=== PATIENT | female | born 1960 | race Caucasian/White ===

== ENCOUNTER 2020-02-13 12:57 | Outpatient (REF) | payer MEDICAID, SELFPAY ==
--- NOTE | 2020-02-13 | CT_ITS ---
EXAMINATION: CT CHEST WITHOUT CONTRAST CLINICAL INFORMATION: Right upper lobe lung cancer COMPARISON: Previous chest x-ray October 2019 and chest CTA August 1999 and TECHNIQUE: Multidetector volumetric CT imaging of the chest was done. Axial MIP volume rendering provided. Sagittal and coronal reformatted images were obtained. This CT examination was performed using dose optimization techniques as appropriate, variously including the following: *Automated exposure control *Adjustment of mA and/or kV according to patient size (this includes techniques or standardized protocols for targeted exams where dose is matched to indication/reason for exam; i.e. extremities or head) *Use of iterative reconstruction technique DLP: 236 mGy-cm FINDINGS: LUNGS: There are postsurgical changes to the right hemithorax following right upper lobe lobectomy with shift of the mediastinal structures to the right and elevation of the right hemidiaphragm. There is a surgical staple line seen in the right superior hilar region. There is abnormal soft tissue seen in the right middle lobe adjacent to the surgical staple line. This extends to the anterior pleural surface. Centrally, this is a oval-shaped and masslike measuring 3 x 4 cm for example axial image 204 series 7. Peripherally this appears more triangular or wedge-shaped. There is evidence of emphysema and multiple small cysts. There are numerous groundglass attenuation and heterogeneous partially solid partially cystic lesions in the lungs. Right: There is a 4 mm groundglass attenuation lesion in the right lower lobe axial image 201 series 7. There is a 1 x 1.2 cm groundglass attenuation lesion in the right lower lobe axial image 272 series 7. There is a peripheral or subpleural 5 mm groundglass attenuation lesion in the right lower lobe axial image 274 series 4. There is a heterogeneous partially groundglass partially solid lesion in the right lower lobe adjacent to the anterior diaphragmatic pleural surface. Groundglass attenuation component measures 1.1 x 2.1 cm in the more solid central component measures 0.4 x 0.9 cm axial image 406 series 4. There is a heterogeneous partially cystic partially groundglass attenuation lesion in the right lower lobe axial image 416 series 7. Left: There are multiple scattered groundglass attenuation lesions in the left upper lobe. The largest measures 8 mm axial image 150 series 7 and 9 mm adjacent to the aortic arch axial image 195 series 7.. There is a heterogeneous partially solid partially cystic peripheral or subpleural lesion in the left upper lobe measuring 1.7 cm axial image 268 series 7. There is a heterogeneous partially groundglass attenuation partially cystic lesion in the left lower lobe measuring 0.9 x 1.3 cm axial image 352 series 7. This has a denser semisolid component measuring 4 mm inferior laterally. There is a 6 mm groundglass attenuation lesion in the left lower lobe axial image 362 series 7. There is a small calcified 2 mm left lower lobe nodule axial image 462 series 7. MEDIASTINUM: There are multiple mediastinal lymph nodes. Larger lymph nodes are upper normal in size. Largest lymph node is a precarinal lymph node measuring 8 mm axial image 22 series 3 and subcarinal lymph node measuring 1.3 by centimeters axial image 26 series 3. Evaluation for hilar adenopathy is limited due to lack of contrast. The heart does not appear enlarged. There is minimal coronary artery calcification. The thoracic aorta is upper normal in size. There is no pericardial effusion. PLEURA: There is a trace right pleural effusion. AXILLA: There may be postsurgical changes to the right breast and axilla. UPPER ABDOMEN: Unremarkable. OSSEOUS STRUCTURES: There are postsurgical changes to the lower cervical spine. There are degenerative changes of the thoracic spine. There are several small sclerotic lesions in the thoracic spine and in the manubrium that are stable from August 2009 chest CTA probably represent benign bone islands. CT/CT chest wo con IMPRESSION: Postsurgical changes following right upper lobe lobectomy. Abnormal soft tissue adjacent to the surgical staple line in the right middle lobe extending from the pulmonary hilum to the anterior pleural surface. Differential would include recurrent disease and postsurgical change. Emphysema and cystic disease. Innumerable bilateral groundglass attenuation and heterogeneous pulmonary nodules suspicious for neoplasm. Upper normal-size mediastinal lymph nodes. Trace right pleural effusion.
== END 2020-02-13 12:58 | disposition home or self-care (01) ==
LOC: HO.CT 12:57
PROVIDERS: PCP Pediatrics; Visit Provider Surgery
DX: C34.11 Malignant neoplasm of upper lobe, right bronchus or lung (principal)
CPT/HCPCS: 71250

== ENCOUNTER 2020-02-16 09:32 | Day surgery (SDC) | payer MEDICAID, SELFPAY ==
[2020-02-12 13:26] VITALS: BMI 32.8
--- NOTE | 2020-02-15 10:13 | HO.ANESPROP2 ---
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 Seen by pulm 11/2019, stable Suboxone daily Rev'd with Dr Radha SANTIAGO Past Medical History Medical History Cancer COPD (chronic obstructive pulmonary disease) Depression GERD (gastroesophageal reflux disease) Hepatitis HTN (hypertension) Hx of multiple pulmonary nodules Surgical History Surgical History H/O colonoscopy History of back surgery History of lobectomy of lung Hx of breast lump removal Hx of hemorrhoidectomy Social History Social History Smoking Status: Current every day smoker Packs Per Day: 1 Cigarettes Per Day: 20.0 Years Smoked: 46 Smoked in Last 30 Days: Yes Use of substances other than those prescribed or required for medical reasons: No Advance Directives Information Provided: No Advance Directives on File: No (unknown) Meds Allergies Allergy/AdvReac Type Severity Reaction Status Date / Time lisinopril [LISINOPRIL] Allergy Severe SWELLING- Verified 02/12/20 13:33 ANGIOEDEMA codeine [CODEINE] Allergy Intermediate VOMITING/HIVES, Verified 02/16/20 10:08 vomiting, hives Home Medications Medication Instructions Recorded Confirmed Type aspirin [Aspirin Low Dose] 81 mg PO DAILY 02/12/20 02/16/20 History buprenorphine-naloxone [Suboxone] 1 film BUCCAL Q24H 02/12/20 02/12/20 History cholecalciferol (vitamin D3) 50 mcg PO DAILY 02/12/20 02/12/20 History [Vitamin D3] diltiazem HCl [Diltia XT] 180 mg PO DAILY 02/12/20 02/12/20 History metoprolol ta-hydrochlorothiaz 1 tab PO DAILY 02/12/20 02/12/20 History milnacipran [Savella] 50 mg PO BID 02/12/20 02/12/20 History omeprazole [Prilosec] 20 mg PO DAILY 02/12/20 02/12/20 History paroxetine HCl 60 mg PO DAILY 02/12/20 02/12/20 History simvastatin 20 mg PO BEDTIME 02/12/20 02/12/20 History umeclidinium [Incruse Ellipta] 1 inh INHALATION DAILY 02/12/20 02/12/20 History Exam Exam Date and Time: February 15, 2020 1013 Height,Weight and Vital Signs: Height 5 ft 8.5 in Weight 99.337 kg Assessment and Plan Assessment Anesthesia Assessment: Chart Reviewed Documented by User: Felicita Hendrickson 02/16/20 10:36 PMFSH Past Medical History Medical History Cancer COPD (chronic obstructive pulmonary disease) Depression GERD (gastroesophageal reflux disease) Hepatitis HTN (hypertension) Hx of multiple pulmonary nodules Surgical History Surgical History H/O colonoscopy History of back surgery History of lobectomy of lung Hx of breast lump removal Hx of hemorrhoidectomy Social History Social History Smoking Status: Current every day smoker Packs Per Day: 1 Cigarettes Per Day: 20.0 Years Smoked: 46 Smoked in Last 30 Days: Yes Use of substances other than those prescribed or required for medical reasons: No Advance Directives Information Provided: No Advance Directives on File: No (unknown) Meds Allergies Allergy/AdvReac Type Severity Reaction Status Date / Time lisinopril [LISINOPRIL] Allergy Severe SWELLING- Verified 02/12/20 13:33 ANGIOEDEMA codeine [CODEINE] Allergy Intermediate VOMITING/HIVES, Verified 02/16/20 10:08 vomiting, hives Home Medications Medication Instructions Recorded Confirmed Type aspirin [Aspirin Low Dose] 81 mg PO DAILY 02/12/20 02/16/20 History buprenorphine-naloxone [Suboxone] 1 film BUCCAL Q24H 02/12/20 02/12/20 History cholecalciferol (vitamin D3) 50 mcg PO DAILY 02/12/20 02/12/20 History [Vitamin D3] diltiazem HCl [Diltia XT] 180 mg PO DAILY 02/12/20 02/12/20 History metoprolol ta-hydrochlorothiaz 1 tab PO DAILY 02/12/20 02/12/20 History milnacipran [Savella] 50 mg PO BID 02/12/20 02/12/20 History omeprazole [Prilosec] 20 mg PO DAILY 02/12/20 02/12/20 History paroxetine HCl 60 mg PO DAILY 02/12/20 02/12/20 History simvastatin 20 mg PO BEDTIME 02/12/20 02/12/20 History umeclidinium [Incruse Ellipta] 1 inh INHALATION DAILY 02/12/20 02/12/20 History Exam Airway Mallampati Class: II TM Dist: >3cm Neck ROM: Full Heart: rrr Lungs: cta Assessment and Plan Assessment Anesthesia Assessment: Anesthesia Plan Discussed and Chart Reviewed Final Anesthetic Review NPO: Yes ASA Class: III Final Preanesthetic Review: No Changes in Pt Med Stat, Meds/Allgs Chart Reviewed, Consent Obtained/Reviewed and Anes Risks/Benef Reviewed Patient Risk: Intermediate Procedure Risk: Low Assessment/Block/Sedation in SS: Assess/Block/Sedation-SS Anesthetic Plan Anesthetic Plan: GA
[2020-02-16] VITALS (12 sets, daily range): BP systolic 116–156; BP diastolic 65–88; PULSE 53–70; RESP 10–18; TEMP 35.9–36.1; O2SAT 91–100; BMI 32.8
[2020-02-16] MEDS: Lactated Ringers 1,000 ML 100 ML IVCONT (10:10)
--- NOTE | 2020-02-16 10:16 | MHC.SHP ---
Pre-Procedural Eval Section B Chief Complaint: Internal and External prolapsed hemorrhoids Details of Present Illness: has frequent pain and discomfort with hemorrhoids Relevant Family History (Specify if Yes): No Relevant Social History: Tobacco Use Present Medications: see Short Stay Collaborative assessment Medical History: Significant History (HTN, COPD, hx of breast CA) History of Previous Operations: Relevant previous surgery/procedure and date(s) (hemorrhoidectomy) Allergies: Allergies Allergy/AdvReac Type Severity Reaction Status Date / Time lisinopril [LISINOPRIL] Allergy Severe SWELLING- Verified 02/12/20 13:33 ANGIOEDEMA codeine [CODEINE] Allergy Intermediate VOMITING/HIVES, Verified 02/16/20 10:08 vomiting, hives Review of Systems Sugical H&P ROS: Negative: Constitution, Cardiovascular, Respiratory, Neurological, Psychiatric, Hem-Onc, Allergic/Immunologic, Gastrointestinal, Genitourinary, Musculoskeletal, Integumentary, Endocrine and Eyes/Ears/Nose/Throat Exam Surgical H&P Exam: Normal: HEENT, Normal: Heart, Normal: Lungs, Normal: Extremities, Normal: Abdomen, Normal: Skin and Normal: Neurological Plan Diagnosis/Plan: Unchanged Patient has been examined and remains a candidate for the planned procedure
--- NOTE | 2020-02-16 11:02 | PM.OP ---
Brief Operative Note Date of procedure: 02/16/20 Pre-op diagnosis: iint and external hemorrhoids with pain Post-op diagnosis: same Procedure: EUA hemorrhoidectomy x 2 Surgeon: Oleg Bassett MD Anesthesia: GLMA Estimated blood loss (mL): 10 Pathology: other (hemorrhoids) Condition: stable Disposition: PACU
--- NOTE | 2020-02-16 13:15 | OP_ITS ---
SURGEON: Oleg Bassett MD INDICATIONS: The patient is a 59-year-old female with internal and external hemorrhoids that is being causing her pain and discomfort. She had previously undergone hemorrhoidectomy for multiple hemorrhoids, but she had residual hemorrhoidal columns that have remained problematic, so she wanted to proceed with hemorrhoidectomy. She understood technique of the procedure as well as the risks, benefits, and alternatives. PREOPERATIVE DIAGNOSIS: POSTOPERATIVE DIAGNOSIS: PROCEDURE PERFORMED: Exam under anesthesia, hemorrhoidectomy x2 columns. ESTIMATED BLOOD LOSS: COMPLICATIONS: ANESTHESIA: ASSISTANTS: SPECIMENS: PREOPERATIVE DIAGNOSES: Internal and external hemorrhoids, and pain and bleeding. POSTOPERATIVE DIAGNOSES: Internal and external hemorrhoids, and pain and bleeding. DESCRIPTION OF PROCEDURE: She was brought to the operating room, placed in prone sunny-knife position under anesthesia via endotracheal tube. The perianal area was prepped and draped in usual sterile fashion. The buttocks have been retracted with wide tape laterally. The examination of the anal orifice revealed bulky hemorrhoidal columns on the right, with the right side more than the left. I inserted the Nancy-Omalley retractor. I examined the anal canal circumferentially. Again, the hemorrhoidal columns were noted above. The left one was mostly external hemorrhoid, but the right one was mix of both internal and external hemorrhoids and was much more bulky. I positioned a Estrada grasper at the hemorrhoidal column on the left. I made a [id number] stitch at the pedicle. This was done using chromic 3-0 stitch. I made an incision around this hemorrhoidal column to the perianal skin using blade #15. I excised this hemorrhoidal column above the plane of sphincters using Metzenbaum scissors. I closed the incision with running chromic 3-0 stitch. There was note of good hemostasis. I applied 2 Estrada graspers at the bulky hemorrhoidal column on the right side. I made a [id number] stitch at the pedicle past the dentate line. I made an incision around this hemorrhoidal column to the perianal skin with blade #15 and I excised this hemorrhoidal column above the plane of sphincters using Metzenbaum scissors all the way to the pedicle. I closed the incision with running chromic 3-0 stitch. Additional hemostatic sutures, [id number] were placed as well. Once hemostasis was ensured, proceeded to infiltrate the perianal area with Marcaine 0.5% for postop analgesia. I inserted a Gel-Foam packing in the anal canal for further hemostasis. The procedure was completed. The patient tolerated procedure well. There were no complications noted. Initial and final counts of sponge and instruments were correct. Estimated blood loss was about 10 mL. The patient was extubated without difficulty and transferred to recovery room with stable vital signs. MD JAIME Delaney/GIBSON / [id number]
--- NOTE | 2020-02-16 13:53 | HO.POSTANES ---
Post Anesthesia Evaluation Post Anesthesia Evaluation Vital Signs: Vital Signs Temp Pulse Resp BP Pulse Ox 02/16/20 13:15 96.6 F L 70 16 118/65 96 02/16/20 12:45 60 12 124/69 91 L 02/16/20 12:30 58 10 L 128/74 91 L 02/16/20 12:15 58 16 148/88 H 97 02/16/20 12:00 53 16 136/82 97 02/16/20 11:45 53 16 128/77 99 02/16/20 11:30 55 16 134/80 99 02/16/20 11:15 55 16 122/75 100 02/16/20 11:10 56 16 116/73 97 02/16/20 11:05 57 16 120/75 97 02/16/20 11:00 96.9 F 54 16 134/76 97 02/16/20 10:07 97.0 F 60 18 156/87 H 97 Anesthesia: General LMA Mental Status: Awake Pain Control: Satisfactory Nausea/Vomiting: None Hydration: Adequate Anesthesia-Related Issues: No Anes. Related Issues
== END 2020-02-16 14:20 | disposition home or self-care (01) ==
PROVIDERS: PCP Pediatrics; Visit Provider Surgery
PROC: (CPT 46260; principal; 2020-02-16 09:20)
DX: K64.8 Other hemorrhoids (principal); K64.4 Residual hemorrhoidal skin tags; I10 Essential (primary) hypertension; J44.9 Chronic obstructive pulmonary disease, unspecified; F11.20 Opioid dependence, uncomplicated; F17.210 Nicotine dependence, cigarettes, uncomplicated; Z85.3 Personal history of malignant neoplasm of breast; Z90.2 Acquired absence of lung [part of]; Z88.8 Allergy status to other drugs, medicaments and biological substances; Z79.82 Long term (current) use of aspirin; Z79.899 Other long term (current) drug therapy
CPT/HCPCS: 46260; 88304; J1100; J2250; J2405; J3010

== ENCOUNTER → 2020-02-23 10:48 | Outpatient (BNVA) | payer MEDICAID, SELFPAY | PROVIDERS: PCP Pediatrics; Visit Provider Surgery | DX: C34.11 Malignant neoplasm of upper lobe, right bronchus or lung (principal); R91.8 Other nonspecific abnormal finding of lung field | CPT/HCPCS: 99214 ==

== ENCOUNTER → 2020-02-29 13:03 | Outpatient (BNVA) | payer MEDICAID, SELFPAY | PROVIDERS: PCP Pediatrics; Referring Provider Pediatrics; Visit Provider Internal Medicine Pulmonary Disease | DX: Z09 Encounter for follow-up examination after completed treatment for conditions other than malignant neoplasm (principal); Z87.19 Personal history of other diseases of the digestive system; C34.11 Malignant neoplasm of upper lobe, right bronchus or lung; J44.9 Chronic obstructive pulmonary disease, unspecified; R91.8 Other nonspecific abnormal finding of lung field; Z85.3 Personal history of malignant neoplasm of breast; Z79.899 Other long term (current) drug therapy; Z90.2 Acquired absence of lung [part of] | CPT/HCPCS: 99212 ==

== ENCOUNTER 2020-06-26 13:08 | Outpatient (REF) | payer MEDICAID, SELFPAY ==
--- NOTE | ~2020-06-26 | CT_ITS ---
EXAMINATION: CT CHEST WITHOUT CONTRAST CLINICAL INFORMATION: Malignant neoplasm of upper lobe or right bronchus. COMPARISON: None TECHNIQUE: Multidetector volumetric CT imaging of the chest was done. Axial MIP volume rendering provided. Sagittal and coronal reformatted images were obtained. This CT examination was performed using dose optimization techniques as appropriate, variously including the following: *Automated exposure control *Adjustment of mA and/or kV according to patient size (this includes techniques or standardized protocols for targeted exams where dose is matched to indication/reason for exam; i.e. extremities or head) *Use of iterative reconstruction technique DLP: 241 mGy-cm FINDINGS: METER READER: Loss of lung volume with elevated right hemidiaphragm. LUNGS: There is mild emphysematous changes of lungs with multiple cysts. There are postsurgical changes along the right upper lobe following lobectomy. Abnormal soft tissue thickening along the right middle lobe adjacent to surgical staple line is again visualized. Previously it measured 3 x 4 cm centrally it has decreased in size and now measures 4.0 x 1.6 cm on axial image 204/7. The mass appears visually smaller as well. There are radiating strands extending from the soft mass to the pleura likely representing chronic scarring or postsurgical changes. There is 4 mm groundglass nodule right upper lobe axial image to 09, series 7 is stable. There is a 1.4 cm groundglass attenuation in right lower lobe, axial image 272, series 7. There is a 2.2 cm groundglass attenuation in the right lower lobe adjacent diaphragm on axial image 423/7, stable. There is subpleural thickening in the right lower lobe likely scarring. There are multiple left lung groundglass lesions. There are 1.1 cm lesion left lower lobe image 358/7, few scattered groundglass densities measuring 1 cm in left lower lobe, axial image 287/7, in subpleural location in the lingula measuring 1.1 cm image 281/7. A slightly larger 1.7 cm pleural groundglass density left upper lobe image 268/7. Also visualized is a small calcified 2 mm left lower lobe, axial image 475/7 granuloma, stable. MEDIASTINUM: The thyroid lobes are symmetrical and normal. The central trachea and bronchi are widely patent. Heart size and the great vessels are normal caliber. There are small shotty lymph nodes in the mediastinum. The subcarinal lymph node is smaller as well measuring 1 cm. Previously it measured 1.3 cm. PLEURA: There is no pleural effusion. No pleural mass or thickening. AXILLA: Punctate nodules are seen in the axilla. There is an 8 mm nodule right breast with associated 5 mm calcification and mild skin retraction on axial image 20/3. It is unchanged to previous study. UPPER ABDOMEN: Visualized liver, spleen, pancreas and bilateral adrenal glands are unremarkable. OSSEOUS STRUCTURES: No lytic or sclerotic process seen. There is mild ventral spondylosis dorsal spine. CT/CT chest wo con IMPRESSION: 1. Postoperative changes following right upper lobectomy. Soft tissue mass seen along the suture line is visually as well as by measurement has decreased in size. 2. Multiple bilateral lower lobe groundglass nodules with cystic and solid components are stable. A small left lower lobe granuloma is stable as well. 3. Small shotty lymph nodes in the mediastinum are stable. The subcarinal lymph node has improved in size. 4. Emphysema and cystic changes in both lungs are stable. There is no pleural effusion at this time.
== END 2020-06-26 13:09 | disposition home or self-care (01) ==
LOC: HO.CT 13:08
PROVIDERS: Visit Provider Surgery
DX: C34.11 Malignant neoplasm of upper lobe, right bronchus or lung (principal)
CPT/HCPCS: 71250

== ENCOUNTER → 2020-07-05 10:49 | Outpatient (BNVA) | payer MEDICAID, SELFPAY | PROVIDERS: PCP Pediatrics; Visit Provider Surgery | DX: J44.9 Chronic obstructive pulmonary disease, unspecified (principal); C34.11 Malignant neoplasm of upper lobe, right bronchus or lung; R91.8 Other nonspecific abnormal finding of lung field | CPT/HCPCS: 99212 ==

== ENCOUNTER 2020-07-31 12:53 | Outpatient (REF) | payer MEDICAID, SELFPAY ==
[2020-07-31 13:35] LABS: MANUAL DIFF FLAG NO
[2020-07-31 13:39] LABS: Basophils Absolute Auto 0.1 X10*3/uL (0.0-0.2); Basophils Percent Auto 0.9 % (0-2); Eosinophils Absolute Auto 0.2 X10*3/uL (0.0-0.4); Hematocrit 39.2 % (37-47); Hemoglobin 12.8 g/dl (12.0-16.0); Imm Gran Abs Auto 0.04 X10*3/uL (0.00-0.03); Imm Gran Pct Auto 0.5 % (0.0-0.4); Lymphocytes Absolute Auto 2.1 X10*3/uL (1.2-4.9); Lymphocytes Percent Auto 24.1 % (20-40); Mean Corpuscular HGB Conc 32.7 g/dl (31.0-35.0); Mean Corpuscular Hemoglobin 29.4 pg (27.0-33.0); Mean Corpuscular Volume 89.9 fL (80-98); Mean Platelet Volume 10.7 fL (9.4-12.3); Monocytes Absolute Auto 0.9 X10*3/uL (0.1-1.2); Neutrophils Absolute Auto 5.5 X10*3/uL (2.0-8.3); Neutrophils Percent Auto 62.5 % (45-73); Platelet Count 234 X10*3/uL (160-400); Red Blood Count 4.36 X10*6/uL (4.20-5.50); Red Cell Distribution Width 13.8 % (11.0-16.0); White Blood Count 8.9 X10*3/uL (4.8-10.8)
[2020-07-31 14:04] LABS: Alanine Aminotransferase 13 U/L (0-31); Albumin Level 4.1 g/dL (3.5-5.0); Alkaline Phosphatase 76 U/L (39-117); Anion Gap 15 (12-20); Aspartate Amino Transferase 15 U/L (5-31); Bilirubin Direct 0.2 mg/dL (0.0-0.5); Bilirubin Total 0.5 mg/dL (0.0-1.0); Blood Urea Nitrogen 15 mg/dL (9-16); Calcium 9.1 mg/dL (8.4-10.2); Carbon Dioxide 30 mmol/L (22-29); Chloride 99 mmol/L (96-108); Cholesterol 169 mg/dL; Estimated Glomerular Filt Rate > 60; Glucose Random 117 mg/dL (60-115); HDL Cholesterol 35 mg/dL; LDL Cholesterol Calculated 108 mg/dl; Potassium 3.6 mmol/L (3.3-5.1); Sodium 140 mmol/L (135-145); Total Protein 7.2 g/dL (6.5-8.0); Triglycerides 131 mg/dL
[2020-07-31 14:26] LABS: TSH reflex Free T4 5.08 uIU/mL (0.32-4.0); Vitamin D 25-OH Total 28.4 ng/mL (>30)
[2020-07-31 15:09] LABS: Free T4 (Free Thyroxine) 1.01 ng/dL (0.71-1.85)
[2020-07-31 15:40] LABS: Microalbum/Creatinine Ratio Ur 6.7 ug/mg cr
[2020-08-02 14:11] LABS: HCV Log PCR <1.18 NOT DETECTED Log IU/mL (NOT DETECTED); HepC Viral Load <15 NOT DETECTED IU/mL (NOT DETECTED)
== END 2020-07-31 12:54 | disposition home or self-care (01) ==
LOC: HO.LAB 12:53
PROVIDERS: PCP Pediatrics; Visit Provider Pediatrics
DX: B19.20 Unspecified viral hepatitis C without hepatic coma (principal); C34.11 Malignant neoplasm of upper lobe, right bronchus or lung; I10 Essential (primary) hypertension; F17.290 Nicotine dependence, other tobacco product, uncomplicated
CPT/HCPCS: 36415; 80053; 80061; 80076; 82043; 82248; 82306; 82550; 84439; 84443; 85025; 87522

== ENCOUNTER → 2020-10-31 12:59 | Outpatient (BNVA) | payer MEDICAID, SELFPAY | PROVIDERS: PCP Pediatrics; Visit Provider Internal Medicine Pulmonary Disease | DX: J44.9 Chronic obstructive pulmonary disease, unspecified (principal) | CPT/HCPCS: 99212 ==

== ENCOUNTER 2020-12-26 13:46 | Outpatient (REF) | payer MEDICAID, SELFPAY ==
--- NOTE | ~2020-12-26 | CT_ITS ---
EXAMINATION: CT CHEST WITHOUT CONTRAST CLINICAL INFORMATION: Malignant neoplasm of right upper lobe bronchus COMPARISON: Previous chest CT most recent June 2020 TECHNIQUE: Multidetector volumetric CT imaging of the chest was done. Axial MIP volume rendering provided. Sagittal and coronal reformatted images were obtained. This CT examination was performed using dose optimization techniques as appropriate, variously including the following: *Automated exposure control *Adjustment of mA and/or kV according to patient size (this includes techniques or standardized protocols for targeted exams where dose is matched to indication/reason for exam; i.e. extremities or head) *Use of iterative reconstruction technique DLP: 429 mGy-cm FINDINGS: LUNGS: There are postoperative changes from right upper lobe lobectomy. There are emphysematous changes. There is masslike consolidation in the right middle lobe adjacent to the surgical suture line. This is slightly decreased compared to prior exams for example measuring 1.5 x 4 cm axial image 166 series 5 compared to 2 x 4.2 cm axial image 2 06/21/2020 exam.. There are large cystic areas seen in the right lower lobe measuring 3 cm axial image 113 and 142 series 5. There is a 4 mm groundglass attenuation right lower lobe nodule axial image 160 series 5 that is stable. There is a heterogeneous or semisolid 6 mm nodule in the right lower lobe inferior to one of the 3 cm cystic spaces axial image 172 series 5 that is new or increased. There is a groundglass attenuation are semisolid peripheral right lower lobe nodule. This measures 1.5 cm axial image 213 series 3. More central semisolid component measures 6 mm axial image 202 series 5. This is new or slightly increased from prior exam. There is a 1 x 1.8 cm groundglass attenuation right lower lobe nodule adjacent to the anterior diaphragmatic pleural surface axial image 314 series 5 that is stable. There is focal bronchiectasis and cystic change in the posterior basal right lower lobe near the posterior diaphragmatic pleural surface axial image 330 series 5 that is unchanged. There are scattered small groundglass attenuation areas in the left upper and lower lobes. Largest measures 6 mm axial image 102 and 139 and 260 series 5. These do not appear appreciably changed. There is a peripheral or subpleural cavitary left upper lobe nodule that measures 1.5 x 1.5 x 2.2 cm axial image 198 and sagittal reconstructed image 25. This measured 1.5 x 1.5 x 1.8 cm on prior exam and is slightly increased in size. This demonstrates increased wall thickening inferiorly. There is heterogeneous mixed cystic and reticular nodule in the left lower lobe measuring 1 cm axial image 253 series 5 that is unchanged. MEDIASTINUM: There are small mediastinal lymph nodes that are stable. No enlarged hilar or mediastinal lymph nodes are seen. The thoracic aorta is upper normal size. The heart does not appear enlarged. There is no pericardial effusion. PLEURA: There is no pleural effusion. No pleural mass or thickening. AXILLA: There are postsurgical changes to the right breast. No chest wall mass or enlarged axillary nodes are seen. UPPER ABDOMEN: Unremarkable. OSSEOUS STRUCTURES: There are degenerative changes of the spine. There are small sclerotic densities spine. There are stable probably represent small bone island. CT/CT chest wo con IMPRESSION: Stable postsurgical changes following right upper lobe lobectomy. Continued interval decrease in the masslike consolidation in the right middle lobe adjacent to the surgical suture line. 2 new or increasing suspicious-appearing heterogeneous right lower lobe nodules. Interval increase in the suspicious-appearing cavitary left upper lobe nodule. Numerous bilateral small groundglass attenuation nodules.
== END 2020-12-26 13:47 | disposition home or self-care (01) ==
LOC: HO.CT 13:46
PROVIDERS: PCP Pediatrics; Visit Provider Surgery
DX: C34.11 Malignant neoplasm of upper lobe, right bronchus or lung (principal)
CPT/HCPCS: 71250

== ENCOUNTER → 2021-01-03 11:03 | Outpatient (BNVA) | payer MEDICAID, SELFPAY | PROVIDERS: PCP Pediatrics; Visit Provider Surgery | DX: R91.1 Solitary pulmonary nodule (principal); Z90.2 Acquired absence of lung [part of]; Z79.899 Other long term (current) drug therapy | CPT/HCPCS: 99212 ==

== ENCOUNTER 2021-01-09 13:05 | Outpatient (REF) | payer MEDICAID, SELFPAY ==
--- NOTE | 2021-01-09 17:00 | PFT_ITS ---
FLOWS: FEV1 80% of predicted at 2.31 L. FVC 98% of predicted at 3.68 L. FEV1 to FVC ratio of 0.63. No bronchodilator response. LUNG VOLUMES: Total lung capacity 114% of predicted at 6.37 L. Residual volume 114% of predicted at 2.48 L. Slow vital capacity 114% of predicted at 3.89 L. Expiratory reserve volume 98% of predicted at 0.99 L. Diffusion capacity is moderately decreased. IMPRESSION: Mild obstructive ventilatory defect with no bronchodilator response. Decreased diffusion capacity suggests emphysema. Den Morales MD AP/MODL / [id number]
== END 2021-01-09 13:06 | disposition home or self-care (01) ==
LOC: HO.RESP 13:05
PROVIDERS: PCP Pediatrics; Visit Provider Surgery
DX: C34.11 Malignant neoplasm of upper lobe, right bronchus or lung (principal)
CPT/HCPCS: 94060; 94727; 94729

== ENCOUNTER → 2021-02-20 14:12 | Outpatient (BNV) | payer MEDICAID, SELFPAY | PROVIDERS: PCP Pediatrics; Referring Provider Surgery; Visit Provider Internal Medicine | DX: C34.11 Malignant neoplasm of upper lobe, right bronchus or lung (principal); C34.12 Malignant neoplasm of upper lobe, left bronchus or lung | CPT/HCPCS: 99204; 99212; 99213; 99214; 99215 ==

== ENCOUNTER 2021-03-03 09:24 | Outpatient (REF) | payer MEDICAID, SELFPAY ==
[2021-03-03 09:47] LABS: MANUAL DIFF FLAG NO
[2021-03-03 09:49] LABS: Basophils Absolute Auto 0.1 X10*3/uL (0.0-0.2); Eosinophils Absolute Auto 0.2 X10*3/uL (0.0-0.4); Eosinophils Percent Auto 2.8 % (0-4); Hematocrit 36.2 % (37.0-47.0); Hemoglobin 12.4 g/dl (12.0-16.0); Imm Gran Abs Auto 0.02 X10*3/uL (0.00-0.03); Imm Gran Pct Auto 0.3 % (0.0-0.4); Lymphocytes Absolute Auto 2.2 X10*3/uL (1.2-4.9); Lymphocytes Percent Auto 30.4 % (20-40); Mean Corpuscular HGB Conc 34.3 g/dl (31.0-35.0); Mean Corpuscular Volume 90.5 fL (80.0-98.0); Mean Platelet Volume 9.8 fL (9.4-12.3); Monocytes Absolute Auto 0.7 X10*3/uL (0.1-1.2); Monocytes Percent Auto 10.2 % (2-11); Neutrophils Percent Auto 55.3 % (45-73); Platelet Count 251 X10*3/uL (160-400); Red Cell Distribution Width 14.3 % (11.0-16.0); White Blood Count 7.2 X10*3/uL (4.8-10.8)
[2021-03-03 10:29] LABS: Alanine Aminotransferase 26 U/L (0-31); Albumin Level 3.9 g/dL (3.5-5.0); Alkaline Phosphatase 68 U/L (39-117); Anion Gap 12 (12-20); Aspartate Amino Transferase 27 U/L (5-31); Bilirubin Total 0.3 mg/dL (0.0-1.0); Blood Urea Nitrogen 13 mg/dL (9-16); Calcium 9.1 mg/dL (8.4-10.2); Carbon Dioxide 31 mmol/L (22-29); Chloride 103 mmol/L (96-108); Estimated Glomerular Filt Rate > 60; Glucose Random 132 mg/dL (60-115); Potassium 3.3 mmol/L (3.3-5.1); Sodium 143 mmol/L (135-145); Total Protein 6.7 g/dL (6.5-8.0)
[2021-03-03 10:57] LABS: Lactate Dehydrogenase 288 U/L (122-220)
== END 2021-03-03 09:25 | disposition home or self-care (01) ==
LOC: HO.LAB 09:24
PROVIDERS: PCP Pediatrics; Visit Provider Internal Medicine
DX: C34.11 Malignant neoplasm of upper lobe, right bronchus or lung (principal)
CPT/HCPCS: 36415; 80053; 82378; 83615; 85025

== ENCOUNTER 2021-03-11 10:17 | Outpatient (REF) | payer MEDICAID, SELFPAY | END 2021-03-11 10:18 | disposition home or self-care (01) | LOC: HO.CT 10:17 | PROVIDERS: Visit Provider Internal Medicine | DX: Z13.89 Encounter for screening for other disorder (principal) ==

== ENCOUNTER 2021-03-12 12:29 | Outpatient (REF) | payer MEDICAID, SELFPAY ==
--- NOTE | ~2021-03-12 | CT_ITS ---
EXAMINATION: CT ABDOMEN AND PELVIS WITH CONTRAST CLINICAL INFORMATION: Abdominal pain COMPARISON: PET/CT scan 03/11/2021 TECHNIQUE: Multidetector volumetric images were obtained from the superior aspect of the liver through the pubic symphysis following administration 85 mL of Omnipaque 350 intravenous contrast. Sagittal and coronal reformatted images were obtained on the technologist's workstation. Oral contrast: Yes This CT examination was performed using dose optimization techniques as appropriate, variously including the following: *Automated exposure control *Adjustment of mA and/or kV according to patient size (this includes techniques or standardized protocols for targeted exams where dose is matched to indication/reason for exam; i.e. extremities or head) *Use of iterative reconstruction technique DLP: 567 mGy-cm FINDINGS: LUNG BASES: There is a small left pleural effusion or pleural thickening. This is decreased from previous CT scan. LIVER, GALLBLADDER, AND BILIARY TREE: There are 2 small liver lesions measuring 7 mm in the inferior posterior segment of the right lobe of the liver axial image 31 series 3 and 4 mm high in the dome axial image 7 series 3 views are difficult to characterize due to small size. The liver is slightly low in attenuation suggestive of fatty infiltration. The liver is upper normal in size, particularly the left lobe and caudate lobe.. The gallbladder is unremarkable. There is no biliary duct dilatation. PANCREAS: Unremarkable. SPLEEN: Unremarkable. ADRENAL GLANDS: There is a 1 x 1.5 cm right adrenal lesion. There may be a small left adrenal nodule measuring 0.9 x 1.1 cm. These did not demonstrate increased uptake on PET CT scan. KIDNEYS AND URETERS: The kidneys are normal in size, shape, and attenuation. No hydronephrosis, hydroureter, or calculi seen. No perinephric stranding. BLADDER: Unremarkable. GASTROINTESTINAL TRACT: The small and large bowel are unremarkable. The appendix is unremarkable. ABDOMINAL WALL: There is a small umbilical hernia containing fat. LYMPH NODES: Normal. VASCULAR: Unremarkable. PELVIC VISCERA: The uterus appears to have been removed. No pelvic mass is seen. OSSEOUS STRUCTURES: There are degenerative changes of the spine. There is a healing left lateral ninth and 10th rib fracture. There are small sclerotic lesions in the spine and pelvis. CT/CT abdomen pelvis w con IMPRESSION: No acute findings in the abdomen and pelvis. 2 small low-attenuation liver lesions difficult characterize due to small size. Small bilateral adrenal nodules. Multiple small sclerotic bone lesions. These findings did not demonstrate increased uptake on recent bone scan. Fleischner guidelines were followed.
[2021-03-12] MEDS: iohexoL 350 MG/ML 100 ML INFUS..BTL IV (15:16)
[2021-03-12] MEDS: Barium Sulfate Oral (Mocha) 450 ML ORAL.SUSP 900 ML PO (15:17)
== END 2021-03-12 12:30 | disposition home or self-care (01) ==
LOC: HO.CT 12:29
PROVIDERS: Visit Provider Internal Medicine
DX: R10.9 Unspecified abdominal pain (principal); C34.11 Malignant neoplasm of upper lobe, right bronchus or lung
CPT/HCPCS: 74177; Q9967

== ENCOUNTER → 2021-05-27 13:16 | Outpatient (BNVA) | payer MEDICAID, SELFPAY | PROVIDERS: PCP Pediatrics; Visit Provider Internal Medicine Pulmonary Disease | DX: J44.9 Chronic obstructive pulmonary disease, unspecified (principal); C34.91 Malignant neoplasm of unspecified part of right bronchus or lung; C34.92 Malignant neoplasm of unspecified part of left bronchus or lung; Z79.899 Other long term (current) drug therapy | CPT/HCPCS: 99212 ==

== ENCOUNTER 2021-09-17 10:42 | Outpatient (REF) | payer MEDICAID, SELFPAY ==
--- NOTE | ~2021-09-17 | CT_ITS ---
EXAMINATION: CT CHEST, ABDOMEN AND PELVIS WITH CONTRAST CLINICAL INFORMATION: Right upper lobe neoplasm, status post surgery and radiation therapy. For surveillance. COMPARISON: CT abdomen 03/12/2021. PET/CT 03/11/2021. TECHNIQUE: 5 mm thin axial and reformatted 3 mm thin sagittal and coronal images of chest, abdomen and pelvis were obtained following IV 100 mL Omnipaque 300. DLP: 717 mGy-cm FINDINGS: CHEST: Lungs: There is extensive fine reticular interstitial changes seen in the right upper lobe likely postradiation changes with postsurgical thick scar in the right upper lobe and adjacent to right suprahilar region. There is a new developing right lower lobe mass which measures 1.7 x 1.3 cm on axial image 27/4 suspicious for new metastatic lesion not visualized on the last PET study. There is a subpleural right lower lobe mediastinal-based ground-glass attenuation measuring 1.4 x 1.1 cm, present on the previous exam, same size. There is a second lesion in the right lower lobe posterobasal segment measuring 1.6 x 1.4 cm on axial image 44/4, suspicious. There are postsurgical sutures in the left midlung from previous intervention. No focal lesion, nodule or mass seen in the left lung. There is loss of right lung volume. Mediastinum: The thyroid lobes are symmetrical and normal. The central trachea and the bronchi are widely patent. There are numerous lymph nodes in the pretracheal and subcarinal region. The subcarinal lymph nodes largest measuring 1.3 x 2.1 cm axial image 30/7 and the largest pretracheal lymph node measures 1.5 x 1.5 cm axial image 24/3. Pleura: There is minimal right posterior pleural thickening but no pleural effusion seen. Axilla: No abnormal-sized lymph node seen in the axilla. Punctate calcification is seen in the right breast. Rest of the chest wall is unremarkable. Osseous structures: There is a left lateral 8th rib sclerotic density likely healing rib fracture, it is unchanged to previous study. ABDOMEN AND PELVIS: Liver, biliary tract and gallbladder: The liver is homogeneous density, normal size and contour. No intrahepatic ductal dilatation seen. The gallbladder is unremarkable. Spleen: Unremarkable. Small accessory splenule is suspected along lower anterior tip. Pancreas: Unremarkable. Adrenal glands: There is a 1.4 cm lesion measuring 47 Hounsfield units, stable. The left adrenal gland is unremarkable. Kidneys and ureters: Both kidney nephrograms reveal mild thinning of cortex in both upper lobes. No focal enhancing lesion, cyst or hydronephrosis seen. Lymphovascular structures: The abdominal aorta is of normal caliber. No abnormal-sized retroperitoneal or mesenteric lymph node seen. GI tract: There is scattered stool and gas seen throughout the colon without significant distention. The small bowel loops are normal caliber. The appendix is normal caliber. No free air or free fluid seen. Abdominal wall: There is a small umbilical hernia containing fat. Pelvis: The urinary bladder is unremarkable. No free fluid seen. Osseous structures: No aggressive lytic or sclerotic process seen. CT/CT abdomen pelvis w con IMPRESSION: Postsurgical changes right upper lobe and left midlung. There is new extensive fine interstitial markings throughout right lobe likely postradiation changes. There is loss of right lung volume with minimal right posterior pleural thickening. There are 2 worrisome lesions in the right lower lobe likely metastatic disease. Recommend PET/CT exam for further evaluation. There are reactive but slightly borderline abnormal lymph nodes in the mediastinum.
[2021-09-17 11:17] LABS: Blood Urea Nitrogen 18 mg/dL (9-16); Estimated Glomerular Filt Rate 58
[2021-09-17] MEDS: iohexoL 300 MG/ML 100 ML INFUS..BTL IV (12:24)
== END 2021-09-17 10:43 | disposition home or self-care (01) ==
LOC: HO.CT 10:42
PROVIDERS: PCP Pediatrics; Visit Provider Internal Medicine
DX: C34.11 Malignant neoplasm of upper lobe, right bronchus or lung (principal)
CPT/HCPCS: 36415; 71260; 74177; 82565; 84520; Q9967

== ENCOUNTER 2021-10-14 10:20 | Outpatient (REF) | payer MEDICAID, SELFPAY ==
--- NOTE | ~2021-10-14 | PE_ITS ---
EXAMINATION: Fluorine-18 FDG PET/CT Scan CLINICAL INDICATION: Subsequent treatment management. Left lung cancer. PROCEDURE: 60 minutes following the intravenous administration of 15.4 mCi of fluorine 18 FDG, images from the base of the skull to the mid thighs were obtained using a combined PET/CT scanner with CT scan based attenuation correction. No oral contrast was administered. No intravenous contrast was administered. Transverse, coronal, sagittal, and volume reconstruction projections were obtained. The patient's blood glucose as determined by a finger stick, was 139 mg/dl immediately prior to injection. Total CT exam dose-length product 910.64 mGy-cm * These CT images were obtained using dose optimization techniques as appropriate, variously including the following: Automated exposure control * Adjustment of mA and/or kV according to patient size (this includes techniques or standardized protocols for targeted exams where dose is matched to indication/reason for exam; i.e. extremities or head) * Use of iterative reconstruction technique COMPARISON: The previous PET CT scan dated 03/11/2021 is available for comparison. The diagnostic CT scan of the chest, abdomen, and pelvis, dated 09/17/2021, is available for comparison. FINDINGS: (Slice numbers described in this report are numbered superiorly to inferiorly with slice #1 in the head) NECK AND VISUALIZED HEAD: No foci of abnormal FDG activity are noted. The distribution of FDG activity is physiological. There is no cervical lymphadenopathy. THORAX: Postsurgical changes from a right upper lobectomy are noted, as visualized on the prior PET CT scan dated 03/11/2021. New since that study are extensive FDG avid opacities throughout the right lung, most prominently in the anterolateral aspect of the right middle lobe were dense consolidation now extends from the perihilar regions of the anterolateral pleura, and the latter is new since the more recent diagnostic CT scan of the chest dated 09/17/2021. This now abuts the interlobar fissure as well as the anterolateral pleura. SUVmax in this region is 9.7, abutting the anterolateral pleura of the right middle lobe, slice 96/267. In addition to this extensive reticular interstitial changes which are predominantly in the right lower lobe and within these there are several FDG avid more dense opacities, predominantly in the right lung base. These show SUVmax 9.8, slice 113/267. Although some opacities in the right lower lobe were present on the recent 2r larger and more dense on the current study. Right lung base parenchyma. Minimal Right-sided pleural fluid is present, and this is mildly FDG avid, but the most intense FDG activity in this region is in the right lower lobe parenchyma. There is pleural fluid is similar in amount to the 09/17/2021 CT scan but was not present on the less recent PET CT scan dated 03/11/2021. There are no foci of abnormal FDG activity or suspicious pulmonary nodules in the left lung. Sutures from prior surgery are present in the mid left lung abutting the interlobar fissure, but there is no abnormal FDG activity in this region and this is unchanged in appearance from 03/11/2021. FDG avid subcarinal and right paratracheal lymph nodes are present,, the most intense a subcarinal focus showing SUVmax 7.8, slice 93/267. The lower right paratracheal lymph node shows SUVmax 7.1 and measures 1.6 x 1.4 cm in largest transverse dimensions. These appear unchanged from the recent 09/17/[address] scan, but were not present on the [address] scan. Multiple additional smaller and less FDG intense FDG avid right paratracheal lymph nodes are present and a high left para midline pretracheal subcentimeter lymph node also shows mild FDG avidity. There is no axillary or supraclavicular lymphadenopathy. There is no left-sided pleural fluid or pericardial fluid present. There is no pneumothorax. ABDOMEN AND PELVIS: There is mild FDG activity present throughout the gastrointestinal tract, probably physiological. A slight focal accentuation in the right side of the transverse colon is present, but there is no corresponding CT abnormality on either these CT images or the recent diagnostic 09/17/2021 CT scan and this activity is also probably physiological. There is diverticulosis without evidence of diverticulitis. The hollow viscera are otherwise unremarkable. The liver, gallbladder, and spleen are unremarkable. The kidneys are unremarkable. There is a 1.4 cm hypodense right adrenal nodule which is unchanged in appearance from 03/11/2021, showing a density of 6.1 Hounsfield units, unchanged from 03/11/2021, and showing no abnormal FDG activity on both the current and prior PET/CT scans, likely a benign adenoma. The adrenal glands are otherwise unremarkable. The pancreas is unremarkable. There is no retroperitoneal, mesenteric, pelvic or inguinal lymphadenopathy. The uterus is not well visualized and has likely been resected. Although this was not noted on the prior PET CT scan, the appearance of this region is unchanged. The pelvic organs are otherwise unremarkable. MUSCULOSKELETAL: There is a focus of abnormal FDG activity present in the left side of the C7 vertebral body, SUVmax 7.2, slice 54/267. This is immediately adjacent to the posterior aspect of a left-sided screw or pin stabilizing a C5-C7 anterior fusion. No definite CT abnormality is present at this site, but the FDG activity is new since the prior 03/11/[address] scan but the appearance of the hardware is unchanged. There is an additional new focus of abnormal FDG activity in the T7 vertebral body, SUVmax 7.3, slice 90/267, and this is associated with a new 0.8 cm lytic lesion in this vertebra, not present on the [address] scan and also not well delineated on the 09/17/[address] scan. No additional suspicious foci of abnormal FDG activity are present in the osseous structures. VASCULAR: Diffuse vascular calcifications including coronary are noted. PET/PET CT fusion skull to thigh IMPRESSION: 1. Extensive FDG avid consolidation has developed in the right middle lobe since the recent 09/17/2021 CT scan and this is all new since the prior 03/11/[address] scan. The rapid development since less than a month ago suggest this is inflammatory or infectious in etiology rather than malignant, but some malignancy within this region cannot be entirely ruled out. 2. Extensive right lower lobe reticular interstitial pattern be due to postradiation therapy inflammatory changes, but there are solid components to this which are markedly FDG avid and are suspicious for malignancy. However, the consolidation appears to be more severe than on the recent 09/17/[address] scan and the neural rest opacities are the most intensely FDG avid, suggesting these may represent active inflammatory or infectious disease. These might be better characterized with a repeat diagnostic CT scan of the chest, if clinically indicated. 3. New FDG avid mediastinal lymphadenopathy is also suspicious for recurrent or metastatic malignancy. 4. FDG avid vertebral lesions in C7 and T7 are strongly suspicious for new metastases. These could be further characterized with MRI, performed without and with intravenous contrast, particularly the T7 lesion, as the C7 lesion is immediately adjacent to hardware that may corrupt the MRI images. 5. A stable appearing right adrenal nodule shows no abnormal FDG activity and is likely benign. 6. No additional abnormalities are present suspicious for other metastatic or malignant lesions. 7. Diffuse vascular calcifications including coronary.
== END 2021-10-14 10:21 | disposition home or self-care (01) ==
LOC: HO.PET 10:20
PROVIDERS: PCP Pediatrics; Visit Provider Internal Medicine
DX: Z13.89 Encounter for screening for other disorder (principal)

== ENCOUNTER → 2021-10-27 13:48 | Outpatient (BNVA) | payer MEDICAID, SELFPAY | PROVIDERS: PCP Pediatrics; Visit Provider Internal Medicine Pulmonary Disease | DX: C34.91 Malignant neoplasm of unspecified part of right bronchus or lung (principal); C34.92 Malignant neoplasm of unspecified part of left bronchus or lung; J44.9 Chronic obstructive pulmonary disease, unspecified | CPT/HCPCS: 99212 ==

== ENCOUNTER 2021-10-29 13:08 | Outpatient (REF) | payer MEDICAID, SELFPAY ==
--- NOTE | ~2021-10-29 | MR_ITS ---
EXAMINATION: MR BRAIN WITHOUT AND WITH CONTRAST CLINICAL INFORMATION: Staging metastatic lung cancer. COMPARISON: None available. TECHNIQUE: Multiplanar, multisequence imaging of the brain was performed before and after the intravenous administration of 10 mL of Gadavist. FINDINGS: There is a 3 mm enhancing metastasis within the left cerebellum best seen on series 11 image 10/28. A 2 mm focus of enhancement is seen in the left parietal lobe on series 13 image 84/144 which is suspected to represent vascular enhancement, possibly related to a small developmental venous anomaly. There is no acute infarction, hemorrhage, or extra-axial fluid collection. The ventricles are normal in size without hydrocephalus. There is no evidence of edema. The major arterial flow voids are preserved at the skull base. The extracranial structures are unremarkable. MR/MR head/brain wo/w con IMPRESSION: Enhancing metastasis within the left cerebellum measuring 3 mm. No definite additional metastatic lesions are seen. A 2 mm focus of indeterminate enhancement is seen in the left parietal lobe and could represent a developmental venous anomaly. Consider short interval follow-up MRI to exclude a small metastasis at this locale.
== END 2021-10-29 13:09 | disposition home or self-care (01) ==
LOC: HO.MRI 13:08
PROVIDERS: Visit Provider Internal Medicine
DX: C34.91 Malignant neoplasm of unspecified part of right bronchus or lung (principal); C34.92 Malignant neoplasm of unspecified part of left bronchus or lung
CPT/HCPCS: 70553; A9585

== ENCOUNTER 2021-11-03 09:13 | Day surgery (SDC) | payer MEDICAID, SELFPAY ==
[2021-11-03] VITALS (9 sets, daily range): BP systolic 115–137; BP diastolic 60–98; PULSE 56–79; RESP 17–24; TEMP 36.1–36.6; O2SAT 91–95; BMI 76.3
--- NOTE | ~2021-11-03 | CT_ITS ---
PROCEDURE: CT GUIDED BIOPSY, LUNG CLINICAL INFORMATION: Recurrent right lung cancer. COMPARISON: None. TECHNIQUE: Following explaining CT fluoroscopy-guided right upper lobe pleural-based mass biopsy procedure, benefits and risk, a written consent was obtained. Patient was placed supine on fluoroscopy table and preliminary CT imaging was obtained. Marker was placed along the right anterior chest wall and repeat imaging was performed. An optimal left marker was selected and the skin site was marked. The marked site was cleaned and draped in usual sterile manner. 1% lidocaine was injected at puncture site. Through a small skin incision an 18-gauge guide needle was advanced from the skin into the intercostal space. Coaxially a 18-gauge long needle was advanced and a 2 pass biopsy was performed. Postprocedure the guide needle was withdrawn and complete hemostasis was achieved. Patient tolerated procedure extremely well. A sterile dressing applied postprocedure. Conscious sedation was utilized during the exam. This CT examination was performed using dose optimization techniques as appropriate, variously including the following: *Automated exposure control *Adjustment of mA and/or kV according to patient size (this includes techniques or standardized protocols for targeted exams where dose is matched to indication/reason for exam; i.e. extremities or head) *Use of iterative reconstruction technique DLP: 247 mGy-cm FINDINGS: On initial CT imaging there is a large pleural-based mass or scar in the right upper lobe with sutures within. CT fluoroscopy-guided 2 pass core biopsy was performed with an 18-gauge needle. A good sample was obtained. However on insertion of coaxial biopsy gun there was significant resistance through the lesion likely scarring and/or fibrosis felt within the mass. 2 samples collected were sent in alcohol solution to the lab. CT/CT biopsy lung RT IMPRESSION: Successful CT fluoroscopy-guided right upper lobe lung mass core biopsy performed x 2.
[2021-11-03 10:38] LABS: MANUAL DIFF FLAG NO
[2021-11-03 10:41] LABS: Basophils Absolute Auto 0.1 X10*3/uL (0.0-0.2); Basophils Percent Auto 0.6 % (0-2); Eosinophils Absolute Auto 0.8 X10*3/uL (0.0-0.4); Hematocrit 39.8 % (37.0-47.0); Hemoglobin 13.7 g/dl (12.0-16.0); Imm Gran Abs Auto 0.05 X10*3/uL (0.00-0.03); Imm Gran Pct Auto 0.5 % (0.0-0.4); Lymphocytes Absolute Auto 0.9 X10*3/uL (1.2-4.9); Lymphocytes Percent Auto 8.5 % (20-40); Mean Corpuscular HGB Conc 34.4 g/dl (31.0-35.0); Mean Corpuscular Hemoglobin 29.6 pg (27.0-33.0); Mean Platelet Volume 10.1 fL (9.4-12.3); Monocytes Absolute Auto 0.9 X10*3/uL (0.1-1.2); Neutrophils Absolute Auto 8.4 x10*3/uL (2.0-8.3); Neutrophils Percent Auto 75.4 % (45-73); Platelet Count 227 X10*3/uL (160-400); Red Blood Count 4.63 X10*6/uL (4.20-5.50); Red Cell Distribution Width 13.1 % (11.0-16.0); White Blood Count 11.1 X10*3/uL (4.8-10.8)
[2021-11-03 10:46] LABS: Prothrombin Time 11.9 SEC (10.0-13.1)
[2021-11-03 10:49] LABS: Partial Thromboplastin Time 29.9 SEC (24.1-38.0)
[2021-11-03] MEDS: Lidocaine HCl 1 % MPF 5 ML VIAL SUBCUT (12:01)
== END 2021-11-03 14:33 | disposition home or self-care (01) ==
PROVIDERS: Internal Medicine; PCP Pediatrics; Visit Provider Radiology Diagnostic Radiology
DX: C34.11 Malignant neoplasm of upper lobe, right bronchus or lung (principal); Z85.118 Personal history of other malignant neoplasm of bronchus and lung; Z90.2 Acquired absence of lung [part of]; Z85.3 Personal history of malignant neoplasm of breast; Z92.3 Personal history of irradiation; F11.11 Opioid abuse, in remission; J44.9 Chronic obstructive pulmonary disease, unspecified; R53.83 Other fatigue; Z79.82 Long term (current) use of aspirin; Z79.899 Other long term (current) drug therapy; Z88.8 Allergy status to other drugs, medicaments and biological substances; F17.210 Nicotine dependence, cigarettes, uncomplicated; Z86.19 Personal history of other infectious and parasitic diseases
CPT/HCPCS: 32408; 36415; 81479; 85025; 85610; 85730; 88305; 88341; 88342; 88360; 88374; 99152; J2250; J3010

== ENCOUNTER 2021-11-12 11:11 | Outpatient (REF) | payer MEDICAID, SELFPAY ==
[2021-11-12 11:30] LABS: MANUAL DIFF FLAG NO
[2021-11-12 11:52] LABS: Basophils Absolute Auto 0.1 X10*3/uL (0.0-0.2); Basophils Percent Auto 0.7 % (0-2); Eosinophils Absolute Auto 1.2 X10*3/uL (0.0-0.4); Eosinophils Percent Auto 11.6 % (0-4); Hematocrit 39.5 % (37.0-47.0); Hemoglobin 13.5 g/dl (12.0-16.0); Imm Gran Abs Auto 0.04 X10*3/uL (0.00-0.03); Imm Gran Pct Auto 0.4 % (0.0-0.4); Lymphocytes Absolute Auto 1.1 X10*3/uL (1.2-4.9); Lymphocytes Percent Auto 10.1 % (20-40); Mean Corpuscular HGB Conc 34.2 g/dl (31.0-35.0); Mean Corpuscular Hemoglobin 29.7 pg (27.0-33.0); Mean Corpuscular Volume 86.8 fL (80.0-98.0); Monocytes Absolute Auto 0.7 X10*3/uL (0.1-1.2); Monocytes Percent Auto 6.4 % (2-11); Neutrophils Absolute Auto 7.6 x10*3/uL (2.0-8.3); Neutrophils Percent Auto 70.8 % (45-73); Platelet Count 282 X10*3/uL (160-400); Red Blood Count 4.55 X10*6/uL (4.20-5.50); Red Cell Distribution Width 13.2 % (11.0-16.0); White Blood Count 10.7 X10*3/uL (4.8-10.8)
[2021-11-12 13:48] LABS: Alanine Aminotransferase 12 U/L (0-31); Albumin Level 3.5 g/dL (3.5-5.0); Alkaline Phosphatase 67 U/L (39-117); Anion Gap 15 (12-20); Aspartate Amino Transferase 14 U/L (5-31); Bilirubin Total 0.4 mg/dL (0.0-1.0); Blood Urea Nitrogen 21 mg/dL (9-16); Carbon Dioxide 30 mmol/L (22-29); Chloride 97 mmol/L (96-108); Estimated Glomerular Filt Rate 48; Glucose Random 165 mg/dL (60-115); Potassium 3.2 mmol/L (3.3-5.1); Sodium 139 mmol/L (135-145); Total Protein 6.7 g/dL (6.5-8.0)
== END 2021-11-12 11:12 | disposition home or self-care (01) ==
LOC: HO.LAB 11:11
PROVIDERS: PCP Pediatrics; Visit Provider Internal Medicine
DX: C34.11 Malignant neoplasm of upper lobe, right bronchus or lung (principal)
CPT/HCPCS: 36415; 80053; 85025

== ENCOUNTER 2022-01-07 16:35 | Inpatient (IN) | payer MEDICAID, SELFPAY ==
[2022-01-07] VITALS (8 sets, daily range): BP systolic 112–135; BP diastolic 78–87; PULSE 77–89; RESP 16–30; TEMP 36.8–37.1; O2SAT 95–99; BMI 30.9
--- NOTE | ~2022-01-07 | CT_ITS ---
EXAMINATION: CT HEAD WITHOUT CONTRAST CLINICAL INFORMATION: Headache and dizziness evaluate for bleed. COMPARISON: MRI of the brain October 2021 TECHNIQUE: Contiguous axial imaging was performed from the skull base to vertex without intravenous administration of contrast. This CT examination was performed using dose optimization techniques as appropriate, variously including the following: *Automated exposure control *Adjustment of mA and/or kV according to patient size (this includes techniques or standardized protocols for targeted exams where dose is matched to indication/reason for exam; i.e. extremities or head) *Use of iterative reconstruction technique DLP: 719 mGy-cm FINDINGS: There is no mass hemorrhage or cerebral edema. The ventricles and basal cisterns are normal. The sinuses and mastoid air cells are clear. CT/CT head/brain wo IV con IMPRESSION: No acute intracranial pathology. Findings noted on the prior MRI brain October 2021 are not appreciated on this CT examination. If concern persists for malignancy recommend follow-up imaging with MRI of the brain without and with contrast
--- NOTE | 2022-01-07 16:43 | ED_ITS ---
HPI - General Adult General Chief complaint: Recheck/Abnormal Lab/Rx Stated complaint: sent down from oncology Time Seen by Provider: 01/07/22 16:39 Source: patient Mode of arrival: ambulatory Limitations: no limitations History of Present Illness HPI narrative: Patient comes to the emergency room from Dr. Samuels last office. Patient was seen earlier today for blood work and also for a bone density test. However, the bone density test could be done. Patient was informed that her blood levels were low and she needed to get a platelet and blood transfusion. Patient already signed the consent, 1 unit of platelets were started Dr. Samuels is office. Patient has no complaints. Of note, patient is being treated for upper lobe lung adenocarcinoma. Per patient's previous notes, patient is on a combination therapy with pembrolizumab, carboplatin and pemetrexed.? She is on denosumab 120 mg subQ monthly for bone metastasis.? Related Data Home Medications Medication Instructions Recorded Confirmed aspirin 81 mg tablet,delayed 81 mg PO DAILY 02/12/20 01/07/22 release (Brenda Low Dose Aspirin) cholecalciferol (vitamin D3) 50 50 mcg PO DAILY 02/12/20 01/07/22 mcg (2,000 unit) capsule (Vitamin D3) diltiazem HCl 180 mg 180 mg PO DAILY 02/12/20 01/07/22 capsule,extended release 24 hr, controlled metoprolol tartrate 50 1 tab PO DAILY 02/12/20 01/07/22 mg-hydrochlorothiazide 25 mg tablet milnacipran 50 mg tablet (Savella) 50 mg PO BID 02/12/20 01/07/22 omeprazole 20 mg capsule,delayed 20 mg PO DAILY 02/12/20 01/07/22 release paroxetine HCl 30 mg tablet 60 mg PO DAILY 02/12/20 01/07/22 simvastatin 20 mg tablet 20 mg PO BEDTIME 02/12/20 01/07/22 nicotine 21 mg/24 hr daily 1 patch topical DAILY 02/20/21 01/07/22 transdermal patch albuterol sulfate 90 mcg/actuation 2 puff inhalation Q4H PRN Wheezing 01/07/22 01/07/22 aerosol inhaler (ProAir HFA) buprenorphine 4 mg-naloxone 1 mg 1 film sublingual DAILY 01/07/22 01/07/22 sublingual film Previous Rx's Medication Instructions Recorded docusate sodium 100 mg capsule 100 mg PO BID #60 caps 02/16/20 (Colace) dexamethasone 4 mg tablet 4 mg PO BID #30 tabs 10/17/21 folic acid 1 mg tablet 1 mg PO DAILY #60 tabs 10/17/21 ondansetron 8 mg disintegrating 8 mg PO Q8H PRN Nausea #60 tabs 10/17/21 tablet ipratropium 0.5 mg-albuterol 3 mg 3 ml inhalation Q6-8H PRN wheezing 10/27/21 (2.5 mg base)/3 mL nebulization 30 days #270 mL soln umeclidinium 62.5 mcg-vilanterol 1 ea PO DAILY #60 ea 12/19/21 25 mcg/actuation powdr for inhalation (Anoro Ellipta) Allergies Allergy/AdvReac Type Severity Reaction Status Date / Time lisinopril [LISINOPRIL] Allergy Severe SWELLING- Verified 01/07/22 16:43 ANGIOEDEMA codeine [CODEINE] Allergy Intermediate VOMITING/HIVES, Verified 01/07/22 16:43 vomiting, hives Review of Systems Review of Systems: Constitutional : No Weight loss, No Fever, No Chills, No Night Sweats, complaining of fatigue ENT/Mouth : No Hearing loss, No Ear Pain, No Nasal Congestion, No Sinus Pain, No Hoarseness, No sore throat, No Rhinorrhea, No Swallowing Difficulty Eyes: No Eye Pain, No Swelling, No Redness, No Foreign Body, No Discharge, No Vision Changes Cardiovascular : No Chest Pain, No SOB, No Dyspnea on Exertion, No Orthopnea, No Edema, No Palpitations Respiratory : No Cough, No Sputum, No Wheezing, No Smoke Exposure, No Dyspnea Gastrointestinal : No Nausea, No Vomiting, No Diarrhea, No Constipation, No abdominal Pain, No Hematochezia, No Melena Genitourinary : no irregular bleeding, No Dysuria, No Urinary Frequency, No Hematuria, No Urinary Incontinence, No Urgency, No Flank Pain, No Urinary Flow Changes, No Hesitancy Musculoskeletal : No joint pain, No Myalgias, No Joint Swelling Skin : No Skin Lesions, No rash Neuro : No Weakness, No Numbness, No Paresthesias, No Loss of Consciousness, No Dizziness, No Headache Psych : No Anxiety/Panic, No Depression, No SI/HI/AH/VH, No Social Issues, Heme/Lymph: No Bruising, No Bleeding,No Lymphadenopathy Endocrine : No Polyuria, No Polydipsia, No Temperature Intolerance [facility] Past Medical History Medical History Bilateral lung cancer Cancer of upper lobe of left lung (~2020) Cancer of upper lobe of right lung (~2019) COPD (chronic obstructive pulmonary disease) Depression GERD (gastroesophageal reflux disease) History of breast cancer (~2006) History of hepatitis C HTN (hypertension) Internal and external bleeding hemorrhoids Obesity Pulmonary nodules Smoker Tubular adenoma of colon Surgical History History of anterior colporrhaphy (~2016) History of back surgery (~2011) History of colonoscopy (~2014) History of hemorrhoidectomy (~2019) History of lobectomy of lung (~2019) History of lumpectomy of right breast (~2006) History of lung surgery (~2020) History of tubal ligation Family History Family History Mother History of lung cancer Brother History of lung cancer Maternal Grandmother Breast cancer in female Maternal Aunt Breast cancer in female Daughter Thyroid cancer Social History Social History Household Members: Significant Other and None Housing: Apartment Are you a primary career development coordinator/teacher to a significant other at home: No Do you presently have visiting nurse or other home services: No Alcohol intake: never Patient Tobacco Use Status: Current someday Tobacco user Tobacco use type: Cigarette Years Smoked: 46 Use of substances other than those prescribed or required for medical reasons: No Substance Use Type: Marijuana Advance Directives: Yes Advance Directives Information Provided: No Advance Directives on File: No Patient : No service: No Current occupational status: disabled Current occupational exposures/hazards: No Physical Exam ED Vital Signs: Vital Signs - 24 hr 01/07/22 16:43 Temperature 98.2 F Pulse Rate 77 Respiratory Rate 18 Blood Pressure 128/84 Pulse Oximetry 99 Oxygen Delivery Method Room Air BMI result Body Mass Index 30.9 Course Course Course Narrative: Patient has no significant complaints. Patient receiving an additional dose of platelets and pRBC Labs to be repeated tomorrow. I discussed the patient with Dr. Brink, Pt being admitted under obs Medical Decision Making Lab Data Labs: Lab Results 01/07/22 01/07/22 Range/Units 13:08 16:48 COVID-19 (OLAYINKA) Negative (Negative) COVID-19 Clin Com See Note Blood Type A Positive Antibody Screen NEGATIVE Crossmatch See Detail Critical Care Time Critical Care Time Critical Care Time: Yes Total Critical Care Time: 50 Attestation: I have personally provided critical care time. Time includes review of lab data, radiology results, discussion with consultants, and monitoring for potential decompensation. Intervention performed as documented. Discharge Plan Discharge Clinical Impression: Pancytopenia Patient Disposition: Admitted as Observation Prescriptions: No Action Anoro Ellipta 62.5-25 mcg/actuation blister with device 1 ea PO DAILY Qty: 60 0RF metoprolol ta-hydrochlorothiaz 50-25 mg Tablet 1 tab PO DAILY aspirin [Brenda Low Dose Aspirin] 81 mg Tablet,Delayed Release (Dr/Ec) 81 mg PO DAILY paroxetine HCl 30 mg Tablet 60 mg PO DAILY simvastatin 20 mg Tablet 20 mg PO BEDTIME omeprazole 20 mg Capsule,Delayed Release(Dr/Ec) 20 mg PO DAILY diltiazem HCl 180 mg Capsule,Ext.Rel 24h Degradable 180 mg PO DAILY cholecalciferol (vitamin D3) [Vitamin D3] 50 mcg (2,000 unit) Capsule 50 mcg PO DAILY Savella 50 mg Tablet 50 mg PO BID docusate sodium [Colace] 100 mg capsule 100 mg PO BID Qty: 60 2RF nicotine 21 mg/24 hr patch 24 hour 1 patch topical DAILY folic acid 1 mg Tablet 1 mg PO DAILY Qty: 60 3RF ondansetron 8 mg Tablet,Disintegrating 8 mg PO Q8H PRN (Reason: Nausea) Qty: 60 3RF dexamethasone 4 mg Tablet 4 mg PO BID Qty: 30 3RF Rx Instructions: take for 2 days after chemo albuterol sulfate [ProAir HFA] 90 mcg/actuation HFA aerosol inhaler 2 puff INHALATION Q4H PRN (Reason: Wheezing) buprenorphine-naloxone 4-1 mg Film 1 film sublingual DAILY ipratropium-albuterol 0.5 mg-3 mg(2.5 mg base)/3 mL solution for nebulization 3 ml inhalation Q6-8H PRN (Reason: wheezing) 30 Days Qty: 270 6RF
--- OUTSIDE RECORDS SUMMARY | 2022-01-07 16:44 | XMS_ITS | Continuity of Care Document ---
:1960 Author Organization [facility] p Address [address] [place] [address], [address] [place] [phone]- Care Team Providers Name Role Phone Michael CATES, Daphne Masterson Primary Care Physician Encounter [facility] Date(s): 12/07/19 - 01/06/20 [facility] [employer] [facility] [address] [place] [address], [address] [place] [id number]- [facility] Attending Physician: Faby Schroeder Admitting Physician: Faby Schroeder Referring Physician: Faby Schroeder Allergies, Adverse Reactions, Alerts Substance Reaction Severity Status codeine N/V Active lisinopril1 tongue swelling Persistent Severe Active 1angioedema Immunizations Not Given Vaccine Date Status Refusal Reason pneumococcal 23-valent vaccine 02/05/17 Not Given P atient Refuses Medications amLODIPine 10 mg oral tablet 10 mg, 1, tablet, By Mouth, Daily, in am, Refills 0, Maintenance, 08/16/18 12:14:55 EDT Start Date: 08/16/18 Status: Orderedaspirin 81 mg oral tablet 1 tablet = 81 mg, By Mouth, Daily in AM, # 30 tablet, 0 Refills, Maintenance, 01/11/18 13:49:26 EDT,Tablet Start Date: 01/11/18 Status: OrderedcloNIDine 0.1 mg oral tablet 0.1 mg, 1, tablet, By Mouth, 2 times a day, PRN, # 60 tablet, Refills 0, Maintenance, Anxiety, 01/11/18 13:49:01 EDT Start Date: 01/11/18 Status: Orderedhydrochlorothiazide 50 mg oral tablet 50 mg, By Mouth, Daily, # 30 tablet, Refills 0, Tot. Refills 0, Maintenance, 02/05/17 14:15:23, Route to Pharmacy Electronically, [id number], [facility]/pharmacy #[id number] Start Date: 02/05/17 Status: Orderedibuprofen 600 mg oral tablet 600 mg, 1, tablet, By Mouth, Every 6 hours, # 50 tablet, Refills 0, Tot. Refills 0, Maintenance, 08/29/18 10:01:21 EDT, Print Requisition Start Date: 08/29/18 Status: Orderedibuprofen 600 mg oral tablet 600 mg, 1, tablet, By Mouth, Every 6 hours, # 40 tablet, Refills 0, Tot. Refills 0, Maintenance, 01/27/18 18:40:55 EDT, Print Requisition Start Date: 01/27/18 Status: OrderedPARoxetine 40 mg oral tablet 40 mg, 1, tablet, By Mouth, 2 times a day, Refills 0, Maintenance, 08/16/18 12:18:22 EDT Start Date: 08/16/18 Status: OrderedPrilosec 20 mg oral enteric coated capsule 1 capsule = 20 mg, By Mouth, Daily, 0 Refills, Maintenance, 01/25/17 8:24:25 Start Date: 01/25/17 Status: OrderedProAir HFA 90 mcg/inh inhalation aerosol with adapter 2, puffs, Inhalation, 4 times a day, PRN, Refills 0, Maintenance, 01/11/18 15:12:45 EDT Start Date: 01/11/18 Status: OrderedSavella 50 mg oral tablet 1 tablet = 50 mg, By Mouth, 2 times a day, 0 Refills, Maintenance, 06/22/16 14:55:01 Start Date: 06/22/16 Status: Orderedsimvastatin 20 mg oral tablet 20 mg, 1, tablet, By Mouth, Daily at bedtime, Refills 0, Maintenance, 01/25/17 8:21:36 Start Date: 01/25/17 Status: OrderedSuboxone 8 mg-2 mg sublingual film 1 film, Sublingual, Daily, 0 Refills, Maintenance, 01/11/18 13:48:11 EDT Start Date: 01/11/18 Status: OrderedVitamin D 2000 units Vitamin D 2000 units, 1, tablet, By Mouth, Daily at bedtime, Refills 0, Maintenance, 10/02/10 10:37:13 EDT Start Date: 10/02/10 Status: Ordered Problem List Condition Effective Dates Status Health Status Informant Breast cancer(Confirmed)1 Active ; Cannabis dependence, Active continuous(Confirmed) Chronic depression(Confirmed) Active Degeneration of cervical Active intervertebral disc(Confirmed) Drug interaction(Confirmed)2 Active FH - Alcoholism(Confirmed) Active H/O: alcoholism(Confirmed)3 Active Hepatitis C(Confirmed)4 Active Rectocele(Confirmed) Active Myofascial pain syndrome(Confirmed) Active Not getting enough sleep(Confirmed) Active 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
--- OUTSIDE RECORDS SUMMARY | 2022-01-07 16:44 | XMS_ITS | Continuity of Care Document ---
:1960 [facility] p Address [address] [place] [phone]- Care Team Providers Name Role Phone Michael CATES, Daphne Masterson Primary Care Physician Encounter [facility] Date(s): 11/28/19 - 01/06/20 [facility] [place] [employer] [address] [address]- [facility] Attending Physician: Abbey Beavers NP Admitting Physician: Abbey Beavers NP Referring Physician: Daphne Rodriguez MD Allergies, Adverse Reactions, Alerts Substance Reaction Severity [...] Maintenance, 02/05/17 14:15:23, Route to Pharmacy Electronically, [id number], [facility]/pharmacy #[id number] Start Date: 02/05/17 Status: Orderedibuprofen 600 [...] Active limbs(Confirmed) 1right, s/p lumpectomy and radiation [id number] of antidepressant and opioid co-treatment, no CK [id number] detox 48428d/p treatment Social History Social History Type Response Smoking Status Current every day smoker entered on: 02/04/17 Sex Medical Equipment Implanted Date:01/27/18 Target Site:Vagina Description Quantity MRI Company Model MESH Y RESTORELLE 6 24X4 - COLO ([id number]) 1 [employer] Jayden Unknown MORAIMA: {[id number]{17}[id number] Assigning Authority: FDA
--- OUTSIDE RECORDS SUMMARY | 2022-01-07 16:44 | XMS_ITS | Continuity of Care Document ---
:1960 Author Organization [facility] Address [address] [place] [phone]- Care Team Providers Name Role Phone Daphne Rodriguez MD Primary Care Physician Encounter [facility] Date(s): 07/10/21 - 11/09/[address] [address] Attending Physician: Daphne Rodriguez MD Admitting Physician: Daphne Rodriguez MD Referring Physician: Daphne Rodriguez MD Allergies, Adverse [...] 01/11/18 13:49:26 EDT,Tablet Start Date: 01/11/18 Status: Orderedbetamethasone topical dipropionate 0.05% cream 1 application, Topically, Daily, apply to affected area as directed, # 15 Gm, 1 Refills, Maintenance, 01/30/21 12:50:00 EDT, Cream, [facility] #[id number], 1 application Topically Daily,Instr:apply to affected area as directed, 172, cm, 01/29/20 15:11:00... Start Date: 01/30/21 Status: OrderedcloNIDine 0.1 mg oral tablet 0.1 mg, 1, tablet, By Mouth, 2 times a day, PRN, # 60 tablet, Refills 0, Maintenance, Anxiety, 01/11/18 13:49:01 EDT Start Date: 01/11/18 Status: Orderedhydrochlorothiazide 50 mg oral tablet 50 mg, By Mouth, Daily, # 30 tablet, Refills 0, Tot. Refills 0, Maintenance, 02/05/17 14:15:23, Route to Pharmacy Electronically, [id number], [facility]/pharmacy #[id number] Start Date: 02/05/17 Status: Orderedibuprofen 600 mg oral tablet 600 mg, 1, tablet, By Mouth, Every 6 hours, # 40 tablet, Refills 0, Tot. Refills 0, Maintenance, 01/27/18 18:40:55 EDT, Print Requisition Start Date: 01/27/18 Status: Orderedibuprofen 600 mg oral tablet 600 mg, 1, tablet, By Mouth, Every 6 hours, # 50 tablet, Refills 0, Tot. Refills 0, Maintenance, 08/29/18 10:01:21 EDT, Print Requisition Start Date: 08/29/18 Status: OrderedPARoxetine 40 mg oral tablet 40 [...] Active limbs(Confirmed) 1right, s/p lumpectomy and radiation ajwdarwmwa3fctrkoq of antidepressant and opioid co-treatment, no CK gsepqlohn8okywyqfig detox 51932i/p treatment Social History Social History Type Response Smoking Status Current every day smoker entered on: 02/04/17 Sex Medical Equipment Implanted Date:01/27/18 Target Site:Vagina Description Quantity MRI Company Model MESH Y RESTORELLE 6 24X4 - COLO ([id number]) 1 [employer]oplast Jayden Unknown MORAIMA: {[id number]{[id number] Assigning Authority: FDA
--- NOTE | 2022-01-07 16:52 | PC.NURSE ---
patient a&ox3, vss, pt denies pain/discomfort, iv established in oncology prior to arrival to ed, blood band already applied in oncology, labs drawn prior to arrival to ed, lungs clear, absent rul, call moya within reach, will continue to monitor
--- NOTE | 2022-01-07 17:09 | PHA.MEDREC ---
Pharmacy Consult ? Medication Reconciliation Pharmacy has completed the medication reconciliation. Spoke to patient at bedside. Of Note: patient states shes on suboxone 2mg and she took one this morning, however, PANEL MAKER shows patient is on 4mg and last black pickler was in october for a 14 day supply. Patient takes zofran and dexmethasone for 2 days after chemo cycles.
[2022-01-07 17:13] LABS: COVID-19 Test Negative (Negative); IDNOW Serial# 16C4AD1C
[2022-01-07] MEDS: Potassium Chloride Packet 20 MEQ PACKET 40 MEQ PO (17:59)
--- NOTE | 2022-01-07 18:21 | PC.NURSE ---
this nurse has attempted x2 to hang platelets, the lab is having difficulty as the blood band wont scan, the platelets were brought back to the blood bank both times. we are awaiting them to call after they fix the issue
--- NOTE | 2022-01-07 20:26 | PC.NURSE ---
patient a&ox3, platelets hung per order, vss, will continue to monitor
--- NOTE | 2022-01-07 20:42 | PC.NURSE ---
platelet infusing, vss, pt tolerating well
--- NOTE | 2022-01-07 21:55 | PC.NURSE ---
Pt BLD transfusion is running, Pt BP was taken within the 15 mins, Pt tolerated the transfusion and it shows NSR on the telemetry. Will continue to monitor.
--- NOTE | 2022-01-07 23:54 | PM.IMHP ---
History of Present Illness Date of Service: 01/07/22 Chief Complaint: Low platelets 61-year-old female with a past medical history of hypertension, hyperlipidemia, history of breast cancer, history of lung cancer on chemotherapy-follows Dr. Samuels, anxiety, depression, history of hemorrhoids, pulmonary nodules presented to the hospital today with a chief complaint of abnormal labs. Patient reported that she was recently started on chemotherapy. Today she had routine blood work done noted to have severely low platelets subsequently also to go to the ER for further evaluation. Patient denies any signs of bleeding, denies any bruising, denies any headaches, blurry visions, numbness tingling or focal weakness. Reports that she has history of hemorrhoids and has intermittent episodes of bleeding from hemorrhoids. Denies any recent bleeding. Patient denies any chest pain or palpitations. Review of all other systems is negative except mentioned above ER course: Per ER team patient on presentation noted to have benign examination, hemoglobin dropped to 7.5, platelets of 3; patient being given 1 unit of blood transfusion and 2 units of platelets. Patient also noted to have neutrophils of 1.4. Patient pancytopenia attributed to the reason chemotherapy. Admitted for further management. COUNT INCLUDES [facility] Medical History Bilateral lung cancer Cancer of upper lobe of left lung (~2020) Cancer of upper lobe of right lung (~2019) COPD (chronic obstructive pulmonary disease) Depression GERD (gastroesophageal reflux disease) History of breast cancer (~2006) History of hepatitis C HTN (hypertension) Internal and external bleeding hemorrhoids Obesity Pulmonary nodules Smoker Tubular adenoma of colon Family History Mother History of lung cancer Brother History of lung cancer Maternal Grandmother Breast cancer in female Maternal Aunt Breast cancer in female Daughter Thyroid cancer Surgical History History of anterior colporrhaphy (~2016) History of back surgery (~2011) History of colonoscopy (~2014) History of hemorrhoidectomy (~2019) History of lobectomy of lung (~2019) History of lumpectomy of right breast (~2006) History of lung surgery (~2020) History of tubal ligation Social History Household Members: Significant Other and None Housing: Apartment Are you a primary memory care director to a significant other at home: No Do you presently have visiting nurse or other home services: No Alcohol intake: never Patient Tobacco Use Status: Current someday Tobacco user Tobacco use type: Cigarette Years Smoked: 46 Use of substances other than those prescribed or required for medical reasons: No Substance Use Type: Marijuana Advance Directives: Yes Advance Directives Information Provided: No Advance Directives on File: No Patient : No service: No Current occupational status: disabled Current occupational exposures/hazards: No Meds Allergies Allergy/AdvReac Type Severity Reaction Status Date / Time lisinopril [LISINOPRIL] Allergy Severe SWELLING- Verified 01/07/22 16:43 ANGIOEDEMA codeine [CODEINE] Allergy Intermediate VOMITING/HIVES, Verified 01/07/22 16:43 vomiting, hives Active Medications: Current Medications Acetaminophen (Acetaminophen 325 Mg Tablet) 650 mg PO Q6H PRN PRN Reason: Pain, Mild (Pain Scale 1-3) Melatonin (Melatonin 3 Mg Tablet) 6 mg PO BEDTIME PRN PRN Reason: Insomnia Pharmacy Consult (Consult Rx Perform Med Rec) 1 each MISCELLANE ONCE PRN PRN Reason: Consult order Senna (Sennosides 8.6 Mg Tablet) 17.2 mg PO BEDTIME PRN PRN Reason: Constipation Sodium Chloride (0.9 % Sodium Chloride Flush 3 Ml Syringe) 3 ml IVFLUSH [facility] Home Medications Medication Instructions Recorded Confirmed Last Taken Type aspirin 81 mg tablet,delayed 81 mg PO DAILY 02/12/20 01/07/22 01/07/22 History release (Brenda Low Dose Aspirin) cholecalciferol (vitamin D3) 50 50 mcg PO DAILY 02/12/20 01/07/22 01/07/22 History mcg (2,000 unit) capsule (Vitamin D3) diltiazem HCl 180 mg 180 mg PO DAILY 02/12/20 01/07/22 01/07/22 History capsule,extended release 24 hr, controlled metoprolol tartrate 50 1 tab PO DAILY 02/12/20 01/07/22 01/07/22 History mg-hydrochlorothiazide 25 mg tablet milnacipran 50 mg tablet (Savella) 50 mg PO BID 02/12/20 01/07/22 01/07/22 History omeprazole 20 mg capsule,delayed 20 mg PO DAILY 02/12/20 01/07/22 01/07/22 History release paroxetine HCl 30 mg tablet 60 mg PO DAILY 02/12/20 01/07/22 01/07/22 History simvastatin 20 mg tablet 20 mg PO BEDTIME 02/12/20 01/07/22 01/07/22 History nicotine 21 mg/24 hr daily 1 patch topical DAILY 02/20/21 01/07/22 01/07/22 History transdermal patch albuterol sulfate 90 mcg/actuation 2 puff inhalation Q4H PRN Wheezing 01/07/22 01/07/22 01/07/22 History aerosol inhaler (ProAir HFA) buprenorphine 4 mg-naloxone 1 mg 1 film sublingual DAILY 01/07/22 01/07/22 01/07/22 History sublingual film Physical Exam Vital Signs and Narrative: Vital Signs: Last Vital Signs Temp 98.8 F 01/07/22 23:49 Pulse 87 01/07/22 23:49 Resp 22 H 01/07/22 23:49 BP 124/79 01/07/22 23:49 Pulse Ox 95 01/07/22 21:00 O2 Del Method 01/07/22 21:00 BMI result Body Mass Index 30.9 Gen: Appears be in no acute distress HEENT: NCAT, Moist mucosa. Pulmonary: Vesicular breath sounds, fair air entry CVS: Normal S1-S2 Abdomen: BS+, Soft, Nontender Extremities: Warm well perfused Neuro: Alert and awake. Results Labs Labs: Laboratory Results - last 24 hr 01/07/22 01/07/22 01/07/22 13:08 16:48 19:16 COVID-19 (OLAYINKA) Negative COVID-19 Clin Com See Note Blood Type A Positive A Positive Antibody Screen NEGATIVE NEGATIVE Crossmatch See Detail See Detail Imaging Radiologist's Impressions: Impressions Head CT 01/07/22 19:27 IMPRESSION: No acute intracranial pathology. Findings noted on the prior MRI brain October 2021 are not appreciated on this CT examination. If concern persists for malignancy recommend follow-up imaging with MRI of the brain without and with contrast Assessment and Plan (1) Pancytopenia: Status: Acute Plan 61-year-old female with a past medical history of hypertension, hyperlipidemia, history of breast cancer, history of lung cancer on chemotherapy-follows Dr. Samuels, anxiety, depression, history of hemorrhoids, pulmonary nodules presented to the hospital today with a chief complaint of abnormal labs. Noted to have pancytopenia admitted for further management. Pancytopenia: Likely in setting of recent chemotherapy. Noted to have neutrophils of 1.4, platelets of 3, hemoglobin of 7.5. Patient being transfused 1 unit of blood and 2 units of platelets. Currently no signs of bleeding. CT head showed no acute findings Oncology follow-up Hold home aspirin History of hypertension/hyperlipidemia: Continue home metoprolol, diltiazem, statin History of opiate dependence: Continue home Suboxone-will defer to the day team to confirm the Suboxone. History of anxiety/depression: Continue home medications DVT prophylaxis: SCD boots Code status: Full code Quality Stroke Does the patient have a stroke diagnosis?: No VTE Prior VTE?: No VTE Risk Level:: Medical - moderate - high VTE Device Contraindication: N/A - Device Ordered VTE Drug Contraindication: Treatment Not Indicated
[2022-01-08] MEDS: 0.9 % Sodium Chloride Flush 3 ML SYRINGE IVFLUSH ×2 (00:10→09:10)
--- NOTE | 2022-01-08 04:10 | PC.NURSE ---
Patient is alert and oriented x5. VSS. Patient denies any pain. Medicted per MAR.
[2022-01-08 06:08] LABS: Eosinophils Absolute Auto 0.1 X10*3/uL (0.0-0.4); Eosinophils Percent Auto 6.7 % (0-4); Hematocrit 21.3 % (37.0-47.0); Hemoglobin 7.6 g/dl (12.0-16.0); Lymphocytes Absolute Auto 0.5 X10*3/uL (1.2-4.9); Lymphocytes Percent Auto 62.7 % (20-40); MANUAL DIFF FLAG SCAN; Mean Corpuscular HGB Conc 35.7 g/dl (31.0-35.0); Mean Corpuscular Hemoglobin 29.1 pg (27.0-33.0); Mean Corpuscular Volume 81.6 fL (80.0-98.0); Mean Platelet Volume 9.6 fL (9.4-12.3); Monocytes Absolute Auto 0.2 X10*3/uL (0.1-1.2); Neutrophils Absolute Auto 0.1 x10*3/uL (2.0-8.3); Neutrophils Percent Auto 6.6 % (45-73); Platelet Count 36 X10*3/uL (160-400); Red Blood Count 2.61 X10*6/uL (4.20-5.50); Red Cell Distribution Width 14.1 % (11.0-16.0); SCAN SMEAR FLAG 1
[2022-01-08 06:20] LABS: White Blood Count 0.8 X10*3/uL (4.8-10.8)
[2022-01-08 06:21] LABS: Anion Gap 13 (12-20); Blood Urea Nitrogen 26 mg/dL (9-16); Calcium 7.9 mg/dL (8.4-10.2); Carbon Dioxide 28 mmol/L (22-29); Chloride 103 mmol/L (96-108); Creatinine Clr Calc Pharmacy 63.3; Estimated Glomerular Filt Rate 52; Glucose Random 105 mg/dL (60-115); Potassium 3.3 mmol/L (3.3-5.1); SLIDE REVIEW VERIFIED; Sodium 141 mmol/L (135-145)
--- NOTE | 2022-01-08 06:28 | PC.NURSE ---
Telephone call from the lab with critical lab result WBC 0.8. Dr. Zimmerman notified via [employer] message.
--- NOTE | 2022-01-08 08:26 | PM.HEMONCCN ---
Subjective - Subjective Primary Care Provider: Daphne Rodriguez MD HPI - Consult Narrative Narrative: Elida Schumacher is a 61 year old female [facility], [facility] Medical History: Medical History (Last Reviewed 01/07/22 @ 16:53 by Mattie Wood MD) Bilateral lung cancer Cancer of upper lobe of left lung Onset Date: ~2020 Cancer of upper lobe of right lung Onset Date: ~2019 COPD (chronic obstructive pulmonary disease) Depression GERD (gastroesophageal reflux disease) History of breast cancer Onset Date: ~2006 History of hepatitis C HTN (hypertension) Internal and external bleeding hemorrhoids Obesity Pulmonary nodules Smoker Tubular adenoma of colon Family History: Family History (Last Reviewed 01/02/22 @ 13:43 by Marta Julian) Mother History of lung cancer Brother History of lung cancer Maternal Grandmother Breast cancer in female Maternal Aunt Breast cancer in female Daughter Thyroid cancer Surgical History: Surgical History (Last Reviewed 01/07/22 @ 16:53 by Mattie Wood MD) History of anterior colporrhaphy Onset Date: ~2016 History of back surgery Onset Date: ~2011 History of colonoscopy Onset Date: ~2014 History of hemorrhoidectomy Onset Date: ~2019 History of lobectomy of lung Onset Date: ~2019 History of lumpectomy of right breast Onset Date: ~2006 History of lung surgery Onset Date: ~2020 History of tubal ligation Social History: Social History (Last Reviewed 01/02/22 @ 13:43 by Marta Julian) Living Situation History: Household Members: Significant Other Household Members: None Housing: Apartment Are you a primary child care center assistant director to a significant other at home: No Do you presently have visiting nurse or other home services: No Tobacco History: Patient Tobacco Use Status: Current someday Tobacco Tobacco use type: Cigarette Years Smoked: 46 Substance Use History: Use of substances other than those prescribed or required for medical reasons: No Substance Use Type: Marijuana Advance Directives: Advance Directives: Yes Advance Directives Information Provided: No Advance Directives on File: No Nutrition Assessment: Patient : No Occupation Assessmet: service: No Current occupational status: disabled Current occupational exposures/hazards: No Home Medications and Allergies Current Medications: Current Medications Acetaminophen (Acetaminophen 325 Mg Tablet) 650 mg PO Q6H PRN PRN Reason: Pain, Mild (Pain Scale 1-3) Albuterol Sulfate (Albuterol Sulfate 90 Mcg 8 Gm Inhaler) 2 puff INHALE Q4H PRN PRN Reason: Wheezing Albuterol/Ipratropium (Albuterol/Iprat 2.5/0.5mg 3 Ml Ampul.Neb) 3 ml INHALE Q6H PRN PRN Reason: wheezing Atorvastatin Calcium (Atorvastatin Calcium 10 Mg Tablet) 10 mg PO BEDTIME [facility] Diltiazem HCl (Diltiazem Hcl Cd 180 Mg Cap.Er.24h) 180 mg PO DAILY [facility]; Protocol Docusate Sodium (Docusate Sodium 100 Mg Capsule) 100 mg PO BID [facility] Folic Acid (Folic Acid 1 Mg Tablet) 1 mg PO DAILY [facility] Hydrochlorothiazide (Hydrochlorothiazide 25 Mg Tablet) 25 mg PO DAILY [facility] Melatonin (Melatonin 3 Mg Tablet) 6 mg PO BEDTIME PRN PRN Reason: Insomnia Metoprolol Tartrate (Metoprolol Tartrate 50 Mg Tablet) 50 mg PO DAILY [facility] Non-Formulary Medication (Umeclidinium-Vilanterol [Anoro Ellipta]) 1 each PO DAILY [facility] Non-Formulary Medication (Milnacipran [Savella]) 50 mg PO BID [facility] Omeprazole (Omeprazole 20 Mg Capsule.Dr) 20 mg PO DAILY [facility] Paroxetine HCl (Paroxetine Hcl 30 Mg Tablet) 60 mg PO DAILY [facility] Pharmacy Consult (Consult Rx Perform Med Rec) 1 each MISCELLANE ONCE PRN PRN Reason: Consult order Senna (Sennosides 8.6 Mg Tablet) 17.2 mg PO BEDTIME PRN PRN Reason: Constipation Sodium Chloride (0.9 % Sodium Chloride Flush 3 Ml Syringe) [facility] Admin: 01/08/22 00:10 Dose: 3 ml Tbo-Filgrastim (Tbo-Filgrastim 480 Mcg/0.8 Ml Syringe) 480 mcg SUBCUT ONCE ONE Stop: 01/08/22 08:26 Vitamin D (Cholecalciferol (Vitamin D3) 25 Mcg Tablet) 50 mcg PO DAILY [facility] Home Medications Medication Instructions Recorded Confirmed Type aspirin 81 mg tablet,delayed 81 mg PO DAILY 02/12/20 01/07/22 History release (Brenda Low Dose Aspirin) cholecalciferol (vitamin D3) 50 50 mcg PO DAILY 02/12/20 01/07/22 History mcg (2,000 unit) capsule (Vitamin D3) diltiazem HCl 180 mg 180 mg PO DAILY 02/12/20 01/07/22 History capsule,extended release 24 hr, controlled metoprolol tartrate 50 1 tab PO DAILY 02/12/20 01/07/22 History mg-hydrochlorothiazide 25 mg tablet milnacipran 50 mg tablet (Savella) 50 mg PO BID 02/12/20 01/07/22 History omeprazole 20 mg capsule,delayed 20 mg PO DAILY 02/12/20 01/07/22 History release paroxetine HCl 30 mg tablet 60 mg PO DAILY 02/12/20 01/07/22 History simvastatin 20 mg tablet 20 mg PO BEDTIME 02/12/20 01/07/22 History nicotine 21 mg/24 hr daily 1 patch topical DAILY 02/20/21 01/07/22 History transdermal patch albuterol sulfate 90 mcg/actuation 2 puff inhalation Q4H PRN Wheezing 01/07/22 01/07/22 History aerosol inhaler (ProAir HFA) buprenorphine 4 mg-naloxone 1 mg 1 film sublingual DAILY 01/07/22 01/07/22 History sublingual film Allergies Allergy/AdvReac Type Severity Reaction Status Date / Time lisinopril [LISINOPRIL] Allergy Severe SWELLING- Verified 01/07/22 16:43 ANGIOEDEMA codeine [CODEINE] Allergy Intermediate VOMITING/HIVES, Verified 01/07/22 16:43 vomiting, hives Physical Exam Vital signs: Vital Signs Temp 98.8 F 01/07/22 23:49 Pulse 87 01/07/22 23:49 Resp 22 H 01/07/22 23:49 BP 124/79 01/07/22 23:49 Pulse Ox 95 01/07/22 21:00 O2 Del Method 01/07/22 21:00 Intake & Output 01/07/22 01/08/22 01/08/22 18:59 06:59 18:59 Intake Total 695 / 695 Balance 695 / 695 Intake: Intake (Blood Product) Amount 695 / 695 Plt Aph Pas Pathreduced(E8342) 345 / 345 Unit [id number] Red Blood Cells (E0336) Unit 350 / 350 [id number] Other: Weight 89.4 kg Weight 89.4 kg Hem/Onc Consult Result - Labs CBC & Chem 7: 01/08/22 04:21 01/08/22 04:21 Labs: Short CBC 01/08/22 Range/Units 04:21 WBC 0.8 L* (4.8-10.8) X10*3/uL Hgb 7.6 L (12.0-16.0) g/dl Hct 21.3 L (37.0-47.0) % Plt Count 36 L D (160-400) X10*3/uL BMP 01/08/22 04:21 Sodium 141 Potassium 3.3 Chloride 103 Carbon Dioxide 28 BUN 26 H Creatinine 1.07 Calcium 7.9 L
[2022-01-08 09:06] VITALS: BP 140/85; PULSE 83; RESP 18; O2SAT 96
[2022-01-08] MEDS: dilTIAZem HCL CD 180 MG CAP.ER.24H PO (09:08)
[2022-01-08] MEDS: Cholecalciferol (Vitamin D3) 25 MCG TABLET 50 MCG PO (09:08)
[2022-01-08] MEDS: Docusate Sodium 100 MG CAPSULE PO (09:09)
[2022-01-08] MEDS: Omeprazole 20 MG CAPSULE.DR PO (09:09)
[2022-01-08] MEDS: Metoprolol Tartrate 50 MG TABLET PO (09:09)
[2022-01-08] MEDS: Folic Acid 1 MG TABLET PO (09:09)
[2022-01-08] MEDS: hydroCHLOROthiazide 25 MG TABLET PO (09:23)
[2022-01-08] MEDS: PARoxetine HCL 30 MG TABLET 60 MG PO (09:50)
--- NOTE | 2022-01-08 11:19 | MHC.CM.PN ---
Attempted to meet with patient in regards to discharge planning. Patient currently sleeping. No family present. Per ANTONINO Santos, patient is supposed to be active with [facility] in [place] for Suboxone. Per [facility], patient was last seen at [facility] on 10/30/21. She was supposed to have an appointment with them on 01/07/22 at 230pm. Patient rescheduled the appointment for 01/09 at 115pm due to a family emergency. Will attempt to meet with patient again. Continue to monitor for d/c needs.
--- NOTE | 2022-01-08 11:33 | PC.NURSE ---
pt reported to this rn that she is on suboxone 2mg at [facility] and had her dose last night, asked anabelle from case management to pleae verify the dose ron states when she spoke with [facility] the pt has not seen them since october 30 2021 and she had a appointment to restart but canceled it
[2022-01-08] MEDS: Potassium Chloride ER 20 MEQ TAB.ER.PRT 40 MEQ PO (12:24)
--- NOTE | 2022-01-08 12:28 | PM.DS ---
DS: Providers Provider Date of Service: 01/08/22 Date of admission: 01/07/22 23:49 Primary care physician: Daphne Rodriguez MD Consults: 01/08/22 05:49 Consult to Hematology / Oncology Routine Consulting Provider: Alexandria Samuels Reason for consultation: pancytopenia DS: Diagnosis Discharge Diagnosis (1) Pancytopenia: Status: Acute DS: Summary Hospital Course Hospital Course: from initial hpi: 61-year-old female with a past medical history of hypertension, hyperlipidemia, history of breast cancer, history of lung cancer on chemotherapy-follows Dr. Samuels, anxiety, depression, history of hemorrhoids, pulmonary nodules presented to the hospital today with a chief complaint of abnormal labs.? Patient reported that she was recently started on chemotherapy.? Today she had routine blood work done noted to have severely low platelets subsequently also to go to the ER for further evaluation.? Patient denies any signs of bleeding, denies any bruising, denies any headaches, blurry visions, numbness tingling or focal weakness.? Reports that she has history of hemorrhoids and has intermittent episodes of bleeding from hemorrhoids.? Denies any recent bleeding.? Patient denies any chest pain or palpitations.? Review of all other systems is negative except mentioned above ER course: Per ER team patient on presentation noted to have benign examination, hemoglobin dropped to 7.5, platelets of 3; patient being given 1 unit of blood transfusion and 2 units of platelets.? Patient also noted to have neutrophils of 1.4.? Patient pancytopenia attributed to the reason chemotherapy.? Admitted for further management. hospital course: Patient was admitted for pancytopenia due to recent chemotherapy, with severe thrombocytopenia. Patient had no active bleeding. She was transfused 1 unit of blood and 2 units of platelets, platelets 36 at discharge, hemoglobin improved to 7.6. She had hypokalemia which was replaced. For hypertension she was continue metoprolol and diltiazem. For hyperlipidemia she was continued on statin. For opiate dependence she was continued on Suboxone. For depression/anxiety she was continued on Paxil. Patient will be discharged home and follow-up with Oncology. Time Spent with Patient Time attestation: Total time spent providing and/or coordinating discharge services: Discharge coordination time: Greater than 30 minutes Quality: Safe Use of Opioids Does Pt have an Active Cancer Diagnosis on the Problem List?: Yes Opioid Measure Date for [facility] Report: 12/09/21 Opioid Measure Time for [facility] Report: 12:29 Quality: Stroke Does the patient have a stroke diagnosis?: No Physical Exam Vital Signs: Vital Signs: Last Vital Signs Temp 98.8 F 01/07/22 23:49 Pulse 83 01/08/22 09:06 Resp 18 01/08/22 09:06 BP 140/85 H 01/08/22 09:06 Pulse Ox 96 01/08/22 09:06 O2 Del Method 01/08/22 09:06 BMI result Body Mass Index 30.9 General: AO X 3, no acute distress Resp: CTA bilateral, no accessory muscles used CVS: S1,S2,RRR GI: soft, non tender, non distended Neuro: motor grossly intact, alert Psych: appropriate affect, appropriate insight DS: Data Data Completed and Pending Labs on day of discharge: Laboratory Results - last 24 hr 01/07/22 01/07/22 01/07/22 13:08 16:48 19:16 WBC RBC Hgb Hct MCV MCH MCHC RDW Plt Count MPV Immature Gran % (Auto) Neut % (Auto) Lymph % (Auto) [place] % (Auto) Eos % (Auto) Baso % (Auto) Lymph # (Auto) [place] # (Auto) Eos # (Auto) Baso # (Auto) Abs Immat Gran (auto) Absolute Neuts (auto) Absolute Nucleated RBC Nucleated RBC % (auto) Smear Tech's Comments Sodium Potassium Chloride Carbon Dioxide Anion Gap BUN Creatinine Estim Creat Clear Calc Estimated GFR Random Glucose Calcium COVID-19 (OLAYINKA) Negative COVID-19 Clin Com See Note Blood Type A Positive A Positive Antibody Screen NEGATIVE NEGATIVE Crossmatch See Detail See Detail 01/08/22 01/08/22 04:21 04:21 WBC 0.8 L* RBC 2.61 L Hgb 7.6 L Hct 21.3 L MCV 81.6 MCH 29.1 MCHC 35.7 H RDW 14.1 Plt Count 36 L D MPV 9.6 Immature Gran % (Auto) 0.0 Neut % (Auto) 6.6 L Lymph % (Auto) 62.7 H [place] % (Auto) 24.0 H Eos % (Auto) 6.7 H Baso % (Auto) 0.0 Lymph # (Auto) 0.5 L [place] # (Auto) 0.2 Eos # (Auto) 0.1 Baso # (Auto) 0.0 Abs Immat Gran (auto) 0.00 Absolute Neuts (auto) 0.1 L Absolute Nucleated RBC 0.000 Nucleated RBC % (auto) 0.0 Smear Tech's Comments VERIFIED Sodium 141 Potassium 3.3 Chloride 103 Carbon Dioxide 28 Anion Gap 13 BUN 26 H Creatinine 1.07 Estim Creat Clear Calc 63.3 Estimated GFR 52 Random Glucose 105 Calcium 7.9 L COVID-19 (OLAYINKA) COVID-19 Clin Com Blood Type Antibody Screen Crossmatch Discharge Plan Discharge Anticipated Discharge Date/Time: 01/08/22 12:27 Patient Disposition: Home, Self-Care Discharge Diagnosis: pancytopenia Referrals: Daphne Rodriguez MD [Primary Care Provider] - 1 Week Discharge Medications: Continued Anoro Ellipta 62.5-25 mcg/actuation blister with device 1 ea PO DAILY Qty: 60 0RF metoprolol ta-hydrochlorothiaz 50-25 mg Tablet 1 tab PO DAILY aspirin [Brenda Low Dose Aspirin] 81 mg Tablet,Delayed Release (Dr/Ec) 81 mg PO DAILY paroxetine HCl 30 mg Tablet 60 mg PO DAILY simvastatin 20 mg Tablet 20 mg PO BEDTIME omeprazole 20 mg Capsule,Delayed Release(Dr/Ec) 20 mg PO DAILY diltiazem HCl 180 mg Capsule,Ext.Rel 24h Degradable 180 mg PO DAILY cholecalciferol (vitamin D3) [Vitamin D3] 50 mcg (2,000 unit) Capsule 50 mcg PO DAILY Savella 50 mg Tablet 50 mg PO BID docusate sodium [Colace] 100 mg capsule 100 mg PO BID Qty: 60 2RF nicotine 21 mg/24 hr patch 24 hour 1 patch topical DAILY folic acid 1 mg Tablet 1 mg PO DAILY Qty: 60 3RF ondansetron 8 mg Tablet,Disintegrating 8 mg PO Q8H PRN (Reason: Nausea) Qty: 60 3RF dexamethasone 4 mg Tablet 4 mg PO BID Qty: 30 3RF Rx Instructions: take for 2 days after chemo albuterol sulfate [ProAir HFA] 90 mcg/actuation HFA aerosol inhaler 2 puff INHALATION Q4H PRN (Reason: Wheezing) buprenorphine-naloxone 4-1 mg Film 1 film sublingual DAILY ipratropium-albuterol 0.5 mg-3 mg(2.5 mg base)/3 mL solution for nebulization 3 ml inhalation Q6-8H PRN (Reason: wheezing) 30 Days Qty: 270 6RF Discharge Orders: Discharge Order (Routine); Ordered 01/08/22 Ordered By: Joel Brink Diet: Advance to usual diet Activity on Discharge: As tolerated Stand Alone Forms: Patient Portal Discharge page Care Plan Goals: manage pancytopenia Health Concerns: pancytopneia Plan of Treatment: follow up oncology Assessment: see above
== END 2022-01-08 13:06 | disposition home or self-care (01) | DRG 660 ==
LOC: HO.ED 18:48 → HO.EDOVER 23:53
PROVIDERS: Admitting Provider Hospitalist; Emergency Provider Emergency Medicine; PCP Pediatrics; Visit Provider Internal Medicine
DX: D61.810 Antineoplastic chemotherapy induced pancytopenia (principal); C79.51 Secondary malignant neoplasm of bone; C34.91 Malignant neoplasm of unspecified part of right bronchus or lung; C34.92 Malignant neoplasm of unspecified part of left bronchus or lung; F11.20 Opioid dependence, uncomplicated; F41.9 Anxiety disorder, unspecified; F32.A Depression, unspecified; T45.1X5A Adverse effect of antineoplastic and immunosuppressive drugs, initial encounter; F17.210 Nicotine dependence, cigarettes, uncomplicated; Z71.6 Tobacco abuse counseling; Z90.2 Acquired absence of lung [part of]; Z85.3 Personal history of malignant neoplasm of breast; Z88.5 Allergy status to narcotic agent; Z88.8 Allergy status to other drugs, medicaments and biological substances; Z79.82 Long term (current) use of aspirin; Z79.899 Other long term (current) drug therapy
CPT/HCPCS: 36415; 70450; 80048; 85025; 86850; 86900; 86901; 86920; 86923; 87635; 99284; J1447; P9016; P9073

== ENCOUNTER 2022-01-18 00:52 | Inpatient (IN) | payer MEDICAID, SELFPAY ==
[2022-01-18] VITALS (15 sets, daily range): BP systolic 100–160; BP diastolic 64–93; PULSE 63–105; RESP 12–20; TEMP 36.1–37; O2SAT 85–100; BMI 33.5
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
[2022-01-18] MEDS: Albuterol Sulfate (0.083%) 2.5 MG/3 ML VIAL.NEB 10 MG INHALE (01:22)
[2022-01-18 01:31] LABS: Hematocrit 23.8 % (37.0-47.0); Hemoglobin 8.3 g/dl (12.0-16.0); Mean Corpuscular HGB Conc 34.9 g/dl (31.0-35.0); Mean Corpuscular Hemoglobin 30.5 pg (27.0-33.0); Mean Corpuscular Volume 87.5 fL (80.0-98.0); Red Blood Count 2.72 X10*6/uL (4.20-5.50); Red Cell Distribution Width 17.8 % (11.0-16.0)
[2022-01-18 01:33] LABS: Platelet Count 81 X10*3/uL (160-400); WBC ABN SCTR FOR CBC 1
[2022-01-18] MEDS: methylPREDNISolone Sod Succ 125 MG/2 ML VIAL IVPUSH (01:35)
[2022-01-18] MEDS: Magnesium Sulfate/H2O 2 GM/50 ML PIGGYBACK IV (01:35)
[2022-01-18] MEDS: 0.9 % Sodium Chloride 2,000 ML 999 ML IVCONT (01:38)
[2022-01-18 01:45] LABS: Prothrombin Time 11.4 SEC (10.0-13.1)
[2022-01-18] MEDS: cefEPime HCl 2 GM in 0.9 % Sodium Chloride 50 ML IV (01:46)
[2022-01-18 01:47] LABS: D Dimer High Sensitivity 2378 NG/ML
[2022-01-18 01:51] LABS: Band Neutrophils Percent 6 % (3-5); Monocytes Percent Manual 2 % (2-11); Neutrophils Percent Manual 92 % (45-73); RBC Morphology NOTED
[2022-01-18 01:52] LABS: Dohle Bodies PRESENT; Macrocytosis 1+ (5-14) /OIF; Ovalocytes 1+ (5-14) /OIF; Platelet Estimate DECREASED (NORMAL); Platelet Morphology Comment NORMAL; Smudge Cells PRESENT; Toxic Granulation PRESENT
[2022-01-18 01:53] LABS: Alanine Aminotransferase 16 U/L (0-31); Albumin Level 3.9 g/dL (3.5-5.0); Alkaline Phosphatase 82 U/L (39-117); Anion Gap 17 (12-20); Aspartate Amino Transferase 19 U/L (5-31); Bilirubin Direct < 0.2 mg/dL (0.0-0.5); Bilirubin Total 0.3 mg/dL (0.0-1.0); Blood Urea Nitrogen 34 mg/dL (9-16); Calcium 8.3 mg/dL (8.4-10.2); Carbon Dioxide 28 mmol/L (22-29); Chloride 98 mmol/L (96-108); Creatinine Clr Calc Pharmacy 47.4; Estimated Glomerular Filt Rate 36; Glucose Random 153 mg/dL (60-115); Potassium 3.7 mmol/L (3.3-5.1); Sodium 139 mmol/L (135-145); Total Protein 7.1 g/dL (6.5-8.0)
[2022-01-18 01:55] LABS: B Type Natriuretic Peptide 1033 pg/mL (<100); Monocytes Absolute Manual 0.9 X10*3/uL (0.1-1.2); Neutrophils Absolute Manual 41.9 X10*3/uL (2.0-8.3); White Blood Count 42.8 X10*3/uL (4.8-10.8)
[2022-01-18 02:04] LABS: Troponin-I High Sensitivity 72.4 ng/L (<3.5-17.0)
[2022-01-18 02:04] LABS: Lactic Acid 2.1 mmol/L (0.5-2.0)
[2022-01-18 02:06] LABS: COVID-19 Test Negative (Negative)
[2022-01-18] MEDS: iohexoL 350 MG/ML 100 ML INFUS..BTL IV (02:14)
[2022-01-18 03:28] LABS: Reflex Lactate? Lactic Acid Added
[2022-01-18] MEDS: Furosemide 40 MG/4 ML VIAL IVPUSH (03:46)
[2022-01-18 04:20] LABS: ~Lactic Acid-LAB USE ONLY 2.3 mmol/L (0.5-2.0)
--- NOTE | 2022-01-18 04:57 | PM.IMHP ---
History of Present Illness Date of Service: 01/18/22 Chief Complaint: SOB 61-year-old female with past medical history of COPD, non-small cell lung cancer, history of breast cancer, depression, history of hepatitis-C, HTN, presents to the hospital with complaints of shortness of breath x1 day. Patient reports that she started with a sore throat the day prior then developed significant shortness of breath, cough and sputum production on day of presentation. She denies any chest pain, no palpitations, no abdominal pain, no diarrhea constipation, no urinary symptoms. She does have orthopnea and PND. Denies any lower extremity edema.She denies any back pain On arrival to the ED patient found to be hypertensive and noted to drop in O2 to 85% on room air. Currently on 3 L satting 95% Labs are significant for WBC count of 42.8, hemoglobin of 8.3, hematocrit of 23.8 which is her baseline, pH of 7.34, CO2 of 55, creatinine of 1.49 with a baseline of around 1.07, lactic acid of 2.1, troponin of 72.4, BNP of 1033, Chest CT angiogram shows no PE, small pleural effusions, improved right lower lobe aeration compared to prior imaging, couple focal right lower lobe nodule densities decreased in size, there is partial loss of height of the T6 vertebral body which is new from previous, appearance concerning 5 breath a logical fracture was subacute time course, there is additional sclerotic foci noted in the spine. Patient started on IV Lasix, given Solu-Medrol will be admitted for further management Review of Systems Review of Systems: Yes all other systems are reviewed and are negative [facility] Medical History Bilateral lung cancer Cancer of upper lobe of left lung (~2020) Cancer of upper lobe of right lung (~2019) COPD (chronic obstructive pulmonary disease) Depression GERD (gastroesophageal reflux disease) History of breast cancer (~2006) History of hepatitis C HTN (hypertension) Internal and external bleeding hemorrhoids Obesity Pulmonary nodules Smoker Tubular adenoma of colon Family History Mother History of lung cancer Brother History of lung cancer Maternal Grandmother Breast cancer in female Maternal Aunt Breast cancer in female Daughter Thyroid cancer Surgical History History of anterior colporrhaphy (~2016) History of back surgery (~2011) History of colonoscopy (~2014) History of hemorrhoidectomy (~2019) History of lobectomy of lung (~2019) History of lumpectomy of right breast (~2006) History of lung surgery (~2020) History of tubal ligation Social History Household Members: Significant Other and None Housing: Apartment Are you a primary acute care nurse to a significant other at home: No Do you presently have visiting nurse or other home services: No Alcohol intake: never Patient Tobacco Use Status: Current someday Tobacco user Tobacco use type: Cigarette Years Smoked: 46 Substance Use Type: Marijuana Advance Directives: No Advance Directives Information Provided: No service: No Current occupational status: disabled Current occupational exposures/hazards: No Meds Allergies Allergy/AdvReac Type Severity Reaction Status Date / Time lisinopril [LISINOPRIL] Allergy Severe SWELLING- Verified 01/15/22 12:39 ANGIOEDEMA codeine [CODEINE] Allergy Intermediate VOMITING/HIVES, Verified 01/15/22 12:39 vomiting, hives Active Medications: Current Medications Acetaminophen (Acetaminophen 325 Mg Tablet) 650 mg PO Q6H PRN PRN Reason: Pain, Mild (Pain Scale 1-3) Docusate Sodium (Docusate Sodium 100 Mg Capsule) 100 mg PO DAILY PRN PRN Reason: Constipation Heparin Sodium (Porcine) (Heparin Sodium,Porcine 5,000 Unit/Ml Vial) 5,000 unit SUBCUT Q12H [facility] Ondansetron HCl (Ondansetron Hcl 4 Mg/2 Ml Vial) 4 mg IVPUSH Q8H PRN PRN Reason: Nausea and Vomiting Sodium Chloride (0.9 % Sodium Chloride Flush 3 Ml Syringe) 3 ml IVFLUSH QSHIFT [facility] Home Medications Medication Instructions Recorded Confirmed Last Taken Type aspirin 81 mg tablet,delayed 1 tab PO DAILY 01/18/22 01/18/22 Unknown History release buprenorphine 4 mg-naloxone 1 mg 1 strip sublingual DAILY 01/18/22 01/18/22 Unknown History sublingual film (Suboxone) diltiazem HCl 180 mg 1 cap PO DAILY 01/18/22 01/18/22 Unknown History capsule,extended release 24 hr, controlled (DILT-XR) docusate sodium 100 mg capsule 1 cap PO BEDTIME PRN Constipation 01/18/22 01/18/22 Unknown History folic acid 1 mg tablet 1 tab PO DAILY 01/18/22 01/18/22 Unknown History metoprolol tartrate 50 1 tab PO DAILY 01/18/22 01/18/22 Unknown History mg-hydrochlorothiazide 25 mg tablet milnacipran 50 mg tablet (Savella) 1 tab PO BID 01/18/22 01/18/22 Unknown History omeprazole 20 mg capsule,delayed 1 cap PO DAILY 01/18/22 01/18/22 Unknown History release paroxetine HCl 20 mg tablet 3 tab PO DAILY 01/18/22 01/18/22 Unknown History umeclidinium 62.5 mcg-vilanterol 1 puff inhalation DAILY 01/18/22 01/18/22 Unknown History 25 mcg/actuation powdr for inhalation (Anoro Ellipta) Physical Exam Vital Signs and Narrative: Vital Signs: Last Vital Signs Temp 98.0 F 01/18/22 04:21 Pulse 79 01/18/22 04:21 Resp 20 01/18/22 04:21 BP 160/79 H 01/18/22 04:21 Pulse Ox 100 01/18/22 04:21 O2 Del Method 01/18/22 04:21 O2 Flow Rate 2 01/18/22 04:21 Oxygen Flow Rate 3 01/18/22 00:59 BMI result Body Mass Index 33.5 Const: General: cooperative and no acute distress Orientation/consciousness: patient oriented x3 Eyes: General: appearance normal, both eyes and all related structures Resp: Other: Diminished breath sounds Effort & Inspection: normal respiratory effort Cardio: Rate: regular rate Rhythm: regular rhythm GI: Palpation (GI): Soft to palpation Auscultation: normal bowel sounds Skin: General skin exam: no rashes or lesions noted Neuro: General: patient oriented x3 Cognition (Neuro): normal cognition Extrem: General: Yes normal to inspection Results Labs CBC and Chem 7: 01/18/22 01:24 01/18/22 01:25 Labs: Laboratory Results - last 24 hr 01/18/22 01/18/22 01/18/22 01:24 01:24 01:24 MCV 87.5 D MCH 30.5 MCHC 34.9 RDW 17.8 H Plt Count 81 L D MPV 10.0 Immature Gran % (Auto) Cancelled Neut % (Auto) Cancelled Lymph % (Auto) Cancelled Meigs % (Auto) Cancelled Eos % (Auto) Cancelled Baso % (Auto) Cancelled Lymph # (Auto) Cancelled Meigs # (Auto) Cancelled Eos # (Auto) Cancelled Baso # (Auto) Cancelled Abs Immat Gran (auto) Cancelled Absolute Neuts (auto) Cancelled Absolute Nucleated RBC 0.000 Nucleated RBC % (auto) 0.0 Neutrophils % (Manual) 92 H Band Neutrophils % 6 H Monocytes % (Manual) 2 Abs Neuts (Manual) 41.9 H Monocytes # (Manual) 0.9 Smudge Cells PRESENT Toxic Granulation PRESENT Dohle Bodies PRESENT Platelet Estimate DECREASED Plt Morphology Comment NORMAL RBC Morphology NOTED Macrocytosis 1+ (5-14) Ovalocytes 1+ (5-14) PT INR D-Dimer High Sensitivty VBG pH VBG pCO2 VBG pO2 VBG HCO3 VBG O2 Saturation VBG Base Excess Anion Gap Estim Creat Clear Calc Estimated GFR Random Glucose Lactic Acid Lactic Acid F/U @ 2Hr Calcium Total Bilirubin Direct Bilirubin AST ALT Alkaline Phosphatase Troponin I High Sens 72.4 H* B-Natriuretic Peptide 1033 H Total Protein Albumin COVID-19 ([facility]) COVID-19 Clin Com 01/18/22 01/18/22 01/18/22 01:25 01:25 01:25 MCV MCH MCHC RDW Plt Count MPV Immature Gran % (Auto) Neut % (Auto) Lymph % (Auto) Meigs % (Auto) Eos % (Auto) Baso % (Auto) Lymph # (Auto) Meigs # (Auto) Eos # (Auto) Baso # (Auto) Abs Immat Gran (auto) Absolute Neuts (auto) Absolute Nucleated RBC Nucleated RBC % (auto) Neutrophils % (Manual) Band Neutrophils % Monocytes % (Manual) Abs Neuts (Manual) Monocytes # (Manual) Smudge Cells Toxic Granulation Dohle Bodies Platelet Estimate Plt Morphology Comment RBC Morphology Macrocytosis Ovalocytes PT 11.4 INR 1.0 D-Dimer High Sensitivty 2378 VBG pH VBG pCO2 VBG pO2 VBG HCO3 VBG O2 Saturation VBG Base Excess Anion Gap 17 Estim Creat Clear Calc 47.4 Estimated GFR 36 Random Glucose 153 H Lactic Acid 2.1 H* Lactic Acid F/U @ 2Hr Calcium 8.3 L Total Bilirubin 0.3 Direct Bilirubin < 0.2 AST 19 ALT 16 Alkaline Phosphatase 82 Troponin I High Sens B-Natriuretic Peptide Total Protein 7.1 Albumin 3.9 COVID-19 ([facility]) COVID-19 Clin Com 01/18/22 01/18/22 01/18/22 01:26 01:30 03:41 MCV MCH MCHC RDW Plt Count MPV Immature Gran % (Auto) Neut % (Auto) Lymph % (Auto) Meigs % (Auto) Eos % (Auto) Baso % (Auto) Lymph # (Auto) Meigs # (Auto) Eos # (Auto) Baso # (Auto) Abs Immat Gran (auto) Absolute Neuts (auto) Absolute Nucleated RBC Nucleated RBC % (auto) Neutrophils % (Manual) Band Neutrophils % Monocytes % (Manual) Abs Neuts (Manual) Monocytes # (Manual) Smudge Cells Toxic Granulation Dohle Bodies Platelet Estimate Plt Morphology Comment RBC Morphology Macrocytosis Ovalocytes PT INR D-Dimer High Sensitivty VBG pH 7.34 VBG pCO2 55 VBG pO2 37 VBG HCO3 30 H VBG O2 Saturation 60.0 VBG Base Excess 3.5 Anion Gap Estim Creat Clear Calc Estimated GFR Random Glucose Lactic Acid Lactic Acid F/U @ 2Hr 2.3 H* Calcium Total Bilirubin Direct Bilirubin AST ALT Alkaline Phosphatase Troponin I High Sens B-Natriuretic Peptide Total Protein Albumin COVID-19 ([facility]A) Negative COVID-19 Clin Com See Note Imaging Radiologist's Impressions: Impressions Chest CTA 01/18/22 02:15 IMPRESSION: 1. No pulmonary embolus identified. 2. Partial loss of height of the T6 vertebral body, new from prior with a heterogeneously sclerotic appearance. Appearance is concerning for pathologic fracture with subacute time course, and this could be further assessed with MRI as clinically warranted. A few additional sclerotic foci are also noted in the spine, most prominently at T12 which appears new from prior and is suspicious for metastasis. 3. Small pleural effusions. 4. Improved right lower lobe aeration compared to prior. A couple focal right lower lobe nodule densities have also decreased in size; attention on follow-up recommended. 5. Postoperative changes from right upper lobectomy and partial left upper lobe resection. VTE: negative Assessment and Plan (1) Acute respiratory failure with hypoxia: Status: Acute (2) Acute exacerbation of CHF (congestive heart failure): Qualifiers: Heart failure type: unspecified Qualified Code(s): I50.9 - Heart failure, unspecified Status: Acute (3) COPD with acute exacerbation: Status: Acute (4) Pleural effusion: Status: Acute (5) Leukocytosis: Status: Acute (6) VIKTORIYA (acute kidney injury): Status: Acute (7) T6 vertebral fracture: Status: Acute (8) Bone metastases: Status: Acute Plan 61-year-old female who is actively being treated for non-small lung cancer as well as COPD presents to the hospital with complaints of dyspnea. # acute hypoxic respiratory failure - likely multifactorial secondary to CHF as well as COPD exacerbation, has elevated BNP, has cough, sputum production with history of COPD no evidence of PE on CT angiogram - no documented history of CHF - at this time will treat with Solu-Medrol, DuoNeb p.r.n. as well as scheduled, will also start her on furosemide, - monitor respiratory status - continue O2 as required, with a goal of O2 of 88-92% given her underlying COPD # acute COPD exacerbation - dyspnea, cough, increased sputum production - no evidence of pneumonia - will treat with Solu-Medrol, DuoNeb - titrate oxygen off as tolerated # acute CHF exacerbation - No history of CHF on documentation, the patient denies history of - has elevated BNP, evidence of pleural effusion on CT angiogram - will treat with Lasix, strict I&O, daily weight, as well as low-sodium diet - echocardiogram, cardiology consulted # VIKTORIYA - elevated creatinine likely secondary to CHF - will treat with Lasix - follow BMP # leukocytosis - unclear etiology at this time - no evidence of pneumonia - follow CBC # pathological fracture of T6 - concerning for bone metastasis which appears to be new - will consult Hematology-Oncology - patient denies pain at this time # HTN - elevated - continue home antihypertensives DVT prophylaxis: Heparin subQ Pt will require a minimum 2 night hospital stay for management of hypoxic respiratory failure with oxygen, as well as IV Lasix, and management of COPD with IV Solu-Medrol and breathing treatments Quality Stroke Does the patient have a stroke diagnosis?: No VTE Prior VTE?: No VTE Risk Level:: Medical - moderate - high VTE Device Contraindication: Treatment Not Indicated VTE Drug Contraindication: N/A - Med Ordered
[2022-01-18] MEDS: Heparin Sodium,Porcine 5,000 UNIT/ML VIAL 5000 UNIT SUBCUT ×2 (05:25→16:16)
[2022-01-18 06:35] LABS: Hematocrit 22.6 % (37.0-47.0); Hemoglobin 7.7 g/dl (12.0-16.0); Mean Corpuscular HGB Conc 34.1 g/dl (31.0-35.0); Mean Corpuscular Volume 87.9 fL (80.0-98.0); Mean Platelet Volume 10.9 fL (9.4-12.3); Red Blood Count 2.57 X10*6/uL (4.20-5.50); Red Cell Distribution Width 18.2 % (11.0-16.0)
[2022-01-18 06:45] LABS: Anion Gap 21 (12-20); Blood Urea Nitrogen 33 mg/dL (9-16); Calcium 8.2 mg/dL (8.4-10.2); Carbon Dioxide 26 mmol/L (22-29); Chloride 98 mmol/L (96-108); Creatinine Clr Calc Pharmacy 48.8; Estimated Glomerular Filt Rate 37; Glucose Random 159 mg/dL (60-115); Platelet Count 78 X10*3/uL (160-400); Potassium 3.6 mmol/L (3.3-5.1); Sodium 141 mmol/L (135-145); White Blood Count 35.7 X10*3/uL (4.8-10.8)
[2022-01-18 06:46] LABS: ~Lactic Acid-LAB USE ONLY 3.3 mmol/L (0.5-2.0)
[2022-01-18 06:56] LABS: Troponin-I High Sensitivity 68.4 ng/L (<3.5-17.0)
[2022-01-18 07:10] LABS: Band Neutrophils Percent 6 % (3-5); Neutrophils Absolute Manual 35.7 X10*3/uL (2.0-8.3); Neutrophils Percent Manual 94 % (45-73)
[2022-01-18 07:11] LABS: Acanthocytes 1+ (0-2) /OIF; Macrocytosis 1+ (5-14) /OIF; Ovalocytes 2+ (15-30) /OIF; Platelet Estimate DECREASED (NORMAL); Platelet Morphology Comment NORMAL; RBC Morphology NOTED
[2022-01-18 07:12] LABS: Tear Drop Cells 2+ (3-5) /OIF
[2022-01-18 07:13] LABS: Dohle Bodies PRESENT; Polychromasia 1+ (0-2) /OIF; Toxic Granulation PRESENT
--- NOTE | 2022-01-18 07:24 | P.EN_ITS ---
Pt with metastatic lung cancer, on palliative chemotherapy. Elevated WBC count secondary to neulasta which she received last week. Anemia and thromcocytopenia related to chemotherapy. SOB could be related to COPD, anemia, ? CHF. Please evaluate with ECHO/tuber operator.
[2022-01-18 07:35] LABS: Lactic Acid 4.4 mmol/L (0.5-2.0)
[2022-01-18] MEDS: Albuterol/Iprat 2.5/0.5MG 3 ML AMPUL.NEB INHALE ×3 (07:54→19:04)
[2022-01-18] MEDS: Azithromycin 500 MG TABLET PO (08:01)
[2022-01-18] MEDS: Omeprazole 20 MG CAPSULE.DR PO (08:01)
[2022-01-18] MEDS: dilTIAZem HCL CD 180 MG CAP.ER.24H PO (08:01)
[2022-01-18] MEDS: Metoprolol Tartrate 50 MG TABLET PO (08:02)
[2022-01-18] MEDS: hydroCHLOROthiazide 25 MG TABLET PO (08:02)
[2022-01-18] MEDS: Folic Acid 1 MG TABLET PO (08:02)
[2022-01-18] MEDS: PARoxetine HCL 30 MG TABLET 60 MG PO (08:03)
[2022-01-18] MEDS: methylPREDNISolone Sod Succ 40 MG/ML VIAL IVPUSH ×2 (08:03→20:44)
[2022-01-18] MEDS: Buprenorphine/Naloxone 4/1 mg FILM 1 FILM SUBLINGUAL (08:05)
[2022-01-18 09:37] LABS: ~Lactic Acid-LAB USE ONLY 3.2 mmol/L (0.5-2.0)
[2022-01-18 12:26] LABS: ~Lactic Acid-LAB USE ONLY 2.9 mmol/L (0.5-2.0)
--- NOTE | 2022-01-18 12:27 | PM.CNCAR ---
History of Present Illness History of Present Illness Date of Service: 01/18/22 Consult reason: shortness of breath and other (Elevated BNP) Chief complaint: Hypoxic respiratory failure, CHF Narrative: I was consulted to see Elida in cardiology consultation today for shortness of breath and elevated BNP. She is a 61-year-old female with prior history of COPD on nebulizers at home and no oxygen therapy, chronically short of breath at rest with walking. She also has metastatic cancer for long. She has no known history of coronary artery disease. Yesterday she says the morning she felt sore throat and subsequently started noticing shortness of breath. She did not feel any chest tightness or wheezing. Did not have any increased cough or phlegm production or change in her sputum color. She then continued to got gradually worse at nighttime was very short of breath and came to the emergency room. In the emergency room she was noted to have elevated BNP without any other obvious findings of heart failure. She has not had any recent leg swelling. She was given oxygen therapy for COPD exacerbation as well as diuretics. Says since then she has been feeling well. Review of Systems Constitutional: Constitutional: Reports no additional constitutional complaints Eyes: Eyes: Reports no additional eye complaints ENT: Reports sore throat Cardiovascular: Cardiovascular: Denies chest pain, Denies leg edema, Denies lightheadedness, Denies Loss of Consciousness, Denies palpitations and Reports dyspnea Respiratory: Respiratory: Denies change in phlegm color, Reports cough, Denies hemoptysis, Denies excessive phlegm production, Denies pain with cough and Reports dyspnea Gastrointestinal: Gastrointestinal: Reports no additional gastrointestinal complaints Genitourinary: Genitourinary: Reports no additional female genitourinary complaints Musculoskeletal: Musculoskeletal: Reports no additional musculoskeletal complaints Integumentary/Breasts: Skin/Breast: Reports system reviewed and no additional complaints, except as docu Neurologic: Reports system reviewed and no additional complaints, except as documented Psychiatric: Psychiatric: Reports no additional psychiatric complaints Endocrine: Endocrine: Reports no additional endocrine complaints and Denies palpitations Hematologic/Lymphatic: Hematologic/Lymphatic: Reports no additional hematologic/lymphatic complaints Allergic/Immunologic: Allergic/Immunologic: Reports no additional allergic/immunologic complaints PMFSH Past Medical History Medical History Bilateral lung cancer Cancer of upper lobe of left lung (~2020) Cancer of upper lobe of right lung (~2019) COPD (chronic obstructive pulmonary disease) Depression GERD (gastroesophageal reflux disease) History of breast cancer (~2006) History of hepatitis C HTN (hypertension) Internal and external bleeding hemorrhoids Obesity Pulmonary nodules Smoker Tubular adenoma of colon Family History Family History Mother History of lung cancer Brother History of lung cancer Maternal Grandmother Breast cancer in female Maternal Aunt Breast cancer in female Daughter Thyroid cancer Surgical History Surgical History History of anterior colporrhaphy (~2016) History of back surgery (~2011) History of colonoscopy (~2014) History of hemorrhoidectomy (~2019) History of lobectomy of lung (~2019) History of lumpectomy of right breast (~2006) History of lung surgery (~2020) History of tubal ligation Social History Social History Household Members: Significant Other and None Housing: Apartment Are you a primary adult daycare coordinator to a significant other at home: No Do you presently have visiting nurse or other home services: No Alcohol intake: never Patient Tobacco Use Status: Current someday Tobacco user Tobacco use type: Cigarette Years Smoked: 46 Substance Use Type: Marijuana Advance Directives: No Advance Directives Information Provided: No service: No Current occupational status: disabled Current occupational exposures/hazards: No Meds Allergies Allergy/AdvReac Type Severity Reaction Status Date / Time lisinopril [LISINOPRIL] Allergy Severe SWELLING- Verified 01/15/22 12:39 ANGIOEDEMA codeine [CODEINE] Allergy Intermediate VOMITING/HIVES, Verified 01/15/22 12:39 vomiting, hives Active Medications: Current Medications Acetaminophen (Acetaminophen 325 Mg Tablet) 650 mg PO Q6H PRN PRN Reason: Pain, Mild (Pain Scale 1-3) Albuterol/Ipratropium (Albuterol/Iprat 2.5/0.5mg 3 Ml Ampul.Neb) 3 ml INHALE RQ4H PRN PRN Reason: Shortness of Breath/Wheezing Albuterol/Ipratropium (Albuterol/Iprat 2.5/0.5mg 3 Ml Ampul.Neb) 3 ml INHALE RQ4H WHILE AWAKE [facility] Last Admin: 01/18/22 07:54 Dose: 3 ml Aspirin (Aspirin Enteric Coated 81 Mg Tablet.) 81 mg PO DAILY [facility] Last Admin: 01/18/22 08:09 Dose: Not Given Azithromycin (Azithromycin 500 Mg Tablet) 500 mg PO DAILY [facility] Last Admin: 01/18/22 08:01 Dose: 500 mg Buprenorphine/Naloxone (Buprenorphine/Naloxone 4/1 Mg Film) 1 film SUBLINGUAL DAILY [facility] Last Admin: 01/18/22 08:05 Dose: 1 film Diltiazem HCl (Diltiazem Hcl Cd 180 Mg Cap.Er.24h) 180 mg PO DAILY [facility]; Protocol Last Admin: 01/18/22 08:01 Dose: 180 mg Docusate Sodium (Docusate Sodium 100 Mg Capsule) 100 mg PO BEDTIME PRN PRN Reason: Constipation Folic Acid (Folic Acid 1 Mg Tablet) 1 mg PO DAILY [facility] Last Admin: 01/18/22 08:02 Dose: 1 mg Heparin Sodium (Porcine) (Heparin Sodium,Porcine 5,000 Unit/Ml Vial) 5,000 unit SUBCUT Q12H [facility] Last Admin: 01/18/22 05:25 Dose: 5,000 unit Hydrochlorothiazide (Hydrochlorothiazide 25 Mg Tablet) 25 mg PO DAILY [facility] Last Admin: 01/18/22 08:02 Dose: 25 mg Methylprednisolone Sodium Succinate (Methylprednisolone Sod Succ 40 Mg/Ml Vial) 40 mg IVPUSH BID [facility] Last Admin: 01/18/22 08:03 Dose: 40 mg Metoprolol Tartrate (Metoprolol Tartrate 50 Mg Tablet) 50 mg PO DAILY [facility] Last Admin: 01/18/22 08:02 Dose: 50 mg Non-Formulary Medication (Milnacipran [Savella]) 1 tab PO BID [facility] Non-Formulary Medication (Umeclidinium-Vilanterol [Anoro Ellipta]) 1 puff INHALE DAILY [facility] Omeprazole (Omeprazole 20 Mg Capsule.) 20 mg PO DAILY [facility] Last Admin: 01/18/22 08:01 Dose: 20 mg Ondansetron HCl (Ondansetron Hcl 4 Mg/2 Ml Vial) 4 mg IVPUSH Q8H PRN PRN Reason: Nausea and Vomiting Paroxetine HCl (Paroxetine Hcl 30 Mg Tablet) 60 mg PO DAILY [facility] Last Admin: 01/18/22 08:03 Dose: 60 mg Sodium Chloride (0.9 % Sodium Chloride Flush 3 Ml Syringe) 3 ml IVFLUSH QSHIFT WALTER Last Admin: 01/18/22 07:39 Dose: Not Given Home Medications Medication Instructions Recorded Confirmed Last Taken Type aspirin 81 mg tablet,delayed 81 mg PO DAILY 01/18/22 01/18/22 Unknown History release buprenorphine 4 mg-naloxone 1 mg 1 strip sublingual DAILY 01/18/22 01/18/22 Unknown History sublingual film (Suboxone) diltiazem HCl 180 mg 180 mg PO DAILY 01/18/22 01/18/22 Unknown History capsule,extended release 24 hr, controlled (DILT-XR) docusate sodium 100 mg capsule 1 cap PO BEDTIME PRN Constipation 01/18/22 01/18/22 Unknown History folic acid 1 mg tablet 1 mg PO DAILY 01/18/22 01/18/22 Unknown History metoprolol tartrate 50 1 tab PO DAILY 01/18/22 01/18/22 Unknown History mg-hydrochlorothiazide 25 mg tablet milnacipran 50 mg tablet (Savella) 50 mg PO BID 01/18/22 01/18/22 Unknown History omeprazole 20 mg capsule,delayed 20 mg PO DAILY 01/18/22 01/18/22 Unknown History release paroxetine HCl 20 mg tablet 60 mg PO DAILY 01/18/22 01/18/22 Unknown History umeclidinium 62.5 mcg-vilanterol 1 puff inhalation DAILY 01/18/22 01/18/22 Unknown History 25 mcg/actuation powdr for inhalation (Anoro Ellipta) Physical Exam Vital Signs: Vital Signs: Last Vital Signs Temp 98.6 F 01/18/22 10:36 Pulse 66 01/18/22 10:36 Resp 14 01/18/22 10:36 BP 149/93 H 01/18/22 10:36 Pulse Ox 95 01/18/22 10:36 O2 Del Method 01/18/22 10:36 O2 Flow Rate 1.5 01/18/22 10:36 Oxygen Flow Rate 3 01/18/22 00:59 BMI result Body Mass Index 33.5 Const: General: cooperative, comfortable, no acute distress, alert and awake Nutritional Appearance: obese Orientation/consciousness: patient oriented x3 HEENT: Head: Yes normocephalic and Yes atraumatic Neck: Neck: Yes trachea midline, Yes supple and Yes no JVD Resp: Effort & Inspection: normal respiratory effort Auscultation: no crackles, no rales, no wheezes and diminished lung sounds Cardio: Jugular venous distension: no JVD Palpation: normal PMI Rate: regular rate Rhythm: regular rhythm Heart sounds: S1 normal heart sound present, S2 normal heart sound present, no click, no gallops and no murmurs GI: Auscultation: normal bowel sounds Skin: General skin exam: no rashes or lesions noted Neuro: General: patient oriented x3 and no focal motor deficits Extrem: General: Yes no clubbing, cyanosis or edema Objective Labs and Meds Result diagrams: 01/18/22 05:59 01/18/22 05:59 Lab results: Laboratory Results - last 24 hr 01/18/22 01/18/22 01/18/22 01:24 01:24 01:24 WBC 42.8 H* RBC 2.72 L Hgb 8.3 L Hct 23.8 L MCV 87.5 D MCH 30.5 MCHC 34.9 RDW 17.8 H Plt Count 81 L D MPV 10.0 Immature Gran % (Auto) Cancelled Neut % (Auto) Cancelled Lymph % (Auto) Cancelled [place] % (Auto) Cancelled Eos % (Auto) Cancelled Baso % (Auto) Cancelled Lymph # (Auto) Cancelled [place] # (Auto) Cancelled Eos # (Auto) Cancelled Baso # (Auto) Cancelled Abs Immat Gran (auto) Cancelled Absolute Neuts (auto) Cancelled Absolute Nucleated RBC 0.000 Nucleated RBC % (auto) 0.0 Neutrophils % (Manual) 92 H Band Neutrophils % 6 H Monocytes % (Manual) 2 Abs Neuts (Manual) 41.9 H Monocytes # (Manual) 0.9 Smudge Cells PRESENT Toxic Granulation PRESENT Dohle Bodies PRESENT Platelet Estimate DECREASED Plt Morphology Comment NORMAL RBC Morphology NOTED Polychromasia Macrocytosis 1+ (5-14) Tear Drop Cells Ovalocytes 1+ (5-14) Acanthocytes (Spur) PT INR D-Dimer High Sensitivty VBG pH VBG pCO2 VBG pO2 VBG HCO3 VBG O2 Saturation VBG Base Excess Sodium Potassium Chloride Carbon Dioxide Anion Gap BUN Creatinine Estim Creat Clear Calc Estimated GFR Random Glucose Lactic Acid Lactic Acid F/U @ 2Hr Lactic Acid F/U @ 4Hr Calcium Total Bilirubin Direct Bilirubin AST ALT Alkaline Phosphatase Troponin I High Sens 72.4 H* B-Natriuretic Peptide 1033 H Total Protein Albumin COVID-19 (OLAYINKA) COVID-19 [place] 01/18/22 01/18/22 01/18/22 01:25 01:25 01:25 WBC RBC Hgb Hct MCV MCH MCHC RDW Plt Count MPV Immature Gran % (Auto) Neut % (Auto) Lymph % (Auto) [place] % (Auto) Eos % (Auto) Baso % (Auto) Lymph # (Auto) [place] # (Auto) Eos # (Auto) Baso # (Auto) Abs Immat Gran (auto) Absolute Neuts (auto) Absolute Nucleated RBC Nucleated RBC % (auto) Neutrophils % (Manual) Band Neutrophils % Monocytes % (Manual) Abs Neuts (Manual) Monocytes # (Manual) Smudge Cells Toxic Granulation Dohle Bodies Platelet Estimate Plt Morphology Comment RBC Morphology Polychromasia Macrocytosis Tear Drop Cells Ovalocytes Acanthocytes (Spur) PT 11.4 INR 1.0 D-Dimer High Sensitivty 2378 VBG pH VBG pCO2 VBG pO2 VBG HCO3 VBG O2 Saturation VBG Base Excess Sodium 139 Potassium 3.7 D Chloride 98 Carbon Dioxide 28 Anion Gap 17 BUN 34 H D Creatinine 1.49 H Estim Creat Clear Calc 47.4 Estimated GFR 36 Random Glucose 153 H Lactic Acid 2.1 H* Lactic Acid F/U @ 2Hr Lactic Acid F/U @ 4Hr Calcium 8.3 L Total Bilirubin 0.3 Direct Bilirubin < 0.2 AST 19 ALT 16 Alkaline Phosphatase 82 Troponin I High Sens B-Natriuretic Peptide Total Protein 7.1 Albumin 3.9 COVID-19 (OLAYINKA) COVID-19 Vollee 01/18/22 01/18/22 01/18/22 01:26 01:30 03:41 WBC RBC Hgb Hct MCV MCH MCHC RDW Plt Count MPV Immature Gran % (Auto) Neut % (Auto) Lymph % (Auto) [place] % (Auto) Eos % (Auto) Baso % (Auto) Lymph # (Auto) [place] # (Auto) Eos # (Auto) Baso # (Auto) Abs Immat Gran (auto) Absolute Neuts (auto) Absolute Nucleated RBC Nucleated RBC % (auto) Neutrophils % (Manual) Band Neutrophils % Monocytes % (Manual) Abs Neuts (Manual) Monocytes # (Manual) Smudge Cells Toxic Granulation Dohle Bodies Platelet Estimate Plt Morphology Comment RBC Morphology Polychromasia Macrocytosis Tear Drop Cells Ovalocytes Acanthocytes (Spur) PT INR D-Dimer High Sensitivty VBG pH 7.34 VBG pCO2 55 VBG pO2 37 VBG HCO3 30 H VBG O2 Saturation 60.0 VBG Base Excess 3.5 Sodium Potassium Chloride Carbon Dioxide Anion Gap BUN Creatinine Estim Creat Clear Calc Estimated GFR Random Glucose Lactic Acid Lactic Acid F/U @ 2Hr 2.3 H* Lactic Acid F/U @ 4Hr Calcium Total Bilirubin Direct Bilirubin AST ALT Alkaline Phosphatase Troponin I High Sens B-Natriuretic Peptide Total Protein Albumin COVID-19 (OLAYINKA) Negative COVID-19 Clin Com See Note 01/18/22 01/18/22 01/18/22 05:59 05:59 05:59 WBC 35.7 H* RBC 2.57 L Hgb 7.7 L Hct 22.6 L MCV 87.9 MCH 30.0 MCHC 34.1 RDW 18.2 H Plt Count 78 L MPV 10.9 Immature Gran % (Auto) Cancelled Neut % (Auto) Cancelled Lymph % (Auto) Cancelled [place] % (Auto) Cancelled Eos % (Auto) Cancelled Baso % (Auto) Cancelled Lymph # (Auto) Cancelled [place] # (Auto) Cancelled Eos # (Auto) Cancelled Baso # (Auto) Cancelled Abs Immat Gran (auto) Cancelled Absolute Neuts (auto) Cancelled Absolute Nucleated RBC 0.000 Nucleated RBC % (auto) 0.0 Neutrophils % (Manual) 94 H Band Neutrophils % 6 H Monocytes % (Manual) Abs Neuts (Manual) 35.7 H Monocytes # (Manual) Smudge Cells Toxic Granulation PRESENT Dohle Bodies PRESENT Platelet Estimate DECREASED Plt Morphology Comment NORMAL RBC Morphology NOTED Polychromasia 1+ (0-2) Macrocytosis 1+ (5-14) Tear Drop Cells 2+ (3-5) Ovalocytes 2+ (15-30) Acanthocytes (Spur) 1+ (0-2) PT INR D-Dimer High Sensitivty VBG pH VBG pCO2 VBG pO2 VBG HCO3 VBG O2 Saturation VBG Base Excess Sodium 141 Potassium 3.6 Chloride 98 Carbon Dioxide 26 Anion Gap 21 H BUN 33 H Creatinine 1.45 H Estim Creat Clear Calc 48.8 Estimated GFR 37 Random Glucose 159 H Lactic Acid Lactic Acid F/U @ 2Hr Lactic Acid F/U @ 4Hr Calcium 8.2 L Total Bilirubin Direct Bilirubin AST ALT Alkaline Phosphatase Troponin I High Sens 68.4 H* B-Natriuretic Peptide Total Protein Albumin COVID-19 (OLAYINKA) COVID-19 Clin Com 01/18/22 01/18/22 01/18/22 05:59 06:59 09:17 WBC RBC Hgb Hct MCV MCH MCHC RDW Plt Count MPV Immature Gran % (Auto) Neut % (Auto) Lymph % (Auto) [place] % (Auto) Eos % (Auto) Baso % (Auto) Lymph # (Auto) [place] # (Auto) Eos # (Auto) Baso # (Auto) Abs Immat Gran (auto) Absolute Neuts (auto) Absolute Nucleated RBC Nucleated RBC % (auto) Neutrophils % (Manual) Band Neutrophils % Monocytes % (Manual) Abs Neuts (Manual) Monocytes # (Manual) Smudge Cells Toxic Granulation Dohle Bodies Platelet Estimate Plt Morphology Comment RBC Morphology Polychromasia Macrocytosis Tear Drop Cells Ovalocytes Acanthocytes (Spur) PT INR D-Dimer High Sensitivty VBG pH VBG pCO2 VBG pO2 VBG HCO3 VBG O2 Saturation VBG Base Excess Sodium Potassium Chloride Carbon Dioxide Anion Gap BUN Creatinine Estim Creat Clear Calc Estimated GFR Random Glucose Lactic Acid 4.4 H* Lactic Acid F/U @ 2Hr 3.2 H* Lactic Acid F/U @ 4Hr 3.3 H* Calcium Total Bilirubin Direct Bilirubin AST ALT Alkaline Phosphatase Troponin I High Sens B-Natriuretic Peptide Total Protein Albumin COVID-19 (OLAYINKA) COVID-19 Clin Com 01/18/22 11:27 WBC RBC Hgb Hct MCV MCH MCHC RDW Plt Count MPV Immature Gran % (Auto) Neut % (Auto) Lymph % (Auto) [place] % (Auto) Eos % (Auto) Baso % (Auto) Lymph # (Auto) [place] # (Auto) Eos # (Auto) Baso # (Auto) Abs Immat Gran (auto) Absolute Neuts (auto) Absolute Nucleated RBC Nucleated RBC % (auto) Neutrophils % (Manual) Band Neutrophils % Monocytes % (Manual) Abs Neuts (Manual) Monocytes # (Manual) Smudge Cells Toxic Granulation Dohle Bodies Platelet Estimate Plt Morphology Comment RBC Morphology Polychromasia Macrocytosis Tear Drop Cells Ovalocytes Acanthocytes (Spur) PT INR D-Dimer High Sensitivty VBG pH VBG pCO2 VBG pO2 VBG HCO3 VBG O2 Saturation VBG Base Excess Sodium Potassium Chloride Carbon Dioxide Anion Gap BUN Creatinine Estim Creat Clear Calc Estimated GFR Random Glucose Lactic Acid Lactic Acid F/U @ 2Hr Lactic Acid F/U @ 4Hr 2.9 H* Calcium Total Bilirubin Direct Bilirubin AST ALT Alkaline Phosphatase Troponin I High Sens B-Natriuretic Peptide Total Protein Albumin COVID-19 (OLAYINKA) COVID-19 Clin Com Imaging Radiologist's impression: Impressions Chest CTA 01/18/22 02:15 IMPRESSION: 1. No pulmonary embolus identified. 2. Partial loss of height of the T6 vertebral body, new from prior with a heterogeneously sclerotic appearance. Appearance is concerning for pathologic fracture with subacute time course, and this could be further assessed with MRI as clinically warranted. A few additional sclerotic foci are also noted in the spine, most prominently at T12 which appears new from prior and is suspicious for metastasis. 3. Small pleural effusions. 4. Improved right lower lobe aeration compared to prior. A couple focal right lower lobe nodule densities have also decreased in size; attention on follow-up recommended. 5. Postoperative changes from right upper lobectomy and partial left upper lobe resection. VTE: negative Assessment and Plan (1) Acute respiratory failure with hypoxia: Status: Acute Acute respiratory failure with hypoxemia with sudden-onset. Unclear etiology. Elevated BNP of unclear etiology as well. Clinically today does appear to be in overt heart failure. BNP elevation may be related to RV strain from acute hypoxemic pulmonary vaso constriction and/or flash pulmonary edema although then no clear findings of such. She is currently on diuretic therapy. Will continue the same although heart failure is low likelihood. Could be secondary pulmonary hypertension with chronic cor pulmonale related to her underlying severe COPD. May require oxygen therapy on a chronic basis. Echocardiogram is pending. Strict intake and output chart. Continue to trend BMP and BNP again. EKG shows no signs of acute ischemia. Will follow-up after echocardiogram. Will follow with you. Thank you for allowing me to partake in her care Procedures Date of Service Date of Service: 01/18/22
--- NOTE | 2022-01-18 12:59 | MHC.CM.PN ---
Met with pt to discuss d/c planning needs: pt resides with her significant other and has assistance from her dtr as well. Pt uses a cane, has no services although she is trying to obtain [employer] through [facility]. Unsure if pt will require O2 upon dc to home: CM to follow for ? skilled RN needs. At this time, d/c plan is for a return to home with family supports. Vax x3, HCP on file
--- NOTE | 2022-01-18 14:11 | PM.EVENT ---
Event Note Date of Service: 01/18/22 Event Note: The patient was seen and evaluated this morning Reporting reporting improvement in her breathing Lactic acidosis likely type B from malignancy Cardiology consult, pending echo Continue nebulizers, steroids and antibiotics
[2022-01-18 14:43] LABS: Cancel Lactic Acid Canceled
[2022-01-18] MEDS: Furosemide 20 MG/2 ML VIAL IVPUSH (14:51)
[2022-01-18] MEDS: 0.9 % Sodium Chloride Flush 3 ML SYRINGE IVFLUSH ×2 (14:51→22:53)
[2022-01-19] VITALS (8 sets, daily range): BP systolic 104–157; BP diastolic 58–87; PULSE 65–87; RESP 14–20; TEMP 36.3–36.5; O2SAT 94–97
[2022-01-19 05:46] LABS: PLT CLUMP 1; Red Cell Distribution Width 17.4 % (11.0-16.0)
[2022-01-19 05:48] LABS: Hematocrit 21.6 % (37.0-47.0); Hemoglobin 7.5 g/dl (12.0-16.0); Mean Corpuscular HGB Conc 34.7 g/dl (31.0-35.0); Mean Corpuscular Hemoglobin 30.1 pg (27.0-33.0); Mean Corpuscular Volume 86.7 fL (80.0-98.0); Mean Platelet Volume 10.8 fL (9.4-12.3); Red Blood Count 2.49 X10*6/uL (4.20-5.50)
[2022-01-19 05:50] LABS: White Blood Count 23.2 X10*3/uL (4.8-10.8)
[2022-01-19 05:51] LABS: Platelet Count 66 X10*3/uL (160-400)
[2022-01-19 06:01] LABS: Anion Gap 20 (12-20); Blood Urea Nitrogen 40 mg/dL (9-16); Calcium 8.2 mg/dL (8.4-10.2); Carbon Dioxide 30 mmol/L (22-29); Chloride 94 mmol/L (96-108); Creatinine Clr Calc Pharmacy 51.3; Estimated Glomerular Filt Rate 39; Glucose Random 158 mg/dL (60-115); Potassium 3.7 mmol/L (3.3-5.1); Sodium 140 mmol/L (135-145)
[2022-01-19] MEDS: Heparin Sodium,Porcine 5,000 UNIT/ML VIAL 5000 UNIT SUBCUT ×2 (06:05→17:39)
[2022-01-19 06:06] LABS: B Type Natriuretic Peptide 455 pg/mL (<100)
--- NOTE | 2022-01-19 07:00 | CA_ITS ---
Transthoracic Echocardiogram Patient (Last, First, Middle): Elida Schumacher P Gender: Female Date of : 1960 Age: 61 Procedure Date: 01/19/2022 Procedure Type: Transthoracic Echocardiogram Location: [facility] [place] Height: 170.18 cm Weight: 97.07 kg BSA: 2.08 m2 Heart Rate: bpm BP: 142 / 84 mmHg Supervisor Smoke Control: Referring MD: Clara Henson MD Symptoms: chf Study Quality: Fair ECG Rhythm: Sinus Conclusions: - The left ventricular systolic function is hyperdynamic. The visually estimated ejection fraction is >70%. - Based on mitral inflow pattern, possible grade 2 diastolic dysfunction. - There is moderate mitral annular calcification. Findings Procedure Information Contrast agent, definity, is being given per protocol without apparent complications. Left Ventricle Normal left ventricular cavity size. There is mildly increased left ventricular wall thickness. The left ventricular systolic function is hyperdynamic. The visually estimated ejection fraction is >70%. There is no evidence of regional wall motion abnormalities. Diastolic function is indeterminate on the basis of available data. E/E prime ratio is >15, consistent with elevated filling pressures. Diastolic function difficult to assess due to mitral annular calcification. Based on mitral inflow pattern, possible grade 2 diastolic dysfunction. Right Ventricle Normal right ventricular cavity size and systolic function. Atria Both atria are normal in size. Aortic Valve The aortic valve was not well visualized. There is no aortic valve stenosis. There is trace (trivial) aortic valve regurgitation. Mitral Valve There is moderate mitral annular calcification. There is trace mitral valve regurgitation. Mean gradient across the mitral valve 4 mm Hg at 73/Min. Cannot exclude mild mitral stenosis. Pulmonic Valve The pulmonic valve is likely normal. Tricuspid Valve Normal tricuspid valve structure. There is trace tricuspid valve regurgitation. There is no evidence of pulmonary hypertension. Great Vessels The aortic annulus, sinuses of valsalva, and asc aorta are normal in size. Venous The inferior vena cava is normal in size and collapses greater than 50% with inspiration. Pericardium/Pleural There is no evidence of pericardial effusion. Prior Study Comparison No prior study available for comparison. Measurements 2D Linear Measurements IVSd: 1.23 0.6-0.9/0.6-1.0 cm LVIDd: 5.16 3.9-5.3/4.2-5.9 cm LVIDd Index: 2.48 2.4-3.2/2.2-3.1 cm/m2 LVIDs: 3.05 2.0-3.6 cm LVPWd: 1.23 0.7-1.1 cm Ao Root: 3.10 2.1-3.5 cm LA Diam: 3.90 2.7-3.8/3.0-4.0 cm LAIDs Index: 1.88 1.5-2.3 cm/m2 LV Mass: 317.27 67-162/88-224 g LV Mass Index: 152.53 43-95/49-115 g/m2 LVOT Diam: 2.10 3.0+(-)1.3 cm 2D Systolic Function EF 4C: 67.90 >55% EF 2C: 74.80 >55% EF BiP: 72.80 >55% Mitral Valve MV VTI: 0.53 MV Pk Juan Carlos: 1.59 MV Mn Juan Carlos: 0.97 MV Pk Grad: 10.00 MV Mn Grad: 4.00 MV Pk E: 1.47 MV PK A: 1.26 MV Decel Time: 196.00 E/A: 1.20 E'Lateral: 8.27 E'Medial: 5.22 E/E' Med: 28.20 E/E' Lat: 17.80 PHT: 57.00 MVA PHT: 3.86 MVA Continuity: 1.93 Decel Traill: 7.52 Aortic Valve AoV Pk Juan Carlos: 1.91 AoV Mn Juan Carlos: 1.22 AoV VTI: 0.41 AoV Pk Grad: 15.00 Aov Mn Grad: 7.00 ABIGAIL Cont.VTI: 2.50 LVOT LVOT Pk Juan Carlos: 1.46 LVOT Mn Juan Carlos: 0.91 LVOT VTI: 0.30 LVOT Pk Grad: 9.00 LVOT Mn Grad: 4.00 LVOT Diam: 2.10 LVOT Area: 3.46 Diastolic Function MV Pk E: 1.47 MV Pk A: 1.26 E/A: 1.20 E'Medial: 5.22 E/E' Med: 28.20 E' Laterial: 8.27 E/E' Lat: 17.80 Right Ventricle TAPSE (mm): 34.00 TVS' Juan Carlos: 17.00 Tricuspid Valve TR Pk Juan Carlos: 2.27 TR Pk Grad: 21.00 RA Press: 3.00 RVSP: 24.00 Great Vessels Aorta Ao Root-2D: 3.10 2.0-3.7 cm Ao Asc: 3.60 2.1-3.4 cm Pulmonary Valve PV Pk Juan Carlos: 1.23 Peak PV Grad: 6.00 Updated in Other Vendor System with Status of Final Leroy Swain MD electronically signed on 01/19/2022 4:47:13 PM with status of Final
[2022-01-19] MEDS: 0.9 % Sodium Chloride Flush 3 ML SYRINGE IVFLUSH ×3 (08:03→22:23)
[2022-01-19] MEDS: methylPREDNISolone Sod Succ 40 MG/ML VIAL IVPUSH ×2 (08:04→22:21)
[2022-01-19] MEDS: Azithromycin 500 MG TABLET PO (08:04)
[2022-01-19] MEDS: Omeprazole 20 MG CAPSULE.DR PO (08:04)
[2022-01-19] MEDS: Aspirin Enteric Coated 81 MG TABLET.DR PO (08:04)
[2022-01-19] MEDS: PARoxetine HCL 30 MG TABLET 60 MG PO (08:05)
[2022-01-19] MEDS: Buprenorphine/Naloxone 4/1 mg FILM 1 FILM SUBLINGUAL (08:05)
[2022-01-19] MEDS: Furosemide 20 MG/2 ML VIAL IVPUSH (08:05)
[2022-01-19] MEDS: hydroCHLOROthiazide 25 MG TABLET PO (08:05)
[2022-01-19] MEDS: Metoprolol Tartrate 50 MG TABLET PO (08:05)
[2022-01-19] MEDS: Folic Acid 1 MG TABLET PO (08:05)
[2022-01-19] MEDS: dilTIAZem HCL CD 180 MG CAP.ER.24H PO (08:05)
--- NOTE | 2022-01-19 10:56 | PM.PNCARD ---
Subjective Subjective Date of Service: 01/19/22 Interval history: She states her shortness of breath is okay. Not too bothersome but she has not done much and mainly in bed. No anginal-type symptoms. Also denies any prior cardiac history. Review of Systems Review of Systems Yes all other systems are reviewed and are negative Constitutional: Reports as per HPI Eyes: Reports as per HPI Reports as per HPI Cardiovascular: Reports as per HPI, Denies acrocyanosis, Denies cool extremities, Denies chest pain, Denies leg edema, Denies lightheadedness, Denies palpitations and Reports dyspnea Respiratory: Reports as per HPI, Reports no additional respiratory complaints and Reports dyspnea Gastrointestinal: Reports as per HPI and Reports no additional gastrointestinal complaints Genitourinary: Reports as per HPI Musculoskeletal: Reports no additional musculoskeletal complaints and Reports as per HPI Skin/Breast: Reports system reviewed and no additional complaints, except as docu Reports system reviewed and no additional complaints, except as documented and Reports as per HPI Psychiatric: Reports no additional psychiatric complaints and Reports as per HPI Endocrine: Reports no additional endocrine complaints, Reports as per HPI and Denies palpitations Hematologic/Lymphatic: Reports no additional hematologic/lymphatic complaints and Reports as per HPI Allergic/Immunologic: Reports no additional allergic/immunologic complaints and Reports as per HPI Physical Exam Vital Signs: Last Vital Signs Temp 97.3 F 01/19/22 08:00 Pulse 84 01/19/22 08:00 Resp 17 01/19/22 08:00 BP 157/87 H 01/19/22 08:00 Pulse Ox 97 01/19/22 08:00 O2 Del Method 01/19/22 08:00 O2 Flow Rate 1 01/19/22 08:00 Oxygen Flow Rate 3 01/18/22 00:59 BMI result Body Mass Index 33.5 Const General: comfortable and no acute distress Orientation/consciousness: patient oriented x3 HEENT Other: Unremarkable Head: Yes normal to inspection Neck Neck: Yes normal visual inspection Chest Chest palpation & inspection: normal inspection of the chest Resp Auscultation: clear to auscultation bilaterally Cardio Palpation: normal PMI Heart sounds: S1 normal heart sound present, S2 normal heart sound present, no gallops, Murmur heart sound present systolic II/ and no rubs GI Palpation (GI): Soft to palpation Back/Spine/Pelvis Other: unremarkable Skin General skin exam: no rashes or lesions noted Neuro General: patient oriented x3 Extrem General: Yes normal to inspection Psych Mental Status: mental status grossly normal Objective Labs and Meds Result diagrams: 01/19/22 05:34 01/19/22 05:34 Lab results: Laboratory Results - last 24 hr 01/18/22 01/19/22 01/19/22 11:27 05:34 05:34 WBC 23.2 H RBC 2.49 L Hgb 7.5 L Hct 21.6 L MCV 86.7 MCH 30.1 MCHC 34.7 RDW 17.4 H Plt Count 66 L MPV 10.8 Absolute Nucleated RBC 0.000 Nucleated RBC % (auto) 0.0 Sodium 140 Potassium 3.7 Chloride 94 L Carbon Dioxide 30 H Anion Gap 20 BUN 40 H Creatinine 1.38 Estim Creat Clear Calc 51.3 Estimated GFR 39 Random Glucose 158 H Lactic Acid F/U @ 4Hr 2.9 H* Calcium 8.2 L B-Natriuretic Peptide 01/19/22 05:34 WBC RBC Hgb Hct MCV MCH MCHC RDW Plt Count MPV Absolute Nucleated RBC Nucleated RBC % (auto) Sodium Potassium Chloride Carbon Dioxide Anion Gap BUN Creatinine Estim Creat Clear Calc Estimated GFR Random Glucose Lactic Acid F/U @ 4Hr Calcium B-Natriuretic Peptide 455 H Progress Note: A&P Assessment and plan (1) Acute respiratory failure with hypoxia: Status: Acute (2) Elevated troponin: Status: Acute Plan EKG is unremarkable and does not show any clear ischemic changes. Labs with slight increase in high sensitivity troponin. Increased cardiac BNP. Cardiac BNP seems less than on admission. Slight troponin elevation could be from demand. Also, upon admission white cell count was high but it seems improved. Still elevated though. Overall, treated for possible heart failure but less likely the main issue. Will get echocardiogram for definitive evaluation. She could have some right heart dysfunction related to pulmonary issues. She did get empiric diuretics but that can be stopped. Echocardiogram pending today. Discussed with Dr. Leon. Time Spent With Patient Time: Total time spent is greater than 50% in coordination of care (as documented) at patient's floor/unit and/or counseling patient: 35min Progress Note: Quality Stroke Does the patient have a stroke diagnosis?: No Procedures Date of Service Date of Service: 01/19/22
[2022-01-19] MEDS: Albuterol/Iprat 2.5/0.5MG 3 ML AMPUL.NEB INHALE ×2 (11:16→18:42)
--- NOTE | 2022-01-19 14:05 | HO.PM.IMPN ---
Subjective Subjective Date of Service: 01/19/22 Interval History: the patient was seen and evaluated this morning Laying in bed, more comfortable with decreased respiratory distress Denies any fever, chills or chest pain No reported other overnight events. Systemic review: No fever, chills or weakness No chest pain, palpitation Shortness of breath improving, having sore throat No abdominal pain, nausea or vomiting No urinary symptoms No any rash or wounds Physical Exam Vital Signs: Vital Signs: Last Vital Signs Temp 97.6 F 01/19/22 11:13 Pulse 87 01/19/22 11:19 Resp 20 01/19/22 11:19 BP 142/84 H 01/19/22 11:13 Pulse Ox 94 01/19/22 11:13 O2 Del Method 01/19/22 11:13 O2 Flow Rate 1 01/19/22 11:13 Oxygen Flow Rate 3 01/18/22 00:59 BMI result Body Mass Index 33.5 Const: Other: Constitutional : Alert, oriented, not in distress Neck : Normal inspection, Supple Cardiovascular : RRR, no JVP, no lower extremity edema Respiratory : Decreased bilateral air entry, basal bilateral fine crackles, bilateral rhonchi Gastrointestinal: soft, lax, Normal bowel sounds, Non tender Skin : Warm, Dry Neurological : Alert & oriented x3, No focal deficit Objective Data Active Medications Acetaminophen (Acetaminophen 325 Mg Tablet) 650 mg PO Q6H PRN PRN Reason: Pain, Mild (Pain Scale 1-3) Albuterol/Ipratropium (Albuterol/Iprat 2.5/0.5mg 3 Ml Ampul.Neb) 3 ml INHALE RQ4H PRN PRN Reason: Shortness of Breath/Wheezing Albuterol/Ipratropium (Albuterol/Iprat 2.5/0.5mg 3 Ml Ampul.Neb) 3 ml INHALE RQ4H WHILE AWAKE [facility] Last Admin: 01/19/22 11:16 Dose: 3 ml Documented By: ЕЛЕНА Aspirin (Aspirin Enteric Coated 81 Mg Tablet.) 81 mg PO DAILY [facility] Last Admin: 01/19/22 08:04 Dose: 81 mg Documented By: KRYSTA Azithromycin (Azithromycin 500 Mg Tablet) 500 mg PO DAILY [facility] Last Admin: 01/19/22 08:04 Dose: 500 mg Documented By: KRYSTA Buprenorphine/Naloxone (Buprenorphine/Naloxone 4/1 Mg Film) 1 film SUBLINGUAL DAILY [facility] Last Admin: 01/19/22 08:05 Dose: 1 film Documented By: KRYSTA Diltiazem HCl (Diltiazem Hcl Cd 180 Mg Cap.Er.24h) 180 mg PO DAILY [facility]; Protocol Last Admin: 01/19/22 08:05 Dose: 180 mg Documented By: KRYSTA Docusate Sodium (Docusate Sodium 100 Mg Capsule) 100 mg PO BEDTIME PRN PRN Reason: Constipation Folic Acid (Folic Acid 1 Mg Tablet) 1 mg PO DAILY [facility] Last Admin: 01/19/22 08:05 Dose: 1 mg Documented By: KRYSTA Furosemide (Furosemide 20 Mg/2 Ml Vial) 20 mg IVPUSH DAILY [facility]; Protocol Last Admin: 01/19/22 08:05 Dose: 20 mg Documented By: KRYSTA Heparin Sodium (Porcine) (Heparin Sodium,Porcine 5,000 Unit/Ml Vial) 5,000 unit SUBCUT Q12H [facility] Last Admin: 01/19/22 06:05 Dose: 5,000 unit Documented By: CODY Hydrochlorothiazide (Hydrochlorothiazide 25 Mg Tablet) 25 mg PO DAILY [facility] Last Admin: 01/19/22 08:05 Dose: 25 mg Documented By: KRYSTA Methylprednisolone Sodium Succinate (Methylprednisolone Sod Succ 40 Mg/Ml Vial) 40 mg IVPUSH BID [facility] Last Admin: 01/19/22 08:04 Dose: 40 mg Documented By: KRYSTA Metoprolol Tartrate (Metoprolol Tartrate 50 Mg Tablet) 50 mg PO DAILY [facility] Last Admin: 01/19/22 08:05 Dose: 50 mg Documented By: KRYSTA Non-Formulary Medication (Milnacipran [Savella]) 1 tab PO BID [facility] Non-Formulary Medication (Umeclidinium-Vilanterol [Anoro Ellipta]) 1 puff INHALE DAILY [facility] Omeprazole (Omeprazole 20 Mg Capsule.Dr) 20 mg PO DAILY [facility] Last Admin: 01/19/22 08:04 Dose: 20 mg Documented By: KRYSTA Ondansetron HCl (Ondansetron Hcl 4 Mg/2 Ml Vial) 4 mg IVPUSH Q8H PRN PRN Reason: Nausea and Vomiting Paroxetine HCl (Paroxetine Hcl 30 Mg Tablet) 60 mg PO DAILY [facility] Last Admin: 01/19/22 08:05 Dose: 60 mg Documented By: KRYSTA Sodium Chloride (0.9 % Sodium Chloride Flush 3 Ml Syringe) 3 ml IVFLUSH QSHIFT [facility] Last Admin: 01/19/22 08:03 Dose: 3 ml Documented By: KRYSTA Labs CBC & Chem 7: 01/19/22 05:34 01/19/22 05:34 Labs: Laboratory Results - last 24 hr 01/19/22 01/19/22 01/19/22 05:34 05:34 05:34 MCV 86.7 MCH 30.1 MCHC 34.7 RDW 17.4 H Plt Count 66 L MPV 10.8 Absolute Nucleated RBC 0.000 Nucleated RBC % (auto) 0.0 Anion Gap 20 Estim Creat Clear Calc 51.3 Estimated GFR 39 Random Glucose 158 H Calcium 8.2 L B-Natriuretic Peptide 455 H Microbiology Microbiology Results: Microbiology 01/18/22 01:28 Blood Culture - Preliminary Blood - Venous No growth after 24 hours. 01/18/22 01:28 Blood Culture - Preliminary Blood - Venous No growth after 24 hours. Assessment and Plan (1) VIKTORIYA (acute kidney injury): Status: Acute (2) Acute respiratory failure with hypoxia: Status: Acute (3) Acute exacerbation of CHF (congestive heart failure): Status: Acute (4) COPD with acute exacerbation: Status: Acute Plan 61-year-old female who is actively being treated for non-small lung cancer as well as COPD presents to the hospital with complaints of dyspnea. # acute hypoxic respiratory failure multifactorial secondary CHF, COPD exacerbation and lung cancer no evidence of PE on CT angiogram Elevated BNP, pending echo Continue Solu-Medrol, DuoNeb p.r.n. as well as scheduled Discontinue furosemide, Wean oxygen down as tolerated # acute COPD exacerbation Continue Solu-Medrol, DuoNeb titrate oxygen off as tolerated # acute CHF exacerbation No history of CHF on documentation elevated BNP, evidence of pleural effusion on CT angiogram strict I&O, daily weight low-sodium diet Cardiology input appreciated, check ECHO and DC Lasix Pending echocardiogram # VIKTORIYA likely secondary to CHF Improving follow BMP # leukocytosis Secondary to cancer treatment Oncology input appreciated # pathological fracture of T6 concerning for bone metastasis which appears to be new followed by Hematology-Oncology patient denies pain at this time # HTN continue home antihypertensives # lactic acidosis Type B secondary to malignancy not hypoperfusion Keep oxygen level above 90% DVT prophylaxis: Heparin subQ Pt will require overnight hospital stay for management of hypoxic respiratory failure with oxygen and management of COPD with IV Solu-Medrol pending safe discharge plan Quality Stroke Does the patient have a stroke diagnosis?: No VTE Prior VTE?: No VTE Risk Level:: Medical - moderate - high VTE Device Contraindication: Treatment Not Indicated VTE Drug Contraindication: N/A - Med Ordered
--- NOTE | 2022-01-19 18:34 | PC.NURSE ---
PATIENT A&O X4. AMBULATES INDEPENDENTLY. UPDATED ON CURRENT HEALTH STATUS.
[2022-01-20] VITALS (13 sets, daily range): BP systolic 125–173; BP diastolic 65–91; PULSE 60–94; RESP 15–20; TEMP 36.1–37.2; O2SAT 92–98
[2022-01-20] MEDS: Heparin Sodium,Porcine 5,000 UNIT/ML VIAL 5000 UNIT SUBCUT ×2 (06:21→06:24)
[2022-01-20 06:51] LABS: Mean Corpuscular Hemoglobin 29.6 pg (27.0-33.0); Mean Corpuscular Volume 87.1 fL (80.0-98.0); Mean Platelet Volume 11.4 fL (9.4-12.3); Red Blood Count 2.33 X10*6/uL (4.20-5.50); Red Cell Distribution Width 16.9 % (11.0-16.0); White Blood Count 10.3 X10*3/uL (4.8-10.8)
[2022-01-20 07:06] LABS: Anion Gap 16 (12-20); Blood Urea Nitrogen 42 mg/dL (9-16); Calcium 8.4 mg/dL (8.4-10.2); Carbon Dioxide 34 mmol/L (22-29); Chloride 94 mmol/L (96-108); Creatinine Clr Calc Pharmacy 62.6; Estimated Glomerular Filt Rate 49; Glucose Random 153 mg/dL (60-115); Potassium 3.9 mmol/L (3.3-5.1); Sodium 140 mmol/L (135-145)
--- NOTE | 2022-01-20 07:44 | PM.HEMONCCN ---
Subjective - Subjective Chief complaint: Shortness of breath Patient: known to practice within the last 3 years Consult date: 01/20/22 Primary Care Provider: Daphne Rodriguez MD Medical Summary: Diagnosis: Metastatic lung cancer HPI - Consult Narrative Reason for consult: Patient with metastatic lung cancer on chemotherapy admitted for shortness of breath Narrative: Elida Schumacher is a 61 year old female with history of metastatic lung cancer who has been on chemotherapy. She presented with complaints of shortness of breath. Evaluation in the ED with CT angiogram was negative for PE, in fact there was improved aeration of the lungs compared to previous scan. She was admitted for probable COPD exacerbation and CHF as her BNP was elevated. She has been on Lasix for CHF and steroids for COPD exacerbation. She has had cardiac evaluation. She is now feeling a lot better. She had elevated WBC count but no fever or chills. She denies abdominal pain, diarrhea, nausea or emesis. No headache or dizziness. Review of Systems - Constitutional Reports as per HPI, Reports no additional constitutional complaints - Cardiovascular Reports no additional cardiovascular complaints - Respiratory Reports no additional respiratory complaints - Gastrointestinal Reports no additional gastrointestinal complaints - Neurologic Reports no additional neurologic complaints, Reports as per HPI [facility] Medical History: Medical History (Last Reviewed 01/18/22 @ 12:30 by Simone Ramachandran MD) Bilateral lung cancer Cancer of upper lobe of left lung Onset Date: ~2020 Cancer of upper lobe of right lung Onset Date: ~2019 COPD (chronic obstructive pulmonary disease) Depression GERD (gastroesophageal reflux disease) History of breast cancer Onset Date: ~2006 History of hepatitis C HTN (hypertension) Internal and external bleeding hemorrhoids Obesity Pulmonary nodules Smoker Tubular adenoma of colon Family History: Family History (Last Reviewed 01/18/22 @ 12:30 by Simone Ramachandran MD) Mother History of lung cancer Brother History of lung cancer Maternal Grandmother Breast cancer in female Maternal Aunt Breast cancer in female Daughter Thyroid cancer Surgical History: Surgical History (Last Reviewed 01/18/22 @ 12:30 by Simone Ramachandran MD) History of anterior colporrhaphy Onset Date: ~2016 History of back surgery Onset Date: ~2011 History of colonoscopy Onset Date: ~2014 History of hemorrhoidectomy Onset Date: ~2019 History of lobectomy of lung Onset Date: ~2019 History of lumpectomy of right breast Onset Date: ~2006 History of lung surgery Onset Date: ~2020 History of tubal ligation Social History: Social History (Last Reviewed 01/18/22 @ 12:30 by Simone Ramachandran MD) Living Situation History: Household Members: None Housing: Apartment Are you a primary respiratory care assistant to a significant other at home: No Do you presently have visiting nurse or other home services: No Tobacco History: Patient Tobacco Use Status: Current someday Tobacco Tobacco use type: Cigar Years Smoked: 46 Second Hand Smoke Exposure: No Substance Use History: Substance Use Type: Marijuana Occupation Assessmet: service: No Current occupational status: disabled Current occupational exposures/hazards: No Home Medications and Allergies Current Medications: Current Medications Acetaminophen (Acetaminophen 325 Mg Tablet) 650 mg PO Q6H PRN PRN Reason: Pain, Mild (Pain Scale 1-3) Albuterol/Ipratropium (Albuterol/Iprat 2.5/0.5mg 3 Ml Ampul.Neb) 3 ml INHALE RQ4H PRN PRN Reason: Shortness of Breath/Wheezing Albuterol/Ipratropium (Albuterol/Iprat 2.5/0.5mg 3 Ml Ampul.Neb) 3 ml INHALE RQ4H WHILE AWAKE [facility] Last Admin: 01/19/22 18:42 Dose: 3 ml Aspirin (Aspirin Enteric Coated 81 Mg Tablet.Dr) 81 mg PO DAILY [facility] Last Admin: 01/19/22 08:04 Dose: 81 mg Azithromycin (Azithromycin 500 Mg Tablet) 500 mg PO DAILY [facility] Last Admin: 01/19/22 08:04 Dose: 500 mg Buprenorphine/Naloxone (Buprenorphine/Naloxone 4/1 Mg Film) 1 film SUBLINGUAL DAILY [facility] Last Admin: 01/19/22 08:05 Dose: 1 film Diltiazem HCl (Diltiazem Hcl Cd 180 Mg Cap.Er.24h) 180 mg PO DAILY [facility]; Protocol Last Admin: 01/19/22 08:05 Dose: 180 mg Docusate Sodium (Docusate Sodium 100 Mg Capsule) 100 mg PO BEDTIME PRN PRN Reason: Constipation Folic Acid (Folic Acid 1 Mg Tablet) 1 mg PO DAILY [facility] Last Admin: 01/19/22 08:05 Dose: 1 mg Heparin Sodium (Porcine) (Heparin Sodium,Porcine 5,000 Unit/Ml Vial) 5,000 unit SUBCUT Q12H [facility] Last Admin: 01/20/22 06:24 Dose: 5,000 unit Hydrochlorothiazide (Hydrochlorothiazide 25 Mg Tablet) 25 mg PO DAILY [facility] Last Admin: 01/19/22 08:05 Dose: 25 mg Methylprednisolone Sodium Succinate (Methylprednisolone Sod Succ 40 Mg/Ml Vial) 40 mg IVPUSH BID [facility] Last Admin: 01/19/22 22:21 Dose: 40 mg Metoprolol Tartrate (Metoprolol Tartrate 50 Mg Tablet) 50 mg PO DAILY [facility] Last Admin: 01/19/22 08:05 Dose: 50 mg Non-Formulary Medication (Milnacipran [Savella]) 1 tab PO BID [facility] Non-Formulary Medication (Umeclidinium-Vilanterol [Anoro Ellipta]) 1 puff INHALE DAILY [facility] Omeprazole (Omeprazole 20 Mg Capsule.Dr) 20 mg PO DAILY [facility] Last Admin: 01/19/22 08:04 Dose: 20 mg Ondansetron HCl (Ondansetron Hcl 4 Mg/2 Ml Vial) 4 mg IVPUSH Q8H PRN PRN Reason: Nausea and Vomiting Paroxetine HCl (Paroxetine Hcl 30 Mg Tablet) 60 mg PO DAILY [facility] Last Admin: 01/19/22 08:05 Dose: 60 mg Sodium Chloride (0.9 % Sodium Chloride Flush 3 Ml Syringe) 3 ml IVFLUSH QSHIFT [facility] Last Admin: 01/20/22 07:36 Dose: Not Given Home Medications Medication Instructions Recorded Confirmed Type aspirin 81 mg tablet,delayed 81 mg PO DAILY 01/18/22 01/18/22 History release buprenorphine 4 mg-naloxone 1 mg 1 strip sublingual DAILY 01/18/22 01/18/22 History sublingual film (Suboxone) diltiazem HCl 180 mg 180 mg PO DAILY 01/18/22 01/18/22 History capsule,extended release 24 hr, controlled (DILT-XR) docusate sodium 100 mg capsule 1 cap PO BEDTIME PRN Constipation 01/18/22 01/18/22 History folic acid 1 mg tablet 1 mg PO DAILY 01/18/22 01/18/22 History metoprolol tartrate 50 1 tab PO DAILY 01/18/22 01/18/22 History mg-hydrochlorothiazide 25 mg tablet milnacipran 50 mg tablet (Savella) 50 mg PO BID 01/18/22 01/18/22 History omeprazole 20 mg capsule,delayed 20 mg PO DAILY 01/18/22 01/18/22 History release paroxetine HCl 20 mg tablet 60 mg PO DAILY 01/18/22 01/18/22 History umeclidinium 62.5 mcg-vilanterol 1 puff inhalation DAILY 01/18/22 01/18/22 History 25 mcg/actuation powdr for inhalation (Anoro Ellipta) Allergies Allergy/AdvReac Type Severity Reaction Status Date / Time lisinopril [LISINOPRIL] Allergy Severe SWELLING- Verified 01/15/22 12:39 ANGIOEDEMA codeine [CODEINE] Allergy Intermediate VOMITING/HIVES, Verified 01/15/22 12:39 vomiting, hives Physical Exam Vital signs: Vital Signs Temp 97.0 F 01/20/22 03:38 Pulse 65 01/20/22 03:38 Resp 15 01/20/22 03:38 BP 126/66 01/20/22 03:38 Pulse Ox 96 01/20/22 03:38 O2 Del Method 01/20/22 03:38 O2 Flow Rate 2 01/20/22 03:38 Intake & Output 01/19/22 01/20/22 01/20/22 18:59 06:59 18:59 Intake Total 500 / 1250 750 / 1250 Balance 500 / 1250 750 / 1250 Intake: Intake, Oral Amount 500 / 1250 750 / 1250 Other: Breakfast % Eaten 100% Lunch % Eaten 100% Dinner % Eaten 100% Number of Unmeasured Voids 4 2 Urine Bathroom Bathroom Weight 97.3 kg - Constitutional Present: no acute distress - Routine HEENT Exam Head: Present: normal inspection Eye: Present: normal appearance - Routine Neck Exam Present: supple. Absent: lymphadenopathy - Routine Respiratory Exam Present: decreased breath sounds, CTAB, rhonchi. Absent: accessory muscle use, wheezes - Routine Cardiovascular Exam Cardiovascular: Present: RRR, S1, S2 - Routine Abdominal Exam Present: soft - Routine Extremities Exam Present: normal inspection - Routine Skin Exam Present: intact Hem/Onc Consult Result - Labs CBC & Chem 7: 01/20/22 06:30 01/20/22 06:30 Labs: BMP 01/20/22 06:30 Sodium 140 Potassium 3.9 Chloride 94 L Carbon Dioxide 34 H BUN 42 H Creatinine 1.13 Calcium 8.4 Assessment and Plan Patient Active problem list reviewed?: Yes (1) Cancer of upper lobe of left lung Problem details: (Adenocarcinoma - s/p LITA wedge 01/2021) Status: Acute Assessment and plan: 1. This is a pleasant 61-year-old woman with bilateral lung adenocarcinoma. She has been diagnosed with recurrent metastatic lung cancer in the right with bone and brain metastasis in september 2021. Patient started on combination therapy with pembrolizumab, carboplatin and pemetrexed on 11/13/2021. She received cycle 4 last week followed by Neulasta which is cause of her leukocytosis. CT angiogram performed 01/18/2022 showed no pulmonary embolism. Improved right lower lobe aeration compared to previous, there has also been decrease in size of right lung nodules. Trace bilateral pleural effusions were seen. She is now admitted for probable COPD exacerbation. She is doing better now with steroids and nebulizer treatments. She received a few doses of Lasix and has had cardiac evaluation. She is developing worsening cytopenias, anemia and thrombocytopenia related to chemotherapy. I recommend transfusing 1 unit PRBC today. I thank you for this consult. - Time Spent With Patient Time Spent with Patient (in minutes): 20
--- NOTE | 2022-01-20 07:45 | PC.NURSE ---
Addendum entered by Nicholas Segovia RN 01/20/22 13:08: informed MD of pt's elevated BP after receiving blood. pt had no other s/sx's post transfusion. no new orders at this time. per md plan is to d/c pt tomorrow if H&H stable and pt has a decrease in SOB on exertion Original Note: informed MD of pt's H&H this AM
[2022-01-20 07:53] LABS: Hematocrit 20.3 % (37.0-47.0); Hemoglobin 6.9 g/dl (12.0-16.0); Platelet Count 54 X10*3/uL (160-400)
[2022-01-20] MEDS: Albuterol/Iprat 2.5/0.5MG 3 ML AMPUL.NEB INHALE ×2 (08:49→15:50)
--- NOTE | 2022-01-20 10:17 | PM.PNCARD ---
Subjective Subjective Date of Service: 01/20/22 Interval history: States that she feels better. Not as short of breath as she was before. Denies angina or any other complaints. Review of Systems Review of Systems Yes all other systems are reviewed and are negative Constitutional: Reports as per HPI Eyes: Reports as per HPI Reports as per HPI Cardiovascular: Reports as per HPI, Denies acrocyanosis, Denies cool extremities, Denies chest pain, Denies leg edema, Denies lightheadedness, Denies palpitations and Denies dyspnea Respiratory: Reports as per HPI, Reports no additional respiratory complaints and Denies dyspnea Gastrointestinal: Reports as per HPI and Reports no additional gastrointestinal complaints Genitourinary: Reports as per HPI Musculoskeletal: Reports no additional musculoskeletal complaints and Reports as per HPI Skin/Breast: Reports system reviewed and no additional complaints, except as docu Reports system reviewed and no additional complaints, except as documented and Reports as per HPI Psychiatric: Reports no additional psychiatric complaints and Reports as per HPI Endocrine: Reports no additional endocrine complaints, Reports as per HPI and Denies palpitations Hematologic/Lymphatic: Reports no additional hematologic/lymphatic complaints and Reports as per HPI Allergic/Immunologic: Reports no additional allergic/immunologic complaints and Reports as per HPI Physical Exam Vital Signs: Last Vital Signs Temp 97.8 F 01/20/22 07:46 Pulse 69 01/20/22 08:50 Resp 16 01/20/22 08:50 BP 132/68 01/20/22 07:46 Pulse Ox 98 01/20/22 07:46 O2 Del Method 01/20/22 07:46 O2 Flow Rate 1 01/20/22 07:46 Oxygen Flow Rate 3 01/18/22 00:59 BMI result Body Mass Index 33.5 Const General: comfortable and no acute distress Orientation/consciousness: patient oriented x3 HEENT Other: Unremarkable Head: Yes normal to inspection Neck Neck: Yes normal visual inspection Chest Chest palpation & inspection: normal inspection of the chest Resp Auscultation: clear to auscultation bilaterally Cardio Palpation: normal PMI Heart sounds: S1 normal heart sound present, S2 normal heart sound present, no gallops, no murmurs and no rubs GI Palpation (GI): Soft to palpation Back/Spine/Pelvis Other: unremarkable Skin General skin exam: no rashes or lesions noted Neuro General: patient oriented x3 Extrem General: Yes normal to inspection Psych Mental Status: mental status grossly normal Objective Labs and Meds Result diagrams: 01/20/22 06:30 01/20/22 06:30 Lab results: Laboratory Results - last 24 hr 01/20/22 01/20/22 01/20/22 06:30 06:30 09:09 WBC 10.3 RBC 2.33 L Hgb 6.9 L* Hct 20.3 L* MCV 87.1 MCH 29.6 MCHC 34.0 RDW 16.9 H Plt Count 54 L MPV 11.4 Absolute Nucleated RBC 0.000 Nucleated RBC % (auto) 0.0 Sodium 140 Potassium 3.9 Chloride 94 L Carbon Dioxide 34 H Anion Gap 16 BUN 42 H Creatinine 1.13 Estim Creat Clear Calc 62.6 Estimated GFR 49 Random Glucose 153 H Calcium 8.4 Blood Type A Positive Antibody Screen NEGATIVE Crossmatch See Detail Progress Note: A&P Assessment and plan (1) Acute respiratory failure with hypoxia: Status: Acute (2) Elevated troponin: Status: Acute (3) Acute diastolic (congestive) heart failure: Status: Acute Plan Echocardiogram with hyperdynamic LVEF and possible moderate diastolic dysfunction. There is moderate mitral annular calcification but otherwise studies unremarkable. Cardiac BNP is 1033 followed by 455. Clinically, no significant volume overload at this time. Overall, possible diastolic heart failure in addition to her respiratory issues but I think pulmonary more primary etiology. Any case, can switch to low-dose oral Lasix. Slight increase in troponins likely from demand. She has got no anginal symptoms at all. Discussed with Dr. Leon. Time Spent With Patient Time: Total time spent is greater than 50% in coordination of care (as documented) at patient's floor/unit and/or counseling patient: 30min. Progress Note: Quality Stroke Does the patient have a stroke diagnosis?: No Procedures Date of Service Date of Service: 01/20/22
[2022-01-20] MEDS: hydroCHLOROthiazide 25 MG TABLET PO (10:39)
[2022-01-20] MEDS: Azithromycin 500 MG TABLET PO (10:39)
[2022-01-20] MEDS: dilTIAZem HCL CD 180 MG CAP.ER.24H PO (10:39)
[2022-01-20] MEDS: Aspirin Enteric Coated 81 MG TABLET.DR PO (10:39)
[2022-01-20] MEDS: Folic Acid 1 MG TABLET PO (10:40)
[2022-01-20] MEDS: Metoprolol Tartrate 50 MG TABLET PO (10:40)
[2022-01-20] MEDS: Buprenorphine/Naloxone 4/1 mg FILM 1 FILM SUBLINGUAL (10:40)
[2022-01-20] MEDS: Omeprazole 20 MG CAPSULE.DR PO (10:40)
[2022-01-20] MEDS: Furosemide 20 MG TABLET PO (10:40)
[2022-01-20] MEDS: methylPREDNISolone Sod Succ 40 MG/ML VIAL IVPUSH ×2 (10:40→22:22)
[2022-01-20] MEDS: PARoxetine HCL 30 MG TABLET 60 MG PO (10:40)
--- NOTE | 2022-01-20 11:22 | P.PNIM_ITS ---
Subjective Subjective Date of Service: 01/20/22 Interval History: the patient was seen and evaluated this morning Laying in bed, reporting significant improvement but still dyspneic with minimal activity Denies any fever, chills or chest pain Hemoglobin dropped to 6.9 overnight No reported other overnight events. Systemic review: No fever, chills or weakness No chest pain, palpitation Shortness of breath improving, but still feel dyspneic with ambulation No abdominal pain, nausea or vomiting No urinary symptoms No any rash or wounds Physical Exam Vital Signs: Vital Signs: Last Vital Signs Temp 98.3 F 01/20/22 11:06 Pulse 76 01/20/22 11:06 Resp 20 01/20/22 11:06 BP 146/65 H 01/20/22 11:06 Pulse Ox 98 01/20/22 07:46 O2 Del Method 01/20/22 07:46 O2 Flow Rate 1 01/20/22 07:46 Oxygen Flow Rate 3 01/18/22 00:59 BMI result Body Mass Index 33.5 Const: Other: Constitutional : Alert, oriented, not in distress Neck : Normal inspection, Supple Cardiovascular : RRR, no JVP, no lower extremity edema Respiratory : Decreased bilateral air entry, basal bilateral fine crackles, bilateral rhonchi Gastrointestinal: soft, lax, Normal bowel sounds, Non tender Skin : Warm, Dry Neurological : Alert & oriented x3, No focal deficit Objective Data Active Medications Acetaminophen (Acetaminophen 325 Mg Tablet) 650 mg PO Q6H PRN PRN Reason: Pain, Mild (Pain Scale 1-3) Albuterol/Ipratropium (Albuterol/Iprat 2.5/0.5mg 3 Ml Ampul.Neb) 3 ml INHALE RQ4H PRN PRN Reason: Shortness of Breath/Wheezing Albuterol/Ipratropium (Albuterol/Iprat 2.5/0.5mg 3 Ml Ampul.Neb) 3 ml INHALE RQ4H WHILE AWAKE [facility] Last Admin: 01/20/22 08:49 Dose: 3 ml Documented By: LIANG Aspirin (Aspirin Enteric Coated 81 Mg Tablet.) 81 mg PO DAILY [facility] Last Admin: 01/20/22 10:39 Dose: 81 mg Documented By: JAY Azithromycin (Azithromycin 500 Mg Tablet) 500 mg PO DAILY [facility] Last Admin: 01/20/22 10:39 Dose: 500 mg Documented By: JAY Buprenorphine/Naloxone (Buprenorphine/Naloxone 4/1 Mg Film) 1 film SUBLINGUAL DAILY [facility] Last Admin: 01/20/22 10:40 Dose: 1 film Documented By: JAY Diltiazem HCl (Diltiazem Hcl Cd 180 Mg Cap.Er.24h) 180 mg PO DAILY [facility]; Protocol Last Admin: 01/20/22 10:39 Dose: 180 mg Documented By: JAY Docusate Sodium (Docusate Sodium 100 Mg Capsule) 100 mg PO BEDTIME PRN PRN Reason: Constipation Folic Acid (Folic Acid 1 Mg Tablet) 1 mg PO DAILY [facility] Last Admin: 01/20/22 10:40 Dose: 1 mg Documented By: JAY Furosemide (Furosemide 20 Mg Tablet) 20 mg PO DAILY [facility]; Protocol Last Admin: 01/20/22 10:40 Dose: 20 mg Documented By: JAY Heparin Sodium (Porcine) (Heparin Sodium,Porcine 5,000 Unit/Ml Vial) 5,000 unit SUBCUT Q12H [facility] Last Admin: 01/20/22 06:21 Dose: 5,000 unit Documented By: DESTRENT Hydrochlorothiazide (Hydrochlorothiazide 25 Mg Tablet) 25 mg PO DAILY [facility] Last Admin: 01/20/22 10:39 Dose: 25 mg Documented By: JAY Methylprednisolone Sodium Succinate (Methylprednisolone Sod Succ 40 Mg/Ml Vial) 40 mg IVPUSH BID [facility] Last Admin: 01/20/22 10:40 Dose: 40 mg Documented By: JAY Metoprolol Tartrate (Metoprolol Tartrate 50 Mg Tablet) 50 mg PO DAILY [facility] Last Admin: 01/20/22 10:40 Dose: 50 mg Documented By: JAY Non-Formulary Medication (Milnacipran [Savella]) 1 tab PO BID [facility] Non-Formulary Medication (Umeclidinium-Vilanterol [Anoro Ellipta]) 1 puff INHALE DAILY [facility] Omeprazole (Omeprazole 20 Mg Capsule.Dr) 20 mg PO DAILY [facility] Last Admin: 01/20/22 10:40 Dose: 20 mg Documented By: ANUPAMA-MOHIT Ondansetron HCl (Ondansetron Hcl 4 Mg/2 Ml Vial) 4 mg IVPUSH Q8H PRN PRN Reason: Nausea and Vomiting Paroxetine HCl (Paroxetine Hcl 30 Mg Tablet) 60 mg PO DAILY [facility] Last Admin: 01/20/22 10:40 Dose: 60 mg Documented By: JAY Sodium Chloride (0.9 % Sodium Chloride Flush 3 Ml Syringe) 3 ml IVFLUSH QSHIFT [facility] Last Admin: 01/20/22 07:36 Dose: Not Given Documented By: JAY Non-Admin Reason: See Note Labs CBC & Chem 7: 01/20/22 06:30 01/20/22 06:30 Labs: Laboratory Results - last 24 hr 01/20/22 01/20/22 01/20/22 06:30 06:30 09:09 MCV 87.1 MCH 29.6 MCHC 34.0 RDW 16.9 H Plt Count 54 L MPV 11.4 Absolute Nucleated RBC 0.000 Nucleated RBC % (auto) 0.0 Anion Gap 16 Estim Creat Clear Calc 62.6 Estimated GFR 49 Random Glucose 153 H Calcium 8.4 Blood Type A Positive Antibody Screen NEGATIVE Crossmatch See Detail Microbiology Microbiology Results: Microbiology 01/18/22 01:28 Blood Culture - Preliminary Blood - Venous No growth after 48 hours. 01/18/22 01:28 Blood Culture - Preliminary Blood - Venous No growth after 48 hours. Assessment and Plan (1) Acute diastolic (congestive) heart failure: Status: Acute (2) VIKTORIYA (acute kidney injury): Status: Acute (3) Acute respiratory failure with hypoxia: Status: Acute (4) COPD with acute exacerbation: Status: Acute (5) Symptomatic anemia: Status: Acute Plan 61-year-old female who is actively being treated for non-small lung cancer as well as COPD presents to the hospital with complaints of dyspnea. # acute hypoxic respiratory failure multifactorial secondary CHF, COPD exacerbation and lung cancer no evidence of PE on CT angiogram Elevated BNP, pending echo Continue Solu-Medrol, DuoNeb p.r.n. as well as scheduled 20 mg p.o. furosemide, Wean oxygen down as tolerated # acute COPD exacerbation Continue Solu-Medrol, DuoNeb titrate oxygen off as tolerated # acute diastolic CHF exacerbation Echo showed EF of 70% with degree to diastolic dysfunction elevated BNP, evidence of pleural effusion on CT angiogram strict I&O, daily weight low-sodium diet Cardiology input appreciated, Lucienix 20 mg daily # acute on chronic symptomatic anemia Hemoglobin level dropped to 6.9 Likely chemo related Check occult stool To give a unit of blood Follow CBC # VIKTORIYA likely secondary to CHF Improving follow BMP # leukocytosis Secondary to cancer treatment, resolved Oncology input appreciated # pathological fracture of T6 concerning for bone metastasis which appears to be new followed by Hematology-Oncology patient denies pain at this time # HTN continue home antihypertensives # lactic acidosis Type B secondary to malignancy not hypoperfusion Keep oxygen level above 90% DVT prophylaxis: Heparin subQ Pt will require overnight hospital stay for management of CHF exacerbation, COPD with IV Solu-Medrol and Lasix, symptomatic anemia requiring transfusion pending safe discharge plan Quality Stroke Does the patient have a stroke diagnosis?: No VTE Prior VTE?: No VTE Risk Level:: Medical - moderate - high VTE Device Contraindication: Treatment Not Indicated VTE Drug Contraindication: N/A - Med Ordered
[2022-01-20] MEDS: 0.9 % Sodium Chloride Flush 3 ML SYRINGE IVFLUSH (22:23)
[2022-01-21 04:00] VITALS: BP 149/84; PULSE 64; RESP 18; TEMP 37.1; O2SAT 93
[2022-01-21] MEDS: Omeprazole 20 MG CAPSULE.DR PO (05:27)
[2022-01-21] MEDS: Heparin Sodium,Porcine 5,000 UNIT/ML VIAL 5000 UNIT SUBCUT (05:57)
[2022-01-21 06:54] LABS: Anion Gap 18 (12-20); Blood Urea Nitrogen 42 mg/dL (9-16); Calcium 8.3 mg/dL (8.4-10.2); Carbon Dioxide 31 mmol/L (22-29); Chloride 94 mmol/L (96-108); Creatinine Clr Calc Pharmacy 74.5; Estimated Glomerular Filt Rate 60; Glucose Random 152 mg/dL (60-115); Potassium 3.9 mmol/L (3.3-5.1); Sodium 139 mmol/L (135-145)
[2022-01-21 07:09] LABS: Hematocrit 23.5 % (37.0-47.0); Hemoglobin 7.9 g/dl (12.0-16.0); Mean Corpuscular HGB Conc 33.6 g/dl (31.0-35.0); Mean Corpuscular Hemoglobin 28.6 pg (27.0-33.0); Mean Corpuscular Volume 85.1 fL (80.0-98.0); Mean Platelet Volume 11.7 fL (9.4-12.3); Red Blood Count 2.76 X10*6/uL (4.20-5.50); Red Cell Distribution Width 16.9 % (11.0-16.0)
[2022-01-21 07:10] LABS: Platelet Count 35 X10*3/uL (160-400)
[2022-01-21 07:20] LABS: B Type Natriuretic Peptide 360 pg/mL (<100)
[2022-01-21 07:28] VITALS: BP 144/82; PULSE 62; RESP 18; TEMP 36.1
[2022-01-21] MEDS: PARoxetine HCL 30 MG TABLET 60 MG PO (09:16)
[2022-01-21] MEDS: Buprenorphine/Naloxone 4/1 mg FILM 1 FILM SUBLINGUAL (09:16)
[2022-01-21] MEDS: dilTIAZem HCL CD 180 MG CAP.ER.24H PO (09:16)
[2022-01-21] MEDS: 0.9 % Sodium Chloride Flush 3 ML SYRINGE IVFLUSH (09:17)
[2022-01-21] MEDS: Metoprolol Tartrate 50 MG TABLET PO (09:19)
[2022-01-21] MEDS: hydroCHLOROthiazide 25 MG TABLET PO (09:19)
[2022-01-21] MEDS: Azithromycin 500 MG TABLET PO (09:19)
[2022-01-21] MEDS: Folic Acid 1 MG TABLET PO (09:19)
[2022-01-21] MEDS: methylPREDNISolone Sod Succ 40 MG/ML VIAL IVPUSH (09:20)
[2022-01-21] MEDS: Furosemide 20 MG TABLET PO (09:20)
--- NOTE | 2022-01-21 11:11 | P.DS_ITS ---
DS: Providers Provider Date of Service: 01/21/22 Date of admission: 01/18/22 04:54 Primary care physician: Daphne Rodriguez MD Consults: 01/18/22 04:54 Consult to Cardiology Routine Consulting Provider: Simone Ramachandran Reason for consultation: chf Has provider been notified: No Consult to Hematology / Oncology Routine Consulting Provider: Alexandria Samuels Reason for consultation: lung cancer, sclerotic bone lesions Has provider been notified: No DS: Diagnosis Discharge Diagnosis (1) Acute diastolic (congestive) heart failure: Status: Acute (2) VIKTORIYA (acute kidney injury): Status: Acute (3) Acute respiratory failure with hypoxia: Status: Acute (4) COPD with acute exacerbation: Status: Acute (5) Symptomatic anemia: Status: Acute DS: Summary Hospital Course Hospital Course: from initial hpi: Chief Complaint: SOB 61-year-old female with past medical history of COPD, non-small cell lung cancer, history of breast cancer, depression, history of hepatitis-C, HTN, presents to the hospital with complaints of shortness of breath x1 day.? Patient reports that she started with a sore throat the day prior then developed significant shortness of breath, cough and sputum production on day of presentation.? She denies any chest pain, no palpitations, no abdominal pain, no diarrhea constipation, no urinary symptoms.? She does have orthopnea and PND.? Denies any lower extremity edema.She denies any back pain On arrival to the ED patient found to be hypertensive and noted to drop in O2 to 85% on room air.? Currently on 3 L satting 95% Labs are significant for WBC count of 42.8, hemoglobin of 8.3, hematocrit of 23.8 which is her baseline, pH of 7.34, CO2 of 55, creatinine of 1.49 with a baseline of around 1.07, lactic acid of 2.1, troponin of 72.4, BNP of 1033, Chest CT angiogram shows no PE, small pleural effusions, improved right lower lobe aeration compared to prior imaging, couple focal right lower lobe nodule densities decreased in size, there is partial loss of height of the T6 vertebral body which is new from previous, appearance concerning 5 breath a logical fracture was subacute time course, there is additional sclerotic foci noted in the spine. Patient started on IV Lasix, given Solu-Medrol will be admitted for further management hospital course: Patient was admitted for acute hypoxic respiratory failure secondary to acute on chronic diastolic CHF and COPD with acute decompensation as well as lung cancer. She was treated with steroids, diuretics, bronchodilators. At discharge she will take 5 day course of prednisone and be started on low-dose Lasix maintenance. Patient acute on chronic symptomatic anemia with hemoglobin of 6.9 likely due to chemotherapy. She was transfused 1 unit of blood and hemoglobin improved appropriately to 7.9 at time of discharge. Patient was able to be wea duc off oxygen. She had some acute kidney injury on admission which resolved. On imaging noted to have pathological fracture at T6, not symptomatic, can follow up with Hematology-Oncology as outpatient. For hypertension she will continue metoprolol/hydrochlorothiazide. For opiate dependence she was continued on Suboxone. For mood disorder she was continued on Paxil. Patient is feeling better will be discharged home. Time Spent with Patient Time attestation: Total time spent providing and/or coordinating discharge services: Discharge coordination time: Greater than 30 minutes Quality: Safe Use of Opioids Does Pt have an Active Cancer Diagnosis on the Problem List?: Yes Opioid Measure Date for [facility] Report: 12/22/21 Opioid Measure Time for [facility] Report: 11:12 Quality: Stroke Does the patient have a stroke diagnosis?: No Physical Exam Vital Signs: Vital Signs: Last Vital Signs Temp 97.0 F 01/21/22 07:28 Pulse 62 01/21/22 07:28 Resp 18 01/21/22 07:28 BP 144/82 H 01/21/22 07:28 Pulse Ox 93 01/21/22 04:00 O2 Del Method 01/21/22 07:28 O2 Flow Rate 1 01/20/22 11:54 FiO2 95 01/21/22 07:28 Oxygen Flow Rate 3 01/18/22 00:59 BMI result Body Mass Index 33.5 DS: Data Data Completed and Pending Completed studies during hospitalization [Text1]: Procedures Transfusion of Nonautologous Platelets into Peripheral Vein, Percutaneous Approach (01/07/22) Transfusion of Nonautologous Red Blood Cells into Peripheral Vein, Percutaneous Approach (01/07/22) Labs on day of discharge: Laboratory Results - last 24 hr 01/18/22 01/20/22 01/21/22 01:24 09:09 06:11 WBC 2.0 L RBC 2.76 L Hgb 7.9 L Hct 23.5 L MCV 85.1 MCH 28.6 MCHC 33.6 RDW 16.9 H Plt Count 35 L D MPV 11.7 Absolute Nucleated RBC 0.000 Nucleated RBC % (auto) 0.0 Smear Path Review SEE NOTE Sodium Potassium Chloride Carbon Dioxide Anion Gap BUN Creatinine Estim Creat Clear Calc Estimated GFR Random Glucose Calcium B-Natriuretic Peptide Crossmatch See Detail 01/21/22 01/21/22 06:11 06:11 WBC RBC Hgb Hct MCV MCH MCHC RDW Plt Count MPV Absolute Nucleated RBC Nucleated RBC % (auto) Smear Path Review Sodium 139 Potassium 3.9 Chloride 94 L Carbon Dioxide 31 H Anion Gap 18 BUN 42 H Creatinine 0.95 Estim Creat Clear Calc 74.5 Estimated GFR 60 Random Glucose 152 H Calcium 8.3 L B-Natriuretic Peptide 360 H Crossmatch Preliminary micro results at discharge 01/18/22 01:28 Blood Culture - Preliminary Blood - Venous No growth after 48 hours. 01/18/22 01:28 Blood Culture - Preliminary Blood - Venous No growth after 48 hours. Discharge Plan Discharge Anticipated Discharge Date/Time: 01/21/22 11:08 Patient Disposition: Home, Self-Care Discharge Diagnosis: pancytopenia Referrals: Daphne Rodriguez MD [Primary Care Provider] - 1 Week Discharge Medications: New furosemide 20 mg Tablet 20 mg PO DAILY Qty: 30 0RF Protocol: Hold for SBP< HOLD for SBP < : 90 prednisone 20 mg tablet 40 mg PO DAILY Qty: 10 0RF Continued metoprolol ta-hydrochlorothiaz 50-25 mg tablet 1 tab PO DAILY paroxetine HCl 20 mg tablet 60 mg PO DAILY docusate sodium 100 mg capsule 1 cap PO BEDTIME PRN (Reason: Constipation) omeprazole 20 mg capsule,delayed release(DR/EC) 20 mg PO DAILY folic acid 1 mg tablet 1 mg PO DAILY diltiazem HCl [DILT-XR] 180 mg capsule,ext.rel 24h degradable 180 mg PO DAILY Savella 50 mg tablet 50 mg PO BID buprenorphine-naloxone [Suboxone] 4-1 mg film 1 strip sublingual DAILY Anoro Ellipta 62.5-25 mcg/actuation blister with device 1 puff INHALATION DAILY Discontinued aspirin 81 mg tablet,delayed release (DR/EC) 81 mg PO DAILY Discharge Orders: Discharge Order (Routine); Ordered 01/21/22 Ordered By: Joel Brink Diet: Advance to usual diet Activity on Discharge: As tolerated Stand Alone Forms: Patient Portal Discharge page Care Plan Goals: recovery Health Concerns: cancer, pancytopenia, chf, copd Plan of Treatment: starting maintenance lasix, predniosne course, stop aspiring Assessment: see above
[2022-01-21] MEDS: Albuterol/Iprat 2.5/0.5MG 3 ML AMPUL.NEB INHALE (11:20)
[2022-01-21 11:22] VITALS: PULSE 75; RESP 18; O2SAT 98
--- NOTE | 2022-01-21 11:46 | MHC.CM.PN ---
IMM 01/21/22 Female 61 DX CHF is discharged today to home self care. The patient has arranged for transportation home from her dtr.
== END 2022-01-21 13:21 | disposition home or self-care (01) | DRG 140 ==
LOC: HO.ED 03:13 → HO.EDOVER 05:00 → HO.IMC 19:54
PROVIDERS: Student in an Organized Health Care Education/Training Program; Admitting Provider Internal Medicine; Emergency Provider Emergency Medicine; PCP Pediatrics; Visit Provider Internal Medicine
DX: J44.1 Chronic obstructive pulmonary disease with (acute) exacerbation (principal); J96.01 Acute respiratory failure with hypoxia; I50.33 Acute on chronic diastolic (congestive) heart failure; E87.20 Acidosis, unspecified; C79.51 Secondary malignant neoplasm of bone; N17.9 Acute kidney failure, unspecified; C34.11 Malignant neoplasm of upper lobe, right bronchus or lung; I24.8 Other forms of acute ischemic heart disease; D63.0 Anemia in neoplastic disease; I11.0 Hypertensive heart disease with heart failure; C34.12 Malignant neoplasm of upper lobe, left bronchus or lung; D69.59 Other secondary thrombocytopenia; F11.20 Opioid dependence, uncomplicated; F17.210 Nicotine dependence, cigarettes, uncomplicated; T45.1X5A Adverse effect of antineoplastic and immunosuppressive drugs, initial encounter; D64.81 Anemia due to antineoplastic chemotherapy; D72.829 Elevated white blood cell count, unspecified; K21.9 Gastro-esophageal reflux disease without esophagitis; Z20.822 Contact with and (suspected) exposure to COVID-19; Z90.2 Acquired absence of lung [part of]; Z86.19 Personal history of other infectious and parasitic diseases; Z85.3 Personal history of malignant neoplasm of breast; Z71.6 Tobacco abuse counseling; Z88.5 Allergy status to narcotic agent; Z88.8 Allergy status to other drugs, medicaments and biological substances; Z79.52 Long term (current) use of systemic steroids; Z79.899 Other long term (current) drug therapy
CPT/HCPCS: 36415; 71275; 80048; 80076; 82803; 83605; 83880; 84484; 85007; 85027; 85379; 85610; 86850; 86900; 86901; 86923; 87040; 87635; 93005; 93306; 94640; 99285; J0692; J1940; J2920; J2930; J3475; P9016; Q9957; Q9967

== ENCOUNTER 2022-01-24 09:52 | Inpatient (IN) | payer MEDICAID, SELFPAY ==
[2022-01-24] VITALS (20 sets, daily range): BP systolic 109–150; BP diastolic 75–95; PULSE 77–140; RESP 15–24; TEMP 36.6–37.2; O2SAT 96–99; BMI 33.3; BMI 31.6
--- NOTE | ~2022-01-24 | XR_ITS ---
EXAMINATION: XR CHEST CLINICAL INFORMATION: SOB COMPARISON: CT chest 01/18/2022 TECHNIQUE: Frontal view of the chest was obtained. FINDINGS: The lungs are well-expanded with increased interstitial markings in both lungs likely chronic scarring. There are chain link sutures in the left midlung and right parahilar region likely from previous wedge resection. No acute consolidation seen. There is mild blunting of right CP angle likely pleural thickening. XR/XR chest 1V IMPRESSION: Surgical changes right parahilar region left midlung. There are increased bilateral interstitial markings likely chronic changes. No acute consolidation.
--- NOTE | ~2022-01-24 | CT_ITS ---
EXAMINATION: CT ANGIOGRAM OF THE CHEST WITH AND WITHOUT CONTRAST (CT PULMONARY ANGIOGRAM FOR PE) CLINICAL INFORMATION: Reason for Exam lung ca, SOB, elevated-dimer COMPARISON: CT chest 01/18/2022 TECHNIQUE: Prior to contrast administration, noncontrast localization images were obtained. Subsequently, multidetector volumetric imaging was performed from the thoracic inlet to below the diaphragms following the administration of 65 mL Omnipaque 350 intravenous contrast. No contrast reaction reported Sagittal, coronal, and MIP oblique sagittal reformatted images were obtained on the CT workstation, uploaded to PACS, and reviewed. This CT examination was performed using dose optimization techniques as appropriate, variously including the following: *Automated exposure control *Adjustment of mA and/or kV according to patient size (this includes techniques or standardized protocols for targeted exams where dose is matched to indication/reason for exam; i.e. extremities or head) *Use of iterative reconstruction technique Total exam dose-length product 362 mGy-cm FINDINGS: QUALITY OF STUDY/CONTRAST BOLUS: Satisfactory. PULMONARY ARTERIES: No pulmonary embolism. CHEST WALL/AXILLA: No axillary lymphadenopathy. LUNGS: Postsurgical changes of right upper lobectomy. Again seen is moderate centrilobular and paraseptal emphysema. Mild diffuse bronchial wall thickening suggesting airways inflammation similar to prior. Similar post surgical changes of left upper lobe wedge resection. Few solid and groundglass pulmonary nodules are not significantly changed from recent prior, most notably a 2.2 x by 0.9 cm solid left lower lobe pulmonary nodule, 7:344, previously 2.1 x 0.9 cm when measured in a similar fashion and a 1.3 x 0.5 cm solid left lower lobe pulmonary nodule, 7:203, previously 1.3 x 0.5 cm measuring a similar fashion, and appears to be associated with cystic airspace. MEDIASTINUM: Heart is normal in size. No mediastinal lymphadenopathy. No hilar lymphadenopathy. CORONARY ARTERY CALCIFICATION: PLEURA: Stable small right pleural effusion. Resolution of previously seen trace left pleural effusion. UPPER ABDOMEN: A 1.5 cm intrinsically hypodense right adrenal nodule measuring less than 10 Hounsfield units suggesting an adrenal adenoma. OSSEOUS STRUCTURES: Partially imaged cervical fusion hardware. Redemonstration of a subacute to chronic left rib fracture deformity. Compared to recent prior and a stable wedge compression deformity of the T6 vertebral body and similar wedging of the T7 vertebral body with stable sclerotic osseous lesions. CT/CT angio chest PE protocol IMPRESSION: No pulmonary embolism. Post surgical changes of right upper lobectomy and left upper lobe wedge resection with similar surrounding groundglass pulmonary nodules within compared to prior. Resolution of trace left pleural effusion with stable small right pleural effusion. Similar sclerotic osseous lesions raising the suspicion for osseous metastases and stable thoracic wedge compression deformities. VTE: negative
--- NOTE | 2022-01-24 10:11 | ECG_ITS ---
Test Reason : SOB Blood Pressure : / mmHG Vent. Rate : 137 BPM Atrial Rate : 394 BPM P-R Int : 000 ms QRS Dur : 074 ms QT Int : 308 ms P-R-T Axes : 000 019 241 degrees QTc Int : 465 ms Atrial flutter with variable A-V block Nonspecific ST and T wave abnormality Abnormal ECG When compared with ECG of 18-JAN-2022 01:03, Atrial flutter has replaced Sinus rhythm Vent. rate has increased BY [address] now depressed in Lateral leads Nonspecific T wave abnormality, worse in Inferior leads Referred By: Tamiko Mcdonald Electronically Signed By:FRANCE SLAUGHTER MD
--- NOTE | 2022-01-24 10:18 | ED_ITS ---
HPI - SOB/Dyspnea General Chief Complaint: Dyspnea Stated Complaint: SOB Time Seen by Provider: 01/24/22 09:56 Source: patient and EMS History of Present Illness HPI Narrative: 61-year-old female with a past medical history of COPD, non cell lung CA on chemotherapy, history of breast CA, depression, hepatitis-C, HTN, recently discharged from our facility on 01/21/2022 for CHF, VIKTORIYA, hypoxic respiratory failure, COPD and symptomatic anemia, presenting back to the ED complaining of productive cough, sore throat, SOB, and chest pain when swallowing since dischar ge. States has been unable to tolerate p.o., has not taken any of her oral medications. Per EMS patient in AFib with RVR, received 50 cc of IV en route. Denies headache, abdominal pain, nausea, vomiting, diarrhea, pedal edema MD elicited complaint: shortness of breath and cough Related Data Home Medications Medication Instructions Recorded Confirmed buprenorphine 4 mg-naloxone 1 mg 1 strip sublingual DAILY 01/18/22 01/24/22 sublingual film (Suboxone) diltiazem HCl 180 mg 180 mg PO DAILY 01/18/22 01/24/22 capsule,extended release 24 hr, controlled (DILT-XR) docusate sodium 100 mg capsule 1 cap PO BEDTIME PRN Constipation 01/18/22 01/24/22 folic acid 1 mg tablet 1 mg PO DAILY 01/18/22 01/24/22 metoprolol tartrate 50 1 tab PO DAILY 01/18/22 01/24/22 mg-hydrochlorothiazide 25 mg tablet milnacipran 50 mg tablet (Savella) 50 mg PO BID 01/18/22 01/24/22 omeprazole 20 mg capsule,delayed 20 mg PO DAILY@0630 01/18/22 01/24/22 release paroxetine HCl 20 mg tablet 60 mg PO DAILY 01/18/22 01/24/22 umeclidinium 62.5 mcg-vilanterol 1 puff inhalation DAILY 01/18/22 01/24/22 25 mcg/actuation powdr for inhalation (Anoro Ellipta) Previous Rx's Medication Instructions Recorded furosemide 20 mg tablet 20 mg PO DAILY #30 tabs 01/21/22 prednisone 20 mg tablet 40 mg PO DAILY #10 tabs 01/21/22 Allergies Allergy/AdvReac Type Severity Reaction Status Date / Time lisinopril [LISINOPRIL] Allergy Severe SWELLING- Verified 01/15/22 12:39 ANGIOEDEMA codeine [CODEINE] Allergy Intermediate VOMITING/HIVES, Verified 01/15/22 12:39 vomiting, hives Review of Systems Review of Systems: Constitutional: No Fever, No Chills, No Night Sweats, No Fatigue, No Malaise ENT/Mouth: No Hearing loss, No Ear Pain, No Hoarseness, + sore throat, No Rhinorrhea, No Swallowing Difficulty Eyes: No Eye Pain, No Swelling, No Redness, No Foreign Body, No Discharge, No Vision Changes Cardiovascular: No Chest Pain, + SOB, No Dyspnea on Exertion, No Orthopnea, No Edema, No Palpitations Respiratory: + Cough, + Sputum, No Wheezing, + Dyspnea Gastrointestinal: No Nausea, No Vomiting, No Diarrhea, No Constipation, No Abdominal pain Genitourinary: No Dysuria, No Urinary Frequency, No Hematuria, No Urgency, No Flank Pain, No Urinary Flow Changes, No Hesitancy Musculoskeletal: No joint pain, No Myalgias, No Joint Swelling Skin: No Skin Lesions, No rash Neuro: No Weakness, No Numbness, No Loss of Consciousness, No Dizziness, No Headache P Yes all other systems are reviewed and are negative Constitutional: Constitutional: Reports as per [facility] Past Medical History Attestation statement: The following information was validated with the patient. Medical History Bilateral lung cancer Cancer of upper lobe of left lung (~2020) Cancer of upper lobe of right lung (~2019) COPD (chronic obstructive pulmonary disease) Depression GERD (gastroesophageal reflux disease) History of breast cancer (~2006) History of hepatitis C HTN (hypertension) Internal and external bleeding hemorrhoids Obesity Pulmonary nodules Smoker Tubular adenoma of colon Surgical History History of anterior colporrhaphy (~2016) History of back surgery (~2011) History of colonoscopy (~2014) History of hemorrhoidectomy (~2019) History of lobectomy of lung (~2019) History of lumpectomy of right breast (~2006) History of lung surgery (~2020) History of tubal ligation Family History Family History Mother History of lung cancer Brother History of lung cancer Maternal Grandmother Breast cancer in female Maternal Aunt Breast cancer in female Daughter Thyroid cancer Social History Social History Household Members: None Housing: Apartment Are you a primary intensive care nurse to a significant other at home: No Do you presently have visiting nurse or other home services: No Alcohol intake: never Patient Tobacco Use Status: Never used Tobacco Tobacco use type: Cigar Years Smoked: 46 Second Hand Smoke Exposure: No Use of substances other than those prescribed or required for medical reasons: No Substance Use Type: Marijuana Advance Directives: No Advance Directives Information Provided: No service: No Current occupational status: disabled Current occupational exposures/hazards: No Physical Exam Vital Signs: Vital Signs: Last Vital Signs Temp 98.3 F 01/24/22 13:32 Pulse 113 H 01/24/22 13:35 Resp 22 H 01/24/22 13:35 BP 130/87 01/24/22 13:35 Pulse Ox 98 01/24/22 12:51 O2 Del Method 01/24/22 12:51 O2 Flow Rate 99 01/24/22 10:06 BMI result Body Mass Index 33.3 Const: General: cooperative and no acute distress Orientation/consciousness: patient oriented x3 Limitations: no limitations HEENT: Head: Yes normal to inspection and Yes atraumatic Ears: hearing grossly normal bilaterally General nose exam: Normal external nose present Face and sinus: Yes normal facial exam Mouth: Abnormal oral and palatal mucosa present erythematous and white patches Throat: Yes uvula midline, No uvula laterally displaced and No uvular edema Eyes: General: appearance normal, both eyes and all related structures EOM: EOMs intact bilaterally Neck: Neck: Yes normal visual inspection and Yes no meningeal signs Resp: Effort & Inspection: normal respiratory effort and no respiratory dis tress Auscultation: diminished lung sounds on the right in the lower lung greer Cardio: Rate: regular rate and tachycardic Rhythm: abnormal rhythm Heart sounds: S1 normal heart sound present and S2 normal heart sound present GI: Inspection: Yes normal to inspection Palpation (GI): Soft to palpation, nontender, no guarding and not rigid : General: Yes no CVA tenderness Back/Spine/Pelvis: Back: no CVA tenderness Skin: Rashes: no rashes Wounds: no wounds Neuro: General: patient oriented x3, tone normal, moves all extremities and no meningeal signs Extrem: General: Yes normal to inspection and Yes no pedal edema Course Course Course Narrative: -1110--pancytopenic with a WBC count of 0.3 and platelets of 7.0 > likely chemotherapy induced. Oncology, Dr. Samuels consulted -D-dimer elevated to 412 > will obtain CT to rule PE. Chronic lactic acidosis. Low suspicion for severe sepsis at this time, afebrile -1125--spoke with Oncology, Dr. Aguirre, recommended 1 unit of platelets, 2 units of RBCs and medical admission. Recommended Infectious Disease consult for thrush XR chest 1V IMPRESSION: Surgical changes right parahilar region left midlung. There are increased bilateral interstitial markings likely chronic changes. No acute consolidation. -patient is still tachycardic to 126 after 2nd dose of IV Cardizem. Will initiate drip -troponin chronically elevated to 83.1 > will obtain 3 hour repeat. BNP 361. Labs otherwise at patient's baseline -1423--repeat lactic mildly improved to 2.1. Repeat troponin without rise, MO unlikely CT angio chest PE protocol IMPRESSION: No pulmonary embolism. ? Post surgical changes of right upper lobectomy and left upper lobe wedge resection with similar surrounding groundglass pulmonary nodules within compared to prior. ? Resolution of trace left pleural effusion with stable small right pleural effusion. ? Similar sclerotic osseous lesions raising the suspicion for osseous metastases and stable thoracic wedge compression deformities. ? VTE: negative >> patient admitted to hospitalist team for further management MDM - SOB/Dyspnea MDM Narrative Medical decision making narrative: 61-year-old female with a past medical history of COPD, non cell lung CA on chem otherapy, history of breast CA, depression, hepatitis-C, HTN, recently discharged from our facility on 01/21/2022 for CHF, VIKTORIYA, hypoxic respiratory failure, COPD and symptomatic anemia, presenting back to the ED complaining of productive cough, sore throat, SOB, and chest pain when swallowing since discharge. On exam patient noted to be in AFib/flutter in RVR with a rate 137, decreased lung sounds to right base, abdomen soft/nontender, no pedal edema. Concern for new onset AFib from ?PE vs anemia vs CHF vs COPD exacerbation vs ACS. Low suspicion DVT at this time Low suspicion for for severe sepsis at this time. Elevated heart rate from arrhythmia Plan: EKG, labs, CXR, rate control, anticipated admission Differential Diagnosis Differential diagnosis: Likely acute exacerbation of chronic obstructive airways disease, congestive heart failure, pneumonia, pulmonary embolism, pleural effusion and anemia Medical Records Attestation: I reviewed the patient's medical records. Lab Data Attestation: I reviewed the patient's lab results. Result diagrams: 01/24/22 10:30 01/24/22 10:30 Labs: Lab Results 01/24/22 01/24/22 01/24/22 Range/Units 10:30 10:30 10:30 WBC 0.3 L* (4.8-10.8) X10*3/uL RBC 2.69 L (4.20-5.50) X10*6/uL Hgb 7.8 L (12.0-16.0) g/dl Hct 22.3 L (37.0-47.0) % MCV 82.9 (80.0-98.0) fL MCH 29.0 (27.0-33.0) pg MCHC 35.0 (31.0-35.0) g/dl RDW 16.1 H (11.0-16.0) % Plt Count 7 L* D (160-400) X10*3/uL MPV Not Reportable Immature Gran % (Auto) Cancelled Neut % (Auto) Cancelled Lymph % (Auto) Cancelled [place] % (Auto) Cancelled Eos % (Auto) Cancelled Baso % (Auto) Cancelled Lymph # (Auto) Cancelled [place] # (Auto) Cancelled Eos # (Auto) Cancelled Baso # (Auto) Cancelled Abs Immat Gran (auto) Cancelled Absolute Neuts (auto) Cancelled Absolute Nucleated RBC 0.000 (0.0-0.012) X10*3/uL Nucleated RBC % (auto) 0.0 (0.0-0.2) /100WBC Neutrophils % (Manual) 0 L (45-73) % Band Neutrophils % 0 L (3-5) % Lymphocytes % (Manual) 94 H (20-40) % Atypical Lymphs % (Man) 4 (0-6) % Monocytes % (Manual) 2 (2-11) % Abs Neuts (Manual) Not Reportable Lymphocytes # (Manual) 0.3 L (1.2-4.9) X10*3/uL Platelet Estimate DECREASED (NORMAL) Plt Morphology Comment NORMAL RBC Morphology NOTED Hypochromasia 1+ (5-14) /OIF Ovalocytes 1+ (5-14) /OIF PT 13.6 H (10.0-13.1) SEC INR 1.2 H (0.9-1.1) D-Dimer High Sensitivty 412 NG/ML Sodium 138 (135-145) mmol/L Potassium 3.3 (3.3-5.1) mmol/L Chloride 94 L (96-108) mmol/L Carbon Dioxide 27 (22-29) mmol/L Anion Gap 20 (12-20) BUN 40 H (9-16) mg/dL Creatinine 1.25 (0.5-1.4) mg/dL Estim Creat Clear Calc 56.4 Estimated GFR 44 Random Glucose 185 H (60-115) mg/dL Lactic Acid (0.5-2.0) mmol/L Lactic Acid F/U @ 2Hr (0.5-2.0) mmol/L Calcium 8.0 L (8.4-10.2) mg/dL Magnesium 1.5 L (1.6-2.6) mg/dL Total Bilirubin 1.8 H (0.0-1.0) mg/dL Direct Bilirubin 0.8 H (0.0-0.5) mg/dL AST 10 D (5-31) U/L ALT 24 (0-31) U/L Alkaline Phosphatase 60 D (39-117) U/L Troponin I High Sens (<3.5-17.0) ng/L B-Natriuretic Peptide (<100) pg/mL Total Protein 6.8 (6.5-8.0) g/dL Albumin 3.8 (3.5-5.0) g/dL Urine Color Urine Appearance Urine pH (5.0-9.0) Ur Specific [place] (1.005-1.025) Urine Protein (Neg-Trace) mg/dL Urine Glucose (UA) (Negative) mg/dL Urine Ketones (Negative) mg/dL Urine Blood (Negative) Urine Nitrite (Negative) Ur Leukocyte Esterase (Negative) Urine RBC (0-2) /HPF Urine WBC (0-5) /HPF Ur Squamous Epith Cells (0-2) /HPF Urine Bacteria (None Seen) Hyaline Casts (0-2) /LPF COVID-19 (OLAYINKA) (Negative) COVID-19 Clin Com Influenza Type A (ABRAM) (Negative) Influenza Type B (ABRAM) (Negative) Influenza A & B Note Blood Type Antibody Screen Crossmatch 01/24/22 01/24/22 01/24/22 Range/Units 10:30 10:30 10:30 WBC (4.8-10.8) X10*3/uL RBC (4.20-5.50) X10*6/uL Hgb (12.0-16.0) g/dl Hct (37.0-47.0) % MCV (80.0-98.0) fL MCH (27.0-33.0) pg MCHC (31.0-35.0) g/dl RDW (11.0-16.0) % Plt Count (160-400) X10*3/uL MPV Immature Gran % (Auto) Neut % (Auto) Lymph % (Auto) [place] % (Auto) Eos % (Auto) Baso % (Auto) Lymph # (Auto) [place] # (Auto) Eos # (Auto) Baso # (Auto) Abs Immat Gran (auto) Absolute Neuts (auto) Absolute Nucleated RBC (0.0-0.012) X10*3/uL Nucleated RBC % (auto) (0.0-0.2) /100WBC Neutrophils % (Manual) (45-73) % Band Neutrophils % (3-5) % Lymphocytes % (Manual) (20-40) % Atypical Lymphs % (Man) (0-6) % Monocytes % (Manual) (2-11) % Abs Neuts (Manual) Lymphocytes # (Manual) (1.2-4.9) X10*3/uL Platelet Estimate (NORMAL) Plt Morphology Comment RBC Morphology Hypochromasia /OIF Ovalocytes /OIF PT (10.0-13.1) SEC INR (0.9-1.1) D-Dimer High Sensitivty NG/ML Sodium (135-145) mmol/L Potassium (3.3-5.1) mmol/L Chloride (96-108) mmol/L Carbon Dioxide (22-29) mmol/L Anion Gap (12-20) BUN (9-16) mg/dL Creatinine (0.5-1.4) mg/dL Estim Creat Clear Calc Estimated GFR Random Glucose (60-115) mg/dL Lactic Acid 2.5 H* (0.5-2.0) mmol/L Lactic Acid F/U @ 2Hr (0.5-2.0) mmol/L Calcium (8.4-10.2) mg/dL Magnesium (1.6-2.6) mg/dL Total Bilirubin (0.0-1.0) mg/dL Direct Bilirubin (0.0-0.5) mg/dL AST (5-31) U/L ALT (0-31) U/L Alkaline Phosphatase (39-117) U/L Troponin I High Sens 83.1 H* (<3.5-17.0) ng/L B-Natriuretic Peptide 361 H (<100) pg/mL Total Protein (6.5-8.0) g/dL Albumin (3.5-5.0) g/dL Urine Color Urine Appearance Urine pH (5.0-9.0) Ur Specific [place] (1.005-1.025) Urine Protein (Neg-Trace) mg/dL Urine Glucose (UA) (Negative) mg/dL Urine Ketones (Negative) mg/dL Urine Blood (Negative) Urine Nitrite (Negative) Ur Leukocyte Esterase (Negative) Urine RBC (0-2) /HPF Urine WBC (0-5) /HPF Ur Squamous Epith Cells (0-2) /HPF Urine Bacteria (None Seen) Hyaline Casts (0-2) /LPF COVID-19 (OLAYINKA) (Negative) COVID-19 Clin Com Influenza Type A (ABRAM) Negative (Negative) Influenza Type B (ABRAM) Negative (Negative) Influenza A & B Note See Note Blood Type Antibody Screen Crossmatch 01/24/22 01/24/22 01/24/22 Range/Units 10:30 11:54 13:37 WBC (4.8-10.8) X10*3/uL RBC (4.20-5.50) X10*6/uL Hgb (12.0-16.0) g/dl Hct (37.0-47.0) % MCV (80.0-98.0) fL MCH (27.0-33.0) pg MCHC (31.0-35.0) g/dl RDW (11.0-16.0) % Plt Count (160-400) X10*3/uL MPV Immature Gran % (Auto) Neut % (Auto) Lymph % (Auto) [place] % (Auto) Eos % (Auto) Baso % (Auto) Lymph # (Auto) [place] # (Auto) Eos # (Auto) Baso # (Auto) Abs Immat Gran (auto) Absolute Neuts (auto) Absolute Nucleated RBC (0.0-0.012) X10*3/uL Nucleated RBC % (auto) (0.0-0.2) /100WBC Neutrophils % (Manual) (45-73) % Band Neutrophils % (3-5) % Lymphocytes % (Manual) (20-40) % Atypical Lymphs % (Man) (0-6) % Monocytes % (Manual) (2-11) % Abs Neuts (Manual) Lymphocytes # (Manual) (1.2-4.9) X10*3/uL Platelet Estimate (NORMAL) Plt Morphology Comment RBC Morphology Hypochromasia /OIF Ovalocytes /OIF PT (10.0-13.1) SEC INR (0.9-1.1) D-Dimer High Sensitivty NG/ML Sodium (135-145) mmol/L Potassium (3.3-5.1) mmol/L Chloride (96-108) mmol/L Carbon Dioxide (22-29) mmol/L Anion Gap (12-20) BUN (9-16) mg/dL Creatinine (0.5-1.4) mg/dL Estim Creat Clear Calc Estimated GFR Random Glucose (60-115) mg/dL Lactic Acid (0.5-2.0) mmol/L Lactic Acid F/U @ 2Hr (0.5-2.0) mmol/L Calcium (8.4-10.2) mg/dL Magnesium (1.6-2.6) mg/dL Total Bilirubin (0.0-1.0) mg/dL Direct Bilirubin (0.0-0.5) mg/dL AST (5-31) U/L ALT (0-31) U/L Alkaline Phosphatase (39-117) U/L Troponin I High Sens 80.4 H* (<3.5-17.0) ng/L B-Natriuretic Peptide (<100) pg/mL Total Protein (6.5-8.0) g/dL Albumin (3.5-5.0) g/dL Urine Color Urine Appearance Urine pH (5.0-9.0) Ur Specific [place] (1.005-1.025) Urine Protein (Neg-Trace) mg/dL Urine Glucose (UA) (Negative) mg/dL Urine Ketones (Negative) mg/dL Urine Blood (Negative) Urine Nitrite (Negative) Ur Leukocyte Esterase (Negative) Urine RBC (0-2) /HPF Urine WBC (0-5) /HPF Ur Squamous Epith Cells (0-2) /HPF Urine Bacteria (None Seen) Hyaline Casts (0-2) /LPF COVID-19 (OLAYINKA) Negative (Negative) COVID-19 Clin Com See Note Influenza Type A (ABRAM) (Negative) Influenza Type B (ABRAM) (Negative) Influenza A & B Note Blood Type A Positive Antibody Screen NEGATIVE Crossmatch See Detail 01/24/22 01/24/22 Range/Units 13:37 13:49 WBC (4.8-10.8) X10*3/uL RBC (4.20-5.50) X10*6/uL Hgb (12.0-16.0) g/dl Hct (37.0-47.0) % MCV (80.0-98.0) fL MCH (27.0-33.0) pg MCHC (31.0-35.0) g/dl RDW (11.0-16.0) % Plt Count (160-400) X10*3/uL MPV Immature Gran % (Auto) Neut % (Auto) Lymph % (Auto) [place] % (Auto) Eos % (Auto) Baso % (Auto) Lymph # (Auto) [place] # (Auto) Eos # (Auto) Baso # (Auto) Abs Immat Gran (auto) Absolute Neuts (auto) Absolute Nucleated RBC (0.0-0.012) X10*3/uL Nucleated RBC % (auto) (0.0-0.2) /100WBC Neutrophils % (Manual) (45-73) % Band Neutrophils % (3-5) % Lymphocytes % (Manual) (20-40) % Atypical Lymphs % (Man) (0-6) % Monocytes % (Manual) (2-11) % Abs Neuts (Manual) Lymphocytes # (Manual) (1.2-4.9) X10*3/uL Platelet Estimate (NORMAL) Plt Morphology Comment RBC Morphology Hypochromasia /OIF Ovalocytes /OIF PT (10.0-13.1) SEC INR (0.9-1.1) D-Dimer High Sensitivty NG/ML Sodium (135-145) mmol/L Potassium (3.3-5.1) mmol/L Chloride (96-108) mmol/L Carbon Dioxide (22-29) mmol/L Anion Gap (12-20) BUN (9-16) mg/dL Creatinine (0.5-1.4) mg/dL Estim Creat Clear Calc Estimated GFR Random Glucose (60-115) mg/dL Lactic Acid (0.5-2.0) mmol/L Lactic Acid F/U @ 2Hr 2.1 H* (0.5-2.0) mmol/L Calcium (8.4-10.2) mg/dL Magnesium (1.6-2.6) mg/dL Total Bilirubin (0.0-1.0) mg/dL Direct Bilirubin (0.0-0.5) mg/dL AST (5-31) U/L ALT (0-31) U/L Alkaline Phosphatase (39-117) U/L Troponin I High Sens (<3.5-17.0) ng/L B-Natriuretic Peptide (<100) pg/mL Total Protein (6.5-8.0) g/dL Albumin (3.5-5.0) g/dL Urine Color Yellow Urine Appearance Clear Urine pH 6.5 (5.0-9.0) Ur Specific [place] >= 1.030 H (1.005-1.025) Urine Protein 100 (2+) H (Neg-Trace) mg/dL Urine Glucose (UA) Negative (Negative) mg/dL Urine Ketones Negative (Negative) mg/dL Urine Blood Negative (Negative) Urine Nitrite Negative (Negative) Ur Leukocyte Esterase Negative (Negative) Urine RBC 0-2 (0-2) /HPF Urine WBC 0-5 (0-5) /HPF Ur Squamous Epith Cells 11-20 (0-2) /HPF Urine Bacteria 1+ (None Seen) Hyaline Casts 0-2 (0-2) /LPF COVID-19 (OLAYINKA) (Negative) COVID-19 Clin Com Influenza Type A (ABRAM) (Negative) Influenza Type B (ABRAM) (Negative) Influenza A & B Note Blood Type Antibody Screen Crossmatch ECG Data Attestation: I personally reviewed and interpreted this ECG as follows: ECG interpretation date: 01/24/22 ECG interpretation time: 10:17 Prior ECG tracings: available for review Interpretation: EKG a flutter with variable AV block at a rate of 137. QRS 74. QTC 465. No STEMI. Critical Care Time Critical Care Time Critical Care Time: Yes Total Critical Care Time: 60 Attestation: I have personally provided critical care time exclusive of time spent on separately billable procedures. Time includes review of lab data, radiology results, discussion with consultants, and monitoring for potential decompensation. Intervention performed as documented. Discharge Plan Discharge Clinical Impression: New onset a-fib, Pancytopenia, Oral thrush Patient Disposition: Admitted As Inpatient
[2022-01-24] MEDS: dilTIAZem HCL 50 MG/10 ML VIAL 20 MG IVPUSH (10:25)
[2022-01-24 10:42] LABS: INTERNATIONAL NORM RATIO 1.2 (0.9-1.1); Prothrombin Time 13.6 SEC (10.0-13.1)
[2022-01-24 10:44] LABS: D Dimer High Sensitivity 412 NG/ML
[2022-01-24 10:51] LABS: COVID-19 Test Negative (Negative); IDNOW Serial# 16C4AD1C; Influenza A Negative (Negative); Influenza B2 Negative (Negative)
[2022-01-24 10:53] LABS: Hematocrit 22.3 % (37.0-47.0); Hemoglobin 7.8 g/dl (12.0-16.0); Mean Corpuscular Volume 82.9 fL (80.0-98.0); Red Blood Count 2.69 X10*6/uL (4.20-5.50); Red Cell Distribution Width 16.1 % (11.0-16.0); WBC ABN SCTR FOR CBC 1
[2022-01-24 10:54] LABS: White Blood Count 0.3 X10*3/uL (4.8-10.8)
[2022-01-24 10:55] LABS: Platelet Count 7 X10*3/uL (160-400)
[2022-01-24 11:03] LABS: Lactic Acid 2.5 mmol/L (0.5-2.0)
[2022-01-24] MEDS: Lactated Ringers 500 ML 999 ML IV (11:16)
[2022-01-24 11:17] LABS: Atypical Lymphs Percent Manual 4 % (0-6); Lymphocytes Absolute Manual 0.3 X10*3/uL (1.2-4.9); Lymphocytes Percent Manual 94 % (20-40); Monocytes Percent Manual 2 % (2-11)
[2022-01-24 11:18] LABS: B Type Natriuretic Peptide 361 pg/mL (<100); Band Neutrophils Percent 0 % (3-5); Neutrophils Percent Manual 0 % (45-73); Troponin-I High Sensitivity 83.1 ng/L (<3.5-17.0)
[2022-01-24 11:19] LABS: Hypochromasia 1+ (5-14) /OIF; Ovalocytes 1+ (5-14) /OIF; Platelet Estimate DECREASED (NORMAL); Platelet Morphology Comment NORMAL; RBC Morphology NOTED
[2022-01-24 11:31] LABS: Alanine Aminotransferase 24 U/L (0-31); Albumin Level 3.8 g/dL (3.5-5.0); Alkaline Phosphatase 60 U/L (39-117); Anion Gap 20 (12-20); Aspartate Amino Transferase 10 U/L (5-31); Bilirubin Direct 0.8 mg/dL (0.0-0.5); Bilirubin Total 1.8 mg/dL (0.0-1.0); Blood Urea Nitrogen 40 mg/dL (9-16); Carbon Dioxide 27 mmol/L (22-29); Chloride 94 mmol/L (96-108); Creatinine Clr Calc Pharmacy 56.4; Estimated Glomerular Filt Rate 44; Glucose Random 185 mg/dL (60-115); Magnesium 1.5 mg/dL (1.6-2.6); Potassium 3.3 mmol/L (3.3-5.1); Sodium 138 mmol/L (135-145); Total Protein 6.8 g/dL (6.5-8.0)
[2022-01-24] MEDS: dilTIAZem HCL 50 MG/10 ML VIAL 25 MG IVPUSH (11:35)
[2022-01-24 12:33] LABS: Reflex Lactate? Lactic Acid Added
[2022-01-24] MEDS: cefEPime HCl 2 GM in 0.9 % Sodium Chloride 50 ML IV (12:34)
--- NOTE | 2022-01-24 12:43 | P.CNHO_ITS ---
Subjective - Subjective Chief complaint: dyspnea Patient: known to practice within the last 3 years Consult date: 01/24/22 Primary Care Provider: Daphne Rodriguez MD HPI - Consult Narrative Reason for consult: lung cancer Narrative: Elida Schumacher is a 61 year old female just discharged January 21 who received chemotherapy with pembrolizumab, car boplatin and pemetrexed 01/15/2022 and neulasta the day after. She returned to the ER this morning for dyspnea and was severely pancytopenic with wbc 0.3, HCT22, plts 7,000. Review of Systems - Constitutional Reports anorexia - Eyes Reports other - ENT Reports as per HPI - Cardiovascular Reports shortness of breath - Respiratory Reports cough, Reports dyspnea on exertion - Gastrointestinal Reports change in bowel habits, Reports constipation - Genitourinary Reports other - Musculoskeletal Reports muscle weakness - Neurologic Reports system reviewed and no additional complaints, except as documented [facility] Medical History: Medical History (Last Reviewed 01/24/22 @ 10:29 by MATTI Wilson) Bilateral lung cancer Cancer of upper lobe of left lung Onset Date: ~2020 Cancer of upper lobe of right lung Onset Date: ~2019 COPD (chronic obstructive pulmonary disease) Depression GERD (gastroesophageal reflux disease) History of breast cancer Onset Date: ~2006 History of hepatitis C HTN (hypertension) Internal and external bleeding hemorrhoids Obesity Pulmonary nodules Smoker Tubular adenoma of colon Family History: Family History (Last Reviewed 01/24/22 @ 10:29 by MATTI Wilson) Mother History of lung cancer Brother History of lung cancer Maternal Grandmother Breast cancer in female Maternal Aunt Breast cancer in female Daughter Thyroid cancer Surgical History: Surgical History (Last Reviewed 01/24/22 @ 10:29 by MATTI Wilson) History of anterior colporrhaphy Onset Date: ~2016 History of back surgery Onset Date: ~2011 History of colonoscopy Onset Date: ~2014 History of hemorrhoidectomy Onset Date: ~2019 History of lobectomy of lung Onset Date: ~2019 History of lumpectomy of right breast Onset Date: ~2006 History of lung surgery Onset Date: ~2020 History of tubal ligation Social History: Social History (Last Reviewed 01/24/22 @ 10:29 by MATTI Wilson) Living Situation History: Household Members: None Housing: Apartment Are you a primary acute care certified nursing assistant to a significant other at home: No Do you presently have visiting nurse or other home services: No Tobacco History: Patient Tobacco Use Status: Never used Tobacco Tobacco use type: Cigar Years Smoked: 46 Second Hand Smoke Exposure: No Substance Use History: Use of substances other than those prescribed or required for medical reasons : No Substance Use Type: Marijuana Advance Directives: Advance Directives: No Advance Directives Information Provided: No Occupation Assessmet: service: No Current occupational status: disabled Current occupational exposures/hazards: No Home Medications and Allergies Current Medications: Current Medications Cefepime HCl 2 gm/ Sodium (Chloride) 50 mls @ 100 mls/hr IV ONCE ONE Stop: 01/24/22 12:53 Last Admin: 01/24/22 12:34 Dose: 100 mls/hr Diltiazem HCl 125 mg/ Sodium (Chloride) 125 mls @ 0 mls/hr IVCONT .Q0M [facility]; Protocol Pharmacy Consult (Consult Rx Perform Med Rec) 1 each MISCELLANE ONCE PRN PRN Reason: Consult order Home Medications Medication Instructions Recorded Confirmed Type buprenorphine 4 mg-naloxone 1 mg 1 strip sublingual DAILY 01/18/22 01/18/22 History sublingual film (Suboxone) diltiazem HCl 180 mg 180 mg PO DAILY 01/18/22 01/18/22 History capsule,extended release 24 hr, controlled (DILT-XR) docusate sodium 100 mg capsule 1 cap PO BEDTIME PRN Constipation 01/18/22 01/18/22 History folic acid 1 mg tablet 1 mg PO DAILY 01/18/22 01/18/22 History metoprolol tartrate 50 1 tab PO DAILY 01/18/22 01/18/22 History mg-hydrochlorothiazide 25 mg tablet milnacipran 50 mg tablet (Savella) 50 mg PO BID 01/18/22 01/18/22 History omeprazole 20 mg capsule,delayed 20 mg PO DAILY@0630 01/18/22 01/18/22 History release paroxetine HCl 20 mg tablet 60 mg PO DAILY 01/18/22 01/18/22 History umeclidinium 62.5 mcg-vilanterol 1 puff inhalation DAILY 01/18/22 01/18/22 History 25 mcg/actuation powdr for inhalation (Anoro Ellipta) Allergies Allergy/AdvReac Type Severity Reaction Status Date / Time lisinopril [LISINOPRIL] Allergy Severe SWELLING- Verified 01/15/22 12:39 ANGIOEDEMA codeine [CODEINE] Allergy Intermediate VOMITING/HIVES, Verified 01/15/22 12:39 vomiting, hives Physical Exam Vital signs: Vital Signs Temp 98.3 F 01/24/22 10:34 Pulse 124 H 01/24/22 11:32 Resp 23 H 01/24/22 11:32 BP 122/80 01/24/22 11:32 Pulse Ox 99 01/24/22 11:32 O2 Del Method 01/24/22 11:32 O2 Flow Rate 99 01/24/22 10:06 Intake & Output 01/23/22 01/24/22 01/24/22 18:59 06:59 18:59 Other: Weight 96.7 kg Weight 96.7 kg - Constitutional Present: mild distress - Routine HEENT Exam Head: Present: atraumatic Eye: Present: normal appearance ENT: Present: mucous membranes moist - Routine Neck Exam Present: supple - Routine Respiratory Exam Present: decreased breath sounds - Routine Cardiovascular Exam Cardiovascular: Present: RRR - Routine Skin Exam Present: intact - Routine Neurological Exam Present: alert, oriented X3 Hem/Onc Consult Result - Labs CBC & Chem 7: 01/24/22 10:30 01/24/22 10:30 Labs: Short CBC 01/24/22 Range/Units 10:30 WBC 0.3 L* (4.8-10.8) X10*3/uL Hgb 7.8 L (12.0-16.0) g/dl Hct 22.3 L (37.0-47.0) % Plt Count 7 L* D (160-400) X10*3/uL BMP 01/24/22 10:30 Sodium 138 Potassium 3.3 Chloride 94 L Carbon Dioxide 27 BUN 40 H Creatinine 1.25 Calcium 8.0 L Liver Function 01/24/22 Range/Units 10:30 Total Bilirubin 1.8 H (0.0-1.0) mg/dL Direct Bilirubin 0.8 H (0.0-0.5) mg/dL AST 10 D (5-31) U/L ALT 24 (0-31) U/L Alkaline Phosphatase 60 D (39-117) U/L Albumin 3.8 (3.5-5.0) g/dL Assessment and Plan Patient Active problem list reviewed?: Yes (1) Pancytopenia Status: Acute Assessment and plan: She does not appear septic. She will need filgrastim 300 mcg daily until the wbc is 1000, and two unit of rbc's and a unit of platelets. I will follow. Please follow closely for sepsis. Recommend neutropenic precautions. - Time Spent With Patient Time Spent with Patient (in minutes): 30
[2022-01-24] MEDS: iohexoL 350 MG/ML 100 ML INFUS..BTL IV (12:48)
[2022-01-24] MEDS: dilTIAZem HCL 125 MG in 0.9 % Sodium Chloride 100 ML 10 MG IVCONT (12:55)
[2022-01-24] MEDS: Benzonatate 100 MG CAPSULE 200 MG PO (13:06)
--- NOTE | 2022-01-24 13:52 | PHA.MEDREC ---
Pharmacy Consult ? Medication Reconciliation Pharmacy has completed the medication reconciliation. Reviewed med rec done by Amelia
[2022-01-24 13:57] LABS: Appearance Urine Clear; Color Urine Yellow; Glucose Urine UA Negative (Negative); Leukocyte Esterase Urine Negative (Negative); Nitrite Urine Negative (Negative); PH 6.5 (5.0-9.0); Specific Gravity - Urine >= 1.030 (1.005-1.025); UMIC TRIGGER UACC YES; Urine Blood Negative (Negative); Urine Ketones Negative (Negative); Urine Protein 100 (2+) mg/dL (Neg-Trace)
[2022-01-24 14:00] LABS: Bacteria Urine 1+ (None Seen); Hyaline Casts Urine 0-2 /LPF (0-2); RBC Urine 0-2 /HPF (0-2); WBC Urine 0-5 /HPF (0-5)
[2022-01-24 14:13] LABS: Troponin-I High Sensitivity 80.4 ng/L (<3.5-17.0)
[2022-01-24 14:14] LABS: ~Lactic Acid-LAB USE ONLY 2.1 mmol/L (0.5-2.0)
--- NOTE | 2022-01-24 14:43 | PM.IMHP ---
History of Present Illness Date of Service: 01/24/22 Chief Complaint: odynophagia 61F with pmh NSCLC on chemotherapy, breast cancer, depression, HCV, HTN, COPD, opiate dependence presented with sob. patient [place] [facility] [place] after admisison for acute on chronic diastolic chf. since discharge patient complaining of worsening odynophagia and inability to swallow. she reports increased weakness and sob. denies fever, chest pain, palpitations. in ED noted to have worsening pancytopenia with wbc 0.3, hgb 7.8, platelet 7. no obvious bleeding. noted to be in afib with rvr, no known history of afib. Review of Systems Review of Systems: Constitutional: Denies fever, denies Chills Eyes: denies blurry vision ENT: sore throat CVS: denies chest pain Respiratory: Denies dyspnea GI: no abdominal pain : denies dysuria MSK: denies neck pain Skin: denies rash Neuro: denies specific motor weakness Psych: denies suicidal ideation Endocrine: denies heat/cold intolerance Hematologic: easy bleeding Allergy: denies hives PMFSH Medical History Bilateral lung cancer Cancer of upper lobe of left lung (~2020) Cancer of upper lobe of right lung (~2019) COPD (chronic obstructive pulmonary disease) Depression GERD (gastroesophageal reflux disease) History of breast cancer (~2006) History of hepatitis C HTN (hypertension) Internal and external bleeding hemorrhoids Obesity Pulmonary nodules Smoker Tubular adenoma of colon Family History Mother History of lung cancer Brother History of lung cancer Maternal Grandmother Breast cancer in female Maternal Aunt Breast cancer in female Daughter Thyroid cancer Surgical History History of anterior colporrhaphy (~2016) History of back surgery (~2011) History of colonoscopy (~2014) History of hemorrhoidectomy (~2019) History of lobectomy of lung (~2019) History of lumpectomy of right breast (~2006) History of lung surgery (~2020) History of tubal ligation Social History Household Members: None Housing: Apartment Are you a primary chiropractic care to a significant other at home: No Do you presently have visiting nurse or other home services: No Alcohol intake: never Patient Tobacco Use Status: Never used Tobacco Tobacco use type: Cigar Years Smoked: 46 Second Hand Smoke Exposure: No Use of substances other than those prescribed or required for medical reasons: No Substance Use Type: Marijuana Advance Directives: No Advance Directives Information Provided: No service: No Current occupational status: disabled Current occupational exposures/hazards: No Meds Allergies Allergy/AdvReac Type Severity Reaction Status Date / Time lisinopril [LISINOPRIL] Allergy Severe SWELLING- Verified 01/15/22 12:39 ANGIOEDEMA codeine [CODEINE] Allergy Intermediate VOMITING/HIVES, Verified 01/15/22 12:39 vomiting, hives Active Medications: Current Medications Buprenorphine/Naloxone (Buprenorphine/Naloxone 4/1 Mg Film) film SUBLINGUAL DAILY [facility] Diltiazem HCl (Diltiazem Hcl Cd 180 Mg Cap.Er.24h) 180 mg PO DAILY [facility]; Protocol Docusate Sodium (Docusate Sodium 100 Mg Capsule) 100 mg PO BEDTIME PRN PRN Reason: Constipation Folic Acid (Folic Acid 1 Mg Tablet) 1 mg PO DAILY [facility] Diltiazem HCl 125 mg/ Sodium (Chloride) 125 mls @ 0 mls/hr IVCONT .Q0M [facility]; Protocol Last Admin: 01/24/22 12:55 Dose: 10 mg/hr, 10 mls/hr Lidocaine/Diphenhydr/Alum/Mg/Simeth (Mag&Al/Sim/Diphenhyd/Lidocaine 10 Ml Oral.Susp) 10 ml PO Q4H PRN; Protocol PRN Reason: sore throat Magnesium Oxide (Magnesium Oxide 400 Mg Tablet) [facility] Med[facility] (Metoprolol Ta-Hydrochlorothiaz) 1 tab PO DAILY [facility] Non-Formulary Medication (Milnacipran [Savella]) 50 mg PO BID [facility] Nystatin (Nystatin Oral Susp 500,000 Unit/5 Ml Oral.Susp) 200,000 unit PO QID [facility]; Protocol Omeprazole (Omeprazole 20 Mg Capsule.Dr) 20 mg PO DAILY@0630 [facility] Paroxetine HCl (Paroxetine Hcl 30 Mg Tablet) 60 mg PO DAILY [facility] Pharmacy Consult (Consult Rx Perform Med Rec) 1 each MISCELLANE ONCE PRN PRN Reason: Consult order Prednisone (Prednisone 20 Mg Tablet) 40 mg PO DAILY [facility] Tbo-Filgrastim (Tbo-Filgrastim 480 Mcg/0.8 Ml Syringe) 480 mcg SUBCUT ONCE ONE Stop: 01/24/22 14:28 Home Medications Medication Instructions Recorded Confirmed Last Taken Type buprenorphine 4 mg-naloxone 1 mg 1 strip sublingual DAILY 01/18/22 01/24/22 01/21/22 History sublingual film (Suboxone) diltiazem HCl 180 mg 180 mg PO DAILY 01/18/22 01/24/22 01/21/22 History capsule,extended release 24 hr, controlled (DILT-XR) docusate sodium 100 mg capsule 1 cap PO BEDTIME PRN Constipation 01/18/22 01/24/22 Unknown History folic acid 1 mg tablet 1 mg PO DAILY 01/18/22 01/24/22 01/21/22 History metoprolol tartrate 50 1 tab PO DAILY 01/18/22 01/24/22 01/21/22 History mg-hydrochlorothiazide 25 mg tablet milnacipran 50 mg tablet (Savella) 50 mg PO BID 01/18/22 01/24/22 01/21/22 History omeprazole 20 mg capsule,delayed 20 mg PO DAILY@0630 01/18/22 01/24/22 01/21/22 History release paroxetine HCl 20 mg tablet 60 mg PO DAILY 01/18/22 01/24/22 01/21/22 History umeclidinium 62.5 mcg-vilanterol 1 puff inhalation DAILY 01/18/22 01/24/22 01/21/22 History 25 mcg/actuation powdr for inhalation (Anoro Ellipta) Physical Exam Vital Signs and Narrative: Vital Signs: Last Vital Signs Temp 98.3 F 01/24/22 13:32 Pulse 113 H 01/24/22 13:35 Resp 22 H 01/24/22 13:35 BP 130/87 01/24/22 13:35 Pulse Ox 98 01/24/22 12:51 O2 Del Method 01/24/22 12:51 O2 Flow Rate 99 01/24/22 10:06 BMI result Body Mass Index 33.3 General: no acute distress HEENT: atraumatic Neck: normal to visual inspection CVS: S1, S2, RRR Resp: CTA bilateral Chest: non tender GI: soft, non tender, non distended : no CVA tenderness Skin: no rashes Extremities: no edema Neuro: Oriented X3, grossly intact Psych: cooperative Results Labs CBC and Chem 7: 01/24/22 10:30 01/24/22 10:30 Labs: Laboratory Results - last 24 hr 01/24/22 01/24/22 01/24/22 10:30 10:30 10:30 MCV 82.9 MCH 29.0 MCHC 35.0 RDW 16.1 H Plt Count 7 L* D MPV Not Reportable Immature Gran % (Auto) Cancelled Neut % (Auto) Cancelled Lymph % (Auto) Cancelled [place] % (Auto) Cancelled Eos % (Auto) Cancelled Baso % (Auto) Cancelled Lymph # (Auto) Cancelled [place] # (Auto) Cancelled Eos # (Auto) Cancelled Baso # (Auto) Cancelled Abs Immat Gran (auto) Cancelled Absolute Neuts (auto) Cancelled Absolute Nucleated RBC 0.000 Nucleated RBC % (auto) 0.0 Neutrophils % (Manual) 0 L Band Neutrophils % 0 L Lymphocytes % (Manual) 94 H Atypical Lymphs % (Man) 4 Monocytes % (Manual) 2 Abs Neuts (Manual) Not Reportable Lymphocytes # (Manual) 0.3 L Platelet Estimate DECREASED Plt Morphology Comment NORMAL RBC Morphology NOTED Hypochromasia 1+ (5-14) Ovalocytes 1+ (5-14) PT 13.6 H INR 1.2 H D-Dimer High Sensitivty 412 Anion Gap 20 Estim Creat Clear Calc 56.4 Estimated GFR 44 Random Glucose 185 H Lactic Acid Lactic Acid F/U @ 2Hr Calcium 8.0 L Magnesium 1.5 L Total Bilirubin 1.8 H Direct Bilirubin 0.8 H AST 10 D ALT 24 Alkaline Phosphatase 60 D Troponin I High Sens B-Natriuretic Peptide Total Protein 6.8 Albumin 3.8 Urine Color Urine Appearance Urine pH Ur Specific [place] Urine Protein Urine Glucose (UA) Urine Ketones Urine Blood Urine Nitrite Ur Leukocyte Esterase Urine RBC Urine WBC Ur Squamous Epith Cells Urine Bacteria Hyaline Casts COVID-19 ([facility]INKA) COVID-19 Clin Com Influenza Type A (ABRAM) Influenza Type B (ABRAM) Influenza A & B Note Blood Type Antibody Screen Crossmatch 01/24/22 01/24/22 01/24/22 10:30 10:30 10:30 MCV MCH MCHC RDW Plt Count MPV Immature Gran % (Auto) Neut % (Auto) Lymph % (Auto) [place] % (Auto) Eos % (Auto) Baso % (Auto) Lymph # (Auto) [place] # (Auto) Eos # (Auto) Baso # (Auto) Abs Immat Gran (auto) Absolute Neuts (auto) Absolute Nucleated RBC Nucleated RBC % (auto) Neutrophils % (Manual) Band Neutrophils % Lymphocytes % (Manual) Atypical Lymphs % (Man) Monocytes % (Manual) Abs Neuts (Manual) Lymphocytes # (Manual) Platelet Estimate Plt Morphology Comment RBC Morphology Hypochromasia Ovalocytes PT INR D-Dimer High Sensitivty Anion Gap Estim Creat Clear Calc Estimated GFR Random Glucose Lactic Acid 2.5 H* Lactic Acid F/U @ 2Hr Calcium Magnesium Total Bilirubin Direct Bilirubin AST ALT Alkaline Phosphatase Troponin I High Sens 83.1 H* B-Natriuretic Peptide 361 H Total Protein Albumin Urine Color Urine Appearance Urine pH Ur Specific [place] Urine Protein Urine Glucose (UA) Urine Ketones Urine Blood Urine Nitrite Ur Leukocyte Esterase Urine RBC Urine WBC Ur Squamous Epith Cells Urine Bacteria Hyaline Casts COVID-19 ([facility]INKA) COVID-19 Clin Com Influenza Type A (ABRAM) Negative Influenza Type B (ABRAM) Negative Influenza A & B Note See Note Blood Type Antibody Screen Crossmatch 01/24/22 01/24/22 01/24/22 10:30 11:54 13:37 MCV MCH MCHC RDW Plt Count MPV Immature Gran % (Auto) Neut % (Auto) Lymph % (Auto) [place] % (Auto) Eos % (Auto) Baso % (Auto) Lymph # (Auto) [place] # (Auto) Eos # (Auto) Baso # (Auto) Abs Immat Gran (auto) Absolute Neuts (auto) Absolute Nucleated RBC Nucleated RBC % (auto) Neutrophils % (Manual) Band Neutrophils % Lymphocytes % (Manual) Atypical Lymphs % (Man) Monocytes % (Manual) Abs Neuts (Manual) Lymphocytes # (Manual) Platelet Estimate Plt Morphology Comment RBC Morphology Hypochromasia Ovalocytes PT INR D-Dimer High Sensitivty Anion Gap Estim Creat Clear Calc Estimated GFR Random Glucose Lactic Acid Lactic Acid F/U @ 2Hr Calcium Magnesium Total Bilirubin Direct Bilirubin AST ALT Alkaline Phosphatase Troponin I High Sens 80.4 H* B-Natriuretic Peptide Total Protein Albumin Urine Color Urine Appearance Urine pH Ur Specific [place] Urine Protein Urine Glucose (UA) Urine Ketones Urine Blood Urine Nitrite Ur Leukocyte Esterase Urine RBC Urine WBC Ur Squamous Epith Cells Urine Bacteria Hyaline Casts COVID-19 (OLAYINKA) Negative COVID-19 Clin Com See Note Influenza Type A (ABRAM) Influenza Type B (ABRAM) Influenza A & B Note Blood Type A Positive Antibody Screen NEGATIVE Crossmatch See Detail 01/24/22 01/24/22 13:37 13:49 MCV MCH MCHC RDW Plt Count MPV Immature Gran % (Auto) Neut % (Auto) Lymph % (Auto) [place] % (Auto) Eos % (Auto) Baso % (Auto) Lymph # (Auto) [place] # (Auto) Eos # (Auto) Baso # (Auto) Abs Immat Gran (auto) Absolute Neuts (auto) Absolute Nucleated RBC Nucleated RBC % (auto) Neutrophils % (Manual) Band Neutrophils % Lymphocytes % (Manual) Atypical Lymphs % (Man) Monocytes % (Manual) Abs Neuts (Manual) Lymphocytes # (Manual) Platelet Estimate Plt Morphology Comment RBC Morphology Hypochromasia Ovalocytes PT INR D-Dimer High Sensitivty Anion Gap Estim Creat Clear Calc Estimated GFR Random Glucose Lactic Acid Lactic Acid F/U @ 2Hr 2.1 H* Calcium Magnesium Total Bilirubin Direct Bilirubin AST ALT Alkaline Phosphatase Troponin I High Sens B-Natriuretic Peptide Total Protein Albumin Urine Color Yellow Urine Appearance Clear Urine pH 6.5 Ur Specific [place] >= 1.030 H Urine Protein 100 (2+) H Urine Glucose (UA) Negative Urine Ketones Negative Urine Blood Negative Urine Nitrite Negative Ur Leukocyte Esterase Negative Urine RBC 0-2 Urine WBC 0-5 Ur Squamous Epith Cells 11-20 Urine Bacteria 1+ Hyaline Casts 0-2 COVID-19 ([facility]INKA) COVID-19 Clin Com Influenza Type A (ABRAM) Influenza Type B (ABRAM) Influenza A & B Note Blood Type Antibody Screen Crossmatch Imaging Radiologist's Impressions: Impressions Chest X-Ray 01/24/22 11:02 IMPRESSION: Surgical changes right parahilar region left midlung. There are increased bilateral interstitial markings likely chronic changes. No acute consolidation. Chest CTA 01/24/22 12:46 IMPRESSION: No pulmonary embolism. Post surgical changes of right upper lobectomy and left upper lobe wedge resection with similar surrounding groundglass pulmonary nodules within compared to prior. Resolution of trace left pleural effusion with stable small right pleural effusion. Similar sclerotic osseous lesions raising the suspicion for osseous metastases and stable thoracic wedge compression deformities. VTE: negative Assessment and Plan (1) Pancytopenia: Status: Acute Plan 61F with pmh NSCLC on chemotherapy, breast cancer, depression, HCV, HTN, COPD, opiate dependence presented with sob and odynophagia found to have worsening pancytopenia and new onset afib with rvr new onset afib with rvr cardizem infusion no AC due to thrombocytopenia tele lopressor, cardizem po pacnytopenia due to chemotherapy in pateint with NSCLC tbo-filgastrim 300 daily oncolog following 1 unit plt 2 unit prbc monitor cbc follow up cultures, hold off on abx for now oral thrush nystatin, magic mouthwash COPD bronchodilators as needed depression paxil full code patient with afib with rvr requiring continuous infusion of cardizem, as well as pancytopneia requiring transfusions with close monitoring due to risk factors of NSCLC, copd. Quality Stroke Does the patient have a stroke diagnosis?: No VTE Prior VTE?: No VTE Risk Level:: Medical - low VTE Device Contraindication: Treatment Not Indicated VTE Drug Contraindication: Treatment Not Indicated
[2022-01-24 15:41] LABS: Reflex Lactate? 2 Y
--- NOTE | 2022-01-24 15:56 | PC.NURSE ---
Per Dr. Arana titrate up on dilt drip.
[2022-01-24 16:32] LABS: ~Lactic Acid-LAB USE ONLY 1.8 mmol/L (0.5-2.0)
[2022-01-24] MEDS: Tbo-Filgrastim 300 MCG/0.5 ML SYRINGE SUBCUT (16:38)
[2022-01-24] MEDS: Nystatin Oral Susp 500,000 UNIT/5 ML ORAL.SUSP 200000 UNIT PO ×2 (16:38→20:58)
[2022-01-24] MEDS: Magnesium Oxide 400 MG TABLET PO (16:38)
--- NOTE | 2022-01-24 16:59 | PC.NURSE ---
PUREWICK PLACED BY THIS PCT .
--- NOTE | 2022-01-24 17:43 | PC.NURSE ---
Dr. Arana aware of patients fluctuating respiratory rate
[2022-01-24] MEDS: Acetaminophen 325 MG TABLET 650 MG PO (18:36)
[2022-01-24] MEDS: dilTIAZem HCL 125 MG in 0.9 % Sodium Chloride 100 ML 15 MG IVCONT (19:24)
--- NOTE | 2022-01-24 19:26 | PC.NURSE ---
Care of patient assumed at 1900. Patient found seated in stretcher eating dinner. She is alert,oriented x4, and endorses throat pain. Blood is infusing (though patient's arm needed to be straightened out to continue dripping in). Dilt drip infusing at 15mg hour with HR AFIB 90s-120s. New bag of dilt hung, as previous was nearly dry. Call moya is within reach.
--- NOTE | 2022-01-24 19:47 | PC.NURSE ---
report given to Yoko Reed RN. patient to travel on tele with this RN.
[2022-01-24] MEDS: Mag&Al/Sim/Diphenhyd/Lidocaine 10 ML ORAL.SUSP PO (20:58)
[2022-01-24] MEDS: 0.9 % Sodium Chloride Flush 3 ML SYRINGE IVFLUSH (21:00)
[2022-01-24] MEDS: traMADoL HCL 50 MG TABLET PO (23:25)
[2022-01-25] MEDS: Mag&Al/Sim/Diphenhyd/Lidocaine 10 ML ORAL.SUSP PO ×5 (01:13→21:22)
[2022-01-25] MEDS: dilTIAZem HCL 125 MG in 0.9 % Sodium Chloride 100 ML 10 MG IVCONT (01:29)
[2022-01-25 03:29] VITALS: BP 113/62; PULSE 94; RESP 20; TEMP 36.8; O2SAT 94
[2022-01-25] MEDS: Omeprazole 20 MG CAPSULE.DR PO (06:08)
[2022-01-25 07:31] LABS: Hemoglobin 8.4 g/dl (12.0-16.0); Mean Corpuscular Hemoglobin 29.2 pg (27.0-33.0); Mean Corpuscular Volume 83.3 fL (80.0-98.0); Mean Platelet Volume 11.4 fL (9.4-12.3); Red Blood Count 2.88 X10*6/uL (4.20-5.50); Red Cell Distribution Width 15.3 % (11.0-16.0)
[2022-01-25 07:33] LABS: WBC ABN SCTR FOR CBC 1
[2022-01-25 07:34] VITALS: BP 130/80; PULSE 110
[2022-01-25] MEDS: Nystatin Oral Susp 500,000 UNIT/5 ML ORAL.SUSP 200000 UNIT PO ×4 (07:34→21:21)
[2022-01-25] MEDS: PARoxetine HCL 30 MG TABLET 60 MG PO (07:34)
[2022-01-25] MEDS: predniSONE 20 MG TABLET 40 MG PO (07:35)
[2022-01-25] MEDS: hydroCHLOROthiazide 25 MG TABLET PO (07:35)
[2022-01-25] MEDS: dilTIAZem HCL CD 180 MG CAP.ER.24H PO (07:35)
[2022-01-25] MEDS: Folic Acid 1 MG TABLET PO (07:35)
[2022-01-25] MEDS: Magnesium Oxide 400 MG TABLET PO ×2 (07:35→16:10)
[2022-01-25] MEDS: Buprenorphine/Naloxone 4/1 mg FILM 1 FILM SUBLINGUAL (07:35)
[2022-01-25] MEDS: 0.9 % Sodium Chloride Flush 3 ML SYRINGE IVFLUSH ×3 (07:36→21:25)
[2022-01-25] MEDS: Metoprolol Tartrate 50 MG TABLET PO (07:36)
[2022-01-25 07:45] LABS: Platelet Count 15 X10*3/uL (160-400); White Blood Count 0.2 X10*3/uL (4.8-10.8)
[2022-01-25 07:52] VITALS: PULSE 97; RESP 20; TEMP 36.6; O2SAT 96
[2022-01-25 07:53] LABS: Glucose, Whole Blood 166 mg/dL (60-115)
[2022-01-25 08:45] LABS: Alanine Aminotransferase 16 U/L (0-31); Albumin Level 3.3 g/dL (3.5-5.0); Alkaline Phosphatase 53 U/L (39-117); Anion Gap 19 (12-20); Aspartate Amino Transferase 9 U/L (5-31); Bilirubin Direct 1.5 mg/dL (0.0-0.5); Bilirubin Total 2.8 mg/dL (0.0-1.0); Blood Urea Nitrogen 32 mg/dL (9-16); Calcium 7.4 mg/dL (8.4-10.2); Carbon Dioxide 24 mmol/L (22-29); Chloride 98 mmol/L (96-108); Creatinine Clr Calc Pharmacy 67.9; Estimated Glomerular Filt Rate 56; Glucose Fasting 177 mg/dL (60-99); Magnesium 1.4 mg/dL (1.6-2.6); Potassium 2.7 mmol/L (3.3-5.1); Sodium 138 mmol/L (135-145); Total Protein 6.1 g/dL (6.5-8.0)
[2022-01-25] MEDS: Tbo-Filgrastim 300 MCG/0.5 ML SYRINGE SUBCUT (09:39)
[2022-01-25] MEDS: Magnesium Sulfate/H2O 2 GM/50 ML PIGGYBACK IV (09:39)
--- NOTE | 2022-01-25 09:52 | MHC.CM.PN ---
CM MET WITH PT. LIVES IN AN APARTMENT WITH BOYFRIEND. HAS NO SERVICES CURRENTLY. USES A CANE NEEDED. AGREEABLE TO DO A HCP WHILE INPATIENT. COVID VAX X2. PCP DR. RIVERA AT [facility]. PT IS OPEN TO [facility] REFERRAL SHOULD SHE NEED ON DC. REFERRAL PLACED TO [facility] PER REQUEST OF PT. DP: DAUGHTER WILL TRANSPORT HOME ON DC. CM WILL FOLLLW FOR DC NEEDS.
--- NOTE | 2022-01-25 10:19 | P.PNIM_ITS ---
Subjective Subjective Date of Service: 01/25/22 Interval History: cc: odynophagia interval history:mild improvement Cardiovascular Cardiovascular: Reports no additional cardiovascular complaints Respiratory Respiratory: Reports no additional respiratory complaints Physical Exam Vital Signs: Vital Signs: Last Vital Signs Temp 97.8 F 01/25/22 07:52 Pulse 97 01/25/22 07:52 Resp 20 01/25/22 07:52 BP 130/80 01/25/22 07:34 Pulse Ox 96 01/25/22 07:52 O2 Del Method 01/25/22 07:52 O2 Flow Rate 99 01/24/22 10:06 BMI result Body Mass Index 31.6 General: AO X 3, no acute distress Resp: CTA bilateral, no accessory muscles used CVS: S1,S2,RRR GI: soft, non tender, non distended Neuro: motor grossly intact, alert Psych: appropriate affect, appropriate insight Objective Data Active Medications Acetaminophen (Acetaminophen 325 Mg Tablet) 650 mg PO Q6H PRN PRN Reason: Pain, Mild (Pain Scale 1-3) Last Admin: 01/24/22 18:36 Dose: 650 mg Documented By: PATSY Buprenorphine/Naloxone (Buprenorphine/Naloxone 4/1 Mg Film) 1 film SUBLINGUAL DAILY [facility] Last Admin: 01/25/22 07:35 Dose: 1 film Documented By: TORITO Diltiazem HCl (Diltiazem Hcl Cd 180 Mg Cap.Er.24h) 180 mg PO DAILY [facility]; Protocol Last Admin: 01/25/22 07:35 Dose: 180 mg Documented By: TORITO Docusate Sodium (Docusate Sodium 100 Mg Capsule) 100 mg PO BEDTIME PRN PRN Reason: Constipation Folic Acid (Folic Acid 1 Mg Tablet) 1 mg PO DAILY [facility] Last Admin: 01/25/22 07:35 Dose: 1 mg Documented By: TORITO Hydrochlorothiazide (Hydrochlorothiazide 25 Mg Tablet) 25 mg PO DAILY [facility] Last Admin: 01/25/22 07:35 Dose: 25 mg Documented By: TORITO Diltiazem HCl 125 mg/ Sodium (Chloride) 125 mls @ 0 mls/hr IVCONT .Q0M [facility]; Protocol Last Titration: 01/25/22 09:09 Dose: 0 mg/hr, 0 mls/hr Documented By: TORITO Magnesium Sulfate (Magnesium Sulfate/H2o) 2 gm in 50 mls @ 25 mls/hr IV ONCE ONE Stop: 01/25/22 10:40 Last Admin: 01/25/22 09:39 Dose: 25 mls/hr Documented By: TORITO Lidocaine/Diphenhydr/Alum/Mg/Simeth (Mag&Al/Sim/Diphenhyd/Lidocaine 10 Ml Oral.Susp) 10 ml PO Q4H PRN; Protocol PRN Reason: sore throat Last Admin: 01/25/22 09:50 Dose: 10 ml Documented By: TORITO Magnesium Oxide (Magnesium Oxide 400 Mg Tablet) 400 mg PO BIDPC [facility] Last Admin: 01/25/22 07:35 Dose: 400 mg Documented By: TORITO Metoprolol Tartrate (Metoprolol Tartrate 50 Mg Tablet) 50 mg PO DAILY [facility] Last Admin: 01/25/22 07:36 Dose: 50 mg Documented By: TORITO Non-Formulary Medication (Milnacipran [Savella]) 50 mg PO BID [facility] Nystatin (Nystatin Oral Susp 500,000 Unit/5 Ml Oral.Susp) 200,000 unit PO QID [facility]; Protocol Last Admin: 01/25/22 07:34 Dose: 200,000 unit Documented By: TORITO Omeprazole (Omeprazole 20 Mg Capsule.Dr) 20 mg PO DAILY@0630 [facility] Last Admin: 01/25/22 06:08 Dose: 20 mg Documented By: LENY Paroxetine HCl (Paroxetine Hcl 30 Mg Tablet) 60 mg PO DAILY [facility] Last Admin: 01/25/22 07:34 Dose: 60 mg Documented By: TORITO Pharmacy Consult (Consult Rx Perform Med Rec) 1 each MISCELLANE ONCE PRN PRN Reason: Consult order Prednisone (Prednisone 20 Mg Tablet) 40 mg PO DAILY [facility] Last Admin: 01/25/22 07:35 Dose: 40 mg Documented By: TORITO Sodium Chloride (0.9 % Sodium Chloride Flush 3 Ml Syringe) 3 ml IVFLUSH QSHIFT [facility] Last Admin: 01/25/22 07:36 Dose: 3 ml Documented By: TORITO Labs CBC & Chem 7: 01/25/22 06:51 01/25/22 06:51 Labs: Laboratory Results - last 24 hr 01/24/22 01/24/22 01/24/22 10:30 10:30 10:30 MCV 82.9 MCH 29.0 MCHC 35.0 RDW 16.1 H Plt Count 7 L* D MPV Not Reportable Immature Gran % (Auto) Cancelled Neut % (Auto) Cancelled Lymph % (Auto) Cancelled [place] % (Auto) Cancelled Eos % (Auto) Cancelled Baso % (Auto) Cancelled Lymph # (Auto) Cancelled [place] # (Auto) Cancelled Eos # (Auto) Cancelled Baso # (Auto) Cancelled Abs Immat Gran (auto) Cancelled Absolute Neuts (auto) Cancelled Absolute Nucleated RBC 0.000 Nucleated RBC % (auto) 0.0 Neutrophils % (Manual) 0 L Band Neutrophils % 0 L Lymphocytes % (Manual) 94 H Atypical Lymphs % (Man) 4 Monocytes % (Manual) 2 Abs Neuts (Manual) Not Reportable Lymphocytes # (Manual) 0.3 L Platelet Estimate DECREASED Plt Morphology Comment NORMAL RBC Morphology NOTED Hypochromasia 1+ (5-14) Ovalocytes 1+ (5-14) PT 13.6 H INR 1.2 H D-Dimer High Sensitivty 412 Anion Gap 20 Estim Creat Clear Calc 56.4 Estimated GFR 44 POC Glucose Random Glucose 185 H Fasting Glucose Lactic Acid Lactic Acid F/U @ 2Hr Lactic Acid F/U @ 4Hr Calcium 8.0 L Magnesium 1.5 L Total Bilirubin 1.8 H Direct Bilirubin 0.8 H AST 10 D ALT 24 Alkaline Phosphatase 60 D Troponin I High Sens B-Natriuretic Peptide Total Protein 6.8 Albumin 3.8 Urine Color Urine Appearance Urine pH Ur Specific [place] Urine Protein Urine Glucose (UA) Urine Ketones Urine Blood Urine Nitrite Ur Leukocyte Esterase Urine RBC Urine WBC Ur Squamous Epith Cells Urine Bacteria Hyaline Casts COVID-19 (OLAYINKA) COVID-19 Clin Com Influenza Type A (ABRAM) Influenza Type B (ABRAM) Influenza A & B Note Blood Type Antibody Screen Crossmatch 01/24/22 01/24/22 01/24/22 10:30 10:30 10:30 MCV MCH MCHC RDW Plt Count MPV Immature Gran % (Auto) Neut % (Auto) Lymph % (Auto) [place] % (Auto) Eos % (Auto) Baso % (Auto) Lymph # (Auto) [place] # (Auto) Eos # (Auto) Baso # (Auto) Abs Immat Gran (auto) Absolute Neuts (auto) Absolute Nucleated RBC Nucleated RBC % (auto) Neutrophils % (Manual) Band Neutrophils % Lymphocytes % (Manual) Atypical Lymphs % (Man) Monocytes % (Manual) Abs Neuts (Manual) Lymphocytes # (Manual) Platelet Estimate Plt Morphology Comment RBC Morphology Hypochromasia Ovalocytes PT INR D-Dimer High Sensitivty Anion Gap Estim Creat Clear Calc Estimated GFR POC Glucose Random Glucose Fasting Glucose Lactic Acid 2.5 H* Lactic Acid F/U @ 2Hr Lactic Acid F/U @ 4Hr Calcium Magnesium Total Bilirubin Direct Bilirubin AST ALT Alkaline Phosphatase Troponin I High Sens 83.1 H* B-Natriuretic Peptide 361 H Total Protein Albumin Urine Color Urine Appearance Urine pH Ur Specific [place] Urine Protein Urine Glucose (UA) Urine Ketones Urine Blood Urine Nitrite Ur Leukocyte Esterase Urine RBC Urine WBC Ur Squamous Epith Cells Urine Bacteria Hyaline Casts COVID-19 (OLAYINKA) COVID-19 Clin Com Influenza Type A (ABRAM) Negative Influenza Type B (ABRAM) Negative Influenza A & B Note See Note Blood Type Antibody Screen Crossmatch 01/24/22 01/24/22 01/24/22 10:30 11:54 13:37 MCV MCH MCHC RDW Plt Count MPV Immature Gran % (Auto) Neut % (Auto) Lymph % (Auto) [place] % (Auto) Eos % (Auto) Baso % (Auto) Lymph # (Auto) [place] # (Auto) Eos # (Auto) Baso # (Auto) Abs Immat Gran (auto) Absolute Neuts (auto) Absolute Nucleated RBC Nucleated RBC % (auto) Neutrophils % (Manual) Band Neutrophils % Lymphocytes % (Manual) Atypical Lymphs % (Man) Monocytes % (Manual) Abs Neuts (Manual) Lymphocytes # (Manual) Platelet Estimate Plt Morphology Comment RBC Morphology Hypochromasia Ovalocytes PT INR D-Dimer High Sensitivty Anion Gap Estim Creat Clear Calc Estimated GFR POC Glucose Random Glucose Fasting Glucose Lactic Acid Lactic Acid F/U @ 2Hr Lactic Acid F/U @ 4Hr Calcium Magnesium Total Bilirubin Direct Bilirubin AST ALT Alkaline Phosphatase Troponin I High Sens 80.4 H* B-Natriuretic Peptide Total Protein Albumin Urine Color Urine Appearance Urine pH Ur Specific [place] Urine Protein Urine Glucose (UA) Urine Ketones Urine Blood Urine Nitrite Ur Leukocyte Esterase Urine RBC Urine WBC Ur Squamous Epith Cells Urine Bacteria Hyaline Casts COVID-19 (OLAYINKA) Negative COVID-19 Clin Com See Note Influenza Type A (ABRAM) Influenza Type B (ABRAM) Influenza A & B Note Blood Type A Positive Antibody Screen NEGATIVE Crossmatch See Detail 01/24/22 01/24/22 01/24/22 13:37 13:49 16:12 MCV MCH MCHC RDW Plt Count MPV Immature Gran % (Auto) Neut % (Auto) Lymph % (Auto) [place] % (Auto) Eos % (Auto) Baso % (Auto) Lymph # (Auto) [place] # (Auto) Eos # (Auto) Baso # (Auto) Abs Immat Gran (auto) Absolute Neuts (auto) Absolute Nucleated RBC Nucleated RBC % (auto) Neutrophils % (Manual) Band Neutrophils % Lymphocytes % (Manual) Atypical Lymphs % (Man) Monocytes % (Manual) Abs Neuts (Manual) Lymphocytes # (Manual) Platelet Estimate Plt Morphology Comment RBC Morphology Hypochromasia Ovalocytes PT INR D-Dimer High Sensitivty Anion Gap Estim Creat Clear Calc Estimated GFR POC Glucose Random Glucose Fasting Glucose Lactic Acid Lactic Acid F/U @ 2Hr 2.1 H* Lactic Acid F/U @ 4Hr 1.8 Calcium Magnesium Total Bilirubin Direct Bilirubin AST ALT Alkaline Phosphatase Troponin I High Sens B-Natriuretic Peptide Total Protein Albumin Urine Color Yellow Urine Appearance Clear Urine pH 6.5 Ur Specific [place] >= 1.030 H Urine Protein 100 (2+) H Urine Glucose (UA) Negative Urine Ketones Negative Urine Blood Negative Urine Nitrite Negative Ur Leukocyte Esterase Negative Urine RBC 0-2 Urine WBC 0-5 Ur Squamous Epith Cells 11-20 Urine Bacteria 1+ Hyaline Casts 0-2 COVID-19 (OLAYINKA) COVID-19 Clin Com Influenza Type A (ABRAM) Influenza Type B (ABRAM) Influenza A & B Note Blood Type Antibody Screen Crossmatch 01/25/22 01/25/22 01/25/22 06:51 06:51 07:47 MCV 83.3 MCH 29.2 MCHC 35.0 RDW 15.3 Plt Count 15 L* D MPV 11.4 Immature Gran % (Auto) Neut % (Auto) Lymph % (Auto) [place] % (Auto) Eos % (Auto) Baso % (Auto) Lymph # (Auto) [place] # (Auto) Eos # (Auto) Baso # (Auto) Abs Immat Gran (auto) Absolute Neuts (auto) Absolute Nucleated RBC 0.000 Nucleated RBC % (auto) 0.0 Neutrophils % (Manual) Band Neutrophils % Lymphocytes % (Manual) Atypical Lymphs % (Man) Monocytes % (Manual) Abs Neuts (Manual) Lymphocytes # (Manual) Platelet Estimate Plt Morphology Comment RBC Morphology Hypochromasia Ovalocytes PT INR D-Dimer High Sensitivty Anion Gap 19 Estim Creat Clear Calc 67.9 Estimated GFR 56 POC Glucose 166 H Random Glucose Fasting Glucose 177 H Lactic Acid Lactic Acid F/U @ 2Hr Lactic Acid F/U @ 4Hr Calcium 7.4 L D Magnesium 1.4 L* Total Bilirubin 2.8 H Direct Bilirubin 1.5 H AST 9 ALT 16 Alkaline Phosphatase 53 Troponin I High Sens B-Natriuretic Peptide Total Protein 6.1 L Albumin 3.3 L Urine Color Urine Appearance Urine pH Ur Specific [place] Urine Protein Urine Glucose (UA) Urine Ketones Urine Blood Urine Nitrite Ur Leukocyte Esterase Urine RBC Urine WBC Ur Squamous Epith Cells Urine Bacteria Hyaline Casts COVID-19 (OLAYINKA) COVID-19 Clin Com Influenza Type A (ABRAM) Influenza Type B (ABRAM) Influenza A & B Note Blood Type Antibody Screen Crossmatch Assessment and Plan (1) Pancytopenia: Status: Acute Plan 61F with pmh NSCLC on chemotherapy, breast cancer, depression, HCV, HTN, COPD, opiate dependence presented with sob and odynophagia found to have worsening pancytopenia and new onset afib with rvr new onset afib with rvr rate improved, now off cardizem drip no AC due to thrombocytopenia tele lopressor, cardizem po pacnytopenia due to chemotherapy in pateint with NSCLC tbo-filgastrim 300 daily until wbc >1000 oncology following s/p 1 unit plt, improved from 7 to 15 s/p 2 unit prbc 7.8 to 8.4 monitor cbc follow up cultures, hold off on abx for now oral thrush nystatin, magic mouthwash COPD bronchodilators as needed depression paxil full code reason for continued hospitalization:significant panctopenia requiring close monitring and transfusions Quality Stroke Does the patient have a stroke diagnosis?: No VTE Prior VTE?: No VTE Risk Level:: Medical - low VTE Device Contraindication: Treatment Not Indicated VTE Drug Contraindication: Treatment Not Indicated
[2022-01-25] MEDS: polyethylene glycoL 3350 17 GM POWD.PACK PO (10:30)
[2022-01-25 11:09] LABS: Glucose, Whole Blood 188 mg/dL (60-115)
--- NOTE | 2022-01-25 11:10 | PM.HEMONCPN ---
Medical Summary - Medical Summary Date of Service: 01/25/22 Chief complaint: pancytopenia Interval History Interval history: Elida Schumacher is a 61 year old female just discharged January 21 who received chemotherapy with pembrolizumab, carboplatin and pemetrexed 01/15/2022 and neulasta the day after. She returned to the ER yesterdaynfor dyspnea and was severely pancytopenic with wbc 0.3, HCT22, plts 7,000. She is afebrile with stable vital signs. The CTA was negative for PE. Her wbc tody is 0.2 with 15k plateletes and HCT of 24% Review of Systems - ENT Reports hoarseness - Cardiovascular Reports shortness of breath when lying down - Respiratory Reports dyspnea on exertion - Gastrointestinal Reports other - Genitourinary Reports other - Musculoskeletal Reports muscle weakness - Neurologic Reports system reviewed and no additional complaints, except as documented [facility] Medical History: Medical History (Last Reviewed 01/24/22 @ 20:47 by Lubna Carey RN) Bilateral lung cancer Cancer of upper lobe of left lung Onset Date: ~2020 Cancer of upper lobe of right lung Onset Date: ~2019 COPD (chronic obstructive pulmonary disease) Depression GERD (gastroesophageal reflux disease) History of breast cancer Onset Date: ~2006 History of hepatitis C HTN (hypertension) Internal and external bleeding hemorrhoids Obesity Pulmonary nodules Smoker Tubular adenoma of colon Family History: Family History (Last Reviewed 01/24/22 @ 14:52 by Joel Brink MD) Mother History of lung cancer Brother History of lung cancer Maternal Grandmother Breast cancer in female Maternal Aunt Breast cancer in female Daughter Thyroid cancer Surgical History: Surgical History (Last Reviewed 01/24/22 @ 20:47 by Lubna Carey RN) History of anterior colporrhaphy Onset Date: ~2016 History of back surgery Onset Date: ~2011 History of colonoscopy Onset Date: ~2014 History of hemorrhoidectomy Onset Date: ~2019 History of lobectomy of lung Onset Date: ~2019 History of lumpectomy of right breast Onset Date: ~2006 History of lung surgery Onset Date: ~2020 History of tubal ligation Social History: Social History (Last Reviewed 01/24/22 @ 14:52 by Joel Brink MD) Living Situation History: Household Members: Significant Other Housing: Apartment Are you a primary medicare nurse to a significant other at home: No Do you presently have visiting nurse or other home services: No Tobacco History: Patient Tobacco Use Status: Never used Tobacco Tobacco use type: Cigar Years Smoked: 46 Second Hand Smoke Exposure: No Substance Use History: Substance Use Type: Marijuana Occupation Assessmet: service: No Current occupational status: disabled Current occupational exposures/hazards: No Home Medications and Allergies Current Medications: Current Medications Acetaminophen (Acetaminophen 325 Mg Tablet) 650 mg PO Q6H PRN PRN Reason: Pain, Mild (Pain Scale 1-3) Last Admin: 01/24/22 18:36 Dose: 650 mg Buprenorphine/Naloxone (Buprenorphine/Naloxone 4/1 Mg Film) 1 film SUBLINGUAL DAILY [facility] Last Admin: 01/25/22 07:35 Dose: 1 film Diltiazem HCl (Diltiazem Hcl Cd 180 Mg Cap.Er.24h) 180 mg PO DAILY [facility]; Protocol Last Admin: 01/25/22 07:35 Dose: 180 mg Docusate Sodium (Docusate Sodium 100 Mg Capsule) 100 mg PO BEDTIME PRN PRN Reason: Constipation Folic Acid (Folic Acid 1 Mg Tablet) 1 mg PO DAILY [facility] Last Admin: 01/25/22 07:35 Dose: 1 mg Hydrochlorothiazide (Hydrochlorothiazide 25 Mg Tablet) 25 mg PO DAILY [facility] Last Admin: 01/25/22 07:35 Dose: 25 mg Lidocaine/Diphenhydr/Alum/Mg/Simeth (Mag&Al/Sim/Diphenhyd/Lidocaine 10 Ml Oral.Susp) 10 ml PO Q4H PRN; Protocol PRN Reason: sore throat Last Admin: 01/25/22 09:50 Dose: 10 ml Magnesium Oxide ([facility] 400 Mg Tablet) [facility] Last Admin: 01/25/22 07:35 Dose: 400 mg Metoprolol Tartrate (Metoprolol Tartrate 50 Mg Tablet) 50 mg PO DAILY [facility] Last Admin: 01/25/22 07:36 Dose: 50 mg Non-Formulary Medication (Milnacipran [Savella]) 50 mg PO BID [facility] Nystatin (Nystatin Oral Susp 500,000 Unit/5 Ml Oral.Susp) 200,000 unit PO QID [facility]; Protocol Last Admin: 01/25/22 07:34 Dose: 200,000 unit Omeprazole (Omeprazole 20 Mg Capsule.Dr) 20 mg PO DAILY@0630 [facility] Last Admin: 01/25/22 06:08 Dose: 20 mg Paroxetine HCl (Paroxetine Hcl 30 Mg Tablet) 60 mg PO DAILY [facility] Last Admin: 01/25/22 07:34 Dose: 60 mg Pharmacy Consult (Consult Rx Perform Med Rec) 1 each MISCELLANE ONCE PRN PRN Reason: Consult order Prednisone (Prednisone 20 Mg Tablet) 40 mg PO DAILY [facility] Last Admin: 01/25/22 07:35 Dose: 40 mg Sodium Chloride (0.9 % Sodium Chloride Flush 3 Ml Syringe) 3 ml IVFLUSH QSHIFT [facility] Last Admin: 01/25/22 07:36 Dose: 3 ml Home Medications Medication Instructions Recorded Confirmed Type buprenorphine 4 mg-naloxone 1 mg 1 strip sublingual DAILY 01/18/22 01/24/22 History sublingual film (Suboxone) diltiazem HCl 180 mg 180 mg PO DAILY 01/18/22 01/24/22 History capsule,extended release 24 hr, controlled (DILT-XR) docusate sodium 100 mg capsule 1 cap PO BEDTIME PRN Constipation 01/18/22 01/24/22 History folic acid 1 mg tablet 1 mg PO DAILY 01/18/22 01/24/22 History metoprolol tartrate 50 1 tab PO DAILY 01/18/22 01/24/22 History mg-hydrochlorothiazide 25 mg tablet milnacipran 50 mg tablet (Savella) 50 mg PO BID 01/18/22 01/24/22 History omeprazole 20 mg capsule,delayed 20 mg PO DAILY@0630 01/18/22 01/24/22 History release paroxetine HCl 20 mg tablet 60 mg PO DAILY 01/18/22 01/24/22 History umeclidinium 62.5 mcg-vilanterol 1 puff inhalation DAILY 01/18/22 01/24/22 History 25 mcg/actuation powdr for inhalation (Anoro Ellipta) Allergies Allergy/AdvReac Type Severity Reaction Status Date / Time lisinopril [LISINOPRIL] Allergy Severe SWELLING- Verified 01/15/22 12:39 ANGIOEDEMA codeine [CODEINE] Allergy Intermediate VOMITING/HIVES, Verified 01/15/22 12:39 vomiting, hives Exam Vital signs: Vital Signs Temp 97.8 F 01/25/22 07:52 Pulse 97 01/25/22 07:52 Resp 20 01/25/22 07:52 BP 130/80 01/25/22 07:34 Pulse Ox 96 01/25/22 07:52 O2 Del Method 01/25/22 07:52 O2 Flow Rate 99 01/24/22 10:06 Intake & Output 01/24/22 01/25/22 01/25/22 18:59 06:59 18:59 Intake Total 926.833 / 1435.499 508.666 / 1435.499 155.667 / 155.667 Output Total 550 / 550 Balance 926.833 / 885.499 -41.334 / 885.499 155.667 / 155.667 Urine Output (Average ml/kg/hr) 0.50 0.50 Intake: Intake (Blood Product) Amount 347 / 697 350 / 697 Plt Aph Pas Pathreduced(E8342) 347 / 347 Unit [id number] Red Blood Cells (E0382) Unit 0 / 0 [id number] Red Blood Cells (E0382) Unit 0 / 350 350 / 350 [id number] Intake, IV Amount 579.833 / 738.499 158.666 / 738.499 155.667 / 155.667 Lactated Ringers 500 ml @ 999 500 / 500 mls/hr IV .Q31M [facility] Rx#: [id number] Magnesium Sulfate/H2O 2 gm In 50 / 50 50 ml @ 25 mls/hr IV ONCE ONE Rx#:[id number] cefEPime HCl 2 gm In 0.9 % 50 / 50 Sodium Chloride 50 ml @ 100 mls /hr IV ONCE ONE Rx#:[id number] dilTIAZem HCL 125 mg In 0.9 % 29.833 / 188.499 158.666 / 188.499 105.667 / 105.667 Sodium Chloride 100 ml @ Per Protocol IVCONT .Q0M [facility] Rx#: [id number] Output: Output, Urine Amount 550 / 550 Other: Number of Incontinent Voids 1 Number of Unmeasured Voids 1 Urine purwick Urine Color [place] Tinged Last Bowel Movement 01/23/22 Weight 96.7 kg 91.6 kg [place] Weight in Grams 53423 Weight 91.6 kg BMI result Body Mass Index 31.6 - Constitutional Present: no acute distress, mild distress - Routine HEENT Exam Head: Present: atraumatic - Routine Neck Exam Present: full ROM - Routine Respiratory Exam Present: decreased breath sounds - Routine Cardiovascular Exam Cardiovascular: Present: RRR - Routine Abdominal Exam Present: diminished bowel sounds - Routine Extremities Exam Present: full ROM, nontender - Routine Back/Spine/Pelvis Exam Back/Spine: Present: no CVA tenderness - Routine Skin Exam Present: intact - Routine Neurological Exam Present: alert, oriented X3 Data - Labs CBC & Chem 7: 01/25/22 06:51 01/25/22 06:51 Labs: 01/24/22 10:11 ECG 12 lead EKG Stat EKG Documentation DIRECTED XR chest 1V Stat 01/24/22 10:17 dilTIAZem HCL [Cardizem] 20 mg IVPUSH STAT STA 01/24/22 10:30 B Type Natriuretic Peptide Stat Basic Metabolic Panel Stat COVID-19 ID NOW ([facility] [employer]) Stat Complete Blood Count Man Dif Stat D Dimer High Sensitivity Stat Influenza A B2 ID NOW ([facility]) Stat Lactic Acid Stat Liver Panel Stat Magnesium Stat Prothrombin Time INR Stat Troponin-I High Sensitivity Stat 01/24/22 10:34 Clotrimazole [Mycelex Johny] 10 mg MUCOUS MEM ONCE ONE 01/24/22 10:38 Add Laboratory Test Stat 01/24/22 11:12 CT angio chest PE protocol Stat 01/24/22 11:15 Lactated Ringers [Lr] 500 ml IV 999 mls/hr 01/24/22 11:26 dilTIAZem HCL [Cardizem] 25 mg IVPUSH STAT STA 01/24/22 11:54 Platelet Pheresis [Pheresis Platelets] Stat RBC [Red Blood Cells] Stat Type and Screen Stat 01/24/22 12:24 cefEPime HCl [Maxipime] 2 gm 0.9 % Sodium Chloride [Ns] 50 ml IV ONCE 01/24/22 12:30 0.9 % Sodium Chloride [Ns] 100 ml dilTIAZem HCL [Cardizem] 125 mg IVCONT Per Protocol mg/hr 01/24/22 12:33 cefEPime HCl [Maxipime] 2 gm IV .STK-MED ONE 01/24/22 12:46 dilTIAZem HCL [Cardizem] 125 mg IVCONT .STK-MED ONE 01/24/22 12:48 iohexoL 350 MG/ML [Omnipaque 350 MG/ML] 100 ml IV ONCE ONE 01/24/22 12:56 Benzonatate [Tessalon] 200 mg PO ONCE ONE 01/24/22 13:37 Troponin-I High Sensitivity Stat ~Lactic Acid-LAB USE ONLY Stat 01/24/22 13:49 UA ClnCatch+Micro w/rflx Cult Stat 01/24/22 15:00 Tbo-Filgrastim [Granix] 300 mcg SUBCUT ONCE ONE 01/24/22 16:12 ~Lactic Acid-LAB USE ONLY Stat 01/24/22 19:23 dilTIAZem HCL [Cardizem] 125 mg IVCONT .STK-MED ONE 01/24/22 23:05 traMADoL HCL [Ultram] 50 mg PO ONCE ONE 01/25/22 01:16 dilTIAZem HCL [Cardizem] 125 mg IVCONT .STK-MED ONE 01/25/22 06:51 BMP [Basic Metabolic Panel Fasting] Routine Complete Blood Count no Diff AM Liver Panel Routine Magnesium Routine 01/25/22 07:47 Glucose, Whole Blood Routine 01/25/22 07:49 Tbo-Filgrastim [Granix] 300 mcg SUBCUT ONCE ONE 01/25/22 08:41 Magnesium Sulfate/H2O 2 gm in 50 ml IV ONCE 01/25/22 09:46 polyethylene glycoL 3350 [Miralax] 17 gm PO ONCE ONE 01/25/22 11:04 Glucose, Whole Blood Routine Laboratory Last Values WBC 0.2 X10*3/uL (4.8-10.8) L* 01/25/22 06:51 RBC 2.88 X10*6/uL (4.20-5.50) L 01/25/22 06:51 Hgb 8.4 g/dl (12.0-16.0) L 01/25/22 06:51 Hct 24.0 % (37.0-47.0) L 01/25/22 06:51 MCV 83.3 fL (80.0-98.0) 01/25/22 06:51 MCH 29.2 pg (27.0-33.0) 01/25/22 06:51 MCHC 35.0 g/dl (31.0-35.0) 01/25/22 06:51 RDW 15.3 % (11.0-16.0) 01/25/22 06:51 Plt Count 15 X10*3/uL (160-400) L* D 01/25/22 06:51 MPV 11.4 fL (9.4-12.3) 01/25/22 06:51 Immature Gran % (Auto) Cancelled 01/24/22 10:30 Neut % (Auto) Cancelled 01/24/22 10:30 Lymph % (Auto) Cancelled 01/24/22 10:30 Donley % (Auto) Cancelled 01/24/22 10:30 Eos % (Auto) Cancelled 01/24/22 10:30 Baso % (Auto) Cancelled 01/24/22 10:30 Lymph # (Auto) Cancelled 01/24/22 10:30 Donley # (Auto) Cancelled 01/24/22 10:30 Eos # (Auto) Cancelled 01/24/22 10:30 Baso # (Auto) Cancelled 01/24/22 10:30 Abs Immat Gran (auto) Cancelled 01/24/22 10:30 Absolute Neuts (auto) Cancelled 01/24/22 10:30 Absolute Nucleated RBC 0.000 X10*3/uL (0.0-0.012) 01/25/22 06:51 Nucleated RBC % (auto) 0.0 /100WBC (0.0-0.2) 01/25/22 06:51 Neutrophils % (Manual) 0 % (45-73) L 01/24/22 10:30 Band Neutrophils % 0 % (3-5) L 01/24/22 10:30 Lymphocytes % (Manual) 94 % (20-40) H 01/24/22 10:30 Atypical Lymphs % (Man) 4 % (0-6) 01/24/22 10:30 Monocytes % (Manual) 2 % (2-11) 01/24/22 10:30 Abs Neuts (Manual) Not Reportable 01/24/22 10:30 Lymphocytes # (Manual) 0.3 X10*3/uL (1.2-4.9) L 01/24/22 10:30 Platelet Estimate DECREASED (NORMAL) 01/24/22 10:30 Plt Morphology Comment NORMAL 01/24/22 10:30 RBC Morphology NOTED 01/24/22 10:30 Hypochromasia 1+ (5-14) /OIF 01/24/22 10:30 Ovalocytes 1+ (5-14) /OIF 01/24/22 10:30 PT 13.6 SEC (10.0-13.1) H 01/24/22 10:30 INR 1.2 (0.9-1.1) H 01/24/22 10:30 D-Dimer High Sensitivty 412 NG/ML 01/24/22 10:30 Sodium 138 mmol/L (135-145) 01/25/22 06:51 Potassium 2.7 mmol/L (3.3-5.1) L 01/25/22 06:51 Chloride 98 mmol/L (96-108) 01/25/22 06:51 Carbon Dioxide 24 mmol/L (22-29) 01/25/22 06:51 Anion Gap 19 (12-20) 01/25/22 06:51 BUN 32 mg/dL (9-16) H 01/25/22 06:51 Creatinine 1.01 mg/dL (0.5-1.4) 01/25/22 06:51 Estim Creat Clear Calc 67.9 01/25/22 06:51 Estimated GFR 56 01/25/22 06:51 POC Glucose 188 mg/dL (60-115) H 01/25/22 11:04 Random Glucose 185 mg/dL (60-115) H 01/24/22 10:30 Fasting Glucose 177 mg/dL (60-99) H 01/25/22 06:51 Lactic Acid 2.5 mmol/L (0.5-2.0) H* 01/24/22 10:30 Lactic Acid F/U @ 2Hr 2.1 mmol/L (0.5-2.0) H* 01/24/22 13:37 Lactic Acid F/U @ 4Hr 1.8 mmol/L (0.5-2.0) 01/24/22 16:12 Calcium 7.4 mg/dL (8.4-10.2) L D 01/25/22 06:51 Magnesium 1.4 mg/dL (1.6-2.6) L* 01/25/22 06:51 Total Bilirubin 2.8 mg/dL (0.0-1.0) H 01/25/22 06:51 Direct Bilirubin 1.5 mg/dL (0.0-0.5) H 01/25/22 06:51 AST 9 U/L (5-31) 01/25/22 06:51 ALT 16 U/L (0-31) 01/25/22 06:51 Alkaline Phosphatase 53 U/L (39-117) 01/25/22 06:51 Troponin I High Sens 80.4 ng/L (<3.5-17.0) H* 01/24/22 13:37 B-Natriuretic Peptide 361 pg/mL (<100) H 01/24/22 10:30 Total Protein 6.1 g/dL (6.5-8.0) L 01/25/22 06:51 Albumin 3.3 g/dL (3.5-5.0) L 01/25/22 06:51 Urine Color Yellow 01/24/22 13:49 Urine Appearance Clear 01/24/22 13:49 Urine pH 6.5 (5.0-9.0) 01/24/22 13:49 Ur Specific [place] >= 1.030 (1.005-1.025) H 01/24/22 13:49 Urine Protein 100 (2+) mg/dL (Neg-Trace) H 01/24/22 13:49 Urine Glucose (UA) Negative mg/dL (Negative) 01/24/22 13:49 Urine Ketones Negative mg/dL (Negative) 01/24/22 13:49 Urine Blood Negative (Negative) 01/24/22 13:49 Urine Nitrite Negative (Negative) 01/24/22 13:49 Ur Leukocyte Esterase Negative (Negative) 01/24/22 13:49 Urine RBC 0-2 /HPF (0-2) 01/24/22 13:49 Urine WBC 0-5 /HPF (0-5) 01/24/22 13:49 Ur Squamous Epith Cells 11-20 /HPF (0-2) 01/24/22 13:49 Urine Bacteria 1+ (None Seen) 01/24/22 13:49 Hyaline Casts 0-2 /LPF (0-2) 01/24/22 13:49 COVID-19 (OLAYINKA) Negative (Negative) 01/24/22 10:30 COVID-19 Clin Com See Note 01/24/22 10:30 Influenza Type A (ABRAM) Negative (Negative) 01/24/22 10:30 Influenza Type B (ABRAM) Negative (Negative) 01/24/22 10:30 Influenza A & B Note See Note 01/24/22 10:30 Blood Type A Positive 01/24/22 11:54 Antibody Screen NEGATIVE 01/24/22 11:54 Crossmatch See Detail 01/24/22 11:54 - Imaging Radiologist's impression: ITS Impressions Chest X-Ray 01/24/22 11:02 IMPRESSION: Surgical changes right parahilar region left midlung. There are increased bilateral interstitial markings likely chronic changes. No acute consolidation. Chest CTA 01/24/22 12:46 IMPRESSION: No pulmonary embolism. Post surgical changes of right upper lobectomy and left upper lobe wedge resection with similar surrounding groundglass pulmonary nodules within compared to prior. Resolution of trace left pleural effusion with stable small right pleural effusion. Similar sclerotic osseous lesions raising the suspicion for osseous metastases and stable thoracic wedge compression deformities. VTE: negative Assessment and Plan Patient Active problem list reviewed?: Yes (1) Pancytopenia Status: Acute Assessment and plan: She does not appear septic. She will need filgrastim 300 mcg daily until the wbc is 1000, She will likely need more platelets tomorrow. I will follow. Please follow closely for sepsis. Recommend neutropenic precautions. - Time Spent With Patient Time Spent with Patient (in minutes): 15
[2022-01-25 11:19] VITALS: BP 117/68; PULSE 62; RESP 20; TEMP 36.6; O2SAT 95
[2022-01-25 15:38] VITALS: BP 108/56; PULSE 73; RESP 17; TEMP 35.7; O2SAT 95
[2022-01-25 19:18] VITALS: BP 96/72; PULSE 90; RESP 17; TEMP 36.6; O2SAT 97
[2022-01-25] MEDS: Acetaminophen 325 MG TABLET 650 MG PO (21:27)
[2022-01-26] VITALS (9 sets, daily range): BP systolic 102–126; BP diastolic 62–91; PULSE 78–110; RESP 16–20; TEMP 36.1–36.7; O2SAT 93–98
[2022-01-26] MEDS: Acetaminophen 325 MG TABLET 650 MG PO ×2 (02:19→22:44)
[2022-01-26] MEDS: Omeprazole 20 MG CAPSULE.DR PO (06:31)
[2022-01-26 06:41] LABS: Hemoglobin 8.3 g/dl (12.0-16.0); Mean Corpuscular HGB Conc 34.6 g/dl (31.0-35.0); Mean Corpuscular Hemoglobin 29.3 pg (27.0-33.0); Mean Corpuscular Volume 84.8 fL (80.0-98.0); Mean Platelet Volume 10.6 fL (9.4-12.3); Red Blood Count 2.83 X10*6/uL (4.20-5.50); Red Cell Distribution Width 15.5 % (11.0-16.0)
[2022-01-26 07:31] LABS: Anion Gap 18 (12-20); Blood Urea Nitrogen 46 mg/dL (9-16); Calcium 7.3 mg/dL (8.4-10.2); Carbon Dioxide 26 mmol/L (22-29); Chloride 98 mmol/L (96-108); Creatinine Clr Calc Pharmacy 61.3; Estimated Glomerular Filt Rate 49; Glucose Fasting 136 mg/dL (60-99); Potassium 2.8 mmol/L (3.3-5.1); Sodium 139 mmol/L (135-145)
[2022-01-26 07:42] LABS: Platelet Count 6 X10*3/uL (160-400); WBC ABN SCTR FOR CBC 1
[2022-01-26 07:43] LABS: White Blood Count 0.3 X10*3/uL (4.8-10.8)
--- NOTE | 2022-01-26 09:19 | P.PNIM_ITS ---
Subjective Subjective Date of Service: 01/26/22 Interval History: cc: odynophagia interval history:still having difficulty swallowing Cardiovascular Cardiovascular: Reports no additional cardiovascular complaints Respiratory Respiratory: Reports no additional respiratory complaints Physical Exam Vital Signs: Vital Signs: Last Vital Signs Temp 97.2 F 01/26/22 07:31 Pulse 78 01/26/22 07:31 Resp 20 01/26/22 07:31 BP 102/71 01/26/22 07:31 Pulse Ox 93 01/26/22 07:31 O2 Del Method 01/26/22 07:31 O2 Flow Rate 99 01/24/22 10:06 BMI result Body Mass Index 31.6 General: AO X 3, no acute distress Resp: CTA bilateral, no accessory muscles used CVS: S1,S2,RRR GI: soft, non tender, non distended Neuro: motor grossly intact, alert Psych: appropriate affect, appropriate insight Objective Data Active Medications Acetaminophen (Acetaminophen 325 Mg Tablet) 650 mg PO Q6H PRN PRN Reason: Pain, Mild (Pain Scale 1-3) Last Admin: 01/26/22 02:19 Dose: 650 mg Documented By: ANAND Buprenorphine/Naloxone (Buprenorphine/Naloxone 4/1 Mg Film) 1 film SUBLINGUAL DAILY [facility] Last Admin: 01/25/22 07:35 Dose: 1 film Documented By: TORITO Diltiazem HCl (Diltiazem Hcl Cd 180 Mg Cap.Er.24h) 180 mg PO DAILY [facility]; Protocol Last Admin: 01/25/22 07:35 Dose: 180 mg Documented By: TORITO Docusate Sodium (Docusate Sodium 100 Mg Capsule) 100 mg PO BEDTIME PRN PRN Reason: Constipation Folic Acid (Folic Acid 1 Mg Tablet) 1 mg PO DAILY [facility] Last Admin: 01/25/22 07:35 Dose: 1 mg Documented By: TORITO Hydrochlorothiazide (Hydrochlorothiazide 25 Mg Tablet) 25 mg PO DAILY [facility] Last Admin: 01/25/22 07:35 Dose: 25 mg Documented By: TORITO Lidocaine/Diphenhydr/Alum/Mg/Simeth (Mag&Al/Sim/Diphenhyd/Lidocaine 10 Ml Oral.Susp) 10 ml PO Q4H PRN; Protocol PRN Reason: sore throat Last Admin: 01/25/22 21:22 Dose: 10 ml Documented By: ANAND Magnesium Oxide (Magnesium Oxide 400 Mg Tablet) 400 mg PO BIDPC [facility] Last Admin: 01/25/22 16:10 Dose: 400 mg Documented By: TORITO Metoprolol Tartrate (Metoprolol Tartrate 50 Mg Tablet) 50 mg PO DAILY [facility] Last Admin: 01/25/22 07:36 Dose: 50 mg Documented By: TORITO Pt Own Med ( Milnacipran [Savella ] 50 Mg Tablet) 50 mg PO BID [facility] Last Admin: 01/25/22 21:21 Dose: 50 mg Documented By: ANAND Nystatin (Nystatin Oral Susp 500,000 Unit/5 Ml Oral.Susp) 200,000 unit PO QID [facility]; Protocol Last Admin: 01/25/22 21:21 Dose: 200,000 unit Documented By: ANAND Omeprazole (Omeprazole 20 Mg Capsule.Dr) 20 mg PO DAILY@0630 [facility] Last Admin: 01/26/22 06:31 Dose: 20 mg Documented By: ANAND Paroxetine HCl (Paroxetine Hcl 30 Mg Tablet) 60 mg PO DAILY [facility] Last Admin: 01/25/22 07:34 Dose: 60 mg Documented By: TORITO Pharmacy Consult (Consult Rx Perform Med Rec) 1 each MISCELLANE ONCE PRN PRN Reason: Consult order Prednisone (Prednisone 20 Mg Tablet) 40 mg PO DAILY [facility] Last Admin: 01/25/22 07:35 Dose: 40 mg Documented By: TORITO Sodium Chloride (0.9 % Sodium Chloride Flush 3 Ml Syringe) 3 ml IVFLUSH QSHIFT [facility] Last Admin: 01/25/22 21:25 Dose: 3 ml Documented By: ANAND Labs CBC & Chem 7: 01/26/22 06:16 01/26/22 06:16 Labs: Laboratory Results - last 24 hr 01/25/22 01/26/22 01/26/22 11:04 06:16 06:16 MCV 84.8 MCH 29.3 MCHC 34.6 RDW 15.5 Plt Count 6 L* D MPV 10.6 Absolute Nucleated RBC 0.000 Nucleated RBC % (auto) 0.0 Anion Gap 18 Estim Creat Clear Calc 61.3 Estimated GFR 49 POC Glucose 188 H Fasting Glucose 136 H Calcium 7.3 L Microbiology Microbiology Results: Microbiology 01/24/22 10:41 Blood Culture - Preliminary Blood - Venous No growth after 24 hours. 01/24/22 10:30 Blood Culture - Preliminary Blood - Venous No growth after 24 hours. Assessment and Plan (1) Pancytopenia: Status: Acute Plan 61F with pmh NSCLC on chemotherapy, breast cancer, depression, HCV, HTN, COPD, opiate dependence presented with sob and odynophagia found to have worsening pancytopenia and new onset afib with rvr new onset afib with rvr rate improved, now off cardizem drip no AC due to thrombocytopenia tele lopressor, cardizem po pacnytopenia due to chemotherapy in pateint with NSCLC tbo-filgastrim 300 daily until wbc >1000 oncology following s/p 1 unit plt 15, platelets now 7 again, will transfuse another unit platelets s/p 2 unit prbc 15 hgb stable monitor cbc follow up cultures, hold off on abx for now oral thrush nystatin, magic mouthwash COPD bronchodilators as needed depression paxil full code reason for continued hospitalization:significant panctopenia requiring close monitoring and transfusions Quality Stroke Does the patient have a stroke diagnosis?: No VTE Prior VTE?: No VTE Risk Level:: Medical - low VTE Device Contraindication: Treatment Not Indicated VTE Drug Contraindication: Treatment Not Indicated
[2022-01-26] MEDS: 0.9 % Sodium Chloride Flush 3 ML SYRINGE IVFLUSH ×3 (09:24→22:46)
[2022-01-26] MEDS: Nystatin Oral Susp 500,000 UNIT/5 ML ORAL.SUSP 200000 UNIT PO (09:24)
--- NOTE | 2022-01-26 09:24 | P.CDIC_ITS ---
CDI Concurrent Query Documentation Clarification: PHYSICIAN'S DOCUMENTATION REQUEST Date of Query: 01/26/22 0924 Patient Name: Elida Schumacher Admit Date: 01/24/22 Dear Doctor, A review of the medical record indicates additional documentation may be needed. Please review below and update the documentation accordingly. Clinical Indicators: The following diagnoses or signs and symptoms were noted in the patient record: Risk Factors/Clinical Indicators/Treatments LABS: 01/25 - magnesium 1.4 L Magnesium oxide PO Based on the above, could you clarify in the Progress Notes the appropriate diagnosis, if significant, that supports the above abnormalities and additional evaluation, monitoring, and/or treatment rendered: * Hypomagnesemia or other etiology of lab findings * Labs indicate a diagnosis of (please specify) * Other (please specify) * Unable to determine Use of terms such as suspected, likely, concern for, or probable (associated with a specific diagnosis that is being evaluated, monitored, or treated as if it exists) are acceptable and can be coded in the inpatient setting, when documented at the time of discharge. Thank you, Jackelin Moreno [facility], CDIS Extension: [phone] Please use your independent medical judgment in providing your response. THIS QUERY IS PART OF THE PERMANENT MEDICAL RECORD Provider Response: Other Other Diagnosis: hypomagnesemia
[2022-01-26] MEDS: PARoxetine HCL 30 MG TABLET 60 MG PO (09:25)
[2022-01-26] MEDS: Magnesium Oxide 400 MG TABLET PO ×2 (09:25→16:26)
[2022-01-26] MEDS: hydroCHLOROthiazide 25 MG TABLET PO (09:25)
[2022-01-26] MEDS: Folic Acid 1 MG TABLET PO (09:25)
[2022-01-26] MEDS: dilTIAZem HCL CD 180 MG CAP.ER.24H PO (09:25)
[2022-01-26] MEDS: Mag&Al/Sim/Diphenhyd/Lidocaine 10 ML ORAL.SUSP PO ×3 (09:26→22:44)
[2022-01-26] MEDS: Metoprolol Tartrate 50 MG TABLET PO (09:26)
[2022-01-26] MEDS: Buprenorphine/Naloxone 4/1 mg FILM 1 FILM SUBLINGUAL (09:26)
[2022-01-26] MEDS: predniSONE 20 MG TABLET 40 MG PO (09:26)
[2022-01-26] MEDS: Tbo-Filgrastim 300 MCG/0.5 ML SYRINGE SUBCUT (10:28)
[2022-01-26] MEDS: Fluconazole in NaCl,Iso-Osm 200 MG/100 ML PIGGYBACK 100 MG IV (13:11)
--- NOTE | 2022-01-26 13:35 | P.PNHO-ONC_ITS ---
Medical Summary - Medical Summary Date of Service: 01/26/22 Chief complaint: Throat pain Interval History Interval history: Patient is complaining of fairly severe pain in her throat and difficulty swallowing. No fever or chills. No headache or dizziness. No abdominal discomfort or diarrhea. She denies any bruising or epistaxis. Review of Systems - Neurologic Reports no additional neurologic complaints [facility] Medical History: Medical History (Last Reviewed 01/24/22 @ 20:47 by Lubna Carey RN) Bilateral lung cancer Cancer of upper lobe of left lung Onset Date: ~2020 Cancer of upper lobe of right lung Onset Date: ~2019 COPD (chronic obstructive pulmonary disease) Depression GERD (gastroesophageal reflux disease) History of breast cancer Onset Date: ~2006 History of hepatitis C HTN (hypertension) Internal and external bleeding hemorrhoids Obesity Pulmonary nodules Smoker Tubular adenoma of colon Family History: Family History (Last Reviewed 01/24/22 @ 14:52 by Joel Brink MD) Mother History of lung cancer Brother History of lung cancer Maternal Grandmother Breast cancer in female Maternal Aunt Breast cancer in female Daughter Thyroid cancer Surgical History: Surgical History (Last Reviewed 01/24/22 @ 20:47 by Lubna Carey RN) History of anterior colporrhaphy Onset Date: ~2016 History of back surgery Onset Date: ~2011 History of colonoscopy Onset Date: ~2014 History of hemorrhoidectomy Onset Date: ~2019 History of lobectomy of lung Onset Date: ~2019 History of lumpectomy of right breast Onset Date: ~2006 History of lung surgery Onset Date: ~2020 History of tubal ligation Social History: Social History (Last Reviewed 01/24/22 @ 14:52 by Joel Brink MD) Living Situation History: Household Members: Significant Other Housing: Apartment Are you a primary occasional caregiver to a significant other at home: No Do you presently have visiting nurse or other home services: No Tobacco History: Patient Tobacco Use Status: Never used Tobacco Tobacco use type: Cigar Years Smoked: 46 Second Hand Smoke Exposure: No Substance Use History: Substance Use Type: Marijuana Occupation Assessmet: service: No Current occupational status: disabled Current occupational exposures/hazards: No Home Medications and Allergies Current Medications: Current Medications Acetaminophen (Acetaminophen 325 Mg Tablet) 650 mg PO Q6H PRN PRN Reason: Pain, Mild (Pain Scale 1-3) Last Admin: 01/26/22 02:19 Dose: 650 mg Buprenorphine/Naloxone (Buprenorphine/Naloxone 4/1 Mg Film) 1 film SUBLINGUAL DAILY [facility] Last Admin: 01/26/22 09:26 Dose: 1 film Diltiazem HCl (Diltiazem Hcl Cd 180 Mg Cap.Er.24h) 180 mg PO DAILY [facility]; Protocol Last Admin: 01/26/22 09:25 Dose: 180 mg Docusate Sodium (Docusate Sodium 100 Mg Capsule) 100 mg PO BEDTIME PRN PRN Reason: Constipation Folic Acid (Folic Acid 1 Mg Tablet) 1 mg PO DAILY [facility] Last Admin: 01/26/22 09:25 Dose: 1 mg Hydrochlorothiazide (Hydrochlorothiazide 25 Mg Tablet) 25 mg PO DAILY [facility] Last Admin: 01/26/22 09:25 Dose: 25 mg Fluconazole 100 mg/ IV (Miscellaneous Supplies) 50 mls @ 50 mls/hr IV Q24H [facility] Lidocaine/Diphenhydr/Alum/Mg/Simeth (Mag&Al/Sim/Diphenhyd/Lidocaine 10 Ml Oral.Susp) 10 ml PO Q4H PRN; Protocol PRN Reason: sore throat Last Admin: 01/26/22 09:26 Dose: 10 ml [facility]esium [facility] ([facility] Mg [facility] Admin: 01/26/22 09:25 Dose: 400 mg Metoprolol Tartrate (Metoprolol Tartrate 50 Mg Tablet) 50 mg PO DAILY [facility] Last Admin: 01/26/22 09:26 Dose: 50 mg Pt Own Med ( Milnacipran [Savella ] 50 Mg Tablet) 50 mg PO BID [facility] Last Admin: 01/26/22 09:25 Dose: 50 mg Omeprazole (Omeprazole 20 Mg Capsule.Dr) 20 mg PO DAILY@0630 [facility] Last Admin: 01/26/22 06:31 Dose: 20 mg Paroxetine HCl (Paroxetine Hcl 30 Mg Tablet) 60 mg PO DAILY [facility] Last Admin: 01/26/22 09:25 Dose: 60 mg Pharmacy Consult (Consult Rx Perform Med Rec) 1 each MISCELLANE ONCE PRN PRN Reason: Consult order Prednisone (Prednisone 20 Mg Tablet) 40 mg PO DAILY [facility] Last Admin: 01/26/22 09:26 Dose: 40 mg Sodium Chloride (0.9 % Sodium Chloride Flush 3 Ml Syringe) 3 ml IVFLUSH QSHIFT [facility] Last Admin: 01/26/22 13:15 Dose: 3 ml Home Medications Medication Instructions Recorded Confirmed Type buprenorphine 4 mg-naloxone 1 mg 1 strip sublingual DAILY 01/18/22 01/24/22 History sublingual film (Suboxone) diltiazem HCl 180 mg 180 mg PO DAILY 01/18/22 01/24/22 History capsule,extended release 24 hr, controlled (DILT-XR) docusate sodium 100 mg capsule 1 cap PO BEDTIME PRN Constipation 01/18/22 01/24/22 History folic acid 1 mg tablet 1 mg PO DAILY 01/18/22 01/24/22 History metoprolol tartrate 50 1 tab PO DAILY 01/18/22 01/24/22 History mg-hydrochlorothiazide 25 mg tablet milnacipran 50 mg tablet (Savella) 50 mg PO BID 01/18/22 01/24/22 History omeprazole 20 mg capsule,delayed 20 mg PO DAILY@0630 01/18/22 01/24/22 History release paroxetine HCl 20 mg tablet 60 mg PO DAILY 01/18/22 01/24/22 History umeclidinium 62.5 mcg-vilanterol 1 puff inhalation DAILY 01/18/22 01/24/22 History 25 mcg/actuation powdr for inhalation (Anoro Ellipta) Allergies Allergy/AdvReac Type Severity Reaction Status Date / Time lisinopril [LISINOPRIL] Allergy Severe SWELLING- Verified 01/15/22 12:39 ANGIOEDEMA codeine [CODEINE] Allergy Intermediate VOMITING/HIVES, Verified 01/15/22 12:39 vomiting, hives Exam Vital signs: Vital Signs Temp 98.1 F 01/26/22 11:34 Pulse 80 01/26/22 11:34 Resp 18 01/26/22 11:34 BP 107/81 01/26/22 11:34 Pulse Ox 95 01/26/22 11:34 O2 Del Method 01/26/22 11:34 O2 Flow Rate 99 01/24/22 10:06 Intake & Output 01/25/22 01/26/22 01/26/22 18:59 06:59 18:59 Intake Total 395.667 / 395.667 0 / 395.667 0 / 0 Output Total 300 / 300 Balance 95.667 / 95.667 0 / 95.667 0 / 0 Urine Output (Average ml/kg/hr) 0.27 0.27 0.27 Intake: Intake, Oral Amount 240 / 240 0 / 240 Intake (Blood Product) Amount 0 / 0 Plt Aph Pas Pathreduced(E9139) 0 / 0 Unit [id number] Intake, IV Amount 155.667 / 155.667 Magnesium Sulfate/H2O 2 gm In 50 / 50 50 ml @ 25 mls/hr IV ONCE ONE Rx#:[id number] dilTIAZem HCL 125 mg In 0.9 % 105.667 / 105.667 Sodium Chloride 100 ml @ Per Protocol IVCONT .Q0M [facility] Rx#: [id number] Output: Output, Urine Amount 300 / 300 Other: Breakfast % Eaten 100% Lunch % Eaten 100% Number of Bowel Movements 1 Urine Bedside Commode Last Bowel Movement 01/19/22 Stool Color Mayo Stool Consistency Liquid Weight 91.6 kg BMI result Body Mass Index 31.6 - Constitutional Present: no acute distress, mild distress - Routine HEENT Exam Head: Present: atraumatic - Routine Neck Exam Present: full ROM - Routine Respiratory Exam Present: decreased breath sounds - Routine Cardiovascular Exam Cardiovascular: Present: RRR - Routine Abdominal Exam Present: diminished bowel sounds - Routine Extremities Exam Present: full ROM, nontender - Routine Back/Spine/Pelvis Exam Back/Spine: Present: no CVA tenderness - Routine Skin Exam Present: intact - Routine Neurological Exam Present: alert, oriented X3 Data - Labs CBC & Chem 7: 01/26/22 06:16 01/26/22 06:16 - Imaging Radiologist's impression: ITS Impressions Chest X-Ray 01/24/22 11:02 IMPRESSION: Surgical changes right parahilar region left midlung. There are increased bilateral interstitial markings likely chronic changes. No acute consolidation. Chest CTA 01/24/22 12:46 IMPRESSION: No pulmonary embolism. Post surgical changes of right upper lobectomy and left upper lobe wedge resection with similar surrounding groundglass pulmonary nodules within compared to prior. Resolution of trace left pleural effusion with stable small right pleural effusion. Similar sclerotic osseous lesions raising the suspicion for osseous metastases and stable thoracic wedge compression deformities. VTE: negative Assessment and Plan Patient Active problem list reviewed?: Yes (1) Pancytopenia Status: Acute Assessment and plan: 1. This is a pleasant 61-year-old woman with metastatic non-small cell lung cancer who is currently receiving chemotherapy admitted for severe pancytopenia and oral thrush. Her blood cultures so far are negative. She is on neutropenic precautions. She has been receiving nystatin but she has persistent thrush and odynophagia. I recommend IV fluconazole 100 mg daily for at least 3 days. Transfuse platelets to keep count at least above 10,000. She is receiving Granix 300 mcg subQ daily. She has been on folic acid and monthly vitamin B12 injections. Thanks. - Time Spent With Patient Time Spent with Patient (in minutes): 10
[2022-01-27] VITALS (7 sets, daily range): BP systolic 100–151; BP diastolic 60–77; PULSE 68–92; RESP 18–20; TEMP 35.9–36.7; O2SAT 94–98
[2022-01-27] MEDS: Omeprazole 20 MG CAPSULE.DR PO (06:13)
[2022-01-27] MEDS: Acetaminophen 325 MG TABLET 650 MG PO ×2 (06:14→15:18)
[2022-01-27 06:23] LABS: Hematocrit 24.7 % (37.0-47.0); Hemoglobin 8.7 g/dl (12.0-16.0); Mean Corpuscular HGB Conc 35.2 g/dl (31.0-35.0); Mean Corpuscular Hemoglobin 29.9 pg (27.0-33.0); Mean Corpuscular Volume 84.9 fL (80.0-98.0); Mean Platelet Volume 9.7 fL (9.4-12.3); Red Blood Count 2.91 X10*6/uL (4.20-5.50); Red Cell Distribution Width 15.6 % (11.0-16.0)
[2022-01-27 06:53] LABS: Anion Gap 17 (12-20); Blood Urea Nitrogen 42 mg/dL (9-16); Calcium 7.3 mg/dL (8.4-10.2); Carbon Dioxide 25 mmol/L (22-29); Chloride 99 mmol/L (96-108); Creatinine Clr Calc Pharmacy 74.5; Estimated Glomerular Filt Rate > 60; Glucose Fasting 145 mg/dL (60-99); Potassium 3.2 mmol/L (3.3-5.1); Sodium 138 mmol/L (135-145)
[2022-01-27 07:22] LABS: White Blood Count 0.6 X10*3/uL (4.8-10.8)
[2022-01-27 07:23] LABS: Platelet Count 10 X10*3/uL (160-400)
[2022-01-27] MEDS: PARoxetine HCL 30 MG TABLET 60 MG PO (08:31)
[2022-01-27] MEDS: hydroCHLOROthiazide 25 MG TABLET PO (08:31)
[2022-01-27] MEDS: Metoprolol Tartrate 50 MG TABLET PO (08:31)
[2022-01-27] MEDS: predniSONE 20 MG TABLET 40 MG PO (08:31)
[2022-01-27] MEDS: 0.9 % Sodium Chloride Flush 3 ML SYRINGE IVFLUSH ×3 (08:31→19:57)
[2022-01-27] MEDS: Folic Acid 1 MG TABLET PO (08:31)
[2022-01-27] MEDS: dilTIAZem HCL CD 180 MG CAP.ER.24H PO (08:31)
[2022-01-27] MEDS: Buprenorphine/Naloxone 4/1 mg FILM 1 FILM SUBLINGUAL (08:31)
[2022-01-27] MEDS: Magnesium Oxide 400 MG TABLET PO ×2 (08:32→15:18)
--- NOTE | 2022-01-27 09:50 | P.PNIM_ITS ---
Subjective Subjective Date of Service: 01/27/22 Interval History: cc: odynophagia interval history:still having difficulty swallowing Cardiovascular Cardiovascular: Reports no additional cardiovascular complaints Respiratory Respiratory: Reports no additional respiratory complaints Physical Exam Vital Signs: Vital Signs: Last Vital Signs Temp 96.7 F L 01/27/22 03:54 Pulse 68 01/27/22 07:42 Resp 18 01/27/22 07:42 BP 113/74 01/27/22 07:42 Pulse Ox 96 01/27/22 07:42 O2 Del Method 01/27/22 07:42 O2 Flow Rate 99 01/24/22 10:06 BMI result Body Mass Index 31.6 General: AO X 3, no acute distress Resp: CTA bilateral, no accessory muscles used CVS: S1,S2,RRR GI: soft, non tender, non distended Neuro: motor grossly intact, alert Psych: appropriate affect, appropriate insight Objective Data Active Medications Acetaminophen (Acetaminophen 325 Mg Tablet) 650 mg PO Q6H PRN PRN Reason: Pain, Mild (Pain Scale 1-3) Last Admin: 01/27/22 06:14 Dose: 650 mg Documented By: ANAND Buprenorphine/Naloxone (Buprenorphine/Naloxone 4/1 Mg Film) 1 film SUBLINGUAL DAILY [facility] Last Admin: 01/27/22 08:31 Dose: 1 film Documented By: IVAN Diltiazem HCl (Diltiazem Hcl Cd 180 Mg Cap.Er.24h) 180 mg PO DAILY [facility]; Protocol Last Admin: 01/27/22 08:31 Dose: 180 mg Documented By: IVAN Docusate Sodium (Docusate Sodium 100 Mg Capsule) 100 mg PO BEDTIME PRN PRN Reason: Constipation Folic Acid (Folic Acid 1 Mg Tablet) 1 mg PO DAILY [facility] Last Admin: 01/27/22 08:31 Dose: 1 mg Documented By: IVAN Hydrochlorothiazide (Hydrochlorothiazide 25 Mg Tablet) 25 mg PO DAILY [facility] Last Admin: 01/27/22 08:31 Dose: 25 mg Documented By: IVAN Fluconazole 100 mg/ IV (Miscellaneous Supplies) 50 mls @ 50 mls/hr IV Q24H [facility] Lidocaine/Diphenhydr/Alum/Mg/Simeth (Mag&Al/Sim/Diphenhyd/Lidocaine 10 Ml Oral.Susp) 10 ml PO Q4H PRN; Protocol PRN Reason: sore throat Last Admin: 01/26/22 22:44 Dose: 10 ml Documented By: ANAND Magnesium Oxide (Magnesium Oxide 400 Mg Tablet) 400 mg PO BIDPC [facility] Last Admin: 01/27/22 08:32 Dose: 400 mg Documented By: IVAN Metoprolol Tartrate (Metoprolol Tartrate 50 Mg Tablet) 50 mg PO DAILY [facility] Last Admin: 01/27/22 08:31 Dose: 50 mg Documented By: IVAN Pt Own Med ( Milnacipran [Savella ] 50 Mg Tablet) 50 mg PO BID [facility] Last Admin: 01/27/22 08:32 Dose: 50 mg Documented By: IVAN Omeprazole (Omeprazole 20 Mg Capsule.Dr) 20 mg PO DAILY@0630 [facility] Last Admin: 01/27/22 06:13 Dose: 20 mg Documented By: ANAND Paroxetine HCl (Paroxetine Hcl 30 Mg Tablet) 60 mg PO DAILY [facility] Last Admin: 01/27/22 08:31 Dose: 60 mg Documented By: IVAN Pharmacy Consult (Consult Rx Perform Med Rec) 1 each MISCELLANE ONCE PRN PRN Reason: Consult order Prednisone (Prednisone 20 Mg Tablet) 40 mg PO DAILY [facility] Last Admin: 01/27/22 08:31 Dose: 40 mg Documented By: IVAN Sodium Chloride (0.9 % Sodium Chloride Flush 3 Ml Syringe) 3 ml IVFLUSH QSHIFT [facility] Last Admin: 01/27/22 08:31 Dose: 3 ml Documented By: IVAN Labs CBC & Chem 7: 01/27/22 05:37 01/27/22 05:37 Labs: Laboratory Results - last 24 hr 01/24/22 01/24/22 01/27/22 10:30 11:54 05:37 MCV 84.9 MCH 29.9 MCHC 35.2 H RDW 15.6 Plt Count 10 L* D MPV 9.7 Absolute Nucleated RBC 0.000 Nucleated RBC % (auto) 0.0 Smear Path Review SEE NOTE Anion Gap Estim Creat Clear Calc Estimated GFR Fasting Glucose Calcium Blood Type A Positive Antibody Screen NEGATIVE Crossmatch See Detail 01/27/22 05:37 MCV MCH MCHC RDW Plt Count MPV Absolute Nucleated RBC Nucleated RBC % (auto) Smear Path Review Anion Gap 17 Estim Creat Clear Calc 74.5 Estimated GFR > 60 Fasting Glucose 145 H Calcium 7.3 L Blood Type Antibody Screen Crossmatch Microbiology Microbiology Results: Microbiology 01/24/22 10:41 Blood Culture - Preliminary Blood - Venous No growth after 48 hours. 01/24/22 10:30 Blood Culture - Preliminary Blood - Venous No growth after 48 hours. Assessment and Plan (1) Pancytopenia: Status: Acute Plan 61F with pmh NSCLC on chemotherapy, breast cancer, depression, HCV, HTN, COPD, opiate dependence presented with sob and odynophagia found to have worsening pancytopenia and new onset afib with rvr new onset afib with rvr rate improved, now off cardizem drip no AC due to thrombocytopenia tele lopressor, cardizem po pancytopenia due to chemotherapy in pateint with NSCLC tbo-filgastrim 300 daily until wbc >1000 oncology following s/p 1 unit plt 01/24, and 1 unit platelets 01/26. s/p 2 unit prbc 01/24 hgb stable monitor cbc oral thrush iv diflucan COPD bronchodilators as needed depression paxil full code reason for continued hospitalization:significant pancytopenia requiring close monitoring and transfusions Quality Stroke Does the patient have a stroke diagnosis?: No VTE Prior VTE?: No VTE Risk Level:: Medical - low VTE Device Contraindication: Treatment Not Indicated VTE Drug Contraindication: Treatment Not Indicated
[2022-01-27] MEDS: Potassium Chloride Packet 20 MEQ PACKET 40 MEQ PO (10:16)
[2022-01-27] MEDS: Fluconazole in NaCl,Iso-Osm 100 MG in Container,Empty 0 ML 50 MG IV (12:21)
[2022-01-27] MEDS: Docusate Sodium 100 MG CAPSULE PO (15:18)
[2022-01-27] MEDS: Mag&Al/Sim/Diphenhyd/Lidocaine 10 ML ORAL.SUSP PO (15:18)
--- NOTE | 2022-01-27 16:58 | P.PNHO-ONC_ITS ---
Medical Summary - Medical Summary Date of Service: 01/27/22 Chief complaint: Throat pain Interval History Interval history: Patient is doing better today. Continues to have some difficulty swallowing. No fever, chills or weight loss. Review of Systems - Constitutional Reports as per HPI - Neurologic Reports no additional neurologic complaints [facility] Medical History: Medical History (Last Reviewed 01/24/22 @ 20:47 by Lubna Carey RN) Bilateral lung cancer Cancer of upper lobe of left lung Onset Date: ~2020 Cancer of upper lobe of right lung Onset Date: ~2019 COPD (chronic obstructive pulmonary disease) Depression GERD (gastroesophageal reflux disease) History of breast cancer Onset Date: ~2006 History of hepatitis C HTN (hypertension) Internal and external bleeding hemorrhoids Obesity Pulmonary nodules Smoker Tubular adenoma of colon Family History: Family History (Last Reviewed 01/24/22 @ 14:52 by Joel Brink MD) Mother History of lung cancer Brother History of lung cancer Maternal Grandmother Breast cancer in female Maternal Aunt Breast cancer in female Daughter Thyroid cancer Surgical History: Surgical History (Last Reviewed 01/24/22 @ 20:47 by Lubna Carey RN) History of anterior colporrhaphy Onset Date: ~2016 History of back surgery Onset Date: ~2011 History of colonoscopy Onset Date: ~2014 History of hemorrhoidectomy Onset Date: ~2019 History of lobectomy of lung Onset Date: ~2019 History of lumpectomy of right breast Onset Date: ~2006 History of lung surgery Onset Date: ~2020 History of tubal ligation Social History: Social History (Last Reviewed 01/24/22 @ 14:52 by Joel Brink MD) Living Situation History: Household Members: Significant Other Housing: Apartment Are you a primary healthcare customer service to a significant other at home: No Do you presently have visiting nurse or other home services: No Tobacco History: Patient Tobacco Use Status: Never used Tobacco Tobacco use type: Cigar Years Smoked: 46 Second Hand Smoke Exposure: No Substance Use History: Substance Use Type: Marijuana Occupation Assessmet: service: No Current occupational status: disabled Current occupational exposures/hazards: No Home Medications and Allergies Current Medications: Current Medications Acetaminophen (Acetaminophen 325 Mg Tablet) 650 mg PO Q6H PRN PRN Reason: Pain, Mild (Pain Scale 1-3) Last Admin: 01/27/22 15:18 Dose: 650 mg Buprenorphine/Naloxone (Buprenorphine/Naloxone 4/1 Mg Film) 1 film SUBLINGUAL DAILY [facility] Last Admin: 01/27/22 08:31 Dose: 1 film Diltiazem HCl (Diltiazem Hcl Cd 180 Mg Cap.Er.24h) 180 mg PO DAILY [facility]; Protocol Last Admin: 01/27/22 08:31 Dose: 180 mg Docusate Sodium (Docusate Sodium 100 Mg Capsule) 100 mg PO BEDTIME PRN PRN Reason: Constipation Last Admin: 01/27/22 15:18 Dose: 100 mg Folic Acid (Folic Acid 1 Mg Tablet) 1 mg PO DAILY [facility] Last Admin: 01/27/22 08:31 Dose: 1 mg Hydrochlorothiazide (Hydrochlorothiazide 25 Mg Tablet) 25 mg PO DAILY [facility] Last Admin: 01/27/22 08:31 Dose: 25 mg Fluconazole 100 mg/ IV (Miscellaneous Supplies) 50 mls @ 50 mls/hr IV Q24H [facility] Last Infusion: 01/27/22 13:29 Dose: Infused Lidocaine/Diphenhydr/Alum/Mg/Simeth (Mag&Al/Sim/Diphenhyd/Lidocaine 10 Ml Oral.Susp) 10 ml PO Q4H PRN; Protocol PRN Reason: sore throat Last Admin: 01/27/22 15:18 Dose: 10 ml Magnesium Oxide (Magnesium Oxide 400 Mg Tablet) 400 mg PO BIDPC [facility] Last Admin: 01/27/22 15:18 Dose: 400 mg Metoprolol Tartrate (Metoprolol Tartrate 50 Mg Tablet) 50 mg PO DAILY [facility] Last Admin: 01/27/22 08:31 Dose: 50 mg Pt Own Med ( Milnacipran [Savella ] 50 Mg Tablet) 50 mg PO BID [facility] Last Admin: 01/27/22 08:32 Dose: 50 mg Omeprazole (Omeprazole 20 Mg Capsule.Dr) 20 mg PO DAILY@0630 [facility] Last Admin: 01/27/22 06:13 Dose: 20 mg Paroxetine HCl (Paroxetine Hcl 30 Mg Tablet) 60 mg PO DAILY [facility] Last Admin: 01/27/22 08:31 Dose: 60 mg Pharmacy Consult (Consult Rx Perform Med Rec) 1 each MISCELLANE ONCE PRN PRN Reason: Consult order Prednisone (Prednisone 20 Mg Tablet) 40 mg PO DAILY [facility] Last Admin: 01/27/22 08:31 Dose: 40 mg Sodium Chloride (0.9 % Sodium Chloride Flush 3 Ml Syringe) 3 ml IVFLUSH QSHIFT [facility] Last Admin: 01/27/22 15:19 Dose: 3 ml Home Medications Medication Instructions Recorded Confirmed Type buprenorphine 4 mg-naloxone 1 mg 1 strip sublingual DAILY 01/18/22 01/24/22 History sublingual film (Suboxone) diltiazem HCl 180 mg 180 mg PO DAILY 01/18/22 01/24/22 History capsule,extended release 24 hr, controlled (DILT-XR) docusate sodium 100 mg capsule 1 cap PO BEDTIME PRN Constipation 01/18/22 01/24/22 History folic acid 1 mg tablet 1 mg PO DAILY 01/18/22 01/24/22 History metoprolol tartrate 50 1 tab PO DAILY 01/18/22 01/24/22 History mg-hydrochlorothiazide 25 mg tablet milnacipran 50 mg tablet (Savella) 50 mg PO BID 01/18/22 01/24/22 History omeprazole 20 mg capsule,delayed 20 mg PO DAILY@0630 01/18/22 01/24/22 History release paroxetine HCl 20 mg tablet 60 mg PO DAILY 01/18/22 01/24/22 History umeclidinium 62.5 mcg-vilanterol 1 puff inhalation DAILY 01/18/22 01/24/22 History 25 mcg/actuation powdr for inhalation (Anoro Ellipta) Allergies Allergy/AdvReac Type Severity Reaction Status Date / Time lisinopril [LISINOPRIL] Allergy Severe SWELLING- Verified 01/15/22 12:39 ANGIOEDEMA codeine [CODEINE] Allergy Intermediate VOMITING/HIVES, Verified 01/15/22 12:39 vomiting, hives Exam Vital signs: Vital Signs Temp 98.0 F 01/27/22 14:58 Pulse 85 01/27/22 14:58 Resp 18 01/27/22 14:58 BP 100/70 01/27/22 14:58 Pulse Ox 96 01/27/22 14:58 O2 Del Method 01/27/22 14:58 O2 Flow Rate 99 01/24/22 10:06 Intake & Output 01/26/22 01/27/22 01/27/22 18:59 06:59 18:59 Intake Total 352 / 1072 720 / 1072 470 / 470 Output Total 400 / 400 Balance 352 / 672 320 / 672 470 / 470 Urine Output (Average ml/kg/hr) 0.36 0.36 Intake: Intake, Oral Amount 720 / 720 420 / 420 Intake (Blood Product) Amount 252 / 252 Plt Aph Pas Pathreduced(E9139) 252 / 252 Unit [id number] Intake, IV Amount 100 / 100 50 / 50 Fluconazole in NaCl,Iso-Osm 200 100 / 100 mg In 100 ml @ 100 mls/hr IV ONCE ONE Rx#:[id number] Fluconazole in NaCl,Iso-Osm 100 50 / 50 mg In Container,Empty 0 ml @ 50 mls/hr IV Q24H [facility] Rx#: [id number] Output: Output, Urine Amount 400 / 400 Other: Number of Unmeasured Voids 1 1 Urine Bedside Commode Bedside Commode Urine Color Yellow Yellow Last Bowel Movement 01/19/22 01/27/22 Weight 91.6 kg BMI result Body Mass Index 31.6 - Constitutional Present: no acute distress, mild distress - Routine HEENT Exam Head: Present: atraumatic - Routine Neck Exam Present: full ROM - Routine Respiratory Exam Present: decreased breath sounds - Routine Cardiovascular Exam Cardiovascular: Present: RRR - Routine Abdominal Exam Present: diminished bowel sounds - Routine Extremities Exam Present: full ROM, nontender - Routine Back/Spine/Pelvis Exam Back/Spine: Present: no CVA tenderness - Routine Skin Exam Present: intact - Routine Neurological Exam Present: alert, oriented X3 Data - Labs CBC & Chem 7: 01/27/22 05:37 01/27/22 05:37 - Imaging Radiologist's impression: ITS Impressions Chest X-Ray 01/24/22 11:02 IMPRESSION: Surgical changes right parahilar region left midlung. There are increased bilateral interstitial markings likely chronic changes. No acute consolidation. Chest CTA 01/24/22 12:46 IMPRESSION: No pulmonary embolism. Post surgical changes of right upper lobectomy and left upper lobe wedge resection with similar surrounding groundglass pulmonary nodules within compared to prior. Resolution of trace left pleural effusion with stable small right pleural effusion. Similar sclerotic osseous lesions raising the suspicion for osseous metastases and stable thoracic wedge compression deformities. VTE: negative Assessment and Plan Patient Active problem list reviewed?: Yes (1) Pancytopenia Status: Acute Assessment and plan: 1. This is a pleasant 61-year-old woman with metastatic non-small cell lung cancer who is currently receiving chemotherapy admitted for severe pancytopenia and oral thrush. Her blood cultures so far are negative. She is on neutropenic precautions. She has been receiving nystatin but she has persistent thrush and odynophagia. She is on IV fluconazole 100 mg daily for at least 3 days. S/p platelet transfusions. She received 3 doses of Granix 300 mcg q.d.. She has remained afebrile and blood cultures are negative. COPD appears to be under control at this time. Continue to monitor daily CBC with differential. - Time Spent With Patient Time Spent with Patient (in minutes): 10
[2022-01-28] VITALS (12 sets, daily range): BP systolic 112–141; BP diastolic 73–99; PULSE 81–99; RESP 17–18; TEMP 36.1–36.8; O2SAT 92–98
[2022-01-28] MEDS: Mag&Al/Sim/Diphenhyd/Lidocaine 10 ML ORAL.SUSP PO ×3 (03:14→19:44)
[2022-01-28] MEDS: Omeprazole 20 MG CAPSULE.DR PO (05:15)
[2022-01-28 07:55] LABS: Mean Corpuscular HGB Conc 34.8 g/dl (31.0-35.0); Mean Corpuscular Hemoglobin 29.7 pg (27.0-33.0); Mean Corpuscular Volume 85.5 fL (80.0-98.0); Mean Platelet Volume 12.9 fL (9.4-12.3); Red Blood Count 2.69 X10*6/uL (4.20-5.50); Red Cell Distribution Width 15.9 % (11.0-16.0)
[2022-01-28 08:19] LABS: Platelet Count 5 X10*3/uL (160-400)
[2022-01-28 08:20] LABS: Alanine Aminotransferase 28 U/L (0-31); Albumin Level 3.1 g/dL (3.5-5.0); Alkaline Phosphatase 47 U/L (39-117); Anion Gap 18 (12-20); Aspartate Amino Transferase 26 U/L (5-31); Bilirubin Direct 0.2 mg/dL (0.0-0.5); Bilirubin Total 0.6 mg/dL (0.0-1.0); Blood Urea Nitrogen 45 mg/dL (9-16); Calcium 7.7 mg/dL (8.4-10.2); Carbon Dioxide 24 mmol/L (22-29); Chloride 101 mmol/L (96-108); Creatinine Clr Calc Pharmacy 78.9; Estimated Glomerular Filt Rate > 60; Glucose Fasting 110 mg/dL (60-99); Magnesium 1.8 mg/dL (1.6-2.6); Sodium 139 mmol/L (135-145); Total Protein 6.2 g/dL (6.5-8.0)
[2022-01-28] MEDS: Folic Acid 1 MG TABLET PO (10:44)
[2022-01-28] MEDS: Buprenorphine/Naloxone 4/1 mg FILM 1 FILM SUBLINGUAL (10:44)
[2022-01-28] MEDS: Metoprolol Tartrate 50 MG TABLET PO (10:44)
[2022-01-28] MEDS: PARoxetine HCL 30 MG TABLET 60 MG PO (10:45)
[2022-01-28] MEDS: dilTIAZem HCL CD 180 MG CAP.ER.24H PO (10:45)
[2022-01-28] MEDS: Magnesium Oxide 400 MG TABLET PO ×2 (10:46→17:57)
[2022-01-28] MEDS: predniSONE 20 MG TABLET 40 MG PO (10:46)
[2022-01-28] MEDS: hydroCHLOROthiazide 25 MG TABLET PO (10:46)
[2022-01-28] MEDS: 0.9 % Sodium Chloride Flush 3 ML SYRINGE IVFLUSH ×2 (10:47→14:45)
[2022-01-28] MEDS: Fluconazole in NaCl,Iso-Osm 100 MG in Container,Empty 0 ML 50 MG IV (14:45)
--- NOTE | 2022-01-28 14:54 | HO.PM.IMPN ---
Subjective Subjective Date of Service: 01/28/22 Interval History: the patient was seen and evaluated this morning Laying in bed, feels better overall but still feeling weak Complaining of throat pain upon swallowing Denies any fever, chills or shortness of breath No reported other overnight events. Systemic review: No fever, chills but has generalized weakness No chest pain, palpitation No shortness of breath or coughing No abdominal pain, nausea or vomiting No urinary symptoms Physical Exam Vital Signs: Vital Signs: Last Vital Signs Temp 97.8 F 01/28/22 14:30 Pulse 83 01/28/22 14:30 Resp 18 01/28/22 14:30 BP 122/99 H 01/28/22 14:30 Pulse Ox 92 01/28/22 12:00 O2 Del Method 01/28/22 12:00 O2 Flow Rate 99 01/24/22 10:06 BMI result Body Mass Index 31.6 Const: Other: Constitutional : Alert, oriented, not in distress Neck : Normal inspection, Supple Cardiovascular : RRR, no JVP, no lower extremity edema Respiratory :? Decreased bilateral air entry,? basal bilateral fine crackles, bilateral rhonchi Gastrointestinal:? soft, lax, Normal bowel sounds, Non tender Skin : Warm, Dry Neurological : Alert & oriented x3, No focal deficit Objective Data Active Medications Acetaminophen (Acetaminophen 325 Mg Tablet) 650 mg PO Q6H PRN PRN Reason: Pain, Mild (Pain Scale 1-3) Last Admin: 01/27/22 15:18 Dose: 650 mg Documented By: IVAN Buprenorphine/Naloxone (Buprenorphine/Naloxone 4/1 Mg Film) 1 film SUBLINGUAL DAILY [facility] Last Admin: 01/28/22 10:44 Dose: 1 film Documented By: KVNG Diltiazem HCl (Diltiazem Hcl Cd 180 Mg Cap.Er.24h) 180 mg PO DAILY [facility]; Protocol Last Admin: 01/28/22 10:45 Dose: 180 mg Documented By: KVNG Docusate Sodium (Docusate Sodium 100 Mg Capsule) 100 mg PO BEDTIME PRN PRN Reason: Constipation Last Admin: 01/27/22 15:18 Dose: 100 mg Documented By: IVAN Folic Acid (Folic Acid 1 Mg Tablet) 1 mg PO DAILY [facility] Last Admin: 01/28/22 10:44 Dose: 1 mg Documented By: KVNG Hydrochlorothiazide (Hydrochlorothiazide 25 Mg Tablet) 25 mg PO DAILY [facility] Last Admin: 01/28/22 10:46 Dose: 25 mg Documented By: KVNG Fluconazole 100 mg/ IV (Miscellaneous Supplies) 50 mls @ 50 mls/hr IV Q24H [facility] Last Admin: 01/28/22 14:45 Dose: 50 mls/hr Documented By: AMELIA Lidocaine/Diphenhydr/Alum/Mg/Simeth (Mag&Al/Sim/Diphenhyd/Lidocaine 10 Ml Oral.Susp) 10 ml PO Q4H PRN; Protocol PRN Reason: sore throat Last Admin: 01/28/22 03:14 Dose: 10 ml Documented By: ANTOIC Magnesium Oxide (Magnesium Oxide 400 Mg Tablet) 400 mg PO BIDPC [facility] Last Admin: 01/28/22 10:46 Dose: 400 mg Documented By: KVNG Metoprolol Tartrate (Metoprolol Tartrate 50 Mg Tablet) 50 mg PO DAILY [facility] Last Admin: 01/28/22 10:44 Dose: 50 mg Documented By: KVNG Pt Own Med ( Milnacipran [Savella ] 50 Mg Tablet) 50 mg PO BID [facility] Last Admin: 01/28/22 10:46 Dose: 50 mg Documented By: KVNG Omeprazole (Omeprazole 20 Mg Capsule.Dr) 20 mg PO DAILY@0630 [facility] Last Admin: 01/28/22 05:15 Dose: 20 mg Documented By: PAMELA Paroxetine HCl (Paroxetine Hcl 30 Mg Tablet) 60 mg PO DAILY [facility] Last Admin: 01/28/22 10:45 Dose: 60 mg Documented By: KVNG Pharmacy Consult (Consult Rx Perform Med Rec) 1 each MISCELLANE ONCE PRN PRN Reason: Consult order Prednisone (Prednisone 20 Mg Tablet) 40 mg PO DAILY [facility] Last Admin: 01/28/22 10:46 Dose: 40 mg Documented By: KVNG Sodium Chloride (0.9 % Sodium Chloride Flush 3 Ml Syringe) 3 ml IVFLUSH QSHIFT [facility] Last Admin: 01/28/22 14:45 Dose: 3 ml Documented By: AMELIA Labs CBC & Chem 7: 01/28/22 07:25 01/28/22 07:25 Labs: Laboratory Results - last 24 hr 01/28/22 01/28/22 01/28/22 07:25 07:25 09:14 MCV 85.5 MCH 29.7 MCHC 34.8 RDW 15.9 Plt Count 5 L* MPV 12.9 H Absolute Nucleated RBC 0.000 Nucleated RBC % (auto) 0.0 Anion Gap 18 Estim Creat Clear Calc 78.9 Estimated GFR > 60 Fasting Glucose 110 H Calcium 7.7 L Magnesium 1.8 Total Bilirubin 0.6 Direct Bilirubin 0.2 AST 26 D ALT 28 Alkaline Phosphatase 47 Total Protein 6.2 L Albumin 3.1 L Blood Type A Positive Antibody Screen NEGATIVE Assessment and Plan (1) Pancytopenia: Status: Acute (2) New onset a-fib: Status: Acute (3) Oral thrush: Status: Acute (4) Symptomatic anemia: Status: Acute Plan 61F with pmh NSCLC on chemotherapy, breast cancer, depression, HCV, HTN, COPD, opiate dependence presented with sob and odynophagia found to have worsening pancytopenia and new onset afib with rvr new onset afib with rvr Rate fairly controlled between 80-100 Increase Cardizem XL to 240, decrease metoprolol to 25 mg, try to keep the patient will medication only no AC due to thrombocytopenia Keep on tele pancytopenia due to chemotherapy in pateint with NSCLC Hb of 8, PLT 0 5 tbo-filgastrim 300 daily until wbc >1000 oncology following s/p 1 unit plt 10/15, and 1 unit platelets 10/17. 2 units on 01 28 s/p 2 unit prbc 10/15 hgb stable monitor cbc oral thrush Continue iv diflucan Hypokalemia Potassium of 2.8 replaced Follow BMP COPD bronchodilators as needed depression paxil full code reason for continued hospitalization:significant pancytopenia requiring close monitoring and transfusions Quality Stroke Does the patient have a stroke diagnosis?: No VTE Prior VTE?: No VTE Risk Level:: Medical - low VTE Device Contraindication: Treatment Not Indicated VTE Drug Contraindication: Treatment Not Indicated
[2022-01-29] MEDS: Mag&Al/Sim/Diphenhyd/Lidocaine 10 ML ORAL.SUSP PO ×5 (00:04→20:40)
[2022-01-29] MEDS: 0.9 % Sodium Chloride Flush 3 ML SYRINGE IVFLUSH ×3 (00:04→17:33)
[2022-01-29 03:38] VITALS: BP 115/84; PULSE 81; RESP 16; TEMP 36.4; O2SAT 93
[2022-01-29] MEDS: Omeprazole 20 MG CAPSULE.DR PO (06:11)
[2022-01-29 07:11] LABS: Hematocrit 23.3 % (37.0-47.0); Mean Corpuscular HGB Conc 34.3 g/dl (31.0-35.0); Mean Corpuscular Hemoglobin 30.4 pg (27.0-33.0); Mean Corpuscular Volume 88.6 fL (80.0-98.0); Mean Platelet Volume 10.5 fL (9.4-12.3); Red Blood Count 2.63 X10*6/uL (4.20-5.50); Red Cell Distribution Width 16.1 % (11.0-16.0)
[2022-01-29 07:34] VITALS: BP 147/98; PULSE 89; RESP 16; TEMP 36.5; O2SAT 92
[2022-01-29 07:37] LABS: Platelet Count 32 X10*3/uL (160-400)
[2022-01-29 07:46] LABS: Anion Gap 22 (12-20); Blood Urea Nitrogen 34 mg/dL (9-16); Calcium 8.4 mg/dL (8.4-10.2); Carbon Dioxide 24 mmol/L (22-29); Chloride 99 mmol/L (96-108); Creatinine Clr Calc Pharmacy 89.1; Estimated Glomerular Filt Rate > 60; Glucose Random 84 mg/dL (60-115); Potassium 3.9 mmol/L (3.3-5.1); Sodium 141 mmol/L (135-145)
[2022-01-29] MEDS: PARoxetine HCL 30 MG TABLET 60 MG PO (08:50)
--- NOTE | 2022-01-29 08:50 | P.CDIC_ITS ---
CDI Concurrent Query Documentation Clarification: PHYSICIAN'S DOCUMENTATION REQUEST Date of Query: 01/29/22 0850 Patient Name: Elida Schumacher Admit Date: 01/24/22 Dear Doctor, A review of the medical record indicates additional documentation may be needed. Please review below and update the documentation accordingly. Clinical Indicators: Risk Factors/Clinical Indicators/Treatments PMH - CHF, diastolic Home medication: Furosemide 20mg PO Daily. Please provide further specificity regarding the most likely type and acuity of CHF you are evaluating, treating, or monitoring. Examples include: Type: * Systolic * Diastolic * Combined Systolic/Diastolic * Other ? please specify * Unable to determine Acuity: * Chronic * Acute on chronic * Unable to determine Use of terms such as suspected, likely, concern for, or probable (associated with a specific diagnosis that is being evaluated, monitored, or treated as if it exists) are acceptable and can be coded in the inpatient setting, when documented at the time of discharge. Thank you, Jackelin Moreno [facility], CDIS Extension: [phone] Please use your independent medical judgment in providing your response. THIS QUERY IS PART OF THE PERMANENT MEDICAL RECORD Provider Response: Other Other Diagnosis: Chronic diastolic CHF with no exacerbation
[2022-01-29] MEDS: dilTIAZem HCL CD 240 MG CAP.ER.DEG PO (08:51)
[2022-01-29] MEDS: hydroCHLOROthiazide 25 MG TABLET PO (08:51)
[2022-01-29] MEDS: Folic Acid 1 MG TABLET PO (08:51)
[2022-01-29] MEDS: Buprenorphine/Naloxone 4/1 mg FILM 1 FILM SUBLINGUAL (08:51)
[2022-01-29] MEDS: Magnesium Oxide 400 MG TABLET PO ×2 (08:51→17:34)
[2022-01-29] MEDS: Metoprolol Tartrate 25 MG TABLET PO (08:51)
[2022-01-29] MEDS: predniSONE 20 MG TABLET 40 MG PO (08:51)
--- NOTE | 2022-01-29 10:29 | HO.PM.IMPN ---
Subjective Subjective Date of Service: 01/29/22 Interval History: the patient was seen and evaluated this morning Laying in bed, feels better overall but still feeling weak Complaining of throat pain upon swallowing Denies any fever, chills or shortness of breath No reported other overnight events. Systemic review: No fever, chills but has generalized weakness No chest pain, palpitation No shortness of breath or coughing No abdominal pain, nausea or vomiting No urinary symptoms Physical Exam Vital Signs: Vital Signs: Last Vital Signs Temp 97.7 F 01/29/22 07:34 Pulse 89 01/29/22 07:34 Resp 16 01/29/22 07:34 BP 147/98 H 01/29/22 07:34 Pulse Ox 92 01/29/22 07:34 O2 Del Method 01/29/22 07:34 O2 Flow Rate 99 01/24/22 10:06 BMI result Body Mass Index 31.6 Const: Other: Constitutional : Alert, oriented, not in distress Neck : Normal inspection, Supple Cardiovascular : RRR, no JVP, no lower extremity edema Respiratory :? Decreased bilateral air entry,? basal bilateral fine crackles, bilateral rhonchi Gastrointestinal:? soft, lax, Normal bowel sounds, Non tender Skin : Warm, Dry Neurological : Alert & oriented x3, No focal deficit Objective Data Active Medications Acetaminophen (Acetaminophen 325 Mg Tablet) 650 mg PO Q6H PRN PRN Reason: Pain, Mild (Pain Scale 1-3) Last Admin: 01/27/22 15:18 Dose: 650 mg Documented By: IVAN Buprenorphine/Naloxone (Buprenorphine/Naloxone 4/1 Mg Film) 1 film SUBLINGUAL DAILY [facility] Last Admin: 01/29/22 08:51 Dose: 1 film Documented By: MARTHA Diltiazem HCl (Diltiazem Hcl Cd 240 Mg Cap.Er.Deg) 240 mg PO DAILY [facility]; Protocol Last Admin: 01/29/22 08:51 Dose: 240 mg Documented By: MARTHA Docusate Sodium (Docusate Sodium 100 Mg Capsule) 100 mg PO BEDTIME PRN PRN Reason: Constipation Last Admin: 01/27/22 15:18 Dose: 100 mg Documented By: IVAN Folic Acid (Folic Acid 1 Mg Tablet) 1 mg PO DAILY [facility] Last Admin: 01/29/22 08:51 Dose: 1 mg Documented By: MARTHA Hydrochlorothiazide (Hydrochlorothiazide 25 Mg Tablet) 25 mg PO DAILY [facility] Last Admin: 01/29/22 08:51 Dose: 25 mg Documented By: MARTHA Fluconazole 100 mg/ IV (Miscellaneous Supplies) 50 mls @ 50 mls/hr IV Q24H [facility] Last Infusion: 01/28/22 15:46 Dose: 0 mls/hr Documented By: AMELIA Lidocaine/Diphenhydr/Alum/Mg/Simeth (Mag&Al/Sim/Diphenhyd/Lidocaine 10 Ml Oral.Susp) 10 ml PO Q4H PRN; Protocol PRN Reason: sore throat Last Admin: 01/29/22 06:12 Dose: 10 ml Documented By: CHINO Magnesium Oxide (Magnesium Oxide 400 Mg Tablet) 400 mg PO BIDPC [facility] Last Admin: 01/29/22 08:51 Dose: 400 mg Documented By: MARTHA Metoprolol Tartrate (Metoprolol Tartrate 25 Mg Tablet) 25 mg PO DAILY [facility] Last Admin: 01/29/22 08:51 Dose: 25 mg Documented By: MARTHA Pt Own Med ( Milnacipran [Savella ] 50 Mg Tablet) 50 mg PO BID [facility] Last Admin: 01/29/22 08:50 Dose: 50 mg Documented By: MARTHA Omeprazole (Omeprazole 20 Mg Capsule.Dr) 20 mg PO DAILY@0630 [facility] Last Admin: 01/29/22 06:11 Dose: 20 mg Documented By: CHINO Paroxetine HCl (Paroxetine Hcl 30 Mg Tablet) 60 mg PO DAILY [facility] Last Admin: 01/29/22 08:50 Dose: 60 mg Documented By: MARTHA Pharmacy Consult (Consult Rx Perform Med Rec) 1 each MISCELLANE ONCE PRN PRN Reason: Consult order Prednisone (Prednisone 20 Mg Tablet) 40 mg PO DAILY [facility] Last Admin: 01/29/22 08:51 Dose: 40 mg Documented By: MARTHA Sodium Chloride (0.9 % Sodium Chloride Flush 3 Ml Syringe) 3 ml IVFLUSH QSHIFT [facility] Last Admin: 01/29/22 09:05 Dose: 3 ml Documented By: MARTHA Labs CBC & Chem 7: 01/29/22 06:45 01/29/22 06:45 Labs: Laboratory Results - last 24 hr 01/28/22 01/29/22 01/29/22 09:14 06:45 06:45 MCV 88.6 MCH 30.4 MCHC 34.3 RDW 16.1 H Plt Count 32 L D MPV 10.5 Absolute Nucleated RBC 0.000 Nucleated RBC % (auto) 0.0 Anion Gap 22 H Estim Creat Clear Calc 89.1 Estimated GFR > 60 Random Glucose 84 Calcium 8.4 D Blood Type A Positive Antibody Screen NEGATIVE Assessment and Plan (1) Pancytopenia: Status: Acute (2) New onset a-fib: Status: Acute Plan 61F with pmh NSCLC on chemotherapy, breast cancer, depression, HCV, HTN, COPD, opiate dependence presented with sob and odynophagia found to have worsening pancytopenia and new onset afib with rvr new onset afib with rvr Rate fairly controlled between 80-100 Increase Cardizem XL to 240, decrease metoprolol to 25 mg, try to keep the patient will medication only no AC due to thrombocytopenia Pending cardiology evaluation Keep on tele pancytopenia due to chemotherapy in pateint with NSCLC Hb of 8, PLT 32 tbo-filgastrim 300 daily to hold as wbc >1000 oncology following s/p 1 unit plt 10/15, and 1 unit platelets /17. 2 units on 01 28 s/p 2 unit prbc 10/15 hgb stable monitor cbc oral thrush Continue iv diflucan Magic mouthwash Hypokalemia Resolved Follow BMP COPD bronchodilators as needed depression paxil full code reason for continued hospitalization:significant pancytopenia requiring close monitoring and transfusions Quality Stroke Does the patient have a stroke diagnosis?: No VTE Prior VTE?: No VTE Risk Level:: Medical - low VTE Device Contraindication: Treatment Not Indicated VTE Drug Contraindication: Treatment Not Indicated
[2022-01-29 12:00] VITALS: BP 131/78; PULSE 101; RESP 20; TEMP 36.7; O2SAT 95
[2022-01-29] MEDS: Fluconazole in NaCl,Iso-Osm 100 MG in Container,Empty 0 ML 50 MG IV (12:26)
--- NOTE | 2022-01-29 13:39 | PM.CNCAR ---
History of Present Illness History of Present Illness Date of Service: 01/29/22 Requesting physician: Sinan Leon Chief complaint: afib, panctypenia Narrative: 61-year-old female who just finished chemotherapy for lung cancer. She is presenting with sore throat and thrush. Also noticed to be in AFib. Denying any symptoms from atrial fibrillation currently. Denying in particular no chest pain, shortness of breath more than usual or palpitations. She has shortness of breath at baseline and feels that her breathing is as it is usually. She has pancytopenia. [facility] Past Medical History Medical History Bilateral lung cancer Cancer of upper lobe of left lung (~2020) Cancer of upper lobe of right lung (~2019) COPD (chronic obstructive pulmonary disease) Depression GERD (gastroesophageal reflux disease) History of breast cancer (~2006) History of hepatitis C HTN (hypertension) Internal and external bleeding hemorrhoids Obesity Pulmonary nodules Smoker Tubular adenoma of colon Family History Family History Mother History of lung cancer Brother History of lung cancer Maternal Grandmother Breast cancer in female Maternal Aunt Breast cancer in female Daughter Thyroid cancer Surgical History Surgical History History of anterior colporrhaphy (~2016) History of back surgery (~2011) History of colonoscopy (~2014) History of hemorrhoidectomy (~2019) History of lobectomy of lung (~2019) History of lumpectomy of right breast (~2006) History of lung surgery (~2020) History of tubal ligation Social History Social History Household Members: Significant Other Housing: Apartment Are you a primary resident care aid to a significant other at home: No Do you presently have visiting nurse or other home services: No Alcohol intake: never Patient Tobacco Use Status: Never used Tobacco Tobacco use type: Cigar Years Smoked: 46 Second Hand Smoke Exposure: No Substance Use Type: Marijuana service: No Current occupational status: disabled Current occupational exposures/hazards: No Meds Allergies Allergy/AdvReac Type Severity Reaction Status Date / Time lisinopril [LISINOPRIL] Allergy Severe SWELLING- Verified 10/06/22 12:39 ANGIOEDEMA codeine [CODEINE] Allergy Intermediate VOMITING/HIVES, Verified 01/15/22 12:39 vomiting, hives Active Medications: Current Medications Acetaminophen (Acetaminophen 325 Mg Tablet) 650 mg PO Q6H PRN PRN Reason: Pain, Mild (Pain Scale 1-3) Last Admin: 01/27/22 15:18 Dose: 650 mg Buprenorphine/Naloxone (Buprenorphine/Naloxone 4/1 Mg Film) 1 film SUBLINGUAL DAILY [facility] Last Admin: 01/29/22 08:51 Dose: 1 film Diltiazem HCl (Diltiazem Hcl Cd 240 Mg Cap.Er.Deg) 240 mg PO DAILY [facility]; Protocol Last Admin: 01/29/22 08:51 Dose: 240 mg Docusate Sodium (Docusate Sodium 100 Mg Capsule) 100 mg PO BEDTIME PRN PRN Reason: Constipation Last Admin: 01/27/22 15:18 Dose: 100 mg Folic Acid (Folic Acid 1 Mg Tablet) 1 mg PO DAILY [facility] Last Admin: 01/29/22 08:51 Dose: 1 mg Hydrochlorothiazide (Hydrochlorothiazide 25 Mg Tablet) 25 mg PO DAILY [facility] Last Admin: 01/29/22 08:51 Dose: 25 mg Fluconazole 100 mg/ IV (Miscellaneous Supplies) 50 mls @ 50 mls/hr IV Q24H [facility] Last Admin: 01/29/22 12:26 Dose: 50 mls/hr Lidocaine/Diphenhydr/Alum/Mg/Simeth (Mag&Al/Sim/Diphenhyd/Lidocaine 10 Ml Oral.Susp) 10 ml PO Q4H PRN; Protocol PRN Reason: sore throat Last Admin: 01/29/22 12:27 Dose: 10 ml [facility] ([facility] Last Admin: 01/29/22 08:51 Dose: 400 mg Metoprolol Tartrate (Metoprolol Tartrate 25 Mg Tablet) 25 mg PO DAILY [facility] Last Admin: 01/29/22 08:51 Dose: 25 mg Pt Own Med ( Milnacipran [Savella ] 50 Mg Tablet) 50 mg PO BID [facility] Last Admin: 01/29/22 08:50 Dose: 50 mg Omeprazole (Omeprazole 20 Mg Capsule.Dr) 20 mg PO DAILY@0630 [facility] Last Admin: 01/29/22 06:11 Dose: 20 mg Paroxetine HCl (Paroxetine Hcl 30 Mg Tablet) 60 mg PO DAILY [facility] Last Admin: 01/29/22 08:50 Dose: 60 mg Pharmacy Consult (Consult Rx Perform Med Rec) 1 each MISCELLANE ONCE PRN PRN Reason: Consult order Prednisone (Prednisone 20 Mg Tablet) 40 mg PO DAILY [facility] Last Admin: 01/29/22 08:51 Dose: 40 mg Sodium Chloride (0.9 % Sodium Chloride Flush 3 Ml Syringe) 3 ml IVFLUSH QSHIFT [facility] Last Admin: 01/29/22 09:05 Dose: 3 ml Home Medications Medication Instructions Recorded Confirmed Last Taken Type buprenorphine 4 mg-naloxone 1 mg 1 strip sublingual DAILY 01/18/22 01/24/22 01/21/22 History sublingual film (Suboxone) diltiazem HCl 180 mg 180 mg PO DAILY 01/18/22 01/24/22 01/21/22 History capsule,extended release 24 hr, controlled (DILT-XR) docusate sodium 100 mg capsule 1 cap PO BEDTIME PRN Constipation 01/18/22 01/24/22 Unknown History folic acid 1 mg tablet 1 mg PO DAILY 01/18/22 01/24/22 01/21/22 History metoprolol tartrate 50 1 tab PO DAILY 01/18/22 01/24/22 01/21/22 History mg-hydrochlorothiazide 25 mg tablet milnacipran 50 mg tablet (Savella) 50 mg PO BID 01/18/22 01/24/22 01/21/22 History omeprazole 20 mg capsule,delayed 20 mg PO DAILY@0630 01/18/22 01/24/22 01/21/22 History release paroxetine HCl 20 mg tablet 60 mg PO DAILY 01/18/22 01/24/22 01/21/22 History umeclidinium 62.5 mcg-vilanterol 1 puff inhalation DAILY 01/18/22 01/24/22 01/21/22 History 25 mcg/actuation powdr for inhalation (Anoro Ellipta) Physical Exam Vital Signs: Vital Signs: Last Vital Signs Temp 98.1 F 01/29/22 12:00 Pulse 101 H 01/29/22 12:00 Resp 20 01/29/22 12:00 BP 131/78 01/29/22 12:00 Pulse Ox 95 01/29/22 12:00 O2 Del Method 01/29/22 12:00 O2 Flow Rate 99 01/24/22 10:06 BMI result Body Mass Index 31.6 GENERAL APPEARANCE: in no acute distress, pleasant. NECK: no carotid bruit, no jugular venous distention. SKIN: no suspicious lesions, warm and dry. HEART: no murmurs, irregular rate and rhythm. LUNGS: clear to auscultation bilaterally. ABDOMEN: soft, nontender. EXTREMITIES: no edema. PERIPHERAL PULSES: equal. NEUROLOGIC: No gross deficits, AAO X 3 Objective Labs and Meds Result diagrams: 01/29/22 06:45 01/29/22 06:45 Lab results: Laboratory Results - last 24 hr 01/28/22 01/29/22 01/29/22 09:14 06:45 06:45 WBC 2.0 L RBC 2.63 L Hgb 8.0 L Hct 23.3 L MCV 88.6 MCH 30.4 MCHC 34.3 RDW 16.1 H Plt Count 32 L D MPV 10.5 Absolute Nucleated RBC 0.000 Nucleated RBC % (auto) 0.0 Sodium 141 Potassium 3.9 Chloride 99 Carbon Dioxide 24 Anion Gap 22 H BUN 34 H Creatinine 0.77 Estim Creat Clear Calc 89.1 Estimated GFR > 60 Random Glucose 84 Calcium 8.4 D Blood Type A Positive Antibody Screen NEGATIVE Assessment and Plan (1) Pancytopenia: Status: Acute (2) New onset a-fib: Status: Acute Plan Pleasant 61-year-old female with pancytopenia secondary to chemotherapy for lung cancer. She has new onset atrial fibrillation. Not symptomatic. Agree with rate control. Cannot start anticoagulation because she is pancytopenic and her platelet counts are 32,000. she has finished chemotherapy and hopefully her blood counts will improve soon. with recovery in her platelet count I think anticoagulation can be Started. Thank you for allowing me to participate in the care of your patient. Please feel free to contact me if you have any questions. Procedures Date of Service Date of Service: 01/29/22
[2022-01-29 15:22] VITALS: BP 149/69; PULSE 98; RESP 16; TEMP 36.6; O2SAT 96
[2022-01-29 18:47] VITALS: BP 134/76; PULSE 85; RESP 16; TEMP 35.7; O2SAT 96
[2022-01-29 23:39] VITALS: BP 139/84; PULSE 87; RESP 18; TEMP 36.6; O2SAT 93
[2022-01-30] MEDS: 0.9 % Sodium Chloride Flush 3 ML SYRINGE IVFLUSH ×2 (01:13→08:40)
[2022-01-30] MEDS: Mag&Al/Sim/Diphenhyd/Lidocaine 10 ML ORAL.SUSP PO ×2 (01:33→06:18)
[2022-01-30 02:54] VITALS: BP 138/87; PULSE 99; RESP 17; TEMP 36.1; O2SAT 96
[2022-01-30] MEDS: Omeprazole 20 MG CAPSULE.DR PO (05:48)
[2022-01-30] MEDS: Acetaminophen 325 MG TABLET 650 MG PO (05:48)
[2022-01-30 07:04] LABS: Hematocrit 22.1 % (37.0-47.0); Hemoglobin 7.7 g/dl (12.0-16.0); Mean Corpuscular HGB Conc 34.8 g/dl (31.0-35.0); Red Blood Count 2.57 X10*6/uL (4.20-5.50); White Blood Count 3.2 X10*3/uL (4.8-10.8)
[2022-01-30 07:05] LABS: Mean Platelet Volume 10.2 fL (9.4-12.3)
[2022-01-30 07:17] LABS: Platelet Count 22 X10*3/uL (160-400)
[2022-01-30 07:48] VITALS: BP 142/74; PULSE 97; RESP 18; TEMP 36.6; O2SAT 96
[2022-01-30] MEDS: Buprenorphine/Naloxone 4/1 mg FILM 1 FILM SUBLINGUAL (08:40)
[2022-01-30] MEDS: Folic Acid 1 MG TABLET PO (08:41)
[2022-01-30] MEDS: hydroCHLOROthiazide 25 MG TABLET PO (08:41)
[2022-01-30] MEDS: dilTIAZem HCL CD 240 MG CAP.ER.DEG PO (08:42)
[2022-01-30] MEDS: PARoxetine HCL 30 MG TABLET 60 MG PO (08:42)
[2022-01-30] MEDS: predniSONE 20 MG TABLET 40 MG PO (08:42)
[2022-01-30] MEDS: Metoprolol Tartrate 25 MG TABLET PO (08:42)
[2022-01-30] MEDS: Magnesium Oxide 400 MG TABLET PO (08:42)
--- NOTE | 2022-01-30 12:29 | MHC.CM.PN ---
Patient has been medically cleared for dc to home today, self care.
--- NOTE | 2022-01-30 12:34 | P.DS_ITS ---
DS: Providers Provider Date of Service: 01/30/22 Date of admission: 01/24/22 14:42 Primary care physician: Daphne Rodriguez MD Consults: 01/29/22 07:56 Consult to Cardiology Routine Consulting Provider: Rc Roberts Reason for consultation: new onset Afib, pancytopenia for eval and est of care. DS: Diagnosis Discharge Diagnosis (1) Pancytopenia: Status: Acute (2) New onset a-fib: Status: Acute (3) Oral thrush: Status: Acute (4) Symptomatic anemia: Status: Acute (5) Hypokalemia: Status: Acute (6) Hypocalcemia: Status: Acute DS: Summary Hospital Course Hospital Course: Admission note HPI 61F with pmh NSCLC on chemotherapy, breast cancer, depression, HCV, HTN, COPD, opiate dependence presented with sob. patient was discharged from [facility] 01/21/22 after admisison for acute on chronic diastolic chf. since discharge patient complaining of worsening odynophagia and inability to swallow. she reports increased weakness and sob. denies fever, chest pain, palpitations. in ED noted to have worsening pancytopenia with wbc 0.3, hgb 7.8, platelet 7. no obvious bleeding. noted to be in afib with rvr, no known history of afib. Hospital course The patient to the hospital for evaluation of pancytopenia secondary to chemotherapy. The patient presented with hemoglobin of 7.8 and platelets of 7 with no active bleeding. received 2 units of blood and 4 units of platelets with good response over the course of hospital stay as TPO-filgastrim was given until WBCs picked up above 1000 S the patient was evaluated by Oncology team. Hemoglobin of 7.7 and the day of discharge with platelets of 22. Noted to have new onset atrial fibrillation which is fairly controlled with both Cardizem and metoprolol combination. Evaluated by Cardiology team recommended to hold on any anticoagulation at this point given the patient's Alcides Vasc score of 2 but low platelet count recommended to follow-up as outpatient once platelet count recovers. Complaining of odynophagia at time of admission. Found to have oral thrush. Treated with IV Diflucan. To be discharged home on oral Diflucan to finish total 2 weeks of treatment. To repeat blood work as outpatient Start magnesium supplement Magic mouthwash as needed Continue Diflucan as prescribed To follow-up with Cardiology once your platelet improve to consider starting blood thinners To follow-up with oncologist as outpatient. Time Spent with Patient Time attestation: Total time spent providing and/or coordinating discharge services: Discharge coordination time: Greater than 30 minutes Quality: Safe Use of Opioids Does Pt have an Active Cancer Diagnosis on the Problem List?: Yes Opioid Measure Date for [facility] Report: 12/31/21 Opioid Measure Time for [facility] Report: 12:41 Quality: Stroke Does the patient have a stroke diagnosis?: No Physical Exam Vital Signs: Vital Signs: Last Vital Signs Temp 98 F 01/30/22 07:48 Pulse 97 01/30/22 07:48 Resp 18 01/30/22 07:48 BP 142/74 H 01/30/22 07:48 Pulse Ox 96 01/30/22 07:48 O2 Del Method 01/30/22 07:48 O2 Flow Rate 99 01/24/22 10:06 BMI result Body Mass Index 31.6 Const: Other: Constitutional : Alert, oriented, not in distress Neck : Normal inspection, Supple Cardiovascular : RRR, no JVP, no lower extremity edema Respiratory :? Decreased bilateral air entry,? no crackles or wheezing Gastrointestinal:? soft, lax, Normal bowel sounds, Non tender Skin : Warm, Dry Neurological : Alert & oriented x3, No focal deficit DS: Data Data Completed and Pending Completed studies during hospitalization [Text1]: Procedures Transfusion of Nonautologous Platelets into Peripheral Vein, Percutaneous Approach (01/07/22) Transfusion of Nonautologous Red Blood Cells into Peripheral Vein, Percutaneous Approach (01/18/22) Labs on day of discharge: Laboratory Results - last 24 hr 01/30/22 06:56 WBC 3.2 L RBC 2.57 L Hgb 7.7 L Hct 22.1 L MCV 86.0 MCH 30.0 MCHC 34.8 RDW 16.0 Plt Count 22 L D MPV 10.2 Absolute Nucleated RBC 0.000 Nucleated RBC % (auto) 0.[address] scan - abdomen: Radiologist's impression: ITS Impressions Chest X-Ray 01/24/22 11:02 IMPRESSION: Surgical changes right parahilar region left midlung. There are increased bilateral interstitial markings likely chronic changes. No acute consolidation. Chest CTA 01/24/22 12:46 IMPRESSION: No pulmonary embolism. Post surgical changes of right upper lobectomy and left upper lobe wedge resection with similar surrounding groundglass pulmonary nodules within compared to prior. Resolution of trace left pleural effusion with stable small right pleural effusion. Similar sclerotic osseous lesions raising the suspicion for osseous metastases and stable thoracic wedge compression deformities. VTE: negative Discharge Plan Discharge Anticipated Discharge Date/Time: 01/30/22 12:02 Patient Disposition: Home, Self-Care Discharge Diagnosis: Pancytopenia: Symptomatic anemia, low platelets Referrals: Daphne Rodriguez MD [Primary Care Provider] - 1 Week Discharge Medications: New magnesium oxide 400 mg (241.3 mg magnesium) Tablet 800 mg PO DAILY 30 Days Qty: 60 0RF Mag&Al/Sim/Diphenhyd/Lidocaine [Magic Mouthwash] 10 ml PO Q4H PRN (Reason: sore throat) Qty: 300 1RF fluconazole [Diflucan] 100 mg tablet 100 mg PO DAILY Qty: 8 0RF Continued metoprolol ta-hydrochlorothiaz 50-25 mg tablet 1 tab PO DAILY paroxetine HCl 20 mg tablet 60 mg PO DAILY docusate sodium 100 mg capsule 1 cap PO BEDTIME PRN (Reason: Constipation) omeprazole 20 mg capsule,delayed release(DR/EC) 20 mg PO DAILY@0630 folic acid 1 mg tablet 1 mg PO DAILY diltiazem HCl [DILT-XR] 180 mg capsule,ext.rel 24h degradable 180 mg PO DAILY Savella 50 mg tablet 50 mg PO BID buprenorphine-naloxone [Suboxone] 4-1 mg film 1 strip sublingual DAILY Anoro Ellipta 62.5-25 mcg/actuation blister with device 1 puff INHALATION DAILY furosemide 20 mg Tablet 20 mg PO DAILY Qty: 30 0RF Protocol: Hold for SBP< HOLD for SBP < : 90 prednisone 20 mg tablet 40 mg PO DAILY Qty: 10 0RF Discharge Orders: Discharge Order (Routine); Ordered 01/30/22 Ordered By: Sinan Leon Diet: Advance to usual diet Activity on Discharge: As tolerated Stand Alone Forms: Patient Portal Discharge page Care Plan Goals: Read below Health Concerns: Read below Plan of Treatment: Read below Assessment: You were admitted to the hospital for evaluation of shortness of breath and painful swallowing. Found to have an evidence of flow hemoglobin and platelets as a result of chemotherapy. Evaluated by Oncology team as he received 2 units of blood and 4 units of platelets along with stimulant of your bone Bhatti with good response as your platelets and hemoglobin stabilized and started to go up. Treated with IV antifungal for candidiasis of your throat. Magic mouthwash was used with good response. Noted to have a new onset atrial fibrillation with rapid ventricular response. Evaluated by pharmacy associate. A blood thinners were held for low platelet count. Start magnesium supplement Magic mouthwash as needed Continue Diflucan as prescribed To follow-up with Cardiology once your platelet improve to consider starting blood thinners To follow-up with oncologist as outpatient.
== END 2022-01-30 13:54 | disposition home or self-care (01) | DRG 660 ==
LOC: HO.ED 14:26 → HO.EDOVER 14:55 → HO.IMC 19:37
PROVIDERS: Physician Assistant; Admitting Provider Internal Medicine; Emergency Provider Emergency Medicine; PCP Pediatrics; Visit Provider Student in an Organized Health Care Education/Training Program
DX: D61.810 Antineoplastic chemotherapy induced pancytopenia (principal); B37.0 Candidal stomatitis; D84.821 Immunodeficiency due to drugs; C34.11 Malignant neoplasm of upper lobe, right bronchus or lung; C34.12 Malignant neoplasm of upper lobe, left bronchus or lung; E83.51 Hypocalcemia; D63.0 Anemia in neoplastic disease; K21.9 Gastro-esophageal reflux disease without esophagitis; F11.20 Opioid dependence, uncomplicated; I11.0 Hypertensive heart disease with heart failure; I50.32 Chronic diastolic (congestive) heart failure; R13.12 Dysphagia, oropharyngeal phase; F32.A Depression, unspecified; E83.42 Hypomagnesemia; I48.91 Unspecified atrial fibrillation; J44.9 Chronic obstructive pulmonary disease, unspecified; T45.1X5A Adverse effect of antineoplastic and immunosuppressive drugs, initial encounter; E87.6 Hypokalemia; Z20.822 Contact with and (suspected) exposure to COVID-19; Z85.3 Personal history of malignant neoplasm of breast; Z90.2 Acquired absence of lung [part of]; Z88.5 Allergy status to narcotic agent; Z88.8 Allergy status to other drugs, medicaments and biological substances; Z79.52 Long term (current) use of systemic steroids; Z79.899 Other long term (current) drug therapy
CPT/HCPCS: 36415; 71045; 71275; 80048; 80076; 81001; 82947; 83605; 83735; 83880; 84484; 85007; 85027; 85379; 85610; 86850; 86900; 86901; 86923; 87040; 87502; 87635; 93005; 99213; 99285; J0692; J1447; J1450; J3475; P9016; P9035; P9073; Q9967

== ENCOUNTER 2022-02-04 18:23 | Emergency (ER) | payer MEDICAID, SELFPAY ==
--- NOTE | ~2022-02-04 | XR_ITS ---
EXAMINATION: 2 VIEW CHEST, SOFT TISSUE NECK CLINICAL INFORMATION: Choking COMPARISON: Chest radiograph 01/24/2022 TECHNIQUE: 2 views chest, 2 views neck FINDINGS: Chest: Since the prior study, there has been an increase in size of a small right pleural effusion and development of a small left pleural effusion. Heart size is normal. There is no evidence of CHF. Volume loss in the right hemithorax consistent with the history of right upper lobectomy. Anterior cervical fusion hardware is intact. No osseous abnormalities seen. XR/XR chest 2V IMPRESSION: Interval increase in size of right pleural effusion and development of small left pleural effusion.
--- NOTE | ~2022-02-04 | XR_ITS ---
EXAMINATION: 2 VIEW CHEST, SOFT TISSUE NECK CLINICAL INFORMATION: Choking COMPARISON: Chest radiograph 01/24/2022 TECHNIQUE: 2 views chest, 2 views neck FINDINGS: Chest: Since the prior study, there has been an increase in size of a small right pleural effusion and development of a small left pleural effusion. Heart size is normal. There is no evidence of CHF. Volume loss in the right hemithorax consistent with the history of right upper lobectomy. Anterior cervical fusion hardware is intact. No osseous abnormalities seen. XR/XR soft tissue neck IMPRESSION: Interval increase in size of right pleural effusion and development of small left pleural effusion.
--- NOTE | 2022-02-04 18:45 | ED_ITS ---
HPI - SOB/Dyspnea General Chief Complaint: General Medical Stated Complaint: sob Time Seen by Provider: 02/04/22 18:45 Source: patient and EMS Mode of arrival: EMS Limitations: no limitations History of Present Illness HPI Narrative: 61-year-old female presents via EMS for suspected aspiration after choking on a bite of hamburger. Patient has a history of lung cancer bilaterally, COPD, anemia, CHF, bilateral pleural effusions. She was out to dinner with her family, took a large bite of hamburger, and was unable to swallow it. States that she was choking on and was unable to breathe, was able to spit up piece on her own. She did not require Heimlich. She did not report any medical complaints at this time. MD elicited complaint: shortness of breath Pertinent past history: COPD and other (Lung CA) Onset (ago): hour(s) (Within the hour of arrival) Context: choking/aspiration Timing: improved and now resolved Severity: moderate Exacerbating factors: coughing and inspiration Relieving factors: nothing Known history of: COPD Associated symptoms: denies other symptoms Treatment prior to arrival: none Related Data Home oxygen amount: none Home Medications Medication Instructions Recorded Confirmed buprenorphine 4 mg-naloxone 1 mg 1 strip sublingual DAILY 01/18/22 01/24/22 sublingual film (Suboxone) diltiazem HCl 180 mg 180 mg PO DAILY 01/18/22 01/24/22 capsule,extended release 24 hr, controlled (DILT-XR) docusate sodium 100 mg capsule 1 cap PO BEDTIME PRN Constipation 01/18/22 01/24/22 folic acid 1 mg tablet 1 mg PO DAILY 01/18/22 01/24/22 metoprolol tartrate 50 1 tab PO DAILY 01/18/22 01/24/22 mg-hydrochlorothiazide 25 mg tablet milnacipran 50 mg tablet (Savella) 50 mg PO BID 01/18/22 01/24/22 omeprazole 20 mg capsule,delayed 20 mg PO DAILY@0630 01/18/22 01/24/22 release paroxetine HCl 20 mg tablet 60 mg PO DAILY 01/18/22 01/24/22 umeclidinium 62.5 mcg-vilanterol 1 puff inhalation DAILY 01/18/22 01/24/22 25 mcg/actuation powdr for inhalation (Anoro Ellipta) Previous Rx's Medication Instructions Recorded furosemide 20 mg tablet 20 mg PO DAILY #30 tabs 01/21/22 prednisone 20 mg tablet 40 mg PO DAILY #10 tabs 01/21/22 Mag&Al/Sim/Diphenhyd/Lidocaine 10 ml PO Q4H PRN sore throat #300 01/30/22 [Magic Mouthwash] mL fluconazole 100 mg tablet 100 mg PO DAILY #8 tabs 01/30/22 (Diflucan) magnesium oxide 400 mg (241.3 mg 800 mg PO DAILY 30 days #60 tabs 01/30/22 magnesium) tablet Allergies Allergy/AdvReac Type Severity Reaction Status Date / Time lisinopril [LISINOPRIL] Allergy Severe SWELLING- Verified 01/15/22 12:39 ANGIOEDEMA codeine [CODEINE] Allergy Intermediate VOMITING/HIVES, Verified 01/15/22 12:39 vomiting, hives Review of Systems Review of Systems: Constitutional: No Fever, No Chills ENT/Mouth: No Ear Pain, No Hoarseness, No sore throat Eyes: No Eye Pain, No Swelling, No Redness, No Foreign Body Cardiovascular: No Chest Pain, positive SOB Respiratory: Positive choking,Positive Cough, No Dyspnea Gastrointestinal: No Nausea, No Vomiting, No Diarrhea, No abdominal Pain Genitourinary: No Dysuria, No Hematuria Musculoskeletal: No joint pain, No Myalgias, No Joint Swelling Skin: No Skin lacerations, No rash Neuro: No Weakness, No Numbness, No Paresthesias, No Loss of Consciousness, No Dizziness, No Headache Psych: No Anxiety/Panic, No Depression Heme/Lymph: no easy bruising, no Lymphadenopathy Endocrine: No Polyuria, No Polydipsia Yes all other systems are reviewed and are negative PMFSH Past Medical History Attestation statement: The following information was validated with the patient. Source: old records reviewed Medical History Bilateral lung cancer Cancer of upper lobe of left lung (~2020) Cancer of upper lobe of right lung (~2019) COPD (chronic obstructive pulmonary disease) Depression GERD (gastroesophageal reflux disease) History of breast cancer (~2006) History of hepatitis C HTN (hypertension) Internal and external bleeding hemorrhoids Obesity Pulmonary nodules Smoker Tubular adenoma of colon Surgical History History of anterior colporrhaphy (~2016) History of back surgery (~2011) History of colonoscopy (~2014) History of hemorrhoidectomy (~2019) History of lobectomy of lung (~2019) History of lumpectomy of right breast (~2006) History of lung surgery (~2020) History of tubal ligation Family History Family History Mother History of lung cancer Brother History of lung cancer Maternal Grandmother Breast cancer in female Maternal Aunt Breast cancer in female Daughter Thyroid cancer Social History Social History Household Members: Significant Other Housing: Apartment Are you a primary care transitions manager to a significant other at home: No Do you presently have visiting nurse or other home services: No Alcohol intake: never Patient Tobacco Use Status: Never used Tobacco Tobacco use type: Cigar Years Smoked: 46 Second Hand Smoke Exposure: No Substance Use Type: Marijuana Advance Directives: No Advance Directives Information Provided: No service: No Current occupational status: disabled Current occupational exposures/hazards: No Physical Exam Vital Signs: Vital Signs: Last Vital Signs Temp 98.6 F 02/04/22 18:50 Pulse 70 02/04/22 19:51 Resp 14 02/04/22 19:51 BP 146/88 H 02/04/22 19:51 Pulse Ox 96 02/04/22 19:51 O2 Del Method 02/04/22 19:51 O2 Flow Rate 2 02/04/22 19:51 Oxygen Flow Rate 2 02/04/22 18:50 BMI result Body Mass Index 20.3 Appearance: Alert. Oriented X3. No acute distress. Eyes: Pupils equal, round and reactive to light. ENT: Pharynx normal. Neck: Normal inspection. Neck supple. No nuchal rigidity. No tracheal stridor. CVS: Normal heart rate and rhythm. Pulses normal. Respiratory: No respiratory distress. Lungs diminished bilateral bases, no expiratory wheezing noted. Abdomen: Soft and nontender. Abuse. Skin: Skin warm and dry. Normal skin color. Normal skin turgor. Extremities: No lower extremity edema. Moves all extremities against resistance. Gait not assessed for safety Neuro: No motor deficit. No sensory deficit. Cranial nerves 2-12 intact. Course Course Course Narrative: 61-year-old female presents via EMS for episode of choking while at [employer]. Patient was eating a hamburger and took a large bite, started choking, could not breathe. Patient was able to cough the portion of the Burger without emergent or heroic measures. Patient does have a history of lung cancer, COPD, is not O2 dependent. Patient was noted to have an O2 sat of 88% and was given 2 L of O2 nasal cannula by EMS. During my evaluation patient has diminished lung sounds at the bases, lung sounds clear no tracheal stridor. Patient's O2 sats me under from 88-94%, feel that this is patient's baseline she does have considerable cor morbidities including lung cancer. Detailed discussion with patient regarding past medical history, she does have Primary Care, Oncology, and pulmonology follow-up. At this time, will order x-rays to rule out aspiration. Meet 30 p.m. x-rays are negative for findings. Patient is continuing with even unlabored respirations, O2 sats between 88 95% on room air. I did discuss oxygen saturation with the patient and possibility of admission for further workup, she would like to be discharged home feels like this is her baseline. She is presenting well, even unlabored respirations, speaking in complete sentences, and patient has multiple appointments this week with her primary and oncologist. I did discuss the options of getting oxygen supplementation for home use. Patient stated that this is been discussed with her mother primary care physician multiple times. Patient verbalized understanding of signs symptoms indicating need for emergent intervention. Verbalizes understanding of and agrees to plan of care discharge home. MDM - SOB/Dyspnea MDM Narrative Medical decision making narrative: Aspiration Differential Diagnosis Differential diagnosis: Likely acute exacerbation of chronic obstructive airways disease and pneumonia Medical Records Attestation: I reviewed the patient's medical records. Imaging Data Neck chest x-ray: Attestation: I personally reviewed and interpreted this imaging study as follows: Radiologist's impression: EXAMINATION: 2 VIEW CHEST, SOFT TISSUE NECK CLINICAL INFORMATION: Choking? COMPARISON: Chest radiograph 01/24/2022? TECHNIQUE: 2 views chest, 2 views neck? FINDINGS: Chest: Since the prior study, there has been an increase in size of a small right pleural effusion and development of a small left pleural effusion. Heart size is normal. There is no evidence of CHF. Volume loss in the right hemithorax consistent with the history of right upper lobectomy. Anterior cervical fusion hardware is intact. No osseous abnormalities seen. XR/XR chest 2V IMPRESSION: Interval increase in size of right pleural effusion and development of small left pleural effusion. Discharge Plan Discharge Clinical Impression: Choking, Bilateral lung cancer Patient Disposition: Home, Self-Care Instructions: Acute Cough (ED) Additional Instructions: You were evaluated for a choking episode. X-rays are negative for acute findings. 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 Thank you for choosing this emergency department for evaluation. Please follow-up with primary care physician as needed. Return to the emergency depa rtment for any new, concerning, or worsening symptoms. Prescriptions: No Action magnesium oxide 400 mg (241.3 mg magnesium) Tablet 800 mg PO DAILY 30 Days Qty: 60 0RF Mag&Al/Sim/Diphenhyd/Lidocaine [Magic Mouthwash] 10 ml PO Q4H PRN (Reason: sore throat) Qty: 300 1RF fluconazole [Diflucan] 100 mg tablet 100 mg PO DAILY Qty: 8 0RF metoprolol ta-hydrochlorothiaz 50-25 mg tablet 1 tab PO DAILY paroxetine HCl 20 mg tablet 60 mg PO DAILY docusate sodium 100 mg capsule 1 cap PO BEDTIME PRN (Reason: Constipation) omeprazole 20 mg capsule,delayed release(DR/EC) 20 mg PO DAILY@0630 folic acid 1 mg tablet 1 mg PO DAILY diltiazem HCl [DILT-XR] 180 mg capsule,ext.rel 24h degradable 180 mg PO DAILY Savella 50 mg tablet 50 mg PO BID buprenorphine-naloxone [Suboxone] 4-1 mg film 1 strip sublingual DAILY Anoro Ellipta 62.5-25 mcg/actuation blister with device 1 puff INHALATION DAILY furosemide 20 mg Tablet 20 mg PO DAILY Qty: 30 0RF Protocol: Hold for SBP< HOLD for SBP < : 90 prednisone 20 mg tablet 40 mg PO DAILY Qty: 10 0RF Referrals: Alexandria Samuels MD [Physician] - 2 weeks (Choking episode) Interventions: ED Discharge Assessment Last Done: 02/04/22 21:17 Discharge Date/Time: 02/04/22 21:18
[2022-02-04 18:50] VITALS: BP 143/95; BP 149/83; PULSE 78; PULSE 80; RESP 16; TEMP 37; O2SAT 100; O2SAT 98; BMI 20.3
[2022-02-04 19:51] VITALS: BP 146/88; PULSE 70; RESP 14; O2SAT 96
== END 2022-02-04 21:18 | disposition home or self-care (01) ==
PROVIDERS: Emergency Provider Emergency Medicine; PCP Pediatrics
DX: R06.02 Shortness of breath (principal); R09.89 Other specified symptoms and signs involving the circulatory and respiratory systems; C34.11 Malignant neoplasm of upper lobe, right bronchus or lung; C34.12 Malignant neoplasm of upper lobe, left bronchus or lung; F17.200 Nicotine dependence, unspecified, uncomplicated
CPT/HCPCS: 70360; 71046; 99283

== ENCOUNTER 2022-02-10 09:28 | Outpatient (REF) | payer MEDICAID, SELFPAY | END 2022-02-10 09:29 | disposition home or self-care (01) | LOC: HO.PET 09:28 | PROVIDERS: Visit Provider Internal Medicine | DX: Z13.89 Encounter for screening for other disorder (principal) ==

== ENCOUNTER 2022-02-17 05:36 | Inpatient (IN) | payer MEDICAID, SELFPAY ==
[2022-02-17] VITALS (19 sets, daily range): BP systolic 99–174; BP diastolic 48–107; PULSE 76–114; RESP 16–25; TEMP 36.1–37.1; O2SAT 94–100; BMI 28.1
--- NOTE | 2022-02-17 | ECG_ITS ---
Test Reason : SOB Blood Pressure : / mmHG Vent. Rate : 094 BPM Atrial Rate : 094 BPM P-R Int : 154 ms QRS Dur : 076 ms QT Int : 372 ms P-R-T Axes : 082 030 025 degrees QTc Int : 465 ms Sinus rhythm with Premature atrial complexes Nonspecific ST abnormality Abnormal ECG No previous ECGs available Referred By: Junior Barker Electronically Signed By:FRANCE SLAUGHTER MD
--- NOTE | ~2022-02-17 | XR_ITS ---
EXAMINATION: XR CHEST CLINICAL INFORMATION: Shortness of breath COMPARISON: 02/17/2022 TECHNIQUE: Frontal view of the chest was obtained. FINDINGS: No new findings in the chest compared 02/17/2022. Chronic volume loss of the right hemithorax from upper lobectomy with elevation of right diaphragm. Staple line in the left lung from prior wedge resection. Again noted is a blunted right lateral costophrenic angle from a small pleural effusion. There is no overt airspace disease. No pulmonary edema, pneumothorax or other significant change. Cardiac silhouette is normal in size. Anterior fusion hardware of the lower cervical spine. No acute skeletal findings. XR/XR chest 1V IMPRESSION: * No new cardiopulmonary abnormality compared to prior chest radiograph from 02/17/2022. * Small right pleural effusion is present. No pulmonary edema.
--- NOTE | ~2022-02-17 | CT_ITS ---
EXAMINATION: CT ANGIOGRAM OF THE CHEST WITH CONTRAST (CT PULMONARY ANGIOGRAM FOR PE) CLINICAL INFORMATION: Hypoxia and dyspnea on exertion. COMPARISON: Chest CT from 09/17/2021, 01/18/2022 and 01/24/2022. TECHNIQUE: Prior to contrast administration, noncontrast localization images were obtained. Subsequently, multidetector volumetric imaging was performed from the thoracic inlet to below the diaphragms following the administration of 65 mL Omnipaque 350 intravenous contrast. No contrast reaction reported. Sagittal, coronal, and MIP oblique sagittal reformatted images were obtained on the CT workstation, uploaded to PACS, and reviewed. This CT examination was performed using dose optimization techniques as appropriate, variously including the following: *Automated exposure control *Adjustment of mA and/or kV according to patient size (this includes techniques or standardized protocols for targeted exams where dose is matched to indication/reason for exam; i.e. extremities or head) *Use of iterative reconstruction technique DLP: Total exam dose-length product 305 mGy-cm FINDINGS: LUNGS AND PLEURA: Chronic centrilobular and paraseptal emphysema. Surgical changes from wedge resection of the left upper lobe and right upper lobectomy. The bronchial bennett are diffusely thickened. Persistent secretions within lower lobe bronchi (right worse than left). The nodular focus that measures 0.8 cm wide in the right lower lobe was previously 1.4 cm wide on 09/17/2021 (image 320, series 7). Findings include new, mild patchy opacity in the lateral left upper lobe and new tree-in-bud nodular opacities in the left lower lobe, consistent with sequela of either aspiration or infectious bronchiolitis. Trace bilateral pleural effusions are present. QUALITY OF STUDY/CONTRAST BOLUS: Satisfactory. CARDIOVASCULAR: There appears to be chronic minimal thrombus of the stump of the right upper lobe pulmonary artery, unchanged compared to 09/17/2021. No pulmonary embolism. There are no acute filling defects in the main, lobar or segmental vessels. The heart size is normal. Mitral valve annulus is calcified. Mild atherosclerosis of the thoracic aorta without aneurysm. No pericardial effusion. Mild coronary artery calcification is noted. MEDIASTINUM/LOWER NECK: The esophagus is unremarkable. No mediastinal mass. LYMPHATICS: No axillary or internal mammary lymphadenopathy. No pathologic sized mediastinal or hilar lymph nodes. UPPER ABDOMEN: No contrast reflux into the inferior vena cava. Again noted is a lipid rich adenoma of the right adrenal gland. No adrenal imaging follow-up recommended. No acute findings within the upper abdomen. OSSEOUS STRUCTURES: No new bone lesions compared to 01/24/2022. There is focal sclerosis at site of old nondisplaced fracture of left lateral eighth rib. There are some sclerotic lesions as well as lucent lesions with sclerotic borders in the vertebral bodies that are new compared to 09/17/2021, consistent with metastatic foci. Again, the sclerosis and inferior endplate fracture of the T6 vertebral body are new compared to 09/17/2021. Again noted is mild compression deformity of the T7 superior endplate. CT/CT angio chest PE protocol IMPRESSION: * No evidence of pulmonary embolism. * Centrilobular and paraseptal emphysema. * Bronchial bennett are thickened and there are endobronchial secretions from likely bronchitis, although secretions can also be observed within airways after aspiration. * New tree-in-bud nodules in the left lower lobe and new small patchy opacities in the periphery of the left upper lobe are likely from infectious bronchiolitis. * Trace bilateral pleural effusions are present. * No new skeletal metastases compared to 01/24/2022.
--- NOTE | ~2022-02-17 | XR_ITS ---
EXAMINATION: XR CHEST CLINICAL INFORMATION: Shortness of breath. COMPARISON: Chest radiographs dated 02/04/2022 and 02/17/2022. TECHNIQUE: Frontal view of the chest was obtained. FINDINGS: There is a persistent small right pleural effusion without cement change. Postsurgical changes are again seen bilaterally. The heart and mediastinal structures are unremarkable. A cervical fixation plate is again noted in place. XR/XR chest 1V IMPRESSION: Small right pleural effusion similar to the most recent study, but improved from the 02/04/2022 study.
--- NOTE | ~2022-02-17 | XR_ITS ---
EXAMINATION: XR CHEST CLINICAL INFORMATION: Shortness of breath. COMPARISON: Chest radiograph 02/04/2022. TECHNIQUE: Frontal view of the chest was obtained. FINDINGS: Stable appearance of the cardiomediastinal silhouette. Redemonstration of cervical fusion hardware. Again noted bilateral postsurgical changes. Unchanged asymmetric decreased right-sided lung volume with stable reticular and platelike opacities bilaterally. Unchanged small right pleural effusion. No pneumothorax. No acute osseous abnormalities. XR/XR chest 1V IMPRESSION: Examination is not significantly changed when compared to 02/04/2022.
--- NOTE | 2022-02-17 05:50 | ED_ITS ---
HPI - SOB/Dyspnea General Chief Complaint: Upper Respiratory Symptoms Stated Complaint: SOB HX LUNG CA Time Seen by Provider: 02/17/22 05:49 Source: patient Mode of arrival: ambulatory Limitations: no limitations History of Present Illness HPI Narrative: Patient is 61 years old with history of metastatic non-small cell carcinoma of both sides status post lobectomy on chemotherapy now with history of COPD, hypertension, hepatitis-C, pancytopenia , atrial fibrillation comes here for increased shortness of breath for last few days specially when patient do any exertion no chest pain no leg swelling patient received blood and platelet transfusion on 01/24/2022 no chest pain no fever no chills patient been coughing last few days without any phlegm when EMS arrived patient is saturating 99% at room air but tachypneic patient denied any melena or bleeding from any site no headache Related Data Home Medications Medication Instructions Recorded Confirmed buprenorphine 4 mg-naloxone 1 mg 1 strip sublingual DAILY 01/18/22 01/24/22 sublingual film (Suboxone) diltiazem HCl 180 mg 180 mg PO DAILY 01/18/22 01/24/22 capsule,extended release 24 hr, controlled (DILT-XR) docusate sodium 100 mg capsule 1 cap PO BEDTIME PRN Constipation 01/18/22 01/24/22 folic acid 1 mg tablet 1 mg PO DAILY 01/18/22 01/24/22 metoprolol tartrate 50 1 tab PO DAILY 01/18/22 01/24/22 mg-hydrochlorothiazide 25 mg tablet milnacipran 50 mg tablet (Savella) 50 mg PO BID 01/18/22 01/24/22 omeprazole 20 mg capsule,delayed 20 mg PO DAILY@0630 01/18/22 01/24/22 release paroxetine HCl 20 mg tablet 60 mg PO DAILY 01/18/22 01/24/22 umeclidinium 62.5 mcg-vilanterol 1 puff inhalation DAILY 01/18/22 01/24/22 25 mcg/actuation powdr for inhalation (Anoro Ellipta) Previous Rx's Medication Instructions Recorded furosemide 20 mg tablet 20 mg PO DAILY #30 tabs 01/21/22 prednisone 20 mg tablet 40 mg PO DAILY #10 tabs 01/21/22 Mag&Al/Sim/Diphenhyd/Lidocaine 10 ml PO Q4H PRN sore throat #300 01/30/22 [Magic Mouthwash] mL fluconazole 100 mg tablet 100 mg PO DAILY #8 tabs 01/30/22 (Diflucan) magnesium oxide 400 mg (241.3 mg 800 mg PO DAILY 30 days #60 tabs 01/30/22 magnesium) tablet Allergies Allergy/AdvReac Type Severity Reaction Status Date / Time lisinopril [LISINOPRIL] Allergy Severe SWELLING- Verified 01/15/22 12:39 ANGIOEDEMA codeine [CODEINE] Allergy Intermediate VOMITING/HIVES, Verified 01/15/22 12:39 vomiting, hives Review of Systems Review of Systems: Yes all other systems are reviewed and are negative PMFSH Past Medical History Medical History Bilateral lung cancer Cancer of upper lobe of left lung (~2020) Cancer of upper lobe of right lung (~2019) COPD (chronic obstructive pulmonary disease) Depression GERD (gastroesophageal reflux disease) History of breast cancer (~2006) History of hepatitis C HTN (hypertension) Internal and external bleeding hemorrhoids New onset a-fib Obesity Pancytopenia Pulmonary nodules Smoker Tubular adenoma of colon Surgical History History of anterior colporrhaphy (~2016) History of back surgery (~2011) History of colonoscopy (~2014) History of hemorrhoidectomy (~2019) History of lobectomy of lung (~2019) History of lumpectomy of right breast (~2006) History of lung surgery (~2020) History of tubal ligation Family History Family History Mother History of lung cancer Brother History of lung cancer Maternal Grandmother Breast cancer in female Maternal Aunt Breast cancer in female Daughter Thyroid cancer Social History Social History Household Members: Significant Other Housing: Apartment Are you a primary healthcare administration internship to a significant other at home: No Do you presently have visiting nurse or other home services: No Alcohol intake: never Patient Tobacco Use Status: Never used Tobacco Tobacco use type: Cigar Years Smoked: 46 Second Hand Smoke Exposure: No Substance Use Type: Marijuana Advance Directives: No service: No Current occupational status: disabled Current occupational exposures/hazards: No Physical Exam Vital Signs: Vital Signs: Last Vital Signs Temp 98.4 F 02/17/22 06:58 Pulse 84 02/17/22 06:58 Resp 23 H 02/17/22 06:58 BP 144/92 H 02/17/22 06:58 Pulse Ox 99 02/17/22 06:58 O2 Del Method 02/17/22 06:58 O2 Flow Rate 2 02/17/22 06:58 Oxygen Flow Rate 2 02/17/22 05:39 BMI result Body Mass Index 28.1 Appearance: Alert. Oriented X3. No acute distress. Eyes: PERRLA, No Nystagmus pallor+ ENT: Pharynx normal. Oral Mucosa moist Neck: Normal inspection. Neck supple. CVS: Normal heart rate and rhythm. Pulses normal. Respiratory: mild respiratory distress. Equal air entry bilateral, no wheezing/rales/rhonchi Abdomen: Soft and nontender. Bowel sounds are present, no mass palpable, no CVA tenderness Skin: Skin warm and dry. Normal skin color. Normal skin turgor. Extremities: No lower extremity edema. No calf tenderness Neuro: Oriented X 3. No motor deficit. No sensory deficit.No cerebellar signs , cranial nerves II-XII intact MDM - SOB/Dyspnea MDM Narrative Medical decision making narrative: 06:00 Patient with exertion dyspnea severe anemia chest x-ray without any acute changes history of lung cancer and COPD will admit patient for blood transfusion and dyspnea Elevated lactic acid and troponin secondary to demand ischemia patient is not septic and does not have any acute coronary event hospitalist informed about admission Differential Diagnosis Differential diagnosis: Likely acute exacerbation of chronic obstructive airways disease, congestive heart failure, pneumonia and pleural effusion Lab Data Attestation: I reviewed the patient's lab results. Result diagrams: 02/17/22 06:02 02/17/22 06:02 Labs: Lab Results 02/17/22 02/17/22 02/17/22 Range/Units 06:00 06:02 06:02 WBC 6.0 (4.8-10.8) X10*3/uL RBC 1.92 L D (4.20-5.50) X10*6/uL Hgb 6.2 L* (12.0-16.0) g/dl Hct 18.7 L* (37.0-47.0) % MCV 97.4 (80.0-98.0) fL MCH 32.3 (27.0-33.0) pg MCHC 33.2 (31.0-35.0) g/dl RDW 22.6 H (11.0-16.0) % Plt Count 68 L D (160-400) X10*3/uL MPV 10.8 (9.4-12.3) fL Immature Gran % (Auto) 2.9 H (0.0-0.4) % Neut % (Auto) 66.7 (45-73) % Lymph % (Auto) 10.3 L (20-40) % [place] % (Auto) 19.8 H (2-11) % Eos % (Auto) 0.0 (0-4) % Baso % (Auto) 0.3 (0-2) % Lymph # (Auto) 0.6 L (1.2-4.9) X10*3/uL [place] # (Auto) 1.2 (0.1-1.2) X10*3/uL Eos # (Auto) 0.0 (0.0-0.4) X10*3/uL Baso # (Auto) 0.0 (0.0-0.2) X10*3/uL Abs Immat Gran (auto) 0.17 H (0.00-0.03) X10*3/uL Absolute Neuts (auto) 4.0 (2.0-8.3) x10*3/uL Absolute Nucleated RBC 0.020 H (0.0-0.012) X10*3/uL Nucleated RBC % (auto) 0.3 H (0.0-0.2) /100WBC PT (10.0-13.1) SEC INR (0.9-1.1) Sodium 140 (135-145) mmol/L Potassium 3.6 (3.3-5.1) mmol/L Chloride 95 L (96-108) mmol/L Carbon Dioxide 30 H (22-29) mmol/L Anion Gap 19 (12-20) BUN 19 H (9-16) mg/dL Creatinine 1.14 (0.5-1.4) mg/dL Estim Creat Clear Calc 57.0 Estimated GFR 48 Random Glucose 198 H (60-115) mg/dL Lactic Acid (0.5-2.0) mmol/L Calcium 8.2 L (8.4-10.2) mg/dL Total Bilirubin 1.1 H (0.0-1.0) mg/dL AST 20 (5-31) U/L ALT 19 (0-31) U/L Alkaline Phosphatase 84 D (39-117) U/L Troponin I High Sens (<3.5-17.0) ng/L B-Natriuretic Peptide (<100) pg/mL Total Protein 7.1 (6.5-8.0) g/dL Albumin 3.8 D (3.5-5.0) g/dL COVID-19 (OLAYINKA) (Negative) COVID-19 Clin Com Blood Type A Positive Antibody Screen NEGATIVE Crossmatch See Detail 02/17/22 02/17/22 02/17/22 Range/Units 06:02 06:02 06:04 WBC (4.8-10.8) X10*3/uL RBC (4.20-5.50) X10*6/uL Hgb (12.0-16.0) g/dl Hct (37.0-47.0) % MCV (80.0-98.0) fL MCH (27.0-33.0) pg MCHC (31.0-35.0) g/dl RDW (11.0-16.0) % Plt Count (160-400) X10*3/uL MPV (9.4-12.3) fL Immature Gran % (Auto) (0.0-0.4) % Neut % (Auto) (45-73) % Lymph % (Auto) (20-40) % [place] % (Auto) (2-11) % Eos % (Auto) (0-4) % Baso % (Auto) (0-2) % Lymph # (Auto) (1.2-4.9) X10*3/uL [place] # (Auto) (0.1-1.2) X10*3/uL Eos # (Auto) (0.0-0.4) X10*3/uL Baso # (Auto) (0.0-0.2) X10*3/uL Abs Immat Gran (auto) (0.00-0.03) X10*3/uL Absolute Neuts (auto) (2.0-8.3) x10*3/uL Absolute Nucleated RBC (0.0-0.012) X10*3/uL Nucleated RBC % (auto) (0.0-0.2) /100WBC PT 12.5 (10.0-13.1) SEC INR 1.1 (0.9-1.1) Sodium (135-145) mmol/L Potassium (3.3-5.1) mmol/L Chloride (96-108) mmol/L Carbon Dioxide (22-29) mmol/L Anion Gap (12-20) BUN (9-16) mg/dL Creatinine (0.5-1.4) mg/dL Estim Creat Clear Calc Estimated GFR Random Glucose (60-115) mg/dL Lactic Acid (0.5-2.0) mmol/L Calcium (8.4-10.2) mg/dL Total Bilirubin (0.0-1.0) mg/dL AST (5-31) U/L ALT (0-31) U/L Alkaline Phosphatase (39-117) U/L Troponin I High Sens 84.9 H* (<3.5-17.0) ng/L B-Natriuretic Peptide 149 H (<100) pg/mL Total Protein (6.5-8.0) g/dL Albumin (3.5-5.0) g/dL COVID-19 (OLAYINKA) Negative (Negative) COVID-19 Clin Com See Note Blood Type Antibody Screen Crossmatch 02/17/22 Range/Units 06:22 WBC (4.8-10.8) X10*3/uL RBC (4.20-5.50) X10*6/uL Hgb (12.0-16.0) g/dl Hct (37.0-47.0) % MCV (80.0-98.0) fL MCH (27.0-33.0) pg MCHC (31.0-35.0) g/dl RDW (11.0-16.0) % Plt Count (160-400) X10*3/uL MPV (9.4-12.3) fL Immature Gran % (Auto) (0.0-0.4) % Neut % (Auto) (45-73) % Lymph % (Auto) (20-40) % [place] % (Auto) (2-11) % Eos % (Auto) (0-4) % Baso % (Auto) (0-2) % Lymph # (Auto) (1.2-4.9) X10*3/uL [place] # (Auto) (0.1-1.2) X10*3/uL Eos # (Auto) (0.0-0.4) X10*3/uL Baso # (Auto) (0.0-0.2) X10*3/uL Abs Immat Gran (auto) (0.00-0.03) X10*3/uL Absolute Neuts (auto) (2.0-8.3) x10*3/uL Absolute Nucleated RBC (0.0-0.012) X10*3/uL Nucleated RBC % (auto) (0.0-0.2) /100WBC PT (10.0-13.1) SEC INR (0.9-1.1) Sodium (135-145) mmol/L Potassium (3.3-5.1) mmol/L Chloride (96-108) mmol/L Carbon Dioxide (22-29) mmol/L Anion Gap (12-20) BUN (9-16) mg/dL Creatinine (0.5-1.4) mg/dL Estim Creat Clear Calc Estimated GFR Random Glucose (60-115) mg/dL Lactic Acid 2.4 H* (0.5-2.0) mmol/L Calcium (8.4-10.2) mg/dL Total Bilirubin (0.0-1.0) mg/dL AST (5-31) U/L ALT (0-31) U/L Alkaline Phosphatase (39-117) U/L Troponin I High Sens (<3.5-17.0) ng/L B-Natriuretic Peptide (<100) pg/mL Total Protein (6.5-8.0) g/dL Albumin (3.5-5.0) g/dL COVID-19 (OLAYINKA) (Negative) COVID-19 Clin Com Blood Type Antibody Screen Crossmatch ECG Data Attestation: I personally reviewed and interpreted this ECG as follows: Interpretation: Sinus rhythm with premature atrial complexes nonspecific ST T wave changes heart rate 94 beats per minute no acute ST-T changes no acute ischemia Discharge Plan Discharge Clinical Impression: Severe anemia, NEELY (dyspnea on exertion), Elevated lactic acid level Patient Disposition: Admitted As Inpatient
[2022-02-17 06:11] LABS: MANUAL DIFF FLAG NO
[2022-02-17 06:19] LABS: Basophils Percent Auto 0.3 % (0-2); Imm Gran Abs Auto 0.17 X10*3/uL (0.00-0.03); Imm Gran Pct Auto 2.9 % (0.0-0.4); Lymphocytes Absolute Auto 0.6 X10*3/uL (1.2-4.9); Lymphocytes Percent Auto 10.3 % (20-40); Mean Corpuscular HGB Conc 33.2 g/dl (31.0-35.0); Mean Corpuscular Hemoglobin 32.3 pg (27.0-33.0); Mean Corpuscular Volume 97.4 fL (80.0-98.0); Mean Platelet Volume 10.8 fL (9.4-12.3); Monocytes Absolute Auto 1.2 X10*3/uL (0.1-1.2); Monocytes Percent Auto 19.8 % (2-11); NRBC Pct Auto 0.3 /100WBC (0.0-0.2); Neutrophils Percent Auto 66.7 % (45-73); Red Blood Count 1.92 X10*6/uL (4.20-5.50); Red Cell Distribution Width 22.6 % (11.0-16.0)
[2022-02-17 06:20] LABS: Platelet Count 68 X10*3/uL (160-400)
[2022-02-17 06:22] LABS: Hematocrit 18.7 % (37.0-47.0); Hemoglobin 6.2 g/dl (12.0-16.0)
[2022-02-17 06:23] LABS: COVID-19 Test Negative (Negative)
[2022-02-17 06:23] LABS: INTERNATIONAL NORM RATIO 1.1 (0.9-1.1); Prothrombin Time 12.5 SEC (10.0-13.1)
[2022-02-17 06:31] LABS: Alanine Aminotransferase 19 U/L (0-31); Albumin Level 3.8 g/dL (3.5-5.0); Alkaline Phosphatase 84 U/L (39-117); Anion Gap 19 (12-20); Aspartate Amino Transferase 20 U/L (5-31); Bilirubin Total 1.1 mg/dL (0.0-1.0); Blood Urea Nitrogen 19 mg/dL (9-16); Calcium 8.2 mg/dL (8.4-10.2); Carbon Dioxide 30 mmol/L (22-29); Chloride 95 mmol/L (96-108); Estimated Glomerular Filt Rate 48; Glucose Random 198 mg/dL (60-115); Potassium 3.6 mmol/L (3.3-5.1); Sodium 140 mmol/L (135-145); Total Protein 7.1 g/dL (6.5-8.0)
[2022-02-17 06:43] LABS: Lactic Acid 2.4 mmol/L (0.5-2.0)
[2022-02-17 06:56] LABS: B Type Natriuretic Peptide 149 pg/mL (<100); Troponin-I High Sensitivity 84.9 ng/L (<3.5-17.0)
[2022-02-17] MEDS: cefTRIAXone sodium 1 GM in 0.9 % Sodium Chloride 50 ML IV (07:02)
--- NOTE | 2022-02-17 07:29 | PC.NURSE ---
pt is a/ox 4 no sob/john noted. lungs - nicki slight exp wheezing noted all other lobes diminished. 02sat 99% on 2l/m via n/c. speaks in full sentences. heart sounds regular. abd sound non-tender. bs + x 4 quads. bruising to lower abd noted, pt states from injections to prevent blood clot. no edema noted. pt aware of plan of care. rbc product infusing.
[2022-02-17 08:27] LABS: Reflex Lactate? Lactic Acid Added
--- NOTE | 2022-02-17 08:31 | PHA.MEDREC ---
Pharmacy Consult ? Medication Reconciliation Pharmacy has completed the medication reconciliation. Patient had a list of current medications which was used to do med rec. She states all medications on list are current and were last taken on 02/15/22. The 2 medications she takes for chemotherapy (ondansetron and dexamethasone) were taken with her last round of chemo which she states is once a month and she doesn't know which day of the month that is.
--- NOTE | 2022-02-17 11:07 | PC.NURSE ---
pt c/o diff breathing 02 sat 77%, lungs - exp wheezing all lobes. o2 increased to3l/m via n/c pt reposition in bed. hob up. vs 158/93-103-100% on 3l/m via n/c -28. pt aware of plan of care.
[2022-02-17 11:26] LABS: ~Lactic Acid-LAB USE ONLY 1.5 mmol/L (0.5-2.0)
--- NOTE | 2022-02-17 12:25 | P.HPHOSP_ITS ---
History of Present Illness Date of Service: 02/17/22 Attending physician on admission: Mukesh Kwan Chief Complaint: johnston 61F with pmh NSCLC on chemotherapy s/p LITA and RUL wedge resection, breast cancer, depression, HCV, HTN, COPD, PAF, opiate dependence presented with johnston that started yesterday. Also reporting associated orthopnea, chest tightness, palpitations, and fatigue. She had recent admission last month with new onset afib not on anticoagulation due to thrombocytopenia and anemia. During admission required transfusion on 01/24. H/H today is 6.2/18.7% (last 7.10/29 2.1% on 01/30) denies any recent bleeding episodes. CXR shows bilateral pleural effusions, right > left, unchanged from last CXR on 02/04. Last echocardiogram showed normal systolic function with EF > 70% with grade 2 diastolic dysfunction on 01/19/2022. No leukocytosis. Lactic acid 2.4, repeat 1.5. Creatinine 1.14, baseline 0.77. Troponin 84.9, BNP 149 (improved from baseline). EKG showing NSR with nonspecific ST wave abnormalities. One unit blood transfused with patient reporting increased SOB. Repeat CXR unchanged. Improved on 3L supplemental O2. Vitals otherwise stable. Also given 1g ceftriaxone. She does endorse chronic cough with productive sputum unchanged from baseline. She had a choking episode while out to eat 2 weeks ago and did present to the ED where admission was recommended but patient declined. Denies fevers, chills, recent sick contacts, nausea, vomiting, leg edema, chest pressure. Review of Systems Review of Systems: General: +fatigue. No fevers, malaise, unintentional weight loss HEENT: No blurred vision, diplopia. No sore throat, nasal congestion, rhinorrhea, sinus pain, ear pain Cardiovascular: +chest tightness, +palpitations. No leg edema Respiratory: +johnston,+orthopnea, +wheezing, +cough GI: No abdominal pain, nausea, vomiting, diarrhea, constipation, melena, hem atochezia : No dysuria, hematuria, increased urinary frequency, decreased urinary output MSK: No myalgia, back pain Neuro: No headaches, weakness, paresthesias Skin: No rashes or lesions [facility] Medical History Bilateral lung cancer Cancer of upper lobe of left lung (~2020) Cancer of upper lobe of right lung (~2019) COPD (chronic obstructive pulmonary disease) Depression GERD (gastroesophageal reflux disease) History of breast cancer (~2006) History of hepatitis C HTN (hypertension) Internal and external bleeding hemorrhoids New onset a-fib Obesity Pancytopenia Pulmonary nodules Smoker Tubular adenoma of colon Family History Mother History of lung cancer Brother History of lung cancer Maternal Grandmother Breast cancer in female Maternal Aunt Breast cancer in female Daughter Thyroid cancer Surgical History History of anterior colporrhaphy (~2016) History of back surgery (~2011) History of colonoscopy (~2014) History of hemorrhoidectomy (~2019) History of lobectomy of lung (~2019) History of lumpectomy of right breast (~2006) History of lung surgery (~2020) History of tubal ligation Social History Household Members: Significant Other Housing: Apartment Are you a primary child care sitter to a significant other at home: No Do you presently have visiting nurse or other home services: No Alcohol intake: never Patient Tobacco Use Status: Never used Tobacco Tobacco use type: Cigar Years Smoked: 46 Smoked in Last 30 Days: Yes Second Hand Smoke Exposure: No Use of substances other than those prescribed or required for medical reasons: No Substance Use Type: Marijuana Advance Directives: No service: No Current occupational status: disabled Current occupational exposures/hazards: No Meds Allergies Allergy/AdvReac Type Severity Reaction Status Date / Time lisinopril [LISINOPRIL] Allergy Severe SWELLING- Verified 01/15/22 12:39 ANGIOEDEMA codeine [CODEINE] Allergy Intermediate VOMITING/HIVES, Verified 01/15/22 12:39 vomiting, hives Active Medications: Current Medications Acetaminophen (Acetaminophen 325 Mg Tablet) 650 mg PO Q6H PRN PRN Reason: Pain, Mild (Pain Scale 1-3) Albuterol/Ipratropium (Albuterol/Iprat 2.5/0.5mg 3 Ml Ampul.Neb) 3 ml INHALE Q6-8H PRN PRN Reason: Shortness Of Breath Or Wheezing Buprenorphine/Naloxone (Buprenorphine/Naloxone 4/1 Mg Film) film SUBLINGUAL DAILY [facility] Dexamethasone (Dexamethasone 4 Mg Tablet) 8 mg PO BID [facility] Diltiazem HCl (Diltiazem Hcl Cd 180 Mg Cap.Er.24h) 180 mg PO DAILY [facility]; Protocol Docusate Sodium (Docusate Sodium 100 Mg Capsule) 100 mg PO DAILY PRN PRN Reason: Constipation Folic Acid (Folic Acid 1 Mg Tablet) 1 mg PO DAILY [facility] Nicotine (Nicotine 21 Mg Patch.Td24) mg TRANSDERMA DAILY [facility] Non-Formulary Medication (Mag&Al/Sim/Diphenhyd/Lidocaine [Magic Mouthwash]) 10 ml PO Q4H PRN PRN Reason: sore throat Non-Formulary Medication (Milnacipran [Savella]) 50 mg PO BID [facility] Non-Formulary Medication (Simvastatin) 20 mg PO DAILY [facility] Non-Formulary Medication (Umeclidinium-Vilanterol [Anoro Ellipta]) 1 puff INHALE DAILY [facility] Omeprazole (Omeprazole 20 Mg Capsule.Dr) 20 mg PO DAILY@0630 [facility] Ondansetron HCl (Ondansetron Odt 8 Mg Tab.Rapdis) 8 mg TRANSLINGU Q8H PRN PRN Reason: Nausea Paroxetine HCl (Paroxetine Hcl 30 Mg Tablet) 60 mg PO DAILY [facility] Pharmacy Consult (Consult Rx Perform Med Rec) 1 each MISCELLANE ONCE PRN PRN Reason: Consult order Sodium Chloride (0.9 % Sodium Chloride Flush 3 Ml Syringe) 3 ml IVFLUSH QSHIFT [facility] Vitamin D (Cholecalciferol (Vitamin D3) 25 Mcg Tablet) 50 mcg PO DAILY [facility] Home Medications Medication Instructions Recorded Confirmed Last Taken Type buprenorphine 4 mg-naloxone 1 mg 1 strip sublingual DAILY 01/18/22 02/17/22 02/15/22 History sublingual film (Suboxone) diltiazem HCl 180 mg 180 mg PO DAILY 01/18/22 02/17/22 02/15/22 History capsule,extended release 24 hr, controlled (DILT-XR) folic acid 1 mg tablet 1 mg PO DAILY 01/18/22 02/17/22 02/15/22 History metoprolol tartrate 50 1 tab PO DAILY 01/18/22 02/17/22 02/15/22 History mg-hydrochlorothiazide 25 mg tablet milnacipran 50 mg tablet (Savella) 50 mg PO BID 01/18/22 02/17/22 02/15/22 History omeprazole 20 mg capsule,delayed 20 mg PO DAILY@0630 01/18/22 02/17/22 02/15/22 History release paroxetine HCl 20 mg tablet 60 mg PO DAILY 01/18/22 02/17/22 02/15/22 History umeclidinium 62.5 mcg-vilanterol 1 puff inhalation DAILY 01/18/22 02/17/22 02/15/22 History 25 mcg/actuation powdr for inhalation (Anoro Ellipta) cholecalciferol (vitamin D3) 50 50 mcg PO DAILY 02/17/22 02/17/22 02/15/22 History mcg (2,000 unit) tablet (Vitamin D3) dexamethasone 4 mg tablet 8 mg PO BID 02/17/22 02/17/22 Unknown History ipratropium 0.5 mg-albuterol 3 mg 3 ml inhalation Q6-8H PRN 02/17/22 02/17/22 02/15/22 History (2.5 mg base)/3 mL nebulization Shortness Of Breath Or Wheezing soln nicotine 21 mg/24 hr daily 1 patch topical DAILY 02/17/22 02/17/22 02/15/22 History transdermal patch ondansetron HCl 8 mg tablet 8 mg PO Q8H PRN Nausea 02/17/22 02/17/22 Unknown History simvastatin 20 mg tablet 20 mg PO DAILY 02/17/22 02/17/22 02/15/22 History Physical Exam Vital Signs and Narrative: Vital Signs: Last Vital Signs Temp 98.2 F 02/17/22 10:43 Pulse 76 02/17/22 10:43 Resp 16 02/17/22 10:43 BP 162/85 H 02/17/22 10:43 Pulse Ox 100 02/17/22 10:16 O2 Del Method 02/17/22 10:16 O2 Flow Rate 2 02/17/22 10:16 Oxygen Flow Rate 2 02/17/22 07:43 BMI result Body Mass Index 28.1 Constitutional - Awake and Alert, No apparent distress Eyes - PERRLA, EOMI Cardiovascular - S1S2, RRR, No edema Respiratory - Normal lung expansion, Normal respiratory effort, No respiratory distress, few scattered wheezes, diminished lung sounds b/l lobes Gastrointestinal - NT / ND; +BS; No rebound or guarding - No CVA tenderness Extremities - no calf tenderness bilaterally, no swelling Musculoskeletal - Normal inspection, normal ROM Skin - Warm/Dry Neurological - Alert & oriented x3, CN II-XII in tact, 5/5 strength BUE and BLE Psychological - Appropriate affect Results Labs CBC and Chem 7: 02/17/22 06:02 02/17/22 06:02 Labs: Laboratory Results - last 24 hr 02/17/22 02/17/22 02/17/22 06:00 06:02 06:02 MCV 97.4 MCH 32.3 MCHC 33.2 RDW 22.6 H Plt Count 68 L D MPV 10.8 Immature Gran % (Auto) 2.9 H Neut % (Auto) 66.7 Lymph % (Auto) 10.3 L Lucas % (Auto) 19.8 H Eos % (Auto) 0.0 Baso % (Auto) 0.3 Lymph # (Auto) 0.6 L Lucas # (Auto) 1.2 Eos # (Auto) 0.0 Baso # (Auto) 0.0 Abs Immat Gran (auto) 0.17 H Absolute Neuts (auto) 4.0 Absolute Nucleated RBC 0.020 H Nucleated RBC % (auto) 0.3 H PT INR Anion Gap 19 Estim Creat Clear Calc 57.0 Estimated GFR 48 Random Glucose 198 H Lactic Acid Lactic Acid F/U @ 2Hr Calcium 8.2 L Total Bilirubin 1.1 H AST 20 ALT 19 Alkaline Phosphatase 84 D Troponin I High Sens B-Natriuretic Peptide Total Protein 7.1 Albumin 3.8 D COVID-19 ([facility]) COVID-19 Clin Com Blood Type A Positive Antibody Screen NEGATIVE Crossmatch See Detail 02/17/22 02/17/22 02/17/22 06:02 06:02 06:04 MCV MCH MCHC RDW Plt Count MPV Immature Gran % (Auto) Neut % (Auto) Lymph % (Auto) Lucas % (Auto) Eos % (Auto) Baso % (Auto) Lymph # (Auto) Lucas # (Auto) Eos # (Auto) Baso # (Auto) Abs Immat Gran (auto) Absolute Neuts (auto) Absolute Nucleated RBC Nucleated RBC % (auto) PT 12.5 INR 1.1 Anion Gap Estim Creat Clear Calc Estimated GFR Random Glucose Lactic Acid Lactic Acid F/U @ 2Hr Calcium Total Bilirubin AST ALT Alkaline Phosphatase Troponin I High Sens 84.9 H* B-Natriuretic Peptide 149 H Total Protein Albumin COVID-19 ([facility]) Negative COVID-19 Clin Com See Note Blood Type Antibody Screen Crossmatch 02/17/22 02/17/22 06:22 10:57 MCV MCH MCHC RDW Plt Count MPV Immature Gran % (Auto) Neut % (Auto) Lymph % (Auto) Lucas % (Auto) Eos % (Auto) Baso % (Auto) Lymph # (Auto) Lucas # (Auto) Eos # (Auto) Baso # (Auto) Abs Immat Gran (auto) Absolute Neuts (auto) Absolute Nucleated RBC Nucleated RBC % (auto) PT INR Anion Gap Estim Creat Clear Calc Estimated GFR Random Glucose Lactic Acid 2.4 H* Lactic Acid F/U @ 2Hr 1.5 Calcium Total Bilirubin AST ALT Alkaline Phosphatase Troponin I High Sens B-Natriuretic Peptide Total Protein Albumin COVID-19 ([facility]) COVID-19 Clin Com Blood Type Antibody Screen Crossmatch Imaging Radiologist's Impressions: Impressions Chest X-Ray 02/17/22 06:18 IMPRESSION: Examination is not significantly changed when compared to 02/04/2022. Chest X-Ray 02/17/22 11:27 IMPRESSION: Small right pleural effusion similar to the most recent study, but improved from the 02/04/2022 study. Assessment and Plan (1) Severe anemia: Status: Acute (2) JOHNSTON (dyspnea on exertion): Status: Acute Plan 61F with pmh NSCLC on chemotherapy s/p LITA and RUL wedge resection, breast cancer, depression, HCV, HTN, COPD, PAF, opiate dependence to be observed for symptomatic anemia with MADHU. #Symptomatic anemia secondary to non-small cell lung cancer -H/H 6.2/18.7%, denies bleeding -Being transfused 2 units currenctly -administer 20 mg Lasix IV in between units of blood due to bilateral pleural effusions -continue supplemental oxygen to maintain oximetry 92% or greater -repeat H/H at 21:00 and follow CBC daily # acute hypoxic respiratory failure secondary to anemia -requiring 3 L supplemental O2, not oxygen dependent at baseline -will check CTA chest to rule out PE given hypercoagulability associated with malignancy and also rule out pneumonia as she did have choking episode 2 weeks ago -continue supplemental O2 to maintain oximetry 92% or greater # MADHU secondary to worsening anemia -receiving 2 units packed red Blood cells -repeat BMP a.m. and consider IV hydration as needed. Hold on IVF at this time due to bilateral pleural effusions to prevent further fluid overload # demand ischemia secondary to symptomatic anemia -troponin elevated at 84. Repeat pending. EKG showing NSR with nonspecific ST abnormalities. -lactic acid initially elevated at 2.4, improved to 1.5. Not severe sepsis # non-small cell lung cancer on chemotherapy s/p bilateral upper lobe right wedge resection -continue chemotherapy outpatient -B/lpleural effusions -oncology consult placed -continue dexamethasone # paroxysmal atrial fibrillation- rate controlled -chads Vasc score 2. Hold on anticoagulation due to thrombocytopenia and anemia -continue diltiazem # diastolic heart failure-stable -BNP baseline -B/l pleural effusions likely secondary to NSCLC # COPD without acute exacerbation -treat hypoxia as above -symptoms baseline -on dexamethasone -continue maintenance medications -albuterol p.r.n. # depression -continue home meds # opiate dependence -continue Suboxone #HTN -continue diltiazem and metoprolol -hold hctz due to madhu dvt prophylaxis- mechanical full code Quality Stroke Does the patient have a stroke diagnosis?: No VTE Prior VTE?: No VTE Risk Level:: Medical - moderate - high VTE Device Contraindication: N/A - Device Ordered VTE Drug Contraindication: Treatment Not Indicated
[2022-02-17] MEDS: iohexoL 350 MG/ML 100 ML INFUS..BTL IV (13:00)
[2022-02-17] MEDS: Furosemide 20 MG/2 ML VIAL IVPUSH (13:26)
[2022-02-17] MEDS: Buprenorphine/Naloxone 4/1 mg FILM 1 FILM SUBLINGUAL (13:26)
[2022-02-17] MEDS: dilTIAZem HCL CD 180 MG CAP.ER.24H PO (13:26)
[2022-02-17 13:54] LABS: Troponin-I High Sensitivity 62.3 ng/L (<3.5-17.0)
--- NOTE | 2022-02-17 14:08 | PM.HEMONCCN ---
Subjective - Subjective Chief complaint: Shortness of breath Patient: known to practice within the last 3 years Consult date: 02/17/22 Requesting Physician: Susie Holcomb Primary Care Provider: Daphne Rodriguez MD Medical Summary: diagnosis: Metastatic non-small cell cell lung cancer HPI - Consult Narrative Reason for consult: metastatic lung cancer, anemia Narrative: Elida Schumacher is a 61 year old woman with metastatic lung cancer who has been receiving chemotherapy now admitted for worsening anemia and shortness of breath. Her hemoglobin was 6.2 gram/dL on admission, previously it was 7.7 gram/dL. She has pancytopenia from recent chemotherapy however her blood counts had improved and she has not received any recent chemotherapy. She denies any history of bleeding either rectally, no hematuria or hemoptysis. She says she was well until yesterday when she started to feel very short of breath. Further evaluation in the ED showed unchanged chest x-ray. She had a CT angiogram which was negative for pulmonary embolism. He is admitted for blood transfusion and further evaluation. She denies fever or chills. No nausea or emesis. No abdominal pain or diarrhea. Review of Systems - Constitutional Reports as per HPI, Reports fatigue, Reports lack of energy, Reports malaise, Reports poor appetite PMFSH Medical History: Medical History (Last Reviewed 02/17/22 @ 06:09 by Junior Barker MD) Bilateral lung cancer Cancer of upper lobe of left lung Onset Date: ~2020 Cancer of upper lobe of right lung Onset Date: ~2019 COPD (chronic obstructive pulmonary disease) Depression GERD (gastroesophageal reflux disease) History of breast cancer Onset Date: ~2006 History of hepatitis C HTN (hypertension) Internal and external bleeding hemorrhoids New onset a-fib Obesity Pancytopenia Pulmonary nodules Smoker Tubular adenoma of colon Family History: Family History (Last Reviewed 02/17/22 @ 12:34 by MATTI Ventura) Mother History of lung cancer Brother History of lung cancer Maternal Grandmother Breast cancer in female Maternal Aunt Breast cancer in female Daughter Thyroid cancer Surgical History: Surgical History (Last Reviewed 02/17/22 @ 12:34 by MATTI Ventura) History of anterior colporrhaphy Onset Date: ~2016 History of back surgery Onset Date: ~2011 History of colonoscopy Onset Date: ~2014 History of hemorrhoidectomy Onset Date: ~2019 History of lobectomy of lung Onset Date: ~2019 History of lumpectomy of right breast Onset Date: ~2006 History of lung surgery Onset Date: ~2020 History of tubal ligation Social History: Social History (Last Reviewed 02/17/22 @ 12:34 by MATTI Ventura) Living Situation History: Household Members: Spouse Housing: Apartment Are you a primary rn home care to a significant other at home: No Do you presently have visiting nurse or other home services: No Alcohol History: Unable to assess alcohol history related to: Unable to respond Tobacco History: Patient Tobacco Use Status: Never used Tobacco Tobacco use type: Cigar Years Smoked: 46 Smoked in Last 30 Days: Yes Second Hand Smoke Exposure: No Substance Use History: Use of substances other than those prescribed or required for medical reasons: Yes Substance Use Type: Marijuana Substance Use Frequency: Occasionally Last Used Substance: Just Prior to Admission Currently Displaying Signs/Symptoms of Drug Intoxication Withdrawal: No Any prior treatment program specific to substance use: No Domestic Abuse History: Have you been hit, kicked, punched, or otherwise hurt by someone within the past year? If so, by whom?: No Do you feel safe in your current relationship?: No Is there a partner from a previous relationship who is making you feel unsafe now?: No Are you made to feel afraid or neglected: No Advance Directives: Advance Directives: No Advance Directives Information Provided: Advance Directives Information Provided comment: declined Homicidal Assessment: Do you have thoughts of harming others: None Do you have a plan to hurt others: No Plan Nutrition Assessment: Recently lost weight without trying: Yes How much weight loss: 14-23 pounds Nutrition Risks: No Nutritional Risk Patient : No : No Occupation Assessmet: service: No Current occupational status: disabled Current occupational exposures/hazards: No Home Medications and Allergies Current Medications: Current Medications Acetaminophen (Acetaminophen 325 Mg Tablet) 650 mg PO Q6H PRN PRN Reason: Pain, Mild (Pain Scale 1-3) Albuterol/Ipratropium (Albuterol/Iprat 2.5/0.5mg 3 Ml Ampul.Neb) 3 ml INHALE Q6H PRN PRN Reason: Shortness Of Breath Or Wheezing Atorvastatin Calcium (Atorvastatin Calcium 10 Mg Tablet) 10 mg PO DAILY [facility] Buprenorphine/Naloxone (Buprenorphine/Naloxone 4/1 Mg Film) 1 film SUBLINGUAL DAILY [facility] Last Admin: 02/17/22 13:26 Dose: 1 film Dexamethasone (Dexamethasone 4 Mg Tablet) 8 mg PO BID [facility] Diltiazem HCl (Diltiazem Hcl Cd 180 Mg Cap.Er.24h) 180 mg PO DAILY [facility]; Protocol Last Admin: 02/17/22 13:26 Dose: 180 mg Docusate Sodium (Docusate Sodium 100 Mg Capsule) 100 mg PO DAILY PRN PRN Reason: Constipation Folic Acid (Folic Acid 1 Mg Tablet) 1 mg PO DAILY [facility] Lidocaine/Diphenhydr/Alum/Mg/Simeth (Mag&Al/Sim/Diphenhyd/Lidocaine 10 Ml Oral.Susp) 10 ml PO Q4H PRN PRN Reason: sore throat Nicotine (Nicotine 21 Mg Patch.Td24) 21 mg TRANSDERMA DAILY [facility] Non-Formulary Medication (Milnacipran [Savella]) 50 mg PO BID [facility] Non-Formulary Medication (Umeclidinium-Vilanterol [Anoro Ellipta]) 1 puff INHALE DAILY [facility] Omeprazole (Omeprazole 20 Mg Capsule.Dr) 20 mg PO DAILY@0630 [facility] Ondansetron HCl (Ondansetron Odt 8 Mg Tab.Rapdis) 8 mg TRANSLINGU Q8H PRN PRN Reason: Nausea Paroxetine HCl (Paroxetine Hcl 30 Mg Tablet) 60 mg PO DAILY [facility] Pharmacy Consult (Consult Rx Perform Med Rec) 1 each MISCELLANE ONCE PRN PRN Reason: Consult order Sodium Chloride (0.9 % Sodium Chloride Flush 3 Ml Syringe) 3 ml IVFLUSH QSHIFT [facility] Vitamin D (Cholecalciferol (Vitamin D3) 25 Mcg Tablet) 50 mcg PO DAILY [facility] Home Medications Medication Instructions Recorded Confirmed Type buprenorphine 4 mg-naloxone 1 mg 1 strip sublingual DAILY 01/18/22 02/17/22 History sublingual film (Suboxone) diltiazem HCl 180 mg 180 mg PO DAILY 01/18/22 02/17/22 History capsule,extended release 24 hr, controlled (DILT-XR) folic acid 1 mg tablet 1 mg PO DAILY 01/18/22 02/17/22 History metoprolol tartrate 50 1 tab PO DAILY 01/18/22 02/17/22 History mg-hydrochlorothiazide 25 mg tablet milnacipran 50 mg tablet (Savella) 50 mg PO BID 10/09/22 11/08/22 History omeprazole 20 mg capsule,delayed 20 mg PO DAILY@0630 01/18/22 02/17/22 History release paroxetine HCl 20 mg tablet 60 mg PO DAILY 01/18/22 02/17/22 History umeclidinium 62.5 mcg-vilanterol 1 puff inhalation DAILY 01/18/22 02/17/22 History 25 mcg/actuation powdr for inhalation (Anoro Ellipta) cholecalciferol (vitamin D3) 50 50 mcg PO DAILY 02/17/22 02/17/22 History mcg (2,000 unit) tablet (Vitamin D3) dexamethasone 4 mg tablet 8 mg PO BID 02/17/22 02/17/22 History ipratropium 0.5 mg-albuterol 3 mg 3 ml inhalation Q6-8H PRN 02/17/22 02/17/22 History (2.5 mg base)/3 mL nebulization Shortness Of Breath Or Wheezing soln nicotine 21 mg/24 hr daily 1 patch topical DAILY 02/17/22 02/17/22 History transdermal patch ondansetron HCl 8 mg tablet 8 mg PO Q8H PRN Nausea 02/17/22 02/17/22 History simvastatin 20 mg tablet 20 mg PO DAILY 02/17/22 02/17/22 History Allergies Allergy/AdvReac Type Severity Reaction Status Date / Time lisinopril [LISINOPRIL] Allergy Severe SWELLING- Verified 01/15/22 12:39 ANGIOEDEMA codeine [CODEINE] Allergy Intermediate VOMITING/HIVES, Verified 01/15/22 12:39 vomiting, hives Physical Exam Vital signs: Vital Signs Temp 98.6 F 02/17/22 13:51 Pulse 94 02/17/22 13:51 Resp 22 H 02/17/22 13:51 BP 174/107 H 02/17/22 13:51 Pulse Ox 100 02/17/22 13:15 O2 Del Method 02/17/22 13:15 O2 Flow Rate 3 02/17/22 13:15 Intake & Output 02/16/22 02/17/22 02/17/22 18:59 06:59 18:59 Intake Total 400 / 400 Balance 400 / 400 Intake: Intake (Blood Product) Amount 350 / 350 Red Blood Cells (E0382) Unit 350 / 350 [id number] Red Blood Cells (E0382) Unit 0 / 0 [id number] Intake, IV Amount 50 / 50 cefTRIAXone sodium 1 gm In 0.9 50 / 50 % Sodium Chloride 50 ml @ 100 mls/hr IV ONCE ONE Rx#: [id number] Other: Weight 81.647 kg Weight 81.647 kg - Constitutional Present: mild distress, chronically ill appearing - Routine HEENT Exam Head: Present: normocephalic Eye: Present: EOMI, conjunctivae pale, PERRL - Routine Neck Exam Present: supple. Absent: lymphadenopathy - Routine Respiratory Exam Present: decreased breath sounds, wheezes - Routine Cardiovascular Exam Cardiovascular: Present: S1, S2, tachycardia - Routine Abdominal Exam Absent: tenderness - Routine Extremities Exam Absent: tenderness - Routine Skin Exam Present: intact - Routine Neurological Exam Present: alert, oriented X3 Hem/Onc Consult Result - Labs CBC & Chem 7: 02/18/22 04:24 02/18/22 04:24 Labs: Short CBC 02/17/22 Range/Units 06:02 WBC 6.0 (4.8-10.8) X10*3/uL Hgb 6.2 L* (12.0-16.0) g/dl Hct 18.7 L* (37.0-47.0) % Plt Count 68 L D (160-400) X10*3/uL BMP 02/17/22 06:02 Sodium 140 Potassium 3.6 Chloride 95 L Carbon Dioxide 30 H BUN 19 H Creatinine 1.14 Calcium 8.2 L Liver Function 02/17/22 Range/Units 06:02 Total Bilirubin 1.1 H (0.0-1.0) mg/dL AST 20 (5-31) U/L ALT 19 (0-31) U/L Alkaline Phosphatase 84 D (39-117) U/L Albumin 3.8 D (3.5-5.0) g/dL Assessment and Plan Patient Active problem list reviewed?: Yes (1) Cancer of upper lobe of right lung Problem details: (stage 1 - s/p RUL lobectomy 07/2019) Status: Chronic Assessment and plan: 1. This is a pleasant 61-year-old woman with bilateral lung adenocarcinoma. She has been diagnosed with recurrent metastatic lung cancer in the right with bone and brain metastasis in september 2021. Patient received 4 cycles of chemotherapy with pembrolizumab, carboplatin and pemetrexed on 11/13/2021. She has had multiple recent admissions for cytopenias and infection. She required blood and platelet transfusions. She has developed worsening shortness of breath, CT angiogram is negative for PE but shows changes of infectious bronchiolitis. She tested positive for RSV. She is receiving Solu-Medrol and DuoNebs. She is on supplemental oxygen. She has received 2 units blood transfusion. As for her lung cancer, current imaging shows a right lower lobe density to have decreased in size, currently measures 0.8 cm. Previously it was 1.4 cm. She has asymptomatic brain metastasis as well as bone metastasis. She is due for brain MRI with contrast. This can be performed as an outpatient unless she develops symptoms. Continue with supportive care. Thank you for the consult. - Time Spent With Patient Time Spent with Patient (in minutes): 15
--- NOTE | 2022-02-17 15:41 | PC.NURSE ---
Assumed care for pt. Pt is currently sleeping. Breaths are even unlabored. O2 sat 94% 2L nc. Pt currently receiving 2nd of RBC's on 20G on R AC. RBC bag placed on pressure bag to improve blood flow. 20G on R ac with nothing running at this time. No apparent distress noted. Will continue to monitor.
[2022-02-17] MEDS: 0.9 % Sodium Chloride Flush 3 ML SYRINGE IVFLUSH (16:14)
[2022-02-17 18:21] LABS: Iron 81 mcg/dL (30-160); Percent Iron Saturation 20 % (15-50); Total Iron Binding Capacity 398 mcg/dL (228-428); Unsaturated Iron Binding 317 ug/dL
--- NOTE | 2022-02-17 18:26 | PC.NURSE ---
Pt arrived in [facility] in no apparent distress-blood transfusion d/c prior to transport to unit
[2022-02-17 18:58] LABS: Folate 14.9 ng/mL (> or = 4.0); Vitamin B12 1454 pg/mL (200-900)
--- NOTE | 2022-02-17 20:40 | MHC.CM.PN ---
Attempted to meet with patient for discharge planning needs. Pt sleeping soundly, snoring. Will attempt when patient wakes. CM to follow for d/c needs.
--- NOTE | 2022-02-17 21:09 | PC.NURSE ---
pt's daughter called for an update on pt. informed that we are waiting for repeat CBC. daughter asked that we call with updates.
[2022-02-17 23:46] LABS: MANUAL DIFF FLAG NO
[2022-02-17 23:48] LABS: Basophils Percent Auto 0.4 % (0-2); Hematocrit 23.9 % (37.0-47.0); Hemoglobin 8.2 g/dl (12.0-16.0); Imm Gran Abs Auto 0.16 X10*3/uL (0.00-0.03); Imm Gran Pct Auto 2.1 % (0.0-0.4); Lymphocytes Absolute Auto 0.4 X10*3/uL (1.2-4.9); Lymphocytes Percent Auto 5.1 % (20-40); Mean Corpuscular HGB Conc 34.3 g/dl (31.0-35.0); Mean Corpuscular Hemoglobin 32.3 pg (27.0-33.0); Mean Corpuscular Volume 94.1 fL (80.0-98.0); Mean Platelet Volume 10.5 fL (9.4-12.3); Monocytes Absolute Auto 1.5 X10*3/uL (0.1-1.2); Monocytes Percent Auto 18.9 % (2-11); NRBC Pct Auto 0.4 /100WBC (0.0-0.2); Neutrophils Absolute Auto 5.7 x10*3/uL (2.0-8.3); Neutrophils Percent Auto 73.5 % (45-73); Red Blood Count 2.54 X10*6/uL (4.20-5.50); Red Cell Distribution Width 19.7 % (11.0-16.0); White Blood Count 7.7 X10*3/uL (4.8-10.8)
[2022-02-17 23:51] LABS: Platelet Count 57 X10*3/uL (160-400)
[2022-02-18] VITALS (10 sets, daily range): BP systolic 140–157; BP diastolic 82–98; PULSE 78–109; RESP 16–25; TEMP 36–37.1; O2SAT 92–98; BMI 28.1
[2022-02-18] MEDS: 0.9 % Sodium Chloride Flush 3 ML SYRINGE IVFLUSH ×4 (00:40→23:43)
[2022-02-18 04:46] LABS: Basophils Percent Auto 0.4 % (0-2); Hematocrit 24.3 % (37.0-47.0); Hemoglobin 8.2 g/dl (12.0-16.0); Imm Gran Abs Auto 0.14 X10*3/uL (0.00-0.03); Imm Gran Pct Auto 2.1 % (0.0-0.4); Lymphocytes Absolute Auto 0.3 X10*3/uL (1.2-4.9); Lymphocytes Percent Auto 4.6 % (20-40); MANUAL DIFF FLAG SCAN; Mean Corpuscular HGB Conc 33.7 g/dl (31.0-35.0); Mean Corpuscular Hemoglobin 31.9 pg (27.0-33.0); Mean Corpuscular Volume 94.6 fL (80.0-98.0); Mean Platelet Volume 10.5 fL (9.4-12.3); Monocytes Absolute Auto 1.4 X10*3/uL (0.1-1.2); Monocytes Percent Auto 20.7 % (2-11); NRBC Pct Auto 0.7 /100WBC (0.0-0.2); Neutrophils Absolute Auto 4.9 x10*3/uL (2.0-8.3); Neutrophils Percent Auto 72.2 % (45-73); Red Blood Count 2.57 X10*6/uL (4.20-5.50); Red Cell Distribution Width 19.9 % (11.0-16.0); SCAN SMEAR FLAG 1; White Blood Count 6.7 X10*3/uL (4.8-10.8)
[2022-02-18 04:47] LABS: Platelet Count 56 X10*3/uL (160-400)
[2022-02-18 05:04] LABS: Anion Gap 16 (12-20); Blood Urea Nitrogen 22 mg/dL (9-16); Calcium 7.8 mg/dL (8.4-10.2); Carbon Dioxide 31 mmol/L (22-29); Chloride 94 mmol/L (96-108); Creatinine Clr Calc Pharmacy 64.3; Estimated Glomerular Filt Rate 56; Glucose Random 154 mg/dL (60-115); Potassium 3.2 mmol/L (3.3-5.1); Sodium 138 mmol/L (135-145)
[2022-02-18 05:06] LABS: SLIDE REVIEW VERIFIED
[2022-02-18] MEDS: Omeprazole 20 MG CAPSULE.DR PO (05:58)
--- NOTE | 2022-02-18 06:09 | PC.NURSE ---
pt moved to OVERFLOW 6 as suction in room 1 was not working. This RN called ICU to have pt switched to new room on tele monitor
[2022-02-18] MEDS: Cholecalciferol (Vitamin D3) 25 MCG TABLET 50 MCG PO (08:24)
[2022-02-18] MEDS: Folic Acid 1 MG TABLET PO (08:24)
[2022-02-18] MEDS: Atorvastatin Calcium 10 MG TABLET PO (08:24)
[2022-02-18] MEDS: Potassium Chloride Packet 20 MEQ PACKET 40 MEQ PO (08:25)
--- NOTE | 2022-02-18 09:03 | MHC.CM.PN ---
Patient lives alone in an apartment and presently uses a walker to assist with mobility, but feels she may also need a w/c. 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 Home is the goal and CM has initiated and will follow for dc planning. Patient has received Moderna/Covid vax x2 and her PCP is Daphne Rodriguez.MAURICE addressed.
[2022-02-18] MEDS: PARoxetine HCL 30 MG TABLET 60 MG PO (09:49)
[2022-02-18] MEDS: Buprenorphine/Naloxone 4/1 mg FILM 1 FILM SUBLINGUAL (09:49)
[2022-02-18] MEDS: dilTIAZem HCL CD 180 MG CAP.ER.24H PO (09:49)
[2022-02-18] MEDS: methylPREDNISolone Sod Succ 125 MG/2 ML VIAL 60 MG IVPUSH ×2 (09:49→20:54)
--- NOTE | 2022-02-18 11:25 | HO.PM.IMPN ---
Subjective Subjective Date of Service: 02/18/22 Interval History: Seen in follow-up for symptomatic anemia with non-small cell lung cancer Interval history: Patient continues with increased work of breathing, dyspnea on exertion, and hypoxia requiring 2 L supplemental O2 despite improvement in H/H following 2 units packed red blood cells. She is very anxious. Denies any chest pain, palpitations, lightheadedness. Has chronic cough with brown sputum production but denies any increase and quality or severity. No fevers, chills. Review of Systems General: No fevers, malaise, unintentional weight loss HEENT: No blurred vision, diplopia. Cardiovascular: No chest pain, palpitations, or leg edema Respiratory: + shortness of breath, +wheezing,+ cough GI: No abdominal pain, nausea, vomiting, diarrhea, constipation, melena, hematochezia : No dysuria, hematuria, increased urinary frequency, decreased urinary output MSK: No myalgia, back pain Neuro: No headaches, weakness, paresthesias Psych: +anxiety Skin: No rashes or lesions Physical Exam Vital Signs: Vital Signs: Last Vital Signs Temp 96.8 F 02/18/22 08:40 Pulse 94 02/18/22 08:40 Resp 25 H 02/18/22 08:40 BP 157/95 H 02/18/22 08:40 Pulse Ox 94 02/18/22 08:40 O2 Del Method 02/18/22 08:40 O2 Flow Rate 2 02/18/22 08:40 Oxygen Flow Rate 2 02/17/22 07:43 BMI result Body Mass Index 28.1 Constitutional - Awake and Alert, No apparent distress Eyes - PERRLA, EOMI Cardiovascular - S1S2, RRR, No edema Respiratory - Normal lung expansion, Normal respiratory effort, increased work of breathing with accessory muscle usage with oximetry 90-2% on RA. Diffuse wheezing and rhonchi with coarse lung sounds Gastrointestinal - NT / ND; +BS; No rebound or guarding Extremities - no calf tenderness bilaterally, no swelling Skin - Warm/Dry Neurological - Alert & oriented x3 Psychological - Appropriate affect Objective Data Active Medications Acetaminophen (Acetaminophen 325 Mg Tablet) 650 mg PO Q6H PRN PRN Reason: Pain, Mild (Pain Scale 1-3) Albuterol Sulfate (Albuterol Sulfate (0.083%) 2.5 Mg/3 Ml Vial.Neb) 2.5 mg INHALE Q2H PRN PRN Reason: Shortness of Breath/Wheezing Albuterol/Ipratropium (Albuterol/Iprat 2.5/0.5mg 3 Ml Ampul.Neb) 3 ml INHALE Q6H PRN PRN Reason: Shortness Of Breath Or Wheezing Albuterol/Ipratropium (Albuterol/Iprat 2.5/0.5mg 3 Ml Ampul.Neb) 3 ml INHALE RQ4H WHILE AWAKE [facility] Atorvastatin Calcium (Atorvastatin Calcium 10 Mg Tablet) 10 mg PO DAILY [facility] Last Admin: 02/18/22 08:24 Dose: 10 mg Documented By: PATSY Buprenorphine/Naloxone (Buprenorphine/Naloxone 4/1 Mg Film) 1 film SUBLINGUAL DAILY [facility] Last Admin: 02/18/22 09:49 Dose: 1 film Documented By: PATSY Diltiazem HCl (Diltiazem Hcl Cd 180 Mg Cap.Er.24h) 180 mg PO DAILY [facility]; Protocol Last Admin: 02/18/22 09:49 Dose: 180 mg Documented By: PATSY Comments: BP 147/91 HR 87 Docusate Sodium (Docusate Sodium 100 Mg Capsule) 100 mg PO DAILY PRN PRN Reason: Constipation Folic Acid (Folic Acid 1 Mg Tablet) 1 mg PO DAILY [facility] Last Admin: 02/18/22 08:24 Dose: 1 mg Documented By: PATSY Lidocaine/Diphenhydr/Alum/Mg/Simeth (Mag&Al/Sim/Diphenhyd/Lidocaine 10 Ml Oral.Susp) 10 ml PO Q4H PRN PRN Reason: sore throat Methylprednisolone Sodium Succinate (Methylprednisolone Sod Succ 125 Mg/2 Ml Vial) 60 mg IVPUSH Q12H [facility] Last Admin: 02/18/22 09:49 Dose: 60 mg Documented By: PATSY Nicotine (Nicotine 21 Mg Patch.Td24) 21 mg TRANSDERMA DAILY [facility] Last Admin: 02/18/22 08:26 Dose: Not Given Documented By: PATSY Non-Admin Reason: Patient Refused Non-Formulary Medication (Milnacipran [Savella]) 50 mg PO BID [facility] Omeprazole (Omeprazole 20 Mg Capsule.Dr) 20 mg PO DAILY@0630 [facility] Last Admin: 02/18/22 05:58 Dose: 20 mg Documented By: ROSEANNE Ondansetron HCl (Ondansetron Odt 8 Mg Tab.Rapdis) 8 mg TRANSLINGU Q8H PRN PRN Reason: Nausea Paroxetine HCl (Paroxetine Hcl 30 Mg Tablet) 60 mg PO DAILY [facility] Last Admin: 02/18/22 09:49 Dose: 60 mg Documented By: PATSY Pharmacy Consult (Consult Rx Perform Med Rec) 1 each MISCELLANE ONCE PRN PRN Reason: Consult order Sodium Chloride (0.9 % Sodium Chloride Flush 3 Ml Syringe) 3 ml IVFLUSH QSHIFT [facility] Last Admin: 02/18/22 09:50 Dose: 3 ml Documented By: PATSY Vitamin D (Cholecalciferol (Vitamin D3) 25 Mcg Tablet) 50 mcg PO DAILY [facility] Last Admin: 02/18/22 08:24 Dose: 50 mcg Documented By: PATSY Labs CBC & Chem 7: 02/18/22 04:24 02/18/22 04:24 Labs: Laboratory Results - last 24 hr 02/17/22 02/17/22 02/17/22 06:00 06:02 06:02 MCV MCH MCHC RDW Plt Count MPV Immature Gran % (Auto) Neut % (Auto) Lymph % (Auto) [place] % (Auto) Eos % (Auto) Baso % (Auto) Lymph # (Auto) [place] # (Auto) Eos # (Auto) Baso # (Auto) Abs Immat Gran (auto) Absolute Neuts (auto) Absolute Nucleated RBC Nucleated RBC % (auto) Smear Tech's Comments Anion Gap Estim Creat Clear Calc Estimated GFR Random Glucose Lactic Acid F/U @ 2Hr Calcium Iron 81 TIBC 398 % Saturation 20 Unsat Iron Binding 317 Troponin I High Sens Vitamin B12 1454 H Folate 14.9 Blood Type A Positive Antibody Screen NEGATIVE Crossmatch See Detail 02/17/22 02/17/22 02/17/22 10:57 13:07 23:41 MCV 94.1 MCH 32.3 MCHC 34.3 RDW 19.7 H Plt Count 57 L MPV 10.5 Immature Gran % (Auto) 2.1 H Neut % (Auto) 73.5 H Lymph % (Auto) 5.1 L [place] % (Auto) 18.9 H Eos % (Auto) 0.0 Baso % (Auto) 0.4 Lymph # (Auto) 0.4 L [place] # (Auto) 1.5 H Eos # (Auto) 0.0 Baso # (Auto) 0.0 Abs Immat Gran (auto) 0.16 H Absolute Neuts (auto) 5.7 Absolute Nucleated RBC 0.030 H Nucleated RBC % (auto) 0.4 H Smear Tech's Comments Anion Gap Estim Creat Clear Calc Estimated GFR Random Glucose Lactic Acid F/U @ 2Hr 1.5 Calcium Iron TIBC % Saturation Unsat Iron Binding Troponin I High Sens 62.3 H* Vitamin B12 Folate Blood Type Antibody Screen Crossmatch 02/18/22 02/18/22 04:24 04:24 MCV 94.6 MCH 31.9 MCHC 33.7 RDW 19.9 H Plt Count 56 L MPV 10.5 Immature Gran % (Auto) 2.1 H Neut % (Auto) 72.2 Lymph % (Auto) 4.6 L [place] % (Auto) 20.7 H Eos % (Auto) 0.0 Baso % (Auto) 0.4 Lymph # (Auto) 0.3 L [place] # (Auto) 1.4 H Eos # (Auto) 0.0 Baso # (Auto) 0.0 Abs Immat Gran (auto) 0.14 H Absolute Neuts (auto) 4.9 Absolute Nucleated RBC 0.050 H Nucleated RBC % (auto) 0.7 H Smear Tech's Comments VERIFIED Anion Gap 16 Estim Creat Clear Calc 64.3 Estimated GFR 56 Random Glucose 154 H Lactic Acid F/U @ 2Hr Calcium 7.8 L Iron TIBC % Saturation Unsat Iron Binding Troponin I High Sens Vitamin B12 Folate Blood Type Antibody Screen Crossmatch Microbiology Microbiology Results: Microbiology 02/17/22 06:22 Blood Culture - Preliminary Blood - Venous No growth after 24 hours. 02/17/22 06:22 Blood Culture - Preliminary Blood - Venous No growth after 24 hours. Assessment and Plan (1) Severe anemia: Status: Acute (2) Bronchiolitis: Status: Acute Plan 61F with pmh NSCLC on chemotherapy s/p LITA and RUL wedge resection, breast cancer, depression, HCV, HTN, COPD, PAF, opiate dependence to be observed for symptomatic anemia with VIKTORIYA. # chronic normocytic anemia secondary to non-small cell lung cancer -H/H improved to 8.2/24.3% 2 units packed red blood cells yesterday -denies any bleeding episodes -however shortness of breath and hypoxia does persist. See below -follow CBC daily # acute hypoxic respiratory failure- initially thought to be secondary to anemia. However anemia has improved following blood transfusions. CTA of chest showing bronchiolitis now with acute COPD exacerbation -requiring 2 L supplemental O2, not oxygen dependent at baseline but states Dr. Samuels and her PCP have considered home O2 -CTA chest negative for PE -continue supplemental O2 to maintain oximetry 92% or greater -will need home O2 evaluation #Bronchiolitis -CTA chest yesterday ordered given hypoxia negative for PE. However, shows probably infectious bronchiolitis -Respiratory panel positive for RSV. Droplet precautions -Now with increased wheezing and rhonchi on exam with increased WOB. CXR pending -Continue supplemental O2 to maintain neck symmetry of 92% or greater -pulmonology consulted -IV Solu-Medrol -DuoNebs q.4h while awake -albuterol q.2h p.r.n. # acute COPD exacerbation likely secondary to infectious bronchiolitis -Continue supplemental O2 to maintain neck symmetry of 92% or greater -pulmonology consulted -IV Solu-Medrol -DuoNebs q.4h while awake -albuterol q.2h p.r.n. # VIKTORIYA secondary to worsening anemia- resolved following 2 units PBRC -Creat 1.01 (baseline 0.77) -Encourage PO fluids -Follow BMP # demand ischemia secondary to symptomatic anemia -troponin elevated at 84.? Repeat 62.3. EKG showing NSR with nonspecific ST abnormalities. -lactic acid initially elevated at 2.4, improved to 1.5.? Not severe sepsis # non-small cell lung cancer on chemotherapy s/p bilateral upper lobe right wedge resection -continue chemotherapy outpatient -B/l pleural effusions. Repeat CXR -oncology consult placed # paroxysmal atrial fibrillation- rate controlled -chads Vasc score 2.? Hold on anticoagulation due to thrombocytopenia and anemia -continue diltiazem # diastolic heart failure-stable -BNP baseline -B/l pleural effusions likely secondary to NSCLC. -echo 01/19/22 hyperdynamic LV systolic function EF >70%, grade 2 diastolic dysfunction. # depression -continue home meds # opiate dependence -continue Suboxone #HTN -continue diltiazem and metoprolol -hold hctz due to viktoriya dvt prophylaxis- mechanical full code Quality Stroke Does the patient have a stroke diagnosis?: No VTE Prior VTE?: No VTE Risk Level:: Medical - moderate - high VTE Device Contraindication: N/A - Device Ordered VTE Drug Contraindication: Treatment Not Indicated
[2022-02-18] MEDS: Albuterol/Iprat 2.5/0.5MG 3 ML AMPUL.NEB INHALE ×3 (11:44→20:02)
[2022-02-18 15:00] LABS: Adenovirus PCR Not Detected (Not Detect.); Bordetella parapertussis PCR Not Detected (Not Detect.); Bordetella pertussis PCR Not Detected (Not Detect.); Chlamydia pneumoniae PCR Not Detected (Not Detect.); Coronavirus 229E PCR Not Detected (Not Detect.); Coronavirus HKU1 PCR Not Detected (Not Detect.); Coronavirus NL63 PCR Not Detected (Not Detect.); Coronavirus OC43 PCR Not Detected (Not Detect.); Human metapneumovirus PCR Not Detected (Not Detect.); Influenza A PCR Not Detected (Not Detect.); Influenza B PCR Not Detected (Not Detect.); Mycoplasma pneumoniae PCR Not Detected (Not Detect.); Parainfluenza 1 PCR Not Detected (Not Detect.); Parainfluenza 2 PCR Not Detected (Not Detect.); Parainfluenza 3 PCR Not Detected (Not Detect.); Rhino/Enterovirus PCR Not Detected (Not Detect.); SARS-CoV-2 PCR Not Detected (Not Detect.)
[2022-02-18 15:02] LABS: Parainfluenza 4 PCR Not Detected (Not Detect.); RSV PCR Detected (Not Detect.)
--- NOTE | 2022-02-18 16:37 | P.CONPL_ITS ---
History of Present Illness History of Present Illness Consult date: 02/18/22 Requesting physician: Susie Holcomb Reason for consult: dyspnea, cough, hypoxemia and pleural effusion Chief complaint: Symptomatic anemia Narrative: This 61F with PMH of NSCLC on chemotherapy s/p LITA and RUL wedge resection, breast cancer, depression, HCV, HTN, COPD, PAF, opiate dependence presented with johnston that started one day eralier . Also reporting associated orthopnea, chest tightness, palpitations, and fatigue. She had recent admission last month with new onset afib not on anticoagulation due to thrombocytopenia and anemia.? During admission required transfusion on 01/24.? On admission this time H/H wass 6.2/18.7% she has been treated with 2 units of packed cells. denies any recent bleeding episodes.? CXR shows bilateral pleural effusions, right > left, unchanged from last CXR on 02/04.? This patient is followed up by Dr. Den Morales . She has had frequent hospitalizations. She does have oxygen at home. Uses 2 L/minute She is also using DuoNeb updrafts 2 or 3 times a day. History of smoking cigars for 30 years, still smokes 1 or 2 cigars per day. She has history of smoking marijuana and also opioid use for pain control. Review of Systems Review of Systems: Patient is not able to converse much because of her shortness of breath. Yes all other systems are reviewed and are negative PMFSH Past Medical History Medical History Bilateral lung cancer Cancer of upper lobe of left lung (~2020) Cancer of upper lobe of right lung (~2019) COPD (chronic obstructive pulmonary disease) Depression GERD (gastroesophageal reflux disease) History of breast cancer (~2006) History of hepatitis C HTN (hypertension) Internal and external bleeding hemorrhoids New onset a-fib Obesity Pancytopenia Pulmonary nodules Smoker Tubular adenoma of colon Family History Family History Mother History of lung cancer Brother History of lung cancer Maternal Grandmother Breast cancer in female Maternal Aunt Breast cancer in female Daughter Thyroid cancer Surgical History Surgical History History of anterior colporrhaphy (~2016) History of back surgery (~2011) History of colonoscopy (~2014) History of hemorrhoidectomy (~2019) History of lobectomy of lung (~2019) History of lumpectomy of right breast (~2006) History of lung surgery (~2020) History of tubal ligation Social History Social History Household Members: Spouse Housing: Apartment Are you a primary youth career specialist to a significant other at home: No Do you presently have visiting nurse or other home services: No Unable to assess alcohol history related to: Unable to respond Alcohol intake: never Patient Tobacco Use Status: Never used Tobacco Tobacco use type: Cigar Years Smoked: 46 Smoked in Last 30 Days: Yes Second Hand Smoke Exposure: No Use of substances other than those prescribed or required for medical reasons: Yes Substance Use Type: Marijuana Substance Use Frequency: Occasionally Last Used Substance: Just Prior to Admission Currently Displaying Signs/Symptoms of Drug Intoxication Withdrawal: No Any prior treatment program specific to substance use: No Have you been hit, kicked, punched, or otherwise hurt by someone within the past year? If so, by whom?: No Do you feel safe in your current relationship?: No Is there a partner from a previous relationship who is making you feel unsafe now?: No Are you made to feel afraid or neglected: No Advance Directives: No Do you have thoughts of harming others: None Do you have a plan to hurt others: No Plan Recently lost weight without trying: Yes How much weight loss: 14-23 pounds Nutrition Risks: No Nutritional Risk Patient : No : No service: No Current occupational status: disabled Current occupational exposures/hazards: No Meds Allergies Allergy/AdvReac Type Severity Reaction Status Date / Time lisinopril [LISINOPRIL] Allergy Severe SWELLING- Verified 01/15/22 12:39 ANGIOEDEMA codeine [CODEINE] Allergy Intermediate VOMITING/HIVES, Verified 01/15/22 12:39 vomiting, hives Active Medications: Current Medications Acetaminophen (Acetaminophen 325 Mg Tablet) 650 mg PO Q6H PRN PRN Reason: Pain, Mild (Pain Scale 1-3) Albuterol Sulfate (Albuterol Sulfate (0.083%) 2.5 Mg/3 Ml Vial.Neb) 2.5 mg INHALE Q2H PRN PRN Reason: Shortness of Breath/Wheezing Albuterol/Ipratropium (Albuterol/Iprat 2.5/0.5mg 3 Ml Ampul.Neb) 3 ml INHALE Q6H PRN PRN Reason: Shortness Of Breath Or Wheezing Albuterol/Ipratropium (Albuterol/Iprat 2.5/0.5mg 3 Ml Ampul.Neb) 3 ml INHALE RQ4H WHILE AWAKE [facility] Last Admin: 02/18/22 15:23 Dose: 3 ml Atorvastatin Calcium (Atorvastatin Calcium 10 Mg Tablet) 10 mg PO DAILY [facility] Last Admin: 02/18/22 08:24 Dose: 10 mg Buprenorphine/Naloxone (Buprenorphine/Naloxone 4/1 Mg Film) 1 film SUBLINGUAL D AILY [facility] Last Admin: 02/18/22 09:49 Dose: 1 film Diltiazem HCl (Diltiazem Hcl Cd 180 Mg Cap.Er.24h) 180 mg PO DAILY [facility]; Protocol Last Admin: 02/18/22 09:49 Dose: 180 mg Docusate Sodium (Docusate Sodium 100 Mg Capsule) 100 mg PO DAILY PRN PRN Reason: Constipation Folic Acid (Folic Acid 1 Mg Tablet) 1 mg PO DAILY [facility] Last Admin: 02/18/22 08:24 Dose: 1 mg Lidocaine/Diphenhydr/Alum/Mg/Simeth (Mag&Al/Sim/Diphenhyd/Lidocaine 10 Ml Oral.Susp) 10 ml PO Q4H PRN PRN Reason: sore throat Methylprednisolone Sodium Succinate (Methylprednisolone Sod Succ 125 Mg/2 Ml Vial) 60 mg IVPUSH Q12H [facility] Last Admin: 02/18/22 09:49 Dose: 60 mg Nicotine (Nicotine 21 Mg Patch.Td24) 21 mg TRANSDERMA DAILY [facility] Last Admin: 02/18/22 08:26 Dose: Not Given Non-Formulary Medication (Milnacipran [Savella]) 50 mg PO BID [facility] Omeprazole (Omeprazole 20 Mg Capsule.Dr) 20 mg PO DAILY@0630 [facility] Last Admin: 02/18/22 05:58 Dose: 20 mg Ondansetron HCl (Ondansetron Odt 8 Mg Tab.Rapdis) 8 mg TRANSLINGU Q8H PRN PRN Reason: Nausea Paroxetine HCl (Paroxetine Hcl 30 Mg Tablet) 60 mg PO DAILY [facility] Last Admin: 02/18/22 09:49 Dose: 60 mg Pharmacy Consult (Consult Rx Perform Med Rec) 1 each MISCELLANE ONCE PRN PRN Reason: Consult order Sodium Chloride (0.9 % Sodium Chloride Flush 3 Ml Syringe) 3 ml IVFLUSH QSHIFT [facility] Last Admin: 02/18/22 15:58 Dose: 3 ml Vitamin D (Cholecalciferol (Vitamin D3) 25 Mcg Tablet) 50 mcg PO DAILY [facility] Last Admin: 02/18/22 08:24 Dose: 50 mcg Home Medications Medication Instructions Recorded Confirmed Last Taken Type buprenorphine 4 mg-naloxone 1 mg 1 strip sublingual DAILY 01/18/22 02/17/22 02/15/22 History sublingual film (Suboxone) diltiazem HCl 180 mg 180 mg PO DAILY 01/18/22 02/17/22 02/15/22 History capsule,extended release 24 hr, controlled (DILT-XR) folic acid 1 mg tablet 1 mg PO DAILY 01/18/22 02/17/22 02/15/22 History metoprolol tartrate 50 1 tab PO DAILY 01/18/22 02/17/22 02/15/22 History mg-hydrochlorothiazide 25 mg tablet milnacipran 50 mg tablet (Savella) 50 mg PO BID 01/18/22 02/17/22 02/15/22 History omeprazole 20 mg capsule,delayed 20 mg PO DAILY@0630 01/18/22 02/17/22 02/15/22 History release paroxetine HCl 20 mg tablet 60 mg PO DAILY 01/18/22 02/17/22 02/15/22 History umeclidinium 62.5 mcg-vilanterol 1 puff inhalation DAILY 01/18/22 02/17/22 02/15/22 History 25 mcg/actuation powdr for inhalation (Anoro Ellipta) cholecalciferol (vitamin D3) 50 50 mcg PO DAILY 02/17/22 02/17/22 02/15/22 History mcg (2,000 unit) tablet (Vitamin D3) dexamethasone 4 mg tablet 8 mg PO BID 02/17/22 02/17/22 Unknown History ipratropium 0.5 mg-albuterol 3 mg 3 ml inhalation Q6-8H PRN 02/17/22 02/17/22 02/15/22 History (2.5 mg base)/3 mL nebulization Shortness Of Breath Or Wheezing soln nicotine 21 mg/24 hr daily 1 patch topical DAILY 02/17/22 02/17/22 02/15/22 History transdermal patch ondansetron HCl 8 mg tablet 8 mg PO Q8H PRN Nausea 02/17/22 02/17/22 Unknown History simvastatin 20 mg tablet 20 mg PO DAILY 02/17/22 02/17/22 02/15/22 History Physical Exam Vital Signs: Vital Signs: Last Vital Signs Temp 98.6 F 02/18/22 15:38 Pulse 93 02/18/22 15:38 Resp 19 02/18/22 15:38 BP 148/95 H 02/18/22 15:38 Pulse Ox 92 02/18/22 15:38 O2 Del Method 02/18/22 15:38 O2 Flow Rate 2 02/18/22 15:38 Oxygen Flow Rate 2 02/17/22 07:43 BMI result Body Mass Index 28.1 Const: Other: Patient is moderately short of breath, Has difficulty in carrying out conversation. General: no acute distress, alert and awake Orientation/consciousness: patient oriented x3 HEENT: Head: Yes normal to inspection General nose exam: No nasal polyps present and No nasal discharge present Face and sinus: Yes sinuses nontender Mouth: oropharynx normal Throat: Yes posterior oropharynx normal Eyes: General: appearance normal, both eyes and all related structures Neck: Neck: Yes normal visual inspection, Yes no lymphadenopathy, Yes trachea midline and Yes no JVD Thyroid: Thyroid normal Chest: Chest palpation & inspection: normal inspection of the chest, normal palpation of entire chest wall and no tenderness Resp: Other: Percussion note is resonant, breath sounds are very distant. She has inspiratory wheezes over the upper parts of the chest. She has basilar crepitations on both side. Cardio: Palpation: normal PMI Rhythm: abnormal rhythm (Atrial fibrillation) Heart sounds: no gallops and no murmurs GI: Palpation (GI): Soft to palpation, nontender, No hepatosplenomegaly present and no masses Auscultation: normal bowel sounds Back/Spine/Pelvis: Other: Could not be examined Skin: Other: Multiple bruises because of subcutaneous bleeding Neuro: General: patient oriented x3, No gait normal (Non ambulatory) and no f ocal motor deficits Cranial nerves: Yes CN's II-XII intact bilaterally Extrem: General: Yes normal to inspection and Yes no calf tenderness Psych: Speech and movement: Normal speech and movement present Affect: Anxious affect present Results Laboratory Findings CBC and BMP: 02/18/22 04:24 02/18/22 04:24 ABG, PT/INR, D-dimer: PT/INR, D-dimer PT 12.5 SEC (10.0-13.1) 02/17/22 06:02 INR 1.1 (0.9-1.1) 02/17/22 06:02 Abnormal lab findings: Abnormal Labs 02/17/22 02/17/22 02/17/22 06:00 06:02 06:02 RBC 1.92 L D Hgb 6.2 L* Hct 18.7 L* RDW 22.6 H Plt Count 68 L D Immature Gran % (Auto) 2.9 H Neut % (Auto) Lymph % (Auto) 10.3 L [place] % (Auto) 19.8 H Lymph # (Auto) 0.6 L [place] # (Auto) Abs Immat Gran (auto) 0.17 H Absolute Nucleated RBC 0.020 H Nucleated RBC % (auto) 0.3 H Potassium Chloride 95 L Carbon Dioxide 30 H BUN 19 H Random Glucose 198 H Lactic Acid Calcium 8.2 L Total Bilirubin 1.1 H Troponin I High Sens B-Natriuretic Peptide Vitamin B12 RSV (PCR) Crossmatch See Detail 02/17/22 02/17/22 02/17/22 06:02 06:02 06:22 RBC Hgb Hct RDW Plt Count Immature Gran % (Auto) Neut % (Auto) Lymph % (Auto) [place] % (Auto) Lymph # (Auto) [place] # (Auto) Abs Immat Gran (auto) Absolute Nucleated RBC Nucleated RBC % (auto) Potassium Chloride Carbon Dioxide BUN Random Glucose Lactic Acid 2.4 H* Calcium Total Bilirubin Troponin I High Sens 84.9 H* B-Natriuretic Peptide 149 H Vitamin B12 1454 H RSV (PCR) Crossmatch 02/17/22 02/17/22 02/18/22 13:07 23:41 04:24 RBC 2.54 L D 2.57 L Hgb 8.2 L D 8.2 L Hct 23.9 L D 24.3 L RDW 19.7 H 19.9 H Plt Count 57 L 56 L Immature Gran % (Auto) 2.1 H 2.1 H Neut % (Auto) 73.5 H Lymph % (Auto) 5.1 L 4.6 L [place] % (Auto) 18.9 H 20.7 H Lymph # (Auto) 0.4 L 0.3 L [place] # (Auto) 1.5 H 1.4 H Abs Immat Gran (auto) 0.16 H 0.14 H Absolute Nucleated RBC 0.030 H 0.050 H Nucleated RBC % (auto) 0.4 H 0.7 H Potassium Chloride Carbon Dioxide BUN Random Glucose Lactic Acid Calcium Total Bilirubin Troponin I High Sens 62.3 H* B-Natriuretic Peptide Vitamin B12 RSV (PCR) Crossmatch 02/18/22 02/18/22 04:24 13:30 RBC Hgb Hct RDW Plt Count Immature Gran % (Auto) Neut % (Auto) Lymph % (Auto) [place] % (Auto) Lymph # (Auto) [place] # (Auto) Abs Immat Gran (auto) Absolute Nucleated RBC Nucleated RBC % (auto) Potassium 3.2 L Chloride 94 L Carbon Dioxide 31 H BUN 22 H Random Glucose 154 H Lactic Acid Calcium 7.8 L Total Bilirubin Troponin I High Sens B-Natriuretic Peptide Vitamin B12 RSV (PCR) Detected A Crossmatch Microbiology: Microbiology 02/17/22 06:22 Blood - Venous Blood Culture - Preliminary No growth after 24 hours. 02/17/22 06:22 Blood - Venous Blood Culture - Preliminary No growth after 24 hours. Diagnostic Findings Chest x-ray: report reviewed and image reviewed CT scan - chest: report reviewed and other Assessment and Plan (1) Severe anemia: Status: Acute (2) [place]STON (dyspnea on exertion): Status: Acute (3) COPD with acute exacerbation: Status: Acute (4) Pancytopenia: Status: Acute (5) Pleural effusion: Status: Acute (6) Bilateral lung cancer: Status: Chronic (7) Smoker: Status: Acute Plan This 61 years old female has complicated medical comorbidities. case of the bilateral lung cancer, with bone Mets. Also has chronic obstructive pulmonary disease, and she is candidate for very frequent acute exacerbations, due to continued smoking. Her current presentation is mainly because of severe anemia, hopefully symptoms will improve after she has received the transfusion. Also seems to have acute exacerbation of chronic obstructive pulmonary disease. She has marked generalized deconditioning. Recc . Treat with DuoNeb updrafts Q 4-6 hours while awake. Oxygen supplementation to keep O2 sat above 90%. Solu-Medrol 60 mg IV q.12 hours. Continue her regular meds for multiple medical problems, as listed. Prognosis is grave , patient needs to be educated about all this. Thank you for asthma to see this patient. Procedures Date of Service Date of Service: 02/18/22
[2022-02-19] VITALS (10 sets, daily range): BP systolic 132–161; BP diastolic 74–104; PULSE 75–93; RESP 14–20; TEMP 36.1–37.1; O2SAT 94–100; BMI 28.1
[2022-02-19] MEDS: Omeprazole 20 MG CAPSULE.DR PO (06:05)
[2022-02-19 06:56] LABS: Hematocrit 22.5 % (37.0-47.0); Hemoglobin 7.8 g/dl (12.0-16.0); Mean Corpuscular HGB Conc 34.7 g/dl (31.0-35.0); Mean Corpuscular Hemoglobin 32.8 pg (27.0-33.0); Mean Corpuscular Volume 94.5 fL (80.0-98.0); NRBC Pct Auto 0.5 /100WBC (0.0-0.2); Red Blood Count 2.38 X10*6/uL (4.20-5.50); Red Cell Distribution Width 20.8 % (11.0-16.0); White Blood Count 4.4 X10*3/uL (4.8-10.8)
[2022-02-19 07:01] LABS: Platelet Count 54 X10*3/uL (160-400)
[2022-02-19 07:19] LABS: Anion Gap 19 (12-20); Blood Urea Nitrogen 26 mg/dL (9-16); Calcium 8.2 mg/dL (8.4-10.2); Carbon Dioxide 28 mmol/L (22-29); Chloride 95 mmol/L (96-108); Estimated Glomerular Filt Rate 50; Glucose Random 178 mg/dL (60-115); Potassium 3.6 mmol/L (3.3-5.1); Sodium 138 mmol/L (135-145)
[2022-02-19 07:34] LABS: Band Neutrophils Percent 8 % (3-5); Lymphocytes Absolute Manual 0.1 X10*3/uL (1.2-4.9); Lymphocytes Percent Manual 2 % (20-40); Metamyelocytes Percent 1 %; Monocytes Absolute Manual 0.2 X10*3/uL (0.1-1.2); Monocytes Percent Manual 4 % (2-11); Neutrophils Absolute Manual 4.1 X10*3/uL (2.0-8.3); Neutrophils Percent Manual 85 % (45-73); Nucleated Red Blood Cells 1 /100WBC (0-0)
[2022-02-19] MEDS: Albuterol/Iprat 2.5/0.5MG 3 ML AMPUL.NEB INHALE ×4 (07:39→19:02)
[2022-02-19 07:40] LABS: Macrocytosis 1+ (5-14) /OIF; Platelet Estimate DECREASED (NORMAL); RBC Morphology NOTED
[2022-02-19 07:41] LABS: Platelet Morphology Comment NORMAL
[2022-02-19 07:42] LABS: Acanthocytes 2+ (3-5) /OIF; Basophilic Stippling 1+ (0-2) /OIF; Ovalocytes 1+ (5-14) /OIF; Polychromasia 2+ (3-5) /OIF; Tear Drop Cells 1+ (0-2) /OIF
[2022-02-19] MEDS: dilTIAZem HCL CD 180 MG CAP.ER.24H PO (09:12)
[2022-02-19] MEDS: Atorvastatin Calcium 10 MG TABLET PO (09:12)
[2022-02-19] MEDS: Folic Acid 1 MG TABLET PO (09:12)
[2022-02-19] MEDS: Buprenorphine/Naloxone 4/1 mg FILM 1 FILM SUBLINGUAL (09:12)
[2022-02-19] MEDS: PARoxetine HCL 30 MG TABLET 60 MG PO (09:12)
[2022-02-19] MEDS: methylPREDNISolone Sod Succ 125 MG/2 ML VIAL 60 MG IVPUSH (09:12)
[2022-02-19] MEDS: Cholecalciferol (Vitamin D3) 25 MCG TABLET 50 MCG PO (09:12)
[2022-02-19] MEDS: 0.9 % Sodium Chloride Flush 3 ML SYRINGE IVFLUSH ×2 (09:13→15:49)
--- NOTE | 2022-02-19 09:23 | P.PNPL_ITS ---
Subjective Subjective Date of Service: 02/19/22 Principal diagnosis: anemia, COPD excarbation Interval history: This patient continues to be short of breath on minimal effort, and even at rest. She remains afebrile, very minimal cough or expectoration. Denies any chest pain., still has her usual back pain. Objective Data Labs CBC & Chem 7: 02/19/22 06:19 02/19/22 06:19 Labs: Laboratory Results - last 24 hr 02/18/22 02/19/22 02/19/22 13:30 06:19 06:19 WBC 4.4 L RBC 2.38 L Hgb 7.8 L Hct 22.5 L MCV 94.5 MCH 32.8 MCHC 34.7 RDW 20.8 H Plt Count 54 L MPV 11.0 Immature Gran % (Auto) Cancelled Neut % (Auto) Cancelled Lymph % (Auto) Cancelled [place] % (Auto) Cancelled Eos % (Auto) Cancelled Baso % (Auto) Cancelled Lymph # (Auto) Cancelled [place] # (Auto) Cancelled Eos # (Auto) Cancelled Baso # (Auto) Cancelled Abs Immat Gran (auto) Cancelled Absolute Neuts (auto) Cancelled Absolute Nucleated RBC 0.020 H Nucleated RBC % (auto) 0.5 H Neutrophils % (Manual) 85 H Band Neutrophils % 8 H Lymphocytes % (Manual) 2 L Monocytes % (Manual) 4 Metamyelocytes % 1 Abs Neuts (Manual) 4.1 Lymphocytes # (Manual) 0.1 L Monocytes # (Manual) 0.2 Nucleated RBCs 1 H Platelet Estimate DECREASED Plt Morphology Comment NORMAL RBC Morphology NOTED Polychromasia 2+ (3-5) Basophilic Stippling 1+ (0-2) Macrocytosis 1+ (5-14) Tear Drop Cells 1+ (0-2) Ovalocytes 1+ (5-14) Acanthocytes (Spur) 2+ (3-5) Sodium 138 Potassium 3.6 Chloride 95 L Carbon Dioxide 28 Anion Gap 19 BUN 26 H Creatinine 1.10 Estim Creat Clear Calc 59.0 Estimated GFR 50 Random Glucose 178 H Calcium 8.2 L Respiratory Panel Dr[place] See Note Adenovirus (Rapid PCR) Not Detected B.pert (TEM-PCR) Not Detected B.parapertussis DNA PCR Not Detected C. pneumoniae DNA (PCR) Not Detected Coronavirus OC43 (PCR) Not Detected Coronavirus HKU1 (PCR) Not Detected Coronavirus 229E (PCR) Not Detected Coronavirus NL63 (PCR) Not Detected Human Metapneumovir PCR Not Detected Influenza A (RT-PCR) Not Detected Influenza B (RT-PCR) Not Detected M. pneumoniae (PCR) Not Detected Parainfluenza 1 (PCR) Not Detected Parainfluenza 2 (PCR) Not Detected Parainfluenza 3 (PCR) Not Detected Parainfluenza 4 (PCR) Not Detected RSV (PCR) Detected A Entero/Rhino (PCR) Not Detected SARS-CoV-2 RNA (RT-PCR) Not Detected hemoglobin 7.8 , is noted. Microbiology Microbiology Results: Microbiology 02/17/22 06:22 Blood - Venous Blood Culture - Preliminary No growth after 48 hours. 02/17/22 06:22 Blood - Venous Blood Culture - Preliminary No growth after 48 hours. Review of Systems Review of Systems Yes all other systems are reviewed and are negative (general weakness and SOB ) Cardiovascular: Reports dyspnea Respiratory: Reports chest congestion and Reports dyspnea Physical Exam Vital Signs: Vital Signs: Last Vital Signs Temp 97.6 F 02/19/22 07:24 Pulse 89 02/19/22 07:39 Resp 16 02/19/22 07:39 BP 154/88 H 02/19/22 07:24 Pulse Ox 98 02/19/22 07:24 O2 Del Method 02/19/22 07:24 O2 Flow Rate 3 02/19/22 07:24 Oxygen Flow Rate 2 02/17/22 07:43 BMI result Body Mass Index 28.1 Const: Other: Patient is moderately short of breath, Has difficulty in carrying out conversation. General: no acute distress, alert and awake Orientation/consciousness: patient oriented x3 HEENT: Head: Yes normal to inspection General nose exam: No nasal polyps present and No nasal discharge present Face and sinus: Yes sinuses nontender Mouth: oropharynx normal Throat: Yes posterior oropharynx normal Eyes: General: appearance normal, both eyes and all related structures Neck: Neck: Yes normal visual inspection, Yes no lymphadenopathy, Yes trachea midline and Yes no JVD Thyroid: Thyroid normal Chest: Chest palpation & inspection: normal inspection of the chest, normal palpation of entire chest wall and no tenderness Resp: Other: Percussion note is resonant, breath sounds are very distant. She has inspiratory wheezes over the upper parts of the chest. She has basilar crepitations on both side. Cardio: Palpation: normal PMI Rhythm: abnormal rhythm (Atrial fibrillation) Heart sounds: no gallops and no murmurs GI: Palpation (GI): Soft to palpation, nontender, No hepatosplenomegaly present and no masses Auscultation: normal bowel sounds Back/Spine/Pelvis: Other: Could not be examined Skin: Other: Multiple bruises because of subcutaneous bleeding Neuro: General: patient oriented x3, No gait normal (Non ambulatory) and no focal motor deficits Cranial nerves: Yes CN's II-XII intact bilaterally Extrem: General: Yes normal to inspection and Yes no calf tenderness Psych: Speech and movement: Normal speech and movement present Affect: Anxious affect present Procedures Date of Service Date of Service: 02/19/22 Assessment and Plan Assessment and plan (1) Severe anemia: Status: Acute (2) COPD with acute exacerbation: Status: Acute (3) Pleural effusion: Status: Acute (4) Cancer of upper lobe of right lung: Problem details: (stage 1 - s/p RUL lobectomy 07/2019) Status: Chronic (5) Cancer of upper lobe of left lung: Problem details: (Adenocarcinoma - s/p LITA wedge 01/2021) Status: Acute (6) Smoker: Problem details: (onset 13yo, 1ppd x 47yrs, 40+PYH) Status: Acute Plan This patient is main issue at this time is severe anemia, hemoglobin today 7.8, Patient needs follow-up and advice by Hematology COPD exacerbation is minimal, There is no evidence of active pneumonia. The pleural effusion reported is very small and not of any significance. CT scan has not shown any new pulmonary nodules are any skeletal metastatic disease. FOR COPD EXACERBATION I THINK WE CAN LOWER THE DOZE OFF IV SOLU-MEDROL TO 40 MG IV B.I.D. TODAY AND BY TOMORROW SHE CAN BE STARTED ON PREDNISONE 40 MG A DAY FOR 5 DAYS, THERE IS NO NEED OF ANY ANTIBIOTICS, DUONEB UPDRAFTS Q 6 HOURS WHILE AWAKE AND Q 4-6 HOURS P.R.N.. O2 BY NASAL CANNULA TO KEEP O2 SAT ABOVE 90%. I THINK WHEN PATIENT GOES HOME SHE WOULD NEED OXYGEN SUPPLEMENTATION AT HOME. PATIENT SHOULD BE CONSULT TO STOP SMOKING.. Time Spent With Patient Time: Total time spent is greater than 50% in coordination of care (as documented) at patient's floor/unit and/or counseling patient: Progress Note: Quality Stroke Does the patient have a stroke diagnosis?: No
[2022-02-19] MEDS: Acetaminophen 325 MG TABLET 650 MG PO ×2 (09:24→21:02)
--- NOTE | 2022-02-19 10:07 | HO.PM.IMPN ---
Subjective Subjective Date of Service: 02/19/22 Interval History: cC: weakness interval history:sob Respiratory Respiratory: Reports no additional respiratory complaints Gastrointestinal Gastrointestinal: Reports no additional gastrointestinal complaints Physical Exam Vital Signs: Vital Signs: Last Vital Signs Temp 97.6 F 02/19/22 07:24 Pulse 89 02/19/22 07:39 Resp 16 02/19/22 07:39 BP 154/88 H 02/19/22 07:24 Pulse Ox 98 02/19/22 07:24 O2 Del Method 02/19/22 07:24 O2 Flow Rate 3 02/19/22 07:24 Oxygen Flow Rate 2 02/17/22 07:43 BMI result Body Mass Index 28.1 General: AO X 3, no acute distress Resp: CTA bilateral, no accessory muscles used CVS: S1,S2,RRR GI: soft, non tender, non distended Neuro: motor grossly intact, alert Psych: appropriate affect, appropriate insight Objective Data Active Medications Acetaminophen (Acetaminophen 325 Mg Tablet) 650 mg PO Q6H PRN PRN Reason: Pain, Mild (Pain Scale 1-3) Last Admin: 02/19/22 09:24 Dose: 650 mg Documented By: ELIZA Albuterol Sulfate (Albuterol Sulfate (0.083%) 2.5 Mg/3 Ml Vial.Neb) 2.5 mg INHALE Q2H PRN PRN Reason: Shortness of Breath/Wheezing Albuterol/Ipratropium (Albuterol/Iprat 2.5/0.5mg 3 Ml Ampul.Neb) 3 ml INHALE Q6H PRN PRN Reason: Shortness Of Breath Or Wheezing Albuterol/Ipratropium (Albuterol/Iprat 2.5/0.5mg 3 Ml Ampul.Neb) 3 ml INHALE RQ4H WHILE AWAKE [facility] Last Admin: 02/19/22 07:39 Dose: 3 ml Documented By: LIANG Atorvastatin Calcium (Atorvastatin Calcium 10 Mg Tablet) 10 mg PO DAILY [facility] Last Admin: 02/19/22 09:12 Dose: 10 mg Documented By: ELIZA Buprenorphine/Naloxone (Buprenorphine/Naloxone 4/1 Mg Film) 1 film SUBLINGUAL DAILY [facility] Last Admin: 02/19/22 09:12 Dose: 1 film Documented By: ELIZA Diltiazem HCl (Diltiazem Hcl Cd 180 Mg Cap.Er.24h) 180 mg PO DAILY [facility]; Protocol Last Admin: 02/19/22 09:12 Dose: 180 mg Documented By: ELIZA Docusate Sodium (Docusate Sodium 100 Mg Capsule) 100 mg PO DAILY PRN PRN Reason: Constipation Folic Acid (Folic Acid 1 Mg Tablet) 1 mg PO DAILY [facility] Last Admin: 02/19/22 09:12 Dose: 1 mg Documented By: ELIZA Lidocaine/Diphenhydr/Alum/Mg/Simeth (Mag&Al/Sim/Diphenhyd/Lidocaine 10 Ml Oral.Susp) 10 ml PO Q4H PRN PRN Reason: sore throat Methylprednisolone Sodium Succinate (Methylprednisolone Sod Succ 125 Mg/2 Ml Vial) 60 mg IVPUSH Q12H [facility] Last Admin: 02/19/22 09:12 Dose: 60 mg Documented By: ELIZA Methylprednisolone Sodium Succinate (Methylprednisolone Sod Succ 40 Mg/Ml Vial) 40 mg IVPUSH Q12H [facility] Nicotine (Nicotine 21 Mg Patch.Td24) 21 mg TRANSDERMA DAILY [facility] Last Admin: 02/19/22 09:13 Dose: Not Given Documented By: ELIZA Non-Admin Reason: Patient Refused Non-Formulary Medication (Milnacipran [Savella]) 50 mg PO BID [facility] Omeprazole (Omeprazole 20 Mg Capsule.Dr) 20 mg PO DAILY@0630 [facility] Last Admin: 02/19/22 06:05 Dose: 20 mg Documented By: ALEKSANDRORRJarek Ondansetron HCl (Ondansetron Odt 8 Mg Tab.Rapdis) 8 mg TRANSLINGU Q8H PRN PRN Reason: Nausea Paroxetine HCl (Paroxetine Hcl 30 Mg Tablet) 60 mg PO DAILY [facility] Last Admin: 02/19/22 09:12 Dose: 60 mg Documented By: ELIZA Pharmacy Consult (Consult Rx Perform Med Rec) 1 each MISCELLANE ONCE PRN PRN Reason: Consult order Sodium Chloride (0.9 % Sodium Chloride Flush 3 Ml Syringe) 3 ml IVFLUSH QSHIFT [facility] Last Admin: 02/19/22 09:13 Dose: 3 ml Documented By: ELIZA Vitamin D (Cholecalciferol (Vitamin D3) 25 Mcg Tablet) 50 mcg PO DAILY [facility] Last Admin: 02/19/22 09:12 Dose: 50 mcg Documented By: ELIZA Labs CBC & Chem 7: 02/19/22 06:19 02/19/22 06:19 Labs: Laboratory Results - last 24 hr 02/18/22 02/19/22 02/19/22 13:30 06:19 06:19 MCV 94.5 MCH 32.8 MCHC 34.7 RDW 20.8 H Plt Count 54 L MPV 11.0 Immature Gran % (Auto) Cancelled Neut % (Auto) Cancelled Lymph % (Auto) Cancelled [place] % (Auto) Cancelled Eos % (Auto) Cancelled Baso % (Auto) Cancelled Lymph # (Auto) Cancelled [place] # (Auto) Cancelled Eos # (Auto) Cancelled Baso # (Auto) Cancelled Abs Immat Gran (auto) Cancelled Absolute Neuts (auto) Cancelled Absolute Nucleated RBC 0.020 H Nucleated RBC % (auto) 0.5 H Neutrophils % (Manual) 85 H Band Neutrophils % 8 H Lymphocytes % (Manual) 2 L Monocytes % (Manual) 4 Metamyelocytes % 1 Abs Neuts (Manual) 4.1 Lymphocytes # (Manual) 0.1 L Monocytes # (Manual) 0.2 Nucleated RBCs 1 H Platelet Estimate DECREASED Plt Morphology Comment NORMAL RBC Morphology NOTED Polychromasia 2+ (3-5) Basophilic Stippling 1+ (0-2) Macrocytosis 1+ (5-14) Tear Drop Cells 1+ (0-2) Ovalocytes 1+ (5-14) Acanthocytes (Spur) 2+ (3-5) Anion Gap 19 Estim Creat Clear Calc 59.0 Estimated GFR 50 Random Glucose 178 H Calcium 8.2 L Respiratory Panel [place] See Note Adenovirus (Rapid PCR) Not Detected B.pert (TEM-PCR) Not Detected B.parapertussis DNA PCR Not Detected C. pneumoniae DNA (PCR) Not Detected Coronavirus OC43 (PCR) Not Detected Coronavirus HKU1 (PCR) Not Detected Coronavirus 229E (PCR) Not Detected Coronavirus NL63 (PCR) Not Detected Human Metapneumovir PCR Not Detected Influenza A (RT-PCR) Not Detected Influenza B (RT-PCR) Not Detected M. pneumoniae (PCR) Not Detected Parainfluenza 1 (PCR) Not Detected Parainfluenza 2 (PCR) Not Detected Parainfluenza 3 (PCR) Not Detected Parainfluenza 4 (PCR) Not Detected RSV (PCR) Detected A Entero/Rhino (PCR) Not Detected SARS-CoV-2 RNA (RT-PCR) Not Detected Microbiology Microbiology Results: Microbiology 02/17/22 06:22 Blood Culture - Preliminary Blood - Venous No growth after 48 hours. 02/17/22 06:22 Blood Culture - Preliminary Blood - Venous No growth after 48 hours. Assessment and Plan (1) Severe anemia: Status: Acute (2) Bronchiolitis: Status: Acute Plan 61F with pmh NSCLC on chemotherapy s/p LITA and RUL wedge resection, breast cancer, depression, HCV, HTN, COPD, PAF, opiate dependence to be observed for symptomatic anemia with VIKTORIYA. chronic normocytic anemia secondary to non-small cell lung cancer on chemotherapy H/H improved s/p 2 units packed red blood cells 02/17/22 denies any bleeding episodes acute hypoxic respiratory failure- secondary to copd with acute decompensation due to RSV steroids, wean o2 duonebs demand ischemia secondary to symptomatic anemia -troponin elevated at 84.? Repeat 62.3. EKG showing NSR with nonspecific ST abnormalities. lactic acid initially elevated at 2.4, improved to 1.5.? Not severe sepsis non-small cell lung cancer on chemotherapy s/p bilateral upper lobe right wedge resection continue chemotherapy outpatient B/l pleural effusions. Repeat CXR oncology paroxysmal atrial fibrillation- rate controlled chads Vasc score 2.? Hold on anticoagulation due to thrombocytopenia and anemia continue diltiazem chronic diastolic heart failure-stable stable opiate dependence continue Suboxone HTN continue diltiazem and metoprolol dvt prophylaxis- mechanical due to thrombocytopenia full code reason for continued hospitalization: weaning o2 Quality Stroke Does the patient have a stroke diagnosis?: No VTE Prior VTE?: No VTE Risk Level:: Medical - moderate - high VTE Device Contraindication: N/A - Device Ordered VTE Drug Contraindication: Treatment Not Indicated
[2022-02-19] MEDS: methylPREDNISolone Sod Succ 40 MG/ML VIAL IVPUSH (20:55)
[2022-02-20] VITALS (13 sets, daily range): BP systolic 120–169; BP diastolic 68–103; PULSE 64–95; RESP 17–22; TEMP 36–37.1; O2SAT 91–100
[2022-02-20] MEDS: 0.9 % Sodium Chloride Flush 3 ML SYRINGE IVFLUSH ×3 (01:02→21:15)
[2022-02-20] MEDS: Omeprazole 20 MG CAPSULE.DR PO (05:36)
[2022-02-20 06:48] LABS: MANUAL DIFF FLAG NO
[2022-02-20 07:04] LABS: Basophils Percent Auto 0.1 % (0-2); Hematocrit 22.8 % (37.0-47.0); Hemoglobin 7.5 g/dl (12.0-16.0); Imm Gran Abs Auto 0.19 X10*3/uL (0.00-0.03); Imm Gran Pct Auto 2.3 % (0.0-0.4); Lymphocytes Absolute Auto 0.3 X10*3/uL (1.2-4.9); Lymphocytes Percent Auto 3.9 % (20-40); Mean Corpuscular HGB Conc 32.9 g/dl (31.0-35.0); Mean Corpuscular Hemoglobin 31.8 pg (27.0-33.0); Mean Corpuscular Volume 96.6 fL (80.0-98.0); Mean Platelet Volume 11.2 fL (9.4-12.3); Monocytes Absolute Auto 0.7 X10*3/uL (0.1-1.2); Monocytes Percent Auto 7.8 % (2-11); NRBC Pct Auto 0.2 /100WBC (0.0-0.2); Neutrophils Absolute Auto 7.2 x10*3/uL (2.0-8.3); Neutrophils Percent Auto 85.9 % (45-73); Red Blood Count 2.36 X10*6/uL (4.20-5.50); Red Cell Distribution Width 21.5 % (11.0-16.0); White Blood Count 8.4 X10*3/uL (4.8-10.8)
[2022-02-20 07:05] LABS: Platelet Count 57 X10*3/uL (160-400)
[2022-02-20] MEDS: Albuterol/Iprat 2.5/0.5MG 3 ML AMPUL.NEB INHALE ×4 (07:41→19:03)
[2022-02-20 07:44] LABS: Anion Gap 18 (12-20); Blood Urea Nitrogen 36 mg/dL (9-16); Calcium 8.8 mg/dL (8.4-10.2); Carbon Dioxide 29 mmol/L (22-29); Chloride 96 mmol/L (96-108); Creatinine Clr Calc Pharmacy 50.3; Estimated Glomerular Filt Rate 42; Glucose Fasting 145 mg/dL (60-99); Glucose Random 145 mg/dL (60-115); Potassium 3.7 mmol/L (3.3-5.1); Sodium 139 mmol/L (135-145)
[2022-02-20] MEDS: Cholecalciferol (Vitamin D3) 25 MCG TABLET 50 MCG PO (08:50)
[2022-02-20] MEDS: Atorvastatin Calcium 10 MG TABLET PO (08:50)
[2022-02-20] MEDS: PARoxetine HCL 30 MG TABLET 60 MG PO (08:50)
[2022-02-20] MEDS: dilTIAZem HCL CD 180 MG CAP.ER.24H PO (08:50)
[2022-02-20] MEDS: Folic Acid 1 MG TABLET PO (08:50)
[2022-02-20] MEDS: Buprenorphine/Naloxone 4/1 mg FILM 1 FILM SUBLINGUAL (08:51)
--- NOTE | 2022-02-20 10:07 | P.PNIM_ITS ---
Subjective Subjective Date of Service: 02/20/22 Interval History: cC: weakness interval history:sob Respiratory Respiratory: Reports no additional respiratory complaints Gastrointestinal Gastrointestinal: Reports no additional gastrointestinal complaints Physical Exam Vital Signs: Vital Signs: Last Vital Signs Temp 96.8 F 02/20/22 07:53 Pulse 87 02/20/22 07:53 Resp 20 02/20/22 07:53 BP 160/82 H 02/20/22 07:53 Pulse Ox 100 02/20/22 07:53 O2 Del Method 02/20/22 07:53 O2 Flow Rate 3 02/20/22 07:53 Oxygen Flow Rate 2 02/17/22 07:43 BMI result Body Mass Index 28.1 General: AO X 3, no acute distress Resp: CTA bilateral, no accessory muscles used CVS: S1,S2,RRR GI: soft, non tender, non distended Neuro: motor grossly intact, alert Psych: appropriate affect, appropriate insight Objective Data Active Medications Acetaminophen (Acetaminophen 325 Mg Tablet) 650 mg PO Q6H PRN PRN Reason: Pain, Mild (Pain Scale 1-3) Last Admin: 02/19/22 21:02 Dose: 650 mg Documented By: AMELIA Albuterol Sulfate (Albuterol Sulfate (0.083%) 2.5 Mg/3 Ml Vial.Neb) 2.5 mg INHALE Q2H PRN PRN Reason: Shortness of Breath/Wheezing Albuterol/Ipratropium (Albuterol/Iprat 2.5/0.5mg 3 Ml Ampul.Neb) 3 ml INHALE Q6H PRN PRN Reason: Shortness Of Breath Or Wheezing Albuterol/Ipratropium (Albuterol/Iprat 2.5/0.5mg 3 Ml Ampul.Neb) 3 ml INHALE RQ4H WHILE AWAKE [facility] Last Admin: 02/20/22 07:41 Dose: 3 ml Documented By: CINDY Atorvastatin Calcium (Atorvastatin Calcium 10 Mg Tablet) 10 mg PO DAILY [facility] Last Admin: 02/20/22 08:50 Dose: 10 mg Documented By: KURT Buprenorphine/Naloxone (Buprenorphine/Naloxone 4/1 Mg Film) 1 film SUBLINGUAL DAILY [facility] Last Admin: 02/20/22 08:51 Dose: 1 film Documented By: KURT Diltiazem HCl (Diltiazem Hcl Cd 180 Mg Cap.Er.24h) 180 mg PO DAILY [facility]; Protocol Last Admin: 02/20/22 08:50 Dose: 180 mg Documented By: KURT Docusate Sodium (Docusate Sodium 100 Mg Capsule) 100 mg PO DAILY PRN PRN Reason: Constipation Folic Acid (Folic Acid 1 Mg Tablet) 1 mg PO DAILY [facility] Last Admin: 02/20/22 08:50 Dose: 1 mg Documented By: KURT Lidocaine/Diphenhydr/Alum/Mg/Simeth (Mag&Al/Sim/Diphenhyd/Lidocaine 10 Ml Oral.Susp) 10 ml PO Q4H PRN PRN Reason: sore throat Methylprednisolone Sodium Succinate (Methylprednisolone Sod Succ 40 Mg/Ml Vial) 40 mg IVPUSH Q12H [facility] Last Admin: 02/20/22 08:50 Dose: 40 mg Documented By: KURT Nicotine (Nicotine 21 Mg Patch.Td24) 21 mg TRANSDERMA DAILY [facility] Last Admin: 02/20/22 08:54 Dose: Not Given Documented By: KURT Non-Admin Reason: Patient Refused Non-Formulary Medication (Milnacipran [Savella]) 50 mg PO BID [facility] Omeprazole (Omeprazole 20 Mg Capsule.Dr) 20 mg PO DAILY@0630 [facility] Last Admin: 02/20/22 05:36 Dose: 20 mg Documented By: MOMO Ondansetron HCl (Ondansetron Odt 8 Mg Tab.Rapdis) 8 mg TRANSLINGU Q8H PRN PRN Reason: Nausea Paroxetine HCl (Paroxetine Hcl 30 Mg Tablet) 60 mg PO DAILY [facility] Last Admin: 02/20/22 08:50 Dose: 60 mg Documented By: KURT Pharmacy Consult (Consult Rx Perform Med Rec) 1 each MISCELLANE ONCE PRN PRN Reason: Consult order Sodium Chloride (0.9 % Sodium Chloride Flush 3 Ml Syringe) 3 ml IVFLUSH QSHIFT [facility] Last Admin: 02/20/22 08:50 Dose: 3 ml Documented By: KURT Vitamin D (Cholecalciferol (Vitamin D3) 25 Mcg Tablet) 50 mcg PO DAILY [facility] Last Admin: 02/20/22 08:50 Dose: 50 mcg Documented By: KURT Labs CBC & Chem 7: 02/20/22 06:18 02/20/22 06:18 Labs: Laboratory Results - last 24 hr 02/19/22 02/20/22 02/20/22 06:19 06:18 06:18 MCV 96.6 MCH 31.8 MCHC 32.9 RDW 21.5 H Plt Count 57 L MPV 11.2 Immature Gran % (Auto) 2.3 H Neut % (Auto) 85.9 H Lymph % (Auto) 3.9 L [place] % (Auto) 7.8 Eos % (Auto) 0.0 Baso % (Auto) 0.1 Lymph # (Auto) 0.3 L [place] # (Auto) 0.7 Eos # (Auto) 0.0 Baso # (Auto) 0.0 Abs Immat Gran (auto) 0.19 H Absolute Neuts (auto) 7.2 Absolute Nucleated RBC 0.020 H Nucleated RBC % (auto) 0.2 Smear Path Review SEE NOTE Anion Gap 18 Estim Creat Clear Calc 50.3 Estimated GFR 42 Random Glucose 145 H Fasting Glucose 145 H Calcium 8.8 D 02/20/22 06:18 MCV Cancelled MCH Cancelled MCHC Cancelled RDW Cancelled Plt Count Cancelled MPV Cancelled Immature Gran % (Auto) Neut % (Auto) Lymph % (Auto) [place] % (Auto) Eos % (Auto) Baso % (Auto) Lymph # (Auto) [place] # (Auto) Eos # (Auto) Baso # (Auto) Abs Immat Gran (auto) Absolute Neuts (auto) Absolute Nucleated RBC Cancelled Nucleated RBC % (auto) Cancelled Smear Path Review Anion Gap Estim Creat Clear Calc Estimated GFR Random Glucose Fasting Glucose Calcium Microbiology Microbiology Results: Microbiology 02/17/22 06:22 Blood Culture - Preliminary Blood - Venous No growth after 48 hours. 02/17/22 06:22 Blood Culture - Preliminary Blood - Venous No growth after 48 hours. Assessment and Plan (1) Severe anemia: Status: Acute (2) Bronchiolitis: Status: Acute Plan 61F with pmh NSCLC on chemotherapy s/p LITA and RUL wedge resection, breast cancer, depression, HCV, HTN, COPD, PAF, opiate dependence to be observed for symptomatic anemia with VIKTORIYA. chronic normocytic anemia secondary to non-small cell lung cancer on chemotherapy H/H improved s/p 2 units packed red blood cells 02/17/22 denies any bleeding episodes acute hypoxic respiratory failure- secondary to copd with acute decompensation due to RSV steroids, wean o2 duonebs still sob demand ischemia secondary to symptomatic anemia -troponin elevated at 84.? Repeat 62.3. EKG showing NSR with nonspecific ST abnormalities. lactic acid initially elevated at 2.4, improved to 1.5.? Not severe sepsis non-small cell lung cancer on chemotherapy s/p bilateral upper lobe right wedge resection continue chemotherapy outpatient B/l pleural effusions. Repeat CXR oncology paroxysmal atrial fibrillation- rate controlled chads Vasc score 2.? Hold on anticoagulation due to thrombocytopenia and anemia continue diltiazem chronic diastolic heart failure-stable stable opiate dependence continue Suboxone HTN continue diltiazem and metoprolol dvt prophylaxis- mechanical due to thrombocytopenia full code reason for continued hospitalization: weaning o2, still sob Quality Stroke Does the patient have a stroke diagnosis?: No VTE Prior VTE?: No VTE Risk Level:: Medical - moderate - high VTE Device Contraindication: N/A - Device Ordered VTE Drug Contraindication: Treatment Not Indicated
--- NOTE | 2022-02-20 10:52 | PM.HEMONCPN ---
Medical Summary - Medical Summary Date of Service: 02/20/22 Chief complaint: Shortness of breath Medical Summary: diagnosis: Metastatic non-small cell cell lung cancer Interval History Interval history: She is doing better but reports shortness of breath with minimal exertion. No chest pain. She denies fever or chills. No nausea or emesis. No abdominal pain or diarrhea. Review of Systems - Constitutional Reports as per [facility] Medical History: Medical History (Last Reviewed 02/18/22 @ 16:50 by Clau Carpenter MD) Bilateral lung cancer Cancer of upper lobe of left lung Onset Date: ~2020 Cancer of upper lobe of right lung Onset Date: ~2019 COPD (chronic obstructive pulmonary disease) Depression GERD (gastroesophageal reflux disease) History of breast cancer Onset Date: ~2006 History of hepatitis C HTN (hypertension) Internal and external bleeding hemorrhoids New onset a-fib Obesity Pancytopenia Pulmonary nodules Smoker Tubular adenoma of colon Family History: Family History (Last Reviewed 02/18/22 @ 16:50 by Clau Carpenter MD) Mother History of lung cancer Brother History of lung cancer Maternal Grandmother Breast cancer in female Maternal Aunt Breast cancer in female Daughter Thyroid cancer Surgical History: Surgical History (Last Reviewed 02/18/22 @ 16:50 by Clau Carpenter MD) History of anterior colporrhaphy Onset Date: ~2016 History of back surgery Onset Date: ~2011 History of colonoscopy Onset Date: ~2014 History of hemorrhoidectomy Onset Date: ~2019 History of lobectomy of lung Onset Date: ~2019 History of lumpectomy of right breast Onset Date: ~2006 History of lung surgery Onset Date: ~2020 History of tubal ligation Social History: Social History (Last Reviewed 02/18/22 @ 16:50 by Clau Carpenter MD) Living Situation History: Household Members: Spouse Housing: Apartment Are you a primary direct care staffer to a significant other at home: No Do you presently have visiting nurse or other home services: No Alcohol History: Unable to assess alcohol history related to: Unable to respond Alcohol History Details: Currently Displaying Signs/Symptoms of Alcohol Withdrawal: No Tobacco History: Patient Tobacco Use Status: Never used Tobacco Tobacco use type: Cigar Years Smoked: 46 Smoked in Last 30 Days: Yes Second Hand Smoke Exposure: No Substance Use History: Use of substances other than those prescribed or required for medical reasons: Yes Substance Use Type: Marijuana Substance Use Frequency: Occasionally Last Used Substance: Just Prior to Admission Currently Displaying Signs/Symptoms of Drug Intoxication Withdrawal: No Any prior treatment program specific to substance use: No Domestic Abuse History: Have you been hit, kicked, punched, or otherwise hurt by someone within the past year? If so, by whom?: No Do you feel safe in your current relationship?: No Is there a partner from a previous relationship who is making you feel unsafe now?: No Are you made to feel afraid or neglected: No Advance Directives: Advance Directives: No Advance Directives Information Provided: Advance Directives Information Provided comment: declined Homicidal Assessment: Do you have thoughts of harming others: None Do you have a plan to hurt others: No Plan Nutrition Assessment: Recently lost weight without trying: Yes How much weight loss: 14-23 pounds Nutrition Risks: No Nutritional Risk Patient : No : No Occupation Assessmet: service: No Current occupational status: disabled Current occupational exposures/hazards: No Home Medications and Allergies Current Medications: Current Medications Acetaminophen (Acetaminophen 325 Mg Tablet) 650 mg PO Q6H PRN PRN Reason: Pain, Mild (Pain Scale 1-3) Last Admin: 02/19/22 21:02 Dose: 650 mg Albuterol Sulfate (Albuterol Sulfate (0.083%) 2.5 Mg/3 Ml Vial.Neb) 2.5 mg INHALE Q2H PRN PRN Reason: Shortness of Breath/Wheezing Albuterol/Ipratropium (Albuterol/Iprat 2.5/0.5mg 3 Ml Ampul.Neb) 3 ml INHALE Q6H PRN PRN Reason: Shortness Of Breath Or Wheezing Albuterol/Ipratropium (Albuterol/Iprat 2.5/0.5mg 3 Ml Ampul.Neb) 3 ml INHALE RQ4H WHILE AWAKE FOR[facility]LY [facility], [facility] Last Admin: 02/20/22 07:41 Dose: 3 ml Atorvastatin Calcium (Atorvastatin Calcium 10 Mg Tablet) 10 mg PO DAILY [facility], [facility] Last Admin: 02/20/22 08:50 Dose: 10 mg Buprenorphine/Naloxone (Buprenorphine/Naloxone 4/1 Mg Film) 1 film SUBLINGUAL DAILY [facility], [facility]1983 Last Admin: 02/20/22 08:51 Dose: 1 film Diltiazem HCl (Diltiazem Hcl Cd 180 Mg Cap.Er.24h) 180 mg PO DAILY [facility], [facility]; Protocol Last Admin: 02/20/22 08:50 Dose: 180 mg Docusate Sodium (Docusate Sodium 100 Mg Capsule) 100 mg PO DAILY PRN PRN Reason: Constipation Folic Acid (Folic Acid 1 Mg Tablet) 1 mg PO DAILY [facility], [facility] Last Admin: 02/20/22 08:50 Dose: 1 mg Lidocaine/Diphenhydr/Alum/Mg/Simeth (Mag&Al/Sim/Diphenhyd/Lidocaine 10 Ml Oral.Susp) 10 ml PO Q4H PRN PRN Reason: sore throat Methylprednisolone Sodium Succinate (Methylprednisolone Sod Succ 40 Mg/Ml Vial) 40 mg IVPUSH Q12H [facility], [facility] Last Admin: 02/20/22 08:50 Dose: 40 mg Nicotine (Nicotine 21 Mg Patch.Td24) 21 mg TRANSDERMA DAILY [facility], [facility] Last Admin: 02/20/22 08:54 Dose: Not Given Non-Formulary Medication (Milnacipran [Savella]) 50 mg PO BID [facility], [facility] Omeprazole (Omeprazole 20 Mg Capsule.Dr) 20 mg PO DAILY@0630 [facility], [facility] Last Admin: 02/20/22 05:36 Dose: 20 mg Ondansetron HCl (Ondansetron Odt 8 Mg Tab.Rapdis) 8 mg TRANSLINGU Q8H PRN PRN Reason: Nausea Paroxetine HCl (Paroxetine Hcl 30 Mg Tablet) 60 mg PO DAILY [facility], [facility] Last Admin: 02/20/22 08:50 Dose: 60 mg Pharmacy Consult (Consult Rx Perform Med Rec) 1 each MISCELLANE ONCE PRN PRN Reason: Consult order Sodium Chloride (0.9 % Sodium Chloride Flush 3 Ml Syringe) 3 ml IVFLUSH QSHIFT [facility], [facility] Last Admin: 02/20/22 08:50 Dose: 3 ml Vitamin D (Cholecalciferol (Vitamin D3) 25 Mcg Tablet) 50 mcg PO DAILY [facility], [facility] Last Admin: 02/20/22 08:50 Dose: 50 mcg Home Medications Medication Instructions Recorded Confirmed Type buprenorphine 4 mg-naloxone 1 mg 1 strip sublingual DAILY 01/18/22 02/17/22 History sublingual film (Suboxone) diltiazem HCl 180 mg 180 mg PO DAILY 01/18/22 02/17/22 History capsule,extended release 24 hr, controlled (DILT-XR) folic acid 1 mg tablet 1 mg PO DAILY 01/18/22 02/17/22 History metoprolol tartrate 50 1 tab PO DAILY 01/18/22 02/17/22 History mg-hydrochlorothiazide 25 mg tablet milnacipran 50 mg tablet (Savella) 50 mg PO BID 01/18/22 02/17/22 History omeprazole 20 mg capsule,delayed 20 mg PO DAILY@0630 01/18/22 02/17/22 History release paroxetine HCl 20 mg tablet 60 mg PO DAILY 01/18/22 02/17/22 History umeclidinium 62.5 mcg-vilanterol 1 puff inhalation DAILY 01/18/22 02/17/22 History 25 mcg/actuation powdr for inhalation (Anoro Ellipta) cholecalciferol (vitamin D3) 50 50 mcg PO DAILY 02/17/22 02/17/22 History mcg (2,000 unit) tablet (Vitamin D3) dexamethasone 4 mg tablet 8 mg PO BID 02/17/22 02/17/22 History ipratropium 0.5 mg-albuterol 3 mg 3 ml inhalation Q6-8H PRN 02/17/22 02/17/22 History (2.5 mg base)/3 mL nebulization Shortness Of Breath Or Wheezing soln nicotine 21 mg/24 hr daily 1 patch topical DAILY 02/17/22 02/17/22 History transdermal patch ondansetron HCl 8 mg tablet 8 mg PO Q8H PRN Nausea 02/17/22 02/17/22 History simvastatin 20 mg tablet 20 mg PO DAILY 02/17/22 02/17/22 History Allergies Allergy/AdvReac Type Severity Reaction Status Date / Time lisinopril [LISINOPRIL] Allergy Severe SWELLING- Verified 01/15/22 12:39 ANGIOEDEMA codeine [CODEINE] Allergy Intermediate VOMITING/HIVES, Verified 01/15/22 12:39 vomiting, hives Exam Vital signs: Vital Signs Temp 96.8 F 02/20/22 07:53 Pulse 87 02/20/22 07:53 Resp 20 02/20/22 07:53 BP 160/82 H 02/20/22 07:53 Pulse Ox 100 02/20/22 07:53 O2 Del Method 02/20/22 07:53 O2 Flow Rate 3 02/20/22 07:53 Intake & Output 02/19/22 02/20/2202/20/22 18:59 06:59 18:59 Intake Total 1400 / 1400 Output Total 300 / 300 Balance 1100 / 1100 Urine Output (Average ml/kg/hr) 0.31 0.31 Intake: Intake, Oral Amount 1400 / 1400 Output: Output, Urine Amount 300 / 300 Other: Number of Unmeasured Voids 1 3 1 Number of Bowel Movements 1 Urine Bathroom Bedpan Bedpan Urine Color [place] Yellow Last Bowel Movement 02/19/22 Stool Bathroom Weight 81.64 kg Weight 81.64 kg BMI result Body Mass Index 28.1 - Constitutional Present: mild distress, chronically ill appearing - Routine HEENT Exam Head: Present: normocephalic - Routine Respiratory Exam Present: decreased breath sounds, wheezes - Routine Cardiovascular Exam Cardiovascular: Present: S1, S2, tachycardia - Routine Abdominal Exam Absent: tenderness - Routine Extremities Exam Absent: tenderness - Routine Skin Exam Present: intact - Routine Neurological Exam Present: alert, oriented X3 Data - Labs CBC & Chem 7: 02/20/22 06:18 02/20/22 06:18 Labs: 02/17/22 ECG [address] angio chest PE protocol Stat XR chest 1V Stat 02/17/22 05:50 EKG Documentation DIRECTED 02/17/22 06:00 PRBC [Red Blood Cells] Stat Type and Screen Stat 02/17/22 06:02 B Type Natriuretic Peptide Stat Complete Blood Count Auto Diff Stat Comprehensive Met. Panel Stat IRON PROFILE Stat Prothrombin Time INR Stat Troponin-I High Sensitivity Stat Vitamin B12 and Folate Stat 02/17/22 06:04 COVID-19 ID NOW (Katz) Stat 02/17/22 06:22 Lactic Acid Stat 02/17/22 06:44 cefTRIAXone sodium [Rocephin] 1 gm 0.9 % Sodium Chloride [Ns] 50 ml IV ONCE 02/17/22 06:56 cefTRIAXone sodium [Rocephin] 1 gm .ROUTE .STK-MED ONE 02/17/22 10:57 ~Lactic Acid-LAB USE ONLY Stat 02/17/22 11:08 CXR [XR chest 1V] Stat 02/17/22 12:23 Furosemide [Lasix] 20 mg IVPUSH ONCE ONE 02/17/22 12:59 iohexoL 350 MG/ML [Omnipaque 350 MG/ML] 100 ml IV ONCE ONE 02/17/22 13:07 Troponin-I High Sensitivity Stat 02/17/22 18:07 Add Laboratory Test Urgent 02/17/22 23:41 CBC W/AUTO DIFF [Complete Blood Count Auto Diff] Urgent 02/18/22 CXR [XR chest 1V] Routine 02/18/22 04:24 Basic Metabolic Panel DAILY@0600 Complete Blood Count Auto Diff DAILY@0600 SLIDE REVIEW Routine 02/18/22 07:53 Potassium Chloride Packet [Klor-Con Packet] 40 meq PO ONCE ONE 02/18/22 09:00 methylPREDNISolone Sod Succ [SOLU-MedroL] 60 mg IVPUSH Q12H 02/18/22 13:30 Resp Pathogen Panel - [facility] Routine 02/18/22 15:26 Droplet Precautions Daily@0900,2200 02/19/22 06:19 BMP [Basic Metabolic Panel] DAILY@0600 Complete Blood Count Man Dif Routine 02/20/22 06:18 BMP [Basic Metabolic Panel Fasting] Routine BMP [Basic Metabolic Panel] DAILY@0600 CBC W/AUTO DIFF [Complete Blood Count Auto Diff] DAILY@0600 Laboratory Last Values WBC 8.4 X10*3/uL (4.8-10.8) 02/20/22 06:18 WBC Cancelled 02/20/22 06:18 RBC 2.36 X10*6/uL (4.20-5.50) L 02/20/22 06:18 RBC Cancelled 02/20/22 06:18 Hgb 7.5 g/dl (12.0-16.0) L 02/20/22 06:18 Hgb Cancelled 02/20/22 06:18 Hct 22.8 % (37.0-47.0) L 02/20/22 06:18 Hct Cancelled 02/20/22 06:18 MCV 96.6 fL (80.0-98.0) 02/20/22 06:18 MCV Cancelled 02/20/22 06:18 MCH 31.8 pg (27.0-33.0) 02/20/22 06:18 MCH Cancelled 02/20/22 06:18 MCHC 32.9 g/dl (31.0-35.0) 02/20/22 06:18 MCHC Cancelled 02/20/22 06:18 RDW 21.5 % (11.0-16.0) H 02/20/22 06:18 RDW Cancelled 02/20/22 06:18 Plt Count 57 X10*3/uL (160-400) L 02/20/22 06:18 Plt Count Cancelled 02/20/22 06:18 MPV 11.2 fL (9.4-12.3) 02/20/22 06:18 MPV Cancelled 02/20/22 06:18 Immature Gran % (Auto) 2.3 % (0.0-0.4) H 02/20/22 06:18 Neut % (Auto) 85.9 % (45-73) H 02/20/22 06:18 Lymph % (Auto) 3.9 % (20-40) L 02/20/22 06:18 [place] % (Auto) 7.8 % (2-11) 02/20/22 06:18 Eos % (Auto) 0.0 % (0-4) 02/20/22 06:18 Baso % (Auto) 0.1 % (0-2) 02/20/22 06:18 Lymph # (Auto) 0.3 X10*3/uL (1.2-4.9) L 02/20/22 06:18 [place] # (Auto) 0.7 X10*3/uL (0.1-1.2) 02/20/22 06:18 Eos # (Auto) 0.0 X10*3/uL (0.0-0.4) 02/20/22 06:18 Baso # (Auto) 0.0 X10*3/uL (0.0-0.2) 02/20/22 06:18 Abs Immat Gran (auto) 0.19 X10*3/uL (0.00-0.03) H 02/20/22 06:18 Absolute Neuts (auto) 7.2 x10*3/uL (2.0-8.3) 02/20/22 06:18 Absolute Nucleated RBC 0.020 X10*3/uL (0.0-0.012) H 02/20/22 06:18 Absolute Nucleated RBC Cancelled 02/20/22 06:18 Nucleated RBC % (auto) 0.2 /100WBC (0.0-0.2) 02/20/22 06:18 Nucleated RBC % (auto) Cancelled 02/20/22 06:18 Neutrophils % (Manual) 85 % (45-73) H 02/19/22 06:19 Band Neutrophils % 8 % (3-5) H 02/19/22 06:19 Lymphocytes % (Manual) 2 % (20-40) L 02/19/22 06:19 Monocytes % (Manual) 4 % (2-11) 02/19/22 06:19 Metamyelocytes % 1 % 02/19/22 06:19 Abs Neuts (Manual) 4.1 X10*3/uL (2.0-8.3) 02/19/22 06:19 Lymphocytes # (Manual) 0.1 X10*3/uL (1.2-4.9) L 02/19/22 06:19 Monocytes # (Manual) 0.2 X10*3/uL (0.1-1.2) 02/19/22 06:19 Nucleated RBCs 1 /100WBC (0-0) H 02/19/22 06:19 Platelet Estimate DECREASED (NORMAL) 02/19/22 06:19 Plt Morphology Comment NORMAL 02/19/22 06:19 RBC Morphology NOTED 02/19/22 06:19 Polychromasia 2+ (3-5) /OIF 02/19/22 06:19 Basophilic Stippling 1+ (0-2) /OIF 02/19/22 06:19 Macrocytosis 1+ (5-14) /OIF 02/19/22 06:19 Tear Drop Cells 1+ (0-2) /OIF 02/19/22 06:19 Ovalocytes 1+ (5-14) /OIF 02/19/22 06:19 Acanthocytes (Spur) 2+ (3-5) /OIF 02/19/22 06:19 Smear Tech's Comments VERIFIED 02/18/22 04:24 Smear Path Review SEE NOTE 02/19/22 06:19 PT 12.5 SEC (10.0-13.1) 02/17/22 06:02 INR 1.1 (0.9-1.1) 02/17/22 06:02 Sodium 139 mmol/L (135-145) 02/20/22 06:18 Potassium 3.7 mmol/L (3.3-5.1) 02/20/22 06:18 Chloride 96 mmol/L (96-108) 02/20/22 06:18 Carbon Dioxide 29 mmol/L (22-29) 02/20/22 06:18 Anion Gap 18 (12-20) 02/20/22 06:18 BUN 36 mg/dL (9-16) H 02/20/22 06:18 Creatinine 1.29 mg/dL (0.5-1.4) 02/20/22 06:18 Estim Creat Clear Calc 50.3 02/20/22 06:18 Estimated GFR 42 02/20/22 06:18 Random Glucose 145 mg/dL (60-115) H 02/20/22 06:18 Fasting Glucose 145 mg/dL (60-99) H 02/20/22 06:18 Lactic Acid 2.4 mmol/L (0.5-2.0) H* 02/17/22 06:22 Lactic Acid F/U @ 2Hr 1.5 mmol/L (0.5-2.0) 02/17/22 10:57 Calcium 8.8 mg/dL (8.4-10.2) D 02/20/22 06:18 Iron 81 mcg/dL (30-160) 02/17/22 06:02 TIBC 398 mcg/dL (228-428) 02/17/22 06:02 % Saturation 20 % (15-50) 02/17/22 06:02 Unsat Iron Binding 317 ug/dL 02/17/22 06:02 Total Bilirubin 1.1 mg/dL (0.0-1.0) H 02/17/22 06:02 AST 20 U/L (5-31) 02/17/22 06:02 ALT 19 U/L (0-31) 02/17/22 06:02 Alkaline Phosphatase 84 U/L (39-117) D 02/17/22 06:02 Troponin I High Sens 62.3 ng/L (<3.5-17.0) H* 02/17/22 13:07 B-Natriuretic Peptide 149 pg/mL (<100) H 02/17/22 06:02 Total Protein 7.1 g/dL (6.5-8.0) 02/17/22 06:02 Albumin 3.8 g/dL (3.5-5.0) D 02/17/22 06:02 Vitamin B12 1454 pg/mL (200-900) H 02/17/22 06:02 Folate 14.9 ng/mL (> or = 4.0) 02/17/22 06:02 Respiratory Panel [place] See Note 02/18/22 13:30 Adenovirus (Rapid PCR) Not Detected (Not Detect.) 02/18/22 13:30 B.pert (TEM-PCR) Not Detected (Not Detect.) 02/18/22 13:30 B.parapertussis DNA PCR Not Detected (Not Detect.) 02/18/22 13:30 C. pneumoniae DNA (PCR) Not Detected (Not Detect.) 02/18/22 13:30 Coronavirus OC43 (PCR) Not Detected (Not Detect.) 02/18/22 13:30 Coronavirus HKU1 (PCR) Not Detected (Not Detect.) 02/18/22 13:30 Coronavirus 229E (PCR) Not Detected (Not Detect.) 02/18/22 13:30 COVID-19 (OLAYINKA) Negative (Negative) 02/17/22 06:04 COVID-19 Clin Com See Note 02/17/22 06:04 Coronavirus NL63 (PCR) Not Detected (Not Detect.) 02/18/22 13:30 Human Metapneumovir PCR Not Detected (Not Detect.) 02/18/22 13:30 Influenza A (RT-PCR) Not Detected (Not Detect.) 02/18/22 13:30 Influenza B (RT-PCR) Not Detected (Not Detect.) 02/18/22 13:30 M. pneumoniae (PCR) Not Detected (Not Detect.) 02/18/22 13:30 Parainfluenza 1 (PCR) Not Detected (Not Detect.) 02/18/22 13:30 Parainfluenza 2 (PCR) Not Detected (Not Detect.) 02/18/22 13:30 Parainfluenza 3 (PCR) Not Detected (Not Detect.) 02/18/22 13:30 Parainfluenza 4 (PCR) Not Detected (Not Detect.) 02/18/22 13:30 RSV (PCR) Detected (Not Detect.) A 02/18/22 13:30 Entero/Rhino (PCR) Not Detected (Not Detect.) 02/18/22 13:30 SARS-CoV-2 RNA (RT-PCR) Not Detected (Not Detect.) 02/18/22 13:30 Blood Type A Positive 02/17/22 06:00 Antibody Screen NEGATIVE 02/17/22 06:00 Crossmatch See Detail 02/20/22 10:28 - Imaging Radiologist's impression: ITS Impressions Chest X-Ray 02/17/22 06:18 IMPRESSION: Examination is not significantly changed when compared to 02/04/2022. Chest X-Ray 02/17/22 11:27 IMPRESSION: Small right pleural effusion similar to the most recent study, but improved from the 02/04/2022 study. Chest CTA 02/17/22 13:31 IMPRESSION: * No evidence of pulmonary embolism. * Centrilobular and paraseptal emphysema. * Bronchial bennett are thickened and there are endobronchial secretions from likely bronchitis, although secretions can also be observed within airways after aspiration. * New tree-in-bud nodules in the left lower lobe and new small patchy opacities in the periphery of the left upper lobe are likely from infectious bronchiolitis. * Trace bilateral pleural effusions are present. * No new skeletal metastases compared to 01/24/2022. Chest X-Ray 02/18/22 09:31 IMPRESSION: * No new cardiopulmonary abnormality compared to prior chest radiograph from 02/17/2022. * Small right pleural effusion is present. No pulmonary edema. Assessment and Plan Patient Active problem list reviewed?: Yes (1) Cancer of upper lobe of right lung Problem details: (stage 1 - s/p RUL lobectomy 07/2019) Status: Chronic Assessment and plan: 1. This is a pleasant 61-year-old woman with bilateral lung adenocarcinoma. She has been diagnosed with recurrent metastatic lung cancer in the right with bone and brain metastasis in september 2021. Patient received 4 cycles of chemotherapy with pembrolizumab, carboplatin and pemetrexed on 11/13/2021. She has had multiple recent admissions for cytopenias and infection. She required blood and platelet transfusions. She has developed worsening shortness of breath, CT angiogram is negative for PE but shows changes of infectious bronchiolitis. She tested positive for RSV. She is receiving Solu-Medrol and DuoNebs. She is on supplemental oxygen. She has received 2 units blood transfusion. As for her lung cancer, current imaging shows a right lower lobe density to have decreased in size, currently measures 0.8 cm. Previously it was 1.4 cm. She has asymptomatic brain metastasis as well as bone metastasis. She is due for brain MRI with contrast. This can be performed as an outpatient unless she develops symptoms. She has been seen by remedial project manager, she has been recommended home O2. 2. Pancytopenia/anemia related to recent chemotherapy. This is not exacerbated by infection. Transfuse 1 unit PRBC today. - Time Spent With Patient Time Spent with Patient (in minutes): 10
--- NOTE | 2022-02-20 13:02 | MHC.CM.PN ---
Per MD rounds No dc today. Patient will receive a blood transfusion today. She may be ready to dc tomorrow. DP home selfcare, family will provide transport.
[2022-02-20] MEDS: Acetaminophen 325 MG TABLET 650 MG PO ×2 (21:15→22:09)
[2022-02-20] MEDS: methylPREDNISolone Sod Succ 40 MG/ML VIAL IVPUSH ×2 (21:15)
[2022-02-21] VITALS (9 sets, daily range): BP systolic 142–179; BP diastolic 88–96; PULSE 71–90; RESP 18–21; TEMP 35.9–36.8; O2SAT 89–97
--- NOTE | 2022-02-21 04:27 | PC.NURSE ---
2100 Med pass originally documented under day shift nurse;this RN reported to dive supervisor Med pass documentation updated manually.
[2022-02-21] MEDS: Omeprazole 20 MG CAPSULE.DR PO (05:57)
[2022-02-21 06:45] LABS: MANUAL DIFF FLAG NO
[2022-02-21 06:51] LABS: Basophils Percent Auto 0.2 % (0-2); Hematocrit 26.8 % (37.0-47.0); Hemoglobin 8.9 g/dl (12.0-16.0); Imm Gran Abs Auto 0.22 X10*3/uL (0.00-0.03); Imm Gran Pct Auto 2.2 % (0.0-0.4); Lymphocytes Absolute Auto 0.4 X10*3/uL (1.2-4.9); Lymphocytes Percent Auto 3.5 % (20-40); Mean Corpuscular HGB Conc 33.2 g/dl (31.0-35.0); Mean Corpuscular Volume 93.4 fL (80.0-98.0); Mean Platelet Volume 10.5 fL (9.4-12.3); Monocytes Absolute Auto 0.6 X10*3/uL (0.1-1.2); Monocytes Percent Auto 6.2 % (2-11); NRBC Pct Auto 0.3 /100WBC (0.0-0.2); Neutrophils Percent Auto 87.9 % (45-73); Platelet Count 64 X10*3/uL (160-400); Red Blood Count 2.87 X10*6/uL (4.20-5.50); Red Cell Distribution Width 22.8 % (11.0-16.0); White Blood Count 10.2 X10*3/uL (4.8-10.8)
[2022-02-21 07:20] LABS: Anion Gap 18 (12-20); Blood Urea Nitrogen 39 mg/dL (9-16); Calcium 9.5 mg/dL (8.4-10.2); Carbon Dioxide 30 mmol/L (22-29); Chloride 93 mmol/L (96-108); Creatinine Clr Calc Pharmacy 53.6; Estimated Glomerular Filt Rate 45; Glucose Random 165 mg/dL (60-115); Potassium 3.9 mmol/L (3.3-5.1); Sodium 137 mmol/L (135-145)
[2022-02-21] MEDS: Albuterol/Iprat 2.5/0.5MG 3 ML AMPUL.NEB INHALE ×4 (07:45→18:50)
[2022-02-21] MEDS: PARoxetine HCL 30 MG TABLET 60 MG PO (10:06)
[2022-02-21] MEDS: methylPREDNISolone Sod Succ 40 MG/ML VIAL IVPUSH ×2 (10:06→22:00)
[2022-02-21] MEDS: dilTIAZem HCL CD 180 MG CAP.ER.24H PO (10:06)
[2022-02-21] MEDS: Atorvastatin Calcium 10 MG TABLET PO (10:06)
[2022-02-21] MEDS: Folic Acid 1 MG TABLET PO (10:06)
[2022-02-21] MEDS: Cholecalciferol (Vitamin D3) 25 MCG TABLET 50 MCG PO (10:06)
[2022-02-21] MEDS: Buprenorphine/Naloxone 4/1 mg FILM 1 FILM SUBLINGUAL (10:07)
[2022-02-21] MEDS: 0.9 % Sodium Chloride Flush 3 ML SYRINGE IVFLUSH (10:07)
--- NOTE | 2022-02-21 11:48 | HO.PM.IMPN ---
Subjective Subjective Date of Service: 02/21/22 Interval History: cC: weakness interval history:sob Respiratory Respiratory: Reports no additional respiratory complaints Gastrointestinal Gastrointestinal: Reports no additional gastrointestinal complaints Physical Exam Vital Signs: Vital Signs: Last Vital Signs Temp 98.2 F 02/21/22 11:40 Pulse 90 02/21/22 11:40 Resp 20 02/21/22 11:40 BP 142/88 H 02/21/22 11:40 Pulse Ox 93 02/21/22 11:40 O2 Del Method 02/21/22 11:40 O2 Flow Rate 2 02/21/22 11:40 Oxygen Flow Rate 2 02/17/22 07:43 BMI result Body Mass Index 28.1 General: AO X 3, no acute distress Resp: CTA bilateral, no accessory muscles used CVS: S1,S2,RRR GI: soft, non tender, non distended Neuro: motor grossly intact, alert Psych: appropriate affect, appropriate insight Objective Data Active Medications Acetaminophen (Acetaminophen 325 Mg Tablet) 650 mg PO Q6H PRN PRN Reason: Pain, Mild (Pain Scale 1-3) Last Admin: 02/20/22 22:09 Dose: 650 mg Albuterol Sulfate (Albuterol Sulfate (0.083%) 2.5 Mg/3 Ml Vial.Neb) 2.5 mg INHALE Q2H PRN PRN Reason: Shortness of Breath/Wheezing Albuterol/Ipratropium (Albuterol/Iprat 2.5/0.5mg 3 Ml Ampul.Neb) 3 ml INHALE Q6H PRN PRN Reason: Shortness Of Breath Or Wheezing Albuterol/Ipratropium (Albuterol/Iprat 2.5/0.5mg 3 Ml Ampul.Neb) 3 ml INHALE RQ4H WHILE AWAKE [facility] Last Admin: 02/21/22 07:45 Dose: 3 ml Documented By: LIANG Atorvastatin Calcium (Atorvastatin Calcium 10 Mg Tablet) 10 mg PO DAILY [facility] Last Admin: 02/21/22 10:06 Dose: 10 mg Documented By: SANDOR Buprenorphine/Naloxone (Buprenorphine/Naloxone 4/1 Mg Film) 1 film SUBLINGUAL DAILY [facility] Last Admin: 02/21/22 10:07 Dose: 1 film Documented By: SANDOR Diltiazem HCl (Diltiazem Hcl Cd 180 Mg Cap.Er.24h) 180 mg PO DAILY [facility]; Protocol Last Admin: 02/21/22 10:06 Dose: 180 mg Documented By: SANDOR Docusate Sodium (Docusate Sodium 100 Mg Capsule) 100 mg PO DAILY PRN PRN Reason: Constipation Folic Acid (Folic Acid 1 Mg Tablet) 1 mg PO DAILY [facility] Last Admin: 02/21/22 10:06 Dose: 1 mg Documented By: SANDOR Lidocaine/Diphenhydr/Alum/Mg/Simeth (Mag&Al/Sim/Diphenhyd/Lidocaine 10 Ml Oral.Susp) 10 ml PO Q4H PRN PRN Reason: sore throat Methylprednisolone Sodium Succinate (Methylprednisolone Sod Succ 40 Mg/Ml Vial) 40 mg IVPUSH Q12H [facility] Last Admin: 02/21/22 10:06 Dose: 40 mg Documented By: SANDOR Nicotine (Nicotine 21 Mg Patch.Td24) 21 mg TRANSDERMA DAILY [facility] Last Admin: 02/21/22 10:21 Dose: Not Given Documented By: SANDOR Non-Admin Reason: Patient Refused Non-Formulary Medication (Milnacipran [Savella]) 50 mg PO BID [facility] Omeprazole (Omeprazole 20 Mg Capsule.Dr) 20 mg PO DAILY@0630 [facility] Last Admin: 02/21/22 05:57 Dose: 20 mg Documented By: LOUISE Ondansetron HCl (Ondansetron Odt 8 Mg Tab.Rapdis) 8 mg TRANSLINGU Q8H PRN PRN Reason: Nausea Paroxetine HCl (Paroxetine Hcl 30 Mg Tablet) 60 mg PO DAILY [facility] Last Admin: 02/21/22 10:06 Dose: 60 mg Documented By: SANDOR Pharmacy Consult (Consult Rx Perform Med Rec) 1 each MISCELLANE ONCE PRN PRN Reason: Consult order Sodium Chloride (0.9 % Sodium Chloride Flush 3 Ml Syringe) 3 ml IVFLUSH QSHIFT [facility] Last Admin: 02/21/22 10:07 Dose: 3 ml Documented By: SANDOR Vitamin D (Cholecalciferol (Vitamin D3) 25 Mcg Tablet) 50 mcg PO DAILY [facility] Last Admin: 02/21/22 10:06 Dose: 50 mcg Documented By: SANDOR Labs CBC & Chem 7: 02/21/22 06:19 02/21/22 06:19 Labs: Laboratory Results - last 24 hr 02/17/22 02/20/22 02/21/22 06:00 10:28 06:19 MCV 93.4 MCH 31.0 MCHC 33.2 RDW 22.8 H Plt Count 64 L MPV 10.5 Immature Gran % (Auto) 2.2 H Neut % (Auto) 87.9 H Lymph % (Auto) 3.5 L [place] % (Auto) 6.2 Eos % (Auto) 0.0 Baso % (Auto) 0.2 Lymph # (Auto) 0.4 L [place] # (Auto) 0.6 Eos # (Auto) 0.0 Baso # (Auto) 0.0 Abs Immat Gran (auto) 0.22 H Absolute Neuts (auto) 9.0 H Absolute Nucleated RBC 0.030 H Nucleated RBC % (auto) 0.3 H Anion Gap Estim Creat Clear Calc Estimated GFR Random Glucose Calcium Blood Type A Positive Antibody Screen NEGATIVE Crossmatch See Detail See Detail 02/21/22 06:19 MCV MCH MCHC RDW Plt Count MPV Immature Gran % (Auto) Neut % (Auto) Lymph % (Auto) [place] % (Auto) Eos % (Auto) Baso % (Auto) Lymph # (Auto) [place] # (Auto) Eos # (Auto) Baso # (Auto) Abs Immat Gran (auto) Absolute Neuts (auto) Absolute Nucleated RBC Nucleated RBC % (auto) Anion Gap 18 Estim Creat Clear Calc 53.6 Estimated GFR 45 Random Glucose 165 H Calcium 9.5 D Blood Type Antibody Screen Crossmatch Assessment and Plan (1) Severe anemia: Status: Acute (2) Bronchiolitis: Status: Acute Plan 61F with pmh NSCLC on chemotherapy s/p LITA and RUL wedge resection, breast cancer, depression, HCV, HTN, COPD, PAF, opiate dependence to be observed for symptomatic anemia with VIKTORIYA. chronic normocytic anemia secondary to non-small cell lung cancer on chemotherapy H/H improved s/p 2 units packed red blood cells 02/17/22 and 1 unit 02/20/22 denies any bleeding episodes acute hypoxic respiratory failure- secondary to copd with acute decompensation due to RSV steroids, wean o2 duonebs still sob will add azithro demand ischemia secondary to symptomatic anemia -troponin elevated at 84.? Repeat 62.3. EKG showing NSR with nonspecific ST abnormalities. lactic acid initially elevated at 2.4, improved to 1.5.? Not severe sepsis non-small cell lung cancer on chemotherapy s/p bilateral upper lobe right wedge resection continue chemotherapy outpatient B/l pleural effusions. Repeat CXR oncology paroxysmal atrial fibrillation- rate controlled chads Vasc score 2.? Hold on anticoagulation due to thrombocytopenia and anemia continue diltiazem chronic diastolic heart failure-stable stable opiate dependence continue Suboxone HTN continue diltiazem and metoprolol dvt prophylaxis- mechanical due to thrombocytopenia full code reason for continued hospitalization: weaning o2, still sob Quality Stroke Does the patient have a stroke diagnosis?: No VTE Prior VTE?: No VTE Risk Level:: Medical - moderate - high VTE Device Contraindication: N/A - Device Ordered VTE Drug Contraindication: Treatment Not Indicated
[2022-02-21] MEDS: Azithromycin 500 MG TABLET PO (12:44)
[2022-02-22] VITALS (10 sets, daily range): BP systolic 133–173; BP diastolic 88–101; PULSE 63–84; RESP 15–20; TEMP 36.1–36.6; O2SAT 88–97
[2022-02-22] MEDS: 0.9 % Sodium Chloride Flush 3 ML SYRINGE IVFLUSH ×4 (02:04→21:34)
[2022-02-22] MEDS: Omeprazole 20 MG CAPSULE.DR PO (05:21)
[2022-02-22 06:28] LABS: Hemoglobin 8.9 g/dl (12.0-16.0); Mean Corpuscular Hemoglobin 31.3 pg (27.0-33.0); Mean Corpuscular Volume 95.1 fL (80.0-98.0); NRBC Pct Auto 0.4 /100WBC (0.0-0.2); Red Blood Count 2.84 X10*6/uL (4.20-5.50); Red Cell Distribution Width 22.6 % (11.0-16.0); White Blood Count 10.6 X10*3/uL (4.8-10.8)
[2022-02-22 06:30] LABS: Platelet Count 76 X10*3/uL (160-400)
[2022-02-22 06:37] LABS: Anion Gap 17 (12-20); Blood Urea Nitrogen 35 mg/dL (9-16); Calcium 9.2 mg/dL (8.4-10.2); Carbon Dioxide 32 mmol/L (22-29); Chloride 95 mmol/L (96-108); Creatinine Clr Calc Pharmacy 57.4; Estimated Glomerular Filt Rate 49; Glucose Fasting 172 mg/dL (60-99); Potassium 4.3 mmol/L (3.3-5.1); Sodium 140 mmol/L (135-145)
[2022-02-22] MEDS: Albuterol/Iprat 2.5/0.5MG 3 ML AMPUL.NEB INHALE ×4 (07:53→19:36)
[2022-02-22] MEDS: dilTIAZem HCL CD 180 MG CAP.ER.24H PO (09:35)
[2022-02-22] MEDS: Folic Acid 1 MG TABLET PO (09:35)
[2022-02-22] MEDS: PARoxetine HCL 30 MG TABLET 60 MG PO (09:35)
[2022-02-22] MEDS: methylPREDNISolone Sod Succ 40 MG/ML VIAL IVPUSH ×2 (09:35→21:33)
[2022-02-22] MEDS: Cholecalciferol (Vitamin D3) 25 MCG TABLET 50 MCG PO (09:35)
[2022-02-22] MEDS: Buprenorphine/Naloxone 4/1 mg FILM 1 FILM SUBLINGUAL (09:35)
[2022-02-22] MEDS: Atorvastatin Calcium 10 MG TABLET PO (09:35)
--- NOTE | 2022-02-22 10:52 | HO.PM.IMPN ---
Subjective Subjective Date of Service: 02/22/22 Interval History: cC: weakness interval history:sob, but some improvement Respiratory Respiratory: Reports no additional respiratory complaints Gastrointestinal Gastrointestinal: Reports no additional gastrointestinal complaints Physical Exam Vital Signs: Vital Signs: Last Vital Signs Temp 96.9 F 02/22/22 08:00 Pulse 63 02/22/22 08:00 Resp 19 02/22/22 08:00 BP 169/99 H 02/22/22 08:00 Pulse Ox 97 02/22/22 08:00 O2 Del Method 02/22/22 08:00 O2 Flow Rate 2.0 02/22/22 08:00 Oxygen Flow Rate 2 02/17/22 07:43 BMI result Body Mass Index 28.1 General: AO X 3, no acute distress Resp: CTA bilateral, no accessory muscles used CVS: S1,S2,RRR GI: soft, non tender, non distended Neuro: motor grossly intact, alert Psych: appropriate affect, appropriate insight Objective Data Active Medications Acetaminophen (Acetaminophen 325 Mg Tablet) 650 mg PO Q6H PRN PRN Reason: Pain, Mild (Pain Scale 1-3) Last Admin: 02/20/22 22:09 Dose: 650 mg Albuterol Sulfate (Albuterol Sulfate (0.083%) 2.5 Mg/3 Ml Vial.Neb) 2.5 mg INHALE Q2H PRN PRN Reason: Shortness of Breath/Wheezing Albuterol/Ipratropium (Albuterol/Iprat 2.5/0.5mg 3 Ml Ampul.Neb) 3 ml INHALE Q6H PRN PRN Reason: Shortness Of Breath Or Wheezing Albuterol/Ipratropium (Albuterol/Iprat 2.5/0.5mg 3 Ml Ampul.Neb) 3 ml INHALE RQ4H WHILE AWAKE ON LICENSE OF [facility] Last Admin: 02/22/22 07:53 Dose: 3 ml Documented By: LIANG Atorvastatin Calcium (Atorvastatin Calcium 10 Mg Tablet) 10 mg PO DAILY ON LICENSE OF [facility] Last Admin: 02/22/22 09:35 Dose: 10 mg Documented By: SANDOR Azithromycin (Azithromycin 500 Mg Tablet) 500 mg PO Q24H ON LICENSE OF [facility] Last Admin: 02/21/22 12:44 Dose: 500 mg Documented By: SANDOR Buprenorphine/Naloxone (Buprenorphine/Naloxone 4/1 Mg Film) 1 film SUBLINGUAL DAILY ON [facility] Last Admin: 02/22/22 09:35 Dose: 1 film Documented By: SANDOR Diltiazem HCl (Diltiazem Hcl Cd 180 Mg Cap.Er.24h) 180 mg PO DAILY ON [facility]; Protocol Last Admin: 02/22/22 09:35 Dose: 180 mg Documented By: SANDOR Docusate Sodium (Docusate Sodium 100 Mg Capsule) 100 mg PO DAILY PRN PRN Reason: Constipation Folic Acid (Folic Acid 1 Mg Tablet) 1 mg PO DAILY ON [facility] Last Admin: 02/22/22 09:35 Dose: 1 mg Documented By: SANDOR Lidocaine/Diphenhydr/Alum/Mg/Simeth (Mag&Al/Sim/Diphenhyd/Lidocaine 10 Ml Oral.Susp) 10 ml PO Q4H PRN PRN Reason: sore throat Methylprednisolone Sodium Succinate (Methylprednisolone Sod Succ 40 Mg/Ml Vial) 40 mg IVPUSH Q12H ON LICENSE [facility] Last Admin: 02/22/22 09:35 Dose: 40 mg Documented By: SANDOR Nicotine (Nicotine 21 Mg Patch.Td24) 21 mg TRANSDERMA DAILY ON [facility] Last Admin: 02/22/22 09:47 Dose: Not Given Documented By: SANDOR Non-Admin Reason: Patient Refused Non-Formulary Medication (Milnacipran [Savella]) 50 mg PO BID ON LICENSE OF [facility] Omeprazole (Omeprazole 20 Mg Capsule.Dr) 20 mg PO DAILY@0630 ON [facility] Last Admin: 02/22/22 05:21 Dose: 20 mg Documented By: LOUISE Ondansetron HCl (Ondansetron Odt 8 Mg Tab.Rapdis) 8 mg TRANSLINGU Q8H PRN PRN Reason: Nausea Paroxetine HCl (Paroxetine Hcl 30 Mg Tablet) 60 mg PO DAILY ON [facility] Last Admin: 02/22/22 09:35 Dose: 60 mg Documented By: SANDOR Pharmacy Consult (Consult Rx Perform Med Rec) 1 each MISCELLANE ONCE PRN PRN Reason: Consult order Sodium Chloride (0.9 % Sodium Chloride Flush 3 Ml Syringe) 3 ml IVFLUSH QSHIFT ON [facility] Last Admin: 02/22/22 09:36 Dose: 3 ml Documented By: SANDOR Vitamin D (Cholecalciferol (Vitamin D3) 25 Mcg Tablet) 50 mcg PO DAILY ON [facility] Last Admin: 02/22/22 09:35 Dose: 50 mcg Documented By: SANDOR Labs CBC & Chem 7: 02/22/22 05:42 02/22/22 05:42 Labs: Laboratory Results - last 24 hr 02/22/22 02/22/22 05:42 05:42 MCV 95.1 MCH 31.3 MCHC 33.0 RDW 22.6 H Plt Count 76 L MPV 11.0 Absolute Nucleated RBC 0.040 H Nucleated RBC % (auto) 0.4 H Anion Gap 17 Estim Creat Clear Calc 57.4 Estimated GFR 49 Fasting Glucose 172 H Calcium 9.2 Microbiology Microbiology Results: Microbiology 02/17/22 06:22 Blood Culture - Final Blood - Venous No growth after 5 days. 02/17/22 06:22 Blood Culture - Final Blood - Venous No growth after 5 days. Assessment and Plan (1) Severe anemia: Status: Acute (2) Bronchiolitis: Status: Acute Plan 61F with pmh NSCLC on chemotherapy s/p LITA and RUL wedge resection, breast cancer, depression, HCV, HTN, COPD, PAF, opiate dependence to be observed for symptomatic anemia with VIKTORIYA. chronic normocytic anemia secondary to non-small cell lung cancer on chemotherapy H/H improved s/p 2 units packed red blood cells 02/17/22 and 1 unit 02/20/22 denies any bleeding episodes acute hypoxic respiratory failure- secondary to copd with acute decompensation due to RSV steroids, wean o2 duonebs still sob but improving added azithro demand ischemia secondary to symptomatic anemia -troponin elevated at 84.? Repeat 62.3. EKG showing NSR with nonspecific ST abnormalities. lactic acid initially elevated at 2.4, improved to 1.5.? Not severe sepsis non-small cell lung cancer on chemotherapy s/p bilateral upper lobe right wedge resection continue chemotherapy outpatient B/l pleural effusions. Repeat CXR oncology paroxysmal atrial fibrillation- rate controlled chads Vasc score 2.? Hold on anticoagulation due to thrombocytopenia and anemia continue diltiazem chronic diastolic heart failure-stable stable opiate dependence continue Suboxone HTN continue diltiazem and metoprolol dvt prophylaxis- mechanical due to thrombocytopenia full code reason for continued hospitalization: weaning o2, still sob Quality Stroke Does the patient have a stroke diagnosis?: No VTE Prior VTE?: No VTE Risk Level:: Medical - moderate - high VTE Device Contraindication: N/A - Device Ordered VTE Drug Contraindication: Treatment Not Indicated
[2022-02-22] MEDS: Azithromycin 500 MG TABLET PO (11:36)
[2022-02-23] VITALS (11 sets, daily range): BP systolic 154–184; BP diastolic 90–102; PULSE 67–82; RESP 17–24; TEMP 35.8–36.6; O2SAT 4–98
[2022-02-23] MEDS: Albuterol Sulfate (0.083%) 2.5 MG/3 ML VIAL.NEB INHALE (01:44)
[2022-02-23] MEDS: Omeprazole 20 MG CAPSULE.DR PO (05:27)
[2022-02-23] MEDS: dilTIAZem HCL CD 180 MG CAP.ER.24H PO (08:24)
[2022-02-23] MEDS: Folic Acid 1 MG TABLET PO (08:24)
[2022-02-23] MEDS: PARoxetine HCL 30 MG TABLET 60 MG PO (08:24)
[2022-02-23] MEDS: Cholecalciferol (Vitamin D3) 25 MCG TABLET 50 MCG PO (08:24)
[2022-02-23] MEDS: Buprenorphine/Naloxone 4/1 mg FILM 1 FILM SUBLINGUAL (08:25)
[2022-02-23] MEDS: Atorvastatin Calcium 10 MG TABLET PO (08:25)
[2022-02-23] MEDS: methylPREDNISolone Sod Succ 40 MG/ML VIAL IVPUSH ×2 (10:34→21:24)
[2022-02-23] MEDS: Docusate Sodium 100 MG CAPSULE PO (10:34)
[2022-02-23] MEDS: Albuterol/Iprat 2.5/0.5MG 3 ML AMPUL.NEB INHALE ×4 (11:04→23:47)
--- NOTE | 2022-02-23 11:09 | HO.PM.IMPN ---
Subjective Subjective Date of Service: 02/23/22 Interval History: cC: weakness interval history:sob, but some improvement Respiratory Respiratory: Reports no additional respiratory complaints Gastrointestinal Gastrointestinal: Reports no additional gastrointestinal complaints Physical Exam Vital Signs: Vital Signs: Last Vital Signs Temp 97.8 F 02/23/22 08:00 Pulse 79 02/23/22 11:04 Resp 18 02/23/22 11:04 BP 174/90 H 02/23/22 08:00 Pulse Ox 4 L 02/23/22 08:00 O2 Del Method 02/23/22 08:00 O2 Flow Rate 92 02/23/22 08:00 Oxygen Flow Rate 2 02/17/22 07:43 BMI result Body Mass Index 28.1 General: AO X 3, no acute distress Resp: CTA bilateral, no accessory muscles used CVS: S1,S2,RRR GI: soft, non tender, non distended Neuro: motor grossly intact, alert Psych: appropriate affect, appropriate insight Objective Data Active Medications Acetaminophen (Acetaminophen 325 Mg Tablet) 650 mg PO Q6H PRN PRN Reason: Pain, Mild (Pain Scale 1-3) Last Admin: 02/20/22 22:09 Dose: 650 mg Albuterol Sulfate (Albuterol Sulfate (0.083%) 2.5 Mg/3 Ml Vial.Neb) 2.5 mg INHALE Q2H PRN PRN Reason: Shortness of Breath/Wheezing Last Admin: 02/23/22 01:44 Dose: 2.5 mg Documented By: CHRISTOPHER Albuterol/Ipratropium (Albuterol/Iprat 2.5/0.5mg 3 Ml Ampul.Neb) 3 ml INHALE Q6H PRN PRN Reason: Shortness Of Breath Or Wheezing Albuterol/Ipratropium (Albuterol/Iprat 2.5/0.5mg 3 Ml Ampul.Neb) 3 ml INHALE RQ4H WHILE AWAKE [facility] Last Admin: 02/23/22 11:04 Dose: 3 ml Documented By: ЕЛЕНА Atorvastatin Calcium (Atorvastatin Calcium 10 Mg Tablet) 10 mg PO DAILY [facility] Last Admin: 02/23/22 08:25 Dose: 10 mg Documented By: IVAN Azithromycin (Azithromycin 500 Mg Tablet) 500 mg PO Q24H [facility] Last Admin: 02/22/22 11:36 Dose: 500 mg Documented By: SANDOR Buprenorphine/Naloxone (Buprenorphine/Naloxone 4/1 Mg Film) 1 film SUBLINGUAL DAILY [facility] Last Admin: 02/23/22 08:25 Dose: 1 film Documented By: IVAN Diltiazem HCl (Diltiazem Hcl Cd 180 Mg Cap.Er.24h) 180 mg PO DAILY [facility]; Protocol Last Admin: 02/23/22 08:24 Dose: 180 mg Documented By: IVAN Docusate Sodium (Docusate Sodium 100 Mg Capsule) 100 mg PO DAILY PRN PRN Reason: Constipation Last Admin: 02/23/22 10:34 Dose: 100 mg Documented By: IVAN Folic Acid (Folic Acid 1 Mg Tablet) 1 mg PO DAILY [facility] Last Admin: 02/23/22 08:24 Dose: 1 mg Documented By: IVAN Lidocaine/Diphenhydr/Alum/Mg/Simeth (Mag&Al/Sim/Diphenhyd/Lidocaine 10 Ml Oral.Susp) 10 ml PO Q4H PRN PRN Reason: sore throat Methylprednisolone Sodium Succinate (Methylprednisolone Sod Succ 40 Mg/Ml Vial) 40 mg IVPUSH Q12H [facility] Last Admin: 02/23/22 10:34 Dose: 40 mg Documented By: IVAN Nicotine (Nicotine 21 Mg Patch.Td24) 21 mg TRANSDERMA DAILY [facility] Last Admin: 02/23/22 08:25 Dose: Not Given Documented By: IVAN Non-Admin Reason: Patient Refused Omeprazole (Omeprazole 20 Mg Capsule.Dr) 20 mg PO DAILY@0630 [facility] Last Admin: 02/23/22 05:27 Dose: 20 mg Documented By: LOUISE Ondansetron HCl (Ondansetron Odt 8 Mg Tab.Rapdis) 8 mg TRANSLINGU Q8H PRN PRN Reason: Nausea Paroxetine HCl (Paroxetine Hcl 30 Mg Tablet) 60 mg PO DAILY [facility] Last Admin: 02/23/22 08:24 Dose: 60 mg Documented By: IVAN Pharmacy Consult (Consult Rx Perform Med Rec) 1 each MISCELLANE ONCE PRN PRN Reason: Consult order Sodium Chloride (0.9 % Sodium Chloride Flush 3 Ml Syringe) 3 ml IVFLUSH QSHIFT [facility] Last Admin: 02/23/22 08:28 Dose: Not Given Documented By: IVAN Non-Admin Reason: No Access Vitamin D (Cholecalciferol (Vitamin D3) 25 Mcg Tablet) 50 mcg PO DAILY [facility] Last Admin: 02/23/22 08:24 Dose: 50 mcg Documented By: IVAN Labs CBC & Chem 7: 02/22/22 05:42 02/22/22 05:42 Microbiology Microbiology Results: Microbiology 02/17/22 06:22 Blood Culture - Final Blood - Venous No growth after 5 days. 02/17/22 06:22 Blood Culture - Final Blood - Venous No growth after 5 days. Assessment and Plan (1) Severe anemia: Status: Acute (2) Bronchiolitis: Status: Acute Plan 61F with pmh NSCLC on chemotherapy s/p LITA and RUL wedge resection, breast cancer, depression, HCV, HTN, COPD, PAF, opiate dependence to be observed for symptomatic anemia with VIKTORIYA. chronic normocytic anemia secondary to non-small cell lung cancer on chemotherapy H/H improved s/p 2 units packed red blood cells 02/17/22 and 1 unit 02/20/22 denies any bleeding episodes acute hypoxic respiratory failure- secondary to copd with acute decompensation due to RSV continue steroids, wean o2 duonebs still sob but improving added azithro will need home o2 eval prior to discharge demand ischemia secondary to symptomatic anemia -troponin elevated at 84.? Repeat 62.3. EKG showing NSR with nonspecific ST abnormalities. lactic acid initially elevated at 2.4, improved to 1.5.? Not severe sepsis non-small cell lung cancer on chemotherapy s/p bilateral upper lobe right wedge resection continue chemotherapy outpatient B/l pleural effusions. Repeat CXR oncology paroxysmal atrial fibrillation- rate controlled chads Vasc score 2.? Hold on anticoagulation due to thrombocytopenia and anemia continue diltiazem chronic diastolic heart failure-stable stable opiate dependence continue Suboxone HTN continue diltiazem and metoprolol dvt prophylaxis- mechanical due to thrombocytopenia full code reason for continued hospitalization: weaning o2, still sob Quality Stroke Does the patient have a stroke diagnosis?: No VTE Prior VTE?: No VTE Risk Level:: Medical - moderate - high VTE Device Contraindication: N/A - Device Ordered VTE Drug Contraindication: Treatment Not Indicated
[2022-02-23] MEDS: Azithromycin 500 MG TABLET PO (12:30)
--- NOTE | 2022-02-23 12:46 | P.PNHO-ONC_ITS ---
Medical Summary - Medical Summary Date of Service: 02/23/22 Chief complaint: SOB Medical Summary: diagnosis: Metastatic non-small cell cell lung cancer Interval History Interval history: She is doing better but continues to report shortness of breath with minimal exertion. No chest pain. She denies fever or chills. No nausea or emesis. No abdominal pain or diarrhea. Review of Systems - Constitutional Reports as per [facility] Medical History: Medical History (Last Reviewed 02/18/22 @ 16:50 by Clau Carpenter MD) Bilateral lung cancer Cancer of upper lobe of left lung Onset Date: ~2020 Cancer of upper lobe of right lung Onset Date: ~2019 COPD (chronic obstructive pulmonary disease) Depression GERD (gastroesophageal reflux disease) History of breast cancer Onset Date: ~2006 History of hepatitis C HTN (hypertension) Internal and external bleeding hemorrhoids New onset a-fib Obesity Pancytopenia Pulmonary nodules Smoker Tubular adenoma of colon Family History: Family History (Last Reviewed 02/18/22 @ 16:50 by Clau Carpenter MD) Mother History of lung cancer Brother History of lung cancer Maternal Grandmother Breast cancer in female Maternal Aunt Breast cancer in female Daughter Thyroid cancer Surgical History: Surgical History (Last Reviewed 02/18/22 @ 16:50 by Clau Carpenter MD) History of anterior colporrhaphy Onset Date: ~2016 History of back surgery Onset Date: ~2011 History of colonoscopy Onset Date: ~2014 History of hemorrhoidectomy Onset Date: ~2019 History of lobectomy of lung Onset Date: ~2019 History of lumpectomy of right breast Onset Date: ~2006 History of lung surgery Onset Date: ~2020 History of tubal ligation Social History: Social History (Last Reviewed 02/18/22 @ 16:50 by Clau Carpenter MD) Living Situation History: Household Members: Spouse Housing: Apartment Are you a primary director of critical care to a significant other at home: No Do you presently have visiting nurse or other home services: No Alcohol History: Unable to assess alcohol history related to: Unable to respond Alcohol History Details: Currently Displaying Signs/Symptoms of Alcohol Withdrawal: No Tobacco History: Patient Tobacco Use Status: Never used Tobacco Tobacco use type: Cigar Years Smoked: 46 Smoked in Last 30 Days: Yes Second Hand Smoke Exposure: No Substance Use History: Use of substances other than those prescribed or required for medical reasons : Yes Substance Use Type: Marijuana Substance Use Frequency: Occasionally Last Used Substance: Just Prior to Admission Currently Displaying Signs/Symptoms of Drug Intoxication Withdrawal: No Any prior treatment program specific to substance use: No Domestic Abuse History: Have you been hit, kicked, punched, or otherwise hurt by someone within the past year? If so, by whom?: No Do you feel safe in your current relationship?: No Is there a partner from a previous relationship who is making you feel unsafe now?: No Are you made to feel afraid or neglected: No Advance Directives: Advance Directives: No Advance Directives Information Provided: Advance Directives Information Provided comment: declined Homicidal Assessment: Do you have thoughts of harming others: None Do you have a plan to hurt others: No Plan Nutrition Assessment: Recently lost weight without trying: Yes How much weight loss: 14-23 pounds Nutrition Risks: No Nutritional Risk Patient : No : No Occupation Assessmet: service: No Current occupational status: disabled Current occupational exposures/hazards: No Home Medications and Allergies Current Medications: Current Medications Acetaminophen (Acetaminophen 325 Mg Tablet) 650 mg PO Q6H PRN PRN Reason: Pain, Mild (Pain Scale 1-3) Last Admin: 02/20/22 22:09 Dose: 650 mg Albuterol Sulfate (Albuterol Sulfate (0.083%) 2.5 Mg/3 Ml Vial.Neb) 2.5 mg INHALE Q2H PRN PRN Reason: Shortness of Breath/Wheezing Last Admin: 02/23/22 01:44 Dose: 2.5 mg Albuterol/Ipratropium (Albuterol/Iprat 2.5/0.5mg 3 Ml Ampul.Neb) 3 ml INHALE Q6H PRN PRN Reason: Shortness Of Breath Or Wheezing Albuterol/Ipratropium (Albuterol/Iprat 2.5/0.5mg 3 Ml Ampul.Neb) 3 ml INHALE RQ4H WHILE AWAKE [facility] Last Admin: 02/23/22 11:04 Dose: 3 ml Atorvastatin Calcium (Atorvastatin Calcium 10 Mg Tablet) 10 mg PO DAILY [facility] Last Admin: 02/23/22 08:25 Dose: 10 mg Azithromycin (Azithromycin 500 Mg Tablet) 500 mg PO Q24H WALTER Last Admin: 02/23/22 12:30 Dose: 500 mg Buprenorphine/Naloxone (Buprenorphine/Naloxone 4/1 Mg Film) 1 film SUBLINGUAL DAILY [facility] Last Admin: 02/23/22 08:25 Dose: 1 film Diltiazem HCl (Diltiazem Hcl Cd 180 Mg Cap.Er.24h) 180 mg PO DAILY [facility]; Protocol Last Admin: 02/23/22 08:24 Dose: 180 mg Docusate Sodium (Docusate Sodium 100 Mg Capsule) 100 mg PO DAILY PRN PRN Reason: Constipation Last Admin: 02/23/22 10:34 Dose: 100 mg Folic Acid (Folic Acid 1 Mg Tablet) 1 mg PO DAILY [facility] Last Admin: 02/23/22 08:24 Dose: 1 mg Lidocaine/Diphenhydr/Alum/Mg/Simeth (Mag&Al/Sim/Diphenhyd/Lidocaine 10 Ml Oral.Susp) 10 ml PO Q4H PRN PRN Reason: sore throat Methylprednisolone Sodium Succinate (Methylprednisolone Sod Succ 40 Mg/Ml Vial) 40 mg IVPUSH Q12H [facility] Last Admin: 02/23/22 10:34 Dose: 40 mg Nicotine (Nicotine 21 Mg Patch.Td24) 21 mg TRANSDERMA DAILY [facility] Last Admin: 02/23/22 08:25 Dose: Not Given Omeprazole (Omeprazole 20 Mg Capsule.Dr) 20 mg PO DAILY@0630 [facility] Last Admin: 02/23/22 05:27 Dose: 20 mg Ondansetron HCl (Ondansetron Odt 8 Mg Tab.Rapdis) 8 mg TRANSLINGU Q8H PRN PRN Reason: Nausea Paroxetine HCl (Paroxetine Hcl 30 Mg Tablet) 60 mg PO DAILY [facility] Last Admin: 02/23/22 08:24 Dose: 60 mg Pharmacy Consult (Consult Rx Perform Med Rec) 1 each MISCELLANE ONCE PRN PRN Reason: Consult order Sodium Chloride (0.9 % Sodium Chloride Flush 3 Ml Syringe) 3 ml IVFLUSH QSHIFT [facility] Last Admin: 02/23/22 08:28 Dose: Not Given Vitamin D (Cholecalciferol (Vitamin D3) 25 Mcg Tablet) 50 mcg PO DAILY [facility] Last Admin: 02/23/22 08:24 Dose: 50 mcg Home Medications Medication Instructions Recorded Confirmed Type buprenorphine 4 mg-naloxone 1 mg 1 strip sublingual DAILY 01/18/22 02/17/22 History sublingual film (Suboxone) diltiazem HCl 180 mg 180 mg PO DAILY 01/18/22 02/17/22 History capsule,extended release 24 hr, controlled (DILT-XR) folic acid 1 mg tablet 1 mg PO DAILY 01/18/22 02/17/22 History metoprolol tartrate 50 1 tab PO DAILY 01/18/22 02/17/22 History mg-hydrochlorothiazide 25 mg tablet milnacipran 50 mg tablet (Savella) 50 mg PO BID 01/18/22 02/17/22 History omeprazole 20 mg capsule,delayed 20 mg PO DAILY@0630 01/18/22 02/17/22 History release paroxetine HCl 20 mg tablet 60 mg PO DAILY 01/18/22 02/17/22 History umeclidinium 62.5 mcg-vilanterol 1 puff inhalation DAILY 01/18/22 02/17/22 History 25 mcg/actuation powdr for inhalation (Anoro Ellipta) cholecalciferol (vitamin D3) 50 50 mcg PO DAILY 02/17/22 02/17/22 History mcg (2,000 unit) tablet (Vitamin D3) dexamethasone 4 mg tablet 8 mg PO BID 02/17/22 02/17/22 History ipratropium 0.5 mg-albuterol 3 mg 3 ml inhalation Q6-8H PRN 02/17/22 02/17/22 History (2.5 mg base)/3 mL nebulization Shortness Of Breath Or Wheezing soln nicotine 21 mg/24 hr daily 1 patch topical DAILY 02/17/22 02/17/22 History transdermal patch ondansetron HCl 8 mg tablet 8 mg PO Q8H PRN Nausea 02/17/22 02/17/22 History simvastatin 20 mg tablet 20 mg PO DAILY 02/17/22 02/17/22 History Allergies Allergy/AdvReac Type Severity Reaction Status Date / Time lisinopril [LISINOPRIL] Allergy Severe SWELLING- Verified 01/15/22 12:39 ANGIOEDEMA codeine [CODEINE] Allergy Intermediate VOMITING/HIVES, Verified 01/15/22 12:39 vomiting, hives Exam Vital signs: Vital Signs Temp 96.4 F L 02/23/22 11:57 Pulse 67 02/23/22 11:57 Resp 24 H 02/23/22 11:57 BP 184/102 H 02/23/22 11:57 Pulse Ox 96 02/23/22 11:57 O2 Del Method 02/23/22 11:57 O2 Flow Rate 2 02/23/22 11:57 Intake & Output 02/22/22 02/23/22 02/23/22 18:59 06:59 18:59 Intake Total 520 / 760 240 / 760 Balance 520 / 760 240 / 760 Intake: Intake, Oral Amount 520 / 760 240 / 760 Other: Meal Refused No NPO No Breakfast % Eaten 100% Lunch % Eaten 100% Number of Unmeasured Voids 3 2 Urine Bathroom Bathroom Urine Color Yellow [place] Weight 81.64 kg BMI result Body Mass Index 28.1 - Constitutional Present: mild distress, chronically ill appearing - Routine HEENT Exam Head: Present: normocephalic - Routine Respiratory Exam Present: decreased breath sounds, wheezes - Routine Cardiovascular Exam Cardiovascular: Present: S1, S2, tachycardia - Routine Abdominal Exam Absent: tenderness - Routine Extremities Exam Absent: tenderness - Routine Skin Exam Present: intact - Routine Neurological Exam Present: alert, oriented X3 Data - Labs CBC & Chem 7: 02/22/22 05:42 02/22/22 05:42 - Imaging Radiologist's impression: ITS Impressions Chest X-Ray 02/17/22 06:18 IMPRESSION: Examination is not significantly changed when compared to 02/04/2022. Chest X-Ray 02/17/22 11:27 IMPRESSION: Small right pleural effusion similar to the most recent study, but improved from the 02/04/2022 study. Chest CTA 02/17/22 13:31 IMPRESSION: * No evidence of pulmonary embolism. * Centrilobular and paraseptal emphysema. * Bronchial bennett are thickened and there are endobronchial secretions from likely bronchitis, although secretions can also be observed within airways after aspiration. * New tree-in-bud nodules in the left lower lobe and new small patchy opacities in the periphery of the left upper lobe are likely from infectious bronchiolitis. * Trace bilateral pleural effusions are present. * No new skeletal metastases compared to 01/24/2022. Chest X-Ray 02/18/22 09:31 IMPRESSION: * No new cardiopulmonary abnormality compared to prior chest radiograph from 02/17/2022. * Small right pleural effusion is present. No pulmonary edema. Assessment and Plan Patient Active problem list reviewed?: Yes (1) Cancer of upper lobe of right lung Problem details: (stage 1 - s/p RUL lobectomy 07/2019) Status: Chronic Assessment and plan: 1. This is a pleasant 61-year-old woman with bilateral lung adenocarcinoma. She has been diagnosed with recurrent metastatic lung cancer in the right with bone and brain metastasis in september 2021. Patient received 4 cycles of chemotherapy with pembrolizumab, carboplatin and p emetrexed on 11/13/2021. She has had multiple recent admissions for cytopenias and infection. She r equired blood and platelet transfusions. She has developed worsening shortness of breath, CT angiogram is negative for PE but shows changes of infectious bronchiolitis. She tested positive for RSV. She is receiving Solu-Medrol and DuoNebs. She is on supplemental oxygen. She has received 3 units blood transfusion. As for her lung cancer, current imaging shows a right lower lobe density to have decreased in size, currently measures 0.8 cm. Previously it was 1.4 cm. She has asymptomatic brain metastasis as well as bone metastasis. She is due for brain MRI with contrast. This can be performed as an outpatient unless she develops symptoms. She has been seen by barrel raiser, she has been recommended home O2. 2. Pancytopenia/anemia related to recent chemotherapy. This is not exacerbated by infection. Blood counts have improved. - Time Spent With Patient Time Spent with Patient (in minutes): 10
--- NOTE | 2022-02-23 13:05 | MHC.CM.PN ---
per rounds pt not ready for dc as he is still weaning from 02 and is still sob
[2022-02-23] MEDS: 0.9 % Sodium Chloride Flush 3 ML SYRINGE IVFLUSH ×2 (14:02→21:24)
[2022-02-24] VITALS (9 sets, daily range): BP systolic 150–186; BP diastolic 86–91; PULSE 65–108; RESP 17–69; TEMP 36.1–36.6; O2SAT 87–99
[2022-02-24 06:21] LABS: Hematocrit 28.1 % (37.0-47.0); Hemoglobin 9.1 g/dl (12.0-16.0); Mean Corpuscular HGB Conc 32.4 g/dl (31.0-35.0); Mean Corpuscular Volume 95.6 fL (80.0-98.0); Mean Platelet Volume 11.2 fL (9.4-12.3); NRBC Pct Auto 0.3 /100WBC (0.0-0.2); Red Blood Count 2.94 X10*6/uL (4.20-5.50); Red Cell Distribution Width 22.1 % (11.0-16.0); White Blood Count 11.1 X10*3/uL (4.8-10.8)
[2022-02-24 06:22] LABS: Platelet Count 78 X10*3/uL (160-400)
[2022-02-24] MEDS: Omeprazole 20 MG CAPSULE.DR PO (06:27)
[2022-02-24 06:38] LABS: Anion Gap 14 (12-20); Blood Urea Nitrogen 35 mg/dL (9-16); Calcium 9.4 mg/dL (8.4-10.2); Carbon Dioxide 35 mmol/L (22-29); Chloride 96 mmol/L (96-108); Creatinine Clr Calc Pharmacy 69.8; Estimated Glomerular Filt Rate > 60; Glucose Fasting 165 mg/dL (60-99); Potassium 5.1 mmol/L (3.3-5.1); Sodium 140 mmol/L (135-145)
[2022-02-24] MEDS: Albuterol/Iprat 2.5/0.5MG 3 ML AMPUL.NEB INHALE ×3 (08:05→15:14)
[2022-02-24] MEDS: Atorvastatin Calcium 10 MG TABLET PO (08:25)
[2022-02-24] MEDS: Folic Acid 1 MG TABLET PO (08:25)
[2022-02-24] MEDS: dilTIAZem HCL CD 180 MG CAP.ER.24H PO (08:25)
[2022-02-24] MEDS: PARoxetine HCL 30 MG TABLET 60 MG PO (08:25)
[2022-02-24] MEDS: 0.9 % Sodium Chloride Flush 3 ML SYRINGE IVFLUSH (08:26)
[2022-02-24] MEDS: Buprenorphine/Naloxone 4/1 mg FILM 1 FILM SUBLINGUAL (08:26)
[2022-02-24] MEDS: methylPREDNISolone Sod Succ 40 MG/ML VIAL IVPUSH (08:26)
[2022-02-24] MEDS: Cholecalciferol (Vitamin D3) 25 MCG TABLET 50 MCG PO (08:29)
[2022-02-24] MEDS: Azithromycin 500 MG TABLET PO (12:26)
--- NOTE | 2022-02-24 14:16 | P.DS_ITS ---
DS: Providers Provider Date of Service: 02/24/22 Date of admission: 02/18/22 13:18 Primary care physician: Daphne Rodriguez MD Consults: 02/17/22 12:46 Consult to Hematology / Oncology Routine Consulting Provider: Alexandria Samuels Reason for consultation: symptomatic anemia, nsclc 02/18/22 11:20 Consult to Pulmonology Routine Consulting Provider: Clau Carpenter Reason for consultation: infectious bronchiolitis, lung cancer DS: Diagnosis Discharge Diagnosis (1) Severe anemia: Status: Acute (2) Bronchiolitis: Status: Acute DS: Summary Hospital Course Hospital Course: from initial hpi: Chief Complaint: johnston 61F with pmh NSCLC on chemotherapy s/p LITA and RUL wedge resection, breast cancer, depression, HCV, HTN, COPD, PAF, opiate dependence presented with johnston that started yesterday. Also reporting associated orthopnea, chest tightness, palpitations, and fatigue. She had recent admission last month with new onset afib not on anticoagulation due to thrombocytopenia and anemia.? During admission required transfusion on 01/24.? H/H today is 6.2/18.7% (last 7.10/29 2.1% on 01/30) denies any recent bleeding episodes.? CXR shows bilateral pleural effusions, right > left, unchanged from last CXR on 02/04.? Last echocardiogram showed normal systolic function with EF > 70% with grade 2 diastolic dysfunction on 01/19/2022.? No leukocytosis.? Lactic acid 2.4, repeat 1.5.? Creatinine 1.14, baseline 0.77.? Troponin 84.9, BNP 149 (improved from baseline).? EKG showing NSR with nonspecific ST wave abnormalities.? One unit blood transfused with bernarda mai reporting increased SOB. Repeat CXR unchanged. Improved on 3L supplemental O2. Vitals otherwise stable. Also given 1g ceftriaxone.? She does endorse chronic cough with productive sputum unchanged from baseline.? She had a choking episode while out to eat 2 weeks ago and did present to the ED where admission was recommended but patient declined.? Denies fevers, chills, recent sick contacts, nausea, vomiting, leg edema, chest pressure. hospital course: Patient was admitted for chronic normocytic anemia secondary to non-small cell cancer and chemotherapy. She received total 3 units packed red blood cells and hemoglobin improved. She had no evidence of bleeding. Course was complicated by acute hypoxic respiratory failure secondary to COPD with acute decompensation due to RSV. She was given steroids and bronchodilators as well as azithromycin. Patient's symptoms improved. She had a home oxygen evaluation and determined to require home O2. She will be discharged on to a days of azithromycin. For paroxysmal atrial fibrillation she is not on anticoagulation due to thrombocytopenia. She was continue Cardizem. For chronic diastolic CHF she was stable. For opiate dependence she was given Suboxone. For hypertension she was continued on diltiazem and metoprolol. Patient is feeling better will be discharged home. Time Spent with Patient Time attestation: Total time spent providing and/or coordinating discharge services: Discharge coordination time: Greater than 30 minutes Quality: Safe Use of Opioids Does Pt have an Active Cancer Diagnosis on the Problem List?: Yes Opioid Measure Date for [facility] Report: 01/25/22 Opioid Measure Time for [facility] Report: 14:17 Quality: Stroke Does the patient have a stroke diagnosis?: No Physical Exam Vital Signs: Vital Signs: Last Vital Signs Temp 97.6 F 02/24/22 12:00 Pulse 83 02/24/22 12:09 Resp 22 H 02/24/22 12:09 BP 152/86 H 02/24/22 12:00 Pulse Ox 99 02/24/22 12:00 O2 Del Method 02/24/22 12:00 O2 Flow Rate 1.5 02/24/22 08:38 Oxygen Flow Rate 2 02/17/22 07:43 BMI result Body Mass Index 28.1 General: AO X 3, no acute distress Resp: CTA bilateral, no accessory muscles used CVS: S1,S2,RRR GI: soft, non tender, non distended Neuro: motor grossly intact, alert Psych: appropriate affect, appropriate insight DS: Data Data Completed and Pending Completed studies during hospitalization [Text1]: Procedures Transfusion of Nonautologous Platelets into Peripheral Vein, Percutaneous Approach (01/24/22) Transfusion of Nonautologous Red Blood Cells into Peripheral Vein, Percutaneous Approach (01/24/22) Labs on day of discharge: Laboratory Results - last 24 hr 02/24/22 02/24/22 05:55 05:55 WBC 11.1 H RBC 2.94 L Hgb 9.1 L Hct 28.1 L MCV 95.6 MCH 31.0 MCHC 32.4 RDW 22.1 H Plt Count 78 L MPV 11.2 Absolute Nucleated RBC 0.030 H Nucleated RBC % (auto) 0.3 H Sodium 140 Potassium 5.1 Chloride 96 Carbon Dioxide 35 H Anion Gap 14 BUN 35 H Creatinine 0.93 Estim Creat Clear Calc 69.8 Estimated GFR > 60 Fasting Glucose 165 H Calcium 9.4 Discharge Plan Discharge Anticipated Discharge Date/Time: 02/24/22 13:30 Patient Disposition: Home, Self-Care Discharge Diagnosis: rsv Referrals: Daphne Rodriguez MD [Primary Care Provider] - 1 Week Discharge Medications: New azithromycin 500 mg Tablet 500 mg PO Q24H Qty: 3 0RF Continued Mag&Al/Sim/Diphenhyd/Lidocaine [Magic Mouthwash] 10 ml PO Q4H PRN (Reason: sore throat) Qty: 300 1RF metoprolol ta-hydrochlorothiaz 50-25 mg tablet 1 tab PO DAILY paroxetine HCl 20 mg tablet 60 mg PO DAILY omeprazole 20 mg capsule,delayed release(DR/EC) 20 mg PO DAILY@0630 folic acid 1 mg tablet 1 mg PO DAILY diltiazem HCl [DILT-XR] 180 mg capsule,ext.rel 24h degradable 180 mg PO DAILY Savella 50 mg tablet 50 mg PO BID buprenorphine-naloxone [Suboxone] 4-1 mg film 1 strip sublingual DAILY Anoro Ellipta 62.5-25 mcg/actuation blister with device 1 puff INHALATION DAILY ipratropium-albuterol 0.5 mg-3 mg(2.5 mg base)/3 mL Solution For Nebulization 3 ml INHALATION Q6-8H PRN (Reason: Shortness Of Breath Or Wheezing) ondansetron HCl 8 mg Tablet 8 mg PO Q8H PRN (Reason: Nausea) Rx Instructions: TO BE TAKEN WHEN GETTING CHEMO simvastatin 20 mg Tablet 20 mg PO DAILY dexamethasone 4 mg Tablet 8 mg PO BID Rx Instructions: TO BE TAKEN FOR 2 DAYS AFTER CHEMO nicotine 21 mg/24 hr Patch 24 Hour 1 patch topical DAILY cholecalciferol (vitamin D3) [Vitamin D3] 50 mcg (2,000 unit) Tablet 50 mcg PO DAILY Discharge Orders: Discharge Order (Routine); Ordered 02/24/22 Ordered By: Joel Brink Diet: Advance to usual diet Activity on Discharge: As tolerated Stand Alone Forms: Patient Portal Discharge page Care Plan Goals: recovbery Health Concerns: rsv Plan of Treatment: 3 more days azitrho, home o2 Assessment: see above
--- NOTE | 2022-02-24 15:53 | MHC.CM.PN ---
pt dcd home no skilled servceis ordered by md morton to transport home
--- NOTE | 2022-02-24 16:13 | PC.NURSE ---
report received from overnight RN, administrative medical director per JUN. Home O2 eval completed by RT, pt requires home o2. Pt education given, pt verbalized understanding with no further questions. IV removed, Tele monitor removed, belongings returned. Pt brought down by DUMP GROUNDS CHECKER in wheelchair, daughter to transport home.
== END 2022-02-24 16:19 | disposition home or self-care (01) | DRG 140 ==
LOC: HO.ED 07:12 → HO.EDOVER 12:39 → HO.IMC 02-18 13:24
PROVIDERS: Internal Medicine; Student in an Organized Health Care Education/Training Program; Admitting Provider Physician Assistant; Emergency Provider Internal Medicine; PCP Pediatrics; Visit Provider Internal Medicine
DX: J44.0 Chronic obstructive pulmonary disease with (acute) lower respiratory infection (principal); D61.810 Antineoplastic chemotherapy induced pancytopenia; E87.20 Acidosis, unspecified; I24.8 Other forms of acute ischemic heart disease; C79.51 Secondary malignant neoplasm of bone; N17.9 Acute kidney failure, unspecified; J21.0 Acute bronchiolitis due to respiratory syncytial virus; C34.11 Malignant neoplasm of upper lobe, right bronchus or lung; D63.0 Anemia in neoplastic disease; C34.12 Malignant neoplasm of upper lobe, left bronchus or lung; C79.31 Secondary malignant neoplasm of brain; I50.32 Chronic diastolic (congestive) heart failure; I11.0 Hypertensive heart disease with heart failure; F11.20 Opioid dependence, uncomplicated; I48.0 Paroxysmal atrial fibrillation; J91.0 Malignant pleural effusion; D64.81 Anemia due to antineoplastic chemotherapy; F32.A Depression, unspecified; J44.1 Chronic obstructive pulmonary disease with (acute) exacerbation; Z20.822 Contact with and (suspected) exposure to COVID-19; Z90.2 Acquired absence of lung [part of]; Z86.19 Personal history of other infectious and parasitic diseases; Z85.3 Personal history of malignant neoplasm of breast; Z88.5 Allergy status to narcotic agent; Z88.6 Allergy status to analgesic agent; Z79.899 Other long term (current) drug therapy
CPT/HCPCS: 36415; 71045; 71275; 80048; 80053; 82607; 82746; 83540; 83605; 83880; 84484; 85007; 85025; 85027; 85610; 86850; 86900; 86901; 86923; 87040; 87633; 87635; 93005; 94640; 99285; J0696; J1940; J2920; J2930; P9016; Q9967

== ENCOUNTER 2022-03-18 11:45 | Outpatient (REF) | payer MEDICAID, SELFPAY ==
--- NOTE | ~2022-03-18 | XR_ITS ---
EXAMINATION: XR CHEST CLINICAL INFORMATION: Shortness of breath. COMPARISON: 02/18/2022 chest radiograph. TECHNIQUE: Frontal view of the chest was obtained. FINDINGS: Postsurgical changes are again seen bilaterally with chain sutures overlying the midlung greer bilaterally. Mild blunting of the costophrenic angles is seen, right greater than left. Mild pleural thickening extends to the right apex. The heart and mediastinal structures are unremarkable. A cervical fixation plate is noted in place. XR/XR chest 1V IMPRESSION: Postsurgical changes without significant change. Possible small left pleural effusion and was not seen previously.
== END 2022-03-18 11:46 | disposition home or self-care (01) ==
LOC: HO.XRAY 11:45
PROVIDERS: PCP Pediatrics; Visit Provider Internal Medicine
DX: J90 Pleural effusion, not elsewhere classified (principal); R06.02 Shortness of breath; C34.11 Malignant neoplasm of upper lobe, right bronchus or lung
CPT/HCPCS: 71045

== ENCOUNTER 2022-03-24 11:15 | Outpatient (REF) | payer MEDICAID, SELFPAY ==
--- NOTE | ~2022-03-24 | PE_ITS ---
EXAMINATION: Fluorine-18 FDG PET/CT Scan CLINICAL INDICATION: Subsequent treatment management. Bilateral lung cancer. PROCEDURE: 89 minutes following the intravenous administration of 15.3 mCi of fluorine 18 FDG, images from the base of the skull to the mid thighs were obtained using a combined PET/CT scanner with CT scan based attenuation correction. No intravenous contrast was administered. Transverse, coronal, sagittal, and volume reconstruction projections were obtained. The patient's blood glucose as determined by a finger stick, was 124 mg/dl immediately prior to injection. The radiotracer was injected intravenously through right antecubital superficial vein, without any complications. Total CT exam dose-length product 62.32 mGy-cm * These CT images were obtained using dose optimization techniques as appropriate, variously including the following: Automated exposure control * Adjustment of mA and/or kV according to patient size (this includes techniques or standardized protocols for targeted exams where dose is matched to indication/reason for exam; i.e. extremities or head) * Use of iterative reconstruction technique COMPARISON: Most recent prior PET CT study done on 10/14/2021 and CTA of the chest done on 02/17/2022. FINDINGS: NECK AND VISUALIZED HEAD: Evaluation is technically limited due to motion related artifacts. No suspicious FDG avid disease. No significant change. THORAX: Previously documented extensive airspace disease and associated FDG avidity involving the right middle lobe and right lower lobe shows interval resolution. Previously documented FDG avid mediastinal lymphadenopathy also shows interval resolution. Bilateral non-FDG avid trace pleural effusions and/or thickenings are present, appear similar to prior study on the right. The left-sided effusion appears increased or new. Stable postsurgical changes of right upper lobar lung resection and wedge resection within the left upper lobe without any features of local disease recurrence. ABDOMEN AND PELVIS: No FDG avid liver or adrenal disease. Stable hypodense right adrenal nodule with Hounsfield value of -25, most consistent with incidental lipid rich adrenal adenoma. No FDG avid disease within the abdomen and pelvis. Physiologic radiotracer activities are present within the bladder and both renal pelvicalyceal system and both ureters. MUSCULOSKELETAL: Previously documented abnormal increased FDG avidity at C7 and T7 vertebral bodies show interval resolution. Postsurgical changes of anterior cervical spine fusion is noted at C5-C7 with intact hardware. Interval development of compression fracture and degenerative disc disease related changes are present at T5 and T6 vertebral body and the adjacent intervertebral disc space, without any FDG avidity. Interval development of compression fracture is also noted at the superior endplate of L3 vertebral body without any FDG avidity. VASCULAR: Atherosclerotic disease of the aorta and its branches, without aneurysm formation. PET/PET CT fusion skull to thigh IMPRESSION: 1. Interval resolution of previously documented right hemithoracic FDG avid airspace disease involving right middle and right lower lobes of the lung and associated FDG avid mediastinal lymph nodes since the most recent prior study dated 10/14/2021. 2. Previously documented FDG avid disease at C7 and T7 vertebral bodies also show interval resolution. 3.Interval development of non-FDG avid compression fractures at T5, T6 and L3 vertebral bodies and adjacent intervertebral degenerative disc disease. 4. Bilateral non-FDG avid small pleural effusions and/or thickening, stable on the right and minimally increased or new on the left since the prior study dated 10/14/2021.
== END 2022-03-24 11:16 | disposition home or self-care (01) ==
LOC: HO.PET 11:15
PROVIDERS: Visit Provider Internal Medicine
DX: Z13.89 Encounter for screening for other disorder (principal)

== ENCOUNTER 2022-03-31 14:47 | Outpatient (REF) | payer MEDICAID, SELFPAY ==
--- NOTE | ~2022-03-31 | MR_ITS ---
MR BRAIN WITHOUT AND WITH CONTRAST CLINICAL INFORMATION: Follow-up brain metastases. COMPARISON: Brain MRI 10/29/2021. TECHNIQUE: Multiplanar, multisequence MRI of the brain was obtained before and after the intravenous administration of 10 mL of Gadavist. FINDINGS: There is a new 3 mm nodular focus of enhancement along the dorsal cortical margin of the left parietal post central gyrus on image 1 6 of series 13 concerning for a small metastatic focus. There is also a new 2 mm punctate enhancing nodule within the inferior right parietal lobe on image 14 of series 10 concerning for a small metastatic focus. No additional new enhancing foci. No mass effect. Previously seen tubular branching focus of enhancement within the left parietal lobe and the previously seen 3 mm nodular focus of enhancement within the left cerebellum are no longer appreciated. There is mild chronic microangiopathy. There is no hydrocephalus, extra-axial surface collection, or herniation. The major flow voids at the skull base are preserved. There is no acute infarct on diffusion-weighted imaging. There is no intracranial hemorrhage on the gradient recalled echo acquisition. The midline structures are normal. The cerebellar tonsils are normally positioned. The cerebellum and brainstem are normal. The craniocervical junction is normal. Osseous marrow signal intensity is homogenous. The visualized soft tissues are unremarkable. Large bilateral mastoid effusions. MR/MR head/brain wo/w con IMPRESSION: - There is a new 3 mm nodular focus of enhancement along the dorsal cortical margin of the left parietal post central gyrus on image 1 6 of series 13 concerning for a small metastatic focus. There is also a new 2 mm punctate enhancing nodule within the inferior right parietal lobe on image 14 of series 10 concerning for a small metastatic focus. No additional new enhancing foci. No mass effect. - Previously seen tubular branching focus of enhancement within the left parietal lobe and the previously seen 3 mm nodular focus of enhancement within the left cerebellum are no longer appreciated. - Large bilateral mastoid effusions.
[2022-03-31 15:00] LABS: MANUAL DIFF FLAG NO
[2022-03-31 15:15] LABS: Basophils Percent Auto 0.5 % (0-2); Eosinophils Absolute Auto 0.1 X10*3/uL (0.0-0.4); Hematocrit 25.8 % (37.0-47.0); Hemoglobin 8.6 g/dl (12.0-16.0); Imm Gran Abs Auto 0.01 X10*3/uL (0.00-0.03); Imm Gran Pct Auto 0.2 % (0.0-0.4); Lymphocytes Absolute Auto 1.7 X10*3/uL (1.2-4.9); Lymphocytes Percent Auto 27.1 % (20-40); Mean Corpuscular HGB Conc 33.3 g/dl (31.0-35.0); Mean Corpuscular Hemoglobin 33.6 pg (27.0-33.0); Mean Corpuscular Volume 100.8 fL (80.0-98.0); Mean Platelet Volume 9.6 fL (9.4-12.3); Monocytes Absolute Auto 0.8 X10*3/uL (0.1-1.2); Monocytes Percent Auto 13.4 % (2-11); Neutrophils Absolute Auto 3.6 x10*3/uL (2.0-8.3); Neutrophils Percent Auto 57.8 % (45-73); Platelet Count 101 X10*3/uL (160-400); Red Blood Count 2.56 X10*6/uL (4.20-5.50); Red Cell Distribution Width 18.9 % (11.0-16.0); White Blood Count 6.3 X10*3/uL (4.8-10.8)
[2022-03-31 16:12] LABS: Alanine Aminotransferase 9 U/L (0-31); Albumin Level 4.1 g/dL (3.5-5.0); Alkaline Phosphatase 57 U/L (39-117); Anion Gap 13 (12-20); Aspartate Amino Transferase 21 U/L (5-31); Bilirubin Total 0.6 mg/dL (0.0-1.0); Blood Urea Nitrogen 16 mg/dL (9-16); Calcium 9.8 mg/dL (8.4-10.2); Carbon Dioxide 34 mmol/L (22-29); Chloride 97 mmol/L (96-108); Estimated Glomerular Filt Rate 43; Glucose Random 119 mg/dL (60-115); Potassium 3.7 mmol/L (3.3-5.1); Sodium 140 mmol/L (135-145); Total Protein 7.3 g/dL (6.5-8.0)
== END 2022-03-31 14:48 | disposition home or self-care (01) ==
LOC: HO.MRI 14:47
PROVIDERS: PCP Pediatrics; Visit Provider Internal Medicine
DX: C34.11 Malignant neoplasm of upper lobe, right bronchus or lung (principal)
CPT/HCPCS: 36415; 70553; 80053; 85025; A9585

== ENCOUNTER 2022-07-21 10:13 | Outpatient (REF) | payer MEDICAID, SELFPAY ==
--- NOTE | ~2022-07-21 | PE_ITS ---
EXAMINATION: Fluorine-18 FDG PET/CT Scan CLINICAL INDICATION: Subsequent treatment management. Bilateral lung cancer. Right lung nodule. PROCEDURE: 62 minutes following the intravenous administration of 15.7 mCi of fluorine 18 FDG, images from the base of the skull to the mid thighs were obtained using a combined PET/CT scanner with CT scan based attenuation correction. No intravenous contrast was administered. Transverse, coronal, sagittal, and volume reconstruction projections were obtained. The patient's blood glucose as determined by a finger stick, was 94 mg/dl immediately prior to injection. The radiotracer was injected intravenously through right antecubital superficial vein, without any complications. Total CT exam dose-length product 759.07 mGy-cm * These CT images were obtained using dose optimization techniques as appropriate, variously including the following: Automated exposure control * Adjustment of mA and/or kV according to patient size (this includes techniques or standardized protocols for targeted exams where dose is matched to indication/reason for exam; i.e. extremities or head) * Use of iterative reconstruction technique COMPARISON: Most recent prior PET CT study done on 03/24/2021 and the available baseline study done on 03/11/2021. MRI of the brain done on 03/31/2022 is also reviewed during interpretation of the current study. FINDINGS: (Slice numbers described in this report are numbered superior to inferior with slice #1 in the head). NECK AND VISUALIZED HEAD: No FDG avid focal disease, unchanged. THORAX: Postsurgical changes of right upper lobar lung lobectomy and partial resection of the left upper lobe appear unchanged. Previously documented somewhat linear as well as nodular patchy airspace disease involving the right lower lobe and to a lesser extent right middle lobe associated with mild peribronchial thickening appears stable, shows no significant FDG avidity, unchanged since most recent prior study dated 03/24/2022. No FDG avid mediastinal and/or hilar lymphadenopathy. Persistent stable bilateral non-FDG avid pleural effusion and/or thickening appears stable since the prior study dated 03/24/2022. ABDOMEN AND PELVIS: Persistent stable non-FDG avid hypodense right adrenal nodule with SUV max of -9.1 (134/267). No FDG avid liver or adrenal or splenic disease. The pancreas, gallbladder, biliary tree appear unremarkable. Both kidneys are unremarkable. MUSCULOSKELETAL: No suspicious FDG avid osseous disease, unchanged. Stable postsurgical changes at lower cervical spine and moderate compression deformity of T5, T6 and L3 vertebral bodies without FDG avidity, appear unchanged. VASCULAR: Calcific atherosclerotic disease of the aorta and its branches without aneurysm formation. SUV max OF MEDIASTINAL BLOOD POOL: 3.2 SUV max OF LIVER: 4.0 PET/PET CT fusion skull to thigh IMPRESSION: 1. No significant change since most recent prior PET CT study done on 03/24/2022. Specifically, previously documented nonspecific linear as well as nodular lung parenchymal abnormalities involving the right middle and right lower lobe associated with peribronchiolar thickening without any significant FDG avidity appear stable. 2. No new abnormalities.
== END 2022-07-21 10:14 | disposition home or self-care (01) ==
LOC: HO.PET 10:13
PROVIDERS: PCP Pediatrics; Visit Provider Internal Medicine
DX: Z13.89 Encounter for screening for other disorder (principal)

== ENCOUNTER 2023-02-16 12:59 | Outpatient (REF) | payer MEDICAID, SELFPAY ==
--- NOTE | ~2023-02-16 | CT_ITS ---
EXAMINATION: CT head/brain wo IV con CLINICAL INFORMATION: Reason for Exam headaches COMPARISON: MRI of the brain with and without contrast 03/31/2022, CT head without contrast 01/07/2022 TECHNIQUE: Contiguous axial imaging was performed from the skull base to vertex without intravenous contrast. Sagittal and coronal reformatted images were obtained. This CT examination was performed using dose optimization techniques as appropriate, variously including the following: * Automated exposure control * Adjustment of mA and/or kV according to patient size (this includes techniques or standardized protocols for targeted exams where dose is matched to indication/reason for exam; i.e. extremities or head) Use of iterative reconstruction technique DLP: 790.44 mGy-cm FINDINGS: No acute osseous or soft tissue abnormality. The mastoid air cells and visualized portions of the paranasal sinuses are well aerated. There is no evidence of acute intracranial hemorrhage or territorial infarction. No abnormal mass effect or midline shift is seen. Gonzales to white matter differentiation is well preserved. No extra-axial fluid collections are identified. No hydrocephalus. No significant volume loss. There is no abnormal attenuation within the brain parenchyma. CT/CT head/brain wo IV con IMPRESSION: No acute intracranial abnormality including hemorrhage, mass effect, hydrocephalus, or acute territorial edematous infarction. Please note that findings concerning for small metastatic parenchymal disease on MRI from 03/31/2022 are not well assessed or appreciated on CT.
== END 2023-02-16 13:00 | disposition home or self-care (01) ==
LOC: HO.CT 12:59
PROVIDERS: PCP Pediatrics; Visit Provider Internal Medicine
DX: R51.9 Headache, unspecified (principal)
CPT/HCPCS: 70450

== ENCOUNTER 2023-06-22 12:36 | Outpatient (AMB) | payer MEDICAID, SELFPAY ==
[2023-06-22 13:08] VITALS: BP 122/84; PULSE 72; O2SAT 95; BMI 31.6
--- NOTE | 2023-06-22 13:08 | A.OFFVIS_ITS ---
Intake Vital Signs 06/22/23 13:08 Height 5 ft 7 in Weight 201 lb 11.567 oz BMI 31.6 BP 122/84 Blood Pressure Location Rt brachial Position Sitting Pulse 72 Pulse Source Doppler Pulse Oximetry (%) 95 Oxygen Delivery Method Nasal Cannula Oxygen Flow Rate 3 Intake Visit Reasons: COPD Allergies lisinopril [LISINOPRIL] Allergy (Severe, Verified 06/22/23 13:13) SWELLING- ANGIOEDEMA codeine [CODEINE] Allergy (Intermediate, Verified 06/22/23 13:13) VOMITING/HIVES, vomiting, hives HPI COPD HPI Details 62-year-old lady, recent 40+ pack-year s elvin, with underlying history of breast cancer status post lumpectomy approximately 10-15 years prior at [facility], underlying recurrent lung cancer now under oncology care on Keytruda, followed for COPD now supplemental oxygen dependent. Patient has been using Anoro, duo nebs, and albuterol MDI with slowly worsening control of his symptoms. She has had a recent exacerbation treated by her primary care provider with a course of antibiotics and she is improving to her baseline. [facility] Medical History Bilateral lung cancer Cancer of upper lobe of left lung (~2020) Cancer of upper lobe of right lung (~2019) COPD (chronic obstructive pulmonary disease) Depression GERD (gastroesophageal reflux disease) History of breast cancer (~2006) History of hepatitis C HTN (hypertension) Internal and external bleeding hemorrhoids New onset a-fib Obesity Pancytopenia Pulmonary nodules Smoker Tubular adenoma of colon Surgical History History of anterior colporrhaphy (~2016) History of back surgery (~2011) History of colonoscopy (~2014) History of hemorrhoidectomy (~2019) History of lobectomy of lung (~2019) History of lumpectomy of right breast (~2006) History of lung surgery (~2020) History of tubal ligation Family History Mother History of lung cancer Brother History of lung cancer Maternal Grandmother Breast cancer in female Maternal Aunt Breast cancer in female Daughter Thyroid cancer Social History Household Members: Spouse Housing: Apartment Are you a primary team primary care physician to a significant other at home: No Do you presently have visiting nurse or other home services: No Unable to assess alcohol history related to: Unable to respond Alcohol intake: never Patient Tobacco Use Status: Never used Tobacco Tobacco use type: Cigar Years Smoked: 46 Second Hand Smoke Exposure: No Substance Use Type: Marijuana service: No Current occupational status: disabled Current occupational exposures/hazards: No Review of Systems Const Denies daytime sleepiness, Denies excessive sweating, Denies fatigue, Denies fever(s), Denies lethargy, Denies malaise, Denies night sweats, Denies snoring and Denies weight loss Eyes Denies blurry vision and Denies itchy eyes ENT Denies nasal congestion, Denies post nasal drip, Denies sinus pain, Denies sinus pressure and Denies other ( Thrush) Card Denies chest pain, Denies pedal edema, Denies dyspnea, Reports dyspnea on exertion, Denies orthopnea and Denies paroxysmal nocturnal dyspnea Resp Reports cough, Denies hemoptysis, Denies excessive phlegm production, Denies dyspnea, Reports dyspnea on exertion, Denies snoring and Denies wheezing GI Denies abdominal pain and Denies heartburn Musc Denies myalgias, Denies arthralgias and Denies joint swelling Skin/Breast Denies rash Neuro Denies memory loss and Denies seizure-like activity Psych Denies abnormal sleep pattern, Denies anxiety and Denies memory loss Endo Denies excessive sweating, Denies fatigue and Denies heat intolerance Dandy/Lymph Denies easy bruising Aller/Immun Denies itchy eyes, Denies seasonal rhinorrhea and Denies wheezing Physical Exam Vital Signs: Last Vital Signs Pulse 72 06/22/23 13:08 BP 122/84 06/22/23 13:08 Pulse Ox 95 06/22/23 13:08 Oxygen Delivery Method Nasal Cannula 06/22/23 13:08 Oxygen Flow Rate 3 06/22/23 13:08 BMI result Body Mass Index 31.6 Const General: no acute distress and alert Nutritional Appearance: not obese Orientation/consciousness: Other orientation findings ( oriented) HEENT Head: Yes atraumatic Eyes General: appearance normal, both eyes and all related structures Sclerae: sclerae normal EOM: EOMs intact bilaterally Neck Neck: Yes supple Lymphatic: no lymphadenopathy noted Resp Effort & Inspection: normal respiratory effort and no use of accessory muscles Auscultation: clear to auscultation bilaterally Cardio Rate: regular rate Rhythm: regular rhythm Heart sounds: no gallops, no murmurs and no rubs Skin General skin exam: other ( warm) Extrem General: No clubbing, No cyanosis and No edema Office Procedures 6 Minute Walk Time:: 13:30 SPO2 % at rest: 95 Pulse at rest: 78 SPO2 % during excercise: 88 Pulse during excercise: 91 SPO2 % after excercise: 94 Pulse after excercise: 84 Distance in yards walked: 160 Sary Score: 5 Performance Observations:: Elida walked on level ground without assistance, she walked on room air for 25 yards before her SPO2 decreased to 88%. O2 started at 2 lpm and with a brief rest her SPO2 recovered to 94%. She walked another 25 yards and her SPO2 dropped to 88%, SPO2 recovered on 3 lpm to 94%. [id number] - 6 Minute Walk Assessment & Plan Assessment & Plan (1) COPD with acute exacerbation: Code(s): J44.1 - Chronic obstructive pulmonary disease with (acute) exacerbation Plan: Suboptimally controlled on Anoro, duo nebs, and albuterol MDI. Will add theophylline. (2) Supplemental oxygen dependent: Code(s): Z99.81 - Dependence on supplemental oxygen Plan: 6 minute walk test/supplemental oxygen evaluation performed patient requires 3 L continuous flow with exertion to maintain normal oximetry. Updated order placed with Claudy (3) Bilateral lung cancer: Comment: (RUL lobectomy 07/2019 & LITA wedge 01/2021) Code(s): C34.91 - Malignant neoplasm of unspecified part of right bronchus or lung; C34.92 - Malignant neoplasm of unspecified part of left bronchus or lung Plan: Under oncology care on Keytruda. Orders: Orders AMB 6 minute walk Today J44.9 - Chronic obstructive pulmonary disease, unspecified Medications: New theophylline ER 400 mg PO DAILY 30 tabs 6RF 30 days Changed From umeclidinium-vilanterol 62.5-25 mcg/actuation (Anoro Ellipta) 1 puff inhalation DAILY To umeclidinium-vilanterol 62.5-25 mcg/actuation (Anoro Ellipta) 1 ea inhalation DAILY 1 ea 6RF 30 days From ipratropium-albuterol 0.5 mg-3 mg(2.5 mg base)/3 mL 3 mL inhalation Q6-8H PRN Shortness Of Breath Or Wheezing To ipratropium-albuterol 0.5 mg-3 mg(2.5 mg base)/3 mL 3 mL inhalation Q6-8H PRN 270 mL 6RF Shortness Of Breath Or Wheezing 30 days Coding Level of Care Code Est Pt Level 4 (02496) Diagnoses COPD with acute exacerbation J44.1 Supplemental oxygen dependent Z99.81 Bilateral lung cancer C34.91; C34.92 CPT Codes Coding ([id number])
[2023-06-22 14:00] VITALS: PULSE 78; O2SAT 95
== END 2023-06-22 13:46 | disposition home or self-care (01) ==
PROVIDERS: PCP Pediatrics; Referring Provider Pediatrics; Visit Provider Internal Medicine Pulmonary Disease
DX: J44.1 Chronic obstructive pulmonary disease with (acute) exacerbation (principal); Z99.81 Dependence on supplemental oxygen; C34.91 Malignant neoplasm of unspecified part of right bronchus or lung; C34.92 Malignant neoplasm of unspecified part of left bronchus or lung
CPT/HCPCS: 94618; 99214

== ENCOUNTER → 2023-06-22 12:36 | Outpatient (BNVA) | payer MEDICAID, SELFPAY | PROVIDERS: PCP Pediatrics; Visit Provider Internal Medicine Pulmonary Disease | DX: J44.1 Chronic obstructive pulmonary disease with (acute) exacerbation (principal); C34.91 Malignant neoplasm of unspecified part of right bronchus or lung; C34.92 Malignant neoplasm of unspecified part of left bronchus or lung; Z99.81 Dependence on supplemental oxygen | CPT/HCPCS: 94618; 99212 ==

== ENCOUNTER 2023-07-09 12:34 | Inpatient (IN) | payer MEDICAID, SELFPAY ==
[2023-07-09] VITALS (7 sets, daily range): BP systolic 118–144; BP diastolic 76–101; PULSE 73–128; RESP 16–26; TEMP 36.8–36.9; O2SAT 95–98; BMI 30.6
--- NOTE | ~2023-07-09 | XR_ITS ---
EXAMINATION: XR CHEST CLINICAL INFORMATION: Status post left thoracentesis COMPARISON: Chest radiograph from 07/09/2023 TECHNIQUE: Frontal view of the chest was obtained. FINDINGS: Slight decrease in size of left-sided moderate pleural effusion with subjacent atelectasis. Small right pleural effusion with subjacent atelectasis. No pneumothorax. Trachea is midline. Cardiac mediastinal silhouette is stable. Lower cervical spinal hardware. Soft tissues are unremarkable. XR/XR chest 1V IMPRESSION: 1. Slight decrease in size of left-sided moderate pleural effusion with subjacent atelectasis. 2. Small right pleural effusion with subjacent atelectasis.
--- NOTE | ~2023-07-09 | US_ITS ---
PROCEDURE: Ultrasound-guided left thoracentesis HISTORY: Left pleural effusion, drainage, therapeutic and diagnostic. SPECIMEN: A sample of pleural fluid was sent for analysis ACCESS: 5 Ni[place] Yueh catheter MEDICATIONS: 10 mL 1% lidocaine TECHNIQUE/FINDINGS Appropriate preprocedural clinical history and imaging studies were reviewed. The patient was brought to the department and placed in the seated position. Ultrasound images of the left thorax were obtained to localize a moderate pleural effusion. Permanent ultrasound images were saved. Risks and benefits and possible complications were discussed with the patient and consent form was signed. An area of the patient's left back was prepped and draped in usual sterile fashion. 10 mL of 1% lidocaine was used to obtain local anesthesia of the skin and deeper tissues. A standard small bore needle was introduced to sample pleural fluid and demonstrate a safe access route. A 5 Ni[place] Yueh catheter was then used to access the pleural cavity. 1000 ml of non-clotting, blood tinged fluid was removed passively. The catheter was then removed. A dressing was applied. A postprocedure chest x-ray will be performed and will be dictated separately. There were no immediate complications. Postprocedure x-ray demonstrates no evidence of left pneumothorax. The procedure was performed by Kalen Smallwood PA-C and supervised by Dr. Orellana US/US thoracentesis IMPRESSION: Successful Ultrasound-guided left thoracentesis. No postprocedural pneumothorax.
--- NOTE | ~2023-07-09 | XR_ITS ---
EXAMINATION: XR CHEST CLINICAL INFORMATION: Shortness of breath COMPARISON: Previous chest x-ray March 2022 TECHNIQUE: Frontal view of the chest was obtained. FINDINGS: The cardiac and mediastinal contours are stable. There are postsurgical changes to the left lung with surgical staple line. There is a moderate left pleural effusion new or increased from prior exam. There is adjacent atelectasis or consolidation at the left lung base. Right lung is clear. There is blunting of the right lateral costophrenic angle suggestive of mild right pleural thickening or small pleural effusion similar to prior chest x-ray. No pneumothorax. Postoperative changes to the cervical spine. Mid thoracic spine compression fracture. XR/XR chest 1V IMPRESSION: Moderate left pleural effusion and adjacent atelectasis or consolidation at the left lung base. Chronic small right pleural effusion or pleural thickening similar to previous exam.
--- NOTE | ~2023-07-09 | CT_ITS ---
EXAMINATION: CT ANGIOGRAM OF THE CHEST WITH AND WITHOUT CONTRAST (CT PULMONARY ANGIOGRAM FOR PE) CLINICAL INFORMATION: Reason for Exam SOb, known lung ca COMPARISON: Radius chest x-ray from earlier the same day and chest CTA February 2022 TECHNIQUE: Prior to contrast administration, noncontrast localization images were obtained. Subsequently, multidetector volumetric imaging was performed from the thoracic inlet to below the diaphragms following the administration of 65 mL Omnipaque 350 intravenous contrast. No contrast reaction reported Sagittal, coronal, and MIP oblique sagittal reformatted images were obtained on the CT workstation, uploaded to PACS, and reviewed. This CT examination was performed using dose optimization techniques as appropriate, variously including the following: *Automated exposure control *Adjustment of mA and/or kV according to patient size (this includes techniques or standardized protocols for targeted exams where dose is matched to indication/reason for exam; i.e. extremities or head) *Use of iterative reconstruction technique Total exam dose-length product 388 mGy-cm FINDINGS: QUALITY OF STUDY/CONTRAST BOLUS: Satisfactory. PULMONARY ARTERIES: No pulmonary emboli. THORACIC AORTA: No aneurysm. LUNG: Severe emphysema. Postsurgical changes from right upper lobe lobectomy Postsurgical changes following partial left upper lobe lobectomy. New compressive atelectasis and consolidation of the left lower lobe adjacent to the effusion. Focal cystic change or bronchiectasis in the right middle lobe adjacent to surgical staple line, stable. Stable 0.7 x 2.6 cm partially calcified linear density at the right lung base in the right lower lobe probably representing chronic scarring or subsegmental atelectasis. Similar-appearing small semisolid peripheral nodular opacities in the posterior medial right lower lobe. PLEURA: New large left pleural effusion. Stable small right pleural effusion or pleural thickening. MEDIASTINUM: Normal heart size. No pericardial effusion. No hilar or mediastinal lymphadenopathy. No evidence of septal bowing or right heart strain. CORONARY ARTERY CALCIFICATION: Mild to moderate CHEST WALL/AXILLA: No axillary or internal mammary lymphadenopathy. OSSEOUS STRUCTURES: Severe degenerative disc disease at T6-7. Old compression fractures of the left inferior T6 and right superior T7 vertebral bodies unchanged. There is increased adjacent endplate sclerosis. There is a subchondral lucency in the left inferior T6 vertebral body. These findings are similar to previous exam. There are innumerable small sclerotic lesions in the thoracic and visualized upper lumbar spine that appears stable. There are postsurgical changes to the lower cervical spine. Old left lateral eighth rib fracture unchanged. UPPER ABDOMEN: Stable low-attenuation small right adrenal nodule suggestive of a benign adenoma. No reflux of contrast into the hepatic veins to suggest elevated right heart pressures. CT/CT angio chest PE protocol IMPRESSION: No evidence of pulmonary embolism. New large left pleural effusion and adjacent compressive atelectasis/consolidation of the left lower lobe. Pulmonary findings and postsurgical changes are otherwise stable. Stable bone findings. VTE: negative
--- NOTE | 2023-07-09 12:43 | ECG_ITS ---
Test Reason : SOB Blood Pressure : / mmHG Vent. Rate : 111 BPM Atrial Rate : 000 BPM P-R Int : 000 ms QRS Dur : 078 ms QT Int : 330 ms P-R-T Axes : 000 041 037 degrees QTc Int : 448 ms Atrial fibrillation with rapid ventricular response Low voltage QRS Abnormal ECG When compared with ECG of 09-JUL-2023 11:45, No significant change was found Referred By: Liliana Blue Electronically Signed By:Rc Roberts
--- NOTE | 2023-07-09 12:53 | ED_ITS ---
HPI - SOB/Dyspnea General Chief Complaint: Dyspnea Stated Complaint: New Onset Afib Time Seen by Provider: 07/09/23 12:43 Source: patient Mode of arrival: ambulatory History of Present Illness HPI Narrative: 62-year-old female with known atrial fibrillation since 01/2022, metastatic lung CA and quit smoking last week, currently undergoing palliative immunotherapy is sent in to the emergency room with [facility] onset [facility], however on further discussion with the patient she states she has not taken her atrial fibrillation medication in 2 weeks due to [facility] issues, states that the prescription was recently filled and she did not take the medicine this morning. Patient also has known COPD and is oxygen dependent. Related Data Home Medications Medication Instructions Recorded Confirmed buprenorphine 4 mg-naloxone 1 mg 1 strip sublingual DAILY 01/18/22 07/09/23 sublingual film (Suboxone) metoprolol tartrate 50 1 tab PO DAILY 01/18/22 07/09/23 mg-hydrochlorothiazide 25 mg tablet milnacipran 50 mg tablet (Savella) 50 mg PO BID 01/18/22 07/09/23 omeprazole 20 mg capsule,delayed 20 mg PO DAILY@0630 01/18/22 07/09/23 release paroxetine HCl 20 mg tablet 60 mg PO DAILY 01/18/22 07/09/23 cholecalciferol (vitamin D3) 50 50 mcg PO DAILY 02/17/22 07/09/23 mcg (2,000 unit) tablet (Vitamin D3) simvastatin 20 mg tablet 20 mg PO DAILY 02/17/22 07/09/23 diltiazem HCl 180 mg 180 mg PO DAILY 03/26/23 07/09/23 capsule,extended release 24 hr, controlled albuterol sulfate 90 mcg/actuation 2 puff inhalation Q6H PRN sob 06/22/23 07/09/23 aerosol inhaler (Ventolin HFA) Previous Rx's Medication Instructions Recorded Mag&Al/Sim/Diphenhyd/Lidocaine 10 ml PO Q4H PRN sore throat #300 01/30/22 [Magic Mouthwash] mL folic acid 1 mg tablet 1 mg PO DAILY #90 tabs 10/19/22 ipratropium 0.5 mg-albuterol 3 mg 3 ml inhalation Q6-8H PRN 06/22/23 (2.5 mg base)/3 mL nebulization Shortness Of Breath Or Wheezing 30 soln days #270 mL theophylline 400 mg 400 mg PO DAILY 30 days #30 tabs 06/22/23 tablet,extended release 24 hr umeclidinium 62.5 mcg-vilanterol 1 ea inhalation DAILY 30 days #1 ea 06/22/23 25 mcg/actuation powdr for inhalation (Anoro Ellipta) potassium chloride 20 mEq 20 meq PO DAILY #30 tabs 06/23/23 tablet,extended release (K-Tab) Allergies Allergy/AdvReac Type Severity Reaction Status Date / Time lisinopril [LISINOPRIL] Allergy Severe SWELLING- Verified 06/22/23 13:13 ANGIOEDEMA codeine [CODEINE] Allergy Intermediate VOMITING/HIVES, Verified 06/22/23 13:13 vomiting, hives Review of Systems 2 Review of Systems: Pertinent positives and negatives as stated in HPI [facility] Past Medical History Source: nursing notes reviewed Medical History Pancytopenia New onset a-fib Cancer of upper lobe of left lung (~2020) Bilateral lung cancer Obesity History of hepatitis C Smoker Tubular adenoma of colon Pulmonary nodules History of breast cancer (~2006) Internal and external bleeding hemorrhoids Cancer of upper lobe of right lung (~2019) GERD (gastroesophageal reflux disease) Depression COPD (chronic obstructive pulmonary disease) HTN (hypertension) Surgical History History of lung surgery (~2020) History of anterior colporrhaphy (~2016) History of tubal ligation History of lumpectomy of right breast (~2006) History of colonoscopy (~2014) History of hemorrhoidectomy (~2019) History of back surgery (~2011) History of lobectomy of lung (~2019) Family History Family History Mother History of lung cancer Brother History of lung cancer Maternal Grandmother Breast cancer in female Maternal Aunt Breast cancer in female Daughter Thyroid cancer Social History Social History Household Members: Spouse Housing: Apartment Are you a primary residential care facility manager to a significant other at home: No Do you presently have visiting nurse or other home services: No Unable to assess alcohol history related to: Unable to respond Alcohol intake: never Patient Tobacco Use Status: Never used Tobacco Tobacco use type: Cigar Years Smoked: 46 Smoked in Last 30 Days: Yes Second Hand Smoke Exposure: No Use of substances other than those prescribed or required for medical reasons: Yes Substance Use Type: Marijuana Advance Directives: Yes Advance Directives Information Provided: Yes Advance Directives on File: Yes Advance Directives Date on File: 02/02/22 service: No Current occupational status: disabled Current occupational exposures/hazards: No Physical Exam 2 Vital Signs: Vital Signs: Last Vital Signs Temp 98.3 F 07/09/23 16:32 Pulse 92 07/09/23 16:34 Resp 18 07/09/23 16:34 BP 124/84 07/09/23 16:34 Pulse Ox 97 07/09/23 16:34 O2 Del Method Nasal Cannula 07/09/23 16:34 O2 Flow Rate 2 07/09/23 16:34 Oxygen Flow Rate 2 07/09/23 12:47 BMI result Body Mass Index 30.6 VITAL SIGNS: Reviewed. GENERAL: Well developed, well nourished, in no acute distress. HEAD: Normocephalic/atraumatic EYES: PERRLA, EOMI EARS: Ext canals without abnormality NOSE: Nares patent bilateral OROPHARYNX: no oral lesions noted, posterior pharynx clear NECK: Supple, no adenopathy LUNGS: Good inspiratory effort, decreased breath sounds with expiratory wheeze, dyspnea on exertion observed SpO2<96> on 3 L nasal cannula from home CARDIOVASCULAR: Regular rate and rhythm without noted murmurs, no JVD or lower extremity edema. ABDOMEN: Soft, non-tender, non-distended with bowel sounds. MUSCULOSKELETAL: No tenderness, deformities, or effusions noted on gross inspection. EXTREMITIES: No cyanosis, clubbing or edema. SKIN: Inspection of the skin reveals no rashes NEUROLOGIC: Alert and oriented x 4. Strength and sensation to light touch were grossly intact x 4. Medications Administered Discontinued Medications Generic Name Dose Route Start Last Admin Trade Name Freq PRN Reason Stop Dose Admin Diltiazem HCl 180 mg 07/09/23 12:55 07/09/23 13:27 Diltiazem Hcl Sr 90 Mg Cap.Er.12h PO 07/09/23 12:56 180 mg ONCE ONE Administration Protocol Furosemide 20 mg 07/09/23 15:53 07/09/23 16:26 Furosemide 20 Mg/2 Ml Vial IVPUSH 07/09/23 15:54 20 mg ONCE ONE Administration Protocol Iohexol 100 ml 07/09/23 14:09 07/09/23 14:10 Iohexol 350 Mg/Ml 100 Ml Infus..Btl IV 07/09/23 14:10 65 ml ONCE ONE Administration Lidocaine HCl 5 ml 07/09/23 16:22 07/09/23 16:22 Lidocaine Hcl 1 % Mpf 5 Ml Vial SUBCUT 07/09/23 16:23 5 ml ONCE ONE Administration Metoprolol Tartrate 5 mg 07/09/23 16:03 07/09/23 16:30 Metoprolol Tartrate 5 Mg/5 Ml Vial IVPUSH 07/09/23 16:04 5 mg ONCE ONE Administration Medical Decision Making Medical Decision Making MDM Narrative: 62-year-old female with history and clinical presentation, DDX: PE, poorly- controlled known atrial fibrillation without anticoagulation, chronic lung disease, viral illness, CHF. Patient provided just once again patient provided with home diltiazem dose and will proceed with ruling out PE. Patient has known atrial fibrillation, anticoagulation was not initiated due to patient being pancytopenic and platelet counts of 32,000(cardiology note from 01/2022) and recommendation at that time was for initiation of anticoagulation as long as platelet count recovered. I reviewed all investigations and hematologic indices are negative for leukocytosis, there is a stable chronic normocytic anemia, no thrombocytopenia. This prompts a question of whether not to initiate chronic anticoagulation at this time. Coagulation studies within normal limits. VBG is negative for evidence of respiratory acidosis and only a slight hypercapnia and I do not think that COPD/chronic lung disease is the etiology for patient's shortness of breath. Chemistry indices demonstrates a mild VIKTORIYA is likely secondary to poor p.o. intake, there are no electrolyte derangements and there is elevation of BNP which could be a contributing factor to patient's shortness of breath and patient will receive 20 mg of Lasix, patient also received prescribed dose of calcium channel kath as the uncontrolled heart rate likely contributed to the mild CHF exacerbation. Patient is not hypoxic unless exertion. I suspect that the increase in troponin levels are due to increased demand and work as patient has had uncontrolled atrial fibrillation due to poor medication compliance in addition to chest x-ray being significant for left pleural effusion. However, will repeat troponin level. CT angio to rule out possibility of PE is negative for VTE, however corroborates chest x-ray findings of left pleural effusion, radiology department was able to successfully remove 800 cc of effusion which they report as being bloody in nature and will send for fluids studies though suspect secondary to patient's known underlying malignancy. 1634: I discussed with inpatient hospitalist who accepts admission. Differential Diagnosis Differential Diagnoses: The differential diagnosis associated with the presentation includes Please see the discussion above Admission/Observation Consideration of admission/observation: Escalation of care including admission/observation considered Please see the discussion above Consult Healthcare Provider Management of the patient was discussed with: Hospitalist Please see the discussion above Lab Data MDM Lab Attestation statement: I reviewed the patient's lab results. Please see the discussion above 07/09/23 13:35 07/09/23 13:35 Labs: Lab Results 07/09/23 07/09/23 Range/Units 13:35 13:41 WBC 6.9 (4.8-10.8) X10*3/uL RBC 3.50 L (4.20-5.50) X10*6/uL Hgb 10.8 L (12.0-16.0) g/dl Hct 32.3 L (37.0-47.0) % MCV 92.3 (80.0-98.0) fL MCH 30.9 (27.0-33.0) pg MCHC 33.4 (31.0-35.0) g/dl RDW 14.1 (11.0-16.0) % Plt Count 178 (160-400) X10*3/uL MPV 9.1 L (9.4-12.3) fL Immature Gran % (Auto) 0.4 (0.0-0.4) % Neut % (Auto) 76.1 H (45-73) % Lymph % (Auto) 10.4 L (20-40) % [place] % (Auto) 9.7 (2-11) % Eos % (Auto) 2.5 (0-4) % Baso % (Auto) 0.9 (0-2) % Lymph # (Auto) 0.7 L (1.2-4.9) X10*3/uL [place] # (Auto) 0.7 (0.1-1.2) X10*3/uL Eos # (Auto) 0.2 (0.0-0.4) X10*3/uL Baso # (Auto) 0.1 (0.0-0.2) X10*3/uL Abs Immat Gran (auto) 0.03 (0.00-0.03) X10*3/uL Absolute Neuts (auto) 5.3 (2.0-8.3) x10*3/uL Absolute Nucleated RBC 0.000 (0.0-0.012) X10*3/uL Nucleated RBC % (auto) 0.0 (0.0-0.2) /100WBC PT 13.0 (11.1-13.3) SEC INR 1.1 (0.9-1.1) VBG pH 7.38 (7.32-7.43) VBG pCO2 48 mmHg VBG pO2 53 mmHg VBG HCO3 29 H (22-26) mmol/L VBG O2 Saturation 82.0 % VBG Base Excess 3.6 mmol/L Sodium 140 (135-145) mmol/L Potassium 3.4 (3.3-5.1) mmol/L Chloride 103 (96-108) mmol/L Carbon Dioxide 28 (22-29) mmol/L Anion Gap 12 (12-20) BUN 16 (9-16) mg/dL Creatinine 1.42 H (0.5-1.4) mg/dL Estim Creat Clear Calc 48.5 Estimated GFR 37 Random Glucose 118 H (60-115) mg/dL Calcium 9.7 (8.4-10.2) mg/dL Total Bilirubin 0.4 (0.0-1.0) mg/dL AST 14 (5-31) U/L ALT 10 (0-31) U/L Alkaline Phosphatase 66 (39-117) U/L Troponin I High Sens 158.8 H* D (<3.5-17.0) ng/L B-Natriuretic Peptide 266 H (<100) pg/mL Total Protein 7.7 (6.5-8.0) g/dL Albumin 4.1 (3.5-5.0) g/dL Independent Interpretation I performed an independent interpretation of an: EKG Interpretation: Atrial fibrillation with RVR, HR-111, no STEMI, QRS/QTC is within normal limits. Radiology Impression Discussion of test interpretation with radiology: I have reviewed the radiologist's reading. Radiologist Impression: Please see the discussion above External Record Review External record reviewed: Office record, Outpatient record, Prior outpatient labs and Prior outpatient radiology Chronic Conditions Atrial fibrillation, metastatic lung CA Critical Care Time Critical Care Time Critical Care Time: Yes Total Critical Care Time: 90 Attestation: I personally attest to this time spent taking care of the patient. Discharge Plan Discharge Clinical Impression: NEELY (dyspnea on exertion), CHF exacerbation, VIKTORIYA (acute kidney injury), Atrial fibrillation with RVR, Pleural effusion, left Patient Disposition: Admitted As Inpatient
--- NOTE | 2023-07-09 12:56 | PC.NURSE ---
Pt presents to ED from [facility] for SOB X1 week. Per surgical services tech, pt has right sided lung cancer, with lobe resection in 2020. Cancer has returned this year and pt is undergoing treatment. Pt also has hx of COPD with home O2 2L NC at baseline. Pt reports she quit smoking cigarettes 1 week ago and that is when the increased SOB started, pt also reports palpitations and feeling jittery . Pt reports she has not taken her metoprolol for a couple weeks due to not being able to get it filled. surgical services tech placed 22G in right AC and administered approx 150mL NS prior to arrival to ED. Pt is alert and oriented, breathing is mostly unlabored but does become elevated with any exertion or long periods of talking. SPO2 on her baseline 2L O2 is 95-98%. Pt placed on monitor technician bedside, afib noted between 100-140. Pt denies any pain, CP, N/V/D, fevers.
--- OUTSIDE RECORDS SUMMARY | 2023-07-09 13:19 | XMS_ITS | Continuity of Care Document ---
Author Name Unknown Organization [facility] ter Address [address] [place] [id number] Care Team Providers Care Enrobing Machine Feeder Name Role Phone Daphne Rodriguez MD Primary Care Phys[place] [facility] [place] 01/31/[address] [id number] Attending Physician: Daphne Rodriguez MD Admitting Physician: Daphne Rodriguez MD Referring Physician: Daphne Rodriguez MD Allergies, Adverse Reactions, Alerts Substance Reaction Severity Status codeine N/V Active lisinopril 1 tongue swelling Persistent Severe Active 1angioedema Immunizations Not Given Vaccine Date Status Refusal Reason pneumococcal 23-valent vaccine 02/05/17 Not Given Patient Refuses Medications amLODIPine 10 mg oral tablet 10 mg, 1, tablet, By Mouth, Daily, in am, Refills 0, Maintenance, 08/16/18 12:14:55 EDT Start Date: 08/16/18 Status: Ordered aspirin 81 mg oral tablet 1 tablet = 81 mg, By Mouth, Daily in AM, # 30 tablet, 0 Refills, Maintenance, 01/11/18 13:49:26 EDT, Tablet Start Date: 01/11/18 Status: Ordered betamethasone topical dipropionate 0.05% cream 1 application, Topically, Daily, apply to affected area as directed, # 15 Gm, 1 Refills, Maintenance, 01/30/21 12:50:00 EDT, Cream, [id number], 1 application Topically Daily,Instr:apply to affected area as directed, 172, cm, 01/29/20 15:11:00... Start Date: 01/30/21 Status: Ordered cloNIDine 0.1 mg oral tablet 0.1 mg, 1, tablet, By Mouth, 2 times a day, PRN, # 60 tablet, Refills 0, Maintenance, Anxiety, 01/11/18 13:49:01 EDT Start Date: 01/11/18 Status: Ordered hydrochlorothiazide 50 mg oral tablet 50 mg, By Mouth, Daily, # 30 tablet, Refills 0, Tot. Refills 0, Maintenance, 02/05/17 14:15:23, Route to Pharmacy Electronically, [id number], [id number] Start Date: 02/05/17 Status: Ordered ibuprofen 600 mg oral tablet 600 mg, 1, tablet, By Mouth, Every 6 hours, # 40 tablet, Refills 0, Tot. Refills 0, Maintenance, 01/27/18 18:40:55 EDT, Print Requisition Start Date: 01/27/18 Status: Ordered ibuprofen 600 mg oral tablet 600 mg, 1, tablet, By Mouth, Every 6 hours, # 50 tablet, Refills 0, Tot. Refills 0, Maintenance, 08/29/18 10:01:21 EDT, Print Requisition Start Date: 08/29/18 Status: Ordered PARoxetine 40 mg oral tablet 40 mg, 1, tablet, By Mouth, 2 times a day, Refills 0, Maintenance, 08/16/18 12:18:22 EDT Start Date: 08/16/18 Status: Ordered Prilosec 20 mg oral enteric coated capsule 1 capsule = 20 mg, By Mouth, Daily, 0 Refills, Maintenance, 01/25/17 8:24:25 Start Date: 01/25/17 Status: Ordered ProAir HFA 90 mcg/inh inhalation aerosol with adapter 2, puffs, Inhalation, 4 times a day, PRN, Refills 0, Maintenance, 01/11/18 15:12:45 EDT Start Date: 01/11/18 Status: Ordered Savella 50 mg oral tablet 1 tablet = 50 mg, By Mouth, 2 times a day, 0 Refills, Maintenance, 06/22/16 14:55:01 Start Date: 06/22/16 Status: Ordered simvastatin 20 mg oral tablet 20 mg, 1, tablet, By Mouth, Daily at bedtime, Refills 0, Maintenance, 01/25/17 8:21:36 Start Date: 01/25/17 Status: Ordered Suboxone 8 mg-2 mg sublingual film 1 film, Sublingual, Daily, 0 Refills, Maintenance, 01/11/18 13:48:11 EDT Start Date: 01/11/18 Status: Ordered Vitamin D 2000 units Vitamin D 2000 units, 1, tablet, By Mouth, Daily at bedtime, Refills 0, Maintenance, 10/02/10 10:37:13 EDT Start Date: 10/02/10 Status: Ordered Problem List Condition Confirmation Course Effective Dates Status H ealth Status Informant Breast cancer 1 Confirmed Active ; Cannabis dependence, continuous Confirmed Active Chronic depression Confirmed Active Degeneration of cervical intervertebral disc Confirmed Active Drug interaction 2 Confirmed Active FH - Alcoholism Confirmed Active H/O: alcoholism 3 Confirmed Active Hepatitis C 4 Confirmed Active Rectocele Confirmed Active Myofascial pain syndrome Confirmed Active Not getting enough sleep Confirmed Active 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, s/p lumpectomy and radiation treatement 2history of antidepressant and opioid co-treatment, no CK available 3inpatient detox 2008 4s/p treatment Social History Social History Type Response Smoking Status Current every day rolf epstein entered on: 02/04/17 Sex Implantable Device List Procedure Provider Procedure Date Device Type Site Robotic SI Vaginal Hyst Sacrocolpopexy L Pj CATES, Ryanne Cheatham 01/27/18 Unknown Vagina Device Identifier Serial Number Lot or Batch Number Manufacturing Date Expiration Date Distinct Identification Code MRI Safety Implantable Status Assigning Authority [id number] Unknown [id number] Unknown 09/13/20 Unknown Unknown Active GS1 Patient Care team information Personnel Name: Michael CATES , Daphne Masterson Address: Address: [address] [place] [id number]
[2023-07-09] MEDS: dilTIAZem HCL SR 90 MG CAP.ER.12H 180 MG PO (13:27)
[2023-07-09 13:42] LABS: MANUAL DIFF FLAG NO
[2023-07-09 13:46] LABS: Basophils Absolute Auto 0.1 X10*3/uL (0.0-0.2); Basophils Percent Auto 0.9 % (0-2); Eosinophils Absolute Auto 0.2 X10*3/uL (0.0-0.4); Eosinophils Percent Auto 2.5 % (0-4); Hematocrit 32.3 % (37.0-47.0); Hemoglobin 10.8 g/dl (12.0-16.0); Imm Gran Abs Auto 0.03 X10*3/uL (0.00-0.03); Imm Gran Pct Auto 0.4 % (0.0-0.4); Lymphocytes Absolute Auto 0.7 X10*3/uL (1.2-4.9); Lymphocytes Percent Auto 10.4 % (20-40); Mean Corpuscular HGB Conc 33.4 g/dl (31.0-35.0); Mean Corpuscular Hemoglobin 30.9 pg (27.0-33.0); Mean Corpuscular Volume 92.3 fL (80.0-98.0); Mean Platelet Volume 9.1 fL (9.4-12.3); Monocytes Absolute Auto 0.7 X10*3/uL (0.1-1.2); Monocytes Percent Auto 9.7 % (2-11); Neutrophils Absolute Auto 5.3 x10*3/uL (2.0-8.3); Neutrophils Percent Auto 76.1 % (45-73); Platelet Count 178 X10*3/uL (160-400); Red Cell Distribution Width 14.1 % (11.0-16.0); White Blood Count 6.9 X10*3/uL (4.8-10.8)
[2023-07-09 13:48] LABS: VBG Base Excess 3.6 mmol/L; VBG HCO3 29 mmol/L (22-26); VBG pCO2 48 mmHg; VBG pH 7.38 (7.32-7.43); VBG pO2 53 mmHg
[2023-07-09 13:49] LABS: Venous Blood Gas Refer to POC result
[2023-07-09 13:49] LABS: INTERNATIONAL NORM RATIO 1.1 (0.9-1.1)
[2023-07-09] MEDS: iohexoL 350 MG/ML 100 ML INFUS..BTL IV (14:10)
[2023-07-09 14:15] LABS: B Type Natriuretic Peptide 266 pg/mL (<100)
[2023-07-09 14:20] LABS: Alanine Aminotransferase 10 U/L (0-31); Albumin Level 4.1 g/dL (3.5-5.0); Alkaline Phosphatase 66 U/L (39-117); Anion Gap 12 (12-20); Aspartate Amino Transferase 14 U/L (5-31); Bilirubin Total 0.4 mg/dL (0.0-1.0); Blood Urea Nitrogen 16 mg/dL (9-16); Calcium 9.7 mg/dL (8.4-10.2); Carbon Dioxide 28 mmol/L (22-29); Chloride 103 mmol/L (96-108); Creatinine Clr Calc Pharmacy 48.5; Estimated Glomerular Filt Rate 37; Glucose Random 118 mg/dL (60-115); Potassium 3.4 mmol/L (3.3-5.1); Sodium 140 mmol/L (135-145); Total Protein 7.7 g/dL (6.5-8.0)
[2023-07-09 14:33] LABS: Troponin-I High Sensitivity 158.8 ng/L (<3.5-17.0)
--- NOTE | 2023-07-09 15:36 | PM.EVENT ---
Event Note Date of Service: 07/09/23 Event Note: Procedure Note: US left thoracentesis 1.0 L non clotting blood tinged fluid removed. No immediate complications Kalen CHINO Interventional Radiology Time Spent With Patient Time: Total time managing care of this patient today ____ minutes.
[2023-07-09] MEDS: Lidocaine HCl 1 % MPF 5 ML VIAL SUBCUT (16:22)
[2023-07-09] MEDS: Furosemide 20 MG/2 ML VIAL IVPUSH (16:26)
[2023-07-09] MEDS: Metoprolol Tartrate 5 MG/5 ML VIAL IVPUSH (16:30)
--- NOTE | 2023-07-09 16:53 | P.HPHOSP_ITS ---
History of Present Illness Date of Service: 07/09/23 Chief Complaint: Shortness of breath A 62-year-old female with a past medical history of non-small cell lung cancer status post left upper lobe and right upper lobe wedge resection, with metastases to the brain, liver, and bones, is currently undergoing palliative chemotherapy under the care of Dr. Duckworth. She also has a history of breast cancer, depression, hepatitis C, hypertension, and COPD requiring home oxygen therapy. Additionally, she has paroxysmal atrial fibrillation and is not on anticoagulation due to a history of low platelets, as well as a history of anemia and opioid dependence. She presents to the emergency department with nearly two weeks of increasing shortness of breath and intermittent palpitations. She reports discontinuing her metoprolol and diltiazem for atrial fibrillation due to insurance issues at least a week ago. In the ED, she is found to be in atrial fibrillation with rapid ventricular response. Further testing reveals a troponin I level of 158, and imaging studies demonstrate a large left pleural effusion. She undergoes interventional radiology-guided thoracentesis, during which 1 liter of blood-tinged pleural fluid is drained. Following administration of 5 mg of IV metoprolol and 180 mg of oral metoprolol, her heart rate improves to the 80s and 90s, and her shortness of breath significantly improves. She denies cough and fever. Review of Systems 2 Review of Systems: Gen: no fever Resp:+ sob, no cough CV: no chest, + NEELY, no leg edema GI: No n/v, no abd pain Neuro: No confusion Yes all other systems are reviewed and are negative [facility] Medical History Pancytopenia New onset a-fib Cancer of upper lobe of left lung (~2020) Bilateral lung cancer Obesity History of hepatitis C Smoker Tubular adenoma of colon Pulmonary nodules History of breast cancer (~2006) Internal and external bleeding hemorrhoids Cancer of upper lobe of right lung (~2019) GERD (gastroesophageal reflux disease) Depression COPD (chronic obstructive pulmonary disease) HTN (hypertension) Family History Mother History of lung cancer Brother History of lung cancer Maternal Grandmother Breast cancer in female Maternal Aunt Breast cancer in female Daughter Thyroid cancer Surgical History History of lung surgery (~2020) History of anterior colporrhaphy (~2016) History of tubal ligation History of lumpectomy of right breast (~2006) History of colonoscopy (~2014) History of hemorrhoidectomy (~2019) History of back surgery (~2011) History of lobectomy of lung (~2019) Social History Household Members: Significant Other Household Members Other:: 2 Housing: Apartment Are you a primary director of managed care to a significant other at home: No Do you presently have visiting nurse or other home services: Yes Unable to assess alcohol history related to: Unable to respond Alcohol intake: never Patient Tobacco Use Status: Former Tobacco user Quit Date: 06/30/23 Tobacco use type: Cigarette Cigarette Packs Per Day: 1 Cigarettes Per Day: 20.0 Years Smoked: 46 Smoked in Last 30 Days: Yes Patient Interested in Nicotine Replacement: Yes Patient Given Instructions on How to Stop Smoking: Yes Date Education Initiated: 07/10/23 Second Hand Smoke Exposure: Yes Use of substances other than those prescribed or required for medical reasons: Yes Substance Use Type: Marijuana Substance Use Frequency: Socially Currently Displaying Signs/Symptoms of Drug Intoxication Withdrawal: No Any prior treatment program specific to substance use: No Have you been hit, kicked, punched, or otherwise hurt by someone within the past year? If so, by whom?: No Do you feel safe in your current relationship?: Yes Is there a partner from a previous relationship who is making you feel unsafe now?: No Are you made to feel afraid or neglected: No Advance Directives: Yes Advance Directives Information Provided: Yes Advance Directives on File: Yes Advance Directives Date on File: 02/02/22 Do you have thoughts of harming others: None Do you have a plan to hurt others: No Plan Recently lost weight without trying: No How much weight loss: Not applicable Eating poorly because of decreased appetite: No Nutrition screen score: 0 Nutrition Risks: No Nutritional Risk Patient : No service: No Current occupational status: disabled Current occupational exposures/hazards: No Meds Allergies Allergy/AdvReac Type Severity Reaction Status Date / Time lisinopril [LISINOPRIL] Allergy Severe SWELLING- Verified 06/22/23 13:13 ANGIOEDEMA codeine [CODEINE] Allergy Intermediate VOMITING/HIVES, Verified 06/22/23 13:13 vomiting, hives Active Medications: Current Medications Acetaminophen (Acetaminophen 325 Mg Tablet) 650 mg PO Q6H PRN PRN Reason: Pain, Mild (Pain Scale 1-3) Docusate Sodium (Docusate Sodium 100 Mg Capsule) 100 mg PO DAILY PRN PRN Reason: Constipation Ondansetron HCl (Ondansetron Hcl 4 Mg/2 Ml Vial) 4 mg IVPUSH Q8H PRN PRN Reason: Nausea and Vomiting Sodium Chloride (0.9 % Sodium Chloride Flush 3 Ml Syringe) 3 ml IVFLUSH [facility] Home Medications Medication Instructions Recorded Confirmed Last Taken Type metoprolol tartrate 50 1 tab PO DAILY 01/18/22 07/09/23 07/09/23 History mg-hydrochlorothiazide 25 mg tablet milnacipran 50 mg tablet (Savella) 50 mg PO BID 01/18/22 07/09/23 07/09/23 History omeprazole 20 mg capsule,delayed 20 mg PO DAILY@0630 01/18/22 07/09/23 07/09/23 History release paroxetine HCl 20 mg tablet 40 mg PO BID 01/18/22 07/09/23 07/09/23 History simvastatin 20 mg tablet 20 mg PO BEDTIME 02/17/22 07/09/23 07/08/23 History diltiazem HCl 180 mg 180 mg PO DAILY 03/26/23 07/09/23 07/09/23 History capsule,extended release 24 hr, controlled albuterol sulfate 90 mcg/actuation 2 puff inhalation Q6H PRN sob 06/22/23 07/09/23 07/09/23 History aerosol inhaler (Ventolin HFA) buprenorphine 2 mg-naloxone 0.5 mg 0.5 film sublingual DAILY 07/09/23 07/09/23 07/09/23 History sublingual film (Suboxone) docusate sodium 100 mg capsule 100 mg PO BEDTIME stool softener 07/09/23 07/09/23 07/08/23 History ipratropium 0.5 mg-albuterol 3 mg 3 ml inhalation Q6H PRN Shortness 07/09/23 07/09/23 07/08/23 History (2.5 mg base)/3 mL nebulization Of Breath Or Wheezing soln umeclidinium 62.5 mcg-vilanterol 1 inh inhalation DAILY 07/09/23 07/09/23 07/09/23 History 25 mcg/actuation powdr for inhalation (Anoro Ellipta) Physical Exam 2 Vital Signs and Narrative: Vital Signs: Last Vital Signs Temp 98.3 F 07/09/23 16:32 Pulse 92 07/09/23 16:34 Resp 18 07/09/23 16:34 BP 124/84 07/09/23 16:34 Pulse Ox 97 07/09/23 16:34 O2 Del Method Nasal Cannula 07/09/23 16:34 O2 Flow Rate 2 07/09/23 16:34 Oxygen Flow Rate 2 07/09/23 12:47 BMI result Body Mass Index 30.6 Constitutional: Alert, in no distress, Mental Status: Oriented to person, place and time. Eyes: Pupils are equal, round and reactive to light. Ear, Nose and Throat: Oropharynx clear, mucous membranes moist. Ears and nose without deformities. Respiratory: Clear to auscultation. No wheezing, rales or rhonchi. Cardiovascular: S1 S2 regular. No murmurs, rubs or gallops. Gastrointestinal: Abdomen soft, non-tender, non-distended. Normal bowel sounds.? Neurologic: Cranial nerves II-XII grossly intact. No focal neurological deficits. Moves all extremities spontaneously.? Skin: No rashes or lesions.? Musculoskeletal: No cyanosis or clubbing. Psychiatric: Normal mood and affect? Results Labs 07/10/23 06:15 07/10/23 06:15 Labs: Laboratory Results - last 24 hr 07/09/23 07/09/23 13:35 13:41 MCV 92.3 MCH 30.9 MCHC 33.4 RDW 14.1 Plt Count 178 MPV 9.1 L Immature Gran % (Auto) 0.4 Neut % (Auto) 76.1 H Lymph % (Auto) 10.4 L [place] % (Auto) 9.7 Eos % (Auto) 2.5 Baso % (Auto) 0.9 Lymph # (Auto) 0.7 L [place] # (Auto) 0.7 Eos # (Auto) 0.2 Baso # (Auto) 0.1 Abs Immat Gran (auto) 0.03 Absolute Neuts (auto) 5.3 Absolute Nucleated RBC 0.000 Nucleated RBC % (auto) 0.0 PT 13.0 INR 1.1 VBG pH 7.38 VBG pCO2 48 VBG pO2 53 VBG HCO3 29 H VBG O2 Saturation 82.0 VBG Base Excess 3.6 Anion Gap 12 Estim Creat Clear Calc 48.5 Estimated GFR 37 Random Glucose 118 H Calcium 9.7 Total Bilirubin 0.4 AST 14 ALT 10 Alkaline Phosphatase 66 Troponin I High Sens 158.8 H* D B-Natriuretic Peptide 266 H Total Protein 7.7 Albumin 4.1 Imaging Radiologist's Impressions: Impressions Chest X-Ray 07/09/23 13:05 IMPRESSION: Moderate left pleural effusion and adjacent atelectasis or consolidation at the left lung base. Chronic small right pleural effusion or pleural thickening similar to previous exam. Chest CTA 07/09/23 14:12 IMPRESSION: No evidence of pulmonary embolism. New large left pleural effusion and adjacent compressive atelectasis/consolidation of the left lower lobe. Pulmonary findings and postsurgical changes are otherwise stable. Stable bone findings. VTE: negative Chest X-Ray 07/09/23 15:37 IMPRESSION: 1. Slight decrease in size of left-sided moderate pleural effusion with subjacent atelectasis. 2. Small right pleural effusion with subjacent atelectasis. Assessment and Plan (1) Pleural effusion, left: Status: Acute (2) Atrial fibrillation with RVR: Status: Acute (3) VIKTORIYA (acute kidney injury): Status: Acute (4) CHF exacerbation: Status: Acute Plan 62/F with PAF not on anticoagualation, lung CA with mets, recurently pleural effusion, underlying copd, here with sob and found to have PAF with RVR, HR now controlled following IV metoprolol, oral metoprolol and therapeutic thoracentesis -restart oral metoprolol and cardizem, holding full anticoagulation in light of blood effusion and potential for increased bleeding. Will discuss with cardiology further Left malignant pleural efusion, s/p therapeutic thoracentesis, will need repeat CXR to assess reaculation Elevated troponin I, likely related to demand ischemia from AFIB with rvr, no chest pain, and no ischemic changes on ECG VIKTORIYA mild, on CKD3, monitor and reduce HCTZ to once daily non-small cell lung cancer with met -outpatient follow up for paliative chemo with Dr. Samuels diastolic heart failure-stable -BNP within baseline COPD without acute exacerbation -Inhalers PRN -continue O2. depression -continue home meds opiate dependence -continue Suboxone HTN -continue diltiazem and metoprolol HLD--simvastatin dvt prophylaxis- mechanical, due to potential blood nature of malignant effusion full code Quality Stroke Does the patient have a stroke diagnosis?: No VTE Prior VTE?: No VTE Risk Level:: Medical - moderate - high VTE Device Contraindication: N/A - Device Ordered VTE Drug Contraindication: N/A - Med Ordered
[2023-07-09 17:02] LABS: MN% 97.5 %; PMN% 2.5 %; RBC Pleural Fluid 0.033 X10*6/uL; WBC Pleural Fluid 1.378 X10*3/uL
--- NOTE | 2023-07-09 17:31 | PHA.MEDREC ---
Pharmacy Consult ? Medication Reconciliation Pharmacy has completed the medication reconciliation. Confirmed medications with patient and through claim history. Patient reports that she raised her own dose of paroxetine from 60mg daily to 40mg BID Also reports that she takes 1mg (1/2 strip) of Suboxone.
[2023-07-09 17:53] LABS: Troponin-I High Sensitivity 197.3 ng/L (<3.5-17.0)
[2023-07-09 17:57] LABS: Lymphocytes Pleural Fluid 67 %; Monocytes Pleural Fluid 20 %; Neutrophils Pleural Fluid 3 %; Other Cells Plerual Fl 10 %
[2023-07-09 17:58] LABS: BF Shift QC OK YES
--- NOTE | 2023-07-09 18:14 | PHA.MEDREC ---
Pharmacy Consult ? Medication Reconciliation Pharmacy has completed the medication reconciliation.
--- NOTE | 2023-07-09 21:53 | MHC.CM.ED ---
Attempted to meet with patient with regards to discharge teaching. Pt sleeping soundly. Will try to complete assessment when patient wakes.
--- NOTE | 2023-07-10 | ECG_ITS ---
Test Reason : afib Blood Pressure : / mmHG Vent. Rate : 082 BPM Atrial Rate : 082 BPM P-R Int : 170 ms QRS Dur : 074 ms QT Int : 388 ms P-R-T Axes : 050 052 039 degrees QTc Int : 453 ms Sinus rhythm with Premature atrial complexes Otherwise normal ECG When compared with ECG of 09-JUL-2023 12:57, Sinus rhythm has replaced Atrial fibrillation Referred By: Pb Freire Electronically Signed By:Rc Roberts
[2023-07-10 00:10] VITALS: BP 105/73; PULSE 88; RESP 19; O2SAT 97
[2023-07-10 02:06] VITALS: BMI 30.6
[2023-07-10 02:08] VITALS: BP 180/93; PULSE 87; RESP 21; TEMP 36.6; O2SAT 96
[2023-07-10 03:53] VITALS: BP 133/71; PULSE 68; RESP 20; TEMP 36.1; O2SAT 93
[2023-07-10 05:38] VITALS: BMI 31.1
[2023-07-10 06:55] LABS: Hematocrit 29.6 % (37.0-47.0); Hemoglobin 9.8 g/dl (12.0-16.0); Mean Corpuscular HGB Conc 33.1 g/dl (31.0-35.0); Mean Corpuscular Hemoglobin 30.5 pg (27.0-33.0); Mean Corpuscular Volume 92.2 fL (80.0-98.0); Mean Platelet Volume 9.6 fL (9.4-12.3); Platelet Count 163 X10*3/uL (160-400); Red Blood Count 3.21 X10*6/uL (4.20-5.50); Red Cell Distribution Width 14.1 % (11.0-16.0); White Blood Count 6.6 X10*3/uL (4.8-10.8)
[2023-07-10 07:01] LABS: Anion Gap 13 (12-20); Blood Urea Nitrogen 17 mg/dL (9-16); Calcium 9.2 mg/dL (8.4-10.2); Carbon Dioxide 28 mmol/L (22-29); Chloride 99 mmol/L (96-108); Creatinine Clr Calc Pharmacy 51.1; Estimated Glomerular Filt Rate 39; Glucose Random 133 mg/dL (60-115); Potassium 3.3 mmol/L (3.3-5.1); Sodium 137 mmol/L (135-145)
[2023-07-10 08:00] VITALS: BP 132/89; PULSE 61; RESP 19; TEMP 36.6; O2SAT 94
[2023-07-10] MEDS: Omeprazole 20 MG CAPSULE.DR PO (08:38)
[2023-07-10] MEDS: dilTIAZem HCL CD 180 MG CAP.ER.24H PO (08:38)
[2023-07-10] MEDS: Potassium Chloride ER 20 MEQ TAB.ER.PRT PO (08:38)
[2023-07-10] MEDS: hydroCHLOROthiazide 25 MG TABLET PO (08:38)
[2023-07-10] MEDS: PARoxetine HCL 20 MG TABLET 60 MG PO (08:38)
[2023-07-10] MEDS: Metoprolol Tartrate 50 MG TABLET PO (08:39)
[2023-07-10] MEDS: 0.9 % Sodium Chloride Flush 3 ML SYRINGE IVFLUSH (08:39)
[2023-07-10] MEDS: Folic Acid 1 MG TABLET PO (08:39)
--- NOTE | 2023-07-10 08:45 | P.DS_ITS ---
DS: Providers Provider Date of Service: 07/10/23 Date of admission: 07/09/23 16:44 Primary care physician: Daphne Rodriguez MD Consults: 07/10/23 07:25 Consult to Cardiology Routine Consulting Provider: [facility] Cardiovascular Services Reason for consultation: afib Has provider been notified: Yes DS: Diagnosis Discharge Diagnosis (1) Pleural effusion, left: Status: Acute (2) Atrial fibrillation with RVR: Status: Acute (3) VIKTORIYA (acute kidney injury): Status: Acute (4) CHF exacerbation: Status: Acute DS: Summary Hospital Course Hospital Course: admission hpi A 62-year-old female with a past medical history of non-small cell lung cancer status post left upper lobe and right upper lobe wedge resection, with metastases to the brain, liver, and bones, is currently undergoing palliative chemotherapy under the care of Dr. Duckworth. She also has a history of breast cancer, depression, hepatitis C, hypertension, and COPD requiring home oxygen therapy. Additionally, she has paroxysmal atrial fibrillation and is not on anticoagulation due to a history of low platelets, as well as a history of anemia and opioid dependence. She presents to the emergency department with nearly two weeks of increasing shortness of breath and intermittent palpitations. She reports discontinuing her metoprolol and diltiazem for atrial fibrillation due to insurance issues at least a week ago. In the ED, she is found to be in atrial fibrillation with rapid ventricular response. Further testing reveals a troponin I level of 158, and imaging studies demonstrate a large left pleural effusion. She undergoes interventional radiology-guided thoracentesis, during which 1 liter of blood-tinged pleural fluid is drained. Following administration of 5 mg of IV metoprolol and 180 mg of oral metoprolol, her heart rate improves to the 80s and 90s, and her shortness of breath significantly improves. She denies cough and fever. Hospital course: She presented with shortness of breath, AFIB with RVR. CXR/CT revealed a moderate to large left sided pleural effusion. She underwen 1 Liter of pleural fluid removal with improved in symptoms, this is malignant effsuion from underlying lung cancer. For AFIB with RVR, she admits to not having being taking her medication d/t insurance coverage issues. She was given IV lopressor in the ED with improvement HR and has been restarted on the home lopressor and cardizem. She has previously not been on anticoagulation d/t low platlents and not restared d/t bloody nature of effusion, and known metastatic disease including to brain Time Attestation Discharge Coordination Time (in mins): 35 Quality: Safe Use of Opioids Does Pt have an Active Cancer Diagnosis on the Problem List?: Yes Opioid Measure Date for [facility] Report: 06/10/23 Opioid Measure Time for [facility] Report: 12:14 Quality: Stroke Does the patient have a stroke diagnosis?: No Physical Exam Vital Signs: Vital Signs: Last Vital Signs Temp 97.8 F 07/10/23 08:00 Pulse 61 07/10/23 08:00 Resp 19 07/10/23 08:00 BP 132/89 07/10/23 08:00 Pulse Ox 94 07/10/23 08:00 O2 Del Method Nasal Cannula 07/10/23 08:00 O2 Flow Rate 2 07/10/23 08:00 Oxygen Flow Rate 2 07/09/23 12:47 BMI result Body Mass Index 31.1 General: AO X 3, no acute distress Resp: CTA bilateral CVS: S1,S2,iregular iregular GI: +BS, NT, no distention Skin: No rash Neuro: motor grossly intact Psych: appropriate affect DS: Data Data Completed and Pending Completed studies during hospitalization [Text1]: Procedures Transfusion of Nonautologous Platelets into Peripheral Vein, Percutaneous Approach (01/24/22) Transfusion of Nonautologous Red Blood Cells into Peripheral Vein, Percutaneous Approach (02/18/22) Pending studies at discharge: Pending at discharge 07/09/23 15:51 Cytology [PTH] Stat Labs on day of discharge: Laboratory Results - last 24 hr 07/09/23 07/09/23 07/09/23 13:35 13:41 15:30 WBC 6.9 RBC 3.50 L Hgb 10.8 L Hct 32.3 L MCV 92.3 MCH 30.9 MCHC 33.4 RDW 14.1 Plt Count 178 MPV 9.1 L Immature Gran % (Auto) 0.4 Neut % (Auto) 76.1 H Lymph % (Auto) 10.4 L [place] % (Auto) 9.7 Eos % (Auto) 2.5 Baso % (Auto) 0.9 Lymph # (Auto) 0.7 L [place] # (Auto) 0.7 Eos # (Auto) 0.2 Baso # (Auto) 0.1 Abs Immat Gran (auto) 0.03 Absolute Neuts (auto) 5.3 Absolute Nucleated RBC 0.000 Nucleated RBC % (auto) 0.0 PT 13.0 INR 1.1 VBG pH 7.38 VBG pCO2 48 VBG pO2 53 VBG HCO3 29 H VBG O2 Saturation 82.0 VBG Base Excess 3.6 Sodium 140 Potassium 3.4 Chloride 103 Carbon Dioxide 28 Anion Gap 12 BUN 16 Creatinine 1.42 H Estim Creat Clear Calc 48.5 Estimated GFR 37 Random Glucose 118 H Calcium 9.7 Total Bilirubin 0.4 AST 14 ALT 10 Alkaline Phosphatase 66 Troponin I High Sens 158.8 H* D B-Natriuretic Peptide 266 H Total Protein 7.7 Albumin 4.1 Pleural WBC 1.378 Pleural RBC 0.033 Pleural Neutrophils 3 Pleural Lymphocytes 67 Pleural Monocytes 20 Pleural Other Cells 10 07/09/23 07/10/23 17:22 06:15 WBC 6.6 RBC 3.21 L Hgb 9.8 L Hct 29.6 L MCV 92.2 MCH 30.5 MCHC 33.1 RDW 14.1 Plt Count 163 MPV 9.6 Immature Gran % (Auto) Neut % (Auto) Lymph % (Auto) [place] % (Auto) Eos % (Auto) Baso % (Auto) Lymph # (Auto) [place] # (Auto) Eos # (Auto) Baso # (Auto) Abs Immat Gran (auto) Absolute Neuts (auto) Absolute Nucleated RBC 0.000 Nucleated RBC % (auto) 0.0 PT INR VBG pH VBG pCO2 VBG pO2 VBG HCO3 VBG O2 Saturation VBG Base Excess Sodium 137 Potassium 3.3 Chloride 99 Carbon Dioxide 28 Anion Gap 13 BUN 17 H Creatinine 1.36 Estim Creat Clear Calc 51.1 Estimated GFR 39 Random Glucose 133 H Calcium 9.2 Total Bilirubin AST ALT Alkaline Phosphatase Troponin I High Sens 197.3 H* B-Natriuretic Peptide Total Protein Albumin Pleural WBC Pleural RBC Pleural Neutrophils Pleural Lymphocytes Pleural Monocytes Pleural Other Cells Preliminary micro results at discharge 07/09/23 15:30 Routine Culture - Preliminary Thoracentesis Fluid No growth to date. Anaerobic Culture - Preliminary No growth to date. Discharge Plan Discharge Anticipated Discharge Date/Time: 07/10/23 12:10 Patient Disposition: Home, Self-Care Discharge Diagnosis: Atrial fibrilation, Pleural effusion Referrals: Daphne Rodriguez MD [Primary Care Provider] - 1 Week Discharge Medications: Continued folic acid 1 mg tablet 1 mg PO DAILY Qty: 90 3RF potassium chloride [K-Tab] 20 mEq Tablet Extended Release 20 meq PO DAILY Qty: 30 0RF paroxetine HCl 20 mg tablet 40 mg PO BID omeprazole 20 mg capsule,delayed release(DR/EC) 20 mg PO DAILY@0630 Savella 50 mg tablet 50 mg PO BID simvastatin 20 mg Tablet 20 mg PO BEDTIME docusate sodium 100 mg capsule 100 mg PO BEDTIME buprenorphine-naloxone [Suboxone] 2-0.5 mg film 0.5 film sublingual DAILY ipratropium-albuterol 0.5 mg-3 mg(2.5 mg base)/3 mL solution for nebulization 3 ml INHALATION Q6H PRN (Reason: Shortness Of Breath Or Wheezing) Anoro Ellipta 62.5-25 mcg/actuation blister with device 1 inh INHALATION DAILY metoprolol ta-hydrochlorothiaz 50-25 mg tablet 1 tab PO DAILY Qty: 90 0RF diltiazem HCl 180 mg capsule,ext.rel 24h degradable 180 mg PO DAILY Qty: 90 0RF albuterol sulfate [Ventolin HFA] 90 mcg/actuation HFA aerosol inhaler 2 puff inhalation Q6H PRN (Reason: sob) theophylline 400 mg tablet extended release 24 hr 400 mg PO DAILY 30 Days Qty: 30 6RF Discharge Orders: Discharge Order (Routine); Ordered 07/10/23 Ordered By: Pb Freire Diet: Advance to usual diet Activity on Discharge: As tolerated Stand Alone Forms: Patient Portal Discharge page Care Plan Goals: improved in symptoms of shortness of breath and return to baseline functional status Health Concerns: Pleural effusion Atrial fibrilation with rapid rate Plan of Treatment: take all your medicatons as prescribed and follow up with your primary doctor and oncologist is as scheduled your medication diltiazem and Metoprolol ta-Hydrochlorothiazide have been renewed and prescription sent to the Pharmacy Assessment: see above
--- NOTE | 2023-07-10 09:02 | MHC.CM.PN ---
CM met with Patient at bedside. Patient lives alone in an apartment and required no cane/walker [employer]. Patient is receiving Palliative Chemo, Home O2 from [facility] and Suboxone from [facility] in [place].Home/resume said services is the goal and CM has initiated and will follow for dc planning. HCP/Daughter/Makayla @ [phone] will transport home.
[2023-07-10] MEDS: Theophylline Anhydrous ER 400 MG TAB.ER.24H PO (09:15)
[2023-07-10] MEDS: Buprenorphine/Naloxone 2/0.5mg FILM 0.5 FILM SUBLINGUAL (09:15)
[2023-07-10 11:55] VITALS: BP 105/72; PULSE 71; RESP 19; TEMP 36.7; O2SAT 96
--- NOTE | 2023-07-10 12:04 | PM.CNCAR ---
History of Present Illness History of Present Illness Date of Service: 07/10/23 Requesting physician: Pb Freire Chief complaint: pleural effusion, afib rvr Narrative: 62-year-old female with the metastatic small-cell cancer including brain metastasis who is here for shortness of breath and palpitations. She was not taking her metoprolol and Cardizem for atrial fibrillation. She was noticed to be in AFib with RVR and was also noted to have a large pleural effusion which has been drained with bloody fluid. She was previously seen couple of years ago when she had AFib but was actively getting chemotherapy and has pancytopenia and we decided not to start anticoagulation and maybe weight as she completes her chemotherapy. She is wheezing on examination. She is back in sinus rhythm at this point and is getting her home doses of medications. [facility] Past Medical History Medical History Pancytopenia New onset a-fib Cancer of upper lobe of left lung (~2020) Bilateral lung cancer Obesity History of hepatitis C Smoker Tubular adenoma of colon Pulmonary nodules History of breast cancer (~2006) Internal and external bleeding hemorrhoids Cancer of upper lobe of right lung (~2019) GERD (gastroesophageal reflux disease) Depression COPD (chronic obstructive pulmonary disease) HTN (hypertension) Family History Family History Mother History of lung cancer Brother History of lung cancer Maternal Grandmother Breast cancer in female Maternal Aunt Breast cancer in female Daughter Thyroid cancer Surgical History Surgical History History of lung surgery (~2020) History of anterior colporrhaphy (~2016) History of tubal ligation History of lumpectomy of right breast (~2006) History of colonoscopy (~2014) History of hemorrhoidectomy (~2019) History of back surgery (~2011) History of lobectomy of lung (~2019) Social History Social History Household Members: Significant Other Household Members Other:: 2 Housing: Apartment Are you a primary healthcare educator to a significant other at home: No Do you presently have visiting nurse or other home services: Yes Unable to assess alcohol history related to: Unable to respond Alcohol intake: never Patient Tobacco Use Status: Former Tobacco user Quit Date: 06/30/23 Tobacco use type: Cigarette Cigarette Packs Per Day: 1 Cigarettes Per Day: 20.0 Years Smoked: 46 Smoked in Last 30 Days: Yes Patient Interested in Nicotine Replacement: Yes Patient Given Instructions on How to Stop Smoking: Yes Date Education Initiated: 07/10/23 Second Hand Smoke Exposure: Yes Use of substances other than those prescribed or required for medical reasons: Yes Substance Use Type: Marijuana Substance Use Frequency: Socially Currently Displaying Signs/Symptoms of Drug Intoxication Withdrawal: No Any prior treatment program specific to substance use: No Have you been hit, kicked, punched, or otherwise hurt by someone within the past year? If so, by whom?: No Do you feel safe in your current relationship?: Yes Is there a partner from a previous relationship who is making you feel unsafe now?: No Are you made to feel afraid or neglected: No Advance Directives: Yes Advance Directives Information Provided: Yes Advance Directives on File: Yes Advance Directives Date on File: 02/02/22 Do you have thoughts of harming others: None Do you have a plan to hurt others: No Plan Recently lost weight without trying: No How much weight loss: Not applicable Eating poorly because of decreased appetite: No Nutrition screen score: 0 Nutrition Risks: No Nutritional Risk Patient : No service: No Current occupational status: disabled Current occupational exposures/hazards: No Meds Allergies Allergy/AdvReac Type Severity Reaction Status Date / Time lisinopril [LISINOPRIL] Allergy Severe SWELLING- Verified 06/22/23 13:13 ANGIOEDEMA codeine [CODEINE] Allergy Intermediate VOMITING/HIVES, Verified 06/22/23 13:13 vomiting, hives Active Medications: Current Medications Acetaminophen (Acetaminophen 325 Mg Tablet) 650 mg PO Q6H PRN PRN Reason: Pain, Mild (Pain Scale 1-3) Albuterol Sulfate (Albuterol Sulfate 90 Mcg 8 Gm Inhaler) 2 puff INHALE Q6H PRN PRN Reason: Shortness of Breath Albuterol/Ipratropium (Albuterol/Iprat 2.5/0.5mg 3 Ml Ampul.Neb) 3 ml INHALE Q6H PRN PRN Reason: Shortness Of Breath Or Wheezing Atorvastatin Calcium (Atorvastatin Calcium 10 Mg Tablet) 10 mg PO BEDTIME [facility] Buprenorphine/Naloxone (Buprenorphine/Naloxone 2/0.5mg Film) 0.5 film SUBLINGUAL DAILY [facility] Last Admin: 07/10/23 09:15 Dose: 0.5 film Diltiazem HCl (Diltiazem Hcl Cd 180 Mg Cap.Er.24h) 180 mg PO DAILY [facility]; Protocol Last Admin: 07/10/23 08:38 Dose: 180 mg Docusate Sodium (Docusate Sodium 100 Mg Capsule) 100 mg PO DAILY PRN PRN Reason: Constipation Docusate Sodium (Docusate Sodium 100 Mg Capsule) 100 mg PO BEDTIME [facility] Folic Acid (Folic Acid 1 Mg Tablet) 1 mg PO DAILY [facility] Last Admin: 07/10/23 08:39 Dose: 1 mg Metoprolol Tartrate (Metoprolol Tartrate 50 Mg Tablet) 50 mg PO DAILY [facility] Last Admin: 07/10/23 08:39 Dose: 50 mg Nicotine Polacrilex (Nicotine Polacrilex 2 Mg Gum) 2 mg BUCCAL Q2H PRN PRN Reason: Nicotine Cravings Non-Formulary Medication (Milnacipran [Savella]) 50 mg PO BID [facility] Non-Formulary Medication (Umeclidinium-Vilanterol [Anoro Ellipta]) 1 inhalation INHALE DAILY [facility] Omeprazole (Omeprazole 20 Mg Capsule.Dr) 20 mg PO DAILY@0630 [facility] Last Admin: 07/10/23 08:38 Dose: 20 mg Ondansetron HCl (Ondansetron Hcl 4 Mg/2 Ml Vial) 4 mg IVPUSH Q8H PRN PRN Reason: Nausea and Vomiting Paroxetine HCl (Paroxetine Hcl 20 Mg Tablet) 60 mg PO DAILY [facility] Last Admin: 07/10/23 08:38 Dose: 60 mg Potassium Chloride (Potassium Chloride Er 20 Meq Tab.Er.Prt) 20 meq PO DAILY [facility] Last Admin: 07/10/23 08:38 Dose: 20 meq Sodium Chloride (0.9 % Sodium Chloride Flush 3 Ml Syringe) 3 ml IVFLUSH QSHIFT [facility] Last Admin: 07/10/23 08:39 Dose: 3 ml Theophylline (Theophylline Anhydrous Er 400 Mg Tab.Er.24h) 400 mg PO DAILY [facility] Last Admin: 07/10/23 09:15 Dose: 400 mg Home Medications Medication Instructions Recorded Confirmed Last Taken Type metoprolol tartrate 50 1 tab PO DAILY 01/18/22 07/09/23 07/09/23 History mg-hydrochlorothiazide 25 mg tablet milnacipran 50 mg tablet (Savella) 50 mg PO BID 01/18/22 07/09/23 07/09/23 History omeprazole 20 mg capsule,delayed 20 mg PO DAILY@0630 01/18/22 07/09/23 07/09/23 History release paroxetine HCl 20 mg tablet 40 mg PO BID 01/18/22 07/09/23 07/09/23 History simvastatin 20 mg tablet 20 mg PO BEDTIME 02/17/22 07/09/23 07/08/23 History diltiazem HCl 180 mg 180 mg PO DAILY 03/26/23 07/09/23 07/09/23 History capsule,extended release 24 hr, controlled albuterol sulfate 90 mcg/actuation 2 puff inhalation Q6H PRN sob 06/22/23 07/09/23 07/09/23 History aerosol inhaler (Ventolin HFA) buprenorphine 2 mg-naloxone 0.5 mg 0.5 film sublingual DAILY 07/09/23 07/09/23 07/09/23 History sublingual film (Suboxone) docusate sodium 100 mg capsule 100 mg PO BEDTIME stool softener 07/09/23 07/09/23 07/08/23 History ipratropium 0.5 mg-albuterol 3 mg 3 ml inhalation Q6H PRN Shortness 07/09/23 07/09/23 07/08/23 History (2.5 mg base)/3 mL nebulization Of Breath Or Wheezing soln umeclidinium 62.5 mcg-vilanterol 1 inh inhalation DAILY 07/09/23 07/09/23 07/09/23 History 25 mcg/actuation powdr for inhalation (Anoro Ellipta) Physical Exam Vital Signs: Vital Signs: Last Vital Signs Temp 98.0 F 07/10/23 11:55 Pulse 71 07/10/23 11:55 Resp 19 07/10/23 11:55 BP 105/72 07/10/23 11:55 Pulse Ox 96 07/10/23 11:55 O2 Del Method Room Air 07/10/23 11:55 O2 Flow Rate 2 07/10/23 08:00 Oxygen Flow Rate 2 07/09/23 12:47 BMI result Body Mass Index 31.1 GENERAL APPEARANCE: in no acute distress, pleasant. NECK: no carotid bruit, no jugular venous distention. SKIN: no suspicious lesions, warm and dry. HEART: no murmurs, regular rate and rhythm. LUNGS: Bilateral expiratory wheezes. ABDOMEN: soft, nontender. EXTREMITIES: no edema. PERIPHERAL PULSES: equal. NEUROLOGIC: No gross deficits, AAO X 3 Objective Labs and Meds 07/10/23 06:15 07/10/23 06:15 Lab results: Laboratory Results - last 24 hr 07/09/23 07/09/23 07/09/23 13:35 13:41 15:30 WBC 6.9 RBC 3.50 L Hgb 10.8 L Hct 32.3 L MCV 92.3 MCH 30.9 MCHC 33.4 RDW 14.1 Plt Count 178 MPV 9.1 L Immature Gran % (Auto) 0.4 Neut % (Auto) 76.1 H Lymph % (Auto) 10.4 L [place] % (Auto) 9.7 Eos % (Auto) 2.5 Baso % (Auto) 0.9 Lymph # (Auto) 0.7 L [place] # (Auto) 0.7 Eos # (Auto) 0.2 Baso # (Auto) 0.1 Abs Immat Gran (auto) 0.03 Absolute Neuts (auto) 5.3 Absolute Nucleated RBC 0.000 Nucleated RBC % (auto) 0.0 PT 13.0 INR 1.1 VBG pH 7.38 VBG pCO2 48 VBG pO2 53 VBG HCO3 29 H VBG O2 Saturation 82.0 VBG Base Excess 3.6 Sodium 140 Potassium 3.4 Chloride 103 Carbon Dioxide 28 Anion Gap 12 BUN 16 Creatinine 1.42 H Estim Creat Clear Calc 48.5 Estimated GFR 37 Random Glucose 118 H Calcium 9.7 Total Bilirubin 0.4 AST 14 ALT 10 Alkaline Phosphatase 66 Troponin I High Sens 158.8 H* D B-Natriuretic Peptide 266 H Total Protein 7.7 Albumin 4.1 Pleural WBC 1.378 Pleural RBC 0.033 Pleural Neutrophils 3 Pleural Lymphocytes 67 Pleural Monocytes 20 Pleural Other Cells 10 07/09/23 07/10/23 07/10/23 17:22 06:15 08:58 WBC 6.6 RBC 3.21 L Hgb 9.8 L Hct 29.6 L MCV 92.2 MCH 30.5 MCHC 33.1 RDW 14.1 Plt Count 163 MPV 9.6 Immature Gran % (Auto) Neut % (Auto) Lymph % (Auto) [place] % (Auto) Eos % (Auto) Baso % (Auto) Lymph # (Auto) [place] # (Auto) Eos # (Auto) Baso # (Auto) Abs Immat Gran (auto) Absolute Neuts (auto) Absolute Nucleated RBC 0.000 Nucleated RBC % (auto) 0.0 PT INR VBG pH VBG pCO2 VBG pO2 VBG HCO3 VBG O2 Saturation VBG Base Excess Sodium 137 Potassium 3.3 Chloride 99 Carbon Dioxide 28 Anion Gap 13 BUN 17 H Creatinine 1.36 Estim Creat Clear Calc 51.1 Estimated GFR 39 Random Glucose 133 H Calcium 9.2 Total Bilirubin AST ALT Alkaline Phosphatase Troponin I High Sens 197.3 H* 152.0 H* B-Natriuretic Peptide Total Protein Albumin Pleural WBC Pleural RBC Pleural Neutrophils Pleural Lymphocytes Pleural Monocytes Pleural Other Cells Imaging Radiologist's impression: Impressions Chest X-Ray 07/09/23 13:05 IMPRESSION: Moderate left pleural effusion and adjacent atelectasis or consolidation at the left lung base. Chronic small right pleural effusion or pleural thickening similar to previous exam. Chest CTA 07/09/23 14:12 IMPRESSION: No evidence of pulmonary embolism. New large left pleural effusion and adjacent compressive atelectasis/consolidation of the left lower lobe. Pulmonary findings and postsurgical changes are otherwise stable. Stable bone findings. VTE: negative Chest X-Ray 07/09/23 15:37 IMPRESSION: 1. Slight decrease in size of left-sided moderate pleural effusion with subjacent atelectasis. 2. Small right pleural effusion with subjacent atelectasis. Assessment and Plan (1) Atrial fibrillation with RVR: Status: Acute Plan 62-year-old female with paroxysmal atrial fibrillation. She has metastatic small-cell lung cancer. Given brain Mets and bloody pleural fluid, would favor not starting her anticoagulation. She can continue on home dose of medication. She is in sinus rhythm and can be discharged home. Thank you for allowing me to participate in the care of your patient. Please feel free to contact me if you have any questions. Procedures Date of Service Date of Service: 07/10/23
--- NOTE | 2023-07-10 12:34 | MHC.CM.PN ---
Patient has been medically cleared for dc to home today, self care.
[2023-07-15 14:56] LABS: LDH Pleural Fluid 235
== END 2023-07-10 14:28 | disposition home or self-care (01) | DRG 136 ==
LOC: HO.ED 16:34 → HO.EDOVER 16:53 → HO.IMC 07-10 00:42
PROVIDERS: Admitting Provider Physician Assistant Medical; Emergency Provider Student in an Organized Health Care Education/Training Program; PCP Pediatrics; Visit Provider Internal Medicine
DX: C34.12 Malignant neoplasm of upper lobe, left bronchus or lung (principal); C79.51 Secondary malignant neoplasm of bone; I13.0 Hypertensive heart and chronic kidney disease with heart failure and stage 1 through stage 4 chronic kidney disease, or unspecified chronic kidney disease; N17.9 Acute kidney failure, unspecified; J91.0 Malignant pleural effusion; I24.89 Other forms of acute ischemic heart disease; I50.32 Chronic diastolic (congestive) heart failure; E78.5 Hyperlipidemia, unspecified; C34.11 Malignant neoplasm of upper lobe, right bronchus or lung; J44.9 Chronic obstructive pulmonary disease, unspecified; N18.30 Chronic kidney disease, stage 3 unspecified; I48.0 Paroxysmal atrial fibrillation; F11.20 Opioid dependence, uncomplicated; C78.7 Secondary malignant neoplasm of liver and intrahepatic bile duct; C79.31 Secondary malignant neoplasm of brain; Z90.2 Acquired absence of lung [part of]; Z87.891 Personal history of nicotine dependence; Z79.899 Other long term (current) drug therapy
CPT/HCPCS: 32555; 36415; 71045; 71275; 80048; 80053; 82803; 83615; 83880; 83986; 84484; 85025; 85027; 85610; 87070; 87073; 87205; 88112; 88305; 88342; 89051; 93005; 99222; 99285; J1940; Q9967

== ENCOUNTER → 2023-07-09 13:14 | Outpatient (BNV) | payer MEDICAID, SELFPAY | PROVIDERS: Emergency Provider Student in an Organized Health Care Education/Training Program; PCP Pediatrics; Visit Provider Physician Assistant Surgical | DX: J90 Pleural effusion, not elsewhere classified (principal) | CPT/HCPCS: 32555; 99499 ==

== ENCOUNTER 2023-07-09 16:44 | Outpatient (BNV) | payer MEDICAID, SELFPAY | END 2023-07-10 08:51 | PROVIDERS: Admitting Provider Physician Assistant Medical; Emergency Provider Student in an Organized Health Care Education/Training Program; PCP Pediatrics; Visit Provider Internal Medicine Cardiovascular Disease | DX: I48.91 Unspecified atrial fibrillation (principal) | CPT/HCPCS: 93010 ==

== ENCOUNTER → 2023-07-09 16:44 | Outpatient (BNV) | payer MEDICAID, SELFPAY | PROVIDERS: Admitting Provider Physician Assistant Medical; Emergency Provider Student in an Organized Health Care Education/Training Program; PCP Pediatrics; Visit Provider Internal Medicine | DX: J90 Pleural effusion, not elsewhere classified (principal); I48.91 Unspecified atrial fibrillation; N17.9 Acute kidney failure, unspecified; I50.9 Heart failure, unspecified | CPT/HCPCS: 99223; 99239 ==

== ENCOUNTER → 2023-07-09 16:44 | Outpatient (BNV) | payer MEDICAID, SELFPAY | PROVIDERS: Admitting Provider Physician Assistant Medical; Emergency Provider Student in an Organized Health Care Education/Training Program; PCP Pediatrics; Visit Provider Internal Medicine Cardiovascular Disease | DX: I48.91 Unspecified atrial fibrillation (principal); R00.0 Tachycardia, unspecified; R06.02 Shortness of breath | CPT/HCPCS: 93010; 99222 ==

== ENCOUNTER 2023-10-08 12:57 | Outpatient (AMB) | payer MEDICAID, SELFPAY ==
[2023-10-08 13:06] VITALS: BP 120/72; PULSE 66; O2SAT 94; BMI 31.2
--- NOTE | 2023-10-08 13:06 | A.OFFVIS_ITS ---
Vital Signs 10/08/23 13:06 Height 5 ft 7 in Weight 199 lb 8.293 oz BMI 31.2 BP 120/72 Blood Pressure Location Rt brachial Position Sitting Pulse 66 Pulse Source Doppler Pulse Oximetry (%) 94 Oxygen Delivery Method Nasal Cannula Oxygen Flow Rate 2 Intake Visit Reasons: COPD/PFT Follow Up Allergies lisinopril [LISINOPRIL] Allergy (Severe, Verified 09/03/23 12:08) SWELLING- ANGIOEDEMA codeine [CODEINE] Allergy (Intermediate, Verified 09/03/23 12:08) VOMITING/HIVES, vomiting, hives HPI HPI COPD/PFT Follow Up: Details: 63-year-old lady, recent 40+ pack-year smoker, with underlying history of breast cancer status post lumpectomy approximately 10-15 years prior at [facility], underlying recurrent lung cancer now under oncology care on Keytruda, followed for COPD now supplemental oxygen dependent. Patient has been using Anoro, duo nebs, and albuterol MDI, and theophylline with reasonable control of her symptoms, though she does not like how duo nebs maker failure. She denies recent exacerbations. [facility] Medical History Pancytopenia New onset a-fib Cancer of upper lobe of left lung (~2020) Bilateral lung cancer Obesity History of hepatitis C Smoker Tubular adenoma of colon Pulmonary nodules History of breast cancer (~2006) Internal and external bleeding hemorrhoids Cancer of upper lobe of right lung (~2019) GERD (gastroesophageal reflux disease) Depression COPD (chronic obstructive pulmonary disease) HTN (hypertension) Surgical History History of lung surgery (~2020) History of anterior colporrhaphy (~2016) History of tubal ligation History of lumpectomy of right breast (~2006) History of colonoscopy (~2014) History of hemorrhoidectomy (~2019) History of back surgery (~2011) History of lobectomy of lung (~2019) Family History Mother History of lung cancer Brother History of lung cancer Maternal Grandmother Breast cancer in female Maternal Aunt Breast cancer in female Daughter Thyroid cancer Social History Household Members: Significant Other Household Members Other:: 2 Housing: Apartment Are you a primary rn transitional care to a significant other at home: No Do you presently have visiting nurse or other home services: Yes Unable to assess alcohol history related to: Unable to respond Alcohol intake: never Patient Tobacco Use Status: Former Tobacco user Tobacco use type: Cigarette Cigarette Packs Per Day: 1 Cigarettes Per Day: 20.0 Years Smoked: 46 Second Hand Smoke Exposure: Yes Substance Use Type: Marijuana Advance Directives Date on File: 02/02/22 service: No Current occupational status: disabled Current occupational exposures/hazards: No Review of Systems Const Denies daytime sleepiness, Denies excessive sweating, Denies fatigue, Denies fever(s), Denies lethargy, Denies malaise, Denies night sweats, Denies snoring and Denies weight loss Eyes Denies blurry vision and Denies itchy eyes ENT Denies nasal congestion, Denies post nasal drip, Denies sinus pain, Denies sinus pressure and Denies other ( Thrush) Card Denies chest pain, Denies pedal edema, Denies dyspnea, Denies orthopnea and Denies paroxysmal nocturnal dyspnea Resp Denies cough, Denies hemoptysis, Denies excessive phlegm production, Denies dyspnea, Denies snoring and Denies wheezing GI Denies abdominal pain and Denies heartburn Musc Denies myalgias, Denies arthralgias and Denies joint swelling Skin/Breast Denies rash Neuro Denies memory loss and Denies seizure-like activity Psych Denies abnormal sleep pattern, Denies anxiety and Denies memory loss Endo Denies excessive sweating, Denies fatigue and Denies heat intolerance Dandy/Lymph Denies easy bruising Aller/Immun Denies itchy eyes, Denies seasonal rhinorrhea and Denies wheezing Physical Exam Vital Signs: Last Vital Signs Pulse 66 10/08/23 13:06 BP 120/72 10/08/23 13:06 Pulse Ox 94 10/08/23 13:06 Oxygen Delivery Method Nasal Cannula 10/08/23 13:06 Oxygen Flow Rate 2 10/08/23 13:06 BMI result Body Mass Index 31.2 Const General: no acute distress and alert Nutritional Appearance: not obese Orientation/consciousness: Other orientation findings ( oriented) HEENT Head: Yes atraumatic Eyes General: appearance normal, both eyes and all related structures Sclerae: sclerae normal EOM: EOMs intact bilaterally Neck Neck: Yes supple Lymphatic: no lymphadenopathy noted Resp Effort & Inspection: normal respiratory effort and no use of accessory muscles Auscultation: clear to auscultation bilaterally Cardio Rate: regular rate Rhythm: regular rhythm Heart sounds: no gallops, no murmurs and no rubs Skin General skin exam: other ( warm) Extrem General: No clubbing, No cyanosis and No edema Assessment & Plan Assessment & Plan (1) COPD (chronic obstructive pulmonary disease): Code(s): J44.9 - Chronic obstructive pulmonary disease, unspecified Category: Medical Plan: Reasonably well controlled on current regimen of Anoro, theophylline, and albuterol MDI. Continue current regimen. (2) Supplemental oxygen dependent: Code(s): Z99.81 - Dependence on supplemental oxygen Category: Medical Plan: Continue supplemental oxygen to maintain O2 saturation of 88-92%. Medications: New ipratropium bromide administer into each nostril 2 sprays intranasal TID-QID PRN 15 mL 3RF allergy symptoms Coding Level of Care Code Est Pt Level 4 (84754) Diagnoses COPD (chronic obstructive pulmonary disease) J44.9 Supplemental oxygen dependent Z99.81
== END 2023-10-08 13:24 | disposition home or self-care (01) ==
PROVIDERS: PCP Pediatrics; Referring Provider Pediatrics; Visit Provider Internal Medicine Pulmonary Disease
DX: J44.9 Chronic obstructive pulmonary disease, unspecified (principal); Z99.81 Dependence on supplemental oxygen
CPT/HCPCS: 99214

== ENCOUNTER → 2023-10-08 12:57 | Outpatient (BNVA) | payer MEDICAID, SELFPAY | PROVIDERS: PCP Pediatrics; Visit Provider Internal Medicine Pulmonary Disease | DX: J44.9 Chronic obstructive pulmonary disease, unspecified (principal); Z99.81 Dependence on supplemental oxygen | CPT/HCPCS: 99212 ==

== ENCOUNTER 2023-10-18 12:14 | Inpatient (IN) | payer MEDICAID, SELFPAY ==
[2023-10-18] VITALS (9 sets, daily range): BP systolic 117–162; BP diastolic 70–96; PULSE 66–91; RESP 15–26; TEMP 36.1–36.8; O2SAT 88–99; BMI 33.2; BMI 33.0
--- NOTE | ~2023-10-18 | XR_ITS ---
EXAMINATION: XR CHEST CLINICAL INFORMATION: Follow-up pleural effusion. COMPARISON: Chest radiograph dated 10/18/2023. TECHNIQUE: Frontal view of the chest was obtained. FINDINGS: The heart, great vessels, pulmonary vasculature and mediastinum are stable. There are small right and small to moderate left pleural effusions, with interim improvement seen on the left. There is adjacent left base airspace disease. No pneumothorax is seen. There is no acute osseous abnormality. Cervicothoracic orthopedic hardware is noted. XR/XR chest 1V IMPRESSION: Small right and small to moderate left pleural effusions are seen. There is adjacent left base airspace disease.
--- NOTE | ~2023-10-18 | XR_ITS ---
EXAMINATION: XR CHEST CLINICAL INFORMATION: Shortness of breath. COMPARISON: 07/09/2023. TECHNIQUE: Frontal view of the chest was obtained. FINDINGS: Heart size normal. No evidence of CHF. Suture line present in the left mid lung. There has been increase in size of left pleural effusion. A small right pleural effusion persists. There is adjacent bibasilar atelectasis, left greater than right. ACDF hardware is again seen. XR/XR chest 1V IMPRESSION: Bilateral pleural effusions, left greater than right, with adjacent atelectasis.
--- NOTE | 2023-10-18 12:27 | ECG_ITS ---
Test Reason : SHORTNESS OF BREATH Blood Pressure : / mmHG Vent. Rate : 078 BPM Atrial Rate : 078 BPM P-R Int : 154 ms QRS Dur : 088 ms QT Int : 406 ms P-R-T Axes : 067 036 027 degrees QTc Int : 462 ms Normal sinus rhythm Low voltage QRS Borderline ECG When compared with ECG of 10-JUL-2023 08:51, Premature atrial complexes are no longer Present Referred By: Chase Chacon Electronically Signed By:Rc Roberts
--- NOTE | 2023-10-18 12:28 | ED_ITS ---
HPI - SOB/Dyspnea General Chief Complaint: Dyspnea Stated Complaint: DIFF BREATHING,LUNG CA,95% 5LPM PER EMS Time Seen by Provider: 10/18/23 12:25 Source: patient Mode of arrival: EMS Limitations: no limitations History of Present Illness HPI Narrative: This is 63 yo patient presented in respiratory distress by the manager project management, she has history of COPD she is on home oxygen and history of lung cancer as well. MD elicited complaint: shortness of breath and cough Pertinent past history: COPD Onset (ago): day(s) (1) Timing: constant Severity: moderate Exacerbating factors: nothing Relieving factors: nothing Known history of: COPD Associated symptoms: denies other symptoms Related Data Home Medications ?Medication ?Instructions ?Recorded ?Confirmed milnacipran 50 mg tablet (Savella) 50 mg PO BID 01/18/22 10/15/23 omeprazole 20 mg capsule,delayed 20 mg PO DAILY@0630 01/18/22 10/15/23 release paroxetine HCl 20 mg tablet 40 mg PO BID 01/18/22 10/15/23 simvastatin 20 mg tablet 20 mg PO BEDTIME 02/17/22 10/15/23 albuterol sulfate 90 mcg/actuation 2 puff inhalation Q6H PRN sob 06/22/23 10/15/23 aerosol inhaler (Ventolin HFA) buprenorphine 2 mg-naloxone 0.5 mg 0.5 film sublingual DAILY 07/09/23 10/15/23 sublingual film (Suboxone) docusate sodium 100 mg capsule 100 mg PO BEDTIME stool softener 07/09/23 10/15/23 umeclidinium 62.5 mcg-vilanterol 1 inh inhalation DAILY 07/09/23 10/15/23 25 mcg/actuation powdr for inhalation (Anoro Ellipta) Previous Rx's ?Medication ?Instructions ?Recorded theophylline 400 mg 400 mg PO DAILY 30 days #30 tabs 06/22/23 tablet,extended release 24 hr diltiazem HCl 180 mg 180 mg PO DAILY #90 caps 07/10/23 capsule,extended release 24 hr, controlled metoprolol tartrate 50 1 tab PO DAILY #90 tabs 07/10/23 mg-hydrochlorothiazide 25 mg tablet folic acid 1 mg tablet 1 mg PO DAILY #90 tabs 10/04/23 ipratropium bromide 42 mcg (0.06 2 spray intranasal TID-QID PRN 10/08/23 %) nasal spray allergy symptoms #15 mL potassium chloride 20 mEq 20 meq PO DAILY #30 tabs 10/08/23 tablet,extended release (K-Tab) levothyroxine 25 mcg tablet 25 mcg PO DAILY #30 tabs 10/15/23 (Synthroid) Allergies Allergy/AdvReac Type Severity Reaction Status Date / Time lisinopril [LISINOPRIL] Allergy Severe SWELLING- Verified 10/18/23 12:25 ANGIOEDEMA codeine [CODEINE] Allergy Intermediate VOMITING/HIVES, Verified 09/03/23 12:08 vomiting, hives Review of Systems 2 ENT: Reports system reviewed and no additional complaints, except as documented Respiratory: Respiratory: Reports cough PMFSH Past Medical History Attestation statement: The following information was validated with the patient. Source: unable to obtain Medical History Pancytopenia New onset a-fib Cancer of upper lobe of left lung (~2020) Bilateral lung cancer Obesity History of hepatitis C Smoker Tubular adenoma of colon Pulmonary nodules History of breast cancer (~2006) Internal and external bleeding hemorrhoids Cancer of upper lobe of right lung (~2019) GERD (gastroesophageal reflux disease) Depression COPD (chronic obstructive pulmonary disease) HTN (hypertension) Surgical History History of lung surgery (~2020) History of anterior colporrhaphy (~2016) History of tubal ligation History of lumpectomy of right breast (~2006) History of colonoscopy (~2014) History of hemorrhoidectomy (~2019) History of back surgery (~2011) History of lobectomy of lung (~2019) Family History Family History Mother History of lung cancer Brother History of lung cancer Maternal Grandmother Breast cancer in female Maternal Aunt Breast cancer in female Daughter Thyroid cancer Social History Social History Household Members: Significant Other Household Members Other:: 2 Housing: Apartment Are you a primary critical care educator to a significant other at home: No Do you presently have visiting nurse or other home services: Yes Unable to assess alcohol history related to: Unable to respond Alcohol intake: never Patient Tobacco Use Status: Former Tobacco user Tobacco use type: Cigarette Cigarette Packs Per Day: 1 Cigarettes Per Day: 20.0 Years Smoked: 46 Smoked in Last 30 Days: Yes Second Hand Smoke Exposure: Yes Use of substances other than those prescribed or required for medical reasons: Yes Substance Use Type: Marijuana Advance Directives: Yes Advance Directives on File: Yes Advance Directives Date on File: 02/02/22 Patient : No service: No Current occupational status: disabled Current occupational exposures/hazards: No Physical Exam 2 Vital Signs: Vital Signs: Last Vital Signs Temp 98.0 F 10/18/23 14:56 Pulse 71 10/18/23 14:56 Resp 17 10/18/23 14:56 BP 120/96 H 10/18/23 14:56 Pulse Ox 92 10/18/23 14:56 O2 Del Method Nasal Cannula 10/18/23 14:56 O2 Flow Rate 3 10/18/23 14:56 BMI result Body Mass Index 33.2 Const: General: cooperative Orientation/consciousness: oriented to person and patient oriented x3 HEENT: Head: Yes normal to inspection General nose exam: Normal external nose present Face and sinus: Yes normal facial exam Neck: Neck: Yes normal visual inspection Chest: Chest palpation & inspection: normal inspection of the chest Resp: Effort & Inspection: normal respiratory effort Auscultation: rhonchi and wheezes Cardio: Jugular venous distension: no JVD Palpation: normal PMI Rate: r egular rate Rhythm: regular rhythm GI: Inspection: Yes normal to inspection Palpation (GI): Soft to palpation Auscultation: normal bowel sounds Skin: General skin exam: no rashes or lesions noted Rashes: no rashes Neuro: General: oriented to person and patient oriented x3 Cranial nerves: Yes CN's II-XII intact bilaterally Medications Administered Discontinued Medications Generic Name Dose Route Start Last Admin Trade Name Freq PRN Reason Stop Dose Admin Albuterol Sulfate 5 mg/ 0 mg 10/18/23 12:41 10/18/23 12:46 Albuterol/Ipratropium 3 ml INHALE 10/18/23 12:42 7.5 each ONCE ONE Administration Methylprednisolone Sodium Succinate 125 mg 10/18/23 12:27 10/18/23 12:56 Methylprednisolone Sod Succ 125 Mg/2 Ml Vial IVPUSH 10/18/23 12:28 125 mg ONCE ONE Administration Medical Decision Making Medical Decision Making [facility] Narrative: Patient presented with shortness of breath will get labs EKG reassessed Differential Diagnosis Differential Diagnoses: The differential diagnosis associated with the presentation includes COPD exacerbation/pneumonia/pneumothorax Admission/Observation Consideration of admission/observation: Escalation of care including admission/observation considered Consult Healthcare Provider Management of the patient was discussed with: Hospitalist Lab Data [facility] Lab Attestation statement: I reviewed the patient's lab results. 10/18/23 12:41 10/18/23 12:41 Labs: Lab Results 10/18/23 Range/Units 12:41 WBC 8.0 (4.8-10.8) X10*3/uL RBC 3.46 L (4.20-5.50) X10*6/uL Hgb 10.1 L (12.0-16.0) g/dl Hct 30.9 L (37.0-47.0) % MCV 89.3 (80.0-98.0) fL MCH 29.2 (27.0-33.0) pg MCHC 32.7 (31.0-35.0) g/dl RDW 14.7 (11.0-16.0) % Plt Count 182 (160-400) X10*3/uL MPV 9.3 L (9.4-12.3) fL Immature Gran % (Auto) 0.4 (0.0-0.4) % Neut % (Auto) 81.4 H (45-73) % Lymph % (Auto) 8.7 L (20-40) % [place] % (Auto) 7.2 (2-11) % Eos % (Auto) 1.7 (0-4) % Baso % (Auto) 0.6 (0-2) % Lymph # (Auto) 0.7 L (1.2-4.9) X10*3/uL [place] # (Auto) 0.6 (0.1-1.2) X10*3/uL Eos # (Auto) 0.1 (0.0-0.4) X10*3/uL Baso # (Auto) 0.1 (0.0-0.2) X10*3/uL Abs Immat Gran (auto) 0.03 (0.00-0.03) X10*3/uL Absolute Neuts (auto) 6.5 (2.0-8.3) x10*3/uL Absolute Nucleated RBC 0.000 (0.0-0.012) X10*3/uL Nucleated RBC % (auto) 0.0 (0.0-0.2) /100WBC Sodium 141 (135-145) mmol/L Potassium 3.3 (3.3-5.1) mmol/L Chloride 99 (96-108) mmol/L Carbon Dioxide 31 H (22-29) mmol/L Anion Gap 14 (12-20) BUN 19 H (9-16) mg/dL Creatinine 1.14 (0.5-1.4) mg/dL Estim Creat Clear Calc 60.2 Estimated GFR 48 Random Glucose 120 H (60-115) mg/dL Calcium 9.6 D (8.4-10.2) mg/dL Total Bilirubin 0.3 (0.0-1.0) mg/dL AST 11 (5-31) U/L ALT 8 (0-31) U/L Alkaline Phosphatase 58 (39-117) U/L Troponin I High Sens 61.7 H* D (<3.5-17.0) ng/L Total Protein 7.1 (6.5-8.0) g/dL Albumin 3.8 (3.5-5.0) g/dL Independent Interpretation I performed an independent interpretation of an: Plain X-Ray Interpretation: I personally reviewed the chest x-ray interpreted as bilateral pleural effusion Radiology Impression Discussion of test interpretation with radiology: I have reviewed the radiologist's reading. Independent Historian Clinical information obtained from an independent historian. History obtained from or confirmed by: EMS External Record Review External record reviewed: Inpatient record Chronic Conditions Patient?s care impacted by: Cancer Lung cancer Critical Care Time Critical Care Time Critical Care Time: Yes Total Critical Care Time: 60 Attestation: Nebulizer treatment IV steroid talking to the EMS taking care of the patient speak with the hospitalist reviewing the record Discharge Plan Discharge Clinical Impression: COPD exacerbation Lung cancer Qualifiers: Laterality: right Lung location: unspecified part of lung Qualified Code(s): C 34.91 - Malignant neoplasm of unspecified part of right bronchus or lung Patient Disposition: Admitted As Inpatient Print Language: Greenlandic
[2023-10-18 12:45] LABS: MANUAL DIFF FLAG NO
[2023-10-18 12:46] LABS: Basophils Absolute Auto 0.1 X10*3/uL (0.0-0.2); Basophils Percent Auto 0.6 % (0-2); Eosinophils Absolute Auto 0.1 X10*3/uL (0.0-0.4); Eosinophils Percent Auto 1.7 % (0-4); Hematocrit 30.9 % (37.0-47.0); Hemoglobin 10.1 g/dl (12.0-16.0); Imm Gran Abs Auto 0.03 X10*3/uL (0.00-0.03); Imm Gran Pct Auto 0.4 % (0.0-0.4); Lymphocytes Absolute Auto 0.7 X10*3/uL (1.2-4.9); Lymphocytes Percent Auto 8.7 % (20-40); Mean Corpuscular HGB Conc 32.7 g/dl (31.0-35.0); Mean Corpuscular Hemoglobin 29.2 pg (27.0-33.0); Mean Corpuscular Volume 89.3 fL (80.0-98.0); Mean Platelet Volume 9.3 fL (9.4-12.3); Monocytes Absolute Auto 0.6 X10*3/uL (0.1-1.2); Monocytes Percent Auto 7.2 % (2-11); Neutrophils Absolute Auto 6.5 x10*3/uL (2.0-8.3); Neutrophils Percent Auto 81.4 % (45-73); Platelet Count 182 X10*3/uL (160-400); Red Blood Count 3.46 X10*6/uL (4.20-5.50); Red Cell Distribution Width 14.7 % (11.0-16.0)
[2023-10-18] MEDS: Albuterol Sulfate 5 MG, Albuterol/Iprat 2.5/0.5MG 3 ML 3 ML INHALE (12:46)
[2023-10-18] MEDS: methylPREDNISolone Sod Succ 125 MG/2 ML VIAL IVPUSH (12:56)
--- OUTSIDE RECORDS SUMMARY | 2023-10-18 12:59 | XMS_ITS | Continuity of Care Document ---
Author Organization [facility] ter Address [address] [place] [id number]- Care Team Providers Care Demonstrator Sales Name Role Phone Daphne Rodriguez MD Primary Care Physician [phone] Encounter 10/05/23 - 10/06/[address] [id number] Attending Physician: Not on Staff, Attending MD Referring Physician: Not on Staff, Referring MD Allergies, Adverse Reactions, Alerts Substance Reaction Severity Status codeine N/V Active lisinopril 1 tongue swelling Persistent Severe Active 1angioedema Medications amLODIPine 10 mg oral tablet 10 [...] Maintenance, 02/05/17 14:15:23, Route to Pharmacy Electronically, [id number], [facility]/pharmacy #[id number] Start Date: 02/05/17 Status: Ordered [...] Code MRI Safety Implantable Status Assigning Authority [id number] Unknown [id number] Unknown 09/13/20 Unknown Unknown Active GS1 Patient Care team information Care Team Personnel Name: Michael CATES , Daphne Masterson Position: [facility] Outreach Member Role: PCP Address: Address: [address] [place] [id number]- Name: Sayra Sweet RN Position: [facility] RN Supv Member Role: Primary Care Nurse Name: Jennifer De León RN Position: [facility] Onco RN Member Role: Primary Care Nurse Care Team Related Persons Name: RAJ ADAIR Address: home [address] [place] [id number] Name: LEVI ADAIR Address: [place] [address]
--- OUTSIDE RECORDS SUMMARY | 2023-10-18 12:59 | XMS_ITS | Continuity of Care Document ---
Author Organization [facility] ter Address [address] [place] [address]- Care Team Providers Care Preformer [employer] Name Role Phone Daphne Rodriguez MD Primary Care Physician Encounter [facility] Date(s): 05/25/23 - 07/23/[address] [address] Attending Physician: Daphne Rodriguez MD Admitting [...] Maintenance, 02/05/17 14:15:23, Route to Pharmacy Electronically, [id number], [facility]/pharmacy #[id number] Start Date: 02/05/17 Status: Ordered [...] opioid co-treatment, no CK available 3inpatient detox 2007 4s/p treatment Social History Social History Type Response Smoking Status Current every day rolf epstein entered on: 02/04/17 Sex Implantable Device List Procedure Provider Procedure Date Device Type Site Robotic SI Vaginal Hyst Sacrocolpopexy L Pj CATES, Ryanne Cheatham 01/27/18 Unknown Vagina Device Identifier Serial Number Lot or Batch Number Manufacturing Date Expiration Date Distinct Identification Code MRI Safety Implantable Status Assigning Authority [id number] Unknown [id number] Unknown 09/13/20 Unknown Unknown Active GS1 Patient Care team information Care Team Personnel Name: Michael CATES , Daphne Masterson Position: [facility] Outreach Member Role: PCP Address: Address: [address] [place] [address]- Name: Sayra Sweet RN Position: [facility] RN Supv Member Role: Primary Care Nurse Name: Sarthak MUÑIZ, Jennifer Aviles Position: [facility] Onco RN Member Role: Primary Care Nurse Care Team Related Persons Name: RAJ ADAIR Address: home [address] [place] [id number] Name: LEVI ADAIR Address: [place] [address]
[2023-10-18 13:03] LABS: Alanine Aminotransferase 8 U/L (0-31); Albumin Level 3.8 g/dL (3.5-5.0); Alkaline Phosphatase 58 U/L (39-117); Anion Gap 14 (12-20); Aspartate Amino Transferase 11 U/L (5-31); Bilirubin Total 0.3 mg/dL (0.0-1.0); Blood Urea Nitrogen 19 mg/dL (9-16); Calcium 9.6 mg/dL (8.4-10.2); Carbon Dioxide 31 mmol/L (22-29); Chloride 99 mmol/L (96-108); Creatinine Clr Calc Pharmacy 60.2; Estimated Glomerular Filt Rate 48; Glucose Random 120 mg/dL (60-115); Potassium 3.3 mmol/L (3.3-5.1); Sodium 141 mmol/L (135-145); Total Protein 7.1 g/dL (6.5-8.0)
[2023-10-18 13:17] LABS: Troponin-I High Sensitivity 61.7 ng/L (<3.5-17.0)
--- NOTE | 2023-10-18 15:08 | PM.IMHP ---
History of Present Illness Date of Service: 10/18/23 Chief Complaint: Shortness of breath 63-year-old female with a past medical history of non-small cell lung cancer status post left upper lobe and right upper lobe wedge resection, with metastases to the brain, liver, and bones, is currently undergoing palliative chemotherapy under the care of Dr. Samuels last chemo on 10/15/23. She also has a history of breast cancer, depression, hepatitis C, hypertension, and COPD requiring home oxygen therapy at 3 liters and actively smoking. Additionally, she has paroxysmal atrial fibrillation and is not on anticoagulation due to a history of low platelets, as well as a history of anemia and opioid dependence. She presents to the emergency department with shortness of breath since this morning and no relief with her inhalers. She has cough with clear sputum and no fever. There is no hypoxia, and CXR show no acute finding by my review there is small mariel p. effusion. He is treated with IV steroid, bronchodilators by Neb Review of Systems Review of Systems: Gen: no fever Resp: + sob, no cough CV: no chest, no NEELY, no leg edema GI: No n/v, no abd pain Neuro: No confusion Yes all other systems are reviewed and are negative [facility] Medical History Pancytopenia New onset a-fib Cancer of upper lobe of left lung (~2020) Bilateral lung cancer Obesity History of hepatitis C Smoker Tubular adenoma of colon Pulmonary nodules History of breast cancer (~2006) Internal and external bleeding hemorrhoids Cancer of upper lobe of right lung (~2019) GERD (gastroesophageal reflux disease) Depression COPD (chronic obstructive pulmonary disease) HTN (hypertension) Family History Mother History of lung cancer Brother History of lung cancer Maternal Grandmother Breast cancer in female Maternal Aunt Breast cancer in female Daughter Thyroid cancer Surgical History History of lung surgery (~2020) History of anterior colporrhaphy (~2016) History of tubal ligation History of lumpectomy of right breast (~2006) History of colonoscopy (~2014) History of hemorrhoidectomy (~2019) History of back surgery (~2011) History of lobectomy of lung (~2019) Social History Household Members: Significant Other Household Members Other:: 2 Housing: Apartment Are you a primary managed care director to a significant other at home: No Do you presently have visiting nurse or other home services: No Unable to assess alcohol history related to: Unable to respond Alcohol intake: never Comment: rings appropriately Patient Tobacco Use Status: Former Tobacco user Tobacco use type: Cigarette Cigarette Packs Per Day: 1 Cigarettes Per Day: 10 Years Smoked: 50 Smoked in Last 30 Days: Yes Patient Interested in Nicotine Replacement: Yes Second Hand Smoke Exposure: Yes Use of substances other than those prescribed or required for medical reasons: Yes Substance Use Type: Marijuana Substance Use Frequency: Daily Last Used Substance: Days (ago) Last Used Substance Other:: gummies; edibles Currently Displaying Signs/Symptoms of Drug Intoxication Withdrawal: No Have you been hit, kicked, punched, or otherwise hurt by someone within the past year? If so, by whom?: No Do you feel safe in your current relationship?: Yes Is there a partner from a previous relationship who is making you feel unsafe now?: No Are you made to feel afraid or neglected: No Advance Directives: Yes Advance Directives on File: Yes Advance Directives Date on File: 02/02/22 Do you have a plan to hurt others: No Plan Recently lost weight without trying: Unsure Nutrition Risks: No Nutritional Risk Patient : No service: No Current occupational status: disabled Current occupational exposures/hazards: No Meds Allergies Allergy/AdvReac Type Severity Reaction Status Date / Time lisinopril [LISINOPRIL] Allergy Severe SWELLING- Verified 10/18/23 12:25 ANGIOEDEMA codeine [CODEINE] Allergy Intermediate VOMITING/HIVES, Verified 09/03/23 12:08 vomiting, hives Home Medications ?Medication ?Instructions ?Recorded ?Confirmed ?Last Taken ?Type milnacipran 50 mg tablet (Savella) 50 mg PO BID 01/18/22 10/18/23 10/18/23 History omeprazole 20 mg capsule,delayed 20 mg PO DAILY@0630 01/18/22 10/18/23 10/18/23 History release paroxetine HCl 20 mg tablet 40 mg PO BID 1010/18/23 10/18/23 History simvastatin 20 mg tablet 20 mg PO BEDTIME 02/17/22 10/18/23 10/17/23 History albuterol sulfate 90 mcg/actuation 2 puff inhalation Q6H PRN sob 06/22/23 10/18/23 07/09/23 History aerosol inhaler (Ventolin HFA) buprenorphine 2 mg-naloxone 0.5 mg 1 film sublingual DAILY 07/09/23 10/18/23 10/18/23 History sublingual film (Suboxone) docusate sodium 100 mg capsule 100 mg PO BEDTIME stool softener 07/09/23 10/18/23 10/17/23 History umeclidinium 62.5 mcg-vilanterol 1 inh inhalation DAILY 07/09/23 10/18/23 10/18/23 History 25 mcg/actuation powdr for inhalation (Anoro Ellipta) ipratropium 0.5 mg-albuterol 3 mg 3 ml inhalation Q6-8H PRN wheezing 10/18/23 10/18/23 Unknown History (2.5 mg base)/3 mL nebulization soln levothyroxine 25 mcg tablet 25 mcg PO DAILY@0630 10/18/23 10/18/23 10/18/23 History (Synthroid) Physical Exam Vital Signs and Narrative: Vital Signs: Last Vital Signs Temp 98.0 F 10/18/23 14:56 Pulse 71 10/18/23 14:56 Resp 17 10/18/23 14:56 BP 120/96 H 10/18/23 14:56 Pulse Ox 92 10/18/23 14:56 O2 Del Method Nasal Cannula 10/18/23 14:56 O2 Flow Rate 3 10/18/23 14:56 BMI result Body Mass Index 33.2 Const: Other: General: AO X 3, no acute distress Resp: CTA bilateral CVS: S1,S2,RRR GI: +BS, NT, no distention Skin: No rash Neuro: motor grossly intact Psych: appropriate affect Results Labs 10/18/23 12:41 10/18/23 12:41 Labs: Laboratory Results - last 24 hr 10/18/23 12:41 MCV 89.3 MCH 29.2 MCHC 32.7 RDW 14.7 Plt Count 182 MPV 9.3 L Immature Gran % (Auto) 0.4 Neut % (Auto) 81.4 H Lymph % (Auto) 8.7 L [place] % (Auto) 7.2 Eos % (Auto) 1.7 Baso % (Auto) 0.6 Lymph # (Auto) 0.7 L [place] # (Auto) 0.6 Eos # (Auto) 0.1 Baso # (Auto) 0.1 Abs Immat Gran (auto) 0.03 Absolute Neuts (auto) 6.5 Absolute Nucleated RBC 0.000 Nucleated RBC % (auto) 0.0 Anion Gap 14 Estim Creat Clear Calc 60.2 Estimated GFR 48 Random Glucose 120 H Calcium 9.6 D Total Bilirubin 0.3 AST 11 ALT 8 Alkaline Phosphatase 58 Troponin I High Sens 61.7 H* D Total Protein 7.1 Albumin 3.8 Assessment and Plan (1) COPD exacerbation: Status: Acute (2) Lung cancer: Qualifiers: Laterality: right Lung location: unspecified part of lung Qualified Code(s): C34.91 - Malignant neoplasm of unspecified part of right bronchus or lung Status: Acute Plan 62/F with PAF not on anticoagualation, lung CA with mets, recurently pleural effusion, underlying copd here with sob d/t copd exacerbation COPD exacerbation without hypoxic. -Bronchodilators by Neb + IV steroid -continue O2 as per home PAF with RVR, HR --rate is controlled, and not on anticoagulationr Elevated troponin I, chronically elevated, no chest pain, no ECG changes, repeat non-small cell lung cancer with met, chemo 3 days ago -outpatient follow up for paliative chemo with Dr. Samuels chronic diastolic heart failure-stable -BNP within baseline depression -continue home meds opiate dependence -continue Suboxone HTN -continue diltiazem and metoprolol HLD--simvastatin dvt prophylaxis- lovenox full code Quality Stroke Does the patient have a stroke diagnosis?: No VTE Prior VTE?: No VTE Risk Level:: Medical - moderate - high VTE Device Contraindication: Treatment Not Indicated VTE Drug Contraindication: N/A - Med Ordered
[2023-10-18] MEDS: Albuterol Sulfate (0.083%) 2.5 MG/3 ML VIAL.NEB INHALE ×2 (15:54→20:51)
--- NOTE | 2023-10-18 16:13 | PHA.MEDREC ---
Addendum entered by Brittany Martinez [facility] 10/18/23 16:19: texted dr. oliver [facility] rec complete 10/18/23 @4961 Original Note: Pharmacy Consult ? Medication Reconciliation Pharmacy has completed the medication reconciliation. SPOKE WITH PATIENT IN ED BED 11. PATIENT KNEW ALL MEDICATIONS. PATIENT TOOK ALL AM MEDICTATIONS.
[2023-10-18] MEDS: Nicotine 14 MG PATCH.TD24 TRANSDERMA (16:23)
[2023-10-18] MEDS: Enoxaparin Sodium 40 MG/0.4 ML SYRINGE SUBCUT (16:23)
[2023-10-18] MEDS: 0.9 % Sodium Chloride Flush 3 ML SYRINGE IVFLUSH ×2 (16:24→22:00)
[2023-10-18 16:47] LABS: Troponin-I High Sensitivity 63.1 ng/L (<3.5-17.0)
--- NOTE | 2023-10-18 16:47 | PC.NURSE ---
Admitting provider alerted of critical trop
--- NOTE | 2023-10-18 18:30 | PC.NURSE ---
Late entry: Pt presents from home via EMS reports SOB since she woke up this morning. Pt has hx of lung cancer on right side of chest (last Chemo this last wednesday), COPD with baseline home O2 3L NC. EMS gave duo neb en route. Pt reports SOB is when she exerts or talks for long periods. Did report one episode of substernal CP that has since resolved. Denies fevers, N/V/D, headaches, recent illnesses or falls. Does report frequent productive cough with clear sputum. Alert and oriented, breathing even and unlabored, labored with any exertion. Skin warm and dry. NSR on bedside monitoring tech, maintaining sats on her 3L O2 NC.
[2023-10-18] MEDS: methylPREDNISolone Sod Succ 40 MG/ML VIAL IVPUSH (21:36)
[2023-10-18] MEDS: Docusate Sodium 100 MG CAPSULE PO (21:37)
[2023-10-18] MEDS: Atorvastatin Calcium 10 MG TABLET PO (21:37)
[2023-10-18] MEDS: PARoxetine HCL 40 MG TABLET PO (21:37)
[2023-10-19] VITALS (9 sets, daily range): BP systolic 119–160; BP diastolic 76–87; PULSE 75–84; RESP 16–22; TEMP 36–36.4; O2SAT 91–97
[2023-10-19] MEDS: Omeprazole 20 MG CAPSULE.DR PO (05:53)
[2023-10-19] MEDS: Levothyroxine Sodium 25 MCG TABLET PO (05:53)
[2023-10-19] MEDS: Theophylline Anhydrous ER 400 MG TAB.ER.24H PO (08:36)
[2023-10-19] MEDS: Folic Acid 1 MG TABLET PO (08:36)
[2023-10-19] MEDS: dilTIAZem HCL CD 180 MG CAP.ER.24H PO (08:36)
[2023-10-19] MEDS: Potassium Chloride ER 20 MEQ TAB.ER.PRT PO (08:36)
[2023-10-19] MEDS: Buprenorphine/Naloxone 2/0.5mg FILM 1 FILM SUBLINGUAL (08:36)
[2023-10-19] MEDS: hydroCHLOROthiazide 25 MG TABLET PO (08:36)
[2023-10-19] MEDS: PARoxetine HCL 40 MG TABLET PO ×2 (08:36→20:57)
[2023-10-19] MEDS: Nicotine 14 MG PATCH.TD24 TRANSDERMA (08:36)
[2023-10-19] MEDS: Metoprolol Tartrate 50 MG TABLET PO (08:36)
[2023-10-19] MEDS: methylPREDNISolone Sod Succ 40 MG/ML VIAL IVPUSH ×2 (08:36→20:56)
[2023-10-19] MEDS: Albuterol Sulfate (0.083%) 2.5 MG/3 ML VIAL.NEB INHALE ×4 (08:37→19:45)
--- NOTE | 2023-10-19 08:39 | MHC.CM.PN ---
CM MET WITH PT AT BEDSIDE. PT LIVES WITH S/O AND IS INDEPENDENT WITH MOBILITY. PT HAS HOME 02 AT 3 L/VIA [facility]. PT HAS HOME NEBULIZER. + HCP ON FILE. PCP DR. RIVERA DP: HOME, NO SERVICES ANTICIPATED. PT HAS OWN RIDE HOME. CM WILL CONTINUE TO FOLLOW FOR ANY CHANGE TO DC PLAN/NEEDS
--- NOTE | 2023-10-19 10:13 | HO.PM.IMPN ---
Subjective Subjective Date of Service: 10/19/23 Interval History: f/u on copd exacerbation interval history: She reports feeling sob with effort Physical Exam Vital Signs: Vital Signs: Last Vital Signs Temp 96.8 F 10/19/23 09:03 Pulse 82 10/19/23 09:03 Resp 16 10/19/23 09:03 BP 140/77 H 10/19/23 09:03 Pulse Ox 97 10/19/23 09:03 O2 Del Method Room Air 10/19/23 09:03 O2 Flow Rate 4 10/19/23 07:26 BMI result Body Mass Index 33.0 General: AO X 3, no acute distress Resp: CTA bilateral, no wheeze, no increase wob CVS: S1,S2,RRR GI: +BS, NT, no distention Skin: No rash Neuro: motor grossly intact Psych: appropriate affect Objective Data Active Medications Acetaminophen (Acetaminophen 325 Mg Tablet) 650 mg PO Q6H PRN PRN Reason: Pain, Mild (Pain Scale 1-3), fever or headache Albuterol Sulfate (Albuterol Sulfate (0.083%) 2.5 Mg/3 Ml Vial.Neb) 2.5 mg INHALE RQ4H WHILE AWAKE [facility] Last Admin: 10/19/23 08:37 Dose: 2.5 mg Documented By: LIANG Albuterol Sulfate (Albuterol Sulfate (0.083%) 2.5 Mg/3 Ml Vial.Neb) 2.5 mg INHALE Q2H PRN PRN Reason: Shortness of Breath/Wheezing Atorvastatin Calcium (Atorvastatin Calcium 10 Mg Tablet) 10 mg PO BEDTIME [facility] Last Admin: 10/18/23 21:37 Dose: 10 mg Documented By: MATT Buprenorphine/Naloxone (Buprenorphine/Naloxone 2/0.5mg Film) 1 film SUBLINGUAL DAILY [facility] Last Admin: 10/19/23 08:36 Dose: 1 film Documented By: PADMINIFALinden Calcium Carbonate (Calcium Carbonate 750 Mg Tab.Chew) 750 mg PO Q4H PRN PRN Reason: Heartburn Diltiazem HCl (Diltiazem Hcl Cd 180 Mg Cap.Er.24h) 180 mg PO DAILY [facility]; Protocol Last Admin: 10/19/23 08:36 Dose: 180 mg Documented By: PADMINIFALinden Docusate Sodium (Docusate Sodium 100 Mg Capsule) 100 mg PO BEDTIME [facility] Last Admin: 10/18/23 21:37 Dose: 100 mg Documented By: MATT Enoxaparin Sodium (Enoxaparin Sodium 40 Mg/0.4 Ml Syringe) 40 mg SUBCUT Q24H [facility] Last Admin: 10/18/23 16:23 Dose: 40 mg Documented By: MAKENZIE Folic Acid (Folic Acid 1 Mg Tablet) 1 mg PO DAILY [facility] Last Admin: 10/19/23 08:36 Dose: 1 mg Documented By: KAMINI Hydrochlorothiazide (Hydrochlorothiazide 25 Mg Tablet) 25 mg PO DAILY [facility] Last Admin: 10/19/23 08:36 Dose: 25 mg Documented By: KAMINI Levothyroxine Sodium (Levothyroxine Sodium 25 Mcg Tablet) 25 mcg PO DAILY@629 [facility] Last Admin: 10/19/23 05:53 Dose: 25 mcg Documented By: YANCY Magnesium Hydroxide (Milk Of Magnesia 30 Ml Oral.Susp) 30 ml PO DAILY PRN PRN Reason: Constipation Melatonin (Melatonin 3 Mg Tablet) 6 mg PO BEDTIME PRN PRN Reason: Insomnia Methylprednisolone Sodium Succinate (Methylprednisolone Sod Succ 40 Mg/Ml Vial) 40 mg IVPUSH BID [facility] Last Admin: 10/19/23 08:36 Dose: 40 mg Documented By: KAMINI Metoprolol Tartrate (Metoprolol Tartrate 50 Mg Tablet) 50 mg PO DAILY [facility] Last Admin: 10/19/23 08:36 Dose: 50 mg Documented By: KAMINI Nicotine (Nicotine 14 Mg Patch.Td24) 14 mg TRANSDERMA DAILY [facility] Last Admin: 10/19/23 08:36 Dose: 14 mg Documented By: KAMINI Non-Formulary Medication (Milnacipran [Savella]) 50 mg PO BID [facility] Non-Formulary Medication (Umeclidinium-Vilanterol [Anoro Ellipta]) 1 inhalation INHALE DAILY [facility] Omeprazole (Omeprazole 20 Mg Capsule.Dr) 20 mg PO DAILY@629 [facility] Last Admin: 10/19/23 05:53 Dose: 20 mg Documented By: YANCY Ondansetron HCl (Ondansetron Hcl 4 Mg/2 Ml Vial) 4 mg IVPUSH Q8H PRN PRN Reason: Nausea and Vomiting Paroxetine HCl (Paroxetine Hcl 40 Mg Tablet) 40 mg PO BID [facility] Last Admin: 10/19/23 08:36 Dose: 40 mg Documented By: KAMINI Potassium Chloride (Potassium Chloride Er 20 Meq Tab.Er.Prt) 20 meq PO DAILY [facility] Last Admin: 10/19/23 08:36 Dose: 20 meq Documented By: KAMINI Sodium Chloride (0.9 % Sodium Chloride Flush 3 Ml Syringe) 3 ml IVFLUSH QSHIFT [facility] Last Admin: 10/19/23 07:18 Dose: Not Given Documented By: KAMINI Non-Admin Reason: Previously Administered Theophylline (Theophylline Anhydrous Er 400 Mg Tab.Er.24h) 400 mg PO DAILY [facility] Last Admin: 10/19/23 08:36 Dose: 400 mg Documented By: KAMINI Labs 10/18/23 12:41 10/18/23 12:41 Labs: Laboratory Results - last 24 hr 10/18/23 10/18/23 12:41 15:57 MCV 89.3 MCH 29.2 MCHC 32.7 RDW 14.7 Plt Count 182 MPV 9.3 L Immature Gran % (Auto) 0.4 Neut % (Auto) 81.4 H Lymph % (Auto) 8.7 L [place] % (Auto) 7.2 Eos % (Auto) 1.7 Baso % (Auto) 0.6 Lymph # (Auto) 0.7 L [place] # (Auto) 0.6 Eos # (Auto) 0.1 Baso # (Auto) 0.1 Abs Immat Gran (auto) 0.03 Absolute Neuts (auto) 6.5 Absolute Nucleated RBC 0.000 Nucleated RBC % (auto) 0.0 Anion Gap 14 Estim Creat Clear Calc 60.2 Estimated GFR 48 Random Glucose 120 H Calcium 9.6 D Total Bilirubin 0.3 AST 11 ALT 8 Alkaline Phosphatase 58 Troponin I High Sens 61.7 H* D 63.1 H* Total Protein 7.1 Albumin 3.8 Assessment and Plan (1) Lung cancer: Status: Acute (2) COPD exacerbation: Status: Acute Plan 62/F with PAF not on anticoagualation, lung CA with mets, recurently pleural effusion, underlying copd here with sob d/t copd exacerbation COPD exacerbation no hypoxic -Bronchodilators by Neb + IV steroid for 1 more day -continue O2 as per home PAF with RVR, HR --rate is controlled, and not on anticoagulation, recent ecg Nl SR Elevated troponin I, chronically elevated, no chest pain, no ECG changes, repeat essentially flat, no ECG changes non-small cell lung cancer with met, chemo 3 days ago -outpatient follow up for palliative chemo with Dr. Samuels CKD 2 with VIKTORIYA, improved. chronic diastolic heart failure-stable -check BNP depression -continue home meds opiate dependence -continue Suboxone HTN -continue diltiazem and metoprolol HLD--simvastatin dvt prophylaxis- lovenox full code Quality Stroke Does the patient have a stroke diagnosis?: No VTE Prior VTE?: No VTE Risk Level:: Medical - moderate - high VTE Device Contraindication: Treatment Not Indicated VTE Drug Contraindication: N/A - Med Ordered
[2023-10-19 11:07] LABS: B Type Natriuretic Peptide 325 pg/mL (<100)
[2023-10-19] MEDS: 0.9 % Sodium Chloride Flush 3 ML SYRINGE IVFLUSH (20:57)
[2023-10-19] MEDS: Atorvastatin Calcium 10 MG TABLET PO (20:57)
[2023-10-19] MEDS: Docusate Sodium 100 MG CAPSULE PO (20:57)
[2023-10-20] VITALS (10 sets, daily range): BP systolic 122–144; BP diastolic 67–88; PULSE 60–81; RESP 17–20; TEMP 36.1–36.3; O2SAT 92–100
[2023-10-20] MEDS: Levothyroxine Sodium 25 MCG TABLET PO (05:56)
[2023-10-20] MEDS: Omeprazole 20 MG CAPSULE.DR PO (05:56)
[2023-10-20] MEDS: Albuterol Sulfate (0.083%) 2.5 MG/3 ML VIAL.NEB INHALE ×4 (07:54→18:53)
[2023-10-20] MEDS: 0.9 % Sodium Chloride Flush 3 ML SYRINGE IVFLUSH ×3 (09:19→21:13)
[2023-10-20] MEDS: methylPREDNISolone Sod Succ 40 MG/ML VIAL IVPUSH ×2 (09:20→21:13)
[2023-10-20] MEDS: Metoprolol Tartrate 50 MG TABLET PO (09:23)
[2023-10-20] MEDS: Buprenorphine/Naloxone 2/0.5mg FILM 1 FILM SUBLINGUAL (09:23)
[2023-10-20] MEDS: Folic Acid 1 MG TABLET PO (09:23)
[2023-10-20] MEDS: Nicotine 14 MG PATCH.TD24 TRANSDERMA (09:23)
[2023-10-20] MEDS: dilTIAZem HCL CD 180 MG CAP.ER.24H PO (09:24)
[2023-10-20] MEDS: hydroCHLOROthiazide 25 MG TABLET PO (09:24)
[2023-10-20] MEDS: PARoxetine HCL 40 MG TABLET PO ×2 (09:24→21:13)
[2023-10-20] MEDS: Theophylline Anhydrous ER 400 MG TAB.ER.24H PO (09:24)
[2023-10-20] MEDS: Potassium Chloride ER 20 MEQ TAB.ER.PRT PO (09:24)
--- NOTE | 2023-10-20 09:50 | P.PNIM_ITS ---
Subjective Subjective Date of Service: 10/20/23 Interval History: f/u on copd exacerbation interval history: She is stilll reporting feeling short of breath Physical Exam 2 Vital Signs: Vital Signs: Last Vital Signs Temp 96.9 F 10/20/23 07:10 Pulse 77 10/20/23 09:24 Resp 18 10/20/23 07:54 BP 139/88 10/20/23 09:24 Pulse Ox 100 10/20/23 07:10 O2 Del Method Nasal Cannula 10/20/23 07:10 O2 Flow Rate 3 10/20/23 07:10 BMI result Body Mass Index 33.0 General: AO X 3, no acute distress Resp: CTA bilateral, mariel rhonchi CVS: S1,S2,RRR GI: +BS, NT, no distention Skin: No rash Neuro: motor grossly intact Psych: appropriate affect Objective Data Active Medications Acetaminophen (Acetaminophen 325 Mg Tablet) 650 mg PO Q6H PRN PRN Reason: Pain, Mild (Pain Scale 1-3), fever or headache Albuterol Sulfate (Albuterol Sulfate (0.083%) 2.5 Mg/3 Ml Vial.Neb) 2.5 mg INHALE RQ4H WHILE AWAKE [facility] Last Admin: 10/20/23 07:54 Dose: 2.5 mg Documented By: GLENN Albuterol Sulfate (Albuterol Sulfate (0.083%) 2.5 Mg/3 Ml Vial.Neb) 2.5 mg INHALE Q2H PRN PRN Reason: Shortness of Breath/Wheezing Atorvastatin Calcium (Atorvastatin Calcium 10 Mg Tablet) 10 mg PO BEDTIME [facility] Last Admin: 10/19/23 20:57 Dose: 10 mg Documented By: MELINDA Buprenorphine/Naloxone (Buprenorphine/Naloxone 2/0.5mg Film) 1 film SUBLINGUAL DAILY [facility] Last Admin: 10/20/23 09:23 Dose: 1 film Documented By: ARASH Calcium Carbonate (Calcium Carbonate 750 Mg Tab.Chew) 750 mg PO Q4H PRN PRN Reason: Heartburn Diltiazem HCl (Diltiazem Hcl Cd 180 Mg Cap.Er.24h) 180 mg PO DAILY [facility]; Protocol Last Admin: 10/20/23 09:24 Dose: 180 mg Documented By: ARASH Docusate Sodium (Docusate Sodium 100 Mg Capsule) 100 mg PO BEDTIME [facility] Last Admin: 10/19/23 20:57 Dose: 100 mg Documented By: MELINDA Enoxaparin Sodium (Enoxaparin Sodium 40 Mg/0.4 Ml Syringe) 40 mg SUBCUT Q24H [facility] Last Admin: 10/19/23 13:29 Dose: Not Given Documented By: KAMINI Non-Admin Reason: pt being d/c'ed Folic Acid (Folic Acid 1 Mg Tablet) 1 mg PO DAILY [facility] Last Admin: 10/20/23 09:23 Dose: 1 mg Documented By: ARASH Furosemide (Furosemide 40 Mg/4 Ml Vial) 40 mg IVPUSH ONCE ONE; Protocol Stop: 10/20/23 09:50 Hydrochlorothiazide (Hydrochlorothiazide 25 Mg Tablet) 25 mg PO DAILY [facility] Last Admin: 10/20/23 09:24 Dose: 25 mg Documented By: ARASH Levothyroxine Sodium (Levothyroxine Sodium 25 Mcg Tablet) 25 mcg PO DAILY@0630 [facility] Last Admin: 10/20/23 05:56 Dose: 25 mcg Documented By: MELINDA Magnesium Hydroxide (Milk Of Magnesia 30 Ml Oral.Susp) 30 ml PO DAILY PRN PRN Reason: Constipation Melatonin (Melatonin 3 Mg Tablet) 6 mg PO BEDTIME PRN PRN Reason: Insomnia Methylprednisolone Sodium Succinate (Methylprednisolone Sod Succ 40 Mg/Ml Vial) 40 mg IVPUSH BID [facility] Last Admin: 10/20/23 09:20 Dose: 40 mg Documented By: ARASH Metoprolol Tartrate (Metoprolol Tartrate 50 Mg Tablet) 50 mg PO DAILY [facility] Last Admin: 10/20/23 09:23 Dose: 50 mg Documented By: ARASH Nicotine (Nicotine 14 Mg Patch.Td24) 14 mg TRANSDERMA DAILY [facility] Last Admin: 10/20/23 09:23 Dose: 14 mg Documented By: ARASH Non-Formulary Medication (Milnacipran [Savella]) 50 mg PO BID [facility] Non-Formulary Medication (Umeclidinium-Vilanterol [Anoro Ellipta]) 1 inhalation INHALE DAILY [facility] Omeprazole (Omeprazole 20 Mg Capsule.) 20 mg PO DAILY@0630 [facility] Last Admin: 10/20/23 05:56 Dose: 20 mg Documented By: MELINDA Ondansetron HCl (Ondansetron Hcl 4 Mg/2 Ml Vial) 4 mg IVPUSH Q8H PRN PRN Reason: Nausea and Vomiting Paroxetine HCl (Paroxetine Hcl 40 Mg Tablet) 40 mg PO BID [facility] Last Admin: 10/20/23 09:24 Dose: 40 mg Documented By: ARASH Potassium Chloride (Potassium Chloride Er 20 Meq Tab.Er.Prt) 20 meq PO DAILY [facility] Last Admin: 10/20/23 09:24 Dose: 20 meq Documented By: ARASH Sodium Chloride (0.9 % Sodium Chloride Flush 3 Ml Syringe) 3 ml IVFLUSH QSHIFT [facility] Last Admin: 10/20/23 09:19 Dose: 3 ml Documented By: ARASH Theophylline (Theophylline Anhydrous Er 400 Mg Tab.Er.24h) 400 mg PO DAILY [facility] Last Admin: 10/20/23 09:24 Dose: 400 mg Documented By: ARASH Labs 10/18/23 12:41 10/18/23 12:41 Labs: Laboratory Results - last 24 hr 10/19/23 10:37 Hold Purple Top SEE NOTE B-Natriuretic Peptide 325 H Assessment and Plan (1) Lung cancer: Status: Acute (2) COPD exacerbation: Status: Acute Plan 62/F with PAF not on anticoagualation, lung CA with mets, recurently pleural effusion, underlying copd here with sob d/t copd exacerbation COPD exacerbation no hypoxic -Bronchodilators by Neb + IV steroid for 1 more day -continue O2 as per home -consider pulmonology consult PAF with RVR, HR --rate is controlled, and not on anticoagulation, recent ecg Nl SR Elevated troponin I, chronically elevated, no chest pain, no ECG changes, repeat essentially flat, no ECG changes non-small cell lung cancer with met, chemo 3 days ago -outpatient follow up for palliative chemo with Dr. Samuels CKD 2 with VIKTORIYA, improved. chronic diastolic heart failure-stable -check BNP depression -continue home meds opiate dependence -continue Suboxone HTN -continue diltiazem and metoprolol HLD--simvastatin dvt prophylaxis- lovenox full code Quality Stroke Does the patient have a stroke diagnosis?: No VTE Prior VTE?: No VTE Risk Level:: Medical - moderate - high VTE Device Contraindication: Treatment Not Indicated VTE Drug Contraindication: N/A - Med Ordered
[2023-10-20] MEDS: Furosemide 40 MG/4 ML VIAL IVPUSH (10:14)
--- NOTE | 2023-10-20 10:22 | MHC.CM.PN ---
EMR REVIEWED AND PER MD ROUNDS, POSSIBLE DISCHARGE LATER TODAY (ONC CONSULT PENDING) CM WILL CONTINUE TO FOLLOW FOR ANY CHANGE TO DC NEEDS/PLAN
[2023-10-20] MEDS: Enoxaparin Sodium 40 MG/0.4 ML SYRINGE SUBCUT (16:08)
[2023-10-20] MEDS: Docusate Sodium 100 MG CAPSULE PO (21:12)
[2023-10-20] MEDS: Atorvastatin Calcium 10 MG TABLET PO (21:13)
[2023-10-21] VITALS (10 sets, daily range): BP systolic 117–130; BP diastolic 69–79; PULSE 63–76; RESP 16–20; TEMP 36–36.6; O2SAT 93–97
[2023-10-21] MEDS: Omeprazole 20 MG CAPSULE.DR PO (05:48)
[2023-10-21] MEDS: Levothyroxine Sodium 25 MCG TABLET PO (05:48)
[2023-10-21] MEDS: Albuterol Sulfate (0.083%) 2.5 MG/3 ML VIAL.NEB INHALE ×4 (07:52→19:41)
[2023-10-21] MEDS: 0.9 % Sodium Chloride Flush 3 ML SYRINGE IVFLUSH ×2 (09:33→15:33)
[2023-10-21] MEDS: Metoprolol Tartrate 50 MG TABLET PO (09:34)
[2023-10-21] MEDS: methylPREDNISolone Sod Succ 40 MG/ML VIAL IVPUSH ×2 (09:34→21:26)
[2023-10-21] MEDS: dilTIAZem HCL CD 180 MG CAP.ER.24H PO (09:34)
[2023-10-21] MEDS: PARoxetine HCL 40 MG TABLET PO ×2 (09:35→21:26)
[2023-10-21] MEDS: Nicotine 14 MG PATCH.TD24 TRANSDERMA (09:35)
[2023-10-21] MEDS: Potassium Chloride ER 20 MEQ TAB.ER.PRT PO (09:35)
[2023-10-21] MEDS: Folic Acid 1 MG TABLET PO (09:35)
[2023-10-21] MEDS: hydroCHLOROthiazide 25 MG TABLET PO (09:35)
[2023-10-21] MEDS: Theophylline Anhydrous ER 400 MG TAB.ER.24H PO (09:35)
[2023-10-21] MEDS: Buprenorphine/Naloxone 2/0.5mg FILM 1 FILM SUBLINGUAL (09:35)
[2023-10-21] MEDS: Enoxaparin Sodium 40 MG/0.4 ML SYRINGE SUBCUT (15:32)
--- NOTE | 2023-10-21 15:43 | HO.PM.IMPN ---
Subjective Subjective Date of Service: 10/21/23 Interval History: seen and examined this morning follow up for COPD exacerbation still reporting SOB Review of Systems Review of Systems: Yes all other systems are reviewed and are negative Constitutional Constitutional: Denies chills and Denies fever(s) Cardiovascular Cardiovascular: Denies chest pain and Reports dyspnea Respiratory Respiratory: Reports dyspnea Gastrointestinal Gastrointestinal: Denies abdominal pain Physical Exam Vital Signs: Vital Signs: Last Vital Signs Temp 98 F 10/21/23 15:03 Pulse 76 10/21/23 15:39 Resp 16 10/21/23 15:39 BP 117/69 10/21/23 15:03 Pulse Ox 93 10/21/23 15:03 O2 Del Method Nasal Cannula 10/21/23 15:03 O2 Flow Rate 3 10/21/23 15:03 BMI result Body Mass Index 33.0 Const: General: cooperative, comfortable, alert and awake Nutritional Appearance: overweight Orientation/consciousness: patient oriented x3 Resp: Other: scattered wheezing Effort & Inspection: normal respiratory effort, able to speak in complete sentences, no respiratory distress and no use of accessory muscles Cardio: Rate: regular rate GI: Inspection: No distended Palpation (GI): Soft to palpation and nontender Neuro: General: patient oriented x3, moves all extremities and CN's II-XI intact bilaterally Extrem: General: Yes no pedal edema Objective Data Active Medications Acetaminophen (Acetaminophen 325 Mg Tablet) 650 mg PO Q6H PRN PRN Reason: Pain, Mild (Pain Scale 1-3), fever or headache Albuterol Sulfate (Albuterol Sulfate (0.083%) 2.5 Mg/3 Ml Vial.Neb) 2.5 mg INHALE RQ4H WHILE AWAKE [facility] Last Admin: 10/21/23 15:38 Dose: 2.5 mg Documented By: GLENN Albuterol Sulfate (Albuterol Sulfate (0.083%) 2.5 Mg/3 Ml Vial.Neb) 2.5 mg INHALE Q2H PRN PRN Reason: Shortness of Breath/Wheezing Atorvastatin Calcium (Atorvastatin Calcium 10 Mg Tablet) 10 mg PO BEDTIME [facility] Last Admin: 10/20/23 21:13 Dose: 10 mg Documented By: HORTENCIA Buprenorphine/Naloxone (Buprenorphine/Naloxone 2/0.5mg Film) 1 film SUBLINGUAL DAILY [facility] Last Admin: 10/21/23 09:35 Dose: 1 film Documented By: ARASH Calcium Carbonate (Calcium Carbonate 750 Mg Tab.Chew) 750 mg PO Q4H PRN PRN Reason: Heartburn Diltiazem HCl (Diltiazem Hcl Cd 180 Mg Cap.Er.24h) 180 mg PO DAILY [facility]; Protocol Last Admin: 10/21/23 09:34 Dose: 180 mg Documented By: ARASH Docusate Sodium (Docusate Sodium 100 Mg Capsule) 100 mg PO BEDTIME [facility] Last Admin: 10/20/23 21:12 Dose: 100 mg Documented By: HORTENCIA Enoxaparin Sodium (Enoxaparin Sodium 40 Mg/0.4 Ml Syringe) 40 mg SUBCUT Q24H [facility] Last Admin: 10/21/23 15:32 Dose: 40 mg Documented By: ARASH Folic Acid (Folic Acid 1 Mg Tablet) 1 mg PO DAILY [facility] Last Admin: 10/21/23 09:35 Dose: 1 mg Documented By: ARASH Hydrochlorothiazide (Hydrochlorothiazide 25 Mg Tablet) 25 mg PO DAILY [facility] Last Admin: 10/21/23 09:35 Dose: 25 mg Documented By: ARASH Levothyroxine Sodium (Levothyroxine Sodium 25 Mcg Tablet) 25 mcg PO DAILY@0630 [facility] Last Admin: 10/21/23 05:48 Dose: 25 mcg Documented By: HORTENCIA Magnesium Hydroxide (Milk Of Magnesia 30 Ml Oral.Susp) 30 ml PO DAILY PRN PRN Reason: Constipation Melatonin (Melatonin 3 Mg Tablet) 6 mg PO BEDTIME PRN PRN Reason: Insomnia Methylprednisolone Sodium Succinate (Methylprednisolone Sod Succ 40 Mg/Ml Vial) 40 mg IVPUSH BID [facility] Last Admin: 10/21/23 09:34 Dose: 40 mg Documented By: ARASH Metoprolol Tartrate (Metoprolol Tartrate 50 Mg Tablet) 50 mg PO DAILY [facility] Last Admin: 10/21/23 09:34 Dose: 50 mg Documented By: ARASH Nicotine (Nicotine 14 Mg Patch.Td24) 14 mg TRANSDERMA DAILY [facility] Last Admin: 10/21/23 09:35 Dose: 14 mg Documented By: ARASH Non-Formulary Medication (Milnacipran [Savella]) 50 mg PO BID [facility] Non-Formulary Medication (Umeclidinium-Vilanterol [Anoro Ellipta]) 1 inhalation INHALE DAILY [facility] Omeprazole (Omeprazole 20 Mg Penny.) 20 mg PO DAILY@0630 [facility] Last Admin: 10/21/23 05:48 Dose: 20 mg Documented By: HORTENCIA Ondansetron HCl (Ondansetron Hcl 4 Mg/2 Ml Vial) 4 mg IVPUSH Q8H PRN PRN Reason: Nausea and Vomiting Paroxetine HCl (Paroxetine Hcl 40 Mg Tablet) 40 mg PO BID [facility] Last Admin: 10/21/23 09:35 Dose: 40 mg Documented By: ARASH Potassium Chloride (Potassium Chloride Er 20 Meq Tab.Er.Prt) 20 meq PO DAILY [facility] Last Admin: 10/21/23 09:35 Dose: 20 meq Documented By: ARASH Sodium Chloride (0.9 % Sodium Chloride Flush 3 Ml Syringe) 3 ml IVFLUSH QSHIFT [facility] Last Admin: 10/21/23 15:33 Dose: 3 ml Documented By: ARASH Theophylline (Theophylline Anhydrous Er 400 Mg Tab.Er.24h) 400 mg PO DAILY [facility] Last Admin: 10/21/23 09:35 Dose: 400 mg Documented By: ARASH Labs 10/18/23 12:41 10/18/23 12:41 Assessment and Plan (1) COPD exacerbation: Status: Acute (2) Lung cancer: Status: Acute Plan 62/F with PAF not on anticoagualation, lung CA with mets, recurently pleural effusion, underlying copd here with sob d/t copd exacerbation COPD exacerbation/chronic respiratory failure Bronchodilators by Neb + IV steroids continue O2 as per home consider pulmonology consult pleural effusion chronic but increasing repeat CXR PAF with RVR, HR - rate is controlled, and not on anticoagulation, recent ecg Nl SR Elevated troponin I, chronically elevated no chest pain, no ECG changes, repeat essentially flat, no ECG changes non-small cell lung cancer with met, chemo 3 days ago outpatient follow up for palliative chemo with Dr. Samuels CKD 2 with VIKTORIYA, improved. chronic diastolic heart failure-stable depression -continue home meds opiate dependence -continue Suboxone HTN -continue diltiazem and metoprolol HLD--simvastatin dvt prophylaxis- lovenox full code Quality Stroke Does the patient have a stroke diagnosis?: No VTE Prior VTE?: No VTE Risk Level:: Medical - moderate - high VTE Device Contraindication: Treatment Not Indicated VTE Drug Contraindication: N/A - Med Ordered
[2023-10-21] MEDS: Atorvastatin Calcium 10 MG TABLET PO (21:26)
[2023-10-21] MEDS: Docusate Sodium 100 MG CAPSULE PO (21:26)
[2023-10-22 04:00] VITALS: BP 135/70; PULSE 68; RESP 18; TEMP 36; O2SAT 96
[2023-10-22] MEDS: Omeprazole 20 MG CAPSULE.DR PO (05:36)
[2023-10-22] MEDS: Levothyroxine Sodium 25 MCG TABLET PO (05:36)
[2023-10-22 07:44] VITALS: BP 138/72; PULSE 64; RESP 18; TEMP 36.2; O2SAT 98
[2023-10-22 07:58] VITALS: PULSE 64; RESP 18; O2SAT 98
[2023-10-22] MEDS: Albuterol Sulfate (0.083%) 2.5 MG/3 ML VIAL.NEB INHALE ×2 (07:58→11:32)
[2023-10-22] MEDS: dilTIAZem HCL CD 180 MG CAP.ER.24H PO (08:43)
[2023-10-22] MEDS: hydroCHLOROthiazide 25 MG TABLET PO (08:43)
[2023-10-22] MEDS: Buprenorphine/Naloxone 2/0.5mg FILM 1 FILM SUBLINGUAL (08:44)
[2023-10-22] MEDS: Folic Acid 1 MG TABLET PO (08:44)
[2023-10-22] MEDS: PARoxetine HCL 40 MG TABLET PO (08:44)
[2023-10-22] MEDS: methylPREDNISolone Sod Succ 40 MG/ML VIAL IVPUSH (08:44)
[2023-10-22] MEDS: Nicotine 14 MG PATCH.TD24 TRANSDERMA (08:44)
[2023-10-22] MEDS: Theophylline Anhydrous ER 400 MG TAB.ER.24H PO (08:44)
[2023-10-22] MEDS: 0.9 % Sodium Chloride Flush 3 ML SYRINGE IVFLUSH (08:44)
[2023-10-22] MEDS: Metoprolol Tartrate 50 MG TABLET PO (08:44)
[2023-10-22] MEDS: Potassium Chloride ER 20 MEQ TAB.ER.PRT PO (08:44)
[2023-10-22] MEDS: Acetaminophen 325 MG TABLET 650 MG PO (08:56)
[2023-10-22 11:32] VITALS: PULSE 64; RESP 18; O2SAT 96
--- NOTE | 2023-10-22 11:53 | PM.DS ---
DS: Providers Provider Date of Service: 10/22/23 Date of admission: 10/18/23 15:32 Date of discharge: 10/22/23 Primary care physician: Daphne Rodriguez MD Attending physician on discharge: Mukesh Kwan Discharging clinician: Shaneka Marie DS: Diagnosis Discharge Diagnosis (1) COPD exacerbation: Status: Acute (2) Lung cancer: Status: Acute DS: Summary Hospital Course Hospital Course: From H&P on the day of admission 63-year-old female with a past medical history of non-small cell lung cancer status post left upper lobe and right upper lobe wedge resection, with metastases to the brain, liver, and bones, is currently undergoing palliative chemotherapy under the care of Dr. Samuels last chemo on 10/15/23. She also has a history of breast cancer, depression, hepatitis C, hypertension, and COPD requiring home oxygen therapy at 3 liters and actively smoking. Additionally, she has paroxysmal atrial fibrillation and is not on anticoagulation due to a history of low platelets, as well as a history of anemia and opioid dependence. She presents to the emergency department with shortness of breath since this morning and no relief with her inhalers. She has cough with clear sputum and no fever. There is no hypoxia, and CXR show no acute finding by my review there is small mariel p. effusion. He is treated with IV steroid, bronchodilators by Neb COPD exacerbation/chronic respiratory failure Treated with Bronchodilators by Neb + IV steroids. Weaned down to baseline supplemental oxygen. Respiratory status has improved. pleural effusion Repeat chest x-ray appears improved PAF with RVR, HR - rate is controlled, and not on anticoagulation, recent ecg Nl SR Elevated troponin I, chronically elevated no chest pain, no ECG changes, repeat essentially flat, no ECG changes non-small cell lung cancer with met, chemo 3 days ago outpatient follow up for palliative chemo with Dr. Samuels CKD 2 with VIKTORIYA, improved. Time Attestation Discharge Coordination Time (in mins): 36 Quality: Safe Use of Opioids Does Pt have an Active Cancer Diagnosis on the Problem List?: No Quality: Stroke Does the patient have a stroke diagnosis?: No Physical Exam Vital Signs: Vital Signs: Last Vital Signs Temp 97.2 F 10/22/23 07:44 Pulse 64 10/22/23 11:32 Resp 18 10/22/23 11:32 BP 138/72 10/22/23 07:44 Pulse Ox 98 10/22/23 07:44 O2 Del Method Nasal Cannula 10/22/23 07:44 O2 Flow Rate 3 10/22/23 07:44 BMI result Body Mass Index 33.0 Const: General: cooperative, comfortable, alert and awake Nutritional Appearance: overweight Orientation/consciousness: patient oriented x3 Resp: Effort & Inspection: normal respiratory effort, able to speak in complete sentences, no respiratory distress and no use of accessory muscles Cardio: Rate: regular rate GI: Inspection: No distended Palpation (GI): Soft to palpation and nontender Neuro: General: patient oriented x3, moves all extremities and CN's II-XI intact bilaterally Extrem: General: Yes no pedal edema DS: Data Data Completed and Pending Completed studies during hospitalization [Text1]: Procedures Drainage of Left Pleural Cavity, Percutaneous Approach (07/09/23) Transfusion of Nonautologous Platelets into Peripheral Vein, Percutaneous Approach (01/24/22) Transfusion of Nonautologous Red Blood Cells into Peripheral Vein, Percutaneous Approach (02/18/22) Discharge Plan Discharge Anticipated Discharge Date/Time: 10/22/23 11:55 Patient Disposition: Home, Self-Care Discharge Diagnosis: acute copd exacerbation lung cancer Referrals: Daphne Rodriguez MD [Primary Care Provider] - 1 Week Discharge Medications: New prednisone 20 mg tablet 40 mg PO DAILY 5 Days Qty: 10 0RF Continued folic acid 1 mg tablet 1 mg PO DAILY Qty: 90 3RF potassium chloride [K-Tab] 20 mEq Tablet Extended Release 20 meq PO DAILY Qty: 30 0RF paroxetine HCl 20 mg tablet 40 mg PO BID omeprazole 20 mg capsule,delayed release(DR/EC) 20 mg PO DAILY@0630 Savella 50 mg tablet 50 mg PO BID simvastatin 20 mg Tablet 20 mg PO BEDTIME docusate sodium 100 mg capsule 100 mg PO BEDTIME buprenorphine-naloxone [Suboxone] 2-0.5 mg film 1 film sublingual DAILY Anoro Ellipta 62.5-25 mcg/actuation blister with device 1 inh INHALATION DAILY metoprolol ta-hydrochlorothiaz 50-25 mg tablet 1 tab PO DAILY Qty: 90 0RF diltiazem HCl 180 mg capsule,ext.rel 24h degradable 180 mg PO DAILY Qty: 90 0RF ipratropium-albuterol 0.5 mg-3 mg(2.5 mg base)/3 mL solution for nebulization 3 ml inhalation Q6-8H PRN (Reason: wheezing) levothyroxine [Synthroid] 25 mcg tablet 25 mcg PO DAILY@0630 albuterol sulfate [Ventolin HFA] 90 mcg/actuation HFA aerosol inhaler 2 puff inhalation Q6H PRN (Reason: sob) theophylline 400 mg tablet extended release 24 hr 400 mg PO DAILY 30 Days Qty: 30 6RF ipratropium bromide 42 mcg (0.06 %) spray,non-aerosol 2 spray intranasal TID-QID PRN (Reason: allergy symptoms) Qty: 15 3RF Rx Instructions: administer into each nostril Discharge Orders: Discharge Order (Routine); Ordered 10/22/23 Ordered By: Shaneka Marie Activity on Discharge: As tolerated Stand Alone Forms: Patient Portal Discharge page Print Language: Palestinian Care Plan Goals: see below Health Concerns: Acute COPD exacerbation VIKTORIYA resolved Plan of Treatment: Complete course of steroids as prescribed Follow-up outpatient with Oncology as scheduled Assessment: see discharge summary
--- NOTE | 2023-10-22 12:03 | MHC.CM.PN ---
DP: PT HAS BEEN MEDICALLY CLEARED FOR DC HOME, NO SERVICES. PT HAS OWN RIDE HOME
== END 2023-10-22 13:33 | disposition home or self-care (01) | DRG 140 ==
LOC: HO.ED 15:00 → HO.EDOVER 16:20 → HO.S3 18:21
PROVIDERS: Admitting Provider Internal Medicine; Emergency Provider Emergency Medicine; PCP Pediatrics; Visit Provider Physician Assistant Medical
DX: J44.1 Chronic obstructive pulmonary disease with (acute) exacerbation (principal); C79.51 Secondary malignant neoplasm of bone; I13.0 Hypertensive heart and chronic kidney disease with heart failure and stage 1 through stage 4 chronic kidney disease, or unspecified chronic kidney disease; C34.91 Malignant neoplasm of unspecified part of right bronchus or lung; I50.32 Chronic diastolic (congestive) heart failure; I48.0 Paroxysmal atrial fibrillation; N18.2 Chronic kidney disease, stage 2 (mild); C78.7 Secondary malignant neoplasm of liver and intrahepatic bile duct; F32.A Depression, unspecified; Z99.81 Dependence on supplemental oxygen; F11.20 Opioid dependence, uncomplicated; C79.31 Secondary malignant neoplasm of brain; Z87.891 Personal history of nicotine dependence; Z90.2 Acquired absence of lung [part of]; Z79.890 Hormone replacement therapy; Z79.899 Other long term (current) drug therapy
CPT/HCPCS: 36415; 71045; 80053; 83880; 84484; 85025; 93005; 94640; 99285; J1650; J1940; J2919

== ENCOUNTER → 2023-10-18 12:27 | Outpatient (BNV) | payer MEDICAID, SELFPAY | PROVIDERS: Admitting Provider Internal Medicine; Emergency Provider Emergency Medicine; PCP Pediatrics; Visit Provider Internal Medicine Cardiovascular Disease | DX: R06.02 Shortness of breath (principal); R94.31 Abnormal electrocardiogram [ECG] [EKG] | CPT/HCPCS: 93010 ==

== ENCOUNTER → 2023-10-18 15:32 | Outpatient (BNV) | payer MEDICAID, SELFPAY | PROVIDERS: Admitting Provider Internal Medicine; Emergency Provider Emergency Medicine; PCP Pediatrics; Visit Provider Internal Medicine | DX: C34.91 Malignant neoplasm of unspecified part of right bronchus or lung (principal); J44.1 Chronic obstructive pulmonary disease with (acute) exacerbation; N18.2 Chronic kidney disease, stage 2 (mild) | CPT/HCPCS: 99223; 99232; 99239 ==

== ENCOUNTER 2023-11-03 12:53 | Inpatient (IN) | payer MEDICAID, SELFPAY ==
[2023-11-03] VITALS (11 sets, daily range): BP systolic 112–198; BP diastolic 81–119; PULSE 78–170; RESP 18–31; TEMP 35.7–36.9; O2SAT 88–99; BMI 32.2
--- NOTE | ~2023-11-03 | CT_ITS ---
EXAMINATION: CT ANGIOGRAM OF THE CHEST WITH AND WITHOUT CONTRAST (CT PULMONARY ANGIOGRAM FOR PE) CLINICAL INFORMATION: cancer, dyspnea, dimer pos COMPARISON: CTA chest 07/09/2023 TECHNIQUE: Prior to contrast administration, noncontrast localization images were obtained. Subsequently, multidetector volumetric imaging was performed from the thoracic inlet to below the diaphragms following the administration of 65 mL Omnipaque 350 intravenous contrast. No contrast reaction reported Sagittal, coronal, and MIP oblique sagittal reformatted images were obtained on the CT workstation, uploaded to PACS, and reviewed. This CT examination was performed using dose optimization techniques as appropriate, variously including the following: *Automated exposure control *Adjustment of mA and/or kV according to patient size (this includes techniques or standardized protocols for targeted exams where dose is matched to indication/reason for exam; i.e. extremities or head) *Use of iterative reconstruction technique Total exam dose-length product 340 mGy-cm FINDINGS: QUALITY OF STUDY/CONTRAST BOLUS: Satisfactory. PULMONARY ARTERIES: No pulmonary emboli. THORACIC AORTA: No aneurysm. LUNG: Multifocal nodular and groundglass opacities in the left upper lobe, new from prior. Severe emphysema. Stable post surgical changes status post right upper lobectomy including cystic disease along the suture line and status post partial left upper lobectomy. Central airways are patent. Small left pleural effusion, improved from prior. Stable trace right pleural effusion versus pleural thickening. There is associated compressive atelectasis/consolidation in the left lower lobe, similar to prior. Stable right lower lobe 2.7 x 0.7 cm linear density (series #7 axial image 73), likely representing chronic scarring. Stable nodular densities along the posteromedial right lower lobe for example axial images 165 and 194. No pneumothorax. MEDIASTINUM: Normal heart size. No pericardial effusion. No hilar or mediastinal lymphadenopathy. No evidence of septal bowing or right heart strain. CORONARY ARTERY CALCIFICATION: None visualized on this study. CHEST WALL/AXILLA: No axillary or internal mammary lymphadenopathy. Calcified right breast lesion again seen. Right axillary surgical clips, as before. OSSEOUS STRUCTURES: No acute or suspicious osseous abnormality. Severe degenerative disc disease at T6-T7, as before. Partially visualized anterior lower cervical spinal fusion hardware. Old healed left lateral eighth rib fracture, as before. UPPER ABDOMEN: Stable 1.5 cm fat attenuating right adrenal lipid rich adenoma. No reflux of contrast into the hepatic veins to suggest elevated right heart pressures. CT/CT angio chest PE protocol IMPRESSION: 1. No evidence for pulmonary embolism. 2. Multifocal nodular and groundglass opacities in the left upper lobe, new from prior and concerning for infectious/inflammatory etiology. 3. Small left pleural effusion improved from prior with stable left lung base consolidation/atelectasis. Stable trace right pleural effusion versus pleural thickening. VTE: negative.
--- NOTE | ~2023-11-03 | XR_ITS ---
EXAMINATION: XR CHEST CLINICAL INFORMATION: Worsening work of breathing COMPARISON: 11/03/2023 TECHNIQUE: Frontal view of the chest was obtained. FINDINGS: Persistent small left pleural effusion with adjacent basilar opacity favoring atelectasis. Chronic blunting/trace pleural effusion at the right lung base. Redemonstrated suture lines in the right suprahilar region. Patchy/nodular foci in the left upper lobe on recent CT are not as well demonstrated radiographically. No evidence of pneumothorax or overt pulmonary edema. The cardiomediastinal contour is unremarkable. Fusion hardware in the lower cervical spine. XR/XR chest 1V IMPRESSION: Patchy/nodular foci in the left upper lobe on recent CT are not as well demonstrated radiographically. Persistent small left pleural effusion with adjacent basilar opacity favoring atelectasis. Chronic blunting/trace pleural effusion at the right lung base.
--- NOTE | ~2023-11-03 | XR_ITS ---
EXAMINATION: XR CHEST CLINICAL INFORMATION: Cough. Dyspnea. COMPARISON: Chest x-ray October 21, 2023 TECHNIQUE: Frontal portable view of the chest was obtained. 2:07 PM FINDINGS: Postsurgical changes of lung bilaterally. Surgical suture chains in the left and right midlungs. Chronic volume loss right hemithorax with blunting of right costophrenic angle due to pleural thickening. Persistent dense left lung base with silhouetting the diaphragm and blunting of costophrenic angle probably due to postsurgical changes/scarring in left pleural effusion. No pulmonary vascular congestion. Orthopedic plate and screw at lower cervical spine. XR/XR chest 1V IMPRESSION: 1. Persistent dense left lung base due to pleural effusion and/or scarring. 2. Postsurgical changes of lungs.
--- NOTE | 2023-11-03 13:02 | ED_ITS ---
HPI - General Adult General Chief complaint: Dyspnea Stated complaint: sob 99% 4lpm duo given Time Seen by Provider: 11/03/23 13:01 Source: patient and EMS Mode of arrival: EMS History of Present Illness ED Provider: INOCENCIA HPI narrative: 63-YEAR-OLD FEMALE HISTORY OF COPD AFIB DOES NOT APPEAR TO BE ON ANTICOAGULANTS. SHE ARRIVES BY EMS AFTER WORSENING SHORTNESS OF BREATH. SHE WAS ON HER BASELINE 2-3 L NASAL CANNULA OVER THE PAST FEW DAYS BUT SHE ESCALATED TO 4 L NASAL CANNULA DUE TO SIGNIFICANT DYSPNEA ON EXERTION. SHE DENIES ANY CHEST PAIN. HE FEELS SYMPTOMS STARTED A FEW DAYS AGO WHEN HER BROTHER WAS VISITING NOW SHE HAS GOTTEN SIGNIFICANT DYSPNEA ON EVEN MINIMAL EXERTION JUST GETTING UP OUT OF A CHAIR. NO HEMOPTYSIS. DENIES PHLEGM PRODUCTION. NO LEG EDEMA. DENIES HISTORY OF PE OR DVT. RECENT HOSPITALIZATION DISCHARGED ON THE OF THIS MONTH. WAS PURPORTEDLY ON PREDNISONE. Onset (ago): day(s) Related Data Home Medications ?Medication ?Instructions ?Recorded ?Confirmed milnacipran 50 mg tablet (Savella) 50 mg PO BID 01/18/22 11/03/23 omeprazole 20 mg capsule,delayed 20 mg PO DAILY@0630 01/18/22 11/03/23 release paroxetine HCl 20 mg tablet 40 mg PO BID 01/18/22 11/03/23 simvastatin 20 mg tablet 20 mg PO BEDTIME 02/17/22 11/03/23 albuterol sulfate 90 mcg/actuation 2 puff inhalation Q6H PRN sob 06/22/23 11/03/23 aerosol inhaler (Ventolin HFA) buprenorphine 2 mg-naloxone 0.5 mg 0.5 - 1 film sublingual DAILY 07/09/23 11/03/23 sublingual film (Suboxone) docusate sodium 100 mg capsule 100 mg PO BEDTIME PRN stool 07/09/23 11/03/23 softener umeclidinium 62.5 mcg-vilanterol 1 inh inhalation DAILY 07/09/23 11/03/23 25 mcg/actuation powdr for inhalation (Anoro Ellipta) ipratropium 0.5 mg-albuterol 3 mg 3 ml inhalation Q6H PRN wheezing 10/18/23 11/03/23 (2.5 mg base)/3 mL nebulization soln levothyroxine 25 mcg tablet 25 mcg PO DAILY@0600 10/18/23 11/03/23 (Synthroid) acetaminophen 500 mg tablet 500 mg PO DAILY PRN Pain 11/03/23 11/03/23 ipratropium bromide 42 mcg (0.06 2 spray intranasal QID PRN allergy 11/03/23 11/03/23 %) nasal spray symptoms Previous Rx's ?Medication ?Instructions ?Recorded theophylline 400 mg 400 mg PO DAILY 30 days #30 tabs 06/22/23 tablet,extended release 24 hr diltiazem HCl 180 mg 180 mg PO DAILY #90 caps 07/10/23 capsule,extended release 24 hr, controlled metoprolol tartrate 50 1 tab PO DAILY #90 tabs 07/10/23 mg-hydrochlorothiazide 25 mg tablet folic acid 1 mg tablet 1 mg PO DAILY #90 tabs 10/04/23 potassium chloride 20 mEq 20 meq PO DAILY #30 tabs 11/02/23 tablet,extended release (K-Tab) Allergies Allergy/AdvReac Type Severity Reaction Status Date / Time lisinopril [LISINOPRIL] Allergy Severe SWELLING- Verified 11/03/23 13:09 ANGIOEDEMA codeine [CODEINE] Allergy Intermediate VOMITING/HIVES, Verified 11/03/23 13:09 vomiting, hives [facility] Past Medical History Medical History Pancytopenia New onset a-fib Cancer of upper lobe of left lung (~2020) Bilateral lung cancer Obesity History of hepatitis C Smoker Tubular adenoma of colon Pulmonary nodules History of breast cancer (~2006) Internal and external bleeding hemorrhoids Cancer of upper lobe of right lung (~2019) GERD (gastroesophageal reflux disease) Depression COPD (chronic obstructive pulmonary disease) HTN (hypertension) Surgical History History of lung surgery (~2020) History of anterior colporrhaphy (~2016) History of tubal ligation History of lumpectomy of right breast (~2006) History of colonoscopy (~2014) History of hemorrhoidectomy (~2019) History of back surgery (~2011) History of lobectomy of lung (~2019) Family History Family History Mother History of lung cancer Brother History of lung cancer Maternal Grandmother Breast cancer in female Maternal Aunt Breast cancer in female Daughter Thyroid cancer Social History Social History Household Members: Significant Other Household Members Other:: 2 Housing: House Are you a primary assisted living care manager to a significant other at home: No Do you presently have visiting nurse or other home services: No Unable to assess alcohol history related to: Unable to respond Alcohol intake: never Comment: rings appropriately Patient Tobacco Use Status: Former Tobacco user Tobacco use type: Cigarette Cigarette Packs Per Day: 1 Cigarettes Per Day: 10 Years Smoked: 50 Second Hand Smoke Exposure: Yes Use of substances other than those prescribed or required for medical reasons: No Substance Use Type: Marijuana Currently Displaying Signs/Symptoms of Drug Intoxication Withdrawal: No Advance Directives: Yes Advance Directives on File: Yes Advance Directives Date on File: 02/02/22 Do you have a plan to hurt others: No Plan Recently lost weight without trying: No How much weight loss: Not applicable Eating poorly because of decreased appetite: No Nutrition screen score: 0 Nutrition Risks: No Nutritional Risk Patient : No : No service: No Current occupational status: disabled Current occupational exposures/hazards: No Physical Exam ED Vital Signs: Vital Signs - 24 hr 11/03/23 13:06 11/03/23 13:27 11/03/23 14:00 Temperature 98.4 F 98.4 F Pulse Rate 160 H 151 H 84 Respiratory Rate 31 H 22 H Blood Pressure 160/119 H 131/110 H 112/82 Pulse Oximetry 97 97 Oxygen Delivery Method Nasal Cannula Nasal Cannula Oxygen Flow Rate 3 11/03/23 14:13 11/03/23 15:48 Temperature Pulse Rate 92 96 Respiratory Rate 25 H Blood Pressure 120/84 Pulse Oximetry Oxygen Delivery Method Oxygen Flow Rate BMI result Body Mass Index 32.2 Const Other: EXAM: Gen: Alert, awake, well appearing, moderate respiratory distress Head: Atraumatic Eyes: Anicteric, Normal conjunctiva. ENT: Moist mucosa, no pallor. ? Neck: Supple. Respiratory: Mild tachypnea, diffuse bilateral inspiratory expiratory wheezing. Speaking 3-4 word sentences. Occasionally pursed lip breathing Cardiovascular: Irregularly irregular, rapid No murmurs or rub. Well perfused periphery, warm extremities. No edema. ? Abdominal: Soft, no objective distension. No palpable masses or obvious organomegaly. No focal tenderness, no guarding, no rebound tenderness or other peritoneal findings. : No flank tenderness. Neuro: Alert. Gross movement of all extremities intact. ? Vital signs: See flowsheet Medications Administered Generic Name Dose Route Start Last Admin Trade Name Freq PRN Reason Stop Dose Admin Albuterol/Ipratropium 3 ml 11/03/23 16:00 11/05/23 11:09 Albuterol/Iprat 2.5/0.5mg 3 Ml Ampul.Neb INHALE 3 ml RQ4H 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 Administration Atorvastatin Calcium 10 mg 11/04/23 21:00 11/04/23 21:58 Atorvastatin Calcium 10 Mg Tablet PO 10 mg BEDTIME WALTER Administration Buprenorphine/Naloxone 1 film 11/03/23 21:20 11/05/23 08:45 Buprenorphine/Naloxone 2/0.5mg Film SUBLINGUAL 1 film DAILY WALTER Administration Diltiazem HCl 180 mg 11/04/23 11:35 11/05/23 08:46 Diltiazem Hcl Cd 180 Mg Cap.Er.24h PO 180 mg DAILY WALTER Administration Protocol Enoxaparin Sodium 40 mg 11/03/23 17:30 11/04/23 16:30 Enoxaparin Sodium 40 Mg/0.4 Ml Syringe SUBCUT 40 mg Q24H WALTER Administration Folic Acid 1 mg 11/05/23 09:00 11/05/23 08:46 Folic Acid 1 Mg Tablet PO 1 mg DAILY WALTER Administration Guaifenesin 10 ml 11/03/23 16:44 11/05/23 05:52 Guaifenesin 200 Mg/10 Ml 10 Ml Liquid PO 10 ml Q4H PRN Administration Cough Azithromycin 500 mg/ Sodium 250 mls @ 125 mls/hr 11/03/23 17:00 11/04/23 18:30 Chloride IV Infused Q24H WALTER Infusion Ceftriaxone Sodium 1 gm/ 50 mls @ 100 mls/hr 11/03/23 19:00 11/04/23 19:00 Sodium Chloride IV Infused Q24H WALTER Infusion Levothyroxine Sodium 25 mcg 11/05/23 06:00 11/05/23 05:52 Levothyroxine Sodium 25 Mcg Tablet PO 25 mcg DAILY@0600 WALTER Administration Melatonin 6 mg 11/03/23 16:38 11/04/23 21:58 Melatonin 3 Mg Tablet PO 6 mg BEDTIME PRN Administration Insomnia Methylprednisolone Sodium Succinate 40 mg 11/04/23 06:00 11/05/23 05:52 Methylprednisolone Sod Succ 40 Mg/Ml Vial IVPUSH 40 mg Q12H WALTER Administration Metoprolol Tartrate 25 mg 11/04/23 11:45 11/05/23 08:46 Metoprolol Tartrate 25 Mg Tablet PO 25 mg BID WALTER Administration Protocol Omeprazole 20 mg 11/05/23 06:30 11/05/23 05:52 Omeprazole 20 Mg Capsule.Dr PO 20 mg DAILY@0630 WALTER Administration Paroxetine HCl 40 mg 11/04/23 21:00 11/05/23 08:45 Paroxetine Hcl 40 Mg Tablet PO 40 mg BID WALTER Administration Sodium Chloride 3 ml 11/04/23 00:00 11/05/23 08:46 0.9 % Sodium Chloride Flush 3 Ml Syringe IVFLUSH 3 ml QSHIFT WALTER Administration Theophylline 400 mg 11/05/23 09:00 11/05/23 08:45 Theophylline Anhydrous Er 400 Mg Tab.Er.24h PO 400 mg DAILY WALTER Administration Discontinued Medications Generic Name Dose Route Start Last Admin Trade Name Freq PRN Reason Stop Dose Admin Diltiazem HCl 20 mg 11/03/23 13:13 11/03/23 13:27 Diltiazem Hcl 50 Mg/10 Ml Vial IVPUSH 11/03/23 13:14 20 mg STAT STA Administration Diltiazem HCl 180 mg 11/03/23 13:57 11/03/23 14:14 Diltiazem Hcl Cd 180 Mg Cap.Er.24h PO 11/03/23 13:58 180 mg ONCE ONE Administration Protocol Diltiazem HCl 10 mg 11/03/23 13:58 11/03/23 14:13 Diltiazem Hcl 50 Mg/10 Ml Vial IVPUSH 11/03/23 13:59 10 mg STAT STA Administration Furosemide 20 mg 11/03/23 18:00 11/04/23 08:14 Furosemide 20 Mg/2 Ml Vial IVPUSH 20 mg BID@0900,1800 WALTER Administration Protocol Guaifenesin 1,200 mg 11/03/23 13:06 11/03/23 13:21 Guaifenesin La 600 Mg Tab.Er.12h PO 11/03/23 13:07 1,200 mg ONCE ONE Administration Hydromorphone HCl 1 mg 11/03/23 22:28 11/04/23 00:11 Hydromorphone Hcl 1 Mg/Ml Syringe IVPUSH 11/03/23 22:29 Not Given ONCE STA Protocol Iohexol 100 ml 11/03/23 14:55 11/03/23 14:56 Iohexol 350 Mg/Ml 100 Ml Infus..Btl IV 11/03/23 14:56 65 ml ONCE ONE Administration Lorazepam 2 mg 11/03/23 22:28 11/04/23 00:10 Lorazepam 2 Mg/Ml Vial IVPUSH 11/03/23 22:29 Not Given ONCE STA Methylprednisolone Sodium Succinate 125 mg 11/03/23 13:08 11/03/23 13:21 Methylprednisolone Sod Succ 125 Mg/2 Ml Vial IVPUSH 11/03/23 13:09 125 mg ONCE ONE Administration Medical Decision Making Medical Decision Making [facility] Narrative: 63 F with COPD, history of lung cancer it appears based on the recent discharge summary that she has metastatic disease the patient seems to be unaware of this. About a year and a half ago she had a wedge resection of lung. She is currently on palliative chemotherapy she has an appointment on Wednesday for this. Shortness of breath began sounds like at least a few days ago no recent travel no clinical signs of DVT but this was a concern for possible underlying PE given the cancer. D-dimer will be sent. Patient is in AFib RVR on arrival she tells me that she was unable to take her diltiazem dose this morning I will give her an IV bolus and p.o. dose as well. Plan for a chest x-ray to evaluate for fusion, infiltrate, pneumothorax. She has wheezing bilaterally I will give her methylprednisolone and DuoNeb including repeat dose as needed. Patient feels subjectively she needs to be admitted due to severe dyspnea even on minimal exertion. We will try to ambulate her and see if she becomes profoundly hypoxic on her baseline oxygen. Differential Diagnosis Differential Diagnoses: The differential diagnosis associated with the presentation includes COPD, asthma, PE, worsening cancer, effusion, pneumothorax, acute on chronic hypoxic respiratory failure, AFib with RVR, hypovolemia, dehydration Admission/Observation Consideration of admission/observation: Escalation of care including admission/observation considered Lab Data [facility] Lab Attestation statement: I reviewed the patient's lab results. 11/04/23 06:24 11/05/23 09:19 Labs: Lab Results 11/03/23 11/03/23 Range/Units 13:11 16:06 WBC 10.6 (4.8-10.8) X10*3/uL RBC 3.89 L (4.20-5.50) X10*6/uL Hgb 11.4 L (12.0-16.0) g/dl Hct 35.4 L (37.0-47.0) % MCV 91.0 (80.0-98.0) fL MCH 29.3 (27.0-33.0) pg MCHC 32.2 (31.0-35.0) g/dl RDW 15.3 (11.0-16.0) % Plt Count 206 (160-400) X10*3/uL MPV 10.1 (9.4-12.3) fL Immature Gran % (Auto) 0.5 H (0.0-0.4) % Neut % (Auto) 77.2 H (45-73) % Lymph % (Auto) 10.0 L (20-40) % Rusk % (Auto) 10.5 (2-11) % Eos % (Auto) 1.3 (0-4) % Baso % (Auto) 0.5 (0-2) % Lymph # (Auto) 1.1 L (1.2-4.9) X10*3/uL Rusk # (Auto) 1.1 (0.1-1.2) X10*3/uL Eos # (Auto) 0.1 (0.0-0.4) X10*3/uL Baso # (Auto) 0.1 (0.0-0.2) X10*3/uL Abs Immat Gran (auto) 0.05 H (0.00-0.03) X10*3/uL Absolute Neuts (auto) 8.2 (2.0-8.3) x10*3/uL Absolute Nucleated RBC 0.000 (0.0-0.012) X10*3/uL Nucleated RBC % (auto) 0.0 (0.0-0.2) /100WBC PT 12.1 (11.1-13.3) SEC INR 1.0 (0.9-1.1) APTT 29.1 (26.0-36.8) SEC D-Dimer High Sensitivty 1252 NG/ML Sodium 139 (135-145) mmol/L Potassium 4.1 D (3.3-5.1) mmol/L Chloride 101 (96-108) mmol/L Carbon Dioxide 28 (22-29) mmol/L Anion Gap 14 (12-20) BUN 15 (9-16) mg/dL Creatinine 1.33 (0.5-1.4) mg/dL Estim Creat Clear Calc 50.7 Estimated GFR 40 Random Glucose 136 H (60-115) mg/dL Calcium 9.5 (8.4-10.2) mg/dL Troponin I High Sens 64.3 H* 57.4 H* (<3.5-17.0) ng/L B-Natriuretic Peptide 613 H (<100) pg/mL Procalcitonin 0.05 ng/mL Independent Interpretation I performed an independent interpretation of an: EKG (Initial ECG 13 10, AFib with RVR rate 145, QTC 397. No acute ischemic changes) and Plain X-Ray Interpretation: US: EMERGENCY ULTRASOUND INTERPRETATION-Limited Echocardiography [This study was ordered, performed, and interpreted by myself. The study reveals: Impression: NORMAL LV FUNCTION, NO RV DYSFUNCTION, NO PERICARDIAL EFFUSION] [Emergent Cardiac for Indication: Views Used: PLAX, PSSA, A4, SX, IVC Pericardial Effusion/Tamponade Findings: NONE RV Dilation (> LV diam in 4ch apical): NONE Global LV Fxn: NORMAL IVC Dilation and Resp Variation: NORMAL Performed by: MD Mildred Images were stored on EMR through IMN image archive software. [id number]] __ Compared to cardiology report from 01/29/2022 echocardiogram at that time with normal LV function and moderate diastolic dysfunction. This indicates likely HFpEF diagnosis. Independent Historian Clinical information obtained from an independent historian. History obtained from or confirmed by: EMS External Record Review External record reviewed: Inpatient record Most recent discharge summary Chronic Conditions Patient?s care impacted by: Cancer Discharge Plan Discharge Clinical Impression: COPD exacerbation, Acute exacerbation of chronic obstructive airways disease Patient Disposition: Admitted as Observation Interventions: Admission Worksheet (ED) Last Done: 11/03/23 19:44 Discharge Date/Time: 11/03/23 20:57
--- NOTE | 2023-11-03 13:06 | ECG_ITS ---
Test Reason : tachycardia Blood Pressure : / mmHG Vent. Rate : 145 BPM Atrial Rate : 000 BPM P-R Int : 000 ms QRS Dur : 064 ms QT Int : 256 ms P-R-T Axes : 000 045 066 degrees QTc Int : 397 ms Atrial fibrillation with rapid ventricular response Nonspecific ST abnormality Abnormal ECG When compared with ECG of 18-OCT-2023 12:30, Atrial fibrillation has replaced Sinus rhythm Vent. rate has increased BY 67 BPM Referred By: Luan Levy Electronically Signed By:KALIE GAMA
[2023-11-03 13:15] LABS: MANUAL DIFF FLAG NO
[2023-11-03 13:19] LABS: Basophils Absolute Auto 0.1 X10*3/uL (0.0-0.2); Basophils Percent Auto 0.5 % (0-2); Eosinophils Absolute Auto 0.1 X10*3/uL (0.0-0.4); Eosinophils Percent Auto 1.3 % (0-4); Hematocrit 35.4 % (37.0-47.0); Hemoglobin 11.4 g/dl (12.0-16.0); Imm Gran Abs Auto 0.05 X10*3/uL (0.00-0.03); Imm Gran Pct Auto 0.5 % (0.0-0.4); Lymphocytes Absolute Auto 1.1 X10*3/uL (1.2-4.9); Mean Corpuscular HGB Conc 32.2 g/dl (31.0-35.0); Mean Corpuscular Hemoglobin 29.3 pg (27.0-33.0); Mean Platelet Volume 10.1 fL (9.4-12.3); Monocytes Absolute Auto 1.1 X10*3/uL (0.1-1.2); Monocytes Percent Auto 10.5 % (2-11); Neutrophils Absolute Auto 8.2 x10*3/uL (2.0-8.3); Neutrophils Percent Auto 77.2 % (45-73); Platelet Count 206 X10*3/uL (160-400); Red Blood Count 3.89 X10*6/uL (4.20-5.50); Red Cell Distribution Width 15.3 % (11.0-16.0); White Blood Count 10.6 X10*3/uL (4.8-10.8)
[2023-11-03] MEDS: methylPREDNISolone Sod Succ 125 MG/2 ML VIAL IVPUSH (13:21)
[2023-11-03] MEDS: guaiFENesin LA 600 MG TAB.ER.12H 1200 MG PO (13:21)
[2023-11-03 13:25] LABS: Prothrombin Time 12.1 SEC (11.1-13.3)
[2023-11-03 13:27] LABS: Partial Thromboplastin Time 29.1 SEC (26.0-36.8)
[2023-11-03] MEDS: dilTIAZem HCL 50 MG/10 ML VIAL 20 MG IVPUSH (13:27)
[2023-11-03 13:44] LABS: B Type Natriuretic Peptide 613 pg/mL (<100)
[2023-11-03 13:47] LABS: D Dimer High Sensitivity 1252 NG/ML
[2023-11-03 14:00] LABS: Troponin-I High Sensitivity 64.3 ng/L (<3.5-17.0)
[2023-11-03 14:01] LABS: Anion Gap 14 (12-20); Blood Urea Nitrogen 15 mg/dL (9-16); Calcium 9.5 mg/dL (8.4-10.2); Carbon Dioxide 28 mmol/L (22-29); Chloride 101 mmol/L (96-108); Creatinine Clr Calc Pharmacy 50.7; Estimated Glomerular Filt Rate 40; Glucose Random 136 mg/dL (60-115); Potassium 4.1 mmol/L (3.3-5.1); Sodium 139 mmol/L (135-145)
[2023-11-03] MEDS: dilTIAZem HCL 50 MG/10 ML VIAL 10 MG IVPUSH (14:13)
[2023-11-03] MEDS: dilTIAZem HCL CD 180 MG CAP.ER.24H PO (14:14)
[2023-11-03] MEDS: iohexoL 350 MG/ML 100 ML INFUS..BTL IV (14:56)
[2023-11-03] MEDS: Albuterol/Iprat 2.5/0.5MG 3 ML AMPUL.NEB INHALE ×2 (15:47→21:32)
--- NOTE | 2023-11-03 16:01 | P.HPHOSP_ITS ---
History of Present Illness Date of Service: 11/03/23 Attending physician on admission: Mukesh Kwan Chief Complaint: johnston 63-year-old female with a past medical history of non-small cell lung cancer status post left upper lobe and right upper lobe wedge resection, with metastases to the brain, liver, and bones, is currently undergoing palliative chemotherapy under the care of Dr. Samuels last chemo on 10/15/23. She also has a history of breast cancer, depression, hepatitis C, hypertension, and COPD requiring home oxygen therapy at 3 liters and actively smoking. Additionally, she has paroxysmal atrial fibrillation and is not on anticoagulation due to a history of low platelets, as well as a history of anemia and opioid dependence. SHe was recently admitted for COPD exacebation adndischarged on po steroids on 10/22/23. Reports feeling better but then last night developed significant johnston with wheezing. Reports desaturating to the mid 80s and requiring increased use of supplemental O2 at 4 L. Has also noted some increasing bilateral lower extremity edema. Denies orthopnea or PND. Does have productive cough which is different from baseline but also reports she just quit smoking 2 weeks ago. Sputum is clear/white in color. No fevers, chills, recent illness, sore throat, congestion, abdominal pain, nausea, vomiting, diarrhea, lightheadedness, palpitations, chest pain. On arrival, was very tachycardic 0160, tachypneic to 31. She did desaturate to 89% with ambulation on 4 L supplemental O2. She is afebrile. There is no leukocytosis. Renal function is baseline, electrolyte levels are normal. BNP 613. Initial troponin 64.3, repeat pending but is noted to have a chronic troponin leak. CTA chest radiology report pending but appears negative for PE with left-sided pleural effusion that appears stable compared to prior imaging studies. There does not appear to be any focal consolidation. EKG shows atrial fibrillation with RVR, rate 145, no ST or depressions. In the ED, has received guaifenesin, 20 mg IV diltiazem x1, 10 mg IV diltiazem x1, and then started on 180 mg diltiazem p.o.. Also given 125 mg IV methylprednisolone and DuoNeb. Review of Systems 2 Review of Systems: Yes all other systems are reviewed and are negative [facility] Medical History Pancytopenia New onset a-fib Cancer of upper lobe of left lung (~2020) Bilateral lung cancer Obesity History of hepatitis C Smoker Tubular adenoma of colon Pulmonary nodules History of breast cancer (~2006) Internal and external bleeding hemorrhoids Cancer of upper lobe of right lung (~2019) GERD (gastroesophageal reflux disease) Depression COPD (chronic obstructive pulmonary disease) HTN (hypertension) Family History Mother History of lung cancer Brother History of lung cancer Maternal Grandmother Breast cancer in female Maternal Aunt Breast cancer in female Daughter Thyroid cancer Surgical History History of lung surgery (~2020) History of anterior colporrhaphy (~2016) History of tubal ligation History of lumpectomy of right breast (~2006) History of colonoscopy (~2014) History of hemorrhoidectomy (~2019) History of back surgery (~2011) History of lobectomy of lung (~2019) Social History Household Members: Significant Other Household Members Other:: 2 Housing: Apartment Are you a primary weekend caregiver to a significant other at home: No Do you presently have visiting nurse or other home services: No Unable to assess alcohol history related to: Unable to respond Alcohol intake: never Comment: rings appropriately Patient Tobacco Use Status: Former Tobacco user Tobacco use type: Cigarette Cigarette Packs Per Day: 1 Cigarettes Per Day: 10 Years Smoked: 50 Second Hand Smoke Exposure: Yes Substance Use Type: Marijuana Advance Directives: Yes Advance Directives on File: Yes Advance Directives Date on File: 02/02/22 Do you have a plan to hurt others: No Plan service: No Current occupational status: disabled Current occupational exposures/hazards: No Meds Allergies Allergy/AdvReac Type Severity Reaction Status Date / Time lisinopril [LISINOPRIL] Allergy Severe SWELLING- Verified 11/03/23 13:09 ANGIOEDEMA codeine [CODEINE] Allergy Intermediate VOMITING/HIVES, Verified 11/03/23 13:09 vomiting, hives Active Medications: Current Medications Albuterol/Ipratropium (Albuterol/Iprat 2.5/0.5mg 3 Ml Ampul.Neb) 3 ml INHALE RQ4H 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 Last Admin: 11/03/23 15:47 Dose: 3 ml Home Medications ?Medication ?Instructions ?Recorded ?Confirmed ?Last Taken ?Type milnacipran 50 mg tablet (Savella) 50 mg PO BID 01/18/22 11/03/23 10/18/23 History omeprazole 20 mg capsule,delayed 20 mg PO DAILY@0630 01/18/22 11/03/23 10/18/23 History release paroxetine HCl 20 mg tablet 40 mg PO BID 01/18/22 11/03/23 10/18/23 History simvastatin 20 mg tablet 20 mg PO BEDTIME 02/17/22 11/03/23 11/02/23 History albuterol sulfate 90 mcg/actuation 2 puff inhalation Q6H PRN sob 06/22/23 11/03/23 07/09/23 History aerosol inhaler (Ventolin HFA) buprenorphine 2 mg-naloxone 0.5 mg 0.5 - 1 film sublingual DAILY 07/09/23 11/03/23 11/02/23 History sublingual film (Suboxone) docusate sodium 100 mg capsule 100 mg PO BEDTIME stool softener 07/09/23 11/03/23 11/02/23 History umeclidinium 62.5 mcg-vilanterol 1 inh inhalation DAILY 07/09/23 11/03/23 11/02/23 History 25 mcg/actuation powdr for inhalation (Anoro Ellipta) ipratropium 0.5 mg-albuterol 3 mg 3 ml inhalation Q6-8H PRN wheezing 10/18/23 11/03/23 Unknown History (2.5 mg base)/3 mL nebulization soln levothyroxine 25 mcg tablet 25 mcg PO DAILY@0600 10/18/23 11/03/23 10/18/23 History (Synthroid) Physical Exam 2 Vital Signs and Narrative: Vital Signs: Last Vital Signs Temp 98.4 F 11/03/23 14:00 Pulse 96 11/03/23 15:48 Resp 25 H 11/03/23 15:48 BP 120/84 11/03/23 14:13 Pulse Ox 97 11/03/23 14:00 O2 Del Method Nasal Cannula 11/03/23 14:00 O2 Flow Rate 3 07/24/24 14:00 Oxygen Flow Rate 3 11/03/23 13:06 BMI result Body Mass Index 32.2 Constitutional - Awake and Alert, No apparent distress Eyes - PERRLA, EOMI Cardiovascular - S1S2, RRR, 1+ ble edema Respiratory - Normal lung expansion, Normal respiratory effort, No respiratory distress, diminished left base with bilateral expiratory wheezing Gastrointestinal - NT / ND; +BS; No rebound or guarding Extremities - no calf tenderness bilaterally, no swelling Skin - Warm/Dry Neurological - Alert & oriented x3 Results Labs 11/03/23 13:11 11/03/23 13:11 Labs: Laboratory Results - last 24 hr 11/03/23 13:11 MCV 91.0 MCH 29.3 MCHC 32.2 RDW 15.3 Plt Count 206 MPV 10.1 Immature Gran % (Auto) 0.5 H Neut % (Auto) 77.2 H Lymph % (Auto) 10.0 L Sutton % (Auto) 10.5 Eos % (Auto) 1.3 Baso % (Auto) 0.5 Lymph # (Auto) 1.1 L Sutton # (Auto) 1.1 Eos # (Auto) 0.1 Baso # (Auto) 0.1 Abs Immat Gran (auto) 0.05 H Absolute Neuts (auto) 8.2 Absolute Nucleated RBC 0.000 Nucleated RBC % (auto) 0.0 PT 12.1 INR 1.0 APTT 29.1 D-Dimer High Sensitivty 1252 Anion Gap 14 Estim Creat Clear Calc 50.7 Estimated GFR 40 Random Glucose 136 H Calcium 9.5 Troponin I High Sens 64.3 H* B-Natriuretic Peptide 613 H Assessment and Plan (1) Acute and chronic respiratory failure: Status: Acute (2) CHF exacerbation: Status: Acute (3) Acute exacerbation of chronic obstructive airways disease: Status: Acute Plan 63-year-old female with a past medical history of non-small cell lung cancer status post left upper lobe and right upper lobe wedge resection, with metastases to the brain, liver, and bones, is currently undergoing palliative chemotherapy under the care of Dr. Samuels last chemo on 10/15/23. She also has a history of breast cancer, depression, hepatitis C, hypertension, and COPD requiring home oxygen therapy at 3 liters and actively smoking. Additionally, she has paroxysmal atrial fibrillation and is not on anticoagulation due to a history of low platelets, as well as a history of anemia and opioid dependence. Pt admitted for acute on chronic hypoxemic respiratory failure secondary to COPD exacerbation and CHF exacerbation initially in atrial fibrillation with RVR # acute on chronic hypoxemic respiratory failure secondary to COPD and CHF exacerbation -continue supplemental O2 to maintain oximetry 88-92% -check RPP -IV methylprednisolone 40 mg b.i.d. -initiate IV Lasix 20 mg b.i.d. -DuoNebs q.4h while awake -CTA chest pending but appears negative for PE or focal consolidation -IV azithromycin for pleiotropic effect (initiated 11/02) -continue maintenance inhalers -update echocardiogram -cardiac diet -monitor I&O -follow renal function/lytes, trend BNP # paroxysmal atrial fibrillation with RVR -rate controlled on admission -not on anticoagulation due to history of thrombocytopenia and anemia -continue metoprolol, diltiazem for rate -update echocardiogram -monitor on telemetry # chronically elevated troponins -no chest pain, EKG without any acute ischemic changes -initial tropes 64, repeat pending -monitor on telemetry # metastatic [id number] lung cancer -s/p wedge resection of the left and right upper lobes with metastasis to brain, liver, and bones on palliative chemotherapy, last chemo 10/14 -outpatient follow-up with Dr. Samuels # hypertension -continue home meds # mood disorder -continue home medications # opioid dependence -= continue Suboxone # HLD -statin DVT prophylaxis-Lovenox Full code Patient requires inpatient stay at least 2 midnights for management of acute on chronic hypoxemic respiratory failure secondary to COPD and CHF exacerbation requiring IV diuresis, IV steroids, close monitoring of respiratory status to monitor forearm prevent decompensation. Will also require ongoing cardiac monitoring given patient was in paroxysmal atrial fibrillation with RVR on arrival rate now controlled Quality Stroke Does the patient have a stroke diagnosis?: No VTE Prior VTE?: No VTE Risk Level:: Medical - moderate - high VTE Device Contraindication: Treatment Not Indicated VTE Drug Contraindication: N/A - Med Ordered
--- NOTE | 2023-11-03 16:18 | PC.NURSE ---
ambulated in the room to the commode on the baseline 3L, oxygen dropped to 88% and patient became tachypneic. now resting in bed feeling much better at this time.
[2023-11-03 16:45] LABS: Troponin-I High Sensitivity 57.4 ng/L (<3.5-17.0)
--- NOTE | 2023-11-03 16:57 | PHA.MEDREC ---
Pharmacy Consult ? Medication Reconciliation Pharmacy has completed the medication reconciliation. Confirmed medications with patient. She was able to confirm her Suboxone 2mg film and she stated to me that she will sometimes take 1/2-1 film depending on how shes feeling. She also couldnt remember what medications she took this morning but remembered some due to her SOB and she just came here and didnt look at what she took.
[2023-11-03] MEDS: Enoxaparin Sodium 40 MG/0.4 ML SYRINGE SUBCUT (18:45)
[2023-11-03] MEDS: Furosemide 20 MG/2 ML VIAL IVPUSH (18:45)
[2023-11-03] MEDS: Azithromycin 500 MG in 0.9 % Sodium Chloride 250 ML 125 MG IV (18:45)
[2023-11-03 19:28] LABS: Procalcitonin 0.05 ng/mL
--- NOTE | 2023-11-03 19:39 | PC.NURSE ---
delay in 1900 antibiotics due to one currently running at this time
[2023-11-03] MEDS: Buprenorphine/Naloxone 2/0.5mg FILM 1 FILM SUBLINGUAL (21:52)
[2023-11-03] MEDS: Melatonin 3 MG TABLET 6 MG PO (21:54)
[2023-11-03] MEDS: cefTRIAXone sodium 1 GM in 0.9 % Sodium Chloride 50 ML IV (21:58)
[2023-11-04] VITALS (12 sets, daily range): BP systolic 104–145; BP diastolic 62–91; PULSE 62–122; RESP 18–20; TEMP 36.3–36.7; O2SAT 91–100; BMI 31.7
[2023-11-04] MEDS: guaiFENesin 200 MG/10 ML 10 ML LIQUID PO ×2 (03:21→14:40)
[2023-11-04] MEDS: methylPREDNISolone Sod Succ 40 MG/ML VIAL IVPUSH ×2 (06:05→18:12)
[2023-11-04 06:49] LABS: Basophils Percent Auto 0.3 % (0-2); Hematocrit 31.4 % (37.0-47.0); Hemoglobin 10.3 g/dl (12.0-16.0); Imm Gran Abs Auto 0.05 X10*3/uL (0.00-0.03); Imm Gran Pct Auto 0.5 % (0.0-0.4); Lymphocytes Absolute Auto 0.5 X10*3/uL (1.2-4.9); Lymphocytes Percent Auto 4.8 % (20-40); MANUAL DIFF FLAG SCAN; Mean Corpuscular HGB Conc 32.8 g/dl (31.0-35.0); Mean Corpuscular Hemoglobin 29.4 pg (27.0-33.0); Mean Corpuscular Volume 89.7 fL (80.0-98.0); Monocytes Absolute Auto 0.4 X10*3/uL (0.1-1.2); Monocytes Percent Auto 4.3 % (2-11); Neutrophils Percent Auto 90.1 % (45-73); Platelet Count 194 X10*3/uL (160-400); Red Cell Distribution Width 15.2 % (11.0-16.0); SCAN SMEAR FLAG 1
--- NOTE | 2023-11-04 07:00 | CA_ITS ---
Transthoracic Echocardiogram Patient (Last, First, Middle): Elida Schumacher P Gender: Female Date of : 1960 Age: 63 Procedure Date: 11/04/2023 Procedure Type: Transthoracic Echocardiogram Location: [facility] – [place] Height: 170.18 cm Weight: 91.63 kg BSA: 2.03 m2 Heart Rate: bpm BP: 116 / 84 mmHg Calibration Checker: SB Referring MD: Susie CHINO Symptoms: chf exacerbation, afibrvr Study Quality: Adequate w contrast ECG Rhythm: Atrial Fibrillation w RVR Conclusions: - The left ventricular systolic function is normal. The visually estimated ejection fraction is between 60-65%. - There is moderate calcification of the aortic valve. There is mild aortic valve stenosis. - There is severe mitral annular calcification. - Mild pulmonary hypertension is present. Findings Procedure Information Contrast agent, definity, is being given per protocol without apparent complications. Left Ventricle Normal left ventricular cavity size. There is mildly increased left ventricular wall thickness. The left ventricular systolic function is normal. The visually estimated ejection fraction is between 60-65%. There is no evidence of regional wall motion abnormalities. Diastolic function is indeterminate on the basis of available data. Right Ventricle Normal right ventricular cavity size and systolic function. Atria Both atria are normal in size. Aortic Valve There is moderate calcification of the aortic valve. There is mild aortic valve stenosis. There is no aortic valve regurgitation. Mitral Valve There is severe mitral annular calcification. There is no mitral valve regurgitation. There is no mitral valve stenosis. Pulmonic Valve The pulmonic valve is likely normal. Tricuspid Valve There is mild tricuspid valve regurgitation. Mild pulmonary hypertension is present. Great Vessels There is mild dilatation of the ascending aorta measuring 3.80 cm. Venous The inferior vena cava is normal in size and collapses less than 50% with inspiration. Pericardium/Pleural There is no evidence of pericardial effusion. Prior Study Comparison Changes noted compared to prior study dated: 01/19/2022. Mild pulmonary hypertension noted. Measurements 2D Linear Measurements IVSd: 1.14 0.6-0.9/0.6-1.0 cm LVIDd: 4.33 3.9-5.3/4.2-5.9 cm LVIDd Index: 2.13 2.4-3.2/2.2-3.1 cm/m2 LVIDs: 3.15 2.0-3.6 cm LVPWd: 1.17 0.7-1.1 cm LA Diam: 4.20 2.7-3.8/3.0-4.0 cm LAIDs Index: 2.07 1.5-2.3 cm/m2 LV Mass: 220.04 67-162/88-224 g LV Mass Index: 108.39 43-95/49-115 g/m2 LVOT Diam: 2.30 3.0+(-)1.3 cm 2D Systolic Function EF 4C: 59.20 >55% EF 2C: 73.80 >55% EF BiP: 67.30 >55% Mitral Valve MV VTI: 0.24 MV Pk Juan Carlos: 1.49 MV Mn Juan Carlos: 0.90 MV Pk Grad: 9.00 MV Mn Grad: 4.00 MV Pk E: 1.48 MVA Continuity: 2.63 Aortic Valve AoV Pk Juan Carlos: 2.01 AoV Mn Juan Carlos: 1.33 AoV VTI: 0.27 AoV Pk Grad: 21.00 Aov Mn Grad: 12.00 ABIGAIL Cont.VTI: 1.58 LVOT LVOT Pk Juan Carlos: 0.94 LVOT Mn Juan Carlos: 0.64 LVOT VTI: 0.15 LVOT Pk Grad: 3.00 LVOT Mn Grad: 2.00 LVOT Diam: 2.30 LVOT Area: 4.15 Diastolic Function MV Pk E: 1.48 Right Ventricle TAPSE (mm): 18.90 TVS' Juan Carlos: 13.80 Tricuspid Valve TR Pk Juan Carlos: 3.29 TR Pk Grad: 43.00 RA Press: 8.00 RVSP: 51.00 Great Vessels Aorta Sinus of Valsalva: 3.30 2.0-3.5 cm Ao Asc: 3.80 2.1-3.4 cm Pulmonary Valve PV Pk Juan Carlos: 0.82 Peak PV Grad: 3.00 Updated in Other Vendor System with Status of Final Leroy Swain MD electronically signed on 11/04/2023 12:17:03 PM with status of Final
[2023-11-04 07:10] LABS: Anion Gap 20 (12-20); Blood Urea Nitrogen 27 mg/dL (9-16); Carbon Dioxide 23 mmol/L (22-29); Chloride 101 mmol/L (96-108); Creatinine Clr Calc Pharmacy 42.9; Estimated Glomerular Filt Rate 34; Glucose Random 146 mg/dL (60-115); Potassium 3.8 mmol/L (3.3-5.1); Sodium 140 mmol/L (135-145)
[2023-11-04 07:48] LABS: SLIDE REVIEW VERIFIED
[2023-11-04] MEDS: Albuterol/Iprat 2.5/0.5MG 3 ML AMPUL.NEB INHALE ×4 (08:04→18:55)
[2023-11-04] MEDS: 0.9 % Sodium Chloride Flush 3 ML SYRINGE IVFLUSH ×3 (08:13→21:59)
[2023-11-04] MEDS: Furosemide 20 MG/2 ML VIAL IVPUSH (08:14)
[2023-11-04] MEDS: Buprenorphine/Naloxone 2/0.5mg FILM 1 FILM SUBLINGUAL (08:35)
--- NOTE | 2023-11-04 08:41 | MHC.CM.PN ---
Patient lives in a house with her Significant Other and she is receiving Palliative Chemo, Suboxone, and home O2 through [facility].Home/resume said services is the goal and CM has initiated and will follow for dc planning. PCP is Dr. Daphne Rodriguez
[2023-11-04 11:22] LABS: Adenovirus PCR Not Detected (Not Detect.); Bordetella parapertussis PCR Not Detected (Not Detect.); Bordetella pertussis PCR Detected (Not Detect.); Chlamydia pneumoniae PCR Not Detected (Not Detect.); Coronavirus 229E PCR Not Detected (Not Detect.); Coronavirus HKU1 PCR Not Detected (Not Detect.); Coronavirus NL63 PCR Not Detected (Not Detect.); Coronavirus OC43 PCR Not Detected (Not Detect.); Human metapneumovirus PCR Not Detected (Not Detect.); Influenza A PCR Not Detected (Not Detect.); Influenza B PCR Not Detected (Not Detect.); Mycoplasma pneumoniae PCR Not Detected (Not Detect.); Parainfluenza 1 PCR Not Detected (Not Detect.); Parainfluenza 2 PCR Not Detected (Not Detect.); Parainfluenza 3 PCR Not Detected (Not Detect.); Parainfluenza 4 PCR Not Detected (Not Detect.); RSV PCR Not Detected (Not Detect.); Rhino/Enterovirus PCR Detected (Not Detect.)
[2023-11-04 11:33] LABS: SARS-CoV-2 PCR Not Detected (Not Detect.)
[2023-11-04] MEDS: dilTIAZem HCL CD 180 MG CAP.ER.24H PO (11:51)
[2023-11-04] MEDS: Metoprolol Tartrate 25 MG TABLET PO ×2 (11:52→21:57)
--- NOTE | 2023-11-04 13:45 | HO.PM.IMPN ---
Subjective Subjective Date of Service: 11/04/23 Interval History: Seen and examined this morning Follow-up for pneumonia, respiratory failure Patient reports that she was taking care of her grandson who tested positive for pertussis --> respiratory pathogen panel ordered, positive for pertussis and rhino virus Patient reports ongoing shortness of breath, cough Review of Systems Review of Systems: Yes all other systems are reviewed and are negative Constitutional Constitutional: Denies chills and Denies fever(s) Cardiovascular Cardiovascular: Reports dyspnea Respiratory Respiratory: Reports cough and Reports dyspnea Gastrointestinal Gastrointestinal: Denies abdominal pain, Denies nausea and Denies vomiting Physical Exam Vital Signs: Vital Signs: Last Vital Signs Temp 98.0 F 11/04/23 11:23 Pulse 95 11/04/23 13:16 Resp 20 11/04/23 11:23 BP 137/63 11/04/23 11:23 Pulse Ox 99 11/04/23 13:16 O2 Del Method Nasal Cannula 11/04/23 13:16 O2 Flow Rate 4 11/04/23 13:16 Oxygen Flow Rate 3 11/03/23 13:06 BMI result Body Mass Index 31.7 Const: General: cooperative, alert and awake Nutritional Appearance: overweight Orientation/consciousness: patient oriented x3 Resp: Other: b/l expiratory wheezing Effort & Inspection: normal respiratory effort, able to speak in complete sentences, no respiratory distress and no use of accessory muscles Cardio: Rate: tachycardic GI: Inspection: No distended Palpation (GI): Soft to palpation and nontender Neuro: General: patient oriented x3, moves all extremities and CN's II-XI intact bilaterally Extrem: General: Yes no pedal edema Objective Data Active Medications Acetaminophen (Acetaminophen 325 Mg Tablet) 650 mg PO Q6H PRN PRN Reason: Pain, Mild (Pain Scale 1-3), fever or headache Albuterol/Ipratropium (Albuterol/Iprat 2.5/0.5mg 3 Ml Ampul.Neb) 3 ml INHALE RQ4H 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 Last Admin: 11/04/23 11:07 Dose: 3 ml Documented By: DARBY Albuterol/Ipratropium (Albuterol/Iprat 2.5/0.5mg 3 Ml Ampul.Neb) 3 ml INHALE RQ4H WHILE AWAKE PRN PRN Reason: Shortness of Breath/Wheezing Atorvastatin Calcium (Atorvastatin Calcium 10 Mg Tablet) 10 mg PO BEDTIME [facility] Buprenorphine/Naloxone (Buprenorphine/Naloxone 2/0.5mg Film) 1 film SUBLINGUAL DAILY [facility] Last Admin: 11/04/23 08:35 Dose: 1 film Documented By: PRINCE Calcium Carbonate (Calcium Carbonate 750 Mg Tab.Chew) 750 mg PO Q4H PRN PRN Reason: Heartburn Diltiazem HCl (Diltiazem Hcl Cd 180 Mg Cap.Er.24h) 180 mg PO DAILY [facility]; Protocol Last Admin: 11/04/23 11:51 Dose: 180 mg Documented By: PRINCE Enoxaparin Sodium (Enoxaparin Sodium 40 Mg/0.4 Ml Syringe) 40 mg SUBCUT Q24H [facility] Last Admin: 11/03/23 18:45 Dose: 40 mg Documented By: SHAVON Folic Acid (Folic Acid 1 Mg Tablet) 1 mg PO DAILY [facility] Guaifenesin (Guaifenesin 200 Mg/10 Ml 10 Ml Liquid) 10 ml PO Q4H PRN PRN Reason: Cough Last Admin: 11/04/23 03:21 Dose: 10 ml Documented By: VARINDER Azithromycin 500 mg/ Sodium (Chloride) 250 mls @ 125 mls/hr IV Q24H [facility] Last Infusion: 11/03/23 22:00 Dose: Infused Documented By: VARINDER Ceftriaxone Sodium 1 gm/ (Sodium Chloride) 50 mls @ 100 mls/hr IV Q24H [facility] Last Infusion: 11/03/23 22:48 Dose: Infused Documented By: VARINDER Levothyroxine Sodium (Levothyroxine Sodium 25 Mcg Tablet) 25 mcg PO DAILY@0600 [facility] Magnesium Hydroxide (Milk Of Magnesia 30 Ml Oral.Susp) 30 ml PO DAILY PRN PRN Reason: Constipation Melatonin (Melatonin 3 Mg Tablet) 6 mg PO BEDTIME PRN PRN Reason: Insomnia Last Admin: 11/03/23 21:54 Dose: 6 mg Documented By: VARINDER Methylprednisolone Sodium Succinate (Methylprednisolone Sod Succ 40 Mg/Ml Vial) 40 mg IVPUSH Q12H [facility] Last Admin: 11/04/23 06:05 Dose: 40 mg Documented By: VARINDER Metoprolol Tartrate (Metoprolol Tartrate 25 Mg Tablet) 25 mg PO BID [facility]; Protocol Last Admin: 11/04/23 11:52 Dose: 25 mg Documented By: PRINCE Non-Formulary Medication (Milnacipran [Savella]) 50 mg PO BID [facility] Omeprazole (Omeprazole 20 Mg Capsule.Dr) 20 mg PO DAILY@0630 [facility] Paroxetine HCl (Paroxetine Hcl 40 Mg Tablet) 40 mg PO BID [facility] Sodium Chloride (0.9 % Sodium Chloride Flush 3 Ml Syringe) 3 ml IVFLUSH QSHIFT [facility] Last Admin: 11/04/23 08:13 Dose: 3 ml Documented By: PRINCE Theophylline (Theophylline Anhydrous Er 400 Mg Tab.Er.24h) 400 mg PO DAILY [facility] Labs 11/04/23 06:24 11/04/23 06:24 Labs: Laboratory Results - last 24 hr 11/03/23 11/03/23 11/04/23 13:11 16:06 06:24 MCV 89.7 MCH 29.4 MCHC 32.8 RDW 15.2 Plt Count 194 MPV 10.0 Immature Gran % (Auto) 0.5 H Neut % (Auto) 90.1 H Lymph % (Auto) 4.8 L Surry % (Auto) 4.3 Eos % (Auto) 0.0 Baso % (Auto) 0.3 Lymph # (Auto) 0.5 L Surry # (Auto) 0.4 Eos # (Auto) 0.0 Baso # (Auto) 0.0 Abs Immat Gran (auto) 0.05 H Absolute Neuts (auto) 9.0 H Absolute Nucleated RBC 0.000 Nucleated RBC % (auto) 0.0 Smear Tech's Comments VERIFIED D-Dimer High Sensitivty 1252 Anion Gap 14 20 Estim Creat Clear Calc 50.7 42.9 Estimated GFR 40 34 Random Glucose 136 H 146 H Calcium 9.5 9.0 Troponin I High Sens 64.3 H* 57.4 H* B-Natriuretic Peptide 613 H Procalcitonin 0.05 Respiratory Panel [facility] Adenovirus (Rapid PCR) B.pert (TEM-PCR) B.parapertussis DNA PCR C. pneumoniae DNA (PCR) Coronavirus OC43 (PCR) Coronavirus HKU1 (PCR) Coronavirus 229E (PCR) Coronavirus NL63 (PCR) Human Metapneumovir PCR Influenza A (RT-PCR) Influenza B (RT-PCR) M. pneumoniae (PCR) Parainfluenza 1 (PCR) Parainfluenza 2 (PCR) Parainfluenza 3 (PCR) Parainfluenza 4 (PCR) RSV (PCR) Entero/Rhino (PCR) SARS-CoV-2 RNA (RT-PCR) 11/04/23 09:31 MCV MCH MCHC RDW Plt Count MPV Immature Gran % (Auto) Neut % (Auto) Lymph % (Auto) Surry % (Auto) Eos % (Auto) Baso % (Auto) Lymph # (Auto) Surry # (Auto) Eos # (Auto) Baso # (Auto) Abs Immat Gran (auto) Absolute Neuts (auto) Absolute Nucleated RBC Nucleated RBC % (auto) Smear Tech's Comments D-Dimer High Sensitivty Anion Gap Estim Creat Clear Calc Estimated GFR Random Glucose Calcium Troponin I High Sens B-Natriuretic Peptide Procalcitonin Respiratory Panel [facility] See Note Adenovirus (Rapid PCR) Not Detected B.pert (TEM-PCR) Detected A B.parapertussis DNA PCR Not Detected C. pneumoniae DNA (PCR) Not Detected Coronavirus OC43 (PCR) Not Detected Coronavirus HKU1 (PCR) Not Detected Coronavirus 229E (PCR) Not Detected Coronavirus NL63 (PCR) Not Detected Human Metapneumovir PCR Not Detected Influenza A (RT-PCR) Not Detected Influenza B (RT-PCR) Not Detected M. pneumoniae (PCR) Not Detected Parainfluenza 1 (PCR) Not Detected Parainfluenza 2 (PCR) Not Detected Parainfluenza 3 (PCR) Not Detected Parainfluenza 4 (PCR) Not Detected RSV (PCR) Not Detected Entero/Rhino (PCR) Detected A SARS-CoV-2 RNA (RT-PCR) Not Detected Assessment and Plan (1) Acute and chronic respiratory failure: Status: Acute (2) Pertussis: Status: Acute (3) Acute exacerbation of chronic obstructive airways disease: Status: Acute (4) Rhinovirus: Status: Acute Plan 63-year-old female with a past medical history of non-small cell lung cancer status post left upper lobe and right upper lobe wedge resection, with metastases to the brain, liver, and bones, is currently undergoing palliative chemotherapy under the care of Dr. Arvind pereira chemo on 10/15/23. She also has a history of breast cancer, depression, hepatitis C, hypertension, and COPD requiring home oxygen therapy at 3 liters and actively smoking. Additionally, she has paroxysmal atrial fibrillation and is not on anticoagulation due to a history of low platelets, as well as a history of anemia and opioid dependence. Pt admitted for acute on chronic hypoxemic respiratory failure secondary to COPD exacerbation and CHF exacerbation initially in atrial fibrillation with RVR acute on chronic hypoxemic respiratory failure secondary to exacerbation of COPD/probable viral pneumonia due to underlying pertussis/rhino virus (RPP + for both) continue IV methylprednisolone 40 mg b.i.d. Initially treated with IV Lasix due to concern for underlying CHF exacerbation, now renal function trending up. will stop IV Lasix DuoNebs q.4h while awake continue IV azithromycin, ceftriaxone Continue baseline supplemental oxygen 3 L via nasal cannula HFpEF BNP elevated from baseline CHF Initially thought to be contributing to respiratory failure, given IV Lasix will stop IV Lasix given increasing renal function Echo with preserved ejection fraction, mild aortic valve stenosis, mild pulmonary hypertension, severe mitral annular calcification. Unable to determine diastolic dysfunction paroxysmal atrial fibrillation with RVR Received multiple doses of IV medication in the emergency department, heart rate improved on admission not on anticoagulation due to history of thrombocytopenia and anemia continue metoprolol, diltiazem for rate chronically elevated troponins no chest pain, EKG without any acute ischemic changes trops flat monitor on telemetry metastatic [id number] lung cancer s/p wedge resection of the left and right upper lobes with metastasis to brain, liver, and bones on palliative chemotherapy, last chemo 10/14 outpatient follow-up with Dr. Samuels hypertension continue home meds mood disorder continue home medications opioid dependence continue Suboxone HLD statin Hypothyroidism Continue Synthroid DVT prophylaxis-Lovenox Full code Patient requires ongoing inpatient stay for management of acute on chronic hypoxemic respiratory failure secondary to COPD and CHF exacerbation requiring IV diuresis, IV steroids, close monitoring of respiratory status to prevent decompensation. Will also require ongoing cardiac monitoring given patient was in paroxysmal atrial fibrillation with RVR on arrival rate now controlled Quality Stroke Does the patient have a stroke diagnosis?: No VTE Prior VTE?: No VTE Risk Level:: Medical - moderate - high VTE Device Contraindication: Treatment Not Indicated VTE Drug Contraindication: N/A - Med Ordered
[2023-11-04] MEDS: Azithromycin 500 MG in 0.9 % Sodium Chloride 250 ML 125 MG IV (16:29)
[2023-11-04] MEDS: Enoxaparin Sodium 40 MG/0.4 ML SYRINGE SUBCUT (16:30)
[2023-11-04] MEDS: cefTRIAXone sodium 1 GM in 0.9 % Sodium Chloride 50 ML IV (18:18)
[2023-11-04] MEDS: Melatonin 3 MG TABLET 6 MG PO (21:58)
[2023-11-04] MEDS: Atorvastatin Calcium 10 MG TABLET PO (21:58)
[2023-11-04] MEDS: PARoxetine HCL 40 MG TABLET PO (21:59)
[2023-11-05] VITALS (12 sets, daily range): BP systolic 110–164; BP diastolic 22–86; PULSE 65–88; RESP 16–23; TEMP 36–36.6; O2SAT 93–98
--- NOTE | 2023-11-05 | ECG_ITS ---
Test Reason : multiple pauses Blood Pressure : / mmHG Vent. Rate : 069 BPM Atrial Rate : 000 BPM P-R Int : 000 ms QRS Dur : 074 ms QT Int : 404 ms P-R-T Axes : 000 044 022 degrees QTc Int : 432 ms Atrial fibrillation Abnormal ECG When compared with ECG of 03-NOV-2023 13:10, Vent. rate has decreased BY 76 BPM Referred By: Natalie Vu Electronically Signed By:KALIE GAMA
[2023-11-05] MEDS: Omeprazole 20 MG CAPSULE.DR PO (05:52)
[2023-11-05] MEDS: methylPREDNISolone Sod Succ 40 MG/ML VIAL IVPUSH ×2 (05:52→17:22)
[2023-11-05] MEDS: Levothyroxine Sodium 25 MCG TABLET PO (05:52)
[2023-11-05] MEDS: guaiFENesin 200 MG/10 ML 10 ML LIQUID PO ×4 (05:52→21:39)
--- NOTE | 2023-11-05 06:34 | PM.EVENT ---
Event Note Date of Service: 11/05/23 Event Note: 1:47 AM - 3.1 sec pause. 3:53 AM - 2.4 sec pause. Possible secondary to the concomitant use of metoprolol and diltiazem. We will obtain ECG, continue tele. To consider holding both or one of these agents if pt persists with pauses. Time Spent With Patient Time: Total time managing care of this patient today ____ minutes.
[2023-11-05 07:09] LABS: B Type Natriuretic Peptide 453 pg/mL (<100)
[2023-11-05] MEDS: Albuterol/Iprat 2.5/0.5MG 3 ML AMPUL.NEB INHALE ×4 (07:28→20:02)
[2023-11-05] MEDS: PARoxetine HCL 40 MG TABLET PO ×2 (08:45→21:39)
[2023-11-05] MEDS: Theophylline Anhydrous ER 400 MG TAB.ER.24H PO (08:45)
[2023-11-05] MEDS: Buprenorphine/Naloxone 2/0.5mg FILM 1 FILM SUBLINGUAL (08:45)
[2023-11-05] MEDS: dilTIAZem HCL CD 180 MG CAP.ER.24H PO (08:46)
[2023-11-05] MEDS: Metoprolol Tartrate 25 MG TABLET PO ×2 (08:46→21:38)
[2023-11-05] MEDS: 0.9 % Sodium Chloride Flush 3 ML SYRINGE IVFLUSH ×3 (08:46→21:39)
[2023-11-05] MEDS: Folic Acid 1 MG TABLET PO (08:46)
[2023-11-05 10:01] LABS: Anion Gap 16 (12-20); Blood Urea Nitrogen 40 mg/dL (9-16); Calcium 8.9 mg/dL (8.4-10.2); Carbon Dioxide 25 mmol/L (22-29); Chloride 101 mmol/L (96-108); Creatinine Clr Calc Pharmacy 51.9; Estimated Glomerular Filt Rate 42; Glucose Random 154 mg/dL (60-115); Potassium 4.4 mmol/L (3.3-5.1); Sodium 138 mmol/L (135-145)
--- NOTE | 2023-11-05 10:33 | MHC.CM.PN ---
Per ROUNDS discussion, Patient is not yet medically cleared for dc (still SOB & wheeze)home/resume services is the goal and CM will continue to follow.
--- NOTE | 2023-11-05 12:16 | HO.PM.IMPN ---
Subjective Subjective Date of Service: 11/05/23 Interval History: Seen and examined this morning Follow-up for pertussis/rhino virus/COPD exacerbation Patient reports shortness of breath, ongoing cough Review of Systems Review of Systems: Yes all other systems are reviewed and are negative Constitutional Constitutional: Denies chills and Denies fever(s) Cardiovascular Cardiovascular: Denies chest pain, Denies palpitations and Reports dyspnea Respiratory Respiratory: Reports cough and Reports dyspnea Gastrointestinal Gastrointestinal: Denies abdominal pain Endocrine Endocrine: Denies palpitations Physical Exam Vital Signs: Vital Signs: Last Vital Signs Temp 97.0 F 11/05/23 11:50 Pulse 80 11/05/23 11:50 Resp 22 H 11/05/23 11:50 BP 114/75 11/05/23 11:50 Pulse Ox 93 11/05/23 11:50 O2 Del Method Nasal Cannula 11/05/23 11:50 O2 Flow Rate 3 11/05/23 11:50 Oxygen Flow Rate 3 11/03/23 13:06 BMI result Body Mass Index 31.7 Const: General: cooperative, alert and awake Nutritional Appearance: overweight Orientation/consciousness: patient oriented x3 Resp: Other: b/l expiratory wheezing Effort & Inspection: normal respiratory effort, able to speak in complete sentences, no respiratory distress and no use of accessory muscles Cardio: Rate: tachycardic GI: Inspection: No distended Palpation (GI): Soft to palpation and nontender Neuro: General: patient oriented x3, moves all extremities and CN's II-XI intact bilaterally Extrem: General: Yes no pedal edema Objective Data Active Medications Acetaminophen (Acetaminophen 325 Mg Tablet) 650 mg PO Q6H PRN PRN Reason: Pain, Mild (Pain Scale 1-3), fever or headache Albuterol/Ipratropium (Albuterol/Iprat 2.5/0.5mg 3 Ml Ampul.Neb) 3 ml INHALE RQ4H WHILE AWAKE [facility] Last Admin: 11/05/23 11:09 Dose: 3 ml Documented By: CLAYTON Albuterol/Ipratropium (Albuterol/Iprat 2.5/0.5mg 3 Ml Ampul.Neb) 3 ml INHALE RQ4H WHILE AWAKE PRN PRN Reason: Shortness of Breath/Wheezing Atorvastatin Calcium (Atorvastatin Calcium 10 Mg Tablet) 10 mg PO BEDTIME [facility] Last Admin: 11/04/23 21:58 Dose: 10 mg Documented By: NGOZI Buprenorphine/Naloxone (Buprenorphine/Naloxone 2/0.5mg Film) 1 film SUBLINGUAL DAILY [facility] Last Admin: 11/05/23 08:45 Dose: 1 film Documented By: NAI Calcium Carbonate (Calcium Carbonate 750 Mg Tab.Chew) 750 mg PO Q4H PRN PRN Reason: Heartburn Diltiazem HCl (Diltiazem Hcl Cd 180 Mg Cap.Er.24h) 180 mg PO DAILY [facility]; Protocol Last Admin: 11/05/23 08:46 Dose: 180 mg Documented By: NAI Enoxaparin Sodium (Enoxaparin Sodium 40 Mg/0.4 Ml Syringe) 40 mg SUBCUT Q24H [facility] Last Admin: 11/04/23 16:30 Dose: 40 mg Documented By: PRINCE Folic Acid (Folic Acid 1 Mg Tablet) 1 mg PO DAILY [facility] Last Admin: 11/05/23 08:46 Dose: 1 mg Documented By: NAI Guaifenesin (Guaifenesin 200 Mg/10 Ml 10 Ml Liquid) 10 ml PO Q4H PRN PRN Reason: Cough Last Admin: 11/05/23 05:52 Dose: 10 ml Documented By: NGOZI Azithromycin 500 mg/ Sodium (Chloride) 250 mls @ 125 mls/hr IV Q24H [facility] Last Infusion: 11/04/23 18:30 Dose: Infused Documented By: PRINCE Ceftriaxone Sodium 1 gm/ (Sodium Chloride) 50 mls @ 100 mls/hr IV Q24H [facility] Last Infusion: 11/04/23 19:00 Dose: Infused Documented By: NGOZI Levothyroxine Sodium (Levothyroxine Sodium 25 Mcg Tablet) 25 mcg PO DAILY@0600 [facility] Last Admin: 11/05/23 05:52 Dose: 25 mcg Documented By: NGOZI Magnesium Hydroxide (Milk Of Magnesia 30 Ml Oral.Susp) 30 ml PO DAILY PRN PRN Reason: Constipation Melatonin (Melatonin 3 Mg Tablet) 6 mg PO BEDTIME PRN PRN Reason: Insomnia Last Admin: 11/04/23 21:58 Dose: 6 mg Documented By: NGOZI Methylprednisolone Sodium Succinate (Methylprednisolone Sod Succ 40 Mg/Ml Vial) 40 mg IVPUSH Q12H [facility] Last Admin: 11/05/23 05:52 Dose: 40 mg Documented By: NGOZI Metoprolol Tartrate (Metoprolol Tartrate 25 Mg Tablet) 25 mg PO BID [facility]; Protocol Last Admin: 11/05/23 08:46 Dose: 25 mg Documented By: NAI Non-Formulary Medication (Milnacipran [Savella]) 50 mg PO BID [facility] Omeprazole (Omeprazole 20 Mg Capsule.) 20 mg PO DAILY@0630 [facility] Last Admin: 11/05/23 05:52 Dose: 20 mg Documented By: NGOZI Paroxetine HCl (Paroxetine Hcl 40 Mg Tablet) 40 mg PO BID [facility] Last Admin: 11/05/23 08:45 Dose: 40 mg Documented By: NAI Sodium Chloride (0.9 % Sodium Chloride Flush 3 Ml Syringe) 3 ml IVFLUSH QSHIFT [facility] Last Admin: 11/05/23 08:46 Dose: 3 ml Documented By: NAI Theophylline (Theophylline Anhydrous Er 400 Mg Tab.Er.24h) 400 mg PO DAILY [facility] Last Admin: 11/05/23 08:45 Dose: 400 mg Documented By: NAI Labs 11/04/23 06:24 11/05/23 09:19 Labs: Laboratory Results - last 24 hr 11/05/23 11/05/23 06:23 09:19 Hold Purple Top SEE NOTE Anion Gap 16 Estim Creat Clear Calc 51.9 Estimated GFR 42 Random Glucose 154 H Calcium 8.9 B-Natriuretic Peptide 453 H Assessment and Plan (1) Rhinovirus: Status: Acute (2) Pertussis: Status: Acute (3) Acute and chronic respiratory failure: Status: Acute (4) Acute exacerbation of chronic obstructive airways disease: Status: Acute (5) Lung cancer: Status: Acute Plan 63-year-old female with a past medical history of non-small cell lung cancer status post left upper lobe and right upper lobe wedge resection, with metastases to the brain, liver, and bones, is currently undergoing palliative chemotherapy under the care of Dr. Arvind pereira chemo on 10/15/23. She also has a history of breast cancer, depression, hepatitis C, hypertension, and COPD requiring home oxygen therapy at 3 liters and actively smoking. Additionally, she has paroxysmal atrial fibrillation and is not on anticoagulation due to a history of low platelets, as well as a history of anemia and opioid dependence. Pt admitted for acute on chronic hypoxemic respiratory failure secondary to COPD exacerbation and CHF exacerbation initially in atrial fibrillation with RVR acute on chronic hypoxemic respiratory failure secondary to exacerbation of COPD/probable viral pneumonia due to underlying pertussis/rhino virus (RPP + for both) continue IV methylprednisolone 40 mg b.i.d. Initially treated with IV Lasix due to concern for underlying CHF exacerbation, now renal function trending up. will stop IV Lasix DuoNebs q.4h while awake continue IV azithromycin, ceftriaxone Continue baseline supplemental oxygen 3 L via nasal cannula HFpEF Echo with preserved ejection fraction, mild aortic valve stenosis, mild pulmonary hypertension, severe mitral annular calcification. Unable to determine diastolic dysfunction BNP elevated from baseline on arrival CHF Initially thought to be contributing to respiratory failure, given IV Lasix but will stop IV Lasix given increasing renal function not on diuretics at baseline paroxysmal atrial fibrillation with RVR Received multiple doses of IV medication in the emergency department, heart rate improved on admission not on anticoagulation due to history of thrombocytopenia and anemia continue metoprolol, diltiazem for rate chronically elevated troponins no chest pain, EKG without any acute ischemic changes trops flat monitor on telemetry metastatic [id number] lung cancer s/p wedge resection of the left and right upper lobes with metastasis to brain, liver, and bones on palliative chemotherapy, last chemo 10/14 outpatient follow-up with Dr. Samuels hypertension Continue diltiazem, metoprolol, hydrochlorothiazide on hold mood disorder continue home medications opioid dependence continue Suboxone HLD statin Hypothyroidism Continue Synthroid DVT prophylaxis-Lovenox Full code Patient requires ongoing inpatient stay for management of acute on chronic hypoxemic respiratory failure secondary to COPD and CHF exacerbation requiring IV diuresis, IV steroids, close monitoring of respiratory status to prevent decompensation. Will also require ongoing cardiac monitoring given patient was in paroxysmal atrial fibrillation with RVR on arrival rate now controlled Quality Stroke Does the patient have a stroke diagnosis?: No VTE Prior VTE?: No VTE Risk Level:: Medical - moderate - high VTE Device Contraindication: Treatment Not Indicated VTE Drug Contraindication: N/A - Med Ordered
[2023-11-05] MEDS: Acetaminophen 325 MG TABLET 650 MG PO (13:25)
[2023-11-05] MEDS: Enoxaparin Sodium 40 MG/0.4 ML SYRINGE SUBCUT (17:22)
[2023-11-05] MEDS: Azithromycin 500 MG in 0.9 % Sodium Chloride 250 ML 125 MG IV (17:22)
[2023-11-05] MEDS: cefTRIAXone sodium 1 GM in 0.9 % Sodium Chloride 50 ML IV (17:22)
[2023-11-05] MEDS: Atorvastatin Calcium 10 MG TABLET PO (21:39)
[2023-11-05] MEDS: Melatonin 3 MG TABLET 6 MG PO (21:39)
[2023-11-06] VITALS (15 sets, daily range): BP systolic 134–145; BP diastolic 77–97; PULSE 76–116; RESP 18–22; TEMP 36.2–36.6; O2SAT 91–99
[2023-11-06] MEDS: guaiFENesin 200 MG/10 ML 10 ML LIQUID PO (01:40)
[2023-11-06] MEDS: Albuterol/Iprat 2.5/0.5MG 3 ML AMPUL.NEB INHALE ×5 (03:15→19:19)
[2023-11-06] MEDS: Morphine Sulfate 4 MG/ML CARTRIDGE IVPUSH (03:39)
[2023-11-06] MEDS: methylPREDNISolone Sod Succ 125 MG/2 ML VIAL IVPUSH (03:39)
--- NOTE | 2023-11-06 05:34 | PM.EVENT ---
Event Note Date of Service: 11/06/23 Event Note: 3:13 AM - Contacted to notify patient has persistent cough and increased WOB. Requiring 4 liters/minute supplemental oxygen via nasal cannula. On evaluation, patient was coughing persistently and speaking in short sentences. She was also tachypneic but not in severe respiratory distress. Lungs auscultation is significant for decreased sound at lower base, bilateral inspiratory + expiratory wheezing. Breathing tx provided by RT. Solu-Medrol 125 mg IV X1 given as well as morphine 4 mg IV for WOB. CXR stat obtained showing bilateral pleural effusion (L > R), similar to prior. Recent chest CTA reviewed. Patient mentioned that she underwent a left thoracentesis once and that she had immediate relief of symptoms but, it seems like at that time she had this procedure the effusion was quite large. We will obtain pulmonology consult. Time Spent With Patient Time: Total time managing care of this patient today ____ minutes.
[2023-11-06] MEDS: Levothyroxine Sodium 25 MCG TABLET PO (05:42)
[2023-11-06] MEDS: Omeprazole 20 MG CAPSULE.DR PO (05:42)
[2023-11-06] MEDS: guaiFEN/Codeine SF 200/20/10ML 10 ML LIQUID PO ×2 (06:32→21:46)
[2023-11-06] MEDS: Metoprolol Tartrate 25 MG TABLET PO ×2 (10:02→21:46)
[2023-11-06] MEDS: Buprenorphine/Naloxone 2/0.5mg FILM 1 FILM SUBLINGUAL (10:02)
[2023-11-06] MEDS: PARoxetine HCL 40 MG TABLET PO ×2 (10:02→21:46)
[2023-11-06] MEDS: Theophylline Anhydrous ER 400 MG TAB.ER.24H PO (10:03)
[2023-11-06] MEDS: 0.9 % Sodium Chloride Flush 3 ML SYRINGE IVFLUSH ×3 (10:03→21:46)
[2023-11-06] MEDS: Folic Acid 1 MG TABLET PO (10:03)
[2023-11-06] MEDS: dilTIAZem HCL CD 180 MG CAP.ER.24H PO (10:03)
--- NOTE | 2023-11-06 13:59 | HO.PM.IMPN ---
Subjective Subjective Date of Service: 11/06/23 Interval History: seen and examined this morning follow up for COPD exacerbation, pertussis/rhino virus Short of breath overnight, given extra dose of IV Solu-Medrol Still feeling short of breath. Feeling frustrated Review of Systems Review of Systems: Yes all other systems are reviewed and are negative Constitutional Constitutional: Denies chills and Denies fever(s) Cardiovascular Cardiovascular: Reports dyspnea Respiratory Respiratory: Reports cough and Reports dyspnea Gastrointestinal Gastrointestinal: Denies abdominal pain, Denies nausea and Denies vomiting Physical Exam Vital Signs: Vital Signs: Last Vital Signs Temp 97.9 F 11/06/23 11:56 Pulse 95 11/06/23 11:56 Resp 20 11/06/23 11:56 BP 143/87 H 11/06/23 11:56 Pulse Ox 94 11/06/23 11:56 O2 Del Method Nasal Cannula 11/06/23 11:56 O2 Flow Rate 4 11/06/23 11:56 Oxygen Flow Rate 3 11/03/23 13:06 BMI result Body Mass Index 31.7 Const: General: cooperative, alert and awake Nutritional Appearance: overweight Orientation/consciousness: patient oriented x3 Resp: Other: b/l expiratory wheezing Effort & Inspection: normal respiratory effort, able to speak in complete sentences, no respiratory distress and no use of accessory muscles Cardio: Rate: tachycardic GI: Inspection: No distended Palpation (GI): Soft to palpation and nontender Neuro: General: patient oriented x3, moves all extremities and CN's II-XI intact bilaterally Extrem: General: Yes no pedal edema Objective Data Active Medications Acetaminophen (Acetaminophen 325 Mg Tablet) 650 mg PO Q6H PRN PRN Reason: Pain, Mild (Pain Scale 1-3), fever or headache Last Admin: 11/05/23 13:25 Dose: 650 mg Documented By: NAI Albuterol/Ipratropium (Albuterol/Iprat 2.5/0.5mg 3 Ml Ampul.Neb) 3 ml INHALE RQ4H 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 Last Admin: 11/06/23 11:05 Dose: 3 ml Documented By: DARBY Albuterol/Ipratropium (Albuterol/Iprat 2.5/0.5mg 3 Ml Ampul.Neb) 3 ml INHALE Q2H PRN PRN Reason: Shortness of Breath/Wheezing Atorvastatin Calcium (Atorvastatin Calcium 10 Mg Tablet) 10 mg PO BEDTIME [facility] Last Admin: 11/05/23 21:39 Dose: 10 mg Documented By: JEANNINE Buprenorphine/Naloxone (Buprenorphine/Naloxone 2/0.5mg Film) 1 film SUBLINGUAL DAILY [facility] Last Admin: 11/06/23 10:02 Dose: 1 film Documented By: TIM Calcium Carbonate (Calcium Carbonate 750 Mg Tab.Chew) 750 mg PO Q4H PRN PRN Reason: Heartburn Diltiazem HCl (Diltiazem Hcl Cd 180 Mg Cap.Er.24h) 180 mg PO DAILY [facility]; Protocol Last Admin: 11/06/23 10:03 Dose: 180 mg Documented By: TIM Enoxaparin Sodium (Enoxaparin Sodium 40 Mg/0.4 Ml Syringe) 40 mg SUBCUT Q24H [facility] Last Admin: 11/05/23 17:22 Dose: 40 mg Documented By: NAI Folic Acid (Folic Acid 1 Mg Tablet) 1 mg PO DAILY [facility] Last Admin: 11/06/23 10:03 Dose: 1 mg Documented By: TIM Guaifenesin/Codeine Phosphate (Guaifen/Codeine Sf 200/20/10ml 10 Ml Liquid) 10 ml PO Q4H PRN PRN Reason: Cough Last Admin: 11/06/23 06:32 Dose: 10 ml Documented By: JEANNINE Comments: Pt requested medication to help alleviate persistent cough. Pt has Codeine as an allergy but cites it caused her Nausea many years ago when she took in the form of Tylenol/Codeine. Pt reports no s/s of anaphylaxis nor rash to the medication. Dr. Smith aware. Azithromycin 500 mg/ Sodium (Chloride) 250 mls @ 125 mls/hr IV Q24H [facility] Last Infusion: 11/05/23 17:30 Dose: 0 mls/hr Documented By: NAI Ceftriaxone Sodium 1 gm/ (Sodium Chloride) 50 mls @ 100 mls/hr IV Q24H [facility] Last Infusion: 11/05/23 18:02 Dose: Infused Documented By: NAI Levothyroxine Sodium (Levothyroxine Sodium 25 Mcg Tablet) 25 mcg PO DAILY@0600 [facility] Last Admin: 11/06/23 05:42 Dose: 25 mcg Documented By: JEANNINE Magnesium Hydroxide (Milk Of Magnesia 30 Ml Oral.Susp) 30 ml PO DAILY PRN PRN Reason: Constipation Melatonin (Melatonin 3 Mg Tablet) 6 mg PO BEDTIME PRN PRN Reason: Insomnia Last Admin: 11/05/23 21:39 Dose: 6 mg Documented By: JEANNINE Comments: pt request for sleep Methylprednisolone Sodium Succinate (Methylprednisolone Sod Succ 40 Mg/Ml Vial) 40 mg IVPUSH Q12H [facility] Last Admin: 11/06/23 05:40 Dose: Not Given Documented By: JEANNINE Non-Admin Reason: Hold dose per Dr. Smith. Metoprolol Tartrate (Metoprolol Tartrate 25 Mg Tablet) 25 mg PO BID [facility]; Protocol Last Admin: 11/06/23 10:02 Dose: 25 mg Documented By: TIM Non-Formulary Medication (Milnacipran [Savella]) 50 mg PO BID [facility] Omeprazole (Omeprazole 20 Mg Capsule.) 20 mg PO DAILY@0630 [facility] Last Admin: 11/06/23 05:42 Dose: 20 mg Documented By: JEANNINE Paroxetine HCl (Paroxetine Hcl 40 Mg Tablet) 40 mg PO BID [facility] Last Admin: 11/06/23 10:02 Dose: 40 mg Documented By: TIM Sodium Chloride (0.9 % Sodium Chloride Flush 3 Ml Syringe) 3 ml IVFLUSH QSHIFT [facility] Last Admin: 11/06/23 10:03 Dose: 3 ml Documented By: TIM Theophylline (Theophylline Anhydrous Er 400 Mg Tab.Er.24h) 400 mg PO DAILY [facility] Last Admin: 11/06/23 10:03 Dose: 400 mg Documented By: TIM Labs 11/04/23 06:24 11/05/23 09:19 Assessment and Plan (1) Rhinovirus: Status: Acute (2) Pertussis: Status: Acute (3) Acute exacerbation of chronic obstructive airways disease: Status: Acute Plan 63-year-old female with a past medical history of non-small cell lung cancer status post left upper lobe and right upper lobe wedge resection, with metastases to the brain, liver, and bones, is currently undergoing palliative chemotherapy under the care of Dr. Arvind pereira chemo on 10/15/23. She also has a history of breast cancer, depression, hepatitis C, hypertension, and COPD requiring home oxygen therapy at 3 liters and actively smoking. Additionally, she has paroxysmal atrial fibrillation and is not on anticoagulation due to a history of low platelets, as well as a history of anemia and opioid dependence. Pt admitted for acute on chronic hypoxemic respiratory failure secondary to COPD exacerbation and CHF exacerbation initially in atrial fibrillation with RVR acute on chronic hypoxemic respiratory failure secondary to exacerbation of COPD/probable viral pneumonia due to underlying pertussis/rhino virus (RPP + for both) continue IV methylprednisolone 40 mg b.i.d. Initially treated with IV Lasix due to concern for underlying CHF exacerbation, now renal function trending up. will stop IV Lasix DuoNebs q.4h while awake continue IV azithromycin, ceftriaxone Continue baseline supplemental oxygen 3 L via nasal cannula HFpEF Echo with preserved ejection fraction, mild aortic valve stenosis, mild pulmonary hypertension, severe mitral annular calcification. Unable to determine diastolic dysfunction BNP elevated from baseline on arrival CHF Initially thought to be contributing to respiratory failure, given IV Lasix but will stop IV Lasix given increasing renal function not on diuretics at baseline paroxysmal atrial fibrillation with RVR Received multiple doses of IV medication in the emergency department, heart rate improved on admission not on anticoagulation due to history of thrombocytopenia and anemia continue metoprolol, diltiazem for rate chronically elevated troponins no chest pain, EKG without any acute ischemic changes trops flat monitor on telemetry metastatic [id number] lung cancer s/p wedge resection of the left and right upper lobes with metastasis to brain, liver, and bones on palliative chemotherapy, last chemo 10/14 outpatient follow-up with Dr. Samuels hypertension Continue diltiazem, metoprolol hydrochlorothiazide on hold mood disorder continue home medications opioid dependence continue Suboxone HLD statin Hypothyroidism Continue Synthroid DVT prophylaxis-Lovenox Full code Patient requires ongoing inpatient stay for management of acute on chronic hypoxemic respiratory failure secondary to COPD requiring IV steroids, close monitoring of respiratory status to prevent decompensation. Will also require ongoing cardiac monitoring given patient was in paroxysmal atrial fibrillation with RVR on arrival rate now controlled Quality Stroke Does the patient have a stroke diagnosis?: No VTE Prior VTE?: No VTE Risk Level:: Medical - moderate - high VTE Device Contraindication: Treatment Not Indicated VTE Drug Contraindication: N/A - Med Ordered
[2023-11-06] MEDS: Azithromycin 500 MG in 0.9 % Sodium Chloride 250 ML 125 MG IV (16:59)
[2023-11-06] MEDS: methylPREDNISolone Sod Succ 40 MG/ML VIAL IVPUSH (17:00)
[2023-11-06] MEDS: Enoxaparin Sodium 40 MG/0.4 ML SYRINGE SUBCUT (17:33)
[2023-11-06] MEDS: cefTRIAXone sodium 1 GM in 0.9 % Sodium Chloride 50 ML IV (21:42)
[2023-11-06] MEDS: Atorvastatin Calcium 10 MG TABLET PO (21:46)
[2023-11-07] VITALS (11 sets, daily range): BP systolic 101–140; BP diastolic 76–94; PULSE 68–112; RESP 16–20; TEMP 36.3–36.8; O2SAT 93–98
[2023-11-07] MEDS: methylPREDNISolone Sod Succ 40 MG/ML VIAL IVPUSH ×2 (06:35→17:49)
[2023-11-07] MEDS: guaiFEN/Codeine SF 200/20/10ML 10 ML LIQUID PO ×3 (06:35→20:04)
[2023-11-07] MEDS: Omeprazole 20 MG CAPSULE.DR PO (06:36)
[2023-11-07] MEDS: Levothyroxine Sodium 25 MCG TABLET PO (06:36)
[2023-11-07] MEDS: Albuterol/Iprat 2.5/0.5MG 3 ML AMPUL.NEB INHALE ×4 (07:21→19:36)
[2023-11-07] MEDS: Theophylline Anhydrous ER 400 MG TAB.ER.24H PO (09:03)
[2023-11-07] MEDS: 0.9 % Sodium Chloride Flush 3 ML SYRINGE IVFLUSH ×3 (09:03→20:04)
[2023-11-07] MEDS: Buprenorphine/Naloxone 2/0.5mg FILM 1 FILM SUBLINGUAL (09:03)
[2023-11-07] MEDS: PARoxetine HCL 40 MG TABLET PO ×2 (09:03→20:04)
[2023-11-07] MEDS: Folic Acid 1 MG TABLET PO (09:03)
[2023-11-07] MEDS: Metoprolol Tartrate 25 MG TABLET PO ×2 (09:03→20:04)
[2023-11-07] MEDS: dilTIAZem HCL CD 180 MG CAP.ER.24H PO (09:06)
--- NOTE | 2023-11-07 10:19 | PM.CNPUL ---
History of Present Illness History of Present Illness Consult date: 11/07/23 Chief complaint: Afib RVR, COPD/CHF exacerbation, acute on chronic Narrative: 63-year-old lady, previously 40 pack-year smoker, with underlying bilateral on can not so on Keytruda, COPD on supplemental oxygen 2 L admitted on 11/03/2023 with dyspnea on exertion and worsening hypoxia secondary to COPD exacerbation secondary to pertussis/rhinovirus treated with empiric antibiotics, systemic glucocorticoids, and nebulized bronchodilators. Also with mild exacerbation of congestive heart failure, on additional diuresis, now net negative, overall improving. CT chest with bilateral small pleural effusions [id number]. Review of Systems Constitutional: Constitutional: Denies daytime sleepiness, Denies excessive sweating, Denies fatigue, Denies fever(s), Denies lethargy, Denies malaise, Denies night sweats, Denies snoring and Denies weight loss Eyes: Eyes: Denies blurry vision and Denies itchy eyes ENT: Denies nasal congestion, Denies post nasal drip, Denies sinus pain, Denies sinus pressure and Denies other ( Thrush) Cardiovascular: Cardiovascular: Denies chest pain, Denies pedal edema, Denies dyspnea, Reports dyspnea on exertion, Denies orthopnea and Denies paroxysmal nocturnal dyspnea Respiratory: Respiratory: Reports cough, Denies hemoptysis, Reports excessive phlegm production, Denies dyspnea, Reports dyspnea on exertion, Denies snoring and Denies wheezing Gastrointestinal: Gastrointestinal: Denies abdominal pain and Denies heartburn Musculoskeletal: Musculoskeletal: Denies myalgias, Denies arthralgias and Denies joint swelling Integumentary/Breasts: Skin/Breast: Denies rash Neurologic: Denies memory loss and Denies seizure-like activity Psychiatric: Psychiatric: Denies abnormal sleep pattern, Denies anxiety and Denies memory loss Endocrine: Endocrine: Denies excessive sweating, Denies fatigue and Denies heat intolerance Hematologic/Lymphatic: Hematologic/Lymphatic: Denies easy bruising Allergic/Immunologic: Allergic/Immunologic: Denies itchy eyes, Denies seasonal rhinorrhea and Denies wheezing PMFSH Past Medical History Medical History Pancytopenia New onset a-fib Cancer of upper lobe of left lung (~2020) Bilateral lung cancer Obesity History of hepatitis C Smoker Tubular adenoma of colon Pulmonary nodules History of breast cancer (~2006) Internal and external bleeding hemorrhoids Cancer of upper lobe of right lung (~2019) GERD (gastroesophageal reflux disease) Depression COPD (chronic obstructive pulmonary disease) HTN (hypertension) Family History Family History Mother History of lung cancer Brother History of lung cancer Maternal Grandmother Breast cancer in female Maternal Aunt Breast cancer in female Daughter Thyroid cancer Surgical History Surgical History History of lung surgery (~2020) History of anterior colporrhaphy (~2016) History of tubal ligation History of lumpectomy of right breast (~2006) History of colonoscopy (~2014) History of hemorrhoidectomy (~2019) History of back surgery (~2011) History of lobectomy of lung (~2019) Social History Social History Household Members: Significant Other Household Members Other:: 2 Housing: House Are you a primary primary care md to a significant other at home: No Do you presently have visiting nurse or other home services: No Unable to assess alcohol history related to: Unable to respond Alcohol intake: never Comment: rings appropriately Patient Tobacco Use Status: Former Tobacco user Tobacco use type: Cigarette Cigarette Packs Per Day: 1 Cigarettes Per Day: 10 Years Smoked: 50 Second Hand Smoke Exposure: Yes Use of substances other than those prescribed or required for medical reasons: No Substance Use Type: Marijuana Currently Displaying Signs/Symptoms of Drug Intoxication Withdrawal: No Advance Directives: Yes Advance Directives on File: Yes Advance Directives Date on File: 02/02/22 Do you have a plan to hurt others: No Plan Recently lost weight without trying: No How much weight loss: Not applicable Eating poorly because of decreased appetite: No Nutrition screen score: 0 Nutrition Risks: No Nutritional Risk Patient : No : No service: No Current occupational status: disabled Current occupational exposures/hazards: No Meds Allergies Allergy/AdvReac Type Severity Reaction Status Date / Time lisinopril [LISINOPRIL] Allergy Severe SWELLING- Verified 11/03/23 13:09 ANGIOEDEMA codeine [CODEINE] Allergy Intermediate VOMITING/HIVES, Verified 11/03/23 13:09 vomiting, hives Active Medications: Current Medications Acetaminophen (Acetaminophen 325 Mg Tablet) 650 mg PO Q6H PRN PRN Reason: Pain, Mild (Pain Scale 1-3), fever or headache Last Admin: 11/05/23 13:25 Dose: 650 mg Albuterol/Ipratropium (Albuterol/Iprat 2.5/0.5mg 3 Ml Ampul.Neb) 3 ml INHALE RQ4H 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 Last Admin: 11/07/23 07:21 Dose: 3 ml Albuterol/Ipratropium (Albuterol/Iprat 2.5/0.5mg 3 Ml Ampul.Neb) 3 ml INHALE Q2H PRN PRN Reason: Shortness of Breath/Wheezing Atorvastatin Calcium (Atorvastatin Calcium 10 Mg Tablet) 10 mg PO BEDTIME [facility] Last Admin: 11/06/23 21:46 Dose: 10 mg Buprenorphine/Naloxone (Buprenorphine/Naloxone 2/0.5mg Film) 1 film SUBLINGUAL DAILY [facility] [place] Last Admin: 11/07/23 09:03 Dose: 1 film Calcium Carbonate (Calcium Carbonate 750 Mg Tab.Chew) 750 mg PO Q4H PRN PRN Reason: Heartburn Diltiazem HCl (Diltiazem Hcl Cd 180 Mg Cap.Er.24h) 180 mg PO DAILY [facility] [place]; Protocol Last Admin: 11/07/23 09:06 Dose: 180 mg Docusate Sodium (Docusate Sodium 100 Mg Capsule) 100 mg PO BEDTIME PRN PRN Reason: stool softener Enoxaparin Sodium (Enoxaparin Sodium 40 Mg/0.4 Ml Syringe) 40 mg SUBCUT Q24H [facility] Last Admin: 11/06/23 17:33 Dose: 40 mg Folic Acid (Folic Acid 1 Mg Tablet) 1 mg PO DAILY [facility] Last Admin: 11/07/23 09:03 Dose: 1 mg Guaifenesin/Codeine Phosphate (Guaifen/Codeine Sf 200/20/10ml 10 Ml Liquid) 10 ml PO Q4H PRN PRN Reason: Cough Last Admin: 11/07/23 06:35 Dose: 10 ml Azithromycin 500 mg/ Sodium (Chloride) 250 mls @ 125 mls/hr IV Q24H [facility] Last Infusion: 11/06/23 19:00 Dose: Infused Ceftriaxone Sodium 1 gm/ (Sodium Chloride) 50 mls @ 100 mls/hr IV Q24H [facility] [place] Last Infusion: 11/06/23 22:15 Dose: Infused Levothyroxine Sodium (Levothyroxine Sodium 25 Mcg Tablet) 25 mcg PO DAILY@0600 [facility] [place] Last Admin: 11/07/23 06:36 Dose: 25 mcg Magnesium Hydroxide (Milk Of Magnesia 30 Ml Oral.Susp) 30 ml PO DAILY PRN PRN Reason: Constipation Melatonin (Melatonin 3 Mg Tablet) 6 mg PO BEDTIME PRN PRN Reason: Insomnia Last Admin: 11/05/23 21:39 Dose: 6 mg Methylprednisolone Sodium Succinate (Methylprednisolone Sod Succ 40 Mg/Ml Vial) 40 mg IVPUSH Q12H [facility] [place] Last Admin: 11/07/23 06:35 Dose: 40 mg Metoprolol Tartrate (Metoprolol Tartrate 25 Mg Tablet) 25 mg PO BID [facility]; Protocol Last Admin: 11/07/23 09:03 Dose: 25 mg Non-Formulary Medication (Milnacipran [Savella]) 50 mg PO BID [facility] [place] Omeprazole (Omeprazole 20 Mg Capsule.) 20 mg PO DAILY@629 [facility] [place] Last Admin: 11/07/23 06:36 Dose: 20 mg Paroxetine HCl (Paroxetine Hcl 40 Mg Tablet) 40 mg PO BID [facility] [place] Last Admin: 11/07/23 09:03 Dose: 40 mg Sodium Chloride (0.9 % Sodium Chloride Flush 3 Ml Syringe) 3 ml IVFLUSH QSHIFT [facility] [place] Last Admin: 11/07/23 09:03 Dose: 3 ml Theophylline (Theophylline Anhydrous Er 400 Mg Tab.Er.24h) 400 mg PO DAILY [facility] [place] Last Admin: 11/07/23 09:03 Dose: 400 mg Home Medications ?Medication ?Instructions ?Recorded ?Confirmed ?Last Taken ?Type milnacipran 50 mg tablet (Savella) 50 mg PO BID 01/18/22 11/03/23 10/18/23 History omeprazole 20 mg capsule,delayed 20 mg PO DAILY@0630 01/18/22 11/03/23 10/18/23 History release paroxetine HCl 20 mg tablet 40 mg PO BID 01/18/22 11/03/23 10/18/23 History simvastatin 20 mg tablet 20 mg PO BEDTIME 02/17/22 11/03/23 11/02/23 History albuterol sulfate 90 mcg/actuation 2 puff inhalation Q6H PRN sob 06/22/23 11/03/23 07/09/23 History aerosol inhaler (Ventolin HFA) buprenorphine 2 mg-naloxone 0.5 mg 0.5 - 1 film sublingual DAILY 07/09/23 11/03/23 11/02/23 History sublingual film (Suboxone) docusate sodium 100 mg capsule 100 mg PO BEDTIME PRN stool 07/09/23 11/03/23 11/02/23 History softener umeclidinium 62.5 mcg-vilanterol 1 inh inhalation DAILY 07/09/23 11/03/23 11/02/23 History 25 mcg/actuation powdr for inhalation (Anoro Ellipta) ipratropium 0.5 mg-albuterol 3 mg 3 ml inhalation Q6H PRN wheezing 10/18/23 11/03/23 Unknown History (2.5 mg base)/3 mL nebulization soln levothyroxine 25 mcg tablet 25 mcg PO DAILY@0600 10/18/23 11/03/23 10/18/23 History (Synthroid) acetaminophen 500 mg tablet 500 mg PO DAILY PRN Pain 11/03/23 11/03/23 Unknown History ipratropium bromide 42 mcg (0.06 2 spray intranasal QID PRN allergy 11/03/23 11/03/23 Unknown History %) nasal spray symptoms Physical Exam Vital Signs: Vital Signs: Last Vital Signs Temp 97.8 F 11/07/23 08:00 Pulse 76 11/07/23 08:00 Resp 20 11/07/23 08:00 BP 116/81 11/07/23 08:00 Pulse Ox 95 11/07/23 08:00 O2 Del Method Nasal Cannula 11/07/23 08:00 O2 Flow Rate 2 11/07/23 08:00 Oxygen Flow Rate 3 11/03/23 13:06 BMI result Body Mass Index 31.7 Const: General: no acute distress and alert Nutritional Appearance: obese Orientation/consciousness: Other orientation findings ( oriented) HEENT: Head: Yes atraumatic Eyes: General: appearance normal, both eyes and all related structures Sclerae: sclerae normal EOM: EOMs intact bilaterally Neck: Neck: Yes supple Lymphatic: no lymphadenopathy noted Resp: Effort & Inspection: normal respiratory effort and no use of accessory muscles Auscultation: clear to auscultation bilaterally Cardio: Rate: regular rate Rhythm: regular rhythm Heart sounds: no gallops, no murmurs and no rubs Skin: General skin exam: other ( warm) Extrem: General: No clubbing, No cyanosis and No edema Results Laboratory Findings 11/04/23 06:24 11/05/23 09:19 ABG, PT/INR, D-dimer: PT/INR, D-dimer PT 12.1 SEC (11.1-13.3) 11/03/23 13:11 INR 1.0 (0.9-1.1) 11/03/23 13:11 Abnormal lab findings: Abnormal Labs 11/03/23 11/03/23 11/04/23 13:11 16:06 06:24 RBC 3.89 L 3.50 L Hgb 11.4 L 10.3 L Hct 35.4 L 31.4 L Immature Gran % (Auto) 0.5 H 0.5 H Neut % (Auto) 77.2 H 90.1 H Lymph % (Auto) 10.0 L 4.8 L Lymph # (Auto) 1.1 L 0.5 L Abs Immat Gran (auto) 0.05 H 0.05 H Absolute Neuts (auto) 9.0 H BUN 27 H Creatinine 1.56 H Random Glucose 136 H 146 H Troponin I High Sens 64.3 H* 57.4 H* B-Natriuretic Peptide 613 H B.pert (TEM-PCR) Entero/Rhino (PCR) 11/04/23 11/05/23 11/05/23 09:31 06:23 09:19 RBC Hgb Hct Immature Gran % (Auto) Neut % (Auto) Lymph % (Auto) Lymph # (Auto) Abs Immat Gran (auto) Absolute Neuts (auto) BUN 40 H Creatinine Random Glucose 154 H Troponin I High Sens B-Natriuretic Peptide 453 H B.pert (TEM-PCR) Detected A Entero/Rhino (PCR) Detected A Assessment and Plan (1) Acute exacerbation of chronic obstructive airways disease: Status: Acute (2) Acute on chronic hypoxic respiratory failure: Status: Acute (3) Rhinovirus: Status: Acute (4) Pertussis: Status: Acute Plan Impression: 63-year-old lady with lung cancer on K told and advanced COPD on 2 L supplemental oxygen admitted with acute on chronic hypoxic respiratory failure secondary to exacerbation of underlying COPD secondary to pertussis/rhinovirus, now improving. Recommendations: Agree with current therapeutic regimen of empiric antibiotics, systemic glucocorticoids, and nebulized bronchodilators. Consider tapering off systemic glucocorticoids. Procedures Date of Service Date of Service: 11/07/23
--- NOTE | 2023-11-07 13:15 | P.PNIM_ITS ---
Subjective Subjective Date of Service: 11/07/23 Interval History: Seen and examined this morning Follow-up for COPD exacerbation, pertussis/rhinovirus still sob but reports some improvement Review of Systems Review of Systems: Yes all other systems are reviewed and are negative Constitutional Constitutional: Denies chills and Denies fever(s) Cardiovascular Cardiovascular: Denies chest pain and Reports dyspnea Respiratory Respiratory: Reports cough and Reports dyspnea Physical Exam 2 Vital Signs: Vital Signs: Last Vital Signs Temp 97.4 F 11/07/23 11:36 Pulse 82 11/07/23 11:36 Resp 20 11/07/23 11:36 BP 140/85 H 11/07/23 11:36 Pulse Ox 96 11/07/23 11:36 O2 Del Method Nasal Cannula 11/07/23 11:36 O2 Flow Rate 4 11/07/23 11:36 Oxygen Flow Rate 3 11/03/23 13:06 BMI result Body Mass Index 31.7 Const: General: cooperative, alert and awake Nutritional Appearance: o verweight Orientation/consciousness: patient oriented x3 Resp: Other: b/l expiratory wheezing Effort & Inspection: normal respiratory effort, able to speak in complete sentences, no respiratory distress and no use of accessory muscles Cardio: Rate: tachycardic GI: Inspection: No distended Palpation (GI): Soft to palpation and nontender Neuro: General: patient oriented x3, moves all extremities and CN's II-XI intact bilaterally Extrem: General: Yes no pedal edema Objective Data Active Medications Acetaminophen (Acetaminophen 325 Mg Tablet) 650 mg PO Q6H PRN PRN Reason: Pain, Mild (Pain Scale 1-3), fever or headache Last Admin: 11/05/23 13:25 Dose: 650 mg Documented By: NAI Albuterol/Ipratropium (Albuterol/Iprat 2.5/0.5mg 3 Ml Ampul.Neb) 3 ml INHALE RQ4H WHILE AWAKE PENDING SALE TO [facility] Last Admin: 11/07/23 11:11 Dose: 3 ml Documented By: DARBY Albuterol/Ipratropium (Albuterol/Iprat 2.5/0.5mg 3 Ml Ampul.Neb) 3 ml INHALE Q2H PRN PRN Reason: Shortness of Breath/Wheezing Atorvastatin Calcium (Atorvastatin Calcium 10 Mg Tablet) 10 mg PO BEDTIME [facility] TO [facility] Last Admin: 11/06/23 21:46 Dose: 10 mg Documented By: JEANNINE Buprenorphine/Naloxone (Buprenorphine/Naloxone 2/0.5mg Film) 1 film SUBLINGUAL DAILY [facility] Last Admin: 11/07/23 09:03 Dose: 1 film Documented By: TIM Calcium Carbonate (Calcium Carbonate 750 Mg Tab.Chew) 750 mg PO Q4H PRN PRN Reason: Heartburn Diltiazem HCl (Diltiazem Hcl Cd 180 Mg Cap.Er.24h) 180 mg PO DAILY [facility]; Protocol Last Admin: 11/07/23 09:06 Dose: 180 mg Documented By: TIM Docusate Sodium (Docusate Sodium 100 Mg Capsule) 100 mg PO BEDTIME PRN PRN Reason: stool softener Enoxaparin Sodium (Enoxaparin Sodium 40 Mg/0.4 Ml Syringe) 40 mg SUBCUT Q24H [facility] Last Admin: 11/06/23 17:33 Dose: 40 mg Documented By: TIM Folic Acid (Folic Acid 1 Mg Tablet) 1 mg PO DAILY [facility] Last Admin: 11/07/23 09:03 Dose: 1 mg Documented By: TIM Guaifenesin/Codeine Phosphate (Guaifen/Codeine Sf 200/20/10ml 10 Ml Liquid) 10 ml PO Q4H PRN PRN Reason: Cough Last Admin: 11/07/23 06:35 Dose: 10 ml Documented By: JEANNINE Comments: request for cough Azithromycin 500 mg/ Sodium (Chloride) 250 mls @ 125 mls/hr IV Q24H [facility] Last Infusion: 11/06/23 19:00 Dose: Infused Documented By: JEANNINE Ceftriaxone Sodium 1 gm/ (Sodium Chloride) 50 mls @ 100 mls/hr IV Q24H [facility] TO [facility] Last Infusion: 11/06/23 22:15 Dose: Infused Documented By: JEANNINE Levothyroxine Sodium (Levothyroxine Sodium 25 Mcg Tablet) 25 mcg PO DAILY@0600 [facility] Last Admin: 11/07/23 06:36 Dose: 25 mcg Documented By: JEANNINE Magnesium Hydroxide (Milk Of Magnesia 30 Ml Oral.Susp) 30 ml PO DAILY PRN PRN Reason: Constipation Melatonin (Melatonin 3 Mg Tablet) 6 mg PO BEDTIME PRN PRN Reason: Insomnia Last Admin: 11/05/23 21:39 Dose: 6 mg Documented By: JEANNINE Comments: pt request for sleep Methylprednisolone Sodium Succinate (Methylprednisolone Sod Succ 40 Mg/Ml Vial) 40 mg IVPUSH Q12H [facility] TO [facility] Last Admin: 11/07/23 06:35 Dose: 40 mg Documented By: JEANNINE Metoprolol Tartrate (Metoprolol Tartrate 25 Mg Tablet) 25 mg PO BID [facility] TO [facility]; Protocol Last Admin: 11/07/23 09:03 Dose: 25 mg Documented By: TIM Non-Formulary Medication (Milnacipran [Savella]) 50 mg PO BID [facility]ENDING [facility] TO [facility] Omeprazole (Omeprazole 20 Mg Capsule.) 20 mg PO DAILY@0630 [facility] TO [facility] Last Admin: 11/07/23 06:36 Dose: 20 mg Documented By: JEANNINE Paroxetine HCl (Paroxetine Hcl 40 Mg Tablet) 40 mg PO BID [facility] Last Admin: 11/07/23 09:03 Dose: 40 mg Documented By: TIM Sodium Chloride (0.9 % Sodium Chloride Flush 3 Ml Syringe) 3 ml IVFLUSH QSHIFT PENDING SALE TO [facility] Last Admin: 11/07/23 09:03 Dose: 3 ml Documented By: TIM Theophylline (Theophylline Anhydrous Er 400 Mg Tab.Er.24h) 400 mg PO DAILY [facility] Last Admin: 11/07/23 09:03 Dose: 400 mg Documented By: TIM Labs 11/04/23 06:24 11/05/23 09:19 Assessment and Plan (1) Pertussis: Status: Acute (2) Rhinovirus: Status: Acute (3) Acute on chronic hypoxic respiratory failure: Status: Acute Plan 63-year-old female with a past medical history of non-small cell lung cancer status post left upper lobe and right upper lobe wedge resection, with metastases to the brain, liver, and bones, is currently undergoing palliative chemotherapy under the care of Dr. Arvind pereira chemo on 10/15/23. She also has a history of breast cancer, depression, hepatitis C, hypertension, and COPD requiring home oxygen therapy at 3 liters and actively smoking. Additionally, she has paroxysmal atrial fibrillation and is not on anticoagulation due to a history of low platelets, as well as a history of anemia and opioid dependence. Pt admitted for acute on chronic hypoxemic respiratory failure secondary to COPD exacerbation and CHF exacerbation initially in atrial fibrillation with RVR acute on chronic hypoxemic respiratory failure secondary to exacerbation of COPD/probable viral pneumonia due to underlying pertussis/rhino virus (RPP + for both) continue IV methylprednisolone 40 mg b.i.d, can likely begin to wean in am Initially treated with IV Lasix due to concern for underlying CHF exacerbation, now renal function trending up, lasix stopped DuoNebs q.4h while awake continue IV azithromycin, ceftriaxone Continue baseline supplemental oxygen 3 L via nasal cannula HFpEF Echo with preserved ejection fraction, mild aortic valve stenosis, mild pulmonary hypertension, severe mitral annular calcification. Unable to determine diastolic dysfunction BNP elevated from baseline on arrival CHF Initially thought to be contributing to respiratory failure, given IV Lasix but will stop IV Lasix given increasing renal function not on diuretics at baseline paroxysmal atrial fibrillation with RVR Received multiple doses of IV medication in the emergency department, heart rate improved on admission not on anticoagulation reportedly due to history of thrombocytopenia and anemia continue metoprolol, diltiazem for rate chronically elevated troponins no chest pain, EKG without any acute ischemic changes trops flat monitor on telemetry metastatic [id number] lung cancer s/p wedge resection of the left and right upper lobes with metastasis to brain, liver, and bones on palliative chemotherapy, last chemo 10/14 outpatient follow-up with Dr. Samuels hypertension Continue diltiazem, metoprolol hydrochlorothiazide on hold mood disorder continue home medications opioid dependence continue Suboxone HLD statin Hypothyroidism Continue Synthroid DVT prophylaxis-Lovenox Full code Patient requires ongoing inpatient stay for management of acute on chronic hypoxemic respiratory failure secondary to COPD requiring IV steroids, close monitoring of respiratory status to prevent decompensation. Will also require ongoing cardiac monitoring given patient was in paroxysmal atrial fibrillation with RVR on arrival rate now controlled Quality Stroke Does the patient have a stroke diagnosis?: No VTE Prior VTE?: No VTE Risk Level:: Medical - moderate - high VTE Device Contraindication: Treatment Not Indicated VTE Drug Contraindication: N/A - Med Ordered
[2023-11-07] MEDS: Azithromycin 500 MG in 0.9 % Sodium Chloride 250 ML 125 MG IV (17:31)
[2023-11-07] MEDS: Enoxaparin Sodium 40 MG/0.4 ML SYRINGE SUBCUT (17:34)
[2023-11-07] MEDS: Atorvastatin Calcium 10 MG TABLET PO (20:04)
[2023-11-07] MEDS: cefTRIAXone sodium 1 GM in 0.9 % Sodium Chloride 50 ML IV (20:04)
[2023-11-07] MEDS: Acetaminophen 325 MG TABLET 650 MG PO (20:42)
[2023-11-08] VITALS (12 sets, daily range): BP systolic 125–163; BP diastolic 85–120; PULSE 67–125; RESP 18–24; TEMP 36–37.2; O2SAT 93–100
[2023-11-08] MEDS: guaiFEN/Codeine SF 200/20/10ML 10 ML LIQUID PO ×5 (00:13→22:50)
[2023-11-08] MEDS: Omeprazole 20 MG CAPSULE.DR PO (05:51)
[2023-11-08] MEDS: methylPREDNISolone Sod Succ 40 MG/ML VIAL IVPUSH ×2 (05:51→18:19)
[2023-11-08] MEDS: Levothyroxine Sodium 25 MCG TABLET PO (05:51)
[2023-11-08 06:37] LABS: Anion Gap 13 (12-20); Blood Urea Nitrogen 48 mg/dL (9-16); Calcium 9.6 mg/dL (8.4-10.2); Carbon Dioxide 32 mmol/L (22-29); Chloride 99 mmol/L (96-108); Creatinine Clr Calc Pharmacy 41.6; Estimated Glomerular Filt Rate 32; Glucose Random 154 mg/dL (60-115); Potassium 4.4 mmol/L (3.3-5.1); Sodium 140 mmol/L (135-145)
[2023-11-08] MEDS: Albuterol/Iprat 2.5/0.5MG 3 ML AMPUL.NEB INHALE ×2 (07:37→11:32)
[2023-11-08] MEDS: 0.9 % Sodium Chloride Flush 3 ML SYRINGE IVFLUSH ×2 (08:24→18:21)
[2023-11-08] MEDS: dilTIAZem HCL CD 180 MG CAP.ER.24H PO (08:27)
[2023-11-08] MEDS: Metoprolol Tartrate 25 MG TABLET PO ×2 (08:27→14:16)
[2023-11-08] MEDS: Theophylline Anhydrous ER 400 MG TAB.ER.24H PO (08:27)
[2023-11-08] MEDS: Buprenorphine/Naloxone 2/0.5mg FILM 1 FILM SUBLINGUAL (08:27)
[2023-11-08] MEDS: PARoxetine HCL 40 MG TABLET PO ×2 (08:27→20:04)
[2023-11-08] MEDS: Folic Acid 1 MG TABLET PO (08:27)
[2023-11-08 08:45] LABS: Theophylline 3.1
--- NOTE | 2023-11-08 13:11 | P.PNIM_ITS ---
Subjective Subjective Date of Service: 11/08/23 Interval History: still coughing and wheezing no fever Review of Systems Review of Systems: Yes all other systems are reviewed and are negative Physical Exam 2 Vital Signs: Vital Signs: Last Vital Signs Temp 97.7 F 11/08/23 07:54 Pulse 125 H 11/08/23 11:33 Resp 19 11/08/23 11:33 BP 142/97 H 11/08/23 07:54 Pulse Ox 100 11/08/23 07:54 O2 Del Method Nasal Cannula 11/08/23 07:54 O2 Flow Rate 4 11/08/23 07:54 Oxygen Flow Rate 3 11/03/23 13:06 BMI result Body Mass Index 31.7 Gen: in no acute distress HEENT: sclera anicteric, moist mucus membranes Neck: supple Lungs: diffuse expiratory wheezing Heart: irregular, rapid, no murmurs Abd: soft, non-tender, non-distended Ext: no edema Skin: warm/well-perfused Neuro: alert and oriented x3, no focal findings Psych: appropriate affect Objective Data Active Medications Acetaminophen (Acetaminophen 325 Mg Tablet) 650 mg PO Q6H PRN PRN Reason: Pain, Mild (Pain Scale 1-3), fever or headache Last Admin: 11/07/23 20:42 Dose: 650 mg Documented By: BRYAN Albuterol/Ipratropium (Albuterol/Iprat 2.5/0.5mg 3 Ml Ampul.Neb) 3 ml INHALE RQ4H WHILE AWAKE [facility] Last Admin: 11/08/23 11:32 Dose: 3 ml Documented By: TAYLOR Albuterol/Ipratropium (Albuterol/Iprat 2.5/0.5mg 3 Ml Ampul.Neb) 3 ml INHALE Q2H PRN PRN Reason: Shortness of Breath/Wheezing Atorvastatin Calcium (Atorvastatin Calcium 10 Mg Tablet) 10 mg PO BEDTIME [facility] Last Admin: 11/07/23 20:04 Dose: 10 mg Documented By: BRYAN Buprenorphine/Naloxone (Buprenorphine/Naloxone 2/0.5mg Film) 1 film SUBLINGUAL DAILY [facility] Last Admin: 11/08/23 08:27 Dose: 1 film Documented By: KALPANA Calcium Carbonate (Calcium Carbonate 750 Mg Tab.Chew) 750 mg PO Q4H PRN PRN Reason: Heartburn Diltiazem HCl (Diltiazem Hcl Cd 180 Mg Cap.Er.24h) 180 mg PO DAILY [facility]; Protocol Last Admin: 11/08/23 08:27 Dose: 180 mg Documented By: KALPANA Docusate Sodium (Docusate Sodium 100 Mg Capsule) 100 mg PO BEDTIME PRN PRN Reason: stool softener Enoxaparin Sodium (Enoxaparin Sodium 40 Mg/0.4 Ml Syringe) 40 mg SUBCUT Q24H [facility] Last Admin: 11/07/23 17:34 Dose: 40 mg Documented By: TIM Folic Acid (Folic Acid 1 Mg Tablet) 1 mg PO DAILY [facility] Last Admin: 11/08/23 08:27 Dose: 1 mg Documented By: KALPANA Guaifenesin/Codeine Phosphate (Guaifen/Codeine Sf 200/20/10ml 10 Ml Liquid) 10 ml PO Q4H PRN PRN Reason: Cough Last Admin: 11/08/23 09:49 Dose: 10 ml Documented By: KALPANA Azithromycin 500 mg/ Sodium (Chloride) 250 mls @ 125 mls/hr IV Q24H [facility] Last Infusion: 11/07/23 19:51 Dose: Infused Documented By: BRYAN Ceftriaxone Sodium 1 gm/ (Sodium Chloride) 50 mls @ 100 mls/hr IV Q24H [facility] Last Infusion: 11/07/23 21:06 Dose: Infused Documented By: BRYAN Levothyroxine Sodium (Levothyroxine Sodium 25 Mcg Tablet) 25 mcg PO DAILY@0600 [facility] Last Admin: 11/08/23 05:51 Dose: 25 mcg Documented By: CHINO Magnesium Hydroxide (Milk Of Magnesia 30 Ml Oral.Susp) 30 ml PO DAILY PRN PRN Reason: Constipation Melatonin (Melatonin 3 Mg Tablet) 6 mg PO BEDTIME PRN PRN Reason: Insomnia Last Admin: 11/05/23 21:39 Dose: 6 mg Documented By: JEANNINE Comments: pt request for sleep Methylprednisolone Sodium Succinate (Methylprednisolone Sod Succ 40 Mg/Ml Vial) 40 mg IVPUSH Q12H [facility] Last Admin: 11/08/23 05:51 Dose: 40 mg Documented By: CHINO Metoprolol Tartrate (Metoprolol Tartrate 25 Mg Tablet) 25 mg PO BID [facility]; Protocol Last Admin: 11/08/23 08:27 Dose: 25 mg Documented By: KALPANA Non-Formulary Medication (Milnacipran [Savella]) 50 mg PO BID [facility] Omeprazole (Omeprazole 20 Mg Capsule.) 20 mg PO DAILY@0630 [facility] Last Admin: 11/08/23 05:51 Dose: 20 mg Documented By: CHINO Paroxetine HCl (Paroxetine Hcl 40 Mg Tablet) 40 mg PO BID [facility] Last Admin: 11/08/23 08:27 Dose: 40 mg Documented By: KALPANA Sodium Chloride (0.9 % Sodium Chloride Flush 3 Ml Syringe) 3 ml IVFLUSH QSHIFT [facility] Last Admin: 11/08/23 08:24 Dose: 3 ml Documented By: KALPANA Theophylline (Theophylline Anhydrous Er 400 Mg Tab.Er.24h) 400 mg PO DAILY [facility] Last Admin: 11/08/23 08:27 Dose: 400 mg Documented By: KALPANA Labs 11/04/23 06:24 11/08/23 06:03 Labs: Laboratory Results - last 24 hr 11/05/23 11/08/23 07:04 06:03 Hold Purple Top SEE NOTE Anion Gap 13 Estim Creat Clear Calc 41.6 Estimated GFR 32 Random Glucose 154 H Calcium 9.6 D Theophylline 3.1 Assessment and Plan (1) Pertussis: Status: Acute (2) Rhinovirus: Status: Acute (3) Acute on chronic hypoxic respiratory failure: Status: Acute Plan d6 63yo F with NSCLC s/p LITA + RUL wedge resections and with 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 Admitted for acute/chronic hypoxia due to COPD + CHF exacerbations with AF/RVR acute/chronic hypoxic respiratory failure due to COPD exacerbation with pertussis and rhinovirus infection - continue IV methlyprednisnolone 40 mg q12h, ceftriaxone 11/02-, azithromycin 11/02- - change albuterol to levalbuterol - on baseline of 3L O2 - droplet precautions acute/chronic HFpEF exacerbation - appears euvolemic, furosemide stopped. TTE 11/04/23: - The left ventricular systolic function is normal. The visually estimated ejection fraction is between 60-65%. - There is moderate calcification of the aortic valve. There is mild aortic valve stenosis. - There is severe mitral annular calcification. - Mild pulmonary hypertension is present. AF/RVR - needs better rate control; increase metoprolol tartrate from 25 to 50 mg bid; continue diltiazem 180 mg daily - not on AC due to hx anemia + thrombocytopenia metastatic [id number] lung cancer - s/p wedge resection of the left and right upper lobes with metastasis to brain, liver, and bones on palliative chemotherapy; last chemo 10/15/23; outpatient follow-up with Dr Samuels HTN - continue diltiazem + metoprolol as above; HCTZ held mood disorder - continue paroxetine opioid dependence - continue Suboxone HLD - continue statin hypothyroidism - continue LT4 VTE ppx - LMWH dispo - TBD In my clinical judgment, the patient requires continued inpatient hospitalization for the following reasons: wheezing, resp failure, AF/RVR Total time managing care of this patient today: 45 minutes. Quality Stroke Does the patient have a stroke diagnosis?: No VTE Prior VTE?: No VTE Risk Level:: Medical - moderate - high VTE Device Contraindication: Treatment Not Indicated VTE Drug Contraindication: N/A - Med Ordered
[2023-11-08] MEDS: levalbuterol HCL 1.25 MG, Ipratropium Bromide 0.5 MG INHALE ×3 (15:08→23:33)
--- NOTE | 2023-11-08 15:34 | MHC.CM.PN ---
EMR reviewed and per MD rounds, pt is not medically cleared for discharge due to ongoing management of COPD/CHF exacerbation.
[2023-11-08] MEDS: Enoxaparin Sodium 40 MG/0.4 ML SYRINGE SUBCUT (18:20)
[2023-11-08] MEDS: Azithromycin 500 MG in 0.9 % Sodium Chloride 250 ML 125 MG IV (18:24)
[2023-11-08] MEDS: Atorvastatin Calcium 10 MG TABLET PO (20:04)
[2023-11-08] MEDS: Metoprolol Tartrate 50 MG TABLET PO (20:04)
--- NOTE | 2023-11-08 20:11 | PC.NURSE ---
assumed care of this patient at 1515. pt alert and oriented x4, VSS as noted. Pt tolerated meds well and denied pain. she c/o increasing cough and had PRN Guaif w/codeine w/ + effect. Plan of care progressing.
[2023-11-08] MEDS: cefTRIAXone sodium 1 GM in 0.9 % Sodium Chloride 50 ML IV (20:54)
[2023-11-09] VITALS (8 sets, daily range): BP systolic 114–141; BP diastolic 86–100; PULSE 92–120; RESP 17–20; TEMP 36.1–36.4; O2SAT 94–98
[2023-11-09] MEDS: guaiFEN/Codeine SF 200/20/10ML 10 ML LIQUID PO ×3 (03:34→20:27)
[2023-11-09] MEDS: Omeprazole 20 MG CAPSULE.DR PO (06:27)
[2023-11-09] MEDS: Levothyroxine Sodium 25 MCG TABLET PO (06:27)
[2023-11-09] MEDS: methylPREDNISolone Sod Succ 40 MG/ML VIAL IVPUSH ×2 (06:27→18:20)
[2023-11-09 06:58] LABS: Anion Gap 16 (12-20); Blood Urea Nitrogen 43 mg/dL (9-16); Calcium 9.9 mg/dL (8.4-10.2); Carbon Dioxide 35 mmol/L (22-29); Chloride 95 mmol/L (96-108); Creatinine Clr Calc Pharmacy 52.3; Estimated Glomerular Filt Rate 42; Glucose Random 165 mg/dL (60-115); Potassium 4.6 mmol/L (3.3-5.1); Sodium 141 mmol/L (135-145)
[2023-11-09 07:00] LABS: B Type Natriuretic Peptide 756 pg/mL (<100)
[2023-11-09] MEDS: levalbuterol HCL 1.25 MG, Ipratropium Bromide 0.5 MG INHALE ×3 (08:13→15:15)
[2023-11-09] MEDS: Furosemide 40 MG/4 ML VIAL IVPUSH (08:45)
[2023-11-09] MEDS: 0.9 % Sodium Chloride Flush 3 ML SYRINGE IVFLUSH ×3 (08:45→17:48)
[2023-11-09] MEDS: Folic Acid 1 MG TABLET PO (08:47)
[2023-11-09] MEDS: Metoprolol Tartrate 50 MG TABLET PO ×2 (08:47→20:24)
[2023-11-09] MEDS: Theophylline Anhydrous ER 400 MG TAB.ER.24H PO (08:47)
[2023-11-09] MEDS: dilTIAZem HCL CD 180 MG CAP.ER.24H PO (08:47)
[2023-11-09] MEDS: PARoxetine HCL 40 MG TABLET PO ×2 (08:47→20:25)
[2023-11-09] MEDS: Buprenorphine/Naloxone 2/0.5mg FILM 1 FILM SUBLINGUAL (08:50)
[2023-11-09] MEDS: dilTIAZem HCL 60 MG TABLET PO (11:17)
--- NOTE | 2023-11-09 11:48 | P.PNIM_ITS ---
Subjective Subjective Date of Service: 11/09/23 Interval History: coughing up a little sputum; less wheezing no chest pain diuresing Review of Systems Review of Systems: Yes all other systems are reviewed and are negative Physical Exam 2 Vital Signs: Vital Signs: Last Vital Signs Temp 96.9 F 11/09/23 11:17 Pulse 108 H 11/09/23 11:25 Resp 18 11/09/23 11:25 BP 136/100 H 11/09/23 11:17 Pulse Ox 98 11/09/23 11:17 O2 Del Method Nasal Cannula 11/09/23 11:17 O2 Flow Rate 2 11/09/23 11:17 Oxygen Flow Rate 3 11/03/23 13:06 BMI result Body Mass Index 31.7 Gen: in no acute distress HEENT: sclera anicteric, moist mucus membranes Neck: supple Lungs: diffuse expiratory wheezing though improved air entry from yesterday Heart: irregular, rapid, no murmurs Abd: soft, non-tender, non-distended Ext: no edema Skin: warm/well-perfused Neuro: alert and oriented x3, no focal findings Psych: appropriate affect Objective Data Active Medications Acetaminophen (Acetaminophen 325 Mg Tablet) 650 mg PO Q6H PRN PRN Reason: Pain, Mild (Pain Scale 1-3), fever or headache Last Admin: 11/07/23 20:42 Dose: 650 mg Documented By: BRYAN Atorvastatin Calcium (Atorvastatin Calcium 10 Mg Tablet) 10 mg PO BEDTIME [facility] Last Admin: 11/08/23 20:04 Dose: 10 mg Documented By: NGOZI Buprenorphine/Naloxone (Buprenorphine/Naloxone 2/0.5mg Film) 1 film SUBLINGUAL DAILY [facility] Last Admin: 11/09/23 08:50 Dose: 1 film Documented By: KALPANA Calcium Carbonate (Calcium Carbonate 750 Mg Tab.Chew) 750 mg PO Q4H PRN PRN Reason: Heartburn Levalbuterol HCl 1.25 mg/ (Ipratropium [place] 0.5 mg) 0 mg INHALE RQ4H [facility] Last Admin: 11/09/23 11:25 Dose: 2.5 dose Documented By: GLENN Diltiazem HCl (Diltiazem Hcl Cd 240 Mg Cap.Er.Deg) 240 mg PO DAILY [facility]; Protocol Docusate Sodium (Docusate Sodium 100 Mg Capsule) 100 mg PO BEDTIME PRN PRN Reason: stool softener Enoxaparin Sodium (Enoxaparin Sodium 40 Mg/0.4 Ml Syringe) 40 mg SUBCUT Q24H [facility] Last Admin: 11/08/23 18:20 Dose: 40 mg Documented By: WALE Folic Acid (Folic Acid 1 Mg Tablet) 1 mg PO DAILY [facility] Last Admin: 11/09/23 08:47 Dose: 1 mg Documented By: KALPANA Furosemide (Furosemide 40 Mg/4 Ml Vial) 40 mg IVPUSH DAILY [facility]; Protocol Last Admin: 11/09/23 08:45 Dose: 40 mg Documented By: KALPANA Guaifenesin/Codeine Phosphate (Guaifen/Codeine Sf 200/20/10ml 10 Ml Liquid) 10 ml PO Q4H PRN PRN Reason: Cough Last Admin: 11/09/23 08:47 Dose: 10 ml Documented By: KALPANA Azithromycin 500 mg/ Sodium (Chloride) 250 mls @ 125 mls/hr IV Q24H [facility] Last Infusion: 11/08/23 20:24 Dose: Infused Documented By: NGOZI Ceftriaxone Sodium 1 gm/ (Sodium Chloride) 50 mls @ 100 mls/hr IV Q24H [facility] Last Infusion: 11/08/23 21:24 Dose: Infused Documented By: NGOZI Levalbuterol HCl (Levalbuterol Hcl 1.25 Mg/3 Ml Vial.Neb) 1.25 mg INHALE Q2H PRN PRN Reason: shortness of breath or wheeze Levothyroxine Sodium (Levothyroxine Sodium 25 Mcg Tablet) 25 mcg PO DAILY@0600 [facility] Last Admin: 11/09/23 06:27 Dose: 25 mcg Documented By: NGOZI Magnesium Hydroxide (Milk Of Magnesia 30 Ml Oral.Susp) 30 ml PO DAILY PRN PRN Reason: Constipation Melatonin (Melatonin 3 Mg Tablet) 6 mg PO BEDTIME PRN PRN Reason: Insomnia Last Admin: 11/05/23 21:39 Dose: 6 mg Documented By: JEANNINE Comments: pt request for sleep Methylprednisolone Sodium Succinate (Methylprednisolone Sod Succ 40 Mg/Ml Vial) 40 mg IVPUSH Q12H [facility] Last Admin: 11/09/23 06:27 Dose: 40 mg Documented By: NGOZI Metoprolol Tartrate (Metoprolol Tartrate 50 Mg Tablet) 50 mg PO BID [facility]; Protocol Last Admin: 11/09/23 08:47 Dose: 50 mg Documented By: KALPANA Non-Formulary Medication (Milnacipran [Savella]) 50 mg PO BID [facility] Omeprazole (Omeprazole 20 Mg Capsule.) 20 mg PO DAILY@0630 [facility] Last Admin: 11/09/23 06:27 Dose: 20 mg Documented By: NGOZI Paroxetine HCl (Paroxetine Hcl 40 Mg Tablet) 40 mg PO BID [facility] Last Admin: 11/09/23 08:47 Dose: 40 mg Documented By: KALPANA Sodium Chloride (0.9 % Sodium Chloride Flush 3 Ml Syringe) 3 ml IVFLUSH QSHIFT [facility] Last Admin: 11/09/23 08:45 Dose: 3 ml Documented By: KALPANA Theophylline (Theophylline Anhydrous Er 400 Mg Tab.Er.24h) 400 mg PO DAILY [facility] Last Admin: 11/09/23 08:47 Dose: 400 mg Documented By: KALPANA Labs 11/04/23 06:24 11/09/23 05:58 Labs: Laboratory Results - last 24 hr 11/09/23 05:58 Anion Gap 16 Estim Creat Clear Calc 52.3 Estimated GFR 42 Random Glucose 165 H Calcium 9.9 Magnesium 2.0 B-Natriuretic Peptide 756 H Assessment and Plan (1) Pertussis: Status: Acute (2) Rhinovirus: Status: Acute (3) Acute on chronic hypoxic respiratory failure: Status: Acute Plan d7 63yo F with NSCLC s/p LITA + RUL wedge resections and with 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 Admitted for acute/chronic hypoxia due to COPD + CHF exacerbations with AF/RVR acute/chronic hypoxic respiratory failure due to COPD exacerbation with pertussis and rhinovirus infection - continue IV methlyprednisnolone 40 mg q12h, ceftriaxone 11/02-, azithromycin 11/02- - changed albuterol to levalbuterol - on baseline of 2-3L O2 - droplet precautions acute/chronic HFpEF exacerbation - resume furosemide IV for another 1-2 doses - TTE 11/04/23: - The left ventricular systolic function is normal. The visually estimated ejection fraction is between 60-65%. - There is moderate calcification of the aortic valve. There is mild aortic valve stenosis. - There is severe mitral annular calcification. - Mild pulmonary hypertension is present. AF/RVR - needs better rate control; increased metoprolol tartrate from 25 to 50 mg bid; increase diltiazem from 180 to 240 mg daily - not on AC due to hx anemia + thrombocytopenia metastatic [id number] lung cancer - s/p wedge resection of the left and right upper lobes with metastasis to brain, liver, and bones on palliative chemotherapy; last chemo 10/15/23; outpatient follow-up with Dr Samuels HTN - continue diltiazem + metoprolol as above; HCTZ held mood disorder - continue paroxetine opioid dependence - continue Suboxone HLD - continue statin hypothyroidism - continue LT4 VTE ppx - LMWH dispo - home with VNA possibly in next 1-2d In my clinical judgment, the patient requires continued inpatient hospitalization for the following reasons: wheezing, resp failure, AF/RVR Total time managing care of this patient today: 35 minutes. Quality Stroke Does the patient have a stroke diagnosis?: No VTE Prior VTE?: No VTE Risk Level:: Medical - moderate - high VTE Device Contraindication: Treatment Not Indicated VTE Drug Contraindication: N/A - Med Ordered
[2023-11-09] MEDS: polyethylene glycoL 3350 17 GM POWD.PACK PO (12:59)
[2023-11-09] MEDS: Azithromycin 500 MG in 0.9 % Sodium Chloride 250 ML 125 MG IV (17:47)
[2023-11-09] MEDS: Enoxaparin Sodium 40 MG/0.4 ML SYRINGE SUBCUT (17:48)
[2023-11-09] MEDS: Atorvastatin Calcium 10 MG TABLET PO (20:25)
[2023-11-09] MEDS: Docusate Sodium 100 MG CAPSULE PO (20:29)
[2023-11-09] MEDS: cefTRIAXone sodium 1 GM in 0.9 % Sodium Chloride 50 ML IV (20:32)
[2023-11-10] VITALS (13 sets, daily range): BP systolic 113–170; BP diastolic 76–120; PULSE 100–150; RESP 16–20; TEMP 36–37; O2SAT 94–99
--- NOTE | 2023-11-10 | ECG_ITS ---
Test Reason : afib Blood Pressure : / mmHG Vent. Rate : 134 BPM Atrial Rate : 000 BPM P-R Int : 000 ms QRS Dur : 074 ms QT Int : 252 ms P-R-T Axes : 000 041 031 degrees QTc Int : 376 ms Atrial fibrillation with rapid ventricular response Nonspecific ST abnormality Abnormal ECG When compared with ECG of 10-NOV-2023 00:44, No significant change was found Referred By: Jim Parish Electronically Signed By:Rc Roberts
[2023-11-10] MEDS: 0.9 % Sodium Chloride Flush 3 ML SYRINGE IVFLUSH ×3 (00:19→16:38)
[2023-11-10] MEDS: guaiFEN/Codeine SF 200/20/10ML 10 ML LIQUID PO ×3 (00:21→20:25)
--- NOTE | 2023-11-10 00:44 | ECG_ITS ---
Test Reason : AFIB Blood Pressure : / mmHG Vent. Rate : 143 BPM Atrial Rate : 000 BPM P-R Int : 000 ms QRS Dur : 070 ms QT Int : 296 ms P-R-T Axes : 000 040 040 degrees QTc Int : 456 ms Atrial fibrillation with rapid ventricular response Nonspecific ST abnormality Abnormal ECG When compared with ECG of 10-NOV-2023 00:42, Heart rate has increased Referred By: Jim Parish Electronically Signed By:Rc Roberts
--- NOTE | 2023-11-10 00:53 | PM.EVENT ---
Event Note Date of Service: 11/10/23 Event Note: Patient with AFib with RVR with heart rate sustaining 140s to 150s. Blood pressure 168/98. Will order IV Lopressor closely monitor Time Spent With Patient Time: Total time managing care of this patient today ____ minutes.
[2023-11-10] MEDS: Metoprolol Tartrate 5 MG/5 ML VIAL IVPUSH (01:06)
[2023-11-10] MEDS: Acetaminophen 325 MG TABLET 650 MG PO (05:01)
[2023-11-10] MEDS: Levothyroxine Sodium 25 MCG TABLET PO (05:01)
[2023-11-10] MEDS: methylPREDNISolone Sod Succ 40 MG/ML VIAL IVPUSH (05:02)
[2023-11-10] MEDS: Omeprazole 20 MG CAPSULE.DR PO (05:02)
[2023-11-10] MEDS: levalbuterol HCL 1.25 MG, Ipratropium Bromide 0.5 MG INHALE ×5 (05:05→19:18)
[2023-11-10 06:24] LABS: Venous Blood Gas Refer to POC result
[2023-11-10 06:27] LABS: VBG Base Excess 13.2 mmol/L; VBG HCO3 39 mmol/L (22-26); VBG pCO2 56 mmHg; VBG pH 7.44 (7.32-7.43); VBG pO2 55 mmHg
[2023-11-10 06:47] LABS: Anion Gap 15 (12-20); B Type Natriuretic Peptide 599 pg/mL (<100); Blood Urea Nitrogen 49 mg/dL (9-16); Carbon Dioxide 35 mmol/L (22-29); Chloride 94 mmol/L (96-108); Estimated Glomerular Filt Rate 40; Glucose Random 177 mg/dL (60-115); Magnesium 1.9 mg/dL (1.6-2.6); Potassium 4.5 mmol/L (3.3-5.1); Sodium 139 mmol/L (135-145)
[2023-11-10] MEDS: polyethylene glycoL 3350 17 GM POWD.PACK PO (08:20)
[2023-11-10] MEDS: dilTIAZem HCL CD 180 MG CAP.ER.24H 360 MG PO (08:20)
[2023-11-10] MEDS: PARoxetine HCL 40 MG TABLET PO ×2 (08:20→20:26)
[2023-11-10] MEDS: Theophylline Anhydrous ER 400 MG TAB.ER.24H PO (08:20)
[2023-11-10] MEDS: Metoprolol Tartrate 50 MG TABLET PO ×2 (08:21→20:25)
[2023-11-10] MEDS: Buprenorphine/Naloxone 2/0.5mg FILM 1 FILM SUBLINGUAL (08:21)
[2023-11-10] MEDS: Folic Acid 1 MG TABLET PO (08:21)
--- NOTE | 2023-11-10 09:23 | P.PNIM_ITS ---
Subjective Subjective Date of Service: 11/10/23 Interval History: feels short of breath though wheezing has resolved AF/RVR in 130s no chest pain Review of Systems Review of Systems: Yes all other systems are reviewed and are negative Physical Exam 2 Vital Signs: Vital Signs: Last Vital Signs Temp 97.0 F 11/10/23 07:34 Pulse 116 H 11/10/23 07:34 Resp 18 11/10/23 07:34 BP 165/94 H 11/10/23 07:34 Pulse Ox 98 11/10/23 07:34 O2 Del Method Nasal Cannula 11/10/23 07:34 O2 Flow Rate 4 11/10/23 07:34 Oxygen Flow Rate 3 11/03/23 13:06 BMI result Body Mass Index 31.7 Gen: in no acute distress HEENT: sclera anicteric, moist mucus membranes Neck: supple Lungs: diminished air entry Heart: irregular, rapid, no murmurs Abd: soft, non-tender, non-distended Ext: no edema Skin: warm/well-perfused Neuro: alert and oriented x3, no focal findings Psych: appropriate affect Objective Data Active Medications Acetaminophen (Acetaminophen 325 Mg Tablet) 650 mg PO Q6H PRN PRN Reason: Pain, Mild (Pain Scale 1-3), fever or headache Last Admin: 11/10/23 05:01 Dose: 650 mg Documented By: CAMPBELL Atorvastatin Calcium (Atorvastatin Calcium 10 Mg Tablet) 10 mg PO BEDTIME [facility] Last Admin: 11/09/23 20:25 Dose: 10 mg Documented By: NGOZI Buprenorphine/Naloxone (Buprenorphine/Naloxone 2/0.5mg Film) 1 film SUBLINGUAL DAILY [facility] Last Admin: 11/10/23 08:21 Dose: 1 film Documented By: JOHNATHAN Calcium Carbonate (Calcium Carbonate 750 Mg Tab.Chew) 750 mg PO Q4H PRN PRN Reason: Heartburn Levalbuterol HCl 1.25 mg/ (Ipratropium [place] 0.5 mg) 0 mg INHALE RQ4H [facility] Last Admin: 11/10/23 07:30 Dose: 5.5 dose Documented By: QUINN Diltiazem HCl (Diltiazem Hcl Cd 180 Mg Cap.Er.24h) 360 mg PO DAILY [facility]; Protocol Last Admin: 11/10/23 08:20 Dose: 360 mg Documented By: JOHNATHAN Docusate Sodium (Docusate Sodium 100 Mg Capsule) 100 mg PO BEDTIME PRN PRN Reason: stool softener Last Admin: 11/09/23 20:29 Dose: 100 mg Documented By: NGOZI Enoxaparin Sodium (Enoxaparin Sodium 40 Mg/0.4 Ml Syringe) 40 mg SUBCUT Q24H [facility] Last Admin: 11/09/23 17:48 Dose: 40 mg Documented By: GRACIE Folic Acid (Folic Acid 1 Mg Tablet) 1 mg PO DAILY [facility] Last Admin: 11/10/23 08:21 Dose: 1 mg Documented By: JOHNATHAN Furosemide (Furosemide 40 Mg Tablet) 40 mg PO DAILY [facility]; Protocol Guaifenesin/Codeine Phosphate (Guaifen/Codeine Sf 200/20/10ml 10 Ml Liquid) 10 ml PO Q4H PRN PRN Reason: Cough Last Admin: 11/10/23 05:01 Dose: 10 ml Documented By: CAMPBELL Azithromycin 500 mg/ Sodium (Chloride) 250 mls @ 125 mls/hr IV Q24H [facility] Last Infusion: 11/09/23 19:47 Dose: Infused Documented By: NGOZI Ceftriaxone Sodium 1 gm/ (Sodium Chloride) 50 mls @ 100 mls/hr IV Q24H [facility] Last Infusion: 11/09/23 21:02 Dose: Infused Documented By: NGOZI Levalbuterol HCl (Levalbuterol Hcl 1.25 Mg/3 Ml Vial.Neb) 1.25 mg INHALE Q2H PRN PRN Reason: shortness of breath or wheeze Levothyroxine Sodium (Levothyroxine Sodium 25 Mcg Tablet) 25 mcg PO DAILY@0600 [facility] Last Admin: 11/10/23 05:01 Dose: 25 mcg Documented By: CAMPBELL Magnesium Hydroxide (Milk Of Magnesia 30 Ml Oral.Susp) 30 ml PO DAILY PRN PRN Reason: Constipation Melatonin (Melatonin 3 Mg Tablet) 6 mg PO BEDTIME PRN PRN Reason: Insomnia Last Admin: 11/05/23 21:39 Dose: 6 mg Documented By: JEANNINE Comments: pt request for sleep Methylprednisolone Sodium Succinate (Methylprednisolone Sod Succ 40 Mg/Ml Vial) 40 mg IVPUSH Q12H [facility] Last Admin: 11/10/23 05:02 Dose: 40 mg Documented By: CAMPBELL Metoprolol Tartrate (Metoprolol Tartrate 50 Mg Tablet) 50 mg PO BID [facility]; Protocol Last Admin: 11/10/23 08:21 Dose: 50 mg Documented By: JOHNATHAN Non-Formulary Medication (Milnacipran [Savella]) 50 mg PO BID [facility] Omeprazole (Omeprazole 20 Mg Capsule.) 20 mg PO DAILY@0630 [facility] Last Admin: 11/10/23 05:02 Dose: 20 mg Documented By: CAMPBELL Paroxetine HCl (Paroxetine Hcl 40 Mg Tablet) 40 mg PO BID [facility] Last Admin: 11/10/23 08:20 Dose: 40 mg Documented By: JOHNATHAN Polyethylene Glycol (Polyethylene Glycol 3350 17 Gm Powd.Pack) 17 gm PO DAILY [facility] Last Admin: 11/10/23 08:20 Dose: 17 gm Documented By: JOHNATHAN Sodium Chloride (0.9 % Sodium Chloride Flush 3 Ml Syringe) 3 ml IVFLUSH QSHIFT [facility] Last Admin: 11/10/23 08:21 Dose: 3 ml Documented By: JOHNATHAN Theophylline (Theophylline Anhydrous Er 400 Mg Tab.Er.24h) 400 mg PO DAILY [facility] Last Admin: 11/10/23 08:20 Dose: 400 mg Documented By: JOHNATHAN Labs 11/04/23 06:24 11/10/23 06:13 Labs: Laboratory Results - last 24 hr 11/10/23 11/10/23 06:13 06:18 VBG pH 7.44 H VBG pCO2 56 VBG pO2 55 VBG HCO3 39 H VBG O2 Saturation 84.0 VBG Base Excess 13.2 Anion Gap 15 Estim Creat Clear Calc 50.0 Estimated GFR 40 Random Glucose 177 H Calcium 10.0 Magnesium 1.9 B-Natriuretic Peptide 599 H Assessment and Plan (1) Pertussis: Status: Acute (2) Rhinovirus: Status: Acute (3) Acute on chronic hypoxic respiratory failure: Status: Acute Plan d8 63yo F with NSCLC s/p LITA + RUL wedge resections and with 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 Admitted for acute/chronic hypoxia due to COPD + CHF exacerbations with AF/RVR acute/chronic hypoxic respiratory failure due to COPD exacerbation with pertussis and rhinovirus infection - decrease IV methylprednisnolone 40 mg q12h -> q24h, complete 7d of ceftriaxone 11/02-11/09 and azithromycin 11/02-11/09 - changed albuterol to levalbuterol - on baseline of 3L O2 via NC - droplet precautions AF/RVR - needs better rate control; increased metoprolol tartrate from 25 to 50 mg bid; increased diltiazem PO from 180 to 240 to 360 mg daily; will give 20 mg IV diltiazem now and if fails to control rate, should be on IV infusion - not on AC due to hx anemia + thrombocytopenia acute/chronic HFpEF exacerbation - change IV to PO furosemide - TTE 11/04/23: - The left ventricular systolic function is normal. The visually estimated ejection fraction is between 60-65%. - There is moderate calcification of the aortic valve. There is mild aortic valve stenosis. - There is severe mitral annular calcification. - Mild pulmonary hypertension is present. metastatic [id number] lung cancer - s/p wedge resection of the left and right upper lobes with metastasis to brain, liver, and bones on palliative chemotherapy; last chemo 10/15/23; outpatient follow-up with Dr Samuels HTN - continue diltiazem + metoprolol as above; HCTZ held mood disorder - continue paroxetine opioid dependence - continue Suboxone HLD - continue statin hypothyroidism - continue LT4 VTE ppx - enoxaparin dispo - home with VNA possibly in next 1-2d In my clinical judgment, the patient requires continued inpatient hospitalization for the following reasons: AF/RVR Total time managing care of this patient today: 40 minutes. Quality Stroke Does the patient have a stroke diagnosis?: No VTE Prior VTE?: No VTE Risk Level:: Medical - moderate - high VTE Device Contraindication: Treatment Not Indicated VTE Drug Contraindication: N/A - Med Ordered
[2023-11-10] MEDS: dilTIAZem HCL 50 MG/10 ML VIAL 20 MG IVPUSH (09:48)
--- NOTE | 2023-11-10 11:01 | MHC.CM.PN ---
Per ROUNDS discussion, Patient is not yet medically cleared for dc (HR not controlled); home with services is the goal and CM will continue to follow.
[2023-11-10] MEDS: Enoxaparin Sodium 40 MG/0.4 ML SYRINGE SUBCUT (16:38)
[2023-11-10] MEDS: Atorvastatin Calcium 10 MG TABLET PO (20:26)
[2023-11-10] MEDS: Docusate Sodium 100 MG CAPSULE PO (20:26)
[2023-11-11] VITALS (11 sets, daily range): BP systolic 97–156; BP diastolic 75–96; PULSE 81–114; RESP 16–20; TEMP 36–36.6; O2SAT 94–100
[2023-11-11] MEDS: 0.9 % Sodium Chloride Flush 3 ML SYRINGE IVFLUSH ×4 (00:11→20:47)
[2023-11-11] MEDS: levalbuterol HCL 1.25 MG, Ipratropium Bromide 0.5 MG INHALE ×6 (00:17→19:41)
[2023-11-11] MEDS: guaiFEN/Codeine SF 200/20/10ML 10 ML LIQUID PO ×3 (00:29→20:45)
[2023-11-11] MEDS: methylPREDNISolone Sod Succ 40 MG/ML VIAL IVPUSH (05:12)
[2023-11-11] MEDS: Levothyroxine Sodium 25 MCG TABLET PO (05:12)
[2023-11-11] MEDS: Omeprazole 20 MG CAPSULE.DR PO (06:02)
[2023-11-11] MEDS: Folic Acid 1 MG TABLET PO (08:49)
[2023-11-11] MEDS: PARoxetine HCL 40 MG TABLET PO ×2 (08:49→20:44)
[2023-11-11] MEDS: Furosemide 40 MG TABLET PO (08:49)
[2023-11-11] MEDS: Metoprolol Tartrate 50 MG TABLET PO ×2 (08:49→20:44)
[2023-11-11] MEDS: dilTIAZem HCL CD 180 MG CAP.ER.24H 360 MG PO (08:50)
[2023-11-11] MEDS: Buprenorphine/Naloxone 2/0.5mg FILM 1 FILM SUBLINGUAL (08:50)
[2023-11-11] MEDS: Theophylline Anhydrous ER 400 MG TAB.ER.24H PO (08:50)
--- NOTE | 2023-11-11 13:07 | HO.PM.IMPN ---
Subjective Subjective Date of Service: 11/11/23 Interval History: Slowly improving overall. Breathing returning to baseline Review of Systems Denies chest pain Admits to shortness of breath with exertion that has improved Denies nausea vomiting diarrhea Denies fever chills Physical Exam Vital Signs: Vital Signs: Last Vital Signs Temp 97.2 F 11/11/23 11:05 Pulse 81 11/11/23 11:10 Resp 20 11/11/23 11:10 BP 128/76 11/11/23 11:05 Pulse Ox 97 11/11/23 11:05 O2 Del Method Nasal Cannula 11/11/23 11:05 O2 Flow Rate 3 11/11/23 11:05 Oxygen Flow Rate 3 11/03/23 13:06 BMI result Body Mass Index 31.7 Objective Data Active Medications Acetaminophen (Acetaminophen 325 Mg Tablet) 650 mg PO Q6H PRN PRN Reason: Pain, Mild (Pain Scale 1-3), fever or headache Last Admin: 11/10/23 05:01 Dose: 650 mg Documented By: CAMPBELL Atorvastatin Calcium (Atorvastatin Calcium 10 Mg Tablet) 10 mg PO BEDTIME [facility] Last Admin: 11/10/23 20:26 Dose: 10 mg Documented By: DARREL Buprenorphine/Naloxone (Buprenorphine/Naloxone 2/0.5mg Film) 1 film SUBLINGUAL DAILY [facility] Last Admin: 11/11/23 08:50 Dose: 1 film Documented By: JOHNATHAN Calcium Carbonate (Calcium Carbonate 750 Mg Tab.Chew) 750 mg PO Q4H PRN PRN Reason: Heartburn Levalbuterol HCl 1.25 mg/ (Ipratropium [place] 0.5 mg) 0 mg INHALE RQ4H [facility] Last Admin: 11/11/23 11:10 Dose: 5.5 dose Documented By: QUINN Diltiazem HCl (Diltiazem Hcl Cd 180 Mg Cap.Er.24h) 360 mg PO DAILY [facility]; Protocol Last Admin: 11/11/23 08:50 Dose: 360 mg Documented By: JOHNATHAN Docusate Sodium (Docusate Sodium 100 Mg Capsule) 100 mg PO BEDTIME PRN PRN Reason: stool softener Last Admin: 11/10/23 20:26 Dose: 100 mg Documented By: DARREL Enoxaparin Sodium (Enoxaparin Sodium 40 Mg/0.4 Ml Syringe) 40 mg SUBCUT Q24H [facility] Last Admin: 11/10/23 16:38 Dose: 40 mg Documented By: JOHNATHAN Folic Acid (Folic Acid 1 Mg Tablet) 1 mg PO DAILY [facility] Last Admin: 11/11/23 08:49 Dose: 1 mg Documented By: JOHNATHAN Furosemide (Furosemide 40 Mg Tablet) 40 mg PO DAILY [facility]; Protocol Last Admin: 11/11/23 08:49 Dose: 40 mg Documented By: JOHNATHAN Guaifenesin/Codeine Phosphate (Guaifen/Codeine Sf 200/20/10ml 10 Ml Liquid) 10 ml PO Q4H PRN PRN Reason: Cough Last Admin: 11/11/23 04:45 Dose: 10 ml Documented By: DARREL Levalbuterol HCl (Levalbuterol Hcl 1.25 Mg/3 Ml Vial.Neb) 1.25 mg INHALE Q2H PRN PRN Reason: shortness of breath or wheeze Levothyroxine Sodium (Levothyroxine Sodium 25 Mcg Tablet) 25 mcg PO DAILY@0600 [facility] Last Admin: 11/11/23 05:12 Dose: 25 mcg Documented By: DARREL Magnesium Hydroxide (Milk Of Magnesia 30 Ml Oral.Susp) 30 ml PO DAILY PRN PRN Reason: Constipation Melatonin (Melatonin 3 Mg Tablet) 6 mg PO BEDTIME PRN PRN Reason: Insomnia Last Admin: 11/05/23 21:39 Dose: 6 mg Documented By: JEANNINE Comments: pt request for sleep Methylprednisolone Sodium Succinate (Methylprednisolone Sod Succ 40 Mg/Ml Vial) 40 mg IVPUSH Q24H [facility] Last Admin: 11/11/23 05:12 Dose: 40 mg Documented By: DARREL Metoprolol Tartrate (Metoprolol Tartrate 50 Mg Tablet) 50 mg PO BID [facility]; Protocol Last Admin: 11/11/23 08:49 Dose: 50 mg Documented By: JOHNATHAN Non-Formulary Medication (Milnacipran [[place]ella]) 50 mg PO BID [facility] Omeprazole (Omeprazole 20 Mg Capsule.) 20 mg PO DAILY@0630 [facility] Last Admin: 11/11/23 06:02 Dose: 20 mg Documented By: DARREL Paroxetine HCl (Paroxetine Hcl 40 Mg Tablet) 40 mg PO BID [facility] Last Admin: 11/11/23 08:49 Dose: 40 mg Documented By: JOHNATHAN Polyethylene Glycol (Polyethylene Glycol 3350 17 Gm Powd.Pack) 17 gm PO DAILY [facility] Last Admin: 11/11/23 08:55 Dose: Not Given Documented By: JOHNATHAN Non-Admin Reason: pt refused Sodium Chloride (0.9 % Sodium Chloride Flush 3 Ml Syringe) 3 ml IVFLUSH QSHIFT [facility] Last Admin: 11/11/23 08:52 Dose: 3 ml Documented By: JOHNATHAN Theophylline (Theophylline Anhydrous Er 400 Mg Tab.Er.24h) 400 mg PO DAILY [facility] Last Admin: 11/11/23 08:50 Dose: 400 mg Documented By: JOHNATHAN Labs 11/04/23 06:24 11/10/23 06:13 Assessment and Plan (1) Acute on chronic hypoxic respiratory failure: Status: Acute (2) Rhinovirus: Status: Acute (3) CHF exacerbation: Status: Acute Plan 63yo F with NSCLC s/p LITA + RUL wedge resections and with 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 Admitted for acute/chronic hypoxia due to COPD + CHF exacerbations with AF/RVR 1.Acute/chronic hypoxic respiratory failure due to COPD exacerbation with pertussis and rhinovirus infection - IV methylprednisnolone 40 mg q12h -> q24h, complete 7d of ceftriaxone 11/02-11/09 and azithromycin 11/02-11/09 - changed albuterol to levalbuterol - on baseline of 3L O2 via NC - droplet precautions 2.AF/RVR -good response to therapies -rate control adequate -adjust as indicated -no anticoagulation secondary to 1 3.Acute/chronic HFpEF exacerbation - change IV to PO furosemide - TTE 11/04/23: - The left ventricular systolic function is normal. The visually estimated ejection fraction is between 60-65%. - There is moderate calcification of the aortic valve. There is mild aortic valve stenosis. - There is severe mitral annular calcification. - Mild pulmonary hypertension is present. 4.Metastatic [id number] lung cancer - s/p wedge resection of the left and right upper lobes with metastasis to brain, liver, and bones on palliative chemotherapy; last chemo 10/15/23; outpatient follow-up with Dr Arvind Pierreapakarthik Full code dispo - home with VNA possibly in next 1-2d In my clinical judgment, the patient requires continued inpatient hospitalization for the following reasons: AF/RVR Quality Stroke Does the patient have a stroke diagnosis?: No VTE Prior VTE?: No VTE Risk Level:: Medical - moderate - high VTE Device Contraindication: Treatment Not Indicated VTE Drug Contraindication: N/A - Med Ordered
[2023-11-11] MEDS: Enoxaparin Sodium 40 MG/0.4 ML SYRINGE SUBCUT (17:42)
[2023-11-11] MEDS: Atorvastatin Calcium 10 MG TABLET PO (20:44)
[2023-11-12] VITALS (11 sets, daily range): BP systolic 112–148; BP diastolic 80–100; PULSE 64–112; RESP 18–22; TEMP 36.1–36.6; O2SAT 90–100
[2023-11-12] MEDS: methylPREDNISolone Sod Succ 40 MG/ML VIAL IVPUSH (06:07)
[2023-11-12] MEDS: Levothyroxine Sodium 25 MCG TABLET PO (06:07)
[2023-11-12] MEDS: Omeprazole 20 MG CAPSULE.DR PO (06:07)
[2023-11-12] MEDS: guaiFEN/Codeine SF 200/20/10ML 10 ML LIQUID PO ×2 (06:09→20:12)
[2023-11-12] MEDS: levalbuterol HCL 1.25 MG, Ipratropium Bromide 0.5 MG INHALE ×4 (08:01→19:34)
[2023-11-12] MEDS: Buprenorphine/Naloxone 2/0.5mg FILM 1 FILM SUBLINGUAL (09:50)
[2023-11-12] MEDS: 0.9 % Sodium Chloride Flush 3 ML SYRINGE IVFLUSH ×2 (09:52→16:18)
[2023-11-12] MEDS: dilTIAZem HCL CD 180 MG CAP.ER.24H 360 MG PO (09:53)
[2023-11-12] MEDS: PARoxetine HCL 40 MG TABLET PO ×2 (09:53→20:09)
[2023-11-12] MEDS: Theophylline Anhydrous ER 400 MG TAB.ER.24H PO (09:54)
[2023-11-12] MEDS: Metoprolol Tartrate 50 MG TABLET PO ×2 (09:54→20:09)
[2023-11-12] MEDS: Folic Acid 1 MG TABLET PO (09:54)
[2023-11-12] MEDS: Furosemide 40 MG TABLET PO (09:54)
[2023-11-12] MEDS: methylPREDNISolone Sod Succ 125 MG/2 ML VIAL 60 MG IVPUSH ×2 (14:40→19:10)
--- NOTE | 2023-11-12 15:01 | P.PNIM_ITS ---
Subjective Subjective Date of Service: 11/12/23 Interval History: Still short of breath with minimal exertion Review of Systems Denies chest pain Admits to shortness of breath with exertion that has improved Denies nausea vomiting diarrhea Denies fever chills Physical Exam 2 Vital Signs: Vital Signs: Last Vital Signs Temp 96.9 F 11/12/23 10:59 Pulse 90 11/12/23 11:59 Resp 22 H 11/12/23 11:20 BP 148/90 H 11/12/23 10:59 Pulse Ox 94 11/12/23 10:59 O2 Del Method Nasal Cannula 11/12/23 10:59 O2 Flow Rate 2 11/12/23 10:59 Oxygen Flow Rate 3 11/03/23 13:06 BMI result Body Mass Index 31.7 Const: Other: Awake alert still short of breath with minimal exertion Resp: Other: Diminished throughout with scattered expiratory wheezes Cardio: Other: No S4; positive S1-S2; no S3 murmurs rubs or gallops GI: Other: Soft nontender nondistended normoactive bowel sounds Extrem: Other: No edema bilaterally Objective Data Active Medications Acetaminophen (Acetaminophen 325 Mg Tablet) 650 mg PO Q6H PRN PRN Reason: Pain, Mild (Pain Scale 1-3), fever or headache Last Admin: 11/10/23 05:01 Dose: 650 mg Documented By: CAMPBELL Atorvastatin Calcium (Atorvastatin Calcium 10 Mg Tablet) 10 mg PO BEDTIME [facility] Last Admin: 11/11/23 20:44 Dose: 10 mg Documented By: BRITTANI Buprenorphine/Naloxone (Buprenorphine/Naloxone 2/0.5mg Film) 1 film SUBLINGUAL DAILY [facility] Last Admin: 11/12/23 09:50 Dose: 1 film Documented By: TIM Calcium Carbonate (Calcium Carbonate 750 Mg Tab.Chew) 750 mg PO Q4H PRN PRN Reason: Heartburn Levalbuterol HCl 1.25 mg/ (Ipratropium [place] 0.5 mg) 0 mg INHALE RQ4H [facility] Last Admin: 11/12/23 11:17 Dose: 0.5 dose Documented By: ANGEL Diltiazem HCl (Diltiazem Hcl Cd 180 Mg Cap.Er.24h) 360 mg PO DAILY [facility]; Protocol Last Admin: 11/12/23 09:53 Dose: 360 mg Documented By: TIM Docusate Sodium (Docusate Sodium 100 Mg Capsule) 100 mg PO BEDTIME PRN PRN Reason: stool softener Last Admin: 11/10/23 20:26 Dose: 100 mg Documented By: DARREL Enoxaparin Sodium (Enoxaparin Sodium 40 Mg/0.4 Ml Syringe) 40 mg SUBCUT Q24H [facility] Last Admin: 11/11/23 17:42 Dose: 40 mg Documented By: JOHNATHAN Folic Acid (Folic Acid 1 Mg Tablet) 1 mg PO DAILY [facility] Last Admin: 11/12/23 09:54 Dose: 1 mg Documented By: TIM Furosemide (Furosemide 40 Mg Tablet) 40 mg PO DAILY [facility]; Protocol Last Admin: 11/12/23 09:54 Dose: 40 mg Documented By: TIM Guaifenesin/Codeine Phosphate (Guaifen/Codeine Sf 200/20/10ml 10 Ml Liquid) 10 ml PO Q4H PRN PRN Reason: Cough Last Admin: 11/12/23 06:09 Dose: 10 ml Documented By: BRITTANI Levalbuterol HCl (Levalbuterol Hcl 1.25 Mg/3 Ml Vial.Neb) 1.25 mg INHALE Q2H PRN PRN Reason: shortness of breath or wheeze Levothyroxine Sodium (Levothyroxine Sodium 25 Mcg Tablet) 25 mcg PO DAILY@0600 [facility] Last Admin: 11/12/23 06:07 Dose: 25 mcg Documented By: BRITTANI Magnesium Hydroxide (Milk Of Magnesia 30 Ml Oral.Susp) 30 ml PO DAILY PRN PRN Reason: Constipation Melatonin (Melatonin 3 Mg Tablet) 6 mg PO BEDTIME PRN PRN Reason: Insomnia Last Admin: 11/05/23 21:39 Dose: 6 mg Documented By: JEANNINE Comments: pt request for sleep Methylprednisolone Sodium Succinate (Methylprednisolone Sod Succ 125 Mg/2 Ml Vial) 60 mg IVPUSH Q6H [facility] Metoprolol Tartrate (Metoprolol Tartrate 50 Mg Tablet) 50 mg PO BID [facility]; Protocol Last Admin: 11/12/23 09:54 Dose: 50 mg Documented By: TIM Non-Formulary Medication (Milnacipran [[place]]) 50 mg PO BID [facility] Omeprazole (Omeprazole 20 Mg Capsule.Dr) 20 mg PO DAILY@0630 [facility] Last Admin: 11/12/23 06:07 Dose: 20 mg Documented By: BRITTANI Paroxetine HCl (Paroxetine Hcl 40 Mg Tablet) 40 mg PO BID [facility] Last Admin: 11/12/23 09:53 Dose: 40 mg Documented By: TIM Polyethylene Glycol (Polyethylene Glycol 3350 17 Gm Powd.Pack) 17 gm PO DAILY [facility] Last Admin: 11/12/23 10:26 Dose: Not Given Documented By: TIM Non-Admin Reason: Patient Refused Sodium Chloride (0.9 % Sodium Chloride Flush 3 Ml Syringe) 3 ml IVFLUSH QSHIFT [facility] Last Admin: 11/12/23 09:52 Dose: 3 ml Documented By: TIM Theophylline (Theophylline Anhydrous Er 400 Mg Tab.Er.24h) 400 mg PO DAILY [facility] Last Admin: 11/12/23 09:54 Dose: 400 mg Documented By: TIM Labs 11/04/23 06:24 11/10/23 06:13 Assessment and Plan (1) Acute on chronic hypoxic respiratory failure: Status: Acute (2) Pertussis: Status: Acute Plan 63yo F with NSCLC s/p LITA + RUL wedge resections and with 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 Admitted for acute/chronic hypoxia due to COPD + CHF exacerbations with AF/RVR 1.Acute/chronic hypoxic respiratory failure due to COPD exacerbation with pertussis and rhinovirus infection - IV methylprednisnolone increased to 60 q.6 hours.. Follow clinical response - changed albuterol to levalbuterol - on baseline of 3L O2 via NC - droplet precautions 2.AF/RVR -good response to therapies -rate control adequate -adjust as indicated -no anticoagulation secondary to 1 3.Acute/chronic HFpEF exacerbation - change IV to PO furosemide - TTE 11/04/23: - The left ventricular systolic function is normal. The visually estimated ejection fraction is between 60-65%. - There is moderate calcification of the aortic valve. There is mild aortic valve stenosis. - There is severe mitral annular calcification. - Mild pulmonary hypertension is present. 4.Metastatic [id number]-btvt lung cancer - s/p wedge resection of the left and right upper lobes with metastasis to brain, liver, and bones on palliative chemotherapy; last chemo 10/15/23; outpatient follow-up with Dr Arvind Krishnamurthyoxaparin Full code dispo - home with VNA possibly in next 1-2d In my clinical judgment, the patient requires continued inpatient hospitalization for the following reasons: AF/RVR Quality Stroke Does the patient have a stroke diagnosis?: No VTE Prior VTE?: No VTE Risk Level:: Medical - moderate - high VTE Device Contraindication: Treatment Not Indicated VTE Drug Contraindication: N/A - Med Ordered
[2023-11-12] MEDS: Atorvastatin Calcium 10 MG TABLET PO (20:09)
[2023-11-13] VITALS (13 sets, daily range): BP systolic 117–134; BP diastolic 77–97; PULSE 73–115; RESP 16–20; TEMP 36.1–36.7; O2SAT 94–100
[2023-11-13] MEDS: methylPREDNISolone Sod Succ 125 MG/2 ML VIAL 60 MG IVPUSH ×5 (01:21→23:44)
[2023-11-13] MEDS: 0.9 % Sodium Chloride Flush 3 ML SYRINGE IVFLUSH ×2 (01:22→23:45)
[2023-11-13] MEDS: Omeprazole 20 MG CAPSULE.DR PO (06:05)
[2023-11-13] MEDS: Levothyroxine Sodium 25 MCG TABLET PO (06:05)
[2023-11-13] MEDS: levalbuterol HCL 1.25 MG, Ipratropium Bromide 0.5 MG INHALE ×5 (07:21→23:47)
[2023-11-13] MEDS: Buprenorphine/Naloxone 2/0.5mg FILM 1 FILM SUBLINGUAL (09:15)
[2023-11-13] MEDS: Metoprolol Tartrate 50 MG TABLET PO ×2 (09:45→20:48)
[2023-11-13] MEDS: dilTIAZem HCL CD 180 MG CAP.ER.24H 360 MG PO (09:45)
[2023-11-13] MEDS: Theophylline Anhydrous ER 400 MG TAB.ER.24H PO (09:46)
[2023-11-13] MEDS: Folic Acid 1 MG TABLET PO (09:46)
[2023-11-13] MEDS: PARoxetine HCL 40 MG TABLET PO ×2 (09:46→20:48)
[2023-11-13] MEDS: Furosemide 40 MG TABLET PO (09:46)
[2023-11-13] MEDS: guaiFEN/Codeine SF 200/20/10ML 10 ML LIQUID PO ×2 (09:50→20:48)
--- NOTE | 2023-11-13 12:08 | P.PNIM_ITS ---
Subjective Subjective Date of Service: 11/13/23 Interval History: Feels better today but mildly short of breath with exertion Review of Systems Denies chest pain Admits to shortness of breath with exertion that has improved Denies nausea vomiting diarrhea Denies fever chills Physical Exam 2 Vital Signs: Vital Signs: Last Vital Signs Temp 98.0 F 11/13/23 11:55 Pulse 115 H 11/13/23 11:55 Resp 20 11/13/23 11:55 BP 134/97 H 11/13/23 11:55 Pulse Ox 94 11/13/23 11:55 O2 Del Method Nasal Cannula 11/13/23 11:55 O2 Flow Rate 3 11/13/23 11:55 Oxygen Flow Rate 3 11/03/23 13:06 BMI result Body Mass Index 31.7 Const: Other: Awake alert still short of breath with minimal exertion Resp: Other: Diminished throughout with scattered expiratory wheezes Cardio: Other: No S4; positive S1-S2; no S3 murmurs rubs or gallops GI: Other: Soft nontender nondistended normoactive bowel sounds Extrem: Other: No edema bilaterally Objective Data Active Medications Acetaminophen (Acetaminophen 325 Mg Tablet) 650 mg PO Q6H PRN PRN Reason: Pain, Mild (Pain Scale 1-3), fever or headache Last Admin: 11/10/23 05:01 Dose: 650 mg Documented By: CAMPBELL Atorvastatin Calcium (Atorvastatin Calcium 10 Mg Tablet) 10 mg PO BEDTIME [facility] Last Admin: 11/12/23 20:09 Dose: 10 mg Documented By: LEONIDES Buprenorphine/Naloxone (Buprenorphine/Naloxone 2/0.5mg Film) 1 film SUBLINGUAL DAILY [facility] Last Admin: 11/13/23 09:15 Dose: 1 film Documented By: SANDOR Calcium Carbonate (Calcium Carbonate 750 Mg Tab.Chew) 750 mg PO Q4H PRN PRN Reason: Heartburn Levalbuterol HCl 1.25 mg/ (Ipratropium [place] 0.5 mg) 0 mg INHALE RQ4H [facility] Last Admin: 11/13/23 11:26 Dose: 1 dose Documented By: ЕЛЕНА Diltiazem HCl (Diltiazem Hcl Cd 180 Mg Cap.Er.24h) 360 mg PO DAILY [facility]; Protocol Last Admin: 11/13/23 09:45 Dose: 360 mg Documented By: SANDOR Docusate Sodium (Docusate Sodium 100 Mg Capsule) 100 mg PO BEDTIME PRN PRN Reason: stool softener Last Admin: 11/10/23 20:26 Dose: 100 mg Documented By: DARREL Enoxaparin Sodium (Enoxaparin Sodium 40 Mg/0.4 Ml Syringe) 40 mg SUBCUT Q24H [facility] Last Admin: 11/12/23 16:21 Dose: Not Given Documented By: TIM Non-Admin Reason: Patient Refused Folic Acid (Folic Acid 1 Mg Tablet) 1 mg PO DAILY [facility] Last Admin: 11/13/23 09:46 Dose: 1 mg Documented By: SANDOR Furosemide (Furosemide 40 Mg Tablet) 40 mg PO DAILY [facility]; Protocol Last Admin: 11/13/23 09:46 Dose: 40 mg Documented By: SANDOR Guaifenesin/Codeine Phosphate (Guaifen/Codeine Sf 200/20/10ml 10 Ml Liquid) 10 ml PO Q4H PRN PRN Reason: Cough Last Admin: 11/13/23 09:50 Dose: 10 ml Documented By: SANDOR Levalbuterol HCl (Levalbuterol Hcl 1.25 Mg/3 Ml Vial.Neb) 1.25 mg INHALE Q2H PRN PRN Reason: shortness of breath or wheeze Levothyroxine Sodium (Levothyroxine Sodium 25 Mcg Tablet) 25 mcg PO DAILY@0600 [facility] Last Admin: 11/13/23 06:05 Dose: 25 mcg Documented By: ALPESH Magnesium Hydroxide (Milk Of Magnesia 30 Ml Oral.Susp) 30 ml PO DAILY PRN PRN Reason: Constipation Melatonin (Melatonin 3 Mg Tablet) 6 mg PO BEDTIME PRN PRN Reason: Insomnia Last Admin: 11/05/23 21:39 Dose: 6 mg Documented By: JEANNINE Comments: pt request for sleep Methylprednisolone Sodium Succinate (Methylprednisolone Sod Succ 125 Mg/2 Ml Vial) 60 mg IVPUSH Q6H [facility] Last Admin: 11/13/23 06:05 Dose: 60 mg Documented By: ALPESH Metoprolol Tartrate (Metoprolol Tartrate 50 Mg Tablet) 50 mg PO BID [facility]; Protocol Last Admin: 11/13/23 09:45 Dose: 50 mg Documented By: SANDOR Non-Formulary Medication (Milnacipran [Savella]) 50 mg PO BID [facility] Omeprazole (Omeprazole 20 Mg Capsule.) 20 mg PO DAILY@0630 [facility] Last Admin: 11/13/23 06:05 Dose: 20 mg Documented By: ALPESH Paroxetine HCl (Paroxetine Hcl 40 Mg Tablet) 40 mg PO BID [facility] Last Admin: 11/13/23 09:46 Dose: 40 mg Documented By: SANDOR Polyethylene Glycol (Polyethylene Glycol 3350 17 Gm Powd.Pack) 17 gm PO DAILY [facility] Last Admin: 11/13/23 10:23 Dose: Not Given Documented By: SANDOR Non-Admin Reason: p having loose stool Sodium Chloride (0.9 % Sodium Chloride Flush 3 Ml Syringe) 3 ml IVFLUSH QSHIFT [facility] Last Admin: 11/13/23 10:23 Dose: Not Given Documented By: SANDOR Non-Admin Reason: Previously Administered Theophylline (Theophylline Anhydrous Er 400 Mg Tab.Er.24h) 400 mg PO DAILY [facility] Last Admin: 11/13/23 09:46 Dose: 400 mg Documented By: SANDOR Labs 11/04/23 06:24 11/10/23 06:13 Assessment and Plan (1) Acute on chronic hypoxic respiratory failure: Status: Acute (2) Pertussis: Status: Acute Plan 63yo F with NSCLC s/p LITA + RUL wedge resections and with 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 Admitted for acute/chronic hypoxia due to COPD + CHF exacerbations with AF/RVR 1.Acute/chronic hypoxic respiratory failure due to COPD exacerbation with pertussis and rhinovirus infection - IV methylprednisnolone increased to 60 q.6 hours.. Improving hopeful DC in a.m. - on baseline of 3L O2 via NC - droplet precautions 2.AF/RVR -good response to therapies -rate control adequate -adjust as indicated -no anticoagulation secondary to 1 3.Acute/chronic HFpEF exacerbation - change IV to PO furosemide - TTE 11/04/23: - The left ventricular systolic function is normal. The visually estimated ejection fraction is between 60-65%. - There is moderate calcification of the aortic valve. There is mild aortic valve stenosis. - There is severe mitral annular calcification. - Mild pulmonary hypertension is present. 4.Metastatic [id number]-izkj lung cancer - s/p wedge resection of the left and right upper lobes with metastasis to brain, liver, and bones on palliative chemotherapy; last chemo 10/15/23; outpatient follow-up with Dr Arvind Pierreapakarthik Full code In my clinical judgment, the patient requires continued inpatient hospitalization for the following reasons: AF/RVR Quality Stroke Does the patient have a stroke diagnosis?: No VTE Prior VTE?: No VTE Risk Level:: Medical - moderate - high VTE Device Contraindication: Treatment Not Indicated VTE Drug Contraindication: N/A - Med Ordered
[2023-11-13] MEDS: Atorvastatin Calcium 10 MG TABLET PO (20:48)
[2023-11-14 04:00] VITALS: BP 145/84; PULSE 82; RESP 20; TEMP 36.2; O2SAT 94
[2023-11-14] MEDS: levalbuterol HCL 1.25 MG, Ipratropium Bromide 0.5 MG INHALE ×3 (04:42→11:27)
[2023-11-14 04:45] VITALS: PULSE 93; RESP 20; O2SAT 97
[2023-11-14] MEDS: methylPREDNISolone Sod Succ 125 MG/2 ML VIAL 60 MG IVPUSH ×2 (05:22→11:29)
[2023-11-14] MEDS: Omeprazole 20 MG CAPSULE.DR PO (05:22)
[2023-11-14] MEDS: Levothyroxine Sodium 25 MCG TABLET PO (05:22)
[2023-11-14 07:19] VITALS: BP 122/84; PULSE 60; RESP 20; TEMP 36.1; O2SAT 98
[2023-11-14 07:28] VITALS: PULSE 83; RESP 18; O2SAT 97
[2023-11-14] MEDS: dilTIAZem HCL CD 180 MG CAP.ER.24H 360 MG PO (08:32)
[2023-11-14] MEDS: Furosemide 40 MG TABLET PO (08:33)
[2023-11-14] MEDS: Theophylline Anhydrous ER 400 MG TAB.ER.24H PO (08:33)
[2023-11-14] MEDS: Folic Acid 1 MG TABLET PO (08:33)
[2023-11-14] MEDS: Buprenorphine/Naloxone 2/0.5mg FILM 1 FILM SUBLINGUAL (08:33)
[2023-11-14] MEDS: Metoprolol Tartrate 50 MG TABLET PO (08:33)
[2023-11-14] MEDS: PARoxetine HCL 40 MG TABLET PO (08:44)
[2023-11-14] MEDS: 0.9 % Sodium Chloride Flush 3 ML SYRINGE IVFLUSH ×2 (08:44→08:48)
[2023-11-14 11:28] VITALS: PULSE 95; RESP 18; O2SAT 97
--- NOTE | 2023-11-14 12:38 | P.DS_ITS ---
DS: Providers Provider Date of Service: 11/14/23 Date of admission: 11/03/23 16:38 Date of discharge: 11/14/23 Primary care physician: Daphne Rodriguez MD Consults: 11/06/23 05:59 Consult to Pulmonology Routine Consulting Provider: [facility] [place] Pulmonology Services Reason for consultation: Persistent dyspnea and cough Has provider been notified: No DS: Diagnosis Discharge Diagnosis (1) Acute on chronic hypoxic respiratory failure: Status: Acute (2) Pertussis: Status: Acute DS: Summary Hospital Course Hospital Course: 63-year-old female with a past medical history of non-small cell lung cancer status post left upper lobe and right upper lobe wedge resection, with metastases to the brain, liver, and bones, is currently undergoing palliative chemotherapy under the care of Dr. Samuels last chemo on 10/15/23. She also has a history of breast cancer, depression, hepatitis C, hypertension, and COPD requiring home oxygen therapy at 3 liters and actively smoking. Additionally, she has paroxysmal atrial fibrillation and is not on anticoagulation due to a history of low platelets, as well as a history of anemia and opioid dependence. SHe was recently admitted for COPD exacebation adndischarged on po steroids on 10/22/23. Reports feeling better but then last night developed significant johnston with wheezing. Reports desaturating to the mid 80s and requiring increased use of supplemental O2 at 4 L. Has also noted some increasing bilateral lower extremity edema. Denies orthopnea or PND. Does have productive cough which is different from baseline but also reports she just quit smoking 2 weeks ago. Sputum is clear/white in color. No fevers, chills, recent illness, sore throat, congestion, abdominal pain, nausea, vomiting, diarrhea, lightheadedness, palpitations, chest pain. On arrival, was very tachycardic 0160, tachypneic to 31. She did desaturate to 89% with ambulation on 4 L supplemental O2. She is afebrile. There is no leukocytosis. Renal function is baseline, electrolyte levels are normal. BNP 613. Initial troponin 64.3, repeat pending but is noted to have a chronic troponin leak. CTA chest radiology report pending but appears negative for PE with left-sided pleural effusion that appears stable compared to prior imaging studies. There does not appear to be any focal consolidation. EKG shows atrial fibrillation with RVR, rate 145, no ST or depressions. In the ED, has received guaifenesin, 20 mg IV diltiazem x1, 10 mg IV diltiazem x1, and then started on 180 mg diltiazem p.o.. Also given 125 mg IV methylprednisolone and DuoNeb. Hospital Course Admitted to telemetry where monitor failed to demonstrate any acute dysrhythmias. She was maintained on pulse dose steroids and supplemental O2. S he did test positive for pulses and rhino virus. Over the course of the next several days she improved to the point where she was at her home O2 baseline. At this point in time she is medically acceptable for discharge and can follow up with PCP Time Attestation Discharge Coordination Time (in mins): 35 Quality: Safe Use of Opioids Does Pt have an Active Cancer Diagnosis on the Problem List?: No Quality: Stroke Does the patient have a stroke diagnosis?: No Physical Exam Vital Signs: Vital Signs: Last Vital Signs Temp 96.9 F 11/14/23 07:19 Pulse 95 11/14/23 11:28 Resp 18 11/14/23 11:28 BP 122/84 11/14/23 07:19 Pulse Ox 98 11/14/23 07:19 O2 Del Method Nasal Cannula 11/14/23 07:19 O2 Flow Rate 3 11/14/23 07:19 Oxygen Flow Rate 3 11/03/23 13:06 BMI result Body Mass Index 31.7 Const: Other: Awake alert still short of breath with minimal exertion Resp: Other: Diminished throughout with scattered expiratory wheezes Cardio: Other: No S4; positive S1-S2; no S3 murmurs rubs or gallops GI: Other: Soft nontender nondistended normoactive bowel sounds Extrem: Other: No edema bilaterally DS: Data Data Completed and Pending Completed studies during hospitalization [Text1]: Procedures Drainage of Left Pleural Cavity, Percutaneous Approach (07/09/23) Transfusion of Nonautologous Platelets into Peripheral Vein, Percutaneous Approach (01/24/22) Transfusion of Nonautologous Red Blood Cells into Peripheral Vein, Percutaneous Approach (02/18/22) Discharge Plan Discharge Anticipated Discharge Date/Time: 11/14/23 12:34 Patient Disposition: Home, Self-Care Discharge Diagnosis: Acute on chronic respiratory failure Referrals: Daphne Rodriguez MD [Primary Care Provider] - 1 Week Discharge Medications: New prednisone 20 mg tablet See Rx Instructions .Route .COMPLEX Qty: 18 0RF Rx Instructions: 20 mg orally; 3 tabs daily for 3 days, 2 tabs daily for 3 days, 1 tab daily for 3 days Continued folic acid 1 mg tablet 1 mg PO DAILY Qty: 90 3RF potassium chloride [K-Tab] 20 mEq Tablet Extended Release 20 meq PO DAILY Qty: 30 0RF paroxetine HCl 20 mg tablet 40 mg PO BID omeprazole 20 mg capsule,delayed release(DR/EC) 20 mg PO DAILY@0630 Savella 50 mg tablet 50 mg PO BID simvastatin 20 mg Tablet 20 mg PO BEDTIME docusate sodium 100 mg capsule 100 mg PO BEDTIME PRN (Reason: stool softener) buprenorphine-naloxone [Suboxone] 2-0.5 mg film 0.5 - 1 film sublingual DAILY Anoro Ellipta 62.5-25 mcg/actuation blister with device 1 inh INHALATION DAILY metoprolol ta-hydrochlorothiaz 50-25 mg tablet 1 tab PO DAILY Qty: 90 0RF diltiazem HCl 180 mg capsule,ext.rel 24h degradable 180 mg PO DAILY Qty: 90 0RF ipratropium-albuterol 0.5 mg-3 mg(2.5 mg base)/3 mL solution for nebulization 3 ml inhalation Q6H PRN (Reason: wheezing) levothyroxine [Synthroid] 25 mcg tablet 25 mcg PO DAILY@0600 acetaminophen 500 mg Tablet 500 mg PO DAILY PRN (Reason: Pain) ipratropium bromide 42 mcg (0.06 %) spray,non-aerosol 2 spray intranasal QID PRN (Reason: allergy symptoms) Rx Instructions: administer into each nostril albuterol sulfate [Ventolin HFA] 90 mcg/actuation HFA aerosol inhaler 2 puff inhalation Q6H PRN (Reason: sob) theophylline 400 mg tablet extended release 24 hr 400 mg PO DAILY 30 Days Qty: 30 6RF Discharge Orders: Discharge Order (Routine); Ordered 11/14/23 Ordered By: Jim Parish Diet: Advance to usual diet Activity on Discharge: As tolerated Stand Alone Forms: Patient Portal Discharge page Print Language: Bengali Care Plan Goals: Resume all pre-hospital medications including oxygen as prescribed Health Concerns: Prednisone taper as outlined. Plan of Treatment: Follow-up with your PCP next available Assessment: See discharge summary
[2023-11-14 13:10] VITALS: PULSE 89; PULSE 96; O2SAT 88; O2SAT 94
--- NOTE | 2023-11-14 13:21 | MHC.CM.PN ---
PT WILL DC HOME TODAY WITH NO NEW SERVICES VIA PRIVATE TRANSPORT
== END 2023-11-14 13:15 | disposition home or self-care (01) | DRG 137 ==
LOC: HO.ED 15:58 → HO.EDOVER 16:52 → HO.IMC 19:33
PROVIDERS: Family Medicine; Internal Medicine; Physician Assistant Medical; Admitting Provider Physician Assistant; Emergency Provider Emergency Medicine; PCP Pediatrics; Visit Provider Hospitalist
DX: A37.91 Whooping cough, unspecified species with pneumonia (principal); J96.21 Acute and chronic respiratory failure with hypoxia; I50.33 Acute on chronic diastolic (congestive) heart failure; C79.51 Secondary malignant neoplasm of bone; I27.20 Pulmonary hypertension, unspecified; C34.11 Malignant neoplasm of upper lobe, right bronchus or lung; I48.0 Paroxysmal atrial fibrillation; I11.0 Hypertensive heart disease with heart failure; C34.12 Malignant neoplasm of upper lobe, left bronchus or lung; J44.0 Chronic obstructive pulmonary disease with (acute) lower respiratory infection; B97.89 Other viral agents as the cause of diseases classified elsewhere; F39 Unspecified mood [affective] disorder; E78.5 Hyperlipidemia, unspecified; I08.0 Rheumatic disorders of both mitral and aortic valves; C79.31 Secondary malignant neoplasm of brain; C78.7 Secondary malignant neoplasm of liver and intrahepatic bile duct; E03.9 Hypothyroidism, unspecified; F11.20 Opioid dependence, uncomplicated; Z90.2 Acquired absence of lung [part of]; Z99.81 Dependence on supplemental oxygen; Z87.891 Personal history of nicotine dependence; Z79.890 Hormone replacement therapy; Z79.899 Other long term (current) drug therapy
CPT/HCPCS: 36415; 71045; 71275; 80048; 80198; 82803; 83735; 83880; 84145; 84484; 85025; 85379; 85610; 85730; 87633; 92950; 93005; 93306; 94640; 97161; 97530; 99285; J0456; J0696; J1650; J1940; J2270; J2919; Q9957; Q9967

== ENCOUNTER → 2023-11-03 13:06 | Outpatient (BNV) | payer MEDICAID, SELFPAY | PROVIDERS: Admitting Provider Physician Assistant; Emergency Provider Emergency Medicine; PCP Pediatrics; Visit Provider Internal Medicine | DX: R00.0 Tachycardia, unspecified (principal); I48.91 Unspecified atrial fibrillation; R94.31 Abnormal electrocardiogram [ECG] [EKG] | CPT/HCPCS: 93010 ==

== ENCOUNTER 2023-11-03 16:38 | Outpatient (BNV) | payer MEDICAID, SELFPAY | END 2023-11-05 07:04 | PROVIDERS: Admitting Provider Physician Assistant; Emergency Provider Emergency Medicine; PCP Pediatrics; Visit Provider Internal Medicine | DX: I48.91 Unspecified atrial fibrillation (principal); R94.31 Abnormal electrocardiogram [ECG] [EKG] | CPT/HCPCS: 93010 ==

== ENCOUNTER 2023-11-03 16:38 | Outpatient (BNV) | payer MEDICAID, SELFPAY | END 2023-11-04 07:00 | PROVIDERS: Admitting Provider Physician Assistant; Emergency Provider Emergency Medicine; PCP Pediatrics; Visit Provider Internal Medicine | DX: I35.0 Nonrheumatic aortic (valve) stenosis (principal); I35.8 Other nonrheumatic aortic valve disorders; I34.81 Nonrheumatic mitral (valve) annulus calcification; I36.1 Nonrheumatic tricuspid (valve) insufficiency | CPT/HCPCS: 93306 ==

== ENCOUNTER 2023-11-03 16:38 | Outpatient (BNV) | payer MEDICAID, SELFPAY | END 2023-11-10 | PROVIDERS: Admitting Provider Physician Assistant; Emergency Provider Emergency Medicine; PCP Pediatrics; Visit Provider Internal Medicine Cardiovascular Disease | DX: I48.91 Unspecified atrial fibrillation (principal); R94.31 Abnormal electrocardiogram [ECG] [EKG] | CPT/HCPCS: 93010 ==

== ENCOUNTER → 2023-11-03 16:38 | Outpatient (BNV) | payer MEDICAID, SELFPAY | PROVIDERS: Admitting Provider Physician Assistant; Emergency Provider Emergency Medicine; PCP Pediatrics; Visit Provider Internal Medicine Pulmonary Disease | DX: J44.1 Chronic obstructive pulmonary disease with (acute) exacerbation (principal); J96.21 Acute and chronic respiratory failure with hypoxia; B97.89 Other viral agents as the cause of diseases classified elsewhere; A37.90 Whooping cough, unspecified species without pneumonia | CPT/HCPCS: 99222 ==

== ENCOUNTER → 2023-11-03 16:38 | Outpatient (BNV) | payer MEDICAID, SELFPAY | PROVIDERS: Admitting Provider Physician Assistant; Emergency Provider Emergency Medicine; PCP Pediatrics; Visit Provider Physician Assistant | DX: J96.21 Acute and chronic respiratory failure with hypoxia (principal); A37.90 Whooping cough, unspecified species without pneumonia | CPT/HCPCS: 99223; 99232; 99233; 99239; 99499 ==

== ENCOUNTER 2023-12-01 06:28 | Inpatient (IN) | payer MEDICAID, SELFPAY ==
[2023-12-01] VITALS (14 sets, daily range): BP systolic 110–170; BP diastolic 69–120; PULSE 89–150; RESP 15–26; TEMP 36.4–37; O2SAT 93–100; BMI 32.3
--- NOTE | ~2023-12-01 | XR_ITS ---
EXAMINATION: XR CHEST CLINICAL INFORMATION: Shortness of breath COMPARISON: None available. TECHNIQUE: Frontal view of the chest was obtained. FINDINGS: HEART & VASCULARITY: There are normal cardiac size and pulmonary vascularity. LUNGS: Extensive airspace disease is seen opacifying the left lower lung with left pleural effusion effacing the left hemidiaphragm, left cardiac border and left lateral costophrenic angle, tracking along the retroperitoneal border of lower left lung. Hazy alveolar density is present in the lateral right lung base, with effacement of right lateral costophrenic angle. There is persistent right lung volume loss with superior tethering of right hemidiaphragm. No pneumothorax is seen. BONES: Bony skeleton is intact. Lower cervical spine ACDF, fixation with metallic plate and cortical screws is seen. XR/XR chest 1V IMPRESSION: 1. Unchanged Extensive left lower lung airspace disease and interval increase in small left pleural effusion. 2. Unchanged Right lung volume loss with superior tethering of right hemidiaphragm. 3. Unchanged Hazy alveolar density in the right lateral lung base with fibrotic obliteration of right lateral costophrenic angle. 4. Unchanged status post lower cervical spine ACDF. Electronically signed by: Beryl Treadwell MD 12/01/2023 09:08 AM EDT
--- NOTE | 2023-12-01 06:34 | ECG_ITS ---
Test Reason : SOB Blood Pressure : / mmHG Vent. Rate : 143 BPM Atrial Rate : 000 BPM P-R Int : 000 ms QRS Dur : 068 ms QT Int : 300 ms P-R-T Axes : 000 049 023 degrees QTc Int : 463 ms Atrial fibrillation with rapid ventricular response Low voltage QRS Abnormal ECG When compared with ECG of 10-NOV-2023 18:11, No significant change was found Referred By: Leandra Busch Electronically Signed By:CARLITA ETIENNE
[2023-12-01 07:04] LABS: MANUAL DIFF FLAG NO
[2023-12-01 07:09] LABS: Basophils Percent Auto 0.6 % (0-2); Eosinophils Absolute Auto 0.1 X10*3/uL (0.0-0.4); Eosinophils Percent Auto 1.8 % (0-4); Hematocrit 30.1 % (37.0-47.0); Hemoglobin 9.6 g/dl (12.0-16.0); Imm Gran Abs Auto 0.02 X10*3/uL (0.00-0.03); Imm Gran Pct Auto 0.6 % (0.0-0.4); Lymphocytes Absolute Auto 0.7 X10*3/uL (1.2-4.9); Lymphocytes Percent Auto 21.4 % (20-40); Mean Corpuscular HGB Conc 31.9 g/dl (31.0-35.0); Mean Corpuscular Hemoglobin 29.3 pg (27.0-33.0); Mean Corpuscular Volume 91.8 fL (80.0-98.0); Mean Platelet Volume 9.4 fL (9.4-12.3); Monocytes Absolute Auto 0.5 X10*3/uL (0.1-1.2); Monocytes Percent Auto 16.1 % (2-11); Neutrophils Percent Auto 59.5 % (45-73); Platelet Count 150 X10*3/uL (160-400); Red Blood Count 3.28 X10*6/uL (4.20-5.50); Red Cell Distribution Width 16.2 % (11.0-16.0); White Blood Count 3.4 X10*3/uL (4.8-10.8)
[2023-12-01 07:12] LABS: VBG Base Excess 6.4 mmol/L; VBG HCO3 30 mmol/L (22-26); VBG pCO2 43 mmHg; VBG pH 7.45 (7.32-7.43); VBG pO2 58 mmHg
[2023-12-01 07:16] LABS: Venous Blood Gas Refer to POC result
[2023-12-01] MEDS: methylPREDNISolone Sod Succ 125 MG/2 ML VIAL 60 MG IVPUSH (07:18)
[2023-12-01] MEDS: Magnesium Sulfate/H2O 2 GM/50 ML PIGGYBACK IV ×2 (07:19→16:18)
[2023-12-01 07:32] LABS: B Type Natriuretic Peptide 142 pg/mL (<100)
--- NOTE | 2023-12-01 07:35 | PC.NURSE ---
Pt presents to ED via EMS from home, reports SOB starting in the middle of the night worsening. Pt reports she did two neb treatments at home with minimal relief, pt on 2L O2 via NC baseline. Has hx of COPD and lung cancer. Reports cough with no sputum production and headaches. Alert and oriented, breathing increased, increased WOB, + cough. Skin pale. Afib with RVR on monitor 120-160.
--- NOTE | 2023-12-01 07:38 | ED_ITS ---
HPI - SOB/Dyspnea General Chief Complaint: Dyspnea Stated Complaint: difficulty breathing Time Seen by Provider: 12/01/23 06:33 Source: patient, EMS and old records reviewed Mode of arrival: EMS Limitations: no limitations History of Present Illness ED Provider: Judy Busch PA-C HPI Narrative: 63 yo female with history of O2 dependent COPD, HFpEF, stage IV lung NSCLC s/p LITA and and RUL wedge resection with mets to the brain, bone and liver (on palliative chemo w/ Dr. Samuels), hx afib not on anticoagulation due to reported history of thrombocytopenia, hx anemia, recent admit to [facility] 11/02-11/13 for COPD and rhinovirus who presents to the ER from home via EMS for evaluation of SOB and worsening productive cough. She was using her nebulizer at home every 3 hours even through the night with no improvement in her SOB and difficulty breathing. She increased her home O2 as well with no improvement. She denies fever, chills, abdominal pain, nausea, vomiting or chest pain. EMS administered a duoneb. Patient arrived to the ER with HR 140s in rapid afib, saturating well on her home O2 2L, but dyspneic with conversation. MD elicited complaint: shortness of breath and cough Pertinent past history: COPD and other (lung cancer) Onset (ago): day(s) Timing: progressively worsening Severity: similar to previous episodes Exacerbating factors: coughing and inspiration Relieving factors: nothing Known history of: COPD Associated symptoms: cough, wheezing and sputum production Treatment prior to arrival: oxygen and bronchodilator Related Data Home oxygen amount: 2 liters Home Medications ?Medication ?Instructions ?Recorded ?Confirmed milnacipran 50 mg tablet (Savella) 50 mg PO BID 01/18/22 11/03/23 omeprazole 20 mg capsule,delayed 20 mg PO DAILY@0630 01/18/22 11/03/23 release paroxetine HCl 20 mg tablet 40 mg PO BID 01/18/22 11/03/23 simvastatin 20 mg tablet 20 mg PO BEDTIME 02/17/22 11/03/23 albuterol sulfate 90 mcg/actuation 2 puff inhalation Q6H PRN sob 06/22/23 11/03/23 aerosol inhaler (Ventolin HFA) buprenorphine 2 mg-naloxone 0.5 mg 0.5 - 1 film sublingual DAILY 07/09/23 11/03/23 sublingual film (Suboxone) docusate sodium 100 mg capsule 100 mg PO BEDTIME PRN stool 07/09/23 11/03/23 softener umeclidinium 62.5 mcg-vilanterol 1 inh inhalation DAILY 07/09/23 11/03/23 25 mcg/actuation powdr for inhalation (Anoro Ellipta) ipratropium 0.5 mg-albuterol 3 mg 3 ml inhalation Q6H PRN wheezing 10/18/23 11/03/23 (2.5 mg base)/3 mL nebulization soln levothyroxine 25 mcg tablet 25 mcg PO DAILY@0600 10/18/23 11/03/23 (Synthroid) acetaminophen 500 mg tablet 500 mg PO DAILY PRN Pain 11/03/23 11/03/23 ipratropium bromide 42 mcg (0.06 2 spray intranasal QID PRN allergy 11/03/23 11/03/23 %) nasal spray symptoms Previous Rx's ?Medication ?Instructions ?Recorded theophylline 400 mg 400 mg PO DAILY 30 days #30 tabs 06/22/23 tablet,extended release 24 hr diltiazem HCl 180 mg 180 mg PO DAILY #90 caps 07/10/23 capsule,extended release 24 hr, controlled metoprolol tartrate 50 1 tab PO DAILY #90 tabs 07/10/23 mg-hydrochlorothiazide 25 mg tablet folic acid 1 mg tablet 1 mg PO DAILY #90 tabs 10/04/23 potassium chloride 20 mEq 20 meq PO DAILY #30 tabs 11/02/23 tablet,extended release (K-Tab) prednisone 20 mg tablet See Rx Instructions .Route 11/14/23 .COMPLEX #18 tabs Allergies Allergy/AdvReac Type Severity Reaction Status Date / Time lisinopril [LISINOPRIL] Allergy Severe SWELLING- Verified 12/01/23 06:45 ANGIOEDEMA codeine [CODEINE] Allergy Intermediate VOMITING/HIVES, Verified 12/01/23 06:45 vomiting, hives Review of Systems 2 Review of Systems: Yes all other systems are reviewed and are negative PMFSH Past Medical History Medical History Pancytopenia New onset a-fib Cancer of upper lobe of left lung (~2020) Bilateral lung cancer Obesity History of hepatitis C Smoker Tubular adenoma of colon Pulmonary nodules History of breast cancer (~2006) Internal and external bleeding hemorrhoids Cancer of upper lobe of right lung (~2019) GERD (gastroesophageal reflux disease) Depression COPD (chronic obstructive pulmonary disease) HTN (hypertension) Surgical History History of lung surgery (~2020) History of anterior colporrhaphy (~2016) History of tubal ligation History of lumpectomy of right breast (~2006) History of colonoscopy (~2014) History of hemorrhoidectomy (~2019) History of back surgery (~2011) History of lobectomy of lung (~2019) Family History Family History Mother History of lung cancer Brother History of lung cancer Maternal Grandmother Breast cancer in female Maternal Aunt Breast cancer in female Daughter Thyroid cancer Social History Social History Household Members: Significant Other Household Members Other:: 2 Housing: House Are you a primary childcare center director to a significant other at home: No Do you presently have visiting nurse or other home services: No Unable to assess alcohol history related to: Unable to respond Alcohol intake: never Comment: rings appropriately Patient Tobacco Use Status: Former Tobacco user Tobacco use type: Cigarette Cigarette Packs Per Day: 1 Cigarettes Per Day: 10 Years Smoked: 50 Smoked in Last 30 Days: No Second Hand Smoke Exposure: Yes Substance Use Type: Marijuana Advance Directives: Yes Advance Directives on File: Yes Advance Directives Date on File: 02/02/22 Do you have a plan to hurt others: No Plan Patient : No service: No Current occupational status: disabled Current occupational exposures/hazards: No Physical Exam 2 Vital Signs: Vital Signs: Last Vital Signs Temp 98.6 F 12/01/23 06:39 Pulse 132 H 12/01/23 10:48 Resp 20 12/01/23 09:22 BP 110/80 12/01/23 10:48 Pulse Ox 94 12/01/23 09:22 O2 Del Method Nasal Cannula 12/01/23 09:22 O2 Flow Rate 2 12/01/23 09:22 Oxygen Flow Rate 2 12/01/23 06:39 BMI result Body Mass Index 32.3 Appearance: Alert. Oriented X3. Mild/moderte resp acute distress. Head: normocephalic, atraumatic. Eyes: Pupils equal, round and reactive to light. ENT: Pharynx normal. No tonsillar swelling or exudate. Neck: Normal inspection. Neck supple. CVS: Tachycardic, irregularly irregular, no apprecaited murmur Pulses normal. Respiratory: Mild/mod respiratory distress with dyspnea speaking. Breath sounds diminished throughout, no wheezes or rhonchi, +accessory muscle use Abdomen: Obese Soft and nontender. +BS x4 Skin: Skin warm and dry. Normal skin color. Normal skin turgor. No rashes. Extremities: No lower extremity edema. No joint swelling. Neuro/psych: Oriented X 3. No motor deficit. No sensory deficit. CN II-XII intact. Normal speech and cognition. Course Reevaluation(s) Reevaluation #1: patient in Afib HR 140s, BP 120-150. she is on both lopressor and cardizem at home. hold off on further nebs/albuterol for now. she is not actively wheezing and resp rate has improved with rest. IV lopressor 5mg x1 ordered for now. will reassess Time: 07:49 Reevaluation #2: Heart rates initially improved with Lopressor to the 1 teens. She was much more comfortable. Re-evaluation now shows some heart rates creeping up to the 130s. She is on extended-release Cardizem at home. Will give 1 dose of oral immediate release, reassess need for additional IV AV lily blocking agents. Blood pressure remained stable. Chest x-ray is unchanged from prior. No new focal infiltrate. Her respiratory swab is negative. Will treat her with IV doxycycline for COPD exacerbation. Anticipate admission Time: 09:20 Medications Administered Discontinued Medications Generic Name Dose Route Start Last Admin Trade Name Jasielq PRN Reason Stop Dose Admin Acetaminophen 975 mg 12/01/23 07:37 12/01/23 07:41 Acetaminophen 325 Mg Tablet PO 12/01/23 07:38 975 mg ONCE ONE Administration Albuterol Sulfate 2.5 mg 12/01/23 06:42 12/01/23 06:45 Albuterol Sulfate (0.083%) 2.5 Mg/3 Ml Vial.Neb INHALE 12/01/23 06:43 Not Given ONCE ONE Buprenorphine/Naloxone 0.5 film 12/01/23 10:16 12/01/23 10:30 Buprenorphine/Naloxone 4/1 Mg Film SUBLINGUAL 12/01/23 10:17 0.5 film ONCE ONE Administration Diltiazem HCl 60 mg 12/01/23 09:19 12/01/23 10:48 Diltiazem Hcl 60 Mg Tablet PO 12/01/23 09:20 60 mg ONCE ONE Administration Protocol Magnesium Sulfate 2 gm in 50 mls @ 150 mls/hr 12/01/23 06:33 12/01/23 07:51 Magnesium Sulfate/H2o IV 12/01/23 06:52 Infused ONCE ONE Infusion Doxycycline Hyclate 100 mg/ 250 mls @ 166.67 mls/hr 12/01/23 09:18 12/01/23 10:14 Sodium Chloride IV 12/01/23 10:47 166.67 mls/hr ONCE ONE Administration Methylprednisolone Sodium Succinate 60 mg 12/01/23 06:33 12/01/23 07:18 Methylprednisolone Sod Succ 125 Mg/2 Ml Vial IVPUSH 12/01/23 06:34 60 mg ONCE ONE Administration Metoprolol Tartrate 5 mg 12/01/23 07:37 12/01/23 07:43 Metoprolol Tartrate 5 Mg/5 Ml Vial IVPUSH 12/01/23 07:38 5 mg ONCE ONE Administration Protocol Medical Decision Making Medical Decision Making MDM Narrative: 63-year-old female with a history of COPD on home O2, metastatic lung cancer, left-sided pleural effusion, anemia, AFib not on anticoagulation who presents to the ER for evaluation of worsening shortness of breath, wheezing and cough that started yesterday and is not getting any better with her home oxygen or nebulizers. On arrival to the ER patient was completing a nebulizer treatment. She had diminished lung sounds but no significant wheezing. She was tachycardic to the 140s in AFib. She was short of breath. Patient was given IV Solu-Medrol, IV magnesium, IV Lopressor for rate control. She is able to lay flat on her side with no significant respiratory distress. Her BNP is down to 142 from 600 during last admission. CHF less likely. Lasix deferred for now. Chest x-ray without any new infiltrate, effusion looks the same. No evidence of Hcap or significant pneumonia. Will treat for COPD exacerbation with IV doxycycline. Heart rates are vacillating between 110-130. She is not sustaining higher than 120. She is on extended release Cardizem at home, and immediate release dose of Cardizem ordered, pending released from pharmacy. Patient is comfortable. Will admit to the hospital for further management. Differential Diagnosis Differential Diagnoses: The differential diagnosis associated with the presentation includes Acute COPD exacerbation, CHF exacerbation, PE, pneumonia, Hcap, pleural effusion worsening, bronchitis, viral illness Admission/Observation Consideration of admission/observation: Escalation of care including admission/observation considered Consult Healthcare Provider Management of the patient was discussed with: Hospitalist Lab Data MDM Lab Attestation statement: I reviewed the patient's lab results. Pancytopenia, mild hyperglycemia 12/01/23 06:56 12/01/23 06:56 Labs: Lab Results 12/01/23 12/01/23 12/01/23 Range/Units 06:56 07:06 07:27 WBC 3.4 L (4.8-10.8) X10*3/uL RBC 3.28 L (4.20-5.50) X10*6/uL Hgb 9.6 L (12.0-16.0) g/dl Hct 30.1 L (37.0-47.0) % MCV 91.8 (80.0-98.0) fL MCH 29.3 (27.0-33.0) pg MCHC 31.9 (31.0-35.0) g/dl RDW 16.2 H (11.0-16.0) % Plt Count 150 L D (160-400) X10*3/uL MPV 9.4 (9.4-12.3) fL Immature Gran % (Auto) 0.6 H (0.0-0.4) % Neut % (Auto) 59.5 (45-73) % Lymph % (Auto) 21.4 (20-40) % [place] % (Auto) 16.1 H (2-11) % Eos % (Auto) 1.8 (0-4) % Baso % (Auto) 0.6 (0-2) % Lymph # (Auto) 0.7 L (1.2-4.9) X10*3/uL [place] # (Auto) 0.5 (0.1-1.2) X10*3/uL Eos # (Auto) 0.1 (0.0-0.4) X10*3/uL Baso # (Auto) 0.0 (0.0-0.2) X10*3/uL Abs Immat Gran (auto) 0.02 (0.00-0.03) X10*3/uL Absolute Neuts (auto) 2.0 (2.0-8.3) x10*3/uL Absolute Nucleated RBC 0.000 (0.0-0.012) X10*3/uL Nucleated RBC % (auto) 0.0 (0.0-0.2) /100WBC VBG pH 7.45 H (7.32-7.43) VBG pCO2 43 mmHg VBG pO2 58 mmHg VBG HCO3 30 H (22-26) mmol/L VBG O2 Saturation 93.0 % VBG Base Excess 6.4 mmol/L Sodium 139 (135-145) mmol/L Potassium 3.5 (3.3-5.1) mmol/L Chloride 100 (96-108) mmol/L Carbon Dioxide 28 (22-29) mmol/L Anion Gap 15 (12-20) BUN 18 H (9-16) mg/dL Creatinine 1.35 (0.5-1.4) mg/dL Estim Creat Clear Calc 50.1 Estimated GFR 40 Random Glucose 144 H (60-115) mg/dL Lactic Acid (0.5-2.0) mmol/L Calcium 8.9 D (8.4-10.2) mg/dL Magnesium 1.1 L* (1.6-2.6) mg/dL Total Bilirubin 0.6 (0.0-1.0) mg/dL Direct Bilirubin 0.2 (0.0-0.5) mg/dL AST 14 (5-31) U/L ALT 16 (0-31) U/L Alkaline Phosphatase 56 (39-117) U/L Troponin I High Sens 49.3 H (<3.5-17.0) ng/L B-Natriuretic Peptide 142 H (<100) pg/mL Total Protein 6.4 L (6.5-8.0) g/dL Albumin 3.5 (3.5-5.0) g/dL Procalcitonin 0.09 ng/mL Urine Color Urine Appearance Urine pH (5.0-9.0) Ur Specific Cranks (1.005-1.025) Urine Protein (Neg-Trace) mg/dL Urine Glucose (UA) (Negative) mg/dL Urine Ketones (Negative) mg/dL Urine Blood (Negative) Urine Nitrite (Negative) Ur Leukocyte Esterase (Negative) Urine RBC (0-2) /HPF Urine WBC (0-5) /HPF Ur Squamous Epith Cells (0-2) /HPF Urine Bacteria (None Seen) Hyaline Casts (0-2) /LPF Influenza Type A (PCR) NEGATIVE (Negative) Influenza Type B (PCR) NEGATIVE (Negative) RSV RNA Qual (PCR) NEGATIVE (Negative) SARS-CoV-2 RNA (RT-PCR) NEGATIVE (Negative) 12/01/23 12/01/23 Range/Units 10:08 11:15 WBC (4.8-10.8) X10*3/uL RBC (4.20-5.50) X10*6/uL Hgb (12.0-16.0) g/dl Hct (37.0-47.0) % MCV (80.0-98.0) fL MCH (27.0-33.0) pg MCHC (31.0-35.0) g/dl RDW (11.0-16.0) % Plt Count (160-400) X10*3/uL MPV (9.4-12.3) fL Immature Gran % (Auto) (0.0-0.4) % Neut % (Auto) (45-73) % Lymph % (Auto) (20-40) % [place] % (Auto) (2-11) % Eos % (Auto) (0-4) % Baso % (Auto) (0-2) % Lymph # (Auto) (1.2-4.9) X10*3/uL [place] # (Auto) (0.1-1.2) X10*3/uL Eos # (Auto) (0.0-0.4) X10*3/uL Baso # (Auto) (0.0-0.2) X10*3/uL Abs Immat Gran (auto) (0.00-0.03) X10*3/uL Absolute Neuts (auto) (2.0-8.3) x10*3/uL Absolute Nucleated RBC (0.0-0.012) X10*3/uL Nucleated RBC % (auto) (0.0-0.2) /100WBC VBG pH (7.32-7.43) VBG pCO2 mmHg VBG pO2 mmHg VBG HCO3 (22-26) mmol/L VBG O2 Saturation % VBG Base Excess mmol/L Sodium (135-145) mmol/L Potassium (3.3-5.1) mmol/L Chloride (96-108) mmol/L Carbon Dioxide (22-29) mmol/L Anion Gap (12-20) BUN (9-16) mg/dL Creatinine (0.5-1.4) mg/dL Estim Creat Clear Calc Estimated GFR Random Glucose (60-115) mg/dL Lactic Acid 1.4 (0.5-2.0) mmol/L Calcium (8.4-10.2) mg/dL Magnesium (1.6-2.6) mg/dL Total Bilirubin (0.0-1.0) mg/dL Direct Bilirubin (0.0-0.5) mg/dL AST (5-31) U/L ALT (0-31) U/L Alkaline Phosphatase (39-117) U/L Troponin I High Sens 39.7 H (<3.5-17.0) ng/L B-Natriuretic Peptide (<100) pg/mL Total Protein (6.5-8.0) g/dL Albumin (3.5-5.0) g/dL Procalcitonin ng/mL Urine Color Yellow Urine Appearance Clear Urine pH 6.0 (5.0-9.0) Ur Specific Cranks 1.015 (1.005-1.025) Urine Protein 30 (1+) H (Neg-Trace) mg/dL Urine Glucose (UA) Negative (Negative) mg/dL Urine Ketones Negative (Negative) mg/dL Urine Blood Negative (Negative) Urine Nitrite Negative (Negative) Ur Leukocyte Esterase Trace H (Negative) Urine RBC 0-2 (0-2) /HPF Urine WBC 0-5 (0-5) /HPF Ur Squamous Epith Cells 6-10 (0-2) /HPF Urine Bacteria Trace (None Seen) Hyaline Casts 0-2 (0-2) /LPF Influenza Type A (PCR) (Negative) Influenza Type B (PCR) (Negative) RSV RNA Qual (PCR) (Negative) SARS-CoV-2 RNA (RT-PCR) (Negative) Independent Interpretation I performed an independent interpretation of an: EKG and Plain X-Ray Interpretation: EKG with atrial fibrillation with rapid ventricular response, ventricular rate 143 beats per minute, no significant change from EKG done last month, low- voltage QRS is noted Chest x-ray with chronic findings, left-sided effusion appears grossly unchanged, no new focal infiltrate appreciated when compared to prior Radiology Impression Discussion of test interpretation with radiology: I have reviewed the radiologist's reading. Radiologist Impression: XR/XR chest 1V IMPRESSION: 1. Unchanged Extensive left lower lung airspace disease and interval increase in small left pleural effusion. 2. Unchanged Right lung volume loss with superior tethering of right hemidiaphragm. 3. Unchanged Hazy alveolar density in the right lateral lung base with fibrotic obliteration of right lateral costophrenic angle. 4. Unchanged status post lower cervical spine ACDF. Independent Historian Clinical information obtained from an independent historian. History obtained from or confirmed by: EMS External Record Review External record reviewed: Inpatient record, Office record, Outpatient record, Prior outpatient labs and Prior outpatient radiology Tests considered The following testing was considered but not selected: CTA considered given her cancer history however she recently had one that negative for pulmonary embolism. Could consider lower extremity Dopplers to rule out DVT Prescription Management I considered prescription management with: Pain Medication and Antibiotic Chronic Conditions Patient?s care impacted by: Other (Lung cancer, COPD) Critical Care Time Critical Care Time Critical Care Time: Yes Total Critical Care Time: 48 Attestation: I have personally provided critical care time exclusive of time spent on separately billable procedures. Time includes review of lab data, radiology results, discussion with consultants, and monitoring for potential decompensation. Intervention performed as documented. Discharge Plan Discharge Clinical Impression: COPD with acute exacerbation, Atrial fibrillation with RVR Patient Disposition: Admitted As Inpatient Print Language: Surinamese
[2023-12-01 07:39] LABS: Troponin-I High Sensitivity 49.3 ng/L (<3.5-17.0)
[2023-12-01 07:40] LABS: Alanine Aminotransferase 16 U/L (0-31); Albumin Level 3.5 g/dL (3.5-5.0); Alkaline Phosphatase 56 U/L (39-117); Anion Gap 15 (12-20); Aspartate Amino Transferase 14 U/L (5-31); Bilirubin Direct 0.2 mg/dL (0.0-0.5); Bilirubin Total 0.6 mg/dL (0.0-1.0); Blood Urea Nitrogen 18 mg/dL (9-16); Calcium 8.9 mg/dL (8.4-10.2); Carbon Dioxide 28 mmol/L (22-29); Chloride 100 mmol/L (96-108); Creatinine Clr Calc Pharmacy 50.1; Estimated Glomerular Filt Rate 40; Glucose Random 144 mg/dL (60-115); Magnesium 1.1 mg/dL (1.6-2.6); Potassium 3.5 mmol/L (3.3-5.1); Sodium 139 mmol/L (135-145); Total Protein 6.4 g/dL (6.5-8.0)
[2023-12-01] MEDS: Acetaminophen 325 MG TABLET 975 MG PO (07:41)
[2023-12-01] MEDS: Metoprolol Tartrate 5 MG/5 ML VIAL IVPUSH (07:43)
[2023-12-01 07:50] LABS: Procalcitonin 0.09 ng/mL
[2023-12-01 08:12] LABS: Influenza A PCR NEGATIVE (Negative); Influenza B PCR NEGATIVE (Negative); Resp Syncy Virus RNA Qual PCR NEGATIVE (Negative); SARS COV2 PCR INHOUSE NEGATIVE (Negative)
--- NOTE | 2023-12-01 10:01 | PC.NURSE ---
Pt appears more comfortable, breathing less labored, pt able to rest. Pharmacy called for missing med
[2023-12-01] MEDS: Doxycycline Hyclate 100 MG in 0.9 % Sodium Chloride 250 ML 166.67 MG IV (10:14)
[2023-12-01] MEDS: Buprenorphine/Naloxone 4/1 mg FILM 0.5 FILM SUBLINGUAL (10:30)
[2023-12-01 10:32] LABS: Lactic Acid 1.4 mmol/L (0.5-2.0)
[2023-12-01] MEDS: dilTIAZem HCL 60 MG TABLET PO (10:48)
[2023-12-01 11:24] LABS: Appearance Urine Clear; Color Urine Yellow; Glucose Urine UA Negative (Negative); Leukocyte Esterase Urine Trace (Negative); Nitrite Urine Negative (Negative); Specific Gravity - Urine 1.015 (1.005-1.025); UMIC TRIGGER UACC YES; Urine Blood Negative (Negative); Urine Ketones Negative (Negative); Urine Protein 30 (1+) mg/dL (Neg-Trace)
[2023-12-01 11:27] LABS: Bacteria Urine Trace (None Seen); Hyaline Casts Urine 0-2 /LPF (0-2); RBC Urine 0-2 /HPF (0-2); WBC Urine 0-5 /HPF (0-5)
--- NOTE | 2023-12-01 11:39 | P.HPHOSP_ITS ---
History of Present Illness Date of Service: 12/01/23 Attending physician on admission: Mukesh Kwan Chief Complaint: SOB Pt is a -year-old female with a PMH significant for non-small cell lung cancer s/p left upper lobe and right upper lobe wedge resection, with mets to brain, liver, and bones, is currently undergoing palliative chemotherapy under the care of Dr. Arvind pereira chemo on 11/26/23. She also has a hx of breast cancer, depression, hepatitis C, HTN, COPD on 3L home O2 and actively smoking, paroxysmal atrial fibrillation not on anticoagulation due to a history of low platelets and anemia, and opioid dependence. Pt?presents to the ED today from home for evaluation of worsening SOB since yesterday. ?Was recently admitted to the hospital from 11/02-11/13 and treated for COPD exacerbation in the setting of pertussis and rhinovirus. Patient reports she was doing well after discharge until Wednesday when she began having increased shortness of breath, cough, and occasional palpitations. Morrison generally weak. Yesterday symptoms were worse, and patient increased her home O2 to 4 L to no effect. This morning continued to feel SOB and palpitations were so severe that she felt ?like my heart would jump right out of my chest?. Denies fever, chills. No nausea, vomiting, abdominal pain. In the ED pt was tachycardic up to 150, tachypneic up to 26, and hypertensive up to 150 106. Labs were significant for leukopenia of hold, H&H 9.6/30.1, platelets 150, magnesium 1.1, initial troponin 49.3 with repeat flat at 39.7, and BNP 142. CXR unchanged from previous, showing extensive bilateral lung disease. EKG demonstrated AFib with RVR of 143. Pt was treated with Solu-Medrol 60 mg IV, Mag sulfate 2 g, acetaminophen, doxycycline, Suboxone, metoprolol 5 mg IV, and diltiazem 60 mg p.o.. Pt will be admitted to the hospital for treatment and further evaluation of AFib with RVR. Review of Systems 2 Review of Systems: SOB, cough Palpitations Generalized weakness, NEELY No lightheadedness or dizziness Denies fever, chills No chest pain/pressure Denies nausea, vomiting, abdominal pain PMFSH Medical History Pancytopenia New onset a-fib Cancer of upper lobe of left lung (~2020) Bilateral lung cancer Obesity History of hepatitis C Smoker Tubular adenoma of colon Pulmonary nodules History of breast cancer (~2006) Internal and external bleeding hemorrhoids Cancer of upper lobe of right lung (~2019) GERD (gastroesophageal reflux disease) Depression COPD (chronic obstructive pulmonary disease) HTN (hypertension) Family History Mother History of lung cancer Brother History of lung cancer Maternal Grandmother Breast cancer in female Maternal Aunt Breast cancer in female Daughter Thyroid cancer Surgical History History of lung surgery (~2020) History of anterior colporrhaphy (~2016) History of tubal ligation History of lumpectomy of right breast (~2006) History of colonoscopy (~2014) History of hemorrhoidectomy (~2019) History of back surgery (~2011) History of lobectomy of lung (~2019) Social History Household Members: Significant Other Household Members Other:: 2 Housing: House Are you a primary healthcare economics consultant to a significant other at home: No Do you presently have visiting nurse or other home services: No Unable to assess alcohol history related to: Unable to respond Alcohol intake: never Comment: rings appropriately Patient Tobacco Use Status: Former Tobacco user Tobacco use type: Cigarette Cigarette Packs Per Day: 1 Cigarettes Per Day: 10 Years Smoked: 50 Smoked in Last 30 Days: No Second Hand Smoke Exposure: Yes Substance Use Type: Marijuana Advance Directives: Yes Advance Directives on File: Yes Advance Directives Date on File: 02/02/22 Do you have a plan to hurt others: No Plan Patient : No service: No Current occupational status: disabled Current occupational exposures/hazards: No Meds Allergies Allergy/AdvReac Type Severity Reaction Status Date / Time lisinopril [LISINOPRIL] Allergy Severe SWELLING- Verified 12/01/23 06:45 ANGIOEDEMA codeine [CODEINE] Allergy Intermediate VOMITING/HIVES, Verified 12/01/23 06:45 vomiting, hives Home Medications ?Medication ?Instructions ?Recorded ?Confirmed ?Last Taken ?Type milnacipran 50 mg tablet (Savella) 50 mg PO BID 01/18/22 12/01/23 11/30/23 History omeprazole 20 mg capsule,delayed 20 mg PO DAILY@0630 01/18/22 12/01/23 11/30/23 History release paroxetine HCl 20 mg tablet 40 mg PO BID 01/18/22 12/01/23 11/30/23 History simvastatin 20 mg tablet 20 mg PO BEDTIME 02/17/22 12/01/23 11/30/23 History albuterol sulfate 90 mcg/actuation 2 puff inhalation Q6H PRN sob 06/22/23 12/01/23 07/09/23 History aerosol inhaler (Ventolin HFA) buprenorphine 2 mg-naloxone 0.5 mg 0.5 - 1 film sublingual DAILY 07/09/23 12/01/23 11/30/23 History sublingual film (Suboxone) docusate sodium 100 mg capsule 100 mg PO BEDTIME PRN stool 07/09/23 12/01/23 11/02/23 History softener umeclidinium 62.5 mcg-vilanterol 1 inh inhalation DAILY 07/09/23 12/01/23 11/30/23 History 25 mcg/actuation powdr for inhalation (Anoro Ellipta) ipratropium 0.5 mg-albuterol 3 mg 3 ml inhalation Q6H PRN wheezing 10/18/23 12/01/23 12/01/23 History (2.5 mg base)/3 mL nebulization soln levothyroxine 25 mcg tablet 25 mcg PO DAILY@0600 10/18/23 12/01/23 11/30/23 History (Synthroid) acetaminophen 500 mg tablet 500 mg PO DAILY PRN Pain 11/03/23 12/01/23 Unknown History Physical Exam 2 Vital Signs and Narrative: Vital Signs: Last Vital Signs Temp 98.6 F 12/01/23 06:39 Pulse 132 H 12/01/23 10:48 Resp 20 12/01/23 09:22 BP 110/80 12/01/23 10:48 Pulse Ox 94 12/01/23 09:22 O2 Del Method Nasal Cannula 12/01/23 09:22 O2 Flow Rate 2 12/01/23 09:22 Oxygen Flow Rate 2 12/01/23 06:39 BMI result Body Mass Index 32.3 Constitutional: Alert, in no acute distress. Mental Status: Oriented to person, place and time. Eyes: Pupils are equal, round, and reactive to light. Ear, Nose, and Throat: Oropharynx clear, mucous membranes moist. Ears and nose without deformities. Trachea midline. Respiratory: Clear to auscultation bilaterally though diminished. No wheezing, rales, or rhonchi. Cardiovascular: Irregularly irregular rhythm tachycardic. Gastrointestinal: Abdomen soft, non-tender, non-distended. Normal bowel sounds. Neurologic: Cranial nerves II-XII are grossly intact bilaterally. No focal neurological deficits. Moves all extremities spontaneously. Skin: Warm, dry. Extremities: No edema. Psychiatric: Normal mood and affect. Results Labs 12/01/23 06:56 12/01/23 06:56 Labs: Laboratory Results - last 24 hr 12/01/23 12/01/23 12/01/23 06:56 07:06 07:27 MCV 91.8 MCH 29.3 MCHC 31.9 RDW 16.2 H Plt Count 150 L D MPV 9.4 Immature Gran % (Auto) 0.6 H Neut % (Auto) 59.5 Lymph % (Auto) 21.4 [place] % (Auto) 16.1 H Eos % (Auto) 1.8 Baso % (Auto) 0.6 Lymph # (Auto) 0.7 L [place] # (Auto) 0.5 Eos # (Auto) 0.1 Baso # (Auto) 0.0 Abs Immat Gran (auto) 0.02 Absolute Neuts (auto) 2.0 Absolute Nucleated RBC 0.000 Nucleated RBC % (auto) 0.0 VBG pH 7.45 H VBG pCO2 43 VBG pO2 58 VBG HCO3 30 H VBG O2 Saturation 93.0 VBG Base Excess 6.4 Anion Gap 15 Estim Creat Clear Calc 50.1 Estimated GFR 40 Random Glucose 144 H Lactic Acid Calcium 8.9 D Magnesium 1.1 L* Total Bilirubin 0.6 Direct Bilirubin 0.2 AST 14 ALT 16 Alkaline Phosphatase 56 Troponin I High Sens 49.3 H B-Natriuretic Peptide 142 H Total Protein 6.4 L Albumin 3.5 Procalcitonin 0.09 Urine Color Urine Appearance Urine pH Ur Specific [place] Urine Protein Urine Glucose (UA) Urine Ketones Urine Blood Urine Nitrite Ur Leukocyte Esterase Urine RBC Urine WBC Ur Squamous Epith Cells Urine Bacteria Hyaline Casts Influenza Type A (PCR) NEGATIVE Influenza Type B (PCR) NEGATIVE RSV RNA Qual (PCR) NEGATIVE SARS-CoV-2 RNA (RT-PCR) NEGATIVE 12/01/23 12/01/23 10:08 11:15 MCV MCH MCHC RDW Plt Count MPV Immature Gran % (Auto) Neut % (Auto) Lymph % (Auto) [place] % (Auto) Eos % (Auto) Baso % (Auto) Lymph # (Auto) [place] # (Auto) Eos # (Auto) Baso # (Auto) Abs Immat Gran (auto) Absolute Neuts (auto) Absolute Nucleated RBC Nucleated RBC % (auto) VBG pH VBG pCO2 VBG pO2 VBG HCO3 VBG O2 Saturation VBG Base Excess Anion Gap Estim Creat Clear Calc Estimated GFR Random Glucose Lactic Acid 1.4 Calcium Magnesium Total Bilirubin Direct Bilirubin AST ALT Alkaline Phosphatase Troponin I High Sens B-Natriuretic Peptide Total Protein Albumin Procalcitonin Urine Color Yellow Urine Appearance Clear Urine pH 6.0 Ur Specific [place] 1.015 Urine Protein 30 (1+) H Urine Glucose (UA) Negative Urine Ketones Negative Urine Blood Negative Urine Nitrite Negative Ur Leukocyte Esterase Trace H Urine RBC 0-2 Urine WBC 0-5 Ur Squamous Epith Cells 6-10 Urine Bacteria Trace Hyaline Casts 0-2 Influenza Type A (PCR) Influenza Type B (PCR) RSV RNA Qual (PCR) SARS-CoV-2 RNA (RT-PCR) Imaging Radiologist's Impressions: Impressions Chest X-Ray 12/01/23 06:34 IMPRESSION: 1. Unchanged Extensive left lower lung airspace disease and interval increase in small left pleural effusion. 2. Unchanged Right lung volume loss with superior tethering of right hemidiaphragm. 3. Unchanged Hazy alveolar density in the right lateral lung base with fibrotic obliteration of right lateral costophrenic angle. 4. Unchanged status post lower cervical spine ACDF. Electronically signed by: Beryl Treadwell MD 12/01/2023 09:08 AM EDT Assessment and Plan (1) Atrial fibrillation with RVR: Status: Acute Plan Pt is a -year-old female with a PMH significant for non-small cell lung cancer s/p left upper lobe and right upper lobe wedge resection, with mets to brain, liver, and bones, is currently undergoing palliative chemotherapy under the care of Dr. Samuels last chemo on 11/26/23. She also has a hx of breast cancer, depression, hepatitis C, HTN, COPD on 3L home O2 and actively smoking, paroxysmal atrial fibrillation not on anticoagulation due to a history of low platelets and anemia, and opioid dependence. Pt?presents to the ED today from home for evaluation of worsening SOB since yesterday. AFib with RVR Patient with palpitations, SOB, cough, generalized weakness x3 days RA as high as 145 in the ED Was given metoprolol 5 mg IV and diltiazem 60 mg p.o. in the ED, currently heart rate still in the 130s Will start on diltiazem drip Hold home diltiazem Continue home metoprolol Not on anticoagulation due to history of thrombocytopenia and anemia No significant thromobocytopenia since 2021, can reconsider restarting Eliquis outpatient Monitor on telemetry Hypomagnesemia Magnesium 1.1 at time of presentation Given Mag 2 g IV in the ED Will give an additional Mag 2 g IV Follow magnesium COPD Does not appear to be in acute exacerbation Respiratory symptoms due to AFib with RVR Lungs CTA No indication to continue empiric antibiotics, no sepsis Hold albuterol due to tachycardia Ipratropium prn Chronically elevated troponins No chest pain, EKG without any acute ischemic changes Initial tropes 49.3 with repeat flat at 39.7 Monitor on telemetry Metastatic yok-yyeow-sfeu lung cancer S/P wedge resection of the left and right upper lobes with metastasis to brain, liver, and bones on palliative chemotherapy, last chemo 11/25 Outpatient follow-up with Dr. Samuels Hypertension Continue home meds Mood disorder Continue home medications Opioid dependence Continue Suboxone HLD Continue statin Full Code Attending:?Dr. Kwan DVT Prophylaxis: Lovenox Pt will require a hospitalization of at least two nights for treatment of symptomatic?AFib with RVR requiring IV diltiazem drip and close of cardiac function. Quality Stroke Does the patient have a stroke diagnosis?: No VTE Prior VTE?: No VTE Risk Level:: Medical - moderate - high VTE Device Contraindication: Treatment Not Indicated VTE Drug Contraindication: N/A - Med Ordered
[2023-12-01 11:45] LABS: Troponin-I High Sensitivity 39.7 ng/L (<3.5-17.0)
--- NOTE | 2023-12-01 12:02 | PHA.MEDREC ---
Addendum entered by Jodie Mejia corinne 12/01/23 12:49: reviewed Original Note: Pharmacy Consult ? Medication Reconciliation Pharmacy has completed the medication reconciliation. Spoke to patient to confirm med list . Patient stated she is no longer on Ipratropium bromide 2 sprays in nostril qid, Prednisone taper dose. Patient says Buprenorphine-Naloxone 2/0.5 mg 0.5 to 1 film daily. She takes 0.5 film most of the time, however she will take 1 film if she feels like she needs it.
[2023-12-01] MEDS: Enoxaparin Sodium 40 MG/0.4 ML SYRINGE SUBCUT (14:30)
[2023-12-01] MEDS: dilTIAZem HCL 125 MG in 0.9 % Sodium Chloride 100 ML 10 MG IVCONT (14:30)
[2023-12-01] MEDS: Folic Acid 1 MG TABLET PO (16:17)
[2023-12-01] MEDS: Omeprazole 20 MG CAPSULE.DR PO (16:17)
[2023-12-01] MEDS: Potassium Chloride ER 20 MEQ TAB.ER.PRT PO (16:18)
[2023-12-01] MEDS: Nicotine 21 MG PATCH.TD24 TRANSDERMA (16:53)
[2023-12-01] MEDS: Theophylline Anhydrous ER 400 MG TAB.ER.24H PO (16:53)
--- NOTE | 2023-12-01 20:10 | PC.NURSE ---
HR 89, Dr. Barrientos made aware. Dilt Drip decreased to 10mg/hr.
[2023-12-01] MEDS: Atorvastatin Calcium 10 MG TABLET PO (20:44)
[2023-12-01] MEDS: Docusate Sodium 100 MG CAPSULE PO (20:44)
[2023-12-01] MEDS: PARoxetine HCL 40 MG TABLET PO (20:44)
[2023-12-02] VITALS (13 sets, daily range): BP systolic 120–153; BP diastolic 77–109; PULSE 62–136; RESP 18–24; TEMP 36.1–36.2; O2SAT 91–99
[2023-12-02] MEDS: Benzonatate 100 MG CAPSULE PO ×2 (01:25→17:14)
[2023-12-02] MEDS: dilTIAZem HCL 125 MG in 0.9 % Sodium Chloride 100 ML 10 MG IVCONT (02:04)
[2023-12-02] MEDS: Omeprazole 20 MG CAPSULE.DR PO (06:13)
[2023-12-02] MEDS: Levothyroxine Sodium 25 MCG TABLET PO (06:13)
--- NOTE | 2023-12-02 08:36 | MHC.CM.PN ---
CM met with Patient at bedside. Patient lives in [address], with her Significant Other/Richard,who she states should not be living with her. Patient has home O2 through [facility], Suboxone from [facility] in [place] (she picks up her prescription Q2 weeks),and Palliative Chemo under Dr. Samuels. Patient is undecided if she would be interested in VNA;home/resume said services is the tentative plan and CM has initiated and will follow for dc planning. PCP is Dr. Daphne Rodriguez and Daughter/HCP/Makayla will transport to home.
[2023-12-02] MEDS: Folic Acid 1 MG TABLET PO (08:47)
[2023-12-02] MEDS: Theophylline Anhydrous ER 400 MG TAB.ER.24H PO (08:47)
[2023-12-02] MEDS: hydroCHLOROthiazide 25 MG TABLET PO (08:47)
[2023-12-02] MEDS: Metoprolol Tartrate 50 MG TABLET PO (08:47)
[2023-12-02] MEDS: PARoxetine HCL 40 MG TABLET PO ×2 (08:47→21:24)
[2023-12-02] MEDS: Potassium Chloride ER 20 MEQ TAB.ER.PRT PO (08:47)
[2023-12-02] MEDS: Buprenorphine/Naloxone 2/0.5mg FILM 0.5 FILM SUBLINGUAL (08:48)
[2023-12-02] MEDS: 0.9 % Sodium Chloride Flush 3 ML SYRINGE IVFLUSH ×3 (08:48→21:25)
[2023-12-02] MEDS: Nicotine 21 MG PATCH.TD24 TRANSDERMA (08:48)
[2023-12-02 08:52] LABS: Hematocrit 29.6 % (37.0-47.0); Hemoglobin 9.7 g/dl (12.0-16.0); Mean Corpuscular HGB Conc 32.8 g/dl (31.0-35.0); Mean Corpuscular Hemoglobin 29.8 pg (27.0-33.0); Mean Corpuscular Volume 90.8 fL (80.0-98.0); Mean Platelet Volume 9.7 fL (9.4-12.3); Platelet Count 214 X10*3/uL (160-400); Red Blood Count 3.26 X10*6/uL (4.20-5.50); Red Cell Distribution Width 16.3 % (11.0-16.0)
[2023-12-02 09:06] LABS: Anion Gap 15 (12-20); Blood Urea Nitrogen 29 mg/dL (9-16); Calcium 9.4 mg/dL (8.4-10.2); Carbon Dioxide 27 mmol/L (22-29); Chloride 101 mmol/L (96-108); Creatinine Clr Calc Pharmacy 47.6; Estimated Glomerular Filt Rate 37; Glucose Random 189 mg/dL (60-115); Magnesium 2.2 mg/dL (1.6-2.6); Potassium 4.1 mmol/L (3.3-5.1); Sodium 139 mmol/L (135-145)
[2023-12-02] MEDS: dilTIAZem HCL 125 MG in 0.9 % Sodium Chloride 100 ML 15 MG IVCONT (09:52)
--- NOTE | 2023-12-02 10:24 | HO.PM.IMPN ---
Subjective Subjective Date of Service: 12/02/23 Interval History: seen and examined this AM reports sob and intermittent palp denies chest pain Review of Systems Negative except HPI/interval history. Physical Exam Vital Signs: Vital Signs: Last Vital Signs Temp 97.0 F 12/02/23 08:00 Pulse 136 H 12/02/23 09:52 Resp 20 12/02/23 08:00 BP 134/98 H 12/02/23 08:00 Pulse Ox 95 12/02/23 08:00 O2 Del Method Room Air 12/02/23 08:00 O2 Flow Rate 3 12/02/23 04:35 Oxygen Flow Rate 2 12/01/23 06:39 BMI result Body Mass Index 32.3 Const: Other: General - no acute distress, appears comfortable Cardiovascular - IRR -- 120s+ Lungs - poor air entry globally Abdomen - soft, nontender, no rebound or guarding Extremities - no edema bilaterally Neuro - awake and alert, no focal deficits Objective Data Active Medications Acetaminophen (Acetaminophen 325 Mg Tablet) 650 mg PO Q6H PRN PRN Reason: Pain, Mild (Pain Scale 1-3), fever or headache Atorvastatin Calcium (Atorvastatin Calcium 10 Mg Tablet) 10 mg PO BEDTIME [facility] Last Admin: 12/01/23 20:44 Dose: 10 mg Documented By: JOSÉ MANUEL Benzonatate (Benzonatate 100 Mg Capsule) 100 mg PO TID PRN PRN Reason: Cough Last Admin: 12/02/23 01:25 Dose: 100 mg Documented By: SERA Buprenorphine/Naloxone (Buprenorphine/Naloxone 2/0.5mg Film) 0.5 film SUBLINGUAL DAILY [facility] Last Admin: 12/02/23 08:48 Dose: 0.5 film Documented By: CHRISARElkin Calcium Carbonate (Calcium Carbonate 750 Mg Tab.Chew) 750 mg PO Q4H PRN PRN Reason: Heartburn Levalbuterol HCl 1.25 mg/ (Ipratropium [place] 0.5 mg) 0 mg INHALE RQ4H WHILE AWAKE PRN PRN Reason: Shortness of Breath/Wheezing Docusate Sodium (Docusate Sodium 100 Mg Capsule) 100 mg PO BEDTIME PRN PRN Reason: stool softener Last Admin: 12/01/23 20:44 Dose: 100 mg Documented By: JOSÉ MANUEL Enoxaparin Sodium (Enoxaparin Sodium 40 Mg/0.4 Ml Syringe) 40 mg SUBCUT Q24H [facility] Last Admin: 12/01/23 14:30 Dose: 40 mg Documented By: MAKENZIE Folic Acid (Folic Acid 1 Mg Tablet) 1 mg PO DAILY [facility] Last Admin: 12/02/23 08:47 Dose: 1 mg Documented By: WANDA Hydrochlorothiazide (Hydrochlorothiazide 25 Mg Tablet) 25 mg PO DAILY [facility] Last Admin: 12/02/23 08:47 Dose: 25 mg Documented By: WANDA Diltiazem HCl 125 mg/ Sodium (Chloride) 125 mls @ 0 mls/hr IVCONT .Q0M [facility]; Protocol Last Admin: 12/02/23 09:52 Dose: 15 mg/hr, 15 mls/hr Documented By: WANDA Levothyroxine Sodium (Levothyroxine Sodium 25 Mcg Tablet) 25 mcg PO DAILY@0600 [facility] Last Admin: 12/02/23 06:13 Dose: 25 mcg Documented By: VARINDER Magnesium Hydroxide (Milk Of Magnesia 30 Ml Oral.Susp) 30 ml PO DAILY PRN PRN Reason: Constipation Melatonin (Melatonin 3 Mg Tablet) 6 mg PO BEDTIME PRN PRN Reason: Insomnia Metoprolol Tartrate (Metoprolol Tartrate 50 Mg Tablet) 50 mg PO DAILY [facility] Last Admin: 12/02/23 08:47 Dose: 50 mg Documented By: WANDA Nicotine (Nicotine 21 Mg Patch.Td24) 21 mg TRANSDERMA DAILY [facility] Last Admin: 12/02/23 08:48 Dose: 21 mg Documented By: WANDA Non-Formulary Medication (Milnacipran [Savella]) 50 mg PO BID [facility] Non-Formulary Medication (Umeclidinium-Vilanterol [Anoro Ellipta]) 1 inhalation INHALE DAILY [facility] Omeprazole (Omeprazole 20 Mg Capsule.Dr) 20 mg PO DAILY@0630 [facility] Last Admin: 12/02/23 06:13 Dose: 20 mg Documented By: VARINDER Ondansetron HCl (Ondansetron Hcl 4 Mg/2 Ml Vial) 4 mg IVPUSH Q8H PRN PRN Reason: Nausea and Vomiting Paroxetine HCl (Paroxetine Hcl 40 Mg Tablet) 40 mg PO BID [facility] Last Admin: 12/02/23 08:47 Dose: 40 mg Documented By: WANDA Potassium Chloride (Potassium Chloride Er 20 Meq Tab.Er.Prt) 20 meq PO DAILY [facility] Last Admin: 12/02/23 08:47 Dose: 20 meq Documented By: WANDA Sodium Chloride (0.9 % Sodium Chloride Flush 3 Ml Syringe) 3 ml IVFLUSH QSHIFT [facility] Last Admin: 12/02/23 08:48 Dose: 3 ml Documented By: WANDA Theophylline (Theophylline Anhydrous Er 400 Mg Tab.Er.24h) 400 mg PO DAILY [facility] Last Admin: 12/02/23 08:47 Dose: 400 mg Documented By: WANDA Labs 12/02/23 07:59 12/02/23 07:59 Labs: Laboratory Results - last 24 hr 12/01/23 12/01/23 12/02/23 10:08 11:15 07:59 MCV 90.8 MCH 29.8 MCHC 32.8 RDW 16.3 H Plt Count 214 D MPV 9.7 Absolute Nucleated RBC 0.000 Nucleated RBC % (auto) 0.0 Anion Gap 15 Estim Creat Clear Calc 47.6 Estimated GFR 37 Random Glucose 189 H Lactic Acid 1.4 Calcium 9.4 Magnesium 2.2 Troponin I High Sens 39.7 H Urine Color Yellow Urine Appearance Clear Urine pH 6.0 Ur Specific [place] 1.015 Urine Protein 30 (1+) H Urine Glucose (UA) Negative Urine Ketones Negative Urine Blood Negative Urine Nitrite Negative Ur Leukocyte Esterase Trace H Urine RBC 0-2 Urine WBC 0-5 Ur Squamous Epith Cells 6-10 Urine Bacteria Trace Hyaline Casts 0-2 Assessment and Plan (1) Atrial fibrillation with RVR: Status: Acute Plan 63 yo F with non-small cell lung Ca s/p LITA + RUL wedge resections with 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 currently on palliative chemo, hx of breast Ca, HCV, depression, HTN, COPD on 3L home O2, opiate dependence, PAF not on OAC due to prior anemia/thrombocytopenia who presented with shortnress of breath and was found to be in A. fib with RVR. 1. A. Fib with RVR difficult to control on max cardizem gtt at 15 started on home metoprolol 50 -- will increase to 25mg q6 hours consult cardiology d/w her risk and benefits of oral anticoagulation -- unsure if she wants to start at this time 2. HypoMg repleted and normal now 3. Chronic respiratory failure with hypoxia and COPD continue baseline O2 continue baseline inhalers and meds 4. Chronic HFpEF does not appear to be in exacerbation continue baseline meds 5. Mood continue baseline meds 6. HTN hold hctz (increasing metoprolol) 7. HLD statin Full Code DVT pptx - lovenox Reason for continued hospitalization: pt on max diltiazem drip for a. fib, still not controlled, requesting cardiology consult Quality Stroke Does the patient have a stroke diagnosis?: No VTE Prior VTE?: No VTE Risk Level:: Medical - moderate - high VTE Device Contraindication: Treatment Not Indicated VTE Drug Contraindication: N/A - Med Ordered
[2023-12-02] MEDS: guaiFENesin DM 100/10/5 ML 5 ML SYRUP PO ×3 (12:08→22:45)
[2023-12-02] MEDS: Metoprolol Tartrate 25 MG TABLET PO ×2 (13:03→18:50)
[2023-12-02] MEDS: Enoxaparin Sodium 40 MG/0.4 ML SYRINGE SUBCUT (13:03)
--- NOTE | 2023-12-02 15:05 | PM.CNCAR ---
History of Present Illness History of Present Illness Date of Service: 12/02/23 Requesting physician: Mukesh Kwan Chief complaint: Afib w/ RVR Narrative: 63-year-old female with lung cancer currently on chemotherapy presenting with shortness of breath and AFib with RVR. She is feeling somewhat better today but said that she was quite short of breath when she presented and was getting palpitations. She was noted to be in AFib with RVR. She was initially treated with Cardizem drip which was eventually stopped. She is on metoprolol tartrate currently 25 mg 4 times a day. At home she is on a combination pill of metoprolol and hydrochlorothiazide. She is saying her breathing is at her baseline which is not great. She is not feeling any palpitations but is saying that her breathing is unchanged compared to before. Chest x-ray reviewed and does not show any significant heart failure but does show chronic changes from her cancer. [facility] Past Medical History Medical History Pancytopenia New onset a-fib Cancer of upper lobe of left lung (~2020) Bilateral lung cancer Obesity History of hepatitis C Smoker Tubular adenoma of colon Pulmonary nodules History of breast cancer (~2006) Internal and external bleeding hemorrhoids Cancer of upper lobe of right lung (~2019) GERD (gastroesophageal reflux disease) Depression COPD (chronic obstructive pulmonary disease) HTN (hypertension) Family History Family History Mother History of lung cancer Brother History of lung cancer Maternal Grandmother Breast cancer in female Maternal Aunt Breast cancer in female Daughter Thyroid cancer Surgical History Surgical History History of lung surgery (~2020) History of anterior colporrhaphy (~2016) History of tubal ligation History of lumpectomy of right breast (~2006) History of colonoscopy (~2014) History of hemorrhoidectomy (~2019) History of back surgery (~2011) History of lobectomy of lung (~2019) Social History Social History Household Members: Significant Other Household Members Other:: 2 Housing: House Are you a primary career education teacher to a significant other at home: No Do you presently have visiting nurse or other home services: No Unable to assess alcohol history related to: Unable to respond Alcohol intake: never Comment: rings appropriately Patient Tobacco Use Status: Former Tobacco user Tobacco use type: Cigarette Cigarette Packs Per Day: 1 Cigarettes Per Day: 10 Years Smoked: 50 Second Hand Smoke Exposure: Yes Substance Use Type: Marijuana Advance Directives Date on File: 02/02/22 service: No Current occupational status: disabled Current occupational exposures/hazards: No Meds Allergies Allergy/AdvReac Type Severity Reaction Status Date / Time lisinopril [LISINOPRIL] Allergy Severe SWELLING- Verified 12/01/23 06:45 ANGIOEDEMA codeine [CODEINE] Allergy Intermediate VOMITING/HIVES, Verified 12/01/23 06:45 vomiting, hives Active Medications: Current Medications Acetaminophen (Acetaminophen 325 Mg Tablet) 650 mg PO Q6H PRN PRN Reason: Pain, Mild (Pain Scale 1-3), fever or headache Atorvastatin Calcium (Atorvastatin Calcium 10 Mg Tablet) 10 mg PO BEDTIME [facility] Last Admin: 12/01/23 20:44 Dose: 10 mg Benzonatate (Benzonatate 100 Mg Capsule) 100 mg PO TID PRN PRN Reason: Cough Last Admin: 12/02/23 01:25 Dose: 100 mg Buprenorphine/Naloxone (Buprenorphine/Naloxone 2/0.5mg Film) 0.5 film SUBLINGUAL DAILY [facility] Last Admin: 12/02/23 08:48 Dose: 0.5 film Calcium Carbonate (Calcium Carbonate 750 Mg Tab.Chew) 750 mg PO Q4H PRN PRN Reason: Heartburn Levalbuterol HCl 1.25 mg/ (Ipratropium Gilby 0.5 mg) 0 mg INHALE RQ4H WHILE AWAKE PRN PRN Reason: Shortness of Breath/Wheezing Docusate Sodium (Docusate Sodium 100 Mg Capsule) 100 mg PO BEDTIME PRN PRN Reason: stool softener Last Admin: 12/01/23 20:44 Dose: 100 mg Enoxaparin Sodium (Enoxaparin Sodium 40 Mg/0.4 Ml Syringe) 40 mg SUBCUT Q24H [facility] Last Admin: 12/02/23 13:03 Dose: 40 mg Folic Acid (Folic Acid 1 Mg Tablet) 1 mg PO DAILY [facility] Last Admin: 12/02/23 08:47 Dose: 1 mg Guaifenesin/Dextromethorphan (Guaifenesin Dm 100/10/5 Ml 5 Ml Syrup) 5 ml PO Q6H [facility] Last Admin: 12/02/23 12:08 Dose: 5 ml Diltiazem HCl 125 mg/ Sodium (Chloride) 125 mls @ 0 mls/hr IVCONT .Q0M [facility]; Protocol Last Titration: 12/02/23 13:34 Dose: 0 mg/hr, 0 mls/hr Levothyroxine Sodium (Levothyroxine Sodium 25 Mcg Tablet) 25 mcg PO DAILY@0600 [facility] Last Admin: 12/02/23 06:13 Dose: 25 mcg Magnesium Hydroxide (Milk Of Magnesia 30 Ml Oral.Susp) 30 ml PO DAILY PRN PRN Reason: Constipation Melatonin (Melatonin 3 Mg Tablet) 6 mg PO BEDTIME PRN PRN Reason: Insomnia Metoprolol Tartrate (Metoprolol Tartrate 25 Mg Tablet) 25 mg PO Q6H [facility]; Protocol Last Admin: 12/02/23 13:03 Dose: 25 mg Nicotine (Nicotine 21 Mg Patch.Td24) 21 mg TRANSDERMA DAILY [facility] Last Admin: 12/02/23 08:48 Dose: 21 mg Non-Formulary Medication (Milnacipran [Savella]) 50 mg PO BID [facility] Non-Formulary Medication (Umeclidinium-Vilanterol [Anoro Ellipta]) 1 inhalation INHALE DAILY [facility] Omeprazole (Omeprazole 20 Mg Capsule.Dr) 20 mg PO DAILY@0630 [facility] Last Admin: 12/02/23 06:13 Dose: 20 mg Ondansetron HCl (Ondansetron Hcl 4 Mg/2 Ml Vial) 4 mg IVPUSH Q8H PRN PRN Reason: Nausea and Vomiting Paroxetine HCl (Paroxetine Hcl 40 Mg Tablet) 40 mg PO BID [facility] Last Admin: 12/02/23 08:47 Dose: 40 mg Potassium Chloride (Potassium Chloride Er 20 Meq Tab.Er.Prt) 20 meq PO DAILY [facility] Last Admin: 12/02/23 08:47 Dose: 20 meq Sodium Chloride (0.9 % Sodium Chloride Flush 3 Ml Syringe) 3 ml IVFLUSH QSHIFT [facility] Last Admin: 12/02/23 08:48 Dose: 3 ml Theophylline (Theophylline Anhydrous Er 400 Mg Tab.Er.24h) 400 mg PO DAILY [facility] Last Admin: 12/02/23 08:47 Dose: 400 mg Home Medications ?Medication ?Instructions ?Recorded ?Confirmed ?Last Taken ?Type milnacipran 50 mg tablet (Savella) 50 mg PO BID 01/18/22 12/01/23 11/30/23 History omeprazole 20 mg capsule,delayed 20 mg PO DAILY@0630 01/18/22 12/01/23 11/30/23 History release paroxetine HCl 20 mg tablet 40 mg PO BID 01/18/22 12/01/23 11/30/23 History simvastatin 20 mg tablet 20 mg PO BEDTIME 02/17/22 12/01/23 11/30/23 History albuterol sulfate 90 mcg/actuation 2 puff inhalation Q6H PRN sob 06/22/23 12/01/23 07/09/23 History aerosol inhaler (Ventolin HFA) buprenorphine 2 mg-naloxone 0.5 mg 0.5 - 1 film sublingual DAILY 07/09/23 12/01/23 11/30/23 History sublingual film (Suboxone) docusate sodium 100 mg capsule 100 mg PO BEDTIME PRN stool 07/09/23 12/01/23 11/02/23 History softener umeclidinium 62.5 mcg-vilanterol 1 inh inhalation DAILY 07/09/23 12/01/23 11/30/23 History 25 mcg/actuation powdr for inhalation (Anoro Ellipta) ipratropium 0.5 mg-albuterol 3 mg 3 ml inhalation Q6H PRN wheezing 10/18/23 12/01/23 12/01/23 History (2.5 mg base)/3 mL nebulization soln levothyroxine 25 mcg tablet 25 mcg PO DAILY@0600 10/18/23 12/01/23 11/30/23 History (Synthroid) acetaminophen 500 mg tablet 500 mg PO DAILY PRN Pain 11/03/23 12/01/23 Unknown History Physical Exam Vital Signs: Vital Signs: Last Vital Signs Temp 97.2 F 12/02/23 12:00 Pulse 62 12/02/23 13:34 Resp 20 12/02/23 12:00 BP 153/109 H 12/02/23 12:00 Pulse Ox 95 12/02/23 12:00 O2 Del Method Nasal Cannula 12/02/23 12:00 O2 Flow Rate 3 12/02/23 12:00 Oxygen Flow Rate 2 12/01/23 06:39 BMI result Body Mass Index 32.3 GENERAL APPEARANCE: in no acute distress, pleasant. NECK: no carotid bruit, mild jugular venous distention. SKIN: no suspicious lesions, warm and dry. HEART: no murmurs, irregular rate and rhythm. LUNGS: Diminished breath sounds bilaterally. No significant crackles or wheezes. ABDOMEN: soft, nontender. EXTREMITIES: no edema. PERIPHERAL PULSES: equal. NEUROLOGIC: No gross deficits, AAO X 3 Objective Labs and Meds 12/02/23 07:59 12/02/23 07:59 Lab results: Laboratory Results - last 24 hr 12/02/23 07:59 WBC 5.0 RBC 3.26 L Hgb 9.7 L Hct 29.6 L MCV 90.8 MCH 29.8 MCHC 32.8 RDW 16.3 H Plt Count 214 D MPV 9.7 Absolute Nucleated RBC 0.000 Nucleated RBC % (auto) 0.0 Sodium 139 Potassium 4.1 Chloride 101 Carbon Dioxide 27 Anion Gap 15 BUN 29 H Creatinine 1.42 H Estim Creat Clear Calc 47.6 Estimated GFR 37 Random Glucose 189 H Calcium 9.4 Magnesium 2.2 Assessment and Plan (1) Atrial fibrillation with RVR: Status: Acute Plan 63-year-old female presenting for palpitations and shortness of breath and noticed to be in AFib with RVR. She has known history of lung cancer and is currently on chemotherapy. Heart rate is controlled with metoprolol 25 mg 4 times a day. If blood pressure is stable then she can be transitioned to Toprol-XL 100 mg daily. If she still has poor rate control then oral Cardizem can be tried and I would start her on 120 mg CD Cardizem. We will discuss with oncology whether apixaban is a possibility to start given her active chemotherapy. Thank you for allowing me to participate in the care of your patient. Please feel free to contact me if you have any questions. Procedures Date of Service Date of Service: 12/02/23
[2023-12-02] MEDS: levalbuterol HCL 1.25 MG, Ipratropium Bromide 0.5 MG INHALE ×2 (15:34→20:16)
[2023-12-02] MEDS: Atorvastatin Calcium 10 MG TABLET PO (21:24)
[2023-12-03] VITALS (10 sets, daily range): BP systolic 110–159; BP diastolic 68–91; PULSE 72–115; RESP 17–20; TEMP 36.2–37.1; O2SAT 92–96
[2023-12-03] MEDS: Metoprolol Tartrate 25 MG TABLET PO ×4 (01:27→18:13)
[2023-12-03] MEDS: Benzonatate 100 MG CAPSULE PO ×3 (01:27→16:20)
[2023-12-03] MEDS: levalbuterol HCL 1.25 MG, Ipratropium Bromide 0.5 MG INHALE (01:42)
[2023-12-03] MEDS: Levothyroxine Sodium 25 MCG TABLET PO (06:15)
[2023-12-03] MEDS: guaiFENesin DM 100/10/5 ML 5 ML SYRUP PO ×4 (06:15→22:35)
[2023-12-03] MEDS: Omeprazole 20 MG CAPSULE.DR PO (06:15)
[2023-12-03 06:40] LABS: Hematocrit 29.8 % (37.0-47.0); Hemoglobin 9.4 g/dl (12.0-16.0); Mean Corpuscular HGB Conc 31.5 g/dl (31.0-35.0); Mean Corpuscular Hemoglobin 29.4 pg (27.0-33.0); Mean Corpuscular Volume 93.1 fL (80.0-98.0); Mean Platelet Volume 9.6 fL (9.4-12.3); NRBC Pct Auto 0.3 /100WBC (0.0-0.2); Platelet Count 223 X10*3/uL (160-400); Red Cell Distribution Width 16.5 % (11.0-16.0); White Blood Count 6.1 X10*3/uL (4.8-10.8)
[2023-12-03 06:53] LABS: Anion Gap 14 (12-20); Blood Urea Nitrogen 32 mg/dL (9-16); Calcium 9.5 mg/dL (8.4-10.2); Carbon Dioxide 28 mmol/L (22-29); Chloride 100 mmol/L (96-108); Creatinine Clr Calc Pharmacy 55.3; Estimated Glomerular Filt Rate 45; Glucose Random 114 mg/dL (60-115); Magnesium 1.9 mg/dL (1.6-2.6); Potassium 3.6 mmol/L (3.3-5.1); Sodium 138 mmol/L (135-145)
--- NOTE | 2023-12-03 07:40 | P.PNIM_ITS ---
Subjective Subjective Date of Service: 12/03/23 Interval History: Seen in follow up for afib rvr Interval history: Hr 80s-110. Weaned off cardizem drip. Still reporting NEELY, but consistent with baseline. NO lightheadedness, palpitations, chest pain Review of Systems Review of Systems: Yes all other systems are reviewed and are negative Physical Exam 2 Vital Signs: Vital Signs: Last Vital Signs Temp 97.2 F 12/03/23 03:54 Pulse 91 12/03/23 06:15 Resp 20 12/03/23 03:54 BP 142/91 H 12/03/23 06:15 Pulse Ox 94 12/03/23 03:54 O2 Del Method Nasal Cannula 12/03/23 03:54 O2 Flow Rate 3 12/03/23 03:54 Oxygen Flow Rate 2 12/01/23 06:39 BMI result Body Mass Index 32.3 Constitutional - Awake and Alert, No apparent distress Eyes - PERRLA, EOMI Cardiovascular - S1S2, RRR, No edema Respiratory - Normal lung expansion, Normal respiratory effort, No respiratory distress, CTA bilaterally Gastrointestinal - NT / ND; +BS; No rebound or guarding Extremities - no calf tenderness bilaterally, no swelling Skin - Warm/Dry Neurological - Alert & oriented x3 Psychological - Appropriate affect Objective Data Active Medications Acetaminophen (Acetaminophen 325 Mg Tablet) 650 mg PO Q6H PRN PRN Reason: Pain, Mild (Pain Scale 1-3), fever or headache Atorvastatin Calcium (Atorvastatin Calcium 10 Mg Tablet) 10 mg PO BEDTIME [facility] Last Admin: 12/02/23 21:24 Dose: 10 mg Documented By: DARRELL Benzonatate (Benzonatate 100 Mg Capsule) 100 mg PO TID PRN PRN Reason: Cough Last Admin: 12/03/23 01:27 Dose: 100 mg Documented By: DARRELL Buprenorphine/Naloxone (Buprenorphine/Naloxone 2/0.5mg Film) 0.5 film SUBLINGUAL DAILY [facility] Last Admin: 12/02/23 08:48 Dose: 0.5 film Documented By: WANDA Calcium Carbonate (Calcium Carbonate 750 Mg Tab.Chew) 750 mg PO Q4H PRN PRN Reason: Heartburn Levalbuterol HCl 1.25 mg/ (Ipratropium Mena 0.5 mg) 0 mg INHALE RQ4H WHILE AWAKE PRN PRN Reason: Shortness of Breath/Wheezing Last Admin: 12/03/23 01:42 Dose: 5 dose Documented By: CHRISTOPHER Diltiazem HCl (Diltiazem Hcl Cd 180 Mg Cap.Er.24h) 180 mg PO DAILY [facility]; Protocol Docusate Sodium (Docusate Sodium 100 Mg Capsule) 100 mg PO BEDTIME PRN PRN Reason: stool softener Last Admin: 12/01/23 20:44 Dose: 100 mg Documented By: JOSÉ MANUEL Enoxaparin Sodium (Enoxaparin Sodium 40 Mg/0.4 Ml Syringe) 40 mg SUBCUT Q24H [facility] Last Admin: 12/02/23 13:03 Dose: 40 mg Documented By: WANDA Folic Acid (Folic Acid 1 Mg Tablet) 1 mg PO DAILY [facility] Last Admin: 12/02/23 08:47 Dose: 1 mg Documented By: WANDA Guaifenesin/Dextromethorphan (Guaifenesin Dm 100/10/5 Ml 5 Ml Syrup) 5 ml PO Q6H [facility] Last Admin: 12/03/23 06:15 Dose: 5 ml Documented By: DARRELL Diltiazem HCl 125 mg/ Sodium (Chloride) 125 mls @ 0 mls/hr IVCONT .Q0M [facility]; Protocol Last Titration: 12/02/23 13:34 Dose: 0 mg/hr, 0 mls/hr Documented By: WANDA Levothyroxine Sodium (Levothyroxine Sodium 25 Mcg Tablet) 25 mcg PO DAILY@0600 [facility] Last Admin: 12/03/23 06:15 Dose: 25 mcg Documented By: DARRELL Magnesium Hydroxide (Milk Of Magnesia 30 Ml Oral.Susp) 30 ml PO DAILY PRN PRN Reason: Constipation Melatonin (Melatonin 3 Mg Tablet) 6 mg PO BEDTIME PRN PRN Reason: Insomnia Metoprolol Tartrate (Metoprolol Tartrate 25 Mg Tablet) 25 mg PO Q6H [facility]; Protocol Last Admin: 12/03/23 06:15 Dose: 25 mg Documented By: DARRELL Nicotine (Nicotine 21 Mg Patch.Td24) 21 mg TRANSDERMA DAILY [facility] Last Admin: 12/02/23 08:48 Dose: 21 mg Documented By: WANDA Non-Formulary Medication (Milnacipran [Savella]) 50 mg PO BID [facility] Non-Formulary Medication (Umeclidinium-Vilanterol [Anoro Ellipta]) 1 inhalation INHALE DAILY [facility] Omeprazole (Omeprazole 20 Mg Capsule.Dr) 20 mg PO DAILY@0630 [facility] Last Admin: 12/03/23 06:15 Dose: 20 mg Documented By: DARRELL Ondansetron HCl (Ondansetron Hcl 4 Mg/2 Ml Vial) 4 mg IVPUSH Q8H PRN PRN Reason: Nausea and Vomiting Paroxetine HCl (Paroxetine Hcl 40 Mg Tablet) 40 mg PO BID [facility] Last Admin: 12/02/23 21:24 Dose: 40 mg Documented By: DARRELL Potassium Chloride (Potassium Chloride Er 20 Meq Tab.Er.Prt) 20 meq PO DAILY [facility] Last Admin: 12/02/23 08:47 Dose: 20 meq Documented By: WANDA Sodium Chloride (0.9 % Sodium Chloride Flush 3 Ml Syringe) 3 ml IVFLUSH QSHIFT [facility] Last Admin: 12/02/23 21:25 Dose: 3 ml Documented By: DARRELL Theophylline (Theophylline Anhydrous Er 400 Mg Tab.Er.24h) 400 mg PO DAILY [facility] Last Admin: 12/02/23 08:47 Dose: 400 mg Documented By: WANDA Labs 12/03/23 06:11 12/03/23 06:11 Labs: Laboratory Results - last 24 hr 12/02/23 12/03/23 07:59 06:11 MCV 90.8 93.1 MCH 29.8 29.4 MCHC 32.8 31.5 RDW 16.3 H 16.5 H Plt Count 214 D 223 MPV 9.7 9.6 Absolute Nucleated RBC 0.000 0.020 H Nucleated RBC % (auto) 0.0 0.3 H Anion Gap 15 14 Estim Creat Clear Calc 47.6 55.3 Estimated GFR 37 45 Random Glucose 189 H 114 Calcium 9.4 9.5 Magnesium 2.2 1.9 Microbiology Microbiology Results: Microbiology 12/01/23 10:08 Blood Culture - Preliminary Blood - Venous No growth after 24 hours. 12/01/23 10:08 - Preliminary Blood - Venous No growth after 24 hours. Assessment and Plan (1) Atrial fibrillation with RVR: Status: Acute Plan 63 yo F with non-small cell lung Ca s/p LITA + RUL wedge resections with 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 currently on palliative chemo, hx of breast Ca, HCV, depression, HTN, COPD on 3L home O2, opiate dependence, PAF not on OAC due to prior anemia/thrombocytopenia who presented with shortnress of breath and was found to be in A. fib with RVR. A. Fib with RVR Weaned from cardizem drip Continue metoprolol 25mg q6h. Add diltiazem 180mg CD per cardiology. Transition to [id number] daily am Appreciate cardiology input Cardiology discussed [facility] oncology. Eliquis 5mg bid initiated monitor on tele HypoMg repleted and normal now Chronic respiratory failure with hypoxia and COPD continue baseline O2 continue baseline inhalers and meds Chronic HFpEF does not appear to be in exacerbation continue baseline meds Mood continue baseline meds HTN hold hctz (increasing metoprolol and po dilt added) HLD statin Bilateral lung ca on chemo, outpt follow up with dr michelle Full Code DVT pptx - lovenox Reason for continued hospitalization: recently weaned from cardizem drip and started on po dilt will require ongoing tele monitoring to assess for effectiveness and monitor for decompensation as well as ongoing expert consultation Quality Stroke Does the patient have a stroke diagnosis?: No VTE Prior VTE?: No VTE Risk Level:: Medical - moderate - high VTE Device Contraindication: Treatment Not Indicated VTE Drug Contraindication: N/A - Med Ordered
[2023-12-03] MEDS: Potassium Chloride ER 20 MEQ TAB.ER.PRT PO (08:07)
[2023-12-03] MEDS: Theophylline Anhydrous ER 400 MG TAB.ER.24H PO (08:07)
[2023-12-03] MEDS: PARoxetine HCL 40 MG TABLET PO ×2 (08:07→21:26)
[2023-12-03] MEDS: dilTIAZem HCL CD 180 MG CAP.ER.24H PO (08:08)
[2023-12-03] MEDS: Buprenorphine/Naloxone 2/0.5mg FILM 0.5 FILM SUBLINGUAL (08:08)
[2023-12-03] MEDS: Folic Acid 1 MG TABLET PO (08:08)
[2023-12-03] MEDS: 0.9 % Sodium Chloride Flush 3 ML SYRINGE IVFLUSH ×3 (08:09→21:28)
[2023-12-03] MEDS: Nicotine 21 MG PATCH.TD24 TRANSDERMA (08:09)
--- NOTE | 2023-12-03 09:18 | PM.PNCARD ---
Subjective Subjective Date of Service: 12/03/23 Interval history: Seen and examined at bedside. still SOB. in Afib Physical Exam Vital Signs: Last Vital Signs Temp 97.4 F 12/03/23 07:41 Pulse 100 12/03/23 07:41 Resp 17 12/03/23 07:41 BP 124/81 12/03/23 07:41 Pulse Ox 95 12/03/23 07:41 O2 Del Method Nasal Cannula 12/03/23 07:41 O2 Flow Rate 4 12/03/23 07:41 Oxygen Flow Rate 2 12/01/23 06:39 BMI result Body Mass Index 32.3 GENERAL APPEARANCE: in no acute distress, pleasant. NECK: no carotid bruit, mild jugular venous distention. SKIN: no suspicious lesions, warm and dry. HEART: no murmurs, irregular rate and rhythm. LUNGS: Diminished breath sounds bilaterally. b/l wheezes. ABDOMEN: soft, nontender. EXTREMITIES: no edema. PERIPHERAL PULSES: equal. NEUROLOGIC: No gross deficits, AAO X 3 Objective Labs and Meds 12/03/23 06:11 12/03/23 06:11 Lab results: Laboratory Results - last 24 hr 12/03/23 06:11 WBC 6.1 RBC 3.20 L Hgb 9.4 L Hct 29.8 L MCV 93.1 MCH 29.4 MCHC 31.5 RDW 16.5 H Plt Count 223 MPV 9.6 Absolute Nucleated RBC 0.020 H Nucleated RBC % (auto) 0.3 H Sodium 138 Potassium 3.6 Chloride 100 Carbon Dioxide 28 Anion Gap 14 BUN 32 H Creatinine 1.22 Estim Creat Clear Calc 55.3 Estimated GFR 45 Random Glucose 114 Calcium 9.5 Magnesium 1.9 Progress Note: A&P Assessment and plan (1) Atrial fibrillation with RVR: Status: Acute Plan 63 female with Afib with RVR and lung cancer on chemo. Rate controlled with cardizem and metoprolol. On apixaban. chronic dyspnea due to advanced lung cancer. Time Spent With Patient Time: Total time managing care of this patient today ____ minutes. Progress Note: Quality Stroke Does the patient have a stroke diagnosis?: No Procedures Date of Service Date of Service: 12/03/23
[2023-12-03] MEDS: Acetaminophen 325 MG TABLET 650 MG PO (10:40)
--- NOTE | 2023-12-03 11:04 | MHC.CM.PN ---
Per ROUNDS discussion, Patient is not yet medically cleared for dc (LOW HR/med changes/symptomatic); home/resume services is the goal and CM will continue to follow.
[2023-12-03] MEDS: Apixaban 5 MG TABLET PO ×2 (13:20→21:26)
[2023-12-03] MEDS: Atorvastatin Calcium 10 MG TABLET PO (21:26)
[2023-12-04 04:00] VITALS: BP 151/88; PULSE 107; RESP 20; TEMP 36.8; O2SAT 96
[2023-12-04] MEDS: Levothyroxine Sodium 25 MCG TABLET PO (06:02)
[2023-12-04] MEDS: Omeprazole 20 MG CAPSULE.DR PO (06:02)
[2023-12-04] MEDS: guaiFENesin DM 100/10/5 ML 5 ML SYRUP PO ×4 (06:06→21:16)
[2023-12-04 06:09] LABS: MANUAL DIFF FLAG NO
[2023-12-04 06:27] LABS: Basophils Percent Auto 0.5 % (0-2); Eosinophils Absolute Auto 0.1 X10*3/uL (0.0-0.4); Eosinophils Percent Auto 1.5 % (0-4); Hematocrit 28.7 % (37.0-47.0); Hemoglobin 9.4 g/dl (12.0-16.0); Imm Gran Abs Auto 0.09 X10*3/uL (0.00-0.03); Imm Gran Pct Auto 2.3 % (0.0-0.4); Lymphocytes Absolute Auto 0.7 X10*3/uL (1.2-4.9); Lymphocytes Percent Auto 16.6 % (20-40); Mean Corpuscular HGB Conc 32.8 g/dl (31.0-35.0); Mean Corpuscular Hemoglobin 30.2 pg (27.0-33.0); Mean Corpuscular Volume 92.3 fL (80.0-98.0); Mean Platelet Volume 9.6 fL (9.4-12.3); Monocytes Absolute Auto 0.7 X10*3/uL (0.1-1.2); Monocytes Percent Auto 16.3 % (2-11); NRBC Pct Auto 0.5 /100WBC (0.0-0.2); Neutrophils Absolute Auto 2.5 x10*3/uL (2.0-8.3); Neutrophils Percent Auto 62.8 % (45-73); Platelet Count 193 X10*3/uL (160-400); Red Blood Count 3.11 X10*6/uL (4.20-5.50); Red Cell Distribution Width 16.1 % (11.0-16.0)
[2023-12-04 06:32] LABS: Anion Gap 15 (12-20); Blood Urea Nitrogen 28 mg/dL (9-16); Calcium 9.9 mg/dL (8.4-10.2); Carbon Dioxide 33 mmol/L (22-29); Chloride 96 mmol/L (96-108); Creatinine Clr Calc Pharmacy 45.9; Estimated Glomerular Filt Rate 36; Glucose Random 126 mg/dL (60-115); Sodium 140 mmol/L (135-145)
[2023-12-04 08:11] LABS: Magnesium 1.7 mg/dL (1.6-2.6)
[2023-12-04 09:18] VITALS: BP 125/98; PULSE 110; RESP 18; TEMP 36.7; O2SAT 97
[2023-12-04] MEDS: Acetaminophen 325 MG TABLET 650 MG PO (09:30)
[2023-12-04] MEDS: Theophylline Anhydrous ER 400 MG TAB.ER.24H PO (09:30)
[2023-12-04] MEDS: Apixaban 5 MG TABLET PO ×2 (09:30→21:14)
[2023-12-04] MEDS: PARoxetine HCL 40 MG TABLET PO ×2 (09:31→21:14)
[2023-12-04] MEDS: Potassium Chloride ER 20 MEQ TAB.ER.PRT PO (09:31)
[2023-12-04] MEDS: Folic Acid 1 MG TABLET PO (09:31)
[2023-12-04] MEDS: Metoprolol Succinate ER 100 MG TAB.ER.24H PO (09:31)
[2023-12-04] MEDS: Buprenorphine/Naloxone 2/0.5mg FILM 0.5 FILM SUBLINGUAL (09:32)
[2023-12-04] MEDS: 0.9 % Sodium Chloride Flush 3 ML SYRINGE IVFLUSH ×3 (09:33→21:17)
[2023-12-04] MEDS: dilTIAZem HCL CD 240 MG CAP.ER.DEG PO (10:01)
[2023-12-04] MEDS: Furosemide 40 MG/4 ML VIAL IVPUSH (10:54)
--- NOTE | 2023-12-04 11:00 | PM.PNCARD ---
Subjective Subjective Date of Service: 12/04/23 Interval history: Seen examined at bedside. Continues to have AFib with RVR. She is on Cardizem 180 mg and Toprol-XL. Complaining that her breathing is worse than usual. She has chronic shortness of breath due to lung cancer and COPD. Physical Exam Vital Signs: Last Vital Signs Temp 98.0 F 12/04/23 09:18 Pulse 110 H 12/04/23 09:18 Resp 18 12/04/23 09:18 BP 125/98 H 12/04/23 09:18 Pulse Ox 97 12/04/23 09:18 O2 Del Method Nasal Cannula 12/04/23 09:18 O2 Flow Rate 3 12/04/23 09:18 Oxygen Flow Rate 2 12/01/23 06:39 BMI result Body Mass Index 32.3 GENERAL APPEARANCE: in no acute distress, pleasant. NECK: no carotid bruit, mild jugular venous distention. SKIN: no suspicious lesions, warm and dry. HEART: no murmurs, irregular rate and rhythm. LUNGS: Diminished breath sounds bilaterally. b/l wheezes. ABDOMEN: soft, nontender. EXTREMITIES: no edema. PERIPHERAL PULSES: equal. NEUROLOGIC: No gross deficits, AAO X 3 Objective Labs and Meds 12/04/23 05:53 12/04/23 05:53 Lab results: Laboratory Results - last 24 hr 12/04/23 05:53 WBC 4.0 L RBC 3.11 L Hgb 9.4 L Hct 28.7 L MCV 92.3 MCH 30.2 MCHC 32.8 RDW 16.1 H Plt Count 193 MPV 9.6 Immature Gran % (Auto) 2.3 H Neut % (Auto) 62.8 Lymph % (Auto) 16.6 L Mcdonough % (Auto) 16.3 H Eos % (Auto) 1.5 Baso % (Auto) 0.5 Lymph # (Auto) 0.7 L Mcdonough # (Auto) 0.7 Eos # (Auto) 0.1 Baso # (Auto) 0.0 Abs Immat Gran (auto) 0.09 H Absolute Neuts (auto) 2.5 Absolute Nucleated RBC 0.020 H Nucleated RBC % (auto) 0.5 H Sodium 140 Potassium 4.0 Chloride 96 Carbon Dioxide 33 H Anion Gap 15 BUN 28 H Creatinine 1.47 H Estim Creat Clear Calc 45.9 Estimated GFR 36 Random Glucose 126 H Calcium 9.9 Magnesium 1.7 Progress Note: A&P Assessment and plan (1) Atrial fibrillation with RVR: Status: Acute Plan Pleasant 63-year-old female with lung cancer on chemotherapy presenting with AFib with RVR and shortness of breath. We have opted for a rate control strategy currently. She is on metoprolol and Cardizem. Titrate the Cardizem to 240 mg daily. On anticoagulation with apixaban 5 mg twice a day. Give IV Lasix to see if her breathing improves with that. Not obvious heart failure but it is possible that she is somewhat congested and maybe that is why breathing is worse. Shortness of breath is present all the time in her due to lung cancer unfortunately. Thank you for allowing me to participate in the care of your patient. Please feel free to contact me if you have any questions. Time Spent With Patient Time: Total time managing care of this patient today ____ minutes. Progress Note: Quality Stroke Does the patient have a stroke diagnosis?: No Procedures Date of Service Date of Service: 12/04/23
[2023-12-04 12:00] VITALS: BP 174/97; PULSE 97; RESP 20; TEMP 36.8; O2SAT 95
--- NOTE | 2023-12-04 12:57 | HO.PM.IMPN ---
Subjective Subjective Date of Service: 12/04/23 Interval History: HR in 130s, feels short of breath/palpitations no chest pain Review of Systems Review of Systems: Yes all other systems are reviewed and are negative Physical Exam Vital Signs: Vital Signs: Last Vital Signs Temp 98.3 F 12/04/23 12:00 Pulse 97 12/04/23 12:00 Resp 20 12/04/23 12:00 BP 174/97 H 12/04/23 12:00 Pulse Ox 95 12/04/23 12:00 O2 Del Method Nasal Cannula 12/04/23 12:00 O2 Flow Rate 4 12/04/23 12:00 Oxygen Flow Rate 2 12/01/23 06:39 BMI result Body Mass Index 32.3 Gen: in no acute distress HEENT: sclera anicteric, moist mucus membranes Neck: supple Lungs: diminished throughout, faint exp wheezing Heart: rapid, irregular, no murmurs Abd: soft, non-tender, non-distended Ext: no edema Skin: warm/well-perfused Neuro: alert and oriented x3, no focal findings Psych: appropriate affect Objective Data Active Medications Acetaminophen (Acetaminophen 325 Mg Tablet) 650 mg PO Q6H PRN PRN Reason: Pain, Mild (Pain Scale 1-3), fever or headache Last Admin: 12/04/23 09:30 Dose: 650 mg Documented By: KUSHAL Apixaban (Apixaban 5 Mg Tablet) 5 mg PO BID [facility] Last Admin: 12/04/23 09:30 Dose: 5 mg Documented By: KUSHAL Atorvastatin Calcium (Atorvastatin Calcium 10 Mg Tablet) 10 mg PO BEDTIME [facility] Last Admin: 12/03/23 21:26 Dose: 10 mg Documented By: POTJAKISU Benzonatate (Benzonatate 100 Mg Capsule) 100 mg PO TID PRN PRN Reason: Cough Last Admin: 12/03/23 16:20 Dose: 100 mg Documented By: KUSHAL Buprenorphine/Naloxone (Buprenorphine/Naloxone 2/0.5mg Film) 0.5 film SUBLINGUAL DAILY [facility] Last Admin: 12/04/23 09:32 Dose: 0.5 film Documented By: KUSHAL Calcium Carbonate (Calcium Carbonate 750 Mg Tab.Chew) 750 mg PO Q4H PRN PRN Reason: Heartburn Levalbuterol HCl 1.25 mg/ (Ipratropium [place] 0.5 mg) 0 mg INHALE RQ4H WHILE AWAKE PRN PRN Reason: Shortness of Breath/Wheezing Last Admin: 12/03/23 01:42 Dose: 5 dose Documented By: CHRISTOPHER Diltiazem HCl (Diltiazem Hcl Cd 240 Mg Cap.Er.Deg) 240 mg PO DAILY [facility]; Protocol Last Admin: 12/04/23 10:01 Dose: 240 mg Documented By: KUSHAL Docusate Sodium (Docusate Sodium 100 Mg Capsule) 100 mg PO BEDTIME PRN PRN Reason: stool softener Last Admin: 12/01/23 20:44 Dose: 100 mg Documented By: JOSÉ MANUEL Folic Acid (Folic Acid 1 Mg Tablet) 1 mg PO DAILY [facility] Last Admin: 12/04/23 09:31 Dose: 1 mg Documented By: KUSHAL Guaifenesin/Dextromethorphan (Guaifenesin Dm 100/10/5 Ml 5 Ml Syrup) 5 ml PO Q6H [facility] Last Admin: 12/04/23 11:05 Dose: 5 ml Documented By: KUSHAL Diltiazem HCl 125 mg/ Sodium (Chloride) 125 mls @ 0 mls/hr IVCONT .Q0M [facility]; Protocol Last Titration: 12/04/23 10:28 Dose: Infused Documented By: IVAN Levothyroxine Sodium (Levothyroxine Sodium 25 Mcg Tablet) 25 mcg PO DAILY@0600 [facility] Last Admin: 12/04/23 06:02 Dose: 25 mcg Documented By: MAT Magnesium Hydroxide (Milk Of Magnesia 30 Ml Oral.Susp) 30 ml PO DAILY PRN PRN Reason: Constipation Melatonin (Melatonin 3 Mg Tablet) 6 mg PO BEDTIME PRN PRN Reason: Insomnia Metoprolol Succinate (Metoprolol Succinate Er 100 Mg Tab.Er.24h) 100 mg PO DAILY [facility]; Protocol Last Admin: 12/04/23 09:31 Dose: 100 mg Documented By: KUSHAL Nicotine (Nicotine 21 Mg Patch.Td24) 21 mg TRANSDERMA DAILY [facility] Last Admin: 12/04/23 09:40 Dose: Not Given Documented By: KUSHAL Non-Admin Reason: Patient Refused Non-Formulary Medication (Milnacipran [Savella]) 50 mg PO BID [facility] Non-Formulary Medication (Umeclidinium-Vilanterol [Anoro Ellipta]) 1 inhalation INHALE DAILY [facility] Omeprazole (Omeprazole 20 Mg Capsule.Dr) 20 mg PO DAILY@0630 [facility] Last Admin: 12/04/23 06:02 Dose: 20 mg Documented By: MAT Ondansetron HCl (Ondansetron Hcl 4 Mg/2 Ml Vial) 4 mg IVPUSH Q8H PRN PRN Reason: Nausea and Vomiting Paroxetine HCl (Paroxetine Hcl 40 Mg Tablet) 40 mg PO BID [facility] Last Admin: 12/04/23 09:31 Dose: 40 mg Documented By: KUSHAL Potassium Chloride (Potassium Chloride Er 20 Meq Tab.Er.Prt) 20 meq PO DAILY [facility] Last Admin: 12/04/23 09:31 Dose: 20 meq Documented By: KUSHAL Sodium Chloride (0.9 % Sodium Chloride Flush 3 Ml Syringe) 3 ml IVFLUSH QSHIFT [facility] Last Admin: 12/04/23 09:33 Dose: 3 ml Documented By: KUSHAL Theophylline (Theophylline Anhydrous Er 400 Mg Tab.Er.24h) 400 mg PO DAILY [facility] Last Admin: 12/04/23 09:30 Dose: 400 mg Documented By: KUSHAL Labs 12/04/23 05:53 12/04/23 05:53 Labs: Laboratory Results - last 24 hr 12/04/23 05:53 MCV 92.3 MCH 30.2 MCHC 32.8 RDW 16.1 H Plt Count 193 MPV 9.6 Immature Gran % (Auto) 2.3 H Neut % (Auto) 62.8 Lymph % (Auto) 16.6 L Dougherty % (Auto) 16.3 H Eos % (Auto) 1.5 Baso % (Auto) 0.5 Lymph # (Auto) 0.7 L Dougherty # (Auto) 0.7 Eos # (Auto) 0.1 Baso # (Auto) 0.0 Abs Immat Gran (auto) 0.09 H Absolute Neuts (auto) 2.5 Absolute Nucleated RBC 0.020 H Nucleated RBC % (auto) 0.5 H Anion Gap 15 Estim Creat Clear Calc 45.9 Estimated GFR 36 Random Glucose 126 H Calcium 9.9 Magnesium 1.7 Microbiology Microbiology Results: Microbiology 12/01/23 10:08 Blood Culture - Preliminary Blood - Venous No growth after 48 hours. 08/21/24 10:08 - Preliminary Blood - Venous No growth after 48 hours. 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 Also given 1 dose of 40 mg IV furosemide for possible component of CHF. Continue apixaban acute/chronic HFpEF - furosemide as above, metoprolol succinate hypoMg - repleted chronic hypoxic resp failure - continue home O2 3L, Trelegy, ipratropium/levalbuterol, theophylline HLD - statin opioid dependence - Suboxone lung CA - on chemotherapy mood disorder - paroxetine VTE ppx - apixaban dispo - eventual home In my clinical judgment, the patient requires continued inpatient hospitalization for the following reasons: rate control Total time managing care of this patient today: 45 minutes. Quality Stroke Does the patient have a stroke diagnosis?: No VTE Prior VTE?: No VTE Risk Level:: Medical - moderate - high VTE Device Contraindication: Treatment Not Indicated VTE Drug Contraindication: N/A - Med Ordered
[2023-12-04] MEDS: dilTIAZem HCL 60 MG TABLET PO (15:47)
[2023-12-04 15:59] VITALS: BP 119/71; PULSE 69; RESP 20; TEMP 37; O2SAT 97
[2023-12-04 19:50] VITALS: BP 122/79; PULSE 78; RESP 20; TEMP 37.2; O2SAT 98
[2023-12-04] MEDS: Atorvastatin Calcium 10 MG TABLET PO (21:13)
[2023-12-04 23:38] VITALS: BP 124/83; PULSE 77; RESP 20; TEMP 37.6; O2SAT 95
[2023-12-05 03:20] VITALS: BP 106/76; PULSE 105; RESP 20; TEMP 36.2; O2SAT 97
[2023-12-05] MEDS: guaiFENesin DM 100/10/5 ML 5 ML SYRUP PO ×3 (04:47→16:40)
[2023-12-05] MEDS: Levothyroxine Sodium 25 MCG TABLET PO (06:11)
[2023-12-05] MEDS: Omeprazole 20 MG CAPSULE.DR PO (06:11)
[2023-12-05 07:17] LABS: VBG Base Excess 18.6 mmol/L; VBG HCO3 44 mmol/L (22-26); VBG pCO2 60 mmHg; VBG pH 7.48 (7.32-7.43); VBG pO2 44 mmHg
[2023-12-05 07:19] LABS: Venous Blood Gas Refer to POC result
[2023-12-05 07:38] LABS: Anion Gap 15 (12-20); Blood Urea Nitrogen 23 mg/dL (9-16); Calcium 9.9 mg/dL (8.4-10.2); Carbon Dioxide 35 mmol/L (22-29); Chloride 93 mmol/L (96-108); Creatinine Clr Calc Pharmacy 55.8; Estimated Glomerular Filt Rate 45; Glucose Random 131 mg/dL (60-115); Magnesium 1.6 mg/dL (1.6-2.6); Potassium 3.2 mmol/L (3.3-5.1); Sodium 140 mmol/L (135-145)
[2023-12-05 07:47] LABS: B Type Natriuretic Peptide 358 pg/mL (<100)
[2023-12-05 09:29] VITALS: BP 121/80; PULSE 93; RESP 18; TEMP 36.7; O2SAT 98
[2023-12-05] MEDS: Buprenorphine/Naloxone 2/0.5mg FILM 0.5 FILM SUBLINGUAL (09:31)
[2023-12-05] MEDS: Apixaban 5 MG TABLET PO ×2 (09:31→20:43)
[2023-12-05] MEDS: Theophylline Anhydrous ER 400 MG TAB.ER.24H PO (09:31)
[2023-12-05] MEDS: dilTIAZem HCL CD 240 MG CAP.ER.DEG PO (09:31)
[2023-12-05] MEDS: Metoprolol Succinate ER 100 MG TAB.ER.24H PO (09:32)
[2023-12-05] MEDS: Potassium Chloride ER 20 MEQ TAB.ER.PRT PO (09:32)
[2023-12-05] MEDS: 0.9 % Sodium Chloride Flush 3 ML SYRINGE IVFLUSH ×3 (09:32→20:43)
[2023-12-05] MEDS: Potassium Chloride ER 20 MEQ TAB.ER.PRT 40 MEQ PO (09:32)
[2023-12-05] MEDS: PARoxetine HCL 40 MG TABLET PO ×2 (09:32→20:43)
[2023-12-05] MEDS: Folic Acid 1 MG TABLET PO (09:32)
--- NOTE | 2023-12-05 09:44 | P.PNIM_ITS ---
Subjective Subjective Date of Service: 12/05/23 Interval History: HR improved but very short of breath when she gets up to the commode Review of Systems Review of Systems: Yes all other systems are reviewed and are negative Physical Exam 2 Vital Signs: Vital Signs: Last Vital Signs Temp 98.1 F 12/05/23 09:29 Pulse 93 12/05/23 09:29 Resp 18 12/05/23 09:29 BP 121/80 12/05/23 09:29 Pulse Ox 98 12/05/23 09:29 O2 Del Method Nasal Cannula 12/05/23 09:29 O2 Flow Rate 4 12/05/23 09:29 Oxygen Flow Rate 2 12/01/23 06:39 BMI result Body Mass Index 32.3 Gen: in no acute distress HEENT: sclera anicteric, moist mucus membranes Neck: supple, JVD present Lungs: diminished throughout, faint exp wheezing Heart: irregular, no murmurs Abd: soft, non-tender, non-distended Ext: no edema Skin: warm/well-perfused Neuro: alert and oriented x3, no focal findings Psych: appropriate affect Objective Data Active Medications Acetaminophen (Acetaminophen 325 Mg Tablet) 650 mg PO Q6H PRN PRN Reason: Pain, Mild (Pain Scale 1-3), fever or headache Last Admin: 12/04/23 09:30 Dose: 650 mg Documented By: KUSHAL Apixaban (Apixaban 5 Mg Tablet) 5 mg PO BID [facility] Last Admin: 12/05/23 09:31 Dose: 5 mg Documented By: SELWYN Atorvastatin Calcium (Atorvastatin Calcium 10 Mg Tablet) 10 mg PO BEDTIME [facility] Last Admin: 12/04/23 21:13 Dose: 10 mg Documented By: MAT Benzonatate (Benzonatate 100 Mg Capsule) 100 mg PO TID PRN PRN Reason: Cough Last Admin: 12/03/23 16:20 Dose: 100 mg Documented By: KUSHAL Buprenorphine/Naloxone (Buprenorphine/Naloxone 2/0.5mg Film) 0.5 film SUBLINGUAL DAILY [facility] Last Admin: 12/05/23 09:31 Dose: 0.5 film Documented By: SELWYN Calcium Carbonate (Calcium Carbonate 750 Mg Tab.Chew) 750 mg PO Q4H PRN PRN Reason: Heartburn Levalbuterol HCl 1.25 mg/ (Ipratropium [place] 0.5 mg) 0 mg INHALE RQ4H WHILE AWAKE PRN PRN Reason: Shortness of Breath/Wheezing Last Admin: 12/03/23 01:42 Dose: 5 dose Documented By: CHRISTOPHER Diltiazem HCl (Diltiazem Hcl Cd 240 Mg Cap.Er.Deg) 240 mg PO DAILY [facility]; Protocol Last Admin: 12/05/23 09:31 Dose: 240 mg Documented By: SELWYN Docusate Sodium (Docusate Sodium 100 Mg Capsule) 100 mg PO BEDTIME PRN PRN Reason: stool softener Last Admin: 12/01/23 20:44 Dose: 100 mg Documented By: JOSÉ MANUEL Folic Acid (Folic Acid 1 Mg Tablet) 1 mg PO DAILY [facility] Last Admin: 12/05/23 09:32 Dose: 1 mg Documented By: SELWYN Furosemide (Furosemide 40 Mg/4 Ml Vial) 40 mg IVPUSH BID@0900,1800 [facility]; Protocol Guaifenesin/Dextromethorphan (Guaifenesin Dm 100/10/5 Ml 5 Ml Syrup) 5 ml PO Q6H [facility] Last Admin: 12/05/23 04:47 Dose: 5 ml Documented By: MAT Diltiazem HCl 125 mg/ Sodium (Chloride) 125 mls @ 0 mls/hr IVCONT .Q0M [facility]; Protocol Last Titration: 12/04/23 10:28 Dose: Infused Documented By: IVAN Levothyroxine Sodium (Levothyroxine Sodium 25 Mcg Tablet) 25 mcg PO DAILY@0600 [facility] Last Admin: 12/05/23 06:11 Dose: 25 mcg Documented By: MAT Magnesium Hydroxide (Milk Of Magnesia 30 Ml Oral.Susp) 30 ml PO DAILY PRN PRN Reason: Constipation Melatonin (Melatonin 3 Mg Tablet) 6 mg PO BEDTIME PRN PRN Reason: Insomnia Metoprolol Succinate (Metoprolol Succinate Er 100 Mg Tab.Er.24h) 100 mg PO DAILY [facility]; Protocol Last Admin: 12/05/23 09:32 Dose: 100 mg Documented By: SELWYN Nicotine (Nicotine 21 Mg Patch.Td24) 21 mg TRANSDERMA DAILY [facility] Last Admin: 12/05/23 09:38 Dose: Not Given Documented By: SELWYN Non-Admin Reason: Patient Refused Non-Formulary Medication (Milnacipran [Savella]) 50 mg PO BID [facility] Non-Formulary Medication (Umeclidinium-Vilanterol [Anoro Ellipta]) 1 inhalation INHALE DAILY [facility] Omeprazole (Omeprazole 20 Mg Capsule.Dr) 20 mg PO DAILY@0630 [facility] Last Admin: 12/05/23 06:11 Dose: 20 mg Documented By: MAT Ondansetron HCl (Ondansetron Hcl 4 Mg/2 Ml Vial) 4 mg IVPUSH Q8H PRN PRN Reason: Nausea and Vomiting Paroxetine HCl (Paroxetine Hcl 40 Mg Tablet) 40 mg PO BID [facility] Last Admin: 12/05/23 09:32 Dose: 40 mg Documented By: SELWYN Potassium Chloride (Potassium Chloride Er 20 Meq Tab.Er.Prt) 20 meq PO DAILY [facility] Last Admin: 12/05/23 09:32 Dose: 20 meq Documented By: SELWYN Sodium Chloride (0.9 % Sodium Chloride Flush 3 Ml Syringe) 3 ml IVFLUSH QSHIFT [facility] Last Admin: 12/05/23 09:32 Dose: 3 ml Documented By: SELWYN Theophylline (Theophylline Anhydrous Er 400 Mg Tab.Er.24h) 400 mg PO DAILY [facility] Last Admin: 12/05/23 09:31 Dose: 400 mg Documented By: SELWYN Labs 12/04/23 05:53 12/05/23 06:58 Labs: Laboratory Results - last 24 hr 12/05/23 12/05/23 06:58 07:09 VBG pH 7.48 H VBG pCO2 60 VBG pO2 44 VBG HCO3 44 H VBG O2 Saturation 88.0 VBG Base Excess 18.6 Anion Gap 15 Estim Creat Clear Calc 55.8 Estimated GFR 45 Random Glucose 131 H Calcium 9.9 Magnesium 1.6 B-Natriuretic Peptide 358 H Assessment and Plan (1) Atrial fibrillation with RVR: Status: Acute Plan d5 63yo F with NSCLC s/p LITA + RUL wedge resections with 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 currently on palliative chemotherapy, hx breast CA, HCV, depression, HTN, COPD on 3L home O2, opioid dependence, pAF not previous ly on AC due to anemia/thrombocytopenia presenting with dyspnea, admitted for AF/RVR AF/RVR - weaned from diltiazem drip, diltiazem CD dose increased from 180 to 300 mg/d; continue metoprolol succinate 100 mg daily acute/chronic HFpEF - got 1 dose of IV furosemide yesterday, will give 40 mg bid today; monitor I/O, lytes, BNP hypoK - replete PO, recheck level in AM hypoMg - repleted acute-chronic hypoxic resp failure - on 4L now; wean to home dose of 3L; continue Trelegy, ipratropium/levalbuterol, theophylline HLD - statin opioid dependence - Suboxone lung CA - on chemotherapy; f/u with Dr Samuels mood disorder - paroxetine VTE ppx - apixaban dispo - eventual home; will need PT eval prior to discharge In my clinical judgment, the patient requires continued inpatient hospitalization for the following reasons: diuresis Total time managing care of this patient today: 45 minutes. Quality Stroke Does the patient have a stroke diagnosis?: No VTE Prior VTE?: No VTE Risk Level:: Medical - moderate - high VTE Device Contraindication: Treatment Not Indicated VTE Drug Contraindication: N/A - Med Ordered
[2023-12-05] MEDS: Furosemide 40 MG/4 ML VIAL IVPUSH ×2 (10:03→16:40)
[2023-12-05 11:21] VITALS: PULSE 97; RESP 20; TEMP 36.4; O2SAT 94
--- NOTE | 2023-12-05 13:03 | PM.PNCARD ---
Subjective Subjective Date of Service: 12/05/23 Interval history: Seen examined at bedside. Little better with diuresis. Physical Exam Vital Signs: Last Vital Signs Temp 97.6 F 12/05/23 11:21 Pulse 97 12/05/23 11:21 Resp 20 12/05/23 11:21 BP 121/80 12/05/23 09:29 Pulse Ox 94 12/05/23 11:21 O2 Del Method Nasal Cannula 12/05/23 11:21 O2 Flow Rate 4 12/05/23 11:21 Oxygen Flow Rate 2 12/01/23 06:39 BMI result Body Mass Index 32.3 GENERAL APPEARANCE: in no acute distress, pleasant. NECK: no carotid bruit, mild jugular venous distention. SKIN: no suspicious lesions, warm and dry. HEART: no murmurs, irregular rate and rhythm. LUNGS: Diminished breath sounds bilaterally. ABDOMEN: soft, nontender. EXTREMITIES: no edema. PERIPHERAL PULSES: equal. NEUROLOGIC: No gross deficits, AAO X 3 Objective Labs and Meds 12/04/23 05:53 12/05/23 06:58 Lab results: Laboratory Results - last 24 hr 12/05/23 12/05/23 06:58 07:09 VBG pH 7.48 H VBG pCO2 60 VBG pO2 44 VBG HCO3 44 H VBG O2 Saturation 88.0 VBG Base Excess 18.6 Sodium 140 Potassium 3.2 L Chloride 93 L Carbon Dioxide 35 H Anion Gap 15 BUN 23 H Creatinine 1.21 Estim Creat Clear Calc 55.8 Estimated GFR 45 Random Glucose 131 H Calcium 9.9 Magnesium 1.6 B-Natriuretic Peptide 358 H Progress Note: A&P Assessment and plan (1) Atrial fibrillation with RVR: Status: Acute (2) Acute diastolic (congestive) heart failure: Status: Acute Plan Pleasant 63-year-old female with lung cancer on chemotherapy presenting with AFib with RVR and shortness of breath. We have opted for a rate control strategy currently. She is on metoprolol and Cardizem. Titrate the Cardizem to 240 mg daily. On anticoagulation with apixaban 5 mg twice a day. She has advanced lung issues due to lung cancer and COPD. She has shortness of breath the baseline but was feeling that she is more short of breath than usual. We started on diuretics and she is improving somewhat. I would continue IV diuretics today and reassess tomorrow. Aim will be that if she stabilizes with a strategy then home with rate control strategy and apixaban and maybe consider cardioversion in 4-6 weeks. I do not think she will tolerate [place] well with her advanced lung issues. Thank you for allowing me to participate in the care of your patient. Please feel free to contact me if you have any questions. Time Spent With Patient Time: Total time managing care of this patient today ____ minutes. Progress Note: Quality Stroke Does the patient have a stroke diagnosis?: No Procedures Date of Service Date of Service: 12/05/23
[2023-12-05 15:36] VITALS: BP 130/70; PULSE 90; RESP 20; TEMP 37.1; O2SAT 94
[2023-12-05 20:00] VITALS: BP 133/91; PULSE 98; RESP 18; TEMP 36; O2SAT 99
[2023-12-05] MEDS: Atorvastatin Calcium 10 MG TABLET PO (20:43)
[2023-12-05] MEDS: Acetaminophen 325 MG TABLET 650 MG PO (20:43)
[2023-12-05] MEDS: Benzonatate 100 MG CAPSULE PO (20:43)
[2023-12-05] MEDS: Docusate Sodium 100 MG CAPSULE PO (20:43)
[2023-12-05 23:32] VITALS: BP 131/85; PULSE 71; RESP 18; TEMP 35.5; O2SAT 99
[2023-12-06] VITALS (8 sets, daily range): BP systolic 98–134; BP diastolic 67–84; PULSE 63–92; RESP 18–20; TEMP 34.3–36.4; O2SAT 97–100
[2023-12-06] MEDS: guaiFENesin DM 100/10/5 ML 5 ML SYRUP PO ×5 (00:23→22:28)
[2023-12-06] MEDS: Levothyroxine Sodium 25 MCG TABLET PO (05:31)
[2023-12-06] MEDS: Omeprazole 20 MG CAPSULE.DR PO (05:32)
[2023-12-06 07:03] LABS: B Type Natriuretic Peptide 241 pg/mL (<100)
[2023-12-06 07:23] LABS: Blood Urea Nitrogen 23 mg/dL (9-16); Calcium 9.8 mg/dL (8.4-10.2); Creatinine Clr Calc Pharmacy 44.7; Estimated Glomerular Filt Rate 35; Glucose Random 134 mg/dL (60-115); Magnesium 1.7 mg/dL (1.6-2.6)
[2023-12-06 07:27] LABS: Anion Gap 17 (12-20); Carbon Dioxide 38 mmol/L (22-29); Chloride 90 mmol/L (96-108); Sodium 142 mmol/L (135-145)
[2023-12-06] MEDS: Theophylline Anhydrous ER 400 MG TAB.ER.24H PO (08:52)
[2023-12-06] MEDS: Folic Acid 1 MG TABLET PO (08:54)
[2023-12-06] MEDS: Metoprolol Succinate ER 100 MG TAB.ER.24H PO (08:54)
[2023-12-06] MEDS: PARoxetine HCL 40 MG TABLET PO ×2 (08:54→22:13)
[2023-12-06] MEDS: dilTIAZem HCL CD 300 MG CAP.ER.24H PO (08:54)
[2023-12-06] MEDS: Apixaban 5 MG TABLET PO ×2 (08:55→22:13)
[2023-12-06] MEDS: Potassium Chloride ER 20 MEQ TAB.ER.PRT PO (08:55)
[2023-12-06] MEDS: Potassium Chloride ER 20 MEQ TAB.ER.PRT 40 MEQ PO (08:55)
[2023-12-06] MEDS: Buprenorphine/Naloxone 2/0.5mg FILM 0.5 FILM SUBLINGUAL (08:56)
[2023-12-06] MEDS: 0.9 % Sodium Chloride Flush 3 ML SYRINGE IVFLUSH ×2 (09:05→17:31)
--- NOTE | 2023-12-06 11:26 | PM.PNCARD ---
Subjective Subjective Date of Service: 12/06/23 Principal diagnosis: CHF, atrial fibrillation. Interval history: Patient with continued atrial fibrillation with better rate control on current dual therapy with metoprolol and Cardizem. Heart rate 90s and 100s. Still requiring high levels of oxygen. Intake and output chart is poorly maintained. BNP is downgraded although creatinine is slightly elevated although she has very labile creatinine is noted in the chart. Denies any palpitations. Denies any chest pain Review of Systems Constitutional: Reports no additional constitutional complaints Cardiovascular: Denies chest pain, Denies leg edema, Denies lightheadedness, Denies Loss of Consciousness, Denies palpitations and Reports dyspnea on exertion Respiratory: Reports dyspnea on exertion Gastrointestinal: Reports no additional gastrointestinal complaints Musculoskeletal: Reports no additional musculoskeletal complaints Psychiatric: Reports no additional psychiatric complaints Endocrine: Denies palpitations Physical Exam Vital Signs: Last Vital Signs Temp 97.1 F 12/06/23 08:00 Pulse 92 12/06/23 08:00 Resp 20 12/06/23 08:00 BP 100/73 12/06/23 08:00 Pulse Ox 97 12/06/23 08:00 O2 Del Method Nasal Cannula 12/06/23 08:00 O2 Flow Rate 4 12/06/23 08:00 Oxygen Flow Rate 2 12/01/23 06:39 BMI result Body Mass Index 32.3 GENERAL APPEARANCE: in no acute distress, pleasant. NECK: no carotid bruit, mild jugular venous distention. SKIN: no suspicious lesions, warm and dry. HEART: no murmurs, irregular rate and rhythm. LUNGS: Diminished breath sounds bilaterally. ABDOMEN: soft, nontender. EXTREMITIES: no edema. PERIPHERAL PULSES: equal. NEUROLOGIC: No gross deficits, AAO X 3 Objective Labs and Meds 12/04/23 05:53 12/06/23 06:17 Lab results: Laboratory Results - last 24 hr 12/06/23 06:17 Sodium 142 Potassium 3.0 L Chloride 90 L Carbon Dioxide 38 H Anion Gap 17 BUN 23 H Creatinine 1.51 H Estim Creat Clear Calc 44.7 Estimated GFR 35 Random Glucose 134 H Calcium 9.8 Magnesium 1.7 B-Natriuretic Peptide 241 H Progress Note: A&P Assessment and plan (1) Atrial fibrillation with RVR: Status: Acute Assessment and Plan: Atrial fibrillation rapid ventricular response better rate control on dual therapy. Continue the same. Continue full oral anticoagulation with apixaban. Switch inhaler therapy to Xopenex if possible. Overall prognosis is guarded. Eventually will pursue rhythm control approach. Set up for follow-up pain 2-[address] Roberts (2) Acute diastolic (congestive) heart failure: Status: Acute Assessment and Plan: Heart failure with preserved ejection fraction in the setting of atrial fibrillation. Most likely heart failure related to new onset atrial fibrillation with the last couple of months. She also significantly advanced chronic respiratory failure related to bilateral lung related surgery as well as COPD. Complete smoking cessation advised. Continue aggressive pulmonary treatment. Would switch her Lasix to 40 mg IV daily. Strict intake and output chart needs to be pursued. Continue monitor renal function tomorrow. Replace potassium. Can add spironolactone 12.5 mg to regimen. Will sign of the case and follow if need be. Thank you for allowing me to partake in his care Time Spent With Patient Time: Total time managing care of this patient today ____ minutes. Progress Note: Quality Stroke Does the patient have a stroke diagnosis?: No Procedures Date of Service Date of Service: 12/06/23
--- NOTE | 2023-12-06 11:40 | MHC.CM.PN ---
Patient is not yet medically cleared for dc (Afib & 4LO2); Home/resume services is the goal and CM will continue to follow.
--- NOTE | 2023-12-06 14:34 | HO.PM.IMPN ---
Subjective Subjective Date of Service: 12/06/23 Interval History: seen and examined improving slowly rates largely controlled sob improving Physical Exam Vital Signs: Vital Signs: Last Vital Signs Temp 97.5 F 12/06/23 12:00 Pulse 92 12/06/23 12:08 Resp 20 12/06/23 12:00 BP 100/73 12/06/23 12:08 Pulse Ox 97 12/06/23 12:08 O2 Del Method Room Air 12/06/23 12:00 O2 Flow Rate 4 12/06/23 12:00 Oxygen Flow Rate 2 12/01/23 06:39 BMI result Body Mass Index 32.3 Const: Other: General - no acute distress, appears comfortable Cardiovascular - IRR Lungs - diminished sounds Abdomen - soft, nontender, no rebound or guarding Extremities - no edema bilaterally Neuro - awake and alert, no focal deficits Objective Data Active Medications Acetaminophen (Acetaminophen 325 Mg Tablet) 650 mg PO Q6H PRN PRN Reason: Pain, Mild (Pain Scale 1-3), fever or headache Last Admin: 12/05/23 20:43 Dose: 650 mg Documented By: CAMPBELL Apixaban (Apixaban 5 Mg Tablet) 5 mg PO BID [facility] Last Admin: 12/06/23 08:55 Dose: 5 mg Documented By: SELWYN Atorvastatin Calcium (Atorvastatin Calcium 10 Mg Tablet) 10 mg PO BEDTIME [facility] Last Admin: 12/05/23 20:43 Dose: 10 mg Documented By: CAMPBELL Benzonatate (Benzonatate 100 Mg Capsule) 100 mg PO TID PRN PRN Reason: Cough Last Admin: 12/05/23 20:43 Dose: 100 mg Documented By: CAMPBELL Buprenorphine/Naloxone (Buprenorphine/Naloxone 2/0.5mg Film) 0.5 film SUBLINGUAL DAILY [facility] Last Admin: 12/06/23 08:56 Dose: 0.5 film Documented By: SELWYN Calcium Carbonate (Calcium Carbonate 750 Mg Tab.Chew) 750 mg PO Q4H PRN PRN Reason: Heartburn Levalbuterol HCl 1.25 mg/ (Ipratropium [place] 0.5 mg) 0 mg INHALE RQ4H WHILE AWAKE PRN PRN Reason: Shortness of Breath/Wheezing Last Admin: 12/03/23 01:42 Dose: 5 dose Documented By: CHRISTOPHER Diltiazem HCl (Diltiazem Hcl Cd 300 Mg Cap.Er.24h) 300 mg PO DAILY [facility]; Protocol Last Admin: 12/06/23 08:54 Dose: 300 mg Documented By: SELWYN Docusate Sodium (Docusate Sodium 100 Mg Capsule) 100 mg PO BEDTIME PRN PRN Reason: stool softener Last Admin: 12/05/23 20:43 Dose: 100 mg Documented By: CAMPBELL Folic Acid (Folic Acid 1 Mg Tablet) 1 mg PO DAILY [facility] Last Admin: 12/06/23 08:54 Dose: 1 mg Documented By: SELWYN Furosemide (Furosemide 40 Mg/4 Ml Vial) 40 mg IVPUSH ONCE ONE; Protocol Stop: 12/06/23 16:01 Furosemide (Furosemide 40 Mg Tablet) 40 mg PO DAILY [facility]; Protocol Guaifenesin/Dextromethorphan (Guaifenesin Dm 100/10/5 Ml 5 Ml Syrup) 5 ml PO Q6H [facility] Last Admin: 12/06/23 11:34 Dose: 5 ml Documented By: SELWYN Levothyroxine Sodium (Levothyroxine Sodium 25 Mcg Tablet) 25 mcg PO DAILY@0600 [facility] Last Admin: 12/06/23 05:31 Dose: 25 mcg Documented By: CAMPBELL Magnesium Hydroxide (Milk Of Magnesia 30 Ml Oral.Susp) 30 ml PO DAILY PRN PRN Reason: Constipation Melatonin (Melatonin 3 Mg Tablet) 6 mg PO BEDTIME PRN PRN Reason: Insomnia Metoprolol Succinate (Metoprolol Succinate Er 100 Mg Tab.Er.24h) 100 mg PO DAILY [facility]; Protocol Last Admin: 12/06/23 08:54 Dose: 100 mg Documented By: SELWYN Nicotine (Nicotine 21 Mg Patch.Td24) 21 mg TRANSDERMA DAILY [facility] Last Admin: 12/06/23 09:05 Dose: Not Given Documented By: SELWYN Non-Admin Reason: Patient Refused Omeprazole (Omeprazole 20 Mg Capsule.Dr) 20 mg PO DAILY@0630 [facility] Last Admin: 12/06/23 05:32 Dose: 20 mg Documented By: CAMPBELL Ondansetron HCl (Ondansetron Hcl 4 Mg/2 Ml Vial) 4 mg IVPUSH Q8H PRN PRN Reason: Nausea and Vomiting Paroxetine HCl (Paroxetine Hcl 40 Mg Tablet) 40 mg PO BID [facility] Last Admin: 12/06/23 08:54 Dose: 40 mg Documented By: SELWYN Potassium Chloride (Potassium Chloride Er 20 Meq Tab.Er.Prt) 20 meq PO DAILY [facility] Last Admin: 12/06/23 08:55 Dose: 20 meq Documented By: SELWYN Sodium Chloride (0.9 % Sodium Chloride Flush 3 Ml Syringe) 3 ml IVFLUSH QSHIFT [facility] Last Admin: 12/06/23 09:05 Dose: 3 ml Documented By: SELWYN Spironolactone (Spironolactone 25 Mg Tablet) 12.5 mg PO DAILY [facility]; Protocol Theophylline (Theophylline Anhydrous Er 400 Mg Tab.Er.24h) 400 mg PO DAILY [facility] Last Admin: 12/06/23 08:52 Dose: 400 mg Documented By: SELWYN Labs 12/04/23 05:53 12/06/23 06:17 Labs: Laboratory Results - last 24 hr 12/06/23 06:17 Anion Gap 17 Estim Creat Clear Calc 44.7 Estimated GFR 35 Random Glucose 134 H Calcium 9.8 Magnesium 1.7 B-Natriuretic Peptide 241 H Microbiology Microbiology Results: Microbiology 12/01/23 10:08 Blood Culture - Final Blood - Venous No growth after 5 days. 12/01/23 10:08 - Final Blood - Venous No growth after 5 days. Assessment and Plan (1) Atrial fibrillation with RVR: Status: Acute Plan d5 63yo F with NSCLC s/p LITA + RUL wedge resections with 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 currently on palliative chemotherapy, hx breast CA, HCV, depression, HTN, COPD on 3L home O2, opioid dependence, pAF not previous ly on AC due to anemia/thrombocytopenia presenting with dyspnea, admitted for AF/RVR AF/RVR - weaned from diltiazem drip, diltiazem CD dose increased from 180 to 300 mg/d; continue metoprolol succinate 100 mg daily acute/chronic HFpEF will continue iv lasix today -- with likey transition to oral tomorrow hypoK - replete PO, recheck level in AM hypoMg - repleted acute-chronic hypoxic resp failure - on 4L now; wean to home dose of 3L; continue Trelegy, ipratropium/levalbuterol, theophylline HLD - statin opioid dependence - Suboxone lung CA - on chemotherapy; f/u with Dr Samuels mood disorder - paroxetine VTE ppx - apixaban dispo - eventual home; will need PT eval prior to discharge In my clinical judgment, the patient requires continued inpatient hospitalization for the following reasons: diuresis Total time managing care of this patient today: 45 minutes. Quality Stroke Does the patient have a stroke diagnosis?: No VTE Prior VTE?: No VTE Risk Level:: Medical - moderate - high VTE Device Contraindication: Treatment Not Indicated VTE Drug Contraindication: N/A - Med Ordered
[2023-12-06] MEDS: Furosemide 40 MG/4 ML VIAL IVPUSH (17:31)
[2023-12-06] MEDS: Nystatin Powder 15 GM BOTTLE 1 APPL TOPICAL ×2 (17:50→22:13)
[2023-12-06] MEDS: Melatonin 3 MG TABLET 6 MG PO (22:13)
[2023-12-06] MEDS: Atorvastatin Calcium 10 MG TABLET PO (22:13)
[2023-12-07] VITALS (8 sets, daily range): BP systolic 94–122; BP diastolic 67–90; PULSE 82–98; RESP 14–20; TEMP 36.1–36.7; O2SAT 96–99
[2023-12-07] MEDS: Levothyroxine Sodium 25 MCG TABLET PO (06:28)
[2023-12-07] MEDS: Omeprazole 20 MG CAPSULE.DR PO (06:28)
[2023-12-07] MEDS: guaiFENesin DM 100/10/5 ML 5 ML SYRUP PO ×3 (06:28→16:12)
[2023-12-07 06:58] LABS: Anion Gap 16 (12-20); Blood Urea Nitrogen 27 mg/dL (9-16); Calcium 9.6 mg/dL (8.4-10.2); Carbon Dioxide 35 mmol/L (22-29); Chloride 90 mmol/L (96-108); Creatinine Clr Calc Pharmacy 46.6; Estimated Glomerular Filt Rate 36; Glucose Random 126 mg/dL (60-115); Potassium 3.4 mmol/L (3.3-5.1); Sodium 138 mmol/L (135-145)
[2023-12-07] MEDS: dilTIAZem HCL CD 300 MG CAP.ER.24H PO (08:43)
[2023-12-07] MEDS: PARoxetine HCL 40 MG TABLET PO ×2 (08:43→20:11)
[2023-12-07] MEDS: Buprenorphine/Naloxone 2/0.5mg FILM 0.5 FILM SUBLINGUAL (08:43)
[2023-12-07] MEDS: Folic Acid 1 MG TABLET PO (08:43)
[2023-12-07] MEDS: Metoprolol Succinate ER 100 MG TAB.ER.24H PO (08:44)
[2023-12-07] MEDS: Theophylline Anhydrous ER 400 MG TAB.ER.24H PO (08:44)
[2023-12-07] MEDS: Apixaban 5 MG TABLET PO (08:44)
[2023-12-07] MEDS: Potassium Chloride ER 20 MEQ TAB.ER.PRT PO (08:44)
[2023-12-07] MEDS: Nystatin Powder 15 GM BOTTLE 1 APPL TOPICAL (08:44)
[2023-12-07] MEDS: 0.9 % Sodium Chloride Flush 3 ML SYRINGE IVFLUSH ×3 (08:44→20:11)
--- NOTE | 2023-12-07 09:58 | PM.PNCARD ---
Subjective Subjective Date of Service: 12/07/23 Principal diagnosis: CHF, atrial fibrillation. Interval history: Elida says she did not sleep overnight and was feeling tired. In the morning a blood pressure was low-salt. However repeat blood pressure is within normal limits. Heart rates adequately controlled. Shortness of breath is improved. Overnight still diuresed rather than 1 L. creatinine has improved Review of Systems Review of Systems Yes all other systems are reviewed and are negative Physical Exam Vital Signs: Last Vital Signs Temp 97.2 F 12/07/23 07:53 Pulse 83 12/07/23 08:44 Resp 18 12/07/23 07:53 BP 112/70 12/07/23 08:44 Pulse Ox 98 12/07/23 07:53 O2 Del Method Nasal Cannula 12/07/23 07:53 O2 Flow Rate 3 12/07/23 07:53 Oxygen Flow Rate 2 12/01/23 06:39 BMI result Body Mass Index 32.3 GENERAL APPEARANCE: in no acute distress, pleasant. NECK: no carotid bruit, mild jugular venous distention. SKIN: no suspicious lesions, warm and dry. HEART: no murmurs, irregular rate and rhythm. LUNGS: Diminished breath sounds bilaterally. ABDOMEN: soft, nontender. EXTREMITIES: no edema. PERIPHERAL PULSES: equal. NEUROLOGIC: No gross deficits, AAO X 3 Objective Labs and Meds 12/04/23 05:53 12/07/23 06:27 Lab results: Laboratory Results - last 24 hr 12/07/23 06:27 Hold Purple Top SEE NOTE Sodium 138 Potassium 3.4 Chloride 90 L Carbon Dioxide 35 H Anion Gap 16 BUN 27 H Creatinine 1.45 H Estim Creat Clear Calc 46.6 Estimated GFR 36 Random Glucose 126 H Calcium 9.6 Progress Note: A&P Assessment and plan (1) Atrial fibrillation with RVR: Status: Acute Assessment and Plan: Atrial fibrillation with controlled ventricular response. Continue current metoprolol therapy. Will need to discuss rhythm control approach after adequately orally anticoagulated for 3-4 weeks. Will set up for follow-up for the same. (2) Acute diastolic (congestive) heart failure: Status: Acute Assessment and Plan: Heart failure along with underlying severe COPD as well as lung cancer. Heart failure is much improved. Continue and transition to p.o. Lasix at 40 mg daily. Heart failure education provided. Patient can be discharged from cardiac perspective. Will follow-up as outpatient Time Spent With Patient Time: Total time managing care of this patient today ____ minutes. Progress Note: Quality Stroke Does the patient have a stroke diagnosis?: No Procedures Date of Service Date of Service: 12/07/23
--- NOTE | 2023-12-07 13:00 | HO.PM.IMPN ---
Subjective Subjective Date of Service: 12/07/23 Interval History: seen and examined this AM she reported no complaints later told by RN that the patient is having minor rectal bleeding Review of Systems Negative except HPI/interval history. Physical Exam Vital Signs: Vital Signs: Last Vital Signs Temp 98.0 F 12/07/23 12:00 Pulse 98 12/07/23 12:00 Resp 20 12/07/23 12:00 BP 119/84 12/07/23 12:00 Pulse Ox 98 12/07/23 12:00 O2 Del Method Nasal Cannula 12/07/23 12:00 O2 Flow Rate 3 12/07/23 12:00 Oxygen Flow Rate 2 12/01/23 06:39 BMI result Body Mass Index 32.3 Const: Other: General - no acute distress, appears comfortable Cardiovascular - IRR Lungs - diminished sounds Abdomen - soft, nontender, no rebound or guarding Extremities - no edema bilaterally Neuro - awake and alert, no focal deficits Objective Data Active Medications Acetaminophen (Acetaminophen 325 Mg Tablet) 650 mg PO Q6H PRN PRN Reason: Pain, Mild (Pain Scale 1-3), fever or headache Last Admin: 12/05/23 20:43 Dose: 650 mg Documented By: CAMPBELL Apixaban (Apixaban 5 Mg Tablet) 5 mg PO BID [facility] Last Admin: 12/07/23 08:44 Dose: 5 mg Documented By: PEDRO Atorvastatin Calcium (Atorvastatin Calcium 10 Mg Tablet) 10 mg PO BEDTIME [facility] Last Admin: 12/06/23 22:13 Dose: 10 mg Documented By: LAFLAMC Benzonatate (Benzonatate 100 Mg Capsule) 100 mg PO TID PRN PRN Reason: Cough Last Admin: 12/05/23 20:43 Dose: 100 mg Documented By: CAMPBELL Buprenorphine/Naloxone (Buprenorphine/Naloxone 2/0.5mg Film) 0.5 film SUBLINGUAL DAILY [facility] Last Admin: 12/07/23 08:43 Dose: 0.5 film Documented By: PEDRO Calcium Carbonate (Calcium Carbonate 750 Mg Tab.Chew) 750 mg PO Q4H PRN PRN Reason: Heartburn Levalbuterol HCl 1.25 mg/ (Ipratropium [place] 0.5 mg) 0 mg INHALE RQ4H WHILE AWAKE PRN PRN Reason: Shortness of Breath/Wheezing Last Admin: 12/03/23 01:42 Dose: 5 dose Documented By: CHRISTOPHER Diltiazem HCl (Diltiazem Hcl Cd 300 Mg Cap.Er.24h) 300 mg PO DAILY [facility]; Protocol Last Admin: 12/07/23 08:43 Dose: 300 mg Documented By: PEDRO Docusate Sodium (Docusate Sodium 100 Mg Capsule) 100 mg PO BEDTIME PRN PRN Reason: stool softener Last Admin: 12/05/23 20:43 Dose: 100 mg Documented By: ANUPAMA-RIVLINETTE Folic Acid (Folic Acid 1 Mg Tablet) 1 mg PO DAILY [facility] Last Admin: 12/07/23 08:43 Dose: 1 mg Documented By: PEDRO Guaifenesin/Dextromethorphan (Guaifenesin Dm 100/10/5 Ml 5 Ml Syrup) 5 ml PO Q6H [facility] Last Admin: 12/07/23 11:45 Dose: 5 ml Documented By: PEDRO Levothyroxine Sodium (Levothyroxine Sodium 25 Mcg Tablet) 25 mcg PO DAILY@0600 [facility] Last Admin: 12/07/23 06:28 Dose: 25 mcg Documented By: VARINDER Magnesium Hydroxide (Milk Of Magnesia 30 Ml Oral.Susp) 30 ml PO DAILY PRN PRN Reason: Constipation Melatonin (Melatonin 3 Mg Tablet) 6 mg PO BEDTIME PRN PRN Reason: Insomnia Last Admin: 12/06/23 22:13 Dose: 6 mg Documented By: VARINDER Metoprolol Succinate (Metoprolol Succinate Er 100 Mg Tab.Er.24h) 100 mg PO DAILY [facility]; Protocol Last Admin: 12/07/23 08:44 Dose: 100 mg Documented By: PEDRO Nicotine (Nicotine 21 Mg Patch.Td24) 21 mg TRANSDERMA DAILY [facility] Last Admin: 12/07/23 08:43 Dose: Not Given Documented By: PEDRO Non-Admin Reason: Patient Refused Nystatin (Nystatin Powder 15 Gm Bottle) 1 appl TOPICAL BID [facility]; Protocol Last Admin: 12/07/23 08:44 Dose: 1 appl Documented By: PEDRO Omeprazole (Omeprazole 20 Mg Capsule.Dr) 20 mg PO DAILY@0630 [facility] Last Admin: 12/07/23 06:28 Dose: 20 mg Documented By: VARINDER Ondansetron HCl (Ondansetron Hcl 4 Mg/2 Ml Vial) 4 mg IVPUSH Q8H PRN PRN Reason: Nausea and Vomiting Paroxetine HCl (Paroxetine Hcl 40 Mg Tablet) 40 mg PO BID [facility] Last Admin: 12/07/23 08:43 Dose: 40 mg Documented By: PEDRO Potassium Chloride (Potassium Chloride Er 20 Meq Tab.Er.Prt) 20 meq PO DAILY [facility] Last Admin: 12/07/23 08:44 Dose: 20 meq Documented By: PEDRO Sodium Chloride (0.9 % Sodium Chloride Flush 3 Ml Syringe) 3 ml IVFLUSH QSHIFT [facility] Last Admin: 12/07/23 08:44 Dose: 3 ml Documented By: PEDRO Theophylline (Theophylline Anhydrous Er 400 Mg Tab.Er.24h) 400 mg PO DAILY [facility] Last Admin: 12/07/23 08:44 Dose: 400 mg Documented By: PEDRO Labs 12/04/23 05:53 12/07/23 06:27 Labs: Laboratory Results - last 24 hr 12/07/23 06:27 Hold Purple Top SEE NOTE Anion Gap 16 Estim Creat Clear Calc 46.6 Estimated GFR 36 Random Glucose 126 H Calcium 9.6 Microbiology Microbiology Results: Microbiology 12/01/23 10:08 Blood Culture - Final Blood - Venous No growth after 5 days. 12/01/23 10:08 - Final Blood - Venous No growth after 5 days. Assessment and Plan (1) Atrial fibrillation with RVR: Status: Acute Plan 63yo F with NSCLC s/p LITA + RUL wedge resections with 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 currently on palliative chemotherapy, hx breast CA, HCV, depression, HTN, COPD on 3L home O2, opioid dependence, pAF not previous ly on AC due to anemia/thrombocytopenia presenting with dyspnea, admitted for AF/RVR hematochezia pt reports history of hemorroids, will hold eliquis and re-check h/h -- if continues to bleed/has significant anemia, will add GI consult AF/RVR - weaned from diltiazem drip, diltiazem CD dose increased from 180 to 300 mg/d; continue metoprolol succinate 100 mg daily eliquis started this admit -- but now with some rectal bleeding -- will hold acute/chronic HFpEF improved, transitioned to oral lasix hypoK resolved hypoMg - repleted acute-chronic hypoxic resp failure acute resolved, now baseline 3L; continue Trelegy, ipratropium/levalbuterol, theophylline HLD - statin opioid dependence - Suboxone lung CA - on chemotherapy; f/u with Dr Samuels mood disorder - paroxetine VTE ppx - apixaban dispo - eventual home; will need PT eval prior to discharge In my clinical judgment, the patient requires continued inpatient hospitalization for the following reasons: diuresis Total time managing care of this patient today: 45 minutes. Quality Stroke Does the patient have a stroke diagnosis?: No VTE Prior VTE?: No VTE Risk Level:: Medical - moderate - high VTE Device Contraindication: Treatment Not Indicated VTE Drug Contraindication: N/A - Med Ordered
[2023-12-07 13:22] LABS: Hematocrit 31.4 % (37.0-47.0); Hemoglobin 10.5 g/dl (12.0-16.0); Mean Corpuscular HGB Conc 33.4 g/dl (31.0-35.0); Mean Corpuscular Volume 89.7 fL (80.0-98.0); Mean Platelet Volume 9.4 fL (9.4-12.3); Platelet Count 209 X10*3/uL (160-400); Red Cell Distribution Width 15.7 % (11.0-16.0); White Blood Count 4.4 X10*3/uL (4.8-10.8)
[2023-12-07] MEDS: Atorvastatin Calcium 10 MG TABLET PO (20:09)
[2023-12-07] MEDS: Acetaminophen 325 MG TABLET 650 MG PO (20:10)
[2023-12-07] MEDS: ondansetron HCL 4 MG/2 ML VIAL IVPUSH (23:16)
--- NOTE | 2023-12-07 23:27 | PM.EVENT ---
Event Note Date of Service: 12/07/23 Event Note: Nurse reported large BM with blood and clots. Eliquis is on hold. Will keep patient npo and consult GI. Closely monitor h&h Time Spent With Patient Time: Total time managing care of this patient today ____ minutes.
[2023-12-08 04:00] VITALS: BP 106/68; PULSE 96; RESP 20; TEMP 37; O2SAT 96
[2023-12-08 06:28] LABS: Hematocrit 28.8 % (37.0-47.0); Hemoglobin 9.5 g/dl (12.0-16.0)
[2023-12-08 07:59] VITALS: BP 109/64; PULSE 98; RESP 20; TEMP 36.2; O2SAT 100
--- NOTE | 2023-12-08 09:13 | P.CNGI_ITS ---
History of Present Illness Data of Consult Service Date: 12/08/23 Requesting physician: Santa Barrientos Primary Care Provider: Daphne Rodriguez MD [facility] Reason for consult: GIB This is a 62-year-old female past medical history of metastatic non-small cell lung cancer status post wedge resection on chemo/immunotherapy, history of breast cancer, COPD on home O2, paroxysmal atrial fibrillation, who was admitted to the hospital on 11/30 for shortness of breath and found to have AFib with RVR. Course complicated by heart failure exacerbation with possible COPD overlap. She was started on Eliquis on 12/03 and yesterday morning was noted to have minor rectal bleeding. By the evening, she had progressive worsening and Eliquis was interrupted. Gastroenterology consultation has been requested for further evaluation. Patient herself, reports no abdominal pain, nausea, vomiting. She states she has had at least 5 episodes of rectal bleeding with and without stool. The stool itself was brown. In terms of her respiratory status, reports much better compared to a week ago. Back to baseline O2 needs. Has history of bleeding internal and external hemorrhoids in the past. 2018: Hemorrhoidectomy x2 columns by Dr. Bassett. 2015: Colonoscopy X3 polyps removed out of which 1 was tubular adenoma. Review of Systems 2 Review of Systems: Yes all other systems are reviewed and are negative PMFSH Past Medical History Medical History Pancytopenia New onset a-fib Cancer of upper lobe of left lung (~2020) Bilateral lung cancer Obesity History of hepatitis C Smoker Tubular adenoma of colon Pulmonary nodules History of breast cancer (~2006) Internal and external bleeding hemorrhoids Cancer of upper lobe of right lung (~2019) GERD (gastroesophageal reflux disease) Depression COPD (chronic obstructive pulmonary disease) HTN (hypertension) Family History Family History Mother History of lung cancer Brother History of lung cancer Maternal Grandmother Breast cancer in female Maternal Aunt Breast cancer in female Daughter Thyroid cancer Surgical History Surgical History History of lung surgery (~2020) History of anterior colporrhaphy (~2016) History of tubal ligation History of lumpectomy of right breast (~2006) History of colonoscopy (~2014) History of hemorrhoidectomy (~2019) History of back surgery (~2011) History of lobectomy of lung (~2019) Social History Social History Household Members: Significant Other Household Members Other:: 2 Housing: House Are you a primary medicare sales executive to a significant other at home: No Do you presently have visiting nurse or other home services: No Unable to assess alcohol history related to: Unable to respond Alcohol intake: never Comment: rings appropriately Patient Tobacco Use Status: Former Tobacco user Tobacco use type: Cigarette Cigarette Packs Per Day: 1 Cigarettes Per Day: 10 Years Smoked: 50 Second Hand Smoke Exposure: Yes Substance Use Type: Marijuana Advance Directives Date on File: 02/02/22 service: No Current occupational status: disabled Current occupational exposures/hazards: No Meds Allergies Allergy/AdvReac Type Severity Reaction Status Date / Time lisinopril [LISINOPRIL] Allergy Severe SWELLING- Verified 12/01/23 06:45 ANGIOEDEMA codeine [CODEINE] Allergy Intermediate VOMITING/HIVES, Verified 12/01/23 06:45 vomiting, hives Active Medications: Current Medications Acetaminophen (Acetaminophen 325 Mg Tablet) 650 mg PO Q6H PRN PRN Reason: Pain, Mild (Pain Scale 1-3), fever or headache Last Admin: 12/07/23 20:10 Dose: 650 mg Apixaban (Apixaban 5 Mg Tablet) 5 mg PO BID [facility] Last Admin: 12/07/23 08:44 Dose: 5 mg Atorvastatin Calcium (Atorvastatin Calcium 10 Mg Tablet) 10 mg PO BEDTIME [facility] Last Admin: 12/07/23 20:09 Dose: 10 mg Benzonatate (Benzonatate 100 Mg Capsule) 100 mg PO TID PRN PRN Reason: Cough Last Admin: 12/05/23 20:43 Dose: 100 mg Buprenorphine/Naloxone (Buprenorphine/Naloxone 2/0.5mg Film) 0.5 film SUBLINGUAL DAILY [facility] Last Admin: 12/07/23 08:43 Dose: 0.5 film Calcium Carbonate (Calcium Carbonate 750 Mg Tab.Chew) 750 mg PO Q4H PRN PRN Reason: Heartburn Levalbuterol HCl 1.25 mg/ (Ipratropium [place] 0.5 mg) 0 mg INHALE RQ4H WHILE AWAKE PRN PRN Reason: Shortness of Breath/Wheezing Last Admin: 12/03/23 01:42 Dose: 5 dose Diltiazem HCl (Diltiazem Hcl Cd 300 Mg Cap.Er.24h) 300 mg PO DAILY [facility]; Protocol Last Admin: 12/07/23 08:43 Dose: 300 mg Docusate Sodium (Docusate Sodium 100 Mg Capsule) 100 mg PO BEDTIME PRN PRN Reason: stool softener Last Admin: 12/05/23 20:43 Dose: 100 mg Folic Acid (Folic Acid 1 Mg Tablet) 1 mg PO DAILY [facility] Last Admin: 12/07/23 08:43 Dose: 1 mg Guaifenesin/Dextromethorphan (Guaifenesin Dm 100/10/5 Ml 5 Ml Syrup) 5 ml PO Q6H [facility] Last Admin: 12/08/23 05:35 Dose: Not Given Levothyroxine Sodium (Levothyroxine Sodium 25 Mcg Tablet) 25 mcg PO DAILY@0600 [facility] Last Admin: 12/08/23 05:35 Dose: Not Given Magnesium Hydroxide (Milk Of Magnesia 30 Ml Oral.Susp) 30 ml PO DAILY PRN PRN Reason: Constipation Melatonin (Melatonin 3 Mg Tablet) 6 mg PO BEDTIME PRN PRN Reason: Insomnia Last Admin: 12/06/23 22:13 Dose: 6 mg Metoprolol Succinate (Metoprolol Succinate Er 100 Mg Tab.Er.24h) 100 mg PO DAILY [facility]; Protocol Last Admin: 12/07/23 08:44 Dose: 100 mg Nicotine (Nicotine 21 Mg Patch.Td24) 21 mg TRANSDERMA DAILY [facility] Last Admin: 12/07/23 08:43 Dose: Not Given Nystatin (Nystatin Powder 15 Gm Bottle) 1 appl TOPICAL BID [facility]; Protocol Last Admin: 12/07/23 23:11 Dose: Not Given Omeprazole (Omeprazole 20 Mg Capsule.Dr) 20 mg PO DAILY@0630 [facility] Last Admin: 12/08/23 05:35 Dose: Not Given Ondansetron HCl (Ondansetron Hcl 4 Mg/2 Ml Vial) 4 mg IVPUSH Q8H PRN PRN Reason: Nausea and Vomiting Last Admin: 12/07/23 23:16 Dose: 4 mg Paroxetine HCl (Paroxetine Hcl 40 Mg Tablet) 40 mg PO BID [facility] Last Admin: 12/07/23 20:11 Dose: 40 mg Potassium Chloride (Potassium Chloride Er 20 Meq Tab.Er.Prt) 20 meq PO DAILY [facility] Last Admin: 12/07/23 08:44 Dose: 20 meq Sodium Chloride (0.9 % Sodium Chloride Flush 3 Ml Syringe) 3 ml IVFLUSH QSHIFT [facility] Last Admin: 12/07/23 20:11 Dose: 3 ml Theophylline (Theophylline Anhydrous Er 400 Mg Tab.Er.24h) 400 mg PO DAILY [facility] Last Admin: 12/07/23 08:44 Dose: 400 mg Home Medications ?Medication ?Instructions ?Recorded ?Confirmed ?Last Taken ?Type milnacipran 50 mg tablet (Savella) 50 mg PO BID 01/18/22 12/01/23 11/30/23 History omeprazole 20 mg capsule,delayed 20 mg PO DAILY@0630 01/18/22 12/01/23 11/30/23 History release paroxetine HCl 20 mg tablet 40 mg PO BID 01/18/22 12/01/23 11/30/23 History simvastatin 20 mg tablet 20 mg PO BEDTIME 02/17/22 12/01/23 11/30/23 History albuterol sulfate 90 mcg/actuation 2 puff inhalation Q6H PRN sob 06/22/23 12/01/23 07/09/23 History aerosol inhaler (Ventolin HFA) buprenorphine 2 mg-naloxone 0.5 mg 0.5 - 1 film sublingual DAILY 07/09/23 12/01/23 11/30/23 History sublingual film (Suboxone) docusate sodium 100 mg capsule 100 mg PO BEDTIME PRN stool 07/09/23 12/01/23 11/02/23 History softener umeclidinium 62.5 mcg-vilanterol 1 inh inhalation DAILY 07/09/23 12/01/23 11/30/23 History 25 mcg/actuation powdr for inhalation (Anoro Ellipta) ipratropium 0.5 mg-albuterol 3 mg 3 ml inhalation Q6H PRN wheezing 10/18/23 12/01/23 12/01/23 History (2.5 mg base)/3 mL nebulization soln levothyroxine 25 mcg tablet 25 mcg PO DAILY@0600 10/18/23 12/01/23 11/30/23 History (Synthroid) acetaminophen 500 mg tablet 500 mg PO DAILY PRN Pain 11/03/23 12/01/23 Unknown History Physical Exam 2 Vital Signs: Vital Signs: Last Vital Signs Temp 97.1 F 12/08/23 07:59 Pulse 98 12/08/23 07:59 Resp 20 12/08/23 07:59 BP 109/64 12/08/23 07:59 Pulse Ox 100 12/08/23 07:59 O2 Del Method Nasal Cannula 12/08/23 07:59 O2 Flow Rate 3 12/08/23 07:59 Oxygen Flow Rate 2 12/01/23 06:39 BMI result Body Mass Index 32.3 Seen at bedside Appears older than stated age No overt resp distress NC in place with 3L O2 Abd soft, nontender, nondistended Bedside commode with small volume of BRB Results Labs 12/08/23 05:53 12/07/23 06:27 Labs: Short CBC 12/07/23 12/08/23 Range/Units 13:12 05:53 WBC 4.4 L (4.8-10.8) X10*3/uL Hgb 10.5 L 9.5 L (12.0-16.0) g/dl Hct 31.4 L 28.8 L (37.0-47.0) % Plt Count 209 (160-400) X10*3/uL Microbiology Microbiology Results: Microbiology 12/01/23 10:08 Blood - Venous Blood Culture - Final No growth after 5 days. 12/01/23 10:08 Blood - Venous - Final No growth after 5 days. Assessment and Plan (1) Acute on chronic anemia: Status: Acute (2) Atrial fibrillation with RVR: Status: Acute (3) GI bleed: Status: Acute Plan Presentation consistent with rectal outlet bleeding. Would expect a much more dramatic drop in H/H with diverticular bleeding. Other ddx include AVMs, large polyp, mass etc. Plan: - Flex sig tmrw - CLD today, NPO past MN - x1 fleets enema tonight - x1 fleets enema tmrw AM before 1h before procedure Thank you for allowing me to participate in her care. Please do not hesitate to reach out for any questions or concerns. Procedures Date of Service Date of Service: 12/08/23
[2023-12-08] MEDS: Nystatin Powder 15 GM BOTTLE 1 APPL TOPICAL ×2 (09:38→19:56)
[2023-12-08] MEDS: dilTIAZem HCL CD 300 MG CAP.ER.24H PO (09:38)
[2023-12-08] MEDS: PARoxetine HCL 40 MG TABLET PO ×2 (09:38→19:53)
[2023-12-08] MEDS: Metoprolol Succinate ER 100 MG TAB.ER.24H PO (09:39)
[2023-12-08] MEDS: Levothyroxine Sodium 25 MCG TABLET PO (09:39)
[2023-12-08] MEDS: Potassium Chloride ER 20 MEQ TAB.ER.PRT PO (09:39)
[2023-12-08] MEDS: Folic Acid 1 MG TABLET PO (09:39)
[2023-12-08] MEDS: Omeprazole 20 MG CAPSULE.DR PO (09:39)
[2023-12-08] MEDS: Theophylline Anhydrous ER 400 MG TAB.ER.24H PO (09:39)
[2023-12-08] MEDS: 0.9 % Sodium Chloride Flush 3 ML SYRINGE IVFLUSH ×3 (09:42→19:56)
[2023-12-08] MEDS: Buprenorphine/Naloxone 2/0.5mg FILM 0.5 FILM SUBLINGUAL (09:42)
[2023-12-08 11:50] VITALS: BP 135/86; PULSE 78; RESP 20; TEMP 36.2; O2SAT 97
[2023-12-08] MEDS: guaiFENesin DM 100/10/5 ML 5 ML SYRUP PO ×3 (12:00→23:26)
--- NOTE | 2023-12-08 13:29 | MHC.CM.PN ---
EMR reviewed and per MD rounds, pt is not medically cleared for discharge today, and is pending a colonoscopy tomorrow.
--- NOTE | 2023-12-08 14:38 | P.PNIM_ITS ---
Subjective Subjective Date of Service: 12/08/23 Interval History: overnight had large BM with bloot + clots; apixaban held palpitations/dyspnea much improved; HR controlled Review of Systems Review of Systems: Yes all other systems are reviewed and are negative Physical Exam 2 Vital Signs: Vital Signs: Last Vital Signs Temp 97.1 F 12/08/23 11:50 Pulse 78 12/08/23 11:50 Resp 20 12/08/23 11:50 BP 135/86 12/08/23 11:50 Pulse Ox 97 12/08/23 11:50 O2 Del Method Nasal Cannula 12/08/23 11:50 O2 Flow Rate 3 12/08/23 11:50 Oxygen Flow Rate 2 12/01/23 06:39 BMI result Body Mass Index 32.3 Gen: in no acute distress HEENT: sclera anicteric, moist mucus membranes Neck: supple, JVD present Lungs: diminished throughout, no adventitious sounds Heart: irregular, no murmurs Abd: soft, non-tender, non-distended Ext: no edema Skin: warm/well-perfused Neuro: alert and oriented x3, no focal findings Psych: appropriate affect Objective Data Active Medications Acetaminophen (Acetaminophen 325 Mg Tablet) 650 mg PO Q6H PRN PRN Reason: Pain, Mild (Pain Scale 1-3), fever or headache Last Admin: 12/07/23 20:10 Dose: 650 mg Documented By: VARINDER Apixaban (Apixaban 5 Mg Tablet) 5 mg PO BID [facility] Last Admin: 12/07/23 08:44 Dose: 5 mg Documented By: PEDRO Atorvastatin Calcium (Atorvastatin Calcium 10 Mg Tablet) 10 mg PO BEDTIME [facility] Last Admin: 12/07/23 20:09 Dose: 10 mg Documented By: VARINDER Benzonatate (Benzonatate 100 Mg Capsule) 100 mg PO TID PRN PRN Reason: Cough Last Admin: 12/05/23 20:43 Dose: 100 mg Documented By: ANUPAMA-BINA Buprenorphine/Naloxone (Buprenorphine/Naloxone 2/0.5mg Film) 0.5 film SUBLINGUAL DAILY [facility] Last Admin: 12/08/23 09:42 Dose: 0.5 film Documented By: AMELIA Calcium Carbonate (Calcium Carbonate 750 Mg Tab.Chew) 750 mg PO Q4H PRN PRN Reason: Heartburn Levalbuterol HCl 1.25 mg/ (Ipratropium [place] 0.5 mg) 0 mg INHALE RQ4H WHILE AWAKE PRN PRN Reason: Shortness of Breath/Wheezing Last Admin: 12/03/23 01:42 Dose: 5 dose Documented By: CHRISTOPHER Diltiazem HCl (Diltiazem Hcl Cd 300 Mg Cap.Er.24h) 300 mg PO DAILY [facility]; Protocol Last Admin: 12/08/23 09:38 Dose: 300 mg Documented By: AMELIA Docusate Sodium (Docusate Sodium 100 Mg Capsule) 100 mg PO BEDTIME PRN PRN Reason: stool softener Last Admin: 12/05/23 20:43 Dose: 100 mg Documented By: ANUPAMA-RIVLINETTE Folic Acid (Folic Acid 1 Mg Tablet) 1 mg PO DAILY [facility] Last Admin: 12/08/23 09:39 Dose: 1 mg Documented By: AMELIA Guaifenesin/Dextromethorphan (Guaifenesin Dm 100/10/5 Ml 5 Ml Syrup) 5 ml PO Q6H [facility] Last Admin: 12/08/23 12:00 Dose: 5 ml Documented By: AMELIA Levothyroxine Sodium (Levothyroxine Sodium 25 Mcg Tablet) 25 mcg PO DAILY@0600 [facility] Last Admin: 12/08/23 09:39 Dose: 25 mcg Documented By: AMELIA Magnesium Hydroxide (Milk Of Magnesia 30 Ml Oral.Susp) 30 ml PO DAILY PRN PRN Reason: Constipation Melatonin (Melatonin 3 Mg Tablet) 6 mg PO BEDTIME PRN PRN Reason: Insomnia Last Admin: 12/06/23 22:13 Dose: 6 mg Documented By: VARINDER Metoprolol Succinate (Metoprolol Succinate Er 100 Mg Tab.Er.24h) 100 mg PO DAILY [facility]; Protocol Last Admin: 12/08/23 09:39 Dose: 100 mg Documented By: AMELIA Nicotine (Nicotine 21 Mg Patch.Td24) 21 mg TRANSDERMA DAILY [facility] Last Admin: 12/08/23 09:38 Dose: Not Given Documented By: AMELIA Non-Admin Reason: Patient Refused Nystatin (Nystatin Powder 15 Gm Bottle) 1 appl TOPICAL BID [facility]; Protocol Last Admin: 12/08/23 09:38 Dose: 1 appl Documented By: AMELIA Omeprazole (Omeprazole 20 Mg Capsule.) 20 mg PO DAILY@0630 [facility] Last Admin: 12/08/23 09:39 Dose: 20 mg Documented By: AMELIA Ondansetron HCl (Ondansetron Hcl 4 Mg/2 Ml Vial) 4 mg IVPUSH Q8H PRN PRN Reason: Nausea and Vomiting Last Admin: 12/07/23 23:16 Dose: 4 mg Documented By: VARINDER Paroxetine HCl (Paroxetine Hcl 40 Mg Tablet) 40 mg PO BID [facility] Last Admin: 12/08/23 09:38 Dose: 40 mg Documented By: AMELIA Potassium Chloride (Potassium Chloride Er 20 Meq Tab.Er.Prt) 20 meq PO DAILY [facility] Last Admin: 12/08/23 09:39 Dose: 20 meq Documented By: AMELIA Sodium Chloride (0.9 % Sodium Chloride Flush 3 Ml Syringe) 3 ml IVFLUSH QSHIFT [facility] Last Admin: 12/08/23 09:42 Dose: 3 ml Documented By: AMELIA Theophylline (Theophylline Anhydrous Er 400 Mg Tab.Er.24h) 400 mg PO DAILY [facility] Last Admin: 12/08/23 09:39 Dose: 400 mg Documented By: AMELIA Labs 12/08/23 05:53 12/07/23 06:27 Labs: Laboratory Results - last 24 hr 12/08/23 05:53 Hold Purple Top Cancelled Assessment and Plan (1) Atrial fibrillation with RVR: Status: Acute Plan d8 63yo F with NSCLC s/p LITA + RUL wedge resections with 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 currently on palliative chemotherapy, hx breast CA, HCV, depression, HTN, COPD on 3L home O2, opioid dependence, pAF not previous ly on AC due to anemia/thrombocytopenia presenting with dyspnea, admitted for AF/RVR has now developed BRBPR hematochezia - hold apixaban, monitor H+H; clear liquid diet for now and consult GI AF/RVR - weaned from diltiazem drip, diltiazem CD dose increased from 180 to 300 mg/d; continue metoprolol succinate 100 mg daily - apixaban held as above acute/chronic HFpEF - improved, transitioned to oral furosemide hypoK - repleted hypoMg - repleted acute-chronic hypoxic resp failure - acute componenet resolved, now on baseline 3L; continue Trelegy, ipratropium/levalbuterol, theophylline HLD - statin opioid dependence - Suboxone lung CA - on chemotherapy; f/u with Dr Samuels mood disorder - paroxetine VTE ppx - apixaban on hold; place SCDs dispo - eventual home In my clinical judgment, the patient requires continued inpatient hospitalization for the following reasons: BRBPR Total time managing care of this patient today: 35 minutes. Quality Stroke Does the patient have a stroke diagnosis?: No VTE Prior VTE?: No VTE Risk Level:: Medical - moderate - high VTE Device Contraindication: Treatment Not Indicated VTE Drug Contraindication: N/A - Med Ordered
[2023-12-08 15:21] VITALS: BP 116/72; PULSE 90; RESP 20; TEMP 36.2; O2SAT 98
[2023-12-08 19:09] VITALS: BP 125/89; PULSE 83; RESP 18; TEMP 36.2; O2SAT 98
[2023-12-08] MEDS: Sodium Phosphate,Mono-Dibasic 133 ML ENEMA PR (19:54)
[2023-12-08] MEDS: Atorvastatin Calcium 10 MG TABLET PO (20:05)
[2023-12-09] VITALS (10 sets, daily range): BP systolic 101–126; BP diastolic 42–85; PULSE 79–106; RESP 16–20; TEMP 36.1–36.8; O2SAT 92–100
[2023-12-09] MEDS: Levothyroxine Sodium 25 MCG TABLET PO (05:52)
[2023-12-09] MEDS: Omeprazole 20 MG CAPSULE.DR PO (05:52)
[2023-12-09] MEDS: Metoprolol Succinate ER 100 MG TAB.ER.24H PO (08:27)
[2023-12-09] MEDS: Buprenorphine/Naloxone 2/0.5mg FILM 0.5 FILM SUBLINGUAL (08:28)
[2023-12-09] MEDS: Theophylline Anhydrous ER 400 MG TAB.ER.24H PO (08:28)
[2023-12-09] MEDS: Potassium Chloride ER 20 MEQ TAB.ER.PRT PO (08:28)
[2023-12-09] MEDS: 0.9 % Sodium Chloride Flush 3 ML SYRINGE IVFLUSH ×2 (08:28→16:28)
[2023-12-09] MEDS: PARoxetine HCL 40 MG TABLET PO ×2 (08:28→20:18)
[2023-12-09] MEDS: dilTIAZem HCL CD 300 MG CAP.ER.24H PO (08:28)
[2023-12-09] MEDS: Folic Acid 1 MG TABLET PO (08:28)
[2023-12-09] MEDS: Nystatin Powder 15 GM BOTTLE 1 APPL TOPICAL ×2 (08:29→20:24)
[2023-12-09 08:40] LABS: Hematocrit 30.4 % (37.0-47.0); Hemoglobin 9.9 g/dl (12.0-16.0); Mean Corpuscular HGB Conc 32.6 g/dl (31.0-35.0); Mean Corpuscular Hemoglobin 29.6 pg (27.0-33.0); Mean Platelet Volume 9.9 fL (9.4-12.3); NRBC Pct Auto 0.5 /100WBC (0.0-0.2); Platelet Count 174 X10*3/uL (160-400); Red Blood Count 3.34 X10*6/uL (4.20-5.50); Red Cell Distribution Width 15.9 % (11.0-16.0); White Blood Count 4.2 X10*3/uL (4.8-10.8)
[2023-12-09 08:54] LABS: Anion Gap 16 (12-20); Blood Urea Nitrogen 23 mg/dL (9-16); Calcium 9.6 mg/dL (8.4-10.2); Carbon Dioxide 32 mmol/L (22-29); Chloride 94 mmol/L (96-108); Creatinine Clr Calc Pharmacy 51.9; Estimated Glomerular Filt Rate 41; Glucose Random 99 mg/dL (60-115); Magnesium 1.7 mg/dL (1.6-2.6); Potassium 3.5 mmol/L (3.3-5.1); Sodium 138 mmol/L (135-145)
[2023-12-09 09:00] LABS: B Type Natriuretic Peptide 261 pg/mL (<100)
[2023-12-09] MEDS: Sodium Phosphate,Mono-Dibasic 133 ML ENEMA PR (12:37)
--- NOTE | 2023-12-09 12:57 | PC.NURSE ---
Fleet enema given, no BM , pt transfered to [facility] via stretcher for the procedure
--- NOTE | 2023-12-09 13:11 | MHC.SHP ---
Pre-Procedural Eval Section A - 24 Hr Update-Section A only Date of Service: 12/09/23 The patient is an INPATIENT: Yes The patient has been examined within 24 hours of the surgical procedure. The History & Physical has been completed within 30 days and I have reviewed it.: Yes Section B - Complete if H&P > 30 days Chief Complaint: LGIB Allergies: Allergies Allergy/AdvReac Type Severity Reaction Status Date / Time lisinopril [LISINOPRIL] Allergy Severe SWELLING- Verified 12/01/23 06:45 ANGIOEDEMA codeine [CODEINE] Allergy Intermediate VOMITING/HIVES, Verified 12/01/23 06:45 vomiting, hives Plan Diagnosis/Plan: Unchanged I have reviewed the history and physical and performed a pertinent physical examination on my patient. No changes have occurred unless specified. Time Spent With Patient Time: Total time managing care of this patient today ____ minutes.
--- NOTE | 2023-12-09 13:13 | W.MHC.F2F ---
Service Date Service Date: 12/09/23 Encounter Date of encounter: 12/09/23 Reasons for Services Signs and symptoms assessed: dyspnea, atrial fibrillation, anticoagulation Reason for penitentiary: medication management, medication treatment and teach disease management Reason for physical therapy: home safety and mobility, therapeutic exercises, gait/transfer training, assess need for DME, ADL training and energy conservation MD Overseeing Care: Daphne Rodriguez Homebound: Leaving the home is medically contraindicated at this time without the asist of a device and/or another person due th the listed conditions above and below. Reason homebound: shortness of breath with minimal effort and weakness related to hospital stay Certification: Based on the above findings, I certify that this patient is confined to the home and needs intermittent penitentiary care, physical therapy and/or speech therapy, or continues to need occupational therapy. The patient is under my care, and I have initiated the establishment of the plan of care. The patient will be followed by a physician who will periodically review the plan of care. Time Spent With Patient Time: Total time managing care of this patient today ____ minutes.
--- NOTE | 2023-12-09 13:14 | HO.ANESPROP2 ---
HPI - Anesthesia Eval Consult details Narrative: for flexible sig PMFSH Active Problems Active Problems: All Active Problems GI bleed (Acute) Acute on chronic anemia (Acute) Atrial fibrillation with RVR (Acute) Pleural effusion, left (Acute) Supplemental oxygen dependent (Acute) Bronchiolitis (Acute) Severe anemia (Acute) NEELY (dyspnea on exertion) (Acute) Elevated lactic acid level (Acute) Demand ischemia of myocardium (Acute) Hypocalcemia (Acute) Hypokalemia (Acute) Acute diastolic (congestive) heart failure (Acute) Elevated troponin (Acute) Bone metastases (Acute) T6 vertebral fracture (Acute) VIKTORIYA (acute kidney injury) (Acute) Acute respiratory failure with hypoxia (Acute) Acute exacerbation of CHF (congestive heart failure) (Acute) COPD with acute exacerbation (Acute) Leukocytosis (Acute) COPD (chronic obstructive pulmonary disease) (Acute) Pleural effusion (Acute) Hypoxia (Acute) Demand ischemia (Acute) Pancytopenia (Acute) Non-small cell cancer of right lung (Acute) Bilateral lung cancer (Chronic) Cancer of upper lobe of right lung (Chronic ~2019) Cancer of upper lobe of left lung (Acute ~2020) Pulmonary nodules (Acute) COPD (chronic obstructive pulmonary disease) (Acute) Smoker (Acute) Ground glass opacity present on imaging of lung (Acute) Internal and external bleeding hemorrhoids (Acute) Past Medical History Medical History Pancytopenia New onset a-fib Cancer of upper lobe of left lung (~2020) Bilateral lung cancer Obesity History of hepatitis C Smoker Tubular adenoma of colon Pulmonary nodules History of breast cancer (~2006) Internal and external bleeding hemorrhoids Cancer of upper lobe of right lung (~2019) GERD (gastroesophageal reflux disease) Depression COPD (chronic obstructive pulmonary disease) HTN (hypertension) Family History Family History Mother History of lung cancer Brother History of lung cancer Maternal Grandmother Breast cancer in female Maternal Aunt Breast cancer in female Daughter Thyroid cancer Family history of problems with anesthesia: No Surgical History Surgical History History of lung surgery (~2020) History of anterior colporrhaphy (~2016) History of tubal ligation History of lumpectomy of right breast (~2006) History of colonoscopy (~2014) History of hemorrhoidectomy (~2019) History of back surgery (~2011) History of lobectomy of lung (~2019) History of Problems with Anesthesia: No Social History Social History Household Members: Significant Other Household Members Other:: 2 Housing: House Are you a primary lawn care professional to a significant other at home: No Do you presently have visiting nurse or other home services: No Unable to assess alcohol history related to: Unable to respond Alcohol intake: never Comment: rings appropriately Patient Tobacco Use Status: Former Tobacco user Tobacco use type: Cigarette Cigarette Packs Per Day: 1 Cigarettes Per Day: 10 Years Smoked: 50 Second Hand Smoke Exposure: Yes Substance Use Type: Marijuana Advance Directives Date on File: 02/02/22 service: No Current occupational status: disabled Current occupational exposures/hazards: No Meds Allergies Allergy/AdvReac Type Severity Reaction Status Date / Time lisinopril [LISINOPRIL] Allergy Severe SWELLING- Verified 12/01/23 06:45 ANGIOEDEMA codeine [CODEINE] Allergy Intermediate VOMITING/HIVES, Verified 12/01/23 06:45 vomiting, hives Active Medications: Current Medications Acetaminophen (Acetaminophen 325 Mg Tablet) 650 mg PO Q6H PRN PRN Reason: Pain, Mild (Pain Scale 1-3), fever or headache Last Admin: 12/07/23 20:10 Dose: 650 mg Apixaban (Apixaban 5 Mg Tablet) 5 mg PO BID [facility] Last Admin: 12/07/23 08:44 Dose: 5 mg Atorvastatin Calcium (Atorvastatin Calcium 10 Mg Tablet) 10 mg PO BEDTIME [facility] Last Admin: 12/08/23 20:05 Dose: 10 mg Benzonatate (Benzonatate 100 Mg Capsule) 100 mg PO TID PRN PRN Reason: Cough Last Admin: 12/05/23 20:43 Dose: 100 mg Buprenorphine/Naloxone (Buprenorphine/Naloxone 2/0.5mg Film) 0.5 film SUBLINGUAL DAILY [facility] Last Admin: 12/09/23 08:28 Dose: 0.5 film Calcium Carbonate (Calcium Carbonate 750 Mg Tab.Chew) 750 mg PO Q4H PRN PRN Reason: Heartburn Levalbuterol HCl 1.25 mg/ (Ipratropium [place] 0.5 mg) 0 mg INHALE RQ4H WHILE AWAKE PRN PRN Reason: Shortness of Breath/Wheezing Last Admin: 12/03/23 01:42 Dose: 5 dose Diltiazem HCl (Diltiazem Hcl Cd 300 Mg Cap.Er.24h) 300 mg PO DAILY [facility]; Protocol Last Admin: 12/09/23 08:28 Dose: 300 mg Docusate Sodium (Docusate Sodium 100 Mg Capsule) 100 mg PO BEDTIME PRN PRN Reason: stool softener Last Admin: 12/05/23 20:43 Dose: 100 mg Folic Acid (Folic Acid 1 Mg Tablet) 1 mg PO DAILY [facility] Last Admin: 12/09/23 08:28 Dose: 1 mg Guaifenesin/Dextromethorphan (Guaifenesin Dm 100/10/5 Ml 5 Ml Syrup) 5 ml PO Q6H [facility] Last Admin: 12/09/23 11:43 Dose: Not Given Levothyroxine Sodium (Levothyroxine Sodium 25 Mcg Tablet) 25 mcg PO DAILY@0600 [facility] Last Admin: 12/09/23 05:52 Dose: 25 mcg Magnesium Hydroxide (Milk Of Magnesia 30 Ml Oral.Susp) 30 ml PO DAILY PRN PRN Reason: Constipation Melatonin (Melatonin 3 Mg Tablet) 6 mg PO BEDTIME PRN PRN Reason: Insomnia Last Admin: 12/06/23 22:13 Dose: 6 mg Metoprolol Succinate (Metoprolol Succinate Er 100 Mg Tab.Er.24h) 100 mg PO DAILY [facility]; Protocol Last Admin: 12/09/23 08:27 Dose: 100 mg Nicotine (Nicotine 21 Mg Patch.Td24) 21 mg TRANSDERMA DAILY [facility] Last Admin: 12/09/23 08:29 Dose: Not Given Nystatin (Nystatin Powder 15 Gm Bottle) 1 appl TOPICAL BID [facility]; Protocol Last Admin: 12/09/23 08:29 Dose: 1 appl Omeprazole (Omeprazole 20 Mg Capsule.Dr) 20 mg PO DAILY@0630 [facility] Last Admin: 12/09/23 05:52 Dose: 20 mg Ondansetron HCl (Ondansetron Hcl 4 Mg/2 Ml Vial) 4 mg IVPUSH Q8H PRN PRN Reason: Nausea and Vomiting Last Admin: 12/07/23 23:16 Dose: 4 mg Paroxetine HCl (Paroxetine Hcl 40 Mg Tablet) 40 mg PO BID [facility] Last Admin: 12/09/23 08:28 Dose: 40 mg Potassium Chloride (Potassium Chloride Er 20 Meq Tab.Er.Prt) 20 meq PO DAILY [facility] Last Admin: 12/09/23 08:28 Dose: 20 meq Sodium Chloride (0.9 % Sodium Chloride Flush 3 Ml Syringe) 3 ml IVFLUSH QSHIFT [facility] Last Admin: 12/09/23 08:28 Dose: 3 ml Theophylline (Theophylline Anhydrous Er 400 Mg Tab.Er.24h) 400 mg PO DAILY [facility] Last Admin: 12/09/23 08:28 Dose: 400 mg Home Medications ?Medication ?Instructions ?Recorded ?Confirmed ?Last Taken ?Type milnacipran 50 mg tablet (Savella) 50 mg PO BID 01/18/22 12/01/23 11/30/23 History omeprazole 20 mg capsule,delayed 20 mg PO DAILY@0630 01/18/22 12/01/23 11/30/23 History release paroxetine HCl 20 mg tablet 40 mg PO BID 01/18/22 12/01/23 11/30/23 History simvastatin 20 mg tablet 20 mg PO BEDTIME 02/17/22 12/01/23 11/30/23 History albuterol sulfate 90 mcg/actuation 2 puff inhalation Q6H PRN sob 06/22/23 12/01/23 07/09/23 History aerosol inhaler (Ventolin HFA) buprenorphine 2 mg-naloxone 0.5 mg 0.5 - 1 film sublingual DAILY 07/09/23 12/01/23 11/30/23 History sublingual film (Suboxone) docusate sodium 100 mg capsule 100 mg PO BEDTIME PRN stool 07/09/23 12/01/23 11/02/23 History softener umeclidinium 62.5 mcg-vilanterol 1 inh inhalation DAILY 07/09/23 12/01/23 11/30/23 History 25 mcg/actuation powdr for inhalation (Anoro Ellipta) ipratropium 0.5 mg-albuterol 3 mg 3 ml inhalation Q6H PRN wheezing 10/18/23 12/01/23 12/01/23 History (2.5 mg base)/3 mL nebulization soln levothyroxine 25 mcg tablet 25 mcg PO DAILY@0600 10/18/23 12/01/23 11/30/23 History (Synthroid) acetaminophen 500 mg tablet 500 mg PO DAILY PRN Pain 11/03/23 12/01/23 Unknown History Exam Height,Weight and Vital Signs: Height 5 ft 7 in Weight 93.5 kg Last Vital Signs Temp 97.1 F 12/09/23 11:38 Pulse 97 12/09/23 11:38 Resp 20 12/09/23 11:38 BP 125/83 12/09/23 11:38 Pulse Ox 97 12/09/23 11:38 O2 Del Method Nasal Cannula 12/09/23 11:38 O2 Flow Rate 3 12/09/23 11:38 Oxygen Flow Rate 2 12/01/23 06:39 Pertinent Lab Results Pertinent Lab Results: Laboratory Tests 12/01/23 12/01/23 12/01/23 06:56 07:06 07:27 WBC 3.4 L RBC 3.28 L Hgb 9.6 L Hct 30.1 L MCV 91.8 MCH 29.3 MCHC 31.9 RDW 16.2 H Plt Count 150 L D MPV 9.4 Immature Gran % (Auto) 0.6 H Neut % (Auto) 59.5 Lymph % (Auto) 21.4 Mitchell % (Auto) 16.1 H Eos % (Auto) 1.8 Baso % (Auto) 0.6 Lymph # (Auto) 0.7 L Mitchell # (Auto) 0.5 Eos # (Auto) 0.1 Baso # (Auto) 0.0 Abs Immat Gran (auto) 0.02 Absolute Neuts (auto) 2.0 Absolute Nucleated RBC 0.000 Nucleated RBC % (auto) 0.0 Hold Purple Top VBG pH 7.45 H VBG pCO2 43 VBG pO2 58 VBG HCO3 30 H VBG O2 Saturation 93.0 VBG Base Excess 6.4 Sodium 139 Potassium 3.5 Chloride 100 Carbon Dioxide 28 Anion Gap 15 BUN 18 H Creatinine 1.35 Estim Creat Clear Calc 50.1 Estimated GFR 40 Random Glucose 144 H Lactic Acid Calcium 8.9 D Magnesium 1.1 L* Total Bilirubin 0.6 Direct Bilirubin 0.2 AST 14 ALT 16 Alkaline Phosphatase 56 Troponin I High Sens 49.3 H B-Natriuretic Peptide 142 H Total Protein 6.4 L Albumin 3.5 Procalcitonin 0.09 Urine Color Urine Appearance Urine pH Ur Specific [place] Urine Protein Urine Glucose (UA) Urine Ketones Urine Blood Urine Nitrite Ur Leukocyte Esterase Urine RBC Urine WBC Ur Squamous Epith Cells Urine Bacteria Hyaline Casts Influenza Type A (PCR) NEGATIVE Influenza Type B (PCR) NEGATIVE RSV RNA Qual (PCR) NEGATIVE SARS-CoV-2 RNA (RT-PCR) NEGATIVE 12/01/23 12/01/23 12/02/23 10:08 11:15 07:59 WBC 5.0 RBC 3.26 L Hgb 9.7 L Hct 29.6 L MCV 90.8 MCH 29.8 MCHC 32.8 RDW 16.3 H Plt Count 214 D MPV 9.7 Immature Gran % (Auto) Neut % (Auto) Lymph % (Auto) Mitchell % (Auto) Eos % (Auto) Baso % (Auto) Lymph # (Auto) Mitchell # (Auto) Eos # (Auto) Baso # (Auto) Abs Immat Gran (auto) Absolute Neuts (auto) Absolute Nucleated RBC 0.000 Nucleated RBC % (auto) 0.0 Hold Purple Top VBG pH VBG pCO2 VBG pO2 VBG HCO3 VBG O2 Saturation VBG Base Excess Sodium 139 Potassium 4.1 Chloride 101 Carbon Dioxide 27 Anion Gap 15 BUN 29 H Creatinine 1.42 H Estim Creat Clear Calc 47.6 Estimated GFR 37 Random Glucose 189 H Lactic Acid 1.4 Calcium 9.4 Magnesium 2.2 Total Bilirubin Direct Bilirubin AST ALT Alkaline Phosphatase Troponin I High Sens 39.7 H B-Natriuretic Peptide Total Protein Albumin Procalcitonin Urine Color Yellow Urine Appearance Clear Urine pH 6.0 Ur Specific [place] 1.015 Urine Protein 30 (1+) H Urine Glucose (UA) Negative Urine Ketones Negative Urine Blood Negative Urine Nitrite Negative Ur Leukocyte Esterase Trace H Urine RBC 0-2 Urine WBC 0-5 Ur Squamous Epith Cells 6-10 Urine Bacteria Trace Hyaline Casts 0-2 Influenza Type A (PCR) Influenza Type B (PCR) RSV RNA Qual (PCR) SARS-CoV-2 RNA (RT-PCR) 12/03/23 12/04/23 12/05/23 06:11 05:53 06:58 WBC 6.1 4.0 L RBC 3.20 L 3.11 L Hgb 9.4 L 9.4 L Hct 29.8 L 28.7 L MCV 93.1 92.3 MCH 29.4 30.2 MCHC 31.5 32.8 RDW 16.5 H 16.1 H Plt Count 223 193 MPV 9.6 9.6 Immature Gran % (Auto) 2.3 H Neut % (Auto) 62.8 Lymph % (Auto) 16.6 L Mitchell % (Auto) 16.3 H Eos % (Auto) 1.5 Baso % (Auto) 0.5 Lymph # (Auto) 0.7 L Mitchell # (Auto) 0.7 Eos # (Auto) 0.1 Baso # (Auto) 0.0 Abs Immat Gran (auto) 0.09 H Absolute Neuts (auto) 2.5 Absolute Nucleated RBC 0.020 H 0.020 H Nucleated RBC % (auto) 0.3 H 0.5 H Hold Purple Top VBG pH VBG pCO2 VBG pO2 VBG HCO3 VBG O2 Saturation VBG Base Excess Sodium 138 140 140 Potassium 3.6 4.0 3.2 L Chloride 100 96 93 L Carbon Dioxide 28 33 H 35 H Anion Gap 14 15 15 BUN 32 H 28 H 23 H Creatinine 1.22 1.47 H 1.21 Estim Creat Clear Calc 55.3 45.9 55.8 Estimated GFR 45 36 45 Random Glucose 114 126 H 131 H Lactic Acid Calcium 9.5 9.9 9.9 Magnesium 1.9 1.7 1.6 Total Bilirubin Direct Bilirubin AST ALT Alkaline Phosphatase Troponin I High Sens B-Natriuretic Peptide 358 H Total Protein Albumin Procalcitonin Urine Color Urine Appearance Urine pH Ur Specific [place] Urine Protein Urine Glucose (UA) Urine Ketones Urine Blood Urine Nitrite Ur Leukocyte Esterase Urine RBC Urine WBC Ur Squamous Epith Cells Urine Bacteria Hyaline Casts Influenza Type A (PCR) Influenza Type B (PCR) RSV RNA Qual (PCR) SARS-CoV-2 RNA (RT-PCR) 12/05/23 12/06/23 12/07/23 07:09 06:17 06:27 WBC RBC Hgb Hct MCV MCH MCHC RDW Plt Count MPV Immature Gran % (Auto) Neut % (Auto) Lymph % (Auto) Mitchell % (Auto) Eos % (Auto) Baso % (Auto) Lymph # (Auto) Mitchell # (Auto) Eos # (Auto) Baso # (Auto) Abs Immat Gran (auto) Absolute Neuts (auto) Absolute Nucleated RBC Nucleated RBC % (auto) Hold Purple Top SEE NOTE VBG pH 7.48 H VBG pCO2 60 VBG pO2 44 VBG HCO3 44 H VBG O2 Saturation 88.0 VBG Base Excess 18.6 Sodium 142 138 Potassium 3.0 L 3.4 Chloride 90 L 90 L Carbon Dioxide 38 H 35 H Anion Gap 17 16 BUN 23 H 27 H Creatinine 1.51 H 1.45 H Estim Creat Clear Calc 44.7 46.6 Estimated GFR 35 36 Random Glucose 134 H 126 H Lactic Acid Calcium 9.8 9.6 Magnesium 1.7 Total Bilirubin Direct Bilirubin AST ALT Alkaline Phosphatase Troponin I High Sens B-Natriuretic Peptide 241 H Total Protein Albumin Procalcitonin Urine Color Urine Appearance Urine pH Ur Specific [place] Urine Protein Urine Glucose (UA) Urine Ketones Urine Blood Urine Nitrite Ur Leukocyte Esterase Urine RBC Urine WBC Ur Squamous Epith Cells Urine Bacteria Hyaline Casts Influenza Type A (PCR) Influenza Type B (PCR) RSV RNA Qual (PCR) SARS-CoV-2 RNA (RT-PCR) 12/07/23 12/08/23 12/09/23 13:12 05:53 08:03 WBC 4.4 L 4.2 L RBC 3.50 L 3.34 L Hgb 10.5 L 9.5 L 9.9 L Hct 31.4 L 28.8 L 30.4 L MCV 89.7 91.0 MCH 30.0 29.6 MCHC 33.4 32.6 RDW 15.7 15.9 Plt Count 209 174 MPV 9.4 9.9 Immature Gran % (Auto) Neut % (Auto) Lymph % (Auto) Mitchell % (Auto) Eos % (Auto) Baso % (Auto) Lymph # (Auto) Mitchell # (Auto) Eos # (Auto) Baso # (Auto) Abs Immat Gran (auto) Absolute Neuts (auto) Absolute Nucleated RBC 0.000 0.020 H Nucleated RBC % (auto) 0.0 0.5 H Hold Purple Top Cancelled VBG pH VBG pCO2 VBG pO2 VBG HCO3 VBG O2 Saturation VBG Base Excess Sodium 138 Potassium 3.5 Chloride 94 L Carbon Dioxide 32 H Anion Gap 16 BUN 23 H Creatinine 1.30 Estim Creat Clear Calc 51.9 Estimated GFR 41 Random Glucose 99 Lactic Acid Calcium 9.6 Magnesium 1.7 Total Bilirubin Direct Bilirubin AST ALT Alkaline Phosphatase Troponin I High Sens B-Natriuretic Peptide 261 H Total Protein Albumin Procalcitonin Urine Color Urine Appearance Urine pH Ur Specific [place] Urine Protein Urine Glucose (UA) Urine Ketones Urine Blood Urine Nitrite Ur Leukocyte Esterase Urine RBC Urine WBC Ur Squamous Epith Cells Urine Bacteria Hyaline Casts Influenza Type A (PCR) Influenza Type B (PCR) RSV RNA Qual (PCR) SARS-CoV-2 RNA (RT-PCR) Airway Mallampati Class: II TM Dist: <=3cm Neck ROM: Full Heart: see above Lungs: see above. SpO2 97% on 3L NC. Chest clear w dimin BS. Assessment and Plan Assessment Anesthesia Assessment: Anesthesia Plan Discussed and Chart Reviewed Final Anesthetic Review Family History of Problems with Anesthesia: No History of Problems with Anesthesia: No NPO: Yes ASA Class: IV Final Preanesthetic Review: No Changes in Pt Med Stat, Meds/Allgs Chart Reviewed, Consent Obtained/Reviewed and Anes Risks/Benef Reviewed Patient Risk: High Procedure Risk: Low Anesthetic Plan Anesthetic Plan: MAC: and Agree w/ Assess. and Plan Disposition: Standard PACU
--- NOTE | 2023-12-09 13:44 | P.OPN-COLO_ITS ---
Colonoscopy Operative Note Operative Note Date of Service: 12/09/23 Narrative: Procedure: Flexible sigmoidoscopy Indication: Lower GI bleeding Endoscopist: Marli Martinez MD Anesthesia Provider: Dr Chang Torres Anesthesia type: MAC Instrument: Olympus [id number] Consent: Indication, risks vs benefits, and alternatives were discussed with the patient who gave written informed consent to proceed. EKG, pulse, pulse oximetry and blood pressure were monitored throughout the procedure. Please see anesthesia flowsheet. Procedure: The patient was brought to the procedure room and placed in the left lateral decubitus position. IV medications were administered by the anesthesia provider in attendance. A digital rectal exam was performed which was abnormal due to finding of hemorrhoids. The gastroscope was then inserted through the anus and advanced through the colon to the splenic flexure. Mucosa was carefully examined under high definition white light as the instrument was slowly withdrawn in a retrograde panoramic fashion. Retroflexion was performed in rectum. The procedure was not difficult. There were no immediate obvious complications. The quality of the prep was adequate. Limitations: No limitations. Findings: Mucosa: Normal to the extent examined. Protruding lesions: * Internal hemorrhoids with one column with stigmata of recent bleeding. Impression: 1. Normal colon mucosa 2. External and internal hemorrhoids with stigmata of recent bleeding Recommendations: - Add fiber supplementation - Sitz baths - Anusol suppositories - Consider surgical consultation if continues to bleed with anticoagulation on board
--- NOTE | 2023-12-09 14:39 | P.DS_ITS ---
DS: Providers Provider Date of Service: 12/09/23 Date of admission: 12/01/23 13:08 Date of discharge: 12/09/23 Primary care physician: Daphne Rodriguez MD Consults: 12/02/23 10:23 Consult to Cardiology Routine Consulting Provider: [facility] Reason for consultation: difficult to control a. fib rvr 12/07/23 23:28 Consult to Gastroenterology Routine Consulting Provider: Marli Martinez Reason for consultation: hematochezia DS: Diagnosis Discharge Diagnosis (1) Acute on chronic anemia: Status: Acute (2) Atrial fibrillation with RVR: Status: Acute (3) GI bleed: Status: Acute (4) Internal hemorrhoid, bleeding: Status: Acute DS: Summary Hospital Course Hospital Course: From the history and physical by the admitting hospitalist, 12/01/23: Pt is a -year-old female with a PMH significant for non-small cell lung cancer s/p left upper lobe and right upper lobe wedge resection, with mets to brain, liver, and bones, is currently undergoing palliative chemotherapy under the care of Dr. Arvind cruz on 11/26/23. She also has a hx of breast cancer, depression, hepatitis C, HTN, COPD on 3L home O2 and actively smoking, paroxysmal atrial fibrillation not on anticoagulation due to a history of low platelets and anemia, and opioid dependence. Pt?presents to the ED today from home for evaluation of worsening SOB since yesterday. ?Was recently admitted to the hospital from 11/02-11/13 and treated for COPD exacerbation in the setting of pertussis and rhinovirus. Patient reports she was doing well after discharge until Wednesday when she began having increased shortness of breath, cough, and occasional palpitations. [place] generally weak. Yesterday symptoms were worse, and patient increased her home O2 to 4 L to no effect. This morning continued to feel SOB and palpitations were so severe that she felt ?like my heart would jump right out of my chest?. Denies fever, chills. No nausea, vomiting, abdominal pain. In the ED pt was tachycardic up to 150, tachypneic up to 26, and hypertensive up to 150 106. Labs were significant for leukopenia of hold, H&H 9.6/30.1, platelets 150, magnesium 1.1, initial troponin 49.3 with repeat flat at 39.7, and BNP 142. CXR unchanged from previous, showing extensive bilateral lung disease. EKG demonstrated AFib with RVR of 143. Pt was treated with Solu-Medrol 60 mg IV, Mag sulfate 2 g, acetaminophen, doxycycline, Suboxone, metoprolol 5 mg IV, and diltiazem 60 mg p.o.. Pt will be admitted to the hospital for treatment and further evaluation of AFib with RVR. 63yo F with NSCLC s/p LITA + RUL wedge resections with 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 currently on palliative chemotherapy, hx breast CA, HCV, depression, HTN, COPD on 3L home O2, opioid dependence, pAF not previously on AC due to anemia/thrombocytopenia; presenting with dyspnea, admitted for AF/RVR complicated by BRBPR. Hospital course by problem: hematochezia - apixaban held, H+H stable; Dr Martinez from GI consulted and performed sigmoidoscopy 12/09/23 showing internal hemorrhoids with stigmata of recent bleeding - per GI, she was monitored on therapeutic enoxaparin for 24 hours and there was no bleeding. She was discharged on apixaban and should follow up with her primary care doctor in 1 week and recheck hemoglobin and hematocrit in 1 week. AF/RVR - weaned from diltiazem drip, diltiazem CD dose increased from 180 to 300 mg/d; added metoprolol succinate 100 mg daily - apixaban as above acute/chronic HFpEF - got a few doses of IV furosemide then transitioned to oral furosemide acute-chronic hypoxic resp failure - acute component resolved with diuresis, now on baseline 3L She was discharged home with VNA services and will need Cardiology + Oncology + Primary Care follow-ups. Time Attestation Discharge Coordination Time (in mins): 35 Quality: Safe Use of Opioids Does Pt have an Active Cancer Diagnosis on the Problem List?: No Quality: Stroke Does the patient have a stroke diagnosis?: No Physical Exam Vital Signs: Vital Signs: Temp Pulse Resp BP Pulse Ox O2 Del Method O2 Flow Rate 96.9 F 88 20 103/63 98 Nasal Cannula 3 12/10/23 08:00 12/10/23 08:00 12/10/23 08:00 12/10/23 08:00 12/10/23 08:00 12/10/23 08:00 12/10/23 08:00 HEENT: sclera anicteric, moist mucus membranes Neck: supple, JVD present Lungs: diminished throughout, no adventitious sounds Heart: irregular, no murmurs Abd: soft, non-tender, non-distended Ext: no edema Skin: warm/well-perfused Neuro: alert and oriented x3, no focal findings Psych: appropriate affect DS: Data Data Completed and Pending Completed studies during hospitalization [Text1]: Laboratory Results WBC 4.2 X10*3/uL (4.8-10.8) L 12/09/23 08:03 RBC 3.34 X10*6/uL (4.20-5.50) L 12/09/23 08:03 Hgb 8.9 g/dl (12.0-16.0) L 12/10/23 06:28 Hct 28.1 % (37.0-47.0) L 12/10/23 06:28 MCV 91.0 fL (80.0-98.0) 12/09/23 08:03 MCH 29.6 pg (27.0-33.0) 12/09/23 08:03 MCHC 32.6 g/dl (31.0-35.0) 12/09/23 08:03 RDW 15.9 % (11.0-16.0) 12/09/23 08:03 Plt Count 174 X10*3/uL (160-400) 12/09/23 08:03 MPV 9.9 fL (9.4-12.3) 12/09/23 08:03 Immature Gran % (Auto) 2.3 % (0.0-0.4) H 12/04/23 05:53 Neut % (Auto) 62.8 % (45-73) 12/04/23 05:53 Lymph % (Auto) 16.6 % (20-40) L 12/04/23 05:53 [place] % (Auto) 16.3 % (2-11) H 12/04/23 05:53 Eos % (Auto) 1.5 % (0-4) 12/04/23 05:53 Baso % (Auto) 0.5 % (0-2) 12/04/23 05:53 Lymph # (Auto) 0.7 X10*3/uL (1.2-4.9) L 12/04/23 05:53 [place] # (Auto) 0.7 X10*3/uL (0.1-1.2) 12/04/23 05:53 Eos # (Auto) 0.1 X10*3/uL (0.0-0.4) 12/04/23 05:53 Baso # (Auto) 0.0 X10*3/uL (0.0-0.2) 12/04/23 05:53 Abs Immat Gran (auto) 0.09 X10*3/uL (0.00-0.03) H 12/04/23 05:53 Absolute Neuts (auto) 2.5 x10*3/uL (2.0-8.3) 12/04/23 05:53 Absolute Nucleated RBC 0.020 X10*3/uL (0.0-0.012) H 12/09/23 08:03 Nucleated RBC % (auto) 0.5 /100WBC (0.0-0.2) H 12/09/23 08:03 Hold Purple Top Cancelled 12/08/23 05:53 VBG pH 7.48 (7.32-7.43) H 12/05/23 07:09 VBG pCO2 60 mmHg 12/05/23 07:09 VBG pO2 44 mmHg 12/05/23 07:09 VBG HCO3 44 mmol/L (22-26) H 12/05/23 07:09 VBG O2 Saturation 88.0 % 12/05/23 07:09 VBG Base Excess 18.6 mmol/L 12/05/23 07:09 Sodium 138 mmol/L (135-145) 12/09/23 08:03 Potassium 3.5 mmol/L (3.3-5.1) 12/09/23 08:03 Chloride 94 mmol/L (96-108) L 12/09/23 08:03 Carbon Dioxide 32 mmol/L (22-29) H 12/09/23 08:03 Anion Gap 16 (12-20) 12/09/23 08:03 BUN 23 mg/dL (9-16) H 12/09/23 08:03 Creatinine 1.30 mg/dL (0.5-1.4) 12/09/23 08:03 Estim Creat Clear Calc 51.9 12/09/23 08:03 Estimated GFR 41 12/09/23 08:03 Random Glucose 99 mg/dL (60-115) 12/09/23 08:03 Lactic Acid 1.4 mmol/L (0.5-2.0) 12/01/23 10:08 Calcium 9.6 mg/dL (8.4-10.2) 12/09/23 08:03 Magnesium 1.7 mg/dL (1.6-2.6) 12/09/23 08:03 Total Bilirubin 0.6 mg/dL (0.0-1.0) 12/01/23 06:56 Direct Bilirubin 0.2 mg/dL (0.0-0.5) 12/01/23 06:56 AST 14 U/L (5-31) 12/01/23 06:56 ALT 16 U/L (0-31) 12/01/23 06:56 Alkaline Phosphatase 56 U/L (39-117) 12/01/23 06:56 Troponin I High Sens 39.7 ng/L (<3.5-17.0) H 12/01/23 11:15 B-Natriuretic Peptide 261 pg/mL (<100) H 12/09/23 08:03 Total Protein 6.4 g/dL (6.5-8.0) L 12/01/23 06:56 Albumin 3.5 g/dL (3.5-5.0) 12/01/23 06:56 Procalcitonin 0.09 ng/mL 12/01/23 06:56 Urine Color Yellow 12/01/23 11:15 Urine Appearance Clear 12/01/23 11:15 Urine pH 6.0 (5.0-9.0) 12/01/23 11:15 Ur Specific [place] 1.015 (1.005-1.025) 12/01/23 11:15 Urine Protein 30 (1+) mg/dL (Neg-Trace) H 12/01/23 11:15 Urine Glucose (UA) Negative mg/dL (Negative) 12/01/23 11:15 Urine Ketones Negative mg/dL (Negative) 12/01/23 11:15 Urine Blood Negative (Negative) 12/01/23 11:15 Urine Nitrite Negative (Negative) 12/01/23 11:15 Ur Leukocyte Esterase Trace (Negative) H 12/01/23 11:15 Urine RBC 0-2 /HPF (0-2) 12/01/23 11:15 Urine WBC 0-5 /HPF (0-5) 12/01/23 11:15 Ur Squamous Epith Cells 6-10 /HPF (0-2) 12/01/23 11:15 Urine Bacteria Trace (None Seen) 12/01/23 11:15 Hyaline Casts 0-2 /LPF (0-2) 12/01/23 11:15 Influenza Type A (PCR) NEGATIVE (Negative) 12/01/23 07:27 Influenza Type B (PCR) NEGATIVE (Negative) 12/01/23 07:27 RSV RNA Qual (PCR) NEGATIVE (Negative) 12/01/23 07:27 SARS-CoV-2 RNA (RT-PCR) NEGATIVE (Negative) 12/01/23 07:27 Impressions Chest X-Ray 12/01/23 06:34 IMPRESSION: 1. Unchanged Extensive left lower lung airspace disease and interval increase in small left pleural effusion. 2. Unchanged Right lung volume loss with superior tethering of right hemidiaphragm. 3. Unchanged Hazy alveolar density in the right lateral lung base with fibrotic obliteration of right lateral costophrenic angle. 4. Unchanged status post lower cervical spine ACDF. Electronically signed by: Beryl Treadwell MD 12/01/2023 09:08 AM EDT Discharge Plan Discharge Anticipated Discharge Date/Time: 12/10/23 14:27 Patient Disposition: Home Health Service Discharge Diagnosis: lower GI bleeding atrial fibrillation hypoxia Referrals: Froilan CUADRA [Outside] - 1 Week Daphne Rodriguez MD [Primary Care Provider] - 1 Week Discharge Medications: New metoprolol succinate 100 mg Tablet Extended Release 24 Hr 100 mg PO DAILY Qty: 30 0RF Protocol: Hold for SBP/HR < HOLD for SBP < : 90 HOLD for HR < : 60 diltiazem HCl 300 mg Capsule,Extended Release 24hr 300 mg PO DAILY Qty: 30 0RF Protocol: Hold for SBP/HR < HOLD for SBP < : 90 HOLD for HR < : 60 nicotine 21 mg/24 hr Patch 24 Hour 21 mg transdermal DAILY Qty: 30 0RF Eliquis 5 mg Tablet 5 mg PO BID Qty: 60 0RF furosemide 40 mg tablet 40 mg PO QAM Qty: 30 0RF furosemide 40 mg tablet 40 mg PO QAM Qty: 30 0RF Continued potassium chloride [K-Tab] 20 mEq Tablet Extended Release 20 meq PO DAILY Qty: 30 0RF folic acid 1 mg tablet 1 mg PO DAILY Qty: 90 3RF paroxetine HCl 20 mg tablet 40 mg PO BID omeprazole 20 mg capsule,delayed release(DR/EC) 20 mg PO DAILY@0630 [place] 50 mg tablet 50 mg PO BID simvastatin 20 mg Tablet 20 mg PO BEDTIME docusate sodium 100 mg capsule 100 mg PO BEDTIME PRN (Reason: stool softener) buprenorphine-naloxone [Suboxone] 2-0.5 mg film 0.5 - 1 film sublingual DAILY Anoro Ellipta 62.5-25 mcg/actuation blister with device 1 inh INHALATION DAILY ipratropium-albuterol 0.5 mg-3 mg(2.5 mg base)/3 mL solution for nebulization 3 ml inhalation Q6H PRN (Reason: wheezing) levothyroxine [Synthroid] 25 mcg tablet 25 mcg PO DAILY@0600 acetaminophen 500 mg Tablet 500 mg PO DAILY PRN (Reason: Pain) albuterol sulfate [Ventolin HFA] 90 mcg/actuation HFA aerosol inhaler 2 puff inhalation Q6H PRN (Reason: sob) theophylline 400 mg tablet extended release 24 hr 400 mg PO DAILY 30 Days Qty: 30 6RF Discontinued metoprolol ta-hydrochlorothiaz 50-25 mg tablet 1 tab PO DAILY Qty: 90 0RF diltiazem HCl 180 mg capsule,ext.rel 24h degradable 180 mg PO DAILY Qty: 90 0RF Discharge Orders: Discharge Order (Routine); Ordered 12/10/23 Ordered By: Rachael Ambriz Diet: Advance to usual diet Activity on Discharge: As tolerated Stand Alone Forms: Patient Portal Discharge page Print Language: Faroese Other Ambulatory Orders: Hemoglobin and Hematocrit (Routine) Timeframe: 1 Week Facility: [facility] - Location: Laboratory Ordered By: Rachael Ambriz Care Plan Goals: cardiac health safe anticoagulation Health Concerns: lower GI bleeding atrial fibrillation CHF hypoxia Plan of Treatment: increase diltiazem from 180 mg to 300 mg once daily; add metoprolol succinate 100 mg once daily take apixaban 5 mg twice daily to prevent strokes. if you develop GI bleeding, please stop apixaban. check hemoglobin/hematocrit in 1 week take furosemide 40 mg once daily continue oxygen 3L at all times follow up with Cardiology in 2 weeks follow up with your oncologist for ongoing cancer care Please follow up with your primary care doctor within 1 week. Return to the hospital if you experience recurrent or worsening symptoms. Assessment: See Discharge Summary.
--- NOTE | 2023-12-09 14:53 | HO.PM.IMPN ---
Subjective Subjective Date of Service: 12/09/23 Interval History: no further BRBPR to scope today HR controlled on diltiazem/metoprolol Review of Systems Review of Systems: Yes all other systems are reviewed and are negative Physical Exam Vital Signs: Vital Signs: Last Vital Signs Temp 97 F 12/09/23 14:06 Pulse 89 12/09/23 14:06 Resp 16 12/09/23 14:06 BP 119/76 12/09/23 14:06 Pulse Ox 96 12/09/23 14:06 O2 Del Method Nasal Cannula 12/09/23 14:06 O2 Flow Rate 3 12/09/23 14:06 Oxygen Flow Rate 2 12/01/23 06:39 BMI result Body Mass Index 32.3 Gen: in no acute distress HEENT: sclera anicteric, moist mucus membranes Neck: supple, JVD present Lungs: diminished throughout, no adventitious sounds Heart: irregular, no murmurs Abd: soft, non-tender, non-distended Ext: no edema Skin: warm/well-perfused Neuro: alert and oriented x3, no focal findings Psych: appropriate affect Objective Data Active Medications Acetaminophen (Acetaminophen 325 Mg Tablet) 650 mg PO Q6H PRN PRN Reason: Pain, Mild (Pain Scale 1-3), fever or headache Last Admin: 12/07/23 20:10 Dose: 650 mg Documented By: VARINDER Apixaban (Apixaban 5 Mg Tablet) 5 mg PO BID [facility] Last Admin: 12/07/23 08:44 Dose: 5 mg Documented By: PEDOR Atorvastatin Calcium (Atorvastatin Calcium 10 Mg Tablet) 10 mg PO BEDTIME [facility] Last Admin: 12/08/23 20:05 Dose: 10 mg Documented By: MAT Benzonatate (Benzonatate 100 Mg Capsule) 100 mg PO TID PRN PRN Reason: Cough Last Admin: 12/05/23 20:43 Dose: 100 mg Documented By: ANUPAMA-BINA Buprenorphine/Naloxone (Buprenorphine/Naloxone 2/0.5mg Film) 0.5 film SUBLINGUAL DAILY [facility] Last Admin: 12/09/23 08:28 Dose: 0.5 film Documented By: AMELIA Calcium Carbonate (Calcium Carbonate 750 Mg Tab.Chew) 750 mg PO Q4H PRN PRN Reason: Heartburn Levalbuterol HCl 1.25 mg/ (Ipratropium [place] 0.5 mg) 0 mg INHALE RQ4H WHILE AWAKE PRN PRN Reason: Shortness of Breath/Wheezing Last Admin: 12/03/23 01:42 Dose: 5 dose Documented By: CHRISTOPHER Diltiazem HCl (Diltiazem Hcl Cd 300 Mg Cap.Er.24h) 300 mg PO DAILY [facility]; Protocol Last Admin: 12/09/23 08:28 Dose: 300 mg Documented By: AMELIA Docusate Sodium (Docusate Sodium 100 Mg Capsule) 100 mg PO BEDTIME PRN PRN Reason: stool softener Last Admin: 12/05/23 20:43 Dose: 100 mg Documented By: ANUPAMA-RIVLINETTE Folic Acid (Folic Acid 1 Mg Tablet) 1 mg PO DAILY [facility] Last Admin: 12/09/23 08:28 Dose: 1 mg Documented By: AMELIA Guaifenesin/Dextromethorphan (Guaifenesin Dm 100/10/5 Ml 5 Ml Syrup) 5 ml PO Q6H [facility] Last Admin: 12/09/23 11:43 Dose: Not Given Documented By: AMELIA Non-Admin Reason: Patient Refused Levothyroxine Sodium (Levothyroxine Sodium 25 Mcg Tablet) 25 mcg PO DAILY@0600 [facility] Last Admin: 12/09/23 05:52 Dose: 25 mcg Documented By: MAT Magnesium Hydroxide (Milk Of Magnesia 30 Ml Oral.Susp) 30 ml PO DAILY PRN PRN Reason: Constipation Melatonin (Melatonin 3 Mg Tablet) 6 mg PO BEDTIME PRN PRN Reason: Insomnia Last Admin: 12/06/23 22:13 Dose: 6 mg Documented By: VARINDER Metoprolol Succinate (Metoprolol Succinate Er 100 Mg Tab.Er.24h) 100 mg PO DAILY [facility]; Protocol Last Admin: 12/09/23 08:27 Dose: 100 mg Documented By: AMELIA Nicotine (Nicotine 21 Mg Patch.Td24) 21 mg TRANSDERMA DAILY [facility] Last Admin: 12/09/23 08:29 Dose: Not Given Documented By: AMELIA Non-Admin Reason: Patient Refused Nystatin (Nystatin Powder 15 Gm Bottle) 1 appl TOPICAL BID [facility]; Protocol Last Admin: 12/09/23 08:29 Dose: 1 appl Documented By: AMELIA Omeprazole (Omeprazole 20 Mg Capsule.) 20 mg PO DAILY@0630 [facility] Last Admin: 12/09/23 05:52 Dose: 20 mg Documented By: MAT Ondansetron HCl (Ondansetron Hcl 4 Mg/2 Ml Vial) 4 mg IVPUSH Q8H PRN PRN Reason: Nausea and Vomiting Last Admin: 12/07/23 23:16 Dose: 4 mg Documented By: VARINDER Paroxetine HCl (Paroxetine Hcl 40 Mg Tablet) 40 mg PO BID [facility] Last Admin: 12/09/23 08:28 Dose: 40 mg Documented By: AMELIA Potassium Chloride (Potassium Chloride Er 20 Meq Tab.Er.Prt) 20 meq PO DAILY [facility] Last Admin: 12/09/23 08:28 Dose: 20 meq Documented By: AMELIA Sodium Chloride (0.9 % Sodium Chloride Flush 3 Ml Syringe) 3 ml IVFLUSH QSHIFT [facility] Last Admin: 12/09/23 08:28 Dose: 3 ml Documented By: AMELIA Theophylline (Theophylline Anhydrous Er 400 Mg Tab.Er.24h) 400 mg PO DAILY [facility] Last Admin: 12/09/23 08:28 Dose: 400 mg Documented By: AMELIA Labs 12/09/23 08:03 12/09/23 08:03 Labs: Laboratory Results - last 24 hr 12/09/23 08:03 MCV 91.0 MCH 29.6 MCHC 32.6 RDW 15.9 Plt Count 174 MPV 9.9 Absolute Nucleated RBC 0.020 H Nucleated RBC % (auto) 0.5 H Anion Gap 16 Estim Creat Clear Calc 51.9 Estimated GFR 41 Random Glucose 99 Calcium 9.6 Magnesium 1.7 B-Natriuretic Peptide 261 H Assessment and Plan (1) Atrial fibrillation with RVR: Status: Acute Plan d9 63yo F with NSCLC s/p LITA + RUL wedge resections with 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 currently on palliative chemotherapy, hx breast CA, HCV, depression, HTN, COPD on 3L home O2, opioid dependence, pAF not previous ly on AC due to anemia/thrombocytopenia presenting with dyspnea, admitted for AF/RVR has now developed BRBPR hematochezia - hold apixaban, monitor H+H; sigmoidoscopy today AF/RVR - weaned from diltiazem drip, diltiazem CD dose increased from 180 to 300 mg/d; continue metoprolol succinate 100 mg daily - apixaban held as above acute/chronic HFpEF - improved, transitioned to oral furosemide hypoK - repleted hypoMg - repleted acute-chronic hypoxic resp failure - acute componenet resolved, now on baseline 3L; continue Trelegy, ipratropium/levalbuterol, theophylline HLD - statin opioid dependence - Suboxone lung CA - on chemotherapy; f/u with Dr Samuels mood disorder - paroxetine VTE ppx - apixaban on hold; place SCDs dispo - eventual home In my clinical judgment, the patient requires continued inpatient hospitalization for the following reasons: BRBPR Total time managing care of this patient today: 35 minutes. Quality Stroke Does the patient have a stroke diagnosis?: No VTE Prior VTE?: No VTE Risk Level:: Medical - moderate - high VTE Device Contraindication: Treatment Not Indicated VTE Drug Contraindication: N/A - Med Ordered
--- NOTE | 2023-12-09 15:25 | MHC.CM.PN ---
Pt is medically cleared for discharge home with new [facility] services, pt has her own transportation home.
[2023-12-09] MEDS: guaiFENesin DM 100/10/5 ML 5 ML SYRUP PO (16:28)
[2023-12-09] MEDS: Enoxaparin Sodium 100 MG/ML SYRINGE 90 MG SUBCUT (18:00)
[2023-12-09] MEDS: Atorvastatin Calcium 10 MG TABLET PO (20:18)
[2023-12-10] MEDS: 0.9 % Sodium Chloride Flush 3 ML SYRINGE IVFLUSH ×2 (00:33→09:11)
[2023-12-10] MEDS: Acetaminophen 325 MG TABLET 650 MG PO (02:10)
[2023-12-10 03:58] VITALS: BP 100/78; PULSE 71; RESP 18; TEMP 36.1; O2SAT 96
[2023-12-10] MEDS: Enoxaparin Sodium 100 MG/ML SYRINGE 90 MG SUBCUT (05:53)
[2023-12-10] MEDS: Omeprazole 20 MG CAPSULE.DR PO (05:54)
[2023-12-10] MEDS: Levothyroxine Sodium 25 MCG TABLET PO (05:54)
[2023-12-10 07:26] LABS: Hematocrit 28.1 % (37.0-47.0); Hemoglobin 8.9 g/dl (12.0-16.0)
[2023-12-10 08:00] VITALS: BP 103/63; PULSE 88; RESP 20; TEMP 36.1; O2SAT 98
[2023-12-10] MEDS: Metoprolol Succinate ER 100 MG TAB.ER.24H PO (09:10)
[2023-12-10] MEDS: Potassium Chloride ER 20 MEQ TAB.ER.PRT PO (09:10)
[2023-12-10] MEDS: Buprenorphine/Naloxone 2/0.5mg FILM 0.5 FILM SUBLINGUAL (09:11)
[2023-12-10] MEDS: Folic Acid 1 MG TABLET PO (09:11)
[2023-12-10] MEDS: Theophylline Anhydrous ER 400 MG TAB.ER.24H PO (09:11)
[2023-12-10] MEDS: dilTIAZem HCL CD 300 MG CAP.ER.24H PO (09:11)
[2023-12-10] MEDS: PARoxetine HCL 40 MG TABLET PO (09:11)
[2023-12-10] MEDS: Nystatin Powder 15 GM BOTTLE 1 APPL TOPICAL (09:12)
--- NOTE | 2023-12-10 09:28 | HO.POSTANES ---
Post Anesthesia Evaluation Post Anesthesia Evaluation Date of Service: 12/09/23 Vital Signs: Vital Signs Temp Pulse Resp BP Pulse Ox O2 Del Method O2 Flow Rate 12/10/23 08:00 96.9 F 88 20 103/63 98 Nasal Cannula 3 12/10/23 03:58 97 F 71 18 100/78 96 Nasal Cannula 3 12/09/23 23:37 97.2 F 82 18 120/59 L 92 Nasal Cannula 3 Anesthesia: Monitored Mental Status: Awake Pain Control: Satisfactory Nausea/Vomiting: None Hydration: Adequate Anesthesia-Related Issues: No Anes. Related Issues
[2023-12-10 11:42] VITALS: BP 110/70; PULSE 88; RESP 19; TEMP 36.2; O2SAT 98
--- NOTE | 2023-12-10 12:09 | MHC.CM.PN ---
PT MEDICALLY CLEARED FOR DC HOME W/NEW [facility] FOR SN/PT, PT WILL CALL [facility] FOR TRANSPORT
== END 2023-12-10 13:23 | disposition home health service (06) | DRG 201 ==
LOC: HO.ED 07:50 → HO.EDOVER 13:17 → HO.IMC 23:53
PROVIDERS: Family Medicine; Internal Medicine; Physician Assistant; Student in an Organized Health Care Education/Training Program; Admitting Provider Student in an Organized Health Care Education/Training Program; Emergency Provider Emergency Medicine; PCP Pediatrics; Referring Provider Pediatrics; Visit Provider Family Medicine
PROC: 0DJD8ZZ Inspection of Lower Intestinal Tract, Via Natural or Artificial Opening Endoscopic (ICD-10-PCS; CPT 45330; principal; 2023-12-09 13:00)
DX: I48.0 Paroxysmal atrial fibrillation (principal); J96.21 Acute and chronic respiratory failure with hypoxia; C79.51 Secondary malignant neoplasm of bone; C34.11 Malignant neoplasm of upper lobe, right bronchus or lung; C34.12 Malignant neoplasm of upper lobe, left bronchus or lung; D63.0 Anemia in neoplastic disease; J44.9 Chronic obstructive pulmonary disease, unspecified; C78.7 Secondary malignant neoplasm of liver and intrahepatic bile duct; E87.6 Hypokalemia; C79.31 Secondary malignant neoplasm of brain; F39 Unspecified mood [affective] disorder; K62.5 Hemorrhage of anus and rectum; K64.8 Other hemorrhoids; E78.5 Hyperlipidemia, unspecified; K64.4 Residual hemorrhoidal skin tags; F11.20 Opioid dependence, uncomplicated; E83.42 Hypomagnesemia; Z90.2 Acquired absence of lung [part of]; Z99.81 Dependence on supplemental oxygen; Z85.3 Personal history of malignant neoplasm of breast; Z86.19 Personal history of other infectious and parasitic diseases; Z87.891 Personal history of nicotine dependence; Z20.822 Contact with and (suspected) exposure to COVID-19; Z79.890 Hormone replacement therapy; Z79.899 Other long term (current) drug therapy
CPT/HCPCS: 0241U; 36415; 71045; 80048; 80076; 81001; 82803; 83605; 83735; 83880; 84145; 84484; 85014; 85018; 85025; 85027; 87040; 92950; 93005; 94640; 97161; 99285; J1650; J1940; J2405; J2704; J2919; J3475

== ENCOUNTER → 2023-12-01 13:08 | Outpatient (BNV) | payer MEDICAID, SELFPAY | PROVIDERS: Admitting Provider Student in an Organized Health Care Education/Training Program; Emergency Provider Emergency Medicine; PCP Pediatrics; Visit Provider Internal Medicine Cardiovascular Disease | DX: I48.91 Unspecified atrial fibrillation (principal) | CPT/HCPCS: 99223; 99232; 99233 ==

== ENCOUNTER → 2023-12-01 13:08 | Outpatient (BNV) | payer MEDICAID, SELFPAY | PROVIDERS: Admitting Provider Student in an Organized Health Care Education/Training Program; Emergency Provider Emergency Medicine; PCP Pediatrics; Visit Provider Internal Medicine | DX: D64.9 Anemia, unspecified (principal); I48.91 Unspecified atrial fibrillation; K92.2 Gastrointestinal hemorrhage, unspecified | CPT/HCPCS: 45330; 99222 ==

== ENCOUNTER → 2023-12-01 13:08 | Outpatient (BNV) | payer MEDICAID, SELFPAY | PROVIDERS: Admitting Provider Student in an Organized Health Care Education/Training Program; Emergency Provider Emergency Medicine; PCP Pediatrics; Visit Provider Student in an Organized Health Care Education/Training Program | DX: D64.9 Anemia, unspecified (principal); I48.91 Unspecified atrial fibrillation; K92.2 Gastrointestinal hemorrhage, unspecified; K64.8 Other hemorrhoids | CPT/HCPCS: 99223; 99232; 99233; 99239; G0180 ==

== ENCOUNTER 2023-12-21 10:15 | Outpatient (REF) | payer MEDICAID, SELFPAY ==
[2023-12-21 13:04] LABS: MANUAL DIFF FLAG NO
[2023-12-21 13:28] LABS: Basophils Percent Auto 0.3 % (0-2); Eosinophils Absolute Auto 0.3 X10*3/uL (0.0-0.4); Eosinophils Percent Auto 2.3 % (0-4); Hematocrit 32.8 % (37.0-47.0); Hemoglobin 10.4 g/dl (12.0-16.0); Imm Gran Abs Auto 0.15 X10*3/uL (0.00-0.03); Imm Gran Pct Auto 1.3 % (0.0-0.4); Lymphocytes Absolute Auto 2.5 X10*3/uL (1.2-4.9); Lymphocytes Percent Auto 21.5 % (20-40); Mean Corpuscular HGB Conc 31.7 g/dl (31.0-35.0); Mean Corpuscular Hemoglobin 29.7 pg (27.0-33.0); Mean Corpuscular Volume 93.7 fL (80.0-98.0); Mean Platelet Volume 10.4 fL (9.4-12.3); Monocytes Absolute Auto 0.5 X10*3/uL (0.1-1.2); Monocytes Percent Auto 4.2 % (2-11); NRBC Pct Auto 0.2 /100WBC (0.0-0.2); Neutrophils Absolute Auto 8.3 x10*3/uL (2.0-8.3); Neutrophils Percent Auto 70.4 % (45-73); Platelet Count 270 X10*3/uL (160-400); Red Cell Distribution Width 17.3 % (11.0-16.0); White Blood Count 11.7 X10*3/uL (4.8-10.8)
== END 2023-12-21 10:16 | disposition home or self-care (01) ==
LOC: HO.HVNA 10:15
PROVIDERS: PCP Pediatrics; Visit Provider Internal Medicine
DX: C34.91 Malignant neoplasm of unspecified part of right bronchus or lung (principal); D63.0 Anemia in neoplastic disease; I48.0 Paroxysmal atrial fibrillation; I50.32 Chronic diastolic (congestive) heart failure
CPT/HCPCS: 36415; 85025

== ENCOUNTER 2024-01-19 14:08 | Inpatient (IN) | payer MEDICAID, SELFPAY ==
[2024-01-19] VITALS (10 sets, daily range): BP systolic 105–156; BP diastolic 74–112; PULSE 102–153; RESP 17–28; TEMP 36.6–36.9; O2SAT 94–100; BMI 31.4; BMI 33.0
--- NOTE | ~2024-01-19 | XR_ITS ---
EXAMINATION: XR CHEST 1 VIEW CLINICAL INFORMATION: hypoxia COMPARISON: January 19, 2024 TECHNIQUE: Single portable frontal view. Tubes and lines: None Lungs and pleura: Newly developed reticular opacification consolidation left upper lobe, presumably pneumonia. There are bilateral subpulmonic pleural effusions right more than left. Heart and mediastinum: Unchanged.. Bones/soft tissue: Hardware fusion lower cervical spine, mild degenerative arthritis AC joints. XR/XR chest 1V IMPRESSION: 1. Newly developed reticular opacification consolidation left upper lobe, presumably pneumonia. 2. Bilateral subpulmonic pleural effusions right more than left. Electronically signed by: Agus Thorne MD 01/22/2024 08:52 AM EDT
--- NOTE | ~2024-01-19 | CT_ITS ---
EXAMINATION: CT CHEST WITHOUT CONTRAST CLINICAL INFORMATION: Hemoptysis. History of lung cancer. COMPARISON: CT scans of the chest dating between November 03, 2023 and August 25, 2009. TECHNIQUE: Multidetector volumetric CT imaging of the chest was done. Axial MIP volume rendering provided. Sagittal and coronal reformatted images were obtained. This CT examination was performed using dose optimization techniques as appropriate, variously including the following: *Automated exposure control *Adjustment of mA and/or kV according to patient size (this includes techniques or standardized protocols for targeted exams where dose is matched to indication/reason for exam; i.e. extremities or head) *Use of iterative reconstruction technique DLP: 360 mGy-cm FINDINGS: LUNGS/PLEURA: Evidence of right upper lobectomy, unchanged. Postsurgical changes involving the lingula, possibly related to wedge resection, unchanged. Mild to moderate emphysema. Left upper lobe interstitial prominence and groundglass density with associated traction bronchiectasis, honeycombing, and/or emphysema, significantly worse compared with most recent prior study dated November 03, 2023. Right lower lobe stellate density suggesting fibrotic streaks, atelectasis, and/or neoplasm (image 336, series 5), unchanged. Right middle lobe cystic, atelectasis or bulla in the region of surgical luba (image 199, series 5), unchanged. Small to moderate amount of left pleural fluid with probable mild diffuse pleural thickening, similar compared with November 03, 2023. Left basilar airspace disease suggesting atelectasis, fibrotic streaks, and/or infiltrate, not significant changed. Suspect mild right pleural thickening, unchanged. Diffuse bronchial wall thickening. Patent central bronchi. MEDIASTINUM: Heart appears normal in size. Calcification of the aortic valve. No pericardial effusion. Unremarkable appearance of the thyroid. No evidence of adenopathy by size criteria. CORONARY ARTERY CALCIFICATION: Mild. CHEST WALL/AXILLA: No lymphadenopathy by size criteria. Asymmetry of the breast tissues. Dystrophic calcification associated with architectural distortion right breast, possibly postsurgical or posttraumatic. UPPER ABDOMEN: 1.3 cm benign right adrenal adenoma. OSSEOUS STRUCTURES: Mixed lytic and sclerotic lesions scattered throughout the skeleton suspicious for metastatic disease, grossly similar compared with most recent prior study from November 02, 2021. Moderate compression deformity of T6 and mild compression deformity of T7, unchanged as well. Mild osteoarthritis of the right glenohumeral joint. Left glenohumeral joint is not imaged. Partially imaged lower cervical anterior fixation plate and screws. CT/CT chest wo IV con IMPRESSION: Left upper lobe interstitial prominence and groundglass density with associated traction bronchiectasis, honeycombing, and/or emphysema, significantly worse compared with most recent prior study dated November 03, 2023. Multiple additional findings as detailed above, not significantly changed compared with November 03, 2023. Electronically signed by: Rigo Johnson MD 01/23/2024 03:42 PM EDT
--- NOTE | ~2024-01-19 | XR_ITS ---
EXAMINATION: XR CHEST CLINICAL INFORMATION: Dyspnea. COMPARISON: Chest x-ray dated December 01, 2023. CT scan dated November 03, 2023. TECHNIQUE: Portable AP view of the chest was obtained. FINDINGS: The study is limited by portable technique, suboptimal inspiration, and the lower lung greer being cut off the image. Examination demonstrates bibasilar hazy and patchy densities, small on the right and small to moderate on the left, suggesting pleural fluid, pleural thickening, atelectasis, fibrotic streaks, and/or infiltrates, grossly similar compared with December 01, 2023. No pneumothorax is seen. The correct silhouette is suboptimally evaluated. No adenopathy is seen. Mild degenerative changes of the spine and shoulders. Lower cervical/upper thoracic anterior fixation plate and screws. No gross evidence of hardware fracture. XR/XR chest 1V IMPRESSION: Findings as above. Electronically signed by: Rigo Johnson MD 01/19/2024 04:58 PM EDT
--- NOTE | ~2024-01-19 | XR_ITS ---
EXAMINATION: XR CHEST CLINICAL INFORMATION: Follow-up hypoglycemia COMPARISON: CT chest 01/23/2024 and chest x-ray 01/22/2024 TECHNIQUE: Frontal view of the chest was obtained. FINDINGS: There is moderate left pleural effusion with underlying atelectasis. Previously seen airspace opacity in left upper lobe has significantly improved. The right lung is expanded and clear. Heart size is borderline normal. No gross bony abnormality seen. XR/XR chest 1V IMPRESSION: 1. Moderate left pleural effusion with underlying atelectasis. 2. Previously seen airspace opacity in left upper lobe has significantly improved. Electronically signed by: Kit Schmidt MD 01/27/2024 07:47 PM EDT RP
--- NOTE | 2024-01-19 14:27 | ECG_ITS ---
Test Reason : SOB Blood Pressure : / mmHG Vent. Rate : 126 BPM Atrial Rate : 000 BPM P-R Int : 000 ms QRS Dur : 070 ms QT Int : 296 ms P-R-T Axes : 000 034 -02 degrees QTc Int : 428 ms Poor data quality Atrial fibrillation with rapid ventricular response with premature ventricular or aberrantly conducted complexes Low voltage QRS Nonspecific ST and T wave abnormality Abnormal ECG When compared with ECG of 01-DEC-2023 06:35, Nonspecific T wave abnormality now evident in Inferior leads Referred By: Stephanie Somers Electronically Signed By:LISY HESTER MD
[2024-01-19] MEDS: Acetaminophen 325 MG TABLET 650 MG PO (15:08)
[2024-01-19] MEDS: Magnesium Sulfate/H2O 2 GM/50 ML PIGGYBACK IV (15:08)
[2024-01-19] MEDS: cefEPime HCl 1 GM in 0.9 % Sodium Chloride 50 ML IV (15:09)
[2024-01-19 15:10] LABS: MANUAL DIFF FLAG NO
[2024-01-19 15:12] LABS: Venous Blood Gas Refer to POC result
[2024-01-19 15:14] LABS: VBG HCO3 33 mmol/L (22-26); VBG pCO2 47 mmHg; VBG pH 7.45 (7.32-7.43); VBG pO2 84 mmHg
[2024-01-19 15:16] LABS: Basophils Absolute Auto 0.1 X10*3/uL (0.0-0.2); Basophils Percent Auto 0.6 % (0-2); Eosinophils Percent Auto 0.2 % (0-4); Hematocrit 33.1 % (37.0-47.0); Hemoglobin 10.9 g/dl (12.0-16.0); Imm Gran Abs Auto 0.04 X10*3/uL (0.00-0.03); Imm Gran Pct Auto 0.5 % (0.0-0.4); Lymphocytes Percent Auto 22.2 % (20-40); Mean Corpuscular HGB Conc 32.9 g/dl (31.0-35.0); Mean Corpuscular Hemoglobin 30.2 pg (27.0-33.0); Mean Corpuscular Volume 91.7 fL (80.0-98.0); Mean Platelet Volume 9.7 fL (9.4-12.3); Monocytes Absolute Auto 0.7 X10*3/uL (0.1-1.2); Monocytes Percent Auto 7.3 % (2-11); Neutrophils Absolute Auto 6.1 x10*3/uL (2.0-8.3); Neutrophils Percent Auto 69.2 % (45-73); Platelet Count 240 X10*3/uL (160-400); Red Blood Count 3.61 X10*6/uL (4.20-5.50); Red Cell Distribution Width 14.4 % (11.0-16.0); White Blood Count 8.9 X10*3/uL (4.8-10.8)
--- NOTE | 2024-01-19 15:19 | ED.SOB ---
HPI - SOB/Dyspnea General Chief Complaint: Upper Respiratory Symptoms Stated Complaint: SOB,HOT TO TOUCH,HX LUNG CA,ALB & SWEETIE GIVEN BY EMS Time Seen by Provider: 01/19/24 14:15 Source: patient, EMS and old records reviewed Mode of arrival: EMS Limitations: no limitations History of Present Illness ED Provider: KAVIN HPI Narrative: 63 yo female with PMH of COPD on 2L NC, pleural effusions, CHF, PAF on eliquis, GIB in setting of internal hemorrhoids, renal insufficiency, hypothyroidism, bilateral lung adenocarcinoma with recurrence found to have mets to lung, bone mets still on chemo through Dr. Samuels with most recent infusion 2 weeks ago - pembrolizumab. She had PET-CT scan done August 2023 no bony mets noted and unchanged RLL lesion. She presents here todya with c/o shortness of breath, cough, feeling tired and weak with sputum production but no fevers x 2 days. Today it became much worse with getting up. No chest pain. She states she had to put her O2 up to 4L today. She notes that she takes all of her medications as prescribed unless her doctor needs to refill them. MD elicited complaint: shortness of breath and cough Pertinent past history: COPD, asthma, congestive heart failure and other (lung cancer) Onset (ago): day(s) (2) Context: occurred during exertion Timing: progressively worsening Severity: severe Exacerbating factors: movement and coughing Relieving factors: rest, bronchodilators and upright position Known history of: COPD and congestive heart failure Associated symptoms: cough, wheezing and sputum production Treatment prior to arrival: oxygen, bronchodilator and other (IV solumedrol 125mg) Related Data Home Medications ?Medication ?Instructions ?Recorded ?Confirmed milnacipran 50 mg tablet (Savella) 50 mg PO BID 01/18/22 12/01/23 omeprazole 20 mg capsule,delayed 20 mg PO DAILY@0630 01/18/22 12/01/23 release paroxetine HCl 20 mg tablet 40 mg PO BID 01/18/22 12/01/23 simvastatin 20 mg tablet 20 mg PO BEDTIME 02/17/22 12/01/23 albuterol sulfate 90 mcg/actuation 2 puff inhalation Q6H PRN sob 06/22/23 12/01/23 aerosol inhaler (Ventolin HFA) buprenorphine 2 mg-naloxone 0.5 mg 0.5 - 1 film sublingual DAILY 07/09/23 12/01/23 sublingual film (Suboxone) docusate sodium 100 mg capsule 100 mg PO BEDTIME PRN stool 07/09/23 12/01/23 softener umeclidinium 62.5 mcg-vilanterol 1 inh inhalation DAILY 07/09/23 12/01/23 25 mcg/actuation powdr for inhalation (Anoro Ellipta) ipratropium 0.5 mg-albuterol 3 mg 3 ml inhalation Q6H PRN wheezing 10/18/23 12/01/23 (2.5 mg base)/3 mL nebulization soln acetaminophen 500 mg tablet 500 mg PO DAILY PRN Pain 11/03/23 12/01/23 Previous Rx's ?Medication ?Instructions ?Recorded folic acid 1 mg tablet 1 mg PO DAILY #90 tabs 10/04/23 apixaban 5 mg tablet (Eliquis) 5 mg PO BID #60 tabs 12/09/23 diltiazem HCl 300 mg 300 mg PO DAILY #30 caps 12/09/23 capsule,extended release 24 hr furosemide 40 mg tablet 40 mg PO QAM #30 tabs 12/09/23 furosemide 40 mg tablet 40 mg PO QAM #30 tabs 12/09/23 metoprolol succinate 100 mg 100 mg PO DAILY #30 tabs 12/09/23 tablet,extended release 24 hr nicotine 21 mg/24 hr daily 21 mg transdermal DAILY #30 ea 12/09/23 transdermal patch theophylline 400 mg 400 mg PO DAILY #30 tabs 01/03/24 tablet,extended release 24 hr levothyroxine 25 mcg tablet 25 mcg PO DAILY@0600 01/10/24 (Synthroid) potassium chloride 20 mEq 20 meq PO DAILY #30 tabs 01/14/24 tablet,extended release (K-Tab) Allergies Allergy/AdvReac Type Severity Reaction Status Date / Time lisinopril [LISINOPRIL] Allergy Severe SWELLING- Verified 01/19/24 14:21 ANGIOEDEMA codeine [CODEINE] Allergy Intermediate VOMITING/HIVES, Verified 01/19/24 14:21 vomiting, hives Review of Systems Review of Systems: Constitutional : No Fever, pos Chills ENT/Mouth : No Hoarseness, No sore throat, No Rhinorrhea Eyes: No Redness, No Discharge, No Vision Changes Cardiovascular : No Chest Pain, positive SOB, positive Dyspnea on Exertion, No Edema Respiratory : positive Cough, pos Sputum, positive Wheezing, Gastrointestinal : No Nausea, No Vomiting, No Diarrhea, No abdominal Pain Genitourinary : No Dysuria, No Hematuria Musculoskeletal : No joint pain, No Myalgias Skin : No rash Neuro : No Weakness, No Numbness, No Headache Psych : No anxiety, depression All other systems reviewed and are negative PMFSH Past Medical History Attestation statement: The following information was validated with the patient. Source: old records reviewed Medical History Lung cancer Pancytopenia New onset a-fib Cancer of upper lobe of left lung (~2020) Bilateral lung cancer Obesity History of hepatitis C Smoker Tubular adenoma of colon Pulmonary nodules History of breast cancer (~2006) Internal and external bleeding hemorrhoids Cancer of upper lobe of right lung (~2019) GERD (gastroesophageal reflux disease) Depression COPD (chronic obstructive pulmonary disease) HTN (hypertension) Surgical History History of lung surgery (~2020) History of anterior colporrhaphy (~2016) History of tubal ligation History of lumpectomy of right breast (~2006) History of colonoscopy (~2014) History of hemorrhoidectomy (~2019) History of back surgery (~2011) History of lobectomy of lung (~2019) Family History Family History Mother History of lung cancer Brother History of lung cancer Maternal Grandmother Breast cancer in female Maternal Aunt Breast cancer in female Daughter Thyroid cancer Social History Social History Household Members: Significant Other Household Members Other:: 2 Housing: House Are you a primary urgent care technician to a significant other at home: No Do you presently have visiting nurse or other home services: No Unable to assess alcohol history related to: Unable to respond Alcohol intake: never Comment: rings appropriately Patient Tobacco Use Status: Former Tobacco user Tobacco use type: Cigarette Cigarette Packs Per Day: 1 Cigarettes Per Day: 10 Years Smoked: 50 Second Hand Smoke Exposure: Yes Substance Use Type: Marijuana Advance Directives: Yes Advance Directives on File: Yes Advance Directives Date on File: 02/02/22 service: No Current occupational status: disabled Current occupational exposures/hazards: No Physical Exam Vital Signs: Vital Signs: Last Vital Signs Temp 98.2 F 01/19/24 15:53 Pulse 130 H 01/19/24 16:17 Resp 28 H 01/19/24 16:17 BP 147/92 H 01/19/24 15:53 Pulse Ox 95 01/19/24 15:53 O2 Del Method Nasal Cannula 01/19/24 15:53 O2 Flow Rate 4 01/19/24 15:53 Oxygen Flow Rate 4 01/19/24 14:18 BMI result Body Mass Index 31.4 Appearance: Alert. Oriented X3. Mild acute distress. Eyes: Pupils equal, round and reactive to light. ENT: Pharynx normal. Neck: Normal inspection. Neck supple. CVS: irregular tachycardic heart rate and rhythm. Pulses normal. Respiratory: Mild respiratory distress - tachypnea. Breath sounds wheezes exp and both bases diminished Abdomen: Soft and nontender. Skin: Skin warm and dry. pale skin color. Normal skin turgor. Extremities: No lower extremity edema. No calf ttp Neuro: Oriented X 3. No motor deficit. No sensory deficit. Course Course Course Narrative: signed out to MATTI Mcdonald pending repeat lactic acidosis hospitalist vito CHINO to follow up on repeat lactic acid Medications Administered Generic Name Dose Route Start Last Admin Trade Name Freq PRN Reason Stop Dose Admin Sodium Chloride 250 mls @ 250 mls/hr 01/19/24 15:32 01/19/24 15:56 Ns IV 01/19/24 16:31 250 mls/hr .Q1H ONE Administration Albumin Human 100 mls @ 133.333 mls/hr 01/19/24 15:45 01/19/24 15:56 Kedbumin 25 % IV 01/19/24 17:29 133.33 mls/hr Q1H WALTER Administration Discontinued Medications Generic Name Dose Route Start Last Admin Trade Name Freq PRN Reason Stop Dose Admin Acetaminophen 650 mg 01/19/24 14:43 01/19/24 15:08 Acetaminophen 325 Mg Tablet PO 01/19/24 14:44 650 mg ONCE ONE Administration Levalbuterol HCl 5 mg/ 0 mg 01/19/24 16:17 01/19/24 16:20 Ipratropium [place] 0.5 mg INHALE 01/19/24 16:18 1 dose ONCE ONE Administration Magnesium Sulfate 2 gm in 50 mls @ 25 mls/hr 01/19/24 14:27 01/19/24 15:27 Magnesium Sulfate/H2o IV 01/19/24 16:26 Infused ONCE ONE Infusion Cefepime HCl 1 gm/ Sodium 50 mls @ 100 mls/hr 01/19/24 14:27 01/19/24 15:09 Chloride IV 01/19/24 14:56 100 mls/hr ONCE ONE Administration Potassium Chloride 20 meq 01/19/24 15:57 01/19/24 16:06 Potassium Chloride Er 20 Meq Tab.Er.Prt PO 01/19/24 15:58 20 meq ONCE ONE Administration Medical Decision Making Medical Decision Making [facility] Narrative: 63 yo female with PMH of COPD on 2L NC, pleural effusions, CHF, PAF on eliquis, GIB in setting of internal hemorrhoids, renal insufficiency, hypothyroidism, bilateral lung adenocarcinoma with recurrence currently on chemo through [facility] now here with 2 days of cough, sputum production she reports she is taking her eliquis - at this time labs, cultures, lactic acid, IV dilt low dose for afib, tylenol, empiric cefepime. Differential Diagnosis Differential Diagnoses: The differential diagnosis associated with the presentation includes CHF, afib with RVR, pneumonia, effusion Admission/Observation Consideration of admission/observation: Escalation of care including admission/observation considered admit given afib with RVR low K/mag pleural effusions hx of same in past BNP at her baseline H/H stable WBC count stable VBG stable lactic acidosis likely due to nebs Consult Healthcare Provider Management of the patient was discussed with: Hospitalist (will admit) Lab Data [facility] Lab Attestation statement: I reviewed the patient's lab results. 01/19/24 15:02 01/19/24 15:02 Labs: Lab Results 01/19/24 01/19/24 Range/Units 15:02 15:08 WBC 8.9 (4.8-10.8) X10*3/uL RBC 3.61 L (4.20-5.50) X10*6/uL Hgb 10.9 L (12.0-16.0) g/dl Hct 33.1 L (37.0-47.0) % MCV 91.7 (80.0-98.0) fL MCH 30.2 (27.0-33.0) pg MCHC 32.9 (31.0-35.0) g/dl RDW 14.4 (11.0-16.0) % Plt Count 240 (160-400) X10*3/uL MPV 9.7 (9.4-12.3) fL Immature Gran % (Auto) 0.5 H (0.0-0.4) % Neut % (Auto) 69.2 (45-73) % Lymph % (Auto) 22.2 (20-40) % [place] % (Auto) 7.3 (2-11) % Eos % (Auto) 0.2 (0-4) % Baso % (Auto) 0.6 (0-2) % Lymph # (Auto) 2.0 (1.2-4.9) X10*3/uL [place] # (Auto) 0.7 (0.1-1.2) X10*3/uL Eos # (Auto) 0.0 (0.0-0.4) X10*3/uL Baso # (Auto) 0.1 (0.0-0.2) X10*3/uL Abs Immat Gran (auto) 0.04 H (0.00-0.03) X10*3/uL Absolute Neuts (auto) 6.1 (2.0-8.3) x10*3/uL Absolute Nucleated RBC 0.000 (0.0-0.012) X10*3/uL Nucleated RBC % (auto) 0.0 (0.0-0.2) /100WBC VBG pH 7.45 H (7.32-7.43) VBG pCO2 47 mmHg VBG pO2 84 mmHg VBG HCO3 33 H (22-26) mmol/L VBG O2 Saturation 96.0 % VBG Base Excess 8.0 mmol/L Sodium 141 (135-145) mmol/L Potassium 3.0 L (3.3-5.1) mmol/L Chloride 98 (96-108) mmol/L Carbon Dioxide 31 H (22-29) mmol/L Anion Gap 15 (12-20) BUN 14 (9-16) mg/dL Creatinine 1.08 (0.5-1.4) mg/dL Estim Creat Clear Calc 61.7 Estimated GFR 51 Random Glucose 194 H (60-115) mg/dL Lactic Acid 3.9 H* (0.5-2.0) mmol/L Calcium 9.8 (8.4-10.2) mg/dL Magnesium 1.5 L (1.6-2.6) mg/dL Total Bilirubin 0.4 (0.0-1.0) mg/dL Direct Bilirubin 0.2 (0.0-0.5) mg/dL AST 12 (5-31) U/L ALT 9 (0-31) U/L Alkaline Phosphatase 68 (39-117) U/L Troponin I High Sens 20.8 H (<3.5-17.0) ng/L C-Reactive Protein 7.20 H (< or = 0.50) mg/dL B-Natriuretic Peptide 272 H (<100) pg/mL Total Protein 7.1 (6.5-8.0) g/dL Albumin 3.8 (3.5-5.0) g/dL Lipase 39 (8-78) U/L Procalcitonin 0.03 ng/mL Influenza Type A (PCR) NEGATIVE (Negative) Influenza Type B (PCR) NEGATIVE (Negative) RSV RNA Qual (PCR) NEGATIVE (Negative) SARS-CoV-2 RNA (RT-PCR) NEGATIVE (Negative) Independent Interpretation I performed an independent interpretation of an: EKG and Plain X-Ray (bilateral effusions) Interpretation: Rate: 126 Rhythm: afib with RVR and PVCs [place]: normal Normal P waves. Normal DARLIN. Normal QRS complex. ST T wave : nonspecific ST T wave changes anterior leads qTC: 428 prior studies: afib with RVR The study has been interpreted contemporaneously by me. . Radiology Impression Discussion of test interpretation with radiology: I have reviewed the radiologist's reading. Independent Historian Clinical information obtained from an independent historian. History obtained from or confirmed by: EMS External Record Review External record reviewed: Inpatient record and Office record Critical Care Time Critical Care Time Critical Care Time: Yes Total Critical Care Time: 60 Attestation: repeat nebs, IV magnesium, IV potassium, review of records, dilt gtt and dilt bolus for afib with RVR I attest to this time spent taking care of the patient Discharge Plan Discharge Clinical Impression: Atrial fibrillation with rapid ventricular response, Pleural effusion, Acute hypokalemia, Hypomagnesemia, Acidosis, lactic Patient Disposition: Admitted As Inpatient Print Language: [place] Sepsis Bolus Exclusion Sepsis Bolus Exclusion CHF/Renal Failure This patient met severe sepsis criteria due to the following condition(s):: Lactate>=4mmol/L In my clinical judgement the administration of 30 ml/kg of crystalloid would be detrimental to this patient due to the patient's following conditions:: NYHA class III or IV Heart Failure(symptoms with low exertion or rest) and Concern for fluid overload Replace the 30 mls/kg with (Zero amount not acceptable and all fluids for severe sepsis must be given at GREATER than 125 mls/hr) Crystalloids amount given in mls: (rate must be at least 150cc/hr): 250 Colloids amount given in mls:: 200
[2024-01-19 15:34] LABS: Lactic Acid 3.9 mmol/L (0.5-2.0)
[2024-01-19 15:35] LABS: B Type Natriuretic Peptide 272 pg/mL (<100)
[2024-01-19 15:38] LABS: Alanine Aminotransferase 9 U/L (0-31); Albumin Level 3.8 g/dL (3.5-5.0); Alkaline Phosphatase 68 U/L (39-117); Anion Gap 15 (12-20); Aspartate Amino Transferase 12 U/L (5-31); Bilirubin Direct 0.2 mg/dL (0.0-0.5); Bilirubin Total 0.4 mg/dL (0.0-1.0); Blood Urea Nitrogen 14 mg/dL (9-16); Calcium 9.8 mg/dL (8.4-10.2); Carbon Dioxide 31 mmol/L (22-29); Chloride 98 mmol/L (96-108); Creatinine Clr Calc Pharmacy 61.7; Estimated Glomerular Filt Rate 51; Glucose Random 194 mg/dL (60-115); Lipase 39 U/L (8-78); Magnesium 1.5 mg/dL (1.6-2.6); Sodium 141 mmol/L (135-145); Total Protein 7.1 g/dL (6.5-8.0)
[2024-01-19 15:39] LABS: Troponin-I High Sensitivity 20.8 ng/L (<3.5-17.0)
[2024-01-19 15:53] LABS: Procalcitonin 0.03 ng/mL
[2024-01-19] MEDS: 0.9 % Sodium Chloride 250 ML IV (15:56)
[2024-01-19] MEDS: Albumin Human 25 % 100 ML 133.33 ML IV ×2 (15:56→18:31)
[2024-01-19 16:01] LABS: Influenza A PCR NEGATIVE (Negative); Influenza B PCR NEGATIVE (Negative); Resp Syncy Virus RNA Qual PCR NEGATIVE (Negative); SARS COV2 PCR INHOUSE NEGATIVE (Negative)
[2024-01-19] MEDS: Potassium Chloride ER 20 MEQ TAB.ER.PRT PO (16:06)
[2024-01-19] MEDS: levalbuterol HCL 5 MG, Ipratropium Bromide 0.5 MG INHALE (16:20)
[2024-01-19] MEDS: Potassium Chloride/H20 10 MEQ/100 ML PIGGYBACK 100 MEQ IV ×2 (16:29→17:39)
[2024-01-19] MEDS: 0.9 % Sodium Chloride 500 ML 50 ML IV (16:30)
[2024-01-19] MEDS: dilTIAZem HCL 125 MG in 0.9 % Sodium Chloride 100 ML 10 MG IVCONT (16:51)
[2024-01-19] MEDS: Azithromycin 500 MG in 0.9 % Sodium Chloride 250 ML 125 MG IV (16:52)
--- NOTE | 2024-01-19 17:03 | P.HPHOSP_ITS ---
History of Present Illness Date of Service: 01/19/24 Chief Complaint: sob 63F PMH [id number] lung cancer status post left upper lobe and right upper lobe wedge resection with metastases on palliative chemotherapy, history of breast cancer, depression, hepatitis-C, hypertension, COPD with chronic hypoxic respiratory failure on 3 L home O2, paroxysmal atrial fibrillation no longer on anticoagulation due to thrombocytopenia and anemia, opiate dependence presented with shortness of breath. Patient states she started feeling shortness of breath about 2-3 days prior to presentation with wheezing, chills, cough. No fever sick contacts. Denies chest pain. She had to bump up her home O2 to 4 L. in ED noted to be wheezy, in AFib with RVR. Review of Systems 2 Review of Systems: Yes all other systems are reviewed and are negative [facility] Medical History Lung cancer Pancytopenia New onset a-fib Cancer of upper lobe of left lung (~2020) Bilateral lung cancer Obesity History of hepatitis C Smoker Tubular adenoma of colon Pulmonary nodules History of breast cancer (~2006) Internal and external bleeding hemorrhoids Cancer of upper lobe of right lung (~2019) GERD (gastroesophageal reflux disease) Depression COPD (chronic obstructive pulmonary disease) HTN (hypertension) Family History Mother History of lung cancer Brother History of lung cancer Maternal Grandmother Breast cancer in female Maternal Aunt Breast cancer in female Daughter Thyroid cancer Surgical History History of lung surgery (~2020) History of anterior colporrhaphy (~2016) History of tubal ligation History of lumpectomy of right breast (~2006) History of colonoscopy (~2014) History of hemorrhoidectomy (~2019) History of back surgery (~2011) History of lobectomy of lung (~2019) Social History Household Members: Significant Other Household Members Other:: 2 Housing: House Are you a primary zoo caretaker to a significant other at home: No Do you presently have visiting nurse or other home services: No Unable to assess alcohol history related to: Unable to respond Alcohol intake: never Comment: rings appropriately Patient Tobacco Use Status: Former Tobacco user Tobacco use type: Cigarette Cigarette Packs Per Day: 1 Cigarettes Per Day: 10 Years Smoked: 50 Smoked in Last 30 Days: No Second Hand Smoke Exposure: Yes Use of substances other than those prescribed or required for medical reasons: No Substance Use Type: Marijuana Advance Directives: Yes Advance Directives on File: Yes Advance Directives Date on File: 02/02/22 Do you have a plan to hurt others: No Plan Patient : No service: No Current occupational status: disabled Current occupational exposures/hazards: No Meds Allergies Allergy/AdvReac Type Severity Reaction Status Date / Time lisinopril [LISINOPRIL] Allergy Severe SWELLING- Verified 01/19/24 14:21 ANGIOEDEMA codeine [CODEINE] Allergy Intermediate VOMITING/HIVES, Verified 01/19/24 14:21 vomiting, hives Active Medications: Current Medications Acetaminophen (Acetaminophen 325 Mg Tablet) 650 mg PO Q6H PRN PRN Reason: Pain, Mild (Pain Scale 1-3), fever or headache Albuterol/Ipratropium (Albuterol/Iprat 2.5/0.5mg 3 Ml Ampul.Neb) 3 ml INHALE RQ4H 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 Azithromycin (Azithromycin 500 Mg Tablet) 500 mg PO Q24H WALTER Calcium Carbonate (Calcium Carbonate 750 Mg Tab.Chew) 750 mg PO Q4H PRN PRN Reason: Heartburn Enoxaparin Sodium (Enoxaparin Sodium 40 Mg/0.4 Ml Syringe) 40 mg SUBCUT Q24H WALTER Albumin Human (Kedbumin 25 %) 100 mls @ 133.333 mls/hr IV Q1H WALTER Stop: 01/19/24 17:29 Last Admin: 01/19/24 15:56 Dose: 133.33 mls/hr Potassium Chloride (Potassium Chloride/H20) 10 meq in 100 mls @ 100 mls/hr IV Q1H WALTER Stop: 01/19/24 17:59 Last Admin: 01/19/24 16:29 Dose: 100 mls/hr Diltiazem HCl 125 mg/ Sodium (Chloride) 125 mls @ 0 mls/hr IVCONT .Q0M WALTER; Protocol Last Admin: 01/19/24 16:51 Dose: 10 mg/hr, 10 mls/hr Azithromycin 500 mg/ Sodium (Chloride) 250 mls @ 125 mls/hr IV ONCE ONE Stop: 01/19/24 18:20 Last Admin: 01/19/24 16:52 Dose: 125 mls/hr Sodium Chloride (Ns) 500 mls @ 50 mls/hr IV .Q10H [facility] Stop: 01/20/24 02:29 Last Admin: 01/19/24 16:30 Dose: 50 mls/hr Magnesium Hydroxide (Milk Of Magnesia 30 Ml Oral.Susp) 30 ml PO DAILY PRN PRN Reason: Constipation Melatonin (Melatonin 3 Mg Tablet) 6 mg PO BEDTIME PRN PRN Reason: Insomnia Methylprednisolone Sodium Succinate (Methylprednisolone Sod Succ 40 Mg/Ml Vial) 40 mg IVPUSH Q12H [facility] Sodium Chloride (0.9 % Sodium Chloride Flush 3 Ml Syringe) 3 ml IVFLUSH QSHIFT [facility] Home Medications ?Medication ?Instructions ?Recorded ?Confirmed ?Last Taken ?Type milnacipran 50 mg tablet (Savella) 50 mg PO BID 01/18/22 01/19/24 01/19/24 History omeprazole 20 mg capsule,delayed 20 mg PO DAILY@0630 01/18/22 01/19/24 01/19/24 History release paroxetine HCl 20 mg tablet 40 mg PO BID 01/18/22 01/19/24 01/19/24 History simvastatin 20 mg tablet 20 mg PO BEDTIME 02/17/22 01/19/24 01/18/24 History albuterol sulfate 90 mcg/actuation 2 puff inhalation Q6H PRN sob 06/22/23 01/19/24 07/09/23 History aerosol inhaler (Ventolin HFA) buprenorphine 2 mg-naloxone 0.5 mg 0.5 - 1 film sublingual DAILY 07/09/23 01/19/24 01/19/24 History sublingual film (Suboxone) docusate sodium 100 mg capsule 100 mg PO BEDTIME PRN stool 07/09/23 01/19/24 11/02/23 History softener umeclidinium 62.5 mcg-vilanterol 1 inh inhalation DAILY 07/09/23 01/19/24 01/19/24 History 25 mcg/actuation powdr for inhalation (Anoro Ellipta) ipratropium 0.5 mg-albuterol 3 mg 3 ml inhalation Q6H PRN wheezing 10/18/23 01/19/24 12/01/23 History (2.5 mg base)/3 mL nebulization soln acetaminophen 500 mg tablet 500 mg PO DAILY PRN Pain 11/03/23 01/19/24 Unknown History furosemide 40 mg tablet 40 mg PO DAILY 01/19/24 01/19/24 01/19/24 History nicotine 21 mg/24 hr daily 21 mg transdermal DAILY PRN 01/19/24 01/19/24 Unknown History transdermal patch Smoking Cessation Physical Exam 2 Vital Signs and Narrative: Vital Signs: Last Vital Signs Temp 98.2 F 01/19/24 15:53 Pulse 149 H 01/19/24 16:51 Resp 28 H 01/19/24 16:17 BP 127/93 H 01/19/24 16:51 Pulse Ox 95 01/19/24 15:53 O2 Del Method Nasal Cannula 01/19/24 15:53 O2 Flow Rate 4 01/19/24 15:53 Oxygen Flow Rate 4 01/19/24 14:18 BMI result Body Mass Index 31.4 General: AO X 3, no acute distress Resp: Wheezing bilateral, no accessory muscles used CVS: S1,S2,RRR GI: soft, non tender, non distended Neuro: motor grossly intact, alert Psych: appropriate affect, appropriate insight Results Labs 01/19/24 15:02 01/19/24 15:02 Labs: Laboratory Results - last 24 hr 01/19/24 01/19/24 15:02 15:08 MCV 91.7 MCH 30.2 MCHC 32.9 RDW 14.4 Plt Count 240 MPV 9.7 Immature Gran % (Auto) 0.5 H Neut % (Auto) 69.2 Lymph % (Auto) 22.2 [place] % (Auto) 7.3 Eos % (Auto) 0.2 Baso % (Auto) 0.6 Lymph # (Auto) 2.0 [place] # (Auto) 0.7 Eos # (Auto) 0.0 Baso # (Auto) 0.1 Abs Immat Gran (auto) 0.04 H Absolute Neuts (auto) 6.1 Absolute Nucleated RBC 0.000 Nucleated RBC % (auto) 0.0 VBG pH 7.45 H VBG pCO2 47 VBG pO2 84 VBG HCO3 33 H VBG O2 Saturation 96.0 VBG Base Excess 8.0 Anion Gap 15 Estim Creat Clear Calc 61.7 Estimated GFR 51 Random Glucose 194 H Lactic Acid 3.9 H* Calcium 9.8 Magnesium 1.5 L Total Bilirubin 0.4 Direct Bilirubin 0.2 AST 12 ALT 9 Alkaline Phosphatase 68 Troponin I High Sens 20.8 H C-Reactive Protein 7.20 H B-Natriuretic Peptide 272 H Total Protein 7.1 Albumin 3.8 Lipase 39 Procalcitonin 0.03 Influenza Type A (PCR) NEGATIVE Influenza Type B (PCR) NEGATIVE RSV RNA Qual (PCR) NEGATIVE SARS-CoV-2 RNA (RT-PCR) NEGATIVE Imaging Radiologist's Impressions: Impressions Chest X-Ray 01/19/24 14:45 IMPRESSION: Findings as above. Electronically signed by: Rigo Johnson MD 01/19/2024 04:58 PM EDT RP Assessment and Plan (1) Hypomagnesemia: Status: Acute Plan 63F PMH [id number] lung cancer status post left upper lobe and right upper lobe wedge resection with metastases on palliative chemotherapy, history of breast cancer, depression, hepatitis-C, hypertension, COPD with chronic hypoxic respiratory failure on 3 L home O2, paroxysmal atrial fibrillation no longer on anticoagulation due to thrombocytopenia and anemia, opiate dependence presented with shortness of breath Acute on chronic hypoxic respiratory failure secondary to COPD with acute decompensation no sepsis (lactic acid and tachy due to albuterol) IV steroids, azithromycin, DuoNebs Wean O2 as tolerated Stage IV lung cancer Outpatient follow up with Oncology Hypothyroid Continue levothyroxine Paroxysmal atrial fibrillation with rapid ventricular response eliquis wean off diltiazem infusion Continue metoprolol, diltiazem DVT prophylaxis with eliquis Full Code Patient with significant shortness of breath and wheezing as well as AFib with RVR requiring IV diltiazem therefore expected require at least 2 midnights inpatient Quality Stroke Does the patient have a stroke diagnosis?: No VTE Prior VTE?: No VTE Risk Level:: Medical - moderate - high VTE Device Contraindication: Treatment Not Indicated VTE Drug Contraindication: N/A - Med Ordered
[2024-01-19 17:08] LABS: Reflex Lactate? Lactic Acid Added
--- NOTE | 2024-01-19 17:08 | PC.NURSE ---
lab called to request more albumin
--- NOTE | 2024-01-19 17:14 | PC.NURSE ---
patient presents from EMS from home, states she has been feeling increasingly short of breath over the last few weeks or so. states she usually wears O2 at home and she was trying to just breathe it out and increased her home O2 to 4L but was still complaining of shortness of breath. denies fevers at home. patient with hx of bilateral lung CA, COPD, CHF and Afib with RVR but states she has not been taking blood thinners because someone stopped them . 18g piv placed in RAC by EMS, second 18g IV placed in Right bicep by this RN, and 18g PIV placed in left forearm by this RN. patient placed on nurse monitoring and noted to have HR of 110s-150s in afib rhythm. MD made aware. blood work drawn and sent to lab. plan of care is ongoing
[2024-01-19] MEDS: Enoxaparin Sodium 40 MG/0.4 ML SYRINGE SUBCUT (17:35)
[2024-01-19 18:07] LABS: ~Lactic Acid-LAB USE ONLY 4.7 mmol/L (0.5-2.0)
--- NOTE | 2024-01-19 18:44 | PHA.MEDREC ---
Addendum entered by Jodie Mejia RPh 01/19/24 18:52: reviewed Original Note: Pharmacy Consult ? Medication Reconciliation Pharmacy has completed the medication reconciliation. Spoke to patient to confirm med list. Patient states she is taking Eliquis 5 mg, however last fill date shows 12/10/23 for 30 days. when asked, when the last time she took this medication she said today. Patient said she is on Suboxone 2mg /0.5mg 1/2 to 1 film daily. last fill days 01/03 for 8 days
[2024-01-19 19:46] LABS: Reflex Lactate? 2 Y
[2024-01-19 20:53] LABS: ~Lactic Acid-LAB USE ONLY 7.6 mmol/L (0.5-2.0)
[2024-01-19] MEDS: Albuterol/Iprat 2.5/0.5MG 3 ML AMPUL.NEB INHALE (21:27)
[2024-01-19] MEDS: Atorvastatin Calcium 10 MG TABLET PO (22:02)
[2024-01-19] MEDS: Lactated Ringers 500 ML IV (22:02)
[2024-01-19] MEDS: Apixaban 5 MG TABLET PO (22:02)
[2024-01-19] MEDS: PARoxetine HCL 40 MG TABLET PO (22:02)
[2024-01-20] VITALS (9 sets, daily range): BP systolic 126–156; BP diastolic 72–94; PULSE 70–107; RESP 18–24; TEMP 36.2–37.1; O2SAT 91–95
[2024-01-20] MEDS: Buprenorphine/Naloxone 2/0.5mg FILM 0.5 FILM SUBLINGUAL ×2 (00:25→08:54)
[2024-01-20] MEDS: Melatonin 3 MG TABLET 6 MG PO (00:28)
[2024-01-20] MEDS: dilTIAZem HCL 125 MG in 0.9 % Sodium Chloride 100 ML 15 MG IVCONT (00:40)
[2024-01-20] MEDS: Zolpidem Tartrate 5 MG TABLET PO (02:49)
[2024-01-20] MEDS: Omeprazole 20 MG CAPSULE.DR PO (05:34)
[2024-01-20] MEDS: Levothyroxine Sodium 25 MCG TABLET PO (05:34)
[2024-01-20 06:46] LABS: Hematocrit 31.2 % (37.0-47.0); Hemoglobin 10.4 g/dl (12.0-16.0); Mean Corpuscular HGB Conc 33.3 g/dl (31.0-35.0); Mean Corpuscular Hemoglobin 30.3 pg (27.0-33.0); Platelet Count 212 X10*3/uL (160-400); Red Blood Count 3.43 X10*6/uL (4.20-5.50); Red Cell Distribution Width 14.6 % (11.0-16.0); White Blood Count 15.8 X10*3/uL (4.8-10.8)
[2024-01-20 06:59] LABS: Anion Gap 15 (12-20); Blood Urea Nitrogen 18 mg/dL (9-16); Calcium 9.8 mg/dL (8.4-10.2); Carbon Dioxide 27 mmol/L (22-29); Chloride 100 mmol/L (96-108); Creatinine Clr Calc Pharmacy 60.4; Estimated Glomerular Filt Rate 49; Glucose Fasting 154 mg/dL (60-99); Magnesium 1.9 mg/dL (1.6-2.6); Potassium 3.4 mmol/L (3.3-5.1); Sodium 139 mmol/L (135-145)
[2024-01-20] MEDS: Albuterol/Iprat 2.5/0.5MG 3 ML AMPUL.NEB INHALE ×4 (07:49→23:53)
--- NOTE | 2024-01-20 08:27 | MHC.CM.PN ---
Patient lives in [address] 8 Housing/apartment with her Significant Other/Richard, who should not be living with her under [address]. Patient is active with [facility], receives her Suboxone through [facility] in [place], and home O2 through [facility]. Home/ resume said services is the goal and CM has initiated and will follow for dc planning. PCP is Dr. Daphne Rodriguez and her Daughter/HCP/Makayla will transport to home.
--- NOTE | 2024-01-20 08:49 | P.CDIM_ITS ---
PROVIDER RESPONSE TEXT: To clarify, the appropriate diagnosis supported by the clinical indicators: Acute QUERY TEXT: PHYSICIAN'S DOCUMENTATION REQUEST Date of Query: 01/20/2024 07:54 AM EDT Patient Name: Elida Schumacher Admit Date: 01/19/2024 Dear Joel Brink MD, A review of the medical record indicates additional documentation may be needed. Please review below and update the documentation accordingly. Clinical Indicators: ED 01/18 - Lactic acidosis likely due to nebs. Clinical impression - lactic acidosis H&P: lactic acid (lactic acid and tachy due to albuterol) LA: 4.7 7.6 Clarify which of the following accurately represents the acuity of the lactic acidosis: Possible options might include: Acute Chronic Other (explain) Clinically unable to determine (explain) Thank you, Jackelin Moreno, CCS, CDIS Use of terms such as suspected, likely, concern for, or probable (associated with a specific diagnosi s that is being evaluated, monitored, or treated as if it exists) are acceptable and can be coded in the inpatient se tting, when documented at the time of discharge. Please use your independent medical judgment in providing your response. THIS QUERY IS PART OF THE PERMANENT MEDICAL RECORD
[2024-01-20] MEDS: Furosemide 40 MG TABLET PO (08:56)
[2024-01-20] MEDS: Folic Acid 1 MG TABLET PO (08:57)
[2024-01-20] MEDS: Theophylline Anhydrous ER 400 MG TAB.ER.24H PO (08:57)
[2024-01-20] MEDS: Potassium Chloride ER 20 MEQ TAB.ER.PRT PO (08:57)
[2024-01-20] MEDS: dilTIAZem HCL CD 300 MG CAP.ER.24H PO (08:57)
[2024-01-20] MEDS: Metoprolol Succinate ER 100 MG TAB.ER.24H PO (08:57)
[2024-01-20] MEDS: Apixaban 5 MG TABLET PO ×2 (08:57→20:58)
[2024-01-20] MEDS: PARoxetine HCL 40 MG TABLET PO ×2 (08:58→20:58)
[2024-01-20] MEDS: methylPREDNISolone Sod Succ 40 MG/ML VIAL IVPUSH ×2 (08:58→20:58)
[2024-01-20] MEDS: 0.9 % Sodium Chloride Flush 3 ML SYRINGE IVFLUSH ×2 (08:58→20:58)
--- NOTE | 2024-01-20 09:41 | HO.PM.IMPN ---
Subjective Subjective Date of Service: 01/20/24 Interval History: Still short of breath Physical Exam Vital Signs: Vital Signs: Last Vital Signs Temp 98.2 F 01/20/24 07:19 Pulse 101 H 01/20/24 07:52 Resp 20 01/20/24 07:52 BP 135/81 01/20/24 07:19 Pulse Ox 95 01/20/24 07:19 O2 Del Method Nasal Cannula 01/20/24 07:19 O2 Flow Rate 4 01/20/24 07:19 Oxygen Flow Rate 4 01/19/24 17:09 BMI result Body Mass Index 33.0 General: AO X 3, no acute distress Resp: Wheezing bilateral, no accessory muscles used CVS: S1,S2,RRR GI: soft, non tender, non distended Neuro: motor grossly intact, alert Psych: appropriate affect, appropriate insight Objective Data Active Medications Acetaminophen (Acetaminophen 325 Mg Tablet) 650 mg PO Q6H PRN PRN Reason: Pain, Mild (Pain Scale 1-3), fever or headache Albuterol/Ipratropium (Albuterol/Iprat 2.5/0.5mg 3 Ml Ampul.Neb) 3 ml INHALE RQ4H WHILE AWAKE [facility] Last Admin: 01/20/24 07:49 Dose: 3 ml Documented By: BUSTER Apixaban (Apixaban 5 Mg Tablet) 5 mg PO BID [facility] Last Admin: 01/20/24 08:57 Dose: 5 mg Documented By: TIM Atorvastatin Calcium (Atorvastatin Calcium 10 Mg Tablet) 10 mg PO BEDTIME [facility] Last Admin: 01/19/24 22:02 Dose: 10 mg Documented By: BRYAN Azithromycin (Azithromycin 500 Mg Tablet) 500 mg PO Q24H [facility] Buprenorphine/Naloxone (Buprenorphine/Naloxone 2/0.5mg Film) 0.5 film SUBLINGUAL DAILY [facility] Last Admin: 01/20/24 08:54 Dose: 0.5 film Documented By: TIM Buprenorphine/Naloxone (Buprenorphine/Naloxone 2/0.5mg Film) 0.5 film SUBLINGUAL DAILY PRN PRN Reason: Opiate Withdrawal Last Admin: 01/20/24 00:25 Dose: 0.5 film Documented By: BRYAN Calcium Carbonate (Calcium Carbonate 750 Mg Tab.Chew) 750 mg PO Q4H PRN PRN Reason: Heartburn Diltiazem HCl (Diltiazem Hcl Cd 300 Mg Cap.Er.24h) 300 mg PO DAILY [facility]; Protocol Last Admin: 01/20/24 08:57 Dose: 300 mg Documented By: TMI Folic Acid (Folic Acid 1 Mg Tablet) 1 mg PO DAILY [facility] Last Admin: 01/20/24 08:57 Dose: 1 mg Documented By: TIM Furosemide (Furosemide 40 Mg Tablet) 40 mg PO DAILY [facility]; Protocol Last Admin: 01/20/24 08:56 Dose: 40 mg Documented By: TIM Diltiazem HCl 125 mg/ Sodium (Chloride) 125 mls @ 0 mls/hr IVCONT .Q0M [facility]; Protocol Last Titration: 01/20/24 02:51 Dose: 10 mg/hr, 10 mls/hr Documented By: BRYAN Levothyroxine Sodium (Levothyroxine Sodium 25 Mcg Tablet) 25 mcg PO DAILY@0600 [facility] Last Admin: 01/20/24 05:34 Dose: 25 mcg Documented By: BRYAN Magnesium Hydroxide (Milk Of Magnesia 30 Ml Oral.Susp) 30 ml PO DAILY PRN PRN Reason: Constipation Melatonin (Melatonin 3 Mg Tablet) 6 mg PO BEDTIME PRN PRN Reason: Insomnia Last Admin: 01/20/24 00:28 Dose: 6 mg Documented By: BRYAN Methylprednisolone Sodium Succinate (Methylprednisolone Sod Succ 40 Mg/Ml Vial) 40 mg IVPUSH Q12H [facility] Last Admin: 01/20/24 08:58 Dose: 40 mg Documented By: TIM Metoprolol Succinate (Metoprolol Succinate Er 100 Mg Tab.Er.24h) 100 mg PO DAILY [facility]; Protocol Last Admin: 01/20/24 08:57 Dose: 100 mg Documented By: TIM Non-Formulary Medication (Milnacipran [Savella]) 50 mg PO BID [facility] Omeprazole (Omeprazole 20 Mg Capsule.Dr) 20 mg PO DAILY@0630 [facility] Last Admin: 01/20/24 05:34 Dose: 20 mg Documented By: BRYAN Paroxetine HCl (Paroxetine Hcl 40 Mg Tablet) 40 mg PO BID [facility] Last Admin: 01/20/24 08:58 Dose: 40 mg Documented By: TIM Potassium Chloride (Potassium Chloride Er 20 Meq Tab.Er.Prt) 20 meq PO DAILY [facility] Last Admin: 01/20/24 08:57 Dose: 20 meq Documented By: TIM Sodium Chloride (0.9 % Sodium Chloride Flush 3 Ml Syringe) 3 ml IVFLUSH QSHIFT [facility] Last Admin: 01/20/24 08:58 Dose: 3 ml Documented By: TIM Theophylline (Theophylline Anhydrous Er 400 Mg Tab.Er.24h) 400 mg PO DAILY [facility] Last Admin: 01/20/24 08:57 Dose: 400 mg Documented By: TIM Zolpidem Tartrate (Zolpidem Tartrate 5 Mg Tablet) 5 mg PO BEDTIME PRN PRN Reason: Insomnia Last Admin: 01/20/24 02:49 Dose: 5 mg Documented By: BRYAN Labs 01/20/24 06:11 01/20/24 06:11 Labs: Laboratory Results - last 24 hr 01/19/24 01/19/24 01/19/24 15:02 15:08 17:43 MCV 91.7 MCH 30.2 MCHC 32.9 RDW 14.4 Plt Count 240 MPV 9.7 Immature Gran % (Auto) 0.5 H Neut % (Auto) 69.2 Lymph % (Auto) 22.2 [place] % (Auto) 7.3 Eos % (Auto) 0.2 Baso % (Auto) 0.6 Lymph # (Auto) 2.0 [place] # (Auto) 0.7 Eos # (Auto) 0.0 Baso # (Auto) 0.1 Abs Immat Gran (auto) 0.04 H Absolute Neuts (auto) 6.1 Absolute Nucleated RBC 0.000 Nucleated RBC % (auto) 0.0 Hold Purple Top SEE NOTE VBG pH 7.45 H VBG pCO2 47 VBG pO2 84 VBG HCO3 33 H VBG O2 Saturation 96.0 VBG Base Excess 8.0 Anion Gap 15 Estim Creat Clear Calc 61.7 Estimated GFR 51 Random Glucose 194 H Fasting Glucose Lactic Acid 3.9 H* Lactic Acid F/U @ 2Hr 4.7 H* Lactic Acid F/U @ 4Hr Calcium 9.8 Magnesium 1.5 L Total Bilirubin 0.4 Direct Bilirubin 0.2 AST 12 ALT 9 Alkaline Phosphatase 68 Troponin I High Sens 20.8 H C-Reactive Protein 7.20 H B-Natriuretic Peptide 272 H Total Protein 7.1 Albumin 3.8 Lipase 39 Procalcitonin 0.03 Hold Yellow Top See Note Influenza Type A (PCR) NEGATIVE Influenza Type B (PCR) NEGATIVE RSV RNA Qual (PCR) NEGATIVE SARS-CoV-2 RNA (RT-PCR) NEGATIVE 01/19/24 01/20/24 20:22 06:11 MCV 91.0 MCH 30.3 MCHC 33.3 RDW 14.6 Plt Count 212 MPV 10.0 Immature Gran % (Auto) Neut % (Auto) Lymph % (Auto) [place] % (Auto) Eos % (Auto) Baso % (Auto) Lymph # (Auto) [place] # (Auto) Eos # (Auto) Baso # (Auto) Abs Immat Gran (auto) Absolute Neuts (auto) Absolute Nucleated RBC 0.000 Nucleated RBC % (auto) 0.0 Hold Purple Top VBG pH VBG pCO2 VBG pO2 VBG HCO3 VBG O2 Saturation VBG Base Excess Anion Gap 15 Estim Creat Clear Calc 60.4 Estimated GFR 49 Random Glucose Fasting Glucose 154 H Lactic Acid Lactic Acid F/U @ 2Hr Lactic Acid F/U @ 4Hr 7.6 H* Calcium 9.8 Magnesium 1.9 Total Bilirubin Direct Bilirubin AST ALT Alkaline Phosphatase Troponin I High Sens C-Reactive Protein B-Natriuretic Peptide Total Protein Albumin Lipase Procalcitonin Hold Yellow Top Influenza Type A (PCR) Influenza Type B (PCR) RSV RNA Qual (PCR) SARS-CoV-2 RNA (RT-PCR) Assessment and Plan (1) Acidosis, lactic: Status: Acute Plan 63F PMH [id number] lung cancer status post left upper lobe and right upper lobe wedge resection with metastases on palliative chemotherapy, history of breast cancer, depression, hepatitis-C, hypertension, COPD with chronic hypoxic respiratory failure on 3 L home O2, paroxysmal atrial fibrillation no longer on anticoagulation due to thrombocytopenia and anemia, opiate dependence presented with shortness of breath Acute on chronic hypoxic respiratory failure secondary to COPD with acute decompensation no sepsis (lactic acid and tachy due to albuterol) Continue IV steroids, azithromycin, DuoNebs Wean O2 as tolerated Stage IV lung cancer Outpatient follow up with Oncology Hypothyroid Continue levothyroxine Paroxysmal atrial fibrillation with rapid ventricular response eliquis wean off diltiazem infusion Continue metoprolol, diltiazem DVT prophylaxis with eliquis Full Code reason for continued hospitalization: Still in rapid AFib, still wheezy and still hypoxic Quality Stroke Does the patient have a stroke diagnosis?: No VTE Prior VTE?: No VTE Risk Level:: Medical - moderate - high VTE Device Contraindication: Treatment Not Indicated VTE Drug Contraindication: N/A - Med Ordered
--- NOTE | 2024-01-20 12:04 | PC.NURSE ---
Diltiazem titrated to 5 nl/hr hr sustained 90-100
[2024-01-20] MEDS: dilTIAZem HCL 125 MG in 0.9 % Sodium Chloride 100 ML IVCONT (14:57)
--- NOTE | 2024-01-20 15:04 | PC.NURSE ---
diltiazem drip paused due to sustained heart rate below 90 bpm
[2024-01-20] MEDS: Azithromycin 500 MG TABLET PO (18:14)
[2024-01-20] MEDS: Atorvastatin Calcium 10 MG TABLET PO (20:58)
[2024-01-21] VITALS (11 sets, daily range): BP systolic 121–156; BP diastolic 77–99; PULSE 74–98; RESP 18–22; TEMP 36.1–36.6; O2SAT 87–99
[2024-01-21] MEDS: LORazepam 2 MG/ML VIAL 1 MG IVPUSH (00:04)
[2024-01-21] MEDS: Albuterol/Iprat 2.5/0.5MG 3 ML AMPUL.NEB INHALE ×7 (01:50→23:13)
[2024-01-21 07:22] LABS: Hematocrit 33.3 % (37.0-47.0); Hemoglobin 10.7 g/dl (12.0-16.0); Mean Corpuscular HGB Conc 32.1 g/dl (31.0-35.0); Mean Corpuscular Hemoglobin 29.9 pg (27.0-33.0); Mean Platelet Volume 9.7 fL (9.4-12.3); Platelet Count 251 X10*3/uL (160-400); Red Blood Count 3.58 X10*6/uL (4.20-5.50); White Blood Count 18.4 X10*3/uL (4.8-10.8)
[2024-01-21 07:42] LABS: Anion Gap 17 (12-20); Blood Urea Nitrogen 34 mg/dL (9-16); Carbon Dioxide 25 mmol/L (22-29); Chloride 101 mmol/L (96-108); Creatinine Clr Calc Pharmacy 45.2; Estimated Glomerular Filt Rate 35; Glucose Fasting 193 mg/dL (60-99); Magnesium 2.1 mg/dL (1.6-2.6); Potassium 4.8 mmol/L (3.3-5.1); Sodium 138 mmol/L (135-145)
--- NOTE | 2024-01-21 08:46 | P.PNIM_ITS ---
Subjective Subjective Date of Service: 01/21/24 Interval History: still very sob, wheezy, and tight Physical Exam 2 Vital Signs: Vital Signs: Last Vital Signs Temp 97.0 F 01/21/24 07:16 Pulse 90 01/21/24 07:16 Resp 20 01/21/24 07:16 BP 156/77 H 01/21/24 07:16 Pulse Ox 90 L 01/21/24 07:16 O2 Del Method Nasal Cannula 01/21/24 07:16 O2 Flow Rate 5 01/21/24 07:16 Oxygen Flow Rate 4 01/19/24 17:09 BMI result Body Mass Index 33.0 General: AO X 3, dyspneic Resp: Wheezing bilateral, some accessory muscles used CVS: S1,S2,RRR GI: soft, non tender, non distended Neuro: motor grossly intact, alert Psych: appropriate affect, appropriate insight Objective Data Active Medications Acetaminophen (Acetaminophen 325 Mg Tablet) 650 mg PO Q6H PRN PRN Reason: Pain, Mild (Pain Scale 1-3), fever or headache Albuterol/Ipratropium (Albuterol/Iprat 2.5/0.5mg 3 Ml Ampul.Neb) 3 ml INHALE RQ4H WHILE AWAKE [facility] Last Admin: 01/20/24 18:55 Dose: 3 ml Documented By: BUSTER Albuterol/Ipratropium (Albuterol/Iprat 2.5/0.5mg 3 Ml Ampul.Neb) 3 ml INHALE Q4H PRN PRN Reason: Wheezing Last Admin: 01/21/24 06:20 Dose: 3 ml Documented By: BRYAN Apixaban (Apixaban 5 Mg Tablet) 5 mg PO BID [facility] Last Admin: 01/20/24 20:58 Dose: 5 mg Documented By: BRYAN Atorvastatin Calcium (Atorvastatin Calcium 10 Mg Tablet) 10 mg PO BEDTIME [facility] Last Admin: 01/20/24 20:58 Dose: 10 mg Documented By: BRYAN Azithromycin (Azithromycin 500 Mg Tablet) 500 mg PO Q24H [facility] Last Admin: 01/20/24 18:14 Dose: 500 mg Documented By: TIM Buprenorphine/Naloxone (Buprenorphine/Naloxone 2/0.5mg Film) 0.5 film SUBLINGUAL DAILY [facility] Last Admin: 01/20/24 08:54 Dose: 0.5 film Documented By: TIM Buprenorphine/Naloxone (Buprenorphine/Naloxone 2/0.5mg Film) 0.5 film SUBLINGUAL DAILY PRN PRN Reason: Opiate Withdrawal Last Admin: 01/20/24 00:25 Dose: 0.5 film Documented By: BRYAN Calcium Carbonate (Calcium Carbonate 750 Mg Tab.Chew) 750 mg PO Q4H PRN PRN Reason: Heartburn Diltiazem HCl (Diltiazem Hcl Cd 300 Mg Cap.Er.24h) 300 mg PO DAILY [facility]; Protocol Last Admin: 01/20/24 08:57 Dose: 300 mg Documented By: TIM Docusate Sodium (Docusate Sodium 100 Mg Capsule) 100 mg PO BEDTIME PRN PRN Reason: Constipation Folic Acid (Folic Acid 1 Mg Tablet) 1 mg PO DAILY [facility] Last Admin: 01/20/24 08:57 Dose: 1 mg Documented By: TIM Furosemide (Furosemide 40 Mg Tablet) 40 mg PO DAILY [facility]; Protocol Last Admin: 01/20/24 08:56 Dose: 40 mg Documented By: TIM Diltiazem HCl 125 mg/ Sodium (Chloride) 125 mls @ 0 mls/hr IVCONT .Q0M [facility]; Protocol Last Titration: 01/20/24 15:03 Dose: 0 mg/hr, 0 mls/hr Documented By: TIM Levothyroxine Sodium (Levothyroxine Sodium 25 Mcg Tablet) 25 mcg PO DAILY@0600 [facility] Last Admin: 01/20/24 05:34 Dose: 25 mcg Documented By: BRYAN Magnesium Hydroxide (Milk Of Magnesia 30 Ml Oral.Susp) 30 ml PO DAILY PRN PRN Reason: Constipation Melatonin (Melatonin 3 Mg Tablet) 6 mg PO BEDTIME PRN PRN Reason: Insomnia Last Admin: 01/20/24 00:28 Dose: 6 mg Documented By: BRYAN Methylprednisolone Sodium Succinate (Methylprednisolone Sod Succ 40 Mg/Ml Vial) 40 mg IVPUSH Q12H [facility] Last Admin: 01/20/24 20:58 Dose: 40 mg Documented By: BRYAN Metoprolol Succinate (Metoprolol Succinate Er 100 Mg Tab.Er.24h) 100 mg PO DAILY [facility]; Protocol Last Admin: 01/20/24 08:57 Dose: 100 mg Documented By: TIM Morphine Sulfate (Morphine Sulfate 2 Mg/Ml Cartridge) 1 mg IVPUSH Q2H PRN; Protocol PRN Reason: work of breathing Non-Formulary Medication (Milnacipran [Savella]) 50 mg PO BID [facility] Omeprazole (Omeprazole 20 Mg Capsule.Dr) 20 mg PO DAILY@0630 [facility] Last Admin: 01/20/24 05:34 Dose: 20 mg Documented By: BRYAN Paroxetine HCl (Paroxetine Hcl 40 Mg Tablet) 40 mg PO BID [facility] Last Admin: 01/20/24 20:58 Dose: 40 mg Documented By: BRYAN Potassium Chloride (Potassium Chloride Er 20 Meq Tab.Er.Prt) 20 meq PO DAILY [facility] Last Admin: 01/20/24 08:57 Dose: 20 meq Documented By: TIM Sodium Chloride (0.9 % Sodium Chloride Flush 3 Ml Syringe) 3 ml IVFLUSH QSHIFT [facility] Last Admin: 01/20/24 20:58 Dose: 3 ml Documented By: BRYAN Theophylline (Theophylline Anhydrous Er 400 Mg Tab.Er.24h) 400 mg PO DAILY [facility] Last Admin: 01/20/24 08:57 Dose: 400 mg Documented By: TIM Zolpidem Tartrate (Zolpidem Tartrate 5 Mg Tablet) 5 mg PO BEDTIME PRN PRN Reason: Insomnia Last Admin: 01/20/24 02:49 Dose: 5 mg Documented By: BRYAN Labs 01/21/24 06:56 01/21/24 06:56 Labs: Laboratory Results - last 24 hr 01/21/24 06:56 MCV 93.0 MCH 29.9 MCHC 32.1 RDW 15.0 Plt Count 251 MPV 9.7 Absolute Nucleated RBC 0.000 Nucleated RBC % (auto) 0.0 Anion Gap 17 Estim Creat Clear Calc 45.2 Estimated GFR 35 Fasting Glucose 193 H Calcium 10.0 Magnesium 2.1 Microbiology Microbiology Results: Microbiology 01/19/24 15:02 Blood Culture - Preliminary Blood - Venous No growth after 24 hours. 01/19/24 15:02 Blood Culture - Preliminary Blood - Venous No growth after 24 hours. Assessment and Plan (1) Acidosis, lactic: Status: Acute Plan 63F PMH [id number] lung cancer status post left upper lobe and right upper lobe wedge resection with metastases on palliative chemotherapy, history of breast cancer, depression, hepatitis-C, hypertension, COPD with chronic hypoxic respiratory failure on 3 L home O2, paroxysmal atrial fibrillation no longer on anticoagulation due to thrombocytopenia and anemia, opiate dependence presented with shortness of breath Acute on chronic hypoxic respiratory failure secondary to COPD with acute decompensation no sepsis (lactic acid and tachy due to albuterol) Continue IV steroids, azithromycin, DuoNebs Wean O2 as tolerated Stage IV lung cancer Outpatient follow up with Oncology Hypothyroid Continue levothyroxine Paroxysmal atrial fibrillation with rapid ventricular response eliquis heart rate now better controlled, off diltiazem infusion Continue metoprolol, diltiazem DVT prophylaxis with eliquis Full Code reason for continued hospitalization: still wheezy and still hypoxic Quality Stroke Does the patient have a stroke diagnosis?: No VTE Prior VTE?: No VTE Risk Level:: Medical - moderate - high VTE Device Contraindication: Treatment Not Indicated VTE Drug Contraindication: N/A - Med Ordered
[2024-01-21] MEDS: Potassium Chloride ER 20 MEQ TAB.ER.PRT PO (09:42)
[2024-01-21] MEDS: PARoxetine HCL 40 MG TABLET PO ×2 (09:42→20:36)
[2024-01-21] MEDS: Apixaban 5 MG TABLET PO ×2 (09:42→20:36)
[2024-01-21] MEDS: dilTIAZem HCL CD 300 MG CAP.ER.24H PO (09:42)
[2024-01-21] MEDS: Furosemide 40 MG TABLET PO (09:43)
[2024-01-21] MEDS: Folic Acid 1 MG TABLET PO (09:43)
[2024-01-21] MEDS: Levothyroxine Sodium 25 MCG TABLET PO (09:43)
[2024-01-21] MEDS: Metoprolol Succinate ER 100 MG TAB.ER.24H PO (09:43)
[2024-01-21] MEDS: Theophylline Anhydrous ER 400 MG TAB.ER.24H PO (09:43)
[2024-01-21] MEDS: Omeprazole 20 MG CAPSULE.DR PO (09:44)
[2024-01-21] MEDS: Buprenorphine/Naloxone 2/0.5mg FILM 0.5 FILM SUBLINGUAL (09:44)
[2024-01-21] MEDS: 0.9 % Sodium Chloride Flush 3 ML SYRINGE IVFLUSH ×3 (09:44→20:36)
[2024-01-21] MEDS: Morphine Sulfate 2 MG/ML CARTRIDGE IVPUSH ×2 (09:46→19:20)
[2024-01-21] MEDS: methylPREDNISolone Sod Succ 40 MG/ML VIAL IVPUSH ×2 (09:59→20:36)
--- NOTE | 2024-01-21 10:18 | MHC.CM.PN ---
Per ROUNDS discussion, Patient is not yet medically cleared for dc (still hypoxic); home/resume services is the goal and CM will continue to follow.
[2024-01-21] MEDS: Azithromycin 500 MG TABLET PO (16:21)
[2024-01-21] MEDS: Atorvastatin Calcium 10 MG TABLET PO (20:36)
[2024-01-21] MEDS: Morphine Sulfate 2 MG/ML CARTRIDGE 1 MG IVPUSH (20:51)
[2024-01-21] MEDS: Melatonin 3 MG TABLET 6 MG PO (23:54)
[2024-01-22] VITALS (18 sets, daily range): BP systolic 126–152; BP diastolic 89–96; PULSE 80–107; RESP 12–94; TEMP 36.2–36.6; O2SAT 71–97
[2024-01-22] MEDS: Morphine Sulfate 2 MG/ML CARTRIDGE 1 MG IVPUSH ×2 (00:34→06:09)
[2024-01-22] MEDS: guaiFEN/Codeine SF 200/20/10ML 10 ML LIQUID 5 ML PO ×3 (01:10→20:01)
[2024-01-22] MEDS: methylPREDNISolone Sod Succ 40 MG/ML VIAL IVPUSH ×2 (06:13→20:00)
[2024-01-22] MEDS: Furosemide 40 MG TABLET PO (06:24)
[2024-01-22] MEDS: Omeprazole 20 MG CAPSULE.DR PO (06:24)
[2024-01-22] MEDS: Levothyroxine Sodium 25 MCG TABLET PO (06:24)
--- NOTE | 2024-01-22 06:26 | PC.NURSE ---
Pt O2 sats dropped to 70's during care. respiratory at bedside, duonebs administered. Rhonchi and wheezing noted, PRN morphine 1 mg administered. MD notified of change in condition with permission given to administer 0900 Solumedrol and Lasix now. Respiratory placed pt on high flow nasal cannula settings of 50L at 60%. MD aware of pt currently on high flow.
--- NOTE | 2024-01-22 06:37 | PM.EVENT ---
Event Note Date of Service: 01/22/24 Event Note: Patient with increasing oxygen requirements overnight. Dyspnea and tachypnea present. Bilateral crackles and wheezing on exam. Obtaining BNP, x-ray and VBG Time Spent With Patient Time: Total time managing care of this patient today ____ minutes.
[2024-01-22] MEDS: Albuterol/Iprat 2.5/0.5MG 3 ML AMPUL.NEB INHALE ×4 (07:40→18:43)
[2024-01-22 07:48] LABS: Venous Blood Gas Refer to POC result
[2024-01-22 07:48] LABS: VBG Base Excess 5.3 mmol/L; VBG HCO3 29 mmol/L (22-26); VBG pCO2 40 mmHg; VBG pH 7.46 (7.32-7.43); VBG pO2 89 mmHg
[2024-01-22 07:55] LABS: Hematocrit 31.7 % (37.0-47.0); Hemoglobin 10.3 g/dl (12.0-16.0); Mean Corpuscular HGB Conc 32.5 g/dl (31.0-35.0); Mean Corpuscular Volume 92.4 fL (80.0-98.0); Platelet Count 263 X10*3/uL (160-400); Red Blood Count 3.43 X10*6/uL (4.20-5.50); Red Cell Distribution Width 14.9 % (11.0-16.0); White Blood Count 19.8 X10*3/uL (4.8-10.8)
[2024-01-22] MEDS: PARoxetine HCL 40 MG TABLET PO ×2 (07:56→20:00)
[2024-01-22] MEDS: Apixaban 5 MG TABLET PO ×2 (07:56→20:00)
[2024-01-22] MEDS: dilTIAZem HCL CD 300 MG CAP.ER.24H PO (07:56)
[2024-01-22] MEDS: Folic Acid 1 MG TABLET PO (07:56)
[2024-01-22] MEDS: Metoprolol Succinate ER 100 MG TAB.ER.24H PO (07:56)
[2024-01-22] MEDS: Buprenorphine/Naloxone 2/0.5mg FILM 0.5 FILM SUBLINGUAL (07:57)
[2024-01-22] MEDS: Theophylline Anhydrous ER 400 MG TAB.ER.24H PO (07:57)
[2024-01-22] MEDS: Potassium Chloride ER 20 MEQ TAB.ER.PRT PO (07:57)
[2024-01-22] MEDS: 0.9 % Sodium Chloride Flush 3 ML SYRINGE IVFLUSH ×2 (08:03→23:34)
[2024-01-22 08:15] LABS: Anion Gap 14 (12-20); Blood Urea Nitrogen 38 mg/dL (9-16); Calcium 9.9 mg/dL (8.4-10.2); Carbon Dioxide 27 mmol/L (22-29); Chloride 101 mmol/L (96-108); Estimated Glomerular Filt Rate 42; Glucose Fasting 197 mg/dL (60-99); Potassium 4.4 mmol/L (3.3-5.1); Sodium 138 mmol/L (135-145)
[2024-01-22 08:18] LABS: B Type Natriuretic Peptide 493 pg/mL (<100)
--- NOTE | 2024-01-22 10:06 | P.PNIM_ITS ---
Subjective Subjective Date of Service: 01/22/24 Interval History: seen and examined this AM around 630 am, became increasing hypoxic wit increased work of breathing pt seen around 715 and then again with AM rounds while on HFNC -- family bedside during second visit she appears comfortable, with saturations mid 90s on HFNC 50L/80% FiO2 Review of Systems Negative except HPI/interval history. Physical Exam 2 Vital Signs: Vital Signs: Last Vital Signs Temp 97.1 F 01/22/24 08:00 Pulse 104 H 01/22/24 08:00 Resp 18 01/22/24 09:16 BP 132/91 H 01/22/24 08:00 Pulse Ox 96 01/22/24 08:00 O2 Del Method High Flow Nasal C annula 01/22/24 08:00 O2 Flow Rate 55 01/22/24 08:00 FiO2 85 01/22/24 08:00 Oxygen Flow Rate 4 01/19/24 17:09 BMI result Body Mass Index 33.0 Const: Other: General - no acute distress, appears comfortable Cardiovascular - regular rate and rhythm, S1-S2 Lungs - very tight with poor air entry globally Abdomen - soft, nontender, no rebound or guarding Extremities - no edema bilaterally Neuro - awake and alert, no focal deficits Objective Data Active Medications Acetaminophen (Acetaminophen 325 Mg Tablet) 650 mg PO Q6H PRN PRN Reason: Pain, Mild (Pain Scale 1-3), fever or headache Albuterol/Ipratropium (Albuterol/Iprat 2.5/0.5mg 3 Ml Ampul.Neb) 3 ml INHALE RQ4H WHILE AWAKE [facility] Last Admin: 01/22/24 07:40 Dose: 3 ml Documented By: ANGEL Albuterol/Ipratropium (Albuterol/Iprat 2.5/0.5mg 3 Ml Ampul.Neb) 3 ml INHALE Q4H PRN PRN Reason: Wheezing Last Admin: 01/21/24 23:13 Dose: 3 ml Documented By: SOHAN Apixaban (Apixaban 5 Mg Tablet) 5 mg PO BID [facility] Last Admin: 01/22/24 07:56 Dose: 5 mg Documented By: NJ Atorvastatin Calcium (Atorvastatin Calcium 10 Mg Tablet) 10 mg PO BEDTIME [facility] Last Admin: 01/21/24 20:36 Dose: 10 mg Documented By: NGOZI Azithromycin (Azithromycin 500 Mg Tablet) 500 mg PO Q24H [facility] Last Admin: 01/21/24 16:21 Dose: 500 mg Documented By: TIM Buprenorphine/Naloxone (Buprenorphine/Naloxone 2/0.5mg Film) 0.5 film SUBLINGUAL DAILY [facility] Last Admin: 01/22/24 07:57 Dose: 0.5 film Documented By: NJ Buprenorphine/Naloxone (Buprenorphine/Naloxone 2/0.5mg Film) 0.5 film SUBLINGUAL DAILY PRN PRN Reason: Opiate Withdrawal Last Admin: 01/20/24 00:25 Dose: 0.5 film Documented By: BRYAN Calcium Carbonate (Calcium Carbonate 750 Mg Tab.Chew) 750 mg PO Q4H PRN PRN Reason: Heartburn Diltiazem HCl (Diltiazem Hcl Cd 300 Mg Cap.Er.24h) 300 mg PO DAILY [facility]; Protocol Last Admin: 01/22/24 07:56 Dose: 300 mg Documented By: NJ Docusate Sodium (Docusate Sodium 100 Mg Capsule) 100 mg PO BEDTIME PRN PRN Reason: Constipation Folic Acid (Folic Acid 1 Mg Tablet) 1 mg PO DAILY [facility] Last Admin: 01/22/24 07:56 Dose: 1 mg Documented By: NJ Furosemide (Furosemide 40 Mg Tablet) 40 mg PO DAILY [facility]; Protocol Last Admin: 01/22/24 06:24 Dose: 40 mg Documented By: NGOZI Guaifenesin/Codeine Phosphate (Guaifen/Codeine Sf 200/20/10ml 10 Ml Liquid) 5 ml PO Q6H PRN PRN Reason: Cough Last Admin: 01/22/24 01:10 Dose: 5 ml Documented By: NGOZI Levothyroxine Sodium (Levothyroxine Sodium 25 Mcg Tablet) 25 mcg PO DAILY@0600 [facility] Last Admin: 01/22/24 06:24 Dose: 25 mcg Documented By: NGOZI Magnesium Hydroxide (Milk Of Magnesia 30 Ml Oral.Susp) 30 ml PO DAILY PRN PRN Reason: Constipation Melatonin (Melatonin 3 Mg Tablet) 6 mg PO BEDTIME PRN PRN Reason: Insomnia Last Admin: 01/21/24 23:54 Dose: 6 mg Documented By: NGOZI Methylprednisolone Sodium Succinate (Methylprednisolone Sod Succ 40 Mg/Ml Vial) 40 mg IVPUSH Q12H [facility] Last Admin: 01/22/24 06:13 Dose: 40 mg Documented By: NGOZI Metoprolol Succinate (Metoprolol Succinate Er 100 Mg Tab.Er.24h) 100 mg PO DAILY [facility]; Protocol Last Admin: 01/22/24 07:56 Dose: 100 mg Documented By: NJ Morphine Sulfate (Morphine Sulfate 2 Mg/Ml Cartridge) 2 mg IVPUSH Q2H PRN; Protocol PRN Reason: work of breathing Non-Formulary Medication (Milnacipran [Savella]) 50 mg PO BID [facility] Omeprazole (Omeprazole 20 Mg Capsule.Dr) 20 mg PO DAILY@0630 [facility] Last Admin: 01/22/24 06:24 Dose: 20 mg Documented By: NGOZI Paroxetine HCl (Paroxetine Hcl 40 Mg Tablet) 40 mg PO BID [facility] Last Admin: 01/22/24 07:56 Dose: 40 mg Documented By: NJ Potassium Chloride (Potassium Chloride Er 20 Meq Tab.Er.Prt) 20 meq PO DAILY [facility] Last Admin: 01/22/24 07:57 Dose: 20 meq Documented By: NJ Sodium Chloride (0.9 % Sodium Chloride Flush 3 Ml Syringe) 3 ml IVFLUSH QSHIFT [facility] Last Admin: 01/22/24 08:03 Dose: 3 ml Documented By: NJ Theophylline (Theophylline Anhydrous Er 400 Mg Tab.Er.24h) 400 mg PO DAILY [facility] Last Admin: 01/22/24 07:57 Dose: 400 mg Documented By: NJ Zolpidem Tartrate (Zolpidem Tartrate 5 Mg Tablet) 5 mg PO BEDTIME PRN PRN Reason: Insomnia Last Admin: 01/20/24 02:49 Dose: 5 mg Documented By: ELLYANGB Labs 01/22/24 07:33 01/22/24 07:33 Labs: Laboratory Results - last 24 hr 01/22/24 01/22/24 07:33 07:44 MCV 92.4 MCH 30.0 MCHC 32.5 RDW 14.9 Plt Count 263 MPV 10.0 Absolute Nucleated RBC 0.000 Nucleated RBC % (auto) 0.0 VBG pH 7.46 H VBG pCO2 40 VBG pO2 89 VBG HCO3 29 H VBG O2 Saturation 98.0 VBG Base Excess 5.3 Anion Gap 14 Estim Creat Clear Calc 53.0 Estimated GFR 42 Fasting Glucose 197 H Calcium 9.9 Magnesium 2.0 B-Natriuretic Peptide 493 H Microbiology Microbiology Results: Microbiology 01/19/24 15:02 Blood Culture - Preliminary Blood - Venous No growth after 48 hours. 01/19/24 15:02 Blood Culture - Preliminary Blood - Venous No growth after 48 hours. Assessment and Plan (1) Acidosis, lactic: Status: Acute Plan 63F PMH [id number] lung cancer status post left upper lobe and right upper lobe wedge resection with metastases on palliative chemotherapy, history of breast cancer, depression, hepatitis-C, hypertension, COPD with chronic hypoxic respiratory failure on 3 L home O2, paroxysmal atrial fibrillation no longer on anticoagulation due to thrombocytopenia and anemia, opiate dependence presented with shortness of breath Acute on chronic hypoxic respiratory failure secondary to COPD with acute decompensation was on NC/oxymask until this AM -- now on HFNC cxr showing possibly developing pneumonia -- will initiate vancomycin/cefepime, check nasal MRSA Continue IV steroids, azithromycin, DuoNebs Wean O2 as tolerated Stage IV lung cancer Outpatient follow up with Oncology Hypothyroid Continue levothyroxine Paroxysmal atrial fibrillation with rapid ventricular response eliquis heart rate now better controlled, off diltiazem infusion Continue metoprolol, diltiazem DVT prophylaxis with eliquis Full Code reason for continued hospitalization: still wheezy and still hypoxic + possible pneumonia now Quality Stroke Does the patient have a stroke diagnosis?: No VTE Prior VTE?: No VTE Risk Level:: Medical - moderate - high VTE Device Contraindication: Treatment Not Indicated VTE Drug Contraindication: N/A - Med Ordered
[2024-01-22] MEDS: vancomycin/NS 2,000 MG/500 ML PLAST..BAG 250 MG IV (12:43)
[2024-01-22] MEDS: Morphine Sulfate 2 MG/ML CARTRIDGE IVPUSH (13:39)
--- NOTE | 2024-01-22 13:56 | PHA.PROG ---
Admission Date/Time: January 19, 2024 16:55 Indication: RESPIRATORY Weight in k.5 kg Adjusted body weight in K.16 Serum Creatinine - Last 168 Hours 01/19/24 01/20/24 01/21/24 15:02 06:11 06:56 Creatinine 1.08 1.13 1.51 H 01/22/24 07:33 Creatinine 1.29 Estimated CrCl and GFR - Last 168 Hours 01/19/24 01/20/24 01/21/24 15:02 06:11 06:56 Estim Creat Clear Calc 61.7 60.4 45.2 Estimated GFR 51 49 35 01/22/24 07:33 Estim Creat Clear Calc 53.0 Estimated GFR 42 Vancomycin Loading Dose: 1999 Current Vancomycin Dosing Regimen: 1500 q24H Vancomycin Monitoring using AUC goal of 400 - 600 range with trough as surrogate marker: 523 Date and Time for next Vancomycin Level to be drawn 01/23 @1100: Pharmacist Comments on Vancomycin Plan: Vancomycin dosing will take advantage of [employer] as a clinical decision support tool that uses Bayesian modeling to calculate individual patient's pharmacokinetic parameters and forecast the patient's drug concentration time course with the target goal AUC 24 range of 400 - 600 mg/L/hr.
[2024-01-22] MEDS: cefEPime HCl/D5W 2 GM/50 ML PIGGYBACK IV ×2 (14:13→23:31)
[2024-01-22] MEDS: Azithromycin 500 MG TABLET PO (17:22)
[2024-01-22] MEDS: Acetaminophen 325 MG TABLET 650 MG PO (19:59)
[2024-01-22] MEDS: Atorvastatin Calcium 10 MG TABLET PO (20:00)
[2024-01-22] MEDS: Melatonin 3 MG TABLET 6 MG PO (20:03)
[2024-01-23] VITALS (14 sets, daily range): BP systolic 128–144; BP diastolic 62–99; PULSE 81–110; RESP 16–24; TEMP 36.1–36.4; O2SAT 88–100
[2024-01-23] MEDS: Morphine Sulfate 2 MG/ML CARTRIDGE IVPUSH ×3 (03:17→19:03)
[2024-01-23] MEDS: cefEPime HCl/D5W 2 GM/50 ML PIGGYBACK IV ×2 (06:18→19:45)
[2024-01-23 07:30] LABS: Creatinine Clr Calc Pharmacy 50.6; Estimated Glomerular Filt Rate 40
[2024-01-23] MEDS: Albuterol/Iprat 2.5/0.5MG 3 ML AMPUL.NEB INHALE ×5 (08:06→20:11)
--- NOTE | 2024-01-23 09:21 | P.PNIM_ITS ---
Subjective Subjective Date of Service: 01/23/24 Interval History: hemoptysis Physical Exam 2 Vital Signs: Vital Signs: Last Vital Signs Temp 97.6 F 01/23/24 08:00 Pulse 104 H 01/23/24 08:00 Resp 16 01/23/24 08:07 BP 142/82 H 01/23/24 08:00 Pulse Ox 97 01/23/24 08:00 O2 Del Method High Flow Nasal C annula 01/23/24 08:00 O2 Flow Rate 40 01/23/24 08:00 FiO2 65 01/23/24 08:00 Oxygen Flow Rate 4 01/19/24 17:09 BMI result Body Mass Index 33.0 Const: Other: General - no acute distress, appears comfortable Cardiovascular - regular rate and rhythm, S1-S2 Lungs - very tight with poor air entry globally Abdomen - soft, nontender, no rebound or guarding Extremities - no edema bilaterally Neuro - awake and alert, no focal deficits Objective Data Active Medications Acetaminophen (Acetaminophen 325 Mg Tablet) 650 mg PO Q6H PRN PRN Reason: Pain, Mild (Pain Scale 1-3), fever or headache Last Admin: 01/22/24 19:59 Dose: 650 mg Documented By: NGOZI Albuterol/Ipratropium (Albuterol/Iprat 2.5/0.5mg 3 Ml Ampul.Neb) 3 ml INHALE RQ4H WHILE AWAKE [facility] Last Admin: 01/23/24 08:06 Dose: 3 ml Documented By: ANGEL Albuterol/Ipratropium (Albuterol/Iprat 2.5/0.5mg 3 Ml Ampul.Neb) 3 ml INHALE Q4H PRN PRN Reason: Wheezing Last Admin: 01/21/24 23:13 Dose: 3 ml Documented By: SOHAN Apixaban (Apixaban 5 Mg Tablet) 5 mg PO BID [facility] Last Admin: 01/22/24 20:00 Dose: 5 mg Documented By: NGOZI Atorvastatin Calcium (Atorvastatin Calcium 10 Mg Tablet) 10 mg PO BEDTIME [facility] Last Admin: 01/22/24 20:00 Dose: 10 mg Documented By: NGOZI Azithromycin (Azithromycin 500 Mg Tablet) 500 mg PO Q24H [facility] Last Admin: 01/22/24 17:22 Dose: 500 mg Documented By: NJ Buprenorphine/Naloxone (Buprenorphine/Naloxone 2/0.5mg Film) 0.5 film SUBLINGUAL DAILY [facility] Last Admin: 01/22/24 07:57 Dose: 0.5 film Documented By: NJ Buprenorphine/Naloxone (Buprenorphine/Naloxone 2/0.5mg Film) 0.5 film SUBLINGUAL DAILY PRN PRN Reason: Opiate Withdrawal Last Admin: 01/20/24 00:25 Dose: 0.5 film Documented By: BRYAN Calcium Carbonate (Calcium Carbonate 750 Mg Tab.Chew) 750 mg PO Q4H PRN PRN Reason: Heartburn Diltiazem HCl (Diltiazem Hcl Cd 300 Mg Cap.Er.24h) 300 mg PO DAILY [facility]; Protocol Last Admin: 01/22/24 07:56 Dose: 300 mg Documented By: NJ Docusate Sodium (Docusate Sodium 100 Mg Capsule) 100 mg PO BEDTIME PRN PRN Reason: Constipation Folic Acid (Folic Acid 1 Mg Tablet) 1 mg PO DAILY [facility] Last Admin: 01/22/24 07:56 Dose: 1 mg Documented By: NJ Furosemide (Furosemide 40 Mg Tablet) 40 mg PO DAILY [facility]; Protocol Last Admin: 01/22/24 06:24 Dose: 40 mg Documented By: NGOZI Guaifenesin/Codeine Phosphate (Guaifen/Codeine Sf 200/20/10ml 10 Ml Liquid) 5 ml PO Q6H PRN PRN Reason: Cough Last Admin: 01/22/24 20:01 Dose: 5 ml Documented By: NGOZI Cefepime HCl (Maxipime) 2 gm in 50 mls @ 100 mls/hr IV Q8H [facility] Last Infusion: 01/23/24 07:48 Dose: Infused Documented By: NJ Vancomycin HCl 1,500 mg/ (Sodium Chloride) 500 mls @ 333.333 mls/hr IV Q24H [facility] Levothyroxine Sodium (Levothyroxine Sodium 25 Mcg Tablet) 25 mcg PO DAILY@0600 [facility] Last Admin: 01/23/24 07:00 Dose: Not Given Documented By: NGOZI Non-Admin Reason: Patient Asleep Magnesium Hydroxide (Milk Of Magnesia 30 Ml Oral.Susp) 30 ml PO DAILY PRN PRN Reason: Constipation Melatonin (Melatonin 3 Mg Tablet) 6 mg PO BEDTIME PRN PRN Reason: Insomnia Last Admin: 01/22/24 20:03 Dose: 6 mg Documented By: NGOZI Methylprednisolone Sodium Succinate (Methylprednisolone Sod Succ 40 Mg/Ml Vial) 40 mg IVPUSH Q12H [facility] Last Admin: 01/22/24 20:00 Dose: 40 mg Documented By: NGOZI Metoprolol Succinate (Metoprolol Succinate Er 100 Mg Tab.Er.24h) 100 mg PO DAILY [facility]; Protocol Last Admin: 01/22/24 07:56 Dose: 100 mg Documented By: NJ Morphine Sulfate (Morphine Sulfate 2 Mg/Ml Cartridge) 2 mg IVPUSH Q2H PRN; Protocol PRN Reason: work of breathing Last Admin: 01/23/24 03:17 Dose: 2 mg Documented By: NGOZI Non-Formulary Medication (Milnacipran [Savella]) 50 mg PO BID [facility] Omeprazole (Omeprazole 20 Mg Capsule.Dr) 20 mg PO DAILY@0630 [facility] Last Admin: 01/23/24 07:00 Dose: Not Given Documented By: NGOZI Non-Admin Reason: Patient Asleep Paroxetine HCl (Paroxetine Hcl 40 Mg Tablet) 40 mg PO BID [facility] Last Admin: 01/22/24 20:00 Dose: 40 mg Documented By: NGOZI Pharmacy Consult (Consult Rx Vancomycin Dosing) 1 each MISCELLANE DAILY PRN PRN Reason: Consult order Potassium Chloride (Potassium Chloride Er 20 Meq Tab.Er.Prt) 20 meq PO DAILY [facility] Last Admin: 01/22/24 07:57 Dose: 20 meq Documented By: NJ Sodium Chloride (0.9 % Sodium Chloride Flush 3 Ml Syringe) 3 ml IVFLUSH QSHIFT [facility] Last Admin: 01/22/24 23:34 Dose: 3 ml Documented By: NGOZI Theophylline (Theophylline Anhydrous Er 400 Mg Tab.Er.24h) 400 mg PO DAILY [facility] Last Admin: 01/22/24 07:57 Dose: 400 mg Documented By: NJ Zolpidem Tartrate (Zolpidem Tartrate 5 Mg Tablet) 5 mg PO BEDTIME PRN PRN Reason: Insomnia Last Admin: 01/20/24 02:49 Dose: 5 mg Documented By: BRYAN Labs 01/22/24 07:33 10/13/24 06:40 Labs: Laboratory Results - last 24 hr 01/23/24 06:40 Estim Creat Clear Calc 50.6 Estimated GFR 40 Assessment and Plan (1) Acidosis, lactic: Status: Acute Plan 63F PMH [id number] lung cancer status post left upper lobe and right upper lobe wedge resection with metastases on palliative chemotherapy, history of breast cancer, depression, hepatitis-C, hypertension, COPD with chronic hypoxic respiratory failure on 3 L home O2, paroxysmal atrial fibrillation no longer on anticoagulation due to thrombocytopenia and anemia, opiate dependence presented with shortness of breath Acute on chronic hypoxic respiratory failure secondary to COPD with acute decompensation still requiring high flow now with hemoptysis cxr showing possibly developing pneumonia -- vancomycin/cefepime, check nasal MRSA Continue IV steroids, azithromycin, DuoNebs Wean O2 as tolerated check ct chest Stage IV lung cancer Outpatient follow up with Oncology Hypothyroid Continue levothyroxine Paroxysmal atrial fibrillation with rapid ventricular response eliquis heart rate now better controlled, off diltiazem infusion Continue metoprolol, diltiazem DVT prophylaxis with eliquis Full Code reason for continued hospitalization: still wheezy and still hypoxic + possible pneumonia now Quality Stroke Does the patient have a stroke diagnosis?: No VTE Prior VTE?: No VTE Risk Level:: Medical - moderate - high VTE Device Contraindication: Treatment Not Indicated VTE Drug Contraindication: N/A - Med Ordered
[2024-01-23] MEDS: Folic Acid 1 MG TABLET PO (10:20)
[2024-01-23] MEDS: Apixaban 5 MG TABLET PO ×2 (10:20→19:45)
[2024-01-23] MEDS: PARoxetine HCL 40 MG TABLET PO ×2 (10:21→19:45)
[2024-01-23] MEDS: Metoprolol Succinate ER 100 MG TAB.ER.24H PO (10:21)
[2024-01-23] MEDS: Theophylline Anhydrous ER 400 MG TAB.ER.24H PO (10:21)
[2024-01-23] MEDS: dilTIAZem HCL CD 300 MG CAP.ER.24H PO (10:21)
[2024-01-23] MEDS: Furosemide 40 MG TABLET PO (10:22)
[2024-01-23] MEDS: Potassium Chloride ER 20 MEQ TAB.ER.PRT PO (10:22)
[2024-01-23] MEDS: Buprenorphine/Naloxone 2/0.5mg FILM 0.5 FILM SUBLINGUAL (10:22)
[2024-01-23] MEDS: 0.9 % Sodium Chloride Flush 3 ML SYRINGE IVFLUSH ×3 (10:23→19:56)
[2024-01-23] MEDS: methylPREDNISolone Sod Succ 40 MG/ML VIAL IVPUSH ×2 (10:24→19:45)
[2024-01-23] MEDS: vancomycin HCL 1,500 MG in 0.9 % Sodium Chloride 500 ML 333.33 MG IV (13:19)
[2024-01-23] MEDS: guaiFEN/Codeine SF 200/20/10ML 10 ML LIQUID 5 ML PO ×2 (14:02→19:43)
[2024-01-23] MEDS: Azithromycin 500 MG TABLET PO (18:50)
[2024-01-23] MEDS: guaiFENesin DM 600/30 1 TAB TAB.ER.12H PO (19:44)
[2024-01-23] MEDS: Atorvastatin Calcium 10 MG TABLET PO (19:45)
[2024-01-24] VITALS (15 sets, daily range): BP systolic 135–162; BP diastolic 85–106; PULSE 62–108; RESP 17–24; TEMP 36.2–36.6; O2SAT 91–99
[2024-01-24] MEDS: Albuterol/Iprat 2.5/0.5MG 3 ML AMPUL.NEB INHALE ×7 (02:11→23:55)
[2024-01-24] MEDS: Morphine Sulfate 2 MG/ML CARTRIDGE IVPUSH ×4 (02:22→20:47)
[2024-01-24] MEDS: cefEPime HCl/D5W 2 GM/50 ML PIGGYBACK IV ×3 (03:45→20:47)
[2024-01-24] MEDS: Levothyroxine Sodium 25 MCG TABLET PO (05:55)
[2024-01-24] MEDS: Omeprazole 20 MG CAPSULE.DR PO (05:55)
[2024-01-24 07:02] LABS: Anion Gap 14 (12-20); Blood Urea Nitrogen 38 mg/dL (9-16); Calcium 9.3 mg/dL (8.4-10.2); Carbon Dioxide 32 mmol/L (22-29); Chloride 99 mmol/L (96-108); Creatinine Clr Calc Pharmacy 70.4; Estimated Glomerular Filt Rate 58; Glucose Fasting 176 mg/dL (60-99); Potassium 4.5 mmol/L (3.3-5.1); Sodium 140 mmol/L (135-145)
[2024-01-24 07:37] LABS: Hematocrit 33.2 % (37.0-47.0); Hemoglobin 10.8 g/dl (12.0-16.0); Mean Corpuscular HGB Conc 32.5 g/dl (31.0-35.0); Mean Corpuscular Hemoglobin 30.2 pg (27.0-33.0); Mean Corpuscular Volume 92.7 fL (80.0-98.0); Mean Platelet Volume 9.9 fL (9.4-12.3); NRBC Pct Auto 0.2 /100WBC (0.0-0.2); Platelet Count 227 X10*3/uL (160-400); Red Blood Count 3.58 X10*6/uL (4.20-5.50); Red Cell Distribution Width 14.6 % (11.0-16.0); White Blood Count 12.1 X10*3/uL (4.8-10.8)
[2024-01-24] MEDS: Folic Acid 1 MG TABLET PO (08:26)
[2024-01-24] MEDS: dilTIAZem HCL CD 300 MG CAP.ER.24H PO (08:26)
[2024-01-24] MEDS: methylPREDNISolone Sod Succ 40 MG/ML VIAL IVPUSH ×2 (08:26→20:47)
[2024-01-24] MEDS: PARoxetine HCL 40 MG TABLET PO ×2 (08:26→20:48)
[2024-01-24] MEDS: Potassium Chloride ER 20 MEQ TAB.ER.PRT PO (08:26)
[2024-01-24] MEDS: Theophylline Anhydrous ER 400 MG TAB.ER.24H PO (08:26)
[2024-01-24] MEDS: Metoprolol Succinate ER 100 MG TAB.ER.24H PO (08:27)
[2024-01-24] MEDS: Furosemide 40 MG TABLET PO (08:27)
[2024-01-24] MEDS: guaiFENesin DM 600/30 1 TAB TAB.ER.12H PO ×2 (08:27→20:48)
[2024-01-24] MEDS: Buprenorphine/Naloxone 2/0.5mg FILM 0.5 FILM SUBLINGUAL (08:27)
[2024-01-24] MEDS: guaiFEN/Codeine SF 200/20/10ML 10 ML LIQUID 5 ML PO ×2 (08:34→20:48)
[2024-01-24] MEDS: 0.9 % Sodium Chloride Flush 3 ML SYRINGE IVFLUSH ×2 (08:34→20:55)
--- NOTE | 2024-01-24 09:13 | P.PNIM_ITS ---
Subjective Subjective Date of Service: 01/24/24 Interval History: hemoptysis Physical Exam 2 Vital Signs: Vital Signs: Last Vital Signs Temp 97.7 F 01/24/24 07:56 Pulse 99 01/24/24 07:56 Resp 22 H 01/24/24 07:56 BP 138/85 01/24/24 07:56 Pulse Ox 97 01/24/24 07:56 O2 Del Method Nasal Cannula 01/24/24 07:56 O2 Flow Rate 10 01/24/24 07:56 FiO2 65 01/23/24 08:00 Oxygen Flow Rate 4 01/19/24 17:09 BMI result Body Mass Index 33.0 Const: Other: General - no acute distress, appears comfortable Cardiovascular - regular rate and rhythm, S1-S2 Lungs - very tight with poor air entry globally Abdomen - soft, nontender, no rebound or guarding Extremities - no edema bilaterally Neuro - awake and alert, no focal deficits Objective Data Active Medications Acetaminophen (Acetaminophen 325 Mg Tablet) 650 mg PO Q6H PRN PRN Reason: Pain, Mild (Pain Scale 1-3), fever or headache Last Admin: 01/22/24 19:59 Dose: 650 mg Documented By: NGOZI Albuterol/Ipratropium (Albuterol/Iprat 2.5/0.5mg 3 Ml Ampul.Neb) 3 ml INHALE RQ4H WHILE AWAKE COUNTS INCLUDE 234 BEDS AT THE [facility] Last Admin: 01/24/24 07:27 Dose: 3 ml Documented By: QUINN Albuterol/Ipratropium (Albuterol/Iprat 2.5/0.5mg 3 Ml Ampul.Neb) 3 ml INHALE Q4H PRN PRN Reason: Wheezing Last Admin: 01/24/24 06:08 Dose: 3 ml Documented By: CHRISTOPHER Apixaban (Apixaban 5 Mg Tablet) 5 mg PO BID COUNTS INCLUDE 234 BEDS AT [facility] Last Admin: 01/24/24 08:28 Dose: Not Given Documented By: ESTEBAN Non-Admin Reason: hold per Atorvastatin Calcium (Atorvastatin Calcium 10 Mg Tablet) 10 mg PO BEDTIME COUNTS INCLUDE 234 BEDS AT [facility] Last Admin: 01/23/24 19:45 Dose: 10 mg Documented By: TIAGO Azithromycin (Azithromycin 500 Mg Tablet) 500 mg PO Q24H COUNTS INCLUDE 234 BEDS AT [facility] Last Admin: 01/23/24 18:50 Dose: 500 mg Documented By: NJ Buprenorphine/Naloxone (Buprenorphine/Naloxone 2/0.5mg Film) 0.5 film SUBLINGUAL DAILY [facility] Last Admin: 01/24/24 08:27 Dose: 0.5 film Documented By: ESTEBAN Buprenorphine/Naloxone (Buprenorphine/Naloxone 2/0.5mg Film) 0.5 film SUBLINGUAL DAILY PRN PRN Reason: Opiate Withdrawal Last Admin: 01/20/24 00:25 Dose: 0.5 film Documented By: BRYAN Calcium Carbonate (Calcium Carbonate 750 Mg Tab.Chew) 750 mg PO Q4H PRN PRN Reason: Heartburn Diltiazem HCl (Diltiazem Hcl Cd 300 Mg Cap.Er.24h) 300 mg PO DAILY COUNTS INCLUDE 234 BEDS AT [facility]; Protocol Last Admin: 01/24/24 08:26 Dose: 300 mg Documented By: ESTEBAN Docusate Sodium (Docusate Sodium 100 Mg Capsule) 100 mg PO BEDTIME PRN PRN Reason: Constipation Folic Acid (Folic Acid 1 Mg Tablet) 1 mg PO DAILY [facility]S INCLUDE 234 BEDS AT [facility] Last Admin: 01/24/24 08:26 Dose: 1 mg Documented By: ESTEBAN Furosemide (Furosemide 40 Mg Tablet) 40 mg PO DAILY [facility]; Protocol Last Admin: 01/24/24 08:27 Dose: 40 mg Documented By: ESTEBAN Guaifenesin/Codeine Phosphate (Guaifen/Codeine Sf 200/20/10ml 10 Ml Liquid) 5 ml PO Q6H PRN PRN Reason: Cough Last Admin: 01/24/24 08:34 Dose: 5 ml Documented By: ESTEBAN Guaifenesin/Dextromethorphan (Guaifenesin Dm 600/30 1 Tab Tab.Er.12h) 1 tab PO BID [facility] Last Admin: 01/24/24 08:27 Dose: 1 tab Documented By: ESTEBAN Cefepime HCl (Maxipime) 2 gm in 50 mls @ 100 mls/hr IV Q8H [facility] Last Infusion: 01/24/24 05:15 Dose: Infused Documented By: TIAGO Vancomycin HCl 1,500 mg/ (Sodium Chloride) 500 mls @ 333.333 mls/hr IV Q24H COUNTS INCLUDE 234 BEDS AT [facility] Last Infusion: 01/23/24 15:22 Dose: Infused Documented By: HO.SZOTPAT Levothyroxine Sodium (Levothyroxine Sodium 25 Mcg Tablet) 25 mcg PO DAILY@0600 COUNTS INCLUDE 234 BEDS AT [facility] Last Admin: 01/24/24 05:55 Dose: 25 mcg Documented By: TIAGO Magnesium Hydroxide (Milk Of Magnesia 30 Ml Oral.Susp) 30 ml PO DAILY PRN PRN Reason: Constipation Melatonin (Melatonin 3 Mg Tablet) 6 mg PO BEDTIME PRN PRN Reason: Insomnia Last Admin: 01/22/24 20:03 Dose: 6 mg Documented By: NGOZI Methylprednisolone Sodium Succinate (Methylprednisolone Sod Succ 40 Mg/Ml Vial) 40 mg IVPUSH Q12H COUNTS INCLUDE 234 BEDS AT [facility] Last Admin: 01/24/24 08:26 Dose: 40 mg Documented By: ESTEBAN Metoprolol Succinate (Metoprolol Succinate Er 100 Mg Tab.Er.24h) 100 mg PO DAILY COUNTS INCLUDE 234 BEDS AT [facility]; Protocol Last Admin: 01/24/24 08:27 Dose: 100 mg Documented By: ESTEBAN Morphine Sulfate (Morphine Sulfate 2 Mg/Ml Cartridge) 2 mg IVPUSH Q2H PRN; Protocol PRN Reason: work of breathing Last Admin: 01/24/24 06:00 Dose: 2 mg Documented By: TIAGO Non-Formulary Medication (Milnacipran [Savella]) 50 mg PO BID COUNTS INCLUDE 234 BEDS AT [facility] Omeprazole (Omeprazole 20 Mg Capsule.) 20 mg PO DAILY@0630 COUNTS INCLUDE 234 BEDS AT [facility] Last Admin: 01/24/24 05:55 Dose: 20 mg Documented By: TIAGO Paroxetine HCl (Paroxetine Hcl 40 Mg Tablet) 40 mg PO BID COUNTS INCLUDE 234 BEDS AT [facility] Last Admin: 01/24/24 08:26 Dose: 40 mg Documented By: ESTEBAN Pharmacy Consult (Consult Rx Vancomycin Dosing) 1 each MISCELLANE DAILY PRN PRN Reason: Consult order Potassium Chloride (Potassium Chloride Er 20 Meq Tab.Er.Prt) 20 meq PO DAILY COUNTS INCLUDE 234 BEDS AT [facility] Last Admin: 01/24/24 08:26 Dose: 20 meq Documented By: ESTEBAN Sodium Chloride (0.9 % Sodium Chloride Flush 3 Ml Syringe) 3 ml IVFLUSH QSHIFT COUNTS INCLUDE 234 BEDS AT [facility] Last Admin: 01/24/24 08:34 Dose: 3 ml Documented By: ESTEBAN Theophylline (Theophylline Anhydrous Er 400 Mg Tab.Er.24h) 400 mg PO DAILY COUNTS INCLUDE 234 BEDS AT [facility] Last Admin: 01/24/24 08:26 Dose: 400 mg Documented By: ESTEBAN Zolpidem Tartrate (Zolpidem Tartrate 5 Mg Tablet) 5 mg PO BEDTIME PRN PRN Reason: Insomnia Last Admin: 01/20/24 02:49 Dose: 5 mg Documented By: BRYAN Labs 01/24/24 05:57 01/24/24 05:57 Labs: Laboratory Results - last 24 hr 01/24/24 05:57 MCV 92.7 MCH 30.2 MCHC 32.5 RDW 14.6 Plt Count 227 MPV 9.9 Absolute Nucleated RBC 0.030 H Nucleated RBC % (auto) 0.2 Anion Gap 14 Estim Creat Clear Calc 70.4 Estimated GFR 58 Fasting Glucose 176 H Calcium 9.3 D Magnesium 2.0 Assessment and Plan (1) Acidosis, lactic: Status: Acute Plan 63F PMH [id number] lung cancer status post left upper lobe and right upper lobe wedge resection with metastases on palliative chemotherapy, history of breast cancer, depression, hepatitis-C, hypertension, COPD with chronic hypoxic respiratory failure on 3 L home O2, paroxysmal atrial fibrillation no longer on anticoagulation due to thrombocytopenia and anemia, opiate dependence presented with shortness of breath Acute on chronic hypoxic respiratory failure secondary to pneumonia and COPD with acute decompensation weaned to 7L continue to wean hemoptysis - hold eliquis vancomycin/cefepime, check nasal MRSA Continue IV steroids, azithromycin, DuoNebs Wean O2 as tolerated Stage IV lung cancer Outpatient follow up with Oncology Hypothyroid Continue levothyroxine Paroxysmal atrial fibrillation with rapid ventricular response eliquis on hold for hemoptysis heart rate now better controlled, off diltiazem infusion Continue metoprolol, diltiazem DVT prophylaxis with eliquis Full Code reason for continued hospitalization: still wheezy and still hypoxic Quality Stroke Does the patient have a stroke diagnosis?: No VTE Prior VTE?: No VTE Risk Level:: Medical - moderate - high VTE Device Contraindication: Treatment Not Indicated VTE Drug Contraindication: N/A - Med Ordered
[2024-01-24 09:23] LABS: MRSA Nasal PCR NEGATIVE (Negative); SA Nasal PCR NEGATIVE (Negative)
--- NOTE | 2024-01-24 13:47 | HE.PHANOTE ---
Re: Vanco Renal function has improved. Trough returned at 11.0. Increased dose to 1750 mg q24h, w/ predicted AUC 472, predicted trough 12.8. Next trough is 01/24 @ 1200.
[2024-01-24] MEDS: vancomycin HCL 1,000 MG, vancomycin HCL 750 MG in 0.9 % Sodium Chloride 500 ML 267.5 MG IV (15:02)
[2024-01-24] MEDS: Azithromycin 500 MG TABLET PO (16:14)
[2024-01-24] MEDS: Atorvastatin Calcium 10 MG TABLET PO (20:48)
[2024-01-24] MEDS: Docusate Sodium 100 MG CAPSULE PO (20:48)
[2024-01-25] VITALS (16 sets, daily range): BP systolic 137–160; BP diastolic 92–99; PULSE 20–120; RESP 18–122; TEMP 36.2–37.1; O2SAT 92–100
[2024-01-25] MEDS: cefEPime HCl/D5W 2 GM/50 ML PIGGYBACK IV ×3 (04:19→20:34)
[2024-01-25] MEDS: Albuterol/Iprat 2.5/0.5MG 3 ML AMPUL.NEB INHALE ×5 (04:39→18:42)
[2024-01-25] MEDS: Omeprazole 20 MG CAPSULE.DR PO (05:41)
[2024-01-25] MEDS: Levothyroxine Sodium 25 MCG TABLET PO (05:41)
[2024-01-25] MEDS: Morphine Sulfate 2 MG/ML CARTRIDGE IVPUSH ×5 (06:08→22:30)
[2024-01-25 07:16] LABS: Creatinine Clr Calc Pharmacy 59.9; Estimated Glomerular Filt Rate 48
[2024-01-25] MEDS: guaiFEN/Codeine SF 200/20/10ML 10 ML LIQUID 5 ML PO (08:29)
[2024-01-25] MEDS: methylPREDNISolone Sod Succ 40 MG/ML VIAL IVPUSH ×2 (08:29→20:31)
[2024-01-25] MEDS: Buprenorphine/Naloxone 2/0.5mg FILM 0.5 FILM SUBLINGUAL (08:29)
[2024-01-25] MEDS: Furosemide 40 MG TABLET PO (08:30)
[2024-01-25] MEDS: Potassium Chloride ER 20 MEQ TAB.ER.PRT PO (08:30)
[2024-01-25] MEDS: Folic Acid 1 MG TABLET PO (08:30)
[2024-01-25] MEDS: 0.9 % Sodium Chloride Flush 3 ML SYRINGE IVFLUSH ×3 (08:30→20:38)
[2024-01-25] MEDS: dilTIAZem HCL CD 300 MG CAP.ER.24H PO (08:30)
[2024-01-25] MEDS: PARoxetine HCL 40 MG TABLET PO ×2 (08:30→20:38)
[2024-01-25] MEDS: guaiFENesin DM 600/30 1 TAB TAB.ER.12H PO ×2 (08:30→20:37)
[2024-01-25] MEDS: Metoprolol Succinate ER 100 MG TAB.ER.24H PO (08:30)
[2024-01-25] MEDS: Theophylline Anhydrous ER 400 MG TAB.ER.24H PO (08:30)
--- NOTE | 2024-01-25 08:56 | HO.PM.IMPN ---
Subjective Subjective Date of Service: 01/25/24 Interval History: still sob, though a bit better, still with some hemoptysis Physical Exam Vital Signs: Vital Signs: Last Vital Signs Temp 97.1 F 01/25/24 07:40 Pulse 100 01/25/24 07:40 Resp 21 H 01/25/24 08:42 BP 158/94 H 01/25/24 07:40 Pulse Ox 99 01/25/24 07:40 O2 Del Method Nasal Cannula 01/25/24 07:40 O2 Flow Rate 7 01/25/24 07:40 FiO2 65 01/23/24 08:00 Oxygen Flow Rate 4 01/19/24 17:09 BMI result Body Mass Index 33.0 Const: Other: General - no acute distress, appears comfortable Cardiovascular - regular rate and rhythm, S1-S2 Lungs - very tight with poor air entry globally Abdomen - soft, nontender, no rebound or guarding Extremities - no edema bilaterally Neuro - awake and alert, no focal deficits Objective Data Active Medications Acetaminophen (Acetaminophen 325 Mg Tablet) 650 mg PO Q6H PRN PRN Reason: Pain, Mild (Pain Scale 1-3), fever or headache Last Admin: 01/22/24 19:59 Dose: 650 mg Documented By: NGOZI Albuterol/Ipratropium (Albuterol/Iprat 2.5/0.5mg 3 Ml Ampul.Neb) 3 ml INHALE RQ4H WHILE AWAKE [facility] Last Admin: 01/25/24 07:22 Dose: 3 ml Documented By: BUSTER Albuterol/Ipratropium (Albuterol/Iprat 2.5/0.5mg 3 Ml Ampul.Neb) 3 ml INHALE Q4H PRN PRN Reason: Wheezing Last Admin: 01/25/24 04:39 Dose: 3 ml Documented By: CHRISTOPHER Apixaban (Apixaban 5 Mg Tablet) 5 mg PO BID [facility] Last Admin: 01/24/24 08:28 Dose: Not Given Documented By: ESTEBAN Non-Admin Reason: hold per Atorvastatin Calcium (Atorvastatin Calcium 10 Mg Tablet) 10 mg PO BEDTIME [facility] Last Admin: 01/24/24 20:48 Dose: 10 mg Documented By: TIAGO Azithromycin (Azithromycin 500 Mg Tablet) 500 mg PO Q24H [facility] Last Admin: 01/24/24 16:14 Dose: 500 mg Documented By: ESTEBAN Buprenorphine/Naloxone (Buprenorphine/Naloxone 2/0.5mg Film) 0.5 film SUBLINGUAL DAILY [facility] Last Admin: 01/25/24 08:29 Dose: 0.5 film Documented By: KATELIN Buprenorphine/Naloxone (Buprenorphine/Naloxone 2/0.5mg Film) 0.5 film SUBLINGUAL DAILY PRN PRN Reason: Opiate Withdrawal Last Admin: 01/20/24 00:25 Dose: 0.5 film Documented By: BRYAN Calcium Carbonate (Calcium Carbonate 750 Mg Tab.Chew) 750 mg PO Q4H PRN PRN Reason: Heartburn Diltiazem HCl (Diltiazem Hcl Cd 300 Mg Cap.Er.24h) 300 mg PO DAILY [facility]; Protocol Last Admin: 01/25/24 08:30 Dose: 300 mg Documented By: KATELIN Docusate Sodium (Docusate Sodium 100 Mg Capsule) 100 mg PO BEDTIME PRN PRN Reason: Constipation Last Admin: 01/24/24 20:48 Dose: 100 mg Documented By: TIAGO Folic Acid (Folic Acid 1 Mg Tablet) 1 mg PO DAILY [facility] Last Admin: 01/25/24 08:30 Dose: 1 mg Documented By: KATELIN Furosemide (Furosemide 40 Mg Tablet) 40 mg PO DAILY [facility]; Protocol Last Admin: 01/25/24 08:30 Dose: 40 mg Documented By: KATELIN Guaifenesin/Codeine Phosphate (Guaifen/Codeine Sf 200/20/10ml 10 Ml Liquid) 5 ml PO Q6H PRN PRN Reason: Cough Last Admin: 01/25/24 08:29 Dose: 5 ml Documented By: KATELIN Guaifenesin/Dextromethorphan (Guaifenesin Dm 600/30 1 Tab Tab.Er.12h) 1 tab PO BID [facility] Last Admin: 01/25/24 08:30 Dose: 1 tab Documented By: KATELIN Cefepime HCl (Maxipime) 2 gm in 50 mls @ 100 mls/hr IV Q8H [facility] Last Infusion: 01/25/24 05:23 Dose: Infused Documented By: TIAGO Levothyroxine Sodium (Levothyroxine Sodium 25 Mcg Tablet) 25 mcg PO DAILY@0600 [facility] Last Admin: 01/25/24 05:41 Dose: 25 mcg Documented By: TIAGO Magnesium Hydroxide (Milk Of Magnesia 30 Ml Oral.Susp) 30 ml PO DAILY PRN PRN Reason: Constipation Melatonin (Melatonin 3 Mg Tablet) 6 mg PO BEDTIME PRN PRN Reason: Insomnia Last Admin: 01/22/24 20:03 Dose: 6 mg Documented By: NGOZI Methylprednisolone Sodium Succinate (Methylprednisolone Sod Succ 40 Mg/Ml Vial) 40 mg IVPUSH Q12H [facility] Last Admin: 01/25/24 08:29 Dose: 40 mg Documented By: KATELIN Metoprolol Succinate (Metoprolol Succinate Er 100 Mg Tab.Er.24h) 100 mg PO DAILY [facility]; Protocol Last Admin: 01/25/24 08:30 Dose: 100 mg Documented By: JESSICAEMA Morphine Sulfate (Morphine Sulfate 2 Mg/Ml Cartridge) 2 mg IVPUSH Q2H PRN; Protocol PRN Reason: work of breathing Last Admin: 01/25/24 08:42 Dose: 2 mg Documented By: KATELIN Non-Formulary Medication (Milnacipran [Savella]) 50 mg PO BID [facility] Omeprazole (Omeprazole 20 Mg Capsule.Dr) 20 mg PO DAILY@0630 [facility] Last Admin: 01/25/24 05:41 Dose: 20 mg Documented By: TIAGO Paroxetine HCl (Paroxetine Hcl 40 Mg Tablet) 40 mg PO BID [facility] Last Admin: 01/25/24 08:30 Dose: 40 mg Documented By: KATELIN Potassium Chloride (Potassium Chloride Er 20 Meq Tab.Er.Prt) 20 meq PO DAILY [facility] Last Admin: 01/25/24 08:30 Dose: 20 meq Documented By: JESSICAEMA Sodium Chloride (0.9 % Sodium Chloride Flush 3 Ml Syringe) 3 ml IVFLUSH QSHIFT [facility] Last Admin: 01/25/24 08:30 Dose: 3 ml Documented By: COTEMA Theophylline (Theophylline Anhydrous Er 400 Mg Tab.Er.24h) 400 mg PO DAILY [facility] Last Admin: 01/25/24 08:30 Dose: 400 mg Documented By: JESSICAEMA Zolpidem Tartrate (Zolpidem Tartrate 5 Mg Tablet) 5 mg PO BEDTIME PRN PRN Reason: Insomnia Last Admin: 01/20/24 02:49 Dose: 5 mg Documented By: BRYAN Labs 01/24/24 05:57 01/25/24 06:52 Labs: Laboratory Results - last 24 hr 01/23/24 01/24/24 01/25/24 18:56 11:00 06:52 Hold Purple Top SEE NOTE Estim Creat Clear Calc 59.9 Estimated GFR 48 Nasal Screen MRSA (PCR) NEGATIVE Nasal S. aureus Screen NEGATIVE Nasal MRSA/S.aureus Interp SEE NOTE Random Vancomycin 11.0 L Microbiology Microbiology Results: Microbiology 01/19/24 15:02 Blood Culture - Final Blood - Venous No growth after 5 days. 01/19/24 15:02 Blood Culture - Final Blood - Venous No growth after 5 days. Assessment and Plan (1) Acidosis, lactic: Status: Acute Plan 63F PMH [id number] lung cancer status post left upper lobe and right upper lobe wedge resection with metastases on palliative chemotherapy, history of breast cancer, depression, hepatitis-C, hypertension, COPD with chronic hypoxic respiratory failure on 3 L home O2, paroxysmal atrial fibrillation no longer on anticoagulation due to thrombocytopenia and anemia, opiate dependence presented with shortness of breath Acute on chronic hypoxic respiratory failure secondary to pneumonia and COPD with acute decompensation weaned to 5L continue to wean hemoptysis - holding eliquis nasal MRSA negative - dc vanc Continue IV steroids, cefepime, azithromycin, DuoNebs Stage IV lung cancer Outpatient follow up with Oncology Hypothyroid Continue levothyroxine Paroxysmal atrial fibrillation with rapid ventricular response eliquis on hold for hemoptysis Continue metoprolol, diltiazem DVT prophylaxis with eliquis Full Code reason for continued hospitalization: still wheezy and still hypoxic Quality Stroke Does the patient have a stroke diagnosis?: No VTE Prior VTE?: No VTE Risk Level:: Medical - moderate - high VTE Device Contraindication: Treatment Not Indicated VTE Drug Contraindication: N/A - Med Ordered
--- NOTE | 2024-01-25 11:06 | MHC.CM.PN ---
Per MD rounds no discharge today. She is not medically cleared for discharge. Patient continues on 7L Oxygen. DP Home Resume [facility], Home O2 through [facility], and Suboxone thru [facility]. Patient dtr/HCP will provide transportation home.
[2024-01-25] MEDS: Azithromycin 500 MG TABLET PO (15:39)
[2024-01-25] MEDS: Melatonin 3 MG TABLET 6 MG PO (20:37)
[2024-01-25] MEDS: Atorvastatin Calcium 10 MG TABLET PO (20:38)
[2024-01-25] MEDS: Docusate Sodium 100 MG CAPSULE PO (20:38)
[2024-01-26] VITALS (9 sets, daily range): BP systolic 133–158; BP diastolic 76–104; PULSE 79–119; RESP 18–20; TEMP 35.9–36.6; O2SAT 92–99
[2024-01-26] MEDS: cefEPime HCl/D5W 2 GM/50 ML PIGGYBACK IV ×3 (04:36→20:20)
[2024-01-26] MEDS: Levothyroxine Sodium 25 MCG TABLET PO (06:38)
[2024-01-26] MEDS: Acetaminophen 325 MG TABLET 650 MG PO (06:38)
[2024-01-26] MEDS: Omeprazole 20 MG CAPSULE.DR PO (06:38)
[2024-01-26 07:05] LABS: Hematocrit 36.6 % (37.0-47.0); Hemoglobin 11.7 g/dl (12.0-16.0); Mean Corpuscular Hemoglobin 29.5 pg (27.0-33.0); Mean Corpuscular Volume 92.4 fL (80.0-98.0); Mean Platelet Volume 10.1 fL (9.4-12.3); NRBC Pct Auto 0.1 /100WBC (0.0-0.2); Platelet Count 246 X10*3/uL (160-400); Red Blood Count 3.96 X10*6/uL (4.20-5.50); Red Cell Distribution Width 14.6 % (11.0-16.0); White Blood Count 15.6 X10*3/uL (4.8-10.8)
[2024-01-26 07:18] LABS: Anion Gap 14 (12-20); Blood Urea Nitrogen 41 mg/dL (9-16); Calcium 9.3 mg/dL (8.4-10.2); Carbon Dioxide 34 mmol/L (22-29); Chloride 96 mmol/L (96-108); Creatinine Clr Calc Pharmacy 62.1; Estimated Glomerular Filt Rate 50; Glucose Fasting 239 mg/dL (60-99); Potassium 4.5 mmol/L (3.3-5.1); Sodium 139 mmol/L (135-145)
[2024-01-26] MEDS: Albuterol/Iprat 2.5/0.5MG 3 ML AMPUL.NEB INHALE ×4 (07:42→22:23)
[2024-01-26] MEDS: methylPREDNISolone Sod Succ 40 MG/ML VIAL IVPUSH ×2 (08:30→20:15)
[2024-01-26] MEDS: Theophylline Anhydrous ER 400 MG TAB.ER.24H PO (08:30)
[2024-01-26] MEDS: Metoprolol Succinate ER 100 MG TAB.ER.24H PO (08:30)
[2024-01-26] MEDS: Furosemide 40 MG TABLET PO (08:31)
[2024-01-26] MEDS: Potassium Chloride ER 20 MEQ TAB.ER.PRT PO (08:31)
[2024-01-26] MEDS: Buprenorphine/Naloxone 2/0.5mg FILM 0.5 FILM SUBLINGUAL (08:31)
[2024-01-26] MEDS: Folic Acid 1 MG TABLET PO (08:31)
[2024-01-26] MEDS: PARoxetine HCL 40 MG TABLET PO ×2 (08:31→20:16)
[2024-01-26] MEDS: guaiFENesin DM 600/30 1 TAB TAB.ER.12H PO ×2 (08:31→20:16)
[2024-01-26] MEDS: 0.9 % Sodium Chloride Flush 3 ML SYRINGE IVFLUSH ×3 (08:31→20:15)
[2024-01-26] MEDS: dilTIAZem HCL CD 300 MG CAP.ER.24H PO (08:31)
[2024-01-26] MEDS: Morphine Sulfate 2 MG/ML CARTRIDGE IVPUSH ×2 (09:40→16:16)
--- NOTE | 2024-01-26 11:21 | HO.PM.IMPN ---
Subjective Subjective Date of Service: 01/26/24 Interval History: seen and evaluated feels mildly better but still dyspniec with minimal exertion no reported overnight events Review of Systems Review of Systems: Yes all other systems are reviewed and are negative Physical Exam Vital Signs: Vital Signs: Last Vital Signs Temp 96.9 F 01/26/24 08:00 Pulse 94 01/26/24 08:00 Resp 20 01/26/24 08:00 BP 144/79 H 01/26/24 08:00 Pulse Ox 99 01/26/24 08:00 O2 Del Method Nasal Cannula 01/26/24 08:00 O2 Flow Rate 6 01/26/24 08:00 FiO2 65 01/23/24 08:00 Oxygen Flow Rate 4 01/19/24 17:09 BMI result Body Mass Index 33.0 Const: Other: General - no acute distress, appears comfortable Cardiovascular - regular rate and rhythm, S1-S2 Lungs - very tight with poor air entry globally with expiratory wheezes Abdomen - soft, nontender, no rebound or guarding Extremities - no edema bilaterally Neuro - awake and alert, no focal deficits Objective Data Active Medications Acetaminophen (Acetaminophen 325 Mg Tablet) 650 mg PO Q6H PRN PRN Reason: Pain, Mild (Pain Scale 1-3), fever or headache Last Admin: 01/26/24 06:38 Dose: 650 mg Documented By: NGOZI Albuterol/Ipratropium (Albuterol/Iprat 2.5/0.5mg 3 Ml Ampul.Neb) 3 ml INHALE RQ4H WHILE AWAKE [facility] Last Admin: 01/26/24 07:42 Dose: 3 ml Documented By: QUINN Albuterol/Ipratropium (Albuterol/Iprat 2.5/0.5mg 3 Ml Ampul.Neb) 3 ml INHALE Q4H PRN PRN Reason: Wheezing Last Admin: 01/25/24 04:39 Dose: 3 ml Documented By: CHRISTOPHER Apixaban (Apixaban 5 Mg Tablet) 5 mg PO BID [facility] Last Admin: 01/24/24 08:28 Dose: Not Given Documented By: ESTEBAN Non-Admin Reason: hold per Atorvastatin Calcium (Atorvastatin Calcium 10 Mg Tablet) 10 mg PO BEDTIME [facility] Last Admin: 01/25/24 20:38 Dose: 10 mg Documented By: NGOZI Azithromycin (Azithromycin 500 Mg Tablet) 500 mg PO Q24H [facility] Last Admin: 01/25/24 15:39 Dose: 500 mg Documented By: KATELIN Buprenorphine/Naloxone (Buprenorphine/Naloxone 2/0.5mg Film) 0.5 film SUBLINGUAL DAILY [facility] Last Admin: 01/26/24 08:31 Dose: 0.5 film Documented By: ESTEBAN Buprenorphine/Naloxone (Buprenorphine/Naloxone 2/0.5mg Film) 0.5 film SUBLINGUAL DAILY PRN PRN Reason: Opiate Withdrawal Last Admin: 01/20/24 00:25 Dose: 0.5 film Documented By: BRYAN Calcium Carbonate (Calcium Carbonate 750 Mg Tab.Chew) 750 mg PO Q4H PRN PRN Reason: Heartburn Diltiazem HCl (Diltiazem Hcl Cd 300 Mg Cap.Er.24h) 300 mg PO DAILY [facility]; Protocol Last Admin: 01/26/24 08:31 Dose: 300 mg Documented By: ESTEBAN Docusate Sodium (Docusate Sodium 100 Mg Capsule) 100 mg PO BEDTIME PRN PRN Reason: Constipation Last Admin: 01/25/24 20:38 Dose: 100 mg Documented By: NGOZI Folic Acid (Folic Acid 1 Mg Tablet) 1 mg PO DAILY [facility] Last Admin: 01/26/24 08:31 Dose: 1 mg Documented By: ESTEBAN Furosemide (Furosemide 40 Mg Tablet) 40 mg PO DAILY [facility]; Protocol Last Admin: 01/26/24 08:31 Dose: 40 mg Documented By: ESTEBAN Guaifenesin/Codeine Phosphate (Guaifen/Codeine Sf 200/20/10ml 10 Ml Liquid) 5 ml PO Q6H PRN PRN Reason: Cough Last Admin: 01/25/24 08:29 Dose: 5 ml Documented By: KATELIN Guaifenesin/Dextromethorphan (Guaifenesin Dm 600/30 1 Tab Tab.Er.12h) 1 tab PO BID [facility] Last Admin: 01/26/24 08:31 Dose: 1 tab Documented By: ESTEBAN Cefepime HCl (Maxipime) 2 gm in 50 mls @ 100 mls/hr IV Q8H [facility] Last Infusion: 01/26/24 05:06 Dose: Infused Documented By: NGOZI Levothyroxine Sodium (Levothyroxine Sodium 25 Mcg Tablet) 25 mcg PO DAILY@0600 [facility] Last Admin: 01/26/24 06:38 Dose: 25 mcg Documented By: NGOZI Magnesium Hydroxide (Milk Of Magnesia 30 Ml Oral.Susp) 30 ml PO DAILY PRN PRN Reason: Constipation Melatonin (Melatonin 3 Mg Tablet) 6 mg PO BEDTIME PRN PRN Reason: Insomnia Last Admin: 01/25/24 20:37 Dose: 6 mg Documented By: NGOZI Methylprednisolone Sodium Succinate (Methylprednisolone Sod Succ 40 Mg/Ml Vial) 40 mg IVPUSH Q12H [facility] Last Admin: 01/26/24 08:30 Dose: 40 mg Documented By: ESTEBAN Metoprolol Succinate (Metoprolol Succinate Er 100 Mg Tab.Er.24h) 100 mg PO DAILY [facility]; Protocol Last Admin: 01/26/24 08:30 Dose: 100 mg Documented By: ESTEBAN Morphine Sulfate (Morphine Sulfate 2 Mg/Ml Cartridge) 2 mg IVPUSH Q2H PRN; Protocol PRN Reason: work of breathing Last Admin: 01/26/24 09:40 Dose: 2 mg Documented By: ESTEBAN Omeprazole (Omeprazole 20 Mg Capsule.) 20 mg PO DAILY@0630 [facility] Last Admin: 01/26/24 06:38 Dose: 20 mg Documented By: NGOZI Paroxetine HCl (Paroxetine Hcl 40 Mg Tablet) 40 mg PO BID [facility] Last Admin: 01/26/24 08:31 Dose: 40 mg Documented By: ESTEBAN Potassium Chloride (Potassium Chloride Er 20 Meq Tab.Er.Prt) 20 meq PO DAILY [facility] Last Admin: 01/26/24 08:31 Dose: 20 meq Documented By: ESTEBAN Sodium Chloride (0.9 % Sodium Chloride Flush 3 Ml Syringe) 3 ml IVFLUSH QSHIFT [facility] Last Admin: 01/26/24 08:31 Dose: 3 ml Documented By: ESTEBAN Theophylline (Theophylline Anhydrous Er 400 Mg Tab.Er.24h) 400 mg PO DAILY [facility] Last Admin: 01/26/24 08:30 Dose: 400 mg Documented By: ESTEBAN Zolpidem Tartrate (Zolpidem Tartrate 5 Mg Tablet) 5 mg PO BEDTIME PRN PRN Reason: Insomnia Last Admin: 01/20/24 02:49 Dose: 5 mg Documented By: BRYAN Labs 01/26/24 06:06 01/26/24 06:06 Labs: Laboratory Results - last 24 hr 01/26/24 06:06 MCV 92.4 MCH 29.5 MCHC 32.0 RDW 14.6 Plt Count 246 MPV 10.1 Absolute Nucleated RBC 0.020 H Nucleated RBC % (auto) 0.1 Anion Gap 14 Estim Creat Clear Calc 62.1 Estimated GFR 50 Fasting Glucose 239 H Calcium 9.3 Assessment and Plan (1) Acidosis, lactic: Status: Acute (2) Hypomagnesemia: Status: Acute (3) Acute hypokalemia: Status: Acute (4) Atrial fibrillation with rapid ventricular response: Status: Acute (5) COPD (chronic obstructive pulmonary disease): Status: Acute Plan 63F PM [id number] lung cancer status post left upper lobe and right upper lobe wedge resection with metastases on palliative chemotherapy, history of breast cancer, depression, hepatitis-C, hypertension, COPD with chronic hypoxic respiratory failure on 3 L home O2, paroxysmal atrial fibrillation no longer on anticoagulation due to thrombocytopenia and anemia, opiate dependence presented with shortness of breath Acute on chronic hypoxic respiratory failure secondary to pneumonia and COPD with acute decompensation weaned to 5L continue hemoptysis - holding eliquis nasal MRSA negative - dc vanc Continue IV steroids Continue cefepime, azithromycin, DuoNebs wean as tolerated Stage IV lung cancer Outpatient follow up with Oncology Hypothyroid Continue levothyroxine Paroxysmal atrial fibrillation with rapid ventricular response eliquis on hold for hemoptysis Continue metoprolol, diltiazem DVT prophylaxis with eliquis Full Code reason for continued hospitalization: still wheezy and still hypoxic Quality Stroke Does the patient have a stroke diagnosis?: No VTE Prior VTE?: No VTE Risk Level:: Medical - moderate - high VTE Device Contraindication: Treatment Not Indicated VTE Drug Contraindication: N/A - Med Ordered
--- NOTE | 2024-01-26 13:29 | MHC.CM.PN ---
A PT eval was performed today. The recommendation is STR. Patient prefers to go home with services. She is active with [facility]. They will resume services at discharge. A clinical update has been sent to the agency.
[2024-01-26] MEDS: Azithromycin 500 MG TABLET PO (16:09)
[2024-01-26] MEDS: guaiFEN/Codeine SF 200/20/10ML 10 ML LIQUID 5 ML PO (20:15)
[2024-01-26] MEDS: Docusate Sodium 100 MG CAPSULE PO (20:16)
[2024-01-26] MEDS: Atorvastatin Calcium 10 MG TABLET PO (20:16)
[2024-01-26] MEDS: Melatonin 3 MG TABLET 6 MG PO (20:16)
[2024-01-27] VITALS (7 sets, daily range): BP systolic 126–158; BP diastolic 83–104; PULSE 92–106; RESP 20; TEMP 36–36.7; O2SAT 92–98
[2024-01-27] MEDS: cefEPime HCl/D5W 2 GM/50 ML PIGGYBACK IV ×3 (04:25→21:18)
[2024-01-27] MEDS: Morphine Sulfate 2 MG/ML CARTRIDGE IVPUSH (04:37)
[2024-01-27] MEDS: Omeprazole 20 MG CAPSULE.DR PO (06:06)
[2024-01-27] MEDS: Levothyroxine Sodium 25 MCG TABLET PO (06:06)
[2024-01-27] MEDS: methylPREDNISolone Sod Succ 40 MG/ML VIAL IVPUSH ×2 (09:15→21:18)
[2024-01-27] MEDS: Buprenorphine/Naloxone 2/0.5mg FILM 0.5 FILM SUBLINGUAL (09:16)
[2024-01-27] MEDS: guaiFENesin DM 600/30 1 TAB TAB.ER.12H PO ×2 (09:17→21:18)
[2024-01-27] MEDS: Folic Acid 1 MG TABLET PO (09:17)
[2024-01-27] MEDS: PARoxetine HCL 40 MG TABLET PO ×2 (09:17→21:18)
[2024-01-27] MEDS: Furosemide 40 MG TABLET PO ×2 (09:17→17:18)
[2024-01-27] MEDS: dilTIAZem HCL CD 300 MG CAP.ER.24H PO (09:17)
[2024-01-27] MEDS: Theophylline Anhydrous ER 400 MG TAB.ER.24H PO (09:17)
[2024-01-27] MEDS: 0.9 % Sodium Chloride Flush 3 ML SYRINGE IVFLUSH ×2 (09:17→17:18)
[2024-01-27] MEDS: Metoprolol Succinate ER 100 MG TAB.ER.24H PO (09:17)
[2024-01-27] MEDS: Potassium Chloride ER 20 MEQ TAB.ER.PRT PO (09:17)
[2024-01-27] MEDS: Albuterol/Iprat 2.5/0.5MG 3 ML AMPUL.NEB INHALE (14:27)
--- NOTE | 2024-01-27 16:01 | HO.PM.IMPN ---
Subjective Subjective Date of Service: 01/27/24 Interval History: seen and evaluated still dyspniec with minimal exertion and doesnt feel she can manage at home no reported overnight events Review of Systems Review of Systems: Yes all other systems are reviewed and are negative Physical Exam Vital Signs: Vital Signs: Last Vital Signs Temp 97.3 F 01/27/24 15:19 Pulse 102 H 01/27/24 15:19 Resp 20 01/27/24 15:19 BP 148/95 H 01/27/24 15:19 Pulse Ox 92 01/27/24 15:19 O2 Del Method Nasal Cannula 01/27/24 15:19 O2 Flow Rate 6 01/27/24 15:19 FiO2 65 01/23/24 08:00 Oxygen Flow Rate 4 01/19/24 17:09 BMI result Body Mass Index 33.0 Const: Other: General - no acute distress, appears comfortable Cardiovascular - regular rate and rhythm, S1-S2 Lungs - very tight with poor air entry globally with expiratory wheezes Abdomen - soft, nontender, no rebound or guarding Extremities - no edema bilaterally Neuro - awake and alert, no focal deficits Objective Data Active Medications Acetaminophen (Acetaminophen 325 Mg Tablet) 650 mg PO Q6H PRN PRN Reason: Pain, Mild (Pain Scale 1-3), fever or headache Last Admin: 01/26/24 06:38 Dose: 650 mg Documented By: NGOZI Albuterol/Ipratropium (Albuterol/Iprat 2.5/0.5mg 3 Ml Ampul.Neb) 3 ml INHALE Q4H PRN PRN Reason: Wheezing Last Admin: 01/27/24 14:27 Dose: 3 ml Documented By: YAKELIN Apixaban (Apixaban 5 Mg Tablet) 5 mg PO BID [facility] Last Admin: 01/24/24 08:28 Dose: Not Given Documented By: ESTEBAN Non-Admin Reason: hold per Atorvastatin Calcium (Atorvastatin Calcium 10 Mg Tablet) 10 mg PO BEDTIME [facility] Last Admin: 01/26/24 20:16 Dose: 10 mg Documented By: NGOZI Azithromycin (Azithromycin 500 Mg Tablet) 500 mg PO Q24H [facility] Last Admin: 01/26/24 16:09 Dose: 500 mg Documented By: ESTEBAN Buprenorphine/Naloxone (Buprenorphine/Naloxone 2/0.5mg Film) 0.5 film SUBLINGUAL DAILY [facility] Last Admin: 01/27/24 09:16 Dose: 0.5 film Documented By: ESTEBAN Buprenorphine/Naloxone (Buprenorphine/Naloxone 2/0.5mg Film) 0.5 film SUBLINGUAL DAILY PRN PRN Reason: Opiate Withdrawal Last Admin: 01/20/24 00:25 Dose: 0.5 film Documented By: BRYAN Calcium Carbonate (Calcium Carbonate 750 Mg Tab.Chew) 750 mg PO Q4H PRN PRN Reason: Heartburn Diltiazem HCl (Diltiazem Hcl Cd 300 Mg Cap.Er.24h) 300 mg PO DAILY [facility]; Protocol Last Admin: 01/27/24 09:17 Dose: 300 mg Documented By: ESTEBAN Docusate Sodium (Docusate Sodium 100 Mg Capsule) 100 mg PO BEDTIME PRN PRN Reason: Constipation Last Admin: 01/26/24 20:16 Dose: 100 mg Documented By: NGOZI Folic Acid (Folic Acid 1 Mg Tablet) 1 mg PO DAILY [facility] Last Admin: 01/27/24 09:17 Dose: 1 mg Documented By: ESTEBAN Furosemide (Furosemide 40 Mg Tablet) 40 mg PO BID@0900,1800 [facility]; Protocol Guaifenesin/Dextromethorphan (Guaifenesin Dm 600/30 1 Tab Tab.Er.12h) 1 tab PO BID [facility] Last Admin: 01/27/24 09:17 Dose: 1 tab Documented By: ESTEBAN Cefepime HCl (Maxipime) 2 gm in 50 mls @ 100 mls/hr IV Q8H [facility] Last Infusion: 01/27/24 13:16 Dose: Infused Documented By: ESTEBAN Levothyroxine Sodium (Levothyroxine Sodium 25 Mcg Tablet) 25 mcg PO DAILY@0600 [facility] Last Admin: 01/27/24 06:06 Dose: 25 mcg Documented By: NGOZI Magnesium Hydroxide (Milk Of Magnesia 30 Ml Oral.Susp) 30 ml PO DAILY PRN PRN Reason: Constipation Melatonin (Melatonin 3 Mg Tablet) 6 mg PO BEDTIME PRN PRN Reason: Insomnia Last Admin: 01/26/24 20:16 Dose: 6 mg Documented By: NGOZI Methylprednisolone Sodium Succinate (Methylprednisolone Sod Succ 40 Mg/Ml Vial) 40 mg IVPUSH Q12H [facility] Last Admin: 01/27/24 09:15 Dose: 40 mg Documented By: ESTEBAN Metoprolol Succinate (Metoprolol Succinate Er 100 Mg Tab.Er.24h) 100 mg PO DAILY [facility]; Protocol Last Admin: 01/27/24 09:17 Dose: 100 mg Documented By: ESTEBAN Omeprazole (Omeprazole 20 Mg Capsule.Dr) 20 mg PO DAILY@0630 [facility] Last Admin: 01/27/24 06:06 Dose: 20 mg Documented By: NGOZI Paroxetine HCl (Paroxetine Hcl 40 Mg Tablet) 40 mg PO BID [facility] Last Admin: 01/27/24 09:17 Dose: 40 mg Documented By: ESTEBAN Potassium Chloride (Potassium Chloride Er 20 Meq Tab.Er.Prt) 20 meq PO DAILY [facility] Last Admin: 01/27/24 09:17 Dose: 20 meq Documented By: ESTEBAN Sodium Chloride (0.9 % Sodium Chloride Flush 3 Ml Syringe) 3 ml IVFLUSH QSHIFT [facility] Last Admin: 01/27/24 09:17 Dose: 3 ml Documented By: ESTEBAN Theophylline (Theophylline Anhydrous Er 400 Mg Tab.Er.24h) 400 mg PO DAILY [facility] Last Admin: 01/27/24 09:17 Dose: 400 mg Documented By: ESTEBAN Zolpidem Tartrate (Zolpidem Tartrate 5 Mg Tablet) 5 mg PO BEDTIME PRN PRN Reason: Insomnia Last Admin: 01/20/24 02:49 Dose: 5 mg Documented By: ELLYANGB Labs 01/26/24 06:06 01/26/24 06:06 Assessment and Plan (1) Acidosis, lactic: Status: Acute (2) Hypomagnesemia: Status: Acute (3) Acute exacerbation of CHF (congestive heart failure): Status: Acute (4) Acute hypokalemia: Status: Acute Plan 63F PMH [id number] lung cancer status post left upper lobe and right upper lobe wedge resection with metastases on palliative chemotherapy, history of breast cancer, depression, hepatitis-C, hypertension, COPD with chronic hypoxic respiratory failure on 3 L home O2, paroxysmal atrial fibrillation no longer on anticoagulation due to thrombocytopenia and anemia, opiate dependence presented with shortness of breath Acute on chronic hypoxic respiratory failure secondary to pneumonia and COPD with acute decompensation weaned to 5-6L continue hemoptysis improved but still bringing old blood- holding eliquis nasal MRSA negative - dc vanc Continue IV steroids Continue cefepime, azithromycin, DuoNebs wean as tolerated Stage IV lung cancer Outpatient follow up with Oncology Hypothyroid Continue levothyroxine Paroxysmal atrial fibrillation with rapid ventricular response eliquis on hold for hemoptysis Continue metoprolol, diltiazem DVT prophylaxis with eliquis Full Code reason for continued hospitalization: still wheezy and still hypoxic Quality Stroke Does the patient have a stroke diagnosis?: No VTE Prior VTE?: No VTE Risk Level:: Medical - moderate - high VTE Device Contraindication: Treatment Not Indicated VTE Drug Contraindication: N/A - Med Ordered
[2024-01-27] MEDS: Azithromycin 500 MG TABLET PO (17:18)
[2024-01-27] MEDS: Atorvastatin Calcium 10 MG TABLET PO (21:18)
[2024-01-27] MEDS: Acetaminophen 325 MG TABLET 650 MG PO (22:33)
[2024-01-27] MEDS: Zolpidem Tartrate 5 MG TABLET PO (22:33)
[2024-01-28] VITALS (10 sets, daily range): BP systolic 133–182; BP diastolic 80–117; PULSE 92–136; RESP 19–20; TEMP 36–36.6; O2SAT 92–99
[2024-01-28] MEDS: cefEPime HCl/D5W 2 GM/50 ML PIGGYBACK IV ×3 (04:58→20:36)
[2024-01-28] MEDS: Omeprazole 20 MG CAPSULE.DR PO (05:58)
[2024-01-28] MEDS: Levothyroxine Sodium 25 MCG TABLET PO (05:59)
[2024-01-28 07:31] LABS: Anion Gap 15 (12-20); Blood Urea Nitrogen 49 mg/dL (9-16); Calcium 9.6 mg/dL (8.4-10.2); Carbon Dioxide 37 mmol/L (22-29); Chloride 92 mmol/L (96-108); Creatinine Clr Calc Pharmacy 58.8; Estimated Glomerular Filt Rate 47; Glucose Random 255 mg/dL (60-115); Potassium 4.3 mmol/L (3.3-5.1); Sodium 140 mmol/L (135-145)
[2024-01-28 07:37] LABS: B Type Natriuretic Peptide 476 pg/mL (<100)
[2024-01-28] MEDS: Buprenorphine/Naloxone 2/0.5mg FILM 0.5 FILM SUBLINGUAL (09:30)
[2024-01-28] MEDS: dilTIAZem HCL 50 MG/10 ML VIAL 10 MG IVPUSH (09:41)
[2024-01-28] MEDS: Theophylline Anhydrous ER 400 MG TAB.ER.24H PO (09:45)
[2024-01-28] MEDS: Metoprolol Succinate ER 100 MG TAB.ER.24H PO ×2 (09:46→20:25)
[2024-01-28] MEDS: guaiFENesin DM 600/30 1 TAB TAB.ER.12H PO ×2 (09:46→20:24)
[2024-01-28] MEDS: Potassium Chloride ER 20 MEQ TAB.ER.PRT PO (09:46)
[2024-01-28] MEDS: PARoxetine HCL 40 MG TABLET PO ×2 (09:46→20:24)
[2024-01-28] MEDS: dilTIAZem HCL CD 300 MG CAP.ER.24H PO (09:47)
[2024-01-28] MEDS: predniSONE 20 MG TABLET 40 MG PO (09:48)
[2024-01-28] MEDS: Folic Acid 1 MG TABLET PO (09:48)
[2024-01-28] MEDS: 0.9 % Sodium Chloride Flush 3 ML SYRINGE IVFLUSH ×3 (09:49→20:26)
[2024-01-28] MEDS: Furosemide 40 MG/4 ML VIAL IVPUSH ×2 (09:50→17:11)
--- NOTE | 2024-01-28 14:11 | HO.THORCONS ---
History of Present Illness Consult details Consult date: 01/28/24 Narrative: Patient was a 63-year-old female with a plethora of comorbidities and intercurrent medical problems. These include bilateral lung cancers for which he has had surgeries respectively for each. . Patient has advanced COPD, home O2, atrial fibrillation, apparently advanced lung cancer with metastases to bone. Recurrent issue is that she has had several week history of a pneumonia and presents with looks like a chronic/fibrotic left empyema. IR was consulted and felt this was not amenable to there drainage. Thoracic surgical consultation was then obtained for further input. Patient has very significant COPD/emphysema and is according to her barely able to climb 3 steps at a time at her home/porch area of the becoming very dyspneic and requiring rest. Chart was reviewed and patient evaluated PMFSH Past Medical History Medical History Lung cancer Pancytopenia New onset a-fib Cancer of upper lobe of left lung (~2020) Bilateral lung cancer Obesity History of hepatitis C Smoker Tubular adenoma of colon Pulmonary nodules History of breast cancer (~2006) Internal and external bleeding hemorrhoids Cancer of upper lobe of right lung (~2019) GERD (gastroesophageal reflux disease) Depression COPD (chronic obstructive pulmonary disease) HTN (hypertension) Family History Family History Mother History of lung cancer Brother History of lung cancer Maternal Grandmother Breast cancer in female Maternal Aunt Breast cancer in female Daughter Thyroid cancer Surgical History Surgical History History of lung surgery (~2020) History of anterior colporrhaphy (~2016) History of tubal ligation History of lumpectomy of right breast (~2006) History of colonoscopy (~2014) History of hemorrhoidectomy (~2019) History of back surgery (~2011) History of lobectomy of lung (~2019) Social History Social History Household Members: Significant Other Household Members Other:: 2 Housing: Apartment Are you a primary day care assistant to a significant other at home: No Do you presently have visiting nurse or other home services: Yes Unable to assess alcohol history related to: Unable to respond Alcohol intake: never Comment: 1 assist w/02 to bathroom Patient Tobacco Use Status: Former Tobacco user Tobacco use type: Cigarette Cigarette Packs Per Day: 1 Cigarettes Per Day: 10 Years Smoked: 50 Second Hand Smoke Exposure: Yes Substance Use Type: Marijuana Advance Directives Date on File: 02/02/22 service: No Current occupational status: disabled Current occupational exposures/hazards: No Meds Allergies Allergy/AdvReac Type Severity Reaction Status Date / Time lisinopril [LISINOPRIL] Allergy Severe SWELLING- Verified 01/19/24 14:21 ANGIOEDEMA codeine [CODEINE] Allergy Intermediate VOMITING/HIVES, Verified 01/19/24 14:21 vomiting, hives Active Medications: Current Medications Acetaminophen (Acetaminophen 325 Mg Tablet) 650 mg PO Q6H PRN PRN Reason: Pain, Mild (Pain Scale 1-3), fever or headache Last Admin: 01/27/24 22:33 Dose: 650 mg Apixaban (Apixaban 5 Mg Tablet) 5 mg PO BID [facility] Last Admin: 01/24/24 08:28 Dose: Not Given Atorvastatin Calcium (Atorvastatin Calcium 10 Mg Tablet) 10 mg PO BEDTIME [facility] Last Admin: 01/27/24 21:18 Dose: 10 mg Azithromycin (Azithromycin 500 Mg Tablet) 500 mg PO Q24H [facility] Last Admin: 01/27/24 17:18 Dose: 500 mg Buprenorphine/Naloxone (Buprenorphine/Naloxone 2/0.5mg Film) 0.5 film SUBLINGUAL DAILY [facility] Last Admin: 01/28/24 09:30 Dose: 0.5 film Buprenorphine/Naloxone (Buprenorphine/Naloxone 2/0.5mg Film) 0.5 film SUBLINGUAL DAILY PRN PRN Reason: Opiate Withdrawal Last Admin: 01/20/24 00:25 Dose: 0.5 film Calcium Carbonate (Calcium Carbonate 750 Mg Tab.Chew) 750 mg PO Q4H PRN PRN Reason: Heartburn Diltiazem HCl (Diltiazem Hcl Cd 300 Mg Cap.Er.24h) 300 mg PO DAILY [facility]; Protocol Last Admin: 01/28/24 09:47 Dose: 300 mg Docusate Sodium (Docusate Sodium 100 Mg Capsule) 100 mg PO BEDTIME PRN PRN Reason: Constipation Last Admin: 01/26/24 20:16 Dose: 100 mg Folic Acid (Folic Acid 1 Mg Tablet) 1 mg PO DAILY [facility] Last Admin: 01/28/24 09:48 Dose: 1 mg Furosemide (Furosemide 40 Mg/4 Ml Vial) 40 mg IVPUSH BID@0900,1800 [facility]; Protocol Last Admin: 01/28/24 09:50 Dose: 40 mg Guaifenesin/Dextromethorphan (Guaifenesin Dm 600/30 1 Tab Tab.Er.12h) 1 tab PO BID [facility] Last Admin: 01/28/24 09:46 Dose: 1 tab Cefepime HCl (Maxipime) 2 gm in 50 mls @ 100 mls/hr IV Q8H [facility] Last Infusion: 01/28/24 05:53 Dose: Infused Levothyroxine Sodium (Levothyroxine Sodium 25 Mcg Tablet) 25 mcg PO DAILY@0600 [facility] Last Admin: 01/28/24 05:59 Dose: 25 mcg Magnesium Hydroxide (Milk Of Magnesia 30 Ml Oral.Susp) 30 ml PO DAILY PRN PRN Reason: Constipation Melatonin (Melatonin 3 Mg Tablet) 6 mg PO BEDTIME PRN PRN Reason: Insomnia Last Admin: 01/26/24 20:16 Dose: 6 mg Metoprolol Succinate (Metoprolol Succinate Er 100 Mg Tab.Er.24h) 100 mg PO DAILY [facility]; Protocol Last Admin: 01/28/24 09:46 Dose: 100 mg Omeprazole (Omeprazole 20 Mg Capsule.Dr) 20 mg PO DAILY@0630 [facility] Last Admin: 01/28/24 05:58 Dose: 20 mg Paroxetine HCl (Paroxetine Hcl 40 Mg Tablet) 40 mg PO BID [facility] Last Admin: 01/28/24 09:46 Dose: 40 mg Potassium Chloride (Potassium Chloride Er 20 Meq Tab.Er.Prt) 20 meq PO DAILY [facility] Last Admin: 01/28/24 09:46 Dose: 20 meq Prednisone (Prednisone 20 Mg Tablet) 40 mg PO DAILY [facility] Last Admin: 01/28/24 09:48 Dose: 40 mg Sodium Chloride (0.9 % Sodium Chloride Flush 3 Ml Syringe) 3 ml IVFLUSH QSHIFT [facility] Last Admin: 01/28/24 09:49 Dose: 3 ml Theophylline (Theophylline Anhydrous Er 400 Mg Tab.Er.24h) 400 mg PO DAILY [facility] Last Admin: 01/28/24 09:45 Dose: 400 mg Zolpidem Tartrate (Zolpidem Tartrate 5 Mg Tablet) 5 mg PO BEDTIME PRN PRN Reason: Insomnia Last Admin: 01/27/24 22:33 Dose: 5 mg Home Medications ?Medication ?Instructions ?Recorded ?Confirmed ?Last Taken ?Type milnacipran 50 mg tablet (Savella) 50 mg PO BID 01/18/22 01/19/24 01/19/24 History omeprazole 20 mg capsule,delayed 20 mg PO DAILY@0630 01/18/22 01/19/24 01/19/24 History release paroxetine HCl 20 mg tablet 40 mg PO BID 01/18/22 01/19/24 01/19/24 History simvastatin 20 mg tablet 20 mg PO BEDTIME 02/17/22 01/19/24 01/18/24 History albuterol sulfate 90 mcg/actuation 2 puff inhalation Q6H PRN sob 06/22/23 01/19/24 07/09/23 History aerosol inhaler (Ventolin HFA) buprenorphine 2 mg-naloxone 0.5 mg 0.5 - 1 film sublingual DAILY 07/09/23 01/19/24 01/19/24 History sublingual film (Suboxone) docusate sodium 100 mg capsule 100 mg PO BEDTIME PRN stool 07/09/23 01/19/24 11/02/23 History softener umeclidinium 62.5 mcg-vilanterol 1 inh inhalation DAILY 07/09/23 01/19/24 01/19/24 History 25 mcg/actuation powdr for inhalation (Anoro Ellipta) ipratropium 0.5 mg-albuterol 3 mg 3 ml inhalation Q6H PRN wheezing 10/18/23 01/19/24 12/01/23 History (2.5 mg base)/3 mL nebulization soln acetaminophen 500 mg tablet 500 mg PO DAILY PRN Pain 11/03/23 01/19/24 Unknown History furosemide 40 mg tablet 40 mg PO DAILY 01/19/24 01/19/24 01/19/24 History nicotine 21 mg/24 hr daily 21 mg transdermal DAILY PRN 01/19/24 01/19/24 Unknown History transdermal patch Smoking Cessation Physical Exam Vital Signs: Vital Signs: Last Vital Signs Temp 97.8 F 01/28/24 11:15 Pulse 112 H 01/28/24 11:15 Resp 20 01/28/24 11:15 BP 173/91 H 01/28/24 11:15 Pulse Ox 92 01/28/24 11:15 O2 Del Method Nasal Cannula 01/28/24 11:15 O2 Flow Rate 6 01/28/24 11:15 FiO2 65 01/23/24 08:00 Oxygen Flow Rate 4 01/19/24 17:09 BMI result Body Mass Index 33.0 Const: Other: 63-year-old female who looks much older than her stated age. She is on nasal cannula. Chest: Other: Right chest incisions all healed. Patient had left thoracentesis few months ago for a apparent malignant pleural effusion. Diminished breath sounds left Results Labs 01/26/24 06:06 01/28/24 06:08 Labs: Abnormal lab results 01/28/24 Range/Units 06:08 Chloride 92 L (96-108) mmol/L Carbon Dioxide 37 H (22-29) mmol/L BUN 49 H (9-16) mg/dL Random Glucose 255 H (60-115) mg/dL B-Natriuretic Peptide 476 H (<100) pg/mL BMP 01/28/24 06:08 Sodium 140 Potassium 4.3 Chloride 92 L Carbon Dioxide 37 H BUN 49 H Creatinine 1.16 Calcium 9.6 All other labs normal. Assessment and Plan (1) Empyema of left pleural space: Status: Acute (2) Pleural effusion: Status: Acute (3) Supplemental oxygen dependent: Status: Acute (4) Bone metastases: Status: Acute (5) COPD (chronic obstructive pulmonary disease): Status: Acute (6) Hypoxia: Status: Acute (7) Bilateral lung cancer: Status: Chronic Plan CT scan shows a chronic/fibrotic left lower lobe thoracic cavity empyema. The patient would benefit from a decortication but because of her significant comorbidities, anesthesia/Dr. Fleming felt that these intercurrent medical problems are prohibitive risk for the procedure/decortication to be performed at this facility. In discussion with her, patient would probably be better served going to her original thoracic surgeon Dr. Hawthorne at [facility] for further interventions/studies. This was communicated via text to the patient's hospitalist as well. Procedures Date of Service Date of Service: 01/28/24
--- NOTE | 2024-01-28 14:47 | MHC.CM.PN ---
Patient is not yet medically cleared for dc. PT is recommending STR; Patient would like to return home with services. CM will follow.
--- NOTE | 2024-01-28 14:49 | P.CONPL_ITS ---
History of Present Illness History of Present Illness Consult date: 01/28/24 Chief complaint: Afib,copd Narrative: 63-year-old lady with underlying history of non-small cell lung cancer status post left upper lobe and right upper lobe resection with metastatic disease and palliative Keytruda, known chronic bilateral wvly-ibwbeqa-poid-right pleural effusions, hepatitis-C, hypertension, COPD on 2-3 L of supplemental O2 AFib not on anticoagulation secondary to thrombocytopenia admitted on 01/19/2024 with dyspnea, cough, and worsening hypoxia. Patient was empirically treated for COPD exacerbation and community-acquired pneumonia. Patient is also noted to have elevated natriuretic peptide levels. Today patient appears to be at her baseline with O2 requirements down to 2 L of supplemental oxygen Review of Systems 2 Constitutional: Constitutional: Denies daytime sleepiness, Denies excessive sweating, Denies fatigue, Denies fever(s), Denies lethargy, Denies malaise, Denies night sweats, Denies snoring and Denies weight loss Eyes: Eyes: Denies blurry vision and Denies itchy eyes ENT: Denies nasal congestion, Denies post nasal drip, Denies sinus pain, Denies sinus pressure and Denies other ( Thrush) Cardiovascular: Cardiovascular: Denies chest pain, Reports pedal edema, Denies dyspnea, Reports dyspnea on exertion, Denies orthopnea and Denies paroxysmal nocturnal dyspnea Respiratory: Respiratory: Denies cough, Denies hemoptysis, Denies excessive phlegm production, Denies dyspnea, Reports dyspnea on exertion, Denies snoring and Denies wheezing Gastrointestinal: Gastrointestinal: Denies abdominal pain and Denies heartburn Musculoskeletal: Musculoskeletal: Denies myalgias, Denies arthralgias and Denies joint swelling Integumentary/Breasts: Skin/Breast: Denies rash Neurologic: Denies memory loss and Denies seizure-like activity Psychiatric: Psychiatric: Denies abnormal sleep pattern, Denies anxiety and Denies memory loss Endocrine: Endocrine: Denies excessive sweating, Denies fatigue and Denies heat intolerance Hematologic/Lymphatic: Hematologic/Lymphatic: Denies easy bruising Allergic/Immunologic: Allergic/Immunologic: Denies itchy eyes, Denies seasonal rhinorrhea and Denies wheezing PMFSH Past Medical History Medical History Lung cancer Pancytopenia New onset a-fib Cancer of upper lobe of left lung (~2020) Bilateral lung cancer Obesity History of hepatitis C Smoker Tubular adenoma of colon Pulmonary nodules History of breast cancer (~2006) Internal and external bleeding hemorrhoids Cancer of upper lobe of right lung (~2019) GERD (gastroesophageal reflux disease) Depression COPD (chronic obstructive pulmonary disease) HTN (hypertension) Family History Family History Mother History of lung cancer Brother History of lung cancer Maternal Grandmother Breast cancer in female Maternal Aunt Breast cancer in female Daughter Thyroid cancer Surgical History Surgical History History of lung surgery (~2020) History of anterior colporrhaphy (~2016) History of tubal ligation History of lumpectomy of right breast (~2006) History of colonoscopy (~2014) History of hemorrhoidectomy (~2019) History of back surgery (~2011) History of lobectomy of lung (~2019) Social History Social History Household Members: Significant Other Household Members Other:: 2 Housing: Apartment Are you a primary group care worker to a significant other at home: No Do you presently have visiting nurse or other home services: Yes Unable to assess alcohol history related to: Unable to respond Alcohol intake: never Comment: 1 assist w/02 to bathroom Patient Tobacco Use Status: Former Tobacco user Tobacco use type: Cigarette Cigarette Packs Per Day: 1 Cigarettes Per Day: 10 Years Smoked: 50 Second Hand Smoke Exposure: Yes Substance Use Type: Marijuana Advance Directives Date on File: 02/02/22 service: No Current occupational status: disabled Current occupational exposures/hazards: No Meds Allergies Allergy/AdvReac Type Severity Reaction Status Date / Time lisinopril [LISINOPRIL] Allergy Severe SWELLING- Verified 01/19/24 14:21 ANGIOEDEMA codeine [CODEINE] Allergy Intermediate VOMITING/HIVES, Verified 01/19/24 14:21 vomiting, hives Active Medications: Current Medications Acetaminophen (Acetaminophen 325 Mg Tablet) 650 mg PO Q6H PRN PRN Reason: Pain, Mild (Pain Scale 1-3), fever or headache Last Admin: 01/27/24 22:33 Dose: 650 mg Apixaban (Apixaban 5 Mg Tablet) 5 mg PO BID [facility] Last Admin: 01/24/24 08:28 Dose: Not Given Atorvastatin Calcium (Atorvastatin Calcium 10 Mg Tablet) 10 mg PO BEDTIME [facility] Last Admin: 01/27/24 21:18 Dose: 10 mg Azithromycin (Azithromycin 500 Mg Tablet) 500 mg PO Q24H [facility] Last Admin: 01/27/24 17:18 Dose: 500 mg Buprenorphine/Naloxone (Buprenorphine/Naloxone 2/0.5mg Film) 0.5 film SUBLINGUAL DAILY [facility] Last Admin: 01/28/24 09:30 Dose: 0.5 film Buprenorphine/Naloxone (Buprenorphine/Naloxone 2/0.5mg Film) 0.5 film SUBLINGUAL DAILY PRN PRN Reason: Opiate Withdrawal Last Admin: 01/20/24 00:25 Dose: 0.5 film Calcium Carbonate (Calcium Carbonate 750 Mg Tab.Chew) 750 mg PO Q4H PRN PRN Reason: Heartburn Diltiazem HCl (Diltiazem Hcl Cd 300 Mg Cap.Er.24h) 300 mg PO DAILY [facility]; Protocol Last Admin: 01/28/24 09:47 Dose: 300 mg Docusate Sodium (Docusate Sodium 100 Mg Capsule) 100 mg PO BEDTIME PRN PRN Reason: Constipation Last Admin: 01/26/24 20:16 Dose: 100 mg Folic Acid (Folic Acid 1 Mg Tablet) 1 mg PO DAILY [facility] Last Admin: 01/28/24 09:48 Dose: 1 mg Furosemide (Furosemide 40 Mg/4 Ml Vial) 40 mg IVPUSH BID@0900,1800 [facility]; Protocol Last Admin: 01/28/24 09:50 Dose: 40 mg Guaifenesin/Dextromethorphan (Guaifenesin Dm 600/30 1 Tab Tab.Er.12h) 1 tab PO BID [facility] Last Admin: 01/28/24 09:46 Dose: 1 tab Cefepime HCl (Maxipime) 2 gm in 50 mls @ 100 mls/hr IV Q8H [facility] Last Infusion: 01/28/24 05:53 Dose: Infused Levothyroxine Sodium (Levothyroxine Sodium 25 Mcg Tablet) 25 mcg PO DAILY@0600 [facility] Last Admin: 01/28/24 05:59 Dose: 25 mcg Magnesium Hydroxide (Milk Of Magnesia 30 Ml Oral.Susp) 30 ml PO DAILY PRN PRN Reason: Constipation Melatonin (Melatonin 3 Mg Tablet) 6 mg PO BEDTIME PRN PRN Reason: Insomnia Last Admin: 01/26/24 20:16 Dose: 6 mg Metoprolol Succinate (Metoprolol Succinate Er 100 Mg Tab.Er.24h) 100 mg PO DAILY [facility]; Protocol Last Admin: 01/28/24 09:46 Dose: 100 mg Omeprazole (Omeprazole 20 Mg Capsule.Dr) 20 mg PO DAILY@0630 [facility] Last Admin: 01/28/24 05:58 Dose: 20 mg Paroxetine HCl (Paroxetine Hcl 40 Mg Tablet) 40 mg PO BID [facility] Last Admin: 01/28/24 09:46 Dose: 40 mg Potassium Chloride (Potassium Chloride Er 20 Meq Tab.Er.Prt) 20 meq PO DAILY [facility] Last Admin: 01/28/24 09:46 Dose: 20 meq Prednisone (Prednisone 20 Mg Tablet) 40 mg PO DAILY [facility] Last Admin: 01/28/24 09:48 Dose: 40 mg Sodium Chloride (0.9 % Sodium Chloride Flush 3 Ml Syringe) 3 ml IVFLUSH QSHIFT [facility] Last Admin: 01/28/24 09:49 Dose: 3 ml Theophylline (Theophylline Anhydrous Er 400 Mg Tab.Er.24h) 400 mg PO DAILY [facility] Last Admin: 01/28/24 09:45 Dose: 400 mg Zolpidem Tartrate (Zolpidem Tartrate 5 Mg Tablet) 5 mg PO BEDTIME PRN PRN Reason: Insomnia Last Admin: 01/27/24 22:33 Dose: 5 mg Home Medications ?Medication ?Instructions ?Recorded ?Confirmed ?Last Taken ?Type milnacipran 50 mg tablet (Savella) 50 mg PO BID 01/18/22 01/19/24 01/19/24 History omeprazole 20 mg capsule,delayed 20 mg PO DAILY@0630 01/18/22 01/19/24 01/19/24 History release paroxetine HCl 20 mg tablet 40 mg PO BID 01/18/22 01/19/24 01/19/24 History simvastatin 20 mg tablet 20 mg PO BEDTIME 02/17/22 01/19/24 01/18/24 History albuterol sulfate 90 mcg/actuation 2 puff inhalation Q6H PRN sob 06/22/23 01/19/24 07/09/23 History aerosol inhaler (Ventolin HFA) buprenorphine 2 mg-naloxone 0.5 mg 0.5 - 1 film sublingual DAILY 07/09/23 01/19/24 01/19/24 History sublingual film (Suboxone) docusate sodium 100 mg capsule 100 mg PO BEDTIME PRN stool 07/09/23 01/19/24 11/02/23 History softener umeclidinium 62.5 mcg-vilanterol 1 inh inhalation DAILY 07/09/23 01/19/24 01/19/24 History 25 mcg/actuation powdr for inhalation (Anoro Ellipta) ipratropium 0.5 mg-albuterol 3 mg 3 ml inhalation Q6H PRN wheezing 10/18/23 01/19/24 12/01/23 History (2.5 mg base)/3 mL nebulization soln acetaminophen 500 mg tablet 500 mg PO DAILY PRN Pain 11/03/23 01/19/24 Unknown History furosemide 40 mg tablet 40 mg PO DAILY 01/19/24 01/19/24 01/19/24 History nicotine 21 mg/24 hr daily 21 mg transdermal DAILY PRN 01/19/24 01/19/24 Unknown History transdermal patch Smoking Cessation Physical Exam 2 Vital Signs: Vital Signs: Last Vital Signs Temp 97.8 F 01/28/24 11:15 Pulse 112 H 01/28/24 11:15 Resp 20 01/28/24 11:15 BP 173/91 H 01/28/24 11:15 Pulse Ox 92 01/28/24 11:15 O2 Del Method Nasal Cannula 01/28/24 11:15 O2 Flow Rate 6 01/28/24 11:15 FiO2 65 01/23/24 08:00 Oxygen Flow Rate 4 01/19/24 17:09 BMI result Body Mass Index 33.0 Const: General: no acute distress and alert Nutritional Appearance: not obese Orientation/consciousness: Other orientation findings ( oriented) HEENT: Head: Yes atraumatic Eyes: General: appearance normal, both eyes and all related structures S clerae: sclerae normal EOM: EOMs intact bilaterally Neck: Neck: Yes supple Lymphatic: no lymphadenopathy noted Resp: Effort & Inspection: normal respiratory effort and no use of accessory muscles Auscultation: crackles (Left-sided) Cardio: Rate: tachycardic Rhythm: regular rhythm Heart sounds: no gallops, no murmurs and no rubs Skin: General skin exam: other ( warm) Extrem: General: No clubbing, No cyanosis and Yes edema (1+ bilateral) Results Laboratory Findings 01/26/24 06:06 01/28/24 06:08 Abnormal lab findings: Abnormal Labs 01/19/24 01/19/24 01/19/24 15:02 15:08 17:43 WBC RBC 3.61 L Hgb 10.9 L Hct 33.1 L Immature Gran % (Auto) 0.5 H Abs Immat Gran (auto) 0.04 H Absolute Nucleated RBC VBG pH 7.45 H VBG HCO3 33 H Potassium 3.0 L Chloride Carbon Dioxide 31 H BUN Creatinine Random Glucose 194 H Fasting Glucose Lactic Acid 3.9 H* Lactic Acid F/U @ 2Hr 4.7 H* Lactic Acid F/U @ 4Hr Magnesium 1.5 L Troponin I High Sens 20.8 H C-Reactive Protein 7.20 H B-Natriuretic Peptide 272 H Random Vancomycin 01/19/24 01/20/24 01/21/24 20:22 06:11 06:56 WBC 15.8 H 18.4 H RBC 3.43 L 3.58 L Hgb 10.4 L 10.7 L Hct 31.2 L 33.3 L Immature Gran % (Auto) Abs Immat Gran (auto) Absolute Nucleated RBC VBG pH VBG HCO3 Potassium Chloride Carbon Dioxide BUN 18 H 34 H Creatinine 1.51 H Random Glucose Fasting Glucose 154 H 193 H Lactic Acid Lactic Acid F/U @ 2Hr Lactic Acid F/U @ 4Hr 7.6 H* Magnesium Troponin I High Sens C-Reactive Protein B-Natriuretic Peptide Random Vancomycin 01/22/24 01/22/24 01/24/24 07:33 07:44 05:57 WBC 19.8 H 12.1 H RBC 3.43 L 3.58 L Hgb 10.3 L 10.8 L Hct 31.7 L 33.2 L Immature Gran % (Auto) Abs Immat Gran (auto) Absolute Nucleated RBC 0.030 H VBG pH 7.46 H VBG HCO3 29 H Potassium Chloride Carbon Dioxide 32 H BUN 38 H 38 H Creatinine Random Glucose Fasting Glucose 197 H 176 H Lactic Acid Lactic Acid F/U @ 2Hr Lactic Acid F/U @ 4Hr Magnesium Troponin I High Sens C-Reactive Protein B-Natriuretic Peptide 493 H Random Vancomycin 01/24/24 01/26/24 01/28/24 11:00 06:06 06:08 WBC 15.6 H RBC 3.96 L Hgb 11.7 L Hct 36.6 L Immature Gran % (Auto) Abs Immat Gran (auto) Absolute Nucleated RBC 0.020 H VBG pH VBG HCO3 Potassium Chloride 92 L Carbon Dioxide 34 H 37 H BUN 41 H 49 H Creatinine Random Glucose 255 H Fasting Glucose 239 H Lactic Acid Lactic Acid F/U @ 2Hr Lactic Acid F/U @ 4Hr Magnesium Troponin I High Sens C-Reactive Protein B-Natriuretic Peptide 476 H Random Vancomycin 11.0 L Microbiology: Microbiology 01/19/24 15:02 Blood - Venous Blood Culture - Final No growth after 5 days. 01/19/24 15:02 Blood - Venous Blood Culture - Final No growth after 5 days. Assessment and Plan (1) COPD (chronic obstructive pulmonary disease): Status: Acute (2) Acute on chronic hypoxic respiratory failure: Status: Resolved (3) Lung cancer: Qualifiers: Laterality: right Lung location: unspecified part of lung Qualified Code(s): C34.91 - Malignant neoplasm of unspecified part of right bronchus or lung Status: Inactive (4) Pleural effusion: Status: Acute Plan Impression: 63-year-old lady with underlying lung cancer on palliative chemotherapy admitted with acute on chronic hypoxic respiratory failure in treated from COPD exacerbation/community-acquired pneumonia with improving, but noted to have worsening left-sided ground-glass infiltrate and known chronic effusions. Recommendations: Effusions chronic and at this time likely fibrosed and loculated will not be amenable to chemical decortication and will require surgical procedure, however at this time unlikely a significant contributing factor to her presentation, thus suggest clinical observation. Underlying COPD with resolved exacerbation. Does have elevated natriuretic peptide over baseline and lower extremity edema, may benefit from additional diuresis. At this time appears to be at baseline supplemental oxygen requirements. Procedures Date of Service Date of Service: 01/28/24
--- NOTE | 2024-01-28 15:33 | HO.PM.IMPN ---
Subjective Subjective Date of Service: 01/28/24 Interval History: seen and evaluated this morning feels mildly better but went into Afib w RvR CXR showing left sided effusion on 5-7L O2 no other events Review of Systems Review of Systems: Yes all other systems are reviewed and are negative Physical Exam Vital Signs: Vital Signs: Last Vital Signs Temp 97.8 F 01/28/24 11:15 Pulse 112 H 01/28/24 11:15 Resp 20 01/28/24 11:15 BP 173/91 H 01/28/24 11:15 Pulse Ox 92 01/28/24 11:15 O2 Del Method Nasal Cannula 01/28/24 11:15 O2 Flow Rate 6 01/28/24 11:15 FiO2 65 01/23/24 08:00 Oxygen Flow Rate 4 01/19/24 17:09 BMI result Body Mass Index 33.0 Const: Other: General - no acute distress, appears comfortable Cardiovascular - regular rate and rhythm, S1-S2 Lungs -poor bilateral air entry mainly left LL with scattered expiratory wheezes Abdomen - soft, nontender, no rebound or guarding Extremities - no edema bilaterally Neuro - awake and alert, no focal deficits Objective Data Active Medications Acetaminophen (Acetaminophen 325 Mg Tablet) 650 mg PO Q6H PRN PRN Reason: Pain, Mild (Pain Scale 1-3), fever or headache Last Admin: 01/27/24 22:33 Dose: 650 mg Documented By: VARINDER Apixaban (Apixaban 5 Mg Tablet) 5 mg PO BID [facility] Last Admin: 01/24/24 08:28 Dose: Not Given Documented By: ESTEBAN Non-Admin Reason: hold per Atorvastatin Calcium (Atorvastatin Calcium 10 Mg Tablet) 10 mg PO BEDTIME [facility] Last Admin: 01/27/24 21:18 Dose: 10 mg Documented By: VARINDER Buprenorphine/Naloxone (Buprenorphine/Naloxone 2/0.5mg Film) 0.5 film SUBLINGUAL DAILY [facility] Last Admin: 01/28/24 09:30 Dose: 0.5 film Documented By: WALE Buprenorphine/Naloxone (Buprenorphine/Naloxone 2/0.5mg Film) 0.5 film SUBLINGUAL DAILY PRN PRN Reason: Opiate Withdrawal Last Admin: 01/20/24 00:25 Dose: 0.5 film Documented By: BRYAN Calcium Carbonate (Calcium Carbonate 750 Mg Tab.Chew) 750 mg PO Q4H PRN PRN Reason: Heartburn Levalbuterol HCl 1.25 mg/ (Ipratropium [place] 0.5 mg) 0 mg INHALE RQ6H WHILE AWAKE [facility] Diltiazem HCl (Diltiazem Hcl Cd 180 Mg Cap.Er.24h) 360 mg PO DAILY [facility]; Protocol Docusate Sodium (Docusate Sodium 100 Mg Capsule) 100 mg PO BEDTIME PRN PRN Reason: Constipation Last Admin: 01/26/24 20:16 Dose: 100 mg Documented By: NGOZI Folic Acid (Folic Acid 1 Mg Tablet) 1 mg PO DAILY [facility] Last Admin: 01/28/24 09:48 Dose: 1 mg Documented By: WALE Furosemide (Furosemide 40 Mg/4 Ml Vial) 40 mg IVPUSH BID@0900,1800 [facility]; Protocol Last Admin: 01/28/24 09:50 Dose: 40 mg Documented By: WALE Guaifenesin/Dextromethorphan (Guaifenesin Dm 600/30 1 Tab Tab.Er.12h) 1 tab PO BID [facility] Last Admin: 01/28/24 09:46 Dose: 1 tab Documented By: WALE Cefepime HCl (Maxipime) 2 gm in 50 mls @ 100 mls/hr IV Q8H [facility] Last Infusion: 01/28/24 14:35 Dose: Infused Documented By: WALE Magnesium Sulfate (Magnesium Sulfate/H2o) 2 gm in 50 mls @ 25 mls/hr IV ONCE ONE Stop: 01/28/24 17:31 Levothyroxine Sodium (Levothyroxine Sodium 25 Mcg Tablet) 25 mcg PO DAILY@0600 [facility] Last Admin: 01/28/24 05:59 Dose: 25 mcg Documented By: VARINDER Magnesium Hydroxide (Milk Of Magnesia 30 Ml Oral.Susp) 30 ml PO DAILY PRN PRN Reason: Constipation Melatonin (Melatonin 3 Mg Tablet) 6 mg PO BEDTIME PRN PRN Reason: Insomnia Last Admin: 01/26/24 20:16 Dose: 6 mg Documented By: NGOZI Metoprolol Succinate (Metoprolol Succinate Er 100 Mg Tab.Er.24h) 100 mg PO BID [facility]; Protocol Omeprazole (Omeprazole 20 Mg Capsule.Dr) 20 mg PO DAILY@0630 [facility] Last Admin: 01/28/24 05:58 Dose: 20 mg Documented By: VARINDER Paroxetine HCl (Paroxetine Hcl 40 Mg Tablet) 40 mg PO BID [facility] Last Admin: 01/28/24 09:46 Dose: 40 mg Documented By: WALE Potassium Chloride (Potassium Chloride Er 20 Meq Tab.Er.Prt) 20 meq PO DAILY [facility] Last Admin: 01/28/24 09:46 Dose: 20 meq Documented By: WALE Prednisone (Prednisone 20 Mg Tablet) 40 mg PO DAILY [facility] Last Admin: 01/28/24 09:48 Dose: 40 mg Documented By: WALE Sodium Chloride (0.9 % Sodium Chloride Flush 3 Ml Syringe) 3 ml IVFLUSH QSHIFT [facility] Last Admin: 01/28/24 09:49 Dose: 3 ml Documented By: WALE Theophylline (Theophylline Anhydrous Er 400 Mg Tab.Er.24h) 400 mg PO DAILY [facility] Last Admin: 01/28/24 09:45 Dose: 400 mg Documented By: WALE Zolpidem Tartrate (Zolpidem Tartrate 5 Mg Tablet) 5 mg PO BEDTIME PRN PRN Reason: Insomnia Last Admin: 01/27/24 22:33 Dose: 5 mg Documented By: VARINDER Labs 01/26/24 06:06 01/28/24 06:08 Labs: Laboratory Results - last 24 hr 01/28/24 06:08 Anion Gap 15 Estim Creat Clear Calc 58.8 Estimated GFR 47 Random Glucose 255 H Calcium 9.6 B-Natriuretic Peptide 476 H Assessment and Plan (1) Acidosis, lactic: Status: Acute (2) Acute hypokalemia: Status: Acute (3) Pleural effusion: Status: Acute (4) Hypomagnesemia: Status: Acute (5) Atrial fibrillation with rapid ventricular response: Status: Acute Plan 63F PMH [id number] lung cancer status post left upper lobe and right upper lobe wedge resection with metastases on palliative chemotherapy, history of breast cancer, depression, hepatitis-C, hypertension, COPD with chronic hypoxic respiratory failure on 3 L home O2, paroxysmal atrial fibrillation no longer on anticoagulation due to thrombocytopenia and anemia, opiate dependence presented with shortness of breath Acute on chronic hypoxic respiratory failure secondary to pneumonia and COPD with acute decompensation weaned to 5-7L continue hemoptysis improved but still bringing old blood- holding eliquis Change steroids to PO Continue cefepime, dc azithromycin Bronchodilator nebulizers Pulm input appreciated, 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 Thoracic surgery suggests decortication but anesthasia thinks she needs higher level of care for that surgery, to follow with dr Tavarez as outpatient wean as tolerated Stage IV lung cancer Outpatient follow up with Oncology Hypothyroid Continue levothyroxine Paroxysmal atrial fibrillation with rapid ventricular response Add more Cardizem Changed metoprolol to bid, diltiazem to 360 CD restart Eliquis DVT prophylaxis with eliquis Full Code reason for continued hospitalization: in Afib w RvR and still hypoxic Quality Stroke Does the patient have a stroke diagnosis?: No VTE Prior VTE?: No VTE Risk Level:: Medical - moderate - high VTE Device Contraindication: Treatment Not Indicated VTE Drug Contraindication: N/A - Med Ordered
[2024-01-28] MEDS: levalbuterol HCL 1.25 MG, Ipratropium Bromide 0.5 MG INHALE (15:38)
[2024-01-28] MEDS: dilTIAZem HCL 60 MG TABLET PO (17:10)
[2024-01-28] MEDS: Magnesium Sulfate/H2O 2 GM/50 ML PIGGYBACK IV (17:11)
[2024-01-28] MEDS: Digoxin 0.5 MG/2 ML AMPUL 0.25 MG IVPUSH (18:39)
--- NOTE | 2024-01-28 19:54 | PC.NURSE ---
Pt with uncontrolled afib. MD Horne aware and IV Cardizem given as ordered. Pt recieved scheduled meds and additional dose of PO cardizem with shortlived moderate effect. made aware of HR trending up to 150 unsustained and IV digoxin given with increased effect and HR down to 100-120's.
[2024-01-28] MEDS: Atorvastatin Calcium 10 MG TABLET PO (20:24)
[2024-01-28] MEDS: Apixaban 5 MG TABLET PO (20:25)
[2024-01-28] MEDS: Zolpidem Tartrate 5 MG TABLET PO (23:47)
[2024-01-29] MEDS: Digoxin 0.5 MG/2 ML AMPUL 0.25 MG IVPUSH ×2 (00:53→06:43)
[2024-01-29 03:46] VITALS: BP 128/70; PULSE 114; RESP 19; TEMP 36.7; O2SAT 96
[2024-01-29] MEDS: cefEPime HCl/D5W 2 GM/50 ML PIGGYBACK IV ×2 (04:35→11:20)
[2024-01-29] MEDS: Levothyroxine Sodium 25 MCG TABLET PO (06:42)
[2024-01-29] MEDS: Omeprazole 20 MG CAPSULE.DR PO (06:42)
[2024-01-29 06:44] LABS: Digoxin 0.7 ng/mL (0.8-2.0)
[2024-01-29 07:04] LABS: Anion Gap 13 (12-20); Blood Urea Nitrogen 44 mg/dL (9-16); Calcium 9.6 mg/dL (8.4-10.2); Carbon Dioxide 39 mmol/L (22-29); Chloride 91 mmol/L (96-108); Creatinine Clr Calc Pharmacy 55.9; Estimated Glomerular Filt Rate 45; Glucose Random 178 mg/dL (60-115); Magnesium 2.1 mg/dL (1.6-2.6); Potassium 4.1 mmol/L (3.3-5.1); Sodium 139 mmol/L (135-145)
[2024-01-29] MEDS: levalbuterol HCL 1.25 MG, Ipratropium Bromide 0.5 MG INHALE (07:42)
[2024-01-29 07:45] VITALS: PULSE 101; RESP 18; O2SAT 98
[2024-01-29 08:00] VITALS: BP 148/101; PULSE 129; RESP 20; TEMP 36.1; O2SAT 97
[2024-01-29 08:27] VITALS: BP 148/86
[2024-01-29] MEDS: Buprenorphine/Naloxone 2/0.5mg FILM 0.5 FILM SUBLINGUAL (09:34)
[2024-01-29] MEDS: dilTIAZem HCL CD 180 MG CAP.ER.24H 360 MG PO (09:34)
[2024-01-29] MEDS: guaiFENesin DM 600/30 1 TAB TAB.ER.12H PO (09:34)
[2024-01-29] MEDS: Theophylline Anhydrous ER 400 MG TAB.ER.24H PO (09:34)
[2024-01-29] MEDS: Acetaminophen 325 MG TABLET 650 MG PO (09:34)
[2024-01-29] MEDS: PARoxetine HCL 40 MG TABLET PO (09:34)
[2024-01-29] MEDS: Potassium Chloride ER 20 MEQ TAB.ER.PRT PO (09:34)
[2024-01-29] MEDS: Furosemide 40 MG/4 ML VIAL IVPUSH (09:34)
[2024-01-29] MEDS: Folic Acid 1 MG TABLET PO (09:34)
[2024-01-29] MEDS: 0.9 % Sodium Chloride Flush 3 ML SYRINGE IVFLUSH (09:35)
[2024-01-29] MEDS: Apixaban 5 MG TABLET PO (09:35)
[2024-01-29] MEDS: predniSONE 20 MG TABLET 40 MG PO (09:35)
[2024-01-29] MEDS: Metoprolol Succinate ER 100 MG TAB.ER.24H PO (09:35)
--- NOTE | 2024-01-29 10:40 | W.MHC.F2F ---
Service Date Service Date: 01/29/24 Encounter Date of encounter: 01/29/24 Reasons for Services Signs and symptoms assessed: PHysical deconditioning Medication management Reason for mcfp: medication management and teach disease management Reason for physical therapy: home safety and mobility and therapeutic exercises Homebound: Leaving the home is medically contraindicated at this time without the asist of a device and/or another person due th the listed conditions above and below. Reason homebound: unable to drive Certification: Based on the above findings, I certify that this patient is confined to the home and needs intermittent mcfp care, physical therapy and/or speech therapy, or continues to need occupational therapy. The patient is under my care, and I have initiated the establishment of the plan of care. The patient will be followed by a physician who will periodically review the plan of care. Time Spent With Patient Time: Total time managing care of this patient today ____ minutes.
--- NOTE | 2024-01-29 10:41 | P.DS_ITS ---
DS: Providers Provider Date of Service: 01/29/24 Date of admission: 01/19/24 16:55 Date of discharge: 01/29/24 Primary care physician: Daphne Rodriguez MD Consults: 01/28/24 09:05 Consult to Pulmonology Routine Consulting Provider: [facility] Reason for consultation: Hypoxemia, LEft sided encapsulated pleural effusion 01/28/24 09:41 Consult to Thoracic Surgery Routine Consulting Provider: Benjamin Hobbs Reason for consultation: Hypoxemia, LEft sided encapsulated pleural effusion DS: Diagnosis Discharge Diagnosis (1) Acidosis, lactic: Status: Acute (2) Acute hypokalemia: Status: Acute (3) Pleural effusion: Status: Acute (4) Hypomagnesemia: Status: Acute (5) Atrial fibrillation with rapid ventricular response: Status: Acute DS: Summary Hospital Course Hospital Course: The patient had long hospital stay. For full details please return to full EMR. Admission note HPI 63F PMH [id number] lung cancer status post left upper lobe and right upper lobe wedge resection with metastases on palliative chemotherapy, history of breast cancer, depression, hepatitis-C, hypertension, COPD with chronic hypoxic respiratory failure on 3 L home O2, paroxysmal atrial fibrillation no longer on anticoagulation due to thrombocytopenia and anemia, opiate dependence presented with shortness of breath. Patient states she started feeling shortness of breath about 2-3 days prior to presentation with wheezing, chills, cough. No fever sick contacts. Denies chest pain. She had to bump up her home O2 to 4 L. in ED noted to be wheezy, in AFib with RVR. Hospital course The patient was admitted and treated for Acute on chronic hypoxic respiratory failure secondary to pneumonia and COPD with acute decompensation as the patient O2 reqirements went from 10L to baseline of 4L. She noted to have hemoptysis that improved after holding eliquis for few days. Eliquis was restarted with no reported hymoptysis anymore. Treated with IV steroids that was later changed to PO along with IV antibiotics of cefepime and Azithromycin. Bronchodilator nebulizers ATC and PRN with fair response over a long course of hospital stay. Images were concerning for Left sided pleural effusion that has been there for at least 3 months suggesting encapsulating and trapped lung. Evaluated by Managed Care Nurse dr Morales who suggested to hold on thoracentesis and any surgical intervention at this point as she has trapped lung with hx of cancer. Thoracic surgery suggests decortication but anesthasia thinks she needs higher level of care for that surgery, to follow with dr Tavarez as outpatient as the patient herself not too much interested in the surgery. For Hx of Stage IV lung cancer she will have Outpatient follow up with Oncology She also went into Paroxysmal atrial fibrillation with rapid ventricular response that required extra doses of Cardizem and Changed metoprolol to bid and Cardizem to 360 mg. continue Eliquis. To Increase Cardizem on discharge to 360 mg. Discharge plan Use Nebulizer every 4-6 hours for the next 3 days then as needed Continue tapering dose PRednisone Continue 5 more days of LEvofloxacin antibiotics Increase Cardizem to 360 CG mg daily Take Magnesium supplement daily Time Attestation Discharge Coordination Time (in mins): 45 Quality: Safe Use of Opioids Does Pt have an Active Cancer Diagnosis on the Problem List?: No Quality: Stroke Does the patient have a stroke diagnosis?: No Physical Exam Vital Signs: Vital Signs: Last Vital Signs Temp 97.0 F 01/29/24 08:00 Pulse 129 H 01/29/24 08:00 Resp 20 01/29/24 08:00 BP 148/86 H 01/29/24 08:27 Pulse Ox 97 01/29/24 08:00 O2 Del Method Nasal Cannula 01/29/24 08:00 O2 Flow Rate 5 01/29/24 08:00 FiO2 65 01/23/24 08:00 Oxygen Flow Rate 4 01/19/24 17:09 BMI result Body Mass Index 33.0 Const: Other: General - no acute distress, appears comfortable Cardiovascular - regular rate and rhythm, S1-S2 Lungs - improved bilateral air entry mainly left LL with no expiratory wheezes , On O2 supplement. Abdomen - soft, nontender, no rebound or guarding Extremities - no edema bilaterally Neuro - awake and alert, no focal deficits DS: Data Data Completed and Pending Completed studies during hospitalization [Text1]: Procedures Drainage of Left Pleural Cavity, Percutaneous Approach (07/09/23) Inspection of Lower Intestinal Tract, Via Natural or Artificial Opening Endoscopic (12/01/23) Transfusion of Nonautologous Platelets into Peripheral Vein, Percutaneous Approach (01/24/22) Transfusion of Nonautologous Red Blood Cells into Peripheral Vein, Percutaneous Approach (02/18/22) Labs on day of discharge: Laboratory Results - last 24 hr 01/29/24 06:16 Hold Purple Top SEE NOTE Sodium 139 Potassium 4.1 Chloride 91 L Carbon Dioxide 39 H Anion Gap 13 BUN 44 H Creatinine 1.22 Estim Creat Clear Calc 55.9 Estimated GFR 45 Random Glucose 178 H Calcium 9.6 Magnesium 2.1 Digoxin 0.7 L Imaging Chest x-ray: Radiologist's impression: ITS Impressions Chest X-Ray 01/19/24 14:45 IMPRESSION: Findings as above. Electronically signed by: Rigo Johnson MD 01/19/2024 04:58 PM EDT RP Chest X-Ray 01/22/24 08:00 IMPRESSION: 1. Newly developed reticular opacification consolidation left upper lobe, presumably pneumonia. 2. Bilateral subpulmonic pleural effusions right more than left. Electronically signed by: Agus Thorne MD 01/22/2024 08:52 AM EDT RP Chest CT 01/23/24 09:30 IMPRESSION: Left upper lobe interstitial prominence and groundglass density with associated traction bronchiectasis, honeycombing, and/or emphysema, significantly worse compared with most recent prior study dated November 03, 2023. Multiple additional findings as detailed above, not significantly changed compared with November 03, 2023. Electronically signed by: Rigo Johnson MD 01/23/2024 03:42 PM EDT RP Chest X-Ray 01/27/24 16:30 IMPRESSION: 1. Moderate left pleural effusion with underlying atelectasis. 2. Previously seen airspace opacity in left upper lobe has significantly improved. Electronically signed by: Kit Schmidt MD 01/27/2024 07:47 PM EDT RP Discharge Plan Discharge Anticipated Discharge Date/Time: 01/26/24 11:06 Patient Disposition: Home Health Service Discharge Diagnosis: Electrolytes imbalance Atrial fibrillation COPD w exacerbation Referrals: Daphne Rodriguez MD [Primary Care Provider] - 1 Week Discharge Medications: New Mucus DM 30-600 mg Tablet Extended Release 12 Hr 1 tab PO BID Qty: 20 0RF magnesium oxide 400 mg magnesium tablet 400 mg PO DAILY Qty: 90 0RF prednisone 10 mg tablet See Taper PO DIRECTED Qty: 30 0RF Taper: Prednisone 40 mg daily for 3 Days and 0 Hour 30 mg daily for 3 Days and 0 Hour 20 mg daily for 3 Days and 0 Hour 10 mg daily for 3 Days and 0 Hour Rx Instructions: see taper instructions levofloxacin 750 mg tablet 750 mg PO DAILY Qty: 5 0RF diltiazem HCl [Cardizem CD] 360 mg capsule,extended release 24hr 360 mg PO QAM Qty: 90 0RF Continued theophylline 400 mg tablet extended release 24 hr 400 mg PO DAILY Qty: 30 0RF levothyroxine [Synthroid] 25 mcg tablet 25 mcg PO DAILY@0600 0RF potassium chloride [K-Tab] 20 mEq Tablet Extended Release 20 meq PO DAILY Qty: 30 0RF folic acid 1 mg tablet 1 mg PO DAILY Qty: 90 3RF paroxetine HCl 20 mg tablet 40 mg PO BID omeprazole 20 mg capsule,delayed release(DR/EC) 20 mg PO DAILY@0630 Savella 50 mg tablet 50 mg PO BID simvastatin 20 mg Tablet 20 mg PO BEDTIME docusate sodium 100 mg capsule 100 mg PO BEDTIME PRN (Reason: stool softener) buprenorphine-naloxone [Suboxone] 2-0.5 mg film 0.5 - 1 film sublingual DAILY Anoro Ellipta 62.5-25 mcg/actuation blister with device 1 inh INHALATION DAILY ipratropium-albuterol 0.5 mg-3 mg(2.5 mg base)/3 mL solution for nebulization 3 ml inhalation Q6H PRN (Reason: wheezing) acetaminophen 500 mg Tablet 500 mg PO DAILY PRN (Reason: Pain) metoprolol succinate 100 mg Tablet Extended Release 24 Hr 100 mg PO DAILY Qty: 30 0RF Protocol: Hold for SBP/HR < HOLD for SBP < : 90 HOLD for HR < : 60 Eliquis 5 mg Tablet 5 mg PO BID Qty: 60 0RF furosemide 40 mg tablet 40 mg PO DAILY nicotine 21 mg/24 hr patch 24 hour 21 mg transdermal DAILY PRN (Reason: Smoking Cessation) albuterol sulfate [Ventolin HFA] 90 mcg/actuation HFA aerosol inhaler 2 puff inhalation Q6H PRN (Reason: sob) Discontinued diltiazem HCl 300 mg Capsule,Extended Release 24hr 300 mg PO DAILY Qty: 30 0RF Protocol: Hold for SBP/HR < HOLD for SBP < : 90 HOLD for HR < : 60 Discharge Orders: Discharge Order (Routine); Ordered 01/29/24 Ordered By: Sinan Leon Diet: Advance to usual diet Activity on Discharge: As tolerated Stand Alone Forms: Patient Portal Discharge page Print Language: Citizen Of [place] Care Plan Goals: Use Nebulizer every 4-6 hours for the next 3 days then as needed Continue tapering dose PRednisone Continue 5 more days of LEvofloxacin antibiotics Take Magnesium supplement daily Health Concerns: Pneumonia, COPD Plan of Treatment: Antibiotics, Steroids, Nebulizers Assessment: as above
--- NOTE | 2024-01-29 11:21 | MHC.CM.PN ---
Pt has been medically cleared for DC, she will go home via family transport, and have home care services from [facility].
== END 2024-01-29 12:00 | disposition home health service (06) | DRG 139 ==
LOC: HO.ED 16:25 → HO.EDOVER 17:11 → HO.IMC 19:14
PROVIDERS: Family Medicine; Student in an Organized Health Care Education/Training Program; Admitting Provider Internal Medicine; Emergency Provider Emergency Medicine; PCP Pediatrics; Visit Provider Student in an Organized Health Care Education/Training Program
DX: J18.9 Pneumonia, unspecified organism (principal); J96.21 Acute and chronic respiratory failure with hypoxia; J86.9 Pyothorax without fistula; C79.51 Secondary malignant neoplasm of bone; E87.21 Acute metabolic acidosis; C34.91 Malignant neoplasm of unspecified part of right bronchus or lung; C34.92 Malignant neoplasm of unspecified part of left bronchus or lung; D63.0 Anemia in neoplastic disease; J90 Pleural effusion, not elsewhere classified; J43.9 Emphysema, unspecified; R04.2 Hemoptysis; E83.42 Hypomagnesemia; I48.0 Paroxysmal atrial fibrillation; Z99.81 Dependence on supplemental oxygen; J98.19 Other pulmonary collapse; F11.20 Opioid dependence, uncomplicated; E03.9 Hypothyroidism, unspecified; Z20.822 Contact with and (suspected) exposure to COVID-19; Z87.891 Personal history of nicotine dependence; Z85.3 Personal history of malignant neoplasm of breast; Z86.19 Personal history of other infectious and parasitic diseases; Z90.2 Acquired absence of lung [part of]; Z79.01 Long term (current) use of anticoagulants; Z79.890 Hormone replacement therapy; Z79.899 Other long term (current) drug therapy
CPT/HCPCS: 0241U; 36415; 71045; 71250; 80048; 80076; 80162; 80202; 82565; 82803; 83605; 83690; 83735; 83880; 84145; 84484; 85025; 85027; 86140; 87040; 87640; 87641; 93005; 97162; 99285; J0456; J0692; J1160; J1650; J1940; J2060; J2270; J2919; J3370; J3371; J3475; J3480; J7120; P9047

== ENCOUNTER → 2024-01-19 14:27 | Outpatient (BNV) | payer MEDICAID, SELFPAY | PROVIDERS: Emergency Provider Emergency Medicine; PCP Pediatrics; Visit Provider Internal Medicine Cardiovascular Disease | DX: R94.31 Abnormal electrocardiogram [ECG] [EKG] (principal) | CPT/HCPCS: 93010 ==

== ENCOUNTER → 2024-01-19 16:55 | Outpatient (BNV) | payer MEDICAID, SELFPAY | PROVIDERS: Admitting Provider Internal Medicine; Emergency Provider Emergency Medicine; PCP Pediatrics; Visit Provider Internal Medicine Pulmonary Disease | DX: J44.9 Chronic obstructive pulmonary disease, unspecified (principal); J96.21 Acute and chronic respiratory failure with hypoxia; C34.91 Malignant neoplasm of unspecified part of right bronchus or lung; J90 Pleural effusion, not elsewhere classified | CPT/HCPCS: 99232 ==

== ENCOUNTER → 2024-01-19 16:55 | Outpatient (BNV) | payer MEDICAID, SELFPAY | PROVIDERS: Admitting Provider Internal Medicine; Emergency Provider Emergency Medicine; PCP Pediatrics; Visit Provider Internal Medicine | DX: E87.20 Acidosis, unspecified (principal); E87.6 Hypokalemia; J90 Pleural effusion, not elsewhere classified; E83.42 Hypomagnesemia; I48.91 Unspecified atrial fibrillation; J96.21 Acute and chronic respiratory failure with hypoxia | CPT/HCPCS: 99223; 99232; 99233; 99239; 99499; G0180 ==

== ENCOUNTER → 2024-01-19 16:55 | Outpatient (BNV) | payer MEDICAID, SELFPAY | PROVIDERS: Admitting Provider Internal Medicine; Emergency Provider Emergency Medicine; PCP Pediatrics; Visit Provider Surgery | DX: J86.9 Pyothorax without fistula (principal); J90 Pleural effusion, not elsewhere classified; Z99.81 Dependence on supplemental oxygen; C79.51 Secondary malignant neoplasm of bone; J44.9 Chronic obstructive pulmonary disease, unspecified; R09.02 Hypoxemia; C34.91 Malignant neoplasm of unspecified part of right bronchus or lung; C34.92 Malignant neoplasm of unspecified part of left bronchus or lung | CPT/HCPCS: 99223 ==

== ENCOUNTER 2024-01-31 12:51 | Inpatient (IN) | payer MEDICAID, SELFPAY ==
[2024-01-31] VITALS (8 sets, daily range): BP systolic 124–167; BP diastolic 87–116; PULSE 75–154; RESP 15–22; TEMP 36.8–36.9; O2SAT 95–98; BMI 32.4
--- NOTE | ~2024-01-31 | XR_ITS ---
EXAMINATION: XR CHEST CLINICAL INFORMATION: Tachycardia. Tachypnea. Shortness of breath. Rule out pneumonia. COMPARISON: Multiple chest x-rays dating between January 27, 2024 and January 19, 2024. TECHNIQUE: Frontal view of the chest was obtained. FINDINGS: The study is limited by portable technique, suboptimal inspiration, and the left lower lung field being cut off the image. Improvement in previously seen focal left upper lobe interstitial infiltrate compared with most recent prior study from January 27, 2024. Otherwise, there has been no gross significant radiographic change compared with studies dating back at least to January 19, 2024. Examination again demonstrates bibasilar hazy and patchy densities, small on the right and small to moderate on the left, suggesting pleural fluid, pleural thickening, atelectasis, fibrotic streaks, and/or infiltrates. No pneumothorax is seen. The correct silhouette is suboptimally evaluated. No adenopathy is seen. Mild degenerative changes of the spine and shoulders. Lower cervical/upper thoracic anterior fixation plate and screws. No gross evidence of hardware fracture. XR/XR chest 1V IMPRESSION: Findings as above. Electronically signed by: Rigo Johnson MD 01/31/2024 04:27 PM EDT
--- NOTE | 2024-01-31 13:10 | ECG_ITS ---
Test Reason : CROPANA Blood Pressure : / mmHG Vent. Rate : 120 BPM Atrial Rate : 000 BPM P-R Int : 000 ms QRS Dur : 070 ms QT Int : 298 ms P-R-T Axes : 000 028 029 degrees QTc Int : 421 ms Atrial fibrillation with rapid ventricular response Nonspecific ST abnormality Abnormal ECG When compared with ECG of 19-JAN-2024 14:33, Nonspecific T wave abnormality no longer evident in Inferior leads Nonspecific T wave abnormality no longer evident in Lateral leads Referred By: Keanu Hoang Electronically Signed By:Rc Roberts
--- NOTE | 2024-01-31 13:18 | ED.ARRPALP ---
HPI - Arrhythmia/Palpitations General Chief Complaint: General Medical Stated Complaint: DIZZY,HIGH BP 156/90,WEAK,D/C T-1 PER EMS Time Seen by Provider: 01/31/24 13:07 Source: patient and EMS Mode of arrival: EMS Limitations: no limitations History of Present Illness ED Provider: Dr. Keanu Hoang HPI narrative: 63-year-old female with a history of stage IV [id number] lung cancer status post left upper lobe and right upper lobe wedge resection with metastases on palliative chemotherapy, history of breast cancer, depression, hepatitis-C, hypertension, COPD with chronic hypoxic respiratory failure on 3 L home O2, paroxysmal atrial fibrillation, opiate dependence presented with shortness of breath who presents emergency department for evaluation of elevated heart rate and elevated blood pressure noted by the visiting nurse. Patient has no complaints. She denies palpitations, she states that she feels like her short of breath and dyspnea on exertion are at her baseline. She denied fever, cough, chest pain, nausea, vomiting or diarrhea. The patient was hospitalized from 01/19/2024 until 01/29/2024 (3 days prior). In reviewing the discharge summary, the patient was admitted for acute on chronic hypoxic respiratory failure secondary to pneumonia and COPD decompensation. She required higher doses of oxygen, she had an episode of hematemesis as well as atrial fibrillation with RVR. She was initially treated with IV steroids and IV antibiotics and eventually change to oral antibiotics and oral steroids. Her atrial fibrillation with a RVR was treated with diltiazem and her metoprolol was discontinued and she was started on Cardizem 360 mg daily, her Eliquis was continued. Patient was noted to have a chronic left pleural effusion for at least 3 months suggesting an encapsulated/trapped lung. Patient had pulmonology consult and thoracic surgery consult. Given her severe COPD and stage IV lung cancer, the plan was to follow the effusion as an outpatient. Related Data Home Medications ?Medication ?Instructions ?Recorded ?Confirmed milnacipran 50 mg tablet (Savella) 50 mg PO BID 01/18/22 01/19/24 omeprazole 20 mg capsule,delayed 20 mg PO DAILY@0630 01/18/22 01/19/24 release paroxetine HCl 20 mg tablet 40 mg PO BID 01/18/22 01/19/24 simvastatin 20 mg tablet 20 mg PO BEDTIME 02/17/22 01/19/24 albuterol sulfate 90 mcg/actuation 2 puff inhalation Q6H PRN sob 06/22/23 01/19/24 aerosol inhaler (Ventolin HFA) buprenorphine 2 mg-naloxone 0.5 mg 0.5 - 1 film sublingual DAILY 07/09/23 01/19/24 sublingual film (Suboxone) docusate sodium 100 mg capsule 100 mg PO BEDTIME PRN stool 07/09/23 01/19/24 softener umeclidinium 62.5 mcg-vilanterol 1 inh inhalation DAILY 07/09/23 01/19/24 25 mcg/actuation powdr for inhalation (Anoro Ellipta) ipratropium 0.5 mg-albuterol 3 mg 3 ml inhalation Q6H PRN wheezing 10/18/23 01/19/24 (2.5 mg base)/3 mL nebulization soln acetaminophen 500 mg tablet 500 mg PO DAILY PRN Pain 11/03/23 01/19/24 furosemide 40 mg tablet 40 mg PO DAILY 01/19/24 01/19/24 nicotine 21 mg/24 hr daily 21 mg transdermal DAILY PRN 01/19/24 01/19/24 transdermal patch Smoking Cessation Previous Rx's ?Medication ?Instructions ?Recorded folic acid 1 mg tablet 1 mg PO DAILY #90 tabs 10/04/23 apixaban 5 mg tablet (Eliquis) 5 mg PO BID #60 tabs 12/09/23 metoprolol succinate 100 mg 100 mg PO DAILY #30 tabs 12/09/23 tablet,extended release 24 hr theophylline 400 mg 400 mg PO DAILY #30 tabs 01/03/24 tablet,extended release 24 hr levothyroxine 25 mcg tablet 25 mcg PO DAILY@0600 01/10/24 (Synthroid) potassium chloride 20 mEq 20 meq PO DAILY #30 tabs 01/14/24 tablet,extended release (K-Tab) dextromethorphan-guaifenesin 30 1 tab PO BID #20 tabs 01/26/24 mg-600 mg tablet extended fctepcj86 hr (Mucus DM) levofloxacin 750 mg tablet 750 mg PO DAILY #5 tabs 01/26/24 magnesium oxide 400 mg PO DAILY #90 tabs 01/26/24 prednisone 10 mg tablet See Taper PO DIRECTED #30 tabs 01/26/24 diltiazem HCl 360 mg 360 mg PO QAM #90 caps 01/29/24 capsule,extended release 24 hr (Cardizem CD) Allergies Allergy/AdvReac Type Severity Reaction Status Date / Time lisinopril [LISINOPRIL] Allergy Severe SWELLING- Verified 01/31/24 13:09 ANGIOEDEMA codeine [CODEINE] Allergy Intermediate VOMITING/HIVES, Verified 01/19/24 14:21 vomiting, hives Review of Systems Review of Systems: Yes all other systems are reviewed and are negative [facility] Past Medical History Medical History Lung cancer Pancytopenia New onset a-fib Cancer of upper lobe of left lung (~2020) Bilateral lung cancer Obesity History of hepatitis C Smoker Tubular adenoma of colon Pulmonary nodules History of breast cancer (~2006) Internal and external bleeding hemorrhoids Cancer of upper lobe of right lung (~2019) GERD (gastroesophageal reflux disease) Depression COPD (chronic obstructive pulmonary disease) HTN (hypertension) Surgical History History of lung surgery (~2020) History of anterior colporrhaphy (~2016) History of tubal ligation History of lumpectomy of right breast (~2006) History of colonoscopy (~2014) History of hemorrhoidectomy (~2019) History of back surgery (~2011) History of lobectomy of lung (~2019) Family History Family History Mother History of lung cancer Brother History of lung cancer Maternal Grandmother Breast cancer in female Maternal Aunt Breast cancer in female Daughter Thyroid cancer Social History Social History Household Members: Significant Other Household Members Other:: 2 Housing: Apartment Are you a primary resident care supervisor to a significant other at home: No Do you presently have visiting nurse or other home services: Yes Unable to assess alcohol history related to: Unable to respond Alcohol intake: never Comment: 1 assist w/02 to bathroom Patient Tobacco Use Status: Former Tobacco user Tobacco use type: Cigarette Cigarette Packs Per Day: 1 Cigarettes Per Day: 10 Years Smoked: 50 Smoked in Last 30 Days: No Second Hand Smoke Exposure: Yes Use of substances other than those prescribed or required for medical reasons: No Substance Use Type: Marijuana Advance Directives: Yes Advance Directives on File: Yes Advance Directives Date on File: 02/02/22 service: No Current occupational status: disabled Current occupational exposures/hazards: No Physical Exam Vital Signs: Vital Signs: Last Vital Signs Temp 98.4 F 01/31/24 13:07 Pulse 154 H 01/31/24 17:31 Resp 22 H 01/31/24 17:31 BP 139/116 H 01/31/24 15:16 Pulse Ox 95 01/31/24 17:31 O2 Del Method Nasal Cannula 01/31/24 17:31 O2 Flow Rate 2 01/31/24 17:31 Oxygen Flow Rate 2 01/31/24 13:07 BMI result Body Mass Index 32.4 Vital signs revealed an elevated heart rate of 145, elevated respiratory rate of 22 and an elevated blood pressure of 167/99 Exam: General: Awake, alert in no distress Head: Normocephalic, atraumatic EENT: PERRL, Lids normal, sclera normal, conjunctiva normal, nose normal , ears normal, throat without erythema or exudates Neck: Supple, no adenopathy Lung: breath sounds symmetric, no wheezing, rales or rhonchi Chest: symmetric movement, nontender Heart: Rapid, irregularly irregular rhythm, normal S1, S2 no murmurs or rubs Abdomen: soft, non-tender, nondistended, normal bowel sounds Back: no vertebral tenderness, no CVAT Extremities: no deformities, moves all extremities symmetrically Neuro: Awake, alert, oriented, normal speech, cranial nerves intact, moves all extremities symmetrically Psych: Pleasant, cooperative Medications Administered Discontinued Medications Generic Name Dose Route Start Last Admin Trade Name Layton PRN Reason Stop Dose Admin Diltiazem HCl 10 mg 01/31/24 13:19 01/31/24 13:28 Diltiazem Hcl 50 Mg/10 Ml Vial IVPUSH 01/31/24 13:20 10 mg STAT STA Administration Diltiazem HCl 20 mg 01/31/24 15:10 01/31/24 15:19 Diltiazem Hcl 50 Mg/10 Ml Vial IVPUSH 01/31/24 15:11 20 mg STAT STA Administration Diltiazem HCl 20 mg 01/31/24 17:23 01/31/24 17:30 Diltiazem Hcl 50 Mg/10 Ml Vial IVPUSH 01/31/24 17:24 20 mg STAT STA Administration Medical Decision Making Medical Decision Making [facility] Narrative: 63-year-old female with a history of stage IV [id number] lung cancer status post left upper lobe and right upper lobe wedge resection with metastases on palliative chemotherapy, history of breast cancer, depression, hepatitis-C, hypertension, COPD with chronic hypoxic respiratory failure on 3 L home O2, paroxysmal atrial fibrillation, opiate dependence presented with shortness of breath who presents emergency department for evaluation of elevated heart rate and elevated blood pressure noted by the visiting nurse. Patient has no complaints. She denies palpitations, she states that she feels like her short of breath and dyspnea on exertion are at her baseline. She denied fever, cough, chest pain, nausea, vomiting or diarrhea. Patient was discharged 3 days prior after a prolonged hospitalization from 01/19/2024 until 01/29/2024 for acute on chronic respiratory failure caused by pneumonia/COPD and atrial fibrillation with RVR. Patient's metoprolol was discontinued and she was started on diltiazem CD 360 mg daily. Vital signs revealed an elevated heart rate, respiratory rate and blood pressure. Physical examination revealed a rapid irregularly irregular heart sounds otherwise was unremarkable. Differential diagnosis: ?Includes but is not limited to myocardial infarction, myocardial ischemia, atrial fibrillation/flutter with RVR, pneumonia, CHF electrolyte abnormalities, anemia Following evaluation was ordered: CBC, CMP, BNP, lipase, magnesium, VBG, PT/INR, troponin, EKG, chest x-ray one view Patient was initially treated with the following: Diltiazem 10 mg IV, IV insert, cardiac monitoring, O2 saturation monitoring Course: 17:34 My interpretation patient's laboratory evaluation as follows: Elevated white blood count 55047 with a left shift 85 neutrophils and 5.1 lymphocytes. Low platelet count of [id number] is new compared to his previous visit. PT and INR were elevated 13.7 and 1.2. VBG elevated pH of 7.48 and elevated CO2 of 59 again unchanged from previous consistent with chronic respiratory compensation. CMP revealed an elevated chloride of 94, elevated bicarb of 36, elevated BUN of 31. These are chronic. Glucose was elevated 168. First troponin was elevated at 48.93 hour troponin was not significantly changed to 59.4. BNP is elevated 215. Lipase was elevated 105. Patient's 12 EKG was consistent with atrial fibrillation with RVR. Chest x-ray revealed a chronic left pleural effusion but no acute findings The patient required 3 doses of diltiazem IV (10 mg, 20 mg and 20 mL) with initial control her rate but then her rate with go up again to the 120-150 beats per minute range. Therefore the patient was started on a diltiazem drip. Patient will need admission for rate control and I did discuss admission over tiger text with the covering hospitalist Dr. Waggoner. Admission/Observation Consideration of admission/observation: Escalation of care including admission/observation considered (Yes) Consult Healthcare Provider Management of the patient was discussed with: Hospitalist Lab Data MDM Lab Attestation statement: I reviewed the patient's lab results. 01/31/24 13:26 01/31/24 13:26 Labs: Lab Results 01/31/24 01/31/24 01/31/24 Range/Units 13:26 13:29 16:37 WBC 14.1 H (4.8-10.8) X10*3/uL RBC 4.28 (4.20-5.50) X10*6/uL Hgb 12.9 (12.0-16.0) g/dl Hct 40.3 (37.0-47.0) % MCV 94.2 (80.0-98.0) fL MCH 30.1 (27.0-33.0) pg MCHC 32.0 (31.0-35.0) g/dl RDW 15.2 (11.0-16.0) % Plt Count 141 L D (160-400) X10*3/uL MPV 10.8 (9.4-12.3) fL Immature Gran % (Auto) 1.8 H (0.0-0.4) % Neut % (Auto) 85.6 H (45-73) % Lymph % (Auto) 5.1 L (20-40) % Zavala % (Auto) 6.3 (2-11) % Eos % (Auto) 1.0 (0-4) % Baso % (Auto) 0.2 (0-2) % Lymph # (Auto) 0.7 L (1.2-4.9) X10*3/uL Zavala # (Auto) 0.9 (0.1-1.2) X10*3/uL Eos # (Auto) 0.1 (0.0-0.4) X10*3/uL Baso # (Auto) 0.0 (0.0-0.2) X10*3/uL Abs Immat Gran (auto) 0.26 H (0.00-0.03) X10*3/uL Absolute Neuts (auto) 12.0 H (2.0-8.3) x10*3/uL Absolute Nucleated RBC 0.000 (0.0-0.012) X10*3/uL Nucleated RBC % (auto) 0.0 (0.0-0.2) /100WBC PT 13.7 H (10.9-12.4) SEC INR 1.2 H (0.9-1.1) VBG pH 7.48 H (7.32-7.43) VBG pCO2 59 mmHg VBG pO2 36 mmHg VBG HCO3 44 H (22-26) mmol/L VBG O2 Saturation 51.0 % VBG Base Excess 17.8 mmol/L Sodium 141 (135-145) mmol/L Potassium 4.0 (3.3-5.1) mmol/L Chloride 94 L (96-108) mmol/L Carbon Dioxide 36 H (22-29) mmol/L Anion Gap 15 (12-20) BUN 31 H (9-16) mg/dL Creatinine 1.13 (0.5-1.4) mg/dL Estim Creat Clear Calc 59.8 Estimated GFR 49 Random Glucose 168 H (60-115) mg/dL Calcium 9.8 (8.4-10.2) mg/dL Magnesium 1.8 (1.6-2.6) mg/dL Total Bilirubin 0.4 (0.0-1.0) mg/dL AST 34 H (5-31) U/L ALT 21 (0-31) U/L Alkaline Phosphatase 51 (39-117) U/L Troponin I High Sens 48.9 H D 59.4 H* (<3.5-17.0) ng/L B-Natriuretic Peptide 215 H (<100) pg/mL Total Protein 6.5 (6.5-8.0) g/dL Albumin 3.8 (3.5-5.0) g/dL Lipase 105 H (8-78) U/L Independent Interpretation I performed an independent interpretation of an: EKG and Plain X-Ray Interpretation: My interpretation patient's one-view chest x-ray is as follows: Left pleural effusion which is chronic, no acute infiltrate My interpretation patient's 12 EKG done at 13:21 hours is as follows: Atrial fibrillation with a rapid ventricular response of 120 beats per minute, normal QRS duration QTC interval, no ST segment elevation, no ST segment depression no significant T-wave abnormalities Radiology Impression Discussion of test interpretation with radiology: I have reviewed the radiologist's reading. Radiologist Impression: EXAMINATION: XR CHEST FINDINGS: The study is limited by portable technique, suboptimal inspiration, and the left lower lung field being cut off the image. Improvement in previously seen focal left upper lobe interstitial infiltrate compared with most recent prior study from January 27, 2024. Otherwise, there has been no gross significant radiographic change compared with studies dating back at least to January 19, 2024. Examination again demonstrates bibasilar hazy and patchy densities, small on the right and small to moderate on the left, suggesting pleural fluid, pleural thickening, atelectasis, fibrotic streaks, and/or infiltrates. No pneumothorax is seen. The correct silhouette is suboptimally evaluated. No adenopathy is seen. Mild degenerative changes of the spine and shoulders. Lower cervical/upper thoracic anterior fixation plate and screws. No gross evidence of hardware fracture. IMPRESSION: Findings as above. Electronically signed by: Rigo Johnson MD 01/31/2024 04:27 PM EDT Dictated By: Rigo Johnson External Record Review External record reviewed: Inpatient record Chronic Conditions Patient?s care impacted by: Cancer and Other (COPD) Critical Care Time Critical Care Time Critical Care Time: Yes Total Critical Care Time: 80 Attestation: Critical Care: The patient was critically ill with a high probability of imminent or life threatening deterioration. I spent greater than 30 minutes of discontinuous time evaluating the patient,delivering critical care at the bedside, discussing and evaluating pertinent data with consultants. Critical care time does not include time spent performing separately billable procedures or teaching. Total time spent performing critical care was 80 minutes. Discharge Plan Discharge Clinical Impression: Atrial fibrillation with rapid ventricular response Patient Disposition: Admitted As Inpatient Prescriptions: No Action theophylline 400 mg tablet extended release 24 hr 400 mg PO DAILY Qty: 30 0RF levothyroxine [Synthroid] 25 mcg tablet 25 mcg PO DAILY@0600 0RF potassium chloride [K-Tab] 20 mEq Tablet Extended Release 20 meq PO DAILY Qty: 30 0RF folic acid 1 mg tablet 1 mg PO DAILY Qty: 90 3RF paroxetine HCl 20 mg tablet 40 mg PO BID omeprazole 20 mg capsule,delayed release(DR/EC) 20 mg PO DAILY@0630 Savella 50 mg tablet 50 mg PO BID simvastatin 20 mg Tablet 20 mg PO BEDTIME docusate sodium 100 mg capsule 100 mg PO BEDTIME PRN (Reason: stool softener) buprenorphine-naloxone [Suboxone] 2-0.5 mg film 0.5 - 1 film sublingual DAILY Anoro Ellipta 62.5-25 mcg/actuation blister with device 1 inh INHALATION DAILY ipratropium-albuterol 0.5 mg-3 mg(2.5 mg base)/3 mL solution for nebulization 3 ml inhalation Q6H PRN (Reason: wheezing) acetaminophen 500 mg Tablet 500 mg PO DAILY PRN (Reason: Pain) metoprolol succinate 100 mg Tablet Extended Release 24 Hr 100 mg PO DAILY Qty: 30 0RF Protocol: Hold for SBP/HR < HOLD for SBP < : 90 HOLD for HR < : 60 Eliquis 5 mg Tablet 5 mg PO BID Qty: 60 0RF furosemide 40 mg tablet 40 mg PO DAILY nicotine 21 mg/24 hr patch 24 hour 21 mg transdermal DAILY PRN (Reason: Smoking Cessation) Mucus DM 30-600 mg Tablet Extended Release 12 Hr 1 tab PO BID Qty: 20 0RF magnesium oxide 400 mg magnesium tablet 400 mg PO DAILY Qty: 90 0RF prednisone 10 mg tablet See Taper PO DIRECTED Qty: 30 0RF Taper: Prednisone 40 mg daily for 3 Days and 0 Hour 30 mg daily for 3 Days and 0 Hour 20 mg daily for 3 Days and 0 Hour 10 mg daily for 3 Days and 0 Hour Rx Instructions: see taper instructions levofloxacin 750 mg tablet 750 mg PO DAILY Qty: 5 0RF diltiazem HCl [Cardizem CD] 360 mg capsule,extended release 24hr 360 mg PO QAM Qty: 90 0RF albuterol sulfate [Ventolin HFA] 90 mcg/actuation HFA aerosol inhaler 2 puff inhalation Q6H PRN (Reason: sob) Print Language: Cypriot
[2024-01-31] MEDS: dilTIAZem HCL 50 MG/10 ML VIAL 10 MG IVPUSH (13:28)
[2024-01-31 13:29] LABS: MANUAL DIFF FLAG NO
[2024-01-31 13:33] LABS: VBG Base Excess 17.8 mmol/L; VBG HCO3 44 mmol/L (22-26); VBG pCO2 59 mmHg; VBG pH 7.48 (7.32-7.43); VBG pO2 36 mmHg
[2024-01-31 13:33] LABS: Basophils Percent Auto 0.2 % (0-2); Eosinophils Absolute Auto 0.1 X10*3/uL (0.0-0.4); Hematocrit 40.3 % (37.0-47.0); Hemoglobin 12.9 g/dl (12.0-16.0); Imm Gran Abs Auto 0.26 X10*3/uL (0.00-0.03); Imm Gran Pct Auto 1.8 % (0.0-0.4); Lymphocytes Absolute Auto 0.7 X10*3/uL (1.2-4.9); Lymphocytes Percent Auto 5.1 % (20-40); Mean Corpuscular Hemoglobin 30.1 pg (27.0-33.0); Mean Corpuscular Volume 94.2 fL (80.0-98.0); Monocytes Absolute Auto 0.9 X10*3/uL (0.1-1.2); Monocytes Percent Auto 6.3 % (2-11); Neutrophils Percent Auto 85.6 % (45-73); Red Blood Count 4.28 X10*6/uL (4.20-5.50); Red Cell Distribution Width 15.2 % (11.0-16.0); White Blood Count 14.1 X10*3/uL (4.8-10.8)
[2024-01-31 13:34] LABS: Venous Blood Gas Refer to POC result
[2024-01-31 13:39] LABS: INTERNATIONAL NORM RATIO 1.2 (0.9-1.1); Prothrombin Time 13.7 SEC (10.9-12.4)
[2024-01-31 13:53] LABS: Mean Platelet Volume 10.8 fL (9.4-12.3); Platelet Count 141 X10*3/uL (160-400)
[2024-01-31 13:54] LABS: B Type Natriuretic Peptide 215 pg/mL (<100)
[2024-01-31 13:56] LABS: Troponin-I High Sensitivity 48.9 ng/L (<3.5-17.0)
[2024-01-31 14:01] LABS: Alanine Aminotransferase 21 U/L (0-31); Albumin Level 3.8 g/dL (3.5-5.0); Alkaline Phosphatase 51 U/L (39-117); Anion Gap 15 (12-20); Aspartate Amino Transferase 34 U/L (5-31); Bilirubin Total 0.4 mg/dL (0.0-1.0); Blood Urea Nitrogen 31 mg/dL (9-16); Calcium 9.8 mg/dL (8.4-10.2); Carbon Dioxide 36 mmol/L (22-29); Chloride 94 mmol/L (96-108); Creatinine Clr Calc Pharmacy 59.8; Estimated Glomerular Filt Rate 49; Glucose Random 168 mg/dL (60-115); Lipase 105 U/L (8-78); Magnesium 1.8 mg/dL (1.6-2.6); Sodium 141 mmol/L (135-145); Total Protein 6.5 g/dL (6.5-8.0)
[2024-01-31] MEDS: dilTIAZem HCL 50 MG/10 ML VIAL 20 MG IVPUSH ×2 (15:19→17:30)
[2024-01-31 17:22] LABS: Troponin-I High Sensitivity 59.4 ng/L (<3.5-17.0)
[2024-01-31] MEDS: dilTIAZem HCL 125 MG in 0.9 % Sodium Chloride 100 ML 10 MG IVCONT (17:35)
--- NOTE | 2024-01-31 18:00 | PC.NURSE ---
pt to ED via EMS from home. upon arrival pt was in afib on tele with a rate in 120 up to 150. notified. Pt had no complaints, and was recently DC'ed from [facility] after staying for a week with a COPD exacerbation. She is on 2L O2 at home at baseline. Her Spo2 is good in the high 90s on the 2L. # doses of IVP dilt were given and now the pt is on a dilt drip. Her HR has responded to IVP dilt for a short time but the rate has not been well controlled. 20g IV left AC. Alert, oriented and ambulatory.
--- NOTE | 2024-01-31 19:05 | PM.IMHP ---
History of Present Illness Date of Service: 01/31/24 Chief Complaint: Palpitations This is a 63-year-old female with pertinent history of sid-ylntb-hbbi lung cancer status post left upper lobe and right upper lobe wedge resection with metastases on palliative chemotherapy, history of breast cancer, depression, hepatitis-C, hypertension, COPD with chronic hypoxic respiratory failure on 3 L home O2, paroxysmal atrial fibrillation on anticoagulation, opiate dependence who presented to the emergency department for evaluation of palpitations. Patient states she started having palpitations on the day of presentation. Her visiting nurse made her come to the ER. Nurse noted that the patient's heart rate was elevated and she was in AFib with RVR nurse the patient to come to the ER. Of note, patient was recently admitted with acute on chronic hypoxic respiratory failure due to pneumonia and COPD exacerbation and discharged on 01/28. Patient states she has been compliant with her medications since being discharged. No fever, chills. States she has chronic dyspnea at baseline which is not worse than usual. No nausea, vomiting, abdominal pain, changes in urinary or bowel habits. In the emergency department, patient was found to be in AFib with RVR and initiated on IV diltiazem drip. Review of Systems Constitutional: Constitutional: Reports no additional constitutional complaints Cardiovascular: Cardiovascular: Reports rapid heart rate Respiratory: Respiratory: Reports no additional respiratory complaints Gastrointestinal: Gastrointestinal: Reports no additional gastrointestinal complaints Genitourinary: Genitourinary: Reports no additional female genitourinary complaints [facility] Medical History Lung cancer Pancytopenia New onset a-fib Cancer of upper lobe of left lung (~2020) Bilateral lung cancer Obesity History of hepatitis C Smoker Tubular adenoma of colon Pulmonary nodules History of breast cancer (~2006) Internal and external bleeding hemorrhoids Cancer of upper lobe of right lung (~2019) GERD (gastroesophageal reflux disease) Depression COPD (chronic obstructive pulmonary disease) HTN (hypertension) Family History Mother History of lung cancer Brother History of lung cancer Maternal Grandmother Breast cancer in female Maternal Aunt Breast cancer in female Daughter Thyroid cancer Surgical History History of lung surgery (~2020) History of anterior colporrhaphy (~2016) History of tubal ligation History of lumpectomy of right breast (~2006) History of colonoscopy (~2014) History of hemorrhoidectomy (~2019) History of back surgery (~2011) History of lobectomy of lung (~2019) Social History Household Members: Significant Other Household Members Other:: 2 Housing: Apartment Are you a primary progressive care manager to a significant other at home: No Do you presently have visiting nurse or other home services: Yes Unable to assess alcohol history related to: Unable to respond Alcohol intake: never Comment: 1 assist to bathroom Patient Tobacco Use Status: Former Tobacco user Tobacco use type: Cigarette Cigarette Packs Per Day: 1 Cigarettes Per Day: 10 Years Smoked: 50 Smoked in Last 30 Days: No Second Hand Smoke Exposure: Yes Use of substances other than those prescribed or required for medical reasons: No Substance Use Type: Marijuana Advance Directives: Yes Advance Directives on File: Yes Advance Directives Date on File: 02/02/22 service: No Current occupational status: disabled Current occupational exposures/hazards: No Meds Allergies Allergy/AdvReac Type Severity Reaction Status Date / Time lisinopril [LISINOPRIL] Allergy Severe SWELLING- Verified 01/31/24 13:09 ANGIOEDEMA codeine [CODEINE] Allergy Intermediate VOMITING/HIVES, Verified 01/19/24 14:21 vomiting, hives Active Medications: Current Medications Diltiazem HCl 125 mg/ Sodium (Chloride) 125 mls @ 0 mls/hr IVCONT .Q0M [facility]; Protocol Last Titration: 01/31/24 17:40 Dose: 15 mg/hr, 15 mls/hr Home Medications ?Medication ?Instructions ?Recorded ?Confirmed ?Last Taken ?Type milnacipran 50 mg tablet (Savella) 50 mg PO BID 01/18/22 01/19/24 01/19/24 History omeprazole 20 mg capsule,delayed 20 mg PO DAILY@0630 01/18/22 01/19/24 01/19/24 History release paroxetine HCl 20 mg tablet 40 mg PO BID 01/18/22 01/19/24 01/19/24 History simvastatin 20 mg tablet 20 mg PO BEDTIME 02/17/22 01/19/24 01/18/24 History albuterol sulfate 90 mcg/actuation 2 puff inhalation Q6H PRN sob 06/22/23 01/19/24 07/09/23 History aerosol inhaler (Ventolin HFA) buprenorphine 2 mg-naloxone 0.5 mg 0.5 - 1 film sublingual DAILY 07/09/23 01/19/24 01/19/24 History sublingual film (Suboxone) docusate sodium 100 mg capsule 100 mg PO BEDTIME PRN stool 07/09/23 01/19/24 11/02/23 History softener umeclidinium 62.5 mcg-vilanterol 1 inh inhalation DAILY 07/09/23 01/19/24 01/19/24 History 25 mcg/actuation powdr for inhalation (Anoro Ellipta) ipratropium 0.5 mg-albuterol 3 mg 3 ml inhalation Q6H PRN wheezing 10/18/23 01/19/24 12/01/23 History (2.5 mg base)/3 mL nebulization soln acetaminophen 500 mg tablet 500 mg PO DAILY PRN Pain 11/03/23 01/19/24 Unknown History furosemide 40 mg tablet 40 mg PO DAILY 01/19/24 01/19/24 01/19/24 History nicotine 21 mg/24 hr daily 21 mg transdermal DAILY PRN 01/19/24 01/19/24 Unknown History transdermal patch Smoking Cessation Physical Exam Vital Signs and Narrative: Vital Signs: Last Vital Signs Temp 98.3 F 01/31/24 18:02 Pulse 83 01/31/24 18:02 Resp 15 01/31/24 18:02 BP 131/94 H 01/31/24 18:02 Pulse Ox 95 01/31/24 18:02 O2 Del Method Room Air 01/31/24 18:02 O2 Flow Rate 2 01/31/24 17:31 Oxygen Flow Rate 2 01/31/24 13:07 BMI result Body Mass Index 32.4 Middle-aged female lying in bed in no distress Neck supple, no JVD Irregularly irregular, S1-S2 heard Left-sided crackles, no wheezing appreciated Abdomen soft nontender, no guarding, no rigidity Patient is awake, alert and oriented to self, place, time and person ; no focal motor deficit Psych: Normal mood No pedal edema Results Labs 01/31/24 13:26 01/31/24 13:26 Labs: Laboratory Results - last 24 hr 01/31/24 01/31/24 01/31/24 13:26 13:29 16:37 MCV 94.2 MCH 30.1 MCHC 32.0 RDW 15.2 Plt Count 141 L D MPV 10.8 Immature Gran % (Auto) 1.8 H Neut % (Auto) 85.6 H Lymph % (Auto) 5.1 L [place] % (Auto) 6.3 Eos % (Auto) 1.0 Baso % (Auto) 0.2 Lymph # (Auto) 0.7 L [place] # (Auto) 0.9 Eos # (Auto) 0.1 Baso # (Auto) 0.0 Abs Immat Gran (auto) 0.26 H Absolute Neuts (auto) 12.0 H Absolute Nucleated RBC 0.000 Nucleated RBC % (auto) 0.0 PT 13.7 H INR 1.2 H VBG pH 7.48 H VBG pCO2 59 VBG pO2 36 VBG HCO3 44 H VBG O2 Saturation 51.0 VBG Base Excess 17.8 Anion Gap 15 Estim Creat Clear Calc 59.8 Estimated GFR 49 Random Glucose 168 H Calcium 9.8 Magnesium 1.8 Total Bilirubin 0.4 AST 34 H ALT 21 Alkaline Phosphatase 51 Troponin I High Sens 48.9 H D 59.4 H* B-Natriuretic Peptide 215 H Total Protein 6.5 Albumin 3.8 Lipase 105 H Imaging Radiologist's Impressions: Impressions Chest X-Ray 01/31/24 13:45 IMPRESSION: Findings as above. Electronically signed by: Rigo Johnson MD 01/31/2024 04:27 PM EDT Assessment and Plan (1) Atrial fibrillation with rapid ventricular response: Status: Acute Plan This is a 63-year-old female with pertinent history of kcc-[id number] lung cancer status post left upper lobe and right upper lobe wedge resection with metastases on palliative chemotherapy, history of breast cancer, depression, hepatitis-C, hypertension, COPD with chronic hypoxic respiratory failure on 3 L home O2, paroxysmal atrial fibrillation on anticoagulation, opiate dependence who presented to the emergency department for evaluation of palpitations and dyspnea. #. AFib with RVR: Initiated on IV diltiazem drip in the ER. Will admit patient with cardiac monitoring. On Eliquis. Metoprolol was changed to b.i.d. dosing and p.o. Cardizem was added during previous admission. Consulted Cardiology #. Reactive leukocytosis due to steroid use, no sepsis #. Chronic hypoxic respiratory failure due to COPD: On prednisone taper and p.o. Levaquin (initiated during previous hospitalization). No exacerbation during admission. Continue home inhalers #. Left-sided pleural effusion: Chronic. 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 Thoracic surgery was consulted who suggested decortication but anesthesia deemed that patient may need higher level of care for that surgery. To follow with thoracic surgery as an outpatient #. Stage IV lung cancer: Follow up with outpatient Oncology #. Hypothyroidism: On Synthroid #. Opioid use disorder: On Suboxone #. Mood disorder: Continue home mood stabilizers #. Mixed hyperlipidemia: On statin Med rec pending DVT prophylaxis: Sherita Full code Admit as inpatient and will require two night minimum hospital stay for IV diltiazem drip (as above), which is not possible in a lesser acute setting. Specialist consult pending Quality Stroke Does the patient have a stroke diagnosis?: No VTE Prior VTE?: No VTE Risk Level:: Medical - moderate - high VTE Device Contraindication: Treatment Not Indicated VTE Drug Contraindication: N/A - Med Ordered
[2024-01-31] MEDS: LORazepam 2 MG/ML VIAL 1 MG IVPUSH (20:34)
--- NOTE | 2024-01-31 21:27 | PHA.MEDREC ---
Pharmacy Consult ? Medication Reconciliation Pharmacy has completed the medication reconciliation. Spoke with patient about medications and she was a little agitated and stated her Dc packet was up to date. She did tell me her dosing of her Suboxone 2-0.5mg films taking 1 film daily which she stated she took today along with her last medications taken around 1200, when I asked about the prednisone she just stated its in the discharge packet and started getting upset. I tried calling her daughter but she did not know her moms medications.
--- NOTE | 2024-01-31 21:31 | PHA.MEDREC ---
Addendum entered by Dania Faust RPh 01/31/24 21:37: Reviewed by [facility] Original Note: Pharmacy Consult ? Medication Reconciliation Pharmacy has completed the medication reconciliation. Spoke with patient about medications and she was a little agitated and stated her Dc packet was up to date. She did tell me her dosing of her Suboxone 2-0.5mg films taking 1 film daily which she stated she took today along with her last medications taken around 1200, when I asked about the prednisone she just stated its in the discharge packet and started getting upset. I tried calling her daughter but she did not know her moms medications. Diltiazem got increased from 300mg to 360mg per last discharge.
--- NOTE | 2024-01-31 23:15 | PC.NURSE ---
this rn assumed care of pt, pt in hospital bed, respirations even and unlabored. pt denies pain at this time. pt in green gown for safety at this time.
[2024-02-01] VITALS (11 sets, daily range): BP systolic 114–162; BP diastolic 76–105; PULSE 80–122; RESP 18–22; TEMP 36.1–37.1; O2SAT 92–97; BMI 34.4
[2024-02-01] MEDS: dilTIAZem HCL 125 MG in 0.9 % Sodium Chloride 100 ML 15 MG IVCONT ×2 (01:03→09:04)
[2024-02-01] MEDS: Flu Vacc TS2024-25(6mos up)/PF 0.5 ML SYRINGE IM (01:19)
[2024-02-01 06:43] LABS: Anion Gap 15 (12-20); Blood Urea Nitrogen 29 mg/dL (9-16); Calcium 9.9 mg/dL (8.4-10.2); Carbon Dioxide 37 mmol/L (22-29); Chloride 96 mmol/L (96-108); Creatinine Clr Calc Pharmacy 62.3; Estimated Glomerular Filt Rate 49; Glucose Random 136 mg/dL (60-115); Potassium 3.7 mmol/L (3.3-5.1); Sodium 144 mmol/L (135-145)
[2024-02-01 06:44] LABS: Hematocrit 36.4 % (37.0-47.0); Hemoglobin 11.8 g/dl (12.0-16.0); Mean Corpuscular HGB Conc 32.4 g/dl (31.0-35.0); Mean Corpuscular Hemoglobin 30.1 pg (27.0-33.0); Mean Corpuscular Volume 92.9 fL (80.0-98.0); Mean Platelet Volume 10.7 fL (9.4-12.3); Platelet Count 113 X10*3/uL (160-400); Red Blood Count 3.92 X10*6/uL (4.20-5.50); Red Cell Distribution Width 15.6 % (11.0-16.0); White Blood Count 10.7 X10*3/uL (4.8-10.8)
[2024-02-01] MEDS: Albuterol/Iprat 2.5/0.5MG 3 ML AMPUL.NEB INHALE ×3 (07:39→15:04)
--- NOTE | 2024-02-01 08:20 | HO.PM.IMPN ---
Subjective Subjective Date of Service: 02/01/24 Review of Systems Follow up Afib rvr and COPD feeling better no pain Physical Exam Vital Signs: Vital Signs: Last Vital Signs Temp 97.0 F 02/01/24 07:29 Pulse 110 H 02/01/24 07:39 Resp 21 H 02/01/24 07:39 BP 162/85 H 02/01/24 07:29 Pulse Ox 95 02/01/24 07:29 O2 Del Method Nasal Cannula 02/01/24 07:29 O2 Flow Rate 2 02/01/24 07:29 Oxygen Flow Rate 2 01/31/24 13:07 BMI result Body Mass Index 34.4 Appearing in no acute distress lung sounds are clear to auscultation heart regular rate rhythm, clear S1, S2 positive bowel sounds, abdomen is soft, nontender neuro patient is alert x3, no focal deficits Objective Data Active Medications Acetaminophen (Acetaminophen 325 Mg Tablet) 650 mg PO Q6H PRN PRN Reason: Pain, Mild (Pain Scale 1-3), fever or headache Albuterol/Ipratropium (Albuterol/Iprat 2.5/0.5mg 3 Ml Ampul.Neb) 3 ml INHALE RQ4H WHILE AWAKE [facility] Last Admin: 02/01/24 07:39 Dose: 3 ml Documented By: GLENN Albuterol/Ipratropium (Albuterol/Iprat 2.5/0.5mg 3 Ml Ampul.Neb) 3 ml INHALE Q4H PRN PRN Reason: Wheezing Calcium Carbonate (Calcium Carbonate 750 Mg Tab.Chew) 750 mg PO Q4H PRN PRN Reason: Heartburn Diltiazem HCl 125 mg/ Sodium (Chloride) 125 mls @ 0 mls/hr IVCONT .Q0M [facility]; Protocol Last Admin: 02/01/24 01:03 Dose: 15 mg/hr, 15 mls/hr Documented By: BRYAN Magnesium Hydroxide (Milk Of Magnesia 30 Ml Oral.Susp) 30 ml PO DAILY PRN PRN Reason: Constipation Melatonin (Melatonin 3 Mg Tablet) 6 mg PO BEDTIME PRN PRN Reason: Insomnia Ondansetron HCl (Ondansetron Hcl 4 Mg/2 Ml Vial) 4 mg IVPUSH Q8H PRN PRN Reason: Nausea and Vomiting Sodium Chloride (0.9 % Sodium Chloride Flush 3 Ml Syringe) 3 ml IVFLUSH QSHIFT WALTER Last Admin: 02/01/24 01:04 Dose: Not Given Documented By: BRYAN Non-Admin Reason: IV Running Labs 02/01/24 05:30 02/01/24 05:30 Labs: Laboratory Results - last 24 hr 01/31/24 01/31/24 01/31/24 13:26 13:29 16:37 MCV 94.2 MCH 30.1 MCHC 32.0 RDW 15.2 Plt Count 141 L D MPV 10.8 Immature Gran % (Auto) 1.8 H Neut % (Auto) 85.6 H Lymph % (Auto) 5.1 L [place] % (Auto) 6.3 Eos % (Auto) 1.0 Baso % (Auto) 0.2 Lymph # (Auto) 0.7 L [place] # (Auto) 0.9 Eos # (Auto) 0.1 Baso # (Auto) 0.0 Abs Immat Gran (auto) 0.26 H Absolute Neuts (auto) 12.0 H Absolute Nucleated RBC 0.000 Nucleated RBC % (auto) 0.0 PT 13.7 H INR 1.2 H VBG pH 7.48 H VBG pCO2 59 VBG pO2 36 VBG HCO3 44 H VBG O2 Saturation 51.0 VBG Base Excess 17.8 Anion Gap 15 Estim Creat Clear Calc 59.8 Estimated GFR 49 Random Glucose 168 H Calcium 9.8 Magnesium 1.8 Total Bilirubin 0.4 AST 34 H ALT 21 Alkaline Phosphatase 51 Troponin I High Sens 48.9 H D 59.4 H* B-Natriuretic Peptide 215 H Total Protein 6.5 Albumin 3.8 Lipase 105 H 02/01/24 05:30 MCV 92.9 MCH 30.1 MCHC 32.4 RDW 15.6 Plt Count 113 L MPV 10.7 Immature Gran % (Auto) Neut % (Auto) Lymph % (Auto) [place] % (Auto) Eos % (Auto) Baso % (Auto) Lymph # (Auto) [place] # (Auto) Eos # (Auto) Baso # (Auto) Abs Immat Gran (auto) Absolute Neuts (auto) Absolute Nucleated RBC 0.000 Nucleated RBC % (auto) 0.0 PT INR VBG pH VBG pCO2 VBG pO2 VBG HCO3 VBG O2 Saturation VBG Base Excess Anion Gap 15 Estim Creat Clear Calc 62.3 Estimated GFR 49 Random Glucose 136 H Calcium 9.9 Magnesium Total Bilirubin AST ALT Alkaline Phosphatase Troponin I High Sens B-Natriuretic Peptide Total Protein Albumin Lipase Assessment and Plan (1) Atrial fibrillation with rapid ventricular response: Status: Acute Plan 63-year-old female with pertinent history of wqr-gdddy-fzsg lung cancer status post left upper lobe and right upper lobe wedge resection with metastases on palliative chemotherapy, history of breast cancer, depression, hepatitis-C, hypertension, COPD with chronic hypoxic respiratory failure on 3 L home O2, paroxysmal atrial fibrillation on anticoagulation, opiate dependence who presented to the emergency department for evaluation of palpitations and dyspnea. AFib with RVR cardiac monitoring. IV diltiazem drip On Eliquis and metoprolol Consulted Cardiology Reactive leukocytosis due to steroid use, no sepsis Chronic hypoxic respiratory failure due to COPD On prednisone taper and p.o. Levaquin (initiated during previous hospitalization). No exacerbation during admission. Continue home inhalers Left-sided pleural effusion Chronic. 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 Thoracic surgery was consulted who suggested decortication but anesthesia deemed that patient may need higher level of care for that surgery. To follow with thoracic surgery as an outpatient Stage IV lung cancer Follow up with outpatient Oncology Hypothyroidism On Synthroid chronic pain On Suboxone Mood disorder Continue home mood stabilizers Mixed hyperlipidemia On statin DVT prophylaxis: Sherita Attending Dr. Kwan Full code Admit as inpatient and will require two night minimum hospital stay for IV diltiazem drip (as above), which is not possible in a lesser acute setting. Specialist consult pending Quality Stroke Does the patient have a stroke diagnosis?: No VTE Prior VTE?: No VTE Risk Level:: Medical - moderate - high VTE Device Contraindication: Treatment Not Indicated VTE Drug Contraindication: N/A - Med Ordered
--- NOTE | 2024-02-01 08:23 | MHC.CM.PN ---
Patient lives with her Significant Other in [address] apartment/housing. Patient is active with [facility], [facility] for home O2, and Suboxone from [facility] [place]. Home/resume said services is the goal and CM has initiated and will follow for dc planning. PCP is Dr. Daphne Rodriguez and Patient's Daughter/HCP/Makayla will transport to home.
[2024-02-01] MEDS: Acetaminophen 325 MG TABLET 650 MG PO (09:01)
[2024-02-01] MEDS: 0.9 % Sodium Chloride Flush 3 ML SYRINGE IVFLUSH ×3 (09:01→19:46)
[2024-02-01] MEDS: levoFLOXacin 500 MG TABLET PO (13:12)
[2024-02-01] MEDS: dilTIAZem HCL CD 240 MG CAP.ER.DEG PO (14:04)
--- NOTE | 2024-02-01 14:40 | P.CONCA_ITS ---
History of Present Illness History of Present Illness Date of Service: 02/01/24 Chief complaint: Palpitations Narrative: [age] year female presenting with palpitation AFib with RVR. She has known history of atrial fibrillation and was previously started on diltiazem and metoprolol and has been on Eliquis for anticoagulation. She is saying that she has missed some doses of Eliquis. She has metastatic lung cancer. She is denying shortness of breath or chest pain. She said her visiting nurse noticed her heart to be racing and advised her to come to in. She is supposed to be on diltiazem 360 mg and metoprolol succinate 100 mg daily. [facility] Past Medical History Medical History Lung cancer Pancytopenia New onset a-fib Cancer of upper lobe of left lung (~2020) Bilateral lung cancer Obesity History of hepatitis C Smoker Tubular adenoma of colon Pulmonary nodules History of breast cancer (~2006) Internal and external bleeding hemorrhoids Cancer of upper lobe of right lung (~2019) GERD (gastroesophageal reflux disease) Depression COPD (chronic obstructive pulmonary disease) HTN (hypertension) Family History Family History Mother History of lung cancer Brother History of lung cancer Maternal Grandmother Breast cancer in female Maternal Aunt Breast cancer in female Daughter Thyroid cancer Surgical History Surgical History History of lung surgery (~2020) History of anterior colporrhaphy (~2016) History of tubal ligation History of lumpectomy of right breast (~2006) History of colonoscopy (~2014) History of hemorrhoidectomy (~2019) History of back surgery (~2011) History of lobectomy of lung (~2019) Social History Social History Household Members: Significant Other Household Members Other:: 2 Housing: Apartment Are you a primary adult caregiver to a significant other at home: No Do you presently have visiting nurse or other home services: No Unable to assess alcohol history related to: Unable to respond Alcohol intake: never Comment: 1 assist w/02 to bathroom Patient Tobacco Use Status: Former Tobacco user Tobacco use type: Cigarette Cigarette Packs Per Day: 1 Cigarettes Per Day: 10 Years Smoked: 50 Second Hand Smoke Exposure: Yes Substance Use Type: Marijuana Advance Directives Date on File: 02/02/22 service: No Current occupational status: disabled Current occupational exposures/hazards: No Meds Allergies Allergy/AdvReac Type Severity Reaction Status Date / Time lisinopril [LISINOPRIL] Allergy Severe SWELLING- Verified 01/31/24 13:09 ANGIOEDEMA codeine [CODEINE] Allergy Intermediate VOMITING/HIVES, Verified 01/19/24 14:21 vomiting, hives Active Medications: Current Medications Acetaminophen (Acetaminophen 325 Mg Tablet) 650 mg PO Q6H PRN PRN Reason: Pain, Mild (Pain Scale 1-3), fever or headache Last Admin: 02/01/24 09:01 Dose: 650 mg Albuterol Sulfate (Albuterol Sulfate 90 Mcg 8 Gm Inhaler) 2 puff INHALE Q6H PRN PRN Reason: sob Albuterol/Ipratropium (Albuterol/Iprat 2.5/0.5mg 3 Ml Ampul.Neb) 3 ml INHALE RQ4H 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 Last Admin: 02/01/24 10:58 Dose: 3 ml Albuterol/Ipratropium (Albuterol/Iprat 2.5/0.5mg 3 Ml Ampul.Neb) 3 ml INHALE Q4H PRN PRN Reason: Wheezing Apixaban (Apixaban 5 Mg Tablet) 5 mg PO BID [facility] Atorvastatin Calcium (Atorvastatin Calcium 10 Mg Tablet) 10 mg PO BEDTIME [facility] Buprenorphine/Naloxone (Buprenorphine/Naloxone 2/0.5mg Film) 1 film SUBLINGUAL DAILY [facility] Calcium Carbonate (Calcium Carbonate 750 Mg Tab.Chew) 750 mg PO Q4H PRN PRN Reason: Heartburn Diltiazem HCl (Diltiazem Hcl Cd 240 Mg Cap.Er.Deg) 240 mg PO DAILY [facility]; Protocol Last Admin: 02/01/24 14:04 Dose: 240 mg Docusate Sodium (Docusate Sodium 100 Mg Capsule) 100 mg PO BEDTIME PRN PRN Reason: stool softener Folic Acid (Folic Acid 1 Mg Tablet) 1 mg PO DAILY [facility] Furosemide (Furosemide 40 Mg Tablet) 40 mg PO DAILY [facility]; Protocol Guaifenesin/Dextromethorphan (Guaifenesin Dm 600/30 1 Tab Tab.Er.12h) 1 tab PO BID COUNT INCLUDES [facility] Levofloxacin (Levofloxacin 500 Mg Tablet) 500 mg PO Q24H COUNT INCLUDES THE [facility] Stop: 02/03/24 13:14 Last Admin: 02/01/24 13:12 Dose: 500 mg Levothyroxine Sodium (Levothyroxine Sodium 25 Mcg Tablet) 25 mcg PO DAILY@0600 COUNT INCLUDES [facility] Magnesium Hydroxide (Milk Of Magnesia 30 Ml Oral.Susp) 30 ml PO DAILY PRN PRN Reason: Constipation Magnesium Oxide (Magnesium Oxide 400 Mg Tablet) 400 mg PO DAILY COUNT INCLUDES [facility] Melatonin (Melatonin 3 Mg Tablet) 6 mg PO BEDTIME PRN PRN Reason: Insomnia Metoprolol Succinate (Metoprolol Succinate Er 100 Mg Tab.Er.24h) 100 mg PO DAILY COUNT INCLUDES [facility]; Protocol Nicotine (Nicotine 21 Mg Patch.Td24) 21 mg TRANSDERMA DAILY PRN PRN Reason: Smoking Cessation Omeprazole (Omeprazole 20 Mg Capsule.Dr) 20 mg PO DAILY@0630 COUNT INCLUDES [facility] Ondansetron HCl (Ondansetron Hcl 4 Mg/2 Ml Vial) 4 mg IVPUSH Q8H PRN PRN Reason: Nausea and Vomiting Paroxetine HCl (Paroxetine Hcl 40 Mg Tablet) 40 mg PO BID COUNT INCLUDES [facility] Potassium Chloride (Potassium Chloride Er 20 Meq Tab.Er.Prt) 20 meq PO DAILY COUNT INCLUDES [facility] Prednisone (Prednisone 10 Mg Tablet) 30 mg PO DAILY COUNT INCLUDES [facility] Stop: 02/05/24 08:59 Sodium Chloride (0.9 % Sodium Chloride Flush 3 Ml Syringe) 3 ml IVFLUSH QSHIFT COUNT INCLUDES [facility] Last Admin: 02/01/24 14:40 Dose: 3 ml Theophylline (Theophylline Anhydrous Er 400 Mg Tab.Er.24h) 400 mg PO DAILY COUNT INCLUDES [facility] Home Medications ?Medication ?Instructions ?Recorded ?Confirmed ?Last Taken ?Type milnacipran 50 mg tablet (Savella) 50 mg PO BID 01/18/22 01/31/24 01/19/24 History omeprazole 20 mg capsule,delayed 20 mg PO DAILY@0630 01/18/22 01/31/24 01/19/24 History release paroxetine HCl 20 mg tablet 40 mg PO BID 01/18/22 01/31/24 01/19/24 History simvastatin 20 mg tablet 20 mg PO BEDTIME 02/17/22 01/31/24 01/18/24 History albuterol sulfate 90 mcg/actuation 2 puff inhalation Q6H PRN sob 06/22/23 01/31/24 07/09/23 History aerosol inhaler (Ventolin HFA) buprenorphine 2 mg-naloxone 0.5 mg 1 film sublingual DAILY 07/09/23 01/31/24 01/19/24 History sublingual film (Suboxone) docusate sodium 100 mg capsule 100 mg PO BEDTIME PRN stool 07/09/23 01/31/24 11/02/23 History softener umeclidinium 62.5 mcg-vilanterol 1 inh inhalation DAILY 07/09/23 01/31/24 01/19/24 History 25 mcg/actuation powdr for inhalation (Anoro Ellipta) ipratropium 0.5 mg-albuterol 3 mg 3 ml inhalation Q6H PRN wheezing 10/18/23 01/31/24 12/01/23 History (2.5 mg base)/3 mL nebulization soln acetaminophen 500 mg tablet 500 mg PO DAILY PRN Pain 11/03/23 01/31/24 Unknown History furosemide 40 mg tablet 40 mg PO DAILY 01/19/24 01/31/24 01/19/24 History nicotine 21 mg/24 hr daily 21 mg transdermal DAILY PRN 01/19/24 01/31/24 Unknown History transdermal patch Smoking Cessation buprenorphine 2 mg-naloxone 0.5 mg 1 film sublingual DAILY PRN Pain 01/31/24 01/31/24 Unknown History sublingual film (Suboxone) diltiazem HCl 360 mg 360 mg PO DAILY 01/31/24 01/31/24 Unknown History capsule,extended release 24 hr (Cardizem CD) Physical Exam 2 Vital Signs: Vital Signs: Last Vital Signs Temp 98.3 F 02/01/24 11:43 Pulse 119 H 02/01/24 11:43 Resp 20 02/01/24 11:43 BP 114/76 02/01/24 14:04 Pulse Ox 97 02/01/24 11:43 O2 Del Method Nasal Cannula 02/01/24 11:43 O2 Flow Rate 1.5 02/01/24 11:43 Oxygen Flow Rate 2 01/31/24 13:07 BMI result Body Mass Index 34.4 GENERAL APPEARANCE: in no acute distress, pleasant. NECK: no carotid bruit, no jugular venous distention. SKIN: no suspicious lesions, warm and dry. HEART: no murmurs, irregular rate and rhythm. LUNGS: Diminished breath sounds bilaterally. ABDOMEN: soft, nontender. EXTREMITIES: no edema. PERIPHERAL PULSES: equal. NEUROLOGIC: No gross deficits, AAO X 3 Objective Labs and Meds 02/01/24 05:30 02/01/24 05:30 Lab results: Laboratory Results - last 24 hr 01/31/24 02/01/24 16:37 05:30 WBC 10.7 RBC 3.92 L Hgb 11.8 L Hct 36.4 L MCV 92.9 MCH 30.1 MCHC 32.4 RDW 15.6 Plt Count 113 L MPV 10.7 Absolute Nucleated RBC 0.000 Nucleated RBC % (auto) 0.0 Sodium 144 Potassium 3.7 Chloride 96 Carbon Dioxide 37 H Anion Gap 15 BUN 29 H Creatinine 1.12 Estim Creat Clear Calc 62.3 Estimated GFR 49 Random Glucose 136 H Calcium 9.9 Troponin I High Sens 59.4 H* Imaging Radiologist's impression: Impressions Chest X-Ray 01/31/24 13:45 IMPRESSION: Findings as above. Electronically signed by: Rigo Johnson MD 01/31/2024 04:27 PM EDT RP Assessment and Plan (1) Atrial fibrillation with rapid ventricular response: Status: Acute Plan AFib with RVR in his 63 year female with metastatic lung cancer. She is denying any symptoms currently. Clinically not in heart failure. Rate control strategy. Resume home dose of metoprolol succinate 100 mg daily and start diltiazem at 240 mg daily. If continues to be tachycardic and blood pressure has room then Toprol can be changed to 100 mg twice a day. Avoid digoxin for now. Continue Eliquis regularly. Cardioversions a possibility but unfortunately she has not been taking Eliquis regularly and she can not be cardioverted without IRISH. My concern is with her advanced lung issues and cancer how well she will tolerate sedation for procedures. We will follow along with you. Thank you for allowing me to participate in the care of your patient. Please feel free to contact me if you have any questions. Procedures Date of Service Date of Service: 02/01/24
[2024-02-01] MEDS: guaiFENesin DM 600/30 1 TAB TAB.ER.12H PO (19:44)
[2024-02-01] MEDS: Apixaban 5 MG TABLET PO (19:45)
[2024-02-01] MEDS: PARoxetine HCL 40 MG TABLET PO (19:45)
[2024-02-01] MEDS: Atorvastatin Calcium 10 MG TABLET PO (19:45)
[2024-02-02] VITALS (12 sets, daily range): BP systolic 128–170; BP diastolic 85–134; PULSE 65–112; RESP 17–21; TEMP 36.1–36.4; O2SAT 94–100
[2024-02-02] MEDS: Acetaminophen 325 MG TABLET 650 MG PO ×2 (03:24→17:21)
[2024-02-02] MEDS: Levothyroxine Sodium 25 MCG TABLET PO (04:52)
[2024-02-02] MEDS: Omeprazole 20 MG CAPSULE.DR PO (06:16)
[2024-02-02 06:59] LABS: Anion Gap 13 (12-20); Blood Urea Nitrogen 23 mg/dL (9-16); Calcium 9.8 mg/dL (8.4-10.2); Carbon Dioxide 34 mmol/L (22-29); Chloride 99 mmol/L (96-108); Creatinine Clr Calc Pharmacy 69.8; Estimated Glomerular Filt Rate 56; Glucose Random 143 mg/dL (60-115); Potassium 3.9 mmol/L (3.3-5.1); Sodium 142 mmol/L (135-145)
[2024-02-02] MEDS: Albuterol/Iprat 2.5/0.5MG 3 ML AMPUL.NEB INHALE ×4 (07:31→18:42)
[2024-02-02 07:53] LABS: Magnesium 1.8 mg/dL (1.6-2.6)
[2024-02-02 07:53] LABS: Glucose, Whole Blood 125 mg/dL (60-115)
[2024-02-02] MEDS: 0.9 % Sodium Chloride Flush 3 ML SYRINGE IVFLUSH ×3 (08:13→20:25)
[2024-02-02] MEDS: Buprenorphine/Naloxone 2/0.5mg FILM 1 FILM SUBLINGUAL (08:13)
[2024-02-02] MEDS: dilTIAZem HCL CD 240 MG CAP.ER.DEG PO (08:13)
[2024-02-02] MEDS: Magnesium Oxide 400 MG TABLET PO (08:17)
[2024-02-02] MEDS: predniSONE 10 MG TABLET 30 MG PO (08:17)
[2024-02-02] MEDS: Metoprolol Succinate ER 100 MG TAB.ER.24H PO (08:18)
[2024-02-02] MEDS: guaiFENesin DM 600/30 1 TAB TAB.ER.12H PO ×2 (08:18→20:24)
[2024-02-02] MEDS: Apixaban 5 MG TABLET PO ×2 (08:18→20:24)
[2024-02-02] MEDS: Furosemide 40 MG TABLET PO (08:18)
[2024-02-02] MEDS: Theophylline Anhydrous ER 400 MG TAB.ER.24H PO (08:19)
[2024-02-02] MEDS: PARoxetine HCL 40 MG TABLET PO ×2 (08:19→20:24)
[2024-02-02] MEDS: Folic Acid 1 MG TABLET PO (08:19)
[2024-02-02] MEDS: oxyCODONE HCl Immed Release 5 MG TABLET PO ×3 (08:19→20:24)
[2024-02-02] MEDS: Potassium Chloride ER 20 MEQ TAB.ER.PRT PO (08:19)
[2024-02-02] MEDS: levoFLOXacin 500 MG TABLET PO (13:06)
--- NOTE | 2024-02-02 13:58 | P.PNIM_ITS ---
Subjective Subjective Date of Service: 02/02/24 Interval History: HR improved since this AM; currently in 80s palpitations also improved chronic dyspnea Review of Systems Review of Systems: Yes all other systems are reviewed and are negative Physical Exam 2 Vital Signs: Vital Signs: Last Vital Signs Temp 97.0 F 02/02/24 12:00 Pulse 70 02/02/24 12:00 Resp 18 02/02/24 12:00 BP 129/86 02/02/24 12:00 Pulse Ox 95 02/02/24 12:00 O2 Del Method Nasal Cannula 02/02/24 12:00 O2 Flow Rate 3 02/02/24 12:00 Oxygen Flow Rate 2 01/31/24 13:07 BMI result Body Mass Index 34.4 Gen: in no acute distress HEENT: sclera anicteric, moist mucus membranes Neck: supple Lungs: diminished throughout Heart: irregular, no murmurs Abd: soft, non-tender, non-distended Ext: no edema Skin: warm/well-perfused Neuro: alert and oriented x3, no focal findings Psych: appropriate affect Objective Data Active Medications Acetaminophen (Acetaminophen 325 Mg Tablet) 650 mg PO Q6H PRN PRN Reason: Pain, Mild (Pain Scale 1-3), fever or headache Last Admin: 02/02/24 03:24 Dose: 650 mg Documented By: VIVI Albuterol Sulfate (Albuterol Sulfate 90 Mcg 8 Gm Inhaler) 2 puff INHALE Q6H PRN PRN Reason: sob Albuterol/Ipratropium (Albuterol/Iprat 2.5/0.5mg 3 Ml Ampul.Neb) 3 ml INHALE RQ4H WHILE AWAKE [facility] Last Admin: 02/02/24 11:15 Dose: 3 ml Documented By: GLENN Albuterol/Ipratropium (Albuterol/Iprat 2.5/0.5mg 3 Ml Ampul.Neb) 3 ml INHALE Q4H PRN PRN Reason: Wheezing Apixaban (Apixaban 5 Mg Tablet) 5 mg PO BID [facility] Last Admin: 02/02/24 08:18 Dose: 5 mg Documented By: KUSHAL Atorvastatin Calcium (Atorvastatin Calcium 10 Mg Tablet) 10 mg PO BEDTIME [facility] Last Admin: 02/01/24 19:45 Dose: 10 mg Documented By: VIVI Buprenorphine/Naloxone (Buprenorphine/Naloxone 2/0.5mg Film) 1 film SUBLINGUAL DAILY [facility] Last Admin: 02/02/24 08:13 Dose: 1 film Documented By: KUSHAL Calcium Carbonate (Calcium Carbonate 750 Mg Tab.Chew) 750 mg PO Q4H PRN PRN Reason: Heartburn Diltiazem HCl (Diltiazem Hcl Cd 240 Mg Cap.Er.Deg) 240 mg PO DAILY [facility]; Protocol Last Admin: 02/02/24 08:13 Dose: 240 mg Documented By: KUSHAL Docusate Sodium (Docusate Sodium 100 Mg Capsule) 100 mg PO BEDTIME PRN PRN Reason: stool softener Folic Acid (Folic Acid 1 Mg Tablet) 1 mg PO DAILY [facility] Last Admin: 02/02/24 08:19 Dose: 1 mg Documented By: KUSHAL Furosemide (Furosemide 40 Mg Tablet) 40 mg PO DAILY [facility]; Protocol Last Admin: 02/02/24 08:18 Dose: 40 mg Documented By: KUSHAL Guaifenesin/Dextromethorphan (Guaifenesin Dm 600/30 1 Tab Tab.Er.12h) 1 tab PO BID [facility] Last Admin: 02/02/24 08:18 Dose: 1 tab Documented By: KUSHAL Levofloxacin (Levofloxacin 500 Mg Tablet) 500 mg PO Q24H [facility] Stop: 02/03/24 13:14 Last Admin: 02/02/24 13:06 Dose: 500 mg Documented By: KUSHAL Levothyroxine Sodium (Levothyroxine Sodium 25 Mcg Tablet) 25 mcg PO DAILY@0600 [facility] Last Admin: 02/02/24 04:52 Dose: 25 mcg Documented By: VIVI Magnesium Hydroxide (Milk Of Magnesia 30 Ml Oral.Susp) 30 ml PO DAILY PRN PRN Reason: Constipation Magnesium Oxide (Magnesium Oxide 400 Mg Tablet) 400 mg PO DAILY [facility] Last Admin: 02/02/24 08:17 Dose: 400 mg Documented By: KUSHAL Melatonin (Melatonin 3 Mg Tablet) 6 mg PO BEDTIME PRN PRN Reason: Insomnia Metoprolol Succinate (Metoprolol Succinate Er 100 Mg Tab.Er.24h) 100 mg PO DAILY [facility]; Protocol Last Admin: 02/02/24 08:18 Dose: 100 mg Documented By: KUSHAL Nicotine (Nicotine 21 Mg Patch.Td24) 21 mg TRANSDERMA DAILY PRN PRN Reason: Smoking Cessation Omeprazole (Omeprazole 20 Mg Capsule.Dr) 20 mg PO DAILY@0630 [facility] Last Admin: 02/02/24 06:16 Dose: 20 mg Documented By: VIVI Ondansetron HCl (Ondansetron Hcl 4 Mg/2 Ml Vial) 4 mg IVPUSH Q8H PRN PRN Reason: Nausea and Vomiting Oxycodone HCl (Oxycodone Hcl Immed Release 5 Mg Tablet) 5 mg PO Q4H PRN PRN Reason: Pain, Severe (Pain Scale 7-10) Last Admin: 02/02/24 08:19 Dose: 5 mg Documented By: KUSHAL Paroxetine HCl (Paroxetine Hcl 40 Mg Tablet) 40 mg PO BID [facility] Last Admin: 02/02/24 08:19 Dose: 40 mg Documented By: KUSHAL Potassium Chloride (Potassium Chloride Er 20 Meq Tab.Er.Prt) 20 meq PO DAILY [facility] Last Admin: 02/02/24 08:19 Dose: 20 meq Documented By: KUSHAL Prednisone (Prednisone 10 Mg Tablet) 30 mg PO DAILY [facility] Stop: 02/05/24 08:59 Last Admin: 02/02/24 08:17 Dose: 30 mg Documented By: KUSHAL Sodium Chloride (0.9 % Sodium Chloride Flush 3 Ml Syringe) 3 ml IVFLUSH QSHIFT [facility] Last Admin: 02/02/24 08:13 Dose: 3 ml Documented By: KUSHAL Theophylline (Theophylline Anhydrous Er 400 Mg Tab.Er.24h) 400 mg PO DAILY [facility] Last Admin: 02/02/24 08:19 Dose: 400 mg Documented By: KUSHAL Labs 02/01/24 05:30 02/02/24 06:02 Labs: Laboratory Results - last 24 hr 02/02/24 02/02/24 06:02 07:45 Anion Gap 13 Estim Creat Clear Calc 69.8 Estimated GFR 56 POC Glucose 125 H Random Glucose 143 H Calcium 9.8 Magnesium 1.8 Assessment and Plan (1) Atrial fibrillation with rapid ventricular response: Status: Acute Plan d3 for 63yo F with NSCLC s/p LTIA + RUL wedge resection with metastases and currently on palliative chemotherapy, hx breast CA, depression, HCV, HTN, COPD with chronic hypoxia on 3L O2, pAF on Eliquis, chronic pain on Suboxone admitted for symptomatic AF/RVR AF/RVR - continue metoprolol succinate, diltiazem switched from IV drip to PO, continue to monitor on telemetry; Cardiology consulted; continue Eliquis reactive leucocytosis - due to steroid use, not sepsis chronic hypoxic resp failure due to COPD - continue prednisone taper + levofloxacin initiated during previous hospitalization 01/18-01/28; continue home inhalers + theophylline chronic L pleural effusion - was evaluated by crew boat operator during previous admission who suggested to hold off on thoracentesis or any surgical intervention at this time as 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 Thoracic surgery was consulted who suggested decortication but anesthesia deemed that patient may need higher level of care for that surgery. To follow with thoracic surgery as an outpatient stage IV lung cancer - follow up with outpatient Oncology hypothyroidism - continue LT4 chronic pain - continue Suboxone mood disorder - continue paroxetine HLD - continue statin VTE ppx - apixaban dispo - home with VNA probably tomorrow if rate remains controlled x24h In my clinical judgment, the patient requires continued inpatient hospitalization for the following reasons: rate control Total time managing care of this patient today: 40 minutes. Quality Stroke Does the patient have a stroke diagnosis?: No VTE Prior VTE?: No VTE Risk Level:: Medical - moderate - high VTE Device Contraindication: Treatment Not Indicated VTE Drug Contraindication: N/A - Med Ordered
[2024-02-02 16:52] LABS: Glucose, Whole Blood 187 mg/dL (60-115)
[2024-02-02] MEDS: Atorvastatin Calcium 10 MG TABLET PO (20:24)
[2024-02-03] MEDS: oxyCODONE HCl Immed Release 5 MG TABLET PO ×2 (00:52→05:39)
[2024-02-03 03:44] VITALS: BP 145/86; PULSE 86; RESP 19; O2SAT 95
[2024-02-03] MEDS: Albuterol/Iprat 2.5/0.5MG 3 ML AMPUL.NEB INHALE ×2 (05:32→07:48)
[2024-02-03 05:38] VITALS: PULSE 103; RESP 18; O2SAT 91
[2024-02-03] MEDS: Omeprazole 20 MG CAPSULE.DR PO (05:39)
[2024-02-03] MEDS: Levothyroxine Sodium 25 MCG TABLET PO (05:40)
[2024-02-03 07:38] VITALS: BP 156/95; PULSE 99; RESP 20; TEMP 36.4; O2SAT 94
[2024-02-03 07:51] VITALS: PULSE 99; RESP 15; O2SAT 93
[2024-02-03 08:22] VITALS: BP 156/95; PULSE 99
[2024-02-03] MEDS: PARoxetine HCL 40 MG TABLET PO (08:22)
[2024-02-03] MEDS: Apixaban 5 MG TABLET PO (08:22)
[2024-02-03] MEDS: Potassium Chloride ER 20 MEQ TAB.ER.PRT PO (08:22)
[2024-02-03] MEDS: predniSONE 10 MG TABLET 30 MG PO (08:22)
[2024-02-03] MEDS: Folic Acid 1 MG TABLET PO (08:22)
[2024-02-03] MEDS: Magnesium Oxide 400 MG TABLET PO (08:22)
[2024-02-03] MEDS: guaiFENesin DM 600/30 1 TAB TAB.ER.12H PO (08:22)
[2024-02-03] MEDS: dilTIAZem HCL CD 240 MG CAP.ER.DEG PO (08:22)
[2024-02-03] MEDS: 0.9 % Sodium Chloride Flush 3 ML SYRINGE IVFLUSH (08:22)
[2024-02-03 08:23] VITALS: BP 156/95; PULSE 99
[2024-02-03] MEDS: Furosemide 40 MG TABLET PO (08:23)
[2024-02-03] MEDS: Metoprolol Succinate ER 100 MG TAB.ER.24H PO (08:23)
[2024-02-03] MEDS: Buprenorphine/Naloxone 2/0.5mg FILM 1 FILM SUBLINGUAL (08:23)
[2024-02-03] MEDS: Theophylline Anhydrous ER 400 MG TAB.ER.24H PO (08:23)
--- NOTE | 2024-02-03 09:31 | PM.DS ---
DS: Providers Provider Date of Service: 02/03/24 Date of admission: 01/31/24 19:04 Date of discharge: 02/03/24 Primary care physician: Daphne Rodriguez MD Consults: 01/31/24 19:04 Consult to Cardiology Routine Consulting Provider: [facility] Reason for consultation: afib with rvr Has provider been notified: Yes DS: Diagnosis Discharge Diagnosis (1) Atrial fibrillation with rapid ventricular response: Status: Acute (2) COPD (chronic obstructive pulmonary disease): Status: Acute (3) Bilateral lung cancer: Status: Chronic (4) Pleural effusion: Status: Acute (5) Chronic hypoxic respiratory failure: Status: Acute DS: Summary Hospital Course Hospital Course: From the history and physical by the admitting hospitalist, Cheryl Barrientos MD, 02/03/24: This is a 63-year-old female with pertinent history of [id number] lung cancer status post left upper lobe and right upper lobe wedge resection with metastases on palliative chemotherapy, history of breast cancer, depression, hepatitis-C, hypertension, COPD with chronic hypoxic respiratory failure on 3 L home O2, paroxysmal atrial fibrillation on anticoagulation, opiate dependence who presented to the emergency department for evaluation of palpitations. Patient states she started having palpitations on the day of presentation. Her visiting nurse made her come to the ER. Nurse noted that the patient's heart rate was elevated and she was in AFib with RVR nurse the patient to come to the ER. Of note, patient was recently admitted with acute on chronic hypoxic respiratory failure due to pneumonia and COPD exacerbation and discharged on 01/28. Patient states she has been compliant with her medications since being discharged. No fever, chills. States she has chronic dyspnea at baseline which is not worse than usual. No nausea, vomiting, abdominal pain, changes in urinary or bowel habits. In the emergency department, patient was found to be in AFib with RVR and initiated on IV diltiazem drip. 63yo F with NSCLC s/p LITA + RUL wedge resection with metastases and currently on palliative chemotherapy, hx breast CA, depression, HCV, HTN, COPD with chronic hypoxia on 3L O2, pAF on Eliquis, and chronic pain on Suboxone. She was admitted to the telemetry unit for symptomatic AF/RVR. Cardiology was consulted. She was initially on a diltiazem drip and transitioned to PO diltiazem, 240 mg/day [down from prior dose of 360 mg/day]. PO metoprolol succinate was increased from 100 to 150 mg daily and her AF remained controlled in the 80s-90s for 24hr. Eliquis was continud for CVA prevention. She was continued on prednisone taper and levofloxacin as prescribed on previous discharge from [facility] [place]. 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 Thoracic Surgery had been consulted and suggested decortication, but Anesthesia deemed that patient may need higher level of care for that surgery. She should follow with Pulmonology and Thoracic Surgery as an outpatient. She remained stable from a respiratory perspective on the current admission, maintained on 3L O2. Time Attestation Discharge Coordination Time (in mins): 40 Quality: Safe Use of Opioids Does Pt have an Active Cancer Diagnosis on the Problem List?: Yes Opioid Measure Date for [facility] Report: 01/04/24 Opioid Measure Time for [facility] Report: 09:38 Quality: Stroke Does the patient have a stroke diagnosis?: No Physical Exam Vital Signs: Vital Signs: Last Vital Signs Temp 97.5 F 02/03/24 07:38 Pulse 99 02/03/24 08:23 Resp 15 02/03/24 07:51 BP 156/95 H 02/03/24 08:23 Pulse Ox 94 02/03/24 07:38 O2 Del Method Nasal Cannula 02/03/24 07:38 O2 Flow Rate 2 02/03/24 07:38 Oxygen Flow Rate 2 01/31/24 13:07 BMI result Body Mass Index 34.4 en: in no acute distress HEENT: sclera anicteric, moist mucus membranes Neck: supple Lungs: diminished throughout Heart: irregular, no murmurs Abd: soft, non-tender, non-distended Ext: no edema Skin: warm/well-perfused Neuro: alert and oriented x3, no focal findings Psych: appropriate affect DS: Data Data Completed and Pending Completed studies during hospitalization [Text1]: Laboratory Results WBC 10.7 X10*3/uL (4.8-10.8) 02/01/24 05:30 RBC 3.92 X10*6/uL (4.20-5.50) L 02/01/24 05:30 Hgb 11.8 g/dl (12.0-16.0) L 02/01/24 05:30 Hct 36.4 % (37.0-47.0) L 02/01/24 05:30 MCV 92.9 fL (80.0-98.0) 02/01/24 05:30 MCH 30.1 pg (27.0-33.0) 02/01/24 05:30 MCHC 32.4 g/dl (31.0-35.0) 02/01/24 05:30 RDW 15.6 % (11.0-16.0) 02/01/24 05:30 Plt Count 113 X10*3/uL (160-400) L 02/01/24 05:30 MPV 10.7 fL (9.4-12.3) 02/01/24 05:30 Immature Gran % (Auto) 1.8 % (0.0-0.4) H 01/31/24 13:26 Neut % (Auto) 85.6 % (45-73) H 01/31/24 13:26 Lymph % (Auto) 5.1 % (20-40) L 01/31/24 13:26 Mcclain % (Auto) 6.3 % (2-11) 01/31/24 13:26 Eos % (Auto) 1.0 % (0-4) 01/31/24 13:26 Baso % (Auto) 0.2 % (0-2) 01/31/24 13:26 Lymph # (Auto) 0.7 X10*3/uL (1.2-4.9) L 01/31/24 13:26 Mcclain # (Auto) 0.9 X10*3/uL (0.1-1.2) 01/31/24 13:26 Eos # (Auto) 0.1 X10*3/uL (0.0-0.4) 01/31/24 13:26 Baso # (Auto) 0.0 X10*3/uL (0.0-0.2) 01/31/24 13:26 Abs Immat Gran (auto) 0.26 X10*3/uL (0.00-0.03) H 01/31/24 13:26 Absolute Neuts (auto) 12.0 x10*3/uL (2.0-8.3) H 01/31/24 13:26 Absolute Nucleated RBC 0.000 X10*3/uL (0.0-0.012) 02/01/24 05:30 Nucleated RBC % (auto) 0.0 /100WBC (0.0-0.2) 02/01/24 05:30 PT 13.7 SEC (10.9-12.4) H 01/31/24 13:26 INR 1.2 (0.9-1.1) H 01/31/24 13:26 VBG pH 7.48 (7.32-7.43) H 01/31/24 13:29 VBG pCO2 59 mmHg 01/31/24 13:29 VBG pO2 36 mmHg 01/31/24 13:29 VBG HCO3 44 mmol/L (22-26) H 01/31/24 13:29 VBG O2 Saturation 51.0 % 01/31/24 13:29 VBG Base Excess 17.8 mmol/L 01/31/24 13:29 Sodium 142 mmol/L (135-145) 02/02/24 06:02 Potassium 3.9 mmol/L (3.3-5.1) 02/02/24 06:02 Chloride 99 mmol/L (96-108) 02/02/24 06:02 Carbon Dioxide 34 mmol/L (22-29) H 02/02/24 06:02 Anion Gap 13 (12-20) 02/02/24 06:02 BUN 23 mg/dL (9-16) H 02/02/24 06:02 Creatinine 1.00 mg/dL (0.5-1.4) 02/02/24 06:02 Estim Creat Clear Calc 69.8 02/02/24 06:02 Estimated GFR 56 02/02/24 06:02 POC Glucose 187 mg/dL (60-115) H 02/02/24 16:28 Random Glucose 143 mg/dL (60-115) H 02/02/24 06:02 Calcium 9.8 mg/dL (8.4-10.2) 02/02/24 06:02 Magnesium 1.8 mg/dL (1.6-2.6) 02/02/24 06:02 Total Bilirubin 0.4 mg/dL (0.0-1.0) 01/31/24 13:26 AST 34 U/L (5-31) H 01/31/24 13:26 ALT 21 U/L (0-31) 01/31/24 13:26 Alkaline Phosphatase 51 U/L (39-117) 01/31/24 13:26 Troponin I High Sens 59.4 ng/L (<3.5-17.0) H* 01/31/24 16:37 B-Natriuretic Peptide 215 pg/mL (<100) H 01/31/24 13:26 Total Protein 6.5 g/dL (6.5-8.0) 01/31/24 13:26 Albumin 3.8 g/dL (3.5-5.0) 01/31/24 13:26 Lipase 105 U/L (8-78) H 01/31/24 13:26 Impressions Chest X-Ray 01/31/24 13:45 IMPRESSION: Findings as above. Electronically signed by: Rigo Johnson MD 01/31/2024 04:27 PM EDT RP Discharge Plan Discharge Anticipated Discharge Date/Time: 02/03/24 09:24 Patient Disposition: Home Health Service Discharge Diagnosis: atrial fibrillation with rapid ventricular response Referrals: Froilan CUADRA [Outside] - 1 Week Daphne Rodriguez MD [Primary Care Provider] - 1 Week Simone Ramachandran MD [Physician] - 2 Weeks Benjamin Hobbs MD [Physician] - 1 Month Kwesi Saravia MD [Physician] - 2 Weeks Discharge Medications: New metoprolol succinate 50 mg Tablet Extended Release 24 Hr 150 mg PO DAILY Qty: 45 0RF Protocol: Hold for SBP/HR < HOLD for SBP < : 90 HOLD for HR < : 60 diltiazem HCl 240 mg Capsule,Extended Release 24hr 240 mg PO DAILY Qty: 30 0RF Protocol: Hold for SBP/HR < HOLD for SBP < : 90 HOLD for HR < : 60 Continued theophylline 400 mg tablet extended release 24 hr 400 mg PO DAILY Qty: 30 0RF levothyroxine [Synthroid] 25 mcg tablet 25 mcg PO DAILY@0600 0RF potassium chloride [K-Tab] 20 mEq Tablet Extended Release 20 meq PO DAILY Qty: 30 0RF folic acid 1 mg tablet 1 mg PO DAILY Qty: 90 3RF paroxetine HCl 20 mg tablet 40 mg PO BID omeprazole 20 mg capsule,delayed release(DR/EC) 20 mg PO DAILY@0630 Savella 50 mg tablet 50 mg PO BID simvastatin 20 mg Tablet 20 mg PO BEDTIME docusate sodium 100 mg capsule 100 mg PO BEDTIME PRN (Reason: stool softener) buprenorphine-naloxone [Suboxone] 2-0.5 mg film 1 film sublingual DAILY Anoro Ellipta 62.5-25 mcg/actuation blister with device 1 inh INHALATION DAILY ipratropium-albuterol 0.5 mg-3 mg(2.5 mg base)/3 mL solution for nebulization 3 ml inhalation Q6H PRN (Reason: wheezing) acetaminophen 500 mg Tablet 500 mg PO DAILY PRN (Reason: Pain) Eliquis 5 mg Tablet 5 mg PO BID Qty: 60 0RF furosemide 40 mg tablet 40 mg PO DAILY nicotine 21 mg/24 hr patch 24 hour 21 mg transdermal DAILY PRN (Reason: Smoking Cessation) Mucus DM 30-600 mg Tablet Extended Release 12 Hr 1 tab PO BID Qty: 20 0RF magnesium oxide 400 mg magnesium tablet 400 mg PO DAILY Qty: 90 0RF prednisone 10 mg tablet See Taper PO DIRECTED Qty: 30 0RF Taper: Prednisone 40 mg daily for 3 Days and 0 Hour 30 mg daily for 3 Days and 0 Hour 20 mg daily for 3 Days and 0 Hour 10 mg daily for 3 Days and 0 Hour Rx Instructions: see taper instructions levofloxacin 750 mg tablet 750 mg PO DAILY Qty: 5 0RF buprenorphine-naloxone [Suboxone] 2-0.5 mg film 1 film sublingual DAILY PRN (Reason: Pain) albuterol sulfate [Ventolin HFA] 90 mcg/actuation HFA aerosol inhaler 2 puff inhalation Q6H PRN (Reason: sob) Discontinued metoprolol succinate 100 mg Tablet Extended Release 24 Hr 100 mg PO DAILY Qty: 30 0RF Protocol: Hold for SBP/HR < HOLD for SBP < : 90 HOLD for HR < : 60 diltiazem HCl [Cardizem CD] 360 mg capsule,extended release 24hr 360 mg PO DAILY Discharge Orders: Discharge Order (Routine); Ordered 02/03/24 Ordered By: Jaehyun Pb Diet: Advance to usual diet Activity on Discharge: As tolerated Stand Alone Forms: Patient Portal Discharge page Print Language: Bahamian Care Plan Goals: normal heart rate Health Concerns: atrial fibrillation with rapid ventricular response Plan of Treatment: home with [facility] services as previously arranged DECREASE diltiazem from 360 to 240 mg daily INCREASE metoprolol succinate from 100 to 150 mg daily [take one and a half 100 mg tabs] CONTINUE prednisone taper as previously prescribed- 30 mg on 02/03 then 20 mg starting 02/04 FINISH levofloxacin- last dose 02/02 follow up with [facility] [place] 2 [place] for atrial fibrillation for pleural effusion, follow up with [facility] in 2 weeks and [facility] in 1 month Please follow up with your primary care doctor within 1 week. Return to the hospital if you experience recurrent or worsening symptoms. Assessment: See Discharge Summary.
--- NOTE | 2024-02-03 09:35 | MHC.CM.PN ---
Patient has been medically cleared for dc to home today, with services. Patient is active with [facility], who has been made aware of today's dc.
--- NOTE | 2024-02-03 10:25 | MHC.CM.PN ---
Patient will transport back to home via [facility] at 11 AM; RT has arranged for portable O2 for transport. RN is aware.
== END 2024-02-03 10:52 | disposition home health service (06) | DRG 201 ==
LOC: HO.ED 17:47 → HO.EDOVER 19:34 → HO.IMC 23:26
PROVIDERS: Nurse Practitioner Acute Care; Admitting Provider Student in an Organized Health Care Education/Training Program; Emergency Provider Emergency Medicine Emergency Medical Services; PCP Pediatrics; Visit Provider Family Medicine
DX: I48.0 Paroxysmal atrial fibrillation (principal); J90 Pleural effusion, not elsewhere classified; J96.11 Chronic respiratory failure with hypoxia; C34.92 Malignant neoplasm of unspecified part of left bronchus or lung; C34.91 Malignant neoplasm of unspecified part of right bronchus or lung; C78.7 Secondary malignant neoplasm of liver and intrahepatic bile duct; Z85.3 Personal history of malignant neoplasm of breast; F11.20 Opioid dependence, uncomplicated; E78.2 Mixed hyperlipidemia; J44.9 Chronic obstructive pulmonary disease, unspecified; Z23 Encounter for immunization; Z99.81 Dependence on supplemental oxygen; Z79.01 Long term (current) use of anticoagulants; Z90.2 Acquired absence of lung [part of]; Z87.891 Personal history of nicotine dependence; Z79.890 Hormone replacement therapy; Z79.899 Other long term (current) drug therapy
CPT/HCPCS: 36415; 71045; 80048; 80053; 82803; 82947; 83690; 83735; 83880; 84484; 85025; 85027; 85610; 90656; 93005; 94640; 99285; J2060

== ENCOUNTER → 2024-01-31 19:04 | Outpatient (BNV) | payer MEDICAID, SELFPAY | PROVIDERS: Admitting Provider Student in an Organized Health Care Education/Training Program; Emergency Provider Emergency Medicine Emergency Medical Services; PCP Pediatrics; Visit Provider Internal Medicine Cardiovascular Disease | DX: I48.91 Unspecified atrial fibrillation (principal) | CPT/HCPCS: 93010; 99223 ==

== ENCOUNTER → 2024-01-31 19:04 | Outpatient (BNV) | payer MEDICAID, SELFPAY | PROVIDERS: Admitting Provider Student in an Organized Health Care Education/Training Program; Emergency Provider Emergency Medicine Emergency Medical Services; Visit Provider Student in an Organized Health Care Education/Training Program | DX: I48.91 Unspecified atrial fibrillation (principal); J96.11 Chronic respiratory failure with hypoxia | CPT/HCPCS: 99223; 99232; 99239 ==

== ENCOUNTER 2024-02-04 13:40 | Outpatient (RCR) | payer MEDICAID, SELFPAY ==
[2021-02-20 14:27] VITALS: BP 127/68; PULSE 61; RESP 20; TEMP 35.7; O2SAT 97; BMI 38.5
--- NOTE | 2021-02-20 14:41 | P.CNHO_ITS ---
Subjective - Subjective Chief complaint: Lung cancer Patient: new to practice Consult date: 02/20/21 Primary Care Provider: Daphne Rodriguez MD Medical Summary: Diagnosis: Right upper lobe Wedge resection in July 2019, adenocarcinoma Left lower lobe wedge resection in January 2021 adenocarcinoma HPI - Consult Narrative Reason for consult: Lung adenocarcinoma Narrative: Elida Schumacher is a 60 year old female who has been referred for management of lung cancer. She was diagnosed with right lung cancer last year and underwent surgery. Subsequently she was diagnosed with a 2nd tumor in the right lower lobe and underwent wedge resection in January 2021. This was also diagnosed as adenocarcinoma. She has had both her surgeries at [facility]. She has recovered from surgery. She reports slight tenderness at the left lower chest wall, surgical site. She feels her upper abdomen is somewhat distended. She denies any changes to her bowel habits. She is up-to-date with colonoscopy. She was not recommended adjuvant chemotherapy or radiation therapy last year for her her right lung cancer. In 2006 she was treated for right breast cancer with lumpectomy followed by radiation therapy. She denies loss of appetite or weight loss. She is trying to cut back smoking. No fever or chills. Review of Systems - Constitutional Reports as per HPI, Reports difficulty sleeping - Eyes Reports no additional eye complaints, Denies change in vision - Cardiovascular Reports no additional cardiovascular complaints - Respiratory Reports no additional respiratory complaints - Gastrointestinal Reports no additional gastrointestinal complaints Oncology Screenings - ECOG Performance Status ECOG Performance Status: 1 [facility] Medical History: Medical History (Last Reviewed 02/20/21 @ 14:33 by Jani Sarabia RN) COPD (chronic obstructive pulmonary disease) Depression GERD (gastroesophageal reflux disease) History of breast cancer History of hepatitis C HTN (hypertension) Internal and external bleeding hemorrhoids Obesity Pulmonary nodules Smoker Tubular adenoma of colon Family History: Family History (Last Updated 02/20/21 @ 14:38 by Jani Sarabia RN) Mother History of lung cancer Brother History of lung cancer Maternal Grandmother Breast cancer in female Maternal Aunt Breast cancer in female Daughter Thyroid cancer Surgical History: Surgical History (Last Reviewed 02/20/21 @ 14:34 by Jani Sarabia RN) History of anterior colporrhaphy Onset Date: ~2016 History of back surgery Onset Date: ~2011 History of colonoscopy Onset Date: ~2014 History of hemorrhoidectomy Onset Date: ~2019 History of lobectomy of lung Onset Date: ~2019 History of lumpectomy of right breast Onset Date: ~2006 History of tubal ligation Social History: Social History (Last Updated 02/20/21 @ 14:43 by Jani Sarabia RN) Alcohol History: Alcohol intake: current Alcohol History Details: Alcohol intake frequency: a few times a week Alcohol type: beer Alcohol type: wine Alcohol type: hard liquor Tobacco History: Patient Tobacco Use Status: Current everyday Tobacco Tobacco use type: Cigarette Years Smoked: 46 Smoked in Last 30 Days: Yes Substance Use History: Use of substances other than those prescribed or required for medical reasons : Yes Last Used Substance Other:: IV heroin 8 years ago Home Medications and Allergies Home Medications Medication Instructions Recorded Confirmed Type aspirin 81 mg tablet,delayed 81 mg PO DAILY 02/12/20 02/20/21 History release (Aspirin Low Dose) buprenorphine 12 mg-naloxone 3 mg 1 film BUCCAL Q24H 02/12/20 02/20/21 History sublingual film (Suboxone) cholecalciferol (vitamin D3) 50 50 mcg PO DAILY 02/12/20 02/20/21 History mcg (2,000 unit) capsule (Vitamin D3) diltiazem HCl 180 mg 180 mg PO DAILY 02/12/20 02/20/21 History capsule,extended release 24 hr, controlled metoprolol tartrate 50 1 tab PO DAILY 02/12/20 02/20/21 History mg-hydrochlorothiazide 25 mg tablet milnacipran 50 mg tablet (Savella) 50 mg PO BID 02/12/20 02/20/21 History omeprazole 20 mg capsule,delayed 20 mg PO DAILY 02/12/20 02/20/21 History release paroxetine HCl 30 mg tablet 60 mg PO DAILY 02/12/20 02/20/21 History simvastatin 20 mg tablet 20 mg PO BEDTIME 02/12/20 02/20/21 History nicotine 21 mg/24 hr daily 1 patch TOPICAL DAILY 02/20/21 02/20/21 History transdermal patch Allergies Allergy/AdvReac Type Severity Reaction Status Date / Time lisinopril [LISINOPRIL] Allergy Severe SWELLING- Verified 01/03/21 11:26 ANGIOEDEMA codeine [CODEINE] Allergy Intermediate VOMITING/HIVES, Verified 01/03/21 11:26 vomiting, hives Physical Exam Vital signs: Vital Signs Temp 96.3 F L 02/20/21 14:27 Pulse 61 02/20/21 14:27 Resp 20 02/20/21 14:27 BP 127/68 02/20/21 14:27 Pulse Ox 97 02/20/21 14:27 Intake & Output 02/19/21 02/20/21 02/20/21 18:59 06:59 18:59 Other: Weight 111.4 kg [place] Weight in Grams [id number] Weight 111.4 kg - Constitutional Present: no acute distress - Routine HEENT Exam Head: Present: normal inspection Eye: Present: EOMI - Routine Neck Exam Present: supple. Absent: lymphadenopathy - Routine Respiratory Exam Present: CTAB. Absent: respiratory distress, rhonchi - Routine Cardiovascular Exam Cardiovascular: Present: RRR, S1, S2 - Routine Abdominal Exam Present: distended, soft. Absent: organomegaly - Routine Extremities Exam Present: pulses intact - Routine Skin Exam Present: intact. Absent: cyanosis Assessment and Plan Patient Active problem list reviewed?: Yes (1) Bilateral lung cancer Status: Acute Assessment and plan: 1. This is a pleasant 60-year-old woman with bilateral lung adenocarcinoma. She was diagnosed with right upper lobe lung adenocarcinoma and underwent right upper lobectomy/mediastinal lymphadenectomy on 08/03/2019 at [facility]. Pathology revealed invasive adenocarcinoma, tumor size 1.3 x 0.9 x 0.5 cm, moderately differentiated, tumor invades visceral pleura, no satellite nodules. Vascular invasion present, margins negative. Pathological TNM stage PT2a, pN0, MX. Surveillance CT chest with contrast performed 12/26/2020 showed stable postsurgical changes, 2 new/increasing suspicious areas in the right lower lobe nodules. Interval increase in suspicious appearing cavitary left upper lobe nodule. Numerous bilateral small ground-glass nodules. On 01/21/2021 patient underwent left upper lobe wedge resection and lymph node biopsies. Pathology revealed adenocarcinoma tumor size 1.8 x 1.8 x 1.1 cm. Single focus, G2 moderately differentiated, visceral pleural invasion identified, lymphovascular invasion not identified. Margins negative. Two lymph nodes were examined, negative for carcinoma. Pathological TNM stage pT2a pN0. Molecular studies to be obtained from [facility], this was ordered last week. Stage IB cancer without any high-risk features such as lymphovascular invasion. There is no survival benefit of adjuvant chemotherapy. However CT scan showed 2 additional suspicious nodules in the right lung, therefore, metastatic disease is still a possibility. I have ordered a PET-CT, blood work/CEA level is pending. Depending on this, further recommendations about treatment will be made. - Time Spent With Patient Time Spent with Patient (in minutes): 45
--- NOTE | 2021-02-20 15:32 | MHC.HEMONC ---
I met with patient following her Consultation with Dr Samuels. She recently had wedge resection done and is recovering slowly. Dr Samuels ordered a CT and pt will f/u here in one month. Pt is smoking 2 packs a day and is trying to quit with Patch. She had to hurry out but I told her I could provide some information on quitting tobacco at her next visit. I gave her my contact information.
--- NOTE | 2021-02-21 16:41 | HO.HEMONCPA ---
NO PA REQUIRED FOR PET SCAN PER [facility].
--- NOTE | 2021-02-24 10:55 | MHC.HEMONCMA ---
[facility] PET form along with supporting documentation sent to [facility] for scheduling. I will await their call for their date.
--- NOTE | 2021-04-15 15:21 | PM.HEMONCPN ---
Medical Summary - Medical Summary Date of Service: 04/15/21 Chief complaint: follow-up Medical Summary: Diagnosis: Right upper lobe Wedge resection in July 2019, adenocarcinoma Left lower lobe wedge resection in January 2021 adenocarcinoma Interval History Interval history: Patient is here in follow-up. She is doing well and has no new complaints. She denies loss of appetite or weight loss. She is trying to cut back smoking. No fever or chills. Her whole family was sick with COVID-19 during the holidays but fortunately she did not get it. She is here to discuss results of recent imaging studies. Review of Systems - Constitutional Reports as per HPI, Reports no additional constitutional complaints - Cardiovascular Reports no additional cardiovascular complaints - Respiratory Reports no additional respiratory complaints [facility] Medical History: Medical History (Last Reviewed 04/15/21 @ 15:34 by Olga Gibbons) Bilateral lung cancer Cancer of upper lobe of left lung Onset Date: ~2020 Cancer of upper lobe of right lung Onset Date: ~2019 COPD (chronic obstructive pulmonary disease) Depression GERD (gastroesophageal reflux disease) History of breast cancer Onset Date: ~2006 History of hepatitis C HTN (hypertension) Internal and external bleeding hemorrhoids Obesity Pulmonary nodules Smoker Tubular adenoma of colon Family History: Family History (Last Reviewed 04/15/21 @ 15:34 by Olga Gibbons) Mother History of lung cancer Brother History of lung cancer Maternal Grandmother Breast cancer in female Maternal Aunt Breast cancer in female Daughter Thyroid cancer Surgical History: Surgical History (Last Reviewed 04/15/21 @ 15:34 by Olga Gibbons) History of anterior colporrhaphy Onset Date: ~2016 History of back surgery Onset Date: ~2011 History of colonoscopy Onset Date: ~2014 History of hemorrhoidectomy Onset Date: ~2019 History of lobectomy of lung Onset Date: ~2019 History of lumpectomy of right breast Onset Date: ~2006 History of lung surgery Onset Date: ~2020 History of tubal ligation Social History: Social History (Last Updated 04/15/21 @ 15:36 by Olga Gibbons) Living Situation History: Housing: Apartment Alcohol History: Alcohol intake: current Alcohol History Details: Alcohol intake frequency: a few times a week Alcohol type: beer Alcohol type: wine Alcohol type: hard liquor Tobacco History: Patient Tobacco Use Status: Current everyday Tobacco Tobacco use type: Cigarette Years Smoked: 46 Smoked in Last 30 Days: Yes Substance Use History: Use of substances other than those prescribed or required for medical reasons: Yes Last Used Substance Other:: IV heroin 8 years ago Occupation Assessmet: Current occupational status: disabled Current occupational exposures/hazards: No Home Medications and Allergies Home Medications Medication Instructions Recorded Confirmed Type aspirin 81 mg tablet,delayed 81 mg PO DAILY 02/12/20 04/15/21 History release (Aspirin Low Dose) buprenorphine 12 mg-naloxone 3 mg 1 film BUCCAL Q24H 02/12/20 04/15/21 History sublingual film (Suboxone) cholecalciferol (vitamin D3) 50 50 mcg PO DAILY 02/12/20 04/15/21 History mcg (2,000 unit) capsule (Vitamin D3) diltiazem HCl 180 mg 180 mg PO DAILY 02/12/20 04/15/21 History capsule,extended release 24 hr, controlled metoprolol tartrate 50 1 tab PO DAILY 02/12/20 04/15/21 History mg-hydrochlorothiazide 25 mg tablet milnacipran 50 mg tablet (Savella) 50 mg PO BID 02/12/20 04/15/21 History omeprazole 20 mg capsule,delayed 20 mg PO DAILY 02/12/20 04/15/21 History release paroxetine HCl 30 mg tablet 60 mg PO DAILY 02/12/20 04/15/21 History simvastatin 20 mg tablet 20 mg PO BEDTIME 02/12/20 04/15/21 History nicotine 21 mg/24 hr daily 1 patch TOPICAL DAILY 02/20/21 04/15/21 History transdermal patch Allergies Allergy/AdvReac Type Severity Reaction Status Date / Time lisinopril [LISINOPRIL] Allergy Severe SWELLING- Verified 04/15/21 15:34 ANGIOEDEMA codeine [CODEINE] Allergy Intermediate VOMITING/HIVES, Verified 04/15/21 15:34 vomiting, hives Exam Vital signs: Vital Signs Temp 96.3 F L 02/20/21 14:27 Pulse 61 02/20/21 14:27 Resp 20 02/20/21 14:27 BP 127/68 02/20/21 14:27 Pulse Ox 97 02/20/21 14:27 Weight 111.4 kg BMI result Body Mass Index 38.5 - Constitutional Present: no acute distress - Routine HEENT Exam Head: Present: normal inspection - Routine Respiratory Exam Present: CTAB. Absent: respiratory distress, rhonchi - Routine Cardiovascular Exam Cardiovascular: Present: RRR, S1, S2 - Routine Abdominal Exam Present: distended, soft. Absent: organomegaly - Routine Extremities Exam Present: pulses intact - Routine Skin Exam Present: intact. Absent: cyanosis Assessment and Plan Patient Active problem list reviewed?: Yes (1) Bilateral lung cancer Problem details: (RUL lobectomy 08/2019 & LITA wedge 01/2021) Status: Chronic Assessment and plan: 1. This is a pleasant 60-year-old woman with bilateral lung adenocarcinoma. She was diagnosed with right upper lobe lung adenocarcinoma and underwent right upper lobectomy/mediastinal lymphadenectomy on 08/03/2019 at [facility]. Pathology revealed invasive adenocarcinoma, tumor size 1.3 x 0.9 x 0.5 cm, moderately differentiated, tumor invades visceral pleura, no satellite nodules. Vascular invasion present, margins negative. Pathological TNM stage PT2a, pN0, MX. Surveillance CT chest with contrast performed 12/26/2020 showed stable postsurgical changes, 2 new/increasing suspicious areas in the right lower lobe nodules. Interval increase in suspicious appearing cavitary left upper lobe nodule. Numerous bilateral small ground-glass nodules. On 01/21/2021 patient underwent left upper lobe wedge resection and lymph node biopsies. Pathology revealed adenocarcinoma tumor size 1.8 x 1.8 x 1.1 cm. Single focus, G2 moderately differentiated, visceral pleural invasion identified, lymphovascular invasion not identified. Margins negative. Two lymph nodes were examined, negative for carcinoma. Pathological TNM stage pT2a pN0. Molecular studies to be obtained from [facility], this was ordered last week. Stage IB cancer without any high-risk features such as lymphovascular invasion. There is no survival benefit of adjuvant chemotherapy. However CT scan showed 2 additional suspicious nodules in the right lung, therefore, PET-CT was ordered. This did not show evidence of metastatic disease. There were 2 indeterminate lesions in the liver, CT abdomen and pelvis with contrast showed these liver lesions to be benign. CEA level mildly elevated which could be related to her smoking. She will be monitored closely. She was strongly advised to stop smoking. Follow-up in 3 months. - Time Spent With Patient Time Spent with Patient (in minutes): 15
[2021-04-15 15:31] VITALS: BP 162/94; PULSE 62; RESP 16; TEMP 36.8; O2SAT 96; BMI 37.4
--- NOTE | 2021-07-09 15:02 | HE.ONCSEC ---
PATIENT CALLED TO CANCEL [facility] APPT AT 3:00PM . PT DID NOT SPECIFY WHY . I WILL RESCHEDULE W/ PATIENT ON THE PHONE .
[2021-07-24 13:01] VITALS: BP 132/73; PULSE 60; RESP 15; TEMP 36.1; O2SAT 96; BMI 35.5
--- NOTE | 2021-07-24 13:07 | PM.HEMONCPN ---
Medical Summary - Medical Summary Date of Service: 07/24/21 Chief complaint: follow-up Medical Summary: Diagnosis: Right upper lobe Wedge resection in July 2019, adenocarcinoma Left lower lobe wedge resection in January 2021 adenocarcinoma She was diagnosed with right upper lobe lung adenocarcinoma and underwent right upper lobectomy/mediastinal lymphadenectomy on 08/03/2019 at [facility]. Pathology revealed invasive adenocarcinoma, tumor size 1.3 x 0.9 x 0.5 cm, moderately differentiated, tumor invades visceral pleura, no satellite nodules. Vascular invasion present, margins negative. Pathological TNM stage PT2a, pN0, MX. Surveillance CT chest with contrast performed 12/26/2020 showed stable postsurgical changes, 2 new/increasing suspicious areas in the right lower lobe nodules. Interval increase in suspicious appearing cavitary left upper lobe nodule. Numerous bilateral small ground-glass nodules. On 01/21/2021 patient underwent left upper lobe wedge resection and lymph node biopsies. Pathology revealed adenocarcinoma tumor size 1.8 x 1.8 x 1.1 cm. Single focus, G2 moderately differentiated, visceral pleural invasion identified, lymphovascular invasion not identified. Margins negative. Two lymph nodes were examined, negative for carcinoma. Pathological TNM stage pT2a pN0. Molecular studies to be obtained from [facility], this was ordered last week. Stage IB cancer without any high-risk features such as lymphovascular invasion. Interval History Interval history: Patient is here in follow-up. She is doing well and has no new complaints. She denies loss of appetite or weight loss. She is trying to cut back smoking. No fever or chills. She wants to know if she is due for imaging studies. Review of Systems - Constitutional Denies anorexia, Denies fever(s), Denies weakness, Denies weight loss [facility] Medical History: Medical History (Last Reviewed 07/24/21 @ 13:04 by Bria Akers CMA) Bilateral lung cancer Cancer of upper lobe of left lung Onset Date: ~2020 Cancer of upper lobe of right lung Onset Date: ~2019 COPD (chronic obstructive pulmonary disease) Depression GERD (gastroesophageal reflux disease) History of breast cancer Onset Date: ~2006 History of hepatitis C HTN (hypertension) Internal and external bleeding hemorrhoids Obesity Pulmonary nodules Smoker Tubular adenoma of colon Family History: Family History (Last Reviewed 07/24/21 @ 13:05 by Bria Akers CMA) Mother History of lung cancer Brother History of lung cancer Maternal Grandmother Breast cancer in female Maternal Aunt Breast cancer in female Daughter Thyroid cancer Surgical History: Surgical History (Last Reviewed 07/24/21 @ 13:04 by Bria Akers CMA) History of anterior colporrhaphy Onset Date: ~2016 History of back surgery Onset Date: ~2011 History of colonoscopy Onset Date: ~2014 History of hemorrhoidectomy Onset Date: ~2019 History of lobectomy of lung Onset Date: ~2019 History of lumpectomy of right breast Onset Date: ~2006 History of lung surgery Onset Date: ~2020 History of tubal ligation Social History: Social History (Last Reviewed 07/24/21 @ 13:05 by Bria Akers [facility]) Living Situation History: Housing: Apartment Tobacco History: Patient Tobacco Use Status: Current everyday Tobacco Tobacco use type: Cigarette Years Smoked: 46 Smoked in Last 30 Days: Yes Substance Use History: Use of substances other than those prescribed or required for medical reasons: Yes Last Used Substance Other:: IV heroin 8 years ago Occupation Assessmet: Current occupational status: disabled Current occupational exposures/hazards: No Home Medications and Allergies Home Medications Medication Instructions Recorded Confirmed Type aspirin 81 mg tablet,delayed 81 mg PO DAILY 02/12/20 07/24/21 History release (Aspirin Low Dose) buprenorphine 12 mg-naloxone 3 mg 1 film BUCCAL Q24H 02/12/20 07/24/21 History sublingual film (Suboxone) cholecalciferol (vitamin D3) 50 50 mcg PO DAILY 02/12/20 07/24/21 History mcg (2,000 unit) capsule (Vitamin D3) diltiazem HCl 180 mg 180 mg PO DAILY 02/12/20 07/24/21 History capsule,extended release 24 hr, controlled metoprolol tartrate 50 1 tab PO DAILY 02/12/20 07/24/21 History mg-hydrochlorothiazide 25 mg tablet milnacipran 50 mg tablet (Savella) 50 mg PO BID 02/12/20 07/24/21 History omeprazole 20 mg capsule,delayed 20 mg PO DAILY 02/12/20 07/24/21 History release paroxetine HCl 30 mg tablet 60 mg PO DAILY 02/12/20 07/24/21 History simvastatin 20 mg tablet 20 mg PO BEDTIME 02/12/20 07/24/21 History nicotine 21 mg/24 hr daily 1 patch TOPICAL DAILY 02/20/21 07/24/21 History transdermal patch Allergies Allergy/AdvReac Type Severity Reaction Status Date / Time lisinopril [LISINOPRIL] Allergy Severe SWELLING- Verified 07/24/21 13:05 ANGIOEDEMA codeine [CODEINE] Allergy Intermediate VOMITING/HIVES, Verified 07/24/21 13:05 vomiting, hives Exam Vital signs: Vital Signs Temp 97.0 F 07/24/21 13:01 Pulse 60 07/24/21 13:01 Resp 15 07/24/21 13:01 BP 132/73 07/24/21 13:01 Pulse Ox 96 07/24/21 13:01 Intake & Output 07/23/21 07/24/21 07/24/21 18:59 06:59 18:59 Other: Weight 103 kg [place] Weight in Grams [id number] Weight 103 kg BMI result Body Mass Index 35.5 - Constitutional Present: no acute distress - Routine HEENT Exam Head: Present: normal inspection - Routine Respiratory Exam Present: CTAB. Absent: respiratory distress, rhonchi - Routine Cardiovascular Exam Cardiovascular: Present: RRR, S1, S2 - Routine Abdominal Exam Present: distended, soft. Absent: organomegaly - Routine Extremities Exam Present: pulses intact - Routine Skin Exam Present: intact. Absent: cyanosis Data - Labs CBC & Chem 7: 07/24/21 13:26 07/24/21 13:26 Assessment and Plan Patient Active problem list reviewed?: Yes (1) Bilateral lung cancer Problem details: (RUL lobectomy 08/2019 & LITA wedge 01/2021) Status: Chronic Assessment and plan: 1. This is a pleasant 60-year-old woman with bilateral lung adenocarcinoma. She was diagnosed with right upper lobe lung adenocarcinoma and underwent right upper lobectomy/mediastinal lymphadenectomy on 08/03/2019 at [facility]. Pathology revealed invasive adenocarcinoma, tumor size 1.3 x 0.9 x 0.5 cm, moderately differentiated, tumor invades visceral pleura, no satellite nodules. Vascular invasion present, margins negative. Pathological TNM stage PT2a, pN0, MX. On 01/21/2021 patient underwent left upper lobe wedge resection and lymph node biopsies. Pathology revealed adenocarcinoma tumor size 1.8 x 1.8 x 1.1 cm. Single focus, G2 moderately differentiated, visceral pleural invasion identified, lymphovascular invasion not identified. Margins negative. Two lymph nodes were examined, negative for carcinoma. Pathological TNM stage pT2a pN0. KRAS mutation Exon 2 ([id number]) positive, BRAF negative, PDL1 1%. EGFR and alk mutations were not tested as they are mutually exclusive if KRAS is present. ( it was sent to [facility] from [facility]). Although KRAS mutation is positive, Sotorasib which is KRAS inhibitor is only approved in the metastatic setting. CEA level mildly elevated which could be related to her smoking. She was strongly advised to stop smoking. Surveillance imaging with CT chest/abdomen and pelvis has been ordered. Follow-up in 3 months. - Time Spent With Patient Time Spent with Patient (in minutes): 15
[2021-07-24 13:42] LABS: Hematocrit 39.2 % (37.0-47.0); Mean Corpuscular HGB Conc 33.2 g/dl (31.0-35.0); Mean Corpuscular Hemoglobin 29.4 pg (27.0-33.0); Mean Corpuscular Volume 88.7 fL (80.0-98.0); Mean Platelet Volume 10.2 fL (9.4-12.3); Platelet Count 226 X10*3/uL (160-400); Red Blood Count 4.42 X10*6/uL (4.20-5.50); Red Cell Distribution Width 14.4 % (11.0-16.0); White Blood Count 8.6 X10*3/uL (4.8-10.8)
[2021-07-24 13:59] LABS: Alanine Aminotransferase 12 U/L (0-31); Albumin Level 4.1 g/dL (3.5-5.0); Alkaline Phosphatase 74 U/L (39-117); Anion Gap 14 (12-20); Aspartate Amino Transferase 16 U/L (5-31); Bilirubin Total 0.6 mg/dL (0.0-1.0); Blood Urea Nitrogen 16 mg/dL (9-16); Calcium 9.3 mg/dL (8.4-10.2); Carbon Dioxide 28 mmol/L (22-29); Chloride 100 mmol/L (96-108); Creatinine Clr Calc Pharmacy 82.9; Estimated Glomerular Filt Rate > 60; Glucose Random 142 mg/dL (60-115); Potassium 3.3 mmol/L (3.3-5.1); Sodium 139 mmol/L (135-145); Total Protein 7.4 g/dL (6.5-8.0)
--- NOTE | 2021-07-24 15:59 | MHC.HEMONCSW ---
PT IS HERE FOR FOLLOW UP. DIAGNOSIS IS BILATERAL LUNG CARCINOMA. S/P WEDGE AND RESECTIONS. REPORTS COPING FAIRLY WELL. HEALTH CARE PROXY COMPLETED, NAMED HER DAUGHTER RAJ. A/OX3, INDEPENDENT WITH ADLS.RESIDES WITH HER SIGNIFICANT OTHER AND IS COLLECTING DISABILITY. SHE IS AWARE OF AREA RESOURCES BUT FEELS SHE DOES NOT NEED HELP AT THIS TIME. H/O; DEPRESSION MILD AND IV HEROIN ABUSE, QUITTING 8 YEARS AGO. REPORTS A GOOD SUPPORT SYSTEM IS IN PLACE. INFORMATIONAL, EDUCATIONAL AND SUPPORTIVE COUNSELING PROVIDED. SHE WILL HAVE IMAGING AND BE MONITORED. SHE WAS TOLD OF MY AVAILABILITY.
[2021-09-30 10:34] VITALS: BP 127/88; PULSE 62; RESP 16; TEMP 35.8; O2SAT 92; BMI 34.4
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
--- NOTE | 2021-09-30 11:20 | MHC.HEMONCMA ---
patient here today for 3 month f/u bilateral lung aidenocarcinoma, VSS, Labs, Anitbiotics sent to pharmacy, 1 month f/u.
[2021-09-30 11:23] LABS: Hematocrit 41.5 % (37.0-47.0); Hemoglobin 14.1 g/dl (12.0-16.0); Mean Corpuscular Hemoglobin 29.7 pg (27.0-33.0); Mean Corpuscular Volume 87.6 fL (80.0-98.0); Mean Platelet Volume 9.9 fL (9.4-12.3); Platelet Count 301 X10*3/uL (160-400); Red Blood Count 4.74 X10*6/uL (4.20-5.50); Red Cell Distribution Width 13.1 % (11.0-16.0); White Blood Count 11.9 X10*3/uL (4.8-10.8)
[2021-09-30 11:43] LABS: Anion Gap 13 (12-20); Blood Urea Nitrogen 16 mg/dL (9-16); Calcium 8.8 mg/dL (8.4-10.2); Carbon Dioxide 31 mmol/L (22-29); Chloride 96 mmol/L (96-108); Creatinine Clr Calc Pharmacy 67.6; Estimated Glomerular Filt Rate 53; Glucose Fasting 120 mg/dL (60-99); Potassium 3.4 mmol/L (3.3-5.1); Sodium 137 mmol/L (135-145)
--- NOTE | 2021-09-30 12:04 | HE.ONCSEC ---
I REQUESTED IMAGING INSURANCE REFERRAL FROM [facility] , AWAITING FAX BACK FROM THEM WITH THE REFFERAL # .
--- NOTE | 2021-10-02 12:12 | HE.ONCSEC ---
I RECEIVED A FAX BACK OF THE IMAGING INSURANCE REFERRAL# .
--- NOTE | 2021-10-02 12:12 | HO.HEMONCPA ---
I HAVE INSURANCE IMAGING REFERRAL FOR [facility] , I FAXED OVER CLINICAL INFORMATION TO [facility] . AWAITING APPT DATE & TIME .
--- NOTE | 2021-10-08 16:14 | HO.HEMONCPA ---
PATIENT IS SCHEDULED FOR PET CT ON 10/14/21 AT 10:15AM
--- NOTE | 2021-10-17 12:00 | MHC.HEMONC ---
Faxed request to [facility] for slides to be sent to [facility] [place] per Dr Samuels. 08/03/19 right upper lobe lung and 01/21/21 left upper lobe lung.
--- NOTE | 2021-10-17 15:07 | HO.HEMONCPA ---
Addendum entered by Sandra Whitlock 10/20/21 14:53: NO PA REQUIRED FOR CARBOPLATIN, & PEMETREXED PER [facility]UG LIST ON 10/17/21. PA FOR EMEND NOT REQUIRED. DOCUEMNT SCANNED IN THE CHART. Original Note: NO PA REQUIRED FOR CARBOPLATIN, & PEMETREXED PER [facility]UG LIST ON 10/17/21. PA FOR EMEND REQUESTED.
[2021-10-17 15:43] VITALS: BP 155/92; PULSE 77; RESP 16; TEMP 36.6; O2SAT 91; BMI 34.5
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
[2021-10-17] MEDS: Cyanocobalamin (Vitamin B-12) 1,000 MCG/ML VIAL 1000 MCG IM (16:16)
--- NOTE | 2021-10-17 16:20 | MHC.HEMONC ---
Nurse admin B12 injection, as requested by Dr. Samuels, 1,000 mcg IM to pt's L deltoid, which she tolerated very well.
--- NOTE | 2021-10-17 16:37 | MHC.HEMONCMA ---
patient seen today to go over PETSCAN ordered results, VSS, ordered Chemo, mri of brain w/wo con. follow up as instructed for chemo
[2021-10-17 16:50] LABS: Hematocrit 42.5 % (37.0-47.0); Hemoglobin 14.4 g/dl (12.0-16.0); Mean Corpuscular HGB Conc 33.9 g/dl (31.0-35.0); Mean Corpuscular Hemoglobin 29.4 pg (27.0-33.0); Mean Corpuscular Volume 86.9 fL (80.0-98.0); Mean Platelet Volume 9.1 fL (9.4-12.3); Platelet Count 320 X10*3/uL (160-400); Red Blood Count 4.89 X10*6/uL (4.20-5.50); Red Cell Distribution Width 13.2 % (11.0-16.0); White Blood Count 13.3 X10*3/uL (4.8-10.8)
--- NOTE | 2021-10-17 16:57 | MHC.HEMONC ---
Pt here with her brother and daughter. She was seen by Dr Samuels following PET and results were reviewed. While awaiting path slides from [facility], Dr Samuels offering chemo with Pemetrexed and Carboplatin. I had an opportunity to review plan with pt and her family including common side effects of drugs, need for b12 and folic acid and meds that will be called in to local Pharmacy. Pt will start chemo on Wednesday. Labs drawn today and b12 given by Jani. Pt signed consent.
[2021-10-17 17:03] LABS: Alanine Aminotransferase 12 U/L (0-31); Albumin Level 3.6 g/dL (3.5-5.0); Alkaline Phosphatase 65 U/L (39-117); Anion Gap 16 (12-20); Aspartate Amino Transferase 14 U/L (5-31); Bilirubin Total 0.5 mg/dL (0.0-1.0); Blood Urea Nitrogen 13 mg/dL (9-16); Calcium 9.2 mg/dL (8.4-10.2); Carbon Dioxide 27 mmol/L (22-29); Chloride 98 mmol/L (96-108); Creatinine Clr Calc Pharmacy 75.5; Estimated Glomerular Filt Rate 60; Glucose Random 139 mg/dL (60-115); Potassium 3.7 mmol/L (3.3-5.1); Sodium 137 mmol/L (135-145); Total Protein 7.1 g/dL (6.5-8.0)
[2021-10-17 17:50] LABS: Folate 6.7 ng/mL (> or = 4.0); Vitamin B12 > 2000 pg/mL (200-900)
--- NOTE | 2021-10-20 08:50 | MHC.HEMONC ---
Chemo to be delayed. Pt order for bronch with bx faxed to Pulmonary and sent via [employer]. Pt was advised by Dr Samuels.
--- NOTE | 2021-10-20 10:47 | MHC.HEMONCMA ---
enter MRI head/brain wo/w con in OF.
--- NOTE | 2021-10-24 10:10 | MHC.HEMONC ---
Pt told to stop ASPIRIN as lung bx being planned.
--- NOTE | 2021-10-24 10:51 | HO.HEMONCSCH ---
CT BIOPSY OF RT LUNG IN PENDING STATUS IN RADIOLOGY. RADIOLOGY WILL CALL DEPT W/APPT DATE & TIME
--- NOTE | 2021-10-24 16:46 | MHC.HEMONC ---
CT bx of lung ordered by Dr Samuels. Pt was called and informed by me of this order and pt need to stop Aspirin. She understands. Sandra entered order and it remains in pending.
--- NOTE | 2021-10-24 16:48 | MHC.HEMONC ---
Per Zenaida in Pathology, Dr Rivera requesting blocks from bx last year (done at [facility]) for testing so that treatment can ensue.
--- NOTE | 2021-11-06 11:14 | HO.HEMONCPA ---
Addendum entered by Sandra Whitlock 11/06/21 15:18: PA for Pembrolizumab APPROVED. AUTH/PA#[id number]. DOS-11/06/21 to 05/09/2022. DOCUMENT SCANNED IN THE CHART. Original Note: PA for Pembrolizumab requested. Awaiting decision
[2021-11-07] MEDS: Cyanocobalamin (Vitamin B-12) 1,000 MCG/ML VIAL 1000 MCG IM (13:05)
[2021-11-07 13:35] VITALS: BP 139/88; PULSE 84; RESP 18; TEMP 36.2; O2SAT 91
--- NOTE | 2021-11-07 13:37 | MHC.HEMONC ---
Vitamin B-12 injection given in left arm-tolerated well. Pt to return next week for chemotherapy. Calendar given
--- NOTE | 2021-11-12 11:38 | PM.HEMONCPN ---
Medical Summary - Medical Summary Date of Service: 11/12/21 Chief complaint: Follow-up Medical Summary: Diagnosis: Right upper lobe Wedge resection in July 2019, adenocarcinoma Left lower lobe wedge resection in January 2021 adenocarcinoma She was diagnosed with right upper lobe lung adenocarcinoma and underwent right upper lobectomy/mediastinal lymphadenectomy on 08/03/2019 at [facility]. Pathology revealed invasive adenocarcinoma, tumor size 1.3 x 0.9 x 0.5 cm, moderately differentiated, tumor invades visceral pleura, no satellite nodules. Vascular invasion present, margins negative. Pathological TNM stage PT2a, pN0, MX. Surveillance CT chest with contrast performed 12/26/2020 showed stable postsurgical changes, 2 new/increasing suspicious areas in the right lower lobe nodules. Interval increase in suspicious appearing cavitary left upper lobe nodule. Numerous bilateral small ground-glass nodules. On 01/21/2021 patient underwent left upper lobe wedge resection and lymph node biopsies. Pathology revealed adenocarcinoma tumor size 1.8 x 1.8 x 1.1 cm. Single focus, G2 moderately differentiated, visceral pleural invasion identified, lymphovascular invasion not identified. Margins negative. Two lymph nodes were examined, negative for carcinoma. Pathological TNM stage pT2a pN0. Molecular studies to be obtained from [facility], this was ordered last week. Stage IB cancer without any high-risk features such as lymphovascular invasion. Surveillance imaging with CT chest/abdomen and pelvis performed in September 2021 showed new right lower lobe mass measuring 1.7 x 1.3 cm suspicious for new/metastatic lesion. Sub pleural ground-glass attenuation measuring 1.4 x 1.1 cm similar to previous exam. Second lesion in the right lower lobe posterior basal segment measuring 1.6 x 1.4 cm which is also suspicious. Subcarinal lymph nodes largest measuring 1.3 x 2.1 cm and large pretracheal lymph node measuring 1.5 x 1.5 cm all suspicious for disease recurrence.. CT abdomen showed stable 1.4 cm right adrenal lesion. Extensive fine interstitial markings throughout right lower lobe likely post radiation changes. PET-CT was recommended for further evaluation. Remote history of radiation for her right breast for cancer treatment. PET-CT performed 10/14/21 showed extensive FDG avid consolidation in the right middle lobe, worse than CT scan in September. Inflammatory versus infectious etiology along with malignancy. New FDG avid mediastinal lymphadenopathy suspicious for recurrence or metastatic malignancy. FDG avid vertebral lesions in C7 and T7 suspicious for metastasis. Stable right adrenal nodule showed no FDG activity. Patient was treated with azithromycin 500 mg daily for 7 days. Interval History Interval history: Patient is here in follow-up. She is here to discuss results of recent imaging study, biopsy results and further management. She has no acute complaints today. She has chronic cough and shortness of breath with exertion. She denies any headache or dizziness. Review of Systems - Constitutional Reports as per HPI, Reports no additional constitutional complaints, Reports fatigue, Reports malaise, Denies poor appetite, Denies weight loss - Cardiovascular Reports no additional cardiovascular complaints, Denies chest pain - Respiratory Denies chest congestion, Denies hemoptysis - Neurologic Denies weakness [facility] Medical History: Medical History (Last Reviewed 11/12/21 @ 11:42 by MOMO Pina) Bilateral lung cancer Cancer of upper lobe of left lung Onset Date: ~2020 Cancer of upper lobe of right lung Onset Date: ~2019 COPD (chronic obstructive pulmonary disease) Depression GERD (gastroesophageal reflux disease) History of breast cancer Onset Date: ~2006 History of hepatitis C HTN (hypertension) Internal and external bleeding hemorrhoids Obesity Pulmonary nodules Smoker Tubular adenoma of colon Family History: Family History (Last Reviewed 11/12/21 @ 11:42 by MOMO Pina) Mother History of lung cancer Brother History of lung cancer Maternal Grandmother Breast cancer in female Maternal Aunt Breast cancer in female Daughter Thyroid cancer Surgical History: Surgical History (Last Reviewed 11/12/21 @ 11:42 by MOMO Pina) History of anterior colporrhaphy Onset Date: ~2016 History of back surgery Onset Date: ~2011 History of colonoscopy Onset Date: ~2014 History of hemorrhoidectomy Onset Date: ~2019 History of lobectomy of lung Onset Date: ~2019 History of lumpectomy of right breast Onset Date: ~2006 History of lung surgery Onset Date: ~2020 History of tubal ligation Social History: Social History (Last Updated 11/12/21 @ 11:44 by MOMO Pina) Living Situation History: Household Members: Significant Other Household Members: None Housing: Apartment Are you a primary post acute care nurse practitioner to a significant other at home: No Do you presently have visiting nurse or other home services: No Alcohol History Details: 1. How often do you have a drink containing alcohol?: b. Monthly or less 2. How many drinks containing alcohol do you have on a typical day when you are drinking?: a. 1 or 2 Tobacco History: Patient Tobacco Use Status: Current someday Tobacco Tobacco use type: Cigarette Years Smoked: 46 Smoked in Last 30 Days: Yes Substance Use History: Use of substances other than those prescribed or required for medical reasons: Yes Substance Use Type: Marijuana Substance Use Type Other:: 5 mg edibles Last Used Substance Other:: IV heroin 8 years ago Domestic Abuse History: Have you been hit, kicked, punched, or otherwise hurt by someone within the past year? If so, by whom?: No Do you feel safe in your current relationship?: Yes Homicidal Assessment: Do you have thoughts of harming others: None Do you have a plan to hurt others: No Plan Do you have the means to hurt others: No Nutrition Assessment: Recently lost weight without trying: No Occupation Assessmet: service: No Current occupational status: disabled Current occupational exposures/hazards: No Oncology Screenings - ECOG Performance Status ECOG Performance Status: 1 Home Medications and Allergies Home Medications Medication Instructions Recorded Confirmed Type aspirin 81 mg tablet,delayed 81 mg PO DAILY 02/12/20 11/12/21 History release (Brenda Low Dose Aspirin) buprenorphine 12 mg-naloxone 3 mg 1 film buccal Q24H 02/12/20 11/12/21 History sublingual film (Suboxone) cholecalciferol (vitamin D3) 50 50 mcg PO DAILY 02/12/20 11/12/21 History mcg (2,000 unit) capsule (Vitamin D3) diltiazem HCl 180 mg 180 mg PO DAILY 02/12/20 11/12/21 History capsule,extended release 24 hr, controlled metoprolol tartrate 50 1 tab PO DAILY 02/12/20 11/12/21 History mg-hydrochlorothiazide 25 mg tablet milnacipran 50 mg tablet (Savella) 50 mg PO BID 02/12/20 11/12/21 History omeprazole 20 mg capsule,delayed 20 mg PO DAILY 02/12/20 11/12/21 History release paroxetine HCl 30 mg tablet 60 mg PO DAILY 02/12/20 11/12/21 History simvastatin 20 mg tablet 20 mg PO BEDTIME 02/12/20 11/12/21 History nicotine 21 mg/24 hr daily 1 patch topical DAILY 02/20/21 11/12/21 History transdermal patch Allergies Allergy/AdvReac Type Severity Reaction Status Date / Time lisinopril [LISINOPRIL] Allergy Severe SWELLING- Verified 10/27/21 13:49 ANGIOEDEMA codeine [CODEINE] Allergy Intermediate VOMITING/HIVES, Verified 10/27/21 13:49 vomiting, hives Exam Vital signs: Vital Signs Temp 97.1 F 11/07/21 13:35 Pulse 84 11/07/21 13:35 Resp 18 11/07/21 13:35 BP 139/88 11/07/21 13:35 Pulse Ox 91 L 11/07/21 13:35 O2 Del Method 11/07/21 13:35 Weight 100 kg BMI result Body Mass Index 34.5 - Constitutional Present: no acute distress - Routine HEENT Exam Head: Present: normal inspection - Routine Neck Exam Absent: lymphadenopathy - Routine Respiratory Exam Present: CTAB. Absent: respiratory distress, rhonchi Comments: Decreased breath sounds right lower lung greer - Routine Cardiovascular Exam Cardiovascular: Present: RRR, S1, S2 - Routine Abdominal Exam Present: distended, soft. Absent: organomegaly - Routine Extremities Exam Present: pulses intact - Routine Skin Exam Present: intact. Absent: cyanosis Data - Labs CBC & Chem 7: 10/17/21 16:37 10/17/21 16:37 Assessment and Plan Patient Active problem list reviewed?: Yes (1) Bilateral lung cancer Problem details: (RUL lobectomy 07/2019 & LITA wedge 01/2021) Status: Chronic Assessment and plan: 1. This is a pleasant 61-year-old woman with bilateral lung adenocarcinoma. She has been diagnosed with recurrent metastatic lung cancer in the right with bone and brain metastasis in september 2021. She had right upper lobectomy/mediastinal lymphadenectomy on 08/03/2019 at [facility]. Pathology revealed invasive adenocarcinoma, tumor size 1.3 x 0.9 x 0.5 cm, moderately differentiated, tumor invades visceral pleura, no satellite nodules. Vascular invasion present, margins negative. Pathological TNM stage PT2a, pN0, MX. NGS panel negative for for alk rearrangement, ROS1 rearrangement, MET amplification, RET rearrangement and PTEN deletions. On 01/21/2021 patient underwent left upper lobe wedge resection and lymph node biopsies. Pathology revealed adenocarcinoma tumor size 1.8 x 1.8 x 1.1 cm. Single focus, G2 moderately differentiated, visceral pleural invasion identified, lymphovascular invasion not identified. Margins negative. Two lymph nodes were examined, negative for carcinoma. Pathological TNM stage pT2a pN0. KRAS mutation Exon 2 ([id number]) positive, BRAF negative, PDL1 1%. EGFR and alk mutations were not tested as they are mutually exclusive if KRAS is present. ( it was sent to [facility] from [facility]). on 11/03/[address]-guided biopsy of right upper lobe mass, pathology -adenocarcinoma, moderately to poorly differentiated consistent with lung primary. NGS studies are still pending. PDL expression 1%, HER2 equivocal score 2+. EGFR and KRAS mutation status pending. Brain MRI performed 10/29/2021 showed enhancing metastasis in the left cerebellum measuring 3 mm. A 2 mm indeterminate enhancement in the left parietal lobe could be developmental venous anomaly. PET-CT showed FDG avid vertebral lesions in C7 and T7. Patient is being started on combination therapy with pembrolizumab, carboplatin and pemetrexed. She has been started on vitamin B12 and folic acid supplementation. All of the above was discussed with patient. She is not very symptomatic from bone metastasis and asymptomatic from brain metastasis. She will be started on bone strengthening therapy with denosumab. She was given chemotherapy teach appointment, she is aware of possible side effects such as cytopenias, organ damage risk of infection and GI side effects. Follow-up in 2 weeks. - Time Spent With Patient Time Spent with Patient (in minutes): 30
[2021-11-12 11:39] VITALS: BP 130/94; PULSE 75; RESP 16; TEMP 35.9; O2SAT 92; BMI 33.3
--- NOTE | 2021-11-12 13:25 | MHC.HEMONCMA ---
pt seen today for 2 week onc f/u. ,labs,vss with 2 month f/u booked.
[2021-11-13] MEDS: Fosaprepitant Dimeglumine 150 MG in 0.9 % Sodium Chloride 145 ML 300 MG IV (13:40)
[2021-11-13 13:44] VITALS: BP 127/79; PULSE 78; RESP 17; TEMP 35.9; O2SAT 93; BMI 33.7
[2021-11-13] MEDS: Famotidine/PF 20 MG/2 ML VIAL IVPUSH (14:18)
[2021-11-13] MEDS: dexAMETHasone sod phosphate/NS 12 MG/50 ML PIGGYBACK 200 MG IV (14:19)
[2021-11-13] MEDS: Acetaminophen 325 MG TABLET 650 MG PO (14:19)
[2021-11-13] MEDS: diphenhydrAMINE HCL 25 MG TABLET PO (14:25)
[2021-11-13] MEDS: SODIUM CHLORIDE 0.9% IV (15:58)
[2021-11-13] MEDS: CARBOPLATIN IV (15:58)
--- NOTE | 2021-11-13 16:14 | MHC.HEMONC ---
Pt here for C1D1 Carbo/Pemetrexed/Pembrolizumab. Labs drawn yesterday reviewed-okay to receive treatment today. Pt states she has fatigue and constipation. B-12 injection given last week. Pt taking folic acid as ordered. #22 angio inserted in left hand with blood return noted. Pre medicated with tylenol, zofran, benadryl, decadron, pepcid, emend. Pembrolizumab infused with 5 minutes left-pt complained of feeling hot and sweaty. Keytruda stopped, vital signs 95.7-62-19 93% RA, 107/74, Cool cloth to head, Dr Samuels notified and in room to see pt. Okay to restart Keytruda per Dr Samuels. Pharmacy notified. Tolerated remainder of Keytruda without further incident. Tolerated Carbo and Pemetrexed without difficulty. Peripheral IV removed-no edema or redness at site. Discharge packet given with next appointment scheduled
--- NOTE | 2021-11-24 16:50 | MHC.HEMONCSW ---
EXPERIENCING FINANCIAL HARDSHIP AND PER REQUEST A LETTER IS MAILED TO HER FOR HER LOCAL VOSS.
--- NOTE | 2021-11-26 11:55 | HO.HEMONCPA ---
MATTI MCELROY (XGEVA) DESUNOMAB (J0897) INITIATED . I SENT IN CLINICAL INFORMATION TO [facility] , AWAITING DECISION .
--- NOTE | 2021-11-26 15:26 | HO.HEMONCPA ---
Addendum entered by Iwona Santos MA 12/02/21 15:20: PA FOR (XGEVA) DESUNOMAB (J0897) APPROVED . PA EXPIRES ON 11/26/22 to 12/27/21 TRACKING#[id number] AUTH#[id number] Addendum entered by Iwona Snatos MA 12/02/21 15:20: PA FOR (XGEVA) DESUNOMAB (J0897) APPROVED . PA EXPIRES ON 11/26/22 to 12/27/21 Original Note: PA FOR (XGEVA) DESUNOMAB (J0897) APPROVED . PA EXPIRES ON 11/26/22
--- NOTE | 2021-12-02 15:24 | HO.HEMONCPA ---
Addendum entered by Sandra Whitlock 01/07/22 10:28: PA FOR (XGEVA) DESUNOMAB (J0897) APPROVED . PA EXPIRES ON 11/26/22 TRACKING#[id number] AUTH#[id number] Original Note: MATTI FOR (XGEVA) DESUNOMAB (J0897) APPROVED . PA EXPIRES ON 11/26/22 to 12/27/21 TRACKING#[id number] AUTH#[id number]
--- NOTE | 2021-12-03 13:36 | P.PNHO-ONC_ITS ---
Medical Summary - Medical Summary Date of Service: 12/03/21 Chief complaint: Follow-up Medical Summary: Diagnosis: Right upper lobe Wedge resection in July 2019, adenocarcinoma Left lower lobe wedge resection in January 2021 adenocarcinoma She was diagnosed with right upper lobe lung adenocarcinoma and underwent right upper lobectomy/mediastinal lymphadenectomy on 08/03/2019 at [facility]. Pathology revealed invasive adenocarcinoma, tumor size 1.3 x 0.9 x 0.5 cm, moderately differentiated, tumor invades visceral pleura, no satellite nodules. Vascular invasion present, margins negative. Pathological TNM stage PT2a, pN0, MX. Surveillance CT chest with contrast performed 12/26/2020 showed stable postsurgical changes, 2 new/increasing suspicious areas in the right lower lobe nodules. Interval increase in suspicious appearing cavitary left upper lobe nodule. Numerous bilateral small ground-glass nodules. On 01/21/2021 patient underwent left upper lobe wedge resection and lymph node biopsies. Pathology revealed adenocarcinoma tumor size 1.8 x 1.8 x 1.1 cm. Single focus, G2 moderately differentiated, visceral pleural invasion identified, lymphovascular invasion not identified. Margins negative. Two lymph nodes were examined, negative for carcinoma. Pathological TNM stage pT2a pN0. Molecular studies to be obtained from [facility], this was ordered last week. Stage IB cancer without any high-risk features such as lymphovascular invasion. Surveillance imaging with CT chest/abdomen and pelvis performed in September 2021 sh owed new right lower lobe mass measuring 1.7 x 1.3 cm suspicious for new/metastatic lesion. Sub pleural ground-glass attenuation measuring 1.4 x 1.1 cm similar to previous exam. Second lesion in the right lower lobe posterior basal segment measuring 1.6 x 1.4 cm which is also suspicious. Subcarinal lymph nodes largest measuring 1.3 x 2.1 cm and large pretracheal lymph node measuring 1.5 x 1.5 cm all suspicious for disease recurrence.. CT abdomen showed stable 1.4 cm right adrenal lesion. Extensive fine interstitial markings throughout right lower lobe likely post radiation changes. PET-CT was recommended for further evaluation. Remote history of radiation for her right breast for cancer treatment. PET-CT performed 10/14/21 showed extensive FDG avid consolidation in the right middle lobe, worse than CT scan in September. Inflammatory versus infectious etiology along with malignancy. New FDG avid mediastinal lymphadenopathy suspicious for recurrence or metastatic malignancy. FDG avid vertebral lesions in C7 and T7 suspicious for metastasis. Stable right adrenal nodule showed no FDG activity. Patient was treated with azithromycin 500 mg daily for 7 days. Interval History Interval history: Patient is here in follow-up. She tolerated 1st cycle of chemotherapy quite well. She had mild nausea and soft stools. She has no acute complaints today. She has chronic cough and shortness of breath with exertion. She denies any headache or dizziness. She does report hip and low back pain radiating down her right leg. Review of Systems - Constitutional Reports as per HPI, Reports no additional constitutional complaints - Cardiovascular Reports no additional cardiovascular complaints - Respiratory Reports no additional respiratory complaints - Neurologic Denies weakness PMFSH Medical History: Medical History (Last Reviewed 12/03/21 @ 13:40 by Marta Julian) Bilateral lung cancer Cancer of upper lobe of left lung Onset Date: ~2020 Cancer of upper lobe of right lung Onset Date: ~2019 COPD (chronic obstructive pulmonary disease) Depression GERD (gastroesophageal reflux disease) History of breast cancer Onset Date: ~2006 History of hepatitis C HTN (hypertension) Internal and external bleeding hemorrhoids Obesity Pulmonary nodules Smoker Tubular adenoma of colon Family History: Family History (Last Reviewed 12/03/21 @ 13:40 by Marta Julian) Mother History of lung cancer Brother History of lung cancer Maternal Grandmother Breast cancer in female Maternal Aunt Breast cancer in female Daughter Thyroid cancer Surgical History: Surgical History (Last Reviewed 12/03/21 @ 13:40 by Marta Julian) History of anterior colporrhaphy Onset Date: ~2016 History of back surgery Onset Date: ~2011 History of colonoscopy Onset Date: ~2014 History of hemorrhoidectomy Onset Date: ~2019 History of lobectomy of lung Onset Date: ~2019 History of lumpectomy of right breast Onset Date: ~2006 History of lung surgery Onset Date: ~2020 History of tubal ligation Social History: Social History (Last Reviewed 12/03/21 @ 13:40 by Marta Julian) Living Situation History: Household Members: Significant Other Household Members: None Housing: Apartment Are you a primary behavioral health care manager to a significant other at home: No Do you presently have visiting nurse or other home services: No Alcohol History Details: 1. How often do you have a drink containing alcohol?: b. Monthly or less 2. How many drinks containing alcohol do you have on a typical day when you are drinking?: a. 1 or 2 Tobacco History: Patient Tobacco Use Status: Current someday Tobacco Tobacco use type: Cigarette Years Smoked: 46 Smoked in Last 30 Days: Yes Substance Use History: Use of substances other than those prescribed or required for medical reasons : Yes Substance Use Type: Marijuana Substance Use Type Other:: 5 mg edibles Last Used Substance Other:: IV heroin 8 years ago Domestic Abuse History: Have you been hit, kicked, punched, or otherwise hurt by someone within the past year? If so, by whom?: No Do you feel safe in your current relationship?: Yes Homicidal Assessment: Do you have thoughts of harming others: None Do you have a plan to hurt others: No Plan Do you have the means to hurt others: No Nutrition Assessment: Recently lost weight without trying: No Occupation Assessmet: service: No Current occupational status: disabled Current occupational exposures/hazards: No Oncology Screenings - ECOG Performance Status ECOG Performance Status: 1 Home Medications and Allergies Home Medications Medication Instructions Recorded Confirmed Type aspirin 81 mg tablet,delayed 81 mg PO DAILY 02/12/20 12/03/21 History release (Brenda Low Dose Aspirin) buprenorphine 12 mg-naloxone 3 mg 1 film buccal Q24H 02/12/20 12/03/21 History sublingual film (Suboxone) cholecalciferol (vitamin D3) 50 50 mcg PO DAILY 02/12/20 12/03/21 History mcg (2,000 unit) capsule (Vitamin D3) diltiazem HCl 180 mg 180 mg PO DAILY 02/12/20 12/03/21 History capsule,extended release 24 hr, controlled metoprolol tartrate 50 1 tab PO DAILY 02/12/20 12/03/21 History mg-hydrochlorothiazide 25 mg tablet milnacipran 50 mg tablet (Savella) 50 mg PO BID 02/12/20 12/03/21 History omeprazole 20 mg capsule,delayed 20 mg PO DAILY 02/12/20 12/03/21 History release paroxetine HCl 30 mg tablet 60 mg PO DAILY 02/12/20 12/03/21 History simvastatin 20 mg tablet 20 mg PO BEDTIME 02/12/20 12/03/21 History nicotine 21 mg/24 hr daily 1 patch topical DAILY 02/20/21 12/03/21 History transdermal patch Allergies Allergy/AdvReac Type Severity Reaction Status Date / Time lisinopril [LISINOPRIL] Allergy Severe SWELLING- Verified 11/13/21 14:25 ANGIOEDEMA codeine [CODEINE] Allergy Intermediate VOMITING/HIVES, Verified 11/13/21 14:25 vomiting, hives Exam Vital signs: Vital Signs Temp 96.7 F L 11/13/21 13:44 Pulse 78 11/13/21 13:44 Resp 17 11/13/21 13:44 BP 127/79 11/13/21 13:44 Pulse Ox 93 11/13/21 13:44 O2 Del Method 11/13/21 13:44 Weight 97.6 kg BMI result Body Mass Index 33.7 - Constitutional Present: no acute distress - Routine HEENT Exam Head: Present: normal inspection - Routine Neck Exam Absent: lymphadenopathy - Routine Respiratory Exam Present: CTAB. Absent: respiratory distress, rhonchi - Routine Cardiovascular Exam Cardiovascular: Present: RRR, S1, S2 - Routine Abdominal Exam Present: distended, soft. Absent: organomegaly - Routine Extremities Exam Present: pulses intact - Routine Skin Exam Present: intact. Absent: cyanosis Data - Labs CBC & Chem 7: 12/03/21 14:03 10/17/21 16:37 Assessment and Plan Patient Active problem list reviewed?: Yes (1) Bilateral lung cancer Problem details: (RUL lobectomy 07/2019 & LITA wedge 01/2021) Status: Chronic Assessment and plan: 1. This is a pleasant 61-year-old woman with bilateral lung adenocarcinoma. She has been diagnosed with recurrent metastatic lung cancer in the right with bone and brain metastasis in september 2021. She had right upper lobectomy/mediastinal lymphadenectomy on 08/03/2019 at [facility]. Pathology revealed invasive adenocarcinoma, tumor size 1.3 x 0.9 x 0.5 cm, moderately differentiated, tumor invades visceral pleura, no satellite nodules. Vascular invasion present, margins negative. Pathological TNM stage PT2a, pN0, MX. NGS panel negative for for alk rearrangement, ROS1 rearrangement, MET amplification, RET rearrangement and PTEN deletions, KRAS G12C mutation present, MSI stable, PD L1-TPS score 1, HER2 with breast scoring equivocal, stone TRK equivocal. RBM10 and TP53 alterations detected. On 01/21/2021 patient underwent left upper lobe wedge resection and lymph node biopsies. Pathology revealed adenocarcinoma tumor size 1.8 x 1.8 x 1.1 cm. Single focus, G2 moderately differentiated, visceral pleural invasion identified, lymphovascular invasion not identified. Margins negative. Two lymph nodes were examined, negative for carcinoma. Pathological TNM stage pT2a pN0. KRAS mutation Exon 2 ([id number]) positive, BRAF negative, PDL1 1%. EGFR and alk mutations were not tested as they are mutually exclusive if KRAS is present. ( it was sent to [facility] from [facility]). on 11/03/[address]-guided biopsy of right upper lobe mass, pathology -adenocarcinoma, moderately to poorly differentiated consistent with lung primary. PDL expression 1%, HER2 equivocal score 2+. Brain MRI performed 10/29/2021 showed enhancing metastasis in the left cerebellum measuring 3 mm. A 2 mm indeterminate enhancement in the left parietal lobe could be developmental venous anomaly. PET-CT showed FDG avid vertebral lesions in C7 and T7. Patient started on combination therapy with pembrolizumab, carboplatin and pemetrexed on 11/13/2021. She tolerated it well. She is not very symptomatic from bone metastasis and asymptomatic from brain metastasis. She will be started on bone strengthening therapy with denosumab. PA awaited. Repeat brain MRI in January 2022. Proceed with cycle 2 tomorrow. Follow-up in 2 weeks. - Time Spent With Patient Time Spent with Patient (in minutes): 20
[2021-12-03 13:38] VITALS: BP 130/83; PULSE 73; RESP 16; TEMP 36.1; O2SAT 91; BMI 32.9
[2021-12-03 14:08] LABS: Basophils Absolute Auto 0.1 X10*3/uL (0.0-0.2); Basophils Percent Auto 0.6 % (0-2); Eosinophils Absolute Auto 0.2 X10*3/uL (0.0-0.4); Eosinophils Percent Auto 1.6 % (0-4); Hematocrit 34.6 % (37.0-47.0); Hemoglobin 11.8 g/dl (12.0-16.0); Imm Gran Abs Auto 0.21 X10*3/uL (0.00-0.03); Imm Gran Pct Auto 2.2 % (0.0-0.4); Lymphocytes Absolute Auto 1.3 X10*3/uL (1.2-4.9); MANUAL DIFF FLAG SCAN; Mean Corpuscular HGB Conc 34.1 g/dl (31.0-35.0); Mean Corpuscular Hemoglobin 28.7 pg (27.0-33.0); Mean Corpuscular Volume 84.2 fL (80.0-98.0); Mean Platelet Volume 8.9 fL (9.4-12.3); Monocytes Absolute Auto 1.5 X10*3/uL (0.1-1.2); Monocytes Percent Auto 15.8 % (2-11); Neutrophils Absolute Auto 6.3 x10*3/uL (2.0-8.3); Neutrophils Percent Auto 65.8 % (45-73); Platelet Count 384 X10*3/uL (160-400); Red Blood Count 4.11 X10*6/uL (4.20-5.50); Red Cell Distribution Width 13.4 % (11.0-16.0); SCAN SMEAR FLAG 1; White Blood Count 9.6 X10*3/uL (4.8-10.8)
--- NOTE | 2021-12-03 14:21 | HO.HEMONCPA ---
MATTI FOR Xgeva Injection CPT Code J0897 REQUESTED. AWAITING DECISION
[2021-12-03 14:25] LABS: Alanine Aminotransferase 18 U/L (0-31); Albumin Level 3.6 g/dL (3.5-5.0); Alkaline Phosphatase 74 U/L (39-117); Anion Gap 19 (12-20); Aspartate Amino Transferase 20 U/L (5-31); Bilirubin Total 0.3 mg/dL (0.0-1.0); Blood Urea Nitrogen 20 mg/dL (9-16); Calcium 8.9 mg/dL (8.4-10.2); Carbon Dioxide 27 mmol/L (22-29); Chloride 99 mmol/L (96-108); Creatinine Clr Calc Pharmacy 57.9; Estimated Glomerular Filt Rate 45; Glucose Random 131 mg/dL (60-115); Potassium 3.6 mmol/L (3.3-5.1); Sodium 141 mmol/L (135-145); Total Protein 6.6 g/dL (6.5-8.0)
[2021-12-03 14:34] LABS: SLIDE REVIEW VERIFIED
--- NOTE | 2021-12-03 14:38 | MHC.HEMONCMA ---
patient seen today for followup treatment, VSS, labs, followup in 3 weeks
[2021-12-04 12:55] VITALS: BP 169/83; PULSE 74; RESP 21; TEMP 35.3; O2SAT 94; BMI 32.5
[2021-12-04] MEDS: Fosaprepitant Dimeglumine 150 MG in 0.9 % Sodium Chloride 145 ML 300 MG IV (13:21)
[2021-12-04] MEDS: Acetaminophen 325 MG TABLET 650 MG PO (13:21)
[2021-12-04] MEDS: Famotidine/PF 20 MG/2 ML VIAL IVPUSH (13:22)
[2021-12-04] MEDS: diphenhydrAMINE HCL 25 MG TABLET PO (13:22)
[2021-12-04] MEDS: dexAMETHasone sod phosphate/NS 12 MG/50 ML PIGGYBACK 200 MG IV (13:22)
--- NOTE | 2021-12-04 14:44 | MHC.HEMONCSW ---
HERE FOR TREATMENT, REPORTS COPING FAIR TODAY. 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 COLLECTS SSI. DESCRIBES YEARS OF DEPRESSION BUT EVASIVE SOMEWHAT WHEN GIVING DETAILS...REFUSES COUNSELING REFERRAL AND STATES HER PCP PRESCIBES PSYCHOTROPICS THAT ARE EFFECTIVE. SHE IS AWARE OF AREA CANCER RESOURCES ETC. AGAIN, INFORMED HER OF MY ROLE AND AVAILABILITY. HEALTH CARE PROXY PREVIOUSLY COMPLETED, WHERE SHE NAMED HER DAUGHTER RAJ.
[2021-12-04] MEDS: CARBOPLATIN IV (15:45)
[2021-12-04] MEDS: SODIUM CHLORIDE 0.9% IV (15:45)
--- NOTE | 2021-12-04 16:05 | MHC.HEMONC ---
Pt here for C2D1 Pembrolizumab/Pemetrexed/Carboplatin. Labs drawn yesterday reviewed-okay to receive treatment today. Pt states she is dyspneic on exertion, states has had nausea x2. #22 angio inserted in left AC with blood return noted. Pre medicated with tylenol, benadryl, decadron, pepcid, zofran,emend. Pembrolizumab/Pemetrexed/Carboplatin given as directed-tolerated well. Peripheral IV removed-no edema or redness at site. Denosumab SC given in left arm-tolerated well (pt to receive denosumab q 28 days) Discharge packet given with next appointment scheduled. Pt instructed to take dexamethasone tomorrow and Wednesday twice each day-verbalizes understanding
--- NOTE | 2021-12-19 13:35 | MHC.HEMONC ---
Addendum entered by Galilea Flores RN 12/19/21 16:08: Patient called to report she is Covid negative. I instructed patient to continue taking Tylenol as needed and salt water rinses. Also provided mining detail draftsperson # if symptoms worsen or becomes febrile over weekend. Patient verbalizes understanding. Original Note: Pt called department stating she has had a sore throat for one week. States she has increased her fluid intake, denies fever. Pt instructed to test for Covid. States she will perform test and will call department if she is positive. Instructed to take tylenol or motrin for discomfort, warm fluids, and/or hard candy. Pt has chemotherapy scheduled for 12/25/21. Dr Hughes (covering for Dr Samuels) notified
[2021-12-25 13:15] VITALS: BP 139/83; PULSE 82; RESP 19; TEMP 36; O2SAT 96; BMI 32.3
[2021-12-25 13:15] LABS: Basophils Absolute Auto 0.1 X10*3/uL (0.0-0.2); Basophils Percent Auto 0.7 % (0-2); Eosinophils Percent Auto 0.3 % (0-4); Hemoglobin 9.8 g/dl (12.0-16.0); Imm Gran Abs Auto 0.16 X10*3/uL (0.00-0.03); Imm Gran Pct Auto 1.8 % (0.0-0.4); Lymphocytes Absolute Auto 1.5 X10*3/uL (1.2-4.9); Lymphocytes Percent Auto 17.6 % (20-40); MANUAL DIFF FLAG SCAN; Mean Corpuscular HGB Conc 33.8 g/dl (31.0-35.0); Mean Corpuscular Hemoglobin 28.8 pg (27.0-33.0); Mean Corpuscular Volume 85.3 fL (80.0-98.0); Mean Platelet Volume 9.9 fL (9.4-12.3); Monocytes Absolute Auto 1.6 X10*3/uL (0.1-1.2); Monocytes Percent Auto 17.9 % (2-11); Neutrophils Absolute Auto 5.4 x10*3/uL (2.0-8.3); Neutrophils Percent Auto 61.7 % (45-73); Platelet Count 259 X10*3/uL (160-400); Red Cell Distribution Width 15.5 % (11.0-16.0); SCAN SMEAR FLAG 1; White Blood Count 8.7 X10*3/uL (4.8-10.8)
[2021-12-25 13:33] LABS: Alanine Aminotransferase 21 U/L (0-31); Albumin Level 3.6 g/dL (3.5-5.0); Alkaline Phosphatase 89 U/L (39-117); Anion Gap 16 (12-20); Aspartate Amino Transferase 20 U/L (5-31); Bilirubin Total 0.3 mg/dL (0.0-1.0); Blood Urea Nitrogen 13 mg/dL (9-16); Calcium 8.8 mg/dL (8.4-10.2); Carbon Dioxide 30 mmol/L (22-29); Chloride 98 mmol/L (96-108); Creatinine Clr Calc Pharmacy 66.7; Estimated Glomerular Filt Rate 54; Glucose Random 158 mg/dL (60-115); Potassium 3.4 mmol/L (3.3-5.1); Sodium 141 mmol/L (135-145); Total Protein 6.8 g/dL (6.5-8.0)
[2021-12-25] MEDS: Fosaprepitant Dimeglumine 150 MG in 0.9 % Sodium Chloride 145 ML 300 MG IV (13:53)
[2021-12-25] MEDS: Famotidine/PF 20 MG/2 ML VIAL IVPUSH (14:01)
[2021-12-25] MEDS: Acetaminophen 325 MG TABLET 650 MG PO (14:01)
[2021-12-25] MEDS: dexAMETHasone sod phosphate/NS 12 MG/50 ML PIGGYBACK 200 MG IV (14:01)
[2021-12-25] MEDS: diphenhydrAMINE HCL 25 MG TABLET PO (14:02)
[2021-12-25] MEDS: Cyanocobalamin (Vitamin B-12) 1,000 MCG/ML VIAL 1000 MCG IM (14:03)
[2021-12-25 14:15] LABS: SLIDE REVIEW VERIFIED
[2021-12-25 14:34] LABS: Thyroid Stimulating Hormone 1.43 uIU/mL (0.32-4.0)
--- NOTE | 2021-12-25 15:16 | MHC.HEMONC ---
Pt here for C3D1 Pembrolizumab/Pemetrexed/Carbo. Labs drawn by dairy husbandry worker-specimen to lab. Pt states she has fatigue, states vomited once, no nausea, states arms get numb at times-states has history of numbness in arms. States has been having issues with bleeding hemorrhoids -no bleeding currently. Pt states she had a lumpectomy on right breast over [address] Hughes states it's okay to use right arm for IV and injections. #22 angio inserted in right hand-blood return noted. Lab results reviewed-okay to receive treatment today. Pre medicated with emend, zofran, decadron, tylenol, pepcid, benadryl. Pembrolizumab/Pemetrexed/Carbo given as ordered-tolerated well. B-12 injection given in right arm-tolerated well. Peripheral IV removed-no edema or redness at site. Next appointment scheduled in 21 days. Pt has follow up with Dr Samuels next week, will receive denosumab same day ( [place] ENDS 11/26/22) Discharge packet given with next appointment scheduled. Pt instructed to take decadron twice a day tomorrow and Wednesday. Pt verbalizes understanding of information given
--- NOTE | 2022-01-02 13:30 | P.PNHO-ONC_ITS ---
Medical Summary - Medical Summary Date of Service: 01/02/22 Chief complaint: Follow-up Medical Summary: Diagnosis: Right upper lobe Wedge resection in July 2019, adenocarcinoma Left lower lobe wedge resection in January 2021 adenocarcinoma She was diagnosed with right upper lobe lung adenocarcinoma and underwent right upper lobectomy/mediastinal lymphadenectomy on 08/03/[address] [facility]. Pathology revealed invasive adenocarcinoma, tumor size 1.3 x 0.9 x 0.5 cm, moderately differentiated, tumor invades visceral pleura, no satellite nodules. Vascular invasion present, margins negative. Pathological TNM stage PT2a, pN0, MX. Surveillance CT chest with contrast performed 12/26/2020 showed stable postsurgical changes, 2 new/increasing suspicious areas in the right lower lobe nodules. Interval increase in suspicious appearing cavitary left upper lobe nodule. Numerous bilateral small ground-glass nodules. On 01/21/2021 patient underwent left upper lobe wedge resection and lymph node biopsies. Pathology revealed adenocarcinoma tumor size 1.8 x 1.8 x 1.1 cm. Single focus, G2 moderately differentiated, visceral pleural invasion identified, lymphovascular invasion not identified. Margins negative. Two lymph nodes were examined, negative for carcinoma. Pathological TNM stage pT2a pN0. Molecular studies to be obtained from [facility], this was ordered last week. Stage IB cancer without any high-risk features such as lymphovascular invasion. Surveillance imaging with CT chest/abdomen and pelvis performed in September 2021 sh owed new right lower lobe mass measuring 1.7 x 1.3 cm suspicious for new/metastatic lesion. Sub pleural ground-glass attenuation measuring 1.4 x 1.1 cm similar to previous exam. Second lesion in the right lower lobe posterior basal segment measuring 1.6 x 1.4 cm which is also suspicious. Subcarinal lymph nodes largest measuring 1.3 x 2.1 cm and large pretracheal lymph node measuring 1.5 x 1.5 cm all suspicious for disease recurrence.. CT abdomen showed stable 1.4 cm right adrenal lesion. Extensive fine interstitial markings throughout right lower lobe likely post radiation changes. PET-CT was recommended for further evaluation. Remote history of radiation for her right breast for cancer treatment. PET-CT performed 10/14/21 showed extensive FDG avid consolidation in the right middle lobe, worse than CT scan in September. Inflammatory versus infectious etiology along with malignancy. New FDG avid mediastinal lymphadenopathy suspicious for recurrence or metastatic malignancy. FDG avid vertebral lesions in C7 and T7 suspicious for metastasis. Stable right adrenal nodule showed no FDG activity. Patient was treated with azithromycin 500 mg daily for 7 days. Interval History Interval history: Patient is here in follow-up. She is feeling rather washed out. She did well for a couple of days after last cycle of chemotherapy but in the last 3-4 days she has been feeling very tired and weak. She has been sleeping a lot. She has not been eating much or drinking enough water. Denies any fever or chills. No nausea or emesis. No abdominal discomfort or diarrhea. Review of Systems - Constitutional Reports as per HPI, Reports fatigue, Reports lack of energy, Reports malaise, Reports poor appetite - Cardiovascular Reports no additional cardiovascular complaints - Respiratory Reports no additional respiratory complaints - Gastrointestinal Reports no additional gastrointestinal complaints - Neurologic Denies weakness PMFSH Medical History: Medical History (Last Reviewed 01/02/22 @ 13:43 by Marta Julian) Bilateral lung cancer Cancer of upper lobe of left lung Onset Date: ~2020 Cancer of upper lobe of right lung Onset Date: ~2019 COPD (chronic obstructive pulmonary disease) Depression GERD (gastroesophageal reflux disease) History of breast cancer Onset Date: ~2006 History of hepatitis C HTN (hypertension) Internal and external bleeding hemorrhoids Obesity Pulmonary nodules Smoker Tubular adenoma of colon Family History: Family History (Last Reviewed 01/02/22 @ 13:43 by Marta Julian) Mother History of lung cancer Brother History of lung cancer Maternal Grandmother Breast cancer in female Maternal Aunt Breast cancer in female Daughter Thyroid cancer Surgical History: Surgical History (Last Reviewed 01/02/22 @ 13:43 by Marta Julian) History of anterior colporrhaphy Onset Date: ~2016 History of back surgery Onset Date: ~2011 History of colonoscopy Onset Date: ~2014 History of hemorrhoidectomy Onset Date: ~2019 History of lobectomy of lung Onset Date: ~2019 History of lumpectomy of right breast Onset Date: ~2006 History of lung surgery Onset Date: ~2020 History of tubal ligation Social History: Social History (Last Reviewed 01/02/22 @ 13:43 by Marta Julian) Living Situation History: Household Members: Significant Other Household Members: None Housing: Apartment Are you a primary occasional caregiver to a significant other at home: No Do you presently have visiting nurse or other home services: No Alcohol History Details: 1. How often do you have a drink containing alcohol?: b. Monthly or less 2. How many drinks containing alcohol do you have on a typical day when you are drinking?: a. 1 or 2 Tobacco History: Patient Tobacco Use Status: Current someday Tobacco Tobacco use type: Cigarette Years Smoked: 46 Smoked in Last 30 Days: Yes Substance Use History: Use of substances other than those prescribed or required for medical reasons : Yes Substance Use Type: Marijuana Substance Use Type Other:: 5 mg edibles Last Used Substance Other:: IV heroin 8 years ago Domestic Abuse History: Have you been hit, kicked, punched, or otherwise hurt by someone within the past year? If so, by whom?: No Do you feel safe in your current relationship?: Yes Homicidal Assessment: Do you have thoughts of harming others: None Do you have a plan to hurt others: No Plan Do you have the means to hurt others: No Nutrition Assessment: Recently lost weight without trying: No Occupation Assessmet: service: No Current occupational status: disabled Current occupational exposures/hazards: No Home Medications and Allergies Home Medications Medication Instructions Recorded Confirmed Type aspirin 81 mg tablet,delayed 81 mg PO DAILY 02/12/20 01/02/22 History release (Brenda Low Dose Aspirin) buprenorphine 12 mg-naloxone 3 mg 1 film buccal Q24H 02/12/20 01/02/22 History sublingual film (Suboxone) cholecalciferol (vitamin D3) 50 50 mcg PO DAILY 02/12/20 01/02/22 History mcg (2,000 unit) capsule (Vitamin D3) diltiazem HCl 180 mg 180 mg PO DAILY 02/12/20 01/02/22 History capsule,extended release 24 hr, controlled metoprolol tartrate 50 1 tab PO DAILY 02/12/20 01/02/22 History mg-hydrochlorothiazide 25 mg tablet milnacipran 50 mg tablet (Savella) 50 mg PO BID 02/12/20 01/02/22 History omeprazole 20 mg capsule,delayed 20 mg PO DAILY 02/12/20 01/02/22 History release paroxetine HCl 30 mg tablet 60 mg PO DAILY 02/12/20 01/02/22 History simvastatin 20 mg tablet 20 mg PO BEDTIME 02/12/20 01/02/22 History nicotine 21 mg/24 hr daily 1 patch topical DAILY 02/20/21 01/02/22 History transdermal patch Allergies Allergy/AdvReac Type Severity Reaction Status Date / Time lisinopril [LISINOPRIL] Allergy Severe SWELLING- Verified 12/25/21 13:20 ANGIOEDEMA codeine [CODEINE] Allergy Intermediate VOMITING/HIVES, Verified 12/25/21 13:20 vomiting, hives Exam Vital signs: Vital Signs Temp 96.8 F 12/25/21 13:15 Pulse 82 12/25/21 13:15 Resp 19 12/25/21 13:15 BP 139/83 12/25/21 13:15 Pulse Ox 96 12/25/21 13:15 O2 Del Method 12/25/21 13:15 Weight 93.8 kg BMI result Body Mass Index 32.3 - Constitutional Present: no acute distress - Routine HEENT Exam Head: Present: normal inspection - Routine Neck Exam Absent: lymphadenopathy - Routine Respiratory Exam Present: CTAB. Absent: respiratory distress, rhonchi - Routine Cardiovascular Exam Cardiovascular: Present: RRR, S1, S2 - Routine Abdominal Exam Present: distended, soft. Absent: organomegaly - Routine Extremities Exam Present: pulses intact - Routine Skin Exam Present: intact. Absent: cyanosis Data - Labs CBC & Chem 7: 01/02/22 13:35 01/02/22 13:35 Assessment and Plan Patient Active problem list reviewed?: Yes (1) Bilateral lung cancer Problem details: (RUL lobectomy 07/2019 & LITA wedge 01/2021) Status: Chronic Assessment and plan: 1. This is a pleasant 61-year-old woman with bilateral lung adenocarcinoma. She has been diagnosed with recurrent metastatic lung cancer in the right with bone and brain metastasis in september 2021. She had right upper lobectomy/mediastinal lymphadenectomy on 08/03/[address] [facility]. Pathology revealed invasive adenocarcinoma, tumor size 1.3 x 0.9 x 0.5 cm, moderately differentiated, tumor invades visceral pleura, no satellite nodules. Vascular invasion present, margins negative. Pathological TNM stage PT2a, pN0, MX. NGS panel negative for for alk rearrangement, ROS1 rearrangement, MET amplification, RET rearrangement and PTEN deletions, KRAS G12C mutation present, MSI stable, PD L1-TPS score 1, HER2 with breast scoring equivocal, stone TRK equivocal. RBM10 and TP53 alterations detected. On 01/21/2021 patient underwent left upper lobe wedge resection and lymph node biopsies. Pathology revealed adenocarcinoma tumor size 1.8 x 1.8 x 1.1 cm. Single focus, G2 moderately differentiated, visceral pleural invasion i dentified, lymphovascular invasion not identified. Margins negative. Two lymph nodes were examined, negative for carcinoma. Pathological TNM stage pT2a pN0. KRAS mutation Exon 2 ([id number]) positive, BRAF negative, PDL1 1%. EGFR and alk mutations were not tested as they are mutually exclusive if KRAS is present. ( it was sent to [facility] from [facility]). on 11/03/[address]-guided biopsy of right upper lobe mass, pathology -adenocarcinoma, moderately to poorly differentiated consistent with lung primary. PDL expression 1%, HER2 equivocal score 2+. Brain MRI performed 10/29/2021 showed enhancing metastasis in the left cerebellum measuring 3 mm. A 2 mm indeterminate enhancement in the left parietal lobe could be developmental venous anomaly. PET-CT showed FDG avid vertebral lesions in C7 and T7. Patient started on combination therapy with pembrolizumab, carboplatin and pemetrexed on 11/13/2021. She is on denosumab 120 mg subQ monthly for bone metastasis. She is cycle 3 day 8 today. She is neutropenic and developed renal insufficiency secondary to poor oral intake. She do not want to stay for hydration today. She is coming back next week for IV fluids and denosumab. She is developing neutropenia. Neulasta and dose reduction from next cycle. Repeat PET-CT and brain MRI in January. Follow-up in 3 weeks. - Time Spent With Patient Time Spent with Patient (in minutes): 15
[2022-01-02 13:41] VITALS: BP 133/90; PULSE 102; TEMP 36.6; O2SAT 100
[2022-01-02 13:42] LABS: Basophils Percent Auto 1.2 % (0-2); Eosinophils Percent Auto 1.2 % (0-4); Hematocrit 30.4 % (37.0-47.0); Hemoglobin 10.2 g/dl (12.0-16.0); Imm Gran Abs Auto 0.02 X10*3/uL (0.00-0.03); Imm Gran Pct Auto 1.2 % (0.0-0.4); Lymphocytes Absolute Auto 0.8 X10*3/uL (1.2-4.9); Lymphocytes Percent Auto 44.4 % (20-40); MANUAL DIFF FLAG SCAN; Mean Corpuscular HGB Conc 33.6 g/dl (31.0-35.0); Mean Corpuscular Hemoglobin 29.1 pg (27.0-33.0); Mean Corpuscular Volume 86.9 fL (80.0-98.0); Mean Platelet Volume 9.1 fL (9.4-12.3); Monocytes Absolute Auto 0.1 X10*3/uL (0.1-1.2); Monocytes Percent Auto 4.7 % (2-11); Neutrophils Absolute Auto 0.8 x10*3/uL (2.0-8.3); Neutrophils Percent Auto 47.3 % (45-73); Red Cell Distribution Width 15.8 % (11.0-16.0); SCAN SMEAR FLAG 1
[2022-01-02 13:43] LABS: Platelet Count 88 X10*3/uL (160-400); White Blood Count 1.7 X10*3/uL (4.8-10.8)
[2022-01-02 14:03] LABS: SLIDE REVIEW VERIFIED
[2022-01-02 14:08] LABS: Alanine Aminotransferase 25 U/L (0-31); Albumin Level 4.2 g/dL (3.5-5.0); Alkaline Phosphatase 83 U/L (39-117); Anion Gap 21 (12-20); Aspartate Amino Transferase 22 U/L (5-31); Bilirubin Total 1.1 mg/dL (0.0-1.0); Blood Urea Nitrogen 31 mg/dL (9-16); Calcium 8.8 mg/dL (8.4-10.2); Carbon Dioxide 21 mmol/L (22-29); Chloride 103 mmol/L (96-108); Creatinine Clr Calc Pharmacy 43.4; Estimated Glomerular Filt Rate 33; Glucose Random 192 mg/dL (60-115); Potassium 3.9 mmol/L (3.3-5.1); Sodium 141 mmol/L (135-145); Total Protein 7.7 g/dL (6.5-8.0)
--- NOTE | 2022-01-02 14:14 | MHC.HEMONC ---
Addendum entered by Anahi Chun RN 01/02/22 14:28: Lab results reviewed with Dr Samuels. Pt called and instructed to drink fluids secondary to dehydration. Appointment scheduled for 01/05/22 at 1300 for IV hydration and denosumab injection. Message left on answering machine. Original Note: Pt here for lab draw, provider follow up and denosumab injection. Pt crying states she doesn't feel well. Complaining of increased fatigue. Labs drawn by seat cover cutter. Dr Samuels into see pt. Pt states she cannot wait for lab results to get Denosumab injection. Pt states she will return on Wednesday01/05/22
--- NOTE | 2022-01-02 14:23 | MHC.HEMONCMA ---
patient seen today for followup right lung ca, VSS, labs, followup as scheduled for treatment and petscan ordered.
[2022-01-05] MEDS: 0.9 % Sodium Chloride 1,000 ML 999 ML IV (13:15)
[2022-01-05 13:22] VITALS: BP 138/76; PULSE 70; RESP 19; TEMP 35.7; O2SAT 98
--- NOTE | 2022-01-05 14:48 | MHC.HEMONC ---
Pt here for IV hydration. States she is very fatigued, has had headache for a few days. States she has not been taking fluids well over last few days. #22 angio inserted in left AC with blood return noted. 1000 ml 0.9% NS infused. Vital signs stable. Peripheral IV removed. No edema at site. Pt to return on Wednesday01/07/22 for repeat labs and denosumab injection. No Denosumab today per DR Samuels. Discharge packet given
[2022-01-07 12:50] LABS: Basophils Percent Auto 0.7 % (0-2); Eosinophils Percent Auto 2.2 % (0-4); Hematocrit 21.4 % (37.0-47.0); Hemoglobin 7.5 g/dl (12.0-16.0); Lymphocytes Percent Auto 71.1 % (20-40); MANUAL DIFF FLAG SCAN; Mean Corpuscular Volume 82.6 fL (80.0-98.0); Monocytes Absolute Auto 0.3 X10*3/uL (0.1-1.2); Monocytes Percent Auto 19.3 % (2-11); Neutrophils Absolute Auto 0.1 x10*3/uL (2.0-8.3); Neutrophils Percent Auto 6.7 % (45-73); Red Blood Count 2.59 X10*6/uL (4.20-5.50); Red Cell Distribution Width 14.9 % (11.0-16.0); SCAN SMEAR FLAG 1; White Blood Count 1.4 X10*3/uL (4.8-10.8)
[2022-01-07 12:52] LABS: Platelet Count 3 X10*3/uL (160-400)
[2022-01-07 12:57] VITALS: BP 118/78; PULSE 92; RESP 18; TEMP 36; O2SAT 98; BMI 31.7
[2022-01-07 13:24] LABS: SLIDE REVIEW VERIFIED
[2022-01-07 13:33] LABS: Alanine Aminotransferase 16 U/L (0-31); Albumin Level 3.9 g/dL (3.5-5.0); Alkaline Phosphatase 67 U/L (39-117); Anion Gap 18 (12-20); Aspartate Amino Transferase 19 U/L (5-31); Bilirubin Total 0.5 mg/dL (0.0-1.0); Blood Urea Nitrogen 29 mg/dL (9-16); Calcium 8.1 mg/dL (8.4-10.2); Carbon Dioxide 24 mmol/L (22-29); Chloride 99 mmol/L (96-108); Creatinine Clr Calc Pharmacy 55.8; Estimated Glomerular Filt Rate 44; Glucose Random 124 mg/dL (60-115); Lactate Dehydrogenase 368 U/L (122-220); Potassium 3.1 mmol/L (3.3-5.1); Sodium 138 mmol/L (135-145); Total Protein 6.9 g/dL (6.5-8.0)
[2022-01-07] MEDS: Potassium Chloride ER 20 MEQ TAB.ER.PRT 40 MEQ PO (13:50)
[2022-01-07 15:02] VITALS: BP 118/78; PULSE 92; RESP 18; TEMP 36
[2022-01-07 15:17] VITALS: BP 118/84; PULSE 78; RESP 18; TEMP 36.1
[2022-01-07 15:35] VITALS: BP 134/74; PULSE 80; RESP 18; TEMP 36
--- NOTE | 2022-01-07 17:28 | MHC.HEMONC ---
Pt was in today for f/u labs and monthly Xgeva injection, VSS, weight stable, reported she's feeling much better since last time she was here on Mon and received IVF, continues w/ intermittent diarrhea and nausea, managed w/ PRN meds, biggest issue is her intense fatigue. Pt left letter for [facility] to have documentation of medical condition to request detachable shower-head, Coil Cleaner Sandra to f/u next week w/ pt. Pt's labs were drawn peripherally, nursing received call from lab about critical low Platelet count of 3, also Hgb/Hct were 7.5/21.4. Dr. Samuels ordered pt to receive x2 units Platelets and x1 unit PRBC. Nurse reviewed common transfusion reactions w/ pt, pt signed consent to transfuse, as did Dr. Samuels. Pt's potassium was also low at 3.1, so nurse admin potassium 40 mEq PO x1 now. Pt had 20g PIV placed in L FA x4 attempts, w/ positive blood return. Nurse admin 1st unit of platelets between 15:02 and 15:30, VS remained stable and LS remained CTA. Nurse offered to have pt receive remaining Platelets and 1 unit of PRBC at the clinic before closing, but Dr. Samuels would want to re-check her CBC to be sure it would be safe for her to return home. Pt said that she'd rather be evaluated at the ED, to be safe. Dr. Samuels gave doc-to-doc report, nurse called and gave report to nurse Santos. Pt's L FA PIV was flushed w/ NS, capped, left in place for ED. Nurse provided pt w/ D/C packet, escorted pt to ED via w/c. Pt's Ca resulted low at 8.1, Dr. Samuels ordered to hold pt's Xgeva/Denosumab today, to be rescheduled at later date.
--- NOTE | 2022-01-09 11:33 | MHC.HEMONC ---
Pt called for well being check. Pt states she feels better today after blood transfusion and injection. Dr Sameuls notified
--- NOTE | 2022-01-13 15:15 | MHC.HEMONC ---
Nurse called pt at home, no answer, left asking pt to please come in for f/u labs tomorrow earlier than sched appt at 13:00. Nurse reminded pt that she was d/c'd from [facility] last week w/ Hgb of 7.6, so her labs will likely show that she will need a transfusion, and extra time must be taken to process the type + screen. Nurse left CB #. Nurse entered orders for CBC, CMP, and T + S.
[2022-01-14 11:00] LABS: Basophils Percent Auto 0.5 % (0-2); Eosinophils Absolute Auto 0.1 X10*3/uL (0.0-0.4); Eosinophils Percent Auto 1.6 % (0-4); Hematocrit 24.4 % (37.0-47.0); Hemoglobin 8.6 g/dl (12.0-16.0); Imm Gran Abs Auto 0.27 X10*3/uL (0.00-0.03); Imm Gran Pct Auto 4.2 % (0.0-0.4); Lymphocytes Absolute Auto 1.4 X10*3/uL (1.2-4.9); Lymphocytes Percent Auto 21.9 % (20-40); MANUAL DIFF FLAG SCAN; Mean Corpuscular HGB Conc 35.2 g/dl (31.0-35.0); Mean Corpuscular Hemoglobin 29.1 pg (27.0-33.0); Mean Corpuscular Volume 82.4 fL (80.0-98.0); Mean Platelet Volume 11.5 fL (9.4-12.3); Monocytes Absolute Auto 2.1 X10*3/uL (0.1-1.2); Monocytes Percent Auto 32.4 % (2-11); Neutrophils Absolute Auto 2.5 x10*3/uL (2.0-8.3); Neutrophils Percent Auto 39.4 % (45-73); Red Blood Count 2.96 X10*6/uL (4.20-5.50); Red Cell Distribution Width 15.1 % (11.0-16.0); SCAN SMEAR FLAG 1; White Blood Count 6.4 X10*3/uL (4.8-10.8)
[2022-01-14 11:03] LABS: Platelet Count 62 X10*3/uL (160-400)
[2022-01-14 11:14] LABS: Alanine Aminotransferase 18 U/L (0-31); Alkaline Phosphatase 75 U/L (39-117); Aspartate Amino Transferase 25 U/L (5-31); Bilirubin Total 0.6 mg/dL (0.0-1.0); Blood Urea Nitrogen 21 mg/dL (9-16); Calcium 7.9 mg/dL (8.4-10.2); Creatinine Clr Calc Pharmacy 49.5; Estimated Glomerular Filt Rate 39; Glucose Random 109 mg/dL (60-115); Total Protein 7.4 g/dL (6.5-8.0)
[2022-01-14 11:27] LABS: Anion Gap 21 (12-20); Carbon Dioxide 25 mmol/L (22-29); Chloride 96 mmol/L (96-108); Potassium 2.9 mmol/L (3.3-5.1); Sodium 139 mmol/L (135-145)
--- NOTE | 2022-01-14 11:44 | MHC.HEMONC ---
Addendum entered by Jani Sarabia RN 01/14/22 15:49: Dr. Samuels informed this nurse that, rather than holding pt's Pemetrexed and Carbo tomorrow, she is ordering pt to receive these meds at 75% of their dose tomorrow d/t her thrombocytopenia, Plt count today of 62. Nurse to notify chemo pharmacist in the morning. Addendum entered by Olga Pierce RN 01/14/22 11:54: ca still too low at 7.9 to receive xgeva Original Note: pt attended for pre chemo labs, no blood transfusion needed hgb 8.6. plt also increased to 62 however not high enough for full chemo treatment tomorrow. pemobro only pharm and pt aware
[2022-01-14 11:53] LABS: SLIDE REVIEW VERIFIED
[2022-01-15] MEDS: Potassium Chloride/H20 10 MEQ/100 ML PIGGYBACK 100 MEQ IV ×2 (12:10→12:51)
[2022-01-15] MEDS: 0.9 % Sodium Chloride 500 ML IV (12:11)
[2022-01-15] MEDS: Fosaprepitant Dimeglumine 150 MG in 0.9 % Sodium Chloride 145 ML 300 MG IV (12:22)
[2022-01-15] MEDS: Acetaminophen 325 MG TABLET 650 MG PO (12:31)
[2022-01-15] MEDS: diphenhydrAMINE HCL 25 MG TABLET PO (12:31)
[2022-01-15] MEDS: Famotidine/PF 20 MG/2 ML VIAL IVPUSH (12:32)
[2022-01-15] MEDS: dexAMETHasone sod phosphate/NS 12 MG/50 ML PIGGYBACK 200 MG IV (12:33)
[2022-01-15 12:36] VITALS: BP 124/83; PULSE 82; RESP 18; TEMP 35.8; O2SAT 96; BMI 31.8
[2022-01-15] MEDS: SODIUM CHLORIDE 0.9% IV ×2 (14:37→14:41)
[2022-01-15] MEDS: PEMETREXED DISODIUM IV (14:37)
[2022-01-15] MEDS: CARBOPLATIN IV (14:41)
--- NOTE | 2022-01-15 15:02 | MHC.HEMONC ---
Pt here for C4D1 Pembrolizumab/Pemetrexed/Carbo. Labs drawn yesterday reviewed. Potassium level 2.9, calcium level 7.[address] Samuels. Plan for KCL 20meq IV, 500mg calcium orally, 500ml 0.9% NS IV. Calcium level too low for Denosumab injection today. Pt agreeable to plan. #22 angio inserted in right hand with blood return noted. Second peripheral IV #22 angio inserted in right AC with blood return noted. 20 meq KCL (divided doses) and 500ml 0.9% NS infused. Pre medicated with tylenol, benadryl, decadron, pepcid, emend, zofran given. Pembrolizumab/ Pemerexed (75%)/Carbo(75%) given -tolerated well. 500mg oral calcium given as ordered. Peripheral IV removed from right hand and AC-No edema or redness at site. Pt has follow up appointment tomorrow to see Dr Samuels. Discharge packet given with next appointment scheduled. Pt instructed to take dexamethasone twice a day tomorrow and Wednesday-verbalizes understanding.
--- NOTE | 2022-01-16 09:55 | HO.HEMONCPA ---
Addendum entered by Iwona Santos MA 01/16/22 12:24: NO PA IS REQUIRED FOR (UDENYCA) PEGFILGRASTIM . I WILL NOTIFY THE NURSE OF THIS . Original Note: NO PA IS REQUIRED FOR PEGFILGRASTIM . I WILL NOTIFY THE NURSE OF THIS .
--- NOTE | 2022-01-16 12:06 | PM.HEMONCPN ---
Medical Summary - Medical Summary Date of Service: 01/16/22 Chief complaint: Follow-up Medical Summary: Diagnosis: Right upper lobe Wedge resection in July 2019, adenocarcinoma Left lower lobe wedge resection in January 2021 adenocarcinoma She was diagnosed with right upper lobe lung adenocarcinoma and underwent right upper lobectomy/mediastinal lymphadenectomy on 08/03/2019 at [facility]. Pathology revealed invasive adenocarcinoma, tumor size 1.3 x 0.9 x 0.5 cm, moderately differentiated, tumor invades visceral pleura, no satellite nodules. Vascular invasion present, margins negative. Pathological TNM stage PT2a, pN0, MX. Surveillance CT chest with contrast performed 12/26/2020 showed stable postsurgical changes, 2 new/increasing suspicious areas in the right lower lobe nodules. Interval increase in suspicious appearing cavitary left upper lobe nodule. Numerous bilateral small ground-glass nodules. On 01/21/2021 patient underwent left upper lobe wedge resection and lymph node biopsies. Pathology revealed adenocarcinoma tumor size 1.8 x 1.8 x 1.1 cm. Single focus, G2 moderately differentiated, visceral pleural invasion identified, lymphovascular invasion not identified. Margins negative. Two lymph nodes were examined, negative for carcinoma. Pathological TNM stage pT2a pN0. Molecular studies to be obtained from [facility], this was ordered last week. Stage IB cancer without any high-risk features such as lymphovascular invasion. Surveillance imaging with CT chest/abdomen and pelvis performed in September 2021 showed new right lower lobe mass measuring 1.7 x 1.3 cm suspicious for new/metastatic lesion. Sub pleural ground-glass attenuation measuring 1.4 x 1.1 cm similar to previous exam. Second lesion in the right lower lobe posterior basal segment measuring 1.6 x 1.4 cm which is also suspicious. Subcarinal lymph nodes largest measuring 1.3 x 2.1 cm and large pretracheal lymph node measuring 1.5 x 1.5 cm all suspicious for disease recurrence.. CT abdomen showed stable 1.4 cm right adrenal lesion. Extensive fine interstitial markings throughout right lower lobe likely post radiation changes. PET-CT was recommended for further evaluation. Remote history of radiation for her right breast for cancer treatment. PET-CT performed 10/14/21 showed extensive FDG avid consolidation in the right middle lobe, worse than CT scan in September. Inflammatory versus infectious etiology along with malignancy. New FDG avid mediastinal lymphadenopathy suspicious for recurrence or metastatic malignancy. FDG avid vertebral lesions in C7 and T7 suspicious for metastasis. Stable right adrenal nodule showed no FDG activity. Patient was treated with azithromycin 500 mg daily for 7 days. Interval History Interval history: Patient is here in follow-up. She is doing okay, she tolerated last cycle fairly well. She denies any nausea or emesis. No abdominal discomfort. She does have some loose stools. She denies any headache dizziness. Review of Systems - Constitutional Reports as per HPI, Reports no additional constitutional complaints - Cardiovascular Reports no additional cardiovascular complaints - Respiratory Reports no additional respiratory complaints - Neurologic Denies weakness FOR[facility]LY [facility] Medical History: Medical History (Last Reviewed 01/16/22 @ 12:23 by Marta Julian) Bilateral lung cancer Cancer of upper lobe of left lung Onset Date: ~2020 Cancer of upper lobe of right lung Onset Date: ~2019 COPD (chronic obstructive pulmonary disease) Depression GERD (gastroesophageal reflux disease) History of breast cancer Onset Date: ~2006 History of hepatitis C HTN (hypertension) Internal and external bleeding hemorrhoids Obesity Pulmonary nodules Smoker Tubular adenoma of colon Family History: Family History (Last Reviewed 01/16/22 @ 12:23 by Marta Julian) Mother History of lung cancer Brother History of lung cancer Maternal Grandmother Breast cancer in female Maternal Aunt Breast cancer in female Daughter Thyroid cancer Surgical History: Surgical History (Last Reviewed 01/16/22 @ 12:23 by Marta Julian) History of anterior colporrhaphy Onset Date: ~2016 History of back surgery Onset Date: ~2011 History of colonoscopy Onset Date: ~2014 History of hemorrhoidectomy Onset Date: ~2019 History of lobectomy of lung Onset Date: ~2019 History of lumpectomy of right breast Onset Date: ~2006 History of lung surgery Onset Date: ~2020 History of tubal ligation Social History: Social History (Last Reviewed 01/16/22 @ 12:23 by Marta Julian) Living Situation History: Household Members: Significant Other Household Members: None Housing: Apartment Are you a primary care coordinator to a significant other at home: No Do you presently have visiting nurse or other home services: No Alcohol History Details: 1. How often do you have a drink containing alcohol?: b. Monthly or less 2. How many drinks containing alcohol do you have on a typical day when you are drinking?: a. 1 or 2 Tobacco History: Patient Tobacco Use Status: Current someday Tobacco Tobacco use type: Cigarette Years Smoked: 46 Smoked in Last 30 Days: Yes Substance Use History: Use of substances other than those prescribed or required for medical reasons: Yes Substance Use Type: Marijuana Substance Use Type Other:: 5 mg edibles Last Used Substance Other:: IV heroin 8 years ago Domestic Abuse History: Have you been hit, kicked, punched, or otherwise hurt by someone within the past year? If so, by whom?: No Do you feel safe in your current relationship?: Yes Homicidal Assessment: Do you have thoughts of harming others: None Do you have a plan to hurt others: No Plan Do you have the means to hurt others: No Nutrition Assessment: Recently lost weight without trying: No Occupation Assessmet: service: No Current occupational status: disabled Current occupational exposures/hazards: No Home Medications and Allergies Current Medications: Current Medications Pegfilgrastim-cbqv (Pegfilgrastim-Cbqv 6 Mg/0.6 Ml Syringe) 6 mg SUBCUT ONCE [facility]ALTER Stop: 01/16/22 23:59 Home Medications Medication Instructions Recorded Confirmed Type aspirin 81 mg tablet,delayed 81 mg PO DAILY 02/12/20 01/16/22 History release (Brenda Low Dose Aspirin) cholecalciferol (vitamin D3) 50 50 mcg PO DAILY 02/12/20 01/16/22 History mcg (2,000 unit) capsule (Vitamin D3) diltiazem HCl 180 mg 180 mg PO DAILY 02/12/20 01/16/22 History capsule,extended release 24 hr, controlled metoprolol tartrate 50 1 tab PO DAILY 02/12/20 01/16/22 History mg-hydrochlorothiazide 25 mg tablet milnacipran 50 mg tablet (Savella) 50 mg PO BID 02/12/20 01/16/22 History omeprazole 20 mg capsule,delayed 20 mg PO DAILY 02/12/20 01/16/22 History release paroxetine HCl 30 mg tablet 60 mg PO DAILY 02/12/20 01/16/22 History simvastatin 20 mg tablet 20 mg PO BEDTIME 02/12/20 01/16/22 History albuterol sulfate 90 mcg/actuation 2 puff inhalation Q4H PRN Wheezing 01/07/22 01/16/22 History aerosol inhaler (ProAir HFA) buprenorphine 4 mg-naloxone 1 mg 1 film sublingual DAILY 01/07/22 01/16/22 History sublingual film Allergies Allergy/AdvReac Type Severity Reaction Status Date / Time lisinopril [LISINOPRIL] Allergy Severe SWELLING- Verified 01/15/22 12:39 ANGIOEDEMA codeine [CODEINE] Allergy Intermediate VOMITING/HIVES, Verified 01/15/22 12:39 vomiting, hives Exam Vital signs: Vital Signs Temp 96.4 F L 01/15/22 12:36 Pulse 82 01/15/22 12:36 Resp 18 01/15/22 12:36 BP 124/83 01/15/22 12:36 Pulse Ox 96 01/15/22 12:36 O2 Del Method 01/15/22 12:36 Intake & Output 01/15/22 01/16/22 01/16/22 18:59 06:59 18:59 Intake Total 1354.333 / 1354.333 Balance 1354.333 / 1354.333 Intake: Intake, IV Amount 1354.333 / 1354.333 0.9 % Sodium Chloride 500 ml @ 500 / 500 500 mls/hr IV .Q1H WALTER Rx#: [id number] CARBOplatin 280 mg In 0.9 % 278 / 278 Sodium Chloride 250 ml @ 556 mls/hr IV ONCE WALTER Rx#: [id number] Fosaprepitant Dimeglumine 150 150 / 150 mg In 0.9 % Sodium Chloride 145 ml @ 300 mls/hr IV ONCE WALTER Rx #:[id number] Ondansetron HCL/NS 16 mg In 50 50 / 50 ml @ 200 mls/hr IV ONCE WALTER Rx# :[id number] PEMEtrexed disodium 775 mg In 0 100 / 100 .9 % Sodium Chloride 69 ml @ 600 mls/hr IV ONCE WALTER Rx#: [id number] Pembrolizumab 200 mg In 0.9 % 58 / 58 Sodium Chloride 50 ml @ 116 mls /hr IV ONCE WALTER Rx#:[id number] Potassium Chloride/H20 10 meq 168.333 / 168.333 In 100 ml @ 100 mls/hr IV Q1H WALTER Rx#:[id number] dexAMETHasone sod phosphate/NS 50 / 50 12 mg In 50 ml @ 200 mls/hr IV ONCE WALTER Rx#:[id number] Other: Weight 92.1 kg [place] Weight in Grams 35510 Weight 92.1 kg BMI result Body Mass Index 31.8 - Constitutional Present: no acute distress - Routine HEENT Exam Head: Present: normal inspection - Routine Neck Exam Absent: lymphadenopathy - Routine Respiratory Exam Present: CTAB. Absent: respiratory distress, rhonchi - Routine Cardiovascular Exam Cardiovascular: Present: RRR, S1, S2 - Routine Abdominal Exam Present: distended, soft. Absent: organomegaly - Routine Extremities Exam Present: pulses intact - Routine Skin Exam Present: intact. Absent: cyanosis Data - Labs CBC & Chem 7: 01/14/22 10:51 01/14/22 10:51 Assessment and Plan Patient Active problem list reviewed?: Yes (1) Bilateral lung cancer Problem details: (RUL lobectomy 07/2019 & LITA wedge 01/2021) Status: Chronic Assessment and plan: 1. This is a pleasant 61-year-old woman with bilateral lung adenocarcinoma. She has been diagnosed with recurrent metastatic lung cancer in the right with bone and brain metastasis in september 2021. She had right upper lobectomy/mediastinal lymphadenectomy on 08/03/2019 at [facility]. Pathology revealed invasive adenocarcinoma, tumor size 1.3 x 0.9 x 0.5 cm, moderately differentiated, tumor invades visceral pleura, no satellite nodules. Vascular invasion present, margins negative. Pathological TNM stage PT2a, pN0, MX. NGS panel negative for for alk rearrangement, ROS1 rearrangement, MET amplification, RET rearrangement and PTEN deletions, KRAS G12C mutation present, MSI stable, PD L1-TPS score 1, HER2 with breast scoring equivocal, stone TRK equivocal. RBM10 and TP53 alterations detected. On 01/21/2021 patient underwent left upper lobe wedge resection and lymph node biopsies. Pathology revealed adenocarcinoma tumor size 1.8 x 1.8 x 1.1 cm. Single focus, G2 moderately differentiated, visceral pleural invasion identified, lymphovascular invasion not identified. Margins negative. Two lymph nodes were examined, negative for carcinoma. Pathological TNM stage pT2a pN0. KRAS mutation Exon 2 ([id number]) positive, BRAF negative, PDL1 1%. EGFR and alk mutations were not tested as they are mutually exclusive if KRAS is present. ( it was sent to [facility] from [facility]). on 11/03/[address]-guided biopsy of right upper lobe mass, pathology -adenocarcinoma, moderately to poorly differentiated consistent with lung primary. PDL expression 1%, HER2 equivocal score 2+. Brain MRI performed 10/29/2021 showed enhancing metastasis in the left cerebellum measuring 3 mm. A 2 mm indeterminate enhancement in the left parietal lobe could be developmental venous anomaly. PET-CT showed FDG avid vertebral lesions in C7 and T7. Patient started on combination therapy with pembrolizumab, carboplatin and pemetrexed on 11/13/2021. She is on denosumab 120 mg subQ monthly for bone metastasis. She has completed 4 cycles. Repeat PET-CT and brain MRI to assess response to treatment. She is now having more side effects with treatment. If she has had a good response, she will be continued on maintenance pemetrexed and pembrolizumab. 2. Hypokalemia. Replete with oral potassium. She received IV potassium on the day of chemotherapy. Follow-up in 3 weeks. - Time Spent With Patient Time Spent with Patient (in minutes): 15
[2022-01-16 12:20] VITALS: BP 133/80; PULSE 80; RESP 18; TEMP 36; O2SAT 95; BMI 32.3
--- NOTE | 2022-01-16 12:54 | MHC.HEMONCMA ---
Addendum entered by Marta Julian 01/16/22 14:43: petscan and mri ordered and given to auth. Original Note: patient seen today for followup, VSS, labs, followup as scheduled.
--- NOTE | 2022-01-16 13:15 | MHC.HEMONC ---
Pt here for follow up with Dr Samuels. Pt states she is slightly dizzy from walking down hallway-Dr Smauels notified. Undenyca SC given (No PA required per [place])in left arm-tolerated well. Provider into see pt. Pt will be scheduled for scan. Pt has next appointment scheduled.
--- NOTE | 2022-01-20 15:01 | HO.HEMONCPA ---
I RECEIVED A PET CT ORDER FOR PATIENT, I REQUESTED THE IMAGING INSURANCE REFERRAL AND OBTAINED IT THROUGH THE FAX . I SENT IN CLINICAL INFORMATION TO [facility]. AWAITING APPT AND TIME
--- NOTE | 2022-01-23 16:08 | HO.HEMONCPA ---
PATIENT IS SCHEDULED FOR PET CT 02/03/22 AT 10:15AM
--- NOTE | 2022-01-29 11:34 | MHC.HEMONC ---
Next chemo scheduled for 02/05/22. Moved out ONE week per Dr Samuels ( 02/12/22 ) Pt is inpatient currently. Pt called and notified
--- NOTE | 2022-01-30 10:07 | MHC.HEMONC ---
Pt remains inpatient-appointment scheduled for today cancelled for denosumab- will reschedule
--- NOTE | 2022-02-03 08:35 | HO.HEMONCPA ---
PATIENT RESCHEDULED PET CT FOR 02/10/22 AT 10:15AM
--- NOTE | 2022-02-12 13:00 | MHC.HEMONC ---
VML for pt to call office for no status on chemo day
--- NOTE | 2022-02-18 11:34 | HO.HEMONCSCH ---
chemo was scheduled for 03/04/22
--- NOTE | 2022-03-04 13:06 | MHC.HEMONC ---
Pt no show for chemotherapy today. Pt called-no answer with mail box full. Boyfriend Richard called-Elida available when boyfriend number called-Pt states she thought she was finished with chemotherapy. Dr Samuels notified-plan for PET scan before chemotherapy resumed. PET scan order printed and given to Sandra Whitlock. Pt called and notified of plan
--- NOTE | 2022-03-04 15:45 | HO.HEMONCPA ---
RECEIVED ORDER FROM FELY FOR PET CT . NO PA IS REQUIRED FOR PET CT DUE TO PT HAVING MEDICARE . I SENT IN CLINICAL INFO TO [facility] AWAITING APPT DATE & TIME.
--- NOTE | 2022-03-09 11:35 | HE.ONCSEC ---
PATIENT LEFT A VOICEMAIL STATING SHE DOES NOT KNOW WHEN IS HER APPT TIME ON WEDNESDAY AND TO HAVE US PLEASE CALL HER BACK . I CALLED PATIENT BACK AND UPON LOOKING I INFORMED HER THAT I DO NOT SEE ANY UPCOMING APPT AND THE ONLY THING I SAW WAS AN APPT THAT WAS A CANCELED INJECTION IN APRIL . SHE STATED SHE RECEIVED A CALL SO NOW SHES CONFUSED . I ASSURED PATIENT I WILL TRANSFER HER TO ONE OF THE NURSES TO RELIEVE HER FROM CONFUSION.
--- NOTE | 2022-03-09 13:28 | MHC.HEMONC ---
Call received from patient regarding upcoming appts. Explained to patient that chemotherapy is temporarily on hold per Dr. Samuels. PET scan and brain MRI ordered. Follow up appt made for 03/18/22 to review these results and decide next plan of care. Patient verbalizes understanding. Also explained to patient to expect calls from PET and MRI departments to book appts. Order for MRI given to Marta to ricardo in order kiln hand.
--- NOTE | 2022-03-16 11:51 | MHC.HEMONCMA ---
Reached out to patient after getting new cell number from emergency contact Richard anitha [email or web address]#[phone]. Spoke with patient and gave her number for MRI dept to call to [facility] and [facility] number to schedule that as well. Gave to Ebony to update phone number in chart.
--- NOTE | 2022-03-16 12:04 | MHC.HEMONC ---
I spoke to patient. She is aware of Brain MRI next Wednesday 02/21 at 12:45 arrival. She has number and will be calling [facility] for appointment. Apparently her phone number changed and she was not getting our calls.
--- NOTE | 2022-03-18 10:53 | PM.HEMONCPN ---
Medical Summary - Medical Summary Date of Service: 03/18/22 Chief complaint: SOB, fatigue Medical Summary: Diagnosis: Right upper lobe Wedge resection in July 2019, adenocarcinoma Left lower lobe wedge resection in January 2021 adenocarcinoma She was diagnosed with right upper lobe lung adenocarcinoma and underwent right upper lobectomy/mediastinal lymphadenectomy on 08/03/[address] [facility]. Pathology revealed invasive adenocarcinoma, tumor size 1.3 x 0.9 x 0.5 cm, moderately differentiated, tumor invades visceral pleura, no satellite nodules. Vascular invasion present, margins negative. Pathological TNM stage PT2a, pN0, MX. Surveillance CT chest with contrast performed 12/26/2020 showed stable postsurgical changes, 2 new/increasing suspicious areas in the right lower lobe nodules. Interval increase in suspicious appearing cavitary left upper lobe nodule. Numerous bilateral small ground-glass nodules. On 01/21/2021 patient underwent left upper lobe wedge resection and lymph node biopsies. Pathology revealed adenocarcinoma tumor size 1.8 x 1.8 x 1.1 cm. Single focus, G2 moderately differentiated, visceral pleural invasion identified, lymphovascular invasion not identified. Margins negative. Two lymph nodes were examined, negative for carcinoma. Pathological TNM stage pT2a pN0. Molecular studies to be obtained from [facility], this was ordered last week. Stage IB cancer without any high-risk features such as lymphovascular invasion. Surveillance imaging with CT chest/abdomen and pelvis performed in September 2021 showed new right lower lobe mass measuring 1.7 x 1.3 cm suspicious for new/metastatic lesion. Sub pleural ground-glass attenuation measuring 1.4 x 1.1 cm similar to previous exam. Second lesion in the right lower lobe posterior basal segment measuring 1.6 x 1.4 cm which is also suspicious. Subcarinal lymph nodes largest measuring 1.3 x 2.1 cm and large pretracheal lymph node measuring 1.5 x 1.5 cm all suspicious for disease recurrence.. CT abdomen showed stable 1.4 cm right adrenal lesion. Extensive fine interstitial markings throughout right lower lobe likely post radiation changes. PET-CT was recommended for further evaluation. Remote history of radiation for her right breast for cancer treatment. PET-CT performed 10/14/21 showed extensive FDG avid consolidation in the right middle lobe, worse than CT scan in September. Inflammatory versus infectious etiology along with malignancy. New FDG avid mediastinal lymphadenopathy suspicious for recurrence or metastatic malignancy. FDG avid vertebral lesions in C7 and T7 suspicious for metastasis. Stable right adrenal nodule showed no FDG activity. Patient was treated with azithromycin 500 mg daily for 7 days. Interval History Interval history: Patient is here in follow-up. She missed a few appointments both to come to the clinic as well as for PET scan and brain MRI. These have now been rescheduled. She says that she got a new phone and this was not activated properly. She denies any acute complaints but reports good and bad days. Today she is feeling tired, yesterday she was able to clean out her kitchen. She denies any headache or dizziness. No nausea or emesis. Her appetite is still rather poor. Review of Systems - Constitutional Reports as per HPI, Reports fatigue, Reports malaise, Denies night sweats, Reports weakness, Denies weight loss - Cardiovascular Reports no additional cardiovascular complaints - Respiratory Reports no additional respiratory complaints - Gastrointestinal Reports no additional gastrointestinal complaints - Neurologic Denies weakness PMFSH Medical History: Medical History (Last Reviewed 03/18/22 @ 11:04 by Marta Julian) Bilateral lung cancer Cancer of upper lobe of left lung Onset Date: ~2020 Cancer of upper lobe of right lung Onset Date: ~2019 COPD (chronic obstructive pulmonary disease) Depression GERD (gastroesophageal reflux disease) History of breast cancer Onset Date: ~2006 History of hepatitis C HTN (hypertension) Internal and external bleeding hemorrhoids New onset a-fib Obesity Pancytopenia Pulmonary nodules Smoker Tubular adenoma of colon Family History: Family History (Last Reviewed 03/18/22 @ 11:04 by Marta Julian) Mother History of lung cancer Brother History of lung cancer Maternal Grandmother Breast cancer in female Maternal Aunt Breast cancer in female Daughter Thyroid cancer Surgical History: Surgical History (Last Reviewed 03/18/22 @ 11:04 by Marta Julian) History of anterior colporrhaphy Onset Date: ~2016 History of back surgery Onset Date: ~2011 History of colonoscopy Onset Date: ~2014 History of hemorrhoidectomy Onset Date: ~2019 History of lobectomy of lung Onset Date: ~2019 History of lumpectomy of right breast Onset Date: ~2006 History of lung surgery Onset Date: ~2020 History of tubal ligation Social History: Social History (Last Reviewed 03/18/22 @ 11:04 by Marta Julian) Living Situation History: Household Members: Spouse Housing: Apartment Are you a primary customer care representative to a significant other at home: No Do you presently have visiting nurse or other home services: No Alcohol History: Unable to assess alcohol history related to: Unable to respond Tobacco History: Patient Tobacco Use Status: Never used Tobacco Tobacco use type: Cigar Years Smoked: 46 Second Hand Smoke Exposure: No Substance Use History: Substance Use Type: Marijuana Occupation Assessmet: service: No Current occupational status: disabled Current occupational exposures/hazards: No Home Medications and Allergies Home Medications Medication Instructions Recorded Confirmed Type buprenorphine 4 mg-naloxone 1 mg 1 strip sublingual DAILY 01/18/22 03/18/22 History sublingual film (Suboxone) diltiazem HCl 180 mg 180 mg PO DAILY 01/18/22 03/18/22 History capsule,extended release 24 hr, controlled (DILT-XR) folic acid 1 mg tablet 1 mg PO DAILY 01/18/22 03/18/22 History metoprolol tartrate 50 1 tab PO DAILY 01/18/22 03/18/22 History mg-hydrochlorothiazide 25 mg tablet milnacipran 50 mg tablet (Savella) 50 mg PO BID 01/18/22 03/18/22 History omeprazole 20 mg capsule,delayed 20 mg PO DAILY@0630 01/18/22 03/18/22 History release paroxetine HCl 20 mg tablet 60 mg PO DAILY 01/18/22 03/18/22 History umeclidinium 62.5 mcg-vilanterol 1 puff inhalation DAILY 01/18/22 03/18/22 History 25 mcg/actuation powdr for inhalation (Anoro Ellipta) cholecalciferol (vitamin D3) 50 50 mcg PO DAILY 02/17/22 03/18/22 History mcg (2,000 unit) tablet (Vitamin D3) dexamethasone 4 mg tablet 8 mg PO BID 02/17/22 03/18/22 History ipratropium 0.5 mg-albuterol 3 mg 3 ml inhalation Q6-8H PRN 02/17/22 03/18/22 History (2.5 mg base)/3 mL nebulization Shortness Of Breath Or Wheezing soln nicotine 21 mg/24 hr daily 1 patch topical DAILY 02/17/22 03/18/22 History transdermal patch ondansetron HCl 8 mg tablet 8 mg PO Q8H PRN Nausea 02/17/22 03/18/22 History simvastatin 20 mg tablet 20 mg PO DAILY 02/17/22 03/18/22 History Allergies Allergy/AdvReac Type Severity Reaction Status Date / Time lisinopril [LISINOPRIL] Allergy Severe SWELLING- Verified 01/15/22 12:39 ANGIOEDEMA codeine [CODEINE] Allergy Intermediate VOMITING/HIVES, Verified 01/15/22 12:39 vomiting, hives Exam Vital signs: Vital Signs Temp 96.8 F 01/16/22 12:20 Pulse 80 01/16/22 12:20 Resp 18 01/16/22 12:20 BP 133/80 01/16/22 12:20 Pulse Ox 95 01/16/22 12:20 O2 Del Method 01/16/22 12:20 Weight 93.6 kg BMI result Body Mass Index 32.3 - Constitutional Present: no acute distress - Routine HEENT Exam Head: Present: normal inspection - Routine Neck Exam Absent: lymphadenopathy - Routine Respiratory Exam Present: CTAB. Absent: respiratory distress, rhonchi - Routine Cardiovascular Exam Cardiovascular: Present: RRR, S1, S2 - Routine Abdominal Exam Present: distended, soft. Absent: organomegaly - Routine Extremities Exam Present: pulses intact - Routine Skin Exam Present: intact. Absent: cyanosis Data - Labs CBC & Chem 7: 03/18/22 10:57 03/18/22 10:57 Assessment and Plan Patient Active problem list reviewed?: Yes (1) Bilateral lung cancer Problem details: (RUL lobectomy 07/2019 & LITA wedge 01/2021) Status: Chronic Assessment and plan: 1. This is a pleasant 61-year-old woman with bilateral lung adenocarcinoma. She has been diagnosed with recurrent metastatic lung cancer in the right with bone and brain metastasis in september 2021. She had right upper lobectomy/mediastinal lymphadenectomy on 08/03/[address] [facility]. Pathology revealed invasive adenocarcinoma, tumor size 1.3 x 0.9 x 0.5 cm, moderately differentiated, tumor invades visceral pleura, no satellite nodules. Vascular invasion present, margins negative. Pathological TNM stage PT2a, pN0, MX. NGS panel negative for for alk rearrangement, ROS1 rearrangement, MET amplification, RET rearrangement and PTEN deletions, KRAS G12C mutation present, MSI stable, PD L1-TPS score 1, HER2 with breast scoring equivocal, stone TRK equivocal. RBM10 and TP53 alterations detected. On 01/21/2021 patient underwent left upper lobe wedge resection and lymph node biopsies. Pathology revealed adenocarcinoma tumor size 1.8 x 1.8 x 1.1 cm. Single focus, G2 moderately differentiated, visceral pleural invasion identified, lymphovascular invasion not identified. Margins negative. Two lymph nodes were examined, negative for carcinoma. Pathological TNM stage pT2a pN0. KRAS mutation Exon 2 ([id number]) positive, BRAF negative, PDL1 1%. EGFR and alk mutations were not tested as they are mutually exclusive if KRAS is present. ( it was sent to [employer] from [facility]). on 11/03/[address]-guided biopsy of right upper lobe mass, pathology -adenocarcinoma, moderately to poorly differentiated consistent with lung primary. PDL expression 1%, HER2 equivocal score 2+. Brain MRI performed 10/29/2021 showed enhancing metastasis in the left cerebellum measuring 3 mm. A 2 mm indeterminate enhancement in the left parietal lobe could be developmental venous anomaly. PET-CT showed FDG avid vertebral lesions in C7 and T7. Patient started on combination therapy with pembrolizumab, carboplatin and pemetrexed on 11/13/2021. She is on denosumab 120 mg subQ monthly for bone metastasis. She has completed 4 cycles. Repeat PET-CT and brain MRI to assess response to treatment. Blood work shows persistent anemia and mild renal insufficiency. She had to reschedule imaging studies a few times, this is now scheduled for next week. Depending on results, recommendations about treatment will be made. She will be started on maintenance pembrolizumab if she has had a response. She is unable to tolerate chemotherapy, she developed severe cytopenias requiring transfusion of blood and platelets. Follow-up in 3 weeks. - Time Spent With Patient Time Spent with Patient (in minutes): 15
[2022-03-18 10:59] LABS: MANUAL DIFF FLAG NO
[2022-03-18 11:02] VITALS: BP 134/79; PULSE 64; RESP 17; O2SAT 98; BMI 31.1
[2022-03-18 11:04] LABS: Basophils Percent Auto 0.5 % (0-2); Eosinophils Absolute Auto 0.2 X10*3/uL (0.0-0.4); Eosinophils Percent Auto 2.7 % (0-4); Hematocrit 26.5 % (37.0-47.0); Hemoglobin 8.8 g/dl (12.0-16.0); Imm Gran Abs Auto 0.03 X10*3/uL (0.00-0.03); Imm Gran Pct Auto 0.5 % (0.0-0.4); Lymphocytes Absolute Auto 1.3 X10*3/uL (1.2-4.9); Lymphocytes Percent Auto 22.1 % (20-40); Mean Corpuscular HGB Conc 33.2 g/dl (31.0-35.0); Mean Corpuscular Hemoglobin 32.2 pg (27.0-33.0); Mean Corpuscular Volume 97.1 fL (80.0-98.0); Mean Platelet Volume 10.2 fL (9.4-12.3); Monocytes Absolute Auto 0.8 X10*3/uL (0.1-1.2); Monocytes Percent Auto 14.3 % (2-11); Neutrophils Absolute Auto 3.4 x10*3/uL (2.0-8.3); Neutrophils Percent Auto 59.9 % (45-73); Platelet Count 109 X10*3/uL (160-400); Red Blood Count 2.73 X10*6/uL (4.20-5.50); Red Cell Distribution Width 19.8 % (11.0-16.0); White Blood Count 5.7 X10*3/uL (4.8-10.8)
[2022-03-18 11:18] LABS: Alanine Aminotransferase 17 U/L (0-31); Alkaline Phosphatase 57 U/L (39-117); Anion Gap 14 (12-20); Aspartate Amino Transferase 22 U/L (5-31); Bilirubin Total 0.7 mg/dL (0.0-1.0); Blood Urea Nitrogen 23 mg/dL (9-16); Calcium 9.8 mg/dL (8.4-10.2); Carbon Dioxide 32 mmol/L (22-29); Chloride 98 mmol/L (96-108); Creatinine Clr Calc Pharmacy 47.6; Estimated Glomerular Filt Rate 37; Glucose Random 123 mg/dL (60-115); Potassium 3.6 mmol/L (3.3-5.1); Sodium 140 mmol/L (135-145); Total Protein 7.1 g/dL (6.5-8.0)
--- NOTE | 2022-03-18 12:18 | MHC.HEMONCMA ---
patient seen today for follow up left lung CA, VSS, labs, sent for chest xray, followup during arpit week.
--- NOTE | 2022-03-18 15:18 | HO.HEMONCSCH ---
PET SCAN APPT. BOOKED WITH [facility] FOR 03/24/22 at 11:15am
--- NOTE | 2022-03-31 10:50 | HE.ONCSEC ---
PATIENT CALLED TODAY STATING SHE WANTS TO RESCHEDULED HER CHEMO DUE TO HER FORGETTING TO SCHEDULE FOR TRANSPORTATION . I INFORMED [facility] AND TRANSFERRED THE CALL TO [facility] .
--- NOTE | 2022-03-31 10:58 | MHC.HEMONC ---
Pt called stating she would not be in for chemotherapy today-states she screwed up and has no transportation today. Pt states she will be in for MRI today and will get her labs drawn at that time. Dr Samuels notified
[2022-04-07 14:14] VITALS: BP 157/86; PULSE 58; RESP 16; TEMP 36.6; O2SAT 100; BMI 30.6
--- NOTE | 2022-04-07 14:56 | MHC.HEMONC ---
Pt was in for Onc f/u appt, Dr. Samuels asked to resched pt's maintenance Pembrolizumab infusion for this week, nurse booked pt for chemo appt on 04/10/22 at 11:00, also pt had her blood drawn/peripherally to save time on Wed morning. Pt departed, received calendar. Nurse confirmed pt's PA for Pembro is good thru 05/09/22.
[2022-04-07 15:00] LABS: MANUAL DIFF FLAG NO
--- NOTE | 2022-04-07 15:02 | MHC.HEMONCMA ---
patient seen today for followup to mri scan results, left lung ca, VSS, return next week to start chemo.
[2022-04-07 15:07] LABS: Basophils Percent Auto 0.4 % (0-2); Eosinophils Absolute Auto 0.1 X10*3/uL (0.0-0.4); Eosinophils Percent Auto 1.1 % (0-4); Hematocrit 27.3 % (37.0-47.0); Hemoglobin 9.2 g/dl (12.0-16.0); Imm Gran Abs Auto 0.01 X10*3/uL (0.00-0.03); Imm Gran Pct Auto 0.2 % (0.0-0.4); Lymphocytes Absolute Auto 1.4 X10*3/uL (1.2-4.9); Lymphocytes Percent Auto 32.1 % (20-40); Mean Corpuscular HGB Conc 33.7 g/dl (31.0-35.0); Mean Corpuscular Hemoglobin 34.2 pg (27.0-33.0); Mean Corpuscular Volume 101.5 fL (80.0-98.0); Mean Platelet Volume 9.9 fL (9.4-12.3); Monocytes Absolute Auto 0.6 X10*3/uL (0.1-1.2); Monocytes Percent Auto 13.7 % (2-11); Neutrophils Absolute Auto 2.3 x10*3/uL (2.0-8.3); Neutrophils Percent Auto 52.5 % (45-73); Platelet Count 141 X10*3/uL (160-400); Red Blood Count 2.69 X10*6/uL (4.20-5.50); Red Cell Distribution Width 17.1 % (11.0-16.0); White Blood Count 4.5 X10*3/uL (4.8-10.8)
[2022-04-07 15:20] LABS: Alanine Aminotransferase 9 U/L (0-31); Albumin Level 4.3 g/dL (3.5-5.0); Alkaline Phosphatase 52 U/L (39-117); Anion Gap 12 (12-20); Aspartate Amino Transferase 21 U/L (5-31); Bilirubin Total 0.6 mg/dL (0.0-1.0); Blood Urea Nitrogen 16 mg/dL (9-16); Calcium 9.3 mg/dL (8.4-10.2); Carbon Dioxide 33 mmol/L (22-29); Chloride 99 mmol/L (96-108); Creatinine Clr Calc Pharmacy 54.4; Estimated Glomerular Filt Rate 44; Glucose Random 103 mg/dL (60-115); Potassium 3.5 mmol/L (3.3-5.1); Sodium 140 mmol/L (135-145); Total Protein 7.5 g/dL (6.5-8.0)
--- NOTE | 2022-04-07 16:52 | P.PNHO-ONC_ITS ---
Medical Summary - Medical Summary Date of Service: 04/07/22 Chief complaint: Follow-up Medical Summary: Diagnosis: Right upper lobe Wedge resection in July 2019, adenocarcinoma Left lower lobe wedge resection in January 2021 adenocarcinoma She was diagnosed with right upper lobe lung adenocarcinoma and underwent right upper lobectomy/mediastinal lymphadenectomy on 08/03/2019 at [facility]. Pathology revealed invasive adenocarcinoma, tumor size 1.3 x 0.9 x 0.5 cm, moderately differentiated, tumor invades visceral pleura, no satellite nodules. Vascular invasion present, margins negative. Pathological TNM stage PT2a, pN0, MX. Surveillance CT chest with contrast performed 12/26/2020 showed stable postsurgical changes, 2 new/increasing suspicious areas in the right lower lobe nodules. Interval increase in suspicious appearing cavitary left upper lobe nodule. Numerous bilateral small ground-glass nodules. On 01/21/2021 patient underwent left upper lobe wedge resection and lymph node biopsies. Pathology revealed adenocarcinoma tumor size 1.8 x 1.8 x 1.1 cm. Single focus, G2 moderately differentiated, visceral pleural invasion identified , lymphovascular invasion not identified. Margins negative. Two lymph nodes were examined, negative for carcinoma. Pathological TNM stage pT2a pN0. Molecular studies to be obtained from [facility], this was ordered last week. Stage IB cancer without any high-risk features such as lymphovascular invasion. Surveillance imaging with CT chest/abdomen and pelvis performed in September 2021 showed new right lower lobe mass measuring 1.7 x 1.3 cm suspicious for new/metastatic lesion. Sub pleural ground-glass attenuation measuring 1.4 x 1.1 cm similar to previous exam. Second lesion in the right lower lobe posterior basal segment measuring 1.6 x 1.4 cm which is also suspicious. Subcarinal lymph nodes largest measuring 1.3 x 2.1 cm and large pretracheal lymph node measuring 1.5 x 1.5 cm all suspicious for disease recurrence.. CT abdomen showed stable 1.4 cm right adrenal lesion. Extensive fine interstitial markings throughout right lower lobe likely post radiation changes. PET-CT was recommended for further evaluation. Remote history of radiation for her right breast for cancer treatment. PET-CT performed 10/14/21 showed extensive FDG avid consolidation in the right middle lobe, worse than CT scan in September. Inflammatory versus infectious etiology along with malignancy. New FDG avid mediastinal lymphadenopathy suspicious for recurrence or metastatic malignancy. FDG avid vertebral lesions in C7 and T7 suspicious for metastasis. Stable right adrenal nodule showed no FDG activity. Patient was treated with azithromycin 500 mg daily for 7 days. Interval History Interval history: Patient is here in follow-up. She is doing better overall. She is here to discuss results of scans. She missed her appointment last week for treatment. She denies any shortness of breath, fever or chills. No nausea abdominal discomfort. No headache or dizziness. No focal weakness, numbness or tingling. Review of Systems - Neurologic Reports weakness [facility] Medical History: Medical History (Last Reviewed 04/07/22 @ 14:17 by Marta Julian) Bilateral lung cancer Cancer of upper lobe of left lung Onset Date: ~2020 Cancer of upper lobe of right lung Onset Date: ~2019 COPD (chronic obstructive pulmonary disease) Depression GERD (gastroesophageal reflux disease) History of breast cancer Onset Date: ~2006 History of hepatitis C HTN (hypertension) Internal and external bleeding hemorrhoids New onset a-fib Obesity Pancytopenia Pulmonary nodules Smoker Tubular adenoma of colon Family History: Family History (Last Reviewed 04/07/22 @ 14:17 by Marta Julian) Mother History of lung cancer Brother History of lung cancer Maternal Grandmother Breast cancer in female Maternal Aunt Breast cancer in female Daughter Thyroid cancer Surgical History: Surgical History (Last Reviewed 04/07/22 @ 14:17 by Marta Julian) History of anterior colporrhaphy Onset Date: ~2016 History of back surgery Onset Date: ~2011 History of colonoscopy Onset Date: ~2014 History of hemorrhoidectomy Onset Date: ~2019 History of lobectomy of lung Onset Date: ~2019 History of lumpectomy of right breast Onset Date: ~2006 History of lung surgery Onset Date: ~2020 History of tubal ligation Social History: Social History (Last Reviewed 04/07/22 @ 14:17 by Marta Julian) Living Situation History: Household Members: Spouse Housing: Apartment Are you a primary family day carer to a significant other at home: No Do you presently have visiting nurse or other home services: No Alcohol History: Unable to assess alcohol history related to: Unable to respond Alcohol History Details: 1. How often do you have a drink containing alcohol?: b. Monthly or less 2. How many drinks containing alcohol do you have on a typical day when you are drinking?: a. 1 or 2 Tobacco History: Patient Tobacco Use Status: Never used Tobacco Tobacco use type: Cigar Years Smoked: 46 Smoked in Last 30 Days: Yes Second Hand Smoke Exposure: No Substance Use History: Use of substances other than those prescribed or required for medical reasons : Yes Substance Use Type: Marijuana Substance Use Type Other:: 5 mg edibles Last Used Substance Other:: IV heroin 8 years ago Domestic Abuse History: Have you been hit, kicked, punched, or otherwise hurt by someone within the past year? If so, by whom?: No Do you feel safe in your current relationship?: Yes Homicidal Assessment: Do you have thoughts of harming others: None Do you have a plan to hurt others: No Plan Do you have the means to hurt others: No Nutrition Assessment: Recently lost weight without trying: No Occupation Assessmet: service: No Current occupational status: disabled Current occupational exposures/hazards: No Home Medications and Allergies Home Medications Medication Instructions Recorded Confirmed Type buprenorphine 4 mg-naloxone 1 mg 1 strip sublingual DAILY 01/18/22 04/07/22 History sublingual film (Suboxone) diltiazem HCl 180 mg 180 mg PO DAILY 01/18/22 04/07/22 History capsule,extended release 24 hr, controlled (DILT-XR) folic acid 1 mg tablet 1 mg PO DAILY 01/18/22 04/07/22 History metoprolol tartrate 50 1 tab PO DAILY 01/18/22 04/07/22 History mg-hydrochlorothiazide 25 mg tablet milnacipran 50 mg tablet (Savella) 50 mg PO BID 01/18/22 04/07/22 History omeprazole 20 mg capsule,delayed 20 mg PO DAILY@0630 01/18/22 04/07/22 History release paroxetine HCl 20 mg tablet 60 mg PO DAILY 01/18/22 04/07/22 History umeclidinium 62.5 mcg-vilanterol 1 puff inhalation DAILY 01/18/22 04/07/22 History 25 mcg/actuation powdr for inhalation (Anoro Ellipta) cholecalciferol (vitamin D3) 50 50 mcg PO DAILY 02/17/22 04/07/22 History mcg (2,000 unit) tablet (Vitamin D3) dexamethasone 4 mg tablet 8 mg PO BID 02/17/22 04/07/22 History ipratropium 0.5 mg-albuterol 3 mg 3 ml inhalation Q6-8H PRN 02/17/22 04/07/22 History (2.5 mg base)/3 mL nebulization Shortness Of Breath Or Wheezing soln nicotine 21 mg/24 hr daily 1 patch topical DAILY 02/17/22 04/07/22 History transdermal patch ondansetron HCl 8 mg tablet 8 mg PO Q8H PRN Nausea 02/17/22 04/07/22 History simvastatin 20 mg tablet 20 mg PO DAILY 02/17/22 04/07/22 History Allergies Allergy/AdvReac Type Severity Reaction Status Date / Time lisinopril [LISINOPRIL] Allergy Severe SWELLING- Verified 01/15/22 12:39 ANGIOEDEMA codeine [CODEINE] Allergy Intermediate VOMITING/HIVES, Verified 01/15/22 12:39 vomiting, hives Exam Vital signs: Vital Signs Temp 97.8 F 04/07/22 14:14 Pulse 58 04/07/22 14:14 Resp 16 04/07/22 14:14 BP 157/86 H 04/07/22 14:14 Pulse Ox 100 04/07/22 14:14 O2 Del Method Nasal Cannula 04/07/22 14:14 Intake & Output 04/06/22 04/07/22 04/07/22 18:59 06:59 18:59 Other: Weight 88.7 kg Weight in Grams 15278 Weight 88.7 kg BMI result Body Mass Index 30.6 - Constitutional Present: no acute distress - Routine HEENT Exam Head: Present: normal inspection - Routine Neck Exam Absent: lymphadenopathy - Routine Respiratory Exam Present: CTAB. Absent: respiratory distress, rhonchi - Routine Cardiovascular Exam Cardiovascular: Present: RRR, S1, S2 - Routine Abdominal Exam Present: distended, soft. Absent: organomegaly - Routine Extremities Exam Present: pulses intact - Routine Skin Exam Present: intact. Absent: cyanosis Data - Labs CBC & Chem 7: 04/07/22 14:50 04/07/22 14:50 Assessment and Plan Patient Active problem list reviewed?: Yes (1) Bilateral lung cancer Problem details: (RUL lobectomy 07/2019 & LITA wedge 01/2021) Status: Chronic Assessment and plan: 1. This is a pleasant 61-year-old woman with bilateral lung adenocarcinoma. She has been diagnosed with recurrent metastatic lung cancer in the right with bone and brain metastasis in september 2021. She had right upper lobectomy/mediastinal lymphadenectomy on 08/03/2019 at [facility]. Pathology revealed invasive adenocarcinoma, tumor size 1.3 x 0.9 x 0.5 cm, moderately differentiated, tumor invades visceral pleura, no satellite nodules. Vascular invasion present, margins negative. Pathological TNM stage PT2a, pN0, MX. NGS panel negative for for alk rearrangement, ROS1 rearrangement, MET amplification, RET rearrangement and PTEN deletions, KRAS G12C mutation present, MSI stable, PD L1-TPS score 1, HER2 with breast scoring equivocal, stone TRK equivocal. RBM10 and TP53 alterations detected. On 01/21/2021 patient underwent left upper lobe wedge resection and lymph node biopsies. Pathology revealed adenocarcinoma tumor size 1.8 x 1.8 x 1.1 cm. Single focus, G2 moderately differentiated, visceral pleural invasion identified, lymphovascular invasion not identified. Margins negative. Two lymph nodes were examined, negative for carcinoma. Pathological TNM stage pT2a pN0. KRAS mutation Exon 2 ([id number]) positive, BRAF negative, PDL1 1%. EGFR and alk mutations were not tested as they are mutually exclusive if KRAS is present. ( it was sent to [facility] from [facility]). on 11/03/[address]-guided biopsy of right upper lobe mass, pathology -adenocarcinoma, moderately to poorly differentiated consistent with lung primary. PDL expression 1%, HER2 equivocal score 2+. Brain MRI performed 10/29/2021 showed enhancing metastasis in the left cerebellum measuring 3 mm. A 2 mm indeterminate enhancement in the left parietal lobe could be developmental venous anomaly. PET-CT showed FDG avid vertebral lesions in C7 and T7. Patient started on combination therapy with pembrolizumab, carboplatin and pemetrexed on 11/13/2021. She is on denosumab 120 mg subQ monthly for bone metastasis. She has completed 4 cycles. Repeat PET-CT Performed 03/24/2022 showed interval resolution of previously documented right FDG avid airspace disease involving right middle and right lower lobes as well as FDG avid mediastinal lymph nodes. Brain MRI was performed, report not yet available. She will be started on maintenance pembrolizumab. She is unable to tolerate chemotherapy, she developed severe cytopenias requiring transfusion of blood and platelets. Follow-up in 3 weeks. - Time Spent With Patient Time Spent with Patient (in minutes): 15
[2022-04-10] MEDS: Ondansetron ODT 8 MG TAB.RAPDIS TRANSLINGU (11:10)
[2022-04-10] MEDS: Cyanocobalamin (Vitamin B-12) 1,000 MCG/ML VIAL 1000 MCG IM (11:10)
[2022-04-10 11:17] VITALS: BP 117/73; PULSE 68; RESP 18; TEMP 35.9; O2SAT 98; BMI 30.9
--- NOTE | 2022-04-10 12:53 | MHC.HEMONC ---
Pt here for C1D1 Pembrolizumab. Labs drawn earlier in the week reviewed-okay to receive treatment today. Pt states she a cough a frothy sputum and fatigue. States has occasional numbness in hands. Using oxygen at home 2L via [place] continuously. #22 angio inserted in right hand with blood return noted. Pre medicated with zofran. Denosumab SC given in right arm-tolerated well. B-12 IM given in left arm-tolerated well. Pembrolizumab given as ordered-tolerated well. Peripheral IV removed-no edema or redness at site. Discharge packet given with next appointment scheduled. Instructed to call department with any side effects or concerns-verbalizes understanding of info given
[2022-05-01 11:25] LABS: MANUAL DIFF FLAG NO
[2022-05-01 11:28] LABS: Basophils Percent Auto 0.6 % (0-2); Eosinophils Absolute Auto 0.1 X10*3/uL (0.0-0.4); Eosinophils Percent Auto 1.8 % (0-4); Hematocrit 30.2 % (37.0-47.0); Hemoglobin 10.5 g/dl (12.0-16.0); Imm Gran Abs Auto 0.02 X10*3/uL (0.00-0.03); Imm Gran Pct Auto 0.4 % (0.0-0.4); Lymphocytes Absolute Auto 1.2 X10*3/uL (1.2-4.9); Lymphocytes Percent Auto 23.8 % (20-40); Mean Corpuscular HGB Conc 34.8 g/dl (31.0-35.0); Mean Corpuscular Hemoglobin 33.2 pg (27.0-33.0); Mean Corpuscular Volume 95.6 fL (80.0-98.0); Mean Platelet Volume 9.1 fL (9.4-12.3); Monocytes Absolute Auto 0.5 X10*3/uL (0.1-1.2); Monocytes Percent Auto 10.9 % (2-11); Neutrophils Absolute Auto 3.1 x10*3/uL (2.0-8.3); Neutrophils Percent Auto 62.5 % (45-73); Platelet Count 138 X10*3/uL (160-400); Red Blood Count 3.16 X10*6/uL (4.20-5.50); Red Cell Distribution Width 13.8 % (11.0-16.0)
[2022-05-01 11:38] VITALS: BP 105/73; PULSE 77; RESP 20; TEMP 36.3; O2SAT 99; BMI 30.4
[2022-05-01 11:59] LABS: Alanine Aminotransferase 6 U/L (0-31); Albumin Level 4.1 g/dL (3.5-5.0); Alkaline Phosphatase 50 U/L (39-117); Anion Gap 12 (12-20); Aspartate Amino Transferase 17 U/L (5-31); Bilirubin Total 0.5 mg/dL (0.0-1.0); Blood Urea Nitrogen 15 mg/dL (9-16); Calcium 9.4 mg/dL (8.4-10.2); Carbon Dioxide 33 mmol/L (22-29); Chloride 98 mmol/L (96-108); Creatinine Clr Calc Pharmacy 55.3; Estimated Glomerular Filt Rate 45; Glucose Random 118 mg/dL (60-115); Potassium 3.3 mmol/L (3.3-5.1); Sodium 140 mmol/L (135-145); Total Protein 7.2 g/dL (6.5-8.0)
--- NOTE | 2022-05-01 12:26 | PM.HEMONCPN ---
Medical Summary - Medical Summary Date of Service: 05/01/22 Chief complaint: Follow-up and scheduled treatment Medical Summary: Diagnosis: Right upper lobe Wedge resection in July 2019, adenocarcinoma Left lower lobe wedge resection in January 2021 adenocarcinoma She was diagnosed with right upper lobe lung adenocarcinoma and underwent right upper lobectomy/mediastinal lymphadenectomy on 08/03/2019 at [facility]. Pathology revealed invasive adenocarcinoma, tumor size 1.3 x 0.9 x 0.5 cm, moderately differentiated, tumor invades visceral pleura, no satellite nodules. Vascular invasion present, margins negative. Pathological TNM stage PT2a, pN0, MX. Surveillance CT chest with contrast performed 12/26/2020 showed stable postsurgical changes, 2 new/increasing suspicious areas in the right lower lobe nodules. Interval increase in suspicious appearing cavitary left upper lobe nodule. Numerous bilateral small ground-glass nodules. On 01/21/2021 patient underwent left upper lobe wedge resection and lymph node biopsies. Pathology revealed adenocarcinoma tumor size 1.8 x 1.8 x 1.1 cm. Single focus, G2 moderately differentiated, visceral pleural invasion identified, lymphovascular invasion not identified. Margins negative. Two lymph nodes were examined, negative for carcinoma. Pathological TNM stage pT2a pN0. Molecular studies to be obtained from [facility], this was ordered last week. Stage IB cancer without any high-risk features such as lymphovascular invasion. Surveillance imaging with CT chest/abdomen and pelvis performed in September 2021 showed new right lower lobe mass measuring 1.7 x 1.3 cm suspicious for new/metastatic lesion. Sub pleural ground-glass attenuation measuring 1.4 x 1.1 cm similar to previous exam. Second lesion in the right lower lobe posterior basal segment measuring 1.6 x 1.4 cm which is also suspicious. Subcarinal lymph nodes largest measuring 1.3 x 2.1 cm and large pretracheal lymph node measuring 1.5 x 1.5 cm all suspicious for disease recurrence.. CT abdomen showed stable 1.4 cm right adrenal lesion. Extensive fine interstitial markings throughout right lower lobe likely post radiation changes. PET-CT was recommended for further evaluation. Remote history of radiation for her right breast for cancer treatment. PET-CT performed 10/14/21 showed extensive FDG avid consolidation in the right middle lobe, worse than CT scan in September. Inflammatory versus infectious etiology along with malignancy. New FDG avid mediastinal lymphadenopathy suspicious for recurrence or metastatic malignancy. FDG avid vertebral lesions in C7 and T7 suspicious for metastasis. Stable right adrenal nodule showed no FDG activity. Patient started on combination therapy with pembrolizumab, carboplatin and pemetrexed on 11/13/2021. She is on denosumab 120 mg subQ monthly for bone metastasis. Interval History Interval history: Patient is here in follow-up. She is doing okay but reports sinus leg symptoms and congestion. She blows her nose a lot and has facial pain. She denies any shortness of breath, fever or chills. No nausea abdominal discomfort. No headache or dizziness. No focal weakness, numbness or tingling. She is here for scheduled treatment as well. She reports constant fatigue but no significant weight loss. Review of Systems - Constitutional Reports as per HPI, Reports fatigue, Denies fever(s), Reports lack of energy, Denies poor appetite, Denies weight loss - Neurologic Reports weakness PMFSH Medical History: Medical History (Last Reviewed 04/07/22 @ 14:17 by Marta Julian) Bilateral lung cancer Cancer of upper lobe of left lung Onset Date: ~2020 Cancer of upper lobe of right lung Onset Date: ~2019 COPD (chronic obstructive pulmonary disease) Depression GERD (gastroesophageal reflux disease) History of breast cancer Onset Date: ~2006 History of hepatitis C HTN (hypertension) Internal and external bleeding hemorrhoids New onset a-fib Obesity Pancytopenia Pulmonary nodules Smoker Tubular adenoma of colon Family History: Family History (Last Reviewed 04/07/22 @ 14:17 by Marta Julian) Mother History of lung cancer Brother History of lung cancer Maternal Grandmother Breast cancer in female Maternal Aunt Breast cancer in female Daughter Thyroid cancer Surgical History: Surgical History (Last Reviewed 04/07/22 @ 14:17 by Marta Julian) History of anterior colporrhaphy Onset Date: ~2016 History of back surgery Onset Date: ~2011 History of colonoscopy Onset Date: ~2014 History of hemorrhoidectomy Onset Date: ~2019 History of lobectomy of lung Onset Date: ~2019 History of lumpectomy of right breast Onset Date: ~2006 History of lung surgery Onset Date: ~2020 History of tubal ligation Social History: Social History (Last Reviewed 04/07/22 @ 14:17 by Marta Julian) Living Situation History: Household Members: Spouse Housing: Apartment Are you a primary manager medicare marketing to a significant other at home: No Do you presently have visiting nurse or other home services: No Alcohol History: Unable to assess alcohol history related to: Unable to respond Alcohol History Details: 1. How often do you have a drink containing alcohol?: b. Monthly or less 2. How many drinks containing alcohol do you have on a typical day when you are drinking?: a. 1 or 2 Tobacco History: Patient Tobacco Use Status: Never used Tobacco Tobacco use type: Cigar Years Smoked: 46 Smoked in Last 30 Days: Yes Second Hand Smoke Exposure: No Substance Use History: Use of substances other than those prescribed or required for medical reasons: Yes Substance Use Type: Marijuana Substance Use Type Other:: 5 mg edibles Last Used Substance Other:: IV heroin 8 years ago Domestic Abuse History: Have you been hit, kicked, punched, or otherwise hurt by someone within the past year? If so, by whom?: No Do you feel safe in your current relationship?: Yes Homicidal Assessment: Do you have thoughts of harming others: None Do you have a plan to hurt others: No Plan Do you have the means to hurt others: No Nutrition Assessment: Recently lost weight without trying: No Occupation Assessmet: service: No Current occupational status: disabled Current occupational exposures/hazards: No Oncology Screenings - ECOG Performance Status ECOG Performance Status: 1 Home Medications and Allergies Current Medications: Current Medications Cyanocobalamin (Cyanocobalamin (Vitamin B-12) 1,000 Mcg/Ml Vial) 1,000 mcg IM ONCE WALTER Stop: 05/01/22 23:59 Dexamethasone (Dexamethasone 6 Mg Tablet) 12 mg PO ONCE WALTER Stop: 05/01/22 23:59 Diphenhydramine HCl (Diphenhydramine Hcl 25 Mg Capsule) 25 mg PO ONCE WALTER Stop: 05/01/22 23:59 Heparin Sodium (Porcine) (Heparin Sodium,Porcine Flush 500 Unit/5 Ml Syringe) 500 unit IVFLUSH ONCE WALTER Stop: 05/01/22 23:59 Ondansetron HCl (Zofran) 16 mg in 50 mls @ 200 mls/hr IV ONCE WALTER Stop: 05/01/22 23:59 Pegfilgrastim (Pegfilgrastim Onpro 6 Mg/0.6 Ml Syr.W..Inj) 6 mg SUBCUT ONCE WALTER Stop: 05/01/22 23:59 Home Medications Medication Instructions Recorded Confirmed Type buprenorphine 4 mg-naloxone 1 mg 1 strip sublingual DAILY 01/18/22 04/07/22 History sublingual film (Suboxone) diltiazem HCl 180 mg 180 mg PO DAILY 01/18/22 04/07/22 History capsule,extended release 24 hr, controlled (DILT-XR) folic acid 1 mg tablet 1 mg PO DAILY 01/18/22 04/07/22 History metoprolol tartrate 50 1 tab PO DAILY 01/18/22 04/07/22 History mg-hydrochlorothiazide 25 mg tablet milnacipran 50 mg tablet (Savella) 50 mg PO BID 01/18/22 04/07/22 History omeprazole 20 mg capsule,delayed 20 mg PO DAILY@0630 01/18/22 04/07/22 History release paroxetine HCl 20 mg tablet 60 mg PO DAILY 01/18/22 04/07/22 History umeclidinium 62.5 mcg-vilanterol 1 puff inhalation DAILY 01/18/22 04/07/22 History 25 mcg/actuation powdr for inhalation (Anoro Ellipta) cholecalciferol (vitamin D3) 50 50 mcg PO DAILY 02/17/22 04/07/22 History mcg (2,000 unit) tablet (Vitamin D3) dexamethasone 4 mg tablet 8 mg PO BID 02/17/22 04/07/22 History ipratropium 0.5 mg-albuterol 3 mg 3 ml inhalation Q6-8H PRN 02/17/22 04/07/22 History (2.5 mg base)/3 mL nebulization Shortness Of Breath Or Wheezing soln nicotine 21 mg/24 hr daily 1 patch topical DAILY 02/17/22 04/07/22 History transdermal patch ondansetron HCl 8 mg tablet 8 mg PO Q8H PRN Nausea 02/17/22 04/07/22 History simvastatin 20 mg tablet 20 mg PO DAILY 02/17/22 04/07/22 History Allergies Allergy/AdvReac Type Severity Reaction Status Date / Time lisinopril [LISINOPRIL] Allergy Severe SWELLING- Verified 04/10/22 11:23 ANGIOEDEMA codeine [CODEINE] Allergy Intermediate VOMITING/HIVES, Verified 04/10/22 11:23 vomiting, hives Exam Vital signs: Vital Signs Temp 97.4 F 01/20/23 11:38 Pulse 77 05/01/22 11:38 Resp 20 05/01/22 11:38 BP 105/73 05/01/22 11:38 Pulse Ox 99 05/01/22 11:38 O2 Del Method 05/01/22 11:38 O2 Flow Rate 2 05/01/22 11:38 Intake & Output 04/30/22 05/01/22 05/01/22 18:59 06:59 18:59 Other: Weight 88.3 kg Upper Tract Weight in Grams 30055 Weight 88.3 kg BMI result Body Mass Index 30.4 - Constitutional Present: no acute distress - Routine HEENT Exam Head: Present: normal inspection - Routine Neck Exam Absent: lymphadenopathy - Routine Respiratory Exam Present: CTAB. Absent: respiratory distress, rhonchi - Routine Cardiovascular Exam Cardiovascular: Present: RRR, S1, S2 - Routine Abdominal Exam Present: distended, soft. Absent: organomegaly - Routine Extremities Exam Present: pulses intact - Routine Skin Exam Present: intact. Absent: cyanosis Data - Labs CBC & Chem 7: 05/01/22 11:15 05/01/22 11:13 Assessment and Plan Patient Active problem list reviewed?: Yes (1) Bilateral lung cancer Problem details: (RUL lobectomy 07/2019 & LITA wedge 01/2021) Status: Chronic Assessment and plan: 1. This is a pleasant 61-year-old woman with bilateral lung adenocarcinoma. She has been diagnosed with recurrent metastatic lung cancer in the right with bone and brain metastasis in september 2021. She had right upper lobectomy/mediastinal lymphadenectomy on 08/03/2019 at [facility]. Pathology revealed invasive adenocarcinoma, tumor size 1.3 x 0.9 x 0.5 cm, moderately differentiated, tumor invades visceral pleura, no satellite nodules. Vascular invasion present, margins negative. Pathological TNM stage PT2a, pN0, MX. NGS panel negative for for alk rearrangement, ROS1 rearrangement, MET amplification, RET rearrangement and PTEN deletions, KRAS G12C mutation present, MSI stable, PD L1-TPS score 1, HER2 with breast scoring equivocal, stone TRK equivocal. RBM10 and TP53 alterations detected. On 01/21/2021 patient underwent left upper lobe wedge resection and lymph node biopsies. Pathology revealed adenocarcinoma tumor size 1.8 x 1.8 x 1.1 cm. Single focus, G2 moderately differentiated, visceral pleural invasion identified, lymphovascular invasion not identified. Margins negative. Two lymph nodes were examined, negative for carcinoma. Pathological TNM stage pT2a pN0. KRAS mutation Exon 2 ([id number]) positive, BRAF negative, PDL1 1%. EGFR and alk mutations were not tested as they are mutually exclusive if KRAS is present. ( it was sent to [facility] from [facility]). On 11/03/[address]-guided biopsy of right upper lobe mass, pathology -adenocarcinoma, moderately to poorly differentiated consistent with lung primary. PDL expression 1%, HER2 equivocal score 2+. Patient started on combination therapy with pembrolizumab, carboplatin and pemetrexed on 11/13/2021. She is on denosumab 120 mg subQ monthly for bone metastasis. She has completed 4 cycles. Repeat PET-CT Performed 03/24/2022 showed interval resolution of previously documented right FDG avid airspace disease involving right middle and right lower lobes as well as FDG avid mediastinal lymph nodes. Brain MRI from 03/2022 showed 3 mm enhancement on the left parietal lobe and 2 mm enhancement in the right parietal lobe concerning for small metastatic foci. Large bilateral mastoid effusions present. In view of recurrent small brain lesions, she is being started on pemetrexed along with pembrolizumab as maintenance therapy. Neulasta will be administered because of neutropenic fever in the past. 2. Sinus symptoms with large bilateral mastoid effusions. She has been recommended decongestant and follow-up with PCP. Follow-up in 3 weeks. - Time Spent With Patient Time Spent with Patient (in minutes): 15
[2022-05-01] MEDS: dexAMETHasone 6 MG TABLET 12 MG PO (12:44)
[2022-05-01] MEDS: diphenhydrAMINE HCL 25 MG CAPSULE PO (12:45)
--- NOTE | 2022-05-01 13:24 | MHC.HEMONC ---
blood work stable ok for treatment. pre dulalapemetrexed and onpro added because blood has been good. mc working on extending pembrolizumab pa. no auth needed for onpro. ok for b12 to be given every tx
[2022-05-01] MEDS: Cyanocobalamin (Vitamin B-12) 1,000 MCG/ML VIAL 1000 MCG IM (13:35)
[2022-05-01] MEDS: PEMETREXED DISODIUM IV (14:28)
[2022-05-01] MEDS: SODIUM CHLORIDE 0.9% IV (14:28)
--- NOTE | 2022-05-01 14:50 | HO.HEMONCPA ---
NO PA REQUIRED FOR Neulasta (pegfilgrastim) ON-PRO PER [facility] WEBS[facility] ON 05/01/22 AT 2:15PM.
[2022-05-01] MEDS: Pegfilgrastim Onpro 6 MG/0.6 ML SYR.W..INJ SUBCUT (14:55)
--- NOTE | 2022-05-05 16:38 | HO.HEMONCPA ---
Addendum entered by Sandra Whitlock 05/07/22 12:10: [id number]. AUTH#[id number]. DOS- 05/06/2022 to 05/06/2023. DOCUMENT SCANNED IN THE CHART Original Note: [facility]TI REQUEST for Pembrolizumab [facility]:[id number] CONTINUATION OF THERAPY REQUESTED. AWAITING DECISION
--- NOTE | 2022-05-11 10:56 | MHC.HEMONC ---
Triage call from pt. She states she has hives on her torso, front and back, and her head and ears. States is very itchy, and is putting alcohol for the itch. She states she does not have any benadryl, and can't afford to buy any until 05/13 when she receives her SS check. Spoke with Dr Samuels, and pt was added to the schedule for exam on 05/12. She was unable to get a ride to come in today.
[2022-05-12] MEDS: diphenhydrAMINE HCL 25 MG CAPSULE PO (12:59)
[2022-05-12 13:11] VITALS: BP 154/86; PULSE 77; RESP 20; TEMP 35.7; O2SAT 98
[2022-05-12 13:46] LABS: Alanine Aminotransferase 10 U/L (0-31); Albumin Level 4.2 g/dL (3.5-5.0); Alkaline Phosphatase 64 U/L (39-117); Anion Gap 18 (12-20); Aspartate Amino Transferase 20 U/L (5-31); Bilirubin Total 0.7 mg/dL (0.0-1.0); Blood Urea Nitrogen 17 mg/dL (9-16); Calcium 8.4 mg/dL (8.4-10.2); Carbon Dioxide 27 mmol/L (22-29); Chloride 96 mmol/L (96-108); Creatinine Clr Calc Pharmacy 52.6; Estimated Glomerular Filt Rate 42; Glucose Random 190 mg/dL (60-115); Sodium 138 mmol/L (135-145); Total Protein 7.5 g/dL (6.5-8.0)
--- NOTE | 2022-05-12 14:15 | P.PNHO-ONC_ITS ---
Medical Summary - Medical Summary Date of Service: 05/12/22 Chief complaint: Rash/pruritus Medical Summary: Diagnosis: Right upper lobe Wedge resection in July 2019, adenocarcinoma Left lower lobe wedge resection in January 2021 adenocarcinoma She was diagnosed with right upper lobe lung adenocarcinoma and underwent right upper lobectomy/mediastinal lymphadenectomy on 08/03/2019 at [facility]. Pathology revealed invasive adenocarcinoma, tumor size 1.3 x 0.9 x 0.5 cm, moderately differentiated, tumor invades visceral pleura, no satellite nodules. Vascular invasion present, margins negative. Pathological TNM stage PT2a, pN0, MX. Surveillance CT chest with contrast performed 12/26/2020 showed stable postsurgical changes, 2 new/increasing suspicious areas in the right lower lobe nodules. Interval increase in suspicious appearing cavitary left upper lobe nodule. Numerous bilateral small ground-glass nodules. On 01/21/2021 patient underwent left upper lobe wedge resection and lymph node biopsies. Pathology revealed adenocarcinoma tumor size 1.8 x 1.8 x 1.1 cm. Single focus, G2 moderately differentiated, visceral pleural invasion identifi ed, lymphovascular invasion not identified. Margins negative. Two lymph nodes were examined, negative for carcinoma. Pathological TNM stage pT2a pN0. Molecular studies to be obtained from [facility], this was ordered last week. Stage IB cancer without any high-risk features such as lymphovascular invasion. Surveillance imaging with CT chest/abdomen and pelvis performed in September 2021 showed new right lower lobe mass measuring 1.7 x 1.3 cm suspicious for new/metastatic lesion. Sub pleural ground-glass attenuation measuring 1.4 x 1.1 cm similar to previous exam. Second lesion in the right lower lobe posterior basal segment measuring 1.6 x 1.4 cm which is also suspicious. Subcarinal lymph nodes largest measuring 1.3 x 2.1 cm and large pretracheal lymph node measuring 1.5 x 1.5 cm all suspicious for disease recurrence.. CT abdomen showed stable 1.4 cm right adrenal lesion. Extensive fine interstitial markings throughout right lower lobe likely post radiation changes. PET-CT was recommended for further evaluation. Remote history of radiation for her right breast for cancer treatment. PET-CT performed 10/14/21 showed extensive FDG avid consolidation in the right mid dle lobe, worse than CT scan in September. Inflammatory versus infectious etiology along with malignancy. New FDG avid mediastinal lymphadenopathy suspicious for recurrence or metastatic malignancy. FDG avid vertebral lesions in C7 and T7 suspicious for metastasis. Stable right adrenal nodule showed no FDG activity. Patient started on combination therapy with pembrolizumab, carboplatin and pemetrexed on 11/13/2021. She is on denosumab 120 mg subQ monthly for bone metastasis. Interval History Interval history: Patient is here in follow-up. She says she developed hives and rash involving her trunk and back a week after she received chemotherapy. It is all resolved now. She was advised to take Benadryl which helped. She denies any nausea or emesis. No fever or chills. She has not been taking calcium supplementation. Review of Systems - Constitutional Reports as per HPI, Denies fatigue, Denies lack of energy, Denies malaise, Denies night sweats - Cardiovascular Reports no additional cardiovascular complaints - Respiratory Reports no additional respiratory complaints - Gastrointestinal Reports no additional gastrointestinal complaints - Neurologic Reports weakness PMFSH Medical History: Medical History (Last Reviewed 04/07/22 @ 14:17 by Marta Julian) Bilateral lung cancer Cancer of upper lobe of left lung Onset Date: ~2020 Cancer of upper lobe of right lung Onset Date: ~2019 COPD (chronic obstructive pulmonary disease) Depression GERD (gastroesophageal reflux disease) History of breast cancer Onset Date: ~2006 History of hepatitis C HTN (hypertension) Internal and external bleeding hemorrhoids New onset a-fib Obesity Pancytopenia Pulmonary nodules Smoker Tubular adenoma of colon Family History: Family History (Last Reviewed 04/07/22 @ 14:17 by Marta Julian) Mother History of lung cancer Brother History of lung cancer Maternal Grandmother Breast cancer in female Maternal Aunt Breast cancer in female Daughter Thyroid cancer Surgical History: Surgical History (Last Reviewed 04/07/22 @ 14:17 by Marta Julian) History of anterior colporrhaphy Onset Date: ~2016 History of back surgery Onset Date: ~2011 History of colonoscopy Onset Date: ~2014 History of hemorrhoidectomy Onset Date: ~2019 History of lobectomy of lung Onset Date: ~2019 History of lumpectomy of right breast Onset Date: ~2006 History of lung surgery Onset Date: ~2020 History of tubal ligation Social History: Social History (Last Reviewed 04/07/22 @ 14:17 by Marta Julian) Living Situation History: Household Members: Spouse Housing: Apartment Are you a primary skin care therapist to a significant other at home: No Do you presently have visiting nurse or other home services: No Alcohol History: Unable to assess alcohol history related to: Unable to respond Alcohol History Details: 1. How often do you have a drink containing alcohol?: b. Monthly or less 2. How many drinks containing alcohol do you have on a typical day when you are drinking?: a. 1 or 2 Tobacco History: Patient Tobacco Use Status: Never used Tobacco Tobacco use type: Cigar Years Smoked: 46 Smoked in Last 30 Days: Yes Second Hand Smoke Exposure: No Substance Use History: Use of substances other than those prescribed or required for medical reasons : Yes Substance Use Type: Marijuana Substance Use Type Other:: 5 mg edibles Last Used Substance Other:: IV heroin 8 years ago Domestic Abuse History: Have you been hit, kicked, punched, or otherwise hurt by someone within the past year? If so, by whom?: No Do you feel safe in your current relationship?: Yes Homicidal Assessment: Do you have thoughts of harming others: None Do you have a plan to hurt others: No Plan Do you have the means to hurt others: No Nutrition Assessment: Recently lost weight without trying: No Occupation Assessmet: service: No Current occupational status: disabled Current occupational exposures/hazards: No Oncology Screenings - ECOG Performance Status ECOG Performance Status: 0 Home Medications and Allergies Home Medications Medication Instructions Recorded Confirmed Type buprenorphine 4 mg-naloxone 1 mg 1 strip sublingual DAILY 01/18/22 04/07/22 History sublingual film (Suboxone) diltiazem HCl 180 mg 180 mg PO DAILY 01/18/22 04/07/22 History capsule,extended release 24 hr, controlled (DILT-XR) folic acid 1 mg tablet 1 mg PO DAILY 01/18/22 04/07/22 History metoprolol tartrate 50 1 tab PO DAILY 01/18/22 04/07/22 History mg-hydrochlorothiazide 25 mg tablet milnacipran 50 mg tablet (Savella) 50 mg PO BID 01/18/22 04/07/22 History omeprazole 20 mg capsule,delayed 20 mg PO DAILY@0630 01/18/22 04/07/22 History release paroxetine HCl 20 mg tablet 60 mg PO DAILY 01/18/22 04/07/22 History umeclidinium 62.5 mcg-vilanterol 1 puff inhalation DAILY 01/18/22 04/07/22 History 25 mcg/actuation powdr for inhalation (Anoro Ellipta) cholecalciferol (vitamin D3) 50 50 mcg PO DAILY 02/17/22 04/07/22 History mcg (2,000 unit) tablet (Vitamin D3) dexamethasone 4 mg tablet 8 mg PO BID 02/17/22 04/07/22 History ipratropium 0.5 mg-albuterol 3 mg 3 ml inhalation Q6-8H PRN 02/17/22 04/07/22 History (2.5 mg base)/3 mL nebulization Shortness Of Breath Or Wheezing soln nicotine 21 mg/24 hr daily 1 patch topical DAILY 02/17/22 04/07/22 History transdermal patch ondansetron HCl 8 mg tablet 8 mg PO Q8H PRN Nausea 02/17/22 04/07/22 History simvastatin 20 mg tablet 20 mg PO DAILY 02/17/22 04/07/22 History Allergies Allergy/AdvReac Type Severity Reaction Status Date / Time lisinopril [LISINOPRIL] Allergy Severe SWELLING- Verified 04/10/22 11:23 ANGIOEDEMA codeine [CODEINE] Allergy Intermediate VOMITING/HIVES, Verified 04/10/22 11:23 vomiting, hives Exam Vital signs: Vital Signs Temp 96.3 F L 05/12/22 13:11 Pulse 77 05/12/22 13:11 Resp 20 05/12/22 13:11 BP 154/86 H 05/12/22 13:11 Pulse Ox 98 05/12/22 13:11 O2 Del Method 05/12/22 13:11 O2 Flow Rate 2 05/12/22 13:11 Weight 88.3 kg BMI result Body Mass Index 30.4 - Constitutional Present: no acute distress - Routine HEENT Exam Head: Present: normal inspection - Routine Neck Exam Absent: lymphadenopathy - Routine Respiratory Exam Present: CTAB. Absent: respiratory distress, rhonchi - Routine Cardiovascular Exam Cardiovascular: Present: RRR, S1, S2 - Routine Abdominal Exam Present: distended, soft. Absent: organomegaly - Routine Extremities Exam Present: pulses intact - Routine Skin Exam Present: intact. Absent: cyanosis Data - Labs CBC & Chem 7: 05/01/22 11:15 05/12/22 12:40 Assessment and Plan Patient Active problem list reviewed?: Yes (1) Bilateral lung cancer Problem details: (RUL lobectomy 07/2019 & LITA wedge 01/2021) Status: Chronic Assessment and plan: 1. This is a pleasant 61-year-old woman with bilateral lung adenocarcinoma. She has been diagnosed with recurrent metastatic lung cancer in the right with bone and brain metastasis in september 2021. She had right upper lobectomy/mediastinal lymphadenectomy on 08/03/2019 at [facility]. Pathology revealed invasive adenocarcinoma, tumor size 1.3 x 0.9 x 0.5 cm, moderately differentiated, tumor invades visceral pleura, no satellite nodules. Vascular invasion present, margins negative. Pathological TNM stage PT2a, pN0, MX. NGS panel negative for for alk rearrangement, ROS1 rearrangement, MET amplification, RET rearrangement and PTEN deletions, KRAS G12C mutation present, MSI stable, PD L1-TPS score 1, HER2 with breast scoring equivocal, stone TRK equivocal. RBM10 and TP53 alterations detected. On 01/21/2021 patient underwent left upper lobe wedge resection and lymph node biopsies. Pathology revealed adenocarcinoma tumor size 1.8 x 1.8 x 1.1 cm. Single focus, G2 moderately differentiated, visceral pleural invasion identified, lymphovascular invasion not identified. Margins negative. Two lymph nodes were examined, negative for carcinoma. Pathological TNM stage pT2a pN0. KRAS mutation Exon 2 ([id number]) positive, BRAF negative, PDL1 1%. EGFR and alk mutations were not tested as they are mutually exclusive if KRAS is present. ( it was sent to [facility] from [facility]). On 11/03/[address]-guided biopsy of right upper lobe mass, pathology -adenocarcinoma, moderately to poorly differentiated consistent with lung primary. PDL expression 1%, HER2 equivocal score 2+. Patient started on combination therapy with pembrolizumab, carboplatin and pemetrexed on 11/13/2021. She is on denosumab 120 mg subQ monthly for bone metastasis. She has completed 4 cycles. Repeat PET-CT Performed 03/24/2022 showed interval resolution of previously documented right FDG avid airspace disease involving right middle and right lower lobes as well as FDG avid mediastinal lymph nodes. Brain MRI from 03/2022 showed 3 mm enhancement on the left parietal lobe and 2 mm enhancement in the right parietal lobe concerning for small metastatic foci. Large bilateral mastoid effusions present. She is now on pemetrexed along with pembrolizumab as maintenance therapy. Neulasta will be administered because of neutropenic fever in the past. 2. Rash/pruritus, this happened a week after treatment. Could be medication but also exacerbated by dry skin and weather. Patient was advised moisturizing. If the rash recurs after next treatment she will need more aggressive antihistamines for premedications. 3. Bone metastasis. She is on denosumab. She is has been noncompliant calcium she was advised to take 600 mg calcium b.i.d.. Follow-up in 3 weeks. - Time Spent With Patient Time Spent with Patient (in minutes): 15
--- NOTE | 2022-05-12 14:18 | MHC.HEMONC ---
Addendum entered by Anahi Chun RN 05/12/22 14:51: Potassium level 3.0-Dr Samuels aware-pt instructed to eat one banana a day-verbalizes understanding to information given Original Note: Pt here for monthly denosumab injection-MATTI boland 11/16/22. Labs drawn by panel lay up worker-specimen to lab. Pt states she is itchy all over-scratches noted on body-no rash.No hives noted on body. Dr Samuels notified of itch-25 mg benadryl given. Calcium level 8.4 today-reported to Dr Samuels. Provider into see pt-plan to hold denosumab today. Pt to receive denosumab q [address] Samuels moving forward. Pt to start taking calcium 500mg twice a day and use cerave cream daily for itchy dry skin-instructions given to pt-verbalizes understanding of information given. Declines discharge packet-calendar given
[2022-05-22 11:06] LABS: MANUAL DIFF FLAG NO
[2022-05-22 11:13] LABS: Basophils Percent Auto 0.3 % (0-2); Eosinophils Percent Auto 0.7 % (0-4); Hematocrit 25.8 % (37.0-47.0); Hemoglobin 8.9 g/dl (12.0-16.0); Imm Gran Abs Auto 0.06 X10*3/uL (0.00-0.03); Lymphocytes Absolute Auto 1.2 X10*3/uL (1.2-4.9); Lymphocytes Percent Auto 20.7 % (20-40); Mean Corpuscular HGB Conc 34.5 g/dl (31.0-35.0); Mean Corpuscular Volume 95.6 fL (80.0-98.0); Mean Platelet Volume 10.3 fL (9.4-12.3); Monocytes Percent Auto 16.5 % (2-11); Neutrophils Absolute Auto 3.6 x10*3/uL (2.0-8.3); Neutrophils Percent Auto 60.8 % (45-73); Red Cell Distribution Width 12.8 % (11.0-16.0); White Blood Count 5.9 X10*3/uL (4.8-10.8)
[2022-05-22 11:14] LABS: Platelet Count 92 X10*3/uL (160-400)
[2022-05-22 11:29] LABS: Alanine Aminotransferase 10 U/L (0-31); Alkaline Phosphatase 60 U/L (39-117); Anion Gap 16 (12-20); Aspartate Amino Transferase 18 U/L (5-31); Bilirubin Total 0.4 mg/dL (0.0-1.0); Blood Urea Nitrogen 14 mg/dL (9-16); Calcium 8.9 mg/dL (8.4-10.2); Carbon Dioxide 32 mmol/L (22-29); Chloride 99 mmol/L (96-108); Creatinine Clr Calc Pharmacy 57.5; Estimated Glomerular Filt Rate 47; Glucose Random 111 mg/dL (60-115); Potassium 3.3 mmol/L (3.3-5.1); Sodium 144 mmol/L (135-145); Total Protein 7.1 g/dL (6.5-8.0)
[2022-05-22 11:33] VITALS: BP 146/92; PULSE 65; RESP 18; TEMP 36; O2SAT 98; BMI 30.3
[2022-05-22] MEDS: ondansetron HCL 16 MG in 0.9 % Sodium Chloride 50 ML 232 MG IV (12:58)
[2022-05-22] MEDS: dexAMETHasone 6 MG TABLET 12 MG PO (13:01)
[2022-05-22] MEDS: diphenhydrAMINE HCL 25 MG CAPSULE PO (13:03)
[2022-05-22] MEDS: PEMETREXED DISODIUM IV (14:32)
[2022-05-22] MEDS: SODIUM CHLORIDE 0.9% IV (14:32)
[2022-05-22] MEDS: Pegfilgrastim Onpro 6 MG/0.6 ML SYR.W..INJ SUBCUT (15:19)
--- NOTE | 2022-05-22 15:58 | MHC.HEMONC ---
Here for C8 D1 Pembro/Pemetrexed. Labs drawn. Pt states she feels good, except she has been having pain to top of right ankle that travels up her clemente bone to her knee. No redness or swelling noted. Hurts to touch. Denies pain with walking. Dr Hughes, covering, notified. Pt takes motrin for pain. Labs reviewed by Dr Hughes and pt ok for treatment. H&H 8.9/25.8, platelet count 92, ANC 3.6. Will come 06/25 for labs. Premeds given as ordered. Treatment done and tolerated well. Neulasta onpro placed right arm. Denosumab 120mg given left arm. Calendar given, departure packet given. Pt departed unit. O2 on 2L nasal canula continuously.
[2022-05-28 11:15] LABS: Hematocrit 25.4 % (37.0-47.0); Hemoglobin 8.8 g/dl (12.0-16.0); Mean Corpuscular HGB Conc 34.6 g/dl (31.0-35.0); Mean Corpuscular Hemoglobin 32.8 pg (27.0-33.0); Mean Corpuscular Volume 94.8 fL (80.0-98.0); Mean Platelet Volume 9.7 fL (9.4-12.3); Platelet Count 91 X10*3/uL (160-400); Red Blood Count 2.68 X10*6/uL (4.20-5.50); Red Cell Distribution Width 13.1 % (11.0-16.0); WBC ABN SCTR FOR CBC 1
[2022-05-28 11:38] LABS: Alanine Aminotransferase 15 U/L (0-31); Alkaline Phosphatase 59 U/L (39-117); Anion Gap 19 (12-20); Aspartate Amino Transferase 20 U/L (5-31); Blood Urea Nitrogen 38 mg/dL (9-16); Calcium 8.8 mg/dL (8.4-10.2); Carbon Dioxide 29 mmol/L (22-29); Chloride 98 mmol/L (96-108); Creatinine Clr Calc Pharmacy 50.2; Estimated Glomerular Filt Rate 40; Glucose Random 117 mg/dL (60-115); Potassium 3.6 mmol/L (3.3-5.1); Sodium 142 mmol/L (135-145)
[2022-05-28 11:59] LABS: Atypical Lymphs Percent Manual 1 % (0-6); Band Neutrophils Percent 3 % (3-5); Basophils Percent Manual 1 % (0-2); Eosinophils Percent Manual 3 % (0-4); Lymphocytes Percent Manual 48 % (20-40); Monocytes Percent Manual 7 % (2-11); Neutrophils Percent Manual 37 % (45-73)
[2022-05-28 12:02] LABS: Acanthocytes 1+ (0-2) /OIF; Microcytosis 2+ (15-30) /OIF; Ovalocytes 1+ (5-14) /OIF; Platelet Estimate DECREASED (NORMAL); Platelet Morphology Comment NORMAL; RBC Morphology NOTED; Tear Drop Cells 2+ (3-5) /OIF
[2022-05-28 12:03] LABS: Lymphocytes Absolute Manual 0.8 X10*3/uL (1.2-4.9); Monocytes Absolute Manual 0.1 X10*3/uL (0.1-1.2); Neutrophils Absolute Manual 0.6 X10*3/uL (2.0-8.3); White Blood Count 1.6 X10*3/uL (4.8-10.8)
--- NOTE | 2022-05-28 14:40 | MHC.HEMONC ---
Pt here for labs. Labs were drawn and results reviewed. HGB 8.8 WBC 1.6, no transfusion needed. Pt did report to that she had a sore throat to Anahi MUÑIZ. Pt departed.
[2022-05-29 15:17] VITALS: BP 154/74; PULSE 95; RESP 15; TEMP 36.5; O2SAT 100; BMI 30.4
[2022-05-29 15:21] VITALS: BMI 30.4
--- NOTE | 2022-05-29 15:26 | PM.HEMONCPN ---
Medical Summary - Medical Summary Date of Service: 05/29/22 Chief complaint: Follow up Medical Summary: Diagnosis: Right upper lobe Wedge resection in July 2019, adenocarcinoma Left lower lobe wedge resection in January 2021 adenocarcinoma She was diagnosed with right upper lobe lung adenocarcinoma and underwent right upper lobectomy/mediastinal lymphadenectomy on 08/03/2019 at [facility]. Pathology revealed invasive adenocarcinoma, tumor size 1.3 x 0.9 x 0.5 cm, moderately differentiated, tumor invades visceral pleura, no satellite nodules. Vascular invasion present, margins negative. Pathological TNM stage PT2a, pN0, MX. Surveillance CT chest with contrast performed 12/26/2020 showed stable postsurgical changes, 2 new/increasing suspicious areas in the right lower lobe nodules. Interval increase in suspicious appearing cavitary left upper lobe nodule. Numerous bilateral small ground-glass nodules. On 01/21/2021 patient underwent left upper lobe wedge resection and lymph node biopsies. Pathology revealed adenocarcinoma tumor size 1.8 x 1.8 x 1.1 cm. Single focus, G2 moderately differentiated, visceral pleural invasion identified, lymphovascular invasion not identified. Margins negative. Two lymph nodes were examined, negative for carcinoma. Pathological TNM stage pT2a pN0. Molecular studies to be obtained from [facility], this was ordered last week. Stage IB cancer without any high-risk features such as lymphovascular invasion. Surveillance imaging with CT chest/abdomen and pelvis performed in September 2021 showed new right lower lobe mass measuring 1.7 x 1.3 cm suspicious for new/metastatic lesion. Sub pleural ground-glass attenuation measuring 1.4 x 1.1 cm similar to previous exam. Second lesion in the right lower lobe posterior basal segment measuring 1.6 x 1.4 cm which is also suspicious. Subcarinal lymph nodes largest measuring 1.3 x 2.1 cm and large pretracheal lymph node measuring 1.5 x 1.5 cm all suspicious for disease recurrence.. CT abdomen showed stable 1.4 cm right adrenal lesion. Extensive fine interstitial markings throughout right lower lobe likely post radiation changes. PET-CT was recommended for further evaluation. Remote history of radiation for her right breast for cancer treatment. PET-CT performed 10/14/21 showed extensive FDG avid consolidation in the right middle lobe, worse than CT scan in September. Inflammatory versus infectious etiology along with malignancy. New FDG avid mediastinal lymphadenopathy suspicious for recurrence or metastatic malignancy. FDG avid vertebral lesions in C7 and T7 suspicious for metastasis. Stable right adrenal nodule showed no FDG activity. Patient started on combination therapy with pembrolizumab, carboplatin and pemetrexed on 11/13/2021. She is on denosumab 120 mg subQ monthly for bone metastasis. Interval History Interval history: Patient is here in follow-up. She is doing better overall. She does feel weak and tired especially for a week after chemotherapy but this is gradually getting better. She denies any headache or dizziness. No nausea or emesis. No abdominal pain or diarrhea. No leg swelling. Hives have resolved and there is no skin rash at this time. Review of Systems - Constitutional Reports as per HPI, Denies lack of energy, Denies malaise, Denies weight loss - Cardiovascular Reports no additional cardiovascular complaints - Respiratory Reports no additional respiratory complaints - Gastrointestinal Reports no additional gastrointestinal complaints - Neurologic Reports weakness [facility] Medical History: Medical History (Last Reviewed 05/29/22 @ 15:20 by Marta Julian) Bilateral lung cancer Cancer of upper lobe of left lung Onset Date: ~2020 Cancer of upper lobe of right lung Onset Date: ~2019 COPD (chronic obstructive pulmonary disease) Depression GERD (gastroesophageal reflux disease) History of breast cancer Onset Date: ~2006 History of hepatitis C HTN (hypertension) Internal and external bleeding hemorrhoids New onset a-fib Obesity Pancytopenia Pulmonary nodules Smoker Tubular adenoma of colon Family History: Family History (Last Reviewed 05/29/22 @ 15:20 by Marta Julian) Mother History of lung cancer Brother History of lung cancer Maternal Grandmother Breast cancer in female Maternal Aunt Breast cancer in female Daughter Thyroid cancer Surgical History: Surgical History (Last Reviewed 05/29/22 @ 15:20 by Marta Julian) History of anterior colporrhaphy Onset Date: ~2017 History of back surgery Onset Date: ~2011 History of colonoscopy Onset Date: ~2014 History of hemorrhoidectomy Onset Date: ~2019 History of lobectomy of lung Onset Date: ~2019 History of lumpectomy of right breast Onset Date: ~2006 History of lung surgery Onset Date: ~2020 History of tubal ligation Social History: Social History (Last Reviewed 05/29/22 @ 15:20 by Marta Julian) Living Situation History: Household Members: Spouse Housing: Apartment Are you a primary care administrative tech to a significant other at home: No Do you presently have visiting nurse or other home services: No Alcohol History: Unable to assess alcohol history related to: Unable to respond Alcohol History Details: 1. How often do you have a drink containing alcohol?: b. Monthly or less 2. How many drinks containing alcohol do you have on a typical day when you are drinking?: a. 1 or 2 Tobacco History: Patient Tobacco Use Status: Never used Tobacco Tobacco use type: Cigar Years Smoked: 46 Smoked in Last 30 Days: Yes Second Hand Smoke Exposure: No Substance Use History: Use of substances other than those prescribed or required for medical reasons: Yes Substance Use Type: Marijuana Substance Use Type Other:: 5 mg edibles Last Used Substance Other:: IV heroin 8 years ago Domestic Abuse History: Have you been hit, kicked, punched, or otherwise hurt by someone within the past year? If so, by whom?: No Do you feel safe in your current relationship?: Yes Homicidal Assessment: Do you have thoughts of harming others: None Do you have a plan to hurt others: No Plan Do you have the means to hurt others: No Nutrition Assessment: Recently lost weight without trying: No Occupation Assessmet: service: No Current occupational status: disabled Current occupational exposures/hazards: No Oncology Screenings - ECOG Performance Status ECOG Performance Status: 1 Home Medications and Allergies Home Medications Medication Instructions Recorded Confirmed Type buprenorphine 4 mg-naloxone 1 mg 1 strip sublingual DAILY 01/18/22 05/29/22 History sublingual film (Suboxone) diltiazem HCl 180 mg 180 mg PO DAILY 01/18/22 05/29/22 History capsule,extended release 24 hr, controlled (DILT-XR) folic acid 1 mg tablet 1 mg PO DAILY 01/18/22 05/29/22 History metoprolol tartrate 50 1 tab PO DAILY 01/18/22 05/29/22 History mg-hydrochlorothiazide 25 mg tablet milnacipran 50 mg tablet (Savella) 50 mg PO BID 01/18/22 05/29/22 History omeprazole 20 mg capsule,delayed 20 mg PO DAILY@0630 01/18/22 05/29/22 History release paroxetine HCl 20 mg tablet 60 mg PO DAILY 01/18/22 05/29/22 History umeclidinium 62.5 mcg-vilanterol 1 puff inhalation DAILY 01/18/22 05/29/22 History 25 mcg/actuation powdr for inhalation (Anoro Ellipta) cholecalciferol (vitamin D3) 50 50 mcg PO DAILY 02/17/22 05/29/22 History mcg (2,000 unit) tablet (Vitamin D3) dexamethasone 4 mg tablet 8 mg PO BID 02/17/22 05/29/22 History ipratropium 0.5 mg-albuterol 3 mg 3 ml inhalation Q6-8H PRN 02/17/22 05/29/22 History (2.5 mg base)/3 mL nebulization Shortness Of Breath Or Wheezing soln nicotine 21 mg/24 hr daily 1 patch topical DAILY 02/17/22 05/29/22 History transdermal patch ondansetron HCl 8 mg tablet 8 mg PO Q8H PRN Nausea 02/17/22 05/29/22 History simvastatin 20 mg tablet 20 mg PO DAILY 02/17/22 05/29/22 History Allergies Allergy/AdvReac Type Severity Reaction Status Date / Time lisinopril [LISINOPRIL] Allergy Severe SWELLING- Verified 04/10/22 11:23 ANGIOEDEMA codeine [CODEINE] Allergy Intermediate VOMITING/HIVES, Verified 04/10/22 11:23 vomiting, hives Exam Vital signs: Vital Signs Temp 97.7 F 05/29/22 15:17 Pulse 95 05/29/22 15:17 Resp 15 05/29/22 15:17 BP 154/74 H 05/29/22 15:17 Pulse Ox 100 05/29/22 15:17 O2 Del Method Nasal Cannula 05/29/22 15:17 O2 Flow Rate 2 05/12/22 13:11 Intake & Output 05/28/22 05/29/22 05/29/22 18:59 06:59 18:59 Other: Weight 88 kg Weight in Grams [id number] Weight 88 kg BMI result Body Mass Index 30.4 - Constitutional Present: no acute distress - Routine HEENT Exam Head: Present: normal inspection - Routine Neck Exam Absent: lymphadenopathy - Routine Respiratory Exam Present: CTAB. Absent: respiratory distress, rhonchi - Routine Cardiovascular Exam Cardiovascular: Present: RRR, S1, S2 - Routine Abdominal Exam Present: distended, soft. Absent: organomegaly - Routine Extremities Exam Present: pulses intact - Routine Skin Exam Present: intact. Absent: cyanosis Data - Labs CBC & Chem 7: 05/28/22 11:11 05/28/22 11:11 Assessment and Plan Patient Active problem list reviewed?: Yes (1) Bilateral lung cancer Problem details: (RUL lobectomy 07/2019 & LITA wedge 01/2021) Status: Chronic Assessment and plan: 1. This is a pleasant 61-year-old woman with bilateral lung adenocarcinoma. She has been diagnosed with recurrent metastatic lung cancer in the right with bone and brain metastasis in september 2021. She had right upper lobectomy/mediastinal lymphadenectomy on 08/03/2019 at [facility]. Pathology revealed invasive adenocarcinoma, tumor size 1.3 x 0.9 x 0.5 cm, moderately differentiated, tumor invades visceral pleura, no satellite nodules. Vascular invasion present, margins negative. Pathological TNM stage PT2a, pN0, MX. NGS panel negative for for alk rearrangement, ROS1 rearrangement, MET amplification, RET rearrangement and PTEN deletions, KRAS G12C mutation present, MSI stable, PD L1-TPS score 1, HER2 with breast scoring equivocal, stone TRK equivocal. RBM10 and TP53 alterations detected. On 01/21/2021 patient underwent left upper lobe wedge resection and lymph node biopsies. Pathology revealed adenocarcinoma tumor size 1.8 x 1.8 x 1.1 cm. Single focus, G2 moderately differentiated, visceral pleural invasion identified, lymphovascular invasion not identified. Margins negative. Two lymph nodes were examined, negative for carcinoma. Pathological TNM stage pT2a pN0. KRAS mutation Exon 2 ([id number]) positive, BRAF negative, PDL1 1%. EGFR and alk mutations were not tested as they are mutually exclusive if KRAS is present. ( it was sent to [facility] from [facility]). On 11/03/[address]-guided biopsy of right upper lobe mass, pathology -adenocarcinoma, moderately to poorly differentiated consistent with lung primary. PDL expression 1%, HER2 equivocal score 2+. Patient started on combination therapy with pembrolizumab, carboplatin and pemetrexed on 11/13/2021. She is on denosumab 120 mg subQ monthly for bone metastasis. She has completed 4 cycles. Repeat PET-CT Performed 03/24/2022 showed interval resolution of previously documented right FDG avid airspace disease involving right middle and right lower lobes as well as FDG avid mediastinal lymph nodes. Brain MRI from 03/2022 showed 3 mm enhancement on the left parietal lobe and 2 mm enhancement in the right parietal lobe concerning for small metastatic foci. Large bilateral mastoid effusions present. She is now on pemetrexed along with pembrolizumab as maintenance therapy. Neulasta will be administered because of neutropenic fever in the past. 2. Rash/pruritus, this happened a week after treatment. Could be medication but also exacerbated by dry skin and weather. Patient was advised moisturizing. This has resolved. 3. Bone metastasis. She is on denosumab. She is has been noncompliant calcium she was advised to take 600 mg calcium b.i.d.. 4. Pancytopenia/neutropenia related to chemotherapy. Patient was advised about this, she was advised to call if she develops any fever. Avoid sick contacts. Follow-up in 3 weeks. - Time Spent With Patient Time Spent with Patient (in minutes): 15
--- NOTE | 2022-05-29 15:42 | MHC.HEMONCMA ---
patient seen today for follow up to labs, VSS, followup on chemo days.
[2022-06-12 11:36] LABS: MANUAL DIFF FLAG NO
[2022-06-12 11:42] LABS: Basophils Percent Auto 0.4 % (0-2); Eosinophils Absolute Auto 0.1 X10*3/uL (0.0-0.4); Eosinophils Percent Auto 1.3 % (0-4); Hematocrit 22.6 % (37.0-47.0); Hemoglobin 7.5 g/dl (12.0-16.0); Imm Gran Abs Auto 0.11 X10*3/uL (0.00-0.03); Imm Gran Pct Auto 1.2 % (0.0-0.4); Lymphocytes Absolute Auto 1.2 X10*3/uL (1.2-4.9); Lymphocytes Percent Auto 13.2 % (20-40); Mean Corpuscular HGB Conc 33.2 g/dl (31.0-35.0); Mean Corpuscular Hemoglobin 32.9 pg (27.0-33.0); Mean Corpuscular Volume 99.1 fL (80.0-98.0); Mean Platelet Volume 10.6 fL (9.4-12.3); Monocytes Absolute Auto 0.9 X10*3/uL (0.1-1.2); Monocytes Percent Auto 9.4 % (2-11); Neutrophils Absolute Auto 6.8 x10*3/uL (2.0-8.3); Neutrophils Percent Auto 74.5 % (45-73); Platelet Count 179 X10*3/uL (160-400); Red Blood Count 2.28 X10*6/uL (4.20-5.50); Red Cell Distribution Width 15.1 % (11.0-16.0); White Blood Count 9.1 X10*3/uL (4.8-10.8)
[2022-06-12 11:45] VITALS: BP 142/78; PULSE 76; RESP 19; TEMP 35.9; O2SAT 100; BMI 30.6
[2022-06-12 11:57] LABS: Alanine Aminotransferase 9 U/L (0-31); Albumin Level 4.1 g/dL (3.5-5.0); Alkaline Phosphatase 62 U/L (39-117); Anion Gap 16 (12-20); Aspartate Amino Transferase 20 U/L (5-31); Bilirubin Total 0.5 mg/dL (0.0-1.0); Blood Urea Nitrogen 23 mg/dL (9-16); Carbon Dioxide 29 mmol/L (22-29); Chloride 99 mmol/L (96-108); Creatinine Clr Calc Pharmacy 44.7; Estimated Glomerular Filt Rate 35; Glucose Random 112 mg/dL (60-115); Potassium 3.3 mmol/L (3.3-5.1); Sodium 141 mmol/L (135-145); Total Protein 7.1 g/dL (6.5-8.0)
[2022-06-12 12:24] LABS: Immature Retic Fraction 33.9 % (3.0-15.9); Retic HGB Equivalent 38.4 pg (30.0-35.0); Reticulocyte Percent 3.4 % (0.5-1.8); Reticulocytes Absolute 0.078 X10*6/uL (0.026-0.095)
[2022-06-12] MEDS: Cyanocobalamin (Vitamin B-12) 1,000 MCG/ML VIAL 1000 MCG IM (12:34)
[2022-06-12 12:46] LABS: MANUAL DIFF FLAG NO
[2022-06-12 12:55] LABS: Basophils Percent Auto 0.3 % (0-2); Eosinophils Absolute Auto 0.1 X10*3/uL (0.0-0.4); Eosinophils Percent Auto 0.8 % (0-4); Imm Gran Abs Auto 0.13 X10*3/uL (0.00-0.03); Imm Gran Pct Auto 1.8 % (0.0-0.4); Lymphocytes Absolute Auto 0.6 X10*3/uL (1.2-4.9); Lymphocytes Percent Auto 8.2 % (20-40); Mean Corpuscular Hemoglobin 33.2 pg (27.0-33.0); Mean Corpuscular Volume 97.5 fL (80.0-98.0); Mean Platelet Volume 10.2 fL (9.4-12.3); Monocytes Absolute Auto 0.3 X10*3/uL (0.1-1.2); Monocytes Percent Auto 3.9 % (2-11); Neutrophils Absolute Auto 6.3 x10*3/uL (2.0-8.3); Platelet Count 138 X10*3/uL (160-400); Red Blood Count 2.02 X10*6/uL (4.20-5.50); Red Cell Distribution Width 14.8 % (11.0-16.0); White Blood Count 7.4 X10*3/uL (4.8-10.8)
[2022-06-12 13:07] LABS: Alanine Aminotransferase 9 U/L (0-31); Albumin Level 3.8 g/dL (3.5-5.0); Alkaline Phosphatase 56 U/L (39-117); Anion Gap 14 (12-20); Aspartate Amino Transferase 19 U/L (5-31); Bilirubin Total 0.5 mg/dL (0.0-1.0); Blood Urea Nitrogen 23 mg/dL (9-16); Calcium 8.6 mg/dL (8.4-10.2); Carbon Dioxide 29 mmol/L (22-29); Chloride 99 mmol/L (96-108); Creatinine Clr Calc Pharmacy 46.8; Estimated Glomerular Filt Rate 37; Glucose Random 140 mg/dL (60-115); Potassium 3.1 mmol/L (3.3-5.1); Sodium 139 mmol/L (135-145); Total Protein 6.6 g/dL (6.5-8.0)
[2022-06-12 13:09] LABS: Ferritin 1537 ng/mL (10-250); Folate > 20.0 ng/mL (> or = 4.0); Free T4 (Free Thyroxine) 1.09 ng/dL (0.71-1.85); Thyroid Stimulating Hormone 6.04 uIU/mL (0.32-4.0); Vitamin B12 1299 pg/mL (200-900)
[2022-06-12 13:10] LABS: Hemoglobin 6.7 g/dl (12.0-16.0)
[2022-06-12 13:11] LABS: Hematocrit 19.7 % (37.0-47.0)
[2022-06-12 13:48] VITALS: BP 142/82; PULSE 76; RESP 19; TEMP 35.9
[2022-06-12 14:04] VITALS: BP 122/72; PULSE 66; RESP 18; TEMP 35.7
[2022-06-12 15:16] VITALS: BP 145/79; PULSE 71; RESP 19; TEMP 36.1
--- NOTE | 2022-06-12 16:11 | MHC.HEMONC ---
Addendum entered by Anahi Chun RN 06/12/22 16:21: B-12 injection given in right arm-tolerated well. Original Note: Pt here for C9D1 Pembro/Pemetrexed. Labs drawn by energy operations vice president-specimen to lab. Pt states she feels extremely fatigued, dysphneic on exertion, continues to use oxygen at 2l via NC, states both knees and feet are painful. H & H 7.5/22.6, platelets 179, cr 1.51-lab results reported to Dr Samuels-no chemotherapy today per provider. Pt to receive one unit RBC's-pt agreeable to plan. Consent for transfusion obtained. #22 angio inserted in right hand with blood return noted. Vital signs as noted. Type and screen drawn after IV fluids started with repeat CBC results as noted H & H 6.7/19.7-results reported to Dr Samuels-no change in plan at this time. One unit RBC infused as ordered with continued stable vital signs. Dr Samuels intos eept. Plan for repeat lab draw on Wednesday06/15/22. Chemotherapy reschedule til 06/19/22. Discharge packet given with next appointments scheduled. Peripheral IV removed-no edema or redness at site. Pt states she feels better after transfusion.
[2022-06-15 11:41] LABS: MANUAL DIFF FLAG NO
[2022-06-15 11:44] LABS: Basophils Absolute Auto 0.1 X10*3/uL (0.0-0.2); Basophils Percent Auto 0.6 % (0-2); Eosinophils Absolute Auto 0.1 X10*3/uL (0.0-0.4); Eosinophils Percent Auto 1.1 % (0-4); Hematocrit 26.2 % (37.0-47.0); Hemoglobin 8.7 g/dl (12.0-16.0); Imm Gran Abs Auto 0.44 X10*3/uL (0.00-0.03); Lymphocytes Absolute Auto 1.7 X10*3/uL (1.2-4.9); Lymphocytes Percent Auto 15.9 % (20-40); Mean Corpuscular HGB Conc 33.2 g/dl (31.0-35.0); Mean Corpuscular Hemoglobin 33.3 pg (27.0-33.0); Mean Corpuscular Volume 100.4 fL (80.0-98.0); Mean Platelet Volume 9.9 fL (9.4-12.3); Monocytes Absolute Auto 1.4 X10*3/uL (0.1-1.2); Monocytes Percent Auto 13.1 % (2-11); NRBC Pct Auto 0.2 /100WBC (0.0-0.2); Neutrophils Absolute Auto 7.1 x10*3/uL (2.0-8.3); Neutrophils Percent Auto 65.3 % (45-73); Platelet Count 200 X10*3/uL (160-400); Red Blood Count 2.61 X10*6/uL (4.20-5.50); Red Cell Distribution Width 16.3 % (11.0-16.0); White Blood Count 10.9 X10*3/uL (4.8-10.8)
[2022-06-15 12:06] LABS: Alanine Aminotransferase 12 U/L (0-31); Alkaline Phosphatase 52 U/L (39-117); Anion Gap 17 (12-20); Aspartate Amino Transferase 20 U/L (5-31); Bilirubin Total 0.5 mg/dL (0.0-1.0); Blood Urea Nitrogen 24 mg/dL (9-16); Carbon Dioxide 29 mmol/L (22-29); Chloride 99 mmol/L (96-108); Creatinine Clr Calc Pharmacy 45.9; Estimated Glomerular Filt Rate 36; Glucose Random 96 mg/dL (60-115); Potassium 3.3 mmol/L (3.3-5.1); Sodium 142 mmol/L (135-145); Total Protein 7.1 g/dL (6.5-8.0)
--- NOTE | 2022-06-15 15:03 | MHC.HEMONC ---
Pt here for repeat lab draw. Labs drawn by spiritual counselor-specimen to lab. H & H 8.7/26.2/platelets 200. Discharged home
[2022-06-19 11:19] LABS: Basophils Absolute Auto 0.1 X10*3/uL (0.0-0.2); Basophils Percent Auto 0.6 % (0-2); Eosinophils Absolute Auto 0.2 X10*3/uL (0.0-0.4); Hematocrit 25.5 % (37.0-47.0); Hemoglobin 8.6 g/dl (12.0-16.0); Imm Gran Abs Auto 0.12 X10*3/uL (0.00-0.03); Imm Gran Pct Auto 1.3 % (0.0-0.4); MANUAL DIFF FLAG SCAN; Mean Corpuscular HGB Conc 33.7 g/dl (31.0-35.0); Mean Corpuscular Hemoglobin 33.3 pg (27.0-33.0); Mean Corpuscular Volume 98.8 fL (80.0-98.0); Mean Platelet Volume 10.1 fL (9.4-12.3); Monocytes Absolute Auto 1.5 X10*3/uL (0.1-1.2); Monocytes Percent Auto 15.7 % (2-11); Neutrophils Absolute Auto 5.7 x10*3/uL (2.0-8.3); Neutrophils Percent Auto 59.4 % (45-73); Platelet Count 187 X10*3/uL (160-400); Red Blood Count 2.58 X10*6/uL (4.20-5.50); Red Cell Distribution Width 16.6 % (11.0-16.0); SCAN SMEAR FLAG 1; White Blood Count 9.6 X10*3/uL (4.8-10.8)
[2022-06-19 11:35] LABS: Alanine Aminotransferase 12 U/L (0-31); Albumin Level 4.1 g/dL (3.5-5.0); Alkaline Phosphatase 58 U/L (39-117); Anion Gap 12 (12-20); Aspartate Amino Transferase 20 U/L (5-31); Bilirubin Total 0.5 mg/dL (0.0-1.0); Blood Urea Nitrogen 27 mg/dL (9-16); Calcium 9.2 mg/dL (8.4-10.2); Carbon Dioxide 34 mmol/L (22-29); Chloride 98 mmol/L (96-108); Creatinine Clr Calc Pharmacy 45.9; Estimated Glomerular Filt Rate 36; Glucose Random 84 mg/dL (60-115); Sodium 141 mmol/L (135-145)
[2022-06-19 11:39] LABS: SLIDE REVIEW VERIFIED
[2022-06-19 11:45] VITALS: BP 123/77; PULSE 67; RESP 20; TEMP 36; O2SAT 98
[2022-06-19 12:05] VITALS: BMI 31.4
--- NOTE | 2022-06-19 12:11 | PM.HEMONCPN ---
Medical Summary - Medical Summary Date of Service: 06/19/22 Chief complaint: Follow up Primary Care Provider: Daphne Rodriguez MD Medical Summary: Diagnosis: Right upper lobe Wedge resection in July 2019, adenocarcinoma Left lower lobe wedge resection in January 2021 adenocarcinoma She was diagnosed with right upper lobe lung adenocarcinoma and underwent right upper lobectomy/mediastinal lymphadenectomy on 08/03/[address] [facility]. Pathology revealed invasive adenocarcinoma, tumor size 1.3 x 0.9 x 0.5 cm, moderately differentiated, tumor invades visceral pleura, no satellite nodules. Vascular invasion present, margins negative. Pathological TNM stage PT2a, pN0, MX. Surveillance CT chest with contrast performed 12/26/2020 showed stable postsurgical changes, 2 new/increasing suspicious areas in the right lower lobe nodules. Interval increase in suspicious appearing cavitary left upper lobe nodule. Numerous bilateral small ground-glass nodules. On 01/21/2021 patient underwent left upper lobe wedge resection and lymph node biopsies. Pathology revealed adenocarcinoma tumor size 1.8 x 1.8 x 1.1 cm. Single focus, G2 moderately differentiated, visceral pleural invasion identified, lymphovascular invasion not identified. Margins negative. Two lymph nodes were examined, negative for carcinoma. Pathological TNM stage pT2a pN0. Molecular studies to be obtained from [facility], this was ordered last week. Stage IB cancer without any high-risk features such as lymphovascular invasion. Surveillance imaging with CT chest/abdomen and pelvis performed in September 2021 showed new right lower lobe mass measuring 1.7 x 1.3 cm suspicious for new/metastatic lesion. Sub pleural ground-glass attenuation measuring 1.4 x 1.1 cm similar to previous exam. Second lesion in the right lower lobe posterior basal segment measuring 1.6 x 1.4 cm which is also suspicious. Subcarinal lymph nodes largest measuring 1.3 x 2.1 cm and large pretracheal lymph node measuring 1.5 x 1.5 cm all suspicious for disease recurrence.. CT abdomen showed stable 1.4 cm right adrenal lesion. Extensive fine interstitial markings throughout right lower lobe likely post radiation changes. PET-CT was recommended for further evaluation. Remote history of radiation for her right breast for cancer treatment. PET-CT performed 10/14/21 showed extensive FDG avid consolidation in the right middle lobe, worse than CT scan in September. Inflammatory versus infectious etiology along with malignancy. New FDG avid mediastinal lymphadenopathy suspicious for recurrence or metastatic malignancy. FDG avid vertebral lesions in C7 and T7 suspicious for metastasis. Stable right adrenal nodule showed no FDG activity. Patient started on combination therapy with pembrolizumab, carboplatin and pemetrexed on 11/13/2021. She is on denosumab 120 mg subQ monthly for bone metastasis. Interval History Interval history: Patient is here in follow-up. She is doing better overall. She does feel weak and tired especially for a week after chemotherapy but this is gradually getting better. She denies any headache or dizziness. No nausea or emesis. No abdominal pain or diarrhea. No leg swelling. Hives have resolved and there is no skin rash at this time. Review of Systems - Neurologic Reports weakness [facility] Medical History: Medical History (Last Reviewed 05/29/22 @ 15:20 by Marta Julian) Bilateral lung cancer Cancer of upper lobe of left lung Onset Date: ~2020 Cancer of upper lobe of right lung Onset Date: ~2019 COPD (chronic obstructive pulmonary disease) Depression GERD (gastroesophageal reflux disease) History of breast cancer Onset Date: ~2006 History of hepatitis C HTN (hypertension) Internal and external bleeding hemorrhoids New onset a-fib Obesity Pancytopenia Pulmonary nodules Smoker Tubular adenoma of colon Family History: Family History (Last Reviewed 05/29/22 @ 15:20 by Mrata Julian) Mother History of lung cancer Brother History of lung cancer Maternal Grandmother Breast cancer in female Maternal Aunt Breast cancer in female Daughter Thyroid cancer Surgical History: Surgical History (Last Reviewed 05/29/22 @ 15:20 by Marta Julian) History of anterior colporrhaphy Onset Date: ~2016 History of back surgery Onset Date: ~2011 History of colonoscopy Onset Date: ~2014 History of hemorrhoidectomy Onset Date: ~2019 History of lobectomy of lung Onset Date: ~2019 History of lumpectomy of right breast Onset Date: ~2006 History of lung surgery Onset Date: ~2020 History of tubal ligation Social History: Social History (Last Reviewed 05/29/22 @ 15:20 by Marta Julian) Living Situation History: Household Members: Spouse Housing: Apartment Are you a primary clinical care leader to a significant other at home: No Do you presently have visiting nurse or other home services: No Alcohol History: Unable to assess alcohol history related to: Unable to respond Alcohol History Details: 1. How often do you have a drink containing alcohol?: b. Monthly or less 2. How many drinks containing alcohol do you have on a typical day when you are drinking?: a. 1 or 2 Tobacco History: Patient Tobacco Use Status: Never used Tobacco Tobacco use type: Cigar Years Smoked: 46 Smoked in Last 30 Days: Yes Second Hand Smoke Exposure: No Substance Use History: Use of substances other than those prescribed or required for medical reasons: Yes Substance Use Type: Marijuana Substance Use Type Other:: 5 mg edibles Last Used Substance Other:: IV heroin 8 years ago Domestic Abuse History: Have you been hit, kicked, punched, or otherwise hurt by someone within the past year? If so, by whom?: No Do you feel safe in your current relationship?: Yes Homicidal Assessment: Do you have thoughts of harming others: None Do you have a plan to hurt others: No Plan Do you have the means to hurt others: No Nutrition Assessment: Recently lost weight without trying: No Occupation Assessmet: service: No Current occupational status: disabled Current occupational exposures/hazards: No Home Medications and Allergies Current Medications: Current Medications Cyanocobalamin (Cyanocobalamin (Vitamin B-12) 1,000 Mcg/Ml Vial) 1,000 mcg IM ONCE WALTER Stop: 06/19/22 23:59 Dexamethasone (Dexamethasone 6 Mg Tablet) 12 mg PO ONCE WALTER Stop: 06/19/22 23:59 Diphenhydramine HCl (Diphenhydramine Hcl 25 Mg Capsule) 25 mg PO ONCE WALTER Stop: 06/19/22 23:59 Heparin Sodium (Porcine) (Heparin Sodium,Porcine Flush 500 Unit/5 Ml Syringe) 500 unit IVFLUSH ONCE WALTER Stop: 06/19/22 23:59 Ondansetron HCl (Zofran) 16 mg in 50 mls @ 200 mls/hr IV ONCE WALTER Stop: 06/19/22 23:59 Pembrolizumab 200 mg/ Sodium (Chloride) 58 mls @ 116 mls/hr IV ONCE WALTER Stop: 06/19/22 23:59 Pegfilgrastim (Pegfilgrastim Onpro 6 Mg/0.6 Ml Syr.W..Inj) 6 mg SUBCUT ONCE WALTER Stop: 06/19/22 23:59 Home Medications Medication Instructions Recorded Confirmed Type buprenorphine 4 mg-naloxone 1 mg 1 strip sublingual DAILY 01/18/22 06/12/22 History sublingual film (Suboxone) diltiazem HCl 180 mg 180 mg PO DAILY 01/18/22 06/12/22 History capsule,extended release 24 hr, controlled (DILT-XR) folic acid 1 mg tablet 1 mg PO DAILY 01/18/22 06/12/22 History metoprolol tartrate 50 1 tab PO DAILY 01/18/22 06/12/22 History mg-hydrochlorothiazide 25 mg tablet milnacipran 50 mg tablet (Savella) 50 mg PO BID 01/18/22 06/12/22 History omeprazole 20 mg capsule,delayed 20 mg PO DAILY@0630 01/18/22 06/12/22 History release paroxetine HCl 20 mg tablet 60 mg PO DAILY 01/18/22 06/12/22 History umeclidinium 62.5 mcg-vilanterol 1 puff inhalation DAILY 01/18/22 06/12/22 History 25 mcg/actuation powdr for inhalation (Anoro Ellipta) cholecalciferol (vitamin D3) 50 50 mcg PO DAILY 02/17/22 06/12/22 History mcg (2,000 unit) tablet (Vitamin D3) dexamethasone 4 mg tablet 8 mg PO BID 02/17/22 06/12/22 History ipratropium 0.5 mg-albuterol 3 mg 3 ml inhalation Q6-8H PRN 02/17/22 06/12/22 History (2.5 mg base)/3 mL nebulization Shortness Of Breath Or Wheezing soln nicotine 21 mg/24 hr daily 1 patch topical DAILY 02/17/22 06/12/22 History transdermal patch ondansetron HCl 8 mg tablet 8 mg PO Q8H PRN Nausea 02/17/22 06/12/22 History simvastatin 20 mg tablet 20 mg PO DAILY 02/17/22 06/12/22 History Allergies Allergy/AdvReac Type Severity Reaction Status Date / Time lisinopril [LISINOPRIL] Allergy Severe SWELLING- Verified 04/10/22 11:23 ANGIOEDEMA codeine [CODEINE] Allergy Intermediate VOMITING/HIVES, Verified 04/10/22 11:23 vomiting, hives Exam Vital signs: Vital Signs Temp 97 F 06/12/22 15:16 Pulse 71 06/12/22 15:16 Resp 19 06/12/22 15:16 BP 145/79 H 06/12/22 15:16 Pulse Ox 100 06/12/22 11:45 O2 Del Method 06/12/22 11:45 O2 Flow Rate 2 06/12/22 11:45 Intake & Output 06/18/22 06/19/22 06/19/22 18:59 06:59 18:59 Other: Weight 90.9 kg [place] Weight in Grams 30409 Weight 90.9 kg BMI result Body Mass Index 31.4 - Constitutional Present: no acute distress - Routine HEENT Exam Head: Present: normal inspection - Routine Neck Exam Absent: lymphadenopathy - Routine Respiratory Exam Present: CTAB. Absent: respiratory distress, rhonchi - Routine Cardiovascular Exam Cardiovascular: Present: RRR, S1, S2 - Routine Abdominal Exam Present: distended, soft. Absent: organomegaly - Routine Extremities Exam Present: pulses intact - Routine Skin Exam Present: intact. Absent: cyanosis Data - Labs CBC & Chem 7: 06/19/22 11:02 06/19/22 11:02 Assessment and Plan Patient Active problem list reviewed?: Yes (1) Bilateral lung cancer Problem details: (RUL lobectomy 07/2019 & LITA wedge 01/2021) Status: Chronic Assessment and plan: 1. This is a pleasant 61-year-old woman with bilateral lung adenocarcinoma. She has been diagnosed with recurrent metastatic lung cancer in the right with bone and brain metastasis in september 2021. She had right upper lobectomy/mediastinal lymphadenectomy on 08/03/[address] [facility]. Pathology revealed invasive adenocarcinoma, tumor size 1.3 x 0.9 x 0.5 cm, moderately differentiated, tumor invades visceral pleura, no satellite nodules. Vascular invasion present, margins negative. Pathological TNM stage PT2a, pN0, MX. NGS panel negative for for alk rearrangement, ROS1 rearrangement, MET amplification, RET rearrangement and PTEN deletions, KRAS G12C mutation present, MSI stable, PD L1-TPS score 1, HER2 with breast scoring equivocal, stone TRK equivocal. RBM10 and TP53 alterations detected. On 01/21/2021 patient underwent left upper lobe wedge resection and lymph node biopsies. Pathology revealed adenocarcinoma tumor size 1.8 x 1.8 x 1.1 cm. Single focus, G2 moderately differentiated, visceral pleural invasion identified, lymphovascular invasion not identified. Margins negative. Two lymph nodes were examined, negative for carcinoma. Pathological TNM stage pT2a pN0. KRAS mutation Exon 2 ([id number]) positive, BRAF negative, PDL1 1%. EGFR and alk mutations were not tested as they are mutually exclusive if KRAS is present. ( it was sent to [facility] from [facility]). On 11/03/[address]-guided biopsy of right upper lobe mass, pathology -adenocarcinoma, moderately to poorly differentiated consistent with lung primary. PDL expression 1%, HER2 equivocal score 2+. Patient started on combination therapy with pembrolizumab, carboplatin and pemetrexed on 11/13/2021. She is on denosumab 120 mg subQ monthly for bone metastasis. She has completed 4 cycles. Repeat PET-CT Performed 03/24/2022 showed interval resolution of previously documented right FDG avid airspace disease involving right middle and right lower lobes as well as FDG avid mediastinal lymph nodes. Brain MRI from 03/2022 showed 3 mm enhancement on the left parietal lobe and 2 mm enhancement in the right parietal lobe concerning for small metastatic foci. Large bilateral mastoid effusions present. She has been on pemetrexed along with pembrolizumab as maintenance therapy. She has developed severe pancytopenia/ anemia in spite of growth factor support. She will now be switched to pembrolizumab as maintenance therapy. Repeat PET scan at this time. 2. Bone metastasis. She is on denosumab. She is has been noncompliant calcium she was advised to take 600 mg calcium b.i.d.. 4. Pancytopenia/neutropenia related to chemotherapy. She had a blood transfusion last week. Pemetrexed is being discontinued, she will continue on pembrolizumab. 4. Renal insufficiency. She has been receiving IV fluids. Unclear if this is secondary to chemotherapy or immune toxicity from pembrolizumab. Referred to Nephrology. Follow-up in 3 weeks. - Time Spent With Patient Time Spent with Patient (in minutes): 15
[2022-06-19] MEDS: Acetaminophen 325 MG TABLET 650 MG PO (12:38)
[2022-06-19] MEDS: diphenhydrAMINE HCL 25 MG CAPSULE PO (12:38)
[2022-06-19] MEDS: Potassium Chloride ER 20 MEQ TAB.ER.PRT PO (12:43)
[2022-06-19] MEDS: Famotidine 20 MG TABLET PO (12:49)
--- NOTE | 2022-06-19 13:17 | MHC.HEMONCMA ---
Asmita ordered and given to MS to auth.
--- NOTE | 2022-06-19 16:02 | MHC.HEMONC ---
Here for C9 D1 Pembrolizumab/Pemetrexed. States is feeling good, except she is having some insomnia. Labs drawn and results reviewed. Hgb 8.6, potassium 3.0, BUN 27, creatinine 1.47. Dr Samuels is aware. Pt to only receive pembro today, no pemetrexed. Pharmacy aware. Premedicated with tylenol, ondansetron IV, pepcid PO, and benadryl PO. Treatment done and tolerated well. Dr Samuels in to see pt. PET scan ordered. Also to be referred to nephrology. IV dc'd with no redness or swelling at site. Departure packet given and pt departed unit. Next treatment scheduled in 3 weeks.
--- NOTE | 2022-06-19 16:20 | MHC.HEMONCMA ---
new consult referral being done to [facility].
--- NOTE | 2022-07-07 11:08 | MHC.HEMONC ---
PET scan order given to Sandra.
--- NOTE | 2022-07-07 12:32 | HO.HEMONCSCH ---
[facility]- APPT ORDER FAXED. AWAITING APPT DATE & TIME
[2022-07-10 11:06] LABS: MANUAL DIFF FLAG NO
[2022-07-10 11:26] LABS: Basophils Percent Auto 0.7 % (0-2); Eosinophils Absolute Auto 0.3 X10*3/uL (0.0-0.4); Eosinophils Percent Auto 4.9 % (0-4); Hematocrit 25.6 % (37.0-47.0); Hemoglobin 8.7 g/dl (12.0-16.0); Imm Gran Abs Auto 0.02 X10*3/uL (0.00-0.03); Imm Gran Pct Auto 0.4 % (0.0-0.4); Lymphocytes Absolute Auto 1.2 X10*3/uL (1.2-4.9); Lymphocytes Percent Auto 21.2 % (20-40); Mean Corpuscular Hemoglobin 32.8 pg (27.0-33.0); Mean Corpuscular Volume 96.6 fL (80.0-98.0); Monocytes Absolute Auto 0.6 X10*3/uL (0.1-1.2); Monocytes Percent Auto 10.9 % (2-11); Neutrophils Absolute Auto 3.4 x10*3/uL (2.0-8.3); Neutrophils Percent Auto 61.9 % (45-73); Platelet Count 135 X10*3/uL (160-400); Red Blood Count 2.65 X10*6/uL (4.20-5.50); Red Cell Distribution Width 14.6 % (11.0-16.0); White Blood Count 5.5 X10*3/uL (4.8-10.8)
[2022-07-10 11:28] VITALS: BP 183/88; PULSE 74; TEMP 35.5; O2SAT 99; BMI 31.2
[2022-07-10 11:40] LABS: Alanine Aminotransferase 6 U/L (0-31); Albumin Level 4.1 g/dL (3.5-5.0); Alkaline Phosphatase 56 U/L (39-117); Anion Gap 13 (12-20); Aspartate Amino Transferase 20 U/L (5-31); Bilirubin Total 0.6 mg/dL (0.0-1.0); Blood Urea Nitrogen 23 mg/dL (9-16); Carbon Dioxide 33 mmol/L (22-29); Chloride 100 mmol/L (96-108); Creatinine Clr Calc Pharmacy 43.7; Estimated Glomerular Filt Rate 34; Glucose Random 103 mg/dL (60-115); Potassium 3.2 mmol/L (3.3-5.1); Sodium 143 mmol/L (135-145); Total Protein 6.9 g/dL (6.5-8.0)
[2022-07-10] MEDS: dexAMETHasone 6 MG TABLET 12 MG PO (11:48)
[2022-07-10] MEDS: Cyanocobalamin (Vitamin B-12) 1,000 MCG/ML VIAL 1000 MCG IM (11:49)
[2022-07-10] MEDS: diphenhydrAMINE HCL 25 MG CAPSULE PO (11:49)
[2022-07-10 11:56] LABS: Thyroid Stimulating Hormone 3.68 uIU/mL (0.32-4.0)
--- NOTE | 2022-07-10 14:24 | MHC.HEMONC ---
Here for c10 pembrolizumab (no more pemetrexed per Dr Samuels note). Labs drawn and reviewed. IV placed in right AC by Anahi MUÑIZ. Premeds and pembro tolerated well. Denosumab and b12 injection also given today. Pt aware of next appt, discharge packet provided.
--- NOTE | 2022-07-15 10:07 | MHC.HEMONC ---
PET 07/21 at 10:15 per enedina lombardo [place].
--- NOTE | 2022-07-28 15:52 | MHC.HEMONC ---
Triage call-received call from Dagoberto requesting refill on folic acid-requesting 90 day supply for insurance to cover medication-given to DR Samuels
[2022-07-31 10:55] LABS: MANUAL DIFF FLAG NO
[2022-07-31 11:01] VITALS: BP 173/98; PULSE 88; RESP 22; TEMP 36.2; O2SAT 98; BMI 31.8
[2022-07-31 11:02] LABS: Basophils Percent Auto 0.6 % (0-2); Eosinophils Absolute Auto 0.1 X10*3/uL (0.0-0.4); Hematocrit 26.4 % (37.0-47.0); Hemoglobin 8.7 g/dl (12.0-16.0); Imm Gran Abs Auto 0.02 X10*3/uL (0.00-0.03); Imm Gran Pct Auto 0.4 % (0.0-0.4); Lymphocytes Percent Auto 20.5 % (20-40); Mean Corpuscular Hemoglobin 32.7 pg (27.0-33.0); Mean Corpuscular Volume 99.2 fL (80.0-98.0); Mean Platelet Volume 9.7 fL (9.4-12.3); Monocytes Absolute Auto 0.4 X10*3/uL (0.1-1.2); Monocytes Percent Auto 9.1 % (2-11); Neutrophils Absolute Auto 3.1 x10*3/uL (2.0-8.3); Neutrophils Percent Auto 66.4 % (45-73); Platelet Count 154 X10*3/uL (160-400); Red Blood Count 2.66 X10*6/uL (4.20-5.50); Red Cell Distribution Width 13.4 % (11.0-16.0); White Blood Count 4.7 X10*3/uL (4.8-10.8)
--- NOTE | 2022-07-31 11:03 | PM.HEMONCPN ---
Medical Summary - Medical Summary Date of Service: 07/31/22 Chief complaint: Follow-up Primary Care Provider: Daphne Rodriguez MD Medical Summary: Diagnosis: Right upper lobe Wedge resection in July 2019, adenocarcinoma Left lower lobe wedge resection in January 2021 adenocarcinoma She was diagnosed with right upper lobe lung adenocarcinoma and underwent right upper lobectomy/mediastinal lymphadenectomy on 08/03/2019 at [facility]. Pathology revealed invasive adenocarcinoma, tumor size 1.3 x 0.9 x 0.5 cm, moderately differentiated, tumor invades visceral pleura, no satellite nodules. Vascular invasion present, margins negative. Pathological TNM stage PT2a, pN0, MX. Surveillance CT chest with contrast performed 12/26/2020 showed stable postsurgical changes, 2 new/increasing suspicious areas in the right lower lobe nodules. Interval increase in suspicious appearing cavitary left upper lobe nodule. Numerous bilateral small ground-glass nodules. On 01/21/2021 patient underwent left upper lobe wedge resection and lymph node biopsies. Pathology revealed adenocarcinoma tumor size 1.8 x 1.8 x 1.1 cm. Single focus, G2 moderately differentiated, visceral pleural invasion identified, lymphovascular invasion not identified. Margins negative. Two lymph nodes were examined, negative for carcinoma. Pathological TNM stage pT2a pN0. Molecular studies to be obtained from [facility], this was ordered last week. Stage IB cancer without any high-risk features such as lymphovascular invasion. Surveillance imaging with CT chest/abdomen and pelvis performed in September 2021 showed new right lower lobe mass measuring 1.7 x 1.3 cm suspicious for new/metastatic lesion. Sub pleural ground-glass attenuation measuring 1.4 x 1.1 cm similar to previous exam. Second lesion in the right lower lobe posterior basal segment measuring 1.6 x 1.4 cm which is also suspicious. Subcarinal lymph nodes largest measuring 1.3 x 2.1 cm and large pretracheal lymph node measuring 1.5 x 1.5 cm all suspicious for disease recurrence.. CT abdomen showed stable 1.4 cm right adrenal lesion. Extensive fine interstitial markings throughout right lower lobe likely post radiation changes. PET-CT was recommended for further evaluation. Remote history of radiation for her right breast for cancer treatment. PET-CT performed 10/14/21 showed extensive FDG avid consolidation in the right middle lobe, worse than CT scan in September. Inflammatory versus infectious etiology along with malignancy. New FDG avid mediastinal lymphadenopathy suspicious for recurrence or metastatic malignancy. FDG avid vertebral lesions in C7 and T7 suspicious for metastasis. Stable right adrenal nodule showed no FDG activity. Patient started on combination therapy with pembrolizumab, carboplatin and pemetrexed on 11/13/2021. She is on denosumab 120 mg subQ monthly for bone metastasis. Repeat PET-CT Performed 03/24/2022 showed interval resolution of previously documented right FDG avid airspace disease involving right middle and right lower lobes as well as FDG avid mediastinal lymph nodes. Brain MRI from 03/2022 showed 3 mm enhancement on the left parietal lobe and 2 mm enhancement in the right parietal lobe concerning for small metastatic foci. Interval History Interval history: Patient is here in follow-up. She is doing better overall. She does feel weak and tired especially for a week after chemotherapy but this is gradually getting better. She denies any headache or dizziness. No nausea or emesis. No abdominal pain or diarrhea. No leg swelling. Review of Systems - Constitutional Reports as per HPI, Denies anorexia, Denies lack of energy - Cardiovascular Denies no additional cardiovascular complaints - Respiratory Denies no additional respiratory complaints - Gastrointestinal Denies no additional gastrointestinal complaints - Neurologic Reports weakness PMFSH Medical History: Medical History (Last Reviewed 05/29/22 @ 15:20 by Marta Julian) Bilateral lung cancer Cancer of upper lobe of left lung Onset Date: ~2020 Cancer of upper lobe of right lung Onset Date: ~2019 COPD (chronic obstructive pulmonary disease) Depression GERD (gastroesophageal reflux disease) History of breast cancer Onset Date: ~2006 History of hepatitis C HTN (hypertension) Internal and external bleeding hemorrhoids New onset a-fib Obesity Pancytopenia Pulmonary nodules Smoker Tubular adenoma of colon Family History: Family History (Last Reviewed 05/29/22 @ 15:20 by Marta Julian) Mother History of lung cancer Brother History of lung cancer Maternal Grandmother Breast cancer in female Maternal Aunt Breast cancer in female Daughter Thyroid cancer Surgical History: Surgical History (Last Reviewed 05/29/22 @ 15:20 by Marta Julian) History of anterior colporrhaphy Onset Date: ~2016 History of back surgery Onset Date: ~2011 History of colonoscopy Onset Date: ~2014 History of hemorrhoidectomy Onset Date: ~2019 History of lobectomy of lung Onset Date: ~2019 History of lumpectomy of right breast Onset Date: ~2006 History of lung surgery Onset Date: ~2020 History of tubal ligation Social History: Social History (Last Reviewed 05/29/22 @ 15:20 by Marta Julian) Living Situation History: Household Members: Spouse Housing: Apartment Are you a primary resident care provider to a significant other at home: No Do you presently have visiting nurse or other home services: No Alcohol History: Unable to assess alcohol history related to: Unable to respond Alcohol History Details: 1. How often do you have a drink containing alcohol?: b. Monthly or less 2. How many drinks containing alcohol do you have on a typical day when you are drinking?: a. 1 or 2 Tobacco History: Patient Tobacco Use Status: Never used Tobacco Tobacco use type: Cigar Years Smoked: 46 Smoked in Last 30 Days: Yes Second Hand Smoke Exposure: No Substance Use History: Use of substances other than those prescribed or required for medical reasons: Yes Substance Use Type: Marijuana Substance Use Type Other:: 5 mg edibles Last Used Substance Other:: IV heroin 8 years ago Domestic Abuse History: Have you been hit, kicked, punched, or otherwise hurt by someone within the past year? If so, by whom?: No Do you feel safe in your current relationship?: Yes Homicidal Assessment: Do you have thoughts of harming others: None Do you have a plan to hurt others: No Plan Do you have the means to hurt others: No Nutrition Assessment: Recently lost weight without trying: No Occupation Assessmet: service: No Current occupational status: disabled Current occupational exposures/hazards: No Home Medications and Allergies Home Medications Medication Instructions Recorded Confirmed Type buprenorphine 4 mg-naloxone 1 mg 1 strip sublingual DAILY 01/18/22 06/12/22 History sublingual film (Suboxone) diltiazem HCl 180 mg 180 mg PO DAILY 01/18/22 06/12/22 History capsule,extended release 24 hr, controlled (DILT-XR) metoprolol tartrate 50 1 tab PO DAILY 01/18/22 06/12/22 History mg-hydrochlorothiazide 25 mg tablet milnacipran 50 mg tablet (Savella) 50 mg PO BID 01/18/22 06/12/22 History omeprazole 20 mg capsule,delayed 20 mg PO DAILY@0630 01/18/22 06/12/22 History release paroxetine HCl 20 mg tablet 60 mg PO DAILY 01/18/22 06/12/22 History umeclidinium 62.5 mcg-vilanterol 1 puff inhalation DAILY 01/18/22 06/12/22 History 25 mcg/actuation powdr for inhalation (Anoro Ellipta) cholecalciferol (vitamin D3) 50 50 mcg PO DAILY 02/17/22 06/12/22 History mcg (2,000 unit) tablet (Vitamin D3) dexamethasone 4 mg tablet 8 mg PO BID 02/17/22 06/12/22 History ipratropium 0.5 mg-albuterol 3 mg 3 ml inhalation Q6-8H PRN 02/17/22 06/12/22 History (2.5 mg base)/3 mL nebulization Shortness Of Breath Or Wheezing soln nicotine 21 mg/24 hr daily 1 patch topical DAILY 02/17/22 06/12/22 History transdermal patch ondansetron HCl 8 mg tablet 8 mg PO Q8H PRN Nausea 02/17/22 06/12/22 History simvastatin 20 mg tablet 20 mg PO DAILY 02/17/22 06/12/22 History Allergies Allergy/AdvReac Type Severity Reaction Status Date / Time lisinopril [LISINOPRIL] Allergy Severe SWELLING- Verified 04/10/22 11:23 ANGIOEDEMA codeine [CODEINE] Allergy Intermediate VOMITING/HIVES, Verified 04/10/22 11:23 vomiting, hives Exam Vital signs: Vital Signs Temp 96 F L 07/10/22 11:28 Pulse 74 07/10/22 11:28 Resp 20 06/19/22 11:45 BP 183/88 H 07/10/22 11:28 Pulse Ox 99 07/10/22 11:28 O2 Del Method Nasal Cannula 07/10/22 11:28 O2 Flow Rate 2 07/10/22 11:28 Weight 90.6 kg BMI result Body Mass Index 31.2 - Constitutional Present: no acute distress - Routine HEENT Exam Head: Present: normal inspection - Routine Neck Exam Absent: lymphadenopathy - Routine Respiratory Exam Present: CTAB. Absent: respiratory distress, rhonchi - Routine Cardiovascular Exam Cardiovascular: Present: RRR, S1, S2 - Routine Abdominal Exam Present: distended, soft. Absent: organomegaly - Routine Extremities Exam Present: pulses intact - Routine Skin Exam Present: intact. Absent: cyanosis Data - Labs CBC & Chem 7: 07/31/22 10:55 07/31/22 10:55 Assessment and Plan Patient Active problem list reviewed?: Yes (1) Bilateral lung cancer Problem details: (RUL lobectomy 07/2019 & LITA wedge 01/2021) Status: Chronic Assessment and plan: 1. This is a pleasant 61-year-old woman with bilateral lung adenocarcinoma. She has been diagnosed with recurrent metastatic lung cancer in the right with bone and brain metastasis in september 2021. She had right upper lobectomy/mediastinal lymphadenectomy on 08/03/2019 at [facility]. Pathology revealed invasive adenocarcinoma, tumor size 1.3 x 0.9 x 0.5 cm, moderately differentiated, tumor invades visceral pleura, no satellite nodules. Vascular invasion present, margins negative. Pathological TNM stage PT2a, pN0, MX. NGS panel negative for for alk rearrangement, ROS1 rearrangement, MET amplification, RET rearrangement and PTEN deletions, KRAS G12C mutation present, MSI stable, PD L1-TPS score 1, HER2 with breast scoring equivocal, stone TRK equivocal. RBM10 and TP53 alterations detected. On 01/21/2021 patient underwent left upper lobe wedge resection and lymph node biopsies. Pathology revealed adenocarcinoma tumor size 1.8 x 1.8 x 1.1 cm. Single focus, G2 moderately differentiated, visceral pleural invasion identified, lymphovascular invasion not identified. Margins negative. Two lymph nodes were examined, negative for carcinoma. Pathological TNM stage pT2a pN0. KRAS mutation Exon 2 ([id number]) positive, BRAF negative, PDL1 1%. EGFR and alk mutations were not tested as they are mutually exclusive if KRAS is present. ( it was sent to [facility] from [facility]). On 11/03/[address]-guided biopsy of right upper lobe mass, pathology -adenocarcinoma, moderately to poorly differentiated consistent with lung primary. PDL expression 1%, HER2 equivocal score 2+. Patient started on combination therapy with pembrolizumab, carboplatin and pemetrexed on 11/13/2021. She is on denosumab 120 mg subQ monthly for bone metastasis. Repeat PET-CT in July 2022 shows no FDG avid lesions and stable from prior scan in March 2022. Because of cytopenias, pemetrexed was discontinued from maintenance therapy. She is receiving single agent pembrolizumab at this time. 2. Bone metastasis. She is on denosumab. She is has been noncompliant calcium she was advised to take 600 mg calcium b.i.d.. 4. Pancytopenia/neutropenia related to chemotherapy. She had a blood transfusion last week. Pemetrexed is being discontinued, she will continue on pembrolizumab. 5. Renal insufficiency. She has been receiving IV fluids. Unclear if this is secondary to chemotherapy or immune toxicity from pembrolizumab. Kidney functions are not worsening. Referred to Nephrology is pending. 6. Brain metastasis. 3-2 mm enhancing lesions noted on repeat brain MRI in March. Brain MRI will be repeated at this time. Follow-up in 3 weeks. - Time Spent With Patient Time Spent with Patient (in minutes): 15
--- NOTE | 2022-07-31 11:13 | MHC.HEMONCSW ---
SW introduced self and role to Pt. who indicated she is doing ok for the time being but will keep me in mind.
[2022-07-31 11:20] LABS: Alanine Aminotransferase 11 U/L (0-31); Alkaline Phosphatase 60 U/L (39-117); Anion Gap 14 (12-20); Aspartate Amino Transferase 22 U/L (5-31); Bilirubin Total 0.4 mg/dL (0.0-1.0); Blood Urea Nitrogen 15 mg/dL (9-16); Calcium 8.5 mg/dL (8.4-10.2); Carbon Dioxide 30 mmol/L (22-29); Chloride 101 mmol/L (96-108); Creatinine Clr Calc Pharmacy 47.8; Estimated Glomerular Filt Rate 37; Glucose Random 120 mg/dL (60-115); Potassium 3.1 mmol/L (3.3-5.1); Sodium 142 mmol/L (135-145); Total Protein 6.9 g/dL (6.5-8.0)
[2022-07-31 11:42] VITALS: BP 160/95
[2022-07-31] MEDS: Acetaminophen 325 MG TABLET 650 MG PO (12:10)
[2022-07-31] MEDS: diphenhydrAMINE HCL 25 MG CAPSULE PO (12:11)
[2022-07-31] MEDS: Ondansetron ODT 8 MG TAB.RAPDIS TRANSLINGU (12:11)
--- NOTE | 2022-07-31 16:33 | MHC.HEMONC ---
Here for C11 D1 Pembrolizumab. Labs drawn. IV started right ac with good blood return noted. Lab results reviewed by Dr Samuels. Premedicated with tylenol, zofran, and benadryl po. Treatment done and tolerated well. Dr Samuels in to see pt for follow up and to discuss results of PET scan. Dr Samuels also will refer pt to rad/onc at [facility] due to new findings on brain scan. Pt is aware. IV dc'd, and departure packet given. Pt departed unit.
[2022-08-21 10:58] LABS: MANUAL DIFF FLAG NO
--- NOTE | 2022-08-21 10:59 | MHC.HEMONCSW ---
SW checked in with Pt about the Health Care Proxy - she thought she had one, but asked for a copy to take home.
[2022-08-21 11:02] VITALS: BP 143/94; PULSE 81; RESP 18; TEMP 36.4; O2SAT 98; BMI 31.1
--- NOTE | 2022-08-21 11:12 | PM.HEMONCPN ---
Medical Summary - Medical Summary Date of Service: 08/21/22 Chief complaint: Follow-up and scheduled treatment Primary Care Provider: Daphne Rodriguez MD Medical Summary: Diagnosis: Right upper lobe Wedge resection in July 2019, adenocarcinoma Left lower lobe wedge resection in January 2021 adenocarcinoma She was diagnosed with right upper lobe lung adenocarcinoma and underwent right upper lobectomy/mediastinal lymphadenectomy on 08/03/2019 at [facility]. Pathology revealed invasive adenocarcinoma, tumor size 1.3 x 0.9 x 0.5 cm, moderately differentiated, tumor invades visceral pleura, no satellite nodules. Vascular invasion present, margins negative. Pathological TNM stage PT2a, pN0, MX. Surveillance CT chest with contrast performed 12/26/2020 showed stable postsurgical changes, 2 new/increasing suspicious areas in the right lower lobe nodules. Interval increase in suspicious appearing cavitary left upper lobe nodule. Numerous bilateral small ground-glass nodules. On 01/21/2021 patient underwent left upper lobe wedge resection and lymph node biopsies. Pathology revealed adenocarcinoma tumor size 1.8 x 1.8 x 1.1 cm. Single focus, G2 moderately differentiated, visceral pleural invasion identified, lymphovascular invasion not identified. Margins negative. Two lymph nodes were examined, negative for carcinoma. Pathological TNM stage pT2a pN0. Molecular studies to be obtained from [facility], this was ordered last week. Stage IB cancer without any high-risk features such as lymphovascular invasion. Surveillance imaging with CT chest/abdomen and pelvis performed in September 2021 showed new right lower lobe mass measuring 1.7 x 1.3 cm suspicious for new/metastatic lesion. Sub pleural ground-glass attenuation measuring 1.4 x 1.1 cm similar to previous exam. Second lesion in the right lower lobe posterior basal segment measuring 1.6 x 1.4 cm which is also suspicious. Subcarinal lymph nodes largest measuring 1.3 x 2.1 cm and large pretracheal lymph node measuring 1.5 x 1.5 cm all suspicious for disease recurrence.. CT abdomen showed stable 1.4 cm right adrenal lesion. Extensive fine interstitial markings throughout right lower lobe likely post radiation changes. PET-CT was recommended for further evaluation. Remote history of radiation for her right breast for cancer treatment. PET-CT performed 10/14/21 showed extensive FDG avid consolidation in the right middle lobe, worse than CT scan in September. Inflammatory versus infectious etiology along with malignancy. New FDG avid mediastinal lymphadenopathy suspicious for recurrence or metastatic malignancy. FDG avid vertebral lesions in C7 and T7 suspicious for metastasis. Stable right adrenal nodule showed no FDG activity. Patient started on combination therapy with pembrolizumab, carboplatin and pemetrexed on 11/13/2021. She is on denosumab 120 mg subQ monthly for bone metastasis. Repeat PET-CT Performed 03/24/2022 showed interval resolution of previously documented right FDG avid airspace disease involving right middle and right lower lobes as well as FDG avid mediastinal lymph nodes. Brain MRI from 03/2022 showed 3 mm enhancement on the left parietal lobe and 2 mm enhancement in the right parietal lobe concerning for small metastatic foci. Interval History Interval history: Patient is here in follow-up. She is doing better overall. She does feel weak and tired especially for a week after chemotherapy but this is gradually getting better. She denies any headache or dizziness. No nausea or emesis. No abdominal pain or diarrhea. No leg swelling. She reports some headaches, she he is stressed about her cancer. Review of Systems - Constitutional Reports as per HPI, Reports fatigue, Denies malaise, Denies weight loss - Cardiovascular Reports no additional cardiovascular complaints - Respiratory Reports no additional respiratory complaints - Gastrointestinal Reports no additional gastrointestinal complaints - Neurologic Reports weakness [facility] Medical History: Medical History (Last Reviewed 05/29/22 @ 15:20 by Marta Julian) Bilateral lung cancer Cancer of upper lobe of left lung Onset Date: ~2020 Cancer of upper lobe of right lung Onset Date: ~2019 COPD (chronic obstructive pulmonary disease) Depression GERD (gastroesophageal reflux disease) History of breast cancer Onset Date: ~2006 History of hepatitis C HTN (hypertension) Internal and external bleeding hemorrhoids New onset a-fib Obesity Pancytopenia Pulmonary nodules Smoker Tubular adenoma of colon Family History: Family History (Last Reviewed 05/29/22 @ 15:20 by Marta Julian) Mother History of lung cancer Brother History of lung cancer Maternal Grandmother Breast cancer in female Maternal Aunt Breast cancer in female Daughter Thyroid cancer Surgical History: Surgical History (Last Reviewed 05/29/22 @ 15:20 by Marta Julian) History of anterior colporrhaphy Onset Date: ~2016 History of back surgery Onset Date: ~2011 History of colonoscopy Onset Date: ~2014 History of hemorrhoidectomy Onset Date: ~2019 History of lobectomy of lung Onset Date: ~2019 History of lumpectomy of right breast Onset Date: ~2006 History of lung surgery Onset Date: ~2020 History of tubal ligation Social History: Social History (Last Reviewed 05/29/22 @ 15:20 by Marta Julian) Living Situation History: Household Members: Spouse Housing: Apartment Are you a primary home care chaplain to a significant other at home: No Do you presently have visiting nurse or other home services: No Alcohol History: Unable to assess alcohol history related to: Unable to respond Alcohol History Details: 1. How often do you have a drink containing alcohol?: b. Monthly or less 2. How many drinks containing alcohol do you have on a typical day when you are drinking?: a. 1 or 2 Tobacco History: Patient Tobacco Use Status: Never used Tobacco Tobacco use type: Cigar Years Smoked: 46 Smoked in Last 30 Days: Yes Second Hand Smoke Exposure: No Substance Use History: Use of substances other than those prescribed or required for medical reasons: Yes Substance Use Type: Marijuana Substance Use Type Other:: 5 mg edibles Last Used Substance Other:: IV heroin 8 years ago Domestic Abuse History: Have you been hit, kicked, punched, or otherwise hurt by someone within the past year? If so, by whom?: No Do you feel safe in your current relationship?: Yes Homicidal Assessment: Do you have thoughts of harming others: None Do you have a plan to hurt others: No Plan Do you have the means to hurt others: No Nutrition Assessment: Recently lost weight without trying: No Occupation Assessmet: service: No Current occupational status: disabled Current occupational exposures/hazards: No Home Medications and Allergies Current Medications: Current Medications Acetaminophen (Acetaminophen 325 Mg Tablet) 650 mg PO ONCE WALTER Stop: 08/21/22 23:59 Cyanocobalamin (Cyanocobalamin (Vitamin B-12) 1,000 Mcg/Ml Vial) 1,000 mcg IM ONCE WALTER Stop: 08/21/22 23:59 Denosumab (Denosumab 120 Mg/1.7 Ml Vial) 120 mg SUBCUT ONCE WALTER Stop: 08/21/22 23:59 Diphenhydramine HCl (Diphenhydramine Hcl 25 Mg Capsule) 25 mg PO ONCE WALTER Stop: 08/21/22 23:59 Heparin Sodium (Porcine) (Heparin Sodium,Porcine Flush 500 Unit/5 Ml Syringe) 500 unit IVFLUSH ONCE WALTER Stop: 08/21/22 23:59 Ondansetron HCl (Ondansetron Odt 8 Mg Tab.Rapdis) 8 mg TRANSLINGU ONCE WALTER Stop: 08/21/22 23:59 Pegfilgrastim (Pegfilgrastim Onpro 6 Mg/0.6 Ml Syr.W..Inj) 6 mg SUBCUT ONCE WALTER Stop: 08/21/22 23:59 Home Medications Medication Instructions Recorded Confirmed Type buprenorphine 4 mg-naloxone 1 mg 1 strip sublingual DAILY 01/18/22 06/12/22 History sublingual film (Suboxone) diltiazem HCl 180 mg 180 mg PO DAILY 01/18/22 06/12/22 History capsule,extended release 24 hr, controlled (DILT-XR) metoprolol tartrate 50 1 tab PO DAILY 01/18/22 06/12/22 History mg-hydrochlorothiazide 25 mg tablet milnacipran 50 mg tablet (Savella) 50 mg PO BID 01/18/22 06/12/22 History omeprazole 20 mg capsule,delayed 20 mg PO DAILY@0630 01/18/22 06/12/22 History release paroxetine HCl 20 mg tablet 60 mg PO DAILY 01/18/22 06/12/22 History umeclidinium 62.5 mcg-vilanterol 1 puff inhalation DAILY 01/18/22 06/12/22 History 25 mcg/actuation powdr for inhalation (Anoro Ellipta) cholecalciferol (vitamin D3) 50 50 mcg PO DAILY 02/17/22 06/12/22 History mcg (2,000 unit) tablet (Vitamin D3) dexamethasone 4 mg tablet 8 mg PO BID 02/17/22 06/12/22 History ipratropium 0.5 mg-albuterol 3 mg 3 ml inhalation Q6-8H PRN 02/17/22 06/12/22 History (2.5 mg base)/3 mL nebulization Shortness Of Breath Or Wheezing soln nicotine 21 mg/24 hr daily 1 patch topical DAILY 02/17/22 06/12/22 History transdermal patch ondansetron HCl 8 mg tablet 8 mg PO Q8H PRN Nausea 02/17/22 06/12/22 History simvastatin 20 mg tablet 20 mg PO DAILY 02/17/22 06/12/22 History Allergies Allergy/AdvReac Type Severity Reaction Status Date / Time lisinopril [LISINOPRIL] Allergy Severe SWELLING- Verified 04/10/22 11:23 ANGIOEDEMA codeine [CODEINE] Allergy Intermediate VOMITING/HIVES, Verified 04/10/22 11:23 vomiting, hives Exam Vital signs: Vital Signs Temp 97.5 F 08/21/22 11:02 Pulse 81 08/21/22 11:02 Resp 18 08/21/22 11:02 BP 143/94 H 08/21/22 11:02 Pulse Ox 98 08/21/22 11:02 O2 Del Method Room Air 08/21/22 11:02 O2 Flow Rate 2 07/31/22 11:01 Intake & Output 08/20/22 08/21/22 08/21/22 18:59 06:59 18:59 Other: Weight 90.2 kg [place] Weight in Grams [address]15 Weight 90.2 kg BMI result Body Mass Index 31.1 - Constitutional Present: no acute distress - Routine HEENT Exam Head: Present: normal inspection - Routine Neck Exam Absent: lymphadenopathy - Routine Respiratory Exam Present: CTAB. Absent: respiratory distress, rhonchi - Routine Cardiovascular Exam Cardiovascular: Present: RRR, S1, S2 - Routine Abdominal Exam Present: distended, soft. Absent: organomegaly - Routine Extremities Exam Present: pulses intact - Routine Skin Exam Present: intact. Absent: cyanosis Data - Labs CBC & Chem 7: 08/21/22 10:56 08/21/22 10:56 Assessment and Plan Patient Active problem list reviewed?: Yes (1) Bilateral lung cancer Problem details: (RUL lobectomy 07/2019 & LITA wedge 01/2021) Status: Chronic Assessment and plan: 1. This is a pleasant 61-year-old woman with bilateral lung adenocarcinoma. She has been diagnosed with recurrent metastatic lung cancer in the right with bone and brain metastasis in september 2021. She had right upper lobectomy/mediastinal lymphadenectomy on 08/03/2019 at [facility]. Pathology revealed invasive adenocarcinoma, tumor size 1.3 x 0.9 x 0.5 cm, moderately differentiated, tumor invades visceral pleura, no satellite nodules. Vascular invasion present, margins negative. Pathological TNM stage PT2a, pN0, MX. NGS panel negative for for alk rearrangement, ROS1 rearrangement, MET amplification, RET rearrangement and PTEN deletions, KRAS G12C mutation present, MSI stable, PD L1-TPS score 1, HER2 with breast scoring equivocal, stone TRK equivocal. RBM10 and TP53 alterations detected. On 01/21/2021 patient underwent left upper lobe wedge resection and lymph node biopsies. Pathology revealed adenocarcinoma tumor size 1.8 x 1.8 x 1.1 cm. Single focus, G2 moderately differentiated, visceral pleural invasion identified, lymphovascular invasion not identified. Margins negative. Two lymph nodes were examined, negative for carcinoma. Pathological TNM stage pT2a pN0. KRAS mutation Exon 2 ([id number]) positive, BRAF negative, PDL1 1%. EGFR and alk mutations were not tested as they are mutually exclusive if KRAS is present. ( it was sent to [facility] from [facility]). On 11/03/[address]-guided biopsy of right upper lobe mass, pathology -adenocarcinoma, moderately to poorly differentiated consistent with lung primary. PDL expression 1%, HER2 equivocal score 2+. Patient started on combination therapy with pembrolizumab, carboplatin and pemetrexed on 11/13/2021. She is on denosumab 120 mg subQ monthly for bone metastasis. Repeat PET-CT in July 2022 shows no FDG avid lesions and stable from prior scan in March 2022. Because of cytopenias, pemetrexed was discontinued from maintenance therapy. She is receiving single agent pembrolizumab at this time. 2. Bone metastasis. She is on denosumab. She is has been noncompliant calcium she was advised to take 600 mg calcium b.i.d.. 4. Pancytopenia/neutropenia related to chemotherapy. She has been unable to tolerate chemotherapy. 5. Renal insufficiency. Referral to Nephrology is pending. 6. Brain metastasis. 3-2 mm enhancing lesions noted on repeat brain MRI in March 2022. PET-CT performed July 2022 shows no significant changes compared to prior PET-CT in March 2022. No significant FDG activity anywhere. She is being maintained on pembrolizumab alone at this time. She is being referred to Radiation Oncology to see if she needs any treatment for her brain metastasis. Follow-up in 3 weeks. - Time Spent With Patient Time Spent with Patient (in minutes): 20
[2022-08-21 11:18] LABS: Basophils Absolute Auto 0.1 X10*3/uL (0.0-0.2); Basophils Percent Auto 1.2 % (0-2); Eosinophils Absolute Auto 0.1 X10*3/uL (0.0-0.4); Eosinophils Percent Auto 2.2 % (0-4); Hemoglobin 10.3 g/dl (12.0-16.0); Imm Gran Abs Auto 0.03 X10*3/uL (0.00-0.03); Imm Gran Pct Auto 0.5 % (0.0-0.4); Lymphocytes Absolute Auto 1.7 X10*3/uL (1.2-4.9); Lymphocytes Percent Auto 27.6 % (20-40); Mean Corpuscular HGB Conc 33.2 g/dl (31.0-35.0); Mean Corpuscular Hemoglobin 31.9 pg (27.0-33.0); Mean Platelet Volume 9.8 fL (9.4-12.3); Monocytes Absolute Auto 0.7 X10*3/uL (0.1-1.2); Neutrophils Absolute Auto 3.4 x10*3/uL (2.0-8.3); Neutrophils Percent Auto 56.5 % (45-73); Platelet Count 160 X10*3/uL (160-400); Red Blood Count 3.23 X10*6/uL (4.20-5.50); Red Cell Distribution Width 13.3 % (11.0-16.0)
[2022-08-21 11:28] LABS: Alanine Aminotransferase 9 U/L (0-31); Albumin Level 4.4 g/dL (3.5-5.0); Alkaline Phosphatase 57 U/L (39-117); Anion Gap 16 (12-20); Aspartate Amino Transferase 19 U/L (5-31); Bilirubin Total 0.5 mg/dL (0.0-1.0); Blood Urea Nitrogen 26 mg/dL (9-16); Calcium 9.6 mg/dL (8.4-10.2); Carbon Dioxide 32 mmol/L (22-29); Chloride 98 mmol/L (96-108); Estimated Glomerular Filt Rate 31; Glucose Random 137 mg/dL (60-115); Potassium 3.5 mmol/L (3.3-5.1); Sodium 142 mmol/L (135-145); Total Protein 7.5 g/dL (6.5-8.0)
[2022-08-21] MEDS: Ondansetron ODT 8 MG TAB.RAPDIS TRANSLINGU (11:42)
[2022-08-21] MEDS: Acetaminophen 325 MG TABLET 650 MG PO (11:42)
[2022-08-21] MEDS: diphenhydrAMINE HCL 25 MG CAPSULE PO (11:42)
--- NOTE | 2022-08-21 14:01 | MHC.HEMONC ---
c13 pembro today. Looking and feeling well, concerned re: recent scan results. Radiation oncology consult in process of being arranged. Labs drawn and reviewed. Premeds and pembro tolerated well. Pt aware of next appt. Discharge packet provided.
[2022-09-11 11:05] LABS: MANUAL DIFF FLAG NO
[2022-09-11 11:07] VITALS: BP 111/76; PULSE 75; RESP 18; TEMP 36.4; O2SAT 97; BMI 31.4
[2022-09-11 11:12] LABS: Basophils Absolute Auto 0.1 X10*3/uL (0.0-0.2); Basophils Percent Auto 1.2 % (0-2); Eosinophils Absolute Auto 0.2 X10*3/uL (0.0-0.4); Eosinophils Percent Auto 3.7 % (0-4); Hematocrit 29.9 % (37.0-47.0); Hemoglobin 10.1 g/dl (12.0-16.0); Imm Gran Abs Auto 0.01 X10*3/uL (0.00-0.03); Imm Gran Pct Auto 0.2 % (0.0-0.4); Lymphocytes Absolute Auto 1.5 X10*3/uL (1.2-4.9); Lymphocytes Percent Auto 28.8 % (20-40); Mean Corpuscular HGB Conc 33.8 g/dl (31.0-35.0); Mean Corpuscular Hemoglobin 32.1 pg (27.0-33.0); Mean Corpuscular Volume 94.9 fL (80.0-98.0); Mean Platelet Volume 9.3 fL (9.4-12.3); Monocytes Absolute Auto 0.7 X10*3/uL (0.1-1.2); Monocytes Percent Auto 12.6 % (2-11); Neutrophils Absolute Auto 2.8 x10*3/uL (2.0-8.3); Neutrophils Percent Auto 53.5 % (45-73); Platelet Count 150 X10*3/uL (160-400); Red Blood Count 3.15 X10*6/uL (4.20-5.50); Red Cell Distribution Width 12.9 % (11.0-16.0); White Blood Count 5.1 X10*3/uL (4.8-10.8)
[2022-09-11 11:44] LABS: Alanine Aminotransferase 8 U/L (0-31); Albumin Level 4.1 g/dL (3.5-5.0); Alkaline Phosphatase 49 U/L (39-117); Anion Gap 13 (12-20); Aspartate Amino Transferase 16 U/L (5-31); Bilirubin Total 0.4 mg/dL (0.0-1.0); Blood Urea Nitrogen 25 mg/dL (9-16); Calcium 9.6 mg/dL (8.4-10.2); Carbon Dioxide 31 mmol/L (22-29); Chloride 100 mmol/L (96-108); Creatinine Clr Calc Pharmacy 41.9; Estimated Glomerular Filt Rate 32; Glucose Random 107 mg/dL (60-115); Potassium 3.3 mmol/L (3.3-5.1); Sodium 141 mmol/L (135-145); Total Protein 7.2 g/dL (6.5-8.0)
[2022-09-11] MEDS: Ondansetron ODT 8 MG TAB.RAPDIS TRANSLINGU (13:03)
[2022-09-11] MEDS: Acetaminophen 325 MG TABLET 650 MG PO (13:03)
[2022-09-11] MEDS: diphenhydrAMINE HCL 25 MG CAPSULE PO (13:03)
[2022-09-11 13:48] LABS: HBS Num1 1.68 mIU/mL (0-7.99); HBc Num1 1.63 S/CO (0.00-0.79); HBsAGNum1 0.32 S/CO (0.00-0.99); Hepatitis B Surface Antigen Negative (Negative); ~Hepatitis B Surface Antibody NONREACTIVE (Nonreactive)
[2022-09-11 15:27] LABS: HBc Num2 1.61 S/CO; HBc Num3 1.64 S/CO; Hepatitis B Core Antibody Reactive (Nonreactive)
--- NOTE | 2022-09-11 15:36 | MHC.HEMONC ---
C13: PEMBROLIZUMAB- Labs obtained and reviewed prior to treatment. No complaints at this time. #22 angio placed to right lower arm- with positive blood return. VSS. Pre-medicated with Tylenol 650mg PO, Zofran 8mg PO, and Benadryl 25mg PO. Pembro infused and well tolerated. IV removed- discharge packet provided. Patient states she had MRI yesterday through [facility] and will be seeing radiation oncology next week.
[2022-09-13 07:13] LABS: Hepatitis B Core Antibody IgM NON-REACTIVE (NON-REACTIVE)
[2022-10-01 11:16] LABS: MANUAL DIFF FLAG NO
[2022-10-01 11:23] LABS: Basophils Absolute Auto 0.1 X10*3/uL (0.0-0.2); Basophils Percent Auto 0.9 % (0-2); Eosinophils Absolute Auto 0.2 X10*3/uL (0.0-0.4); Eosinophils Percent Auto 2.8 % (0-4); Hematocrit 33.6 % (37.0-47.0); Hemoglobin 11.4 g/dl (12.0-16.0); Imm Gran Abs Auto 0.02 X10*3/uL (0.00-0.03); Imm Gran Pct Auto 0.3 % (0.0-0.4); Lymphocytes Absolute Auto 1.7 X10*3/uL (1.2-4.9); Mean Corpuscular HGB Conc 33.9 g/dl (31.0-35.0); Mean Corpuscular Hemoglobin 31.8 pg (27.0-33.0); Mean Corpuscular Volume 93.9 fL (80.0-98.0); Mean Platelet Volume 9.7 fL (9.4-12.3); Monocytes Absolute Auto 0.8 X10*3/uL (0.1-1.2); Monocytes Percent Auto 10.1 % (2-11); Neutrophils Absolute Auto 4.6 x10*3/uL (2.0-8.3); Neutrophils Percent Auto 62.9 % (45-73); Platelet Count 174 X10*3/uL (160-400); Red Blood Count 3.58 X10*6/uL (4.20-5.50); Red Cell Distribution Width 12.6 % (11.0-16.0); White Blood Count 7.4 X10*3/uL (4.8-10.8)
[2022-10-01 11:24] VITALS: BP 128/87; PULSE 70; RESP 18; TEMP 36.4; O2SAT 98; BMI 31.4
[2022-10-01 11:52] LABS: Alanine Aminotransferase 10 U/L (0-31); Albumin Level 4.4 g/dL (3.5-5.0); Alkaline Phosphatase 54 U/L (39-117); Anion Gap 12 (12-20); Aspartate Amino Transferase 18 U/L (5-31); Bilirubin Total 0.5 mg/dL (0.0-1.0); Blood Urea Nitrogen 23 mg/dL (9-16); Calcium 9.7 mg/dL (8.4-10.2); Carbon Dioxide 32 mmol/L (22-29); Chloride 98 mmol/L (96-108); Creatinine Clr Calc Pharmacy 40.4; Estimated Glomerular Filt Rate 31; Glucose Random 122 mg/dL (60-115); Potassium 3.2 mmol/L (3.3-5.1); Sodium 139 mmol/L (135-145); Total Protein 8.3 g/dL (6.5-8.0)
[2022-10-01] MEDS: diphenhydrAMINE HCL 25 MG CAPSULE PO (12:10)
[2022-10-01] MEDS: Ondansetron ODT 8 MG TAB.RAPDIS TRANSLINGU (12:10)
[2022-10-01] MEDS: Acetaminophen 325 MG TABLET 650 MG PO (12:11)
[2022-10-01] MEDS: 0.9 % Sodium Chloride 500 ML IV (12:14)
[2022-10-01] MEDS: Potassium Chloride ER 20 MEQ TAB.ER.PRT PO (12:35)
--- NOTE | 2022-10-01 15:21 | MHC.HEMONC ---
Pt here for C14D1 Pembrolizumab (MATTI good til 05/06/23) Labs drawn by assistant laboratory director-specimen to lab. Pt states her belly aches today. States had nausea today with soft stool today. Cont on 2 L O2 via NC. Vital signs as noted. Lab results reviewed, potassium level 3.2, cr level 1.[address] Hughes (covering for Dr Samuels) notified. Plan for 500ml 0.9% NS, and 20meq kcl. #22 angio inserted in right AC with blood return noted. Pre medicated with tylenol, benadryl, zofran, 500ml 0.9% NS, 20 meq KCL po. Denosumab SC given as ordered (MATTI good til 11/26/22-request for new PA given to Sandra Whitlock) Pembrolizumab given as ordered-tolerated well. Peripheral IV removed-no edema or redness at site after removal of IV. Next appointment scheduled, Discharge packet given.
--- NOTE | 2022-10-16 10:47 | HO.HEMONCPA ---
Addendum entered by Joleen Goddard 10/19/22 11:40: PA FOR DESUNOMAB (XGEVA) ([id number]) APPROVED AUTH # [id number] START 10/16/22 EXPIRES 10/17/2023 SCANNED TO CHART Addendum entered by Joleen Goddard 10/19/22 09:05: PA FOR DESUNOMAB (XGEVA) ([id number]) APPROVED AUTH # [id number] EXPIRES 10/17/2023 SCANNED TO CHART Original Note: PA FOR DESUNOMAB (XGEVA) ([id number]) PENDING. AWAITING DECISION
[2022-10-23 11:01] LABS: MANUAL DIFF FLAG NO
[2022-10-23 11:12] VITALS: BP 138/88; PULSE 76; RESP 18; TEMP 36.5; O2SAT 99; BMI 31.4
[2022-10-23 11:20] LABS: Basophils Absolute Auto 0.1 X10*3/uL (0.0-0.2); Basophils Percent Auto 1.1 % (0-2); Eosinophils Absolute Auto 0.2 X10*3/uL (0.0-0.4); Eosinophils Percent Auto 2.4 % (0-4); Hematocrit 37.2 % (37.0-47.0); Hemoglobin 12.4 g/dl (12.0-16.0); Imm Gran Abs Auto 0.03 X10*3/uL (0.00-0.03); Imm Gran Pct Auto 0.4 % (0.0-0.4); Lymphocytes Absolute Auto 1.7 X10*3/uL (1.2-4.9); Lymphocytes Percent Auto 23.7 % (20-40); Mean Corpuscular HGB Conc 33.3 g/dl (31.0-35.0); Mean Corpuscular Hemoglobin 31.5 pg (27.0-33.0); Mean Corpuscular Volume 94.4 fL (80.0-98.0); Mean Platelet Volume 9.7 fL (9.4-12.3); Monocytes Absolute Auto 0.6 X10*3/uL (0.1-1.2); Monocytes Percent Auto 7.5 % (2-11); Neutrophils Absolute Auto 4.8 x10*3/uL (2.0-8.3); Neutrophils Percent Auto 64.9 % (45-73); Platelet Count 184 X10*3/uL (160-400); Red Blood Count 3.94 X10*6/uL (4.20-5.50); Red Cell Distribution Width 12.7 % (11.0-16.0); White Blood Count 7.4 X10*3/uL (4.8-10.8)
[2022-10-23 11:49] LABS: Alanine Aminotransferase 11 U/L (0-31); Albumin Level 4.6 g/dL (3.5-5.0); Alkaline Phosphatase 65 U/L (39-117); Anion Gap 15 (12-20); Aspartate Amino Transferase 20 U/L (5-31); Bilirubin Total 0.7 mg/dL (0.0-1.0); Blood Urea Nitrogen 18 mg/dL (9-16); Calcium 10.3 mg/dL (8.4-10.2); Carbon Dioxide 34 mmol/L (22-29); Chloride 97 mmol/L (96-108); Estimated Glomerular Filt Rate 40; Glucose Random 152 mg/dL (60-115); Potassium 3.3 mmol/L (3.3-5.1); Sodium 143 mmol/L (135-145); Total Protein 8.5 g/dL (6.5-8.0)
[2022-10-23] MEDS: Acetaminophen 325 MG TABLET 650 MG PO (11:58)
[2022-10-23] MEDS: Ondansetron ODT 8 MG TAB.RAPDIS TRANSLINGU (11:58)
[2022-10-23] MEDS: diphenhydrAMINE HCL 25 MG CAPSULE PO (11:58)
--- NOTE | 2022-10-23 12:59 | P.PNHO-ONC_ITS ---
Medical Summary - Medical Summary Date of Service: 10/23/22 Chief complaint: Follow-up and scheduled treatment Primary Care Provider: Daphne Rodriguez MD Medical Summary: Diagnosis: Right upper lobe Wedge resection in July 2019, adenocarcinoma Left lower lobe wedge resection in January 2021 adenocarcinoma She was diagnosed with right upper lobe lung adenocarcinoma and underwent right upper lobectomy/mediastinal lymphadenectomy on 08/03/2019 at [facility]. Pathology revealed invasive adenocarcinoma, tumor size 1.3 x 0.9 x 0.5 cm, moderately differentiated, tumor invades visceral pleura, no satellite nodules. Vascular invasion present, margins negative. Pathological TNM stage PT2a, pN0, MX. Surveillance CT chest with contrast performed 12/26/2020 showed stable postsurgical changes, 2 new/increasing suspicious areas in the right lower lobe nodules. Interval increase in suspicious appearing cavitary left upper lobe nodule. Numerous bilateral small ground-glass nodules. On 01/21/2021 patient underwent left upper lobe wedge resection and lymph node biopsies. Pathology revealed adenocarcinoma tumor size 1.8 x 1.8 x 1.1 cm. Single focus, G2 moderately differentiated, visceral pleural invasion identified, lymphovascular invasion not identified. Margins negative. Two lymph nodes were examined, negative for carcinoma. Pathological TNM stage pT2a pN0. Molecular studies to be obtained from [facility], this was ordered last week. Stage IB cancer without any high-risk features such as lymphovascular invasion. Surveillance imaging with CT chest/abdomen and pelvis performed in September 2021 showed new right lower lobe mass measuring 1.7 x 1.3 cm suspicious for new/metastatic lesion. Sub pleural ground-glass attenuation measuring 1.4 x 1.1 cm similar to previous exam. Second lesion in the right lower lobe posterior basal segment measuring 1.6 x 1.4 cm which is also suspicious. Subcarinal lymph nodes largest measuring 1.3 x 2.1 cm and large pretracheal lymph node measuring 1.5 x 1.5 cm all suspicious for disease recurrence.. CT abdomen showed stable 1.4 cm right adrenal lesion. Extensive fine interstitial markings throughout right lower lobe likely post radiation changes. PET-CT was recommended for further evaluation. Remote history of radiation for her right breast for cancer treatment. PET-CT performed 10/14/21 showed extensive FDG avid consolidation in the right middle lobe, worse than CT scan in September. Inflammatory versus infectious etiology along with malignancy. New FDG avid mediastinal lymphadenopathy suspicious for recurrence or metastatic malignancy. FDG avid vertebral lesions in C7 and T7 suspicious for metastasis. Stable right adrenal nodule showed no FDG activity. Patient started on combination therapy with pembrolizumab, carboplatin and pemetrexed on 11/13/2021. She is on denosumab 120 mg subQ monthly for bone metastasis. Repeat PET-CT Performed 03/24/2022 showed interval resolution of previously documented right FDG avid airspace disease involving right middle and right lower lobes as well as FDG avid mediastinal lymph nodes. Brain MRI from 03/2022 showed 3 mm enhancement on the left parietal lobe and 2 mm enhancement in the right parietal lobe concerning for small metastatic foci. Interval History Interval history: Patient is here in follow-up. She is doing fairly well. She was seen by radiation oncologist at [facility]. Repeat brain MRI did not show any he lesions, she was therefore not recommended radiation therapy. Her main concern is her kidney functions. She has no new complaints such as chest pain, shortness of breath, cough, fever chills. Review of Systems - Neurologic Reports weakness [facility] Medical History: Medical History (Last Reviewed 05/29/22 @ 15:20 by Marta Julian) Bilateral lung cancer Cancer of upper lobe of left lung Onset Date: ~2020 Cancer of upper lobe of right lung Onset Date: ~2019 COPD (chronic obstructive pulmonary disease) Depression GERD (gastroesophageal reflux disease) History of breast cancer Onset Date: ~2006 History of hepatitis C HTN (hypertension) Internal and external bleeding hemorrhoids New onset a-fib Obesity Pancytopenia Pulmonary nodules Smoker Tubular adenoma of colon Family History: Family History (Last Reviewed 05/29/22 @ 15:20 by Marta Julian) Mother History of lung cancer Brother History of lung cancer Maternal Grandmother Breast cancer in female Maternal Aunt Breast cancer in female Daughter Thyroid cancer Surgical History: Surgical History (Last Reviewed 05/29/22 @ 15:20 by Marta Julian) History of anterior colporrhaphy Onset Date: ~2016 History of back surgery Onset Date: ~2011 History of colonoscopy Onset Date: ~2014 History of hemorrhoidectomy Onset Date: ~2019 History of lobectomy of lung Onset Date: ~2019 History of lumpectomy of right breast Onset Date: ~2006 History of lung surgery Onset Date: ~2020 History of tubal ligation Social History: Social History (Last Reviewed 05/29/22 @ 15:20 by Marta Julian) Living Situation History: Household Members: Spouse Housing: Apartment Are you a primary childcare center director to a significant other at home: No Do you presently have visiting nurse or other home services: No Alcohol History: Unable to assess alcohol history related to: Unable to respond Alcohol History Details: 1. How often do you have a drink containing alcohol?: b. Monthly or less 2. How many drinks containing alcohol do you have on a typical day when you are drinking?: a. 1 or 2 Tobacco History: Patient Tobacco Use Status: Never used Tobacco Tobacco use type: Cigar Years Smoked: 46 Smoked in Last 30 Days: Yes Second Hand Smoke Exposure: No Substance Use History: Use of substances other than those prescribed or required for medical reasons : Yes Substance Use Type: Marijuana Substance Use Type Other:: 5 mg edibles Last Used Substance Other:: IV heroin 8 years ago Domestic Abuse History: Have you been hit, kicked, punched, or otherwise hurt by someone within the past year? If so, by whom?: No Do you feel safe in your current relationship?: Yes Homicidal Assessment: Do you have thoughts of harming others: None Do you have a plan to hurt others: No Plan Do you have the means to hurt others: No Nutrition Assessment: Recently lost weight without trying: No Occupation Assessmet: service: No Current occupational status: disabled Current occupational exposures/hazards: No Home Medications and Allergies Current Medications: Current Medications Acetaminophen (Acetaminophen 325 Mg Tablet) 650 mg PO ONCE WALTER Stop: 10/23/22 23:59 Last Admin: 10/23/22 11:58 Dose: 650 mg Diphenhydramine HCl (Diphenhydramine Hcl 25 Mg Capsule) 25 mg PO ONCE WALTER Stop: 10/23/22 23:59 Last Admin: 10/23/22 11:58 Dose: 25 mg Heparin Sodium (Porcine) (Heparin Sodium,Porcine Flush 500 Unit/5 Ml Syringe) 500 unit IVFLUSH ONCE WALTER Stop: 10/23/22 23:59 Pembrolizumab 200 mg/ Sodium (Chloride) 58 mls @ 116 mls/hr IV ONCE WALTER Stop: 10/23/22 23:59 Last Admin: 10/23/22 12:43 Dose: 116 mls/hr Ondansetron HCl (Ondansetron Odt 8 Mg Tab.Rapdis) 8 mg TRANSLINGU ONCE WALTER Stop: 10/23/22 23:59 Last Admin: 10/23/22 11:58 Dose: 8 mg Home Medications Medication Instructions Recorded Confirmed Type buprenorphine 4 mg-naloxone 1 mg 1 strip sublingual DAILY 01/18/22 10/01/22 History sublingual film (Suboxone) diltiazem HCl 180 mg 180 mg PO DAILY 01/18/22 10/01/22 History capsule,extended release 24 hr, controlled (DILT-XR) metoprolol tartrate 50 1 tab PO DAILY 01/18/22 10/01/22 History mg-hydrochlorothiazide 25 mg tablet milnacipran 50 mg tablet (Savella) 50 mg PO BID 01/18/22 10/01/22 History omeprazole 20 mg capsule,delayed 20 mg PO DAILY@0630 01/18/22 10/01/22 History release paroxetine HCl 20 mg tablet 60 mg PO DAILY 01/18/22 10/01/22 History umeclidinium 62.5 mcg-vilanterol 1 puff inhalation DAILY 01/18/22 10/01/22 History 25 mcg/actuation powdr for inhalation (Anoro Ellipta) cholecalciferol (vitamin D3) 50 50 mcg PO DAILY 02/17/22 10/01/22 History mcg (2,000 unit) tablet (Vitamin D3) dexamethasone 4 mg tablet 8 mg PO BID 02/17/22 10/01/22 History ipratropium 0.5 mg-albuterol 3 mg 3 ml inhalation Q6-8H PRN 02/17/22 10/01/22 History (2.5 mg base)/3 mL nebulization Shortness Of Breath Or Wheezing soln nicotine 21 mg/24 hr daily 1 patch topical DAILY 02/17/22 10/01/22 History transdermal patch ondansetron HCl 8 mg tablet 8 mg PO Q8H PRN Nausea 02/17/22 10/01/22 History simvastatin 20 mg tablet 20 mg PO DAILY 02/17/22 10/01/22 History Allergies Allergy/AdvReac Type Severity Reaction Status Date / Time lisinopril [LISINOPRIL] Allergy Severe SWELLING- Verified 04/10/22 11:23 ANGIOEDEMA codeine [CODEINE] Allergy Intermediate VOMITING/HIVES, Verified 04/10/22 11:23 vomiting, hives Exam Vital signs: Vital Signs Temp 97.7 F 10/23/22 11:12 Pulse 76 10/23/22 11:12 Resp 18 10/23/22 11:12 BP 138/88 10/23/22 11:12 Pulse Ox 99 10/23/22 11:12 O2 Del Method Room Air 10/23/22 11:12 O2 Flow Rate 2 09/11/22 11:07 Intake & Output 10/22/22 10/23/22 10/23/22 18:59 06:59 18:59 Other: Weight 91 kg [place] Weight in Grams 17228 Weight 91 kg BMI result Body Mass Index 31.4 - Constitutional Present: no acute distress - Routine HEENT Exam Head: Present: normal inspection - Routine Neck Exam Absent: lymphadenopathy - Routine Respiratory Exam Present: CTAB. Absent: respiratory distress, rhonchi - Routine Cardiovascular Exam Cardiovascular: Present: RRR, S1, S2 - Routine Abdominal Exam Present: distended, soft. Absent: organomegaly - Routine Extremities Exam Present: pulses intact - Routine Skin Exam Present: intact. Absent: cyanosis Data - Labs CBC & Chem 7: 10/23/22 10:59 10/23/22 10:59 Assessment and Plan Patient Active problem list reviewed?: Yes (1) Bilateral lung cancer Problem details: (RUL lobectomy 07/2019 & LITA wedge 01/2021) Status: Chronic Assessment and plan: 1. This is a pleasant 62-year-old woman with bilateral lung adenocarcinoma. She has been diagnosed with recurrent metastatic lung cancer in the right with bone and brain metastasis in september 2021. She had right upper lobectomy/mediastinal lymphadenectomy on 08/03/2019 at [facility]. Pathology revealed invasive adenocarcinoma, tumor size 1.3 x 0.9 x 0.5 cm, moderately differentiated, tumor invades visceral pleura, no satellite nodules. Vascular invasion present, margins negative. Pathological TNM stage PT2a, pN0, MX. NGS panel negative for for alk rearrangement, ROS1 rearrangement, MET amplification, RET rearrangement and PTEN deletions, KRAS G12C mutation present, MSI stable, PD L1-TPS score 1, HER2 with breast scoring equivocal, stone TRK equivocal. RBM10 and TP53 alterations detected. On 01/21/2021 patient underwent left upper lobe wedge resection and lymph node biopsies. Pathology revealed adenocarcinoma tumor size 1.8 x 1.8 x 1.1 cm. Single focus, G2 moderately differentiated, visceral pleural invasion identified, lymphovascular invasion not identified. Margins negative. Two lymph nodes were examined, negative for carcinoma. Pathological TNM stage pT2a pN0. KRAS mutation Exon 2 ([id number]) positive, BRAF negative, PDL1 1%. EGFR and alk mutations were not tested as they are mutually exclusive if KRAS is present. ( it was sent to [email or web address] from [facility]). On 11/03/[address]-guided biopsy of right upper lobe mass, pathology -adenocarcinoma, moderately to poorly differentiated consistent with lung primary. PDL expression 1%, HER2 equivocal score 2+. Patient started on combination therapy with pembrolizumab, carboplatin and pemetrexed on 11/13/2021. She is on denosumab 120 mg subQ monthly for bone metastasis. Repeat PET-CT in July 2022 shows no FDG avid lesions and stable from prior scan in March 2022. Because of cytopenias, pemetrexed was discontinued from maintenance therapy. She is receiving single agent pembrolizumab at this time. 2. Bone metastasis. She is on denosumab. She is has been noncompliant calcium she was advised to take 600 mg calcium b.i.d.. 4. Pancytopenia/neutropenia related to chemotherapy. She has been unable to tolerate chemotherapy. 5. Renal insufficiency. She was seen by Nephrology. Primary suspect appears to be pemetrexed. He Keytruda could also cause kidney injury. Nephrology is also felt that patient was hypertensive and dry. Recommendation was to stop hydrochlorothiazide and receive IV hydration. 6. Brain metastasis. Last brain MRI at [facility] in September 2022 was negative. PET-CT performed July 2022 shows no significant changes compared to prior PET- CT in March 2022. No significant FDG activity anywhere. She is being maintained on pembrolizumab alone at this time. Follow-up in 3 weeks. - Time Spent With Patient Time Spent with Patient (in minutes): 20
--- NOTE | 2022-10-23 15:13 | MHC.HEMONC ---
C15 pembro given today. Labs drawn and reviewed, ok to proceed today. #22 IV placed in right forearm. Premeds and pembro tolerated well. No denosumab today per Dr Samuels. It will be given every 6 weeks, with every other pembro. Pt aware of next appt, discharge packet provided.
--- NOTE | 2022-11-12 09:50 | HE.ONCSEC ---
LVM reminding pt of appt on 11/13/22
[2022-11-13 10:59] LABS: MANUAL DIFF FLAG NO
[2022-11-13 11:16] VITALS: BP 158/86; PULSE 73; RESP 18; TEMP 36.3; O2SAT 96; BMI 32.6
[2022-11-13 11:20] LABS: Basophils Absolute Auto 0.1 X10*3/uL (0.0-0.2); Basophils Percent Auto 0.8 % (0-2); Eosinophils Absolute Auto 0.2 X10*3/uL (0.0-0.4); Eosinophils Percent Auto 2.6 % (0-4); Hematocrit 31.4 % (37.0-47.0); Hemoglobin 10.5 g/dl (12.0-16.0); Imm Gran Abs Auto 0.04 X10*3/uL (0.00-0.03); Imm Gran Pct Auto 0.6 % (0.0-0.4); Lymphocytes Absolute Auto 1.7 X10*3/uL (1.2-4.9); Lymphocytes Percent Auto 25.6 % (20-40); Mean Corpuscular HGB Conc 33.4 g/dl (31.0-35.0); Mean Corpuscular Hemoglobin 32.5 pg (27.0-33.0); Mean Corpuscular Volume 97.2 fL (80.0-98.0); Mean Platelet Volume 9.9 fL (9.4-12.3); Monocytes Absolute Auto 0.7 X10*3/uL (0.1-1.2); Monocytes Percent Auto 10.4 % (2-11); Neutrophils Absolute Auto 3.9 x10*3/uL (2.0-8.3); Platelet Count 183 X10*3/uL (160-400); Red Blood Count 3.23 X10*6/uL (4.20-5.50); Red Cell Distribution Width 13.2 % (11.0-16.0); White Blood Count 6.6 X10*3/uL (4.8-10.8)
[2022-11-13 13:03] LABS: Anion Gap 18 (12-20); Blood Urea Nitrogen 18 mg/dL (9-16); Carbon Dioxide 28 mmol/L (22-29); Chloride 101 mmol/L (96-108); Estimated Glomerular Filt Rate 43; Potassium 3.8 mmol/L (3.3-5.1); Sodium 143 mmol/L (135-145)
[2022-11-13 13:04] LABS: Alanine Aminotransferase 9 U/L (0-31); Alkaline Phosphatase 51 U/L (39-117); Aspartate Amino Transferase 15 U/L (5-31); Bilirubin Total 0.3 mg/dL (0.0-1.0); Calcium 9.5 mg/dL (8.4-10.2); Glucose Random 100 mg/dL (60-115)
[2022-11-13 13:05] LABS: Albumin Level 4.2 g/dL (3.5-5.0); Total Protein 7.6 g/dL (6.5-8.0)
[2022-11-13] MEDS: Acetaminophen 325 MG TABLET 650 MG PO (13:23)
[2022-11-13] MEDS: diphenhydrAMINE HCL 25 MG CAPSULE PO (13:23)
[2022-11-13] MEDS: Ondansetron ODT 8 MG TAB.RAPDIS TRANSLINGU (13:23)
--- NOTE | 2022-11-13 16:23 | MHC.HEMONC ---
C16: PEMBRO- Labs obtained and reviewed. CMP resulted after 2 hours due to lab analyzer down. Patient reports feeling well. No major side effects. #22 angio placed to left ac with positive effect. Pre-medicted with Tylenol 650mg PO, Benadryl 25mg PO, Zofran 8mg PO. Pembro infused. q6 Denosumab 120mg administered to left upper upper and well tolerated. Patient to return in 3 weeks for chemo. Discharge packet provided. Edith to assist with transportation home as patient missed ride due to delay with lab.
--- NOTE | 2022-11-27 10:41 | HE.ONCSEC ---
Called Steph for ins referral auth.
--- NOTE | 2022-12-04 11:18 | MHC.HEMONC ---
Patient called to reschedule chemotherapy due to transportation issues. Patient requested to move treatment to next Wednesday. Dr. Samuels notified. Chemotherapy pharmacy aware. Follow up with Dr. Samuels cancelled.
--- NOTE | 2022-12-11 08:56 | HE.ONCSEC ---
LVM with Regina requesting Ins Referral for 6 addl visits start date of 12/11/22. Current authorization all 6 visits have been used.
[2022-12-11 11:04] LABS: MANUAL DIFF FLAG NO
[2022-12-11 11:09] LABS: Basophils Absolute Auto 0.1 X10*3/uL (0.0-0.2); Basophils Percent Auto 1.3 % (0-2); Eosinophils Absolute Auto 0.3 X10*3/uL (0.0-0.4); Eosinophils Percent Auto 3.7 % (0-4); Hematocrit 32.9 % (37.0-47.0); Imm Gran Abs Auto 0.02 X10*3/uL (0.00-0.03); Imm Gran Pct Auto 0.3 % (0.0-0.4); Lymphocytes Absolute Auto 1.8 X10*3/uL (1.2-4.9); Mean Corpuscular HGB Conc 33.4 g/dl (31.0-35.0); Mean Corpuscular Hemoglobin 32.1 pg (27.0-33.0); Mean Corpuscular Volume 95.9 fL (80.0-98.0); Mean Platelet Volume 9.8 fL (9.4-12.3); Monocytes Absolute Auto 0.8 X10*3/uL (0.1-1.2); Monocytes Percent Auto 10.6 % (2-11); Neutrophils Absolute Auto 4.1 x10*3/uL (2.0-8.3); Neutrophils Percent Auto 58.1 % (45-73); Platelet Count 185 X10*3/uL (160-400); Red Blood Count 3.43 X10*6/uL (4.20-5.50); Red Cell Distribution Width 12.9 % (11.0-16.0); White Blood Count 7.1 X10*3/uL (4.8-10.8)
[2022-12-11 11:14] VITALS: BP 128/88; PULSE 74; RESP 18; TEMP 36.6; O2SAT 96; BMI 32.0
[2022-12-11 11:25] LABS: Alanine Aminotransferase 8 U/L (0-31); Albumin Level 4.4 g/dL (3.5-5.0); Alkaline Phosphatase 51 U/L (39-117); Anion Gap 16 (12-20); Aspartate Amino Transferase 15 U/L (5-31); Bilirubin Total 0.5 mg/dL (0.0-1.0); Blood Urea Nitrogen 31 mg/dL (9-16); Carbon Dioxide 28 mmol/L (22-29); Chloride 99 mmol/L (96-108); Estimated Glomerular Filt Rate 41; Glucose Random 119 mg/dL (60-115); Potassium 3.8 mmol/L (3.3-5.1); Sodium 139 mmol/L (135-145); Total Protein 7.9 g/dL (6.5-8.0)
[2022-12-11] MEDS: Ondansetron ODT 8 MG TAB.RAPDIS TRANSLINGU (11:36)
[2022-12-11] MEDS: Acetaminophen 325 MG TABLET 650 MG PO (11:36)
[2022-12-11] MEDS: diphenhydrAMINE HCL 25 MG CAPSULE PO (11:37)
--- NOTE | 2022-12-11 15:11 | MHC.HEMONC ---
c17 pembrolizumab. Labs drawn and reviewed. #22 IV placed in right AC. Pembrolizumab and premeds tolerated well. IV removed, insertion site appears normal. Pt aware of next appt, discharge packet provided.
[2022-12-31 10:50] LABS: MANUAL DIFF FLAG NO
[2022-12-31 11:04] LABS: Basophils Percent Auto 0.4 % (0-2); Eosinophils Absolute Auto 0.1 X10*3/uL (0.0-0.4); Eosinophils Percent Auto 0.5 % (0-4); Hematocrit 33.6 % (37.0-47.0); Hemoglobin 11.3 g/dl (12.0-16.0); Imm Gran Abs Auto 0.08 X10*3/uL (0.00-0.03); Imm Gran Pct Auto 0.9 % (0.0-0.4); Lymphocytes Absolute Auto 1.1 X10*3/uL (1.2-4.9); Lymphocytes Percent Auto 12.1 % (20-40); Mean Corpuscular HGB Conc 33.6 g/dl (31.0-35.0); Mean Corpuscular Hemoglobin 31.8 pg (27.0-33.0); Mean Corpuscular Volume 94.6 fL (80.0-98.0); Mean Platelet Volume 9.3 fL (9.4-12.3); Monocytes Absolute Auto 0.5 X10*3/uL (0.1-1.2); Monocytes Percent Auto 4.9 % (2-11); Neutrophils Absolute Auto 7.6 x10*3/uL (2.0-8.3); Neutrophils Percent Auto 81.2 % (45-73); Platelet Count 292 X10*3/uL (160-400); Red Blood Count 3.55 X10*6/uL (4.20-5.50); Red Cell Distribution Width 12.5 % (11.0-16.0); White Blood Count 9.4 X10*3/uL (4.8-10.8)
[2022-12-31 11:08] VITALS: BP 120/73; PULSE 79; RESP 18; TEMP 36.6; O2SAT 98; BMI 32.0
[2022-12-31 11:24] LABS: Alanine Aminotransferase 12 U/L (0-31); Albumin Level 4.3 g/dL (3.5-5.0); Alkaline Phosphatase 95 U/L (39-117); Anion Gap 22 (12-20); Aspartate Amino Transferase 14 U/L (5-31); Bilirubin Total 0.7 mg/dL (0.0-1.0); Blood Urea Nitrogen 33 mg/dL (9-16); Calcium 11.4 mg/dL (8.4-10.2); Carbon Dioxide 30 mmol/L (22-29); Chloride 89 mmol/L (96-108); Creatinine Clr Calc Pharmacy 42.1; Estimated Glomerular Filt Rate 32; Glucose Random 247 mg/dL (60-115); Sodium 138 mmol/L (135-145); Total Protein 9.2 g/dL (6.5-8.0)
[2022-12-31] MEDS: Ondansetron ODT 8 MG TAB.RAPDIS TRANSLINGU (12:22)
[2022-12-31] MEDS: Acetaminophen 325 MG TABLET 650 MG PO (12:22)
[2022-12-31] MEDS: diphenhydrAMINE HCL 25 MG CAPSULE PO (12:23)
[2022-12-31] MEDS: Potassium Chloride ER 20 MEQ TAB.ER.PRT PO (12:23)
--- NOTE | 2022-12-31 16:34 | MHC.HEMONC ---
C18: PEMBRO. Labs obtained and reviewed. Potassium 3.0 Calcium 11.4 Bun/Creat 33/1.62, Patient reports ongoing headache for 2 weeks associated with dizziness. Patient also reports poor po intake over the last several days with constipation. Patient is tearful at times and expressing concern over her health. Dr. Hughes notified of above. Patient requested to have treatment today. Dr. Hughes advised patient to be evaluated in ED after completion of treatment. #22angio placed to right AC with positive blood return. NS 500mls administered over 2 hours.Pre-medicated with Tylenol 650mg PO, Zofran 8mg PO, and Pepcid 20mg PO. Potassium replaced. Denosumab 120mg s/c administered to left upper arm. Infusion well tolerated. Patient states she wants to go home and headache is resolving. Also states she will take two stool softeners at bedtime. Educated patient if symptoms worsen she should be evaluated in ED. Patient verbalizes understanding. Discharge packet provided. Catheter removed- intact- no redness or swelling noted at IV site. Patient has follow up with Dr. Samuels next week.
--- NOTE | 2023-01-06 15:53 | HE.ONCSEC ---
Asked pt for updated photo ID, pt indicated she does not have one.
[2023-01-06 15:55] VITALS: BP 129/87; PULSE 65; O2SAT 100
--- NOTE | 2023-01-06 15:57 | PM.HEMONCPN ---
Medical Summary - Medical Summary Date of Service: 01/06/23 Chief complaint: follow-up Primary Care Provider: Daphne Rodriguez MD Medical Summary: Diagnosis: Right upper lobe Wedge resection in July 2019, adenocarcinoma Left lower lobe wedge resection in January 2021 adenocarcinoma She was diagnosed with right upper lobe lung adenocarcinoma and underwent right upper lobectomy/mediastinal lymphadenectomy on 08/03/2019 at [facility]. Pathology revealed invasive adenocarcinoma, tumor size 1.3 x 0.9 x 0.5 cm, moderately differentiated, tumor invades visceral pleura, no satellite nodules. Vascular invasion present, margins negative. Pathological TNM stage PT2a, pN0, MX. Surveillance CT chest with contrast performed 12/26/2020 showed stable postsurgical changes, 2 new/increasing suspicious areas in the right lower lobe nodules. Interval increase in suspicious appearing cavitary left upper lobe nodule. Numerous bilateral small ground-glass nodules. On 01/21/2021 patient underwent left upper lobe wedge resection and lymph node biopsies. Pathology revealed adenocarcinoma tumor size 1.8 x 1.8 x 1.1 cm. Single focus, G2 moderately differentiated, visceral pleural invasion identified, lymphovascular invasion not identified. Margins negative. Two lymph nodes were examined, negative for carcinoma. Pathological TNM stage pT2a pN0. Molecular studies to be obtained from [facility], this was ordered last week. Stage IB cancer without any high-risk features such as lymphovascular invasion. Surveillance imaging with CT chest/abdomen and pelvis performed in September 2021 showed new right lower lobe mass measuring 1.7 x 1.3 cm suspicious for new/metastatic lesion. Sub pleural ground-glass attenuation measuring 1.4 x 1.1 cm similar to previous exam. Second lesion in the right lower lobe posterior basal segment measuring 1.6 x 1.4 cm which is also suspicious. Subcarinal lymph nodes largest measuring 1.3 x 2.1 cm and large pretracheal lymph node measuring 1.5 x 1.5 cm all suspicious for disease recurrence.. CT abdomen showed stable 1.4 cm right adrenal lesion. Extensive fine interstitial markings throughout right lower lobe likely post radiation changes. PET-CT was recommended for further evaluation. Remote history of radiation for her right breast for cancer treatment. PET-CT performed 10/14/21 showed extensive FDG avid consolidation in the right middle lobe, worse than CT scan in September. Inflammatory versus infectious etiology along with malignancy. New FDG avid mediastinal lymphadenopathy suspicious for recurrence or metastatic malignancy. FDG avid vertebral lesions in C7 and T7 suspicious for metastasis. Stable right adrenal nodule showed no FDG activity. Patient started on combination therapy with pembrolizumab, carboplatin and pemetrexed on 11/13/2021. She is on denosumab 120 mg subQ monthly for bone metastasis. Repeat PET-CT Performed 03/24/2022 showed interval resolution of previously documented right FDG avid airspace disease involving right middle and right lower lobes as well as FDG avid mediastinal lymph nodes. Brain MRI from 03/2022 showed 3 mm enhancement on the left parietal lobe and 2 mm enhancement in the right parietal lobe concerning for small metastatic foci. Interval History Interval history: Patient is here in follow-up. She reports headaches that have been going on for about 2 weeks. This is not associated with any nausea or dizziness. No focal weakness, numbness or tingling. She also had upper respiratory symptoms that have since resolved. She got her treatment last . Review of Systems - Constitutional Reports as per HPI, Denies lack of energy, Denies malaise, Denies night sweats, Denies weight loss - Cardiovascular Reports no additional cardiovascular complaints - Respiratory Reports no additional respiratory complaints - Gastrointestinal Reports no additional gastrointestinal complaints - Neurologic Reports weakness PMFSH Medical History: Medical History (Last Reviewed 01/06/23 @ 15:55 by Alesha Desai) Bilateral lung cancer Cancer of upper lobe of left lung Onset Date: ~2020 Cancer of upper lobe of right lung Onset Date: ~2019 COPD (chronic obstructive pulmonary disease) Depression GERD (gastroesophageal reflux disease) History of breast cancer Onset Date: ~2006 History of hepatitis C HTN (hypertension) Internal and external bleeding hemorrhoids New onset a-fib Obesity Pancytopenia Pulmonary nodules Smoker Tubular adenoma of colon Family History: Family History (Last Reviewed 01/06/23 @ 15:55 by Alesha Desai) Mother History of lung cancer Brother History of lung cancer Maternal Grandmother Breast cancer in female Maternal Aunt Breast cancer in female Daughter Thyroid cancer Surgical History: Surgical History (Last Reviewed 01/06/23 @ 15:55 by Alesha Desai) History of anterior colporrhaphy Onset Date: ~2016 History of back surgery Onset Date: ~2011 History of colonoscopy Onset Date: ~2014 History of hemorrhoidectomy Onset Date: ~2019 History of lobectomy of lung Onset Date: ~2019 History of lumpectomy of right breast Onset Date: ~2006 History of lung surgery Onset Date: ~2020 History of tubal ligation Social History: Social History (Last Reviewed 01/06/23 @ 15:55 by Alesha Desai) Living Situation History: Household Members: Spouse Housing: Apartment Are you a primary managed care nurse to a significant other at home: No Do you presently have visiting nurse or other home services: No Alcohol History: Unable to assess alcohol history related to: Unable to respond Alcohol History Details: 1. How often do you have a drink containing alcohol?: b. Monthly or less 2. How many drinks containing alcohol do you have on a typical day when you are drinking?: a. 1 or 2 Tobacco History: Patient Tobacco Use Status: Never used Tobacco Tobacco use type: Cigar Years Smoked: 46 Smoked in Last 30 Days: Yes Second Hand Smoke Exposure: No Substance Use History: Use of substances other than those prescribed or required for medical reasons: Yes Substance Use Type: Marijuana Substance Use Type Other:: 5 mg edibles Last Used Substance Other:: IV heroin 8 years ago Domestic Abuse History: Have you been hit, kicked, punched, or otherwise hurt by someone within the past year? If so, by whom?: No Do you feel safe in your current relationship?: Yes Homicidal Assessment: Do you have thoughts of harming others: None Do you have a plan to hurt others: No Plan Do you have the means to hurt others: No Nutrition Assessment: Recently lost weight without trying: No Occupation Assessmet: service: No Current occupational status: disabled Current occupational exposures/hazards: No Home Medications and Allergies Home Medications Medication Instructions Recorded Confirmed Type buprenorphine 4 mg-naloxone 1 mg 1 strip sublingual DAILY 01/18/22 01/06/23 History sublingual film (Suboxone) metoprolol tartrate 50 1 tab PO DAILY 01/18/22 01/06/23 History mg-hydrochlorothiazide 25 mg tablet milnacipran 50 mg tablet (Savella) 50 mg PO BID 01/18/22 01/06/23 History omeprazole 20 mg capsule,delayed 20 mg PO DAILY@0630 01/18/22 01/06/23 History release paroxetine HCl 20 mg tablet 60 mg PO DAILY 01/18/22 01/06/23 History umeclidinium 62.5 mcg-vilanterol 1 puff inhalation DAILY 01/18/22 01/06/23 History 25 mcg/actuation powdr for inhalation (Anoro Ellipta) cholecalciferol (vitamin D3) 50 50 mcg PO DAILY 02/17/22 01/06/23 History mcg (2,000 unit) tablet (Vitamin D3) dexamethasone 4 mg tablet 8 mg PO BID 02/17/22 01/06/23 History ipratropium 0.5 mg-albuterol 3 mg 3 ml inhalation Q6-8H PRN 02/17/22 01/06/23 History (2.5 mg base)/3 mL nebulization Shortness Of Breath Or Wheezing soln simvastatin 20 mg tablet 20 mg PO DAILY 02/17/22 01/06/23 History Allergies Allergy/AdvReac Type Severity Reaction Status Date / Time lisinopril [LISINOPRIL] Allergy Severe SWELLING- Verified 01/06/23 15:55 ANGIOEDEMA codeine [CODEINE] Allergy Intermediate VOMITING/HIVES, Verified 01/06/23 15:55 vomiting, hives Exam Vital signs: Vital Signs Temp 97.8 F 12/31/22 11:08 Pulse 65 01/06/23 15:55 Resp 18 12/31/22 11:08 BP 129/87 01/06/23 15:55 Pulse Ox 100 01/06/23 15:55 O2 Del Method Room Air 01/06/23 15:55 O2 Flow Rate 2 12/11/22 11:14 Weight 92.7 kg BMI result Body Mass Index 32.0 - Constitutional Present: no acute distress - Routine HEENT Exam Head: Present: normal inspection - Routine Neck Exam Absent: lymphadenopathy - Routine Respiratory Exam Present: CTAB. Absent: respiratory distress, rhonchi - Routine Cardiovascular Exam Cardiovascular: Present: RRR, S1, S2 - Routine Abdominal Exam Present: distended, soft. Absent: organomegaly - Routine Extremities Exam Present: pulses intact - Routine Skin Exam Present: intact. Absent: cyanosis Data - Labs CBC & Chem 7: 12/31/22 10:49 12/31/22 10:49 Assessment and Plan Patient Active problem list reviewed?: Yes (1) Bilateral lung cancer Problem details: (RUL lobectomy 07/2019 & LITA wedge 01/2021) Status: Chronic Assessment and plan: 1. This is a pleasant 62-year-old woman with bilateral lung adenocarcinoma. She has been diagnosed with recurrent metastatic lung cancer in the right with bone and brain metastasis in september 2021. She had right upper lobectomy/mediastinal lymphadenectomy on 08/03/2019 at [facility]. Pathology revealed invasive adenocarcinoma, tumor size 1.3 x 0.9 x 0.5 cm, moderately differentiated, tumor invades visceral pleura, no satellite nodules. Vascular invasion present, margins negative. Pathological TNM stage PT2a, pN0, MX. NGS panel negative for for alk rearrangement, ROS1 rearrangement, MET amplification, RET rearrangement and PTEN deletions, KRAS G12C mutation present, MSI stable, PD L1-TPS score 1, HER2 with breast scoring equivocal, stone TRK equivocal. RBM10 and TP53 alterations detected. On 01/21/2021 patient underwent left upper lobe wedge resection and lymph node biopsies. Pathology revealed adenocarcinoma tumor size 1.8 x 1.8 x 1.1 cm. Single focus, G2 moderately differentiated, visceral pleural invasion identified, lymphovascular invasion not identified. Margins negative. Two lymph nodes were examined, negative for carcinoma. Pathological TNM stage pT2a pN0. KRAS mutation Exon 2 ([id number]) positive, BRAF negative, PDL1 1%. EGFR and alk mutations were not tested as they are mutually exclusive if KRAS is present. ( it was sent to [facility] from [facility]). On 11/03/[address]-guided biopsy of right upper lobe mass, pathology -adenocarcinoma, moderately to poorly differentiated consistent with lung primary. PDL expression 1%, HER2 equivocal score 2+. Patient started on combination therapy with pembrolizumab, carboplatin and pemetrexed on 11/13/2021. She is on denosumab 120 mg subQ monthly for bone metastasis. Repeat PET-CT in July 2022 shows no FDG avid lesions and stable from prior scan in March 2022. Because of cytopenias, pemetrexed was discontinued from maintenance therapy. She is receiving single agent pembrolizumab at this time. 2. Bone metastasis. She is on denosumab. She is has been noncompliant calcium she was advised to take 600 mg calcium b.i.d.. 4. Pancytopenia/neutropenia related to chemotherapy. She has been unable to tolerate chemotherapy. 5. Renal insufficiency. She was seen by Nephrology. Primary suspect appears to be pemetrexed. He Keytruda could also cause kidney injury. Nephrology is also felt that patient was hypertensive and dry. Recommendation was to stop hydrochlorothiazide and receive IV hydration. 6. Brain metastasis. Last brain MRI at [facility] in September 2022 was negative. She reports recurrent headaches. I will order a CT scan of brain. PET-CT performed July 2022 shows no significant changes compared to prior PET-CT in March 2022. No significant FDG activity anywhere. She is being maintained on pembrolizumab alone at this time. Repeat PET-CT has been scheduled for January 2023. Follow-up in 6 weeks. - Time Spent With Patient Time Spent with Patient (in minutes): 20
--- NOTE | 2023-01-06 16:40 | MHC.HEMONC ---
Per Dr Samuels this nurse called patient because last labs K+ was 3.0, calcium was elevated 11.4, and Dr Samuels wants her to stop her calcium and Vit D. and repeat cmp. Pt states she is still in the hospital and can she get her labs done now. Dr Samuels is putting in orders. Pt will have labs today.
[2023-01-06 17:46] LABS: Alanine Aminotransferase 8 U/L (0-31); Alkaline Phosphatase 62 U/L (39-117); Anion Gap 19 (12-20); Aspartate Amino Transferase 16 U/L (5-31); Bilirubin Total 0.4 mg/dL (0.0-1.0); Blood Urea Nitrogen 32 mg/dL (9-16); Calcium 10.7 mg/dL (8.4-10.2); Carbon Dioxide 28 mmol/L (22-29); Chloride 94 mmol/L (96-108); Creatinine Clr Calc Pharmacy 45.7; Estimated Glomerular Filt Rate 35; Glucose Random 113 mg/dL (60-115); Sodium 138 mmol/L (135-145); Total Protein 8.1 g/dL (6.5-8.0)
--- NOTE | 2023-01-07 10:27 | HO.HEMONCPA ---
Addendum entered by Sandra Whitlock 03/01/23 13:58: PET/CT SCAN APPT WALTER'ED AT [facility]. PER VIRA ON 03/11/23 at 3:30PM. PER VIRA PT BOOKED APPT Addendum entered by Sandra Whitlock 02/15/23 16:42: PET/CT SCAN ORDER FAXED TO [facility]. PER VIRA NO PA IS REQUIRED/REF# FOR [facility] INSURANCE. AWAITING APPT DATE AND TIME. Addendum entered by Joleen Goddard 01/11/23 10:56: Alena unable to book medicaid patient at this time requested referral to [facility] imaging from PCP office Addendum entered by Joleen Goddard 01/07/23 14:29: REFERRAL [id number] 2 VISITS 06/19/22 - 06/20/23 SENT REQUEST TO [facility] FOR SCHEDULING Original Note: NO PA NEEDED FOR PET/CT SKULL TO THIGH [id number] BUT DOES REQUIRE INSURANCE AUTH # REQUESTED REFERRAL FROM [facility] ONCE RECEIVED WILL SEND REQUEST TO [facility] FOR SCHEDULING
--- NOTE | 2023-01-07 10:34 | MHC.HEMONC ---
Pt called [facility].0 Dr Samuels to send in script for Potassium 20meq daily and pt booked for Labs in 1 week 01/14/23 10am. Pt aware. No further questions.
--- NOTE | 2023-01-14 13:19 | MHC.HEMONC ---
Pt here for repeat lab draw. Blood drawn by crate maker-specimen to lab. Lab results reviewed by this quality analyst/technical writer-improved from previous draw. Pt discharged home. Pt aware of next appointment
[2023-01-21 10:46] LABS: MANUAL DIFF FLAG NO
[2023-01-21 10:50] LABS: Basophils Absolute Auto 0.1 X10*3/uL (0.0-0.2); Basophils Percent Auto 1.2 % (0-2); Eosinophils Absolute Auto 0.5 X10*3/uL (0.0-0.4); Eosinophils Percent Auto 7.2 % (0-4); Hematocrit 29.9 % (37.0-47.0); Hemoglobin 9.8 g/dl (12.0-16.0); Imm Gran Abs Auto 0.02 X10*3/uL (0.00-0.03); Imm Gran Pct Auto 0.3 % (0.0-0.4); Lymphocytes Absolute Auto 1.5 X10*3/uL (1.2-4.9); Lymphocytes Percent Auto 21.8 % (20-40); Mean Corpuscular HGB Conc 32.8 g/dl (31.0-35.0); Mean Corpuscular Hemoglobin 31.6 pg (27.0-33.0); Mean Corpuscular Volume 96.5 fL (80.0-98.0); Mean Platelet Volume 9.5 fL (9.4-12.3); Monocytes Absolute Auto 0.8 X10*3/uL (0.1-1.2); Monocytes Percent Auto 11.7 % (2-11); Neutrophils Percent Auto 57.8 % (45-73); Platelet Count 239 X10*3/uL (160-400); Red Cell Distribution Width 13.3 % (11.0-16.0); White Blood Count 6.9 X10*3/uL (4.8-10.8)
[2023-01-21 11:01] VITALS: BP 137/94; PULSE 67; RESP 20; TEMP 35.9; O2SAT 100; BMI 32.0
[2023-01-21 11:15] LABS: Alanine Aminotransferase 7 U/L (0-31); Alkaline Phosphatase 56 U/L (39-117); Anion Gap 16 (12-20); Aspartate Amino Transferase 14 U/L (5-31); Bilirubin Total 0.3 mg/dL (0.0-1.0); Blood Urea Nitrogen 27 mg/dL (9-16); Calcium 9.9 mg/dL (8.4-10.2); Carbon Dioxide 27 mmol/L (22-29); Chloride 101 mmol/L (96-108); Creatinine Clr Calc Pharmacy 48.7; Estimated Glomerular Filt Rate 38; Glucose Random 107 mg/dL (60-115); Potassium 4.7 mmol/L (3.3-5.1); Sodium 139 mmol/L (135-145)
[2023-01-21] MEDS: Acetaminophen 325 MG TABLET 650 MG PO (11:24)
[2023-01-21] MEDS: diphenhydrAMINE HCL 25 MG CAPSULE PO (11:24)
[2023-01-21] MEDS: Ondansetron ODT 8 MG TAB.RAPDIS TRANSLINGU (11:24)
[2023-01-21 11:32] LABS: TSH reflex Free T4 4.62 uIU/mL (0.32-4.0)
[2023-01-21 12:13] LABS: Free T4 (Free Thyroxine) 1.04 ng/dL (0.71-1.85)
--- NOTE | 2023-01-21 13:29 | MHC.HEMONC ---
Pt here for C19D1 Pembrolizumab. Labs drawn by phlebotomsit-specimen to lab. Pt states she continues with fatigue, intermittent numbness in hands and occasional diarrhea and constipation. Lab results reviewed-okay to receive treatment today. #22 angio inserted in right AC with blood return noted. Pre medicated with tylenol, benadryl, zofran. Pembrolizumab given as ordered-tolerated well. Peripheral IV removed-no edema at site after removal of IV. Discharge packet given with next appointment scheduled. Pt instructed to call with any questions or concerns-verbalizes understanding of information. Pt declines wheelchair for discharge
[2023-02-11 10:47] LABS: MANUAL DIFF FLAG NO
[2023-02-11 10:50] VITALS: BP 112/71; PULSE 83; RESP 18; TEMP 36.4; O2SAT 96; BMI 31.8
[2023-02-11 10:56] LABS: Basophils Absolute Auto 0.1 X10*3/uL (0.0-0.2); Basophils Percent Auto 0.9 % (0-2); Eosinophils Absolute Auto 0.4 X10*3/uL (0.0-0.4); Eosinophils Percent Auto 4.7 % (0-4); Hematocrit 32.8 % (37.0-47.0); Hemoglobin 10.8 g/dl (12.0-16.0); Imm Gran Abs Auto 0.03 X10*3/uL (0.00-0.03); Imm Gran Pct Auto 0.4 % (0.0-0.4); Lymphocytes Absolute Auto 1.6 X10*3/uL (1.2-4.9); Lymphocytes Percent Auto 21.2 % (20-40); Mean Corpuscular HGB Conc 32.9 g/dl (31.0-35.0); Mean Corpuscular Hemoglobin 30.3 pg (27.0-33.0); Mean Corpuscular Volume 91.9 fL (80.0-98.0); Mean Platelet Volume 9.3 fL (9.4-12.3); Monocytes Absolute Auto 0.8 X10*3/uL (0.1-1.2); Neutrophils Absolute Auto 4.6 x10*3/uL (2.0-8.3); Neutrophils Percent Auto 61.8 % (45-73); Platelet Count 226 X10*3/uL (160-400); Red Blood Count 3.57 X10*6/uL (4.20-5.50); Red Cell Distribution Width 13.5 % (11.0-16.0); White Blood Count 7.4 X10*3/uL (4.8-10.8)
[2023-02-11 11:15] LABS: Alanine Aminotransferase 10 U/L (0-31); Albumin Level 4.2 g/dL (3.5-5.0); Alkaline Phosphatase 62 U/L (39-117); Anion Gap 15 (12-20); Aspartate Amino Transferase 15 U/L (5-31); Bilirubin Total 0.3 mg/dL (0.0-1.0); Blood Urea Nitrogen 23 mg/dL (9-16); Calcium 9.8 mg/dL (8.4-10.2); Carbon Dioxide 29 mmol/L (22-29); Chloride 99 mmol/L (96-108); Creatinine Clr Calc Pharmacy 55.3; Estimated Glomerular Filt Rate 44; Glucose Random 115 mg/dL (60-115); Potassium 3.5 mmol/L (3.3-5.1); Sodium 139 mmol/L (135-145); Total Protein 8.2 g/dL (6.5-8.0)
[2023-02-11] MEDS: diphenhydrAMINE HCL 25 MG CAPSULE PO (11:25)
[2023-02-11] MEDS: Ondansetron ODT 8 MG TAB.RAPDIS TRANSLINGU (11:25)
[2023-02-11] MEDS: Acetaminophen 325 MG TABLET 650 MG PO (11:25)
[2023-02-11 11:29] LABS: Thyroid Stimulating Hormone 5.94 uIU/mL (0.32-4.0)
--- NOTE | 2023-02-11 12:14 | MHC.HEMONC ---
Pt here for C20D1 Pembrolizumab and denosumab. Labs drawn by correctional lieutenant-specimen to lab. Pt states she continues with fatigue, occasional constipation, continues with numbness in hands and arms. States muscles feel achey all over. Lab results reviewed-okay to receive treatment today. Dr Samuels notified of elevated TSH of 5.94-per DR Samuels pt to start synthroid soon-pt notified. Per DR Samuels pt can have Denosumab q 6 weeks. Denosumab 120 mg SC given as ordered-tolerated well. No edema or redness at site after injection. Pre medicated with tylenol, benadryl, zofran. Pembrolizumab given as ordered-tolerated well. Peripheral IV removed-no edema or redness at IV site after removal of IV. Next appointment scheduled. Discharge packet given. Instructed to call department with any questions or concerns. Declines wheelchair for discharge.
[2023-02-15 14:22] VITALS: BP 171/99; PULSE 78; RESP 15; TEMP 36.3; O2SAT 100; BMI 31.9
--- NOTE | 2023-02-15 14:25 | PM.HEMONCPN ---
Medical Summary - Medical Summary Date of Service: 02/15/23 Chief complaint: Follow-up Primary Care Provider: Daphne Rodriguez MD Medical Summary: Diagnosis: Right upper lobe Wedge resection in July 2019, adenocarcinoma Left lower lobe wedge resection in January 2021 adenocarcinoma She was diagnosed with right upper lobe lung adenocarcinoma and underwent right upper lobectomy/mediastinal lymphadenectomy on 08/03/2019 at [facility]. Pathology revealed invasive adenocarcinoma, tumor size 1.3 x 0.9 x 0.5 cm, moderately differentiated, tumor invades visceral pleura, no satellite nodules. Vascular invasion present, margins negative. Pathological TNM stage PT2a, pN0, MX. Surveillance CT chest with contrast performed 12/26/2020 showed stable postsurgical changes, 2 new/increasing suspicious areas in the right lower lobe nodules. Interval increase in suspicious appearing cavitary left upper lobe nodule. Numerous bilateral small ground-glass nodules. On 01/21/2021 patient underwent left upper lobe wedge resection and lymph node biopsies. Pathology revealed adenocarcinoma tumor size 1.8 x 1.8 x 1.1 cm. Single focus, G2 moderately differentiated, visceral pleural invasion identified, lymphovascular invasion not identified. Margins negative. Two lymph nodes were examined, negative for carcinoma. Pathological TNM stage pT2a pN0. Molecular studies to be obtained from [facility], this was ordered last week. Stage IB cancer without any high-risk features such as lymphovascular invasion. Surveillance imaging with CT chest/abdomen and pelvis performed in September 2021 showed new right lower lobe mass measuring 1.7 x 1.3 cm suspicious for new/metastatic lesion. Sub pleural ground-glass attenuation measuring 1.4 x 1.1 cm similar to previous exam. Second lesion in the right lower lobe posterior basal segment measuring 1.6 x 1.4 cm which is also suspicious. Subcarinal lymph nodes largest measuring 1.3 x 2.1 cm and large pretracheal lymph node measuring 1.5 x 1.5 cm all suspicious for disease recurrence.. CT abdomen showed stable 1.4 cm right adrenal lesion. Extensive fine interstitial markings throughout right lower lobe likely post radiation changes. PET-CT was recommended for further evaluation. Remote history of radiation for her right breast for cancer treatment. PET-CT performed 10/14/21 showed extensive FDG avid consolidation in the right middle lobe, worse than CT scan in September. Inflammatory versus infectious etiology along with malignancy. New FDG avid mediastinal lymphadenopathy suspicious for recurrence or metastatic malignancy. FDG avid vertebral lesions in C7 and T7 suspicious for metastasis. Stable right adrenal nodule showed no FDG activity. Patient started on combination therapy with pembrolizumab, carboplatin and pemetrexed on 11/13/2021. She is on denosumab 120 mg subQ monthly for bone metastasis. Repeat PET-CT Performed 03/24/2022 showed interval resolution of previously documented right FDG avid airspace disease involving right middle and right lower lobes as well as FDG avid mediastinal lymph nodes. Brain MRI from 03/2022 showed 3 mm enhancement on the left parietal lobe and 2 mm enhancement in the right parietal lobe concerning for small metastatic foci. Interval History Interval history: Patient is here in follow-up. She is scheduled for CT brain tomorrow because of her headaches. She says that her headaches have spontaneously improved. She now has pain in her shoulders. She has hemorrhoids that bleed occasionally. She has not yet been scheduled for PET scan. She denies any other complaints, she is still trying to quit smoking. Review of Systems - Constitutional Reports as per HPI, Denies lack of energy, Denies night sweats, Denies weight loss - Cardiovascular Reports no additional cardiovascular complaints - Respiratory Reports no additional respiratory complaints - Gastrointestinal Reports no additional gastrointestinal complaints - Neurologic Reports weakness PMFSH Medical History: Medical History (Last Reviewed 02/15/23 @ 14:27 by Marta Julian) Bilateral lung cancer Cancer of upper lobe of left lung Onset Date: ~2020 Cancer of upper lobe of right lung Onset Date: ~2019 COPD (chronic obstructive pulmonary disease) Depression GERD (gastroesophageal reflux disease) History of breast cancer Onset Date: ~2006 History of hepatitis C HTN (hypertension) Internal and external bleeding hemorrhoids New onset a-fib Obesity Pancytopenia Pulmonary nodules Smoker Tubular adenoma of colon Family History: Family History (Last Reviewed 02/15/23 @ 14:27 by Marta Julian) Mother History of lung cancer Brother History of lung cancer Maternal Grandmother Breast cancer in female Maternal Aunt Breast cancer in female Daughter Thyroid cancer Surgical History: Surgical History (Last Reviewed 02/15/23 @ 14:27 by Marta Julian) History of anterior colporrhaphy Onset Date: ~2016 History of back surgery Onset Date: ~2011 History of colonoscopy Onset Date: ~2014 History of hemorrhoidectomy Onset Date: ~2019 History of lobectomy of lung Onset Date: ~2019 History of lumpectomy of right breast Onset Date: ~2006 History of lung surgery Onset Date: ~2020 History of tubal ligation Social History: Social History (Last Reviewed 02/15/23 @ 14:27 by Marta Julian) Living Situation History: Household Members: Spouse Housing: Apartment Are you a primary behavioral health care coordinator to a significant other at home: No Do you presently have visiting nurse or other home services: No Alcohol History: Unable to assess alcohol history related to: Unable to respond Alcohol History Details: 1. How often do you have a drink containing alcohol?: b. Monthly or less 2. How many drinks containing alcohol do you have on a typical day when you are drinking?: a. 1 or 2 Tobacco History: Patient Tobacco Use Status: Never used Tobacco Tobacco use type: Cigar Years Smoked: 46 Smoked in Last 30 Days: Yes Second Hand Smoke Exposure: No Substance Use History: Use of substances other than those prescribed or required for medical reasons: Yes Substance Use Type: Marijuana Substance Use Type Other:: 5 mg edibles Last Used Substance Other:: IV heroin 8 years ago Domestic Abuse History: Have you been hit, kicked, punched, or otherwise hurt by someone within the past year? If so, by whom?: No Do you feel safe in your current relationship?: Yes Homicidal Assessment: Do you have thoughts of harming others: None Do you have a plan to hurt others: No Plan Do you have the means to hurt others: No Nutrition Assessment: Recently lost weight without trying: No Occupation Assessmet: service: No Current occupational status: disabled Current occupational exposures/hazards: No Home Medications and Allergies Home Medications Medication Instructions Recorded Confirmed Type buprenorphine 4 mg-naloxone 1 mg 1 strip sublingual DAILY 01/18/22 02/15/23 History sublingual film (Suboxone) metoprolol tartrate 50 1 tab PO DAILY 01/18/22 02/15/23 History mg-hydrochlorothiazide 25 mg tablet milnacipran 50 mg tablet (Savella) 50 mg PO BID 01/18/22 02/15/23 History omeprazole 20 mg capsule,delayed 20 mg PO DAILY@0630 01/18/22 02/15/23 History release paroxetine HCl 20 mg tablet 60 mg PO DAILY 01/18/22 02/15/23 History umeclidinium 62.5 mcg-vilanterol 1 puff inhalation DAILY 01/18/22 02/15/23 History 25 mcg/actuation powdr for inhalation (Anoro Ellipta) cholecalciferol (vitamin D3) 50 50 mcg PO DAILY 02/17/22 02/15/23 History mcg (2,000 unit) tablet (Vitamin D3) dexamethasone 4 mg tablet 8 mg PO BID 02/17/22 02/15/23 History ipratropium 0.5 mg-albuterol 3 mg 3 ml inhalation Q6-8H PRN 02/17/22 02/15/23 History (2.5 mg base)/3 mL nebulization Shortness Of Breath Or Wheezing soln simvastatin 20 mg tablet 20 mg PO DAILY 02/17/22 02/15/23 History Allergies Allergy/AdvReac Type Severity Reaction Status Date / Time lisinopril [LISINOPRIL] Allergy Severe SWELLING- Verified 01/06/23 15:55 ANGIOEDEMA codeine [CODEINE] Allergy Intermediate VOMITING/HIVES, Verified 01/06/23 15:55 vomiting, hives Exam Vital signs: Vital Signs Temp 97.5 F 02/11/23 10:50 Pulse 83 02/11/23 10:50 Resp 18 02/11/23 10:50 BP 112/71 02/11/23 10:50 Pulse Ox 96 02/11/23 10:50 O2 Del Method Nasal Cannula 02/11/23 10:50 O2 Flow Rate 2 02/11/23 10:50 Weight 92.2 kg BMI result Body Mass Index 31.8 - Constitutional Present: no acute distress - Routine HEENT Exam Head: Present: normal inspection - Routine Neck Exam Absent: lymphadenopathy - Routine Respiratory Exam Present: CTAB. Absent: respiratory distress, rhonchi - Routine Cardiovascular Exam Cardiovascular: Present: RRR, S1, S2 - Routine Abdominal Exam Present: distended, soft. Absent: organomegaly - Routine Extremities Exam Present: pulses intact - Routine Skin Exam Present: intact. Absent: cyanosis Data - Labs CBC & Chem 7: 02/11/23 10:46 02/11/23 10:46 Assessment and Plan Patient Active problem list reviewed?: Yes (1) Bilateral lung cancer Problem details: (RUL lobectomy 07/2019 & LITA wedge 01/2021) Status: Chronic Assessment and plan: 1. This is a pleasant 62-year-old woman with bilateral lung adenocarcinoma. She has been diagnosed with recurrent metastatic lung cancer in the right with bone and brain metastasis in september 2021. She had right upper lobectomy/mediastinal lymphadenectomy on 08/03/2019 at [facility]. Pathology revealed invasive adenocarcinoma, tumor size 1.3 x 0.9 x 0.5 cm, moderately differentiated, tumor invades visceral pleura, no satellite nodules. Vascular invasion present, margins negative. Pathological TNM stage PT2a, pN0, MX. NGS panel negative for for alk rearrangement, ROS1 rearrangement, MET amplification, RET rearrangement and PTEN deletions, KRAS G12C mutation present, MSI stable, PD L1-TPS score 1, HER2 with breast scoring equivocal, stone TRK equivocal. RBM10 and TP53 alterations detected. On 01/21/2021 patient underwent left upper lobe wedge resection and lymph node biopsies. Pathology revealed adenocarcinoma tumor size 1.8 x 1.8 x 1.1 cm. Single focus, G2 moderately differentiated, visceral pleural invasion identified, lymphovascular invasion not identified. Margins negative. Two lymph nodes were examined, negative for carcinoma. Pathological TNM stage pT2a pN0. KRAS mutation Exon 2 ([id number]) positive, BRAF negative, PDL1 1%. EGFR and alk mutations were not tested as they are mutually exclusive if KRAS is present. ( it was sent to [facility] from [facility]). On 11/03/[address]-guided biopsy of right upper lobe mass, pathology -adenocarcinoma, moderately to poorly differentiated consistent with lung primary. PDL expression 1%, HER2 equivocal score 2+. Patient started on combination therapy with pembrolizumab, carboplatin and pemetrexed on 11/13/2021. She is on denosumab 120 mg subQ monthly for bone metastasis. Repeat PET-CT in July 2022 shows no FDG avid lesions and stable from prior scan in March 2022. Because of cytopenias, pemetrexed was discontinued from maintenance therapy. She is receiving single agent pembrolizumab at this time. 2. Bone metastasis. She is on denosumab. She is has been noncompliant calcium she was advised to take 600 mg calcium b.i.d.. 4. Pancytopenia/neutropenia related to chemotherapy. She has been unable to tolerate chemotherapy. 5. Renal insufficiency. She was seen by Nephrology. Primary suspect appears to be pemetrexed. Keytruda could also cause kidney injury. Nephrology is also felt that patient was hypertensive and dry. Recommendation was to stop hydrochlorothiazide. Her kidney functions have been stable. 6. Brain metastasis. Last brain MRI at [facility] in September 2022 was negative. She reports recurrent headaches. CT brain with contrast has been scheduled for 02/16/2023. PET-CT performed July 2022 shows no significant changes compared to prior PET-CT in March 2022. No significant FDG activity anywhere. She is being maintained on pembrolizumab alone at this time. Repeat PET-CT was ordered but not yet scheduled. This will be scheduled DEAN. Follow-up in 6 weeks. - Time Spent With Patient Time Spent with Patient (in minutes): 15
--- NOTE | 2023-02-15 15:40 | MHC.HEMONCMA ---
Patient seen today for followup lung cancer, followup as scheduled and [facility] [place] being [place] due to med[place] patient.
[2023-03-03 11:27] LABS: MANUAL DIFF FLAG NO
[2023-03-03 11:32] LABS: Basophils Absolute Auto 0.1 X10*3/uL (0.0-0.2); Eosinophils Absolute Auto 0.2 X10*3/uL (0.0-0.4); Eosinophils Percent Auto 3.3 % (0-4); Hemoglobin 10.9 g/dl (12.0-16.0); Imm Gran Abs Auto 0.02 X10*3/uL (0.00-0.03); Imm Gran Pct Auto 0.3 % (0.0-0.4); Lymphocytes Absolute Auto 1.4 X10*3/uL (1.2-4.9); Lymphocytes Percent Auto 19.9 % (20-40); Mean Corpuscular Hemoglobin 30.8 pg (27.0-33.0); Mean Corpuscular Volume 93.2 fL (80.0-98.0); Mean Platelet Volume 9.6 fL (9.4-12.3); Monocytes Absolute Auto 0.5 X10*3/uL (0.1-1.2); Monocytes Percent Auto 7.8 % (2-11); Neutrophils Absolute Auto 4.7 x10*3/uL (2.0-8.3); Neutrophils Percent Auto 67.7 % (45-73); Platelet Count 219 X10*3/uL (160-400); Red Blood Count 3.54 X10*6/uL (4.20-5.50); Red Cell Distribution Width 13.8 % (11.0-16.0); White Blood Count 6.9 X10*3/uL (4.8-10.8)
[2023-03-03 11:34] VITALS: BP 179/89; PULSE 83; RESP 18; TEMP 36.1; O2SAT 95
[2023-03-03 11:49] LABS: Alanine Aminotransferase 7 U/L (0-31); Albumin Level 4.1 g/dL (3.5-5.0); Alkaline Phosphatase 55 U/L (39-117); Anion Gap 11 (12-20); Aspartate Amino Transferase 15 U/L (5-31); Bilirubin Total 0.3 mg/dL (0.0-1.0); Blood Urea Nitrogen 21 mg/dL (9-16); Calcium 9.4 mg/dL (8.4-10.2); Carbon Dioxide 33 mmol/L (22-29); Chloride 100 mmol/L (96-108); Creatinine Clr Calc Pharmacy 50.4; Estimated Glomerular Filt Rate 40; Glucose Random 117 mg/dL (60-115); Potassium 3.8 mmol/L (3.3-5.1); Sodium 140 mmol/L (135-145); Total Protein 7.8 g/dL (6.5-8.0)
[2023-03-03] MEDS: Ondansetron ODT 8 MG TAB.RAPDIS TRANSLINGU (12:01)
[2023-03-03] MEDS: diphenhydrAMINE HCL 25 MG CAPSULE PO (12:01)
[2023-03-03] MEDS: Acetaminophen 325 MG TABLET 650 MG PO (12:01)
[2023-03-26 11:02] LABS: MANUAL DIFF FLAG NO
[2023-03-26 11:05] VITALS: BP 117/74; PULSE 94; RESP 18; TEMP 36.3; O2SAT 94; BMI 32.1
[2023-03-26 11:05] LABS: Basophils Absolute Auto 0.1 X10*3/uL (0.0-0.2); Basophils Percent Auto 1.1 % (0-2); Eosinophils Absolute Auto 0.3 X10*3/uL (0.0-0.4); Eosinophils Percent Auto 4.2 % (0-4); Hemoglobin 11.1 g/dl (12.0-16.0); Imm Gran Abs Auto 0.01 X10*3/uL (0.00-0.03); Imm Gran Pct Auto 0.2 % (0.0-0.4); Lymphocytes Absolute Auto 1.5 X10*3/uL (1.2-4.9); Lymphocytes Percent Auto 23.5 % (20-40); Mean Corpuscular HGB Conc 33.6 g/dl (31.0-35.0); Mean Corpuscular Hemoglobin 30.4 pg (27.0-33.0); Mean Corpuscular Volume 90.4 fL (80.0-98.0); Mean Platelet Volume 9.4 fL (9.4-12.3); Monocytes Absolute Auto 0.7 X10*3/uL (0.1-1.2); Monocytes Percent Auto 10.6 % (2-11); Neutrophils Absolute Auto 3.7 x10*3/uL (2.0-8.3); Neutrophils Percent Auto 60.4 % (45-73); Platelet Count 161 X10*3/uL (160-400); Red Blood Count 3.65 X10*6/uL (4.20-5.50); Red Cell Distribution Width 13.5 % (11.0-16.0); White Blood Count 6.2 X10*3/uL (4.8-10.8)
[2023-03-26 11:21] LABS: Alanine Aminotransferase 6 U/L (0-31); Albumin Level 4.2 g/dL (3.5-5.0); Alkaline Phosphatase 55 U/L (39-117); Anion Gap 16 (12-20); Aspartate Amino Transferase 14 U/L (5-31); Bilirubin Total 0.5 mg/dL (0.0-1.0); Blood Urea Nitrogen 25 mg/dL (9-16); Calcium 9.8 mg/dL (8.4-10.2); Carbon Dioxide 30 mmol/L (22-29); Chloride 99 mmol/L (96-108); Creatinine Clr Calc Pharmacy 49.5; Estimated Glomerular Filt Rate 39; Glucose Random 112 mg/dL (60-115); Potassium 3.7 mmol/L (3.3-5.1); Sodium 141 mmol/L (135-145); Total Protein 7.7 g/dL (6.5-8.0)
--- NOTE | 2023-03-26 11:29 | P.PNHO-ONC_ITS ---
Medical Summary - Medical Summary Date of Service: 03/26/23 Chief complaint: Follow-up and scheduled treatment Primary Care Provider: Daphne Rodriguez MD Medical Summary: Diagnosis: Right upper lobe Wedge resection in July 2019, adenocarcinoma Left lower lobe wedge resection in January 2021 adenocarcinoma She was diagnosed with right upper lobe lung adenocarcinoma and underwent right upper lobectomy/mediastinal lymphadenectomy on 08/03/[address] [facility]. Pathology revealed invasive adenocarcinoma, tumor size 1.3 x 0.9 x 0.5 cm, moderately differentiated, tumor invades visceral pleura, no satellite nodules. Vascular invasion present, margins negative. Pathological TNM stage PT2a, pN0, MX. Surveillance CT chest with contrast performed 12/26/2020 showed stable postsurgical changes, 2 new/increasing suspicious areas in the right lower lobe nodules. Interval increase in suspicious appearing cavitary left upper lobe nodule. Numerous bilateral small ground-glass nodules. On 01/21/2021 patient underwent left upper lobe wedge resection and lymph node biopsies. Pathology revealed adenocarcinoma tumor size 1.8 x 1.8 x 1.1 cm. Single focus, G2 moderately differentiated, visceral pleural invasion identified, lymphovascular invasion not identified. Margins negative. Two lymph nodes were examined, negative for carcinoma. Pathological TNM stage pT2a pN0. Molecular studies to be obtained from [facility], this was ordered last week. Stage IB cancer without any high-risk features such as lymphovascular invasion. Surveillance imaging with CT chest/abdomen and pelvis performed in September 2021 showed new right lower lobe mass measuring 1.7 x 1.3 cm suspicious for new/metastatic lesion. Sub pleural ground-glass attenuation measuring 1.4 x 1.1 cm similar to previous exam. Second lesion in the right lower lobe posterior basal segment measuring 1.6 x 1.4 cm which is also suspicious. Subcarinal lymph nodes largest measuring 1.3 x 2.1 cm and large pretracheal lymph node measuring 1.5 x 1.5 cm all suspicious for disease recurrence.. CT abdomen showed stable 1.4 cm right adrenal lesion. Extensive fine interstitial markings throughout right lower lobe likely post radiation changes. PET-CT was recommended for further evaluation. Remote history of radiation for her right breast for cancer treatment. PET-CT performed 10/14/21 showed extensive FDG avid consolidation in the right middle lobe, worse than CT scan in September. Inflammatory versus infectious etiology along with malignancy. New FDG avid mediastinal lymphadenopathy suspicious for recurrence or metastatic malignancy. FDG avid vertebral lesions in C7 and T7 suspicious for metastasis. Stable right adrenal nodule showed no FDG activity. Patient started on combination therapy with pembrolizumab, carboplatin and pemetrexed on 11/13/2021. She is on denosumab 120 mg subQ monthly for bone metastasis. Repeat PET-CT Performed 03/24/2022 showed interval resolution of previously documented right FDG avid airspace disease involving right middle and right lower lobes as well as FDG avid mediastinal lymph nodes. Brain MRI from 03/2022 showed 3 mm enhancement on the left parietal lobe and 2 mm enhancement in the right parietal lobe concerning for small metastatic foci. Repeat PET-CT in July 2022 shows no FDG avid lesions and stable from prior scan in March 2022. Interval History Interval history: Patient is here in follow-up. She is doing well overall and has no new complaints today. She is trying hard to quit smoking. She continues to have a lot of secretions, she has not seen her socket puller in several months. She is tolerating treatment well. Review of Systems - Constitutional Reports as per HPI, Denies fatigue, Denies lack of energy, Denies malaise - Cardiovascular Reports no additional cardiovascular complaints - Respiratory Reports no additional respiratory complaints - Neurologic Reports weakness PMFSH Medical History: Medical History (Last Reviewed 02/15/23 @ 14:27 by Marta Julian) Bilateral lung cancer Cancer of upper lobe of left lung Onset Date: ~2020 Cancer of upper lobe of right lung Onset Date: ~2019 COPD (chronic obstructive pulmonary disease) Depression GERD (gastroesophageal reflux disease) History of breast cancer Onset Date: ~2006 History of hepatitis C HTN (hypertension) Internal and external bleeding hemorrhoids New onset a-fib Obesity Pancytopenia Pulmonary nodules Smoker Tubular adenoma of colon Family History: Family History (Last Reviewed 02/15/23 @ 14:27 by Marta Julian) Mother History of lung cancer Brother History of lung cancer Maternal Grandmother Breast cancer in female Maternal Aunt Breast cancer in female Daughter Thyroid cancer Surgical History: Surgical History (Last Reviewed 02/15/23 @ 14:27 by Marta Julian) History of anterior colporrhaphy Onset Date: ~2016 History of back surgery Onset Date: ~2011 History of colonoscopy Onset Date: ~2014 History of hemorrhoidectomy Onset Date: ~2019 History of lobectomy of lung Onset Date: ~2019 History of lumpectomy of right breast Onset Date: ~2006 History of lung surgery Onset Date: ~2020 History of tubal ligation Social History: Social History (Last Reviewed 02/15/23 @ 14:27 by Marta Julian) Living Situation History: Household Members: Spouse Housing: Apartment Are you a primary career placement services counselor to a significant other at home: No Do you presently have visiting nurse or other home services: No Alcohol History: Unable to assess alcohol history related to: Unable to respond Alcohol History Details: 1. How often do you have a drink containing alcohol?: b. Monthly or less 2. How many drinks containing alcohol do you have on a typical day when you are drinking?: a. 1 or 2 Tobacco History: Patient Tobacco Use Status: Never used Tobacco Tobacco use type: Cigar Years Smoked: 46 Smoked in Last 30 Days: Yes Second Hand Smoke Exposure: No Substance Use History: Use of substances other than those prescribed or required for medical reasons : Yes Substance Use Type: Marijuana Substance Use Type Other:: 5 mg edibles Last Used Substance Other:: IV heroin 8 years ago Domestic Abuse History: Have you been hit, kicked, punched, or otherwise hurt by someone within the past year? If so, by whom?: No Do you feel safe in your current relationship?: Yes Homicidal Assessment: Do you have thoughts of harming others: None Do you have a plan to hurt others: No Plan Do you have the means to hurt others: No Nutrition Assessment: Recently lost weight without trying: No Occupation Assessmet: service: No Current occupational status: disabled Current occupational exposures/hazards: No Home Medications and Allergies Current Medications: Current Medications Acetaminophen (Acetaminophen 325 Mg Tablet) 650 mg PO ONCE WALTER Stop: 03/26/23 23:59 Denosumab (Denosumab 120 Mg/1.7 Ml Vial) 120 mg SUBCUT ONCE WALTER Stop: 03/26/23 23:59 Diphenhydramine HCl (Diphenhydramine Hcl 25 Mg Capsule) 25 mg PO ONCE WALTER Stop: 03/26/23 23:59 Heparin Sodium (Porcine) (Heparin Sodium,Porcine Flush 500 Unit/5 Ml Syringe) 500 unit IVFLUSH ONCE WALTER Stop: 03/26/23 23:59 Ondansetron HCl (Ondansetron Odt 8 Mg Tab.Rapdis) 8 mg TRANSLINGU ONCE WALTER Stop: 03/26/23 23:59 Home Medications Medication Instructions Recorded Confirmed Type buprenorphine 4 mg-naloxone 1 mg 1 strip sublingual DAILY 01/18/22 02/15/23 History sublingual film (Suboxone) metoprolol tartrate 50 1 tab PO DAILY 01/18/22 02/15/23 History mg-hydrochlorothiazide 25 mg tablet milnacipran 50 mg tablet (Savella) 50 mg PO BID 01/18/22 02/15/23 History omeprazole 20 mg capsule,delayed 20 mg PO DAILY@0630 01/18/22 02/15/23 History release paroxetine HCl 20 mg tablet 60 mg PO DAILY 01/18/22 02/15/23 History umeclidinium 62.5 mcg-vilanterol 1 puff inhalation DAILY 01/18/22 02/15/23 History 25 mcg/actuation powdr for inhalation (Anoro Ellipta) cholecalciferol (vitamin D3) 50 50 mcg PO DAILY 02/17/22 02/15/23 History mcg (2,000 unit) tablet (Vitamin D3) dexamethasone 4 mg tablet 8 mg PO BID 02/17/22 02/15/23 History ipratropium 0.5 mg-albuterol 3 mg 3 ml inhalation Q6-8H PRN 02/17/22 02/15/23 History (2.5 mg base)/3 mL nebulization Shortness Of Breath Or Wheezing soln simvastatin 20 mg tablet 20 mg PO DAILY 02/17/22 02/15/23 History diltiazem HCl 180 mg 180 mg PO DAILY 03/26/23 03/26/23 History capsule,extended release 24 hr, controlled Allergies Allergy/AdvReac Type Severity Reaction Status Date / Time lisinopril [LISINOPRIL] Allergy Severe SWELLING- Verified 03/26/23 11:23 ANGIOEDEMA codeine [CODEINE] Allergy Intermediate VOMITING/HIVES, Verified 03/26/23 11:23 vomiting, hives Exam Vital signs: Vital Signs Temp 97.3 F 03/26/23 11:05 Pulse 94 03/26/23 11:05 Resp 18 03/26/23 11:05 BP 117/74 03/26/23 11:05 Pulse Ox 94 03/26/23 11:05 O2 Del Method Room Air 03/26/23 11:05 O2 Flow Rate 3 03/03/23 11:34 Intake & Output 03/25/23 03/26/23 03/26/23 18:59 06:59 18:59 Other: Weight 92.5 kg 93.1 kg Weight in Grams 46906 Weight 93.1 kg BMI result Body Mass Index 32.1 - Constitutional Present: no acute distress - Routine HEENT Exam Head: Present: normal inspection - Routine Neck Exam Absent: lymphadenopathy - Routine Respiratory Exam Present: CTAB. Absent: respiratory distress, rhonchi - Routine Cardiovascular Exam Cardiovascular: Present: RRR, S1, S2 - Routine Abdominal Exam Present: distended, soft. Absent: organomegaly - Routine Extremities Exam Present: pulses intact - Routine Skin Exam Present: intact. Absent: cyanosis Data - Labs CBC & Chem 7: 03/26/23 11:00 03/26/23 11:00 Assessment and Plan Patient Active problem list reviewed?: Yes (1) Bilateral lung cancer Problem details: (RUL lobectomy 07/2019 & LITA wedge 01/2021) Status: Chronic Assessment and plan: 1. This is a pleasant 62-year-old woman with bilateral lung adenocarcinoma. She has been diagnosed with recurrent metastatic lung cancer in the right with bone and brain metastasis in september 2021. She had right upper lobectomy/mediastinal lymphadenectomy on 08/03/[address] [facility]. Pathology revealed invasive adenocarcinoma, tumor size 1.3 x 0.9 x 0.5 cm, moderately differentiated, tumor invades visceral pleura, no satellite nodules. Vascular invasion present, margins negative. Pathological TNM stage PT2a, pN0, MX. NGS panel negative for for alk rearrangement, ROS1 rearrangement, MET amplification, RET rearrangement and PTEN deletions, KRAS G12C mutation present, MSI stable, PD L1-TPS score 1, HER2 with breast scoring equivocal, stone TRK equivocal. RBM10 and TP53 alterations detected. On 01/21/2021 patient underwent left upper lobe wedge resection and lymph node biopsies. Pathology revealed adenocarcinoma tumor size 1.8 x 1.8 x 1.1 cm. Single focus, G2 moderately differentiated, visceral pleural invasion identified, lymphovascular invasion not identified. Margins negative. Two lymph nodes were examined, negative for carcinoma. Pathological TNM stage pT2a pN0. KRAS mutation Exon 2 ([id number]) positive, BRAF negative, PDL1 1%. EGFR and alk mutations were not tested as they are mutually exclusive if KRAS is present. ( it was sent to [facility] from [facility]). On 11/03/[address]-guided biopsy of right upper lobe mass, pathology -adenocarcinoma, moderately to poorly differentiated consistent with lung primary. PDL expression 1%, HER2 equivocal score 2+. Patient started on combination therapy with pembrolizumab, carboplatin and pemetrexed on 11/13/2021. She is on denosumab 120 mg subQ monthly for bone metastasis. Because of cytopenias, pemetrexed was discontinued from maintenance therapy. She is receiving single agent pembrolizumab at this time. 2. Bone metastasis. She is on denosumab. She is has been noncompliant calcium she was advised to take 600 mg calcium b.i.d.. She has intermittent back pain probably related to osteoarthritis/compression fracture of her spine. She she response to NSAIDs, she was asked to not use this excessively as it can cause kidney injury. 4. Pancytopenia/neutropenia related to chemotherapy. She has been unable to tolerate chemotherapy. 5. Renal insufficiency. She was seen by Nephrology. Primary suspect appears to be pemetrexed. Keytruda could also cause kidney injury. Nephrology is also felt that patient was hypertensive and dry. Recommendation was to stop hydrochlorothiazide. Her kidney functions have been stable. 6. Brain metastasis. Last brain MRI at [facility] in September [address] with out IV contrast performed 02/16/2023 showed abnormality. PET-CT performed at [facility] on 03/11/2023 showed postsurgical changes. 2.3 x 1.2 cm opacity in right lower lobe with faint FDG uptake of 2.2. No other FDG avid metastatic disease was seen. I discussed above findings with the patient. She will continue with single agent immunotherapy as she is doing as she has had good response to treatment. Follow-up in 6 weeks. - Time Spent With Patient Time Spent with Patient (in minutes): 15
[2023-03-26] MEDS: Acetaminophen 325 MG TABLET 650 MG PO (11:44)
[2023-03-26] MEDS: Ondansetron ODT 8 MG TAB.RAPDIS TRANSLINGU (11:45)
[2023-03-26] MEDS: diphenhydrAMINE HCL 25 MG CAPSULE PO (11:45)
--- NOTE | 2023-03-26 12:15 | MHC.HEMONC ---
Pt here for C22D1 Pembrolizumab. Labs drawn by teacher of the visually impaired-specimen to lab. Pt states she has fatigue, frothy white secretions with cough, intermittent constipation and a mid back ache Dr Samuels into see pt. Pet scan reviewed with pt. Dr Morales's office (extension [phone]) called to schedule follow up appointment for pt. Dr Morales's to call pt with appointment-pt aware. Lab results reviewed-okay to receive treatment today. #22 angio inserted in right AC with blood return noted. Pre medicated with tylenol, benadryl, zofran. Denosumab 120mg SC given in right arm-tolerated well. No edema or redness at site after injection. Pembrolizumab given as ordered-tolerated well. Peripheral IV removed-no edema at site after removal of IV. Next appointment scheduled-discharge packet given. Pt declined wheelchair for discharge. Instructed to call department with any questions or concerns
--- NOTE | 2023-04-15 14:24 | HO.HEMONCSCH ---
APPT REMAINDER. PT CONFIRMED
[2023-04-16 11:06] VITALS: BP 191/100; PULSE 96; RESP 22; TEMP 36.6; O2SAT 100; BMI 32.3
[2023-04-16 11:48] VITALS: BP 145/98
--- NOTE | 2023-04-16 15:38 | MHC.HEMONC ---
Here for C23 Pembrolizumab. Labs drawn. Pt is extremely tired, sleeping as soon as she got into the recliner. She stated that she hasn't felt good at all this week, stating that it is her breathing that has bothered her this week. She stated that she had to turn her O2 up to 3L. She denies any fever. States she has had a cough producing white foamy sputum, which she has had since before her last chemo. She states she feels ok for treatment. Discussed with Dr Samuels, and ok for treatment today. IV placed right forearm with good blood return noted. Premedicated with tylenol and zofran. Benadryl held due to pt being so tired. Treatment done and tolerated well. Slept through entire treatment. Departure packet given and pt aware of next appointment. Brought to front lobby via wheelchair.
--- NOTE | 2023-04-28 11:28 | HO.HEMONCPA ---
Addendum entered by Joleen Goddard 04/28/23 14:58: [facility] APPROVED FOR PEMBROLIZUMAB/KEYTRUDA [id number] AUTH # [id number] DOS 04/28/23 - 04/28/24 Original Note: [facility] PENDING FOR PEMBROLIZUMAB/KEYTRUDA [id number] AWAITING DECISION FROM [facility]
[2023-05-07 11:10] LABS: MANUAL DIFF FLAG NO
[2023-05-07 11:15] VITALS: BP 143/84; PULSE 78; RESP 18; TEMP 36.4; O2SAT 94; BMI 32.5
[2023-05-07 11:19] LABS: Basophils Absolute Auto 0.1 X10*3/uL (0.0-0.2); Basophils Percent Auto 1.1 % (0-2); Eosinophils Absolute Auto 0.2 X10*3/uL (0.0-0.4); Eosinophils Percent Auto 2.5 % (0-4); Hemoglobin 11.7 g/dl (12.0-16.0); Imm Gran Abs Auto 0.03 X10*3/uL (0.00-0.03); Imm Gran Pct Auto 0.3 % (0.0-0.4); Lymphocytes Absolute Auto 1.4 X10*3/uL (1.2-4.9); Lymphocytes Percent Auto 15.6 % (20-40); Mean Corpuscular HGB Conc 33.4 g/dl (31.0-35.0); Mean Corpuscular Hemoglobin 30.6 pg (27.0-33.0); Mean Corpuscular Volume 91.6 fL (80.0-98.0); Mean Platelet Volume 10.2 fL (9.4-12.3); Monocytes Absolute Auto 0.8 X10*3/uL (0.1-1.2); Monocytes Percent Auto 8.7 % (2-11); Neutrophils Absolute Auto 6.3 x10*3/uL (2.0-8.3); Neutrophils Percent Auto 71.8 % (45-73); Platelet Count 199 X10*3/uL (160-400); Red Blood Count 3.82 X10*6/uL (4.20-5.50); Red Cell Distribution Width 13.2 % (11.0-16.0); White Blood Count 8.8 X10*3/uL (4.8-10.8)
--- NOTE | 2023-05-07 11:32 | PM.HEMONCPN ---
Medical Summary - Medical Summary Date of Service: 05/07/23 Chief complaint: Follow-up and scheduled treatment Primary Care Provider: Daphne Rodriguez MD Medical Summary: Diagnosis: Right upper lobe Wedge resection in July 2019, adenocarcinoma Left lower lobe wedge resection in January 2021 adenocarcinoma She was diagnosed with right upper lobe lung adenocarcinoma and underwent right upper lobectomy/mediastinal lymphadenectomy on 08/03/2019 at [facility]. Pathology revealed invasive adenocarcinoma, tumor size 1.3 x 0.9 x 0.5 cm, moderately differentiated, tumor invades visceral pleura, no satellite nodules. Vascular invasion present, margins negative. Pathological TNM stage PT2a, pN0, MX. Surveillance CT chest with contrast performed 12/26/2020 showed stable postsurgical changes, 2 new/increasing suspicious areas in the right lower lobe nodules. Interval increase in suspicious appearing cavitary left upper lobe nodule. Numerous bilateral small ground-glass nodules. On 01/21/2021 patient underwent left upper lobe wedge resection and lymph node biopsies. Pathology revealed adenocarcinoma tumor size 1.8 x 1.8 x 1.1 cm. Single focus, G2 moderately differentiated, visceral pleural invasion identified, lymphovascular invasion not identified. Margins negative. Two lymph nodes were examined, negative for carcinoma. Pathological TNM stage pT2a pN0. Molecular studies to be obtained from [facility], this was ordered last week. Stage IB cancer without any high-risk features such as lymphovascular invasion. Surveillance imaging with CT chest/abdomen and pelvis performed in September 2021 showed new right lower lobe mass measuring 1.7 x 1.3 cm suspicious for new/metastatic lesion. Sub pleural ground-glass attenuation measuring 1.4 x 1.1 cm similar to previous exam. Second lesion in the right lower lobe posterior basal segment measuring 1.6 x 1.4 cm which is also suspicious. Subcarinal lymph nodes largest measuring 1.3 x 2.1 cm and large pretracheal lymph node measuring 1.5 x 1.5 cm all suspicious for disease recurrence.. CT abdomen showed stable 1.4 cm right adrenal lesion. Extensive fine interstitial markings throughout right lower lobe likely post radiation changes. PET-CT was recommended for further evaluation. Remote history of radiation for her right breast for cancer treatment. PET-CT performed 10/14/21 showed extensive FDG avid consolidation in the right middle lobe, worse than CT scan in September. Inflammatory versus infectious etiology along with malignancy. New FDG avid mediastinal lymphadenopathy suspicious for recurrence or metastatic malignancy. FDG avid vertebral lesions in C7 and T7 suspicious for metastasis. Stable right adrenal nodule showed no FDG activity. Patient started on combination therapy with pembrolizumab, carboplatin and pemetrexed on 11/13/2021. She is on denosumab 120 mg subQ monthly for bone metastasis. Repeat PET-CT Performed 03/24/2022 showed interval resolution of previously documented right FDG avid airspace disease involving right middle and right lower lobes as well as FDG avid mediastinal lymph nodes. Brain MRI from 03/2022 showed 3 mm enhancement on the left parietal lobe and 2 mm enhancement in the right parietal lobe concerning for small metastatic foci. Repeat PET-CT in July 2022 shows no FDG avid lesions and stable from prior scan in March 2022. Interval History Interval history: Patient is here in follow-up. She is doing well overall and has no new complaints today. She is trying hard to quit smoking. She is tolerating treatment well. She denies any recent infections or changes to her medications. She has routine follow-up with her PCP every 3 months. Review of Systems - Constitutional Reports as per HPI - Neurologic Reports weakness [facility] Medical History: Medical History (Last Reviewed 02/15/23 @ 14:27 by Marta Julian) Bilateral lung cancer Cancer of upper lobe of left lung Onset Date: ~2020 Cancer of upper lobe of right lung Onset Date: ~2019 COPD (chronic obstructive pulmonary disease) Depression GERD (gastroesophageal reflux disease) History of breast cancer Onset Date: ~2006 History of hepatitis C HTN (hypertension) Internal and external bleeding hemorrhoids New onset a-fib Obesity Pancytopenia Pulmonary nodules Smoker Tubular adenoma of colon Family History: Family History (Last Reviewed 02/15/23 @ 14:27 by Marta Julian) Mother History of lung cancer Brother History of lung cancer Maternal Grandmother Breast cancer in female Maternal Aunt Breast cancer in female Daughter Thyroid cancer Surgical History: Surgical History (Last Reviewed 02/15/23 @ 14:27 by Marta Julian) History of anterior colporrhaphy Onset Date: ~2016 History of back surgery Onset Date: ~2011 History of colonoscopy Onset Date: ~2014 History of hemorrhoidectomy Onset Date: ~2019 History of lobectomy of lung Onset Date: ~2019 History of lumpectomy of right breast Onset Date: ~2006 History of lung surgery Onset Date: ~2020 History of tubal ligation Social History: Social History (Last Reviewed 02/15/23 @ 14:27 by Marta Julian) Living Situation History: Household Members: Spouse Housing: Apartment Are you a primary critical care nurse specialist to a significant other at home: No Do you presently have visiting nurse or other home services: No Alcohol History: Unable to assess alcohol history related to: Unable to respond Alcohol History Details: 1. How often do you have a drink containing alcohol?: b. Monthly or less 2. How many drinks containing alcohol do you have on a typical day when you are drinking?: a. 1 or 2 Tobacco History: Patient Tobacco Use Status: Never used Tobacco Tobacco use type: Cigar Years Smoked: 46 Smoked in Last 30 Days: Yes Second Hand Smoke Exposure: No Substance Use History: Use of substances other than those prescribed or required for medical reasons: Yes Substance Use Type: Marijuana Substance Use Type Other:: 5 mg edibles Last Used Substance Other:: IV heroin 8 years ago Domestic Abuse History: Have you been hit, kicked, punched, or otherwise hurt by someone within the past year? If so, by whom?: No Do you feel safe in your current relationship?: Yes Homicidal Assessment: Do you have thoughts of harming others: None Do you have a plan to hurt others: No Plan Do you have the means to hurt others: No Nutrition Assessment: Recently lost weight without trying: No Occupation Assessmet: service: No Current occupational status: disabled Current occupational exposures/hazards: No Oncology Screenings - ECOG Performance Status ECOG Performance Status: 0 Home Medications and Allergies Current Medications: Current Medications Acetaminophen (Acetaminophen 325 Mg Tablet) 650 mg PO ONCE WALTER Stop: 05/07/23 23:59 Denosumab (Denosumab 120 Mg/1.7 Ml Vial) 120 mg SUBCUT ONCE WALTER Stop: 05/07/23 23:59 Diphenhydramine HCl (Diphenhydramine Hcl 25 Mg Capsule) 25 mg PO ONCE WALTER Stop: 05/07/23 23:59 Heparin Sodium (Porcine) (Heparin Sodium,Porcine Flush 500 Unit/5 Ml Syringe) 500 unit IVFLUSH ONCE WALTER Stop: 05/07/23 23:59 Ondansetron HCl (Ondansetron Odt 8 Mg Tab.Rapdis) 8 mg TRANSLINGU ONCE WALTER Stop: 05/07/23 23:59 Home Medications Medication Instructions Recorded Confirmed Type buprenorphine 4 mg-naloxone 1 mg 1 strip sublingual DAILY 01/18/22 05/07/23 History sublingual film (Suboxone) metoprolol tartrate 50 1 tab PO DAILY 01/18/22 05/07/23 History mg-hydrochlorothiazide 25 mg tablet milnacipran 50 mg tablet (Savella) 50 mg PO BID 01/18/22 05/07/23 History omeprazole 20 mg capsule,delayed 20 mg PO DAILY@0630 01/18/22 05/07/23 History release paroxetine HCl 20 mg tablet 60 mg PO DAILY 01/18/22 05/07/23 History umeclidinium 62.5 mcg-vilanterol 1 puff inhalation DAILY 01/18/22 05/07/23 History 25 mcg/actuation powdr for inhalation (Anoro Ellipta) cholecalciferol (vitamin D3) 50 50 mcg PO DAILY 02/17/22 05/07/23 History mcg (2,000 unit) tablet (Vitamin D3) dexamethasone 4 mg tablet 8 mg PO BID 02/17/22 05/07/23 History ipratropium 0.5 mg-albuterol 3 mg 3 ml inhalation Q6-8H PRN 02/17/22 05/07/23 History (2.5 mg base)/3 mL nebulization Shortness Of Breath Or Wheezing soln simvastatin 20 mg tablet 20 mg PO DAILY 02/17/22 05/07/23 History diltiazem HCl 180 mg 180 mg PO DAILY 03/26/23 05/07/23 History capsule,extended release 24 hr, controlled Allergies Allergy/AdvReac Type Severity Reaction Status Date / Time lisinopril [LISINOPRIL] Allergy Severe SWELLING- Verified 03/26/23 11:23 ANGIOEDEMA codeine [CODEINE] Allergy Intermediate VOMITING/HIVES, Verified 03/26/23 11:23 vomiting, hives Exam Vital signs: Vital Signs Temp 97.6 F 05/07/23 11:15 Pulse 78 05/07/23 11:15 Resp 18 05/07/23 11:15 BP 143/84 H 05/07/23 11:15 Pulse Ox 94 05/07/23 11:15 O2 Del Method Room Air 05/07/23 11:15 O2 Flow Rate 3 05/07/23 11:15 Intake & Output 05/06/23 05/07/23 05/07/23 18:59 06:59 18:59 Other: Weight 94.1 kg Junior Weight in Grams 52720 Weight 94.1 kg BMI result Body Mass Index 32.5 - Constitutional Present: no acute distress - Routine HEENT Exam Head: Present: normal inspection - Routine Neck Exam Absent: lymphadenopathy - Routine Respiratory Exam Present: CTAB. Absent: respiratory distress, rhonchi - Routine Cardiovascular Exam Cardiovascular: Present: RRR, S1, S2 - Routine Abdominal Exam Present: distended, soft. Absent: organomegaly - Routine Extremities Exam Present: pulses intact - Routine Skin Exam Present: intact. Absent: cyanosis Data - Labs CBC & Chem 7: 05/07/23 11:08 05/07/23 11:08 Assessment and Plan Patient Active problem list reviewed?: Yes (1) Bilateral lung cancer Problem details: (RUL lobectomy 07/2019 & LITA wedge 01/2021) Status: Chronic Assessment and plan: 1. This is a pleasant 62-year-old woman with bilateral lung adenocarcinoma. She has been diagnosed with recurrent metastatic lung cancer in the right with bone and brain metastasis in september 2021. She had right upper lobectomy/mediastinal lymphadenectomy on 08/03/2019 at [facility]. Pathology revealed invasive adenocarcinoma, tumor size 1.3 x 0.9 x 0.5 cm, moderately differentiated, tumor invades visceral pleura, no satellite nodules. Vascular invasion present, margins negative. Pathological TNM stage PT2a, pN0, MX. NGS panel negative for for alk rearrangement, ROS1 rearrangement, MET amplification, RET rearrangement and PTEN deletions, KRAS G12C mutation present, MSI stable, PD L1-TPS score 1, HER2 with breast scoring equivocal, stone TRK equivocal. RBM10 and TP53 alterations detected. On 01/21/2021 patient underwent left upper lobe wedge resection and lymph node biopsies. Pathology revealed adenocarcinoma tumor size 1.8 x 1.8 x 1.1 cm. Single focus, G2 moderately differentiated, visceral pleural invasion identified, lymphovascular invasion not identified. Margins negative. Two lymph nodes were examined, negative for carcinoma. Pathological TNM stage pT2a pN0. KRAS mutation Exon 2 ([id number]) positive, BRAF negative, PDL1 1%. EGFR and alk mutations were not tested as they are mutually exclusive if KRAS is present. ( it was sent to [facility] from [facility]). On 11/03/[address]-guided biopsy of right upper lobe mass, pathology -adenocarcinoma, moderately to poorly differentiated consistent with lung primary. PDL expression 1%, HER2 equivocal score 2+. Patient started on combination therapy with pembrolizumab, carboplatin and pemetrexed on 11/13/2021. She is on denosumab 120 mg subQ monthly for bone metastasis. Because of cytopenias, pemetrexed was discontinued from maintenance therapy. She is receiving single agent pembrolizumab at this time. 2. Bone metastasis. She is on denosumab. She is has been noncompliant calcium she was advised to take 600 mg calcium b.i.d.. She has intermittent back pain probably related to osteoarthritis/compression fracture of her spine. She she response to NSAIDs, she was asked to not use this excessively as it can cause kidney injury. 4. Pancytopenia/neutropenia related to chemotherapy. She has been unable to tolerate chemotherapy. 5. Renal insufficiency. She was seen by Nephrology. Primary suspect appears to be pemetrexed. Keytruda could also cause kidney injury. Nephrology is also felt that patient was hypertensive and dry. Recommendation was to stop hydrochlorothiazide. Her kidney functions have been stable. 6. Brain metastasis. Last brain MRI at [facility] in September [address] with out IV contrast performed 02/16/2023 showed abnormality. PET-CT performed at [facility] on 03/11/2023 showed postsurgical changes. 2.3 x 1.2 cm opacity in right lower lobe with faint FDG uptake of 2.2. No other FDG avid metastatic disease was seen. Continue with pembrolizumab. She is tolerating treatment well. She has mild intermittent elevations of TSH, this is being monitored. Follow-up in 6 weeks. - Time Spent With Patient Time Spent with Patient (in minutes): 15
[2023-05-07 11:40] LABS: Alanine Aminotransferase 9 U/L (0-31); Albumin Level 4.3 g/dL (3.5-5.0); Alkaline Phosphatase 61 U/L (39-117); Anion Gap 16 (12-20); Aspartate Amino Transferase 14 U/L (5-31); Bilirubin Total 0.5 mg/dL (0.0-1.0); Blood Urea Nitrogen 23 mg/dL (9-16); Calcium 10.3 mg/dL (8.4-10.2); Carbon Dioxide 34 mmol/L (22-29); Chloride 96 mmol/L (96-108); Creatinine Clr Calc Pharmacy 50.5; Estimated Glomerular Filt Rate 39; Glucose Random 153 mg/dL (60-115); Potassium 3.7 mmol/L (3.3-5.1); Sodium 142 mmol/L (135-145); Total Protein 8.2 g/dL (6.5-8.0)
[2023-05-07 11:55] LABS: Thyroid Stimulating Hormone 4.16 uIU/mL (0.32-4.0)
[2023-05-07] MEDS: Acetaminophen 325 MG TABLET 650 MG PO (11:55)
[2023-05-07] MEDS: Ondansetron ODT 8 MG TAB.RAPDIS TRANSLINGU (11:55)
--- NOTE | 2023-05-07 12:07 | MHC.HEMONC ---
Pt here for C24D1 Pembrolizumab. Labs drawn by yard spotter-specimen to lab. Pt states she has some fatigue and occasional diarrhea/constipation. States she is having 2 teeth extracted at [facility]. Dental release obtained from Dr Samuels-faxed to [facility]. Pt last received Denosumab 03/26/23, today's denosumab held today. Next Denosumab scheduled for 06/18/23-pt and pharmacy notified. Pre medicated with tylenol and zofran. Benadryl held per pt request. Pembrolizumab given as ordered-tolerated well. Peripheral IV removed-no edema or redness at site after removal of IV. Next appointment scheduled. Discharge packet given. Dr Samuels into see pt-notified of TSH level today-no no orders at this time. Pt declines wheelchair for discharge.
[2023-05-28 11:01] LABS: MANUAL DIFF FLAG NO
[2023-05-28 11:10] LABS: Basophils Absolute Auto 0.1 X10*3/uL (0.0-0.2); Basophils Percent Auto 0.9 % (0-2); Eosinophils Absolute Auto 0.2 X10*3/uL (0.0-0.4); Eosinophils Percent Auto 2.7 % (0-4); Hematocrit 33.2 % (37.0-47.0); Hemoglobin 11.3 g/dl (12.0-16.0); Imm Gran Abs Auto 0.03 X10*3/uL (0.00-0.03); Imm Gran Pct Auto 0.4 % (0.0-0.4); Lymphocytes Absolute Auto 1.3 X10*3/uL (1.2-4.9); Mean Corpuscular Hemoglobin 30.7 pg (27.0-33.0); Mean Corpuscular Volume 90.2 fL (80.0-98.0); Mean Platelet Volume 9.8 fL (9.4-12.3); Monocytes Absolute Auto 0.7 X10*3/uL (0.1-1.2); Monocytes Percent Auto 8.9 % (2-11); Neutrophils Absolute Auto 5.4 x10*3/uL (2.0-8.3); Neutrophils Percent Auto 70.1 % (45-73); Platelet Count 188 X10*3/uL (160-400); Red Blood Count 3.68 X10*6/uL (4.20-5.50); Red Cell Distribution Width 13.2 % (11.0-16.0); White Blood Count 7.7 X10*3/uL (4.8-10.8)
[2023-05-28 11:22] VITALS: BP 143/95; PULSE 78; RESP 20; TEMP 36.1; O2SAT 96
[2023-05-28 11:30] LABS: Alanine Aminotransferase 9 U/L (0-31); Albumin Level 4.3 g/dL (3.5-5.0); Alkaline Phosphatase 64 U/L (39-117); Anion Gap 15 (12-20); Aspartate Amino Transferase 13 U/L (5-31); Bilirubin Total 0.3 mg/dL (0.0-1.0); Blood Urea Nitrogen 36 mg/dL (9-16); Calcium 10.5 mg/dL (8.4-10.2); Carbon Dioxide 33 mmol/L (22-29); Chloride 97 mmol/L (96-108); Estimated Glomerular Filt Rate 38; Glucose Random 159 mg/dL (60-115); Potassium 3.9 mmol/L (3.3-5.1); Sodium 141 mmol/L (135-145); Total Protein 8.3 g/dL (6.5-8.0)
[2023-05-28] MEDS: Acetaminophen 325 MG TABLET 650 MG PO (11:43)
[2023-05-28] MEDS: Ondansetron ODT 8 MG TAB.RAPDIS TRANSLINGU (11:44)
--- NOTE | 2023-05-28 14:41 | MHC.HEMONC ---
Pt here for C25D1 Pembrolizumab. Denosumab on hold secondary to upcoming dental extraction. Labs drawn by repair table operator-specimen to lab. Pt states she is having right nipple pain-denies discharge from nipple. States she made appointment for mammogram. Lab results reviewed-okay to receive treatment today. #24 angio inserted in right AC with blood return noted. Pre medicated with tylenol and zofran, pt declines benadryl. Pembrolizumab given as ordered-tolerated well. Peripheral IV removed-no edema at site after removal of IV. Next appointment scheduled. Discharge packet given. Declines wheelchair for discharge. Instructed to call with any questions or concerns
--- NOTE | 2023-06-02 17:18 | MHC.HEMONC ---
Nurse received fax request from [facility] for new scrip for potassium chloride 20 mEq PO daily. Nurse gave request to covering provider Dr. Hughes, who sent digital scrip to [facility] in [place].
[2023-06-18 11:19] LABS: MANUAL DIFF FLAG NO
[2023-06-18 11:22] LABS: Basophils Absolute Auto 0.1 X10*3/uL (0.0-0.2); Basophils Percent Auto 1.1 % (0-2); Eosinophils Absolute Auto 0.3 X10*3/uL (0.0-0.4); Eosinophils Percent Auto 3.9 % (0-4); Hemoglobin 10.5 g/dl (12.0-16.0); Imm Gran Abs Auto 0.03 X10*3/uL (0.00-0.03); Imm Gran Pct Auto 0.4 % (0.0-0.4); Lymphocytes Absolute Auto 1.4 X10*3/uL (1.2-4.9); Lymphocytes Percent Auto 19.1 % (20-40); Mean Corpuscular HGB Conc 32.8 g/dl (31.0-35.0); Mean Corpuscular Volume 91.4 fL (80.0-98.0); Mean Platelet Volume 9.3 fL (9.4-12.3); Monocytes Absolute Auto 0.7 X10*3/uL (0.1-1.2); Monocytes Percent Auto 8.8 % (2-11); Neutrophils Percent Auto 66.7 % (45-73); Platelet Count 189 X10*3/uL (160-400); Red Cell Distribution Width 13.4 % (11.0-16.0); White Blood Count 7.5 X10*3/uL (4.8-10.8)
[2023-06-18 11:31] VITALS: BP 143/79; PULSE 74; RESP 19; TEMP 35.5; O2SAT 96; BMI 31.9
[2023-06-18 11:44] LABS: Alanine Aminotransferase 9 U/L (0-31); Albumin Level 4.3 g/dL (3.5-5.0); Alkaline Phosphatase 61 U/L (39-117); Anion Gap 14 (12-20); Aspartate Amino Transferase 13 U/L (5-31); Bilirubin Total 0.4 mg/dL (0.0-1.0); Blood Urea Nitrogen 27 mg/dL (9-16); Calcium 9.3 mg/dL (8.4-10.2); Carbon Dioxide 33 mmol/L (22-29); Chloride 96 mmol/L (96-108); Creatinine Clr Calc Pharmacy 49.3; Estimated Glomerular Filt Rate 39; Glucose Random 127 mg/dL (60-115); Potassium 3.4 mmol/L (3.3-5.1); Sodium 140 mmol/L (135-145)
[2023-06-18] MEDS: Acetaminophen 325 MG TABLET 650 MG PO (11:51)
[2023-06-18] MEDS: Ondansetron ODT 8 MG TAB.RAPDIS TRANSLINGU (11:52)
[2023-06-18 11:58] LABS: Thyroid Stimulating Hormone 4.79 uIU/mL (0.32-4.0)
--- NOTE | 2023-06-18 13:20 | MHC.HEMONC ---
Pt here for Pembrolizumab. Labs drawn by needle board repairer-specimen to lab. Pt states she was seen by her PCP yesterday for wheezing and started on Augmentin. Denies fever. Dr Samuels notified okay to receive treatment today. Pt states she cancelled her tooth extraction secondary to illness and will need to reschedule appointment-Dr Samuels notified, okay to receive denosumab injection today. Labs results reviewed. Pt continues to use oxygen at 3L via NC. #22 angio inserted in right AC with blood return noted. Pre medicated with tylenol and zofran. Pt refuses benadryl. Calcium level 9.6 Denosumab 120 mg ( PA good til 10/17/23) SC given in right arm-tolerated well. Pembrolizumab given as ordered-tolerated well. Peripheral IV removed no edema or redness at site after removal of IV. Next appointment scheduled. Discharge packet given. Declines wheelchair for discharge-escorted to front of hospital
[2023-07-09 11:05] LABS: MANUAL DIFF FLAG NO
[2023-07-09 11:16] VITALS: BP 144/94; PULSE 111; TEMP 35.9; O2SAT 95; BMI 32.0
[2023-07-09 11:20] LABS: Basophils Absolute Auto 0.1 X10*3/uL (0.0-0.2); Basophils Percent Auto 1.2 % (0-2); Eosinophils Absolute Auto 0.2 X10*3/uL (0.0-0.4); Eosinophils Percent Auto 2.5 % (0-4); Hematocrit 34.4 % (37.0-47.0); Hemoglobin 11.5 g/dl (12.0-16.0); Imm Gran Abs Auto 0.03 X10*3/uL (0.00-0.03); Imm Gran Pct Auto 0.4 % (0.0-0.4); Lymphocytes Absolute Auto 1.5 X10*3/uL (1.2-4.9); Lymphocytes Percent Auto 20.4 % (20-40); Mean Corpuscular HGB Conc 33.4 g/dl (31.0-35.0); Mean Corpuscular Hemoglobin 31.3 pg (27.0-33.0); Mean Corpuscular Volume 93.5 fL (80.0-98.0); Mean Platelet Volume 9.7 fL (9.4-12.3); Monocytes Absolute Auto 0.7 X10*3/uL (0.1-1.2); Monocytes Percent Auto 9.3 % (2-11); Neutrophils Percent Auto 66.2 % (45-73); Platelet Count 217 X10*3/uL (160-400); Red Blood Count 3.68 X10*6/uL (4.20-5.50); Red Cell Distribution Width 14.3 % (11.0-16.0); White Blood Count 7.5 X10*3/uL (4.8-10.8)
[2023-07-09 11:27] VITALS: PULSE 140
[2023-07-09 11:28] LABS: Alanine Aminotransferase 11 U/L (0-31); Albumin Level 4.2 g/dL (3.5-5.0); Alkaline Phosphatase 68 U/L (39-117); Anion Gap 15 (12-20); Aspartate Amino Transferase 15 U/L (5-31); Bilirubin Total 0.4 mg/dL (0.0-1.0); Blood Urea Nitrogen 16 mg/dL (9-16); Calcium 9.5 mg/dL (8.4-10.2); Carbon Dioxide 27 mmol/L (22-29); Chloride 103 mmol/L (96-108); Creatinine Clr Calc Pharmacy 47.3; Estimated Glomerular Filt Rate 37; Glucose Random 165 mg/dL (60-115); Potassium 3.5 mmol/L (3.3-5.1); Sodium 141 mmol/L (135-145); Total Protein 7.9 g/dL (6.5-8.0)
--- NOTE | 2023-07-09 11:31 | ECG_ITS ---
Test Reason : TACHY, IRREG PULSE Blood Pressure : / mmHG Vent. Rate : 119 BPM Atrial Rate : 000 BPM P-R Int : 000 ms QRS Dur : 072 ms QT Int : 324 ms P-R-T Axes : 000 026 003 degrees QTc Int : 455 ms Atrial fibrillation with rapid ventricular response Abnormal ECG When compared with ECG of 17-FEB-2022 06:08, Atrial fibrillation has replaced Sinus rhythm Referred By: Lion Hughes Electronically Signed By:Rc Roberts
[2023-07-09 12:25] LABS: Thyroid Stimulating Hormone 4.77 uIU/mL (0.32-4.0)
--- NOTE | 2023-07-09 18:08 | MHC.HEMONC ---
Pt was in for C27D1 Pembrolizumab, unfortunately said her breathing had become much worse, daniela in the past week since she quit smoking. 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 Pt's labs resulted stable, but pt had pulse of >110 upon arrival. Nurse then confirmed pt to have irregular apical pulse of > 140, informed Dr. Hughes. 12-lead EKG was performed, showed tachy afib/flutter, pt was advised she should be transferred to the ER. Tristen Soto placed 22g PIV to pt's R AC w/ positive blood return. Dr. Hughes placed doc-to-doc call and this nurse accompanied pt to the ER, gave warm handoff to ER nurse. Chemo pharmacist was updated, pt's tx was rescheduled to 07/16/23, as well as tx plan.
--- NOTE | 2023-07-16 12:24 | MHC.HEMONC ---
Addendum entered by Bianca Park RN 07/16/23 16:01: Pt returned call and she stated she was sleeping and didn't hear her phone. She is rescheduled for Saturday 07/22 and is aware. Original Note: Pt scheduled for chemo treatment today, but has not come in. Was recently hospitalized and discharged on 07/09. Telephone call to pt but no answer, and mailbox full so unable to leave message. Telephone call to her daughter, who states Elida may not know she had appointment today. She will call her and have her call office. Waiting for call back. Pharmacy notified.
[2023-07-23 11:00] LABS: MANUAL DIFF FLAG NO
[2023-07-23 11:04] VITALS: BP 157/96; PULSE 96; RESP 20; TEMP 36.5; O2SAT 97; BMI 32.0
[2023-07-23 11:05] LABS: Basophils Absolute Auto 0.1 X10*3/uL (0.0-0.2); Basophils Percent Auto 0.7 % (0-2); Eosinophils Absolute Auto 0.2 X10*3/uL (0.0-0.4); Eosinophils Percent Auto 2.5 % (0-4); Hematocrit 33.5 % (37.0-47.0); Hemoglobin 10.9 g/dl (12.0-16.0); Imm Gran Abs Auto 0.06 X10*3/uL (0.00-0.03); Imm Gran Pct Auto 0.7 % (0.0-0.4); Lymphocytes Absolute Auto 1.3 X10*3/uL (1.2-4.9); Lymphocytes Percent Auto 16.5 % (20-40); Mean Corpuscular HGB Conc 32.5 g/dl (31.0-35.0); Mean Corpuscular Hemoglobin 30.1 pg (27.0-33.0); Mean Corpuscular Volume 92.5 fL (80.0-98.0); Mean Platelet Volume 9.4 fL (9.4-12.3); Monocytes Absolute Auto 0.7 X10*3/uL (0.1-1.2); Neutrophils Absolute Auto 5.8 x10*3/uL (2.0-8.3); Neutrophils Percent Auto 71.6 % (45-73); Platelet Count 215 X10*3/uL (160-400); Red Blood Count 3.62 X10*6/uL (4.20-5.50); Red Cell Distribution Width 13.5 % (11.0-16.0); White Blood Count 8.1 X10*3/uL (4.8-10.8)
[2023-07-23 11:23] LABS: Alanine Aminotransferase 8 U/L (0-31); Albumin Level 4.1 g/dL (3.5-5.0); Alkaline Phosphatase 59 U/L (39-117); Anion Gap 15 (12-20); Aspartate Amino Transferase 13 U/L (5-31); Bilirubin Total 0.3 mg/dL (0.0-1.0); Blood Urea Nitrogen 20 mg/dL (9-16); Calcium 9.3 mg/dL (8.4-10.2); Carbon Dioxide 28 mmol/L (22-29); Chloride 103 mmol/L (96-108); Creatinine Clr Calc Pharmacy 59.8; Estimated Glomerular Filt Rate 48; Glucose Random 123 mg/dL (60-115); Potassium 3.6 mmol/L (3.3-5.1); Sodium 142 mmol/L (135-145); Total Protein 7.9 g/dL (6.5-8.0)
[2023-07-23] MEDS: Acetaminophen 325 MG TABLET 650 MG PO (11:35)
[2023-07-23] MEDS: Ondansetron ODT 8 MG TAB.RAPDIS TRANSLINGU (11:35)
--- NOTE | 2023-07-23 11:45 | MHC.HEMONC ---
c27 pembro today. Labs drawn and reviewed. #22 IV placed in right AC with good blood return. Premeds and Pembro tolerated well. No denosumab given today, she has an appointment for tooth extraction on 07/25. Pt aware of next appt, discharge packet provided.
[2023-07-23 12:19] LABS: Thyroid Stimulating Hormone 11.59 uIU/mL (0.32-4.0)
--- NOTE | 2023-07-23 13:04 | P.PNHO-ONC_ITS ---
Medical Summary - Medical Summary Date of Service: 07/23/23 Chief complaint: Follow-up Primary Care Provider: Daphne Rodriguez MD Medical Summary: Diagnosis: Right upper lobe Wedge resection in July 2019, adenocarcinoma Left lower lobe wedge resection in January 2021 adenocarcinoma She was diagnosed with right upper lobe lung adenocarcinoma and underwent right upper lobectomy/mediastinal lymphadenectomy on 08/03/2019 at [facility]. Pathology revealed invasive adenocarcinoma, tumor size 1.3 x 0.9 x 0.5 cm, moderately differentiated, tumor invades visceral pleura, no satellite nodules. Vascular invasion present, margins negative. Pathological TNM stage PT2a, pN0, MX. Surveillance CT chest with contrast performed 12/26/2020 showed stable postsurgical changes, 2 new/increasing suspicious areas in the right lower lobe nodules. Interval increase in suspicious appearing cavitary left upper lobe nodule. Numerous bilateral small ground-glass nodules. On 01/21/2021 patient underwent left upper lobe wedge resection and lymph node biopsies. Pathology revealed adenocarcinoma tumor size 1.8 x 1.8 x 1.1 cm. Single focus, G2 moderately differentiated, visceral pleural invasion identified, lymphovascular invasion not identified. Margins negative. Two lymph nodes were examined, negative for carcinoma. Pathological TNM stage pT2a pN0. Molecular studies to be obtained from [facility], this was ordered last week. Stage IB cancer without any high-risk features such as lymphovascular invasion. Surveillance imaging with CT chest/abdomen and pelvis performed in September 2021 showed new right lower lobe mass measuring 1.7 x 1.3 cm suspicious for new/metastatic lesion. Sub pleural ground-glass attenuation measuring 1.4 x 1.1 cm similar to previous exam. Second lesion in the right lower lobe posterior basal segment measuring 1.6 x 1.4 cm which is also suspicious. Subcarinal lymph nodes largest measuring 1.3 x 2.1 cm and large pretracheal lymph node measuring 1.5 x 1.5 cm all suspicious for disease recurrence.. CT abdomen showed stable 1.4 cm right adrenal lesion. Extensive fine interstitial markings throughout right lower lobe likely post radiation changes. PET-CT was recommended for further evaluation. Remote history of radiation for her right breast for cancer treatment. PET-CT performed 10/14/21 showed extensive FDG avid consolidation in the right middle lobe, worse than CT scan in September. Inflammatory versus infectious etiology along with malignancy. New FDG avid mediastinal lymphadenopathy suspicious for recurrence or metastatic malignancy. FDG avid vertebral lesions in C7 and T7 suspicious for metastasis. Stable right adrenal nodule showed no FDG activity. Patient started on combination therapy with pembrolizumab, carboplatin and pemetrexed on 11/13/2021. She is on denosumab 120 mg subQ monthly for bone metastasis. Repeat PET-CT Performed 03/24/2022 showed interval resolution of previously documented right FDG avid airspace disease involving right middle and right lower lobes as well as FDG avid mediastinal lymph nodes. Brain MRI from 03/2022 showed 3 mm enhancement on the left parietal lobe and 2 mm enhancement in the right parietal lobe concerning for small metastatic foci. Repeat PET-CT in July 2022 shows no FDG avid lesions and stable from prior scan in March 2022. Interval History Interval history: Patient is here in follow-up. She is doing better now since she had fluid removed from her lung. Her breathing is better. She denies any fever or chills. She is here for scheduled treatment. She has no other complaints such as cough, abdominal pain, diarrhea or nausea. Review of Systems - Constitutional Reports as per HPI, Denies fatigue, Denies fever(s), Denies lack of energy, Denies malaise - Cardiovascular Reports no additional cardiovascular complaints - Respiratory Reports no additional respiratory complaints - Neurologic Reports weakness PMFSH Medical History: Medical History (Last Reviewed 07/10/23 @ 09:32 by Alexandria Aceves RN) Bilateral lung cancer Cancer of upper lobe of left lung Onset Date: ~2020 Cancer of upper lobe of right lung Onset Date: ~2019 COPD (chronic obstructive pulmonary disease) Depression GERD (gastroesophageal reflux disease) History of breast cancer Onset Date: ~2006 History of hepatitis C HTN (hypertension) Internal and external bleeding hemorrhoids New onset a-fib Obesity Pancytopenia Pulmonary nodules Smoker Tubular adenoma of colon Family History: Family History (Last Reviewed 07/09/23 @ 16:55 by Pb Freire MD) Mother History of lung cancer Brother History of lung cancer Maternal Grandmother Breast cancer in female Maternal Aunt Breast cancer in female Daughter Thyroid cancer Surgical History: Surgical History (Last Reviewed 07/10/23 @ 09:32 by Alexandria Aceves RN) History of anterior colporrhaphy Onset Date: ~2016 History of back surgery Onset Date: ~2011 History of colonoscopy Onset Date: ~2014 History of hemorrhoidectomy Onset Date: ~2019 History of lobectomy of lung Onset Date: ~2019 History of lumpectomy of right breast Onset Date: ~2006 History of lung surgery Onset Date: ~2020 History of tubal ligation Social History: Social History (Last Reviewed 07/09/23 @ 16:55 by Pb Freire MD) Living Situation History: Household Members: Significant Other Household Members Other:: 2 Housing: Apartment Are you a primary hospice care consultant to a significant other at home: No Do you presently have visiting nurse or other home services: Yes Alcohol History: Unable to assess alcohol history related to: Unable to respond Alcohol History Details: 1. How often do you have a drink containing alcohol?: b. Monthly or less 2. How many drinks containing alcohol do you have on a typical day when you are drinking?: a. 1 or 2 Tobacco History: Patient Tobacco Use Status: Former Tobacco user Tobacco use type: Cigarette Cigarette Packs Per Day: 1 Years Smoked: 46 Smoked in Last 30 Days: Yes Smoke Quit Date: 06/30/23 Second Hand Smoke Exposure: Yes Substance Use History: Use of substances other than those prescribed or required for medical reasons : Yes Substance Use Type: Marijuana Substance Use Type Other:: 5 mg edibles Last Used Substance Other:: IV heroin 8 years ago Domestic Abuse History: Have you been hit, kicked, punched, or otherwise hurt by someone within the past year? If so, by whom?: No Do you feel safe in your current relationship?: Yes Advance Directives: Advance Directives Date on File: 02/02/22 Homicidal Assessment: Do you have thoughts of harming others: None Do you have a plan to hurt others: No Plan Do you have the means to hurt others: No Nutrition Assessment: Recently lost weight without trying: No Occupation Assessmet: service: No Current occupational status: disabled Current occupational exposures/hazards: No Home Medications and Allergies Current Medications: Current Medications Acetaminophen (Acetaminophen 325 Mg Tablet) 650 mg PO ONCE WALTER Stop: 07/23/23 23:59 Last Admin: 07/23/23 11:35 Dose: 650 mg Diphenhydramine HCl (Diphenhydramine Hcl 25 Mg Capsule) 25 mg PO ONCE WALTER Stop: 07/23/23 23:59 Heparin Sodium (Porcine) (Heparin Sodium,Porcine Flush 500 Unit/5 Ml Syringe) 500 unit IVFLUSH ONCE WALTER Stop: 07/23/23 23:59 Pembrolizumab 200 mg/ Sodium (Chloride) 58 mls @ 116 mls/hr IV ONCE WALTER Stop: 07/23/23 23:59 Last Infusion: 07/23/23 12:44 Dose: Infused Ondansetron HCl (Ondansetron Odt 8 Mg Tab.Rapdis) 8 mg TRANSLINGU ONCE WALTER Stop: 07/23/23 23:59 Last Admin: 07/23/23 11:35 Dose: 8 mg Home Medications ?Medication ?Instructions ?Recorded ?Confirmed ?Type milnacipran 50 mg tablet (Savella) 50 mg PO BID 01/18/22 07/09/23 History omeprazole 20 mg capsule,delayed 20 mg PO DAILY@0630 01/18/22 07/09/23 History release paroxetine HCl 20 mg tablet 40 mg PO BID 01/18/22 07/09/23 History simvastatin 20 mg tablet 20 mg PO BEDTIME 02/17/22 07/09/23 History albuterol sulfate 90 mcg/actuation 2 puff inhalation Q6H PRN sob 06/22/23 07/09/23 History aerosol inhaler (Ventolin HFA) buprenorphine 2 mg-naloxone 0.5 mg 0.5 film sublingual DAILY 07/09/23 07/09/23 History sublingual film (Suboxone) docusate sodium 100 mg capsule 100 mg PO BEDTIME stool softener 07/09/23 07/09/23 History ipratropium 0.5 mg-albuterol 3 mg 3 ml inhalation Q6H PRN Shortness 07/09/23 07/09/23 History (2.5 mg base)/3 mL nebulization Of Breath Or Wheezing soln umeclidinium 62.5 mcg-vilanterol 1 inh inhalation DAILY 07/09/23 07/09/23 History 25 mcg/actuation powdr for inhalation (Anoro Ellipta) Allergies Allergy/AdvReac Type Severity Reaction Status Date / Time lisinopril [LISINOPRIL] Allergy Severe SWELLING- Verified 06/22/23 13:13 ANGIOEDEMA codeine [CODEINE] Allergy Intermediate VOMITING/HIVES, Verified 06/22/23 13:13 vomiting, hives Exam Vital signs: Vital Signs Temp 97.7 F 07/23/23 11:04 Pulse 96 07/23/23 11:04 Resp 20 07/23/23 11:04 BP 157/96 H 07/23/23 11:04 Pulse Ox 97 07/23/23 11:04 O2 Del Method Nasal Cannula 07/23/23 11:04 O2 Flow Rate 3 07/23/23 11:04 Intake & Output 07/22/23 07/23/23 07/23/23 18:59 06:59 18:59 Intake Total Balance Intake: Intake, IV Amount Pembrolizumab 200 mg In 0.9 % Sodium Chloride 50 ml @ 116 mls /hr IV ONCE WALTER Rx#:[id number] Other: Weight 92.7 kg [place] Weight in Grams 34473 Weight 92.7 kg BMI result Body Mass Index 32.0 - Constitutional Present: no acute distress - Routine HEENT Exam Head: Present: normal inspection - Routine Neck Exam Absent: lymphadenopathy - Routine Respiratory Exam Present: CTAB. Absent: respiratory distress, rhonchi - Routine Cardiovascular Exam Cardiovascular: Present: RRR, S1, S2 - Routine Abdominal Exam Present: distended, soft. Absent: organomegaly - Routine Extremities Exam Present: pulses intact - Routine Skin Exam Present: intact. Absent: cyanosis Data - Labs CBC & Chem 7: 07/23/23 10:57 07/23/23 10:57 Assessment and Plan Patient Active problem list reviewed?: Yes (1) Bilateral lung cancer Problem details: (RUL lobectomy 07/2019 & LITA wedge 01/2021) Status: Chronic Assessment and plan: 1. This is a pleasant 62-year-old woman with bilateral lung adenocarcinoma. She has been diagnosed with recurrent metastatic lung cancer in the right with bone and brain metastasis in september 2021. She had right upper lobectomy/mediastinal lymphadenectomy on 08/03/2019 at [facility]. Pathology revealed invasive adenocarcinoma, tumor size 1.3 x 0.9 x 0.5 cm, moderately differentiated, tumor invades visceral pleura, no satellite nodules. Vascular invasion present, margins negative. Pathological TNM stage PT2a, pN0, MX. NGS panel negative for for alk rearrangement, ROS1 rearrangement, MET amplification, RET rearrangement and PTEN deletions, KRAS G12C mutation present, MSI stable, PD L1-TPS score 1, HER2 with breast scoring equivocal, stone TRK equivocal. RBM10 and TP53 alterations detected. On 01/21/2021 patient underwent left upper lobe wedge resection and lymph node biopsies. Pathology revealed adenocarcinoma tumor size 1.8 x 1.8 x 1.1 cm. Single focus, G2 moderately differentiated, visceral pleural invasion identified, lymphovascular invasion not identified. Margins negative. Two lymph nodes were examined, negative for carcinoma. Pathological TNM stage pT2a pN0. KRAS mutation Exon 2 ([id number]) positive, BRAF negative, PDL1 1%. EGFR and alk mutations were not tested as they are mutually exclusive if KRAS is present. ( it was sent to [facility] from [facility]). On 11/03/[address]-guided biopsy of right upper lobe mass, pathology -adenocarcinoma, moderately to poorly differentiated consistent with lung primary. PDL expression 1%, HER2 equivocal score 2+. Patient started on combination therapy with pembrolizumab, carboplatin and pemetrexed on 11/13/2021. She is on denosumab 120 mg subQ monthly for bone metastasis. Because of cytopenias, pemetrexed was discontinued from maintenance therapy. She is receiving single agent pembrolizumab at this time. PET-CT performed at [facility] on 03/11/2023 showed postsurgical changes. 2.3 x 1.2 cm opacity in right lower lobe with faint FDG uptake of 2.2. No other FDG avid metastatic disease was seen. 2. Bone metastasis. She is on denosumab. She is has been noncompliant calcium she was advised to take 600 mg calcium b.i.d.. 3. Pancytopenia/neutropenia related to chemotherapy. She has been unable to tolerate chemotherapy. 4. Renal insufficiency. She was seen by Nephrology. Primary suspect appears to be pemetrexed. Keytruda could also cause kidney injury. Nephrology is also felt that patient was hypertensive and dry. Recommendation was to stop hydrochlorothiazide. Her kidney functions have been stable. 5. Brain metastasis. Last brain MRI at [facility] in September [address] with out IV contrast performed 02/16/2023 showed abnormality. 7. Left pleural effusion. She had a L of fluid removed by left thoracentesis on 07/09/2023. Cytology was negative for malignant cells. 8. Hypothyroidism. TSH is above 10. She is being started on Synthroid 25 mcg p.o. daily. Continue with pembrolizumab. Chest x-ray to re-evaluate pleural effusion has been ordered. Follow-up in 6 weeks. - Time Spent With Patient Time Spent with Patient (in minutes): 20
[2023-08-13 10:56] LABS: MANUAL DIFF FLAG NO
[2023-08-13 10:58] VITALS: BMI 31.1
[2023-08-13 11:00] LABS: Basophils Absolute Auto 0.1 X10*3/uL (0.0-0.2); Basophils Percent Auto 0.9 % (0-2); Eosinophils Absolute Auto 0.3 X10*3/uL (0.0-0.4); Eosinophils Percent Auto 3.4 % (0-4); Hematocrit 35.9 % (37.0-47.0); Imm Gran Abs Auto 0.02 X10*3/uL (0.00-0.03); Imm Gran Pct Auto 0.3 % (0.0-0.4); Lymphocytes Absolute Auto 0.8 X10*3/uL (1.2-4.9); Lymphocytes Percent Auto 10.7 % (20-40); Mean Corpuscular HGB Conc 33.4 g/dl (31.0-35.0); Mean Corpuscular Hemoglobin 30.5 pg (27.0-33.0); Mean Corpuscular Volume 91.1 fL (80.0-98.0); Monocytes Absolute Auto 0.6 X10*3/uL (0.1-1.2); Monocytes Percent Auto 7.9 % (2-11); Neutrophils Percent Auto 76.8 % (45-73); Platelet Count 205 X10*3/uL (160-400); Red Blood Count 3.94 X10*6/uL (4.20-5.50); Red Cell Distribution Width 13.3 % (11.0-16.0); White Blood Count 7.9 X10*3/uL (4.8-10.8)
[2023-08-13 11:19] VITALS: BP 144/88; PULSE 71; RESP 18; TEMP 35.7; O2SAT 98
[2023-08-13 11:24] LABS: Alanine Aminotransferase 7 U/L (0-31); Albumin Level 4.3 g/dL (3.5-5.0); Alkaline Phosphatase 66 U/L (39-117); Anion Gap 17 (12-20); Aspartate Amino Transferase 12 U/L (5-31); Bilirubin Total 0.2 mg/dL (0.0-1.0); Blood Urea Nitrogen 22 mg/dL (9-16); Calcium 10.3 mg/dL (8.4-10.2); Carbon Dioxide 31 mmol/L (22-29); Chloride 97 mmol/L (96-108); Creatinine Clr Calc Pharmacy 53.7; Estimated Glomerular Filt Rate 43; Glucose Random 134 mg/dL (60-115); Potassium 3.3 mmol/L (3.3-5.1); Sodium 142 mmol/L (135-145); Total Protein 8.2 g/dL (6.5-8.0)
[2023-08-13 11:39] LABS: Thyroid Stimulating Hormone 1.71 uIU/mL (0.32-4.0)
[2023-08-13] MEDS: Acetaminophen 325 MG TABLET 650 MG PO (11:45)
[2023-08-13] MEDS: Ondansetron ODT 8 MG TAB.RAPDIS TRANSLINGU (11:45)
--- NOTE | 2023-08-13 15:35 | MHC.HEMONC ---
Pt here for C28D1 Pembrolizumab. Labs drawn by material preparation worker-specimen to lab. Pt states she was dope sick last week-states she ran out of her suboxone. States she continues with fatigue and sleeps alot States had to re schedule most of her appointments. Last received denosumab on 06/18/23-tooth extraction now scheduled for 08/18/23-? next denosumab injection for 2 months after tooth extraction. Lab results reviewed-okay to receive treatment today. #24 angio inserted in left hand with blood return noted. Pre medicated with tylenol and zofran, pt declines benadryl. Pembrolizumab given as ordered-tolerated well. Peripheral IV removed-no edema or redness at site after removal of IV. Next appointment scheduled. Discharge packet given. Escorted to front of hospital via wheelchair. Instructed to call with any questions or concerns
[2023-09-03 11:01] LABS: MANUAL DIFF FLAG NO
[2023-09-03 11:03] LABS: Basophils Absolute Auto 0.1 X10*3/uL (0.0-0.2); Basophils Percent Auto 1.3 % (0-2); Eosinophils Absolute Auto 0.3 X10*3/uL (0.0-0.4); Eosinophils Percent Auto 2.6 % (0-4); Hematocrit 36.9 % (37.0-47.0); Hemoglobin 12.2 g/dl (12.0-16.0); Imm Gran Abs Auto 0.06 X10*3/uL (0.00-0.03); Imm Gran Pct Auto 0.6 % (0.0-0.4); Lymphocytes Absolute Auto 1.6 X10*3/uL (1.2-4.9); Lymphocytes Percent Auto 15.6 % (20-40); Mean Corpuscular HGB Conc 33.1 g/dl (31.0-35.0); Mean Corpuscular Hemoglobin 29.4 pg (27.0-33.0); Mean Corpuscular Volume 88.9 fL (80.0-98.0); Mean Platelet Volume 9.8 fL (9.4-12.3); Monocytes Absolute Auto 0.8 X10*3/uL (0.1-1.2); Monocytes Percent Auto 8.1 % (2-11); Neutrophils Absolute Auto 7.4 x10*3/uL (2.0-8.3); Neutrophils Percent Auto 71.8 % (45-73); Platelet Count 238 X10*3/uL (160-400); Red Blood Count 4.15 X10*6/uL (4.20-5.50); Red Cell Distribution Width 13.6 % (11.0-16.0); White Blood Count 10.3 X10*3/uL (4.8-10.8)
[2023-09-03 11:11] VITALS: BP 130/79; PULSE 78; RESP 18; TEMP 36.6; O2SAT 99; BMI 31.1
[2023-09-03 11:25] LABS: Alanine Aminotransferase 8 U/L (0-31); Albumin Level 4.5 g/dL (3.5-5.0); Alkaline Phosphatase 66 U/L (39-117); Anion Gap 17 (12-20); Aspartate Amino Transferase 13 U/L (5-31); Bilirubin Total 0.4 mg/dL (0.0-1.0); Blood Urea Nitrogen 30 mg/dL (9-16); Calcium 10.1 mg/dL (8.4-10.2); Carbon Dioxide 28 mmol/L (22-29); Chloride 96 mmol/L (96-108); Creatinine Clr Calc Pharmacy 44.5; Estimated Glomerular Filt Rate 35; Glucose Random 173 mg/dL (60-115); Sodium 138 mmol/L (135-145); Total Protein 8.5 g/dL (6.5-8.0)
[2023-09-03 11:39] LABS: Thyroid Stimulating Hormone 4.61 uIU/mL (0.32-4.0)
[2023-09-03] MEDS: Ondansetron ODT 8 MG TAB.RAPDIS TRANSLINGU (12:02)
[2023-09-03] MEDS: Potassium Chloride ER 20 MEQ TAB.ER.PRT 40 MEQ PO (12:02)
[2023-09-03] MEDS: Acetaminophen 325 MG TABLET 650 MG PO (12:02)
--- NOTE | 2023-09-03 12:35 | PM.HEMONCPN ---
Medical Summary - Medical Summary Date of Service: 09/03/23 Chief complaint: Follow-up Primary Care Provider: Daphne Rodriguez MD Medical Summary: Diagnosis: Right upper lobe Wedge resection in July 2019, adenocarcinoma Left lower lobe wedge resection in January 2021 adenocarcinoma She was diagnosed with right upper lobe lung adenocarcinoma and underwent right upper lobectomy/mediastinal lymphadenectomy on 08/03/2019 at [facility]. Pathology revealed invasive adenocarcinoma, tumor size 1.3 x 0.9 x 0.5 cm, moderately differentiated, tumor invades visceral pleura, no satellite nodules. Vascular invasion present, margins negative. Pathological TNM stage PT2a, pN0, MX. Surveillance CT chest with contrast performed 12/26/2020 showed stable postsurgical changes, 2 new/increasing suspicious areas in the right lower lobe nodules. Interval increase in suspicious appearing cavitary left upper lobe nodule. Numerous bilateral small ground-glass nodules. On 01/21/2021 patient underwent left upper lobe wedge resection and lymph node biopsies. Pathology revealed adenocarcinoma tumor size 1.8 x 1.8 x 1.1 cm. Single focus, G2 moderately differentiated, visceral pleural invasion identified, lymphovascular invasion not identified. Margins negative. Two lymph nodes were examined, negative for carcinoma. Pathological TNM stage pT2a pN0. Molecular studies to be obtained from [facility], this was ordered last week. Stage IB cancer without any high-risk features such as lymphovascular invasion. Surveillance imaging with CT chest/abdomen and pelvis performed in September 2021 showed new right lower lobe mass measuring 1.7 x 1.3 cm suspicious for new/metastatic lesion. Sub pleural ground-glass attenuation measuring 1.4 x 1.1 cm similar to previous exam. Second lesion in the right lower lobe posterior basal segment measuring 1.6 x 1.4 cm which is also suspicious. Subcarinal lymph nodes largest measuring 1.3 x 2.1 cm and large pretracheal lymph node measuring 1.5 x 1.5 cm all suspicious for disease recurrence.. CT abdomen showed stable 1.4 cm right adrenal lesion. Extensive fine interstitial markings throughout right lower lobe likely post radiation changes. PET-CT was recommended for further evaluation. Remote history of radiation for her right breast for cancer treatment. PET-CT performed 10/14/21 showed extensive FDG avid consolidation in the right middle lobe, worse than CT scan in September. Inflammatory versus infectious etiology along with malignancy. New FDG avid mediastinal lymphadenopathy suspicious for recurrence or metastatic malignancy. FDG avid vertebral lesions in C7 and T7 suspicious for metastasis. Stable right adrenal nodule showed no FDG activity. Patient started on combination therapy with pembrolizumab, carboplatin and pemetrexed on 11/13/2021. She is on denosumab 120 mg subQ monthly for bone metastasis. Repeat PET-CT Performed 03/24/2022 showed interval resolution of previously documented right FDG avid airspace disease involving right middle and right lower lobes as well as FDG avid mediastinal lymph nodes. Brain MRI from 03/2022 showed 3 mm enhancement on the left parietal lobe and 2 mm enhancement in the right parietal lobe concerning for small metastatic foci. Repeat PET-CT in July 2022 shows no FDG avid lesions and stable from prior scan in March 2022. Brain MRI at [facility] in September 2022 was negative. Interval History Interval history: Patient is here in follow-up and scheduled treatment. She is doing much better and denies any acute complaints at this time. She denies any fever or chills. She is here for scheduled treatment. She has no other complaints such as cough, abdominal pain, diarrhea or nausea. She is tolerating immunotherapy well. Review of Systems - Constitutional Reports as per HPI, Denies fatigue, Denies lack of energy, Denies weight loss - Cardiovascular Reports no additional cardiovascular complaints - Respiratory Reports no additional respiratory complaints - Gastrointestinal Reports no additional gastrointestinal complaints - Neurologic Reports weakness [facility] Medical History: Medical History (Last Reviewed 07/10/23 @ 09:32 by Alexandria Aceves RN) Bilateral lung cancer Cancer of upper lobe of left lung Onset Date: ~2020 Cancer of upper lobe of right lung Onset Date: ~2019 COPD (chronic obstructive pulmonary disease) Depression GERD (gastroesophageal reflux disease) History of breast cancer Onset Date: ~2006 History of hepatitis C HTN (hypertension) Internal and external bleeding hemorrhoids New onset a-fib Obesity Pancytopenia Pulmonary nodules Smoker Tubular adenoma of colon Family History: Family History (Last Reviewed 07/09/23 @ 16:55 by Pb Freire MD) Mother History of lung cancer Brother History of lung cancer Maternal Grandmother Breast cancer in female Maternal Aunt Breast cancer in female Daughter Thyroid cancer Surgical History: Surgical History (Last Reviewed 07/10/23 @ 09:32 by Alexandria Aceves RN) History of anterior colporrhaphy Onset Date: ~2016 History of back surgery Onset Date: ~2011 History of colonoscopy Onset Date: ~2014 History of hemorrhoidectomy Onset Date: ~2019 History of lobectomy of lung Onset Date: ~2019 History of lumpectomy of right breast Onset Date: ~2006 History of lung surgery Onset Date: ~2020 History of tubal ligation Social History: Social History (Last Reviewed 07/09/23 @ 16:55 by Pb Freire MD) Living Situation History: Household Members: Significant Other Household Members Other:: 2 Housing: Apartment Are you a primary ocular care aide to a significant other at home: No Do you presently have visiting nurse or other home services: Yes Alcohol History: Unable to assess alcohol history related to: Unable to respond Alcohol History Details: 1. How often do you have a drink containing alcohol?: b. Monthly or less 2. How many drinks containing alcohol do you have on a typical day when you are drinking?: a. 1 or 2 Tobacco History: Patient Tobacco Use Status: Former Tobacco user Tobacco use type: Cigarette Cigarette Packs Per Day: 1 Years Smoked: 46 Smoked in Last 30 Days: Yes Smoke Quit Date: 06/30/23 Second Hand Smoke Exposure: Yes Substance Use History: Use of substances other than those prescribed or required for medical reasons: Yes Substance Use Type: Marijuana Substance Use Type Other:: 5 mg edibles Last Used Substance Other:: IV heroin 8 years ago Domestic Abuse History: Have you been hit, kicked, punched, or otherwise hurt by someone within the past year? If so, by whom?: No Do you feel safe in your current relationship?: Yes Advance Directives: Advance Directives Date on File: 02/02/22 Homicidal Assessment: Do you have thoughts of harming others: None Do you have a plan to hurt others: No Plan Do you have the means to hurt others: No Nutrition Assessment: Recently lost weight without trying: No Occupation Assessmet: service: No Current occupational status: disabled Current occupational exposures/hazards: No Home Medications and Allergies Current Medications: Current Medications Acetaminophen (Acetaminophen 325 Mg Tablet) 650 mg PO ONCE WALTER Stop: 09/03/23 23:59 Last Admin: 09/03/23 12:02 Dose: 650 mg Diphenhydramine HCl (Diphenhydramine Hcl 25 Mg Capsule) 25 mg PO ONCE WALTER Stop: 09/03/23 23:59 Heparin Sodium (Porcine) (Heparin Sodium,Porcine Flush 500 Unit/5 Ml Syringe) 500 unit IVFLUSH ONCE WALTER Stop: 09/03/23 23:59 Pembrolizumab 200 mg/ Sodium (Chloride) 58 mls @ 116 mls/hr IV ONCE WALTER Stop: 09/03/23 23:59 Ondansetron HCl (Ondansetron Odt 8 Mg Tab.Rapdis) 8 mg TRANSLINGU ONCE WALTER Stop: 09/03/23 23:59 Last Admin: 09/03/23 12:02 Dose: 8 mg Home Medications ?Medication ?Instructions ?Recorded ?Confirmed ?Type milnacipran 50 mg tablet (Savella) 50 mg PO BID 01/18/22 09/03/23 History omeprazole 20 mg capsule,delayed 20 mg PO DAILY@0630 01/18/22 09/03/23 History release paroxetine HCl 20 mg tablet 40 mg PO BID 01/18/22 09/03/23 History simvastatin 20 mg tablet 20 mg PO BEDTIME 02/17/22 09/03/23 History albuterol sulfate 90 mcg/actuation 2 puff inhalation Q6H PRN sob 06/22/23 09/03/23 History aerosol inhaler (Ventolin HFA) buprenorphine 2 mg-naloxone 0.5 mg 0.5 film sublingual DAILY 07/09/23 09/03/23 History sublingual film (Suboxone) docusate sodium 100 mg capsule 100 mg PO BEDTIME stool softener 07/09/23 09/03/23 History ipratropium 0.5 mg-albuterol 3 mg 3 ml inhalation Q6H PRN Shortness 07/09/23 09/03/23 History (2.5 mg base)/3 mL nebulization Of Breath Or Wheezing soln umeclidinium 62.5 mcg-vilanterol 1 inh inhalation DAILY 07/09/23 09/03/23 History 25 mcg/actuation powdr for inhalation (Anoro Ellipta) Allergies Allergy/AdvReac Type Severity Reaction Status Date / Time lisinopril [LISINOPRIL] Allergy Severe SWELLING- Verified 09/03/23 12:08 ANGIOEDEMA codeine [CODEINE] Allergy Intermediate VOMITING/HIVES, Verified 09/03/23 12:08 vomiting, hives Exam Vital signs: Vital Signs Temp 97.8 F 09/03/23 11:11 Pulse 78 09/03/23 11:11 Resp 18 09/03/23 11:11 BP 130/79 09/03/23 11:11 Pulse Ox 99 09/03/23 11:11 O2 Del Method Room Air 09/03/23 11:11 O2 Flow Rate 2 08/13/23 11:19 Intake & Output 09/02/23 09/03/23 09/03/23 18:59 06:59 18:59 Other: Weight 90.1 kg [facility] Weight in Grams 43557 Weight 90.1 kg BMI result Body Mass Index 31.1 - Constitutional Present: no acute distress - Routine HEENT Exam Head: Present: normal inspection - Routine Neck Exam Absent: lymphadenopathy - Routine Respiratory Exam Present: CTAB. Absent: respiratory distress, rhonchi - Routine Cardiovascular Exam Cardiovascular: Present: RRR, S1, S2 - Routine Abdominal Exam Present: distended, soft. Absent: organomegaly - Routine Extremities Exam Present: pulses intact - Routine Skin Exam Present: intact. Absent: cyanosis Data - Labs CBC & Chem 7: 09/03/23 10:59 09/03/23 10:59 Assessment and Plan Patient Active problem list reviewed?: Yes (1) Bilateral lung cancer Problem details: (RUL lobectomy 07/2019 & LITA wedge 01/2021) Status: Chronic Assessment and plan: 1. This is a pleasant 62-year-old woman with bilateral lung adenocarcinoma. She has been diagnosed with recurrent metastatic lung cancer in the right with bone and brain metastasis in september 2021. She had right upper lobectomy/mediastinal lymphadenectomy on 08/03/2019 at [facility]. Pathology revealed invasive adenocarcinoma, tumor size 1.3 x 0.9 x 0.5 cm, moderately differentiated, tumor invades visceral pleura, no satellite nodules. Vascular invasion present, margins negative. Pathological TNM stage PT2a, pN0, MX. NGS panel negative for for alk rearrangement, ROS1 rearrangement, MET amplification, RET rearrangement and PTEN deletions, KRAS G12C mutation present, MSI stable, PD L1-TPS score 1, HER2 with breast scoring equivocal, stone TRK equivocal. RBM10 and TP53 alterations detected. On 01/21/2021 patient underwent left upper lobe wedge resection and lymph node biopsies. Pathology revealed adenocarcinoma tumor size 1.8 x 1.8 x 1.1 cm. Single focus, G2 moderately differentiated, visceral pleural invasion identified, lymphovascular invasion not identified. Margins negative. Two lymph nodes were examined, negative for carcinoma. Pathological TNM stage pT2a pN0. KRAS mutation Exon 2 ([id number]) positive, BRAF negative, PDL1 1%. EGFR and alk mutations were not tested as they are mutually exclusive if KRAS is present. ( it was sent to [facility] from [facility]). On 11/03/[address]-guided biopsy of right upper lobe mass, pathology -adenocarcinoma, moderately to poorly differentiated consistent with lung primary. PDL expression 1%, HER2 equivocal score 2+. Patient started on combination therapy with pembrolizumab, carboplatin and pemetrexed on 11/13/2021. She is on denosumab 120 mg subQ monthly for bone metastasis. Because of cytopenias, pemetrexed was discontinued from maintenance therapy. She is receiving single agent pembrolizumab at this time. PET-CT performed at [facility] on 03/11/2023 showed postsurgical changes. 2.3 x 1.2 cm opacity in right lower lobe with faint FDG uptake of 2.2. No other FDG avid metastatic disease was seen. 2. Bone metastasis. She is on denosumab. She is has been noncompliant calcium she was advised to take 600 mg calcium b.i.d.. 3. Pancytopenia/neutropenia related to chemotherapy. She has been unable to tolerate chemotherapy. 4. Renal insufficiency. She was seen by Nephrology. Primary suspect appears to be pemetrexed. Keytruda could also cause kidney injury. Nephrology is also felt that patient was hypertensive and dry. Recommendation was to stop hydrochlorothiazide. Her kidney functions have been stable. 5. Brain metastasis. Last Scan, head CT with out IV contrast performed 02/16/2023 showed no abnormality. 7. Left pleural effusion. She had a L of fluid removed by left thoracentesis on 07/09/2023. Cytology was negative for malignant cells. 8. Hypothyroidism. TSH is above 10. She is being started on Synthroid 25 mcg p.o. daily. Continue with pembrolizumab. PET-CT has been ordered to assess response to ongoing treatment. Follow-up in 6 weeks. - Time Spent With Patient Time Spent with Patient (in minutes): 20
--- NOTE | 2023-09-03 13:52 | MHC.HEMONCMA ---
requested PET scan at [facility].
--- NOTE | 2023-09-03 14:09 | HO.HEMONCPA ---
NO PA NEEDED FOR PET/CT SKULL TO THIGH [id number] BUT DOES REQUIRE INSURANCE REFERRAL # [id number] SENT TO [facility] PET/CT FOR SCHEDULING
--- NOTE | 2023-09-03 17:27 | MHC.HEMONC ---
Pt walked in on foot for C29D1 Pembrolizumab, as well as Onc f/u appt, labs drawn/reviewed, VSS, pt on 2 LPM O2/NC, pt reports feeling exhausted all the time, sleeps a lot, also had a bit of N/V yesterday, but was isolated incident. Pt's labs were reviewed, Dr. Samuels was aware of intermittently elevated Creatinine, also pt was mildly hypokalemic w/ K+ of 3.0. Nurse admin pre-meds: PO tylenol, PO zofran, pt declined PO benadryl, also was given x1 dose of potassium 40 mEq ER. Nurse placed 24g PIV to pt's Right AC w/ positive blood return. Pt was admin IV Pembro over 30 minutes, well-tolerated. Pt met w/ Dr. Samuels. Pt reportedly had her tooth pulled about 2 weeks ago, thus no Denosumab was ordered for today, will be delayed until future cycle d/t risk of osteonecrosis of the jaw. Nurse flushed PIV and removed, escorted pt to the lobby via w/c. Dr. Samuels told pt this may be her last tx w/ IV Pembro, but uncertain, will discuss at her next chemo appt in 3 weeks.
--- NOTE | 2023-09-09 09:13 | MHC.HEMONCMA ---
called Jessi escamilla for an appt time/date for pt's PET scan. I was told they received the order but haven't yet booked an appt for pt.
--- NOTE | 2023-09-14 11:01 | HO.HEMONCSCH ---
Addendum entered by Joleen Goddard 09/21/23 11:04: Patient booked for PET/CT at [facility] in [place] 10/04 at 3:20 pm Original Note: Patient booked for PET/CT at [facility] in [place] 09/19 at 510pm patient notified by phone and confirmed
--- NOTE | 2023-09-16 14:45 | HO.HEMONCPA ---
Addendum entered by Joleen Goddard 09/20/23 08:42: PA FOR [facility]UNOM[facility] (XGEVA) ([id number]) APPROVED AUTH # [id number] DOS 09/16/26 - 09/16/24 Original Note: PA FOR DESUNOM[facility] (XGEVA) ([id number]) PENDING. AWAITING DECISION FROM [facility] START DATE 10/18/23
[2023-09-24 11:13] LABS: MANUAL DIFF FLAG NO
[2023-09-24 11:23] LABS: Basophils Absolute Auto 0.1 X10*3/uL (0.0-0.2); Basophils Percent Auto 0.7 % (0-2); Eosinophils Absolute Auto 0.2 X10*3/uL (0.0-0.4); Eosinophils Percent Auto 2.9 % (0-4); Hematocrit 32.9 % (37.0-47.0); Imm Gran Abs Auto 0.03 X10*3/uL (0.00-0.03); Imm Gran Pct Auto 0.4 % (0.0-0.4); Lymphocytes Percent Auto 11.9 % (20-40); Mean Corpuscular HGB Conc 33.4 g/dl (31.0-35.0); Mean Corpuscular Hemoglobin 29.4 pg (27.0-33.0); Mean Platelet Volume 9.8 fL (9.4-12.3); Monocytes Absolute Auto 0.8 X10*3/uL (0.1-1.2); Monocytes Percent Auto 9.4 % (2-11); Neutrophils Absolute Auto 6.1 x10*3/uL (2.0-8.3); Neutrophils Percent Auto 74.7 % (45-73); Platelet Count 209 X10*3/uL (160-400); Red Blood Count 3.74 X10*6/uL (4.20-5.50); Red Cell Distribution Width 13.9 % (11.0-16.0); White Blood Count 8.2 X10*3/uL (4.8-10.8)
[2023-09-24 11:26] VITALS: BP 149/71; PULSE 67; RESP 18; TEMP 35.5; O2SAT 95; BMI 31.7
[2023-09-24 11:46] LABS: Alanine Aminotransferase 8 U/L (0-31); Albumin Level 4.1 g/dL (3.5-5.0); Alkaline Phosphatase 64 U/L (39-117); Anion Gap 12 (12-20); Aspartate Amino Transferase 12 U/L (5-31); Bilirubin Total 0.3 mg/dL (0.0-1.0); Blood Urea Nitrogen 27 mg/dL (9-16); Calcium 10.8 mg/dL (8.4-10.2); Carbon Dioxide 34 mmol/L (22-29); Chloride 95 mmol/L (96-108); Creatinine Clr Calc Pharmacy 50.7; Estimated Glomerular Filt Rate 41; Glucose Random 125 mg/dL (60-115); Potassium 3.1 mmol/L (3.3-5.1); Sodium 138 mmol/L (135-145); Total Protein 7.8 g/dL (6.5-8.0)
[2023-09-24 12:02] LABS: Thyroid Stimulating Hormone 2.74 uIU/mL (0.32-4.0)
[2023-09-24] MEDS: Acetaminophen 325 MG TABLET 650 MG PO (12:10)
[2023-09-24] MEDS: Ondansetron ODT 8 MG TAB.RAPDIS TRANSLINGU (12:10)
[2023-09-24] MEDS: Potassium Chloride ER 20 MEQ TAB.ER.PRT 40 MEQ PO (12:11)
--- NOTE | 2023-09-24 15:48 | MHC.HEMONC ---
Pt here for C30D1 Pembrolizumab. Labs drawn by volunteer assistant-specimen to lab. Pt states she feels well today Denosumab remains on hold until October status post tooth removal. Lab results reviewed-okay to receive treatment today. Dr Samuels notified of potassium level 3.1-plan for oral potassium per provider. #22 angio inserted in right AC with blood return noted. Pre medicated with tylenol, zofran, 40 meq kcl. Pt states she takes oral potassium daily as directed. Pembrolizumab given as ordered-tolerated well. Peripheral IV removed-no edema or redness at site after removal of IV. Next appointment scheduled. Discharge packet given. Escorted to front of hospital via wheelchair.
[2023-10-15 11:14] LABS: MANUAL DIFF FLAG NO
[2023-10-15 11:27] LABS: Basophils Absolute Auto 0.1 X10*3/uL (0.0-0.2); Eosinophils Absolute Auto 0.3 X10*3/uL (0.0-0.4); Eosinophils Percent Auto 2.5 % (0-4); Hematocrit 33.6 % (37.0-47.0); Imm Gran Abs Auto 0.07 X10*3/uL (0.00-0.03); Imm Gran Pct Auto 0.7 % (0.0-0.4); Lymphocytes Absolute Auto 1.3 X10*3/uL (1.2-4.9); Mean Corpuscular HGB Conc 32.7 g/dl (31.0-35.0); Mean Corpuscular Hemoglobin 28.9 pg (27.0-33.0); Mean Corpuscular Volume 88.4 fL (80.0-98.0); Mean Platelet Volume 9.4 fL (9.4-12.3); Monocytes Absolute Auto 0.9 X10*3/uL (0.1-1.2); Monocytes Percent Auto 8.7 % (2-11); Neutrophils Absolute Auto 7.3 x10*3/uL (2.0-8.3); Neutrophils Percent Auto 74.1 % (45-73); Platelet Count 216 X10*3/uL (160-400); Red Cell Distribution Width 14.5 % (11.0-16.0); White Blood Count 9.8 X10*3/uL (4.8-10.8)
[2023-10-15 11:29] VITALS: BP 114/53; PULSE 88; RESP 19; TEMP 35.5; O2SAT 96; BMI 31.7
[2023-10-15 11:34] LABS: Alanine Aminotransferase 8 U/L (0-31); Alkaline Phosphatase 65 U/L (39-117); Anion Gap 15 (12-20); Aspartate Amino Transferase 11 U/L (5-31); Bilirubin Total 0.3 mg/dL (0.0-1.0); Blood Urea Nitrogen 25 mg/dL (9-16); Calcium 10.4 mg/dL (8.4-10.2); Carbon Dioxide 32 mmol/L (22-29); Chloride 97 mmol/L (96-108); Creatinine Clr Calc Pharmacy 44.4; Estimated Glomerular Filt Rate 35; Glucose Random 144 mg/dL (60-115); Potassium 3.1 mmol/L (3.3-5.1); Sodium 141 mmol/L (135-145); Total Protein 7.5 g/dL (6.5-8.0)
[2023-10-15] MEDS: 0.9 % Sodium Chloride 1,000 ML 999 ML IV (11:45)
[2023-10-15] MEDS: Ondansetron ODT 8 MG TAB.RAPDIS TRANSLINGU (12:05)
[2023-10-15] MEDS: Acetaminophen 325 MG TABLET 650 MG PO (12:06)
[2023-10-15] MEDS: Potassium Chloride ER 20 MEQ TAB.ER.PRT PO (12:20)
[2023-10-15] MEDS: Potassium Chloride/H20 10 MEQ/100 ML PIGGYBACK 100 MEQ IV (12:21)
--- NOTE | 2023-10-15 16:00 | MHC.HEMONC ---
Pt here for C31D1 Pembrolizumab. Labs drawn by liability claims manager-specimen to lab. Dr Samuels into see pt. Lab results reviewed, potassium level 3.1, creatinine 1.51-reported to Dr Samuels. Plan for 1000ml 0.9% NS, 10 meq KCL IV and 20 meq kcl po. #22 angio inserted in right AC with blood return noted. 1000 ml 0.9% NS and potassium 10 meq IV and potassium 20 meq po. Pre medicated with tylenol, zofran-pt declines benadryl. Per Dr Samuels denosumab stopped-pt will not receive denosumab any longer. Pembrolizumab given as ordered-tolerated well. Peripheral IV removed-no edema or redness at site after removal of IV. Next appointment scheduled-discharge packet given. Instructed to call with any questions or concerns. Discharged to front of hospital via wheelchair
--- NOTE | 2023-10-15 16:35 | P.PNHO-ONC_ITS ---
Medical Summary - Medical Summary Date of Service: 10/15/23 Chief complaint: Follow-up and scheduled treatment Primary Care Provider: Daphne Rodriguez MD Medical Summary: Diagnosis: Right upper lobe Wedge resection in July 2019, adenocarcinoma Left lower lobe wedge resection in January 2021 adenocarcinoma She was diagnosed with right upper lobe lung adenocarcinoma and underwent right upper lobectomy/mediastinal lymphadenectomy on 08/03/2019 at [facility]. Pathology revealed invasive adenocarcinoma, tumor size 1.3 x 0.9 x 0.5 cm, moderately differentiated, tumor invades visceral pleura, no satellite nodules. Vascular invasion present, margins negative. Pathological TNM stage PT2a, pN0, MX. Surveillance CT chest with contrast performed 12/26/2020 showed stable postsurgical changes, 2 new/increasing suspicious areas in the right lower lobe nodules. Interval increase in suspicious appearing cavitary left upper lobe nodule. Numerous bilateral small ground-glass nodules. On 01/21/2021 patient underwent left upper lobe wedge resection and lymph node biopsies. Pathology revealed adenocarcinoma tumor size 1.8 x 1.8 x 1.1 cm. Single focus, G2 moderately differentiated, visceral pleural invasion identified, lymphovascular invasion not identified. Margins negative. Two lymph nodes were examined, negative for carcinoma. Pathological TNM stage pT2a pN0. Molecular studies to be obtained from [facility], this was ordered last week. Stage IB cancer without any high-risk features such as lymphovascular invasion. Surveillance imaging with CT chest/abdomen and pelvis performed in September 2021 showed new right lower lobe mass measuring 1.7 x 1.3 cm suspicious for new/metastatic lesion. Sub pleural ground-glass attenuation measuring 1.4 x 1.1 cm similar to previous exam. Second lesion in the right lower lobe posterior basal segment measuring 1.6 x 1.4 cm which is also suspicious. Subcarinal lymph nodes largest measuring 1.3 x 2.1 cm and large pretracheal lymph node measuring 1.5 x 1.5 cm all suspicious for disease recurrence.. CT abdomen showed stable 1.4 cm right adrenal lesion. Extensive fine interstitial markings throughout right lower lobe likely post radiation changes. PET-CT was recommended for further evaluation. Remote history of radiation for her right breast for cancer treatment. PET-CT performed 10/14/21 showed extensive FDG avid consolidation in the right middle lobe, worse than CT scan in September. Inflammatory versus infectious etiology along with malignancy. New FDG avid mediastinal lymphadenopathy suspicious for recurrence or metastatic malignancy. FDG avid vertebral lesions in C7 and T7 suspicious for metastasis. Stable right adrenal nodule showed no FDG activity. Patient started on combination therapy with pembrolizumab, carboplatin and pemetrexed on 11/13/2021. She is on denosumab 120 mg subQ monthly for bone metastasis. Repeat PET-CT Performed 03/24/2022 showed interval resolution of previously documented right FDG avid airspace disease involving right middle and right lower lobes as well as FDG avid mediastinal lymph nodes. Brain MRI from 03/2022 showed 3 mm enhancement on the left parietal lobe and 2 mm enhancement in the right parietal lobe concerning for small metastatic foci. Repeat PET-CT in July 2022 shows no FDG avid lesions and stable from prior scan in March 2022. Brain MRI at [facility] in September 2022 was negative. PET-CT performed at [facility] on 03/11/2023 showed postsurgical changes. 2.3 x 1.2 cm opacity in right lower lobe with faint FDG uptake of 2.2. No other FDG avid metastatic disease was seen. Interval History Interval history: Patient is here in follow-up and scheduled treatment. She is doing okay but admits to drinking alcohol a bit excessively in the last few days. She did not feel well for a few days and knows now to avoid alcohol. She has been trying to hydrate more. She denies any fever or chills. She has no other complaints such as cough, abdominal pain, diarrhea or nausea. She is tolerating immunotherapy well. Review of Systems - Constitutional Reports as per HPI, Denies lack of energy, Denies malaise - Cardiovascular Reports no additional cardiovascular complaints - Respiratory Reports no additional respiratory complaints - Gastrointestinal Reports no additional gastrointestinal complaints - Neurologic Reports weakness [facility] Medical History: Medical History (Last Reviewed 07/10/23 @ 09:32 by Alexandria Aceves RN) Bilateral lung cancer Cancer of upper lobe of left lung Onset Date: ~2020 Cancer of upper lobe of right lung Onset Date: ~2019 COPD (chronic obstructive pulmonary disease) Depression GERD (gastroesophageal reflux disease) History of breast cancer Onset Date: ~2006 History of hepatitis C HTN (hypertension) Internal and external bleeding hemorrhoids New onset a-fib Obesity Pancytopenia Pulmonary nodules Smoker Tubular adenoma of colon Family History: Family History (Last Reviewed 07/09/23 @ 16:55 by Pb Freire MD) Mother History of lung cancer Brother History of lung cancer Maternal Grandmother Breast cancer in female Maternal Aunt Breast cancer in female Daughter Thyroid cancer Surgical History: Surgical History (Last Reviewed 07/10/23 @ 09:32 by Alexandria Aceves RN) History of anterior colporrhaphy Onset Date: ~2016 History of back surgery Onset Date: ~2011 History of colonoscopy Onset Date: ~2014 History of hemorrhoidectomy Onset Date: ~2019 History of lobectomy of lung Onset Date: ~2019 History of lumpectomy of right breast Onset Date: ~2006 History of lung surgery Onset Date: ~2020 History of tubal ligation Social History: Social History (Last Reviewed 07/09/23 @ 16:55 by Pb Freire MD) Living Situation History: Household Members: Significant Other Household Members Other:: 2 Housing: Apartment Are you a primary auto care center manager to a significant other at home: No Do you presently have visiting nurse or other home services: Yes Alcohol History: Unable to assess alcohol history related to: Unable to respond Alcohol History Details: 1. How often do you have a drink containing alcohol?: b. Monthly or less 2. How many drinks containing alcohol do you have on a typical day when you are drinking?: a. 1 or 2 Tobacco History: Patient Tobacco Use Status: Former Tobacco user Tobacco use type: Cigarette Cigarette Packs Per Day: 1 Cigarettes Per Day: 20.0 Years Smoked: 46 Smoked in Last 30 Days: Yes Second Hand Smoke Exposure: Yes Substance Use History: Use of substances other than those prescribed or required for medical reasons : Yes Substance Use Type: Marijuana Substance Use Type Other:: 5 mg edibles Last Used Substance Other:: IV heroin 8 years ago Domestic Abuse History: Have you been hit, kicked, punched, or otherwise hurt by someone within the past year? If so, by whom?: No Do you feel safe in your current relationship?: Yes Advance Directives: Advance Directives Date on File: 02/02/22 Homicidal Assessment: Do you have thoughts of harming others: None Do you have a plan to hurt others: No Plan Do you have the means to hurt others: No Nutrition Assessment: Recently lost weight without trying: No Occupation Assessmet: service: No Current occupational status: disabled Current occupational exposures/hazards: No Home Medications and Allergies Current Medications: Current Medications Acetaminophen (Acetaminophen 325 Mg Tablet) 650 mg PO ONCE WALTER Stop: 10/15/23 23:59 Last Admin: 10/15/23 12:06 Dose: 650 mg Diphenhydramine HCl (Diphenhydramine Hcl 25 Mg Capsule) 25 mg PO ONCE WALTER Stop: 10/15/23 23:59 Heparin Sodium (Porcine) (Heparin Sodium,Porcine Flush 500 Unit/5 Ml Syringe) 500 unit IVFLUSH ONCE WALTER Stop: 10/15/23 23:59 Pembrolizumab 200 mg/ Sodium (Chloride) 58 mls @ 116 mls/hr IV ONCE WALTER Stop: 10/15/23 23:59 Last Infusion: 10/15/23 13:55 Dose: Infused Ondansetron HCl (Ondansetron Odt 8 Mg Tab.Rapdis) 8 mg TRANSLINGU ONCE WALTER Stop: 10/15/23 23:59 Last Admin: 10/15/23 12:05 Dose: 8 mg Home Medications ?Medication ?Instructions ?Recorded ?Confirmed ?Type milnacipran 50 mg tablet (Savella) 50 mg PO BID 01/18/22 10/15/23 History omeprazole 20 mg capsule,delayed 20 mg PO DAILY@0630 01/18/22 10/15/23 History release paroxetine HCl 20 mg tablet 40 mg PO BID 01/18/22 10/15/23 History simvastatin 20 mg tablet 20 mg PO BEDTIME 02/17/22 10/15/23 History albuterol sulfate 90 mcg/actuation 2 puff inhalation Q6H PRN sob 06/22/23 10/15/23 History aerosol inhaler (Ventolin HFA) buprenorphine 2 mg-naloxone 0.5 mg 0.5 film sublingual DAILY 07/09/23 10/15/23 History sublingual film (Suboxone) docusate sodium 100 mg capsule 100 mg PO BEDTIME stool softener 07/09/23 10/15/23 History umeclidinium 62.5 mcg-vilanterol 1 inh inhalation DAILY 07/09/23 10/15/23 History 25 mcg/actuation powdr for inhalation (Anoro Ellipta) Allergies Allergy/AdvReac Type Severity Reaction Status Date / Time lisinopril [LISINOPRIL] Allergy Severe SWELLING- Verified 09/03/23 12:08 ANGIOEDEMA codeine [CODEINE] Allergy Intermediate VOMITING/HIVES, Verified 09/03/23 12:08 vomiting, hives Exam Vital signs: Vital Signs Temp 96 F L 10/15/23 11:29 Pulse 88 10/15/23 11:29 Resp 19 10/15/23 11:29 BP 114/53 L 10/15/23 11:29 Pulse Ox 96 10/15/23 11:29 O2 Del Method Room Air 10/15/23 11:29 O2 Flow Rate 2 09/24/23 11:26 Intake & Output 10/14/23 10/15/23 10/15/23 18:59 06:59 18:59 Intake Total 1158 / 1158 Balance 1158 / 1158 Intake: Intake, IV Amount 1158 / 1158 0.9 % Sodium Chloride 1,000 ml 1000 / 1000 @ 999 mls/hr IV .Q1H1M WALTER Rx#: [id number] Pembrolizumab 200 mg In 0.9 % 58 / 58 Sodium Chloride 50 ml @ 116 mls /hr IV ONCE WALTER Rx#:[id number] Potassium Chloride/H20 10 meq 100 / 100 In 100 ml @ 100 mls/hr IV ONCE ONE Rx#:[id number] Other: Weight 91.9 kg Margaret Weight in Grams 46831 Weight 91.9 kg BMI result Body Mass Index 31.7 - Constitutional Present: no acute distress - Routine HEENT Exam Head: Present: normal inspection - Routine Neck Exam Absent: lymphadenopathy - Routine Respiratory Exam Present: CTAB. Absent: respiratory distress, rhonchi - Routine Cardiovascular Exam Cardiovascular: Present: RRR, S1, S2 - Routine Abdominal Exam Present: distended, soft. Absent: organomegaly - Routine Extremities Exam Present: pulses intact - Routine Skin Exam Present: intact. Absent: cyanosis Data - Labs CBC & Chem 7: 10/15/23 11:13 10/15/23 11:13 Assessment and Plan Patient Active problem list reviewed?: Yes (1) Bilateral lung cancer Problem details: (RUL lobectomy 07/2019 & LITA wedge 01/2021) Status: Chronic Assessment and plan: 1. This is a pleasant 63-year-old woman with bilateral lung adenocarcinoma. She has been diagnosed with recurrent metastatic lung cancer in the right with bone and brain metastasis in september 2021. She had right upper lobectomy/mediastinal lymphadenectomy on 08/03/2019 at [facility]. Pathology revealed invasive adenocarcinoma, tumor size 1.3 x 0.9 x 0.5 cm, moderately differentiated, tumor invades visceral pleura, no satellite nodules. Vascular invasion present, margins negative. Pathological TNM stage PT2a, pN0, MX. NGS panel negative for for alk rearrangement, ROS1 rearrangement, MET amplification, RET rearrangement and PTEN deletions, KRAS G12C mutation present, MSI stable, PD L1-TPS score 1, HER2 with breast scoring equivocal, stone TRK equivocal. RBM10 and TP53 alterations detected. On 01/21/2021 patient underwent left upper lobe wedge resection and lymph node biopsies. Pathology revealed adenocarcinoma tumor size 1.8 x 1.8 x 1.1 cm. Single focus, G2 moderately differentiated, visceral pleural invasion identified, lymphovascular invasion not identified. Margins negative. Two lymph nodes were examined, negative for carcinoma. Pathological TNM stage pT2a pN0. KRAS mutation Exon 2 ([id number]) positive, BRAF negative, PDL1 1%. EGFR and alk mutations were not tested as they are mutually exclusive if KRAS is present. ( it was sent to [facility] from [facility]). On 11/03/[address]-guided biopsy of right upper lobe mass, pathology -adenocarcinoma, moderately to poorly differentiated consistent with lung primary. PDL expression 1%, HER2 equivocal score 2+. Patient started on combination therapy with pembrolizumab, carboplatin and pemetrexed on 11/13/2021. She is on denosumab 120 mg subQ monthly for bone metastasis. Because of cytopenias, pemetrexed was discontinued from maintenance therapy. She is receiving single agent pembrolizumab at this time. PET-CT performed in August 2023 showed no significant change, right lower lobe lesion measuring 2.3 cm which is very mildly PET avid. No other evidence of metastatic disease, this was discussed with the patient today. 2. Bone metastasis. She is on denosumab. She is has been noncompliant calcium she was advised to take 600 mg calcium b.i.d.. 3. Pancytopenia/neutropenia related to chemotherapy. She has been unable to tolerate chemotherapy. 4. Renal insufficiency. She was seen by Nephrology. Primary suspect appears to be pemetrexed. Keytruda could also cause kidney injury. Nephrology is also felt that patient was hypertensive and dry. Recommendation was to stop hydrochlorothiazide. Her kidney functions have been stable. She was advised about avoiding alcohol, because of recent drinking, her creatinine worsened slightly. 5. Brain metastasis. Last Scan, head CT with out IV contrast performed 02/16/2023 showed no abnormality. 7. Left pleural effusion. She had a L of fluid removed by left thoracentesis on 07/09/2023. Cytology was negative for malignant cells. 8. Hypothyroidism. TSH is above 10. She is being started on Synthroid 25 mcg p.o. daily. Continue with pembrolizumab. Follow-up in 6 weeks. - Time Spent With Patient Time Spent with Patient (in minutes): 20 Additional Coding: - Additional E/M codes Complex E/M visit Add On: CPT G2211
--- NOTE | 2023-11-04 15:46 | MHC.HEMONC ---
Pt admitted as inpt on [facility]. Chemo moved out one week.
[2023-11-19 11:16] VITALS: BP 116/80; PULSE 90; RESP 22; TEMP 36.2; O2SAT 96; BMI 32.6
[2023-11-19 11:34] LABS: Basophils Absolute Auto 0.1 X10*3/uL (0.0-0.2); Basophils Percent Auto 0.3 % (0-2); Hematocrit 37.4 % (37.0-47.0); Hemoglobin 11.9 g/dl (12.0-16.0); Imm Gran Abs Auto 0.31 X10*3/uL (0.00-0.03); Imm Gran Pct Auto 1.4 % (0.0-0.4); Lymphocytes Absolute Auto 0.3 X10*3/uL (1.2-4.9); Lymphocytes Percent Auto 1.3 % (20-40); MANUAL DIFF FLAG SCAN; Mean Corpuscular HGB Conc 31.8 g/dl (31.0-35.0); Mean Corpuscular Hemoglobin 29.5 pg (27.0-33.0); Mean Corpuscular Volume 92.8 fL (80.0-98.0); Monocytes Absolute Auto 0.7 X10*3/uL (0.1-1.2); Neutrophils Absolute Auto 21.2 x10*3/uL (2.0-8.3); Red Blood Count 4.03 X10*6/uL (4.20-5.50); Red Cell Distribution Width 16.6 % (11.0-16.0); SCAN SMEAR FLAG 1; White Blood Count 22.5 X10*3/uL (4.8-10.8)
[2023-11-19 11:44] LABS: Alanine Aminotransferase 25 U/L (0-31); Albumin Level 3.9 g/dL (3.5-5.0); Alkaline Phosphatase 50 U/L (39-117); Anion Gap 17 (12-20); Aspartate Amino Transferase 16 U/L (5-31); Bilirubin Total 0.7 mg/dL (0.0-1.0); Blood Urea Nitrogen 35 mg/dL (9-16); Calcium 9.6 mg/dL (8.4-10.2); Carbon Dioxide 29 mmol/L (22-29); Chloride 98 mmol/L (96-108); Creatinine Clr Calc Pharmacy 47.8; Estimated Glomerular Filt Rate 37; Glucose Random 282 mg/dL (60-115); Potassium 4.2 mmol/L (3.3-5.1); Sodium 140 mmol/L (135-145); Total Protein 6.7 g/dL (6.5-8.0)
[2023-11-19 11:58] LABS: Thyroid Stimulating Hormone 4.18 uIU/mL (0.32-4.0)
[2023-11-19 12:02] LABS: Mean Platelet Volume 10.7 fL (9.4-12.3); Platelet Count 93 X10*3/uL (160-400)
[2023-11-19 12:03] LABS: SLIDE REVIEW VERIFIED
[2023-11-19] MEDS: Ondansetron ODT 8 MG TAB.RAPDIS TRANSLINGU (12:24)
[2023-11-19] MEDS: Acetaminophen 325 MG TABLET 650 MG PO (12:24)
--- NOTE | 2023-11-19 15:28 | MHC.HEMONC ---
Pt here for C32D1 Pembrolizumab. States she was recently discharged from hospital. Continues with oxygen use via NC at 3L. States she has fatigue, dyspneic on exertion, states has constipation which she takes a stool softener for with relief. States her mouth is sore secondary to having no teeth. Labs drawn by associate professor-specimen to lab. Lab results reviewed by Dr Romero to receive treatment today. #22 angio inserted in right AC with blood return noted. Pre medicated with tylenol, zofran, refused benadryl today. Pembrolizumab given as ordered-tolerated well. Peripheral IV removed-no edema or redness at site after removal of IV. Next appointment scheduled. Discharge packet given. Escorted to front of hospital via wheelchair. Instructed to call with any questions of concerns
--- NOTE | 2023-12-16 16:06 | MHC.HEMONC ---
Triage call-received call from Thelma at [facility] stating they were unable to get blood for blood draw today-requesting to be redrawn on Wednesday12/21/23
[2023-12-31 10:43] VITALS: BP 112/62; PULSE 80; RESP 20; TEMP 36.5; O2SAT 93; BMI 31.9
[2023-12-31 10:45] LABS: MANUAL DIFF FLAG NO
[2023-12-31 10:52] LABS: Basophils Absolute Auto 0.1 X10*3/uL (0.0-0.2); Basophils Percent Auto 0.6 % (0-2); Eosinophils Absolute Auto 0.1 X10*3/uL (0.0-0.4); Eosinophils Percent Auto 1.2 % (0-4); Hemoglobin 10.3 g/dl (12.0-16.0); Imm Gran Abs Auto 0.04 X10*3/uL (0.00-0.03); Imm Gran Pct Auto 0.4 % (0.0-0.4); Lymphocytes Absolute Auto 2.9 X10*3/uL (1.2-4.9); Lymphocytes Percent Auto 29.9 % (20-40); Mean Corpuscular HGB Conc 32.2 g/dl (31.0-35.0); Mean Corpuscular Hemoglobin 30.4 pg (27.0-33.0); Mean Corpuscular Volume 94.4 fL (80.0-98.0); Mean Platelet Volume 9.6 fL (9.4-12.3); Monocytes Absolute Auto 1.1 X10*3/uL (0.1-1.2); Monocytes Percent Auto 10.9 % (2-11); Neutrophils Absolute Auto 5.5 x10*3/uL (2.0-8.3); Platelet Count 269 X10*3/uL (160-400); Red Blood Count 3.39 X10*6/uL (4.20-5.50); Red Cell Distribution Width 17.2 % (11.0-16.0); White Blood Count 9.6 X10*3/uL (4.8-10.8)
[2023-12-31 11:12] LABS: Alanine Aminotransferase 12 U/L (0-31); Albumin Level 3.9 g/dL (3.5-5.0); Alkaline Phosphatase 66 U/L (39-117); Anion Gap 13 (12-20); Aspartate Amino Transferase 13 U/L (5-31); Bilirubin Total 0.5 mg/dL (0.0-1.0); Blood Urea Nitrogen 22 mg/dL (9-16); Calcium 9.4 mg/dL (8.4-10.2); Carbon Dioxide 32 mmol/L (22-29); Chloride 96 mmol/L (96-108); Creatinine Clr Calc Pharmacy 43.6; Estimated Glomerular Filt Rate 34; Glucose Random 142 mg/dL (60-115); Potassium 3.4 mmol/L (3.3-5.1); Sodium 138 mmol/L (135-145); Total Protein 7.1 g/dL (6.5-8.0)
[2023-12-31] MEDS: Ondansetron ODT 8 MG TAB.RAPDIS TRANSLINGU (11:54)
[2023-12-31] MEDS: Acetaminophen 325 MG TABLET 650 MG PO (11:55)
--- NOTE | 2023-12-31 14:41 | MHC.HEMONC ---
or [id number] Pembrolizumab. Labs drawn by plebotomist-specimen to lab. Pt states she has occasional dry heaves and nausea, states she is not sleeping well, continues on daily prednisone. States she has an appointment soon with manager compliance and registered nurse post partum. Lab results reviewed-okay to receive treatment today. #24 angio inserted in left forearm with blood return noted. Pre medicated with tylenol, zofran, pt refused benadryl today. Pembrolizumab given as ordered-tolerated well. Peripheral IV removed-no edema or redness at site after removal of IV. Next appointment scheduled-discharge packet given. Escorted to front entrance via wheelchair
--- NOTE | 2024-01-27 12:56 | MHC.HEMONC ---
[place] [facility] rescheduled to 02/04/24-message left with patient's nurse in [place] as pt's voicemail is full
[2024-02-04 13:15] LABS: MANUAL DIFF FLAG NO
[2024-02-04 13:20] VITALS: BP 149/92; PULSE 91; RESP 22; TEMP 36.1; O2SAT 93; BMI 33.8
[2024-02-04 13:41] LABS: Basophils Percent Auto 0.1 % (0-2); Eosinophils Absolute Auto 0.1 X10*3/uL (0.0-0.4); Eosinophils Percent Auto 0.9 % (0-4); Hematocrit 33.9 % (37.0-47.0); Hemoglobin 10.6 g/dl (12.0-16.0); Imm Gran Abs Auto 0.11 X10*3/uL (0.00-0.03); Lymphocytes Percent Auto 9.5 % (20-40); Mean Corpuscular HGB Conc 31.3 g/dl (31.0-35.0); Mean Platelet Volume 10.5 fL (9.4-12.3); Monocytes Absolute Auto 1.1 X10*3/uL (0.1-1.2); Monocytes Percent Auto 10.2 % (2-11); Neutrophils Absolute Auto 8.5 x10*3/uL (2.0-8.3); Neutrophils Percent Auto 78.3 % (45-73); Platelet Count 125 X10*3/uL (160-400); Red Blood Count 3.53 X10*6/uL (4.20-5.50); Red Cell Distribution Width 15.5 % (11.0-16.0); White Blood Count 10.9 X10*3/uL (4.8-10.8)
[2024-02-04 14:10] LABS: Alanine Aminotransferase 23 U/L (0-31); Albumin Level 3.8 g/dL (3.5-5.0); Alkaline Phosphatase 44 U/L (39-117); Anion Gap 12 (12-20); Aspartate Amino Transferase 22 U/L (5-31); Bilirubin Total 0.3 mg/dL (0.0-1.0); Blood Urea Nitrogen 24 mg/dL (9-16); Calcium 9.2 mg/dL (8.4-10.2); Carbon Dioxide 33 mmol/L (22-29); Chloride 99 mmol/L (96-108); Creatinine Clr Calc Pharmacy 60.7; Estimated Glomerular Filt Rate 48; Glucose Random 106 mg/dL (60-115); Potassium 3.9 mmol/L (3.3-5.1); Sodium 140 mmol/L (135-145); Total Protein 6.3 g/dL (6.5-8.0)
[2024-02-04 14:25] LABS: Thyroid Stimulating Hormone 2.53 uIU/mL (0.32-4.0)
--- NOTE | 2024-02-04 16:18 | MHC.HEMONC ---
Pt here for C34D1 Pembrolizumab. Labs drawn by burner hand after 2 attempts. Pt continues dyspnea on exertion-o2 on at 3L via NC. Congested non productive cough at times. Unable to obtain IV access secondary to sclerotic veins in both arms. ? hematoma noted in right AC. Dr Hughes into view arms-plan to push out chemotherapy today, pt to use warm compresses to right AC for comfort, Dr Hughes to order antibiotic-pt notified. Pharmacy notified. Calendar given with next appointment scheduled. Escorted to front of hospital via wheelchair
--- NOTE | 2024-02-11 08:08 | MHC.HEMONC ---
Pt is inpatient at [facility]-chemotherapy appointment rescheduled to 02/18/24
--- NOTE | 2024-02-28 13:00 | MHC.HEMONC ---
Per Holly Sullivan in case management pt is being transferred to [facility] in [place] for short term rehab. Chemotherapy scheduled for 03/03/24 pushed out 03/24/24.
== END 2024-04-27 13:03 | disposition home or self-care (01) ==
LOC: HO.ONC 13:40
PROVIDERS: PCP Pediatrics; Referring Provider Surgery; Visit Provider Internal Medicine
DX: C34.11 Malignant neoplasm of upper lobe, right bronchus or lung (principal); C34.12 Malignant neoplasm of upper lobe, left bronchus or lung; C79.51 Secondary malignant neoplasm of bone; C79.31 Secondary malignant neoplasm of brain; J90 Pleural effusion, not elsewhere classified; E03.9 Hypothyroidism, unspecified; F17.290 Nicotine dependence, other tobacco product, uncomplicated; Z85.3 Personal history of malignant neoplasm of breast; Z92.3 Personal history of irradiation; Z90.2 Acquired absence of lung [part of]
CPT/HCPCS: 36415; 36430; 80048; 80053; 81194; 81479; 82378; 82607; 82728; 82746; 83615; 83735; 84439; 84443; 85007; 85025; 85027; 85045; 86704; 86705; 86706; 86850; 86900; 86901; 86923; 87340; 88342; 88360; 88374; 88377; 93005; 96360; 96361; 96366; 96367; 96372; 96375; 96377; 96411; 96413; 96415; 96417; 99204; 99212; 99214; 99215; J0897; J1100; J1453; J1642; J2405; J2506; J3480; J8540; J9045; J9271; J9305; P9016; P9073; Q0163; Q5111

== ENCOUNTER 2024-02-07 02:46 | Inpatient (IN) | payer MEDICAID, SELFPAY ==
[2024-02-07] VITALS (28 sets, daily range): BP systolic 105–181; BP diastolic 73–146; PULSE 78–145; RESP 15–31; TEMP 35.6–36.8; O2SAT 80–99; BMI 36.6
--- NOTE | ~2024-02-07 | XR_ITS ---
EXAMINATION: XR CHEST CLINICAL INFORMATION: Worsening shortness on breath COMPARISON: February 07, 2024 TECHNIQUE: Frontal view of the chest was obtained. FINDINGS: Prominence of the interstitial lung markings with indistinct margins. Opacities in the lower hemithorax is, bilaterally with a meniscal shaped Cardiomediastinal silhouette size is normal. Calcified plaque aortic arch. No pneumothorax. Metallic plate lower cervical spine. Multilevel thoracic spondylosis. XR/XR chest 1V IMPRESSION: Pulmonary edema and bilateral pleural effusions slightly worsened since prior exam. Electronically signed by: Augusto Angeles MD 02/10/2024 07:32 AM EDT
--- NOTE | ~2024-02-07 | XR_ITS ---
EXAMINATION: XR CHEST CLINICAL INFORMATION: Acute dyspnea COMPARISON: Chest radiograph 01/31/2024 CT chest 01/23/2024. TECHNIQUE: Frontal view of the chest was obtained. FINDINGS: Lower cervical anterior plate and screw internal fixation hardware is again noted. The cardiac silhouette is grossly normal in size. A moderate left pleural effusion is again noted. Mild blunting of the right costophrenic sulcus is visualized. Left upper lobe nearly confluent findings medium pulmonary reticular opacities are present in increased compared with 01/31/2024 1:40 PM. Right upper lung zone pulmonary chain sutures are noted along with attenuation of the right upper lung zone pulmonary parenchyma. XR/XR chest 1V IMPRESSION: *Left upper pulmonary lobe nearly confluent reticular opacities which may represent infection. Findings are new compared to 01/31/2024. *Moderate left pleural effusion and small right pleural effusion unchanged compared with 01/31/2024. Electronically signed by: Daniel Betancourt MD 02/07/2024 04:49 AM EDT
--- NOTE | 2024-02-07 02:52 | ECG_ITS ---
Test Reason : DYSPNEA Blood Pressure : / mmHG Vent. Rate : 136 BPM Atrial Rate : 000 BPM P-R Int : 000 ms QRS Dur : 066 ms QT Int : 282 ms P-R-T Axes : 000 037 050 degrees QTc Int : 424 ms Atrial fibrillation with rapid ventricular response with premature ventricular or aberrantly conducted complexes Low voltage QRS Nonspecific ST abnormality Abnormal ECG When compared with ECG of 31-JAN-2024 13:21, No significant change was found Referred By: Stephanie Somers Electronically Signed By:KALIE GAMA
--- NOTE | 2024-02-07 02:57 | ED_ITS ---
HPI - SOB/Dyspnea General Chief Complaint: Dyspnea Stated Complaint: RESPIRATORY DISTRESS Source: patient, EMS and old records reviewed Mode of arrival: EMS Limitations: other (resp distress) History of Present Illness ED Provider: KAVIN COLLINS Narrative: 63 yo female with PMH of non small cell lung cancer s/p LITA and RUL resection with mets on palliative chemotherapy, breast cancer, depression, hep C, HTN, COPD with chronic resp failure on 3L home O2, afib on eliquis, opiate dependence who comes in resp distress. The patient and EMS cannot provide much history - EMS states they were called for diff breathing and was giving duoneb with little relief. They put patient on NRB and duoneb and EMS notes they couldn't get a BP. Patient notes she has been ill for 1 day. She denies fevers. That is all the history provided. Patient then tried to remove the bipap we placed. MD elicited complaint: shortness of breath Pertinent past history: COPD and congestive heart failure Onset (ago): day(s) (1) Timing: progressively worsening Severity: moderate Exacerbating factors: coughing Relieving factors: oxygen, rest, bronchodilators and upright position Known history of: COPD and congestive heart failure Associated symptoms: cough and sputum production Treatment prior to arrival: oxygen and bronchodilator Related Data Home Medications ?Medication ?Instructions ?Recorded ?Confirmed milnacipran 50 mg tablet (Savella) 50 mg PO BID 01/18/22 01/31/24 omeprazole 20 mg capsule,delayed 20 mg PO DAILY@0630 01/18/22 01/31/24 release paroxetine HCl 20 mg tablet 40 mg PO BID 01/18/22 01/31/24 simvastatin 20 mg tablet 20 mg PO BEDTIME 02/17/22 01/31/24 albuterol sulfate 90 mcg/actuation 2 puff inhalation Q6H PRN sob 06/22/23 01/31/24 aerosol inhaler (Ventolin HFA) buprenorphine 2 mg-naloxone 0.5 mg 1 film sublingual DAILY 07/09/23 01/31/24 sublingual film (Suboxone) docusate sodium 100 mg capsule 100 mg PO BEDTIME PRN stool 07/09/23 01/31/24 softener umeclidinium 62.5 mcg-vilanterol 1 inh inhalation DAILY 07/09/23 01/31/24 25 mcg/actuation powdr for inhalation (Anoro Ellipta) ipratropium 0.5 mg-albuterol 3 mg 3 ml inhalation Q6H PRN wheezing 10/18/23 01/31/24 (2.5 mg base)/3 mL nebulization soln acetaminophen 500 mg tablet 500 mg PO DAILY PRN Pain 11/03/23 01/31/24 furosemide 40 mg tablet 40 mg PO DAILY 01/19/24 01/31/24 nicotine 21 mg/24 hr daily 21 mg transdermal DAILY PRN 01/19/24 01/31/24 transdermal patch Smoking Cessation buprenorphine 2 mg-naloxone 0.5 mg 1 film sublingual DAILY PRN Pain 01/31/24 01/31/24 sublingual film (Suboxone) Previous Rx's ?Medication ?Instructions ?Recorded folic acid 1 mg tablet 1 mg PO DAILY #90 tabs 10/04/23 apixaban 5 mg tablet (Eliquis) 5 mg PO BID #60 tabs 12/09/23 theophylline 400 mg 400 mg PO DAILY #30 tabs 01/03/24 tablet,extended release 24 hr levothyroxine 25 mcg tablet 25 mcg PO DAILY@0600 01/10/24 (Synthroid) potassium chloride 20 mEq 20 meq PO DAILY #30 tabs 01/14/24 tablet,extended release (K-Tab) dextromethorphan-guaifenesin 30 1 tab PO BID #20 tabs 01/26/24 mg-600 mg tablet extended [id number] hr (Mucus DM) levofloxacin 750 mg tablet 750 mg PO DAILY #5 tabs 01/26/24 magnesium oxide 400 mg PO DAILY #90 tabs 01/26/24 prednisone 10 mg tablet See Taper PO DIRECTED #30 tabs 01/26/24 diltiazem HCl 240 mg 240 mg PO DAILY #30 caps 02/03/24 capsule,extended release 24 hr metoprolol succinate 50 mg 150 mg PO DAILY #45 tabs 02/03/24 tablet,extended release 24 hr cephalexin 500 mg capsule 500 mg PO Q8H #21 caps 02/04/24 Allergies Allergy/AdvReac Type Severity Reaction Status Date / Time lisinopril [LISINOPRIL] Allergy Severe SWELLING- Verified 02/07/24 02:58 ANGIOEDEMA codeine [CODEINE] Allergy Intermediate VOMITING/HIVES, Verified 02/07/24 02:58 vomiting, hives Review of Systems 2 Review of Systems: ROS unable to be obtained due to resp distress PMFSH Past Medical History Source: old records reviewed Medical History Lung cancer Pancytopenia New onset a-fib Cancer of upper lobe of left lung (~2020) Bilateral lung cancer Obesity History of hepatitis C Smoker Tubular adenoma of colon Pulmonary nodules History of breast cancer (~2006) Internal and external bleeding hemorrhoids Cancer of upper lobe of right lung (~2019) GERD (gastroesophageal reflux disease) Depression COPD (chronic obstructive pulmonary disease) HTN (hypertension) Surgical History History of lung surgery (~2020) History of anterior colporrhaphy (~2016) History of tubal ligation History of lumpectomy of right breast (~2006) History of colonoscopy (~2014) History of hemorrhoidectomy (~2019) History of back surgery (~2011) History of lobectomy of lung (~2019) Family History Family History Mother History of lung cancer Brother History of lung cancer Maternal Grandmother Breast cancer in female Maternal Aunt Breast cancer in female Daughter Thyroid cancer Social History Social History Household Members: Significant Other Household Members Other:: 2 Housing: Apartment Are you a primary grounds caretaker to a significant other at home: No Do you presently have visiting nurse or other home services: No Unable to assess alcohol history related to: Unable to respond Alcohol intake: never Comment: Refused all safety measures Patient Tobacco Use Status: Former Tobacco user Tobacco use type: Cigarette Cigarette Packs Per Day: 1 Cigarettes Per Day: 10 Years Smoked: 50 Second Hand Smoke Exposure: Yes Substance Use Type: Marijuana Advance Directives: Yes Advance Directives on File: Yes Advance Directives Date on File: 02/02/22 Do you have a plan to hurt others: No Plan service: No Current occupational status: disabled Current occupational exposures/hazards: No Physical Exam 2 Vital Signs: Vital Signs: Last Vital Signs Temp 98.2 F 02/07/24 03:08 Pulse 108 H 02/07/24 06:01 Resp 18 02/07/24 06:01 BP 123/94 H 02/07/24 06:01 Pulse Ox 96 02/07/24 06:07 O2 Del Method Nasal Cannula 02/07/24 06:07 O2 Flow Rate 3 02/07/24 06:07 FiO2 30 02/07/24 03:08 BMI result Body Mass Index 36.6 Appearance: Somnolent but answers questions and able to pull mask. Answers to verbal questioning. Oriented X2. Moderate acute distress. Eyes: Pupils equal, round and reactive to light. ENT: Pharynx normal. Neck: Normal inspection. Neck supple. CVS: irregular tachycardic heart rate and rhythm. Pulses normal. Respiratory: Moderate respiratory distress labored with retractions Breath sounds diminished with wheezes throughout, diminished L side Abdomen: Soft and nontender. Skin: Skin warm and clammy. pale skin color. Normal skin turgor. Extremities: No lower extremity edema. No calf ttp Neuro: Oriented X 2. No motor deficit. No sensory deficit. Course Course Course Narrative: patient is improving she states now that she has been sick since DC on 02/02 but much worse x 2 days with cough, not feeling well and difficulty breathing she tried to wait it out but she couldn't now oriented x 3 Reevaluation(s) Reevaluation #1: IV fentanyl for agitation given patient trying to take off bipap on arrival she has done well so far Reevaluation #2: BNP elevated IV lasix ordered Reevaluation #3: doing well wants to come off bipap will get VBG and reassess Additional Reevaluation(s): HR still up with dilt gtt, Cr normal - IV dig ordered VBG corrected off bipap 6am focused exam for sepsis performed at 7am doing well off bipap on her 3L NC 94% drinking water mentating, not labored 644am Medications Administered Generic Name Dose Route Start Last Admin Trade Name Freq PRN Reason Stop Dose Admin Diltiazem HCl 125 mg/ Sodium 125 mls @ 0 mls/hr 02/07/24 04:45 02/07/24 05:23 Chloride IVCONT 10 mg/hr .Q0M WALTER 10 mls/hr Titration Protocol Per Protocol Vancomycin HCl 2,000 mg in 500 mls @ 250 mls/hr 02/07/24 04:52 02/07/24 05:05 Vancomycin/Ns IV 02/07/24 06:51 250 mls/hr ONCE ONE Administration Discontinued Medications Generic Name Dose Route Start Last Admin Trade Name [place] PRN Reason Stop Dose Admin Ceftriaxone Sodium 1 gm 02/07/24 02:51 02/07/24 03:06 Ceftriaxone Sodium 1 Gm Vial IVPUSH 02/07/24 02:52 1 gm ONCE ONE Administration Levalbuterol HCl 1.25 mg/ 0 mg 02/07/24 03:11 02/07/24 03:16 Ipratropium [place] 0.5 mg INHALE 02/07/24 03:12 Not Given ONCE ONE Digoxin 0.25 mg 02/07/24 05:48 02/07/24 05:58 Digoxin 0.5 Mg/2 Ml Ampul IVPUSH 02/07/24 05:49 0.25 mg ONCE ONE Administration Protocol Diltiazem HCl 10 mg 02/07/24 02:59 02/07/24 03:06 Diltiazem Hcl 50 Mg/10 Ml Vial IVPUSH 02/07/24 03:00 10 mg STAT STA Administration Fentanyl 50 mcg 02/07/24 02:51 02/07/24 03:05 Fentanyl Citrate/Pf 100 Mcg/2 Ml Vial IVPUSH 02/07/24 02:52 50 mcg ONCE ONE Administration Protocol Furosemide 40 mg 02/07/24 03:32 02/07/24 03:44 Furosemide 40 Mg/4 Ml Vial IVPUSH 02/07/24 03:33 40 mg STAT STA Administration Protocol Sodium Chloride 250 mls @ 250 mls/hr 02/07/24 03:31 02/07/24 04:05 Ns IV 02/07/24 04:30 Infused .Q1H ONE Infusion Albumin Human 100 mls @ 133.333 mls/hr 02/07/24 04:00 02/07/24 05:33 Kedbumin 25 % IV 02/07/24 05:44 Infused Q1H WALTER Infusion Levalbuterol HCl 1.25 mg 02/07/24 03:11 02/07/24 03:16 Levalbuterol Hcl 1.25 Mg/3 Ml Vial.Neb INHALE 02/07/24 03:12 Not Given ONCE ONE Levalbuterol HCl 3.75 mg 02/07/24 03:11 02/07/24 03:15 Levalbuterol Hcl 1.25 Mg/3 Ml Vial.Neb INHALE 02/07/24 03:12 3.75 mg ONCE ONE Administration Methylprednisolone Sodium Succinate 60 mg 02/07/24 02:51 02/07/24 03:05 Methylprednisolone Sod Succ 125 Mg/2 Ml Vial IVPUSH 02/07/24 02:52 60 mg ONCE ONE Administration Ondansetron HCl 4 mg 02/07/24 02:51 02/07/24 03:05 Ondansetron Hcl 4 Mg/2 Ml Vial IVPUSH 02/07/24 02:52 4 mg ONCE ONE Administration Medical Decision Making Medical Decision Making MDM Narrative: 63 yo female with PMH of non small cell lung cancer s/p LITA and RUL resection with mets on palliative chemotherapy, breast cancer, depression, hep C, HTN, COPD with chronic resp failure on 3L home O2, afib on eliquis, opiate dependence here in resp distress not able to provide much history but able to protect airway and pull off bipap mask - at this time labs, cultures, empiric ceftriaxone, dilt given rapid afib, IV steroids as well. Anticipate IV lasix as well - CXR ordered. COPD, afib with RVR and CHF Differential Diagnosis Differential Diagnoses: The differential diagnosis associated with the presentation includes COPD, afib with RVR and CHF Admission/Observation Consideration of admission/observation: Escalation of care including admission/observation considered will need admission for afib with RVR, diuresis, abx Consult Healthcare Provider Management of the patient was discussed with: Hospitalist (Dr. Barrientos notified 6am for sign out) Lab Data [facility] Lab Attestation statement: I reviewed the patient's lab results. VBG improved off bipap 6am trop flat 02/07/24 02:52 02/07/24 02:52 Labs: Lab Results 02/07/24 02/07/24 02/07/24 Range/Units 02:52 02:57 03:13 WBC 15.0 H (4.8-10.8) X10*3/uL RBC 3.70 L (4.20-5.50) X10*6/uL Hgb 11.1 L (12.0-16.0) g/dl Hct 36.6 L (37.0-47.0) % MCV 98.9 H (80.0-98.0) fL MCH 30.0 (27.0-33.0) pg MCHC 30.3 L (31.0-35.0) g/dl RDW 15.5 (11.0-16.0) % Plt Count 184 D (160-400) X10*3/uL MPV 10.3 (9.4-12.3) fL Immature Gran % (Auto) 1.0 H (0.0-0.4) % Neut % (Auto) 59.5 (45-73) % Lymph % (Auto) 28.8 (20-40) % [place] % (Auto) 10.2 (2-11) % Eos % (Auto) 0.3 (0-4) % Baso % (Auto) 0.2 (0-2) % Lymph # (Auto) 4.3 (1.2-4.9) X10*3/uL [place] # (Auto) 1.5 H (0.1-1.2) X10*3/uL Eos # (Auto) 0.0 (0.0-0.4) X10*3/uL Baso # (Auto) 0.0 (0.0-0.2) X10*3/uL Abs Immat Gran (auto) 0.15 H (0.00-0.03) X10*3/uL Absolute Neuts (auto) 9.0 H (2.0-8.3) x10*3/uL Absolute Nucleated RBC 0.000 (0.0-0.012) X10*3/uL Nucleated RBC % (auto) 0.0 (0.0-0.2) /100WBC Smear Tech's Comments VERIFIED PT 10.5 L D (10.9-12.4) SEC INR 0.9 (0.9-1.1) VBG pH 7.26 L (7.32-7.43) VBG pCO2 59 mmHg VBG pO2 64 mmHg VBG HCO3 27 H (22-26) mmol/L VBG O2 Saturation 85.0 % VBG Base Excess -0.8 mmol/L Sodium 142 (135-145) mmol/L Potassium 4.8 D (3.3-5.1) mmol/L Chloride 103 (96-108) mmol/L Carbon Dioxide 22 (22-29) mmol/L Anion Gap 22 H (12-20) BUN 31 H (9-16) mg/dL Creatinine 1.23 (0.5-1.4) mg/dL Estim Creat Clear Calc 49.0 Estimated GFR 44 Random Glucose 199 H (60-115) mg/dL Lactic Acid 5.3 H* (0.5-2.0) mmol/L Lactic Acid F/U @ 2Hr (0.5-2.0) mmol/L Calcium 9.5 (8.4-10.2) mg/dL Magnesium 1.9 (1.6-2.6) mg/dL Total Bilirubin 0.3 (0.0-1.0) mg/dL Direct Bilirubin 0.1 (0.0-0.5) mg/dL AST 43 H (5-31) U/L ALT 39 H (0-31) U/L Alkaline Phosphatase 62 (39-117) U/L Troponin I High Sens 45.2 H (<3.5-17.0) ng/L C-Reactive Protein 2.47 H (< or = 0.50) mg/dL B-Natriuretic Peptide 1068 H (<100) pg/mL Total Protein 6.9 (6.5-8.0) g/dL Albumin 4.0 (3.5-5.0) g/dL Procalcitonin 0.03 ng/mL Influenza Type A (PCR) NEGATIVE (Negative) Influenza Type B (PCR) NEGATIVE (Negative) RSV RNA Qual (PCR) NEGATIVE (Negative) SARS-CoV-2 RNA (RT-PCR) NEGATIVE (Negative) 02/07/24 02/07/24 02/07/24 Range/Units 04:24 05:10 05:50 WBC (4.8-10.8) X10*3/uL RBC (4.20-5.50) X10*6/uL Hgb (12.0-16.0) g/dl Hct (37.0-47.0) % MCV (80.0-98.0) fL MCH (27.0-33.0) pg MCHC (31.0-35.0) g/dl RDW (11.0-16.0) % Plt Count (160-400) X10*3/uL MPV (9.4-12.3) fL Immature Gran % (Auto) (0.0-0.4) % Neut % (Auto) (45-73) % Lymph % (Auto) (20-40) % [place] % (Auto) (2-11) % Eos % (Auto) (0-4) % Baso % (Auto) (0-2) % Lymph # (Auto) (1.2-4.9) X10*3/uL [place] # (Auto) (0.1-1.2) X10*3/uL Eos # (Auto) (0.0-0.4) X10*3/uL Baso # (Auto) (0.0-0.2) X10*3/uL Abs Immat Gran (auto) (0.00-0.03) X10*3/uL Absolute Neuts (auto) (2.0-8.3) x10*3/uL Absolute Nucleated RBC (0.0-0.012) X10*3/uL Nucleated RBC % (auto) (0.0-0.2) /100WBC Smear Tech's Comments PT (10.9-12.4) SEC INR (0.9-1.1) VBG pH 7.26 L (7.32-7.43) VBG pCO2 72 mmHg VBG pO2 38 mmHg VBG HCO3 33 H (22-26) mmol/L VBG O2 Saturation 40.0 % VBG Base Excess 3.7 mmol/L Sodium (135-145) mmol/L Potassium (3.3-5.1) mmol/L Chloride (96-108) mmol/L Carbon Dioxide (22-29) mmol/L Anion Gap (12-20) BUN (9-16) mg/dL Creatinine (0.5-1.4) mg/dL Estim Creat Clear Calc Estimated GFR Random Glucose (60-115) mg/dL Lactic Acid (0.5-2.0) mmol/L Lactic Acid F/U @ 2Hr 1.9 (0.5-2.0) mmol/L Calcium (8.4-10.2) mg/dL Magnesium (1.6-2.6) mg/dL Total Bilirubin (0.0-1.0) mg/dL Direct Bilirubin (0.0-0.5) mg/dL AST (5-31) U/L ALT (0-31) U/L Alkaline Phosphatase (39-117) U/L Troponin I High Sens 49.7 H (<3.5-17.0) ng/L C-Reactive Protein (< or = 0.50) mg/dL B-Natriuretic Peptide (<100) pg/mL Total Protein (6.5-8.0) g/dL Albumin (3.5-5.0) g/dL Procalcitonin ng/mL Influenza Type A (PCR) (Negative) Influenza Type B (PCR) (Negative) RSV RNA Qual (PCR) (Negative) SARS-CoV-2 RNA (RT-PCR) (Negative) 02/07/24 Range/Units 05:57 WBC (4.8-10.8) X10*3/uL RBC (4.20-5.50) X10*6/uL Hgb (12.0-16.0) g/dl Hct (37.0-47.0) % MCV (80.0-98.0) fL MCH (27.0-33.0) pg MCHC (31.0-35.0) g/dl RDW (11.0-16.0) % Plt Count (160-400) X10*3/uL MPV (9.4-12.3) fL Immature Gran % (Auto) (0.0-0.4) % Neut % (Auto) (45-73) % Lymph % (Auto) (20-40) % [place] % (Auto) (2-11) % Eos % (Auto) (0-4) % Baso % (Auto) (0-2) % Lymph # (Auto) (1.2-4.9) X10*3/uL [place] # (Auto) (0.1-1.2) X10*3/uL Eos # (Auto) (0.0-0.4) X10*3/uL Baso # (Auto) (0.0-0.2) X10*3/uL Abs Immat Gran (auto) (0.00-0.03) X10*3/uL Absolute Neuts (auto) (2.0-8.3) x10*3/uL Absolute Nucleated RBC (0.0-0.012) X10*3/uL Nucleated RBC % (auto) (0.0-0.2) /100WBC Smear Tech's Comments PT (10.9-12.4) SEC INR (0.9-1.1) VBG pH 7.39 (7.32-7.43) VBG pCO2 55 mmHg VBG pO2 66 mmHg VBG HCO3 34 H (22-26) mmol/L VBG O2 Saturation 89.0 % VBG Base Excess 7.9 mmol/L Sodium (135-145) mmol/L Potassium (3.3-5.1) mmol/L Chloride (96-108) mmol/L Carbon Dioxide (22-29) mmol/L Anion Gap (12-20) BUN (9-16) mg/dL Creatinine (0.5-1.4) mg/dL Estim Creat Clear Calc Estimated GFR Random Glucose (60-115) mg/dL Lactic Acid (0.5-2.0) mmol/L Lactic Acid F/U @ 2Hr (0.5-2.0) mmol/L Calcium (8.4-10.2) mg/dL Magnesium (1.6-2.6) mg/dL Total Bilirubin (0.0-1.0) mg/dL Direct Bilirubin (0.0-0.5) mg/dL AST (5-31) U/L ALT (0-31) U/L Alkaline Phosphatase (39-117) U/L Troponin I High Sens (<3.5-17.0) ng/L C-Reactive Protein (< or = 0.50) mg/dL B-Natriuretic Peptide (<100) pg/mL Total Protein (6.5-8.0) g/dL Albumin (3.5-5.0) g/dL Procalcitonin ng/mL Influenza Type A (PCR) (Negative) Influenza Type B (PCR) (Negative) RSV RNA Qual (PCR) (Negative) SARS-CoV-2 RNA (RT-PCR) (Negative) Independent Interpretation I performed an independent interpretation of an: EKG and Plain X-Ray (worsening opacities) Interpretation: Rate: 136 Rhythm: afib with RVR [place]: normal Normal QRS complex. ST T wave : flat t waves lateral leads, no LESA, artifact noted qTC: 424 prior studies: in afib with RVR The study has been interpreted contemporaneously by me. . Radiology Impression Discussion of test interpretation with radiology: I have reviewed the radiologist's reading. Independent Historian Clinical information obtained from an independent historian. History obtained from or confirmed by: EMS External Record Review External record reviewed: Inpatient record and Outpatient record Critical Care Time Critical Care Time Critical Care Time: Yes Total Critical Care Time: 60 Attestation: NIPPV, repeat labs, review of records, IV dilt, admission I attest to this time spent taking care of the patient Discharge Plan Discharge Clinical Impression: Atrial fibrillation with rapid ventricular response, Acidosis, lactic COPD (chronic obstructive pulmonary disease) Qualifiers: COPD type: COPD with acute exacerbation Qualified Code(s): J44.1 - Chronic obstructive pulmonary disease with (acute) exacerbation Leukocytosis Qualifiers: Leukocytosis type: unspecified Qualified Code(s): D72.829 - Elevated white blood cell count, unspecified CHF (congestive heart failure) Qualifiers: Heart failure type: unspecified Heart failure chronicity: acute on chronic Q ualified Code(s): I50.9 - Heart failure, unspecified Pneumonia Qualifiers: Pneumonia type: due to unspecified organism Laterality: left Lung location: u pper lobe of lung Qualified Code(s): J18.9 - Pneumonia, unspecified organism Patient Disposition: Admitted As Inpatient Print Language: [place] Sepsis Bolus Exclusion Sepsis Bolus Exclusion CHF/Renal Failure This patient met severe sepsis criteria due to the following condition(s):: L actate>=4mmol/L In my clinical judgement the administration of 30 ml/kg of crystalloid would be detrimental to this patient due to the patient's following conditions:: Concern for fluid overload Replace the 30 mls/kg with (Zero amount not acceptable and all fluids for severe sepsis must be given at GREATER than 125 mls/hr) Crystalloids amount given in mls: (rate must be at least 150cc/hr): 250 Colloids amount given in mls:: 200
[2024-02-07 02:59] LABS: Venous Blood Gas Refer to POC result
[2024-02-07 03:02] LABS: VBG Base Excess -0.8 mmol/L; VBG HCO3 27 mmol/L (22-26); VBG pCO2 59 mmHg; VBG pH 7.26 (7.32-7.43); VBG pO2 64 mmHg
[2024-02-07] MEDS: fentaNYL citrate/PF 100 MCG/2 ML VIAL 50 MCG IVPUSH (03:05)
[2024-02-07] MEDS: methylPREDNISolone Sod Succ 125 MG/2 ML VIAL 60 MG IVPUSH (03:05)
[2024-02-07] MEDS: ondansetron HCL 4 MG/2 ML VIAL IVPUSH (03:05)
[2024-02-07 03:06] LABS: Basophils Percent Auto 0.2 % (0-2); Eosinophils Percent Auto 0.3 % (0-4); Hematocrit 36.6 % (37.0-47.0); Hemoglobin 11.1 g/dl (12.0-16.0); Imm Gran Abs Auto 0.15 X10*3/uL (0.00-0.03); Lymphocytes Absolute Auto 4.3 X10*3/uL (1.2-4.9); Lymphocytes Percent Auto 28.8 % (20-40); MANUAL DIFF FLAG SCAN; Mean Corpuscular HGB Conc 30.3 g/dl (31.0-35.0); Mean Corpuscular Volume 98.9 fL (80.0-98.0); Mean Platelet Volume 10.3 fL (9.4-12.3); Monocytes Absolute Auto 1.5 X10*3/uL (0.1-1.2); Monocytes Percent Auto 10.2 % (2-11); Neutrophils Percent Auto 59.5 % (45-73); Platelet Count 184 X10*3/uL (160-400); Red Cell Distribution Width 15.5 % (11.0-16.0); SCAN SMEAR FLAG 1
[2024-02-07] MEDS: dilTIAZem HCL 50 MG/10 ML VIAL 10 MG IVPUSH (03:06)
[2024-02-07] MEDS: cefTRIAXone sodium 1 GM VIAL IVPUSH (03:06)
[2024-02-07 03:12] LABS: INTERNATIONAL NORM RATIO 0.9 (0.9-1.1); Prothrombin Time 10.5 SEC (10.9-12.4)
[2024-02-07] MEDS: levalbuterol HCL 1.25 MG/3 ML VIAL.NEB 3.75 MG INHALE (03:15)
[2024-02-07 03:23] LABS: SLIDE REVIEW VERIFIED
[2024-02-07 03:25] LABS: B Type Natriuretic Peptide 1068 pg/mL (<100)
[2024-02-07 03:28] LABS: Troponin-I High Sensitivity 45.2 ng/L (<3.5-17.0)
[2024-02-07 03:29] LABS: Alanine Aminotransferase 39 U/L (0-31); Alkaline Phosphatase 62 U/L (39-117); Anion Gap 22 (12-20); Aspartate Amino Transferase 43 U/L (5-31); Bilirubin Direct 0.1 mg/dL (0.0-0.5); Bilirubin Total 0.3 mg/dL (0.0-1.0); Blood Urea Nitrogen 31 mg/dL (9-16); C Reactive Protein 2.47 mg/dL (< or = 0.50); Calcium 9.5 mg/dL (8.4-10.2); Carbon Dioxide 22 mmol/L (22-29); Chloride 103 mmol/L (96-108); Estimated Glomerular Filt Rate 44; Glucose Random 199 mg/dL (60-115); Magnesium 1.9 mg/dL (1.6-2.6); Potassium 4.8 mmol/L (3.3-5.1); Sodium 142 mmol/L (135-145); Total Protein 6.9 g/dL (6.5-8.0)
[2024-02-07 03:30] LABS: Lactic Acid 5.3 mmol/L (0.5-2.0)
[2024-02-07] MEDS: 0.9 % Sodium Chloride 250 ML IV (03:38)
[2024-02-07] MEDS: Albumin Human 25 % 100 ML 133.33 ML IV ×2 (03:41→04:48)
[2024-02-07] MEDS: Furosemide 40 MG/4 ML VIAL IVPUSH (03:44)
[2024-02-07 03:53] LABS: Influenza A PCR NEGATIVE (Negative); Influenza B PCR NEGATIVE (Negative); Resp Syncy Virus RNA Qual PCR NEGATIVE (Negative); SARS COV2 PCR INHOUSE NEGATIVE (Negative)
[2024-02-07 03:55] LABS: Procalcitonin 0.03 ng/mL
--- NOTE | 2024-02-07 03:55 | PC.NURSE ---
pt biba from home on ?nonrebreather via ems, placed on bipap on arrival by RT. [place] [facility] [place] and reports has been having some dyspnea since which worsened yesterday. pt is on 2L NC at baseline sats found to be in the 80s at home. on arrival pt found to be in rapid afib on monitor. iv established 18G bilat AC. meds given per jun. with dilt ivp heart rate to 100-110s dilt drip held at this time. bp as documented. labs and ekg obtained. critical lactic reported to MD and meds ordered per jun. ivf and albumin infusing. pt is tolerating bipap mask but reporting she would like it off soon, MD aware. lung sounds diminished/wheezing. plan of care ongoing.
[2024-02-07 04:25] LABS: Venous Blood Gas Refer to POC result
[2024-02-07 04:29] LABS: VBG Base Excess 3.7 mmol/L; VBG HCO3 33 mmol/L (22-26); VBG pCO2 72 mmHg; VBG pH 7.26 (7.32-7.43); VBG pO2 38 mmHg
[2024-02-07] MEDS: dilTIAZem HCL 125 MG in 0.9 % Sodium Chloride 100 ML 10 MG IVCONT (04:55)
[2024-02-07 05:01] LABS: Reflex Lactate? Lactic Acid Added
[2024-02-07] MEDS: vancomycin/NS 2,000 MG/500 ML PLAST..BAG 250 MG IV (05:05)
[2024-02-07 05:22] LABS: ~Lactic Acid-LAB USE ONLY 1.9 mmol/L (0.5-2.0)
--- NOTE | 2024-02-07 05:23 | PC.NURSE ---
per MD to keep dilt drip at 10mg/hour. heart rate ranging between 110-140s. MD aware.
--- NOTE | 2024-02-07 05:49 | PC.NURSE ---
MD made aware of heart rate ranging 120s-140s.
[2024-02-07 05:54] LABS: Venous Blood Gas Refer to POC result
[2024-02-07] MEDS: Digoxin 0.5 MG/2 ML AMPUL 0.25 MG IVPUSH (05:58)
[2024-02-07 06:02] LABS: VBG Base Excess 7.9 mmol/L; VBG HCO3 34 mmol/L (22-26); VBG pCO2 55 mmHg; VBG pH 7.39 (7.32-7.43); VBG pO2 66 mmHg
--- NOTE | 2024-02-07 06:03 | MHC.EDTECH ---
700ml of clear urine emptied from suction canister.
[2024-02-07 06:14] LABS: Troponin-I High Sensitivity 49.7 ng/L (<3.5-17.0)
--- NOTE | 2024-02-07 06:31 | MHC.EDTECH ---
400ml of urine emptied from canister
--- NOTE | 2024-02-07 06:38 | PC.NURSE ---
per bipap removed. pt placed on 3L NC which is baseline. sats 96%. pt requested water,given. call moya within reach.
--- NOTE | 2024-02-07 08:38 | PM.IMHP ---
History of Present Illness Date of Service: 02/07/24 Attending physician on admission: Surendra Card Chief Complaint: SOB, dyspnea Pt is a 63-year-old female with a past medical history significant for non small-cell lung cancer (s/p LITA/RUL lobectomies) with mets on palliative chemotherapy, breast cancer, depression, hepatitis-C, HTN, CHF (recent echo, EF 60-65%), COPD with chronic respiratory failure on 3 L O2 at home, AFib (on Eliquis, diltiazem and metoprolol), hypothyroid and chronic pain on Suboxone, who presented to the ED this morning due to worsening shortness of breath with exertion starting yesterday. She denies fever or cough. No lower extremity edema. No orthopnea. No recent sick contacts. She had 2 recent admissions, discharged on 01/28 after acute on chronic hypoxic respiratory failure due to pneumonia and COPD exacerbation, discharged with prednisone and levofloxacin, as well as most recently discharged on 02/02 for an admission for AFib with RVR. 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 Thoracic surgery consulted and suggested decortication, but anesthesia deemed the patient may need higher level of care for that surgery. Review of Systems Constitutional: Constitutional: Reports body ache(s), Reports fatigue and Denies headache(s) Eyes: Eyes: Denies change in vision ENT: Denies headache(s), Denies nasal congestion, Denies nasal discharge and Reports sore throat (Due to dry mouth) Cardiovascular: Cardiovascular: Denies chest pain, Denies leg edema and Reports dyspnea on exertion Respiratory: Respiratory: Reports dyspnea on exertion Gastrointestinal: Gastrointestinal: Denies constipation, Denies diarrhea, Denies nausea and Denies vomiting Genitourinary: Genitourinary: Denies dysuria Musculoskeletal: Musculoskeletal: Denies arthralgias Integumentary/Breasts: Skin/Breast: Denies rash Neurologic: Denies confusion and Denies headache(s) Psychiatric: Psychiatric: Denies confusion Endocrine: Endocrine: Reports fatigue [facility] Medical History Lung cancer Pancytopenia New onset a-fib Cancer of upper lobe of left lung (~2020) Bilateral lung cancer Obesity History of hepatitis C Smoker Tubular adenoma of colon Pulmonary nodules History of breast cancer (~2006) Internal and external bleeding hemorrhoids Cancer of upper lobe of right lung (~2019) GERD (gastroesophageal reflux disease) Depression COPD (chronic obstructive pulmonary disease) HTN (hypertension) Family History Mother History of lung cancer Brother History of lung cancer Maternal Grandmother Breast cancer in female Maternal Aunt Breast cancer in female Daughter Thyroid cancer Surgical History History of lung surgery (~2020) History of anterior colporrhaphy (~2016) History of tubal ligation History of lumpectomy of right breast (~2006) History of colonoscopy (~2014) History of hemorrhoidectomy (~2019) History of back surgery (~2011) History of lobectomy of lung (~2019) Social History Household Members: Significant Other Household Members Other:: 2 Housing: Apartment Are you a primary child care associate teacher to a significant other at home: No Do you presently have visiting nurse or other home services: No Unable to assess alcohol history related to: Unable to respond Alcohol intake: never Comment: Refused all safety measures Patient Tobacco Use Status: Former Tobacco user Tobacco use type: Cigarette Cigarette Packs Per Day: 1 Cigarettes Per Day: 10 Years Smoked: 50 Second Hand Smoke Exposure: Yes Substance Use Type: Marijuana Advance Directives: Yes Advance Directives on File: Yes Advance Directives Date on File: 02/02/22 Do you have a plan to hurt others: No Plan service: No Current occupational status: disabled Current occupational exposures/hazards: No Meds Allergies Allergy/AdvReac Type Severity Reaction Status Date / Time lisinopril [LISINOPRIL] Allergy Severe SWELLING- Verified 02/07/24 02:58 ANGIOEDEMA codeine [CODEINE] Allergy Intermediate VOMITING/HIVES, Verified 02/07/24 02:58 vomiting, hives Active Medications: Current Medications Diltiazem HCl 125 mg/ Sodium (Chloride) 125 mls @ 0 mls/hr IVCONT .Q0M WALTER; Protocol Last Titration: 10/28/24 05:23 Dose: 10 mg/hr, 10 mls/hr Home Medications ?Medication ?Instructions ?Recorded ?Confirmed ?Last Taken ?Type milnacipran 50 mg tablet (Savella) 50 mg PO BID 01/18/22 02/07/24 02/06/24 History omeprazole 20 mg capsule,delayed 20 mg PO DAILY@0630 01/18/22 02/07/24 02/06/24 History release paroxetine HCl 20 mg tablet 40 mg PO BID 01/18/22 02/07/24 02/06/24 History simvastatin 20 mg tablet 20 mg PO BEDTIME 02/17/22 02/07/24 02/06/24 History albuterol sulfate 90 mcg/actuation 2 puff inhalation Q6H PRN sob 06/22/23 02/07/24 02/06/24 History aerosol inhaler (Ventolin HFA) buprenorphine 2 mg-naloxone 0.5 mg 1 film sublingual DAILY 07/09/23 02/07/24 02/06/24 History sublingual film (Suboxone) docusate sodium 100 mg capsule 100 mg PO BEDTIME PRN stool 07/09/23 02/07/24 02/06/24 History softener umeclidinium 62.5 mcg-vilanterol 1 inh inhalation DAILY 07/09/23 02/07/24 02/06/24 History 25 mcg/actuation powdr for inhalation (Anoro Ellipta) ipratropium 0.5 mg-albuterol 3 mg 3 ml inhalation Q6H PRN wheezing 10/18/23 02/07/24 02/06/24 History (2.5 mg base)/3 mL nebulization soln acetaminophen 500 mg tablet 500 mg PO DAILY PRN Pain 11/03/23 02/07/24 02/06/24 History furosemide 40 mg tablet 40 mg PO DAILY 01/19/24 02/07/24 02/06/24 History nicotine 21 mg/24 hr daily 21 mg transdermal DAILY PRN 01/19/24 02/07/24 02/06/24 History transdermal patch Smoking Cessation buprenorphine 2 mg-naloxone 0.5 mg 1 film sublingual DAILY PRN Pain 01/31/24 02/07/24 02/06/24 History sublingual film (Suboxone) Physical Exam Vital Signs and Narrative: Vital Signs: Last Vital Signs Temp 97.9 F 02/07/24 07:16 Pulse 104 H 02/07/24 07:16 Resp 17 02/07/24 07:16 BP 126/89 02/07/24 07:16 Pulse Ox 97 02/07/24 07:16 O2 Del Method Nasal Cannula 02/07/24 07:16 O2 Flow Rate 3 02/07/24 07:16 FiO2 30 02/07/24 03:08 BMI result Body Mass Index 36.6 General: AOx3, drowsy but easily arousable, mild respiratory distress Resp: diminished throughout, mild wheezing throughout CVS: irregularly irregular GI: +BS, NT, no distention Skin: Warm, diaphoretic on back Extremities: No edema Psych: Appropriate affect Const: General: No confusion Orientation/consciousness: No confusion Neuro: General: No confusion Results Labs 02/07/24 02:52 02/07/24 02:52 Labs: Laboratory Results - last 24 hr 02/07/24 02/07/24 02/07/24 02:52 02:57 03:13 MCV 98.9 H MCH 30.0 MCHC 30.3 L RDW 15.5 Plt Count 184 D MPV 10.3 Immature Gran % (Auto) 1.0 H Neut % (Auto) 59.5 Lymph % (Auto) 28.8 [place] % (Auto) 10.2 Eos % (Auto) 0.3 Baso % (Auto) 0.2 Lymph # (Auto) 4.3 [place] # (Auto) 1.5 H Eos # (Auto) 0.0 Baso # (Auto) 0.0 Abs Immat Gran (auto) 0.15 H Absolute Neuts (auto) 9.0 H Absolute Nucleated RBC 0.000 Nucleated RBC % (auto) 0.0 Smear Tech's Comments VERIFIED PT 10.5 L D INR 0.9 VBG pH 7.26 L VBG pCO2 59 VBG pO2 64 VBG HCO3 27 H VBG O2 Saturation 85.0 VBG Base Excess -0.8 Anion Gap 22 H Estim Creat Clear Calc 49.0 Estimated GFR 44 Random Glucose 199 H Lactic Acid 5.3 H* Lactic Acid F/U @ 2Hr Calcium 9.5 Magnesium 1.9 Total Bilirubin 0.3 Direct Bilirubin 0.1 AST 43 H ALT 39 H Alkaline Phosphatase 62 Troponin I High Sens 45.2 H C-Reactive Protein 2.47 H B-Natriuretic Peptide 1068 H Total Protein 6.9 Albumin 4.0 Procalcitonin 0.03 Influenza Type A (PCR) NEGATIVE Influenza Type B (PCR) NEGATIVE RSV RNA Qual (PCR) NEGATIVE SARS-CoV-2 RNA (RT-PCR) NEGATIVE 02/07/24 02/07/24 02/07/24 04:24 05:10 05:50 MCV MCH MCHC RDW Plt Count MPV Immature Gran % (Auto) Neut % (Auto) Lymph % (Auto) [place] % (Auto) Eos % (Auto) Baso % (Auto) Lymph # (Auto) [place] # (Auto) Eos # (Auto) Baso # (Auto) Abs Immat Gran (auto) Absolute Neuts (auto) Absolute Nucleated RBC Nucleated RBC % (auto) Smear Tech's Comments PT INR VBG pH 7.26 L VBG pCO2 72 VBG pO2 38 VBG HCO3 33 H VBG O2 Saturation 40.0 VBG Base Excess 3.7 Anion Gap Estim Creat Clear Calc Estimated GFR Random Glucose Lactic Acid Lactic Acid F/U @ 2Hr 1.9 Calcium Magnesium Total Bilirubin Direct Bilirubin AST ALT Alkaline Phosphatase Troponin I High Sens 49.7 H C-Reactive Protein B-Natriuretic Peptide Total Protein Albumin Procalcitonin Influenza Type A (PCR) Influenza Type B (PCR) RSV RNA Qual (PCR) SARS-CoV-2 RNA (RT-PCR) 02/07/24 05:57 MCV MCH MCHC RDW Plt Count MPV Immature Gran % (Auto) Neut % (Auto) Lymph % (Auto) [place] % (Auto) Eos % (Auto) Baso % (Auto) Lymph # (Auto) [place] # (Auto) Eos # (Auto) Baso # (Auto) Abs Immat Gran (auto) Absolute Neuts (auto) Absolute Nucleated RBC Nucleated RBC % (auto) Smear Tech's Comments PT INR VBG pH 7.39 VBG pCO2 55 VBG pO2 66 VBG HCO3 34 H VBG O2 Saturation 89.0 VBG Base Excess 7.9 Anion Gap Estim Creat Clear Calc Estimated GFR Random Glucose Lactic Acid Lactic Acid F/U @ 2Hr Calcium Magnesium Total Bilirubin Direct Bilirubin AST ALT Alkaline Phosphatase Troponin I High Sens C-Reactive Protein B-Natriuretic Peptide Total Protein Albumin Procalcitonin Influenza Type A (PCR) Influenza Type B (PCR) RSV RNA Qual (PCR) SARS-CoV-2 RNA (RT-PCR) Imaging Radiologist's Impressions: Impressions Chest X-Ray 02/07/24 03:15 IMPRESSION: *Left upper pulmonary lobe nearly confluent reticular opacities which may represent infection. Findings are new compared to 01/31/2024. *Moderate left pleural effusion and small right pleural effusion unchanged compared with 01/31/2024. Electronically signed by: Daniel Betancourt MD 02/07/2024 04:49 AM EDT RP Assessment and Plan (1) Acute and chronic respiratory failure: Qualifiers: Respiratory failure complication: hypercapnia Qualified Code(s): J96.22 - Acute and chronic respiratory failure with hypercapnia Status: Acute (2) Pleural effusion, left: Status: Acute (3) Pneumonia: Qualifiers: Laterality: left Lung location: upper lobe of lung Pneumonia type: due to unspecified organism Qualified Code(s): J18.9 - Pneumonia, unspecified organism Status: Acute (4) Acute exacerbation of CHF (congestive heart failure): Qualifiers: Heart failure type: unspecified Qualified Code(s): I50.9 - Heart failure, unspecified Status: Acute (5) COPD with acute exacerbation: Status: Acute Plan Pt is a 63-year-old female with a past medical history significant for non small-cell lung cancer (s/p LITA/RUL lobectomies) with mets on palliative chemotherapy, breast cancer, depression, hepatitis C, HTN, HLD, CHF (recent echo, EF 60-65%), COPD with chronic respiratory failure on 3 L O2 at home, AFib on Eliquis, hypothyroid and chronic pain on Suboxone, who presented to the ED this morning due to worsening shortness of breath with exertion starting yesterday. VBG with acute on chronic hypercapnic respiratory failure with improvement with BiPAP, now back on baseline 3L O2. Also back in a fib on classroom monitor on diltiazem drip. acute on chronic hypercapnic respiratory failure due to COPD/CHF exacerbation- improved with BiPAP - elevated lactate likely due to respiratory failure - leukocyotsis on CBC, possible pneumonia and stable moderate L pleural effusion on CXR - given vancomycin and ceftriaxone in ED, recent nasal swab for MRSA negative, will switch to zosyn and azithromycin - pulmonary consult COPD exacerbation - mild wheezing on exam - continue methylprednisone 40mg BID and levalbuterol/ipratropium Q4H while awake CHF exacerbation - no LE edema - BNP 1068, will follow - continue furosemide 40mg IV BID - daily weights - low sodium diet - I+Os a fib with RVR - rate in the 100s - restart home diltiazem 240mg PO QD, metoprolol 150mg PO QD - discontinue diltiazem drip when HR reaches 90 - continue elimona - trop mildly increased without significant change on repeat HTN - restart diltiazem and metoprolol as above hypothyroid - continue levothyroxine HLD - continue simvastatin chronic pain - hold Suboxone for now as she was given fentanyl in ED Full code VTE prophylaxis: Sherita Patient with acute on chronic respiratory hypercapnic failure secondary to COPD/CHF exacerbation with multiple recent admissions secondary to failed outpatient treatment. She will require IV antibiotics and diuresis with monitoring for at least 2 midnights stay. Quality Stroke Does the patient have a stroke diagnosis?: No VTE Prior VTE?: No VTE Risk Level:: Medical - moderate - high VTE Device Contraindication: Treatment Not Indicated VTE Drug Contraindication: N/A - Med Ordered
--- NOTE | 2024-02-07 08:40 | PHA.MEDREC ---
Pharmacy Consult ? Medication Reconciliation Pharmacy has completed the medication reconciliation. Pt is a poor historian, she could not answer any question regarding her home medications other than when she last took her medications (yesterday). Called pt's daughter, who also could not answer any questions regarding her home medications, specifically asking if she started and how far along in her course was she for Prednisone and Levofloxacin that we recently prescribed on her recent admission (02/03/24). Called and left voicemail for pt's friend Richard. Utilized discharge packet from recent admission (02/03/24).
[2024-02-07] MEDS: levalbuterol HCL 1.25 MG, Ipratropium Bromide 0.5 MG INHALE ×2 (11:08→15:32)
[2024-02-07] MEDS: Levothyroxine Sodium 25 MCG TABLET PO (11:27)
[2024-02-07] MEDS: Metoprolol Succinate ER 50 MG TAB.ER.24H 150 MG PO (11:27)
[2024-02-07] MEDS: dilTIAZem HCL CD 240 MG CAP.ER.DEG PO (11:28)
[2024-02-07] MEDS: Apixaban 5 MG TABLET PO ×2 (11:28→20:14)
--- NOTE | 2024-02-07 12:53 | PC.NURSE ---
tele monitor observed for a full minute. Rate was very variable from mostly in the 90s with a brief spike to 120. PA Notified. Dilt drip paused per verbal order due to ratet mostly sustained in the 90s
[2024-02-07 14:38] LABS: Adenovirus PCR Not Detected (Not Detect.); Bordetella parapertussis PCR Not Detected (Not Detect.); Bordetella pertussis PCR Not Detected (Not Detect.); Chlamydia pneumoniae PCR Not Detected (Not Detect.); Coronavirus 229E PCR Not Detected (Not Detect.); Coronavirus HKU1 PCR Not Detected (Not Detect.); Coronavirus NL63 PCR Not Detected (Not Detect.); Coronavirus OC43 PCR Not Detected (Not Detect.); Human metapneumovirus PCR Not Detected (Not Detect.); Influenza A PCR Not Detected (Not Detect.); Influenza B PCR Not Detected (Not Detect.); Mycoplasma pneumoniae PCR Not Detected (Not Detect.); Parainfluenza 1 PCR Not Detected (Not Detect.); Parainfluenza 2 PCR Not Detected (Not Detect.); Parainfluenza 3 PCR Not Detected (Not Detect.); Parainfluenza 4 PCR Not Detected (Not Detect.); RSV PCR Not Detected (Not Detect.); Rhino/Enterovirus PCR Not Detected (Not Detect.)
--- NOTE | 2024-02-07 15:08 | MHC.CM.PN ---
Patient lives in an apartment with her Significant Other and she is functionally independent. Patient is active with [facility], [facility] for home O2, and Suboxone from [facility] in [place]. Home/resume said services is the goal and cM has initiated and will follow for dc planning. PCP is Dr. Daphne Rodriguez and Daughter/HCP/Makayla will transport.
[2024-02-07 15:12] LABS: SARS-CoV-2 PCR Not Detected (Not Detect.)
[2024-02-07] MEDS: Albuterol/Iprat 2.5/0.5MG 3 ML AMPUL.NEB INHALE (18:41)
[2024-02-07] MEDS: guaiFENesin DM 600/30 1 TAB TAB.ER.12H PO (20:14)
[2024-02-07] MEDS: [UNRECOGNIZED DRUG - OTHER] 50 EACH PO (20:14)
[2024-02-07] MEDS: PARoxetine HCL 40 MG TABLET PO (20:14)
[2024-02-07] MEDS: Atorvastatin Calcium 10 MG TABLET PO (20:14)
[2024-02-07] MEDS: methylPREDNISolone Sod Succ 40 MG/ML VIAL IVPUSH (20:15)
[2024-02-07] MEDS: 0.9 % Sodium Chloride Flush 3 ML SYRINGE IVFLUSH (20:17)
[2024-02-07] MEDS: Buprenorphine/Naloxone 2/0.5mg FILM 1 FILM SUBLINGUAL (20:27)
[2024-02-08] VITALS (10 sets, daily range): BP systolic 116–139; BP diastolic 76–102; PULSE 53–125; RESP 14–20; TEMP 35.4–37; O2SAT 92–100
[2024-02-08] MEDS: Omeprazole 20 MG CAPSULE.DR PO (06:05)
[2024-02-08] MEDS: Piperacillin Sodium/Tazobactam 4.5 GM in 0.9 % Sodium Chloride 100 ML IV ×4 (06:05→23:58)
[2024-02-08] MEDS: Levothyroxine Sodium 25 MCG TABLET PO (06:05)
[2024-02-08 07:01] LABS: Basophils Percent Auto 0.1 % (0-2); Hematocrit 32.6 % (37.0-47.0); Hemoglobin 10.3 g/dl (12.0-16.0); Imm Gran Abs Auto 0.11 X10*3/uL (0.00-0.03); Imm Gran Pct Auto 1.1 % (0.0-0.4); Lymphocytes Absolute Auto 0.4 X10*3/uL (1.2-4.9); Lymphocytes Percent Auto 4.5 % (20-40); MANUAL DIFF FLAG SCAN; Mean Corpuscular HGB Conc 31.6 g/dl (31.0-35.0); Mean Corpuscular Volume 98.2 fL (80.0-98.0); Mean Platelet Volume 10.6 fL (9.4-12.3); Monocytes Absolute Auto 0.3 X10*3/uL (0.1-1.2); Monocytes Percent Auto 2.6 % (2-11); Neutrophils Absolute Auto 8.8 x10*3/uL (2.0-8.3); Neutrophils Percent Auto 91.7 % (45-73); Platelet Count 142 X10*3/uL (160-400); Red Blood Count 3.32 X10*6/uL (4.20-5.50); Red Cell Distribution Width 15.7 % (11.0-16.0); SCAN SMEAR FLAG 1; White Blood Count 9.6 X10*3/uL (4.8-10.8)
[2024-02-08 07:20] LABS: SLIDE REVIEW VERIFIED
[2024-02-08 07:26] LABS: Anion Gap 18 (12-20); Blood Urea Nitrogen 41 mg/dL (9-16); Calcium 9.6 mg/dL (8.4-10.2); Carbon Dioxide 30 mmol/L (22-29); Chloride 98 mmol/L (96-108); Creatinine Clr Calc Pharmacy 48.6; Estimated Glomerular Filt Rate 44; Glucose Random 202 mg/dL (60-115); Potassium 4.9 mmol/L (3.3-5.1); Sodium 141 mmol/L (135-145)
[2024-02-08 07:32] LABS: B Type Natriuretic Peptide 723 pg/mL (<100)
[2024-02-08] MEDS: Albuterol/Iprat 2.5/0.5MG 3 ML AMPUL.NEB INHALE ×4 (07:48→20:03)
--- NOTE | 2024-02-08 08:39 | PM.CNPUL ---
History of Present Illness History of Present Illness Consult date: 02/08/24 Chief complaint: Acute on chronic resp failure with COPD/CHF exacer Narrative: This is an inpatient pulmonary consultation. The Pt is a 63-year-old female with a past medical history significant for non small-cell lung cancer (s/p LITA/RUL lobectomies) with mets on palliative chemotherapy, breast cancer, depression, hepatitis-C, HTN, CHF (recent echo, EF 60-65%), COPD with chronic respiratory failure on 3 L O2 at home, AFib (on Eliquis, diltiazem and metoprolol), hypothyroid and chronic pain on Suboxone, who presented to the ED this morning due to worsening shortness of breath with exertion starting yesterday. She denies fever or cough. No lower extremity edema. No orthopnea. No recent sick contacts. She had 2 recent admissions, discharged on 01/28 after acute on chronic hypoxic respiratory failure due to pneumonia and COPD exacerbation, discharged with prednisone and levofloxacin, as well as most recently discharged on 02/02 for an admission for AFib with RVR. 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 Thoracic surgery consulted and suggested decortication, but anesthesia deemed the patient may need higher level of care for that surgery. The patient is placed on Solu-Medrol minute the floor. She is in better. Her hypoxia and hypercapnia have both improved. The patient did have a respiratory viral panel that was all negative. Based on the fact that she has improved dramatically in 24 hours it is very suspicious that her reaction appears to be related to the immune therapy. I did go back to multiple CT scans demonstrating some ground glassy changes to the left hemithorax. She also has a pleural effusion. Review of Systems Constitutional: Constitutional: Reports body ache(s), Reports fatigue and Denies headache(s) Eyes: Eyes: Denies change in vision ENT: Denies headache(s), Denies nasal congestion, Denies nasal discharge and Reports sore throat (Due to dry mouth) Cardiovascular: Cardiovascular: Denies chest pain, Denies leg edema and Reports dyspnea on exertion Respiratory: Respiratory: Reports dyspnea on exertion Gastrointestinal: Gastrointestinal: Denies constipation, Denies diarrhea, Denies nausea and Denies vomiting Genitourinary: Genitourinary: Denies dysuria Musculoskeletal: Musculoskeletal: Denies arthralgias Integumentary/Breasts: Skin/Breast: Denies rash Neurologic: Denies confusion and Denies headache(s) Psychiatric: Psychiatric: Denies confusion Endocrine: Endocrine: Reports fatigue PMF Past Medical History Medical History (Updated 02/08/24 @ 08:43 by Kwesi Saravia MD) Pneumonitis Lung cancer Pancytopenia New onset a-fib Cancer of upper lobe of left lung (~2020) Bilateral lung cancer Obesity History of hepatitis C Smoker Tubular adenoma of colon Pulmonary nodules History of breast cancer (~2006) Internal and external bleeding hemorrhoids Cancer of upper lobe of right lung (~2019) GERD (gastroesophageal reflux disease) Depression COPD (chronic obstructive pulmonary disease) HTN (hypertension) Family History Family History Mother History of lung cancer Brother History of lung cancer Maternal Grandmother Breast cancer in female Maternal Aunt Breast cancer in female Daughter Thyroid cancer Surgical History Surgical History History of lung surgery (~2020) History of anterior colporrhaphy (~2016) History of tubal ligation History of lumpectomy of right breast (~2006) History of colonoscopy (~2014) History of hemorrhoidectomy (~2019) History of back surgery (~2011) History of lobectomy of lung (~2019) Social History Social History Household Members: Spouse Household Members Other:: 2 Housing: Apartment Are you a primary healthcare administration intern to a significant other at home: No Do you presently have visiting nurse or other home services: Yes ([facility]) Unable to assess alcohol history related to: Unable to respond Alcohol intake: never Comment: Refused all safety measures Patient Tobacco Use Status: Former Tobacco user Tobacco use type: Cigarette Cigarette Packs Per Day: 1 Cigarettes Per Day: 10 Years Smoked: 50 Smoked in Last 30 Days: No e-Cigarette/Vaping Use: Former Use Second Hand Smoke Exposure: Yes Use of substances other than those prescribed or required for medical reasons: Yes Substance Use Type: Marijuana Substance Use Frequency: Occasionally Last Used Substance: Unknown Currently Displaying Signs/Symptoms of Drug Intoxication Withdrawal: No Have you been hit, kicked, punched, or otherwise hurt by someone within the past year? If so, by whom?: No Do you feel safe in your current relationship?: Yes Is there a partner from a previous relationship who is making you feel unsafe now?: No Are you made to feel afraid or neglected: No Advance Directives: Yes Advance Directives on File: Yes Advance Directives Date on File: 02/02/22 Do you have a plan to hurt others: No Plan Recently lost weight without trying: No Eating poorly because of decreased appetite: No Nutrition Risks: No Nutritional Risk Patient : No : No Poor oral hygiene: No service: No Current occupational status: disabled Current occupational exposures/hazards: No Meds Allergies Allergy/AdvReac Type Severity Reaction Status Date / Time lisinopril [LISINOPRIL] Allergy Severe SWELLING- Verified 02/07/24 02:58 ANGIOEDEMA codeine [CODEINE] Allergy Intermediate VOMITING/HIVES, Verified 02/07/24 02:58 vomiting, hives Active Medications: Current Medications Acetaminophen (Acetaminophen 325 Mg Tablet) 650 mg PO Q6H PRN PRN Reason: Pain, Mild (Pain Scale 1-3), fever or headache Albuterol/Ipratropium (Albuterol/Iprat 2.5/0.5mg 3 Ml Ampul.Neb) 3 ml INHALE RQ4H WHILE AWAKE [facility] Last Admin: 02/08/24 07:48 Dose: 3 ml Apixaban (Apixaban 5 Mg Tablet) 5 mg PO BID [facility] Last Admin: 02/07/24 20:14 Dose: 5 mg Atorvastatin Calcium (Atorvastatin Calcium 10 Mg Tablet) 10 mg PO BEDTIME [facility] Last Admin: 02/07/24 20:14 Dose: 10 mg Buprenorphine/Naloxone (Buprenorphine/Naloxone 2/0.5mg Film) 1 film SUBLINGUAL DAILY [facility] Last Admin: 02/07/24 20:27 Dose: 1 film Calcium Carbonate (Calcium Carbonate 750 Mg Tab.Chew) 750 mg PO Q4H PRN PRN Reason: Heartburn Diltiazem HCl (Diltiazem Hcl Cd 240 Mg Cap.Er.Deg) 240 mg PO DAILY [facility]; Protocol Last Admin: 02/07/24 11:28 Dose: 240 mg Docusate Sodium (Docusate Sodium 100 Mg Capsule) 100 mg PO BEDTIME PRN PRN Reason: stool softener Folic Acid (Folic Acid 1 Mg Tablet) 1 mg PO DAILY [facility] Furosemide (Furosemide 40 Mg/4 Ml Vial) 40 mg IVPUSH DAILY [facility]; Protocol Guaifenesin/Dextromethorphan (Guaifenesin Dm 600/30 1 Tab Tab.Er.12h) 1 tab PO BID [facility] Last Admin: 02/07/24 20:14 Dose: 1 tab Azithromycin 500 mg/ Sodium (Chloride) 250 mls @ 125 mls/hr IV Q24H [facility] Piperacillin Sod/Tazobactam (Sod 4.5 gm/ Sodium Chloride) 100 mls @ 200 mls/hr IV Q6H [facility] Last Infusion: 02/08/24 06:26 Dose: Infused Levothyroxine Sodium (Levothyroxine Sodium 25 Mcg Tablet) 25 mcg PO DAILY@0600 [facility] Last Admin: 02/08/24 06:05 Dose: 25 mcg Magnesium Hydroxide (Milk Of Magnesia 30 Ml Oral.Susp) 30 ml PO DAILY PRN PRN Reason: Constipation Magnesium Oxide (Magnesium Oxide 400 Mg Tablet) 400 mg PO DAILY [facility] Melatonin (Melatonin 3 Mg Tablet) 6 mg PO BEDTIME PRN PRN Reason: Insomnia Methylprednisolone Sodium Succinate (Methylprednisolone Sod Succ 40 Mg/Ml Vial) 40 mg IVPUSH BID [facility] Last Admin: 02/07/24 20:15 Dose: 40 mg Metoprolol Succinate (Metoprolol Succinate Er 50 Mg Tab.Er.24h) 150 mg PO DAILY [facility]; Protocol Last Admin: 02/07/24 11:27 Dose: 150 mg Nicotine (Nicotine 21 Mg Patch.Td24) 21 mg TRANSDERMA DAILY PRN PRN Reason: Smoking Cessation Pat Own Med ( Milnacipran [Savella ] 50 Mg Tablet) 50 mg PO BID [facility] Last Admin: 02/07/24 20:14 Dose: 50 mg Omeprazole (Omeprazole 20 Mg Capsule.Dr) 20 mg PO DAILY@0630 [facility] Last Admin: 02/08/24 06:05 Dose: 20 mg Ondansetron HCl (Ondansetron Hcl 4 Mg/2 Ml Vial) 4 mg IVPUSH Q8H PRN PRN Reason: Nausea and Vomiting Paroxetine HCl (Paroxetine Hcl 40 Mg Tablet) 40 mg PO BID [facility] Last Admin: 02/07/24 20:14 Dose: 40 mg Potassium Chloride (Potassium Chloride Er 20 Meq Tab.Er.Prt) 20 meq PO DAILY [facility] Sodium Chloride (0.9 % Sodium Chloride Flush 3 Ml Syringe) 3 ml IVFLUSH QSHIFT [facility] Last Admin: 02/07/24 20:17 Dose: 3 ml Home Medications ?Medication ?Instructions ?Recorded ?Confirmed ?Last Taken ?Type milnacipran 50 mg tablet (Savella) 50 mg PO BID 01/18/22 02/07/24 02/06/24 History omeprazole 20 mg capsule,delayed 20 mg PO DAILY@0630 01/18/22 02/07/24 02/06/24 History release paroxetine HCl 20 mg tablet 40 mg PO BID 01/18/22 02/07/24 02/06/24 History simvastatin 20 mg tablet 20 mg PO BEDTIME 02/17/22 02/07/24 02/06/24 History albuterol sulfate 90 mcg/actuation 2 puff inhalation Q6H PRN sob 06/22/23 02/07/24 02/06/24 History aerosol inhaler (Ventolin HFA) buprenorphine 2 mg-naloxone 0.5 mg 1 film sublingual DAILY 07/09/23 02/07/24 02/06/24 History sublingual film (Suboxone) docusate sodium 100 mg capsule 100 mg PO BEDTIME PRN stool 07/09/23 02/07/24 02/06/24 History softener umeclidinium 62.5 mcg-vilanterol 1 inh inhalation DAILY 07/09/23 02/07/24 02/06/24 History 25 mcg/actuation powdr for inhalation (Anoro Ellipta) ipratropium 0.5 mg-albuterol 3 mg 3 ml inhalation Q6H PRN wheezing 10/18/23 02/07/24 02/06/24 History (2.5 mg base)/3 mL nebulization soln acetaminophen 500 mg tablet 500 mg PO DAILY PRN Pain 11/03/23 02/07/24 02/06/24 History furosemide 40 mg tablet 40 mg PO DAILY 01/19/24 02/07/24 02/06/24 History nicotine 21 mg/24 hr daily 21 mg transdermal DAILY PRN 01/19/24 02/07/24 02/06/24 History transdermal patch Smoking Cessation buprenorphine 2 mg-naloxone 0.5 mg 1 film sublingual DAILY PRN Pain 01/31/24 02/07/24 02/06/24 History sublingual film (Suboxone) Physical Exam Vital Signs: Vital Signs: Last Vital Signs Temp 98.3 F 02/08/24 07:27 Pulse 125 H 02/08/24 07:51 Resp 18 02/08/24 07:51 BP 135/96 H 02/08/24 07:27 Pulse Ox 94 02/08/24 07:27 O2 Del Method Nasal Cannula 02/08/24 07:27 O2 Flow Rate 3 02/08/24 07:27 FiO2 30 02/07/24 03:08 BMI result Body Mass Index 36.6 Const: General: No confusion Nutritional Appearance: not obese Orientation/consciousness: No confusion HEENT: Head: Yes atraumatic Eyes: General: appearance normal, both eyes and all related structures Sclerae: sclerae normal EOM: EOMs intact bilaterally Neck: Neck: Yes supple Lymphatic: no lymphadenopathy noted Resp: Effort & Inspection: normal respiratory effort and no use of accessory muscles Auscultation: crackles (Left-sided) Cardio: Rate: tachycardic Rhythm: regular rhythm Heart sounds: no gallops, no murmurs and no rubs Skin: General skin exam: other ( warm) Neuro: General: No confusion Extrem: General: No clubbing, No cyanosis and Yes edema (1+ bilateral) Results Laboratory Findings 02/08/24 06:38 02/08/24 06:38 ABG, PT/INR, D-dimer: PT/INR, D-dimer PT 10.5 SEC (10.9-12.4) L D 02/07/24 02:52 INR 0.9 (0.9-1.1) 02/07/24 02:52 Abnormal lab findings: Abnormal Labs 02/07/24 02/07/24 02/07/24 02:52 02:57 04:24 WBC 15.0 H RBC 3.70 L Hgb 11.1 L Hct 36.6 L MCV 98.9 H MCHC 30.3 L Plt Count Immature Gran % (Auto) 1.0 H Neut % (Auto) Lymph % (Auto) Lymph # (Auto) [place] # (Auto) 1.5 H Abs Immat Gran (auto) 0.15 H Absolute Neuts (auto) 9.0 H PT 10.5 L D VBG pH 7.26 L 7.26 L VBG HCO3 27 H 33 H Carbon Dioxide Anion Gap 22 H BUN 31 H Random Glucose 199 H Lactic Acid 5.3 H* AST 43 H ALT 39 H Troponin I High Sens 45.2 H C-Reactive Protein 2.47 H B-Natriuretic Peptide 1068 H 02/07/24 02/07/24 02/08/24 05:50 05:57 06:38 WBC RBC 3.32 L Hgb 10.3 L Hct 32.6 L MCV 98.2 H MCHC Plt Count 142 L Immature Gran % (Auto) 1.1 H Neut % (Auto) 91.7 H Lymph % (Auto) 4.5 L Lymph # (Auto) 0.4 L [place] # (Auto) Abs Immat Gran (auto) 0.11 H Absolute Neuts (auto) 8.8 H PT VBG pH VBG HCO3 34 H Carbon Dioxide 30 H Anion Gap BUN 41 H Random Glucose 202 H Lactic Acid AST ALT Troponin I High Sens 49.7 H C-Reactive Protein B-Natriuretic Peptide 723 H Microbiology: Microbiology 02/07/24 03:04 Blood - Venous Blood Culture - Preliminary No growth after 24 hours. 02/07/24 03:04 Blood - Venous Blood Culture - Preliminary No growth after 24 hours. Assessment and Plan (1) Acute and chronic respiratory failure: Qualifiers: Respiratory failure complication: hypercapnia Qualified Code(s): J96.22 - Acute and chronic respiratory failure with hypercapnia Status: Acute (2) Pneumonia: Qualifiers: Laterality: left Lung location: upper lobe of lung Pneumonia type: due to unspecified organism Qualified Code(s): J18.9 - Pneumonia, unspecified organism Status: Acute (3) Pneumonitis: Status: Acute (4) COPD with acute exacerbation: Status: Acute (5) Pleural effusion: Status: Acute Plan Suspect pneumonitis due to her use of PDL1 inhibitor continue solumedrol continue respiratory therapy continue oxygen suuplementation to keep pox >90% Procedures Date of Service Date of Service: 02/08/24
[2024-02-08] MEDS: Azithromycin 500 MG in 0.9 % Sodium Chloride 250 ML 125 MG IV (08:50)
[2024-02-08] MEDS: Furosemide 40 MG/4 ML VIAL IVPUSH (08:51)
[2024-02-08] MEDS: methylPREDNISolone Sod Succ 40 MG/ML VIAL IVPUSH ×2 (08:51→21:51)
[2024-02-08] MEDS: 0.9 % Sodium Chloride Flush 3 ML SYRINGE IVFLUSH ×2 (08:51→17:38)
[2024-02-08] MEDS: dilTIAZem HCL CD 240 MG CAP.ER.DEG PO (08:55)
[2024-02-08] MEDS: Metoprolol Succinate ER 50 MG TAB.ER.24H 150 MG PO (08:55)
[2024-02-08] MEDS: Magnesium Oxide 400 MG TABLET PO (08:55)
[2024-02-08] MEDS: PARoxetine HCL 40 MG TABLET PO ×2 (08:55→21:50)
[2024-02-08] MEDS: Apixaban 5 MG TABLET PO ×2 (08:55→21:49)
[2024-02-08] MEDS: guaiFENesin DM 600/30 1 TAB TAB.ER.12H PO ×2 (08:55→21:50)
[2024-02-08] MEDS: Folic Acid 1 MG TABLET PO (08:55)
[2024-02-08] MEDS: Potassium Chloride ER 20 MEQ TAB.ER.PRT PO (08:55)
[2024-02-08] MEDS: Buprenorphine/Naloxone 2/0.5mg FILM 1 FILM SUBLINGUAL (08:56)
[2024-02-08] MEDS: [UNRECOGNIZED DRUG - OTHER] 50 EACH PO ×2 (08:56→21:50)
--- NOTE | 2024-02-08 14:57 | P.PNIM_ITS ---
Subjective Subjective Date of Service: 02/09/24 Interval History: Feels better shortness of breath improved, denies cough, denies fever, no chills, tolerating diet, is on chronic 3 L of oxygen at home, symptoms resolved rapidly. Concerned about shortness of breath with activity . Review of Systems All other symptoms reviewed and negative Physical Exam 2 Vital Signs: Vital Signs: Last Vital Signs Temp 98.6 F 02/08/24 10:55 Pulse 93 02/08/24 11:18 Resp 17 02/08/24 11:18 BP 116/80 02/08/24 10:55 Pulse Ox 92 02/08/24 10:55 O2 Del Method Nasal Cannula 02/08/24 10:55 O2 Flow Rate 3 02/08/24 10:55 FiO2 30 02/07/24 03:08 BMI result Body Mass Index 36.6 Const: Other: Gen: in no acute distress sclera anicteric, moist mucus membranes Neck: supple, JVD present Lungs: diminished throughout, expiratory wheeze Heart: irregular, no murmurs Abd: soft, non-tender, non-distended Ext: no edema Skin: warm/well-perfused Neuro: alert and oriented x3, no focal findings Psych: appropriate affect Objective Data Active Medications Acetaminophen (Acetaminophen 325 Mg Tablet) 650 mg PO Q6H PRN PRN Reason: Pain, Mild (Pain Scale 1-3), fever or headache Albuterol/Ipratropium (Albuterol/Iprat 2.5/0.5mg 3 Ml Ampul.Neb) 3 ml INHALE RQ4H WHILE AWAKE [facility] Last Admin: 02/08/24 11:18 Dose: 3 ml Documented By: LIANG Apixaban (Apixaban 5 Mg Tablet) 5 mg PO BID [facility] Last Admin: 02/08/24 08:55 Dose: 5 mg Documented By: SELWYN Atorvastatin Calcium (Atorvastatin Calcium 10 Mg Tablet) 10 mg PO BEDTIME [facility] Last Admin: 02/07/24 20:14 Dose: 10 mg Documented By: CHARLIE Buprenorphine/Naloxone (Buprenorphine/Naloxone 2/0.5mg Film) 1 film SUBLINGUAL DAILY [facility] Last Admin: 02/08/24 08:56 Dose: 1 film Documented By: SELWYN Calcium Carbonate (Calcium Carbonate 750 Mg Tab.Chew) 750 mg PO Q4H PRN PRN Reason: Heartburn Diltiazem HCl (Diltiazem Hcl Cd 240 Mg Cap.Er.Deg) 240 mg PO DAILY [facility]; Protocol Last Admin: 02/08/24 08:55 Dose: 240 mg Documented By: SELWYN Docusate Sodium (Docusate Sodium 100 Mg Capsule) 100 mg PO BEDTIME PRN PRN Reason: stool softener Folic Acid (Folic Acid 1 Mg Tablet) 1 mg PO DAILY [facility] Last Admin: 02/08/24 08:55 Dose: 1 mg Documented By: SELWYN Furosemide (Furosemide 40 Mg/4 Ml Vial) 40 mg IVPUSH DAILY [facility]; Protocol Last Admin: 02/08/24 08:51 Dose: 40 mg Documented By: SELWYN Guaifenesin/Dextromethorphan (Guaifenesin Dm 600/30 1 Tab Tab.Er.12h) 1 tab PO BID [facility] Last Admin: 02/08/24 08:55 Dose: 1 tab Documented By: SELWYN Azithromycin 500 mg/ Sodium (Chloride) 250 mls @ 125 mls/hr IV Q24H [facility] Last Infusion: 02/08/24 10:50 Dose: Infused Documented By: SELWYN Piperacillin Sod/Tazobactam (Sod 4.5 gm/ Sodium Chloride) 100 mls @ 200 mls/hr IV Q6H [facility] Last Infusion: 02/08/24 12:53 Dose: Infused Documented By: SELWYN Levothyroxine Sodium (Levothyroxine Sodium 25 Mcg Tablet) 25 mcg PO DAILY@0600 [facility] Last Admin: 02/08/24 06:05 Dose: 25 mcg Documented By: CHARLIE Magnesium Hydroxide (Milk Of Magnesia 30 Ml Oral.Susp) 30 ml PO DAILY PRN PRN Reason: Constipation Magnesium Oxide (Magnesium Oxide 400 Mg Tablet) 400 mg PO DAILY [facility] Last Admin: 02/08/24 08:55 Dose: 400 mg Documented By: SELWYN Melatonin (Melatonin 3 Mg Tablet) 6 mg PO BEDTIME PRN PRN Reason: Insomnia Methylprednisolone Sodium Succinate (Methylprednisolone Sod Succ 40 Mg/Ml Vial) 40 mg IVPUSH BID [facility] Last Admin: 02/08/24 08:51 Dose: 40 mg Documented By: SELWYN Metoprolol Succinate (Metoprolol Succinate Er 50 Mg Tab.Er.24h) 150 mg PO DAILY [facility]; Protocol Last Admin: 02/08/24 08:55 Dose: 150 mg Documented By: SELWYN Nicotine (Nicotine 21 Mg Patch.Td24) 21 mg TRANSDERMA DAILY PRN PRN Reason: Smoking Cessation Pat Own Med ( Milnacipran [Savella ] 50 Mg Tablet) 50 mg PO BID [facility] Last Admin: 02/08/24 08:56 Dose: 50 mg Documented By: SELWYN Omeprazole (Omeprazole 20 Mg Capsule.Dr) 20 mg PO DAILY@0630 [facility] Last Admin: 02/08/24 06:05 Dose: 20 mg Documented By: CHARLIE Ondansetron HCl (Ondansetron Hcl 4 Mg/2 Ml Vial) 4 mg IVPUSH Q8H PRN PRN Reason: Nausea and Vomiting Paroxetine HCl (Paroxetine Hcl 40 Mg Tablet) 40 mg PO BID [facility] Last Admin: 02/08/24 08:55 Dose: 40 mg Documented By: SELWYN Potassium Chloride (Potassium Chloride Er 20 Meq Tab.Er.Prt) 20 meq PO DAILY [facility] Last Admin: 02/08/24 08:55 Dose: 20 meq Documented By: SELWYN Sodium Chloride (0.9 % Sodium Chloride Flush 3 Ml Syringe) 3 ml IVFLUSH QSHIFT [facility] Last Admin: 02/08/24 08:51 Dose: 3 ml Documented By: SELWYN Labs 02/08/24 06:38 02/08/24 06:38 Labs: Laboratory Results - last 24 hr 02/07/24 02/08/24 11:57 06:38 MCV 98.2 H MCH 31.0 MCHC 31.6 RDW 15.7 Plt Count 142 L MPV 10.6 Immature Gran % (Auto) 1.1 H Neut % (Auto) 91.7 H Lymph % (Auto) 4.5 L [place] % (Auto) 2.6 Eos % (Auto) 0.0 Baso % (Auto) 0.1 Lymph # (Auto) 0.4 L [place] # (Auto) 0.3 Eos # (Auto) 0.0 Baso # (Auto) 0.0 Abs Immat Gran (auto) 0.11 H Absolute Neuts (auto) 8.8 H Absolute Nucleated RBC 0.000 Nucleated RBC % (auto) 0.0 Smear Tech's Comments VERIFIED Anion Gap 18 Estim Creat Clear Calc 48.6 Estimated GFR 44 Random Glucose 202 H Calcium 9.6 B-Natriuretic Peptide 723 H Respiratory Panel [place] See Note Adenovirus (Rapid PCR) Not Detected B.pert (TEM-PCR) Not Detected B.parapertussis DNA PCR Not Detected C. pneumoniae DNA (PCR) Not Detected Coronavirus OC43 (PCR) Not Detected Coronavirus HKU1 (PCR) Not Detected Coronavirus 229E (PCR) Not Detected Coronavirus NL63 (PCR) Not Detected Human Metapneumovir PCR Not Detected Influenza A (RT-PCR) Not Detected Influenza B (RT-PCR) Not Detected M. pneumoniae (PCR) Not Detected Parainfluenza 1 (PCR) Not Detected Parainfluenza 2 (PCR) Not Detected Parainfluenza 3 (PCR) Not Detected Parainfluenza 4 (PCR) Not Detected RSV (PCR) Not Detected Entero/Rhino (PCR) Not Detected SARS-CoV-2 RNA (RT-PCR) Not Detected Microbiology Microbiology Results: Microbiology 02/07/24 03:04 Blood Culture - Preliminary Blood - Venous No growth after 24 hours. 02/07/24 03:04 Blood Culture - Preliminary Blood - Venous No growth after 24 hours. Assessment and Plan (1) Pneumonitis: Status: Acute (2) Acute and chronic respiratory failure: Status: Acute Plan 63-year-old female with a past medical history significant for non small-cell lung cancer (s/p LITA/RUL lobectomies) with mets on palliative chemotherapy, breast cancer, depression, hepatitis C, HTN, HLD, CHF (recent echo, EF 60-65%), COPD with chronic respiratory failure on 3 L O2 at home, AFib on Eliquis, hypothyroid and chronic pain on Suboxone, who presented to the ED this morning due to worsening shortness of breath with exertion starting yesterday. VBG with acute on chronic hypercapnic respiratory failure with improvement with BiPAP, now back on baseline 3L O2. Also back in a fib on night monitor on diltiazem drip. acute on chronic hypoxic / hypercapnic respiratory failure due to COPD/CHF exacerbation- improved with BiPAP - elevated lactate likely due to respiratory failure - WBC normalized, possible pneumonia and stable moderate L pleural effusion on CXR - given vancomycin and ceftriaxone in ED, recent nasal swab for MRSA negative, will switch to zosyn and azithromycin - pulmonary consult COPD exacerbation - mild wheezing on exam - continue methylprednisone 40mg BID and levalbuterol/ipratropium Q4H while awake CHF exacerbation - no LE edema - BNP 1068, will follow - continue furosemide 40mg IV daily - daily weights - low sodium diet - I+Os a fib with RVR - rate in the 100s - continue diltiazem 240mg PO QD, metoprolol 150mg PO QD - continue eliquis - trop mildly increased without significant change on repeat HTN - on diltiazem and metoprolol as above follow BP hypothyroid - continue levothyroxine HLD - continue simvastatin chronic pain - continue Suboxone Full code VTE prophylaxis: Sherita Patient with acute on chronic respiratory hypercapnic failure secondary to COPD/CHF exacerbation with multiple recent admissions secondary to failed outpatient treatment, will require continued inpatient hospitalization for close respiratory monitoring. Quality Stroke Does the patient have a stroke diagnosis?: No VTE Prior VTE?: No VTE Risk Level:: Medical - moderate - high VTE Device Contraindication: Treatment Not Indicated VTE Drug Contraindication: N/A - Med Ordered
[2024-02-08] MEDS: Atorvastatin Calcium 10 MG TABLET PO (21:50)
[2024-02-09] VITALS (9 sets, daily range): BP systolic 97–154; BP diastolic 77–95; PULSE 70–110; RESP 16–20; TEMP 36.1–36.6; O2SAT 95–98
[2024-02-09] MEDS: 0.9 % Sodium Chloride Flush 3 ML SYRINGE IVFLUSH ×4 (00:02→22:35)
[2024-02-09] MEDS: Levothyroxine Sodium 25 MCG TABLET PO (05:50)
[2024-02-09] MEDS: Omeprazole 20 MG CAPSULE.DR PO (05:50)
[2024-02-09] MEDS: Piperacillin Sodium/Tazobactam 4.5 GM in 0.9 % Sodium Chloride 100 ML IV ×2 (05:50→12:23)
[2024-02-09] MEDS: Albuterol/Iprat 2.5/0.5MG 3 ML AMPUL.NEB INHALE ×4 (06:03→19:58)
[2024-02-09] MEDS: Azithromycin 500 MG in 0.9 % Sodium Chloride 250 ML 125 MG IV (08:22)
[2024-02-09] MEDS: methylPREDNISolone Sod Succ 40 MG/ML VIAL IVPUSH ×2 (08:23→22:34)
[2024-02-09] MEDS: Furosemide 40 MG/4 ML VIAL IVPUSH (08:23)
[2024-02-09] MEDS: Apixaban 5 MG TABLET PO ×2 (09:33→22:34)
[2024-02-09] MEDS: Potassium Chloride ER 20 MEQ TAB.ER.PRT PO (09:33)
[2024-02-09] MEDS: Buprenorphine/Naloxone 2/0.5mg FILM 1 FILM SUBLINGUAL (09:33)
[2024-02-09] MEDS: Metoprolol Succinate ER 50 MG TAB.ER.24H 150 MG PO (09:33)
[2024-02-09] MEDS: PARoxetine HCL 40 MG TABLET PO ×2 (09:34→22:35)
[2024-02-09] MEDS: guaiFENesin DM 600/30 1 TAB TAB.ER.12H PO ×2 (09:34→22:35)
[2024-02-09] MEDS: Folic Acid 1 MG TABLET PO (09:34)
[2024-02-09] MEDS: dilTIAZem HCL CD 240 MG CAP.ER.DEG PO (09:34)
[2024-02-09] MEDS: Magnesium Oxide 400 MG TABLET PO (09:34)
[2024-02-09] MEDS: [UNRECOGNIZED DRUG - OTHER] 50 EACH PO ×2 (09:35→22:38)
[2024-02-09] MEDS: Acetaminophen 325 MG TABLET 650 MG PO ×2 (09:47→22:34)
--- NOTE | 2024-02-09 10:18 | MHC.CM.PN ---
EMR REVIEWED, PER HOSPITALIST PT NOT READY FOR DC, ANTIC PT WILL DC TOMORROW 02/09 W/[facility], [facility] REPORTING PT IS NO LONGER ACTIVE AND WILL NEED A NEW F2F, CM WILL CONTINUE TO FOLLOW.
--- NOTE | 2024-02-09 15:18 | P.PNIM_ITS ---
Subjective Subjective Date of Service: 02/09/24 Interval History: Feeling better, with ambulation felt lightheaded oxygenation remains stable on 4 L, feels not ready to be discharged home, is concerned about recurrent hospitalization with episodes of shortness of breath and hypoxia not responding to DuoNeb at home. Denies fever, no chills, no acute events overnight, tolerating diet. Review of Systems All other system reviewed and are negative. Physical Exam 2 Vital Signs: Vital Signs: Last Vital Signs Temp 97.1 F 02/09/24 15:02 Pulse 70 02/09/24 15:02 Resp 18 02/09/24 15:02 BP 111/77 02/09/24 15:02 Pulse Ox 96 02/09/24 15:02 O2 Del Method Nasal Cannula 02/09/24 15:02 O2 Flow Rate 3 02/09/24 15:02 FiO2 30 02/07/24 03:08 BMI result Body Mass Index 36.6 Const: Other: Gen: in no acute distress sclera anicteric, moist mucus membranes Neck: supple, JVD present Lungs: diminished throughout, expiratory wheeze Heart: irregular, no murmurs Abd: soft, non-tender, non-distended Ext: no edema Skin: warm/well-perfused Neuro: alert and oriented x3, no focal findings Psych: appropriate affect Objective Data Active Medications Acetaminophen (Acetaminophen 325 Mg Tablet) 650 mg PO Q6H PRN PRN Reason: Pain, Mild (Pain Scale 1-3), fever or headache Last Admin: 02/09/24 09:47 Dose: 650 mg Documented By: NAN Albuterol/Ipratropium (Albuterol/Iprat 2.5/0.5mg 3 Ml Ampul.Neb) 3 ml INHALE RQ4H WHILE AWAKE [facility] Last Admin: 02/09/24 11:14 Dose: 3 ml Documented By: LIANG Albuterol/Ipratropium (Albuterol/Iprat 2.5/0.5mg 3 Ml Ampul.Neb) 3 ml INHALE Q4H PRN PRN Reason: Wheezing Last Admin: 02/09/24 06:03 Dose: 3 ml Documented By: CHRISTOPHER Apixaban (Apixaban 5 Mg Tablet) 5 mg PO BID [facility] Last Admin: 02/09/24 09:33 Dose: 5 mg Documented By: NAN Atorvastatin Calcium (Atorvastatin Calcium 10 Mg Tablet) 10 mg PO BEDTIME [facility] Last Admin: 02/08/24 21:50 Dose: 10 mg Documented By: MOMO Buprenorphine/Naloxone (Buprenorphine/Naloxone 2/0.5mg Film) 1 film SUBLINGUAL DAILY [facility] Last Admin: 02/09/24 09:33 Dose: 1 film Documented By: NAN Calcium Carbonate (Calcium Carbonate 750 Mg Tab.Chew) 750 mg PO Q4H PRN PRN Reason: Heartburn Diltiazem HCl (Diltiazem Hcl Cd 240 Mg Cap.Er.Deg) 240 mg PO DAILY [facility]; Protocol Last Admin: 02/09/24 09:34 Dose: 240 mg Documented By: NAN Docusate Sodium (Docusate Sodium 100 Mg Capsule) 100 mg PO BEDTIME PRN PRN Reason: stool softener Folic Acid (Folic Acid 1 Mg Tablet) 1 mg PO DAILY [facility] Last Admin: 02/09/24 09:34 Dose: 1 mg Documented By: NAN Furosemide (Furosemide 40 Mg/4 Ml Vial) 40 mg IVPUSH DAILY [facility]; Protocol Last Admin: 02/09/24 08:23 Dose: 40 mg Documented By: KALPANA Guaifenesin/Dextromethorphan (Guaifenesin Dm 600/30 1 Tab Tab.Er.12h) 1 tab PO BID [facility] Last Admin: 02/09/24 09:34 Dose: 1 tab Documented By: NAN Azithromycin 500 mg/ Sodium (Chloride) 250 mls @ 125 mls/hr IV Q24H [facility] Last Infusion: 02/09/24 10:43 Dose: Infused Documented By: NAN Piperacillin Sod/Tazobactam (Sod 4.5 gm/ Sodium Chloride) 100 mls @ 200 mls/hr IV Q6H [facility] Last Infusion: 02/09/24 12:59 Dose: Infused Documented By: NAN Levothyroxine Sodium (Levothyroxine Sodium 25 Mcg Tablet) 25 mcg PO DAILY@0600 [facility] Last Admin: 02/09/24 05:50 Dose: 25 mcg Documented By: MOMO Magnesium Hydroxide (Milk Of Magnesia 30 Ml Oral.Susp) 30 ml PO DAILY PRN PRN Reason: Constipation Magnesium Oxide (Magnesium Oxide 400 Mg Tablet) 400 mg PO DAILY [facility] Last Admin: 02/09/24 09:34 Dose: 400 mg Documented By: NAN Melatonin (Melatonin 3 Mg Tablet) 6 mg PO BEDTIME PRN PRN Reason: Insomnia Methylprednisolone Sodium Succinate (Methylprednisolone Sod Succ 40 Mg/Ml Vial) 40 mg IVPUSH BID [facility] Last Admin: 02/09/24 08:23 Dose: 40 mg Documented By: KALPANA Metoprolol Succinate (Metoprolol Succinate Er 50 Mg Tab.Er.24h) 150 mg PO DAILY [facility]; Protocol Last Admin: 02/09/24 09:33 Dose: 150 mg Documented By: NAN Nicotine (Nicotine 21 Mg Patch.Td24) 21 mg TRANSDERMA DAILY PRN PRN Reason: Smoking Cessation Pat Own Med ( Milnacipran [Savella ] 50 Mg Tablet) 50 mg PO BID [facility] Last Admin: 02/09/24 09:35 Dose: 50 mg Documented By: NAN Omeprazole (Omeprazole 20 Mg Capsule.Dr) 20 mg PO DAILY@0630 [facility] Last Admin: 02/09/24 05:50 Dose: 20 mg Documented By: MOMO Ondansetron HCl (Ondansetron Hcl 4 Mg/2 Ml Vial) 4 mg IVPUSH Q8H PRN PRN Reason: Nausea and Vomiting Paroxetine HCl (Paroxetine Hcl 40 Mg Tablet) 40 mg PO BID [facility] Last Admin: 02/09/24 09:34 Dose: 40 mg Documented By: NAN Potassium Chloride (Potassium Chloride Er 20 Meq Tab.Er.Prt) 20 meq PO DAILY [facility] Last Admin: 02/09/24 09:33 Dose: 20 meq Documented By: NAN Sodium Chloride (0.9 % Sodium Chloride Flush 3 Ml Syringe) 3 ml IVFLUSH QSHIFT [facility] Last Admin: 02/09/24 08:23 Dose: 3 ml Documented By: KALPANA Labs 02/08/24 06:38 02/08/24 06:38 Microbiology Microbiology Results: Microbiology 02/07/24 03:04 Blood Culture - Preliminary Blood - Venous No growth after 48 hours. 02/07/24 03:04 Blood Culture - Preliminary Blood - Venous No growth after 48 hours. Assessment and Plan (1) Pneumonitis: Status: Acute (2) Acute and chronic respiratory failure: Status: Acute Plan 63-year-old female with a past medical history significant for non small-cell lung cancer (s/p LITA/RUL lobectomies) with mets on palliative chemotherapy, breast cancer, depression, hepatitis C, HTN, HLD, CHF (recent echo, EF 60-65%), COPD with chronic respiratory failure on 3 L O2 at home, AFib on Eliquis, hypothyroid and chronic pain on Suboxone, who presented to the ED this morning due to worsening shortness of breath with exertion starting yesterday. VBG with acute on chronic hypercapnic respiratory failure with improvement with BiPAP, now back on baseline 3L O2. 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 acute on chronic hypoxic / hypercapnic respiratory failure due to COPD/CHF exacerbation- improved with BiPAP - elevated lactate likely due to respiratory failure, normalized - WBC normalized, possible pneumonitis and stable moderate L pleural effusion on CXR - given vancomycin and ceftriaxone in ED, recent nasal swab for MRSA negative, will switch to po augmentin x 5 days. - seen by Dr. Saravia he will discuss with Dr. Samuels regarding PDL1 inhibitor causing pneumonitis. COPD exacerbation - mild wheezing on exam - on iv methylprednisone 40mg BID and levalbuterol/ipratropium Q4H while awake, will transition to by mouth prednisone 40 mg tapering dose starting tomorrow. CHF exacerbation - no LE edema - BNP 1068 on admission improved to 723, patient clinically stable will transition to by mouth Lasix 40mg home dose - daily weights, low sodium diet, I+Os a fib with RVR - rate in the 100s - continue diltiazem 240mg PO QD, metoprolol 150mg PO QD - continue eliquis - trop mildly increased without significant change on repeat HTN - stable blood pressure, on diltiazem and metoprolol as above hypothyroid - continue levothyroxine HLD - continue simvastatin chronic pain - continue Suboxone Full code VTE prophylaxis: Eliquis Patient with acute on chronic respiratory hypercapnic failure secondary to COPD/CHF exacerbation with multiple recent admissions secondary to failed outpatient treatment, will require continued inpatient hospitalization for close respiratory monitoring. Quality Stroke Does the patient have a stroke diagnosis?: No VTE Prior VTE?: No VTE Risk Level:: Medical - moderate - high VTE Device Contraindication: Treatment Not Indicated VTE Drug Contraindication: N/A - Med Ordered
[2024-02-09] MEDS: Amoxicillin/Potassium Clav 875 MG TABLET PO (17:51)
[2024-02-09] MEDS: Atorvastatin Calcium 10 MG TABLET PO (22:35)
[2024-02-09] MEDS: Docusate Sodium 100 MG CAPSULE PO (22:38)
[2024-02-10] VITALS (13 sets, daily range): BP systolic 134–166; BP diastolic 79–100; PULSE 68–120; RESP 18–22; TEMP 36.1–36.3; O2SAT 92–98; BMI 39.7
[2024-02-10] MEDS: Albuterol/Iprat 2.5/0.5MG 3 ML AMPUL.NEB INHALE ×5 (02:53→18:05)
[2024-02-10] MEDS: Morphine Sulfate 4 MG/ML CARTRIDGE 3 MG IVPUSH (03:13)
[2024-02-10] MEDS: Furosemide 100 MG/10 ML VIAL 60 MG IVPUSH (03:16)
[2024-02-10 06:37] LABS: Anion Gap 18 (12-20); Blood Urea Nitrogen 49 mg/dL (9-16); Calcium 9.6 mg/dL (8.4-10.2); Carbon Dioxide 33 mmol/L (22-29); Chloride 92 mmol/L (96-108); Creatinine Clr Calc Pharmacy 42.8; Estimated Glomerular Filt Rate 38; Glucose Random 274 mg/dL (60-115); Potassium 4.3 mmol/L (3.3-5.1); Sodium 139 mmol/L (135-145)
[2024-02-10] MEDS: Amoxicillin/Potassium Clav 875 MG TABLET PO ×2 (06:37→18:10)
[2024-02-10] MEDS: Omeprazole 20 MG CAPSULE.DR PO (06:37)
[2024-02-10] MEDS: Levothyroxine Sodium 25 MCG TABLET PO (06:38)
[2024-02-10] MEDS: methylPREDNISolone Sod Succ 40 MG/ML VIAL IVPUSH (08:01)
[2024-02-10] MEDS: Magnesium Oxide 400 MG TABLET PO (08:01)
[2024-02-10] MEDS: Metoprolol Succinate ER 50 MG TAB.ER.24H 150 MG PO (08:01)
[2024-02-10] MEDS: Furosemide 40 MG TABLET PO (08:02)
[2024-02-10] MEDS: Buprenorphine/Naloxone 2/0.5mg FILM 1 FILM SUBLINGUAL (08:02)
[2024-02-10] MEDS: Folic Acid 1 MG TABLET PO (08:02)
[2024-02-10] MEDS: PARoxetine HCL 40 MG TABLET PO ×2 (08:02→20:44)
[2024-02-10] MEDS: Apixaban 5 MG TABLET PO ×2 (08:02→20:45)
[2024-02-10] MEDS: Potassium Chloride ER 20 MEQ TAB.ER.PRT PO (08:02)
[2024-02-10] MEDS: dilTIAZem HCL CD 240 MG CAP.ER.DEG PO (08:02)
[2024-02-10] MEDS: 0.9 % Sodium Chloride Flush 3 ML SYRINGE IVFLUSH ×3 (08:03→20:46)
[2024-02-10] MEDS: [UNRECOGNIZED DRUG - OTHER] 50 EACH PO ×2 (08:18→20:47)
[2024-02-10] MEDS: guaiFENesin DM 600/30 1 TAB TAB.ER.12H PO ×2 (08:19→20:44)
--- NOTE | 2024-02-10 12:59 | HO.PM.IMPN ---
Subjective Subjective Date of Service: 02/10/24 Interval History: Seen and examined this morning Follow-up for COPD exacerbation Overnight patient became short of breath, repeat chest x-ray showing pulmonary edema, received 60 of IV Lasix with good urinary output Breathing improved this morning but patient worried about returning home Review of Systems Review of Systems: Yes all other systems are reviewed and are negative Constitutional Constitutional: Denies chills and Denies fever(s) Cardiovascular Cardiovascular: Denies chest pain Respiratory Respiratory: Reports cough Gastrointestinal Gastrointestinal: Denies abdominal pain Physical Exam Vital Signs: Vital Signs: Last Vital Signs Temp 97.0 F 02/10/24 11:06 Pulse 79 02/10/24 11:07 Resp 19 02/10/24 11:07 BP 160/98 H 02/10/24 11:06 Pulse Ox 97 02/10/24 11:06 O2 Del Method Nasal Cannula 02/10/24 11:06 O2 Flow Rate 4 02/10/24 11:06 FiO2 30 02/07/24 03:08 BMI result Body Mass Index 36.6 Const: General: cooperative, comfortable, no acute distress, alert and awake Nutritional Appearance: overweight Orientation/consciousness: patient oriented x3 Resp: Other: diminished lung sounds b/l no rales Effort & Inspection: normal respiratory effort, able to speak in complete sentences, no respiratory distress and no use of accessory muscles Cardio: Rate: regular rate GI: Inspection: No distended Palpation (GI): Soft to palpation and nontender Neuro: General: patient oriented x3, moves all extremities and CN's II-XI intact bilaterally Extrem: General: Yes no pedal edema Objective Data Active Medications Acetaminophen (Acetaminophen 325 Mg Tablet) 650 mg PO Q6H PRN PRN Reason: Pain, Mild (Pain Scale 1-3), fever or headache Last Admin: 02/09/24 22:34 Dose: 650 mg Documented By: VARINDER Albuterol/Ipratropium (Albuterol/Iprat 2.5/0.5mg 3 Ml Ampul.Neb) 3 ml INHALE RQ4H WHILE AWAKE [facility] Last Admin: 02/10/24 11:07 Dose: 3 ml Documented By: STEPHEN Albuterol/Ipratropium (Albuterol/Iprat 2.5/0.5mg 3 Ml Ampul.Neb) 3 ml INHALE Q4H PRN PRN Reason: Wheezing Last Admin: 02/10/24 02:53 Dose: 3 ml Documented By: RABIA Amoxicillin/Clavulanate Potassium (Amoxicillin/Potassium Clav 875 Mg Tablet) 875 mg PO Q12H [facility] Last Admin: 02/10/24 06:37 Dose: 875 mg Documented By: VARINDER Apixaban (Apixaban 5 Mg Tablet) 5 mg PO BID [facility] Last Admin: 02/10/24 08:02 Dose: 5 mg Documented By: ANASTASIIA Atorvastatin Calcium (Atorvastatin Calcium 10 Mg Tablet) 10 mg PO BEDTIME [facility] Last Admin: 02/09/24 22:35 Dose: 10 mg Documented By: VARINDER Buprenorphine/Naloxone (Buprenorphine/Naloxone 2/0.5mg Film) 1 film SUBLINGUAL DAILY [facility] Last Admin: 02/10/24 08:02 Dose: 1 film Documented By: ANASTASIIA Calcium Carbonate (Calcium Carbonate 750 Mg Tab.Chew) 750 mg PO Q4H PRN PRN Reason: Heartburn Diltiazem HCl (Diltiazem Hcl Cd 240 Mg Cap.Er.Deg) 240 mg PO DAILY [facility]; Protocol Last Admin: 02/10/24 08:02 Dose: 240 mg Documented By: ANASTASIIA Docusate Sodium (Docusate Sodium 100 Mg Capsule) 100 mg PO BEDTIME PRN PRN Reason: stool softener Last Admin: 02/09/24 22:38 Dose: 100 mg Documented By: VARINDER Folic Acid (Folic Acid 1 Mg Tablet) 1 mg PO DAILY [facility] Last Admin: 02/10/24 08:02 Dose: 1 mg Documented By: ANASTASIIA Furosemide (Furosemide 40 Mg Tablet) 40 mg PO DAILY [facility]; Protocol Last Admin: 02/10/24 08:02 Dose: 40 mg Documented By: ANASTASIIA Guaifenesin/Dextromethorphan (Guaifenesin Dm 600/30 1 Tab Tab.Er.12h) 1 tab PO BID [facility] Last Admin: 02/10/24 08:19 Dose: 1 tab Documented By: ANASTASIIA Levothyroxine Sodium (Levothyroxine Sodium 25 Mcg Tablet) 25 mcg PO DAILY@0600 [facility] Last Admin: 02/10/24 06:38 Dose: 25 mcg Documented By: VARINDER Magnesium Hydroxide (Milk Of Magnesia 30 Ml Oral.Susp) 30 ml PO DAILY PRN PRN Reason: Constipation Magnesium Oxide (Magnesium Oxide 400 Mg Tablet) 400 mg PO DAILY [facility] Last Admin: 02/10/24 08:01 Dose: 400 mg Documented By: ANASTASIIA Melatonin (Melatonin 3 Mg Tablet) 6 mg PO BEDTIME PRN PRN Reason: Insomnia Methylprednisolone Sodium Succinate (Methylprednisolone Sod Succ 40 Mg/Ml Vial) 40 mg IVPUSH BID [facility] Last Admin: 02/10/24 08:01 Dose: 40 mg Documented By: ANASTASIIA Metoprolol Succinate (Metoprolol Succinate Er 50 Mg Tab.Er.24h) 150 mg PO DAILY [facility]; Protocol Last Admin: 02/10/24 08:01 Dose: 150 mg Documented By: ANASTASIIA Nicotine (Nicotine 21 Mg Patch.Td24) 21 mg TRANSDERMA DAILY PRN PRN Reason: Smoking Cessation Pat Own Med ( Milnacipran [Savella ] 50 Mg Tablet) 50 mg PO BID [facility] Last Admin: 02/10/24 08:18 Dose: 50 mg Documented By: ANASTASIIA Omeprazole (Omeprazole 20 Mg Capsule.Dr) 20 mg PO DAILY@0630 [facility] Last Admin: 02/10/24 06:37 Dose: 20 mg Documented By: LAFLAMC Ondansetron HCl (Ondansetron Hcl 4 Mg/2 Ml Vial) 4 mg IVPUSH Q8H PRN PRN Reason: Nausea and Vomiting Paroxetine HCl (Paroxetine Hcl 40 Mg Tablet) 40 mg PO BID [facility] Last Admin: 02/10/24 08:02 Dose: 40 mg Documented By: ANASTASIIA Potassium Chloride (Potassium Chloride Er 20 Meq Tab.Er.Prt) 20 meq PO DAILY [facility] Last Admin: 02/10/24 08:02 Dose: 20 meq Documented By: ANASTASIIA Sodium Chloride (0.9 % Sodium Chloride Flush 3 Ml Syringe) 3 ml IVFLUSH QSHIFT [facility] Last Admin: 02/10/24 08:03 Dose: 3 ml Documented By: ANASTASIIA Labs 02/08/24 06:38 02/10/24 06:02 Labs: Laboratory Results - last 24 hr 02/10/24 06:02 Hold Purple Top SEE NOTE Anion Gap 18 Estim Creat Clear Calc 42.8 Estimated GFR 38 Random Glucose 274 H Calcium 9.6 Assessment and Plan (1) Pneumonitis: Status: Acute (2) Acute and chronic respiratory failure: Status: Acute Plan 63-year-old female with a past medical history significant for non small-cell lung cancer (s/p LITA/RUL lobectomies) with mets on palliative chemotherapy, breast cancer, depression, hepatitis C, HTN, HLD, CHF (recent echo, EF 60-65%), COPD with chronic respiratory failure on 3 L O2 at home, AFib on Eliquis, hypothyroid and chronic pain on Suboxone, who presented to the ED this morning due to worsening shortness of breath with exertion starting yesterday. VBG with acute on chronic hypercapnic respiratory failure with improvement with BiPAP, now back on baseline 3L O2. 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 acute on chronic hypoxic / hypercapnic respiratory failure due to COPD/CHF exacerbation- improved with BiPAP - elevated lactate likely due to respiratory failure, normalized - WBC normalized, possible pneumonitis and stable moderate L pleural effusion on CXR - given vancomycin and ceftriaxone in ED, recent nasal swab for MRSA negative, will switch to po augmentin x 5 days. - seen by Dr. Saravia he will discuss with Dr. Samuels regarding PDL1 inhibitor causing pneumonitis. COPD exacerbation - on iv methylprednisone 40mg BID and levalbuterol/ipratropium Q4H while awake, will transition to by mouth prednisone 40 mg tapering dose CHF exacerbation - no LE edema - BNP 1068 on admission improved to 723, patient clinically stable will transition to by mouth Lasix 40mg home dose but then sob overnight with increase in effusions on CHF and BNP; received 60 mg IV lasix with good effect continue home dose po lasix - daily weights, low sodium diet, I+Os Paroxysmal a fib with RVR - rate control - continue diltiazem 240mg PO QD, metoprolol 150mg PO QD - continue eliquis - trop mildly increased but flat HTN - stable blood pressure, on diltiazem and metoprolol as above hypothyroid - continue levothyroxine HLD - continue simvastatin chronic pain - continue Suboxone Full code VTE prophylaxis: Eliquis Patient with acute on chronic respiratory hypercapnic failure secondary to COPD/CHF exacerbation with multiple recent admissions secondary to failed outpatient treatment, will require continued inpatient hospitalization for close respiratory monitoring. Quality Stroke Does the patient have a stroke diagnosis?: No VTE Prior VTE?: No VTE Risk Level:: Medical - moderate - high VTE Device Contraindication: Treatment Not Indicated VTE Drug Contraindication: N/A - Med Ordered
[2024-02-10] MEDS: Atorvastatin Calcium 10 MG TABLET PO (20:44)
[2024-02-10] MEDS: Acetaminophen 325 MG TABLET 650 MG PO (20:45)
[2024-02-11] VITALS (9 sets, daily range): BP systolic 141–164; BP diastolic 93–100; PULSE 72–109; RESP 16–22; TEMP 36.1–36.6; O2SAT 92–100
[2024-02-11] MEDS: Amoxicillin/Potassium Clav 875 MG TABLET PO ×2 (06:15→17:39)
[2024-02-11] MEDS: Levothyroxine Sodium 25 MCG TABLET PO (06:16)
[2024-02-11] MEDS: Omeprazole 20 MG CAPSULE.DR PO (06:16)
[2024-02-11] MEDS: Acetaminophen 325 MG TABLET 650 MG PO (06:16)
[2024-02-11 06:55] LABS: Anion Gap 20 (12-20); Blood Urea Nitrogen 47 mg/dL (9-16); Calcium 10.1 mg/dL (8.4-10.2); Carbon Dioxide 33 mmol/L (22-29); Chloride 92 mmol/L (96-108); Estimated Glomerular Filt Rate 52; Glucose Random 166 mg/dL (60-115); Potassium 4.9 mmol/L (3.3-5.1); Sodium 140 mmol/L (135-145)
[2024-02-11] MEDS: Albuterol/Iprat 2.5/0.5MG 3 ML AMPUL.NEB INHALE ×4 (07:23→19:25)
[2024-02-11] MEDS: dilTIAZem HCL CD 240 MG CAP.ER.DEG PO (08:41)
[2024-02-11] MEDS: Apixaban 5 MG TABLET PO ×2 (08:41→20:37)
[2024-02-11] MEDS: guaiFENesin DM 600/30 1 TAB TAB.ER.12H PO ×2 (08:41→20:37)
[2024-02-11] MEDS: Folic Acid 1 MG TABLET PO (08:42)
[2024-02-11] MEDS: Furosemide 40 MG TABLET PO (08:42)
[2024-02-11] MEDS: Magnesium Oxide 400 MG TABLET PO (08:42)
[2024-02-11] MEDS: predniSONE 20 MG TABLET 40 MG PO (08:42)
[2024-02-11] MEDS: Metoprolol Succinate ER 50 MG TAB.ER.24H 150 MG PO (08:42)
[2024-02-11] MEDS: PARoxetine HCL 40 MG TABLET PO ×2 (08:42→20:37)
[2024-02-11] MEDS: Buprenorphine/Naloxone 2/0.5mg FILM 1 FILM SUBLINGUAL (08:43)
[2024-02-11] MEDS: 0.9 % Sodium Chloride Flush 3 ML SYRINGE IVFLUSH ×3 (08:46→20:38)
[2024-02-11] MEDS: Potassium Chloride ER 20 MEQ TAB.ER.PRT PO (08:49)
[2024-02-11] MEDS: [UNRECOGNIZED DRUG - OTHER] 50 EACH PO ×2 (08:50→20:37)
[2024-02-11] MEDS: Docusate Sodium 100 MG CAPSULE PO (09:16)
--- NOTE | 2024-02-11 12:47 | HO.PM.IMPN ---
Subjective Subjective Date of Service: 02/11/24 Interval History: Seen and examined this morning Follow-up for COPD exacerbation Slept better overnight, shortness and breath improving Review of Systems Review of Systems: Yes all other systems are reviewed and are negative Constitutional Constitutional: Denies chills and Reports fever(s) Cardiovascular Cardiovascular: Denies chest pain Gastrointestinal Gastrointestinal: Denies abdominal pain Physical Exam Vital Signs: Vital Signs: Last Vital Signs Temp 97.9 F 02/11/24 10:50 Pulse 85 02/11/24 11:31 Resp 18 02/11/24 11:31 BP 160/93 H 02/11/24 10:50 Pulse Ox 95 02/11/24 10:50 O2 Del Method Oxymask 02/11/24 10:50 O2 Flow Rate 3 02/11/24 10:50 FiO2 30 02/07/24 03:08 BMI result Body Mass Index 39.7 Const: General: cooperative, comfortable, no acute distress, alert and awake Nutritional Appearance: overweight Orientation/consciousness: patient oriented x3 Resp: Other: diminished lung sounds b/l no rales, air entry improving Effort & Inspection: normal respiratory effort, able to speak in complete sentences, no respiratory distress and no use of accessory muscles Cardio: Rate: regular rate GI: Inspection: No distended Palpation (GI): Soft to palpation and nontender Neuro: General: patient oriented x3, moves all extremities and CN's II-XI intact bilaterally Extrem: General: Yes no pedal edema Objective Data Active Medications Acetaminophen (Acetaminophen 325 Mg Tablet) 650 mg PO Q6H PRN PRN Reason: Pain, Mild (Pain Scale 1-3), fever or headache Last Admin: 02/11/24 06:16 Dose: 650 mg Documented By: BRYAN Albuterol/Ipratropium (Albuterol/Iprat 2.5/0.5mg 3 Ml Ampul.Neb) 3 ml INHALE RQ4H 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 Last Admin: 02/11/24 11:31 Dose: 3 ml Documented By: QUINN Albuterol/Ipratropium (Albuterol/Iprat 2.5/0.5mg 3 Ml Ampul.Neb) 3 ml INHALE Q4H PRN PRN Reason: Wheezing Last Admin: 02/10/24 02:53 Dose: 3 ml Documented By: RABIA Amoxicillin/Clavulanate Potassium (Amoxicillin/Potassium Clav 875 Mg Tablet) 875 mg PO Q12H [facility] Last Admin: 02/11/24 06:15 Dose: 875 mg Documented By: BRYAN Apixaban (Apixaban 5 Mg Tablet) 5 mg PO BID [facility] Last Admin: 02/11/24 08:41 Dose: 5 mg Documented By: ANASTASIIA Atorvastatin Calcium (Atorvastatin Calcium 10 Mg Tablet) 10 mg PO BEDTIME [facility] Last Admin: 02/10/24 20:44 Dose: 10 mg Documented By: VARINDER Buprenorphine/Naloxone (Buprenorphine/Naloxone 2/0.5mg Film) 1 film SUBLINGUAL DAILY [facility] Last Admin: 02/11/24 08:43 Dose: 1 film Documented By: ANASTASIIA Calcium Carbonate (Calcium Carbonate 750 Mg Tab.Chew) 750 mg PO Q4H PRN PRN Reason: Heartburn Diltiazem HCl (Diltiazem Hcl Cd 240 Mg Cap.Er.Deg) 240 mg PO DAILY [facility]; Protocol Last Admin: 02/11/24 08:41 Dose: 240 mg Documented By: ANASTASIIA Docusate Sodium (Docusate Sodium 100 Mg Capsule) 100 mg PO BEDTIME PRN PRN Reason: stool softener Last Admin: 02/11/24 09:16 Dose: 100 mg Documented By: ANASTASIIA Folic Acid (Folic Acid 1 Mg Tablet) 1 mg PO DAILY [facility] Last Admin: 02/11/24 08:42 Dose: 1 mg Documented By: ANASTASIIA Furosemide (Furosemide 40 Mg Tablet) 40 mg PO DAILY [facility]; Protocol Last Admin: 02/11/24 08:42 Dose: 40 mg Documented By: ANASTASIIA Guaifenesin/Dextromethorphan (Guaifenesin Dm 600/30 1 Tab Tab.Er.12h) 1 tab PO BID [facility] Last Admin: 02/11/24 08:41 Dose: 1 tab Documented By: ANASTASIIA Levothyroxine Sodium (Levothyroxine Sodium 25 Mcg Tablet) 25 mcg PO DAILY@0600 [facility] Last Admin: 02/11/24 06:16 Dose: 25 mcg Documented By: BRYAN Magnesium Hydroxide (Milk Of Magnesia 30 Ml Oral.Susp) 30 ml PO DAILY PRN PRN Reason: Constipation Magnesium Oxide (Magnesium Oxide 400 Mg Tablet) 400 mg PO DAILY [facility] Last Admin: 02/11/24 08:42 Dose: 400 mg Documented By: ANASTASIIA Melatonin (Melatonin 3 Mg Tablet) 6 mg PO BEDTIME PRN PRN Reason: Insomnia Metoprolol Succinate (Metoprolol Succinate Er 50 Mg Tab.Er.24h) 150 mg PO DAILY [facility]; Protocol Last Admin: 02/11/24 08:42 Dose: 150 mg Documented By: ANASTASIIA Nicotine (Nicotine 21 Mg Patch.Td24) 21 mg TRANSDERMA DAILY PRN PRN Reason: Smoking Cessation Pat Own Med ( Milnacipran [Savella ] 50 Mg Tablet) 50 mg PO BID [facility] Last Admin: 02/11/24 08:50 Dose: 50 mg Documented By: ANASTASIIA Omeprazole (Omeprazole 20 Mg Capsule.Dr) 20 mg PO DAILY@0630 [facility] Last Admin: 02/11/24 06:16 Dose: 20 mg Documented By: BRYAN Ondansetron HCl (Ondansetron Hcl 4 Mg/2 Ml Vial) 4 mg IVPUSH Q8H PRN PRN Reason: Nausea and Vomiting Paroxetine HCl (Paroxetine Hcl 40 Mg Tablet) 40 mg PO BID [facility] Last Admin: 02/11/24 08:42 Dose: 40 mg Documented By: ANASTASIIA Potassium Chloride (Potassium Chloride Er 20 Meq Tab.Er.Prt) 20 meq PO DAILY [facility] Last Admin: 02/11/24 08:49 Dose: 20 meq Documented By: ANASTASIIA Prednisone (Prednisone 20 Mg Tablet) 40 mg PO DAILY [facility] Last Admin: 02/11/24 08:42 Dose: 40 mg Documented By: ANASTASIIA Sodium Chloride (0.9 % Sodium Chloride Flush 3 Ml Syringe) 3 ml IVFLUSH QSHIFT [facility] Last Admin: 02/11/24 08:46 Dose: 3 ml Documented By: ANASTASIIA Labs 02/08/24 06:38 02/11/24 06:14 Labs: Laboratory Results - last 24 hr 02/11/24 06:14 Hold Purple Top SEE NOTE Anion Gap 20 Estim Creat Clear Calc 59.0 Estimated GFR 52 Random Glucose 166 H Calcium 10.1 Assessment and Plan (1) Pneumonitis: Status: Acute (2) Acute and chronic respiratory failure: Status: Acute Plan 63-year-old female with a past medical history significant for non small-cell lung cancer (s/p LITA/RUL lobectomies) with mets on palliative chemotherapy, breast cancer, depression, hepatitis C, HTN, HLD, CHF (recent echo, EF 60-65%), COPD with chronic respiratory failure on 3 L O2 at home, AFib on Eliquis, hypothyroid and chronic pain on Suboxone, who presented to the ED this morning due to worsening shortness of breath with exertion starting yesterday. VBG with acute on chronic hypercapnic respiratory failure with improvement with BiPAP, now back on baseline 3L O2. 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 acute on chronic hypoxic / hypercapnic respiratory failure due to COPD/CHF exacerbation- improved with BiPAP - elevated lactate likely due to respiratory failure, normalized - WBC normalized, possible pneumonitis and stable moderate L pleural effusion on CXR - given vancomycin and ceftriaxone in ED, recent nasal swab for MRSA negative, will switch to po augmentin x 5 days. - seen by Dr. Saravia he will discuss with Dr. Samuels regarding PDL1 inhibitor causing pneumonitis. COPD exacerbation - on iv methylprednisone 40mg BID and levalbuterol/ipratropium Q4H while awake, will transition to by mouth prednisone 40 mg tapering dose CHF exacerbation - no LE edema - BNP 1068 on admission improved to 723, patient clinically stable will transition to by mouth Lasix 40mg home dose but then sob overnight with increase in effusions on CHF and BNP; received 60 mg IV lasix with good effect now stable on home dose of lasix - daily weights, low sodium diet, I+Os Paroxysmal a fib with RVR - rate control - continue diltiazem 240mg PO QD, metoprolol 150mg PO QD - continue eliquis - trop mildly increased but flat HTN - stable blood pressure, on diltiazem and metoprolol as above hypothyroid - continue levothyroxine HLD - continue simvastatin chronic pain - continue Suboxone Full code VTE prophylaxis: Eliquis Patient with acute on chronic respiratory hypercapnic failure secondary to COPD/CHF exacerbation with multiple recent admissions secondary to failed outpatient treatment, will require continued inpatient hospitalization for close respiratory monitoring. Quality Stroke Does the patient have a stroke diagnosis?: No VTE Prior VTE?: No VTE Risk Level:: Medical - moderate - high VTE Device Contraindication: Treatment Not Indicated VTE Drug Contraindication: N/A - Med Ordered
--- NOTE | 2024-02-11 13:22 | MHC.CM.PN ---
Per MD rounds no discharge today. Patient continues with wheezing. Discharge is anticipated tomorrow. DP resume [facility]. Patient's dtr will provide transportation home.
[2024-02-11] MEDS: Atorvastatin Calcium 10 MG TABLET PO (20:37)
[2024-02-12] VITALS (12 sets, daily range): BP systolic 137–170; BP diastolic 92–114; PULSE 65–106; RESP 16–24; TEMP 35.9–36.5; O2SAT 90–98; BMI 40.0
[2024-02-12] MEDS: Amoxicillin/Potassium Clav 875 MG TABLET PO ×2 (05:43→17:23)
[2024-02-12] MEDS: Omeprazole 20 MG CAPSULE.DR PO (05:43)
[2024-02-12] MEDS: Levothyroxine Sodium 25 MCG TABLET PO (05:43)
[2024-02-12] MEDS: Metoprolol Succinate ER 50 MG TAB.ER.24H 150 MG PO (07:49)
[2024-02-12] MEDS: guaiFENesin DM 600/30 1 TAB TAB.ER.12H PO ×2 (07:49→19:23)
[2024-02-12] MEDS: Folic Acid 1 MG TABLET PO (07:49)
[2024-02-12] MEDS: PARoxetine HCL 40 MG TABLET PO ×2 (07:49→19:23)
[2024-02-12] MEDS: Potassium Chloride ER 20 MEQ TAB.ER.PRT PO (07:49)
[2024-02-12] MEDS: Magnesium Oxide 400 MG TABLET PO (07:49)
[2024-02-12] MEDS: Furosemide 40 MG TABLET PO (07:50)
[2024-02-12] MEDS: Apixaban 5 MG TABLET PO ×2 (07:50→19:23)
[2024-02-12] MEDS: Buprenorphine/Naloxone 2/0.5mg FILM 1 FILM SUBLINGUAL (07:50)
[2024-02-12] MEDS: dilTIAZem HCL CD 240 MG CAP.ER.DEG PO (07:50)
[2024-02-12] MEDS: predniSONE 20 MG TABLET 40 MG PO (07:50)
[2024-02-12] MEDS: 0.9 % Sodium Chloride Flush 3 ML SYRINGE IVFLUSH ×3 (07:51→19:25)
[2024-02-12] MEDS: [UNRECOGNIZED DRUG - OTHER] 50 EACH PO ×2 (08:01→19:24)
[2024-02-12] MEDS: Albuterol/Iprat 2.5/0.5MG 3 ML AMPUL.NEB INHALE ×4 (08:02→19:58)
[2024-02-12] MEDS: methylPREDNISolone Sod Succ 40 MG/ML VIAL IVPUSH (11:53)
--- NOTE | 2024-02-12 16:52 | HO.PM.IMPN ---
Subjective Subjective Date of Service: 02/12/24 Interval History: Seen and examined this morning Follow-up for COPD exacerbation No overnight events Persistent dyspnea with exertion but improving overall scared of going home Review of Systems Review of Systems: Yes all other systems are reviewed and are negative Constitutional Constitutional: Denies chills and Denies fever(s) Cardiovascular Cardiovascular: Denies chest pain and Denies palpitations Endocrine Endocrine: Denies palpitations Physical Exam Vital Signs: Vital Signs: Last Vital Signs Temp 97.4 F 02/12/24 16:00 Pulse 87 02/12/24 16:00 Resp 19 02/12/24 16:00 BP 140/95 H 02/12/24 16:00 Pulse Ox 97 02/12/24 16:00 O2 Del Method Nasal Cannula 02/12/24 16:00 O2 Flow Rate 2 02/12/24 16:00 FiO2 30 02/07/24 03:08 BMI result Body Mass Index 40.0 Const: General: cooperative, comfortable, no acute distress, alert and awake Nutritional Appearance: overweight Orientation/consciousness: patient oriented x3 Resp: Other: diminished lung sounds b/l no rales, air entry improving Effort & Inspection: normal respiratory effort, able to speak in complete sentences, no respiratory distress and no use of accessory muscles Cardio: Rate: regular rate GI: Inspection: No distended Palpation (GI): Soft to palpation and nontender Neuro: General: patient oriented x3, moves all extremities and CN's II-XI intact bilaterally Extrem: General: Yes no pedal edema Objective Data Active Medications Acetaminophen (Acetaminophen 325 Mg Tablet) 650 mg PO Q6H PRN PRN Reason: Pain, Mild (Pain Scale 1-3), fever or headache Last Admin: 02/11/24 06:16 Dose: 650 mg Documented By: BRYAN Albuterol/Ipratropium (Albuterol/Iprat 2.5/0.5mg 3 Ml Ampul.Neb) 3 ml INHALE RQ4H 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 Last Admin: 02/12/24 15:11 Dose: 3 ml Documented By: LIANG Albuterol/Ipratropium (Albuterol/Iprat 2.5/0.5mg 3 Ml Ampul.Neb) 3 ml INHALE Q4H PRN PRN Reason: Wheezing Last Admin: 02/10/24 02:53 Dose: 3 ml Documented By: RABIA Amoxicillin/Clavulanate Potassium (Amoxicillin/Potassium Clav 875 Mg Tablet) 875 mg PO Q12H [facility] Last Admin: 02/12/24 05:43 Dose: 875 mg Documented By: ANTCHANO Apixaban (Apixaban 5 Mg Tablet) 5 mg PO BID [facility] Last Admin: 02/12/24 07:50 Dose: 5 mg Documented By: KUSHAL Atorvastatin Calcium (Atorvastatin Calcium 10 Mg Tablet) 10 mg PO BEDTIME [facility] Last Admin: 02/11/24 20:37 Dose: 10 mg Documented By: ANTCHANO Buprenorphine/Naloxone (Buprenorphine/Naloxone 2/0.5mg Film) 1 film SUBLINGUAL DAILY [facility] Last Admin: 02/12/24 07:50 Dose: 1 film Documented By: KUSHAL Calcium Carbonate (Calcium Carbonate 750 Mg Tab.Chew) 750 mg PO Q4H PRN PRN Reason: Heartburn Diltiazem HCl (Diltiazem Hcl Cd 240 Mg Cap.Er.Deg) 240 mg PO DAILY [facility]; Protocol Last Admin: 02/12/24 07:50 Dose: 240 mg Documented By: KUSHAL Docusate Sodium (Docusate Sodium 100 Mg Capsule) 100 mg PO BEDTIME PRN PRN Reason: stool softener Last Admin: 02/11/24 09:16 Dose: 100 mg Documented By: ANASTASIIA Folic Acid (Folic Acid 1 Mg Tablet) 1 mg PO DAILY [facility] Last Admin: 02/12/24 07:49 Dose: 1 mg Documented By: KUSHAL Furosemide (Furosemide 40 Mg Tablet) 40 mg PO DAILY [facility]; Protocol Last Admin: 02/12/24 07:50 Dose: 40 mg Documented By: KUSHAL Guaifenesin/Dextromethorphan (Guaifenesin Dm 600/30 1 Tab Tab.Er.12h) 1 tab PO BID [facility] Last Admin: 02/12/24 07:49 Dose: 1 tab Documented By: KUSHAL Levothyroxine Sodium (Levothyroxine Sodium 25 Mcg Tablet) 25 mcg PO DAILY@0600 [facility] Last Admin: 02/12/24 05:43 Dose: 25 mcg Documented By: MARGARET Magnesium Hydroxide (Milk Of Magnesia 30 Ml Oral.Susp) 30 ml PO DAILY PRN PRN Reason: Constipation Magnesium Oxide (Magnesium Oxide 400 Mg Tablet) 400 mg PO DAILY [facility] Last Admin: 02/12/24 07:49 Dose: 400 mg Documented By: KUSHAL Melatonin (Melatonin 3 Mg Tablet) 6 mg PO BEDTIME PRN PRN Reason: Insomnia Metoprolol Succinate (Metoprolol Succinate Er 50 Mg Tab.Er.24h) 150 mg PO DAILY [facility]; Protocol Last Admin: 02/12/24 07:49 Dose: 150 mg Documented By: KUSHAL Nicotine (Nicotine 21 Mg Patch.Td24) 21 mg TRANSDERMA DAILY PRN PRN Reason: Smoking Cessation Pat Own Med ( Milnacipran [Savella ] 50 Mg Tablet) 50 mg PO BID [facility] Last Admin: 02/12/24 08:01 Dose: 50 mg Documented By: KUSHAL Omeprazole (Omeprazole 20 Mg Capsule.Dr) 20 mg PO DAILY@0630 [facility] Last Admin: 02/12/24 05:43 Dose: 20 mg Documented By: ANTOIC Ondansetron HCl (Ondansetron Hcl 4 Mg/2 Ml Vial) 4 mg IVPUSH Q8H PRN PRN Reason: Nausea and Vomiting Paroxetine HCl (Paroxetine Hcl 40 Mg Tablet) 40 mg PO BID [facility] Last Admin: 02/12/24 07:49 Dose: 40 mg Documented By: KUSHAL Potassium Chloride (Potassium Chloride Er 20 Meq Tab.Er.Prt) 20 meq PO DAILY [facility] Last Admin: 02/12/24 07:49 Dose: 20 meq Documented By: KUSHAL Prednisone (Prednisone 20 Mg Tablet) 40 mg PO DAILY [facility] Last Admin: 02/12/24 07:50 Dose: 40 mg Documented By: TERRENCEING Sodium Chloride (0.9 % Sodium Chloride Flush 3 Ml Syringe) 3 ml IVFLUSH QSHIFT [facility] Last Admin: 02/12/24 07:51 Dose: 3 ml Documented By: TERRENCEING Labs 02/08/24 06:38 02/11/24 06:14 Microbiology Microbiology Results: Microbiology 02/07/24 03:04 Blood Culture - Final Blood - Venous No growth after 5 days. 02/07/24 03:04 Blood Culture - Final Blood - Venous No growth after 5 days. Assessment and Plan (1) Pneumonitis: Status: Acute (2) Acute and chronic respiratory failure: Status: Acute Plan 63-year-old female with a past medical history significant for non small-cell lung cancer (s/p LITA/RUL lobectomies) with mets on palliative chemotherapy, breast cancer, depression, hepatitis C, HTN, HLD, CHF (recent echo, EF 60-65%), COPD with chronic respiratory failure on 3 L O2 at home, AFib on Eliquis, hypothyroid and chronic pain on Suboxone, who presented to the ED this morning due to worsening shortness of breath with exertion starting yesterday. VBG with acute on chronic hypercapnic respiratory failure with improvement with BiPAP, now back on baseline 3L O2. Also back in a fib on court monitor on diltiazem drip. acute on chronic hypoxic / hypercapnic respiratory failure due to COPD/CHF exacerbation- improved with BiPAP - elevated lactate likely due to respiratory failure, normalized - WBC normalized, possible pneumonitis and stable moderate L pleural effusion on CXR - given vancomycin and ceftriaxone in ED, recent nasal swab for MRSA negative, will switch to po augmentin x 5 days. - seen by Dr. Saravia he will discuss with Dr. Samuels regarding PDL1 inhibitor causing pneumonitis. COPD exacerbation - on iv methylprednisone 40mg BID and levalbuterol/ipratropium Q4H while awake, will transition to by mouth prednisone 40 mg tapering dose CHF exacerbation - no LE edema - BNP 1068 on admission improved to 723, patient clinically stable will transition to by mouth Lasix 40mg home dose but then sob overnight with increase in effusions on CHF and BNP; received 60 mg IV lasix with good effect now stable on home dose of lasix - daily weights, low sodium diet, I+Os Paroxysmal a fib with RVR - rate control - continue diltiazem 240mg PO QD, metoprolol 150mg PO QD - continue eliquis - trop mildly increased but flat HTN - stable blood pressure, on diltiazem and metoprolol as above hypothyroid - continue levothyroxine HLD - continue simvastatin chronic pain - continue Suboxone Full code VTE prophylaxis: Eliquis PT eval - pt refused. rec consideration for pulm rehab, pt refused. dispo - home in am with services. Patient with acute on chronic respiratory hypercapnic failure secondary to COPD/CHF exacerbation with multiple recent admissions secondary to failed outpatient treatment, will require continued inpatient hospitalization for close respiratory monitoring. Quality Stroke Does the patient have a stroke diagnosis?: No VTE Prior VTE?: No VTE Risk Level:: Medical - moderate - high VTE Device Contraindication: Treatment Not Indicated VTE Drug Contraindication: N/A - Med Ordered
[2024-02-12] MEDS: Atorvastatin Calcium 10 MG TABLET PO (19:24)
[2024-02-13] VITALS (8 sets, daily range): BP systolic 132–148; BP diastolic 74–105; PULSE 46–120; RESP 15–21; TEMP 34.8–36.9; O2SAT 93–99
[2024-02-13] MEDS: Levothyroxine Sodium 25 MCG TABLET PO (05:47)
[2024-02-13] MEDS: Omeprazole 20 MG CAPSULE.DR PO (05:47)
[2024-02-13] MEDS: Amoxicillin/Potassium Clav 875 MG TABLET PO (05:47)
[2024-02-13] MEDS: 0.9 % Sodium Chloride Flush 3 ML SYRINGE IVFLUSH (07:33)
[2024-02-13] MEDS: Potassium Chloride ER 20 MEQ TAB.ER.PRT PO (07:33)
[2024-02-13] MEDS: PARoxetine HCL 40 MG TABLET PO (07:33)
[2024-02-13] MEDS: Apixaban 5 MG TABLET PO (07:33)
[2024-02-13] MEDS: guaiFENesin DM 600/30 1 TAB TAB.ER.12H PO (07:34)
[2024-02-13] MEDS: Metoprolol Succinate ER 50 MG TAB.ER.24H 150 MG PO (07:34)
[2024-02-13] MEDS: Folic Acid 1 MG TABLET PO (07:34)
[2024-02-13] MEDS: dilTIAZem HCL CD 240 MG CAP.ER.DEG PO (07:34)
[2024-02-13] MEDS: Magnesium Oxide 400 MG TABLET PO (07:34)
[2024-02-13] MEDS: predniSONE 20 MG TABLET 40 MG PO (07:34)
[2024-02-13] MEDS: [UNRECOGNIZED DRUG - OTHER] 50 EACH PO (07:35)
[2024-02-13] MEDS: Buprenorphine/Naloxone 2/0.5mg FILM 1 FILM SUBLINGUAL (07:35)
[2024-02-13] MEDS: Furosemide 40 MG TABLET PO (07:35)
[2024-02-13] MEDS: Albuterol/Iprat 2.5/0.5MG 3 ML AMPUL.NEB INHALE ×2 (07:47→11:25)
[2024-02-13] MEDS: Acetaminophen 325 MG TABLET 650 MG PO (10:08)
--- NOTE | 2024-02-13 11:17 | PM.DS ---
DS: Providers Provider Date of Service: 02/13/24 Date of admission: 02/07/24 09:24 Date of discharge: 02/13/24 Primary care physician: Erik Agee MD Consults: 02/07/24 09: Consult to Pulmonology Routine Consulting Provider: [facility] Reason for consultation: acute on chronic resp failure, chronic pulm eff, ?pneumonia Has provider been notified: No Attending physician on discharge: José Luis Waggoner Discharging clinician: Shaneka Marie DS: Diagnosis Discharge Diagnosis (1) Pneumonitis: Status: Acute (2) Acute and chronic respiratory failure: Status: Acute DS: Summary Hospital Course Hospital Course: From H&P on the day of admission Pt is a 63-year-old female with a past medical history significant for non small-cell lung cancer (s/p LITA/RUL lobectomies) with mets on palliative chemotherapy, breast cancer, depression, hepatitis-C, HTN, CHF (recent echo, EF 60-65%), COPD with chronic respiratory failure on 3 L O2 at home, AFib (on Eliquis, diltiazem and metoprolol), hypothyroid and chronic pain on Suboxone, who presented to the ED this morning due to worsening shortness of breath with exertion starting yesterday. She denies fever or cough. No lower extremity edema. No orthopnea. No recent sick contacts. She had 2 recent admissions, discharged on 01/28 after acute on chronic hypoxic respiratory failure due to pneumonia and COPD exacerbation, discharged with prednisone and levofloxacin, as well as most recently discharged on 02/02 for an admission for AFib with RVR. 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 Thoracic surgery consulted and suggested decortication, but anesthesia deemed the patient may need higher level of care for that surgery. acute on chronic hypoxic / hypercapnic respiratory failure due to COPD/CHF exacerbation- improved with BiPAP elevated lactate likely due to respiratory failure, normalized. WBC normalized, possible pneumonitis and stable moderate L pleural effusion on CXR. Intiallyt treated with IV vancomycin and ceftriaxone in ED, recent nasal swab for MRSA negative, will switch to po augmentin x [address] Saravia he will discuss with Dr. Samuels regarding PDL1 inhibitor causing pneumonitis. COPD exacerbation Treated with Solu-Medrol and weaned to oral prednisone. Treated with scheduled and p.r.n. breathing treatments. breathing improved slowly. Recommended pulmonary rehab, patient declined. Ordered PT evaluation but patient declined. recommend outpatient follow up. Theophylline discontinued due to tachycardia which has resolved. CHF exacerbation - no LE edema BNP 1068 on admission improved to 723, patient clinically stable and was transitioned back to home dose of oral Lasix. Paroxysmal a fib with RVR - rate control Continued on baseline medications. Time Attestation Discharge Coordination Time (in mins): 40 Quality: Safe Use of Opioids Does Pt have an Active Cancer Diagnosis on the Problem List?: No Quality: Stroke Does the patient have a stroke diagnosis?: No Physical Exam Vital Signs: Vital Signs: Last Vital Signs Temp 97.2 F 02/13/24 08:00 Pulse 92 02/13/24 08:00 Resp 20 02/13/24 08:00 BP 136/82 02/13/24 08:00 Pulse Ox 94 02/13/24 08:00 O2 Del Method Nasal Cannula 02/13/24 08:00 O2 Flow Rate 3 02/13/24 08:00 FiO2 30 02/07/24 03:08 BMI result Body Mass Index 40.0 Const: General: cooperative, comfortable, no acute distress, alert and awake Nutritional Appearance: overweight Orientation/consciousness: patient oriented x3 Resp: Other: diminished lung sounds b/l no rales, air entry improving Effort & Inspection: normal respiratory effort, able to speak in complete sentences, no respiratory distress and no use of accessory muscles Cardio: Rate: regular rate GI: Inspection: No distended Palpation (GI): Soft to palpation and nontender Neuro: General: patient oriented x3, moves all extremities and CN's II-XI intact bilaterally Extrem: General: Yes no pedal edema DS: Data Data Completed and Pending Completed studies during hospitalization [Text1]: Procedures Drainage of Left Pleural Cavity, Percutaneous Approach (07/09/23) Inspection of Lower Intestinal Tract, Via Natural or Artificial Opening Endoscopic (12/01/23) Transfusion of Nonautologous Platelets into Peripheral Vein, Percutaneous Approach (01/24/22) Transfusion of Nonautologous Red Blood Cells into Peripheral Vein, Percutaneous Approach (11/09/22) Discharge Plan Discharge Anticipated Discharge Date/Time: 02/13/24 11:43 Patient Disposition: Home Health Service Discharge Diagnosis: Acute on chronic respiratory failure due to COPD exacerbation and possible pneumonitis Referrals: Erik Agee MD [Primary Care Provider] - 1 Week Discharge Medications: New amoxicillin-pot clavulanate 875-125 mg Tablet 1 tab PO Q12H Qty: 4 0RF prednisone 10 mg tablet 10 mg PO DIRECTED Qty: 30 0RF Rx Instructions: see taper instructions; 40 mg Daily x3 days, 30 mg daily x3 days, 20 mg daily x3 days, 10 mg daily x3 days Continued levothyroxine [Synthroid] 25 mcg tablet 25 mcg PO DAILY@0600 0RF potassium chloride [K-Tab] 20 mEq Tablet Extended Release 20 meq PO DAILY Qty: 30 0RF folic acid 1 mg tablet 1 mg PO DAILY Qty: 90 3RF paroxetine HCl 20 mg tablet 40 mg PO BID omeprazole 20 mg capsule,delayed release(DR/EC) 20 mg PO DAILY@0630 Savella 50 mg tablet 50 mg PO BID simvastatin 20 mg Tablet 20 mg PO BEDTIME docusate sodium 100 mg capsule 100 mg PO BEDTIME PRN (Reason: stool softener) buprenorphine-naloxone [Suboxone] 2-0.5 mg film 1 film sublingual DAILY Anoro Ellipta 62.5-25 mcg/actuation blister with device 1 inh INHALATION DAILY ipratropium-albuterol 0.5 mg-3 mg(2.5 mg base)/3 mL solution for nebulization 3 ml inhalation Q6H PRN (Reason: wheezing) acetaminophen 500 mg Tablet 500 mg PO DAILY PRN (Reason: Pain) Eliquis 5 mg Tablet 5 mg PO BID Qty: 60 0RF furosemide 40 mg tablet 40 mg PO DAILY nicotine 21 mg/24 hr patch 24 hour 21 mg transdermal DAILY PRN (Reason: Smoking Cessation) Mucus DM 30-600 mg Tablet Extended Release 12 Hr 1 tab PO BID Qty: 20 0RF magnesium oxide 400 mg magnesium tablet 400 mg PO DAILY Qty: 90 0RF buprenorphine-naloxone [Suboxone] 2-0.5 mg film 1 film sublingual DAILY PRN (Reason: Pain) metoprolol succinate 50 mg Tablet Extended Release 24 Hr 150 mg PO DAILY Qty: 45 0RF Protocol: Hold for SBP/HR < HOLD for SBP < : 90 HOLD for HR < : 60 diltiazem HCl 240 mg Capsule,Extended Release 24hr 240 mg PO DAILY Qty: 30 0RF Protocol: Hold for SBP/HR < HOLD for SBP < : 90 HOLD for HR < : 60 albuterol sulfate [Ventolin HFA] 90 mcg/actuation HFA aerosol inhaler 2 puff inhalation Q6H PRN (Reason: sob) Discontinued theophylline 400 mg tablet extended release 24 hr 400 mg PO DAILY Qty: 30 0RF prednisone 10 mg tablet See Taper PO DIRECTED Qty: 30 0RF Taper: Prednisone 40 mg daily for 3 Days and 0 Hour 30 mg daily for 3 Days and 0 Hour 20 mg daily for 3 Days and 0 Hour 10 mg daily for 3 Days and 0 Hour Rx Instructions: see taper instructions levofloxacin 750 mg tablet 750 mg PO DAILY Qty: 5 0RF Discharge Orders: Discharge Order (Routine); Ordered 02/13/24 Ordered By: Shaneka Marie Activity on Discharge: As tolerated Stand Alone Forms: Patient Portal Discharge page Print Language: Malay Care Plan Goals: see below Health Concerns: Acute COPD exacerbation Acute exacerbation of CHF Possible pneumonitis Plan of Treatment: Complete course of antibiotics as prescribed Complete taper of prednisone stop theophylline Call to schedule follow-up with PCP Call to schedule follow-up appointment with pulmonology Assessment: see discharge summary
--- NOTE | 2024-02-13 13:06 | MHC.CM.PN ---
CM MET WITH PT TO DISCUSS DC PLANNING SHE REPORTS SHE WANTS TO DC HOME WITH [facility] AND DOES NOT WANT TO GO TO [facility] SHE WILL DC HOME WITH [facility] DAUGHTER TO TRANSPORT
--- NOTE | 2024-02-13 13:26 | W.MHC.F2F ---
Service Date Service Date: 02/13/24 Encounter Date of encounter: 02/13/24 Reasons for Services Signs and symptoms assessed: h/o COPD/lung cancer, physical deconditioning Reason for jail: CV/CP assess and/or care and teach disease management MD Overseeing Care: Erik Agee Homebound: Leaving the home is medically contraindicated at this time without the asist of a device and/or another person due th the listed conditions above and below. Reason homebound: shortness of breath with minimal effort Certification: Based on the above findings, I certify that this patient is confined to the home and needs intermittent jail care, physical therapy and/or speech therapy, or continues to need occupational therapy. The patient is under my care, and I have initiated the establishment of the plan of care. The patient will be followed by a physician who will periodically review the plan of care. Time Spent With Patient Time: Total time managing care of this patient today ____ minutes.
== END 2024-02-13 14:52 | disposition home health service (06) | DRG 144 ==
LOC: HO.ED 04:24 → HO.EDOVER 09:38 → HO.IMC 13:12
PROVIDERS: Hospitalist; Admitting Provider Physician Assistant; Emergency Provider Emergency Medicine; PCP Internal Medicine; Visit Provider Physician Assistant Medical
DX: J70.4 Drug-induced interstitial lung disorders, unspecified (principal); J96.21 Acute and chronic respiratory failure with hypoxia; C79.9 Secondary malignant neoplasm of unspecified site; C34.12 Malignant neoplasm of upper lobe, left bronchus or lung; C34.11 Malignant neoplasm of upper lobe, right bronchus or lung; I48.0 Paroxysmal atrial fibrillation; I11.0 Hypertensive heart disease with heart failure; I50.9 Heart failure, unspecified; J44.1 Chronic obstructive pulmonary disease with (acute) exacerbation; Z99.81 Dependence on supplemental oxygen; T45.1X5A Adverse effect of antineoplastic and immunosuppressive drugs, initial encounter; J96.22 Acute and chronic respiratory failure with hypercapnia; J90 Pleural effusion, not elsewhere classified; F11.20 Opioid dependence, uncomplicated; E78.5 Hyperlipidemia, unspecified; G89.29 Other chronic pain; Z20.822 Contact with and (suspected) exposure to COVID-19; Z90.2 Acquired absence of lung [part of]; E03.9 Hypothyroidism, unspecified; Z85.3 Personal history of malignant neoplasm of breast; Z86.19 Personal history of other infectious and parasitic diseases; Z79.890 Hormone replacement therapy; Z79.899 Other long term (current) drug therapy
CPT/HCPCS: 0241U; 36415; 71045; 80048; 80076; 82803; 83605; 83735; 83880; 84145; 84484; 85025; 85610; 86140; 87040; 87633; 93005; 94640; 99285; J0456; J0696; J1160; J1940; J2270; J2405; J2543; J2919; J3010; J3370; P9047

== ENCOUNTER → 2024-02-07 02:52 | Outpatient (BNV) | payer MEDICAID, SELFPAY | PROVIDERS: Admitting Provider Physician Assistant; Emergency Provider Emergency Medicine; PCP Internal Medicine; Visit Provider Internal Medicine | DX: I48.91 Unspecified atrial fibrillation (principal); R06.09 Other forms of dyspnea; R94.31 Abnormal electrocardiogram [ECG] [EKG] | CPT/HCPCS: 93010 ==

== ENCOUNTER 2024-02-07 09:24 | Outpatient (BNV) | payer MEDICAID, SELFPAY | END 2024-02-10 03:00 | PROVIDERS: Admitting Provider Physician Assistant; Emergency Provider Emergency Medicine; PCP Internal Medicine; Visit Provider Radiology Diagnostic Radiology | DX: R06.02 Shortness of breath (principal) | CPT/HCPCS: 71045 ==

== ENCOUNTER → 2024-02-07 09:24 | Outpatient (BNV) | payer MEDICAID, SELFPAY | PROVIDERS: Admitting Provider Physician Assistant; Emergency Provider Emergency Medicine; PCP Internal Medicine; Visit Provider Physician Assistant | DX: J98.4 Other disorders of lung (principal); J96.22 Acute and chronic respiratory failure with hypercapnia | CPT/HCPCS: 99223; 99232; 99233; 99239; G0180 ==

== ENCOUNTER → 2024-02-07 09:24 | Outpatient (BNV) | payer MEDICAID, SELFPAY | PROVIDERS: Admitting Provider Physician Assistant; Emergency Provider Emergency Medicine; PCP Internal Medicine; Visit Provider Hospitalist | DX: J96.22 Acute and chronic respiratory failure with hypercapnia (principal); J18.9 Pneumonia, unspecified organism; J98.4 Other disorders of lung; J44.1 Chronic obstructive pulmonary disease with (acute) exacerbation; J90 Pleural effusion, not elsewhere classified | CPT/HCPCS: 99223 ==

== ENCOUNTER 2024-02-17 04:23 | Inpatient (IN) | payer MEDICAID, SELFPAY ==
[2024-02-17] VITALS (21 sets, daily range): BP systolic 112–160; BP diastolic 86–119; PULSE 68–137; RESP 18–29; TEMP 36–37.1; O2SAT 92–99; BMI 33.9
--- NOTE | ~2024-02-17 | XR_ITS ---
EXAMINATION: XR CHEST CLINICAL INFORMATION: Dyspnea. Cough. COMPARISON: February 10, 2024. TECHNIQUE: Frontal view of the chest was obtained. FINDINGS: The cardiomediastinal silhouette is stable. There is a left lung base opacity. There is a pleural opacity extending to the left upper lung field similar to previous. There is blunting of the right costophrenic angle with likely chronic atelectasis at the right lung base similar to previous. The bony structures and the soft tissues are unremarkable. XR/XR chest 1V IMPRESSION: 1. Left lung base opacity which may represent atelectasis or infiltrate. 2. Chronic pleural opacity extending to the left upper lung field. Electronically signed by: Cirilo Carmichael MD 02/17/2024 05:26 AM [facility]
--- NOTE | 2024-02-17 04:26 | ECG_ITS ---
Test Reason : CP Blood Pressure : / mmHG Vent. Rate : 119 BPM Atrial Rate : 000 BPM P-R Int : 000 ms QRS Dur : 068 ms QT Int : 298 ms P-R-T Axes : 000 030 003 degrees QTc Int : 419 ms Atrial fibrillation with rapid ventricular response Abnormal ECG When compared with ECG of 07-FEB-2024 02:51, Nonspecific T wave abnormality now evident in Inferior leads Referred By: Stephanie Somers Electronically Signed By:LISY HESTER MD
[2024-02-17 04:38] LABS: MANUAL DIFF FLAG NO
[2024-02-17 04:39] LABS: Basophils Percent Auto 0.4 % (0-2); Eosinophils Absolute Auto 0.1 X10*3/uL (0.0-0.4); Hematocrit 36.4 % (37.0-47.0); Hemoglobin 11.4 g/dl (12.0-16.0); Imm Gran Abs Auto 0.32 X10*3/uL (0.00-0.03); Lymphocytes Absolute Auto 1.2 X10*3/uL (1.2-4.9); Lymphocytes Percent Auto 11.3 % (20-40); Mean Corpuscular HGB Conc 31.3 g/dl (31.0-35.0); Mean Corpuscular Volume 95.8 fL (80.0-98.0); Mean Platelet Volume 9.7 fL (9.4-12.3); Monocytes Absolute Auto 1.3 X10*3/uL (0.1-1.2); NRBC Pct Auto 0.2 /100WBC (0.0-0.2); Neutrophils Absolute Auto 7.8 x10*3/uL (2.0-8.3); Neutrophils Percent Auto 72.3 % (45-73); Platelet Count 160 X10*3/uL (160-400); Red Cell Distribution Width 15.9 % (11.0-16.0); White Blood Count 10.8 X10*3/uL (4.8-10.8)
[2024-02-17 04:40] LABS: Venous Blood Gas Refer to POC result
[2024-02-17] MEDS: methylPREDNISolone Sod Succ 125 MG/2 ML VIAL 60 MG IVPUSH (04:40)
[2024-02-17] MEDS: Azithromycin 500 MG in 0.9 % Sodium Chloride 250 ML 125 MG IV (04:42)
[2024-02-17 04:45] LABS: VBG Base Excess 14.6 mmol/L; VBG HCO3 41 mmol/L (22-26); VBG pCO2 61 mmHg; VBG pH 7.43 (7.32-7.43); VBG pO2 60 mmHg
[2024-02-17 04:56] LABS: Alanine Aminotransferase 34 U/L (0-31); Alkaline Phosphatase 54 U/L (39-117); Anion Gap 20 (12-20); Aspartate Amino Transferase 26 U/L (5-31); Bilirubin Direct 0.2 mg/dL (0.0-0.5); Bilirubin Total 0.4 mg/dL (0.0-1.0); Blood Urea Nitrogen 36 mg/dL (9-16); Calcium 9.8 mg/dL (8.4-10.2); Carbon Dioxide 32 mmol/L (22-29); Chloride 100 mmol/L (96-108); Creatinine Clr Calc Pharmacy 56.7; Estimated Glomerular Filt Rate 45; Glucose Random 199 mg/dL (60-115); Lipase 46 U/L (8-78); Potassium 4.3 mmol/L (3.3-5.1); Sodium 148 mmol/L (135-145); Total Protein 6.3 g/dL (6.5-8.0)
[2024-02-17 05:01] LABS: B Type Natriuretic Peptide 488 pg/mL (<100)
[2024-02-17 05:03] LABS: Lactic Acid 2.6 mmol/L (0.5-2.0)
[2024-02-17 05:04] LABS: Troponin-I High Sensitivity 111.8 ng/L (<3.5-17.0)
[2024-02-17] MEDS: Nitroglycerin 2 % Oint 1 GM Packet 0.5 INCH TRANSDERMA (05:06)
[2024-02-17] MEDS: levalbuterol HCL 1.25 MG/3 ML VIAL.NEB INHALE (05:28)
[2024-02-17 05:30] LABS: Influenza A PCR NEGATIVE (Negative); Influenza B PCR NEGATIVE (Negative); Resp Syncy Virus RNA Qual PCR NEGATIVE (Negative); SARS COV2 PCR INHOUSE NEGATIVE (Negative)
--- NOTE | 2024-02-17 06:02 | ED_ITS ---
HPI - SOB/Dyspnea General Chief Complaint: Dyspnea Stated Complaint: CP, SOB, on CPAP Time Seen by Provider: 02/17/24 04:25 Source: patient, EMS and old records reviewed Mode of arrival: EMS Limitations: no limitations History of Present Illness ED Provider: KAVIN COLLINS Narrative: 63 yo female with PMH of non small cell lung cancer s/p LITA and RUL resection with mets on palliative chemotherapy, breast cancer, depression, hep C, HTN, COPD with chronic resp failure on 3L home O2, afib on eliquis, opiate dependence who was just admitted here 02/06 and DC on 02/12 treated initially with antiobiotics and steroids - DC on Augmentin. [place] it was related to PDL1 inhibitor causing pneumonitis. Tonight when she went to bed she had sudden onset dyspnea and chest tightness. Tried to increased her O2 to 5L which did not help. EMS noted patient to be 70% on RA transitioning to CPAP. In afib RVR on arrival but looks much better than last time. MD elicited complaint: shortness of breath and chest pain Pertinent past history: COPD, congestive heart failure and pneumonia Onset (ago): hour(s) (1) Context: other (started after trying to use bathroom) Timing: improved Severity: severe Exacerbating factors: lying flat and exertion Relieving factors: oxygen, rest and bronchodilators Known history of: COPD and congestive heart failure Associated symptoms: chest pain, cough and wheezing Treatment prior to arrival: oxygen and NIPPV Related Data Home Medications ?Medication ?Instructions ?Recorded ?Confirmed milnacipran 50 mg tablet (Savella) 50 mg PO BID 01/18/22 02/07/24 omeprazole 20 mg capsule,delayed 20 mg PO DAILY@0630 01/18/22 02/07/24 release paroxetine HCl 20 mg tablet 40 mg PO BID 01/18/22 02/07/24 simvastatin 20 mg tablet 20 mg PO BEDTIME 02/17/22 02/07/24 albuterol sulfate 90 mcg/actuation 2 puff inhalation Q6H PRN sob 06/22/23 02/07/24 aerosol inhaler (Ventolin HFA) buprenorphine 2 mg-naloxone 0.5 mg 1 film sublingual DAILY 07/09/23 02/07/24 sublingual film (Suboxone) docusate sodium 100 mg capsule 100 mg PO BEDTIME PRN stool 07/09/23 02/07/24 softener umeclidinium 62.5 mcg-vilanterol 1 inh inhalation DAILY 07/09/23 02/07/24 25 mcg/actuation powdr for inhalation (Anoro Ellipta) ipratropium 0.5 mg-albuterol 3 mg 3 ml inhalation Q6H PRN wheezing 10/18/23 02/07/24 (2.5 mg base)/3 mL nebulization soln acetaminophen 500 mg tablet 500 mg PO DAILY PRN Pain 11/03/23 02/07/24 furosemide 40 mg tablet 40 mg PO DAILY 01/19/24 02/07/24 nicotine 21 mg/24 hr daily 21 mg transdermal DAILY PRN 01/19/24 02/07/24 transdermal patch Smoking Cessation buprenorphine 2 mg-naloxone 0.5 mg 1 film sublingual DAILY PRN Pain 01/31/24 02/07/24 sublingual film (Suboxone) Previous Rx's ?Medication ?Instructions ?Recorded folic acid 1 mg tablet 1 mg PO DAILY #90 tabs 10/04/23 apixaban 5 mg tablet (Eliquis) 5 mg PO BID #60 tabs 12/09/23 levothyroxine 25 mcg tablet 25 mcg PO DAILY@0600 01/10/24 (Synthroid) potassium chloride 20 mEq 20 meq PO DAILY #30 tabs 01/14/24 tablet,extended release (K-Tab) dextromethorphan-guaifenesin 30 1 tab PO BID #20 tabs 01/26/24 mg-600 mg tablet extended [id number] hr (Mucus DM) magnesium oxide 400 mg PO DAILY #90 tabs 01/26/24 diltiazem HCl 240 mg 240 mg PO DAILY #30 caps 02/03/24 capsule,extended release 24 hr metoprolol succinate 50 mg 150 mg PO DAILY #45 tabs 02/03/24 tablet,extended release 24 hr amoxicillin 875 mg-potassium 1 tab PO Q12H #4 tabs 02/09/24 clavulanate 125 mg tablet prednisone 10 mg tablet 10 mg PO DIRECTED #30 tabs 02/09/24 Allergies Allergy/AdvReac Type Severity Reaction Status Date / Time lisinopril [LISINOPRIL] Allergy Severe SWELLING- Verified 02/17/24 04:47 ANGIOEDEMA codeine [CODEINE] Allergy Intermediate VOMITING/HIVES, Verified 02/17/24 04:47 vomiting, hives Review of Systems 2 Review of Systems: Constitutional : No Fever, No Chills ENT/Mouth : No Hoarseness, No sore throat, No Rhinorrhea Eyes: No Redness, No Discharge, No Vision Changes Cardiovascular : pos Chest Pain, positive SOB, positive Dyspnea on Exertion, No Edema Respiratory : positive Cough, No Sputum, positive Wheezing, Gastrointestinal : No Nausea, No Vomiting, No Diarrhea, No abdominal Pain Genitourinary : No Dysuria, No Hematuria Musculoskeletal : No joint pain, No Myalgias Skin : No rash Neuro : No Weakness, No Numbness, No Headache Psych : No anxiety, depression All other systems reviewed and are negative PMFSH Past Medical History Attestation statement: The following information was validated with the patient. Source: old records reviewed Medical History Pneumonitis Lung cancer Pancytopenia New onset a-fib Cancer of upper lobe of left lung (~2020) Bilateral lung cancer Obesity History of hepatitis C Smoker Tubular adenoma of colon Pulmonary nodules History of breast cancer (~2006) Internal and external bleeding hemorrhoids Cancer of upper lobe of right lung (~2019) GERD (gastroesophageal reflux disease) Depression COPD (chronic obstructive pulmonary disease) HTN (hypertension) Surgical History History of lung surgery (~2020) History of anterior colporrhaphy (~2016) History of tubal ligation History of lumpectomy of right breast (~2006) History of colonoscopy (~2014) History of hemorrhoidectomy (~2019) History of back surgery (~2011) History of lobectomy of lung (~2019) Family History Family History Mother History of lung cancer Brother History of lung cancer Maternal Grandmother Breast cancer in female Maternal Aunt Breast cancer in female Daughter Thyroid cancer Social History Social History Household Members: Spouse Household Members Other:: 2 Housing: Apartment Are you a primary daycare assistant to a significant other at home: No Do you presently have visiting nurse or other home services: Yes ([facility]) Unable to assess alcohol history related to: Unable to respond Alcohol intake: never Comment: Refused all safety measures Patient Tobacco Use Status: Former Tobacco user Tobacco use type: Cigarette Cigarette Packs Per Day: 1 Cigarettes Per Day: 10 Years Smoked: 50 Smoked in Last 30 Days: No e-Cigarette/Vaping Use: Former Use Second Hand Smoke Exposure: Yes Use of substances other than those prescribed or required for medical reasons: No Substance Use Type: Marijuana Advance Directives: Yes Advance Directives on File: Yes Advance Directives Date on File: 02/02/22 Do you have a plan to hurt others: No Plan Patient : No service: No Current occupational status: disabled Current occupational exposures/hazards: No Physical Exam 2 Vital Signs: Vital Signs: Last Vital Signs Temp 98.7 F 02/17/24 08:53 Pulse 120 H 02/17/24 08:53 Resp 24 H 02/17/24 08:53 BP 157/108 H 02/17/24 08:53 Pulse Ox 96 02/17/24 08:53 O2 Del Method Room Air 02/17/24 08:53 O2 Flow Rate 3 02/17/24 07:18 BMI result Body Mass Index 33.9 Appearance: Alert. Oriented X3. Mild acute distress. Eyes: Pupils equal, round and reactive to light. ENT: Pharynx normal. Neck: Normal inspection. Neck supple. CVS: irregular tachycardic heart rate and rhythm. Pulses normal. Respiratory: Mild respiratory distress labored and retractions noted. Breath sounds diffuse wheezing and diminished throughout. Abdomen: Soft and nontender. Skin: Skin warm and dry. pale skin color. Normal skin turgor. Extremities: No lower extremity edema. Neuro: Oriented X 3. No motor deficit. No sensory deficit. Course Course Course Narrative: lactic acidosis is chronic and not due to infection or severe sepsis it is due to albuterol and hypoxia from resp distress Reevaluation(s) Reevaluation #1: off bipap 730am trop flat Reevaluation #2: dilt gtt for afib with RVR Medications Administered Generic Name Dose Route Start Last Admin Trade Name Freq PRN Reason Stop Dose Admin Diltiazem HCl 125 mg/ Sodium 125 mls @ 0 mls/hr 02/17/24 07:30 02/17/24 08:20 Chloride IVCONT 15 mg/hr .Q0M WALTER 15 mls/hr Titration Protocol Per Protocol Discontinued Medications Generic Name Dose Route Start Last Admin Trade Name [place] PRN Reason Stop Dose Admin Diltiazem HCl 10 mg 02/17/24 06:13 02/17/24 06:16 Diltiazem Hcl 50 Mg/10 Ml Vial IVPUSH 02/17/24 06:14 10 mg STAT STA Administration Azithromycin 500 mg/ Sodium 250 mls @ 125 mls/hr 02/17/24 04:25 02/17/24 06:49 Chloride IV 02/17/24 06:24 Infused ONCE ONE Infusion Levalbuterol HCl 1.25 mg 02/17/24 05:19 02/17/24 05:28 Levalbuterol Hcl 1.25 Mg/3 Ml Vial.Neb INHALE 02/17/24 05:20 1.25 mg ONCE ONE Administration Methylprednisolone Sodium Succinate 60 mg 02/17/24 04:25 02/17/24 04:40 Methylprednisolone Sod Succ 125 Mg/2 Ml Vial IVPUSH 02/17/24 04:26 60 mg ONCE ONE Administration Nitroglycerin 0.5 inch 02/17/24 05:06 02/17/24 05:06 Nitroglycerin 2 % Oint 1 Gm Packet TRANSDERMA 02/17/24 05:07 0.5 inch ONCE ONE Administration Medical Decision Making Medical Decision Making [facility] Narrative: 63 yo female with PMH of non small cell lung cancer s/p LITA and RUL resection with mets on palliative chemotherapy, breast cancer, depression, hep C, HTN, COPD with chronic resp failure on 3L home O2, afib on eliquis, opiate dependence here with c/o acute onset dyspnea and chest pain - doubt VTE she is compliant with eliquis will obtain basic labs, troponin x 1, start on steroids and empiric azithromycin. She will give given nitro paste for here chest pain as well. Differential Diagnosis Differential Diagnoses: The differential diagnosis associated with the presentation includes asthma, pneumonitis, ACS, doubt VTE is compliant with eliquis Admission/Observation Consideration of admission/observation: Escalation of care including admission/observation considered admit for further workup and management off bipap Consult Healthcare Provider Management of the patient was discussed with: Hospitalist (will admit) Lab Data [facility] Lab Attestation statement: I reviewed the patient's lab results. 02/17/24 04:32 02/17/24 04:32 Labs: Lab Results 02/17/24 02/17/24 02/17/24 Range/Units 04:32 04:40 06:46 WBC 10.8 (4.8-10.8) X10*3/uL RBC 3.80 L (4.20-5.50) X10*6/uL Hgb 11.4 L (12.0-16.0) g/dl Hct 36.4 L (37.0-47.0) % MCV 95.8 (80.0-98.0) fL MCH 30.0 (27.0-33.0) pg MCHC 31.3 (31.0-35.0) g/dl RDW 15.9 (11.0-16.0) % Plt Count 160 (160-400) X10*3/uL MPV 9.7 (9.4-12.3) fL Immature Gran % (Auto) 3.0 H (0.0-0.4) % Neut % (Auto) 72.3 (45-73) % Lymph % (Auto) 11.3 L (20-40) % [place] % (Auto) 12.0 H (2-11) % Eos % (Auto) 1.0 (0-4) % Baso % (Auto) 0.4 (0-2) % Lymph # (Auto) 1.2 (1.2-4.9) X10*3/uL [place] # (Auto) 1.3 H (0.1-1.2) X10*3/uL Eos # (Auto) 0.1 (0.0-0.4) X10*3/uL Baso # (Auto) 0.0 (0.0-0.2) X10*3/uL Abs Immat Gran (auto) 0.32 H (0.00-0.03) X10*3/uL Absolute Neuts (auto) 7.8 (2.0-8.3) x10*3/uL Absolute Nucleated RBC 0.020 H (0.0-0.012) X10*3/uL Nucleated RBC % (auto) 0.2 (0.0-0.2) /100WBC VBG pH 7.43 (7.32-7.43) VBG pCO2 61 mmHg VBG pO2 60 mmHg VBG HCO3 41 H (22-26) mmol/L VBG O2 Saturation 90.0 % VBG Base Excess 14.6 mmol/L Sodium 148 H (135-145) mmol/L Potassium 4.3 (3.3-5.1) mmol/L Chloride 100 (96-108) mmol/L Carbon Dioxide 32 H (22-29) mmol/L Anion Gap 20 (12-20) BUN 36 H (9-16) mg/dL Creatinine 1.22 (0.5-1.4) mg/dL Estim Creat Clear Calc 56.7 Estimated GFR 45 Random Glucose 199 H (60-115) mg/dL Lactic Acid 2.6 H* (0.5-2.0) mmol/L Lactic Acid F/U @ 2Hr 2.1 H* (0.5-2.0) mmol/L Calcium 9.8 (8.4-10.2) mg/dL Magnesium 2.0 (1.6-2.6) mg/dL Total Bilirubin 0.4 (0.0-1.0) mg/dL Direct Bilirubin 0.2 (0.0-0.5) mg/dL AST 26 (5-31) U/L ALT 34 H (0-31) U/L Alkaline Phosphatase 54 (39-117) U/L Troponin I High Sens 111.8 H* D 109.5 H* (<3.5-17.0) ng/L B-Natriuretic Peptide 488 H (<100) pg/mL Total Protein 6.3 L (6.5-8.0) g/dL Albumin 4.0 (3.5-5.0) g/dL Lipase 46 (8-78) U/L Influenza Type A (PCR) NEGATIVE (Negative) Influenza Type B (PCR) NEGATIVE (Negative) RSV RNA Qual (PCR) NEGATIVE (Negative) SARS-CoV-2 RNA (RT-PCR) NEGATIVE (Negative) Independent Interpretation I performed an independent interpretation of an: EKG and Plain X-Ray (chronic markings) Interpretation: Rate: 119 Rhythm: afib with RVR [place]: normal Normal QRS complex. ST T wave : no LESA, flat t waves aVL qTC: 419 prior studies: afib with RVR The study has been interpreted contemporaneously by me. . Radiology Impression Discussion of test interpretation with radiology: I have reviewed the radiologist's reading. Independent Historian Clinical information obtained from an independent historian. History obtained from or confirmed by: EMS External Record Review External record reviewed: Inpatient record Critical Care Time Critical Care Time Critical Care Time: Yes Total Critical Care Time: 60 Attestation: repeat labs, NIPPV, review of records admission I attest to this time spent taking care of the patient Discharge Plan Discharge Clinical Impression: Atrial fibrillation with rapid ventricular response, Acute and chronic respiratory failure, Elevated troponin Patient Disposition: Admitted As Inpatient Print Language: Sami
--- NOTE | 2024-02-17 06:06 | PC.NURSE ---
Pt arrives to ED on cpap by ems. Immediately placed onto bipap by RT at bedside. Pt on bipap for approx 2 hours and then weaned onto 3L NC . however after NC and duoneb tx, pt still presenting with increased wob and pursed lip breathing. Placed back onto bipap by RT at this time. Pt awake, alert, oriented, answering all questions appropriately. on site monitor, HR 110-130 AFIB . nitro pace 0.5 in. placed on right upper chest for 5/10 chest pain/tightness and elevated trop. MD Somers ordering diltiazem iv. plan of care ongoing.
[2024-02-17] MEDS: dilTIAZem HCL 50 MG/10 ML VIAL 10 MG IVPUSH (06:16)
[2024-02-17 06:36] LABS: Reflex Lactate? Lactic Acid Added
[2024-02-17 07:11] LABS: ~Lactic Acid-LAB USE ONLY 2.1 mmol/L (0.5-2.0)
[2024-02-17 07:20] LABS: Troponin-I High Sensitivity 109.5 ng/L (<3.5-17.0)
--- NOTE | 2024-02-17 07:22 | PC.NURSE ---
a&ox4. vss and up to date aside from being hypertensive and displaying w/ afib on the monitoring manager. HR fluctuating between 100-130bpm. pt denies any chest pain/palpitations. pt requesting to be taken off of bipap via RT at this time. pt more awake. pt transitioned back to 3L via NC (baseline) at this time. pt tolerated transition well. no sob/wob noted. respirations even/unlabored. SPO2 @ 96% on 3L. pt positioned upright to promote patent airway. provider aware pt remains hypertensive at this time. plan of care ongoing. call moya placed within reach.
[2024-02-17] MEDS: dilTIAZem HCL 125 MG in 0.9 % Sodium Chloride 100 ML 10 MG IVCONT (08:04)
--- NOTE | 2024-02-17 08:10 | PC.NURSE ---
pt remains in afib/hypertensive. cardizem drip starting/infusing @ 10mls/hr at this time. will titrate per protocol as needed. pt seemingly diaphoretic upon assessment - POC obtained displaying 106mg/dL. pt otherwise remains on 3L via NC. no sob/wob noted. respirations even/unlabored. plan of care ongoing. call moya placed within reach.
--- NOTE | 2024-02-17 08:20 | PC.NURSE ---
pt remains on afib at this time - HR between 110-13bpm. pt continues to deny chest pain/palpitations. cardizem drip titrated per protocol - infusing @ 15mls/hr at this time. no sob/wob noted. respirations remain even/unlabored. plan of care ongoing. call moya placed within reach.
[2024-02-17 08:50] LABS: Reflex Lactate? 2 Y
--- NOTE | 2024-02-17 09:28 | PC.NURSE ---
repeat lactic obtained/sent to lab by tech.
[2024-02-17 09:45] LABS: ~Lactic Acid-LAB USE ONLY 2.4 mmol/L (0.5-2.0)
[2024-02-17 10:18] LABS: Cancel Lactic Acid Canceled
--- NOTE | 2024-02-17 10:52 | MHC.CM.ED ---
Patient currently in ER. Received notification patient is active with [facility]. Return referral made so agency can follow for d/c needs.
--- NOTE | 2024-02-17 11:28 | PHA.MEDREC ---
Addendum entered by Dania Faust RPh 02/17/24 11:36: Reviewed by [facility] Original Note: Pharmacy Consult ? Medication Reconciliation Pharmacy has completed the medication reconciliation. Tried speaking with patient but she was a poor historian and when I was speaking with her she was saying yes to everything even if it was not a yes or no question. I called her daughter Makayla who stated the Discharge Packet from 02/12 was most up to date, she was not able to answer if her mom was taking or finished the Amoxicillin-Pot regimen, I called her pharmacy and they confirmed she picked that up 02/12 for the 2 day regimen. I utilized discharge packet from 02/12 to confirm med rec.
--- NOTE | 2024-02-17 11:40 | PM.IMHP ---
History of Present Illness Date of Service: 02/17/24 Attending physician on admission: Joel Brink Chief Complaint: SOB, chest pain Pt is a 63-year-old female with a past medical history significant for non small-cell lung cancer (s/p LITA/RUL lobectomies) with mets on palliative chemotherapy, breast cancer, depression, hepatitis-C, HTN, CHF (recent echo, EF 60-65%), COPD with chronic respiratory failure on 3 L O2 at home, AFib (on Eliquis, diltiazem and metoprolol), hypothyroid and chronic pain on Suboxone, who presented to the ED this morning due to sudden chest pain and SOB this morning after waking up to urinate. She called EMS and O2 saturation was in the 70s and she was transitioned to CPAP. She had good improved range of saturations after this. She denies any headache, sore throat, nasal congestion, runny nose, cough, abdominal pain, nausea, vomiting, diarrhea. No recent sick contacts. She was recently discharged on 02/13/2024 for possible pneumonitis due to the PD-L1 inhibitor she takes or lung cancer, as well as an acute COPD exacerbation and acute CHF exacerbation. Prior to this she also had a recent admission for AFib with RVR discharged on 02/02 and acute on chronic respiratory failure due to pneumonia and COPD exacerbation discharged on 01/28. She notes improvement with the prednisone and breathing treatment. Chest pain has resolved and shortness of breath have improved. Review of Systems Constitutional: Constitutional: Denies chills, Denies fever(s) and Denies headache(s) Eyes: Eyes: Denies change in vision ENT: Denies dizziness, Denies headache(s), Denies nasal congestion, Denies nasal discharge and Denies sore throat Cardiovascular: Cardiovascular: Reports chest pain, Denies rapid heart rate, Denies leg edema and Reports dyspnea Respiratory: Respiratory: Denies chest congestion, Denies cough, Reports dyspnea and Reports wheezing Gastrointestinal: Gastrointestinal: Denies constipation, Denies diarrhea, Denies nausea and Denies vomiting Genitourinary: Genitourinary: Denies dysuria Musculoskeletal: Musculoskeletal: Denies back pain and Denies myalgias Integumentary/Breasts: Skin/Breast: Denies rash Neurologic: Denies confusion, Denies dizziness and Denies headache(s) Psychiatric: Psychiatric: Denies confusion Allergic/Immunologic: Allergic/Immunologic: Reports wheezing [facility] Medical History Pneumonitis Lung cancer Pancytopenia New onset a-fib Cancer of upper lobe of left lung (~2020) Bilateral lung cancer Obesity History of hepatitis C Smoker Tubular adenoma of colon Pulmonary nodules History of breast cancer (~2006) Internal and external bleeding hemorrhoids Cancer of upper lobe of right lung (~2019) GERD (gastroesophageal reflux disease) Depression COPD (chronic obstructive pulmonary disease) HTN (hypertension) Family History Mother History of lung cancer Brother History of lung cancer Maternal Grandmother Breast cancer in female Maternal Aunt Breast cancer in female Daughter Thyroid cancer Surgical History History of lung surgery (~2020) History of anterior colporrhaphy (~2016) History of tubal ligation History of lumpectomy of right breast (~2006) History of colonoscopy (~2014) History of hemorrhoidectomy (~2019) History of back surgery (~2011) History of lobectomy of lung (~2019) Social History Household Members: Spouse Household Members Other:: 2 Housing: Apartment Are you a primary care analyst to a significant other at home: No Do you presently have visiting nurse or other home services: Yes ([facility]) Unable to assess alcohol history related to: Unable to respond Alcohol intake: never Comment: Refused all safety measures Patient Tobacco Use Status: Former Tobacco user Tobacco use type: Cigarette Cigarette Packs Per Day: 1 Cigarettes Per Day: 10 Years Smoked: 50 Smoked in Last 30 Days: No e-Cigarette/Vaping Use: Former Use Second Hand Smoke Exposure: Yes Use of substances other than those prescribed or required for medical reasons: No Substance Use Type: Marijuana Advance Directives: Yes Advance Directives on File: Yes Advance Directives Date on File: 02/02/22 Do you have a plan to hurt others: No Plan Patient : No service: No Current occupational status: disabled Current occupational exposures/hazards: No Meds Allergies Allergy/AdvReac Type Severity Reaction Status Date / Time lisinopril [LISINOPRIL] Allergy Severe SWELLING- Verified 02/17/24 04:47 ANGIOEDEMA codeine [CODEINE] Allergy Intermediate VOMITING/HIVES, Verified 02/17/24 04:47 vomiting, hives Active Medications: Current Medications Acetaminophen (Acetaminophen 325 Mg Tablet) 650 mg PO Q6H PRN PRN Reason: Pain, Mild (Pain Scale 1-3), fever or headache Calcium Carbonate (Calcium Carbonate 750 Mg Tab.Chew) 750 mg PO Q4H PRN PRN Reason: Heartburn Levalbuterol HCl 1.25 mg/ (Ipratropium [place] 0.5 mg) 0 mg INHALE RQ4H WHILE AWAKE [facility] Diltiazem HCl 125 mg/ Sodium (Chloride) 125 mls @ 0 mls/hr IVCONT .Q0M [facility]; Protocol Last Titration: 02/17/24 08:20 Dose: 15 mg/hr, 15 mls/hr Magnesium Hydroxide (Milk Of Magnesia 30 Ml Oral.Susp) 30 ml PO DAILY PRN PRN Reason: Constipation Melatonin (Melatonin 3 Mg Tablet) 6 mg PO BEDTIME PRN PRN Reason: Insomnia Methylprednisolone Sodium Succinate (Methylprednisolone Sod Succ 40 Mg/Ml Vial) 40 mg IVPUSH Q12H [facility] Morphine Sulfate (Morphine Sulfate 4 Mg/Ml Cartridge) 2 mg IVPUSH Q4H PRN; Protocol PRN Reason: Pain, Severe (Pain Scale 7-10) Ondansetron HCl (Ondansetron Hcl 4 Mg/2 Ml Vial) 4 mg IVPUSH Q8H PRN PRN Reason: Nausea and Vomiting Oxycodone HCl (Oxycodone Hcl Immed Release 5 Mg Tablet) 5 mg PO Q6H PRN PRN Reason: Pain, Moderate(Pain Scale 4-6) Sodium Chloride (0.9 % Sodium Chloride Flush 3 Ml Syringe) 3 ml IVFLUSH QSHIFT [facility] Home Medications ?Medication ?Instructions ?Recorded ?Confirmed ?Last Taken ?Type milnacipran 50 mg tablet (Savella) 50 mg PO BID 01/18/22 02/17/24 02/06/24 History omeprazole 20 mg capsule,delayed 20 mg PO DAILY@0630 01/18/22 02/17/24 02/06/24 History release paroxetine HCl 20 mg tablet 40 mg PO BID 01/18/22 02/17/24 02/06/24 History simvastatin 20 mg tablet 20 mg PO BEDTIME 02/17/22 02/17/24 02/06/24 History albuterol sulfate 90 mcg/actuation 2 puff inhalation Q6H PRN sob 06/22/23 02/17/24 02/06/24 History aerosol inhaler (Ventolin HFA) buprenorphine 2 mg-naloxone 0.5 mg 1 film sublingual DAILY 07/09/23 02/17/24 02/06/24 History sublingual film (Suboxone) docusate sodium 100 mg capsule 100 mg PO BEDTIME PRN stool 07/09/23 02/17/24 02/06/24 History softener umeclidinium 62.5 mcg-vilanterol 1 inh inhalation DAILY 07/09/23 02/17/24 02/06/24 History 25 mcg/actuation powdr for inhalation (Anoro Ellipta) ipratropium 0.5 mg-albuterol 3 mg 3 ml inhalation Q6H PRN wheezing 10/18/23 02/17/24 02/06/24 History (2.5 mg base)/3 mL nebulization soln acetaminophen 500 mg tablet 500 mg PO DAILY PRN Pain 11/03/23 02/17/24 02/06/24 History furosemide 40 mg tablet 40 mg PO DAILY 01/19/24 02/17/24 02/06/24 History nicotine 21 mg/24 hr daily 21 mg transdermal DAILY PRN 01/19/24 02/17/24 02/06/24 History transdermal patch Smoking Cessation buprenorphine 2 mg-naloxone 0.5 mg 1 film sublingual DAILY PRN Pain 01/31/24 02/17/24 02/06/24 History sublingual film (Suboxone) Physical Exam Vital Signs and Narrative: Vital Signs: Last Vital Signs Temp 98.7 F 02/17/24 08:53 Pulse 120 H 02/17/24 08:53 Resp 24 H 02/17/24 08:53 BP 157/108 H 02/17/24 08:53 Pulse Ox 96 02/17/24 08:53 O2 Del Method Room Air 02/17/24 08:53 O2 Flow Rate 3 02/17/24 07:18 BMI result Body Mass Index 33.9 General: AOx3, no acute distress Resp: mild wheezing bilaterally CVS: S1, S2, RRR GI: +BS, NT, no distention Skin: Warm, diaphoretic Extremities: No edema Psych: Appropriate affect Const: General: No confusion Orientation/consciousness: No confusion Neuro: General: No confusion Results Labs 02/17/24 04:32 02/17/24 04:32 Labs: Laboratory Results - last 24 hr 02/17/24 02/17/24 02/17/24 04:32 04:40 06:46 MCV 95.8 MCH 30.0 MCHC 31.3 RDW 15.9 Plt Count 160 MPV 9.7 Immature Gran % (Auto) 3.0 H Neut % (Auto) 72.3 Lymph % (Auto) 11.3 L L[place] % (Auto) 12.0 H Eos % (Auto) 1.0 Baso % (Auto) 0.4 Lymph # (Auto) 1.2 Loving # (Auto) 1.3 H Eos # (Auto) 0.1 Baso # (Auto) 0.0 Abs Immat Gran (auto) 0.32 H Absolute Neuts (auto) 7.8 Absolute Nucleated RBC 0.020 H Nucleated RBC % (auto) 0.2 VBG pH 7.43 VBG pCO2 61 VBG pO2 60 VBG HCO3 41 H VBG O2 Saturation 90.0 VBG Base Excess 14.6 Anion Gap 20 Estim Creat Clear Calc 56.7 Estimated GFR 45 Random Glucose 199 H Lactic Acid 2.6 H* Lactic Acid F/U @ 2Hr 2.1 H* Lactic Acid F/U @ 4Hr Calcium 9.8 Magnesium 2.0 Total Bilirubin 0.4 Direct Bilirubin 0.2 AST 26 ALT 34 H Alkaline Phosphatase 54 Troponin I High Sens 111.8 H* D 109.5 H* B-Natriuretic Peptide 488 H Total Protein 6.3 L Albumin 4.0 Lipase 46 Influenza Type A (PCR) NEGATIVE Influenza Type B (PCR) NEGATIVE RSV RNA Qual (PCR) NEGATIVE SARS-CoV-2 RNA (RT-PCR) NEGATIVE 02/17/24 09:16 MCV MCH MCHC RDW Plt Count MPV Immature Gran % (Auto) Neut % (Auto) Lymph % (Auto) Loving % (Auto) Eos % (Auto) Baso % (Auto) Lymph # (Auto) Loving # (Auto) Eos # (Auto) Baso # (Auto) Abs Immat Gran (auto) Absolute Neuts (auto) Absolute Nucleated RBC Nucleated RBC % (auto) VBG pH VBG pCO2 VBG pO2 VBG HCO3 VBG O2 Saturation VBG Base Excess Anion Gap Estim Creat Clear Calc Estimated GFR Random Glucose Lactic Acid Lactic Acid F/U @ 2Hr Lactic Acid F/U @ 4Hr 2.4 H* Calcium Magnesium Total Bilirubin Direct Bilirubin AST ALT Alkaline Phosphatase Troponin I High Sens B-Natriuretic Peptide Total Protein Albumin Lipase Influenza Type A (PCR) Influenza Type B (PCR) RSV RNA Qual (PCR) SARS-CoV-2 RNA (RT-PCR) Imaging Radiologist's Impressions: Impressions Chest X-Ray 02/17/24 04:26 IMPRESSION: 1. Left lung base opacity which may represent atelectasis or infiltrate. 2. Chronic pleural opacity extending to the left upper lung field. Electronically signed by: Cirilo Carmichael MD 02/17/2024 05:26 AM [facility] Assessment and Plan (1) Acute and chronic respiratory failure: Qualifiers: Respiratory failure complication: hypoxia and hypercapnia Qualified Code(s): J96.21 - Acute and chronic respiratory failure with hypoxia; J96.22 - Acute and chronic respiratory failure with hypercapnia Status: Acute (2) Atrial fibrillation with rapid ventricular response: Status: Acute (3) COPD with acute exacerbation: Status: Acute (4) Pneumonitis: Status: Acute (5) Obesity (BMI 30-39.9): Status: Chronic Plan Pt is a 63-year-old female with a past medical history significant for non small-cell lung cancer (s/p LITA/RUL lobectomies) with mets on palliative chemotherapy, breast cancer, depression, hepatitis-C, HTN, CHF (recent echo, EF 60-65%), COPD with chronic respiratory failure on 3 L O2 at home, AFib (on Eliquis, diltiazem and metoprolol), hypothyroid and chronic pain on Suboxone, who presented to the ED this morning due to sudden chest pain and SOB this morning after waking up to urinate. Multiple recent admissions, most recently discharged on for acute COPD exacerbation, acute CHF exacerbation and possible pneumonitis secondary to PDL1 inhibitor. She was discharged home with a prednisone taper and Augmentin. Chest x-ray today without obvious pneumonia, stable chronic pleural effusion left upper lung. BNP mildly elevated at 4.88, troponin elevated yet stable on repeat an EKG with AFib with RVR. Wheezing on exam and improvement with steroids and breathing treatments. Pulmonary embolism unlikely given compliant Eliquis use. Differential diagnosis includes: COPD exacerbation, pneumonitis, pneumonia, pulmonary embolism Acute on chronic hypercapnic respiratory failure secondary to COPD exacerbation versus pneumonitis - tachycardia secondary to AFib and tachypnea secondary to respiratory failure, no sepsis - no obvious infection on chest x-ray, no leukocytosis - lactate minimally elevated, blood cultures pending - EKG with AFib with RVR, mild elevation in troponin stable - BNP mildly elevated compared to previous, recently discharged with CHF exacerbation, no lower extremity edema or pulmonary edema on chest x-ray - improvement with Solu-Medrol and levalbuterol/ipratropium in ED, no longer on BiPAP and maintaining - given azithromycin in ED, no obvious source of infection, we will discontinue antibiotics - continue Solu-Medrol 40 mg q.12h and levalbuterol/ipratropium Q4H while awake - monitor CBC and BMP - oncology consult due to pneumonitis possibly related to PDL1 inhibitor a fib with RVR - multiple recent episodes - restart home diltiazem 240mg PO QD, metoprolol 150mg PO QD - discontinue diltiazem drip when HR reaches 90 - continue eliquis - trop mildly increased without significant change on repeat CHF - no acute exacerbation - continue furosemide HTN - restart diltiazem and metoprolol as above hypothyroid - continue levothyroxine HLD - continue simvastatin chronic pain - hold Suboxone for now as she was given pain management in ED Full code VTE prophylaxis: Eliquis Patient with acute on chronic hypercapnic respiratory failure secondary to COPD exacerbation versus pneumonitis again with AFib RVR, with multiple recent admissions secondary to failed outpatient treatment. She will require IV steroids, breathing treatments and monitoring for at least 2 midnights stay. Quality Stroke Does the patient have a stroke diagnosis?: No VTE Prior VTE?: No VTE Risk Level:: Medical - moderate - high VTE Device Contraindication: N/A - Device Ordered VTE Drug Contraindication: N/A - Med Ordered
[2024-02-17] MEDS: levalbuterol HCL 1.25 MG, Ipratropium Bromide 0.5 MG INHALE ×3 (11:44→19:13)
--- NOTE | 2024-02-17 11:51 | PC.NURSE ---
cardizem drip continues to infuse @ 15mls/hr at this time. HR range between 100-135bpm. pt continues to deny any chest pain/palpitations. pt remains on 3L via NC (baseline) - both sob/wob noted. pt turned/repositioned upright to promote patent airway. RT bedside giving pt breathing treatment. pt extremely diaphoretic to the point where hospital attire/sheets/pads needed to be applied. pt reporting she has to urinate but is afraid to ambulate d/t feeling more sob. purewick now in place at this time. pt waiting for bed assignment. plan of care ongoing. call moya placed within reach.
--- NOTE | 2024-02-17 11:53 | MHC.EDTECH ---
pt sweaty, bedding and gown was soiled with sweat, this tech and RN provided pt with clean linen, gown, and pads, pt resting comfortably, all needs met at this time
[2024-02-17 12:07] LABS: Glucose, Whole Blood 221 mg/dL (60-115)
--- NOTE | 2024-02-17 12:43 | PC.NURSE ---
PO diltiazem and PO metoprolol not administered per provider order as pt remains on cardizem drip at this time. per provider order, PO medication will be resumed when HR reaches 90bpm and then cardizem drip will be discontinued.
[2024-02-17] MEDS: Furosemide 40 MG TABLET PO (12:46)
[2024-02-17] MEDS: dilTIAZem HCL 125 MG in 0.9 % Sodium Chloride 100 ML 15 MG IVCONT ×2 (14:37→23:21)
[2024-02-17] MEDS: methylPREDNISolone Sod Succ 40 MG/ML VIAL IVPUSH (18:11)
[2024-02-17] MEDS: 0.9 % Sodium Chloride Flush 3 ML SYRINGE IVFLUSH ×2 (18:12→21:22)
[2024-02-17] MEDS: guaiFENesin DM 600/30 1 TAB TAB.ER.12H PO (21:22)
[2024-02-17] MEDS: Atorvastatin Calcium 10 MG TABLET PO (21:22)
[2024-02-17] MEDS: Apixaban 5 MG TABLET PO (21:22)
[2024-02-17] MEDS: PARoxetine HCL 40 MG TABLET PO (21:22)
[2024-02-18] VITALS (12 sets, daily range): BP systolic 126–149; BP diastolic 77–102; PULSE 56–131; RESP 17–20; TEMP 36.1–36.7; O2SAT 91–97
--- NOTE | 2024-02-18 00:36 | PM.EVENT ---
Event Note Date of Service: 02/18/24 Event Note: 1 of 2 sets of blood culture positive for GPC lung could be a source of infection, it could also be contaminent given no clear signs of infection To start Vancomycin for now and repeat blood cultures pending finalizing current blood cultures Time Spent With Patient Time: Total time managing care of this patient today ____ minutes.
[2024-02-18] MEDS: vancomycin/NS 2,000 MG/500 ML PLAST..BAG 250 MG IV (01:45)
[2024-02-18] MEDS: Acetaminophen 325 MG TABLET 650 MG PO ×2 (05:16→22:26)
[2024-02-18] MEDS: Omeprazole 20 MG CAPSULE.DR PO (05:16)
[2024-02-18] MEDS: methylPREDNISolone Sod Succ 40 MG/ML VIAL IVPUSH ×2 (05:16→17:23)
[2024-02-18] MEDS: Levothyroxine Sodium 25 MCG TABLET PO (05:16)
[2024-02-18 07:25] LABS: Basophils Percent Auto 0.2 % (0-2); Hematocrit 35.1 % (37.0-47.0); Hemoglobin 11.2 g/dl (12.0-16.0); Imm Gran Abs Auto 0.15 X10*3/uL (0.00-0.03); Imm Gran Pct Auto 1.3 % (0.0-0.4); Lymphocytes Absolute Auto 0.4 X10*3/uL (1.2-4.9); Lymphocytes Percent Auto 3.6 % (20-40); MANUAL DIFF FLAG NO; Mean Corpuscular HGB Conc 31.9 g/dl (31.0-35.0); Mean Corpuscular Hemoglobin 29.8 pg (27.0-33.0); Mean Corpuscular Volume 93.4 fL (80.0-98.0); Monocytes Absolute Auto 0.7 X10*3/uL (0.1-1.2); Monocytes Percent Auto 6.2 % (2-11); Neutrophils Absolute Auto 10.3 x10*3/uL (2.0-8.3); Neutrophils Percent Auto 88.7 % (45-73); Platelet Count 156 X10*3/uL (160-400); Red Blood Count 3.76 X10*6/uL (4.20-5.50); Red Cell Distribution Width 15.5 % (11.0-16.0); White Blood Count 11.5 X10*3/uL (4.8-10.8)
[2024-02-18 07:46] LABS: Blood Urea Nitrogen 33 mg/dL (9-16); Calcium 9.7 mg/dL (8.4-10.2); Creatinine Clr Calc Pharmacy 66.6; Estimated Glomerular Filt Rate 54; Glucose Random 235 mg/dL (60-115)
[2024-02-18] MEDS: Metoprolol Succinate ER 50 MG TAB.ER.24H 150 MG PO (07:59)
[2024-02-18] MEDS: dilTIAZem HCL CD 240 MG CAP.ER.DEG PO (07:59)
[2024-02-18] MEDS: Potassium Chloride ER 20 MEQ TAB.ER.PRT PO (07:59)
[2024-02-18] MEDS: guaiFENesin DM 600/30 1 TAB TAB.ER.12H PO ×2 (07:59→22:26)
[2024-02-18] MEDS: PARoxetine HCL 40 MG TABLET PO ×2 (07:59→22:28)
[2024-02-18] MEDS: Furosemide 40 MG TABLET PO (07:59)
[2024-02-18] MEDS: Apixaban 5 MG TABLET PO ×2 (07:59→22:28)
--- NOTE | 2024-02-18 07:59 | PM.HEMONCCN ---
Subjective - Subjective Chief complaint: Shortness of breath Patient: known to practice within the last 3 years Consult date: 02/18/24 Primary Care Provider: Unknown Physician Medical Summary: Diagnosis: Metastatic lung cancer Right upper lobe Wedge resection in July 2019, adenocarcinoma Left lower lobe wedge resection in January 2021 adenocarcinoma She was diagnosed with right upper lobe lung adenocarcinoma and underwent right upper lobectomy/mediastinal lymphadenectomy on 08/03/2019 at [facility]. Pathology revealed invasive adenocarcinoma, tumor size 1.3 x 0.9 x 0.5 cm, moderately differentiated, tumor invades visceral pleura, no satellite nodules. Vascular invasion present, margins negative. Pathological TNM stage PT2a, pN0, MX. Surveillance CT chest with contrast performed 12/26/2020 showed stable postsurgical changes, 2 new/increasing suspicious areas in the right lower lobe nodules. Interval increase in suspicious appearing cavitary left upper lobe nodule. Numerous bilateral small ground-glass nodules. On 01/21/2021 patient underwent left upper lobe wedge resection and lymph node biopsies. Pathology revealed adenocarcinoma tumor size 1.8 x 1.8 x 1.1 cm. Single focus, G2 moderately differentiated, visceral pleural invasion identified, lymphovascular invasion not identified. Margins negative. Two lymph nodes were examined, negative for carcinoma. Pathological TNM stage pT2a pN0. Molecular studies to be obtained from [facility], this was ordered last week. Stage IB cancer without any high-risk features such as lymphovascular invasion. Surveillance imaging with CT chest/abdomen and pelvis performed in September 2021 showed new right lower lobe mass measuring 1.7 x 1.3 cm suspicious for new/metastatic lesion. Sub pleural ground-glass attenuation measuring 1.4 x 1.1 cm similar to previous exam. Second lesion in the right lower lobe posterior basal segment measuring 1.6 x 1.4 cm which is also suspicious. Subcarinal lymph nodes largest measuring 1.3 x 2.1 cm and large pretracheal lymph node measuring 1.5 x 1.5 cm all suspicious for disease recurrence.. CT abdomen showed stable 1.4 cm right adrenal lesion. Extensive fine interstitial markings throughout right lower lobe likely post radiation changes. PET-CT was recommended for further evaluation. Remote history of radiation for her right breast for cancer treatment. PET-CT performed 10/14/21 showed extensive FDG avid consolidation in the right middle lobe, worse than CT scan in September. Inflammatory versus infectious etiology along with malignancy. New FDG avid mediastinal lymphadenopathy suspicious for recurrence or metastatic malignancy. FDG avid vertebral lesions in C7 and T7 suspicious for metastasis. Stable right adrenal nodule showed no FDG activity. Patient started on combination therapy with pembrolizumab, carboplatin and pemetrexed on 11/13/2021. She is on denosumab 120 mg subQ monthly for bone metastasis. Repeat PET-CT Performed 03/24/2022 showed interval resolution of previously documented right FDG avid airspace disease involving right middle and right lower lobes as well as FDG avid mediastinal lymph nodes. Brain MRI from 03/2022 showed 3 mm enhancement on the left parietal lobe and 2 mm enhancement in the right parietal lobe concerning for small metastatic foci. Repeat PET-CT in July 2022 shows no FDG avid lesions and stable from prior scan in March 2022. Brain MRI at [facility] in September 2022 was negative. PET-CT performed at [facility] on 03/11/2023 showed postsurgical changes. 2.3 x 1.2 cm opacity in right lower lobe with faint FDG uptake of 2.2. No other FDG avid metastatic disease was seen. HPI - Consult Narrative Reason for consult: History of lung cancer, ?pneumonitis secondary to IO Narrative: Elida Schumacher is a 63 year old female past medical history significant for non small-cell lung cancer (s/p LITA/RUL lobectomies) with mets on palliative chemotherapy, breast cancer, depression, hepatitis-C, HTN, CHF (recent echo, EF 60-65%), COPD with chronic respiratory failure on 3 L O2 at home, AFib (on Eliquis, diltiazem and metoprolol), hypothyroid and chronic pain on Suboxone, who presented to the ED this morning due to sudden chest pain and SOB this morning after waking up to urinate. She called EMS and O2 saturation was in the 70s and she was transitioned to CPAP. She had good improved range of saturations after this. She denies any headache, sore throat, nasal congestion, runny nose, cough, abdominal pain, nausea, vomiting, diarrhea. No recent sick contacts. She was recently discharged on 02/13/2024 for acute COPD exacerbation and acute CHF exacerbation. Prior to this she also had a recent admission for AFib with RVR discharged on 02/02 and acute on chronic respiratory failure due to pneumonia and COPD exacerbation discharged on 01/28. She notes improvement with the prednisone and breathing treatment. Chest pain has resolved and shortness of breath have improved. Her last treatment with pembrolizumab was in December 2023. She has had numerous admissions to the hospital for respiratory and heart-/atrial fibrillation related problems. Review of Systems - Constitutional Reports as per HPI - Neurologic Denies confusion, Denies dizziness, Denies headache(s) [facility] Medical History: Medical History (Last Reviewed 02/17/24 @ 14:47 by Kaylynn Plasencia RN) Bilateral lung cancer Cancer of upper lobe of left lung Onset Date: ~2020 Cancer of upper lobe of right lung Onset Date: ~2019 COPD (chronic obstructive pulmonary disease) Depression GERD (gastroesophageal reflux disease) History of breast cancer Onset Date: ~2006 History of hepatitis C HTN (hypertension) Internal and external bleeding hemorrhoids Lung cancer New onset a-fib Obesity Pancytopenia Pneumonitis Pulmonary nodules Smoker Tubular adenoma of colon Family History: Family History (Last Reviewed 01/31/24 @ 19:48 by Santa Barrientos MD) Mother History of lung cancer Brother History of lung cancer Maternal Grandmother Breast cancer in female Maternal Aunt Breast cancer in female Daughter Thyroid cancer Surgical History: Surgical History (Last Reviewed 02/17/24 @ 14:47 by Kaylynn Plasencia RN) History of anterior colporrhaphy Onset Date: ~2016 History of back surgery Onset Date: ~2011 History of colonoscopy Onset Date: ~2014 History of hemorrhoidectomy Onset Date: ~2019 History of lobectomy of lung Onset Date: ~2019 History of lumpectomy of right breast Onset Date: ~2006 History of lung surgery Onset Date: ~2020 History of tubal ligation Social History: Social History (Last Reviewed 02/17/24 @ 06:22 by Stephanie Somers DO) Living Situation History: Household Members: Spouse Household Members Other:: 2 Housing: Apartment Are you a primary menagerie caretaker to a significant other at home: No Do you presently have visiting nurse or other home services: Yes Do you presently have visiting nurse or other home services comment: Nurse, PT Alcohol History: Unable to assess alcohol history related to: Unable to respond Alcohol History Details: 1. How often do you have a drink containing alcohol?: a. Never 3. How often do you have six or more drinks on one occasion?: a. Never AUDIT-C Alcohol total score: 0 Currently Displaying Signs/Symptoms of Alcohol Withdrawal: No Tobacco History: Patient Tobacco Use Status: Former Tobacco user Tobacco use type: Cigarette Cigarette Packs Per Day: 1 Years Smoked: 50 Smoked in Last 30 Days: No Smoking End Date: 11/01/23 e-Cigarette/Vaping Use: Former Use Second Hand Smoke Exposure: Yes Substance Use History: Use of substances other than those prescribed or required for medical reasons: No Substance Use Type: Marijuana Substance Use Frequency: Occasionally Last Used Substance: Days (ago) Currently Displaying Signs/Symptoms of Drug Intoxication Withdrawal: No Domestic Abuse History: Have you been hit, kicked, punched, or otherwise hurt by someone within the past year? If so, by whom?: No Do you feel safe in your current relationship?: Yes Is there a partner from a previous relationship who is making you feel unsafe now?: No Are you made to feel afraid or neglected: No Healthcare Practices: Mormonism Healthcare Practices: Muslim Advance Directives: Advance Directives: Yes Advance Directives on File: Yes Advance Directives Date on File: 02/02/22 Homicidal Assessment: Do you have a plan to hurt others: No Plan Nutrition Assessment: Recently lost weight without trying: No How much weight loss: Not applicable Eating poorly because of decreased appetite: No Nutrition screen score: 0 Patient : No : No Poor oral hygiene: No Occupation Assessmet: service: No Current occupational status: disabled Current occupational exposures/hazards: No Home Medications and Allergies Current Medications: Current Medications Acetaminophen (Acetaminophen 325 Mg Tablet) 650 mg PO Q6H PRN PRN Reason: Pain, Mild (Pain Scale 1-3), fever or headache Last Admin: 02/18/24 05:16 Dose: 650 mg Apixaban (Apixaban 5 Mg Tablet) 5 mg PO BID [facility] Last Admin: 02/17/24 21:22 Dose: 5 mg Atorvastatin Calcium (Atorvastatin Calcium 10 Mg Tablet) 10 mg PO BEDTIME [facility] Last Admin: 02/17/24 21:22 Dose: 10 mg Calcium Carbonate (Calcium Carbonate 750 Mg Tab.Chew) 750 mg PO Q4H PRN PRN Reason: Heartburn Levalbuterol HCl 1.25 mg/ (Ipratropium [place] 0.5 mg) 0 mg INHALE RQ4H WHILE AWAKE [facility] Last Admin: 02/17/24 19:13 Dose: 5.5 dose Diltiazem HCl (Diltiazem Hcl Cd 240 Mg Cap.Er.Deg) 240 mg PO DAILY [facility]; Protocol Last Admin: 02/17/24 12:43 Dose: Not Given Folic Acid (Folic Acid 1 Mg Tablet) 1 mg PO DAILY [facility] Furosemide (Furosemide 40 Mg Tablet) 40 mg PO DAILY [facility]; Protocol Last Admin: 02/17/24 12:46 Dose: 40 mg Guaifenesin/Dextromethorphan (Guaifenesin Dm 600/30 1 Tab Tab.Er.12h) 1 tab PO BID [facility] Last Admin: 02/17/24 21:22 Dose: 1 tab Diltiazem HCl 125 mg/ Sodium (Chloride) 125 mls @ 0 mls/hr IVCONT .Q0M [facility]; Protocol Last Admin: 02/17/24 23:21 Dose: 15 mg/hr, 15 mls/hr Levothyroxine Sodium (Levothyroxine Sodium 25 Mcg Tablet) 25 mcg PO DAILY@0600 [facility] Last Admin: 02/18/24 05:16 Dose: 25 mcg Magnesium Hydroxide (Milk Of Magnesia 30 Ml Oral.Susp) 30 ml PO DAILY PRN PRN Reason: Constipation Magnesium Oxide (Magnesium Oxide 400 Mg Tablet) 400 mg PO DAILY [facility] Melatonin (Melatonin 3 Mg Tablet) 6 mg PO BEDTIME PRN PRN Reason: Insomnia Methylprednisolone Sodium Succinate (Methylprednisolone Sod Succ 40 Mg/Ml Vial) 40 mg IVPUSH Q12H [facility] Last Admin: 02/18/24 05:16 Dose: 40 mg Metoprolol Succinate (Metoprolol Succinate Er 50 Mg Tab.Er.24h) 150 mg PO DAILY [facility]; Protocol Last Admin: 02/17/24 12:43 Dose: Not Given Morphine Sulfate (Morphine Sulfate 4 Mg/Ml Cartridge) 2 mg IVPUSH Q4H PRN; Protocol PRN Reason: Pain, Severe (Pain Scale 7-10) Nicotine (Nicotine 21 Mg Patch.Td24) 21 mg TRANSDERMA DAILY PRN PRN Reason: Smoking Cessation Non-Formulary Medication (Milnacipran [Savella]) 50 mg PO BID [facility] Omeprazole (Omeprazole 20 Mg Capsule.Dr) 20 mg PO DAILY@0630 [facility] Last Admin: 02/18/24 05:16 Dose: 20 mg Ondansetron HCl (Ondansetron Hcl 4 Mg/2 Ml Vial) 4 mg IVPUSH Q8H PRN PRN Reason: Nausea and Vomiting Oxycodone HCl (Oxycodone Hcl Immed Release 5 Mg Tablet) 5 mg PO Q6H PRN PRN Reason: Pain, Moderate(Pain Scale 4-6) Paroxetine HCl (Paroxetine Hcl 40 Mg Tablet) 40 mg PO BID [facility] Last Admin: 02/17/24 21:22 Dose: 40 mg Pharmacy Consult (Consult Rx Vancomycin Dosing) 1 each MISCELLANE DAILY PRN PRN Reason: Consult order Potassium Chloride (Potassium Chloride Er 20 Meq Tab.Er.Prt) 20 meq PO DAILY [facility] Sodium Chloride (0.9 % Sodium Chloride Flush 3 Ml Syringe) 3 ml IVFLUSH QSHIFT [facility] Last Admin: 02/17/24 21:22 Dose: 3 ml Home Medications ?Medication ?Instructions ?Recorded ?Confirmed ?Type milnacipran 50 mg tablet (Savella) 50 mg PO BID 01/18/22 02/17/24 History omeprazole 20 mg capsule,delayed 20 mg PO DAILY@0630 01/18/22 02/17/24 History release paroxetine HCl 20 mg tablet 40 mg PO BID 01/18/22 02/17/24 History simvastatin 20 mg tablet 20 mg PO BEDTIME 02/17/22 02/17/24 History albuterol sulfate 90 mcg/actuation 2 puff inhalation Q6H PRN sob 06/22/23 02/17/24 History aerosol inhaler (Ventolin HFA) buprenorphine 2 mg-naloxone 0.5 mg 1 film sublingual DAILY 07/09/23 02/17/24 History sublingual film (Suboxone) docusate sodium 100 mg capsule 100 mg PO BEDTIME PRN stool 07/09/23 02/17/24 History softener umeclidinium 62.5 mcg-vilanterol 1 inh inhalation DAILY 07/09/23 02/17/24 History 25 mcg/actuation powdr for inhalation (Anoro Ellipta) ipratropium 0.5 mg-albuterol 3 mg 3 ml inhalation Q6H PRN wheezing 10/18/23 02/17/24 History (2.5 mg base)/3 mL nebulization soln acetaminophen 500 mg tablet 500 mg PO DAILY PRN Pain 11/03/23 02/17/24 History furosemide 40 mg tablet 40 mg PO DAILY 01/19/24 02/17/24 History nicotine 21 mg/24 hr daily 21 mg transdermal DAILY PRN 01/19/24 02/17/24 History transdermal patch Smoking Cessation buprenorphine 2 mg-naloxone 0.5 mg 1 film sublingual DAILY PRN Pain 01/31/24 02/17/24 History sublingual film (Suboxone) Allergies Allergy/AdvReac Type Severity Reaction Status Date / Time lisinopril [LISINOPRIL] Allergy Severe SWELLING- Verified 02/17/24 04:47 ANGIOEDEMA codeine [CODEINE] Allergy Intermediate VOMITING/HIVES, Verified 02/17/24 04:47 vomiting, hives Physical Exam Vital signs: Vital Signs Temp 97.2 F 02/18/24 07:00 Pulse 95 02/18/24 07:00 Resp 20 02/18/24 07:00 BP 149/94 H 02/18/24 07:00 Pulse Ox 96 02/18/24 07:00 O2 Del Method Nasal Cannula 02/18/24 07:00 O2 Flow Rate 2 02/18/24 07:00 Intake & Output 02/17/24 02/18/24 02/18/24 18:59 06:59 18:59 Intake Total 336.917 / 961.917 625 / 961.917 Output Total 600 / 2300 1700 / 2300 Balance -263.083 / -1338.083 -1075 / -1338.083 Urine Output (Average ml/kg/hr) 0.51 1.44 Intake: Intake, Oral Amount 240 / 240 Intake, IV Amount 96.917 / 721.917 625 / 721.917 vancomycin/NS 2,000 mg In 500 500 / 500 ml @ 250 mls/hr IV ONCE ONE Rx# :[id number] dilTIAZem HCL 125 mg In 0.9 % 96.917 / 221.917 125 / 221.917 Sodium Chloride 100 ml @ Per Protocol IVCONT .Q0M [facility] Rx#: [id number] Output: Output, Urine Amount 600 / 2300 1700 / 2300 Other: Dinner % Eaten 100% Eating (Feeding) Ability Independent Urine purewick purewick Urine Color Yellow Yellow Weight 98.1 kg Narrative: Obese, appears slightly dyspneic, Facial swelling - Constitutional Present: mild distress, obese - Routine HEENT Exam Head: Present: normal inspection Eye: Present: conjunctival injection - Routine Neck Exam Present: supple, trachea midline - Routine Respiratory Exam Present: decreased breath sounds, respiratory distress, rhonchi - Routine Cardiovascular Exam Cardiovascular: Present: S1, S2, tachycardia - Routine Abdominal Exam Present: soft - Routine Skin Exam Present: intact - Routine Neurological Exam Present: alert, oriented X3 Hem/Onc Consult Result - Labs CBC & Chem 7: 02/18/24 07:13 02/18/24 07:13 Labs: Short CBC 02/18/24 Range/Units 07:13 WBC 11.5 H (4.8-10.8) X10*3/uL Hgb 11.2 L (12.0-16.0) g/dl Hct 35.1 L (37.0-47.0) % Plt Count 156 L (160-400) X10*3/uL BMP 02/18/24 07:13 BUN 33 H Creatinine 1.04 Calcium 9.7 Assessment and Plan Patient Active problem list reviewed?: Yes (1) Non-small cell cancer of right lung Status: Chronic Assessment and plan: 1. This is a pleasant 63-year-old woman with bilateral lung adenocarcinoma. She has been diagnosed with recurrent metastatic lung cancer in the right with bone and brain metastasis in september 2021. Patient started on combination therapy with pembrolizumab, carboplatin and pemetrexed on 11/13/2021. PET-CT performed in August 2023 showed no significant change, right lower lobe lesion measuring 2.3 cm which is very mildly PET avid. Patient has been on single agent pembrolizumab for over a year. She has not received any immunotherapy since December of 2023. She has had multiple admissions for pneumonia, COPD exacerbation and atrial fibrillation. She has been on steroids intermittently for last 3 months. Her symptoms are multifactorial etiology, she may have a component of pneumonitis related to immunotherapy but this should resolve by now as she has not had any immunotherapy for over 2 months. I have discussed with the patient that she needs to go to rehabilitation center, she is not eligible to receive any treatment for her cancer at this time. I thank you for the consultation. - Time Spent With Patient Time Spent with Patient (in minutes): 25 Additional Coding: - Additional E/M codes Complex E/M visit Add On: CPT G2211
[2024-02-18] MEDS: Magnesium Oxide 400 MG TABLET PO (08:00)
[2024-02-18] MEDS: Folic Acid 1 MG TABLET PO (08:00)
[2024-02-18 08:02] LABS: Anion Gap 21 (12-20); Carbon Dioxide 29 mmol/L (22-29); Chloride 96 mmol/L (96-108); Sodium 142 mmol/L (135-145)
[2024-02-18] MEDS: levalbuterol HCL 1.25 MG, Ipratropium Bromide 0.5 MG INHALE ×4 (08:03→18:48)
[2024-02-18] MEDS: dilTIAZem HCL 125 MG in 0.9 % Sodium Chloride 100 ML 15 MG IVCONT (08:04)
--- NOTE | 2024-02-18 09:14 | PHA.PROG ---
Admission Date/Time: February 17, 2024 11:32 Indication: bacteremia Weight in k.1 kg Adjusted body weight in Kg: [place] body weight in Kg: Obesity Dosing Indication % IBW: Serum Creatinine - Last 168 Hours 02/17/24 02/18/24 04:32 07:13 Creatinine 1.22 1.04 Estimated CrCl and GFR - Last 168 Hours 02/17/24 02/18/24 04:32 07:13 Estim Creat Clear Calc 56.7 66.6 Estimated GFR 45 54 Vancomycin Loading Dose: 2000 Current Vancomycin Dosing Regimen: 1500 mg Q24h Vancomycin Monitoring using AUC goal of 400 - 600 range with trough as surrogate marker: 551 Date and Time for next Vancomycin Level to be drawn: 02/19 @0600 Pharmacist Comments on Vancomycin Plan: going with higher dosing for the first dose as interval between load and first dose is >24 hours to allow pharmacy to follow Vancomycin dosing will take advantage of [employer] as a clinical decision support tool that uses Bayesian modeling to calculate individual patient's pharmacokinetic parameters and forecast the patient's drug concentration time course with the target goal AUC 24 range of 400 - 600 mg/L/hr.
--- NOTE | 2024-02-18 10:34 | MHC.CM.PN ---
Pt lives with her S.O., she was here, [place] on 01/29/24 with home care services from [facility]. She has home O2 from [facility]. HCP on file and confirmed, jenny Benavides. Pt goes to [facility] in [place] for Suboxone. She said that she thinks she may benefit from STR before going home. DCP: home with services or STR. CM to follow and assist with DC plan.
--- NOTE | 2024-02-18 10:45 | P.PNIM_ITS ---
Subjective Subjective Date of Service: 02/18/24 Interval History: wheezy, sob, a bit better Physical Exam 2 Vital Signs: Vital Signs: Last Vital Signs Temp 97.2 F 02/18/24 07:00 Pulse 91 02/18/24 08:06 Resp 20 02/18/24 08:06 BP 149/94 H 02/18/24 07:00 Pulse Ox 96 02/18/24 07:00 O2 Del Method Nasal Cannula 02/18/24 07:00 O2 Flow Rate 2 02/18/24 07:00 BMI result Body Mass Index 33.9 General: AO X 3, no acute distress Resp: wheezing bilateral, no accessory muscles used CVS: S1,S2,Rapid irregular GI: soft, non tender, non distended Neuro: motor grossly intact, alert Psych: appropriate affect, appropriate insight Objective Data Active Medications Acetaminophen (Acetaminophen 325 Mg Tablet) 650 mg PO Q6H PRN PRN Reason: Pain, Mild (Pain Scale 1-3), fever or headache Last Admin: 02/18/24 05:16 Dose: 650 mg Documented By: NGOZI Apixaban (Apixaban 5 Mg Tablet) 5 mg PO BID [facility] Last Admin: 02/18/24 07:59 Dose: 5 mg Documented By: CLARI Atorvastatin Calcium (Atorvastatin Calcium 10 Mg Tablet) 10 mg PO BEDTIME [facility] Last Admin: 02/17/24 21:22 Dose: 10 mg Documented By: NGOZI Calcium Carbonate (Calcium Carbonate 750 Mg Tab.Chew) 750 mg PO Q4H PRN PRN Reason: Heartburn Levalbuterol HCl 1.25 mg/ (Ipratropium [place] 0.5 mg) 0 mg INHALE RQ4H WHILE AWAKE [facility] Last Admin: 02/18/24 08:03 Dose: 1 dose Documented By: BUSTER Diltiazem HCl (Diltiazem Hcl Cd 240 Mg Cap.Er.Deg) 240 mg PO DAILY [facility]; Protocol Last Admin: 02/18/24 07:59 Dose: 240 mg Documented By: CLARI Folic Acid (Folic Acid 1 Mg Tablet) 1 mg PO DAILY [facility] Last Admin: 02/18/24 08:00 Dose: 1 mg Documented By: CLARI Furosemide (Furosemide 40 Mg Tablet) 40 mg PO DAILY [facility]; Protocol Last Admin: 02/18/24 07:59 Dose: 40 mg Documented By: CLARI Guaifenesin/Dextromethorphan (Guaifenesin Dm 600/30 1 Tab Tab.Er.12h) 1 tab PO BID [facility] Last Admin: 02/18/24 07:59 Dose: 1 tab Documented By: CLARI Diltiazem HCl 125 mg/ Sodium (Chloride) 125 mls @ 0 mls/hr IVCONT .Q0M [facility]; Protocol Last Titration: 02/18/24 09:40 Dose: 0 mg/hr, 0 mls/hr Documented By: CLARI Vancomycin HCl 1,500 mg/ (Sodium Chloride) 500 mls @ 333.333 mls/hr IV Q24H [facility] Levothyroxine Sodium (Levothyroxine Sodium 25 Mcg Tablet) 25 mcg PO DAILY@0600 [facility] Last Admin: 02/18/24 05:16 Dose: 25 mcg Documented By: NGOZI Magnesium Hydroxide (Milk Of Magnesia 30 Ml Oral.Susp) 30 ml PO DAILY PRN PRN Reason: Constipation Magnesium Oxide (Magnesium Oxide 400 Mg Tablet) 400 mg PO DAILY [facility] Last Admin: 02/18/24 08:00 Dose: 400 mg Documented By: CLARI Melatonin (Melatonin 3 Mg Tablet) 6 mg PO BEDTIME PRN PRN Reason: Insomnia Methylprednisolone Sodium Succinate (Methylprednisolone Sod Succ 40 Mg/Ml Vial) 40 mg IVPUSH Q12H [facility] Last Admin: 02/18/24 05:16 Dose: 40 mg Documented By: NGOZI Metoprolol Succinate (Metoprolol Succinate Er 50 Mg Tab.Er.24h) 150 mg PO DAILY [facility]; Protocol Last Admin: 02/18/24 07:59 Dose: 150 mg Documented By: CLARI Metoprolol Tartrate (Metoprolol Tartrate 5 Mg/5 Ml Vial) 5 mg IVPUSH ONCE ONE; Protocol Stop: 02/18/24 10:41 Morphine Sulfate (Morphine Sulfate 4 Mg/Ml Cartridge) 2 mg IVPUSH Q4H PRN; Protocol PRN Reason: Pain, Severe (Pain Scale 7-10) Nicotine (Nicotine 21 Mg Patch.Td24) 21 mg TRANSDERMA DAILY PRN PRN Reason: Smoking Cessation Non-Formulary Medication (Milnacipran [Savella]) 50 mg PO BID [facility] Omeprazole (Omeprazole 20 Mg Capsule.Dr) 20 mg PO DAILY@0630 [facility] Last Admin: 02/18/24 05:16 Dose: 20 mg Documented By: NGOZI Ondansetron HCl (Ondansetron Hcl 4 Mg/2 Ml Vial) 4 mg IVPUSH Q8H PRN PRN Reason: Nausea and Vomiting Oxycodone HCl (Oxycodone Hcl Immed Release 5 Mg Tablet) 5 mg PO Q6H PRN PRN Reason: Pain, Moderate(Pain Scale 4-6) Paroxetine HCl (Paroxetine Hcl 40 Mg Tablet) 40 mg PO BID [facility] Last Admin: 02/18/24 07:59 Dose: 40 mg Documented By: CLARI Pharmacy Consult (Consult Rx Vancomycin Dosing) 1 each MISCELLANE DAILY PRN PRN Reason: Consult order Potassium Chloride (Potassium Chloride Er 20 Meq Tab.Er.Prt) 20 meq PO DAILY [facility] Last Admin: 02/18/24 07:59 Dose: 20 meq Documented By: CLARI Sodium Chloride (0.9 % Sodium Chloride Flush 3 Ml Syringe) 3 ml IVFLUSH QSHIFT [facility] Last Admin: 02/18/24 08:05 Dose: Not Given Documented By: CLARI Non-Admin Reason: IV Running Labs 02/18/24 07:13 02/18/24 07:13 Labs: Laboratory Results - last 24 hr 02/17/24 02/18/24 12:03 07:13 MCV 93.4 MCH 29.8 MCHC 31.9 RDW 15.5 Plt Count 156 L MPV 10.0 Immature Gran % (Auto) 1.3 H Neut % (Auto) 88.7 H Lymph % (Auto) 3.6 L [place] % (Auto) 6.2 Eos % (Auto) 0.0 Baso % (Auto) 0.2 Lymph # (Auto) 0.4 L [place] # (Auto) 0.7 Eos # (Auto) 0.0 Baso # (Auto) 0.0 Abs Immat Gran (auto) 0.15 H Absolute Neuts (auto) 10.3 H Absolute Nucleated RBC 0.000 Nucleated RBC % (auto) 0.0 Anion Gap 21 H Estim Creat Clear Calc 66.6 Estimated GFR 54 POC Glucose 221 H Random Glucose 235 H Calcium 9.7 Microbiology Microbiology Results: Microbiology 02/17/24 04:40 Blood Culture - Preliminary Blood - Venous Prelim: GPC Gram Stain only Assessment and Plan (1) Atrial fibrillation with rapid ventricular response: Status: Acute Plan 63F pMH [id number] lung cancer, breast cancer, depression, hepatitis-C, hypertension, chronic diastolic CHF, COPD with chronic hypoxic respiratory failure on 3 L home O2, paroxysmal atrial fibrillation, hypothyroid presented with shortness of breath Acute on chronic hyper cap neck and hypoxic respiratory failure secondary to COPD with acute decompensation Continue IV steroids and nebulizers Now back to baseline O2 Paroxysmal atrial fibrillation with rapid ventricular response Weaned off diltiazem drip Continue oral to 40 mg daily and metoprolol succinate 150 mg daily Continue Eliquis Chronic diastolic CHF Euvolemic continue maintenance Lasix Hypothyroid Continue levothyroxine Stage IV [id number] lung cancer Oncology following DVT prophylaxis with Eliquis Full code reason for continued hospitalization: Still wheezing and short of breath Quality Stroke Does the patient have a stroke diagnosis?: No VTE Prior VTE?: No VTE Risk Level:: Medical - moderate - high VTE Device Contraindication: N/A - Device Ordered VTE Drug Contraindication: N/A - Med Ordered
[2024-02-18] MEDS: 0.9 % Sodium Chloride Flush 3 ML SYRINGE IVFLUSH ×2 (17:23→22:29)
[2024-02-18] MEDS: Melatonin 3 MG TABLET 6 MG PO (22:27)
[2024-02-18] MEDS: Atorvastatin Calcium 10 MG TABLET PO (22:28)
[2024-02-18] MEDS: dilTIAZem HCL 125 MG in 0.9 % Sodium Chloride 100 ML 10 MG IVCONT (23:03)
[2024-02-18] MEDS: dilTIAZem HCL 50 MG/10 ML VIAL 10 MG IVPUSH (23:04)
[2024-02-19] VITALS (15 sets, daily range): BP systolic 120–179; BP diastolic 80–106; PULSE 76–128; RESP 16–24; TEMP 36.1–37.4; O2SAT 90–100
[2024-02-19] MEDS: levalbuterol HCL 1.25 MG/3 ML VIAL.NEB INHALE ×2 (00:32→04:57)
--- NOTE | 2024-02-19 02:48 | PC.NURSE ---
cardizem gtt started around 2300 for afib RVR in 130s-140s with felt palpitations per MD order. stopped at 0109 per order parameters. this nurse discussed with MD labile HR. pt mostly sustaining around 70-100 bpm with very brief spikes into 110s-120. immmediately returning to 70-100s range. per MD keep paused until HR sustaining >120. pt call moya in reach. plan of care ongoing
[2024-02-19] MEDS: Omeprazole 20 MG CAPSULE.DR PO (05:21)
[2024-02-19] MEDS: methylPREDNISolone Sod Succ 40 MG/ML VIAL IVPUSH ×2 (05:21→17:19)
[2024-02-19] MEDS: Levothyroxine Sodium 25 MCG TABLET PO (05:22)
[2024-02-19] MEDS: Morphine Sulfate 4 MG/ML CARTRIDGE 2 MG IVPUSH ×3 (05:24→22:29)
[2024-02-19 07:09] LABS: Hematocrit 35.9 % (37.0-47.0); Hemoglobin 11.5 g/dl (12.0-16.0); Mean Corpuscular Hemoglobin 30.2 pg (27.0-33.0); Mean Corpuscular Volume 94.2 fL (80.0-98.0); Mean Platelet Volume 10.5 fL (9.4-12.3); Platelet Count 145 X10*3/uL (160-400); Red Blood Count 3.81 X10*6/uL (4.20-5.50); Red Cell Distribution Width 15.5 % (11.0-16.0); White Blood Count 15.8 X10*3/uL (4.8-10.8)
[2024-02-19 07:27] LABS: Anion Gap 17 (12-20); Blood Urea Nitrogen 48 mg/dL (9-16); Calcium 9.3 mg/dL (8.4-10.2); Carbon Dioxide 30 mmol/L (22-29); Chloride 98 mmol/L (96-108); Creatinine Clr Calc Pharmacy 58.7; Estimated Glomerular Filt Rate 46; Glucose Fasting 197 mg/dL (60-99); Glucose Random 198 mg/dL (60-115); Potassium 4.9 mmol/L (3.3-5.1); Sodium 140 mmol/L (135-145)
[2024-02-19] MEDS: levalbuterol HCL 1.25 MG, Ipratropium Bromide 0.5 MG INHALE ×4 (07:32→18:54)
[2024-02-19 08:49] LABS: MANUAL DIFF FLAG NO
[2024-02-19 08:50] LABS: Basophils Percent Auto 0.2 % (0-2); Imm Gran Pct Auto 1.3 % (0.0-0.4); Lymphocytes Absolute Auto 0.6 X10*3/uL (1.2-4.9); Monocytes Percent Auto 6.3 % (2-11); Neutrophils Absolute Auto 13.8 x10*3/uL (2.0-8.3); Neutrophils Percent Auto 88.2 % (45-73)
[2024-02-19] MEDS: Metoprolol Succinate ER 50 MG TAB.ER.24H 150 MG PO (08:53)
[2024-02-19] MEDS: Furosemide 40 MG TABLET PO (08:53)
[2024-02-19] MEDS: guaiFENesin DM 600/30 1 TAB TAB.ER.12H PO ×2 (08:53→21:17)
[2024-02-19] MEDS: Potassium Chloride ER 20 MEQ TAB.ER.PRT PO (08:53)
[2024-02-19] MEDS: dilTIAZem HCL CD 240 MG CAP.ER.DEG PO (08:53)
[2024-02-19] MEDS: Apixaban 5 MG TABLET PO ×2 (08:53→21:17)
[2024-02-19] MEDS: Folic Acid 1 MG TABLET PO (08:53)
[2024-02-19] MEDS: Magnesium Oxide 400 MG TABLET PO (08:53)
[2024-02-19] MEDS: vancomycin HCL 1,500 MG in 0.9 % Sodium Chloride 500 ML 333.33 MG IV (08:54)
[2024-02-19] MEDS: PARoxetine HCL 40 MG TABLET PO ×2 (08:54→21:17)
[2024-02-19] MEDS: 0.9 % Sodium Chloride Flush 3 ML SYRINGE IVFLUSH ×3 (08:55→21:17)
--- NOTE | 2024-02-19 11:05 | HO.PM.IMPN ---
Subjective Subjective Date of Service: 02/19/24 Interval History: wheezy, sob, Physical Exam Vital Signs: Vital Signs: Last Vital Signs Temp 97 F 02/19/24 07:41 Pulse 109 H 02/19/24 07:41 Resp 18 02/19/24 10:03 BP 140/90 H 02/19/24 07:41 Pulse Ox 100 02/19/24 07:41 O2 Del Method Nasal Cannula 02/19/24 07:41 O2 Flow Rate 2 02/19/24 07:41 BMI result Body Mass Index 33.9 General: AO X 3, no acute distress Resp: wheezing bilateral, no accessory muscles used CVS: S1,S2,Rapid irregular GI: soft, non tender, non distended Neuro: motor grossly intact, alert Psych: appropriate affect, appropriate insight Objective Data Active Medications Acetaminophen (Acetaminophen 325 Mg Tablet) 650 mg PO Q6H PRN PRN Reason: Pain, Mild (Pain Scale 1-3), fever or headache Last Admin: 02/18/24 22:26 Dose: 325 mg Documented By: ROXANNE Comments: patient request Apixaban (Apixaban 5 Mg Tablet) 5 mg PO BID [facility] Last Admin: 02/19/24 08:53 Dose: 5 mg Documented By: YESENIA Atorvastatin Calcium (Atorvastatin Calcium 10 Mg Tablet) 10 mg PO BEDTIME [facility] Last Admin: 02/18/24 22:28 Dose: 10 mg Documented By: ROXANNE Calcium Carbonate (Calcium Carbonate 750 Mg Tab.Chew) 750 mg PO Q4H PRN PRN Reason: Heartburn Levalbuterol HCl 1.25 mg/ (Ipratropium [place] 0.5 mg) 0 mg INHALE RQ4H WHILE AWAKE [facility] Last Admin: 02/19/24 07:32 Dose: 5.5 dose Documented By: DARBY Diltiazem HCl (Diltiazem Hcl Cd 240 Mg Cap.Er.Deg) 240 mg PO DAILY [facility]; Protocol Last Admin: 02/19/24 08:53 Dose: 240 mg Documented By: YESENIA Folic Acid (Folic Acid 1 Mg Tablet) 1 mg PO DAILY [facility] Last Admin: 02/19/24 08:53 Dose: 1 mg Documented By: YESENIA Furosemide (Furosemide 40 Mg Tablet) 40 mg PO DAILY [facility]; Protocol Last Admin: 02/19/24 08:53 Dose: 40 mg Documented By: YESENIA Guaifenesin/Dextromethorphan (Guaifenesin Dm 600/30 1 Tab Tab.Er.12h) 1 tab PO BID [facility] Last Admin: 02/19/24 08:53 Dose: 1 tab Documented By: YESENIA Vancomycin HCl 1,500 mg/ (Sodium Chloride) 500 mls @ 333.333 mls/hr IV Q24H [facility] Last Admin: 02/19/24 08:54 Dose: 333.33 mls/hr Documented By: YESENIA Diltiazem HCl 125 mg/ Sodium (Chloride) 125 mls @ 0 mls/hr IVCONT .Q0M [facility]; Protocol Last Titration: 02/19/24 01:10 Dose: 0 mg/hr, 0 mls/hr Documented By: ROXANNE Levothyroxine Sodium (Levothyroxine Sodium 25 Mcg Tablet) 25 mcg PO DAILY@0600 [facility] Last Admin: 02/19/24 05:22 Dose: 25 mcg Documented By: VARINDER Magnesium Hydroxide (Milk Of Magnesia 30 Ml Oral.Susp) 30 ml PO DAILY PRN PRN Reason: Constipation Magnesium Oxide (Magnesium Oxide 400 Mg Tablet) 400 mg PO DAILY [facility] Last Admin: 02/19/24 08:53 Dose: 400 mg Documented By: YESENIA Melatonin (Melatonin 3 Mg Tablet) 6 mg PO BEDTIME PRN PRN Reason: Insomnia Last Admin: 02/18/24 22:27 Dose: 6 mg Documented By: ROXANNE Methylprednisolone Sodium Succinate (Methylprednisolone Sod Succ 40 Mg/Ml Vial) 40 mg IVPUSH Q12H [facility] Last Admin: 02/19/24 05:21 Dose: 40 mg Documented By: VARINDER Metoprolol Succinate (Metoprolol Succinate Er 50 Mg Tab.Er.24h) 150 mg PO DAILY [facility]; Protocol Last Admin: 02/19/24 08:53 Dose: 150 mg Documented By: YESENIA Morphine Sulfate (Morphine Sulfate 4 Mg/Ml Cartridge) 2 mg IVPUSH Q4H PRN; Protocol PRN Reason: work of breathing Last Admin: 02/19/24 10:03 Dose: 2 mg Documented By: YESENIA Nicotine (Nicotine 21 Mg Patch.Td24) 21 mg TRANSDERMA DAILY PRN PRN Reason: Smoking Cessation Non-Formulary Medication (Milnacipran [Savella]) 50 mg PO BID [facility] Omeprazole (Omeprazole 20 Mg Capsule.Dr) 20 mg PO DAILY@0630 [facility] Last Admin: 02/19/24 05:21 Dose: 20 mg Documented By: VARINDER Ondansetron HCl (Ondansetron Hcl 4 Mg/2 Ml Vial) 4 mg IVPUSH Q8H PRN PRN Reason: Nausea and Vomiting Oxycodone HCl (Oxycodone Hcl Immed Release 5 Mg Tablet) 5 mg PO Q6H PRN PRN Reason: Pain, Moderate(Pain Scale 4-6) Paroxetine HCl (Paroxetine Hcl 40 Mg Tablet) 40 mg PO BID [facility] Last Admin: 02/19/24 08:54 Dose: 40 mg Documented By: YESENIA Pharmacy Consult (Consult Rx Vancomycin Dosing) 1 each MISCELLANE DAILY PRN PRN Reason: Consult order Potassium Chloride (Potassium Chloride Er 20 Meq Tab.Er.Prt) 20 meq PO DAILY [facility] Last Admin: 02/19/24 08:53 Dose: 20 meq Documented By: YESENIA Sodium Chloride (0.9 % Sodium Chloride Flush 3 Ml Syringe) 3 ml IVFLUSH QSHIFT [facility] Last Admin: 02/19/24 08:55 Dose: 3 ml Documented By: YESENIA Labs 02/19/24 06:56 02/19/24 06:56 Labs: Laboratory Results - last 24 hr 02/19/24 06:56 MCV 94.2 MCH 30.2 MCHC 32.0 RDW 15.5 Plt Count 145 L MPV 10.5 Immature Gran % (Auto) 1.3 H Neut % (Auto) 88.2 H Lymph % (Auto) 4.0 L [place] % (Auto) 6.3 Eos % (Auto) 0.0 Baso % (Auto) 0.2 Lymph # (Auto) 0.6 L [place] # (Auto) 1.0 Eos # (Auto) 0.0 Baso # (Auto) 0.0 Abs Immat Gran (auto) 0.20 H Absolute Neuts (auto) 13.8 H Absolute Nucleated RBC 0.000 Nucleated RBC % (auto) 0.0 Anion Gap 17 Estim Creat Clear Calc 58.7 Estimated GFR 46 Random Glucose 198 H Fasting Glucose 197 H Calcium 9.3 Microbiology Microbiology Results: Microbiology 02/18/24 07:13 Blood Culture - Preliminary Blood - Venous No growth after 24 hours. 02/18/24 07:13 Blood Culture - Preliminary Blood - Venous No growth after 24 hours. 02/17/24 04:32 Blood Culture - Preliminary Blood - Venous No growth after 48 hours. 02/17/24 04:40 Blood Culture - Preliminary Blood - Venous Prelim: GPC Gram Stain only Assessment and Plan (1) Atrial fibrillation with rapid ventricular response: Status: Acute Plan 63F pMH [id number] lung cancer, breast cancer, depression, hepatitis-C, hypertension, chronic diastolic CHF, COPD with chronic hypoxic respiratory failure on 3 L home O2, paroxysmal atrial fibrillation, hypothyroid presented with shortness of breath Acute on chronic hyper cap neck and hypoxic respiratory failure secondary to COPD with acute decompensation Continue IV steroids and nebulizers Now back to baseline O2 morphine for dyspnea Paroxysmal atrial fibrillation with rapid ventricular response Weaned off diltiazem drip Continue oral to 40 mg daily and metoprolol succinate 150 mg daily Continue Eliquis Chronic diastolic CHF Euvolemic continue maintenance Lasix Hypothyroid Continue levothyroxine Stage IV [id number] lung cancer Oncology following DVT prophylaxis with Eliquis Full code reason for continued hospitalization: Still wheezing and short of breath Quality Stroke Does the patient have a stroke diagnosis?: No VTE Prior VTE?: No VTE Risk Level:: Medical - moderate - high VTE Device Contraindication: N/A - Device Ordered VTE Drug Contraindication: N/A - Med Ordered
[2024-02-19] MEDS: Nystatin Powder 15 GM BOTTLE 1 APPL TOPICAL (15:35)
[2024-02-19] MEDS: Buprenorphine/Naloxone 2/0.5mg FILM 1 FILM SUBLINGUAL (16:16)
[2024-02-19] MEDS: oxyCODONE HCl Immed Release 5 MG TABLET PO (17:18)
[2024-02-19] MEDS: Docusate Sodium 100 MG CAPSULE PO (21:17)
[2024-02-19] MEDS: Melatonin 3 MG TABLET 6 MG PO (21:17)
[2024-02-19] MEDS: Atorvastatin Calcium 10 MG TABLET PO (21:17)
[2024-02-20] VITALS (13 sets, daily range): BP systolic 135–162; BP diastolic 90–116; PULSE 85–111; RESP 18–24; TEMP 36.1–36.9; O2SAT 85–100
[2024-02-20] MEDS: levalbuterol HCL 1.25 MG/3 ML VIAL.NEB INHALE (02:07)
[2024-02-20] MEDS: Morphine Sulfate 4 MG/ML CARTRIDGE 2 MG IVPUSH ×2 (02:08→20:06)
[2024-02-20] MEDS: Omeprazole 20 MG CAPSULE.DR PO (05:23)
[2024-02-20] MEDS: methylPREDNISolone Sod Succ 40 MG/ML VIAL IVPUSH ×2 (05:23→18:09)
[2024-02-20] MEDS: Levothyroxine Sodium 25 MCG TABLET PO (05:23)
[2024-02-20] MEDS: oxyCODONE HCl Immed Release 5 MG TABLET PO ×2 (05:28→12:16)
[2024-02-20 07:27] LABS: MANUAL DIFF FLAG NO
[2024-02-20 07:40] LABS: Basophils Absolute Auto 0.1 X10*3/uL (0.0-0.2); Basophils Percent Auto 0.4 % (0-2); Hematocrit 35.2 % (37.0-47.0); Imm Gran Abs Auto 0.36 X10*3/uL (0.00-0.03); Imm Gran Pct Auto 2.2 % (0.0-0.4); Lymphocytes Absolute Auto 0.6 X10*3/uL (1.2-4.9); Lymphocytes Percent Auto 3.4 % (20-40); Mean Corpuscular HGB Conc 31.3 g/dl (31.0-35.0); Mean Corpuscular Hemoglobin 29.6 pg (27.0-33.0); Mean Corpuscular Volume 94.9 fL (80.0-98.0); Mean Platelet Volume 10.9 fL (9.4-12.3); Monocytes Absolute Auto 0.9 X10*3/uL (0.1-1.2); Monocytes Percent Auto 5.6 % (2-11); Neutrophils Absolute Auto 14.5 x10*3/uL (2.0-8.3); Neutrophils Percent Auto 88.4 % (45-73); Platelet Count 152 X10*3/uL (160-400); Red Blood Count 3.71 X10*6/uL (4.20-5.50); Red Cell Distribution Width 15.2 % (11.0-16.0); White Blood Count 16.3 X10*3/uL (4.8-10.8)
[2024-02-20] MEDS: levalbuterol HCL 1.25 MG, Ipratropium Bromide 0.5 MG INHALE ×4 (07:48→19:14)
[2024-02-20 07:59] LABS: Anion Gap 19 (12-20); Blood Urea Nitrogen 58 mg/dL (9-16); Calcium 9.5 mg/dL (8.4-10.2); Carbon Dioxide 29 mmol/L (22-29); Chloride 95 mmol/L (96-108); Creatinine Clr Calc Pharmacy 43.3; Estimated Glomerular Filt Rate 33; Glucose Fasting 308 mg/dL (60-99); Glucose Random 307 mg/dL (60-115); Potassium 3.8 mmol/L (3.3-5.1); Sodium 139 mmol/L (135-145)
[2024-02-20] MEDS: Nicotine 21 MG PATCH.TD24 TRANSDERMA (08:38)
[2024-02-20] MEDS: Metoprolol Succinate ER 50 MG TAB.ER.24H 150 MG PO (08:39)
[2024-02-20] MEDS: Folic Acid 1 MG TABLET PO (08:39)
[2024-02-20] MEDS: Milk of Magnesia 30 ML ORAL.SUSP PO (08:39)
[2024-02-20] MEDS: guaiFENesin DM 600/30 1 TAB TAB.ER.12H PO ×2 (08:39→20:00)
[2024-02-20] MEDS: Furosemide 40 MG TABLET PO (08:39)
[2024-02-20] MEDS: dilTIAZem HCL CD 240 MG CAP.ER.DEG PO (08:40)
[2024-02-20] MEDS: Apixaban 5 MG TABLET PO ×2 (08:40→20:00)
[2024-02-20] MEDS: PARoxetine HCL 40 MG TABLET PO ×2 (08:40→20:00)
[2024-02-20] MEDS: Potassium Chloride ER 20 MEQ TAB.ER.PRT PO (08:40)
[2024-02-20] MEDS: Magnesium Oxide 400 MG TABLET PO (08:40)
[2024-02-20] MEDS: 0.9 % Sodium Chloride Flush 3 ML SYRINGE IVFLUSH ×3 (08:40→20:00)
[2024-02-20] MEDS: Nystatin Powder 15 GM BOTTLE 1 APPL TOPICAL ×3 (08:41→20:11)
--- NOTE | 2024-02-20 10:39 | P.PNIM_ITS ---
Subjective Subjective Date of Service: 02/20/24 Interval History: wheezy, sob, Physical Exam 2 Vital Signs: Vital Signs: Last Vital Signs Temp 97.0 F 02/20/24 08:26 Pulse 90 02/20/24 08:26 Resp 20 02/20/24 08:26 BP 136/92 H 02/20/24 08:26 Pulse Ox 91 L 02/20/24 08:26 O2 Del Method Nasal Cannula 02/20/24 08:26 O2 Flow Rate 3 02/20/24 08:26 BMI result Body Mass Index 33.9 General: AO X 3, no acute distress Resp: wheezing bilateral, no accessory muscles used CVS: S1,S2,Rapid irregular GI: soft, non tender, non distended Neuro: motor grossly intact, alert Psych: appropriate affect, appropriate insight Objective Data Active Medications Acetaminophen (Acetaminophen 325 Mg Tablet) 650 mg PO Q6H PRN PRN Reason: Pain, Mild (Pain Scale 1-3), fever or headache Last Admin: 02/18/24 22:26 Dose: 325 mg Documented By: ROXANNE Comments: patient request Apixaban (Apixaban 5 Mg Tablet) 5 mg PO BID [facility] Last Admin: 02/20/24 08:40 Dose: 5 mg Documented By: YESENIA Atorvastatin Calcium (Atorvastatin Calcium 10 Mg Tablet) 10 mg PO BEDTIME [facility] Last Admin: 02/19/24 21:17 Dose: 10 mg Documented By: VARINDER Buprenorphine/Naloxone (Buprenorphine/Naloxone 2/0.5mg Film) 1 film SUBLINGUAL DAILY PRN PRN Reason: Pain, Moderate(Pain Scale 4-6) Last Admin: 02/19/24 16:16 Dose: 1 film Documented By: YESENIA Comments: pain 6/10 Calcium Carbonate (Calcium Carbonate 750 Mg Tab.Chew) 750 mg PO Q4H PRN PRN Reason: Heartburn Levalbuterol HCl 1.25 mg/ (Ipratropium [place] 0.5 mg) 0 mg INHALE RQ4H WHILE AWAKE [facility] Last Admin: 02/20/24 07:48 Dose: 1 dose Documented By: ЕЛЕНА Diltiazem HCl (Diltiazem Hcl Cd 240 Mg Cap.Er.Deg) 240 mg PO DAILY [facility]; Protocol Last Admin: 02/20/24 08:40 Dose: 240 mg Documented By: YESENIA Docusate Sodium (Docusate Sodium 100 Mg Capsule) 100 mg PO BEDTIME PRN PRN Reason: Constipation Last Admin: 02/19/24 21:17 Dose: 100 mg Documented By: VARINDER Folic Acid (Folic Acid 1 Mg Tablet) 1 mg PO DAILY [facility] Last Admin: 02/20/24 08:39 Dose: 1 mg Documented By: YESENIA Furosemide (Furosemide 40 Mg Tablet) 40 mg PO DAILY [facility]; Protocol Last Admin: 02/20/24 08:39 Dose: 40 mg Documented By: YESENIA Guaifenesin/Dextromethorphan (Guaifenesin Dm 600/30 1 Tab Tab.Er.12h) 1 tab PO BID [facility] Last Admin: 02/20/24 08:39 Dose: 1 tab Documented By: YESENIA Diltiazem HCl 125 mg/ Sodium (Chloride) 125 mls @ 0 mls/hr IVCONT .Q0M [facility]; Protocol Last Titration: 02/19/24 22:05 Dose: Infused Documented By: VARINDER Levalbuterol HCl (Levalbuterol Hcl 1.25 Mg/3 Ml Vial.Neb) 1.25 mg INHALE Q6H PRN PRN Reason: Shortness of Breath/Wheezing Last Admin: 02/20/24 02:07 Dose: 1.25 mg Documented By: CHRISTOPHER Levothyroxine Sodium (Levothyroxine Sodium 25 Mcg Tablet) 25 mcg PO DAILY@0600 [facility] Last Admin: 02/20/24 05:23 Dose: 25 mcg Documented By: VARINDER Magnesium Hydroxide (Milk Of Magnesia 30 Ml Oral.Susp) 30 ml PO DAILY PRN PRN Reason: Constipation Last Admin: 02/20/24 08:39 Dose: 30 ml Documented By: YESENIA Magnesium Oxide (Magnesium Oxide 400 Mg Tablet) 400 mg PO DAILY [facility] Last Admin: 02/20/24 08:40 Dose: 400 mg Documented By: YESENIA Melatonin (Melatonin 3 Mg Tablet) 6 mg PO BEDTIME PRN PRN Reason: Insomnia Last Admin: 02/19/24 21:17 Dose: 6 mg Documented By: VARINDER Methylprednisolone Sodium Succinate (Methylprednisolone Sod Succ 40 Mg/Ml Vial) 40 mg IVPUSH Q12H [facility] Last Admin: 02/20/24 05:23 Dose: 40 mg Documented By: VARINDER Metoprolol Succinate (Metoprolol Succinate Er 50 Mg Tab.Er.24h) 150 mg PO DAILY [facility]; Protocol Last Admin: 02/20/24 08:39 Dose: 150 mg Documented By: YESENIA Morphine Sulfate (Morphine Sulfate 4 Mg/Ml Cartridge) 2 mg IVPUSH Q3H PRN; Protocol PRN Reason: work of breathing Last Admin: 02/20/24 02:08 Dose: 2 mg Documented By: VARINDER Nicotine (Nicotine 21 Mg Patch.Td24) 21 mg TRANSDERMA DAILY PRN PRN Reason: Smoking Cessation Last Admin: 02/20/24 08:38 Dose: 21 mg Documented By: YESENIA Non-Formulary Medication (Milnacipran [[place]]) 50 mg PO BID [facility] Nystatin (Nystatin Powder 15 Gm Bottle) 1 appl TOPICAL TID [facility]; Protocol Last Admin: 02/20/24 08:41 Dose: 1 appl Documented By: YESENIA Omeprazole (Omeprazole 20 Mg Capsule.Dr) 20 mg PO DAILY@0630 [facility] Last Admin: 02/20/24 05:23 Dose: 20 mg Documented By: VARINDER Ondansetron HCl (Ondansetron Hcl 4 Mg/2 Ml Vial) 4 mg IVPUSH Q8H PRN PRN Reason: Nausea and Vomiting Oxycodone HCl (Oxycodone Hcl Immed Release 5 Mg Tablet) 5 mg PO Q6H PRN PRN Reason: Pain, Moderate(Pain Scale 4-6) Last Admin: 02/20/24 05:28 Dose: 5 mg Documented By: VARINDER Paroxetine HCl (Paroxetine Hcl 40 Mg Tablet) 40 mg PO BID [facility] Last Admin: 02/20/24 08:40 Dose: 40 mg Documented By: YESENIA Potassium Chloride (Potassium Chloride Er 20 Meq Tab.Er.Prt) 20 meq PO DAILY [facility] Last Admin: 02/20/24 08:40 Dose: 20 meq Documented By: YESENIA Sodium Chloride (0.9 % Sodium Chloride Flush 3 Ml Syringe) 3 ml IVFLUSH QSHIFT [facility] Last Admin: 02/20/24 08:40 Dose: 3 ml Documented By: YESENIA Labs 02/20/24 06:33 02/20/24 06:33 Labs: Laboratory Results - last 24 hr 02/20/24 06:33 MCV 94.9 MCH 29.6 MCHC 31.3 RDW 15.2 Plt Count 152 L MPV 10.9 Immature Gran % (Auto) 2.2 H Neut % (Auto) 88.4 H Lymph % (Auto) 3.4 L [place] % (Auto) 5.6 Eos % (Auto) 0.0 Baso % (Auto) 0.4 Lymph # (Auto) 0.6 L [place] # (Auto) 0.9 Eos # (Auto) 0.0 Baso # (Auto) 0.1 Abs Immat Gran (auto) 0.36 H Absolute Neuts (auto) 14.5 H Absolute Nucleated RBC 0.000 Nucleated RBC % (auto) 0.0 Anion Gap 19 Estim Creat Clear Calc 43.3 Estimated GFR 33 Random Glucose 307 H Fasting Glucose 308 H Calcium 9.5 Microbiology Microbiology Results: Microbiology 02/18/24 07:13 Blood Culture - Preliminary Blood - Venous No growth after 48 hours. 02/18/24 07:13 Blood Culture - Preliminary Blood - Venous No growth after 48 hours. 02/17/24 04:40 Blood Culture - Final Blood - Venous Coag negative Staphylococcus 02/17/24 04:32 Blood Culture - Preliminary Blood - Venous No growth after 48 hours. Assessment and Plan (1) Atrial fibrillation with rapid ventricular response: Status: Acute Plan 63F pMH [id number] lung cancer, breast cancer, depression, hepatitis-C, hypertension, chronic diastolic CHF, COPD with chronic hypoxic respiratory failure on 3 L home O2, paroxysmal atrial fibrillation, hypothyroid presented with shortness of breath Acute on chronic hyper cap neck and hypoxic respiratory failure secondary to COPD with acute decompensation Continue IV steroids and nebulizers Now back to baseline O2 morphine for dyspnea Paroxysmal atrial fibrillation with rapid ventricular response Weaned off diltiazem drip Continue oral to 40 mg daily and metoprolol succinate 150 mg daily Continue Eliquis Chronic diastolic CHF Euvolemic continue maintenance Lasix Hypothyroid Continue levothyroxine Stage IV [id number] lung cancer Oncology following DVT prophylaxis with Eliquis Full code reason for continued hospitalization: Still wheezing and short of breath Quality Stroke Does the patient have a stroke diagnosis?: No VTE Prior VTE?: No VTE Risk Level:: Medical - moderate - high VTE Device Contraindication: N/A - Device Ordered VTE Drug Contraindication: N/A - Med Ordered
[2024-02-20] MEDS: Buprenorphine/Naloxone 2/0.5mg FILM 1 FILM SUBLINGUAL (16:34)
[2024-02-20] MEDS: Atorvastatin Calcium 10 MG TABLET PO (20:00)
[2024-02-21] VITALS (12 sets, daily range): BP systolic 128–160; BP diastolic 80–100; PULSE 82–114; RESP 14–33; TEMP 36.1–36.4; O2SAT 90–97
[2024-02-21] MEDS: levalbuterol HCL 1.25 MG/3 ML VIAL.NEB INHALE ×2 (00:12→05:12)
[2024-02-21] MEDS: oxyCODONE HCl Immed Release 5 MG TABLET PO ×3 (00:28→22:33)
[2024-02-21] MEDS: methylPREDNISolone Sod Succ 40 MG/ML VIAL IVPUSH ×2 (05:11→18:00)
[2024-02-21] MEDS: Levothyroxine Sodium 25 MCG TABLET PO (05:12)
[2024-02-21] MEDS: Omeprazole 20 MG CAPSULE.DR PO (05:12)
[2024-02-21] MEDS: levalbuterol HCL 1.25 MG, Ipratropium Bromide 0.5 MG INHALE ×4 (07:22→19:57)
--- NOTE | 2024-02-21 07:47 | P.PNHO-ONC_ITS ---
Medical Summary - Medical Summary Date of Service: 02/21/24 Chief complaint: SOB Primary Care Provider: Erik Agee MD Medical Summary: Diagnosis: Metastatic lung cancer Right upper lobe Wedge resection in July 2019, adenocarcinoma Left lower lobe wedge resection in January 2021 adenocarcinoma She was diagnosed with right upper lobe lung adenocarcinoma and underwent right upper lobectomy/mediastinal lymphadenectomy on 08/03/2019 at [facility]. Pathology revealed invasive adenocarcinoma, tumor size 1.3 x 0.9 x 0.5 cm, moderately differentiated, tumor invades visceral pleura, no satellite nodules. Vascular invasion present, margins negative. Pathological TNM stage PT2a, pN0, MX. Surveillance CT chest with contrast performed 12/26/2020 showed stable postsurgical changes, 2 new/increasing suspicious areas in the right lower lobe nodules. Interval increase in suspicious appearing cavitary left upper lobe nodule. Numerous bilateral small ground-glass nodules. On 01/21/2021 patient underwent left upper lobe wedge resection and lymph node biopsies. Pathology revealed adenocarcinoma tumor size 1.8 x 1.8 x 1.1 cm. Single focus, G2 moderately differentiated, visceral pleural invasion identified, lymphovascular invasion not identified. Margins negative. Two lymph nodes were examined, negative for carcinoma. Pathological TNM stage pT2a pN0. Molecular studies to be obtained from [facility], this was ordered last week. Stage IB cancer without any high-risk features such as lymphovascular invasion. Surveillance imaging with CT chest/abdomen and pelvis performed in September 2021 showed new right lower lobe mass measuring 1.7 x 1.3 cm suspicious for new/metastatic lesion. Sub pleural ground-glass attenuation measuring 1.4 x 1.1 cm similar to previous exam. Second lesion in the right lower lobe posterior basal segment measuring 1.6 x 1.4 cm which is also suspicious. Subcarinal lymph nodes largest measuring 1.3 x 2.1 cm and large pretracheal lymph node measuring 1.5 x 1.5 cm all suspicious for disease recurrence.. CT abdomen showed stable 1.4 cm right adrenal lesion. Extensive fine interstitial markings throughout right lower lobe likely post radiation changes. PET-CT was recommended for further evaluation. Remote history of radiation for her right breast for cancer treatment. PET-CT performed 10/14/21 showed extensive FDG avid consolidation in the right middle lobe, worse than CT scan in September. Inflammatory versus infectious etiology along with malignancy. New FDG avid mediastinal lymphadenopathy suspicious for recurrence or metastatic malignancy. FDG avid vertebral lesions in C7 and T7 suspicious for metastasis. Stable right adrenal nodule showed no FDG activity. Patient started on combination therapy with pembrolizumab, carboplatin and pemetrexed on 11/13/2021. She is on denosumab 120 mg subQ monthly for bone metastasis. Repeat PET-CT Performed 03/24/2022 showed interval resolution of previously documented right FDG avid airspace disease involving right middle and right lower lobes as well as FDG avid mediastinal lymph nodes. Brain MRI from 03/2022 showed 3 mm enhancement on the left parietal lobe and 2 mm enhancement in the right parietal lobe concerning for small metastatic foci. Repeat PET-CT in July 2022 shows no FDG avid lesions and stable from prior scan in March 2022. Brain MRI at [facility] in September 2022 was negative. PET-CT performed at [facility] on 03/11/2023 showed postsurgical changes. 2.3 x 1.2 cm opacity in right lower lobe with faint FDG uptake of 2.2. No other FDG avid metastatic disease was seen. Interval History Interval history: Elida Schumacher is a 63 year old female past medical history significant for non small-cell lung cancer (s/p LITA/RUL lobectomies) with mets on palliative chemotherapy, breast cancer, depression, hepatitis-C, HTN, CHF (recent echo, EF 60-65%), COPD with chronic respiratory failure on 3 L O2 at home, AFib (on Eliquis, diltiazem and metoprolol), hypothyroid and chronic pain on Suboxone, who presented to the ED this morning due to sudden chest pain and SOB this morning after waking up to urinate. She called EMS and O2 saturation was in the 70s and she was transitioned to CPAP. She had good improved range of saturations after this. She denies any headache, sore throat, nasal congestion, runny nose, cough, abdominal pain, nausea, vomiting, diarrhea. No recent sick contacts. She was recently discharged on 02/13/2024 for acute COPD exacerbation and acute CHF exacerbation. Prior to this she also had a recent admission for AFib with RVR discharged on 02/02 and acute on chronic respiratory failure due to pneumonia and COPD exacerbation discharged on 01/28. She notes improvement with the prednisone and breathing treatment. Chest pain has resolved and shortness of breath have improved. Her last treatment with pembrolizumab was in December 2023. She has had numerous admissions to the hospital for respiratory and heart-/atrial fibrillation related problems. She is feeling better overall. Review of Systems - Constitutional Reports as per HPI - Cardiovascular Reports no additional cardiovascular complaints - Respiratory Reports no additional respiratory complaints - Neurologic Denies confusion, Denies dizziness, Denies headache(s) [facility] Medical History: Medical History (Last Reviewed 02/17/24 @ 14:47 by Kaylynn Plasencia RN) Bilateral lung cancer Cancer of upper lobe of left lung Onset Date: ~2020 Cancer of upper lobe of right lung Onset Date: ~2019 CHF (congestive heart failure) COPD (chronic obstructive pulmonary disease) COPD (chronic obstructive pulmonary disease) Depression GERD (gastroesophageal reflux disease) History of breast cancer Onset Date: ~2006 History of hepatitis C HTN (hypertension) Internal and external bleeding hemorrhoids Lung cancer New onset a-fib Obesity Pancytopenia Pneumonitis Pulmonary nodules Smoker Tubular adenoma of colon Family History: Family History (Last Reviewed 01/31/24 @ 19:48 by Santa Barrientos MD) Mother History of lung cancer Brother History of lung cancer Maternal Grandmother Breast cancer in female Maternal Aunt Breast cancer in female Daughter Thyroid cancer Surgical History: Surgical History (Last Reviewed 02/17/24 @ 14:47 by Kaylynn Plasencia RN) History of anterior colporrhaphy Onset Date: ~2016 History of back surgery Onset Date: ~2011 History of colonoscopy Onset Date: ~2014 History of hemorrhoidectomy Onset Date: ~2019 History of lobectomy of lung Onset Date: ~2019 History of lumpectomy of right breast Onset Date: ~2006 History of lung surgery Onset Date: ~2020 History of tubal ligation Social History: Social History (Last Reviewed 02/17/24 @ 06:22 by Stephanie Somers DO) Living Situation History: Household Members: Spouse Household Members Other:: 2 Housing: Apartment Are you a primary lawn care specialist to a significant other at home: No Do you presently have visiting nurse or other home services: Yes Do you presently have visiting nurse or other home services comment: Nurse, PT Alcohol History: Unable to assess alcohol history related to: Unable to respond Alcohol History Details: 1. How often do you have a drink containing alcohol?: a. Never 3. How often do you have six or more drinks on one occasion?: a. Never AUDIT-C Alcohol total score: 0 Currently Displaying Signs/Symptoms of Alcohol Withdrawal: No Tobacco History: Patient Tobacco Use Status: Former Tobacco user Tobacco use type: Cigarette Cigarette Packs Per Day: 1 Years Smoked: 50 Smoked in Last 30 Days: No Smoking End Date: 11/01/23 e-Cigarette/Vaping Use: Former Use Second Hand Smoke Exposure: Yes Substance Use History: Use of substances other than those prescribed or required for medical reasons : No Substance Use Type: Marijuana Substance Use Frequency: Occasionally Last Used Substance: Days (ago) Currently Displaying Signs/Symptoms of Drug Intoxication Withdrawal: No Domestic Abuse History: Have you been hit, kicked, punched, or otherwise hurt by someone within the past year? If so, by whom?: No Do you feel safe in your current relationship?: Yes Is there a partner from a previous relationship who is making you feel unsafe now?: No Are you made to feel afraid or neglected: No Healthcare Practices: [employer] Healthcare Practices: [employer] Advance Directives: Advance Directives: Yes Advance Directives on File: Yes Advance Directives Date on File: 02/02/22 Homicidal Assessment: Do you have a plan to hurt others: No Plan Nutrition Assessment: Recently lost weight without trying: No How much weight loss: Not applicable Eating poorly because of decreased appetite: No Nutrition screen score: 0 Patient : No : No Poor oral hygiene: No Occupation Assessmet: service: No Current occupational status: disabled Current occupational exposures/hazards: No Home Medications and Allergies Current Medications: Current Medications Acetaminophen (Acetaminophen 325 Mg Tablet) 650 mg PO Q6H PRN PRN Reason: Pain, Mild (Pain Scale 1-3), fever or headache Last Admin: 02/18/24 22:26 Dose: 325 mg Apixaban (Apixaban 5 Mg Tablet) 5 mg PO BID WALTER Last Admin: 02/20/24 20:00 Dose: 5 mg Atorvastatin Calcium (Atorvastatin Calcium 10 Mg Tablet) 10 mg PO BEDTIME WALTER Last Admin: 02/20/24 20:00 Dose: 10 mg Buprenorphine/Naloxone (Buprenorphine/Naloxone 2/0.5mg Film) 1 film SUBLINGUAL DAILY PRN PRN Reason: Pain, Moderate(Pain Scale 4-6) Last Admin: 02/20/24 16:34 Dose: 1 film Calcium Carbonate (Calcium Carbonate 750 Mg Tab.Chew) 750 mg PO Q4H PRN PRN Reason: Heartburn Levalbuterol HCl 1.25 mg/ (Ipratropium Lequire 0.5 mg) 0 mg INHALE RQ4H WHILE AWAKE [facility] Last Admin: 02/21/24 07:22 Dose: 1 dose Diltiazem HCl (Diltiazem Hcl Cd 240 Mg Cap.Er.Deg) 240 mg PO DAILY [facility]; Protocol Last Admin: 02/20/24 08:40 Dose: 240 mg Docusate Sodium (Docusate Sodium 100 Mg Capsule) 100 mg PO BEDTIME PRN PRN Reason: Constipation Last Admin: 02/19/24 21:17 Dose: 100 mg Folic Acid (Folic Acid 1 Mg Tablet) 1 mg PO DAILY [facility] Last Admin: 02/20/24 08:39 Dose: 1 mg Furosemide (Furosemide 40 Mg Tablet) 40 mg PO DAILY [facility]; Protocol Last Admin: 02/20/24 08:39 Dose: 40 mg Guaifenesin/Dextromethorphan (Guaifenesin Dm 600/30 1 Tab Tab.Er.12h) 1 tab PO BID [facility] Last Admin: 02/20/24 20:00 Dose: 1 tab Diltiazem HCl 125 mg/ Sodium (Chloride) 125 mls @ 0 mls/hr IVCONT .Q0M [facility]; Protocol Last Titration: 02/19/24 22:05 Dose: Infused Levalbuterol HCl (Levalbuterol Hcl 1.25 Mg/3 Ml Vial.Neb) 1.25 mg INHALE Q6H PRN PRN Reason: Shortness of Breath/Wheezing Last Admin: 02/21/24 05:12 Dose: 1.25 mg Levothyroxine Sodium (Levothyroxine Sodium 25 Mcg Tablet) 25 mcg PO DAILY@0600 [facility] Last Admin: 02/21/24 05:12 Dose: 25 mcg Magnesium Hydroxide (Milk Of Magnesia 30 Ml Oral.Susp) 30 ml PO DAILY PRN PRN Reason: Constipation Last Admin: 02/20/24 08:39 Dose: 30 ml Magnesium Oxide (Magnesium Oxide 400 Mg Tablet) 400 mg PO DAILY [facility] Last Admin: 02/20/24 08:40 Dose: 400 mg Melatonin (Melatonin 3 Mg Tablet) 6 mg PO BEDTIME PRN PRN Reason: Insomnia Last Admin: 02/19/24 21:17 Dose: 6 mg Methylprednisolone Sodium Succinate (Methylprednisolone Sod Succ 40 Mg/Ml Vial) 40 mg IVPUSH Q12H [facility] Last Admin: 02/21/24 05:11 Dose: 40 mg Metoprolol Succinate (Metoprolol Succinate Er 50 Mg Tab.Er.24h) 150 mg PO DAILY [facility]; Protocol Last Admin: 02/20/24 08:39 Dose: 150 mg Morphine Sulfate (Morphine Sulfate 4 Mg/Ml Cartridge) 2 mg IVPUSH Q3H PRN; Protocol PRN Reason: work of breathing Last Admin: 02/20/24 20:06 Dose: 2 mg Nicotine (Nicotine 21 Mg Patch.Td24) 21 mg TRANSDERMA DAILY PRN PRN Reason: Smoking Cessation Last Admin: 02/20/24 08:38 Dose: 21 mg Non-Formulary Medication (Milnacipran [Savella]) 50 mg PO BID [facility] Nystatin (Nystatin Powder 15 Gm Bottle) 1 appl TOPICAL TID [facility]; Protocol Last Admin: 02/20/24 20:11 Dose: 1 appl Omeprazole (Omeprazole 20 Mg Capsule.Dr) 20 mg PO DAILY@0630 [facility] Last Admin: 02/21/24 05:12 Dose: 20 mg Ondansetron HCl (Ondansetron Hcl 4 Mg/2 Ml Vial) 4 mg IVPUSH Q8H PRN PRN Reason: Nausea and Vomiting Oxycodone HCl (Oxycodone Hcl Immed Release 5 Mg Tablet) 5 mg PO Q6H PRN PRN Reason: Pain, Moderate(Pain Scale 4-6) Last Admin: 02/21/24 00:28 Dose: 5 mg Paroxetine HCl (Paroxetine Hcl 40 Mg Tablet) 40 mg PO BID [facility] Last Admin: 02/20/24 20:00 Dose: 40 mg Potassium Chloride (Potassium Chloride Er 20 Meq Tab.Er.Prt) 20 meq PO DAILY [facility] Last Admin: 02/20/24 08:40 Dose: 20 meq Sodium Chloride (0.9 % Sodium Chloride Flush 3 Ml Syringe) 3 ml IVFLUSH QSHIFT [facility] Last Admin: 02/20/24 20:00 Dose: 3 ml Home Medications ?Medication ?Instructions ?Recorded ?Confirmed ?Type milnacipran 50 mg tablet (Savella) 50 mg PO BID 01/18/22 02/17/24 History omeprazole 20 mg capsule,delayed 20 mg PO DAILY@0630 01/18/22 02/17/24 History release paroxetine HCl 20 mg tablet 40 mg PO BID 01/18/22 02/17/24 History simvastatin 20 mg tablet 20 mg PO BEDTIME 02/17/22 02/17/24 History albuterol sulfate 90 mcg/actuation 2 puff inhalation Q6H PRN sob 06/22/23 02/17/24 History aerosol inhaler (Ventolin HFA) buprenorphine 2 mg-naloxone 0.5 mg 1 film sublingual DAILY 07/09/23 02/17/24 History sublingual film (Suboxone) docusate sodium 100 mg capsule 100 mg PO BEDTIME PRN stool 07/09/23 02/17/24 History softener umeclidinium 62.5 mcg-vilanterol 1 inh inhalation DAILY 07/09/23 02/17/24 History 25 mcg/actuation powdr for inhalation (Anoro Ellipta) ipratropium 0.5 mg-albuterol 3 mg 3 ml inhalation Q6H PRN wheezing 10/18/23 02/17/24 History (2.5 mg base)/3 mL nebulization soln acetaminophen 500 mg tablet 500 mg PO DAILY PRN Pain 11/03/23 02/17/24 History furosemide 40 mg tablet 40 mg PO DAILY 01/19/24 02/17/24 History nicotine 21 mg/24 hr daily 21 mg transdermal DAILY PRN 01/19/24 02/17/24 History transdermal patch Smoking Cessation buprenorphine 2 mg-naloxone 0.5 mg 1 film sublingual DAILY PRN Pain 01/31/24 02/17/24 History sublingual film (Suboxone) Allergies Allergy/AdvReac Type Severity Reaction Status Date / Time lisinopril [LISINOPRIL] Allergy Severe SWELLING- Verified 02/17/24 04:47 ANGIOEDEMA codeine [CODEINE] Allergy Intermediate VOMITING/HIVES, Verified 02/17/24 04:47 vomiting, hives Exam Vital signs: Vital Signs Temp 97.0 F 02/21/24 07:11 Pulse 100 02/21/24 07:23 Resp 20 02/21/24 07:23 BP 160/100 H 02/21/24 07:11 Pulse Ox 95 02/21/24 07:11 O2 Del Method Nasal Cannula 02/21/24 07:11 O2 Flow Rate 3 02/21/24 07:11 Intake & Output 02/20/24 02/21/24 02/21/24 18:59 06:59 18:59 Intake Total 800 / 800 Output Total 900 / 900 Balance 800 / -100 -900 / -100 Urine Output (Average ml/kg/hr) 0.76 Intake: Intake, Oral Amount 800 / 800 Output: Output, Urine Amount 900 / 900 Other: Breakfast % Eaten 75% Lunch % Eaten 75% Eating (Feeding) Ability Independent Number of Incontinent Voids 1 Number of Unmeasured Voids 3 2 Number of Bowel Movements 2 Urine Bedside Commode Urine Color Yellow Last Bowel Movement 02/20/24 02/20/24 Stool Bedside Commode Weight 98.1 kg BMI result Body Mass Index 33.9 - Constitutional Present: mild distress, obese - Routine HEENT Exam Head: Present: normal inspection - Routine Neck Exam Absent: lymphadenopathy - Routine Respiratory Exam Present: decreased breath sounds, respiratory distress, rhonchi - Routine Cardiovascular Exam Cardiovascular: Present: S1, S2, tachycardia - Routine Abdominal Exam Present: soft - Routine Skin Exam Present: intact - Routine Neurological Exam Present: alert, oriented X3 Data - Labs CBC & Chem 7: 02/20/24 06:33 02/21/24 08:43 Labs: Laboratory Last Values WBC 16.3 X10*3/uL (4.8-10.8) H 02/20/24 06:33 RBC 3.71 X10*6/uL (4.20-5.50) L 02/20/24 06:33 Hgb 11.0 g/dl (12.0-16.0) L 02/20/24 06:33 Hct 35.2 % (37.0-47.0) L 02/20/24 06:33 MCV 94.9 fL (80.0-98.0) 02/20/24 06:33 MCH 29.6 pg (27.0-33.0) 02/20/24 06:33 MCHC 31.3 g/dl (31.0-35.0) 02/20/24 06:33 RDW 15.2 % (11.0-16.0) 02/20/24 06:33 Plt Count 152 X10*3/uL (160-400) L 02/20/24 06:33 MPV 10.9 fL (9.4-12.3) 02/20/24 06:33 Immature Gran % (Auto) 2.2 % (0.0-0.4) H 02/20/24 06:33 Neut % (Auto) 88.4 % (45-73) H 02/20/24 06:33 Lymph % (Auto) 3.4 % (20-40) L 02/20/24 06:33 [place] % (Auto) 5.6 % (2-11) 02/20/24 06:33 Eos % (Auto) 0.0 % (0-4) 02/20/24 06:33 Baso % (Auto) 0.4 % (0-2) 02/20/24 06:33 Lymph # (Auto) 0.6 X10*3/uL (1.2-4.9) L 02/20/24 06:33 [place] # (Auto) 0.9 X10*3/uL (0.1-1.2) 02/20/24 06:33 Eos # (Auto) 0.0 X10*3/uL (0.0-0.4) 02/20/24 06:33 Baso # (Auto) 0.1 X10*3/uL (0.0-0.2) 02/20/24 06:33 Abs Immat Gran (auto) 0.36 X10*3/uL (0.00-0.03) H 02/20/24 06:33 Absolute Neuts (auto) 14.5 x10*3/uL (2.0-8.3) H 02/20/24 06:33 Absolute Nucleated RBC 0.000 X10*3/uL (0.0-0.012) 02/20/24 06:33 Nucleated RBC % (auto) 0.0 /100WBC (0.0-0.2) 02/20/24 06:33 VBG pH 7.43 (7.32-7.43) 02/17/24 04:40 VBG pCO2 61 mmHg 02/17/24 04:40 VBG pO2 60 mmHg 02/17/24 04:40 VBG HCO3 41 mmol/L (22-26) H 02/17/24 04:40 VBG O2 Saturation 90.0 % 02/17/24 04:40 VBG Base Excess 14.6 mmol/L 02/17/24 04:40 Sodium 139 mmol/L (135-145) 02/20/24 06:33 Potassium 3.8 mmol/L (3.3-5.1) D 02/20/24 06:33 Chloride 95 mmol/L (96-108) L 02/20/24 06:33 Carbon Dioxide 29 mmol/L (22-29) 02/20/24 06:33 Anion Gap 19 (12-20) 02/20/24 06:33 BUN 58 mg/dL (9-16) H 02/20/24 06:33 Creatinine 1.60 mg/dL (0.5-1.4) H 02/20/24 06:33 Estim Creat Clear Calc 43.3 02/20/24 06:33 Estimated GFR 33 02/20/24 06:33 POC Glucose 221 mg/dL (60-115) H 02/17/24 12:03 Random Glucose 307 mg/dL (60-115) H 02/20/24 06:33 Fasting Glucose 308 mg/dL (60-99) H 02/20/24 06:33 Lactic Acid 2.6 mmol/L (0.5-2.0) H* 02/17/24 04:32 Lactic Acid F/U @ 2Hr 2.1 mmol/L (0.5-2.0) H* 02/17/24 06:46 Lactic Acid F/U @ 4Hr 2.4 mmol/L (0.5-2.0) H* 02/17/24 09:16 Calcium 9.5 mg/dL (8.4-10.2) 02/20/24 06:33 Magnesium 2.0 mg/dL (1.6-2.6) 02/17/24 04:32 Total Bilirubin 0.4 mg/dL (0.0-1.0) 02/17/24 04:32 Direct Bilirubin 0.2 mg/dL (0.0-0.5) 02/17/24 04:32 AST 26 U/L (5-31) 02/17/24 04:32 ALT 34 U/L (0-31) H 02/17/24 04:32 Alkaline Phosphatase 54 U/L (39-117) 02/17/24 04:32 Troponin I High Sens 109.5 ng/L (<3.5-17.0) H* 02/17/24 06:46 B-Natriuretic Peptide 488 pg/mL (<100) H 02/17/24 04:32 Total Protein 6.3 g/dL (6.5-8.0) L 02/17/24 04:32 Albumin 4.0 g/dL (3.5-5.0) 02/17/24 04:32 Lipase 46 U/L (8-78) 02/17/24 04:32 Influenza Type A (PCR) NEGATIVE (Negative) 02/17/24 04:40 Influenza Type B (PCR) NEGATIVE (Negative) 02/17/24 04:40 RSV RNA Qual (PCR) NEGATIVE (Negative) 02/17/24 04:40 SARS-CoV-2 RNA (RT-PCR) NEGATIVE (Negative) 02/17/24 04:40 - Imaging Radiologist's impression: ITS Impressions Chest X-Ray 02/17/24 04:26 IMPRESSION: 1. Left lung base opacity which may represent atelectasis or infiltrate. 2. Chronic pleural opacity extending to the left upper lung field. Electronically signed by: Cirilo Carmichael MD 02/17/2024 05:26 [facility] Assessment and Plan Patient Active problem list reviewed?: Yes (1) Non-small cell cancer of right lung Status: Chronic Assessment and plan: 1. This is a pleasant 63-year-old woman with bilateral lung adenocarcinoma. She has been diagnosed with recurrent metastatic lung cancer in the right with bone and brain metastasis in september 2021. Patient started on combination therapy with pembrolizumab, carboplatin and pemetrexed on 11/13/2021. PET-CT performed in August 2023 showed no significant change, right lower lobe lesion measuring 2.3 cm which is very mildly PET avid. Patient has been on single agent pembrolizumab for over a year. She has not received any immunotherapy since December of 2023. She has had multiple admissions for pneumonia, COPD exacerbation and atrial fibrillation. She has been on steroids intermittently for last 3 months. Her symptoms are multifactorial etiology, she may have a component of pneumonitis related to immunotherapy but this should resolve by now as she has not had any immunotherapy for over 2 months. I have discussed with the patient that she needs to go to rehabilitation center, she is not eligible to receive any treatment for her cancer at this time. She will be scheduled for PET scan upon discharge. - Time Spent With Patient Time Spent with Patient (in minutes): 10 Additional Coding: - Additional E/M codes Complex E/M visit Add On: CPT G2211
[2024-02-21 09:47] LABS: Anion Gap 13 (12-20); Blood Urea Nitrogen 52 mg/dL (9-16); Calcium 9.4 mg/dL (8.4-10.2); Carbon Dioxide 34 mmol/L (22-29); Chloride 95 mmol/L (96-108); Creatinine Clr Calc Pharmacy 57.7; Estimated Glomerular Filt Rate 45; Glucose Random 256 mg/dL (60-115); Potassium 4.2 mmol/L (3.3-5.1); Sodium 138 mmol/L (135-145)
--- NOTE | 2024-02-21 10:11 | P.PNIM_ITS ---
Subjective Subjective Date of Service: 02/21/24 Interval History: still sob on exertion Physical Exam 2 Vital Signs: Vital Signs: Last Vital Signs Temp 97.0 F 02/21/24 07:11 Pulse 100 02/21/24 07:23 Resp 20 02/21/24 07:23 BP 160/100 H 02/21/24 07:11 Pulse Ox 95 02/21/24 07:11 O2 Del Method Nasal Cannula 02/21/24 07:11 O2 Flow Rate 3 02/21/24 07:11 BMI result Body Mass Index 33.9 General: AO X 3, no acute distress Resp: wheezing bilateral, no accessory muscles used CVS: S1,S2, irregular GI: soft, non tender, non distended Neuro: motor grossly intact, alert Psych: appropriate affect, appropriate insight Objective Data Active Medications Acetaminophen (Acetaminophen 325 Mg Tablet) 650 mg PO Q6H PRN PRN Reason: Pain, Mild (Pain Scale 1-3), fever or headache Last Admin: 02/18/24 22:26 Dose: 325 mg Documented By: ROXANNE Comments: patient request Apixaban (Apixaban 5 Mg Tablet) 5 mg PO BID [facility] Last Admin: 02/20/24 20:00 Dose: 5 mg Documented By: DARRELL Atorvastatin Calcium (Atorvastatin Calcium 10 Mg Tablet) 10 mg PO BEDTIME [facility] Last Admin: 02/20/24 20:00 Dose: 10 mg Documented By: DARRELL Buprenorphine/Naloxone (Buprenorphine/Naloxone 2/0.5mg Film) 1 film SUBLINGUAL DAILY PRN PRN Reason: Pain, Moderate(Pain Scale 4-6) Last Admin: 02/20/24 16:34 Dose: 1 film Documented By: YESENIA Calcium Carbonate (Calcium Carbonate 750 Mg Tab.Chew) 750 mg PO Q4H PRN PRN Reason: Heartburn Levalbuterol HCl 1.25 mg/ (Ipratropium [place] 0.5 mg) 0 mg INHALE RQ4H WHILE AWAKE [facility] Last Admin: 02/21/24 07:22 Dose: 1 dose Documented By: QUINN Diltiazem HCl (Diltiazem Hcl Cd 240 Mg Cap.Er.Deg) 240 mg PO DAILY [facility]; Protocol Last Admin: 02/20/24 08:40 Dose: 240 mg Documented By: YESENIA Docusate Sodium (Docusate Sodium 100 Mg Capsule) 100 mg PO BEDTIME PRN PRN Reason: Constipation Last Admin: 02/19/24 21:17 Dose: 100 mg Documented By: VARINDER Folic Acid (Folic Acid 1 Mg Tablet) 1 mg PO DAILY [facility] Last Admin: 02/20/24 08:39 Dose: 1 mg Documented By: YESENIA Furosemide (Furosemide 40 Mg Tablet) 40 mg PO DAILY [facility]; Protocol Last Admin: 02/20/24 08:39 Dose: 40 mg Documented By: YESENIA Guaifenesin/Dextromethorphan (Guaifenesin Dm 600/30 1 Tab Tab.Er.12h) 1 tab PO BID [facility] Last Admin: 02/20/24 20:00 Dose: 1 tab Documented By: DARRELL Diltiazem HCl 125 mg/ Sodium (Chloride) 125 mls @ 0 mls/hr IVCONT .Q0M [facility]; Protocol Last Titration: 02/19/24 22:05 Dose: Infused Documented By: VARINDER Levalbuterol HCl (Levalbuterol Hcl 1.25 Mg/3 Ml Vial.Neb) 1.25 mg INHALE Q6H PRN PRN Reason: Shortness of Breath/Wheezing Last Admin: 02/21/24 05:12 Dose: 1.25 mg Documented By: SOHAN Levothyroxine Sodium (Levothyroxine Sodium 25 Mcg Tablet) 25 mcg PO DAILY@0600 [facility] Last Admin: 02/21/24 05:12 Dose: 25 mcg Documented By: DARRELL Magnesium Hydroxide (Milk Of Magnesia 30 Ml Oral.Susp) 30 ml PO DAILY PRN PRN Reason: Constipation Last Admin: 02/20/24 08:39 Dose: 30 ml Documented By: YESENIA Magnesium Oxide (Magnesium Oxide 400 Mg Tablet) 400 mg PO DAILY [facility] Last Admin: 02/20/24 08:40 Dose: 400 mg Documented By: YESENIA Melatonin (Melatonin 3 Mg Tablet) 6 mg PO BEDTIME PRN PRN Reason: Insomnia Last Admin: 02/19/24 21:17 Dose: 6 mg Documented By: VARINDER Methylprednisolone Sodium Succinate (Methylprednisolone Sod Succ 40 Mg/Ml Vial) 40 mg IVPUSH Q12H [facility] Last Admin: 02/21/24 05:11 Dose: 40 mg Documented By: DARRELL Metoprolol Succinate (Metoprolol Succinate Er 50 Mg Tab.Er.24h) 150 mg PO DAILY [facility]; Protocol Last Admin: 02/20/24 08:39 Dose: 150 mg Documented By: YESENIA Morphine Sulfate (Morphine Sulfate 4 Mg/Ml Cartridge) 2 mg IVPUSH Q3H PRN; Protocol PRN Reason: work of breathing Last Admin: 02/20/24 20:06 Dose: 2 mg Documented By: DARRELL Nicotine (Nicotine 21 Mg Patch.Td24) 21 mg TRANSDERMA DAILY PRN PRN Reason: Smoking Cessation Last Admin: 02/20/24 08:38 Dose: 21 mg Documented By: YESENIA Non-Formulary Medication (Milnacipran [Savella]) 50 mg PO BID [facility] Nystatin (Nystatin Powder 15 Gm Bottle) 1 appl TOPICAL TID [facility]; Protocol Last Admin: 02/20/24 20:11 Dose: 1 appl Documented By: DARRELL Omeprazole (Omeprazole 20 Mg Capsule.Dr) 20 mg PO DAILY@0630 [facility] Last Admin: 02/21/24 05:12 Dose: 20 mg Documented By: DARRELL Ondansetron HCl (Ondansetron Hcl 4 Mg/2 Ml Vial) 4 mg IVPUSH Q8H PRN PRN Reason: Nausea and Vomiting Oxycodone HCl (Oxycodone Hcl Immed Release 5 Mg Tablet) 5 mg PO Q6H PRN PRN Reason: Pain, Moderate(Pain Scale 4-6) Last Admin: 02/21/24 00:28 Dose: 5 mg Documented By: DARRELL Paroxetine HCl (Paroxetine Hcl 40 Mg Tablet) 40 mg PO BID [facility] Last Admin: 02/20/24 20:00 Dose: 40 mg Documented By: DARRELL Potassium Chloride (Potassium Chloride Er 20 Meq Tab.Er.Prt) 20 meq PO DAILY [facility] Last Admin: 02/20/24 08:40 Dose: 20 meq Documented By: YESENIA Sodium Chloride (0.9 % Sodium Chloride Flush 3 Ml Syringe) 3 ml IVFLUSH QSHIFT [facility] Last Admin: 02/20/24 20:00 Dose: 3 ml Documented By: DARRELL Labs 02/20/24 06:33 02/21/24 08:43 Labs: Laboratory Results - last 24 hr 02/21/24 08:43 Anion Gap 13 Estim Creat Clear Calc 57.7 Estimated GFR 45 Random Glucose 256 H Calcium 9.4 Microbiology Microbiology Results: Microbiology 02/18/24 07:13 Blood Culture - Preliminary Blood - Venous No growth after 48 hours. 02/18/24 07:13 Blood Culture - Preliminary Blood - Venous No growth after 48 hours. Assessment and Plan (1) Atrial fibrillation with rapid ventricular response: Status: Acute Plan 63F pMH [id number] lung cancer, breast cancer, depression, hepatitis-C, hypertension, chronic diastolic CHF, COPD with chronic hypoxic respiratory failure on 3 L home O2, paroxysmal atrial fibrillation, hypothyroid presented with shortness of breath Acute on chronic hypercapneic and hypoxic respiratory failure secondary to COPD with acute decompensation Continue IV steroids and nebulizers Now back to baseline O2 morphine for dyspnea plan for pulm rehab on discharge Paroxysmal atrial fibrillation with rapid ventricular response Weaned off diltiazem drip Continue oral to 40 mg daily and metoprolol succinate 150 mg daily Continue Eliquis Chronic diastolic CHF Euvolemic continue maintenance Lasix Hypothyroid Continue levothyroxine Stage IV [id number] lung cancer Oncology following DVT prophylaxis with Eliquis Full code reason for continued hospitalization: Still short of breath Quality Stroke Does the patient have a stroke diagnosis?: No VTE Prior VTE?: No VTE Risk Level:: Medical - moderate - high VTE Device Contraindication: N/A - Device Ordered VTE Drug Contraindication: N/A - Med Ordered
[2024-02-21] MEDS: dilTIAZem HCL CD 240 MG CAP.ER.DEG PO (10:26)
[2024-02-21] MEDS: guaiFENesin DM 600/30 1 TAB TAB.ER.12H PO ×2 (10:27→20:44)
[2024-02-21] MEDS: Metoprolol Succinate ER 50 MG TAB.ER.24H 150 MG PO (10:27)
[2024-02-21] MEDS: Potassium Chloride ER 20 MEQ TAB.ER.PRT PO (10:27)
[2024-02-21] MEDS: Magnesium Oxide 400 MG TABLET PO (10:27)
[2024-02-21] MEDS: Nystatin Powder 15 GM BOTTLE 1 APPL TOPICAL ×3 (10:28→20:48)
[2024-02-21] MEDS: Furosemide 40 MG TABLET PO (10:28)
[2024-02-21] MEDS: 0.9 % Sodium Chloride Flush 3 ML SYRINGE IVFLUSH ×3 (10:28→20:47)
[2024-02-21] MEDS: PARoxetine HCL 40 MG TABLET PO ×2 (10:28→20:45)
[2024-02-21] MEDS: Folic Acid 1 MG TABLET PO (10:28)
[2024-02-21] MEDS: Apixaban 5 MG TABLET PO ×2 (10:28→20:45)
[2024-02-21] MEDS: Nicotine 21 MG PATCH.TD24 TRANSDERMA (10:35)
--- NOTE | 2024-02-21 11:56 | MHC.CM.PN ---
EMR REVIEWED, PT W/PNEUMONITIS, AFIB W/RVR, PT'S WBC INCREASING, BC'S POSITIVE AND REDRAW PENDING, P.T. EVAL REQUESTED, CM WILL CONT TO FOLLOW DC NEEDS.
[2024-02-21] MEDS: Morphine Sulfate 4 MG/ML CARTRIDGE 2 MG IVPUSH (17:52)
[2024-02-21] MEDS: Atorvastatin Calcium 10 MG TABLET PO (20:45)
[2024-02-21] MEDS: Buprenorphine/Naloxone 2/0.5mg FILM 1 FILM SUBLINGUAL (20:46)
[2024-02-22] VITALS (12 sets, daily range): BP systolic 125–167; BP diastolic 88–110; PULSE 76–114; RESP 16–24; TEMP 36–36.6; O2SAT 89–96
[2024-02-22] MEDS: Morphine Sulfate 4 MG/ML CARTRIDGE 2 MG IVPUSH (01:50)
[2024-02-22] MEDS: levalbuterol HCL 1.25 MG/3 ML VIAL.NEB INHALE (03:03)
[2024-02-22] MEDS: Levothyroxine Sodium 25 MCG TABLET PO (06:06)
[2024-02-22] MEDS: methylPREDNISolone Sod Succ 40 MG/ML VIAL IVPUSH ×2 (06:06→17:30)
[2024-02-22] MEDS: Omeprazole 20 MG CAPSULE.DR PO (06:06)
[2024-02-22] MEDS: levalbuterol HCL 1.25 MG, Ipratropium Bromide 0.5 MG INHALE ×4 (08:34→21:43)
--- NOTE | 2024-02-22 09:30 | HO.PM.IMPN ---
Subjective Subjective Date of Service: 02/22/24 Interval History: sob improving Physical Exam Vital Signs: Vital Signs: Last Vital Signs Temp 97.9 F 02/22/24 07:12 Pulse 96 02/22/24 08:43 Resp 22 H 02/22/24 08:43 BP 163/105 H 02/22/24 07:12 Pulse Ox 94 02/22/24 07:12 O2 Del Method Nasal Cannula 02/22/24 07:12 O2 Flow Rate 4 02/22/24 07:12 BMI result Body Mass Index 33.9 General: AO X 3, no acute distress Resp: less wheezing bilateral, no accessory muscles used CVS: S1,S2, irregular GI: soft, non tender, non distended Neuro: motor grossly intact, alert Psych: appropriate affect, appropriate insight Objective Data Active Medications Acetaminophen (Acetaminophen 325 Mg Tablet) 650 mg PO Q6H PRN PRN Reason: Pain, Mild (Pain Scale 1-3), fever or headache Last Admin: 02/18/24 22:26 Dose: 325 mg Documented By: ROXANNE Comments: patient request Apixaban (Apixaban 5 Mg Tablet) 5 mg PO BID [facility] Last Admin: 02/21/24 20:45 Dose: 5 mg Documented By: DARRELL Atorvastatin Calcium (Atorvastatin Calcium 10 Mg Tablet) 10 mg PO BEDTIME [facility] Last Admin: 02/21/24 20:45 Dose: 10 mg Documented By: DARRELL Buprenorphine/Naloxone (Buprenorphine/Naloxone 2/0.5mg Film) 1 film SUBLINGUAL DAILY PRN PRN Reason: Pain, Moderate(Pain Scale 4-6) Last Admin: 02/21/24 20:46 Dose: 1 film Documented By: DARRELL Calcium Carbonate (Calcium Carbonate 750 Mg Tab.Chew) 750 mg PO Q4H PRN PRN Reason: Heartburn Levalbuterol HCl 1.25 mg/ (Ipratropium [place] 0.5 mg) 0 mg INHALE RQ4H WHILE AWAKE [facility] Last Admin: 02/22/24 08:34 Dose: 1 dose Documented By: YAHIR Diltiazem HCl (Diltiazem Hcl Cd 240 Mg Cap.Er.Deg) 240 mg PO DAILY [facility]; Protocol Last Admin: 02/21/24 10:26 Dose: 240 mg Documented By: TIM Docusate Sodium (Docusate Sodium 100 Mg Capsule) 100 mg PO BEDTIME PRN PRN Reason: Constipation Last Admin: 02/19/24 21:17 Dose: 100 mg Documented By: VARINDER Folic Acid (Folic Acid 1 Mg Tablet) 1 mg PO DAILY [facility] Last Admin: 02/21/24 10:28 Dose: 1 mg Documented By: TIM Furosemide (Furosemide 40 Mg Tablet) 40 mg PO DAILY [facility]; Protocol Last Admin: 02/21/24 10:28 Dose: 40 mg Documented By: TIM Guaifenesin/Dextromethorphan (Guaifenesin Dm 600/30 1 Tab Tab.Er.12h) 1 tab PO BID [facility] Last Admin: 02/21/24 20:44 Dose: 1 tab Documented By: DARRELL Levalbuterol HCl (Levalbuterol Hcl 1.25 Mg/3 Ml Vial.Neb) 1.25 mg INHALE Q6H PRN PRN Reason: Shortness of Breath/Wheezing Last Admin: 02/22/24 03:03 Dose: 1.25 mg Documented By: MARCOS Levothyroxine Sodium (Levothyroxine Sodium 25 Mcg Tablet) 25 mcg PO DAILY@0600 [facility] Last Admin: 02/22/24 06:06 Dose: 25 mcg Documented By: DARRELL Magnesium Hydroxide (Milk Of Magnesia 30 Ml Oral.Susp) 30 ml PO DAILY PRN PRN Reason: Constipation Last Admin: 02/20/24 08:39 Dose: 30 ml Documented By: YESENIA Magnesium Oxide (Magnesium Oxide 400 Mg Tablet) 400 mg PO DAILY [facility] Last Admin: 02/21/24 10:27 Dose: 400 mg Documented By: TIM Melatonin (Melatonin 3 Mg Tablet) 6 mg PO BEDTIME PRN PRN Reason: Insomnia Last Admin: 02/19/24 21:17 Dose: 6 mg Documented By: VARINDER Methylprednisolone Sodium Succinate (Methylprednisolone Sod Succ 40 Mg/Ml Vial) 40 mg IVPUSH Q12H [facility] Last Admin: 02/22/24 06:06 Dose: 40 mg Documented By: DARRELL Metoprolol Succinate (Metoprolol Succinate Er 50 Mg Tab.Er.24h) 150 mg PO DAILY [facility]; Protocol Last Admin: 02/21/24 10:27 Dose: 150 mg Documented By: TIM Morphine Sulfate (Morphine Sulfate 4 Mg/Ml Cartridge) 2 mg IVPUSH Q3H PRN; Protocol PRN Reason: work of breathing Last Admin: 02/22/24 01:50 Dose: 2 mg Documented By: DARRELL Nicotine (Nicotine 21 Mg Patch.Td24) 21 mg TRANSDERMA DAILY PRN PRN Reason: Smoking Cessation Last Admin: 02/21/24 10:35 Dose: 21 mg Documented By: TIM Non-Formulary Medication (Milnacipran [Savella]) 50 mg PO BID [facility] Nystatin (Nystatin Powder 15 Gm Bottle) 1 appl TOPICAL TID [facility]; Protocol Last Admin: 02/21/24 20:48 Dose: 1 appl Documented By: DARRELL Omeprazole (Omeprazole 20 Mg Capsule.Dr) 20 mg PO DAILY@0630 [facility] Last Admin: 02/22/24 06:06 Dose: 20 mg Documented By: DARRELL Ondansetron HCl (Ondansetron Hcl 4 Mg/2 Ml Vial) 4 mg IVPUSH Q8H PRN PRN Reason: Nausea and Vomiting Oxycodone HCl (Oxycodone Hcl Immed Release 5 Mg Tablet) 5 mg PO Q6H PRN PRN Reason: Pain, Moderate(Pain Scale 4-6) Last Admin: 02/21/24 22:33 Dose: 5 mg Documented By: DARRELL Paroxetine HCl (Paroxetine Hcl 40 Mg Tablet) 40 mg PO BID [facility] Last Admin: 02/21/24 20:45 Dose: 40 mg Documented By: DARRELL Potassium Chloride (Potassium Chloride Er 20 Meq Tab.Er.Prt) 20 meq PO DAILY [facility] Last Admin: 02/21/24 10:27 Dose: 20 meq Documented By: TIM Sodium Chloride (0.9 % Sodium Chloride Flush 3 Ml Syringe) 3 ml IVFLUSH QSHIFT [facility] Last Admin: 02/21/24 20:47 Dose: 3 ml Documented By: DARRELL Labs 02/20/24 06:33 02/21/24 08:43 Labs: Laboratory Results - last 24 hr 02/21/24 08:43 Anion Gap 13 Estim Creat Clear Calc 57.7 Estimated GFR 45 Random Glucose 256 H Calcium 9.4 Microbiology Microbiology Results: Microbiology 02/17/24 04:32 Blood Culture - Final Blood - Venous No growth after 5 days. Assessment and Plan (1) Atrial fibrillation with rapid ventricular response: Status: Acute Plan 63F pMH [id number] lung cancer, breast cancer, depression, hepatitis-C, hypertension, chronic diastolic CHF, COPD with chronic hypoxic respiratory failure on 3 L home O2, paroxysmal atrial fibrillation, hypothyroid presented with shortness of breath Acute on chronic hypercapneic and hypoxic respiratory failure secondary to COPD with acute decompensation Continue IV steroids and nebulizers Now back to baseline O2 morphine for dyspnea plan for pulm rehab on discharge Paroxysmal atrial fibrillation with rapid ventricular response Weaned off diltiazem drip Continue oral [id number] mg daily and metoprolol succinate 150 mg daily Continue Eliquis Chronic diastolic CHF Euvolemic continue maintenance Lasix Hypothyroid Continue levothyroxine Stage IV cpy-yhjlo-zecr lung cancer Oncology following DVT prophylaxis with Eliquis Full code reason for continued hospitalization: safe dispo Quality Stroke Does the patient have a stroke diagnosis?: No VTE Prior VTE?: No VTE Risk Level:: Medical - moderate - high VTE Device Contraindication: N/A - Device Ordered VTE Drug Contraindication: N/A - Med Ordered
[2024-02-22] MEDS: Furosemide 40 MG TABLET PO (10:36)
[2024-02-22] MEDS: Metoprolol Succinate ER 50 MG TAB.ER.24H 150 MG PO (10:36)
[2024-02-22] MEDS: Folic Acid 1 MG TABLET PO (10:36)
[2024-02-22] MEDS: guaiFENesin DM 600/30 1 TAB TAB.ER.12H PO ×2 (10:36→20:18)
[2024-02-22] MEDS: Apixaban 5 MG TABLET PO ×2 (10:36→20:18)
[2024-02-22] MEDS: dilTIAZem HCL CD 240 MG CAP.ER.DEG PO (10:36)
[2024-02-22] MEDS: Potassium Chloride ER 20 MEQ TAB.ER.PRT PO (10:37)
[2024-02-22] MEDS: Magnesium Oxide 400 MG TABLET PO (10:37)
[2024-02-22] MEDS: PARoxetine HCL 40 MG TABLET PO ×2 (10:37→20:18)
[2024-02-22] MEDS: 0.9 % Sodium Chloride Flush 3 ML SYRINGE IVFLUSH ×3 (10:39→20:20)
[2024-02-22] MEDS: Nystatin Powder 15 GM BOTTLE 1 APPL TOPICAL ×3 (10:40→20:21)
--- NOTE | 2024-02-22 10:44 | MHC.CM.PN ---
Addendum entered by Magi Guillory RN 02/22/24 13:44: PT HAS NO BED OFFERS FROM [facility], REFERR[facility]PAND[facility], [facility] HOWEVER PT IS ON SUBOXONE WHICH IS A BARRIER TO PLACEMENT, CM WILL CONT TO FOLLOW. Original Note: EMR REVIEWED, PT MEDICALLY CLEARED FOR DC TO STR, PT AWAITING BED OFFERS AND ONLY PREFERENCE IS TO REMAIN IN [place], PT AGREEABLE TO REFERRAL TO ALL [facility] CONTRACTED W/MEDICAID, CM WILL CONT TO FOLLOW.
[2024-02-22] MEDS: oxyCODONE HCl Immed Release 5 MG TABLET PO ×2 (10:46→20:18)
[2024-02-22] MEDS: Atorvastatin Calcium 10 MG TABLET PO (20:18)
[2024-02-23] VITALS (17 sets, daily range): BP systolic 136–160; BP diastolic 62–113; PULSE 93–118; RESP 16–24; TEMP 36–36.9; O2SAT 92–98
[2024-02-23] MEDS: levalbuterol HCL 1.25 MG/3 ML VIAL.NEB INHALE ×2 (01:31→23:50)
[2024-02-23] MEDS: Morphine Sulfate 4 MG/ML CARTRIDGE 2 MG IVPUSH (01:41)
[2024-02-23] MEDS: methylPREDNISolone Sod Succ 40 MG/ML VIAL IVPUSH ×2 (05:24→17:35)
[2024-02-23] MEDS: oxyCODONE HCl Immed Release 5 MG TABLET PO ×2 (05:31→21:14)
[2024-02-23] MEDS: Omeprazole 20 MG CAPSULE.DR PO (05:31)
[2024-02-23] MEDS: Levothyroxine Sodium 25 MCG TABLET PO (05:31)
[2024-02-23] MEDS: levalbuterol HCL 1.25 MG, Ipratropium Bromide 0.5 MG INHALE ×4 (07:41→20:47)
[2024-02-23] MEDS: dilTIAZem HCL CD 240 MG CAP.ER.DEG PO (08:03)
[2024-02-23] MEDS: Nystatin Powder 15 GM BOTTLE 1 APPL TOPICAL ×2 (08:04→21:15)
[2024-02-23] MEDS: Folic Acid 1 MG TABLET PO (08:04)
[2024-02-23] MEDS: 0.9 % Sodium Chloride Flush 3 ML SYRINGE IVFLUSH ×2 (08:04→20:39)
[2024-02-23] MEDS: PARoxetine HCL 40 MG TABLET PO ×2 (08:04→20:39)
[2024-02-23] MEDS: Potassium Chloride ER 20 MEQ TAB.ER.PRT PO (08:04)
[2024-02-23] MEDS: Furosemide 40 MG TABLET PO (08:04)
[2024-02-23] MEDS: Magnesium Oxide 400 MG TABLET PO (08:04)
[2024-02-23] MEDS: guaiFENesin DM 600/30 1 TAB TAB.ER.12H PO ×2 (08:04→20:39)
[2024-02-23] MEDS: Metoprolol Succinate ER 50 MG TAB.ER.24H 150 MG PO (08:04)
[2024-02-23] MEDS: Apixaban 5 MG TABLET PO ×2 (08:04→20:39)
--- NOTE | 2024-02-23 08:18 | MHC.CM.PN ---
Addendum entered by Magi Guillory RN 02/23/24 12:13: PER HOSPITALIST PT WILL [facility] INPT OVERNIGHT, [facility] UPDATED AND TRANSPORT FOR 1:30PM CANCELLED. Original Note: EMR REVIEWED, PT AGREEABLE TO BED OFFER AT [facility], SNF REQUESTING MDS, LESS THAN 30 DAY AND A WEEK SCRIPT FOR PT'S SUBOXONE, MDS COMPLETED AND SENT TO SNF VIA [facility] AND FAXED TO [facility] MDS SCREENING DEPT, CM WILL CONT TO FOLLOW.
[2024-02-23] MEDS: Buprenorphine/Naloxone 2/0.5mg FILM 1 FILM SUBLINGUAL (08:22)
--- NOTE | 2024-02-23 14:53 | HO.PM.IMPN ---
Subjective Subjective Date of Service: 02/23/24 Interval History: Still complaining of shortness of breath in the backdrop of anxiety. Clinically no acute events overnight Review of Systems Admits shortness of breath Denies chest pain Denies nausea vomiting diarrhea Denies fever chills Physical Exam Vital Signs: Vital Signs: Last Vital Signs Temp 98.0 F 02/23/24 11:41 Pulse 96 02/23/24 11:41 Resp 22 H 02/23/24 11:41 BP 141/97 H 02/23/24 11:41 Pulse Ox 98 02/23/24 11:41 O2 Del Method Nasal Cannula 02/23/24 11:41 O2 Flow Rate 4 02/23/24 11:41 BMI result Body Mass Index 33.9 Const: Other: Awake alert no acute distress Resp: Other: Diminished throughout with scattered coarse rhonchi and expiratory wheezes Cardio: Other: No S4; positive S1-S2; no S3 murmurs rubs or gallops GI: Other: Soft nontender nondistended normoactive bowel sounds Extrem: Other: No edema bilaterally Objective Data Active Medications Acetaminophen (Acetaminophen 325 Mg Tablet) 650 mg PO Q6H PRN PRN Reason: Pain, Mild (Pain Scale 1-3), fever or headache Last Admin: 02/18/24 22:26 Dose: 325 mg Documented By: ROXANNE Comments: patient request Apixaban (Apixaban 5 Mg Tablet) 5 mg PO BID [facility] Last Admin: 02/23/24 08:04 Dose: 5 mg Documented By: PEDRO Atorvastatin Calcium (Atorvastatin Calcium 10 Mg Tablet) 10 mg PO BEDTIME [facility] Last Admin: 02/22/24 20:18 Dose: 10 mg Documented By: DARRELL Buprenorphine/Naloxone (Buprenorphine/Naloxone 2/0.5mg Film) 1 film SUBLINGUAL DAILY PRN PRN Reason: Pain, Moderate(Pain Scale 4-6) Last Admin: 02/23/24 08:22 Dose: 1 film Documented By: PEDRO Calcium Carbonate (Calcium Carbonate 750 Mg Tab.Chew) 750 mg PO Q4H PRN PRN Reason: Heartburn Levalbuterol HCl 1.25 mg/ (Ipratropium [place] 0.5 mg) 0 mg INHALE RQ4H WHILE AWAKE [facility] Last Admin: 02/23/24 11:26 Dose: 1 dose Documented By: QUINN Diltiazem HCl (Diltiazem Hcl Cd 240 Mg Cap.Er.Deg) 240 mg PO DAILY [facility]; Protocol Last Admin: 02/23/24 08:03 Dose: 240 mg Documented By: PEDRO Docusate Sodium (Docusate Sodium 100 Mg Capsule) 100 mg PO BEDTIME PRN PRN Reason: Constipation Last Admin: 02/19/24 21:17 Dose: 100 mg Documented By: VRAINDER Folic Acid (Folic Acid 1 Mg Tablet) 1 mg PO DAILY [facility] Last Admin: 02/23/24 08:04 Dose: 1 mg Documented By: PEDRO Furosemide (Furosemide 40 Mg Tablet) 40 mg PO DAILY [facility]; Protocol Last Admin: 02/23/24 08:04 Dose: 40 mg Documented By: PEDRO Guaifenesin/Dextromethorphan (Guaifenesin Dm 600/30 1 Tab Tab.Er.12h) 1 tab PO BID [facility] Last Admin: 02/23/24 08:04 Dose: 1 tab Documented By: PEDRO Levalbuterol HCl (Levalbuterol Hcl 1.25 Mg/3 Ml Vial.Neb) 1.25 mg INHALE Q6H PRN PRN Reason: Shortness of Breath/Wheezing Last Admin: 02/23/24 01:31 Dose: 1.25 mg Documented By: MARCOS Levothyroxine Sodium (Levothyroxine Sodium 25 Mcg Tablet) 25 mcg PO DAILY@0600 [facility] Last Admin: 02/23/24 05:31 Dose: 25 mcg Documented By: DARRELL Magnesium Hydroxide (Milk Of Magnesia 30 Ml Oral.Susp) 30 ml PO DAILY PRN PRN Reason: Constipation Last Admin: 02/20/24 08:39 Dose: 30 ml Documented By: TIGRECIBRAD Magnesium Oxide (Magnesium Oxide 400 Mg Tablet) 400 mg PO DAILY [facility] Last Admin: 02/23/24 08:04 Dose: 400 mg Documented By: PEDRO Melatonin (Melatonin 3 Mg Tablet) 6 mg PO BEDTIME PRN PRN Reason: Insomnia Last Admin: 02/19/24 21:17 Dose: 6 mg Documented By: VARINDER Methylprednisolone Sodium Succinate (Methylprednisolone Sod Succ 40 Mg/Ml Vial) 40 mg IVPUSH Q12H [facility] Last Admin: 02/23/24 05:24 Dose: 40 mg Documented By: DARRELL Metoprolol Succinate (Metoprolol Succinate Er 50 Mg Tab.Er.24h) 150 mg PO DAILY [facility]; Protocol Last Admin: 02/23/24 08:04 Dose: 150 mg Documented By: PEDRO Nicotine (Nicotine 21 Mg Patch.Td24) 21 mg TRANSDERMA DAILY PRN PRN Reason: Smoking Cessation Last Admin: 02/21/24 10:35 Dose: 21 mg Documented By: TIM Non-Formulary Medication (Milnacipran [Savella]) 50 mg PO BID [facility] Nystatin (Nystatin Powder 15 Gm Bottle) 1 appl TOPICAL TID [facility]; Protocol Last Admin: 02/23/24 08:04 Dose: 1 appl Documented By: PEDRO Omeprazole (Omeprazole 20 Mg Capsule.Dr) 20 mg PO DAILY@0630 [facility] Last Admin: 02/23/24 05:31 Dose: 20 mg Documented By: DARRELL Ondansetron HCl (Ondansetron Hcl 4 Mg/2 Ml Vial) 4 mg IVPUSH Q8H PRN PRN Reason: Nausea and Vomiting Oxycodone HCl (Oxycodone Hcl Immed Release 5 Mg Tablet) 5 mg PO Q6H PRN PRN Reason: Pain, Moderate(Pain Scale 4-6) Last Admin: 02/23/24 05:31 Dose: 5 mg Documented By: DARRELL Paroxetine HCl (Paroxetine Hcl 40 Mg Tablet) 40 mg PO BID [facility] Last Admin: 02/23/24 08:04 Dose: 40 mg Documented By: PEDRO Potassium Chloride (Potassium Chloride Er 20 Meq Tab.Er.Prt) 20 meq PO DAILY [facility] Last Admin: 02/23/24 08:04 Dose: 20 meq Documented By: PEDRO Sodium Chloride (0.9 % Sodium Chloride Flush 3 Ml Syringe) 3 ml IVFLUSH QSHIFT [facility] Last Admin: 02/23/24 08:04 Dose: 3 ml Documented By: PEDRO Labs 02/20/24 06:33 02/21/24 08:43 Microbiology Microbiology Results: Microbiology 02/18/24 07:13 Blood Culture - Final Blood - Venous No growth after 5 days. 02/18/24 07:13 Blood Culture - Final Blood - Venous No growth after 5 days. Assessment and Plan (1) Acute and chronic respiratory failure: Status: Acute Plan 63F pMH [id number] lung cancer, breast cancer, depression, hepatitis-C, hypertension, chronic diastolic CHF, COPD with chronic hypoxic respiratory failure on 3 L home O2, paroxysmal atrial fibrillation, hypothyroid presented with shortness of breath 1.Acute on chronic hypercapneic and hypoxic respiratory failure secondary to COPD with acute decompensation in backdrop of stage IV [id number]-bklj lung cancer -continue IV steroids and nebulizers -baseline O2 -DC morphine for dyspnea; continue orals -plan for pulm rehab on discharge 2.Paroxysmal atrial fibrillation with rapid ventricular response -acceptable control on current therapies -adjust as indicated -Eliquis as ordered 3.hronic diastolic CHF -stable and well compensated Eliquis Full code Requires ongoing hospitalization to DC morphine and follow response prior to discharge Quality Stroke Does the patient have a stroke diagnosis?: No VTE Prior VTE?: No VTE Risk Level:: Medical - moderate - high VTE Device Contraindication: N/A - Device Ordered VTE Drug Contraindication: N/A - Med Ordered
[2024-02-23] MEDS: Melatonin 3 MG TABLET 6 MG PO (20:39)
[2024-02-23] MEDS: Atorvastatin Calcium 10 MG TABLET PO (20:39)
[2024-02-24] VITALS (8 sets, daily range): BP systolic 141–169; BP diastolic 72–95; PULSE 96–125; RESP 17–92; TEMP 36.2–36.4; O2SAT 19–94
[2024-02-24] MEDS: levalbuterol HCL 1.25 MG/3 ML VIAL.NEB INHALE (04:02)
[2024-02-24] MEDS: Levothyroxine Sodium 25 MCG TABLET PO (05:50)
[2024-02-24] MEDS: Omeprazole 20 MG CAPSULE.DR PO (05:50)
[2024-02-24] MEDS: methylPREDNISolone Sod Succ 40 MG/ML VIAL IVPUSH (05:50)
[2024-02-24 06:53] LABS: MANUAL DIFF FLAG NO
[2024-02-24 07:01] LABS: Basophils Absolute Auto 0.1 X10*3/uL (0.0-0.2); Basophils Percent Auto 0.3 % (0-2); Hematocrit 35.2 % (37.0-47.0); Hemoglobin 11.4 g/dl (12.0-16.0); Imm Gran Abs Auto 0.46 X10*3/uL (0.00-0.03); Imm Gran Pct Auto 3.2 % (0.0-0.4); Lymphocytes Absolute Auto 0.4 X10*3/uL (1.2-4.9); Lymphocytes Percent Auto 2.7 % (20-40); Mean Corpuscular HGB Conc 32.4 g/dl (31.0-35.0); Mean Corpuscular Hemoglobin 30.1 pg (27.0-33.0); Mean Corpuscular Volume 92.9 fL (80.0-98.0); Mean Platelet Volume 10.5 fL (9.4-12.3); Monocytes Absolute Auto 0.7 X10*3/uL (0.1-1.2); Monocytes Percent Auto 4.5 % (2-11); NRBC Pct Auto 0.1 /100WBC (0.0-0.2); Neutrophils Absolute Auto 12.9 x10*3/uL (2.0-8.3); Neutrophils Percent Auto 89.3 % (45-73); Platelet Count 132 X10*3/uL (160-400); Red Blood Count 3.79 X10*6/uL (4.20-5.50); Red Cell Distribution Width 15.2 % (11.0-16.0); White Blood Count 14.5 X10*3/uL (4.8-10.8)
[2024-02-24 07:20] LABS: Alanine Aminotransferase 42 U/L (0-31); Albumin Level 3.7 g/dL (3.5-5.0); Alkaline Phosphatase 54 U/L (39-117); Anion Gap 15 (12-20); Aspartate Amino Transferase 20 U/L (5-31); Bilirubin Total 0.4 mg/dL (0.0-1.0); Blood Urea Nitrogen 52 mg/dL (9-16); Calcium 9.7 mg/dL (8.4-10.2); Carbon Dioxide 37 mmol/L (22-29); Chloride 92 mmol/L (96-108); Creatinine Clr Calc Pharmacy 53.2; Estimated Glomerular Filt Rate 41; Glucose Fasting 336 mg/dL (60-99); Potassium 4.7 mmol/L (3.3-5.1); Sodium 139 mmol/L (135-145); Total Protein 5.9 g/dL (6.5-8.0)
[2024-02-24] MEDS: levalbuterol HCL 1.25 MG, Ipratropium Bromide 0.5 MG INHALE ×2 (08:18→12:03)
[2024-02-24] MEDS: dilTIAZem HCL CD 240 MG CAP.ER.DEG PO (09:03)
[2024-02-24] MEDS: Furosemide 40 MG TABLET PO (09:09)
[2024-02-24] MEDS: Metoprolol Succinate ER 50 MG TAB.ER.24H 150 MG PO (09:09)
[2024-02-24] MEDS: Folic Acid 1 MG TABLET PO (09:09)
[2024-02-24] MEDS: PARoxetine HCL 40 MG TABLET PO (09:09)
[2024-02-24] MEDS: Potassium Chloride ER 20 MEQ TAB.ER.PRT PO (09:09)
[2024-02-24] MEDS: Apixaban 5 MG TABLET PO (09:09)
[2024-02-24] MEDS: Magnesium Oxide 400 MG TABLET PO (09:09)
[2024-02-24] MEDS: guaiFENesin DM 600/30 1 TAB TAB.ER.12H PO (09:10)
[2024-02-24] MEDS: 0.9 % Sodium Chloride Flush 3 ML SYRINGE IVFLUSH (09:10)
[2024-02-24] MEDS: Nystatin Powder 15 GM BOTTLE 1 APPL TOPICAL (09:13)
[2024-02-24] MEDS: oxyCODONE HCl Immed Release 5 MG TABLET PO (09:15)
--- NOTE | 2024-02-24 11:18 | MHC.CM.PN ---
PT DISCHARGING TO STR AT [facility] AT 1:30PM VIA [facility] FOR BLS TRANSPORT
--- NOTE | 2024-02-24 13:19 | P.DS_ITS ---
DS: Providers Provider Date of Service: 02/24/24 Date of admission: 02/17/24 11:32 Date of discharge: 02/24/24 Primary care physician: Erik Agee MD Consults: 02/17/24 12:00 Consult to Hematology / Oncology Routine Consulting Provider: Alexandria Samuels Reason for consultation: recurrent pneumonitis ?secondary to PDL1 inhibitor Has provider been notified: No DS: Diagnosis Discharge Diagnosis (1) Acute and chronic respiratory failure: Status: Acute (2) Atrial fibrillation with rapid ventricular response: Status: Acute DS: Summary Hospital Course Hospital Course: 63-year-old female with a past medical history significant for non small-cell lung cancer (s/p LITA/RUL lobectomies) with mets on palliative chemotherapy, br east cancer, depression, hepatitis-C, HTN, CHF (recent echo, EF 60-65%), COPD with chronic respiratory failure on 3 L O2 at home, AFib (on Eliquis, diltiazem and metoprolol), hypothyroid and chronic pain on Suboxone, who presented to the ED this morning due to sudden chest pain and SOB this morning after waking up to urinate. She called EMS and O2 saturation was in the 70s and she was transition ed to CPAP. She had good improved range of saturations after this. She denies any headache, sore throat, nasal congestion, runny nose, cough, abdominal pain, nausea, vomiting, diarrhea. No recent sick contacts. She was recently discharged on 02/13/2024 for possible pneumonitis due to the PD-L1 inhibitor she takes or lung cancer, as well as an acute COPD exacerbation and acute CHF exacerbation. Prior to this she also had a recent admission for AFib with RVR discharged on 02/02 and acute on chronic respiratory failure due to pneumonia and COPD exacerbation discharged on 01/28. She notes improvement with the prednisone and breathing treatment. Chest pain has resolved and shortness of breath have improved. Hospital Course Patient admitted to the floor and started on diltiazem drip to control rate. Ultimately drip was able to be DC in favor of oral diltiazem and metoprolol. She was treated with azithromycin empirically for COPD exacerbation along with pulse dose steroids. She had a mild troponin leak which was related to her atrial fibrillation with rapid ventricular response. Similar to past hospitalizations, patient continued to do well over the next several days and on the day of discharge was back to baseline. At this point in time, she will be transferred back to [facility] with essentially no changes in her medication save a prednisone taper. Scripts have been sent for Suboxone as well as oxycodone short term. Further plans as per receiving facility Time Attestation Discharge Coordination Time (in mins): 35 Quality: Safe Use of Opioids Does Pt have an Active Cancer Diagnosis on the Problem List?: Yes Opioid Measure Date for [facility] Report: 01/25/24 Opioid Measure Time for [facility] Report: 13:24 Quality: Stroke Does the patient have a stroke diagnosis?: No Physical Exam Vital Signs: Vital Signs: Last Vital Signs Temp 97.4 F 02/24/24 11:16 Pulse 96 02/24/24 12:03 Resp 20 02/24/24 12:03 BP 169/90 H 02/24/24 11:16 Pulse Ox 94 02/24/24 11:16 O2 Del Method Nasal Cannula 02/24/24 11:16 O2 Flow Rate 4 02/24/24 11:16 FiO2 30 02/24/24 03:56 BMI result Body Mass Index 33.9 Const: Other: Awake alert no acute distress Resp: Other: Diminished throughout with scattered coarse rhonchi and expiratory wheezes Cardio: Other: No S4; positive S1-S2; no S3 murmurs rubs or gallops GI: Other: Soft nontender nondistended normoactive bowel sounds Extrem: Other: No edema bilaterally DS: Data Data Completed and Pending Completed studies during hospitalization [Text1]: Procedures Drainage of Left Pleural Cavity, Percutaneous Approach (07/09/23) Inspection of Lower Intestinal Tract, Via Natural or Artificial Opening Endoscopic (12/01/23) Transfusion of Nonautologous Platelets into Peripheral Vein, Percutaneous Approach (01/24/22) Transfusion of Nonautologous Red Blood Cells into Peripheral Vein, Percutaneous Approach (02/18/22) Labs on day of discharge: Laboratory Results - last 24 hr 02/24/24 06:40 WBC 14.5 H RBC 3.79 L Hgb 11.4 L Hct 35.2 L MCV 92.9 MCH 30.1 MCHC 32.4 RDW 15.2 Plt Count 132 L MPV 10.5 Immature Gran % (Auto) 3.2 H Neut % (Auto) 89.3 H Lymph % (Auto) 2.7 L Kendall % (Auto) 4.5 Eos % (Auto) 0.0 Baso % (Auto) 0.3 Lymph # (Auto) 0.4 L Kendall # (Auto) 0.7 Eos # (Auto) 0.0 Baso # (Auto) 0.1 Abs Immat Gran (auto) 0.46 H Absolute Neuts (auto) 12.9 H Absolute Nucleated RBC 0.020 H Nucleated RBC % (auto) 0.1 Sodium 139 Potassium 4.7 Chloride 92 L Carbon Dioxide 37 H Anion Gap 15 BUN 52 H Creatinine 1.30 Estim Creat Clear Calc 53.2 Estimated GFR 41 Fasting Glucose 336 H Calcium 9.7 Total Bilirubin 0.4 AST 20 ALT 42 H Alkaline Phosphatase 54 Total Protein 5.9 L Albumin 3.7 Discharge Plan Discharge Anticipated Discharge Date/Time: 02/24/24 13:11 Patient Disposition: Xfer SNF Discharge Diagnosis: Acute on chronic respiratory failure Referrals: [facility] [Outside] - 1 Week Erik Agee MD [Primary Care Provider] - 1 Week Discharge Medications: New oxycodone 5 mg Tablet 5 mg PO Q6H PRN (Reason: Pain, Moderate(Pain Scale 4-6)) Qty: 30 0RF Rx Instructions: Partial Fill upon patient request. prednisone 10 mg tablet See Rx Instructions .Route .COMPLEX Qty: 45 0RF Rx Instructions: 10 mg orally; 5 tabs p.o. daily x3 days; 4 tabs p.o. daily x3 days; 3 tabs daily x3 days; 2 tabs daily x3 days; 1 tab daily x3 days Continued levothyroxine [Synthroid] 25 mcg tablet 25 mcg PO DAILY@0600 0RF potassium chloride [K-Tab] 20 mEq Tablet Extended Release 20 meq PO DAILY Qty: 30 0RF folic acid 1 mg tablet 1 mg PO DAILY Qty: 90 3RF paroxetine HCl 20 mg tablet 40 mg PO BID omeprazole 20 mg capsule,delayed release(DR/EC) 20 mg PO DAILY@0630 Savella 50 mg tablet 50 mg PO BID simvastatin 20 mg Tablet 20 mg PO BEDTIME docusate sodium 100 mg capsule 100 mg PO BEDTIME PRN (Reason: stool softener) Anoro Ellipta 62.5-25 mcg/actuation blister with device 1 inh INHALATION DAILY ipratropium-albuterol 0.5 mg-3 mg(2.5 mg base)/3 mL solution for nebulization 3 ml inhalation Q6H PRN (Reason: wheezing) acetaminophen 500 mg Tablet 500 mg PO DAILY PRN (Reason: Pain) Eliquis 5 mg Tablet 5 mg PO BID Qty: 60 0RF buprenorphine-naloxone [Suboxone] 2-0.5 mg film 1 film sublingual DAILY Qty: 14 0RF buprenorphine-naloxone [Suboxone] 2-0.5 mg film 1 film sublingual DAILY PRN (Reason: Pain) Qty: 14 0RF furosemide 40 mg tablet 40 mg PO DAILY nicotine 21 mg/24 hr patch 24 hour 21 mg transdermal DAILY PRN (Reason: Smoking Cessation) Mucus DM 30-600 mg Tablet Extended Release 12 Hr 1 tab PO BID Qty: 20 0RF magnesium oxide 400 mg magnesium tablet 400 mg PO DAILY Qty: 90 0RF metoprolol succinate 50 mg Tablet Extended Release 24 Hr 150 mg PO DAILY Qty: 45 0RF Protocol: Hold for SBP/HR < HOLD for SBP < : 90 HOLD for HR < : 60 diltiazem HCl 240 mg Capsule,Extended Release 24hr 240 mg PO DAILY Qty: 30 0RF Protocol: Hold for SBP/HR < HOLD for SBP < : 90 HOLD for HR < : 60 albuterol sulfate [Ventolin HFA] 90 mcg/actuation HFA aerosol inhaler 2 puff inhalation Q6H PRN (Reason: sob) Discontinued prednisone 10 mg tablet 10 mg PO DIRECTED Qty: 30 0RF Rx Instructions: see taper instructions; 40 mg Daily x3 days, 30 mg daily x3 days, 20 mg daily x3 days, 10 mg daily x3 days Discharge Orders: Discharge Order (Routine); Ordered 02/24/24 Ordered By: Jim Parish Diet: Advance to usual diet Activity on Discharge: As tolerated Stand Alone Forms: Patient Portal Discharge page Print Language: Nepali Care Plan Goals: Resume all meds as outlined on discharge sheet. Scripts for oxycodone and Suboxone have accompanied patient's. Health Concerns: Needs to complete a prednisone taper as outlined Plan of Treatment: Further plans as per receiving facility Assessment: See discharge summary
== END 2024-02-24 13:44 | disposition skilled nursing facility (03) | DRG 201 ==
LOC: HO.ED 10:34 → HO.EDOVER 11:52 → HO.IMC 13:18
PROVIDERS: Internal Medicine; Admitting Provider Physician Assistant; Emergency Provider Emergency Medicine; PCP Internal Medicine; Visit Provider Hospitalist
DX: I48.0 Paroxysmal atrial fibrillation (principal); J96.21 Acute and chronic respiratory failure with hypoxia; C77.8 Secondary and unspecified malignant neoplasm of lymph nodes of multiple regions; C79.51 Secondary malignant neoplasm of bone; C34.11 Malignant neoplasm of upper lobe, right bronchus or lung; C78.01 Secondary malignant neoplasm of right lung; C34.32 Malignant neoplasm of lower lobe, left bronchus or lung; I11.0 Hypertensive heart disease with heart failure; I50.32 Chronic diastolic (congestive) heart failure; J44.1 Chronic obstructive pulmonary disease with (acute) exacerbation; E03.9 Hypothyroidism, unspecified; E78.5 Hyperlipidemia, unspecified; G89.29 Other chronic pain; C79.31 Secondary malignant neoplasm of brain; Z99.81 Dependence on supplemental oxygen; J96.22 Acute and chronic respiratory failure with hypercapnia; Z87.891 Personal history of nicotine dependence; Z90.2 Acquired absence of lung [part of]; F11.20 Opioid dependence, uncomplicated; Z20.822 Contact with and (suspected) exposure to COVID-19; Z79.01 Long term (current) use of anticoagulants; Z79.890 Hormone replacement therapy; Z79.899 Other long term (current) drug therapy
CPT/HCPCS: 0241U; 36415; 71045; 80048; 80053; 80076; 82803; 82947; 83605; 83690; 83735; 83880; 84484; 85025; 85027; 87040; 87147; 87205; 93005; 94640; 94660; 97162; 99285; J0456; J2270; J2919; J3370; J3371

== ENCOUNTER → 2024-02-17 04:26 | Outpatient (BNV) | payer MEDICAID, SELFPAY | PROVIDERS: Emergency Provider Emergency Medicine; Visit Provider Internal Medicine Cardiovascular Disease | DX: R07.9 Chest pain, unspecified (principal); I48.91 Unspecified atrial fibrillation; R94.31 Abnormal electrocardiogram [ECG] [EKG] | CPT/HCPCS: 93010 ==

== ENCOUNTER → 2024-02-17 11:32 | Outpatient (BNV) | payer MEDICAID, SELFPAY | PROVIDERS: Admitting Provider Physician Assistant; Emergency Provider Emergency Medicine; PCP Internal Medicine; Visit Provider Internal Medicine | DX: C34.90 Malignant neoplasm of unspecified part of unspecified bronchus or lung (principal) | CPT/HCPCS: 99222; 99231 ==

== ENCOUNTER → 2024-02-17 11:32 | Outpatient (BNV) | payer MEDICAID, SELFPAY | PROVIDERS: Admitting Provider Physician Assistant; Emergency Provider Emergency Medicine; Visit Provider Physician Assistant | DX: J96.21 Acute and chronic respiratory failure with hypoxia (principal); J96.22 Acute and chronic respiratory failure with hypercapnia; I48.91 Unspecified atrial fibrillation | CPT/HCPCS: 99223; 99232; 99233; 99239; 99499 ==

== ENCOUNTER 2024-02-24 20:32 | Inpatient (IN) | payer MEDICAID, SELFPAY ==
--- NOTE | 2024-02-24 | ECG_ITS ---
Test Reason : SOB Blood Pressure : / mmHG Vent. Rate : 112 BPM Atrial Rate : 000 BPM P-R Int : 000 ms QRS Dur : 068 ms QT Int : 286 ms P-R-T Axes : 000 021 039 degrees QTc Int : 390 ms Atrial fibrillation with rapid ventricular response Nonspecific T wave abnormality Abnormal ECG When compared with ECG of 17-FEB-2024 04:25, Nonspecific T wave abnormality now evident in Lateral leads Referred By: Stephanie Somers Electronically Signed By:Rc Roberts
--- NOTE | ~2024-02-24 | CT_ITS ---
EXAMINATION: CT CHEST WITHOUT CONTRAST CLINICAL INFORMATION: Chronic cough. Evaluate for pneumonia. COMPARISON: Most recent chest radiograph done earlier the same day and CT chest dated 01/24/2024. TECHNIQUE: Multidetector volumetric CT imaging of the chest was done. Axial MIP volume rendering provided. Sagittal and coronal reformatted images were obtained. This CT examination was performed using dose optimization techniques as appropriate, variously including the following: *Automated exposure control. *Adjustment of mA and/or kV according to patient size (this includes techniques or standardized protocols for targeted exams where dose is matched to indication/reason for exam; i.e. extremities or head). *Use of iterative reconstruction technique. DLP: 327 mGy-cm FINDINGS: INSTRUMENT LENS GRINDER: Small bilateral pleural effusions with bibasilar opacities. LUNGS: Redemonstration of emphysematous changes. Interval decrease in previously seen prominent left upper lobe opacities and interstitial thickening. More mild ground-glass opacities and interstitial thickening within the right lung base as well as within the left upper lobe. Left lower lobe compressive atelectasis versus early infiltrates, slightly increased. The central airways are patent. MEDIASTINUM: No cardiomegaly. No pericardial effusion. No thoracic aortic dilatation. No superior mediastinal or hilar lymphadenopathy. CORONARY ARTERY CALCIFICATION: None visualized on this study. PLEURA: Small left-sided pleural effusion, slightly compared to the prior CT. No right-sided pleural effusion. No pneumothorax. AXILLA: No lymphadenopathy. UPPER ABDOMEN: Unremarkable. OSSEOUS STRUCTURES: Redemonstration of a T6 compression deformity. No acute osseous abnormality. Sclerotic foci within the thoracic spine appear less prominent when compared to the prior examination. CT/CT chest wo IV con IMPRESSION: 1. Small left-sided pleural effusion, slightly compared to the prior examination. Adjacent compressive atelectasis versus early infiltrates, slightly increased. 2. Interval decrease in previously seen left upper lobe airspace opacities and interstitial thickening. More mild ground-glass opacities and interstitial thickening within the right lung base as well as within the left upper lobe. 3. Emphysematous changes are redemonstrated. 4. No significant lymphadenopathy. 5. Redemonstration of a T6 compression deformity. Sclerotic foci within the thoracic spine appear less prominent when compared to the prior examination. Fleischner guidelines were followed. Electronically signed by: Luan Kelley MD 02/24/2024 10:37 PM [facility]
--- NOTE | ~2024-02-24 | XR_ITS ---
EXAMINATION: XR CHEST CLINICAL INFORMATION: Dyspnea COMPARISON: Chest radiograph 02/17/2024 CT chest 01/23/2024 TECHNIQUE: Frontal view of the chest was obtained. FINDINGS: The heart size is normal. Bilateral pleural effusions are again seen, left greater than right without significant change when compared to the prior study. There is continued left basilar atelectasis with increased retrocardiac opacity and obscuration of the left hemidiaphragm. Some new slight increase in right lower lobe patchy density is seen compared to prior. Again noted is ACDF hardware XR/XR chest 1V IMPRESSION: 1. Bilateral pleural effusions, left greater than right with left basilar atelectasis. 2. New right lower lobe patchy density. Electronically signed by: Cisco Bah MD 02/24/2024 09:52 PM [facility]
--- NOTE | ~2024-02-24 | US_ITS ---
EXAMINATION: US TRIPLEX LOWER EXTREMITY, LEFT CLINICAL INFORMATION: Left lower extremity edema COMPARISON: None available. TECHNIQUE: Color-flow triplex imaging with spectral analysis and compression Doppler were performed on the left lower extremity. FINDINGS: Respiratory variation, normal compression and augmented flow are noted throughout the left lower extremity. The visualized common femoral vein, superficial femoral vein, profunda femoral vein, popliteal vein and posterior tibial venous segments show no evidence of deep venous thrombosis. Peroneal vein is not visualized. There is no Grossman's cyst. Soft tissue swelling noted about the calf. US/US venous duplex LE LT IMPRESSION: No evidence of deep venous thrombosis involving the left lower extremity. Peroneal vein not visualized. Electronically signed by: Wei Kwan DO 02/29/2024 01:07 PM [facility]
--- NOTE | ~2024-02-24 | US_ITS ---
EXAMINATION: US TRIPLEX UPPER EXTREMITY, LEFT CLINICAL INFORMATION: Left upper extremity swelling COMPARISON: None TECHNIQUE: Color-flow triplex imaging with spectral analysis and compression Doppler was performed on the left upper extremity. FINDINGS: The left internal jugular, subclavian, and axillary veins are patent and free of thrombus. The imaged segment of the left brachiocephalic vein is patent. Spectral doppler waveforms are normal. The brachial, basilic, cephalic, radial, and ulnar veins are patient and compressible. US/US venous duplex UE LT IMPRESSION: No evidence of deep venous thrombosis involving the left upper extremity. Electronically signed by: Onesimo Ortiz MD 02/26/2024 06:38 PM [facility]
--- NOTE | ~2024-02-24 | XR_ITS ---
EXAMINATION: XR CHEST CLINICAL INFORMATION: dyspnea COMPARISON: 02/24/2024 TECHNIQUE: Frontal view of the chest was obtained. FINDINGS: Moderate left pleural fluid and/or thickening, small right pleural fluid and/or thickening and underlying atelectasis are not significantly changed. There are chain sutures in the right hemithorax. The cardiomediastinal silhouette is stable. XR/XR chest 1V IMPRESSION: No significant change in bilateral pleural fluid and/or thickening, left greater than right, and underlying atelectasis. Electronically signed by: Dick Lopez MD 02/29/2024 09:32 AM [facility]
[2024-02-24 20:34] VITALS: BP 157/110; PULSE 135; O2SAT 73
[2024-02-24 20:45] VITALS: PULSE 103; RESP 20; O2SAT 97
[2024-02-24 20:49] VITALS: BP 102/45; PULSE 117; RESP 17; TEMP 36.4; O2SAT 98; BMI 38.2
[2024-02-24 20:53] LABS: MANUAL DIFF FLAG NO
[2024-02-24 20:54] LABS: Basophils Absolute Auto 0.1 X10*3/uL (0.0-0.2); Basophils Percent Auto 0.3 % (0-2); Hematocrit 35.7 % (37.0-47.0); Hemoglobin 11.4 g/dl (12.0-16.0); Imm Gran Abs Auto 0.58 X10*3/uL (0.00-0.03); Imm Gran Pct Auto 3.6 % (0.0-0.4); Lymphocytes Absolute Auto 0.7 X10*3/uL (1.2-4.9); Lymphocytes Percent Auto 4.2 % (20-40); Mean Corpuscular HGB Conc 31.9 g/dl (31.0-35.0); Mean Corpuscular Hemoglobin 29.8 pg (27.0-33.0); Mean Corpuscular Volume 93.5 fL (80.0-98.0); Mean Platelet Volume 10.6 fL (9.4-12.3); Monocytes Absolute Auto 0.9 X10*3/uL (0.1-1.2); Monocytes Percent Auto 5.7 % (2-11); Neutrophils Absolute Auto 13.9 x10*3/uL (2.0-8.3); Neutrophils Percent Auto 86.2 % (45-73); Platelet Count 145 X10*3/uL (160-400); Red Blood Count 3.82 X10*6/uL (4.20-5.50); Red Cell Distribution Width 15.2 % (11.0-16.0); White Blood Count 16.1 X10*3/uL (4.8-10.8)
[2024-02-24 21:08] LABS: Alanine Aminotransferase 47 U/L (0-31); Albumin Level 3.9 g/dL (3.5-5.0); Alkaline Phosphatase 52 U/L (39-117); Anion Gap 16 (12-20); Aspartate Amino Transferase 18 U/L (5-31); Bilirubin Direct 0.2 mg/dL (0.0-0.5); Bilirubin Total 0.6 mg/dL (0.0-1.0); Blood Urea Nitrogen 51 mg/dL (9-16); Calcium 9.1 mg/dL (8.4-10.2); Carbon Dioxide 39 mmol/L (22-29); Chloride 90 mmol/L (96-108); Creatinine Clr Calc Pharmacy 51.9; Estimated Glomerular Filt Rate 40; Glucose Random 321 mg/dL (60-115); Potassium 5.3 mmol/L (3.3-5.1); Sodium 140 mmol/L (135-145); Total Protein 6.1 g/dL (6.5-8.0)
--- NOTE | 2024-02-24 21:12 | ED_ITS ---
HPI - SOB/Dyspnea General Chief Complaint: Dyspnea Stated Complaint: diff breathing Source: patient, EMS and old records reviewed Mode of arrival: EMS Limitations: no limitations History of Present Illness ED Provider: KAVIN COLLINS Narrative: 63 yo female with PMH of NSC lung cancer (s/p LITA/RUL lobectomies) with mets on palliative chemotherapy, breast cancer, depression, hepatitis-C, HTN, CHF , EF 60-65%, COPD with chronic respiratory failure on 3 L O2 at home not compliant with nighttime CPAP, Afib on eliquis recent admit here for COPD/afib with RVR on dilt gtt. She was sent to [facility] today from inpatient - she was trying to sleep and no O2 was on and no nightime CPAP - found to be 73% on RA by staff - they tried her 3L NC, then NRB without help. EMS placed her on bipap and gave 125mg solumedrol - on arrival patient is not in distress and looks well - she states she is not going back there as she was not on her oxygen. She is alert and oriented x 3. MD elicited complaint: shortness of breath Pertinent past history: COPD and congestive heart failure Onset (ago): hour(s) (few) Context: recent illness and other (no o2 compliance) Timing: improved Severity: moderate Exacerbating factors: lying flat and exertion Relieving factors: oxygen, rest and upright position Known history of: COPD and congestive heart failure Associated symptoms: denies other symptoms Treatment prior to arrival: oxygen and NIPPV Related Data Home Medications ?Medication ?Instructions ?Recorded ?Confirmed milnacipran 50 mg tablet (Savella) 50 mg PO BID 01/18/22 02/17/24 omeprazole 20 mg capsule,delayed 20 mg PO DAILY@0630 01/18/22 02/17/24 release paroxetine HCl 20 mg tablet 40 mg PO BID 01/18/22 02/17/24 simvastatin 20 mg tablet 20 mg PO BEDTIME 02/17/22 02/17/24 albuterol sulfate 90 mcg/actuation 2 puff inhalation Q6H PRN sob 06/22/23 02/17/24 aerosol inhaler (Ventolin HFA) docusate sodium 100 mg capsule 100 mg PO BEDTIME PRN stool 07/09/23 02/17/24 softener umeclidinium 62.5 mcg-vilanterol 1 inh inhalation DAILY 07/09/23 02/17/24 25 mcg/actuation powdr for inhalation (Anoro Ellipta) ipratropium 0.5 mg-albuterol 3 mg 3 ml inhalation Q6H PRN wheezing 10/18/23 02/17/24 (2.5 mg base)/3 mL nebulization soln acetaminophen 500 mg tablet 500 mg PO DAILY PRN Pain 11/03/23 02/17/24 furosemide 40 mg tablet 40 mg PO DAILY 01/19/24 02/17/24 nicotine 21 mg/24 hr daily 21 mg transdermal DAILY PRN 01/19/24 02/17/24 transdermal patch Smoking Cessation Previous Rx's ?Medication ?Instructions ?Recorded folic acid 1 mg tablet 1 mg PO DAILY #90 tabs 10/04/23 apixaban 5 mg tablet (Eliquis) 5 mg PO BID #60 tabs 12/09/23 levothyroxine 25 mcg tablet 25 mcg PO DAILY@0600 01/10/24 (Synthroid) potassium chloride 20 mEq 20 meq PO DAILY #30 tabs 01/14/24 tablet,extended release (K-Tab) dextromethorphan-guaifenesin 30 1 tab PO BID #20 tabs 01/26/24 mg-600 mg tablet extended [id number] hr (Mucus DM) magnesium oxide 400 mg PO DAILY #90 tabs 01/26/24 diltiazem HCl 240 mg 240 mg PO DAILY #30 caps 02/03/24 capsule,extended release 24 hr metoprolol succinate 50 mg 150 mg PO DAILY #45 tabs 02/03/24 tablet,extended release 24 hr buprenorphine 2 mg-naloxone 0.5 mg 1 film sublingual DAILY #14 ea 02/24/24 sublingual film (Suboxone) buprenorphine 2 mg-naloxone 0.5 mg 1 film sublingual DAILY PRN Pain 02/24/24 sublingual film (Suboxone) #14 ea oxycodone 5 mg tablet 5 mg PO Q6H PRN Pain, 02/24/24 Moderate(Pain Scale 4-6) #30 tabs prednisone 10 mg tablet See Rx Instructions .Route 02/24/24 .COMPLEX #45 tabs Allergies Allergy/AdvReac Type Severity Reaction Status Date / Time lisinopril [LISINOPRIL] Allergy Severe SWELLING- Verified 02/24/24 20:51 ANGIOEDEMA codeine [CODEINE] Allergy Intermediate VOMITING/HIVES, Verified 02/24/24 20:51 vomiting, hives Review of Systems 2 Review of Systems: Constitutional : No Fever, No Chills, No Fatigue ENT/Mouth : No sore throat, No Rhinorrhea Eyes: No Eye Pain, No Swelling, No Redness Cardiovascular : No Chest Pain, pos SOB Respiratory : No Cough, No Sputum Gastrointestinal : No Nausea, No Vomiting, No Diarrhea, No abdominal Pain Genitourinary : No Dysuria, No Urinary Frequency, No Hematuria, Musculoskeletal : No joint pain, No Myalgias, No Joint Swelling Skin : No Skin Lesions, No rash Neuro : No Weakness, No Numbness, No Dizziness, no Headache Psych : No Anxiety/Panic, No Depression Heme/Lymph: No Bruising, No Bleeding,No Lymphadenopathy Endocrine : No Polyuria, No Polydipsia All other systems reviewed and are negative [facility] Past Medical History Attestation statement: The following information was validated with the patient. Source: old records reviewed Medical History CHF (congestive heart failure) COPD (chronic obstructive pulmonary disease) Pneumonitis Lung cancer Pancytopenia New onset a-fib Cancer of upper lobe of left lung (~2020) Bilateral lung cancer Obesity History of hepatitis C Smoker Tubular adenoma of colon Pulmonary nodules History of breast cancer (~2006) Internal and external bleeding hemorrhoids Cancer of upper lobe of right lung (~2019) GERD (gastroesophageal reflux disease) Depression COPD (chronic obstructive pulmonary disease) HTN (hypertension) Surgical History History of lung surgery (~2020) History of anterior colporrhaphy (~2016) History of tubal ligation History of lumpectomy of right breast (~2006) History of colonoscopy (~2014) History of hemorrhoidectomy (~2019) History of back surgery (~2011) History of lobectomy of lung (~2019) Family History Family History Mother History of lung cancer Brother History of lung cancer Maternal Grandmother Breast cancer in female Maternal Aunt Breast cancer in female Daughter Thyroid cancer Social History Social History Household Members: Spouse Household Members Other:: 2 Housing: Apartment Are you a primary out of school hours care worker to a significant other at home: No Do you presently have visiting nurse or other home services: Yes (Nurse, PT) Unable to assess alcohol history related to: Unable to respond Alcohol intake: never Comment: Refused all safety measures Patient Tobacco Use Status: Former Tobacco user Tobacco use type: Cigarette Cigarette Packs Per Day: 1 Years Smoked: 50 e-Cigarette/Vaping Use: Former Use Second Hand Smoke Exposure: Yes Substance Use Type: Marijuana Advance Directives: Yes Advance Directives on File: Yes Advance Directives Date on File: 02/02/22 Do you have a plan to hurt others: No Plan service: No Current occupational status: disabled Current occupational exposures/hazards: No Physical Exam 2 Vital Signs: Vital Signs: Last Vital Signs Temp 96.3 F L 02/24/24 21:40 Pulse 110 H 02/24/24 21:40 Resp 17 02/24/24 21:40 BP 139/99 H 02/24/24 21:40 Pulse Ox 93 02/24/24 21:40 O2 Del Method BiPAP 02/24/24 21:40 BMI result Body Mass Index 38.2 Appearance: Alert. Oriented X3. No acute distress. speaking in full sentences Eyes: Pupils equal, round and reactive to light. ENT: Pharynx normal. Neck: Normal inspection. Neck supple. CVS: Normal heart rate and rhythm. Pulses normal. Respiratory: No respiratory distress. Breath sounds diminished Abdomen: Soft and nontender. Skin: Skin warm and dry. Normal skin color. Normal skin turgor. Extremities: No lower extremity edema. No calf ttp Neuro: Oriented X 3. No motor deficit. No sensory deficit. Course Course Course Narrative: physician observation started at 1158pm Medications Administered Discontinued Medications Generic Name Dose Route Start Last Admin Trade Name Freq PRN Reason Stop Dose Admin Ceftriaxone Sodium 1 gm 02/24/24 21:14 02/24/24 21:58 Ceftriaxone Sodium 1 Gm Vial IVPUSH 02/24/24 21:15 1 gm ONCE ONE Administration Sodium Chloride 250 mls @ 250 mls/hr 02/24/24 22:00 02/24/24 23:17 Ns IV 02/24/24 22:59 Infused .Q1H ONE Infusion Medical Decision Making Medical Decision Making MDM Narrative: 63 yo female with PMH of NSC lung cancer (s/p LITA/RUL lobectomies) with mets on palliative chemotherapy, breast cancer, depression, hepatitis-C, HTN, CHF , EF 60-65%, COPD with chronic respiratory failure on 3 L O2 at home not compliant with nighttime CPAP, Afib on eliquis here with hypoxia after being found at SNF without O2 and her nighttime CPAP she presents in no distres at this time basic labs, CXR, EKG, vbg and start on her nighttime CPAP. Differential Diagnosis Differential Diagnoses: The differential diagnosis associated with the presentation includes lack of O2- COPD, CHF Admission/Observation Consideration of admission/observation: Escalation of care including admission/observation considered on her baseline therapy, no sig lab changes, nonspecific CT reads at this time will observe for CM and start on augmentin and levofloxacin and try to find placement Lab Data MDM Lab Attestation statement: I reviewed the patient's lab results. 02/24/24 20:48 02/24/24 20:48 Labs: Lab Results 02/24/24 02/24/24 02/24/24 Range/Units 20:48 21:27 21:33 WBC 16.1 H (4.8-10.8) X10*3/uL RBC 3.82 L (4.20-5.50) X10*6/uL Hgb 11.4 L (12.0-16.0) g/dl Hct 35.7 L (37.0-47.0) % MCV 93.5 (80.0-98.0) fL MCH 29.8 (27.0-33.0) pg MCHC 31.9 (31.0-35.0) g/dl RDW 15.2 (11.0-16.0) % Plt Count 145 L (160-400) X10*3/uL MPV 10.6 (9.4-12.3) fL Immature Gran % (Auto) 3.6 H (0.0-0.4) % Neut % (Auto) 86.2 H (45-73) % Lymph % (Auto) 4.2 L (20-40) % Eaton % (Auto) 5.7 (2-11) % Eos % (Auto) 0.0 (0-4) % Baso % (Auto) 0.3 (0-2) % Lymph # (Auto) 0.7 L (1.2-4.9) X10*3/uL Eaton # (Auto) 0.9 (0.1-1.2) X10*3/uL Eos # (Auto) 0.0 (0.0-0.4) X10*3/uL Baso # (Auto) 0.1 (0.0-0.2) X10*3/uL Abs Immat Gran (auto) 0.58 H (0.00-0.03) X10*3/uL Absolute Neuts (auto) 13.9 H (2.0-8.3) x10*3/uL Absolute Nucleated RBC 0.000 (0.0-0.012) X10*3/uL Nucleated RBC % (auto) 0.0 (0.0-0.2) /100WBC VBG pH 7.50 H (7.32-7.43) VBG pCO2 55 mmHg VBG pO2 63 mmHg VBG HCO3 44 H (22-26) mmol/L VBG O2 Saturation 93.0 % VBG Base Excess 18.1 mmol/L Sodium 140 (135-145) mmol/L Potassium 5.3 H (3.3-5.1) mmol/L Chloride 90 L (96-108) mmol/L Carbon Dioxide 39 H (22-29) mmol/L Anion Gap 16 (12-20) BUN 51 H (9-16) mg/dL Creatinine 1.33 (0.5-1.4) mg/dL Estim Creat Clear Calc 51.9 Estimated GFR 40 Random Glucose 321 H (60-115) mg/dL Lactic Acid 2.8 H* (0.5-2.0) mmol/L Calcium 9.1 D (8.4-10.2) mg/dL Magnesium 2.0 (1.6-2.6) mg/dL Total Bilirubin 0.6 (0.0-1.0) mg/dL Direct Bilirubin 0.2 (0.0-0.5) mg/dL AST 18 (5-31) U/L ALT 47 H (0-31) U/L Alkaline Phosphatase 52 (39-117) U/L Troponin I High Sens 65.9 H* (<3.5-17.0) ng/L B-Natriuretic Peptide 583 H (<100) pg/mL Total Protein 6.1 L (6.5-8.0) g/dL Albumin 3.9 (3.5-5.0) g/dL Influenza Type A (PCR) NEGATIVE (Negative) Influenza Type B (PCR) NEGATIVE (Negative) RSV RNA Qual (PCR) NEGATIVE (Negative) SARS-CoV-2 RNA (RT-PCR) NEGATIVE (Negative) Independent Interpretation I performed an independent interpretation of an: EKG, Plain X-Ray and CT Scan (no sig change on xray other than new GGO) Interpretation: Rate: 112 Rhythm: afib Knapp: noraml Normal QRS complex. ST T wave : flat t waves inf leads, no LESA qTC: 390 prior studies: hx of afib with RVR The study has been interpreted contemporaneously by me. . Radiology Impression Discussion of test interpretation with radiology: I have reviewed the radiologist's reading. Independent Historian Clinical information obtained from an independent historian. History obtained from or confirmed by: EMS External Record Review External record reviewed: Inpatient record and Outpatient record Prescription Management I considered prescription management with: Antibiotic Discharge Plan Discharge Clinical Impression: Chronic hypoxic respiratory failure, Ground glass opacity present on imaging of lung Patient Disposition: Still a Patient Prescriptions: No Action levothyroxine [Synthroid] 25 mcg tablet 25 mcg PO DAILY@0600 0RF potassium chloride [K-Tab] 20 mEq Tablet Extended Release 20 meq PO DAILY Qty: 30 0RF folic acid 1 mg tablet 1 mg PO DAILY Qty: 90 3RF paroxetine HCl 20 mg tablet 40 mg PO BID omeprazole 20 mg capsule,delayed release(DR/EC) 20 mg PO DAILY@0630 Savella 50 mg tablet 50 mg PO BID simvastatin 20 mg Tablet 20 mg PO BEDTIME docusate sodium 100 mg capsule 100 mg PO BEDTIME PRN (Reason: stool softener) Anoro Ellipta 62.5-25 mcg/actuation blister with device 1 inh INHALATION DAILY ipratropium-albuterol 0.5 mg-3 mg(2.5 mg base)/3 mL solution for nebulization 3 ml inhalation Q6H PRN (Reason: wheezing) acetaminophen 500 mg Tablet 500 mg PO DAILY PRN (Reason: Pain) Eliquis 5 mg Tablet 5 mg PO BID Qty: 60 0RF oxycodone 5 mg Tablet 5 mg PO Q6H PRN (Reason: Pain, Moderate(Pain Scale 4-6)) Qty: 30 0RF Rx Instructions: Partial Fill upon patient request. prednisone 10 mg tablet See Rx Instructions .Route .COMPLEX Qty: 45 0RF Rx Instructions: 10 mg orally; 5 tabs p.o. daily x3 days; 4 tabs p.o. daily x3 days; 3 tabs daily x3 days; 2 tabs daily x3 days; 1 tab daily x3 days buprenorphine-naloxone [Suboxone] 2-0.5 mg film 1 film sublingual DAILY Qty: 14 0RF buprenorphine-naloxone [Suboxone] 2-0.5 mg film 1 film sublingual DAILY PRN (Reason: Pain) Qty: 14 0RF furosemide 40 mg tablet 40 mg PO DAILY nicotine 21 mg/24 hr patch 24 hour 21 mg transdermal DAILY PRN (Reason: Smoking Cessation) Mucus DM 30-600 mg Tablet Extended Release 12 Hr 1 tab PO BID Qty: 20 0RF magnesium oxide 400 mg magnesium tablet 400 mg PO DAILY Qty: 90 0RF metoprolol succinate 50 mg Tablet Extended Release 24 Hr 150 mg PO DAILY Qty: 45 0RF Protocol: Hold for SBP/HR < HOLD for SBP < : 90 HOLD for HR < : 60 diltiazem HCl 240 mg Capsule,Extended Release 24hr 240 mg PO DAILY Qty: 30 0RF Protocol: Hold for SBP/HR < HOLD for SBP < : 90 HOLD for HR < : 60 albuterol sulfate [Ventolin HFA] 90 mcg/actuation HFA aerosol inhaler 2 puff inhalation Q6H PRN (Reason: sob) Print Language: Armenian
[2024-02-24 21:13] LABS: B Type Natriuretic Peptide 583 pg/mL (<100)
[2024-02-24 21:19] LABS: Troponin-I High Sensitivity 65.9 ng/L (<3.5-17.0)
[2024-02-24 21:34] LABS: Influenza A PCR NEGATIVE (Negative); Influenza B PCR NEGATIVE (Negative); Resp Syncy Virus RNA Qual PCR NEGATIVE (Negative); SARS COV2 PCR INHOUSE NEGATIVE (Negative)
[2024-02-24 21:38] LABS: Venous Blood Gas Refer to POC result
[2024-02-24 21:40] VITALS: BP 139/99; PULSE 110; RESP 17; TEMP 35.7; O2SAT 93
[2024-02-24 21:42] LABS: VBG Base Excess 18.1 mmol/L; VBG HCO3 44 mmol/L (22-26); VBG pCO2 55 mmHg; VBG pO2 63 mmHg
[2024-02-24 21:57] LABS: Lactic Acid 2.8 mmol/L (0.5-2.0)
[2024-02-24] MEDS: cefTRIAXone sodium 1 GM VIAL IVPUSH (21:58)
--- NOTE | 2024-02-24 22:10 | PC.NURSE ---
Late entry d/t patient care - [facility]. Found to be 73% room air by staff. On ems arrival, patient placed on 4L NC, no relief. Then placed on bipap, given duo neb and IV solumedrol. Pt has HX chronic respiratory failure. Pt wears 3L NC at baseline however was not wearing it or her nighttime CPAP when she went to bed. Pt states That facility did nothing for me, not even my nighttime meds. Pt just d/c from this hospital this AM. Answering questions appropriately, skin p/w/d. Now on BIPAP by RT. Denies chest pain. Hx AFIB.
--- NOTE | 2024-02-24 22:11 | PC.NURSE ---
pt took herself off the bipap, stated she couldn't breathe well on it anymore. placed on 3L NC per MD costello orders Pt now in CT scan.
[2024-02-24] MEDS: 0.9 % Sodium Chloride 250 ML IV (22:25)
[2024-02-24 23:32] LABS: Reflex Lactate? Lactic Acid Added
[2024-02-24 23:57] LABS: Cancel Lactic Acid Canceled
[2024-02-25] VITALS (15 sets, daily range): BP systolic 107–157; BP diastolic 66–112; PULSE 73–124; RESP 16–20; TEMP 36.4–37.3; O2SAT 93–100
[2024-02-25] MEDS: levoFLOXacin/D5W 500 MG/100 ML PIGGYBACK 100 MG IV (00:13)
[2024-02-25] MEDS: dilTIAZem HCL 50 MG/10 ML VIAL 10 MG IVPUSH (00:13)
[2024-02-25] MEDS: Amoxicillin/Potassium Clav 875 MG TABLET PO ×2 (08:07→21:53)
[2024-02-25] MEDS: levoFLOXacin 750 MG TABLET PO (08:07)
--- NOTE | 2024-02-25 10:54 | MHC.CM.ED ---
Addendum entered by Holly Sullivan 02/25/24 12:33: Patient has follow up oncology appointment scheduled for 03/03. Per Edith, oncology community navigator, patient is scheduled for chemo next week as long as she is stable. Original Note: Received case management consult overnight from Dr Somers. Patient was [place] [facility] [place] to [facility] at 130pm. Patient returned to ER at 8pm. Patient is at her baseline in regards to respiratory status. Met with patient in regards to discharge planning. Patient lives at home, receives Suboxone from [facility] in [place], has oxygen through [facility] and [facility] Patient was not happy that SNF didn't have her medications for her when she arrived. T/W explained any SNF would not have her medications when she arrived because they have to be ordered once she arrives. Patient still requesting STR but does not want to return to [facility]. Patient agreeable to SNF referral being made. Referral will be broadcasted within 15 miles of patient's home. Continue to monitor for d/c needs.
--- NOTE | 2024-02-25 11:40 | PHA.MEDREC ---
Pharmacy Consult ? Medication Reconciliation Pharmacy has completed the medication reconciliation. Patient was discharged yesterday
--- NOTE | 2024-02-25 12:42 | PC.NURSE ---
pt afib on tele - rate fluctuating between about 100-125. PA notified. Med Rec done. Asked PA to continue meds. awaiting further orders
[2024-02-25] MEDS: Metoprolol Succinate ER 50 MG TAB.ER.24H 150 MG PO (13:30)
[2024-02-25] MEDS: dilTIAZem HCL CD 240 MG CAP.ER.DEG PO (13:40)
[2024-02-25] MEDS: Albuterol/Iprat 2.5/0.5MG 3 ML AMPUL.NEB INHALE (19:14)
[2024-02-25] MEDS: Atorvastatin Calcium 10 MG TABLET PO (21:52)
[2024-02-25] MEDS: Apixaban 5 MG TABLET PO (21:53)
[2024-02-25] MEDS: PARoxetine HCL 40 MG TABLET PO (21:53)
[2024-02-25] MEDS: guaiFENesin DM 600/30 1 TAB TAB.ER.12H PO (21:53)
[2024-02-26] VITALS (17 sets, daily range): BP systolic 119–141; BP diastolic 74–100; PULSE 55–110; RESP 16–20; TEMP 36.7–36.8; O2SAT 90–96
[2024-02-26] MEDS: Albuterol/Iprat 2.5/0.5MG 3 ML AMPUL.NEB INHALE ×5 (00:20→20:11)
[2024-02-26] MEDS: Acetaminophen 325 MG TABLET 650 MG PO (04:03)
[2024-02-26] MEDS: guaiFENesin DM 600/30 1 TAB TAB.ER.12H PO ×2 (09:14→23:15)
[2024-02-26] MEDS: Buprenorphine/Naloxone 2/0.5mg FILM 1 FILM SUBLINGUAL (09:14)
[2024-02-26] MEDS: Amoxicillin/Potassium Clav 875 MG TABLET PO ×2 (09:16→23:15)
[2024-02-26] MEDS: Potassium Chloride ER 20 MEQ TAB.ER.PRT PO (09:17)
[2024-02-26] MEDS: levoFLOXacin 750 MG TABLET PO (09:17)
[2024-02-26] MEDS: Apixaban 5 MG TABLET PO ×2 (09:18→23:15)
[2024-02-26] MEDS: Furosemide 40 MG TABLET PO (09:18)
[2024-02-26] MEDS: Levothyroxine Sodium 25 MCG TABLET PO (09:18)
[2024-02-26] MEDS: Omeprazole 20 MG CAPSULE.DR PO (09:19)
[2024-02-26] MEDS: Folic Acid 1 MG TABLET PO (09:19)
[2024-02-26] MEDS: Metoprolol Succinate ER 50 MG TAB.ER.24H 150 MG PO (09:19)
[2024-02-26] MEDS: Magnesium Oxide 400 MG TABLET PO (09:20)
[2024-02-26] MEDS: PARoxetine HCL 40 MG TABLET PO ×2 (09:20→23:15)
[2024-02-26] MEDS: dilTIAZem HCL CD 240 MG CAP.ER.DEG PO (10:21)
--- NOTE | 2024-02-26 11:25 | PC.NURSE ---
ALERT, SKIN WPD, LS TIGHT WHEEZE THROUGHOUT, AFIB ON MONITOPR, CALL TO rt FOR TREATMENT
--- NOTE | 2024-02-26 11:51 | MHC.CM.ED ---
Patient remains in ER Waiting to hear from [facility], [facility] and [facility] if they can offer a bed. No other bed offers made. Referral broadcasted to 50 miles at this time. Continue to monitor for d/c needs.
[2024-02-26] MEDS: predniSONE 20 MG TABLET 50 MG PO (14:20)
[2024-02-26 17:43] LABS: Alanine Aminotransferase 41 U/L (0-31); Albumin Level 3.6 g/dL (3.5-5.0); Anion Gap 20 (12-20); Aspartate Amino Transferase 24 U/L (5-31); Bilirubin Total 0.5 mg/dL (0.0-1.0); Blood Urea Nitrogen 52 mg/dL (9-16); Calcium 9.8 mg/dL (8.4-10.2); Carbon Dioxide 30 mmol/L (22-29); Chloride 92 mmol/L (96-108); Creatinine Clr Calc Pharmacy 61.5; Estimated Glomerular Filt Rate 49; Glucose Random 185 mg/dL (60-115); Sodium 137 mmol/L (135-145); Total Protein 6.1 g/dL (6.5-8.0)
[2024-02-26 18:25] LABS: Alkaline Phosphatase 47 U/L (39-117)
[2024-02-26 18:44] LABS: Basophils Absolute Auto 0.1 X10*3/uL (0.0-0.2); Basophils Percent Auto 0.4 % (0-2); Eosinophils Absolute Auto 0.1 X10*3/uL (0.0-0.4); Eosinophils Percent Auto 0.5 % (0-4); Hematocrit 35.8 % (37.0-47.0); Hemoglobin 11.7 g/dl (12.0-16.0); Imm Gran Abs Auto 0.29 X10*3/uL (0.00-0.03); Lymphocytes Absolute Auto 0.5 X10*3/uL (1.2-4.9); Lymphocytes Percent Auto 3.4 % (20-40); Mean Corpuscular HGB Conc 32.7 g/dl (31.0-35.0); Mean Corpuscular Hemoglobin 30.5 pg (27.0-33.0); Mean Corpuscular Volume 93.2 fL (80.0-98.0); Mean Platelet Volume 11.1 fL (9.4-12.3); Monocytes Absolute Auto 0.6 X10*3/uL (0.1-1.2); Monocytes Percent Auto 4.4 % (2-11); NRBC Pct Auto 0.3 /100WBC (0.0-0.2); Neutrophils Absolute Auto 12.7 x10*3/uL (2.0-8.3); Neutrophils Percent Auto 89.3 % (45-73); Platelet Count 100 X10*3/uL (160-400); Red Blood Count 3.84 X10*6/uL (4.20-5.50); Red Cell Distribution Width 15.4 % (11.0-16.0); White Blood Count 14.2 X10*3/uL (4.8-10.8)
[2024-02-26 18:45] LABS: MANUAL DIFF FLAG NO
[2024-02-26 19:14] LABS: B Type Natriuretic Peptide 235 pg/mL (<100)
[2024-02-26] MEDS: Atorvastatin Calcium 10 MG TABLET PO (23:15)
[2024-02-26] MEDS: oxyCODONE HCl Immed Release 5 MG TABLET PO (23:15)
[2024-02-27] VITALS (14 sets, daily range): BP systolic 134–148; BP diastolic 73–113; PULSE 72–105; RESP 18–20; TEMP 36.4–37; O2SAT 88–94
[2024-02-27] MEDS: Albuterol/Iprat 2.5/0.5MG 3 ML AMPUL.NEB INHALE ×3 (05:11→20:41)
--- NOTE | 2024-02-27 07:12 | PC.NURSE ---
Late entry by this RN: This RN assumed care of patient at 19:00 on 02/26/2024. Pt is on oxygen at 2 LPM at baseline. IV access patent and functional, right AC. Patient has purewick in place, has voided and been cleaned 3 times during overnight shift. Pt is able to stand/pivot with 1-2 person assistance to bedside commode. Linens changed all 3 times. Given snacks throughout the shift and has been able to make needs known. Call moya within reach. Pleasant/cooperative. Refused blanket. Medicated as ordered, including PRN updrafts.
[2024-02-27] MEDS: Omeprazole 20 MG CAPSULE.DR PO (07:19)
[2024-02-27] MEDS: Levothyroxine Sodium 25 MCG TABLET PO (07:19)
--- NOTE | 2024-02-27 09:00 | PC.NURSE ---
pt is alert and oriented, skin pwd, respirations even and unlabored but with any exertion pt becomes sob and winded, pt is reporting stone in her legs 5/10 offered Tylenol but refused at this time pt transferred into a hospital bed for comfort, pt given a sponge bath and clean hospital gown applied pt medicated with her 0900 medications but awaiting for pharmacy to bring up abraham
[2024-02-27] MEDS: levoFLOXacin 750 MG TABLET PO (09:08)
[2024-02-27] MEDS: Folic Acid 1 MG TABLET PO (09:08)
[2024-02-27] MEDS: Amoxicillin/Potassium Clav 875 MG TABLET PO ×2 (09:09→20:30)
[2024-02-27] MEDS: Furosemide 40 MG TABLET PO (09:09)
[2024-02-27] MEDS: Magnesium Oxide 400 MG TABLET PO (09:09)
[2024-02-27] MEDS: PARoxetine HCL 40 MG TABLET PO ×2 (09:09→20:30)
[2024-02-27] MEDS: Apixaban 5 MG TABLET PO ×2 (09:09→20:30)
[2024-02-27] MEDS: guaiFENesin DM 600/30 1 TAB TAB.ER.12H PO ×2 (09:09→21:24)
[2024-02-27] MEDS: Potassium Chloride ER 20 MEQ TAB.ER.PRT PO (09:09)
[2024-02-27] MEDS: predniSONE 20 MG TABLET 50 MG PO (09:11)
[2024-02-27] MEDS: Metoprolol Succinate ER 50 MG TAB.ER.24H 150 MG PO (09:11)
[2024-02-27] MEDS: Buprenorphine/Naloxone 2/0.5mg FILM 1 FILM SUBLINGUAL (09:12)
[2024-02-27] MEDS: dilTIAZem HCL CD 240 MG CAP.ER.DEG PO (10:29)
--- NOTE | 2024-02-27 10:54 | PC.NURSE ---
report given to kobi elizabeth in overflow
--- NOTE | 2024-02-27 11:35 | PC.NURSE ---
Pt arrived to overflow from main ED, pt is very anxious, and reports feeling all of the changes happening to her body are really hard on her. She wants to be able to do so much more than she is able to because of her breathing. Provider made aware, awaiting orders to be placed at this time for something to help calm her down. Vitals are stable at this time on her baseline O2, Purewic in place at this time. Pt is concerned about finding out the address of where she came from so her daughter can go last picker her stuff. Emotional support provided to patient at this time, oriented to room, call moya within reach
[2024-02-27] MEDS: LORazepam 0.5 MG TABLET PO (11:59)
--- NOTE | 2024-02-27 16:25 | PC.NURSE ---
This RN answered call light to have pt reporting she feels like she i having a hard time breathing, pt had just received a breathing treatment, O2 89-90% on baseline 4L, pt does appear to be anxious at this time. Resp called as pt is wanting another breathing treatment.
[2024-02-27] MEDS: Atorvastatin Calcium 10 MG TABLET PO (20:30)
--- NOTE | 2024-02-27 20:41 | PC.NURSE ---
pt washed and repositioned, barrier cream applied to enio area, very red in groin folds bilateral and under stomach folds. pt requested oxycodone for pain. pt medicated per JUN. RT at bedside for duoneb
[2024-02-27] MEDS: oxyCODONE HCl Immed Release 5 MG TABLET PO (21:24)
[2024-02-28] VITALS (16 sets, daily range): BP systolic 141–172; BP diastolic 88–99; PULSE 64–107; RESP 19–28; TEMP 36.2–37.3; O2SAT 73–95
[2024-02-28] MEDS: Albuterol/Iprat 2.5/0.5MG 3 ML AMPUL.NEB INHALE ×5 (05:31→21:28)
[2024-02-28] MEDS: Omeprazole 20 MG CAPSULE.DR PO (05:59)
[2024-02-28] MEDS: Levothyroxine Sodium 25 MCG TABLET PO (06:00)
--- NOTE | 2024-02-28 08:45 | MHC.EDTECH ---
pt ate 100 breakfast
--- NOTE | 2024-02-28 09:50 | MHC.EDTECH ---
pt was washed up and had a complete bed change
[2024-02-28] MEDS: Furosemide 40 MG TABLET PO (10:12)
[2024-02-28] MEDS: levoFLOXacin 750 MG TABLET PO (10:12)
[2024-02-28] MEDS: dilTIAZem HCL CD 240 MG CAP.ER.DEG PO (10:12)
[2024-02-28] MEDS: Potassium Chloride ER 20 MEQ TAB.ER.PRT PO (10:12)
[2024-02-28] MEDS: guaiFENesin DM 600/30 1 TAB TAB.ER.12H PO ×2 (10:12→21:45)
[2024-02-28] MEDS: predniSONE 20 MG TABLET 50 MG PO (10:13)
[2024-02-28] MEDS: Metoprolol Succinate ER 50 MG TAB.ER.24H 150 MG PO (10:13)
[2024-02-28] MEDS: Amoxicillin/Potassium Clav 875 MG TABLET PO ×2 (10:13→21:45)
[2024-02-28] MEDS: Folic Acid 1 MG TABLET PO (10:13)
[2024-02-28] MEDS: Apixaban 5 MG TABLET PO ×2 (10:14→21:47)
[2024-02-28] MEDS: Magnesium Oxide 400 MG TABLET PO (10:14)
[2024-02-28] MEDS: PARoxetine HCL 40 MG TABLET PO ×2 (10:14→21:46)
--- NOTE | 2024-02-28 10:20 | MHC.CM.ED ---
Addendum entered by Holly Sullivan 02/28/24 15:59: Reyna from [facility] will be on-site tomorrow 02/28 at 10am to complete Level 2 eval. Original Note: Patient remains in ER overflow. [facility] is only facility that is able to offer a bed. Met with patient and sig other, Richard. Both are agreeable to [facility]. Patient does not have a Cpap at home. Only uses oxygen. Hasn't been on Cpap or Bipap since returning to the ER. Continue to monitor for d/c needs.
[2024-02-28] MEDS: Buprenorphine/Naloxone 2/0.5mg FILM 1 FILM SUBLINGUAL (10:53)
--- NOTE | 2024-02-28 11:13 | PC.NURSE ---
pt a&ox3, vitals stable, rr equal/non labored- lungs diminished but clear, pt continuously asking for updraft treatment that are currently PRN, MATTI Morrison was notified and this nurse asked for them to be changed to scheduled so patient doesnt need to continuously ask for a treatment, new scheduled orders have been placed. pt was given all other po medications, call moya within reach, resting comfortably at this time, will continue to monitor
--- NOTE | 2024-02-28 12:30 | MHC.EDTECH ---
pt was 1 assist with a bedpan no bm but did void
--- NOTE | 2024-02-28 12:47 | MHC.EDTECH ---
pt ate 100% lunch
[2024-02-28] MEDS: Acetaminophen 325 MG TABLET 650 MG PO (13:17)
--- NOTE | 2024-02-28 13:18 | PC.NURSE ---
pt medicated for 5/10 gum pain.
--- NOTE | 2024-02-28 15:41 | PC.NURSE ---
pt currently sleeping, rr equal/non labored, vss, will continue plan of care
--- NOTE | 2024-02-28 16:56 | MHC.EDTECH ---
pt voided 300 ml from her purewick
--- NOTE | 2024-02-28 18:12 | MHC.EDTECH ---
pt was washed up and boosted up in bed 2 assist and [id number]
--- NOTE | 2024-02-28 18:13 | MHC.EDTECH ---
pt ate 100% dinner
--- NOTE | 2024-02-28 18:14 | PC.NURSE ---
patient was turned/positioned to assist with comfort, while moving the patient up in bed her O2 sat dropped to 73% on 3L NC, this nurse increased the NC up to 6L and coached the patient to deep breathe through her nose and out her mouth, patients O2 sat increased back to 91%, this nurse turned the O2 back down to 4L. Patients lungs currently have course crackles in the bases which she did not have in her earlier assessment today. Pt states she is too claustrophobic for bipap use as they had tried that in the past. ED provider was notified as was RT. ED provider currently at bedside to evaluate the patient.
--- NOTE | 2024-02-28 18:46 | PC.NURSE ---
pt remains on 6L NC now humidified, charge nurse in ED is aware that the patient needs to return there for additional treatment and probable bipap and monitoring.
--- NOTE | 2024-02-28 19:35 | PC.NURSE ---
pt medication needs a parts salesman which is not available on overflow- charge is aware of this and working to get a bed for patient in the main ed. this was also passed onto the night nurse.
--- NOTE | 2024-02-28 19:46 | PC.NURSE ---
admission discharge rn made aware of the need to have the pt go back to the main for cardiac monitoring for med administration.
[2024-02-28] MEDS: methylPREDNISolone Sod Succ 125 MG/2 ML VIAL IVPUSH (20:31)
[2024-02-28] MEDS: Magnesium Sulfate/H2O 2 GM/50 ML PIGGYBACK IV (20:31)
[2024-02-28] MEDS: Ondansetron ODT 4 MG TAB.RAPDIS TRANSLINGU (21:10)
[2024-02-28] MEDS: oxyCODONE HCl Immed Release 5 MG TABLET PO (21:46)
[2024-02-28] MEDS: Atorvastatin Calcium 10 MG TABLET PO (21:47)
--- NOTE | 2024-02-28 23:41 | PC.RT ---
CPAP machine provided as ordered. Patient refuses to wear device. Patient was educated but still declines to wear. Patient instructed to call if she experiences any difficulty with her breathing or wishes to wear device.
[2024-02-29] VITALS (21 sets, daily range): BP systolic 102–146; BP diastolic 77–102; PULSE 70–90; RESP 16–31; TEMP 35.8–36.8; O2SAT 88–97
[2024-02-29] MEDS: Albuterol/Iprat 2.5/0.5MG 3 ML AMPUL.NEB INHALE ×4 (00:24→11:15)
[2024-02-29] MEDS: Levothyroxine Sodium 25 MCG TABLET PO (06:42)
[2024-02-29] MEDS: Omeprazole 20 MG CAPSULE.DR PO (06:42)
[2024-02-29 08:39] LABS: Basophils Percent Auto 0.3 % (0-2); Hematocrit 32.9 % (37.0-47.0); Hemoglobin 10.7 g/dl (12.0-16.0); Imm Gran Abs Auto 0.28 X10*3/uL (0.00-0.03); Imm Gran Pct Auto 2.1 % (0.0-0.4); Lymphocytes Absolute Auto 0.3 X10*3/uL (1.2-4.9); Lymphocytes Percent Auto 2.3 % (20-40); MANUAL DIFF FLAG SCAN; Mean Corpuscular HGB Conc 32.5 g/dl (31.0-35.0); Mean Corpuscular Hemoglobin 29.8 pg (27.0-33.0); Mean Corpuscular Volume 91.6 fL (80.0-98.0); Mean Platelet Volume 11.4 fL (9.4-12.3); Monocytes Absolute Auto 0.3 X10*3/uL (0.1-1.2); Monocytes Percent Auto 2.2 % (2-11); NRBC Pct Auto 0.2 /100WBC (0.0-0.2); Neutrophils Absolute Auto 12.1 x10*3/uL (2.0-8.3); Neutrophils Percent Auto 93.1 % (45-73); Red Blood Count 3.59 X10*6/uL (4.20-5.50); Red Cell Distribution Width 15.1 % (11.0-16.0); SCAN SMEAR FLAG 1; White Blood Count 13.1 X10*3/uL (4.8-10.8)
[2024-02-29] MEDS: Furosemide 40 MG TABLET PO (08:57)
[2024-02-29 09:04] LABS: Platelet Count 90 X10*3/uL (160-400)
[2024-02-29 09:06] LABS: SLIDE REVIEW VERIFIED
[2024-02-29 09:08] LABS: Alanine Aminotransferase 53 U/L (0-31); Albumin Level 3.9 g/dL (3.5-5.0); Alkaline Phosphatase 57 U/L (39-117); Anion Gap 17 (12-20); Aspartate Amino Transferase 25 U/L (5-31); Bilirubin Total 0.5 mg/dL (0.0-1.0); Blood Urea Nitrogen 45 mg/dL (9-16); Calcium 9.4 mg/dL (8.4-10.2); Carbon Dioxide 33 mmol/L (22-29); Chloride 88 mmol/L (96-108); Creatinine Clr Calc Pharmacy 49.2; Estimated Glomerular Filt Rate 38; Glucose Random 350 mg/dL (60-115); Magnesium 2.5 mg/dL (1.6-2.6); Potassium 5.2 mmol/L (3.3-5.1); Sodium 133 mmol/L (135-145); Total Protein 6.3 g/dL (6.5-8.0)
--- NOTE | 2024-02-29 09:14 | PC.NURSE ---
This RN was preparing morning meds, pt took a sip of water and was about to take one pill when she started having choking episode, brief. Pt was sat upright prior to starting drinking water. Had coughing episode was was able to clear some water and phlegm from her airway, speaking. O2 monitored remained >88%, pt placed on oxy mask at 15L per her request and then RT at bedside setting up BIPAP. Pt tolerating well, vitals remained stable. Morning meds held at this time along with anything PO. RT reported pt had similar episode yesterday with eating and drinking. Provider notified and orders placed, pt will have chest x-ray and speech consult.
[2024-02-29] MEDS: fentaNYL citrate/PF 100 MCG/2 ML VIAL 50 MCG IVPUSH (09:37)
--- NOTE | 2024-02-29 09:48 | PC.NURSE ---
All meds and oral fluids held. Pt is on CPAP at 8 PEEP per RT, tolerating well. breathing unlabored.
--- NOTE | 2024-02-29 10:28 | PC.NURSE ---
Pt taken off CPAP, placed back on 6L O2 NC, tolerating well
--- NOTE | 2024-02-29 10:38 | PC.NURSE ---
Speech at bedside
--- NOTE | 2024-02-29 10:40 | PM.IMHP ---
History of Present Illness Date of Service: 02/29/24 Attending physician on admission: Mukesh Kwan Chief Complaint: SOB, hypoxia 63 yo female with PMH of NSC lung cancer (s/p LITA/RUL lobectomies) with mets on palliative chemotherapy, breast cancer, depression, hepatitis-C, HTN, CHF , EF 60-65%, COPD with chronic respiratory failure on 3 L O2 at home not compliant with nighttime CPAP, Afib on eliquis recent admit here for COPD/afib with RVR on dilt gtt. She was sent to [facility] today from inpatient, discharged 02/23 - she was trying to sleep and no O2 was on and no nightime CPAP - found to be 73% on RA by staff - they tried her 3L NC, then NRB without help. EMS placed her on bipap and gave 125mg solumedrol - on arrival patient was not in distress, she stated she is not going back there as she was not on her oxygen. She has been monitored and awaiting a bed in the ED since 02/23, has had multiple episodes of aspiration. She also complains of mouth pain. Mild chronic chest pain, mild wheezing. no fever, chills,nausea, vomiting or abd pain. Review of Systems Constitutional: Constitutional: Denies body ache(s), Denies chills, Denies fever(s) and Denies headache(s) Eyes: Eyes: Denies change in vision ENT: Denies headache(s), Reports mouth lesions, Reports mouth pain, Denies nasal congestion and Denies nasal discharge Cardiovascular: Cardiovascular: Denies rapid heart rate, Reports leg edema (LLE) and Reports dyspnea (at baseline) Respiratory: Respiratory: Denies cough, Reports dyspnea (at baseline) and Reports wheezing Gastrointestinal: Gastrointestinal: Denies diarrhea, Denies nausea and Denies vomiting Genitourinary: Genitourinary: Denies dysuria and Denies urinary urgency Musculoskeletal: Musculoskeletal: Denies back pain Integumentary/Breasts: Skin/Breast: Denies rash Neurologic: Denies headache(s) Psychiatric: Psychiatric: Reports anxiety Allergic/Immunologic: Allergic/Immunologic: Reports wheezing [facility] Medical History CHF (congestive heart failure) COPD (chronic obstructive pulmonary disease) Pneumonitis Lung cancer Pancytopenia New onset a-fib Cancer of upper lobe of left lung (~2020) Bilateral lung cancer Obesity History of hepatitis C Smoker Tubular adenoma of colon Pulmonary nodules History of breast cancer (~2006) Internal and external bleeding hemorrhoids Cancer of upper lobe of right lung (~2019) GERD (gastroesophageal reflux disease) Depression COPD (chronic obstructive pulmonary disease) HTN (hypertension) Family History Mother History of lung cancer Brother History of lung cancer Maternal Grandmother Breast cancer in female Maternal Aunt Breast cancer in female Daughter Thyroid cancer Surgical History History of lung surgery (~2020) History of anterior colporrhaphy (~2016) History of tubal ligation History of lumpectomy of right breast (~2006) History of colonoscopy (~2014) History of hemorrhoidectomy (~2019) History of back surgery (~2011) History of lobectomy of lung (~2019) Social History Household Members: Spouse Household Members Other:: 2 Housing: Apartment Are you a primary director of medicare to a significant other at home: No Do you presently have visiting nurse or other home services: Yes (Nurse, PT) Unable to assess alcohol history related to: Unable to respond Alcohol intake: never Comment: Refused all safety measures Patient Tobacco Use Status: Former Tobacco user Tobacco use type: Cigarette Cigarette Packs Per Day: 1 Years Smoked: 50 Smoked in Last 30 Days: No e-Cigarette/Vaping Use: Former Use Second Hand Smoke Exposure: Yes Use of substances other than those prescribed or required for medical reasons: No Substance Use Type: Marijuana Advance Directives: Yes Advance Directives on File: Yes Advance Directives Date on File: 02/02/22 Do you have a plan to hurt others: No Plan Patient : No service: No Current occupational status: disabled Current occupational exposures/hazards: No Meds Allergies Allergy/AdvReac Type Severity Reaction Status Date / Time lisinopril [LISINOPRIL] Allergy Severe SWELLING- Verified 02/24/24 20:51 ANGIOEDEMA codeine [CODEINE] Allergy Intermediate VOMITING/HIVES, Verified 02/24/24 20:51 vomiting, hives Active Medications: Current Medications Acetaminophen (Acetaminophen 325 Mg Tablet) 650 mg PO DAILY PRN PRN Reason: Pain Last Admin: 02/28/24 13:17 Dose: 650 mg Albuterol Sulfate (Albuterol Sulfate 90 Mcg 8 Gm Inhaler) 2 puff INHALE Q6H PRN PRN Reason: sob Albuterol/Ipratropium (Albuterol/Iprat 2.5/0.5mg 3 Ml Ampul.Neb) 3 ml INHALE RQ6H PRN PRN Reason: wheezing Albuterol/Ipratropium (Albuterol/Iprat 2.5/0.5mg 3 Ml Ampul.Neb) 3 ml INHALE RQ4H [facility] Last Admin: 02/29/24 07:39 Dose: 3 ml Amoxicillin/Clavulanate Potassium (Amoxicillin/Potassium Clav 875 Mg Tablet) 875 mg PO BID [facility] Stop: 03/02/24 21:01 Last Admin: 02/29/24 09:40 Dose: Not Given Apixaban (Apixaban 5 Mg Tablet) 5 mg PO BID [facility] Last Admin: 02/29/24 09:40 Dose: Not Given Atorvastatin Calcium (Atorvastatin Calcium 10 Mg Tablet) 10 mg PO BEDTIME [facility] Last Admin: 02/28/24 21:47 Dose: 10 mg Buprenorphine/Naloxone (Buprenorphine/Naloxone 2/0.5mg Film) 1 film SUBLINGUAL DAILY [facility] Last Admin: 02/29/24 09:42 Dose: Not Given Diltiazem HCl (Diltiazem Hcl Cd 240 Mg Cap.Er.Deg) 240 mg PO DAILY [facility]; Protocol Last Admin: 02/29/24 09:40 Dose: Not Given Docusate Sodium (Docusate Sodium 100 Mg Capsule) 100 mg PO BEDTIME PRN PRN Reason: stool softener Folic Acid (Folic Acid 1 Mg Tablet) 1 mg PO DAILY [facility] Last Admin: 02/29/24 09:40 Dose: Not Given Furosemide (Furosemide 40 Mg Tablet) 40 mg PO DAILY [facility]; Protocol Last Admin: 02/29/24 08:57 Dose: 40 mg Guaifenesin/Dextromethorphan (Guaifenesin Dm 600/30 1 Tab Tab.Er.12h) 1 tab PO BID [facility] Last Admin: 02/29/24 09:40 Dose: Not Given Levofloxacin (Levofloxacin 750 Mg Tablet) 750 mg PO DAILY [facility] Stop: 03/01/24 09:01 Last Admin: 02/29/24 09:41 Dose: Not Given Levothyroxine Sodium (Levothyroxine Sodium 25 Mcg Tablet) 25 mcg PO DAILY@0600 [facility] Last Admin: 02/29/24 06:42 Dose: 25 mcg Magnesium Oxide (Magnesium Oxide 400 Mg Tablet) 400 mg PO DAILY [facility] Last Admin: 02/29/24 09:40 Dose: Not Given Metoprolol Succinate (Metoprolol Succinate Er 50 Mg Tab.Er.24h) 150 mg PO DAILY [facility]; Protocol Last Admin: 02/29/24 09:39 Dose: Not Given Nicotine (Nicotine 21 Mg Patch.Td24) 21 mg TRANSDERMA DAILY PRN PRN Reason: Smoking Cessation Non-Formulary Medication (Milnacipran [Savella]) 50 mg PO BID [facility] Non-Formulary Medication (Umeclidinium-Vilanterol [Anoro Ellipta]) 1 inhalation INHALE DAILY [facility] Omeprazole (Omeprazole 20 Mg Capsule.Dr) 20 mg PO DAILY@0630 [facility] Last Admin: 02/29/24 06:42 Dose: 20 mg Oxycodone HCl (Oxycodone Hcl Immed Release 5 Mg Tablet) 5 mg PO Q6H PRN PRN Reason: Severe Pain (Scale Score 7-10) Last Admin: 02/28/24 21:46 Dose: 5 mg Paroxetine HCl (Paroxetine Hcl 40 Mg Tablet) 40 mg PO BID [facility] Last Admin: 02/29/24 09:40 Dose: Not Given Potassium Chloride (Potassium Chloride Er 20 Meq Tab.Er.Prt) 20 meq PO DAILY [facility] Last Admin: 02/29/24 09:39 Dose: Not Given Prednisone (Prednisone 20 Mg Tablet) 40 mg PO DAILY [facility] Stop: 03/02/24 09:01 Last Admin: 02/29/24 09:39 Dose: Not Given Prednisone (Prednisone 10 Mg Tablet) 30 mg PO DAILY [facility] Stop: 03/05/24 09:01 Prednisone (Prednisone 20 Mg Tablet) 20 mg PO DAILY [facility] Stop: 03/08/24 09:01 Prednisone (Prednisone 10 Mg Tablet) 10 mg PO DAILY [facility] Stop: 03/11/24 09:01 Home Medications ?Medication ?Instructions ?Recorded ?Confirmed ?Last Taken ?Type milnacipran 50 mg tablet (Savella) 50 mg PO BID 01/18/22 02/25/24 02/06/24 History omeprazole 20 mg capsule,delayed 20 mg PO DAILY@0630 01/18/22 02/25/24 02/06/24 History release paroxetine HCl 20 mg tablet 40 mg PO BID 01/18/22 02/25/24 02/06/24 History simvastatin 20 mg tablet 20 mg PO BEDTIME 02/17/22 02/25/24 02/06/24 History albuterol sulfate 90 mcg/actuation 2 puff inhalation Q6H PRN sob 06/22/23 02/25/24 02/06/24 History aerosol inhaler (Ventolin HFA) docusate sodium 100 mg capsule 100 mg PO BEDTIME PRN stool 07/09/23 02/25/24 02/06/24 History softener umeclidinium 62.5 mcg-vilanterol 1 inh inhalation DAILY 07/09/23 02/25/24 02/06/24 History 25 mcg/actuation powdr for inhalation (Anoro Ellipta) ipratropium 0.5 mg-albuterol 3 mg 3 ml inhalation Q6H PRN wheezing 10/18/23 02/25/24 02/06/24 History (2.5 mg base)/3 mL nebulization soln acetaminophen 500 mg tablet 500 mg PO DAILY PRN Pain 11/03/23 02/25/24 02/06/24 History furosemide 40 mg tablet 40 mg PO DAILY 01/19/24 02/25/24 02/06/24 History nicotine 21 mg/24 hr daily 21 mg transdermal DAILY PRN 01/19/24 02/25/24 02/06/24 History transdermal patch Smoking Cessation oxycodone 5 mg tablet 5 mg PO Q6H PRN Severe Pain (Scale 02/25/24 02/25/24 Unknown History Score 7-10) prednisone 10 mg tablet 10 - 50 mg PO DIRECTED 02/25/24 02/25/24 Unknown History Physical Exam Vital Signs and Narrative: Vital Signs: Last Vital Signs Temp 97.9 F 02/29/24 09:21 Pulse 70 02/29/24 09:49 Resp 18 02/29/24 09:49 BP 120/80 02/29/24 09:21 Pulse Ox 95 02/29/24 09:49 O2 Del Method CPAP 02/29/24 09:49 O2 Flow Rate 6 02/29/24 08:55 BMI result Body Mass Index 38.2 General: AOx3, no acute distress HEENT: oral thrush Resp: crackles and wheezing throughout CVS: regular rate, irregularly irregular GI: +BS, NT, no distention Skin: Warm, dry Extremities: 1+ pitting edema LLE, no RLE edema Psych: Appropriate affect Results Labs 02/29/24 08:29 02/29/24 08:29 Labs: Laboratory Results - last 24 hr 02/29/24 08:29 MCV 91.6 MCH 29.8 MCHC 32.5 RDW 15.1 Plt Count 90 L MPV 11.4 Immature Gran % (Auto) 2.1 H Neut % (Auto) 93.1 H Lymph % (Auto) 2.3 L C[place] % (Auto) 2.2 Eos % (Auto) 0.0 Baso % (Auto) 0.3 Lymph # (Auto) 0.3 L [place] # (Auto) 0.3 Eos # (Auto) 0.0 Baso # (Auto) 0.0 Abs Immat Gran (auto) 0.28 H Absolute Neuts (auto) 12.1 H Absolute Nucleated RBC 0.030 H Nucleated RBC % (auto) 0.2 Smear Tech's Comments VERIFIED Anion Gap 17 Estim Creat Clear Calc 49.2 Estimated GFR 38 Random Glucose 350 H* Calcium 9.4 Magnesium 2.5 Total Bilirubin 0.5 AST 25 ALT 53 H Alkaline Phosphatase 57 Total Protein 6.3 L Albumin 3.9 Imaging Radiologist's Impressions: Impressions Chest X-Ray 02/29/24 09:08 IMPRESSION: No significant change in bilateral pleural fluid and/or thickening, left greater than right, and underlying atelectasis. Electronically signed by: Dick Lopez MD 02/29/2024 09:32 AM [facility] Assessment and Plan (1) Acute and chronic respiratory failure with hypoxia: Status: Acute (2) COPD with acute exacerbation: Status: Acute (3) Bilateral lung cancer: Status: Chronic (4) Non-small cell cancer of right lung: Status: Chronic (5) VIKTORIYA (acute kidney injury): Status: Acute (6) Oral thrush: Status: Acute (7) Obesity (BMI 30-39.9): Status: Chronic Plan 63F pMH [id number] lung cancer, breast cancer, depression, hepatitis-C, hypertension, chronic diastolic CHF, COPD with chronic hypoxic respiratory failure on 3 L home O2, paroxysmal atrial fibrillation, hypothyroid presented with acute on chronic hypercapnic and hypoxic respiratory failure 2nd secondary to lack of O2 SNF per patient. Recently discharged 02/23 with chronic AFib and COPD exacerbation, still on p.o. steroids. Has been held in ED since 02/23 awaiting a bed, now with aspiration episodes and intermittent CPAP requirement. acute on chronic hypercapnic and hypoxic respiratory failure secondary to COPD with acute decompensation in backdrop of stage IV [id number] lung cancer and non-complicance with O2 at SNF - multiple aspiration episodes in ED, bedside swallow: Advanced chopped diet, pills crushed with pudding or applesauce, if they cannot be crushed okay whole, thin liquids okay - oral thrush on exam, IV fluconazole started, 400mg now, 100mg PO daily tomorrow due to cr cl - ? new RLL patchy denisty on CXR 02/23- started on augmentin, will continue - xopenex/ipratropium Q4H PRN wheezing - no sepsis, WBC 13.1 related to prednisone, tachypnea due to chronic respiratory failure - continue prednisone taper - monitor CBC and BMP mild VIKTORIYA - LR 100ml/hr x2 L - monitor BMP - hold lasix LLE edema - LLE dopplar US r/o DVT - holding lasix as above Chronic AFib - rate controlled - continue diltiazem and Eliquis Chronic diastolic CHF - stable and well compensated Hypothyroid - continue levothyroxine Stage IV non-small cell lung cancer - followed by oncology full code until my children get here VTE prophy: eliqutoya Pt with acute on chronic hypercapnic and hypoxic respiratory failure secondary to COPD with acute decompensation in backdrop of stage 4 non-small cell lung cancer and noncompliance with O2 at SNF with multiple aspiration episodes in ED while awaiting a bed at a new SNF, requires admission for at least 2 midnights stay for monitoring due to respiratory decompensation and aspiration episodes. Quality Stroke Does the patient have a stroke diagnosis?: No VTE Prior VTE?: No VTE Risk Level:: Medical - moderate - high VTE Device Contraindication: Treatment Not Indicated VTE Drug Contraindication: N/A - Med Ordered
[2024-02-29 10:43] LABS: Glucose, Whole Blood 330 mg/dL (60-115)
--- NOTE | 2024-02-29 10:44 | MHC.CM.ED ---
Addendum entered by Holly Sullivan 03/01/24 11:04: Patient's appointment with Dr Samuels for 03/02 changed to at 120pm by Anahi, wool sampler. Addendum entered by Holly Sullivan 02/29/24 13:04: Received notification from Reyna of [facility] that she had to cancel Level 2 because patient was admitted to hospital. New Level 1 will have to be completed when patient is medically stable for d/c. Original Note: Patient remains in ER. Received notification that patient will be admitted. [facility] made aware. Continue to monitor for d/c needs.
--- NOTE | 2024-02-29 10:45 | PC.NURSE ---
Per speech: advanced chopped diet pills crushed with pudding or applesauce, ones that cannot be crushed are ok to go whole with that thin liquids ok note to follow
[2024-02-29 11:05] LABS: Estimated Average Glucose 183 mg/dL; Hemoglobin A1C 184.9381 umol/L; Total Hemoglobin (HGBA1C) 2878.7618 umol/L
[2024-02-29] MEDS: Fluconazole in NaCl,Iso-Osm 400 MG/200 ML PIGGYBACK 100 MG IV (12:06)
[2024-02-29] MEDS: Lactated Ringers 1,000 ML 100 ML IVCONT (12:08)
--- NOTE | 2024-02-29 12:22 | MHC.SL.SWA ---
Speech Pathologist Impression: Risk of Aspiration Due to: Medically Fragile Dysphasia Diet Status: Liquid Consistency and Strategies for Safe Swallow: Liquid Intake Recommendation: Thin Liquid Intake Strategies: Unrestricted Solid Food Consistency: Dietary Recommendations: Chopped/Advanced (NDD3) Additional Modifications to Solid Foods: DAYCARE WORKER recommending Chopped/Advanced Solids and Thin Liquids. Meds Whole or Crushed in Puree. Ensure upright positioning and supervision during meals. Discontinue of overt s/s of aspiration recur. Oral Medication Intake: Crushed with Puree Please contact the pharmacy regarding appropriate crushable or liquid drug formulations that are available whenever modified delivery is recommended. Compensatory Strategies and Precautions to be Taken for Safe Swallow: Sitting Upright (90 deg) Small Bites and Sips Alternate Liquids/Solids Rate of Ingestion Change Supervision While Eating and Drinking for Safe Swallow: Total Supervision (1:1) Swallowing Recommended Treatments: Compens. Strategy Educat. Recommendation for Speech: Inpatient Speech Therapy Comment: DAYCARE WORKER recommending Chopped/Advanced Solids and Thin Liquids. Meds Whole or Crushed in Puree. Ensure upright positioning and supervision during meals. Discontinue of overt s/s of aspiration recur. Frequency/Duration: Daily Date Range for Service Req: Admission Timeline to reassess: PRN Extension Work Director Clinican/Clinical Fellow: No Supervisory Statement: I have reviewed and agree with the student/clinical fellow's documentation: N/A Speech Language Pathologist: Artis Mcfarlane M.A., CCC-DAYCARE WORKER
--- NOTE | 2024-02-29 14:05 | PC.NURSE ---
PER PROVIDER GIVE MORNING DOSE OF METOPROLOL, PREDNISONE AND DILT SINCE SHE DID NOT GET IT THIS MORNING
[2024-02-29] MEDS: Metoprolol Succinate ER 50 MG TAB.ER.24H 150 MG PO (14:10)
[2024-02-29] MEDS: predniSONE 20 MG TABLET 40 MG PO (14:11)
[2024-02-29] MEDS: dilTIAZem HCL CD 240 MG CAP.ER.DEG PO (14:13)
--- NOTE | 2024-02-29 14:20 | PC.NURSE ---
Pt able to tolerate meds one at a time with pudding followed with some water. IV appears to be not working anymore. No infiltration noted. RN at bedside trying to get US guided line due to pt being hard stick.
[2024-02-29 15:31] LABS: Adenovirus PCR Not Detected (Not Detect.); Bordetella parapertussis PCR Not Detected (Not Detect.); Bordetella pertussis PCR Not Detected (Not Detect.); Chlamydia pneumoniae PCR Not Detected (Not Detect.); Coronavirus 229E PCR Not Detected (Not Detect.); Coronavirus HKU1 PCR Not Detected (Not Detect.); Coronavirus NL63 PCR Not Detected (Not Detect.); Coronavirus OC43 PCR Not Detected (Not Detect.); Human metapneumovirus PCR Detected (Not Detect.); Influenza A PCR Not Detected (Not Detect.); Influenza B PCR Not Detected (Not Detect.); Mycoplasma pneumoniae PCR Not Detected (Not Detect.); Parainfluenza 1 PCR Not Detected (Not Detect.); Parainfluenza 2 PCR Not Detected (Not Detect.); Parainfluenza 3 PCR Not Detected (Not Detect.); Parainfluenza 4 PCR Not Detected (Not Detect.); RSV PCR Not Detected (Not Detect.); Rhino/Enterovirus PCR Not Detected (Not Detect.)
[2024-02-29] MEDS: levalbuterol HCL 2.5 MG, Ipratropium Bromide 0.5 MG INHALE ×2 (15:35→20:11)
[2024-02-29 15:36] LABS: SARS-CoV-2 PCR Not Detected (Not Detect.)
[2024-02-29 16:53] LABS: Glucose, Whole Blood 289 mg/dL (60-115)
[2024-02-29] MEDS: Insulin Lispro 100 UNIT/ML 3 ML VIAL SUBCUT ×2 (17:15→22:16)
--- NOTE | 2024-02-29 17:32 | PC.NURSE ---
Pt and daughter request that daughter be present for any convos regarding pts health/interventions/ procedures etc. daughter is HCP
--- NOTE | 2024-02-29 18:26 | P.CNGI_ITS ---
History of Present Illness Data of Consult Service Date: 02/29/24 Requesting physician: Noni Aguirre Primary Care Provider: Daphne Rodriguez MD HPI Reason for consult: aspiration 62-year-old f w/ hx of metastatic non-small cell lung cancer status post wedge resection on chemo/immunotherapy, history of breast cancer, COPD on home O2, paroxysmal atrial fibrillation, who I am seeing for aspiration Patient was increasingly short of breath last few days, admits to choking and feeling like food and water going in the lungs. She has cough but denies chest pain, abdominal pain, nausea, vomiting, rectal bleeding or melena. Apaprently she performed poorly on bedside swallow eval, also being treated for possible oral thrush. Imaging: last CT chest- wedge #, left pleural effusion and emphysematous changes --no hiatal hernia-some esophageal thickening noted Review of Systems 2 Review of Systems: Constitutional : No Weight loss, No Fever, No Chills ENT/Mouth : No sore throat, No Rhinorrhea Eyes: No Swelling, No Redness Cardiovascular : No Chest Pain, + SOB, No Edema Respiratory : + Cough, No Sputum, No Wheezing Gastrointestinal : see HPI Genitourinary : NO Dysuria, No Urinary Frequency, No Hematuria, No Urgency Musculoskeletal : no joint pain, No Myalgias, No Joint Swelling Skin : No Skin Lesions, No rash Neuro : + Weakness, No Numbness, No Dizziness, No Headache Psych : No Anxiety/Panic, No Depression Heme/Lymph: No Bruising, No Lymphadenopathy Endocrine : No Polyuria, No Polydipsia All other systems reviewed and are negative. [facility] Past Medical History Medical History CHF (congestive heart failure) COPD (chronic obstructive pulmonary disease) Pneumonitis Lung cancer Pancytopenia New onset a-fib Cancer of upper lobe of left lung (~2020) Bilateral lung cancer Obesity History of hepatitis C Smoker Tubular adenoma of colon Pulmonary nodules History of breast cancer (~2006) Internal and external bleeding hemorrhoids Cancer of upper lobe of right lung (~2019) GERD (gastroesophageal reflux disease) Depression COPD (chronic obstructive pulmonary disease) HTN (hypertension) Family History Family History Mother History of lung cancer Brother History of lung cancer Maternal Grandmother Breast cancer in female Maternal Aunt Breast cancer in female Daughter Thyroid cancer Surgical History Surgical History History of lung surgery (~2020) History of anterior colporrhaphy (~2016) History of tubal ligation History of lumpectomy of right breast (~2006) History of colonoscopy (~2014) History of hemorrhoidectomy (~2019) History of back surgery (~2011) History of lobectomy of lung (~2019) Social History Social History Household Members: Spouse Household Members Other:: 2 Housing: Apartment Are you a primary career development manager to a significant other at home: No Do you presently have visiting nurse or other home services: Yes (Nurse, PT) Unable to assess alcohol history related to: Unable to respond Alcohol intake: never Comment: Refused all safety measures Patient Tobacco Use Status: Former Tobacco user Tobacco use type: Cigarette Cigarette Packs Per Day: 1 Years Smoked: 50 Smoked in Last 30 Days: No e-Cigarette/Vaping Use: Former Use Second Hand Smoke Exposure: Yes Use of substances other than those prescribed or required for medical reasons: No Substance Use Type: Marijuana Advance Directives: Yes Advance Directives on File: Yes Advance Directives Date on File: 02/02/22 Do you have a plan to hurt others: No Plan Patient : No service: No Current occupational status: disabled Current occupational exposures/hazards: No Meds Allergies Allergy/AdvReac Type Severity Reaction Status Date / Time lisinopril [LISINOPRIL] Allergy Severe SWELLING- Verified 02/24/24 20:51 ANGIOEDEMA codeine [CODEINE] Allergy Intermediate VOMITING/HIVES, Verified 02/24/24 20:51 vomiting, hives Active Medications: Current Medications Acetaminophen (Acetaminophen 325 Mg Tablet) 650 mg PO DAILY PRN PRN Reason: Pain Last Admin: 02/28/24 13:17 Dose: 650 mg Albuterol Sulfate (Albuterol Sulfate 90 Mcg 8 Gm Inhaler) 2 puff INHALE Q6H PRN PRN Reason: sob Albuterol/Ipratropium (Albuterol/Iprat 2.5/0.5mg 3 Ml Ampul.Neb) 3 ml INHALE RQ4H WALTER Last Admin: 02/29/24 11:15 Dose: 3 ml Amoxicillin/Clavulanate Potassium (Amoxicillin/Potassium Clav 875 Mg Tablet) 875 mg PO BID [facility] Stop: 03/02/24 21:01 Last Admin: 02/29/24 09:40 Dose: Not Given Apixaban (Apixaban 5 Mg Tablet) 5 mg PO BID [facility] Last Admin: 02/29/24 09:40 Dose: Not Given Atorvastatin Calcium (Atorvastatin Calcium 10 Mg Tablet) 10 mg PO BEDTIME WALTER Last Admin: 02/28/24 21:47 Dose: 10 mg Buprenorphine/Naloxone (Buprenorphine/Naloxone 2/0.5mg Film) 1 film SUBLINGUAL DAILY [facility] Last Admin: 02/29/24 09:42 Dose: Not Given Calcium Carbonate (Calcium Carbonate 750 Mg Tab.Chew) 750 mg PO Q4H PRN PRN Reason: Heartburn Levalbuterol HCl 2.5 mg/ (Ipratropium [place] 0.5 mg) 0 mg INHALE RQ4H WHILE AWAKE [facility] Last Admin: 02/29/24 15:35 Dose: 6 dose Diltiazem HCl (Diltiazem Hcl Cd 240 Mg Cap.Er.Deg) 240 mg PO DAILY [facility]; Protocol Last Admin: 02/29/24 14:13 Dose: 240 mg Docusate Sodium (Docusate Sodium 100 Mg Capsule) 100 mg PO BEDTIME PRN PRN Reason: stool softener Fluconazole (Fluconazole 100 Mg Tablet) 100 mg PO DAILY [facility] Folic Acid (Folic Acid 1 Mg Tablet) 1 mg PO DAILY [facility] Last Admin: 02/29/24 09:40 Dose: Not Given Furosemide (Furosemide 40 Mg Tablet) 40 mg PO DAILY [facility]; Protocol Last Admin: 02/29/24 08:57 Dose: 40 mg Glucose (Glucose Gel 15 Gm Gel..Gram.) 15 gm PO Q15M PRN; Protocol PRN Reason: per Hypoglycemia Standing Ord. Guaifenesin/Dextromethorphan (Guaifenesin Dm 600/30 1 Tab Tab.Er.12h) 1 tab PO BID [facility] Last Admin: 02/29/24 09:40 Dose: Not Given Lactated Ringer's (Lr) 1,000 mls @ 100 mls/hr IVCONT .Q10H [facility] Stop: 03/01/24 07:44 Last Admin: 02/29/24 12:08 Dose: 100 mls/hr Dextrose (D10) 250 mls @ 750 mls/hr IV Q15M PRN; Protocol PRN Reason: per Hypoglycemia Standing Ord. Insulin Human Lispro (Insulin Lispro 100 Unit/Ml 3 Ml Vial) 0 unit SUBCUT QIDACHS [facility]; Protocol Last Admin: 02/29/24 17:15 Dose: 6 unit Levothyroxine Sodium (Levothyroxine Sodium 25 Mcg Tablet) 25 mcg PO DAILY@0600 [facility] Last Admin: 02/29/24 06:42 Dose: 25 mcg Magnesium Hydroxide (Milk Of Magnesia 30 Ml Oral.Susp) 30 ml PO DAILY PRN PRN Reason: Constipation Magnesium Oxide (Magnesium Oxide 400 Mg Tablet) 400 mg PO DAILY [facility] Last Admin: 02/29/24 09:40 Dose: Not Given Melatonin (Melatonin 3 Mg Tablet) 6 mg PO BEDTIME PRN PRN Reason: Insomnia Metoprolol Succinate (Metoprolol Succinate Er 50 Mg Tab.Er.24h) 150 mg PO DAILY [facility]; Protocol Last Admin: 02/29/24 14:10 Dose: 150 mg Nicotine (Nicotine 21 Mg Patch.Td24) 21 mg TRANSDERMA DAILY PRN PRN Reason: Smoking Cessation Non-Formulary Medication (Milnacipran [Savella]) 50 mg PO BID [facility] Non-Formulary Medication (Umeclidinium-Vilanterol [Anoro Ellipta]) 1 inhalation INHALE DAILY [facility] Omeprazole (Omeprazole 20 Mg Capsule.Dr) 20 mg PO DAILY@0630 [facility] Last Admin: 02/29/24 06:42 Dose: 20 mg Ondansetron HCl (Ondansetron Hcl 4 Mg/2 Ml Vial) 4 mg IVPUSH Q8H PRN PRN Reason: Nausea and Vomiting Oxycodone HCl (Oxycodone Hcl Immed Release 5 Mg Tablet) 5 mg PO Q6H PRN PRN Reason: Severe Pain (Scale Score 7-10) Last Admin: 02/28/24 21:46 Dose: 5 mg Paroxetine HCl (Paroxetine Hcl 40 Mg Tablet) 40 mg PO BID [facility] Last Admin: 02/29/24 09:40 Dose: Not Given Potassium Chloride (Potassium Chloride Er 20 Meq Tab.Er.Prt) 20 meq PO DAILY [facility] Last Admin: 02/29/24 09:39 Dose: Not Given Prednisone (Prednisone 20 Mg Tablet) 40 mg PO DAILY [facility] Stop: 03/02/24 09:01 Last Admin: 02/29/24 14:11 Dose: 40 mg Prednisone (Prednisone 10 Mg Tablet) 30 mg PO DAILY [facility] Stop: 03/05/24 09:01 Prednisone (Prednisone 20 Mg Tablet) 20 mg PO DAILY [facility] Stop: 03/08/24 09:01 Prednisone (Prednisone 10 Mg Tablet) 10 mg PO DAILY [facility] Stop: 03/11/24 09:01 Sodium Chloride (0.9 % Sodium Chloride Flush 3 Ml Syringe) 3 ml IVFLUSH QSHIFT [facility] Last Admin: 02/29/24 15:46 Dose: Not Given Home Medications ?Medication ?Instructions ?Recorded ?Confirmed ?Last Taken ?Type milnacipran 50 mg tablet (Savella) 50 mg PO BID 01/18/22 02/25/24 02/06/24 History omeprazole 20 mg capsule,delayed 20 mg PO DAILY@0630 01/18/22 02/25/24 02/06/24 History release paroxetine HCl 20 mg tablet 40 mg PO BID 01/18/22 02/25/24 02/06/24 History simvastatin 20 mg tablet 20 mg PO BEDTIME 02/17/22 02/25/24 02/06/24 History albuterol sulfate 90 mcg/actuation 2 puff inhalation Q6H PRN sob 06/22/23 02/25/24 02/06/24 History aerosol inhaler (Ventolin HFA) docusate sodium 100 mg capsule 100 mg PO BEDTIME PRN stool 07/09/23 02/25/24 02/06/24 History softener umeclidinium 62.5 mcg-vilanterol 1 inh inhalation DAILY 07/09/23 02/25/24 02/06/24 History 25 mcg/actuation powdr for inhalation (Anoro Ellipta) ipratropium 0.5 mg-albuterol 3 mg 3 ml inhalation Q6H PRN wheezing 10/18/23 02/25/24 02/06/24 History (2.5 mg base)/3 mL nebulization soln acetaminophen 500 mg tablet 500 mg PO DAILY PRN Pain 11/03/23 02/25/24 02/06/24 History furosemide 40 mg tablet 40 mg PO DAILY 01/19/24 02/25/24 02/06/24 History nicotine 21 mg/24 hr daily 21 mg transdermal DAILY PRN 01/19/24 02/25/24 02/06/24 History transdermal patch Smoking Cessation oxycodone 5 mg tablet 5 mg PO Q6H PRN Severe Pain (Scale 02/25/24 02/25/24 Unknown History Score 7-10) prednisone 10 mg tablet 10 - 50 mg PO DIRECTED 02/25/24 02/25/24 Unknown History Physical Exam 2 Vital Signs: Vital Signs: Last Vital Signs Temp 98.3 F 02/29/24 14:04 Pulse 90 02/29/24 16:33 Resp 16 02/29/24 16:33 BP 125/77 02/29/24 16:33 Pulse Ox 91 L 02/29/24 16:33 O2 Del Method Nasal Cannula 02/29/24 16:33 O2 Flow Rate 7 02/29/24 16:33 BMI result Body Mass Index 38.2 EXAM: GENERAL: The patient is frail and weak VITAL SIGNS:see workflow HEENT: Nonicteric sclerae, PERRLA, EOMI. Oropharynx clear. Moist mucous membranes. Conjunctivae appear well perfused. No thyroid mass. CHEST: Chest wall is nontender. HEART: Regular rate and rhythm without murmurs. LUNGS: b/l wheeze and coarse breath sounds ABDOMEN: Soft, positive bowel sounds, nontender, no organomegaly.no flank tenderness SKIN: No rash, no excessive bruising, petechiae, or purpura. NEUROLOGIC: Cranial nerves II-XII intact without motor/sensory deficit. Psych: normal affect Results Labs 02/29/24 08:29 02/29/24 08:29 Labs: Short CBC 02/29/24 Range/Units 08:29 WBC 13.1 H (4.8-10.8) X10*3/uL Hgb 10.7 L (12.0-16.0) g/dl Hct 32.9 L (37.0-47.0) % Plt Count 90 L (160-400) X10*3/uL BMP 02/29/24 08:29 Sodium 133 L Potassium 5.2 H Chloride 88 L Carbon Dioxide 33 H BUN 45 H Creatinine 1.40 Calcium 9.4 Liver Function 02/29/24 Range/Units 08:29 Total Bilirubin 0.5 (0.0-1.0) mg/dL AST 25 (5-31) U/L ALT 53 H (0-31) U/L Alkaline Phosphatase 57 (39-117) U/L Albumin 3.9 (3.5-5.0) g/dL Microbiology Microbiology Results: Microbiology 02/24/24 21:27 Blood - Venous Blood Culture - Preliminary No growth after 48 hours. 02/24/24 21:20 Blood - Venous Blood Culture - Preliminary No growth after [address] scan - chest: Attestation: I personally reviewed and interpreted this imaging study as follows: (left pl effusion, emphysema-wedge #) Chest x-ray: Attestation: I personally reviewed and interpreted this imaging study as follows: (b/l pleural effusions, hyperinflated lungs ) Assessment and Plan (1) Acute and chronic respiratory failure with hypoxia: Status: Acute Plan 1/ possible aspiration, maybe due to advanced neoplasia and paraneoplastic effect, Lambert-Eaton, or brain mets, drug effect daniela from opiates which can affect motility PLAN: 1/ SALT assessment, MBS once more able, if needs nutrition then fine bore feeding for the moment or parenteral feeding and can consider G tube at future date. 2/ Would add PPi e.g pantoprazole 40 mg to prevent GERD contribution to aspiration Procedures Date of Service Date of Service: 02/29/24
--- NOTE | 2024-02-29 21:15 | PC.NURSE ---
pt sats in low 80s% on monitor pt reports difficulty breathing, refused to allow us to reposition her initially. RT called to bedside. MD Barrientos made aware. RT up bipap to max and pt stated feeling better and RT able to put settings back to original. pt allowed to be repositioned upright. sats 93-94%. breathing tx ordered by MD and given by RT. pt now resting comfortably.
--- NOTE | 2024-02-29 21:59 | PC.NURSE ---
Addendum entered by Shante Rangel 03/01/24 05:56: [id number] - pt medicated per jun, tolerated meds with pudding some crushed, some unable to be crushed and pt tolerated whole. no sign of aspiration noted. pt placed back on bipap by rt. Original Note: RT notified to assist removing bipap mask to medicate 9pm meds. awaiting arrival to bedside.
[2024-02-29] MEDS: PARoxetine HCL 40 MG TABLET PO (22:15)
[2024-02-29] MEDS: Apixaban 5 MG TABLET PO (22:15)
[2024-02-29] MEDS: Atorvastatin Calcium 10 MG TABLET PO (22:15)
[2024-02-29] MEDS: Amoxicillin/Potassium Clav 875 MG TABLET PO (22:16)
[2024-02-29] MEDS: guaiFENesin DM 600/30 1 TAB TAB.ER.12H PO (22:16)
[2024-03-01] VITALS (20 sets, daily range): BP systolic 125–156; BP diastolic 63–107; PULSE 56–96; RESP 16–30; TEMP 35.9–36.6; O2SAT 82–95
[2024-03-01] MEDS: Albuterol/Iprat 2.5/0.5MG 3 ML AMPUL.NEB INHALE ×3 (00:02→07:18)
[2024-03-01 00:38] LABS: Glucose, Whole Blood 264 mg/dL (60-115)
[2024-03-01] MEDS: Lactated Ringers 1,000 ML 100 ML IVCONT (04:01)
[2024-03-01 05:09] LABS: Imm Gran Abs Auto 0.23 X10*3/uL (0.00-0.03); MANUAL DIFF FLAG SCAN; Mean Corpuscular Volume 92.8 fL (80.0-98.0); PLT CLUMP 1; Red Cell Distribution Width 15.3 % (11.0-16.0); SCAN SMEAR FLAG 1
[2024-03-01 05:11] LABS: Basophils Percent Auto 0.3 % (0-2); Hematocrit 30.9 % (37.0-47.0); Hemoglobin 10.1 g/dl (12.0-16.0); Lymphocytes Absolute Auto 0.4 X10*3/uL (1.2-4.9); Lymphocytes Percent Auto 3.4 % (20-40); Mean Corpuscular HGB Conc 32.7 g/dl (31.0-35.0); Mean Corpuscular Hemoglobin 30.3 pg (27.0-33.0); Mean Platelet Volume 11.3 fL (9.4-12.3); Monocytes Absolute Auto 0.5 X10*3/uL (0.1-1.2); Monocytes Percent Auto 4.4 % (2-11); NRBC Pct Auto 0.5 /100WBC (0.0-0.2); Neutrophils Absolute Auto 10.2 x10*3/uL (2.0-8.3); Neutrophils Percent Auto 89.9 % (45-73); Red Blood Count 3.33 X10*6/uL (4.20-5.50); White Blood Count 11.3 X10*3/uL (4.8-10.8)
[2024-03-01 05:12] LABS: Platelet Count 72 X10*3/uL (160-400)
[2024-03-01 05:24] LABS: Anion Gap 16 (12-20); Blood Urea Nitrogen 43 mg/dL (9-16); Calcium 9.5 mg/dL (8.4-10.2); Carbon Dioxide 32 mmol/L (22-29); Chloride 93 mmol/L (96-108); Creatinine Clr Calc Pharmacy 55.6; Estimated Glomerular Filt Rate 44; Glucose Random 236 mg/dL (60-115); Sodium 136 mmol/L (135-145)
[2024-03-01 05:28] LABS: SLIDE REVIEW VERIFIED
--- NOTE | 2024-03-01 05:49 | PC.NURSE ---
Addendum entered by Shante Rangel 03/01/24 06:39: made aware. RT placed to 55 fio2. sats 90-91%. Original Note: pt found to be 85% on bipap. wheezing auscultated. RT notified, advised to put 100% on bipap and will be down.
[2024-03-01] MEDS: Omeprazole 20 MG CAPSULE.DR PO (06:21)
[2024-03-01] MEDS: Levothyroxine Sodium 25 MCG TABLET PO (06:21)
[2024-03-01 07:15] LABS: Glucose, Whole Blood 222 mg/dL (60-115)
[2024-03-01] MEDS: Insulin Lispro 100 UNIT/ML 3 ML VIAL SUBCUT (07:22)
--- NOTE | 2024-03-01 07:26 | PC.NURSE ---
Pt is alert/oriented. Reports 5/10 chronic low back pain. On Bipap at this time settings 01/14/55%, sat noted 88%-92. Tachypneic approx breathing 24. A fib on tele rate 70s. BP stable. POC 222, Insulin given per SSI. Skin sl pale, warm and dry. Pure wick in place. LR at 100ml/hr in 20g to right AC.
[2024-03-01] MEDS: Apixaban 5 MG TABLET PO (08:49)
[2024-03-01] MEDS: guaiFENesin DM 600/30 1 TAB TAB.ER.12H PO (08:49)
[2024-03-01] MEDS: PARoxetine HCL 40 MG TABLET PO (08:50)
[2024-03-01] MEDS: Fluconazole 100 MG TABLET PO (08:51)
[2024-03-01] MEDS: Folic Acid 1 MG TABLET PO (08:52)
[2024-03-01] MEDS: predniSONE 20 MG TABLET 40 MG PO (08:53)
[2024-03-01] MEDS: Furosemide 40 MG TABLET PO (08:53)
[2024-03-01] MEDS: dilTIAZem HCL CD 240 MG CAP.ER.DEG PO (08:54)
[2024-03-01] MEDS: Magnesium Oxide 400 MG TABLET PO (08:54)
[2024-03-01] MEDS: Metoprolol Succinate ER 50 MG TAB.ER.24H 150 MG PO (08:56)
[2024-03-01] MEDS: Buprenorphine/Naloxone 2/0.5mg FILM 1 FILM SUBLINGUAL (08:59)
--- NOTE | 2024-03-01 09:19 | PC.NURSE ---
Addendum entered by Anabela Benavides 03/01/24 12:04: Extremities dusky, poor cap refill Original Note: RT and this RN and Dr Card agreement to take pt off bipap, pt very tachypneic and increased WOB, attempted high flow without improvement. Pt now back on bipap but continues to have increased WOB. ABGs being obtained at this Dr Somers talking to daughter at this time regarding plan, ?intubation
[2024-03-01] MEDS: fentaNYL citrate/PF 100 MCG/2 ML VIAL 50 MCG IVPUSH (09:33)
[2024-03-01 09:36] LABS: ABG Refer to POC result
[2024-03-01 09:37] LABS: ABG Base Excess 12.8 mmol/L; ABG HCO3 40 mmol/L (22-26); ABG pCO2 66 mmHg (32-45); ABG pH 7.39 (7.35-7.45); ABG pO2 54 mmHg (83-108)
--- NOTE | 2024-03-01 09:48 | PC.NURSE ---
Chalk Tester at beside Pt given Fentanyl to assist with breathing/comfort with some effect. Awaiting call back from family at this time to determine plan of care
--- NOTE | 2024-03-01 10:04 | MHC.SLORD ---
Speech Language Pathology Order Status: Pt in ED, currently on bipap d/t decompensation. RN consulted, no concerns with swallow function reported as pt tolerated meds and water. MANAGER FORMS to follow up when pt respiratory status stable.
[2024-03-01 10:21] LABS: Glucose, Whole Blood 246 mg/dL (60-115)
--- NOTE | 2024-03-01 11:21 | PC.NURSE ---
Pt resting and appears more comfortable. awakes easily and asking for water however will defer at this time. BiPAP settings 15/5/70%
[2024-03-01] MEDS: levalbuterol HCL 2.5 MG, Ipratropium Bromide 0.5 MG INHALE ×2 (11:54→15:24)
--- NOTE | 2024-03-01 11:54 | PC.NURSE ---
Family at bedside, speaking with weed eradicator and Dr Card, plan for FILLING SEPARATOR
--- NOTE | 2024-03-01 12:02 | PC.NURSE ---
Pt to remain on Bipap to await family visiting from [place]. Dr Card to d/c PO meds. Pt is awake and alert. POC 230
[2024-03-01 12:07] LABS: Glucose, Whole Blood 230 mg/dL (60-115)
--- NOTE | 2024-03-01 12:42 | P.PNIM_ITS ---
Subjective Subjective Date of Service: 03/01/24 Interval History: This morning patient noted to have hypoxia soon after removal of BiPAP therefore high-flow was placed but within 1 minute, patient noted to have significant respiratory distress with tachypnea tachycardia using accessory muscles for breathing, therefore BiPAP placed back. Review of Systems Unable to obtain due to respiratory distress. Physical Exam 2 Vital Signs: Vital Signs: Last Vital Signs Temp 96.7 F L 03/01/24 06:46 Pulse 56 03/01/24 12:24 Resp 19 03/01/24 12:24 BP 133/63 03/01/24 12:24 Pulse Ox 94 03/01/24 12:24 O2 Del Method BiPAP 03/01/24 09:47 O2 Flow Rate 7 02/29/24 16:33 FiO2 70 03/01/24 09:47 BMI result Body Mass Index 38.2 Const: Other: Gen: Noted to be in respiratory distress, tachypneic, tachycardic sclera anicteric, moist mucus membranes Neck: supple, no JVD Lungs: expiratory rhonchi tachypneic use of abdominal muscles Heart: irregular, no murmurs Abd: soft, non-tender, non-distended Ext: Mild pitting edema Skin: warm/dusky Neuro: alert and oriented x3 Psych: appropriate affect Objective Data Active Medications Acetaminophen (Acetaminophen 325 Mg Tablet) 650 mg PO DAILY PRN PRN Reason: Pain Last Admin: 02/28/24 13:17 Dose: 650 mg Documented By: IQRA Albuterol Sulfate (Albuterol Sulfate 90 Mcg 8 Gm Inhaler) 2 puff INHALE Q6H PRN PRN Reason: sob Albuterol/Ipratropium (Albuterol/Iprat 2.5/0.5mg 3 Ml Ampul.Neb) 3 ml INHALE RQ4H [facility] Last Admin: 02/29/24 11:15 Dose: 3 ml Documented By: DARBY Albuterol/Ipratropium (Albuterol/Iprat 2.5/0.5mg 3 Ml Ampul.Neb) 3 ml INHALE Q4H PRN PRN Reason: Wheezing Last Admin: 03/01/24 07:18 Dose: 3 ml Documented By: CLAYTON Apixaban (Apixaban 5 Mg Tablet) 5 mg PO BID [facility] Last Admin: 03/01/24 08:49 Dose: 5 mg Documented By: ALEKSEY Buprenorphine/Naloxone (Buprenorphine/Naloxone 2/0.5mg Film) 1 film SUBLINGUAL DAILY [facility] Last Admin: 03/01/24 08:59 Dose: 1 film Documented By: ALEKSEY Calcium Carbonate (Calcium Carbonate 750 Mg Tab.Chew) 750 mg PO Q4H PRN PRN Reason: Heartburn Levalbuterol HCl 2.5 mg/ (Ipratropium [place] 0.5 mg) 0 mg INHALE RQ4H WHILE AWAKE [facility] Last Admin: 03/01/24 11:54 Dose: 1 dose Documented By: BUSTER Diltiazem HCl (Diltiazem Hcl Cd 240 Mg Cap.Er.Deg) 240 mg PO DAILY [facility]; Protocol Last Admin: 03/01/24 08:54 Dose: 240 mg Documented By: ALEKSEY Docusate Sodium (Docusate Sodium 100 Mg Capsule) 100 mg PO BEDTIME PRN PRN Reason: stool softener Fentanyl (Fentanyl Citrate/Pf 100 Mcg/2 Ml Vial) 50 mcg IVPUSH Q2H PRN; Protocol PRN Reason: anxiety/restlessness Fluconazole (Fluconazole 100 Mg Tablet) 100 mg PO DAILY [facility] Last Admin: 03/01/24 08:51 Dose: 100 mg Documented By: ALEKSEY Folic Acid (Folic Acid 1 Mg Tablet) 1 mg PO DAILY [facility] Last Admin: 03/01/24 08:52 Dose: 1 mg Documented By: ALEKSEY Furosemide (Furosemide 40 Mg Tablet) 40 mg PO DAILY [facility]; Protocol Last Admin: 03/01/24 08:53 Dose: 40 mg Documented By: ALEKSEY Glucose (Glucose Gel 15 Gm Gel..Gram.) 15 gm PO Q15M PRN; Protocol PRN Reason: per Hypoglycemia Standing Ord. Guaifenesin/Dextromethorphan (Guaifenesin Dm 600/30 1 Tab Tab.Er.12h) 1 tab PO BID [facility] Last Admin: 03/01/24 08:49 Dose: 1 tab Documented By: ALEKSEY Insulin Human Lispro (Insulin Lispro 100 Unit/Ml 3 Ml Vial) 0 unit SUBCUT QIDACHS [facility]; Protocol Last Admin: 03/01/24 12:05 Dose: Not Given Documented By: ALEKSEY Non-Admin Reason: NPO Comments: Pt not eating at this time Levothyroxine Sodium (Levothyroxine Sodium 25 Mcg Tablet) 25 mcg PO DAILY@0600 [facility] Last Admin: 03/01/24 06:21 Dose: 25 mcg Documented By: CHARLES Magnesium Hydroxide (Milk Of Magnesia 30 Ml Oral.Susp) 30 ml PO DAILY PRN PRN Reason: Constipation Magnesium Oxide (Magnesium Oxide 400 Mg Tablet) 400 mg PO DAILY [facility] Last Admin: 03/01/24 08:54 Dose: 400 mg Documented By: ALEKSEY Melatonin (Melatonin 3 Mg Tablet) 6 mg PO BEDTIME PRN PRN Reason: Insomnia Metoprolol Succinate (Metoprolol Succinate Er 50 Mg Tab.Er.24h) 150 mg PO DAILY [facility]; Protocol Last Admin: 03/01/24 08:56 Dose: 150 mg Documented By: ALEKSEY Nicotine (Nicotine 21 Mg Patch.Td24) 21 mg TRANSDERMA DAILY PRN PRN Reason: Smoking Cessation Non-Formulary Medication (Milnacipran [Savella]) 50 mg PO BID [facility] Non-Formulary Medication (Umeclidinium-Vilanterol [Anoro Ellipta]) 1 inhalation INHALE DAILY [facility] Omeprazole (Omeprazole 20 Mg Capsule.Dr) 20 mg PO DAILY@0630 [facility] Last Admin: 03/01/24 06:21 Dose: 20 mg Documented By: CHARLES Ondansetron HCl (Ondansetron Hcl 4 Mg/2 Ml Vial) 4 mg IVPUSH Q8H PRN PRN Reason: Nausea and Vomiting Oxycodone HCl (Oxycodone Hcl Immed Release 5 Mg Tablet) 5 mg PO Q6H PRN PRN Reason: Severe Pain (Scale Score 7-10) Last Admin: 02/28/24 21:46 Dose: 5 mg Documented By: SERA Paroxetine HCl (Paroxetine Hcl 40 Mg Tablet) 40 mg PO BID [facility] Last Admin: 03/01/24 08:50 Dose: 40 mg Documented By: ALEKSEY Potassium Chloride (Potassium Chloride Er 20 Meq Tab.Er.Prt) 20 meq PO DAILY [facility] Last Admin: 02/29/24 09:39 Dose: Not Given Documented By: MAKENZIE Non-Admin Reason: Patient Condition Contraindication Prednisone (Prednisone 20 Mg Tablet) 40 mg PO DAILY [facility] Stop: 03/02/24 09:01 Last Admin: 03/01/24 08:53 Dose: 40 mg Documented By: ALEKSEY Prednisone (Prednisone 10 Mg Tablet) 30 mg PO DAILY [facility] Stop: 03/05/24 09:01 Prednisone (Prednisone 20 Mg Tablet) 20 mg PO DAILY [facility] Stop: 03/08/24 09:01 Prednisone (Prednisone 10 Mg Tablet) 10 mg PO DAILY [facility] Stop: 03/11/24 09:01 Sodium Chloride (0.9 % Sodium Chloride Flush 3 Ml Syringe) 3 ml IVFLUSH QSHIFT [facility] Last Admin: 03/01/24 07:26 Dose: Not Given Documented By: ALEKSEY Non-Admin Reason: IV Running Labs 03/01/24 05:05 03/01/24 05:05 Labs: Laboratory Results - last 24 hr 02/29/24 02/29/24 02/29/24 08:29 10:18 16:50 MCV MCH MCHC RDW Plt Count MPV Immature Gran % (Auto) Neut % (Auto) Lymph % (Auto) Grimes % (Auto) Eos % (Auto) Baso % (Auto) Lymph # (Auto) Grimes # (Auto) Eos # (Auto) Baso # (Auto) Abs Immat Gran (auto) Absolute Neuts (auto) Absolute Nucleated RBC Nucleated RBC % (auto) Smear Tech's Comments Smear Path Review SEE NOTE O2 Saturation ABG pH at Pt Temp ABG pCO2 at Pt Temp ABG pO2 at Pt Temp ABG HCO3 ABG Base Excess (Actual) Anion Gap Estim Creat Clear Calc Estimated GFR POC Glucose 289 H Random Glucose Calcium Respiratory Panel Driscoll See Note Adenovirus (Rapid PCR) Not Detected B.pert (TEM-PCR) Not Detected B.parapertussis DNA PCR Not Detected C. pneumoniae DNA (PCR) Not Detected Coronavirus OC43 (PCR) Not Detected Coronavirus HKU1 (PCR) Not Detected Coronavirus 229E (PCR) Not Detected Coronavirus NL63 (PCR) Not Detected Human Metapneumovir PCR Detected A Influenza A (RT-PCR) Not Detected Influenza B (RT-PCR) Not Detected M. pneumoniae (PCR) Not Detected Parainfluenza 1 (PCR) Not Detected Parainfluenza 2 (PCR) Not Detected Parainfluenza 3 (PCR) Not Detected Parainfluenza 4 (PCR) Not Detected RSV (PCR) Not Detected Entero/Rhino (PCR) Not Detected SARS-CoV-2 RNA (RT-PCR) Not Detected 02/29/24 03/01/24 03/01/24 21:51 05:05 07:09 MCV 92.8 MCH 30.3 MCHC 32.7 RDW 15.3 Plt Count 72 L MPV 11.3 Immature Gran % (Auto) 2.0 H Neut % (Auto) 89.9 H Lymph % (Auto) 3.4 L Grimes % (Auto) 4.4 Eos % (Auto) 0.0 Baso % (Auto) 0.3 Lymph # (Auto) 0.4 L Grimes # (Auto) 0.5 Eos # (Auto) 0.0 Baso # (Auto) 0.0 Abs Immat Gran (auto) 0.23 H Absolute Neuts (auto) 10.2 H Absolute Nucleated RBC 0.060 H Nucleated RBC % (auto) 0.5 H Smear Tech's Comments VERIFIED Smear Path Review O2 Saturation ABG pH at Pt Temp ABG pCO2 at Pt Temp ABG pO2 at Pt Temp ABG HCO3 ABG Base Excess (Actual) Anion Gap 16 Estim Creat Clear Calc 55.6 Estimated GFR 44 POC Glucose 264 H 222 H Random Glucose 236 H Calcium 9.5 Respiratory Panel Driscoll Adenovirus (Rapid PCR) B.pert (TEM-PCR) B.parapertussis DNA PCR C. pneumoniae DNA (PCR) Coronavirus OC43 (PCR) Coronavirus HKU1 (PCR) Coronavirus 229E (PCR) Coronavirus NL63 (PCR) Human Metapneumovir PCR Influenza A (RT-PCR) Influenza B (RT-PCR) M. pneumoniae (PCR) Parainfluenza 1 (PCR) Parainfluenza 2 (PCR) Parainfluenza 3 (PCR) Parainfluenza 4 (PCR) RSV (PCR) Entero/Rhino (PCR) SARS-CoV-2 RNA (RT-PCR) 03/01/24 03/01/24 03/01/24 09:31 10:07 12:00 MCV MCH MCHC RDW Plt Count MPV Immature Gran % (Auto) Neut % (Auto) Lymph % (Auto) Grimes % (Auto) Eos % (Auto) Baso % (Auto) Lymph # (Auto) Grimes # (Auto) Eos # (Auto) Baso # (Auto) Abs Immat Gran (auto) Absolute Neuts (auto) Absolute Nucleated RBC Nucleated RBC % (auto) Smear Tech's Comments Smear Path Review O2 Saturation 85.0 ABG pH at Pt Temp 7.39 ABG pCO2 at Pt Temp 66 H* ABG pO2 at Pt Temp 54 L ABG HCO3 40 H ABG Base Excess (Actual) 12.8 Anion Gap Estim Creat Clear Calc Estimated GFR POC Glucose 246 H 230 H Random Glucose Calcium Respiratory Panel Driscoll Adenovirus (Rapid PCR) B.pert (TEM-PCR) B.parapertussis DNA PCR C. pneumoniae DNA (PCR) Coronavirus OC43 (PCR) Coronavirus HKU1 (PCR) Coronavirus 229E (PCR) Coronavirus NL63 (PCR) Human Metapneumovir PCR Influenza A (RT-PCR) Influenza B (RT-PCR) M. pneumoniae (PCR) Parainfluenza 1 (PCR) Parainfluenza 2 (PCR) Parainfluenza 3 (PCR) Parainfluenza 4 (PCR) RSV (PCR) Entero/Rhino (PCR) SARS-CoV-2 RNA (RT-PCR) Microbiology Microbiology Results: Microbiology 02/24/24 21:27 Blood Culture - Final Blood - Venous No growth after 5 days. 02/24/24 21:20 Blood Culture - Final Blood - Venous No growth after 5 days. Assessment and Plan (1) Acute and chronic respiratory failure with hypoxia: Status: Acute Plan 63-year-old female with past medical history of non-small cell lung cancer status post left upper lobe/right upper lobe lobectomies with Mets on palliative chemotherapy, breast cancer, depression, hepatitis-C, hypertension, CHF EF 60- 65% COPD with chronic respiratory failure on 3 L of oxygen at home, nighttime CPAP, AFib on Eliquis was sent to [place] [facility] from [facility] since noted to have significant hypoxia without O2 and her nighttime CPAP, was placed under physician observation and ED waiting for rehab bed since and noted to have multiple episodes of aspiration placed on by mouth Augmentin for possible aspiration pneumonia and Diflucan for oral thrush, Subsequently admitted to medical floor on 02/28 due to recurrent episodes of respiratory decompensation and treatment for pneumonia. Acute on chronic hypercapnic and hypoxic respiratory failure multifactorial due to COPD, chronic diastolic heart failure, aspiration pneumonia, history of underlying cancer Patient noted to have significant decompensation this a.m. with significant respiratory distress with tachypnea, labored breathing, tachycardia and profound hypoxia. 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 Family wishes hospice care at home cm notified. Will discontinue all lab draws and by mouth medications. mild VIKTORIYA resolved with hydration. LLE edema no DVT on Doppler study. Chronic AFib - dc diltiazem and Eliquis. Chronic diastolic CHF dc all meds Hypothyroidism dc levothyroxine Stage IV non-small cell lung cancer MOLST form sign patient DNR DNI do not hospitalize Quality Stroke Does the patient have a stroke diagnosis?: No VTE Prior VTE?: No VTE Risk Level:: Medical - moderate - high VTE Device Contraindication: Treatment Not Indicated VTE Drug Contraindication: N/A - Med Ordered
--- NOTE | 2024-03-01 15:24 | PC.NURSE ---
patient alert and oriented. Remaining on bipap, awaiting family visiting from [place].
[2024-03-01] MEDS: Scopolamine 1.5 MG PATCH.TD.3 EAR-BEHIND (18:56)
[2024-03-01] MEDS: LORazepam 2 MG/ML VIAL IVPUSH ×3 (20:03→22:00)
[2024-03-01] MEDS: Morphine Sulfate 2 MG/ML CARTRIDGE 4 MG IVPUSH ×6 (20:03→23:00)
--- NOTE | 2024-03-02 00:05 | PM.EVENT ---
Event Note Date of Service: 03/02/24 Event Note: I was called to patient's bedside to pronounce the patient. No spontaneous movements were present. There was no response to verbal or tactile stimulus. Pupils were mid dilated and fixed. No breath sounds were appreciated over either lung field. No carotid pulses were palpable. No heart sounds were auscultated over entire precordium. Patient was on comfort measures only. Patient pronounced on 03/01/2024 at 23:32. Condolences offered to family member at bedside. certificate completed Time Spent With Patient Time: Total time managing care of this patient today ____ minutes.
--- NOTE | 2024-03-02 11:33 | P.DS_ITS ---
DS: Providers Provider Date of Service: 03/01/24 Date of admission: 02/29/24 11:33 Primary care physician: Daphne Rodriguez MD Consults: 02/29/24 11:44 Consult to Gastroenterology Routine Consulting Provider: Efrain Centeno Reason for consultation: aspiration episodes ?dyphagia or esophageal candidia Has provider been notified: No DS: Diagnosis Discharge Diagnosis (1) Acute and chronic respiratory failure with hypoxia: Status: Acute DS: Summary Hospital Course Hospital Course: From the admission HPI: 63 yo female with PMH of NSC lung cancer (s/p LITA/RUL lobectomies) with mets on palliative chemotherapy, breast cancer, depression, hepatitis-C, HTN, CHF , EF 60-65%, COPD with chronic respiratory failure on 3 L O2 at home not compliant with nighttime CPAP, Afib on eliquis recent admit here for COPD/afib with RVR on dilt gtt. She was sent to [facility] today from inpatient, discharged 02/23 - she was trying to sleep and no O2 was on and no nightime CPAP - found to be 73% on RA by staff - they tried her 3L NC, then NRB without help. EMS placed her on bipap and gave 125mg solumedrol - on arrival patient was not in distress, she stated she is not going back there as she was not on her oxygen. She has been monitored and awaiting a bed in the ED since 02/23, has had multiple episodes of aspiration. She also complains of mouth pain. Mild chronic chest pain, mild wheezing. no fever, chills,nausea, vomiting or abd pain. Hospital course: Patient was admitted to the hospital for acute on chronic hypercapnic and hypoxic respiratory failure secondary to COPD with acute decompensation in the setting of stage IV [id number] cancer and noncompliance with O2 at SNF. Hospital course was complicated by multiple aspiration episodes in the emergency department, as well as severe decompensation yesterday morning with significant respiratory distress with tachypnea, labored breathing, tachycardia, and profound hypoxia. Patient failed treatment with high-flow and was placed on BiPAP and fentanyl 50 mcg x1. 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 Pt initially was kept on BiPAP until her son arrived from [place] approximately 6 hours later. BiPAP was removed and patient was kept comfortable with fentanyl, morphine, Ativan, and scopolamine. Patient on 03/01/2024 and 23:32 with family at bedside. Time Attestation Discharge Coordination Time (in mins): 13 minutes Quality: Safe Use of Opioids Does Pt have an Active Cancer Diagnosis on the Problem List?: Yes Opioid Measure Date for [facility] Report: 02/01/24 Opioid Measure Time for [facility] Report: 11:46 Quality: Stroke Does the patient have a stroke diagnosis?: No Physical Exam Vital Signs: Vital Signs: Last Vital Signs Temp 96.7 F L 03/01/24 06:46 Pulse 56 03/01/24 15:30 Resp 26 H 03/01/24 16:00 BP 133/63 03/01/24 12:24 Pulse Ox 94 03/01/24 12:24 O2 Del Method BiPAP 03/01/24 09:47 O2 Flow Rate 7 02/29/24 16:33 FiO2 70 03/01/24 09:47 BMI result Body Mass Index 38.2 Pt DS: Data Data Completed and Pending Completed studies during hospitalization [Text1]: Procedures Drainage of Left Pleural Cavity, Percutaneous Approach (07/09/23) Inspection of Lower Intestinal Tract, Via Natural or Artificial Opening Endoscopic (12/01/23) Transfusion of Nonautologous Platelets into Peripheral Vein, Percutaneous Approach (01/24/22) Transfusion of Nonautologous Red Blood Cells into Peripheral Vein, Percutaneous Approach (02/18/22) Labs on day of discharge: Laboratory Results - last 24 hr 03/01/24 12:00 POC Glucose 230 H Discharge Plan Discharge Date/Time: 03/01/24 23:32 Patient Disposition: Discharge Diagnosis: Referrals: Daphne Rodriguez MD [Primary Care Provider] - 1 Week Discharge Medications: No Action levothyroxine [Synthroid] 25 mcg tablet 25 mcg PO DAILY@0600 0RF potassium chloride [K-Tab] 20 mEq Tablet Extended Release 20 meq PO DAILY Qty: 30 0RF folic acid 1 mg tablet 1 mg PO DAILY Qty: 90 3RF paroxetine HCl 20 mg tablet 40 mg PO BID omeprazole 20 mg capsule,delayed release(DR/EC) 20 mg PO DAILY@0630 Savella 50 mg tablet 50 mg PO BID simvastatin 20 mg Tablet 20 mg PO BEDTIME docusate sodium 100 mg capsule 100 mg PO BEDTIME PRN (Reason: stool softener) Anoro Ellipta 62.5-25 mcg/actuation blister with device 1 inh INHALATION DAILY ipratropium-albuterol 0.5 mg-3 mg(2.5 mg base)/3 mL solution for nebulization 3 ml inhalation Q6H PRN (Reason: wheezing) acetaminophen 500 mg Tablet 500 mg PO DAILY PRN (Reason: Pain) Eliquis 5 mg Tablet 5 mg PO BID Qty: 60 0RF buprenorphine-naloxone [Suboxone] 2-0.5 mg film 1 film sublingual DAILY Qty: 14 0RF buprenorphine-naloxone [Suboxone] 2-0.5 mg film 1 film sublingual DAILY PRN (Reason: Pain) Qty: 14 0RF prednisone 10 mg tablet 10 - 50 mg PO DIRECTED Rx Instructions: 5 tablets by mouth daily x 3 days, 4 tablets daily x 3 days, 3 tablets daily x 3 days, 2 tablets daily x 3 days and then 1 tablet daily x 3 days oxycodone 5 mg Tablet 5 mg PO Q6H PRN (Reason: Severe Pain (Scale Score 7-10)) furosemide 40 mg tablet 40 mg PO DAILY nicotine 21 mg/24 hr patch 24 hour 21 mg transdermal DAILY PRN (Reason: Smoking Cessation) Mucus DM 30-600 mg Tablet Extended Release 12 Hr 1 tab PO BID Qty: 20 0RF magnesium oxide 400 mg magnesium tablet 400 mg PO DAILY Qty: 90 0RF metoprolol succinate 50 mg Tablet Extended Release 24 Hr 150 mg PO DAILY Qty: 45 0RF Protocol: Hold for SBP/HR < HOLD for SBP < : 90 HOLD for HR < : 60 diltiazem HCl 240 mg Capsule,Extended Release 24hr 240 mg PO DAILY Qty: 30 0RF Protocol: Hold for SBP/HR < HOLD for SBP < : 90 HOLD for HR < : 60 albuterol sulfate [Ventolin HFA] 90 mcg/actuation HFA aerosol inhaler 2 puff inhalation Q6H PRN (Reason: sob) Print Language: Citizen [place] Discharge Date/Time: 03/02/24 05:56
== END 2024-03-02 05:56 | disposition expired | DRG 862 ==
LOC: HO.ED 02-29 09:51 → HO.EDOVER 02-29 11:40 → HO.IMC 03-01 12:16
PROVIDERS: Physician Assistant; Physician Assistant Medical; Admitting Provider Physician Assistant; Emergency Provider Emergency Medicine; PCP Pediatrics; Visit Provider Hospitalist
DX: Z51.5 Encounter for palliative care (principal); J96.21 Acute and chronic respiratory failure with hypoxia; J69.0 Pneumonitis due to inhalation of food and vomit; N17.9 Acute kidney failure, unspecified; C79.51 Secondary malignant neoplasm of bone; B37.0 Candidal stomatitis; J44.1 Chronic obstructive pulmonary disease with (acute) exacerbation; C34.12 Malignant neoplasm of upper lobe, left bronchus or lung; C34.11 Malignant neoplasm of upper lobe, right bronchus or lung; I50.32 Chronic diastolic (congestive) heart failure; I11.0 Hypertensive heart disease with heart failure; Z99.81 Dependence on supplemental oxygen; J96.22 Acute and chronic respiratory failure with hypercapnia; C79.31 Secondary malignant neoplasm of brain; Z20.822 Contact with and (suspected) exposure to COVID-19; E03.9 Hypothyroidism, unspecified; Z90.2 Acquired absence of lung [part of]; I48.20 Chronic atrial fibrillation, unspecified; Z91.199 Patient's noncompliance with other medical treatment and regimen due to unspecified reason; Z85.3 Personal history of malignant neoplasm of breast; Z87.891 Personal history of nicotine dependence; Z79.01 Long term (current) use of anticoagulants; Z79.52 Long term (current) use of systemic steroids; Z79.890 Hormone replacement therapy; Z79.899 Other long term (current) drug therapy
CPT/HCPCS: 0241U; 36415; 36600; 71045; 71250; 80048; 80053; 80076; 82803; 82947; 83036; 83605; 83735; 83880; 84484; 85025; 87040; 87633; 92610; 93000; 93971; 94640; 94660; 99285; J0696; J1450; J1956; J2060; J2270; J2919; J3010; J3475; J7120

== ENCOUNTER → 2024-02-29 11:33 | Outpatient (BNV) | payer MEDICAID, SELFPAY | PROVIDERS: Admitting Provider Physician Assistant; Emergency Provider Emergency Medicine; PCP Pediatrics; Visit Provider Physician Assistant | DX: J96.21 Acute and chronic respiratory failure with hypoxia (principal); J96.22 Acute and chronic respiratory failure with hypercapnia | CPT/HCPCS: 99232; 99233; 99499 ==

== ENCOUNTER → 2024-02-29 11:33 | Outpatient (BNV) | payer MEDICAID, SELFPAY | PROVIDERS: Admitting Provider Physician Assistant; Emergency Provider Emergency Medicine; PCP Pediatrics; Visit Provider Internal Medicine Gastroenterology | DX: J96.21 Acute and chronic respiratory failure with hypoxia (principal) | CPT/HCPCS: 99223 ==